=== PATIENT | female | born 1955 | race Caucasian/White ===

== ENCOUNTER 2017-10-19 19:18 | Observation (INO) | payer OTHER ==
[2017-10-19] MEDS ORDERED: ONDANSETRON 4 MG/2 ML VIAL ONE (19:51)
[2017-10-19] MEDS ORDERED: NA CHLORIDE 0.9% 500 ML ONE (19:51)
[2017-10-19] MEDS ORDERED: FENTANYL CITR 100 MCG/2 ML ONE (19:51)
[2017-10-19] MEDS ORDERED: NA CHLORIDE 0.9% 1,000 ML ONE (19:51)
[2017-10-19 19:58] LABS: Absolute Lymphocytes (CBC) 1.2 K/uL (0.7-4.9); Absolute Monocytes 0.6 K/uL (0.1-1.3); Absolute Neutrophil 6.7 K/uL (1.8-8.0); Basophils % 0.5 % (0-1.3); Eosinophils % 3.9 % (0-4.4); Hematocrit 38.3 % (36.0-45.0); MCH 30.2 pg (27.0-35.0); MPV 9.6 fL (7.6-11.3); Monocytes % 6.3 % (3.3-12.3); RBC Red Blood Cell Count 4.25 M/uL (3.86-4.86)
[2017-10-19 20:18] LABS: Albumin 3.4 g/dL (3.4-5.0); Bilirubin Direct 0.1 mg/dL (0-0.2); Bilirubin Total 0.5 mg/dL (0.2-1.0); Potassium 3.2 mmol/L (3.5-5.1)
--- NOTE | 2017-10-19 21:14 | RAD REPORT ---
EXAM DESCRIPTION: CT - Abdomen Pelvis Wo Contrast - 10/19/2017 9:06 pm CLINICAL HISTORY: Abdominal pain COMPARISON: None. TECHNIQUE: Axial [address] imaging of the abdomen and pelvis was performed without IV contrast. No IV contrast was given because of allergy, abnormal renal function, patient refusal or physician re quest. Oral contrast was given. All CT scans are performed using dose optimization technique as appropriate and may include automated exposure control or mA/KV adjustment according to patient size. FINDINGS: No suspicious findings in the lung bases. The liver, spleen and pancreas show no suspicious findings on non-contrast imaging. Gallbladder and b iliary tree are also without suspicious finding. No hydronephrosis or suspicious renal mass. No significant adrenal finding. Isodense renal masses an d pyelonephritis cannot be excluded in the absence of IV contrast. Partially filled urinary bladder s hows no suspicious finding. Patient gives history of pain related to urinary catheter. No catheter is visualized. Uterus and ovaries within normal limits. Lap band is in place. No dilated bowel loops or bowel wall thickening. No acute GI process seen. No f ree air, free fluid or inflammatory stranding. No hernia, mass or bulky lymphadenopathy. Pelvic floor laxity is present. No suspicious bony findings. IMPRESSION: Non-contrast enhanced CT abdomen and pelvis imaging show no significant or suspicious fi nding. Patient gives a history of urinary catheter related pain. No catheter is visible on this examination. Full assessment is limited is the absence of IV contrast.
[2017-10-19 22:32] LABS: Urine Amorphous Sediment 2+ /HPF (NONE SEEN); Urine Bacteria <20 /HPF (<20); Urine Culture Reflex Order REFLEXED; Urine RBC <5 /HPF (NONE SEEN)
[2017-10-19 22:34] LABS: Urine Blood 3+ (NEG); Urine Glucose NEGATIVE (NEG); Urine Protein 2+ (NEG); Urine Specific Gravity 1.015 (1.005-1.030); Urine pH 7.5 (5.0-7.0)
[2017-10-19] MEDS ORDERED: POTASSIUM 25 MEQ EFFERV TAB ONE (22:35)
--- NOTE | 2017-10-19 23:35 | EDPHYS ---
Physician Documentation [facility] Name: Jv Bryant Age: 62 yrs Sex: Female : 1955 Arrival Date: 10/19/2017 Time: 19:23 Bed 20 Private MD: ED Physician Elio Howard HPI: 10/19 19:35 This 62 yrs old Female presents to ER via EMS with complaints of Urinary cp Problem. 19:35 The patient presents with pelvic pain, that is located in/on the suprapubic area. cp 19:35 Onset: The symptoms/episode began/occurred today. Associated signs and symptoms: cp Pertinent positives: intermediate designer Pedroza in place, Pertinent negatives: constipation, diarrhea, fever, vomiting. Severity of symptoms: in the emergency department the symptoms are unchanged, despite home interventions. 19:35 Patient reports having recent UA by home health but unsure of results. cp Historical: - Allergies: 20:09 aloe vera; bs1 20:09 FLU VACCINE; bs1 20:09 peppers; bs1 20:09 Iodine; bs1 20:09 Betadine; bs1 20:09 Augmentin; bs1 20:09 Bactrim; bs1 20:09 Celery (Apium Graveolens) (Umbelliferae); bs1 20:09 Lincocin; bs1 20:09 mycin; bs1 20:09 Pneumovax 23; bs1 20:09 Sulfa (Sulfonamide Antibiotics); bs1 20:09 Rocephin; bs1 20:09 Stelazine; bs1 20:09 Vancomycin; bs1 - Home Meds: 20:09 vitamin B12 IM twice a month [Active]; Potassium Chloride Oral once daily [Active]; bs1 docusate sodium 100 mg Oral tab 2 tabs once daily for constipation [Active]; gabapentin 600 mg Oral tab 1 tab 2 times a day for Neuropathic Pain [Active]; lovastatin 20 mg Oral tab once daily [Active]; 20:09 aspirin 81 mg Oral chew 1 tab once daily [Active]; bs1 - PMHx: 20:09 Chronic pain; Fibromyalgia; lymphedema; PERIPHERAL NEUROPATHY; Arthritis; bs1 Hyperlipidemia; Hypertension; COPD; insomnia; heart disease- unspecified; frequent UTI's; unspecified kidney failure; - PSHx: 20:09 None; bs1 - Immunization history:: Adult Immunizations up to date. - Social history:: Smoking status: Patient/guardian denies using tobacco. - Ebola Screening: : Patient negative for fever greater than or equal to 101.5 degrees Fahrenheit, and additional compatible Ebola Virus Disease symptoms Patient denies exposure to infectious person. ROS: 19:40 Constitutional: Negative for fever, poor PO intake. cp 19:40 Eyes: Negative for injury, pain, redness, and discharge. cp 19:40 ENT: Negative for drainage from ear(s), ear pain, sore throat, difficulty swallowing, difficulty handling secretions. 19:40 Cardiovascular: Positive for edema, Negative for chest pain, palpitations. 19:40 Respiratory: Negative for cough, shortness of breath, wheezing. 19:40 Abdomen/GI: Negative for abdominal pain, vomiting, diarrhea, constipation, black/tarry stool, rectal bleeding. 19:40 : Positive for suprapubic pain. 19:40 Neuro: Negative for altered mental status, headache. 19:40 All other systems are negative. Exam: 19:47 Constitutional: The patient appears in no acute distress, alert, awake, cp non-diaphoretic, non-toxic, well developed, well nourished, uncomfortable, morbid obesity 19:47 Head/Face: Normocephalic, atraumatic. cp 19:47 Eyes: Periorbital structures: appear normal, Pupils: equal, round, and reactive to light and accomodation, Extraocular movements: intact throughout, Conjunctiva: normal, no exudate, no injection, Sclera: no appreciated abnormality, Lids and lashes: appear normal, bilaterally. 19:47 ENT: External ear(s): are unremarkable, Nose: is normal, Mouth: Lips: moist, Oral mucosa: moist, Posterior pharynx: is normal, airway is patent, no erythema, no exudate. 19:47 Chest/axilla: Inspection: normal, Palpation: is normal, no crepitus, no tenderness. 19:47 Cardiovascular: Rate: normal, Rhythm: regular, Edema: pedal edema, that is marked, ankle edema, that is marked. 19:47 Respiratory: the patient does not display signs of respiratory distress, Respirations: normal, no use of accessory muscles, no retractions, no splinting, no tachypnea, Breath sounds: are clear throughout, no decreased breath sounds, no stridor, no wheezing. 19:47 Abdomen/GI: Inspection: obese Bowel sounds: active, all quadrants, Palpation: soft, in all quadrants, severe abdominal tenderness, in the suprapubic area, rebound tenderness, is not appreciated, voluntary guarding, is elicited in the suprapubic area. 19:47 Skin: chronic wounds noted bilateral lower extremities with lymphedema, no streaking erythema noted, moderate drainage . 19:47 Neuro: Orientation: to person, place \T\ time. Mentation: lucid, able to follow commands. Vital Signs: 19:25 BP 153 / 81; Pulse 82; Resp 20; Temp 98(T); Pulse Ox 100% on R/A; Weight 145.15 kg; bs1 Height 5 ft. 4 in. (162.56 cm); Pain 10/10; 20:25 BP 137 / 99; Pulse 69; Resp 16; Pulse Ox 95% on R/A; bs1 21:25 BP 123 / 95; Pulse 75; Resp 15 S; Pulse Ox 100% ; bs1 22:25 BP 112 / 71; Pulse 87; Resp 16; Pulse Ox 98% on 2 lpm NC; bs1 23:25 BP 140 / 71; Pulse 79; Resp 16 S; Pulse Ox 98% on 2 lpm NC; bs1 08 00:00 BP 133 / 61; Pulse 82; Resp 16 S; Pulse Ox 99% on 2 lpm NC; bs1 00:23 BP 126 / 59; Pulse 74; Resp 16; Temp 98(T); Pulse Ox 98% on 2 lpm NC; Pain 4/10; bs1 10/19 19:25 Body Mass Index 54.93 (145.15 kg, 162.56 cm) bs1 MDM: 10/19 19:28 Patient medically screened. cp 20:00 Differential diagnosis: urinary tract infection, vaginosis, sepsis kidney stone. cp 23:10 Data reviewed: vital signs, nurses notes, lab test result(s), radiologic studies, CT cp scan. 23:10 Counseling: I had a detailed discussion with the patient and/or guardian regarding: the cp historical points, exam findings, and any diagnostic results supporting the discharge/admit diagnosis, lab results. Response to treatment: the patient's symptoms have markedly improved after treatment. 23:20 ED course: VSS. Family requesting patient be admitted for continued treatment. cp 08/ 19:29 Order name: Urine Microscopic Only; Complete Time: 22:50 cp 08/12 22:51 Interpretation: Normal except: UWBC 20-50; AMORPH 2+. cp 08/12 19:35 Order name: Amylase, Serum; Complete Time: 21:02 cp 08/12 19:35 Order name: Basic Metabolic Panel; Complete Time: 21:02 cp 08/12 21:03 Interpretation: Normal except: K 3.2; GLUC 110; GFR 63. cp 08/12 19:35 Order name: CBC with Diff; Complete Time: 21:02 cp 08/12 21:03 Interpretation: Normal except: RDW 15.9; SANTY% 75.3; LYM% 14.0. cp 08/12 19:35 Order name: Creatinine for Radiology; Complete Time: 21:02 cp 08/12 19:35 Order name: Hepatic Function; Complete Time: 21:02 cp 08/12 22:51 Interpretation: Normal except: GLOB 4.6; A/G 0.7. cp 08/12 19:35 Order name: Lipase; Complete Time: 21:02 cp 08/12 22:25 Order name: Urine Dipstick--Ancillary (enter results); Complete Time: 22:50 ms 08/ 22:51 Interpretation: Normal except: UBLD 3+; UPH 7.5; UPROT 2+; UESTR 3+. cp 08/12 22:33 Order name: Urine Culture EDMS 08 23:51 Order name: Basic Metabolic Panel EDMS 08 23:51 Order name: Basic Metabolic Panel EDKY 10/19 23:51 Order name: CBC with Automated Diff EDMS / 23:51 Order name: CBC with Automated Diff EDMS 08/12 19:29 Order name: Urine Dipstick-Ancillary (obtain specimen); Complete Time: 23:09 cp 08/12 19:35 Order name: IV Saline Lock; Complete Time: 19:52 cp 08/12 19:35 Order name: Labs collected and sent; Complete Time: 19:52 cp 08/12 19:35 Order name: Bladder Scanner: pre and post void; Complete Time: 19:51 cp 08/12 21:02 Order name: Abdomen ; Complete Time: 21:28 EDMS 08/12 23:51 Order name: [facility] 10/19 23:51 Order name: Consistent Carb (ADA) [address] EDKY Administered Medications: 20:28 Drug: fentaNYL (PF) 50 mcg Route: IVP; Site: right forearm; bs1 10/20 00:01 Follow up: Response: No adverse reaction bs1 10/19 20:28 Drug: Zofran 4 mg Route: IVP; Site: right forearm; bs1 10/20 00:01 Follow up: Response: No adverse reaction bs1 10/19 20:28 Drug: NS 0.9% 500 ml Route: IV; Rate: bolus; Site: right forearm; bs1 10/20 00:45 Follow up: IV Status: Completed infusion bs1 10/19 22:55 Drug: Potassium Effervescent Tablet 50 mEq Route: PO; bs1 10/20 00:01 Follow up: Response: No adverse reaction [facility] 10/19 22:56 Drug: NS 0.9% 1000 ml Route: IV; Rate: 100 ml/hr; Site: right forearm; bs1 10/20 00:45 Follow up: IV Status: Infusion continued upon admission bs1 10/19 23:48 Drug: Doxycycline 100 mg Route: PO; bs1 10/20 00:01 Follow up: Response: No adverse reaction 1 Disposition: 10/19/17 23:33 Hospitalization ordered by Teddy Mendenhall for Observation. Preliminary diagnosis are Urinary tract infection, site not specified, Chronic Wounds Lower Extremities. - Bed requested for Telemetry/MedSurg (observation). - Status is Observation. bs1 - Condition is Stable. - Problem is new. - Symptoms have improved. UTI on Admission? Yes Signatures: Dispatcher [employer] [facility] Taylor Dumont RN RN Pascual Gomez PA PA cp Salazar, Brittany RN RN bs1 Corrections: (The following items were deleted from the chart) 10/19 21:02 19:50 Abdomen Pelvis W Con+CT.RAD.BRZ ordered. [facility] 10/20 00:16 08 23:33 Hospitalization Ordered by Teddy Mendenhall MD for Observation. Preliminary diagnosis kl is Urinary tract infection, site not specified; Chronic Wounds Lower Extremities. Bed requested for Telemetry/MedSurg (observation). Status is Observation. Condition is Stable. Problem is new. Symptoms have improved. UTI on Admission? Yes. cp 10/20 00:46 00:16 10/19/2017 23:33 Hospitalization Ordered by A Za CHOU for Observation. bs1 Preliminary diagnosis is Urinary tract infection, site not specified; Chronic Wounds Lower Extremities. Bed requested for Telemetry/MedSurg (observation). Status is Observation. Condition is Stable. Problem is new. Symptoms have improved. UTI on Admission? Yes. kl
--- NOTE | 2017-10-19 23:35 | ER ---
Nurse's Notes [facility] Name: Jv Bryant Age: 62 yrs Sex: Female : 1955 Arrival Date: 10/19/2017 Time: 19:23 Bed 20 Private MD: Diagnosis: Urinary tract infection, site not specified;Chronic Wounds Lower Extremities Presentation: 10/19 19:23 Presenting complaint: EMS states: "Patient c/o pain where her urinary catheter is, bs1 states she went to see her Dr a week ago and they took cultures, patient c/o pain that became worse this afternoon.". Transition of care: patient was not received from another setting of care. Onset of symptoms was October 19, 2017. Risk Assessment: Do you want to hurt yourself or someone else? Patient reports no desire to harm self or others. Initial Sepsis Screen: Does the patient meet any 2 criteria? No. Patient's initial sepsis screen is negative. Does the patient have a suspected source of infection? Yes: Catheter related infection (Mariee/dialysis/PICC/central line). Care prior to arrival: None. 19:23 Method Of Arrival: EMS: [facility] bs1 19:23 Acuity: SKYLER 3 bs1 Historical: - Allergies: 20:09 aloe vera; bs1 20:09 FLU VACCINE; bs1 20:09 peppers; bs1 20:09 Iodine; bs1 20:09 Betadine; bs1 20:09 Augmentin; bs1 20:09 Bactrim; bs1 20:09 Celery (Apium Graveolens) (Umbelliferae); bs1 20:09 Lincocin; bs1 20:09 mycin; bs1 20:09 Pneumovax 23; bs1 20:09 Sulfa (Sulfonamide Antibiotics); bs1 20:09 Rocephin; bs1 20:09 Stelazine; bs1 20:09 Vancomycin; bs1 - Home Meds: 20:09 vitamin B12 IM twice a month [Active]; Potassium Chloride Oral once daily [Active]; bs1 docusate sodium 100 mg Oral tab 2 tabs once daily for constipation [Active]; gabapentin 600 mg Oral tab 1 tab 2 times a day for Neuropathic Pain [Active]; lovastatin 20 mg Oral tab once daily [Active]; 20:09 aspirin 81 mg Oral chew 1 tab once daily [Active]; bs1 - PMHx: 20:09 Chronic pain; Fibromyalgia; lymphedema; PERIPHERAL NEUROPATHY; Arthritis; bs1 Hyperlipidemia; Hypertension; COPD; insomnia; heart disease- unspecified; frequent UTI's; unspecified kidney failure; - PSHx: 20:09 None; bs1 - Immunization history:: Adult Immunizations up to date. - Social history:: Smoking status: Patient/guardian denies using tobacco. - Ebola Screening: : Patient negative for fever greater than or equal to 101.5 degrees Fahrenheit, and additional compatible Ebola Virus Disease symptoms Patient denies exposure to infectious person. Screenin:45 Abuse screen: Denies threats or abuse. Denies injuries from another. Nutritional bs1 screening: No deficits noted. Tuberculosis screening: No symptoms or risk factors identified. Fall Risk No fall in past 12 months (0 pts). No secondary diagnosis (0 pts). IV access (20 points). Ambulatory Aid- None/Bed Rest/Nurse Assist (0 pts). Gait- Weak (10 pts.). Mental Status- Oriented to own ability (0 pts). Total Garcia Fall Scale indicates Low Risk Score (25-44 pts). Assessment: 19:30 General: Appears in no apparent distress. uncomfortable, ill, obese, Behavior is bs1 cooperative, anxious, crying. Pain: Complains of pain in urethra area Pain does not radiate. Neuro: Level of Consciousness is awake, alert, obeys commands, Oriented to person, place, time, situation, Facial symmetry appears normal, Pupils are PERRLA. Cardiovascular: Denies chest pain, shortness of breath, Heart tones S1 S2 present Capillary refill < 3 seconds Patient's skin is warm and dry. Respiratory: Airway is patent Trachea midline Respiratory effort is even, unlabored, Respiratory pattern is regular, symmetrical, Breath sounds are clear bilaterally. GI: Reports nausea. : Mariee in place to gravity drainage Urine is cloudy, yellow, foamy, malodorous, w/ sediment Reports incontinence, pain in urethral area. EENT: No signs and/or symptoms were reported regarding the EENT system. Derm: Skin has skin tears on lower back Wound noted Other: right/left lower leg. Patients bilateral legs wrapped in kerlix, minimal draiange noted bilateral lower leg lymphedema. Musculoskeletal: Circulation, motion, and sensation intact. 20:00 Reassessment: verbal order from PA to remove mariee/replace. Removed previous mariee that bs1 was inserted by home health. Patient c/o severe pain in vaginal/urethral area. Removed 24cc NS from balloon to deflate. Patient tolerated. 20:35 Reassessment: Patients oxygen saturation dropped to 80% on room air after administering bs1 50mcg of fentanyl. Patient pale/lethargic. Administered 2L NC. NS fluids infusing. Patient arousable and communicating with nurse after administering oxygen. Oxygen sat went up to 96% on 2 L NC. 21:45 Reassessment: Patient appears in no apparent distress at this time. Patient and/or bs1 family updated on plan of care and expected duration. Pain level reassessed. Patient is alert, oriented x 3, equal unlabored respirations, skin warm/dry/pink. Informed patient and family of pending lab work/CT scan results. 22:15 Reassessment: Informed PA Page that family does not want him as the patients provider. bs1 Patient appears/states she is upset that she is not getting admitted due to the pain and "feeling this sick". Patient states "Oral antibiotics are not going to work to treat the UTI, I need IV antibiotics, I am hurting and I feel so sick, I cant go home like this." PA informed nurse that he will let Dr Howard take over the care and have him come and talk to the patient/family. 10/20 00:00 Reassessment: Redressed patients bilateral lower legs with abd pads/kerlix. tolerated bs1 well. Vital Signs: 10/19 19:25 BP 153 / 81; Pulse 82; Resp 20; Temp 98(T); Pulse Ox 100% on R/A; Weight 145.15 kg; bs1 Height 5 ft. 4 in. (162.56 cm); Pain 10/10; 20:25 BP 137 / 99; Pulse 69; Resp 16; Pulse Ox 95% on R/A; bs1 21:25 BP 123 / 95; Pulse 75; Resp 15 S; Pulse Ox 100% ; bs1 22:25 BP 112 / 71; Pulse 87; Resp 16; Pulse Ox 98% on 2 lpm NC; bs1 23:25 BP 140 / 71; Pulse 79; Resp 16 S; Pulse Ox 98% on 2 lpm NC; bs1 10/20 00:00 BP 133 / 61; Pulse 82; Resp 16 S; Pulse Ox 99% on 2 lpm NC; bs1 00:23 BP 126 / 59; Pulse 74; Resp 16; Temp 98(T); Pulse Ox 98% on 2 lpm NC; Pain 4/10; bs1 10/19 19:25 Body Mass Index 54.93 (145.15 kg, 162.56 cm) bs1 ED Course: 10/19 19:23 Patient arrived in ED. bs1 19:26 Pascual Merino PA is PHCP. cp 19:26 Elio Howard MD is Attending Physician. cp 19:26 Triage completed. bs1 19:30 Arm band placed on right wrist. bs1 19:45 Patient has correct armband on for positive identification. Placed in gown. Bed in low bs1 position. Call light in reach. Side rails up X 1. traffic monitor specialist on. Pulse ox on. NIBP on. 19:45 Warm blanket given. bs1 19:46 Inserted saline lock: 22 gauge in left antecubital area, using aseptic technique. Blood jb5 collected. 19:52 Amylase, Serum Sent. jb5 19:52 Basic Metabolic Panel Sent. jb5 19:52 CBC with Diff Sent. jb5 19:52 Creatinine for Radiology Sent. jb5 19:52 Hepatic Function Sent. jb5 19:52 Lipase Sent. jb5 19:58 Tanvi Frereira, RN is Primary Nurse. bs1 20:15 Inserted saline lock: 22 gauge in right forearm, using aseptic technique. bs1 20:15 IV discontinued, bleeding controlled, No redness/swelling at site. Pressure dressing bs1 applied. 21:05 CT completed. Patient moved to CT via stretcher. Patient moved back from CT. kw1 21:06 Abdomen In Process Unspecified. EDMS 22:10 Mariee cath inserted, using sterile technique, 20 Fr., by me, by ED staff, balloon fc inflated, to gravity drainage, other pt requested that we only place 22 ml of water in the 30 ml balloon. This was done. 23:31 Teddy Mendenhall MD is Hospitalizing Provider. cp 10/20 00:36 No provider procedures requiring assistance completed. Patient admitted, IV remains in bs1 place. intact. Administered Medications: 10/19 20:28 Drug: fentaNYL (PF) 50 mcg Route: IVP; Site: right forearm; bs1 10/20 00:01 Follow up: Response: No adverse reaction bs1 10/19 20:28 Drug: Zofran 4 mg Route: IVP; Site: right forearm; bs1 10/20 00:01 Follow up: Response: No adverse reaction bs1 10/19 20:28 Drug: NS 0.9% 500 ml Route: IV; Rate: bolus; Site: right forearm; bs1 10/20 00:45 Follow up: IV Status: Completed infusion bs1 10/19 22:55 Drug: Potassium Effervescent Tablet 50 mEq Route: PO; bs1 10/20 00:01 Follow up: Response: No adverse reaction bs1 10/19 22:56 Drug: NS 0.9% 1000 ml Route: IV; Rate: 100 ml/hr; Site: right forearm; bs1 10/20 00:45 Follow up: IV Status: Infusion continued upon admission bs1 10/19 23:48 Drug: Doxycycline 100 mg Route: PO; bs1 10/20 00:01 Follow up: Response: No adverse reaction bs1 Outcome: 10/19 23:33 Decision to Hospitalize by Provider. cp 10/20 00:37 Admitted to Tele accompanied by tech, via stretcher, room 401, with oxygen, with chart, bs1 Other on 2L NC Report called to Shweta Rhodes RN Condition: stable Instructed on the need for admit, Demonstrated understanding of instructions. 00:46 Patient left the ED. bs1 Signatures: Dispatcher [employer] EDMS Brianne Fabian RN RN Pascual Briones PA PA Martha Ricardo jb5 Taylor Booth kw1 Tanvi Ferreira RN RN bs1 Corrections: (The following items were deleted from the chart) 10/19 20:11 20:10 BP 153 / 81; Pulse 82bpm; Resp 20bpm; Pulse Ox 100% RA; 145.15 kg; Height 5 ft. 4 bs1 in.; BMI: 54.9; Pain 10/10; bs1 20:45 19:25 BP 153 / 81; Pulse 82bpm; Resp 20bpm; Pulse Ox 100% RA; 145.15 kg; Height 5 ft. 4 bs1 in.; BMI: 54.9; Pain 10/10; bs1 23:10 20:00 Reassessment: Removed previous mariee that was inserted by home health. Patient bs1 c/o severe pain in vaginal/urethral area. Removed 24cc NS from balloon to deflate. Patient tolerated bs1
[2017-10-19] MEDS ORDERED: DOXYCYCLINE 100 MG CAP PO ONE (23:38)
[2017-10-19] MEDS: NA CHLORIDE 0.9% 1,000 ML IV SCH (23:45)
[2017-10-19] MEDS ORDERED: ONDANSETRON 4 MG/2 ML VIAL IV PRN (23:47)
[2017-10-19] MEDS ORDERED: ACETAMINOPHEN 500 MG TAB PO PRN (23:47)
[2017-10-19] MEDS ORDERED: FENTANYL CITR 100 MCG/2 ML IV PRN (23:51)
[2017-10-20 01:24] VITALS: BMI 16.7
[2017-10-20 04:16] LABS: Absolute Lymphocytes (CBC) 1.1 K/uL (0.7-4.9); Absolute Monocytes 0.7 K/uL (0.1-1.3); Absolute Neutrophil 7.3 K/uL (1.8-8.0); Basophils % 0.4 % (0-1.3); Eosinophils % 3.2 % (0-4.4); Hematocrit 34.3 % (36.0-45.0); Lymphocytes % 11.8 % (15.3-44.8); MCH 29.9 pg (27.0-35.0); MCV 88.9 fL (80-100); MPV 9.9 fL (7.6-11.3); RBC Red Blood Cell Count 3.87 M/uL (3.86-4.86)
[2017-10-20 04:18] LABS: Potassium 3.9 mmol/L (3.5-5.1)
[2017-10-20 05:44] VITALS: O2SAT 94
[2017-10-20] MEDS: NA CHLORIDE 0.9% 1,000 ML IV SCH (07:33)
[2017-10-20] MEDS ORDERED: DOXYCYCLINE 100 MG CAP PO SCH (09:00)
[2017-10-20 14:10] VITALS: BP 119/66; TEMP 97.8
== END 2017-10-20 15:00 | disposition home or self-care (01) ==
LOC: ER 19:18 → ERHOLD 23:45 → 4TH 10-20 00:38 → OBSVTOIN 10-20 08:07 → INTOOBSV 10-20 08:07
PROVIDERS: ADMIT Internal Medicine; ATTEND Internal Medicine
DX: T83.518A Infection and inflammatory reaction due to other urinary catheter, initial encounter (principal); M79.7 Fibromyalgia; G89.29 Other chronic pain; I89.0 Lymphedema, not elsewhere classified; G62.9 Polyneuropathy, unspecified; I10 Essential (primary) hypertension; J44.9 Chronic obstructive pulmonary disease, unspecified; G47.00 Insomnia, unspecified; M19.90 Unspecified osteoarthritis, unspecified site; E66.01 Morbid (severe) obesity due to excess calories; Z68.43 Body mass index [BMI] 50.0-59.9, adult; E78.5 Hyperlipidemia, unspecified; Z88.1 Allergy status to other antibiotic agents; Z91.041 Radiographic dye allergy status; Z88.2 Allergy status to sulfonamides; Z88.7 Allergy status to serum and vaccine; Z88.8 Allergy status to other drugs, medicaments and biological substances; Z91.018 Allergy to other foods; Z79.82 Long term (current) use of aspirin; Z28.21 Immunization not carried out because of patient refusal
CPT/HCPCS: 36415; 51702; 74176; 80048 ×2; 80076; 82150; 83690; 85025 ×2; 87077; 87086; 87088; 87186; 96361; 96374; 96375; 99285; G0378 ×2; J2405; J3010; J7030 ×2; 81003; 81015

== ENCOUNTER 2017-11-04 16:50 | Inpatient (IN) | payer OTHER ==
[2017-11-04 19:42] LABS: Absolute Lymphocytes (CBC) 1.3 K/uL (0.7-4.9); Absolute Monocytes 0.5 K/uL (0.1-1.3); Basophils % 0.6 % (0-1.3); Eosinophils % 3.9 % (0-4.4); Hematocrit 38.1 % (36.0-45.0); Lymphocytes % 13.6 % (15.3-44.8); MCH 29.8 pg (27.0-35.0); MCV 90.2 fL (80-100); MPV 10.2 fL (7.6-11.3); RBC Red Blood Cell Count 4.22 M/uL (3.86-4.86)
[2017-11-04 20:13] LABS: Albumin 3.1 g/dL (3.4-5.0); Bilirubin Total 0.4 mg/dL (0.2-1.0); Potassium 3.4 mmol/L (3.5-5.1); Protein, Total 7.4 g/dL (6.4-8.2)
[2017-11-04] MEDS: ENOXAPARIN 30 MG/0.3 ML SQ SCH (21:00)
[2017-11-04] MEDS ORDERED: ENOXAPARIN 30 MG/0.3 ML SQ ONE (21:07)
--- NOTE | 2017-11-04 21:25 | ER ---
Nurse's Notes [facility] Name: Jv Bryant Age: 62 yrs Sex: Female : 1955 Arrival Date: 11/04/2017 Time: 16:52 Bed Direct Admit Private MD: Diagnosis: Urinary tract infection, site not specified Presentation: 11/04 16:52 Presenting complaint: Patient states: got a phone call from Dr. Mendenhall's office stating iw she needed to come to ER and be admitted to hospital for UTI, pt states she had urine culture done a few days ago. Transition of care: patient was not received from another setting of care. 16:52 Method Of Arrival: EMS: [facility] iw ED Course: 16:52 Patient arrived in ED. iw 21:23 Patrice Mendenhall MD is Hospitalizing Provider. bb Administered Medications: No medications were administered Outcome: 21:25 Decision to Hospitalize by Provider. bb 21:25 Patient left the ED. bb Signatures: Nusrat Emanuel RN RN bb Kylah Mcgregor RN RN iw
[2017-11-05] MEDS ORDERED: Meropenem 1000 MG/VIAL IV SCH (01:00)
[2017-11-05] MEDS ORDERED: POTASSIUM 25 MEQ EFFERV TAB PO ONE ×2 (01:12→09:00)
[2017-11-05] MEDS ORDERED: Meropenem 1 GM/100 ML BAG ONE (01:23)
[2017-11-05] MEDS: Meropenem 1,000 MG in NA CHLORIDE 0.9% 100 ML IV SCH ×3 (01:35→16:18)
--- NOTE | 2017-11-05 05:34 | HP ---
Date of Admission: 11/04/2017 Chief Complaint: Urinary tract infection. History Of Present Illness: This is a 62-year-old female patient with morbid obesity, lymphedema of both legs, chronic wound to her both lower extremities, has indwelling Mariee catheter for last year and a half to 2 years. The patient reports that she has no control over her bladder and because of this urinary incontinence, she is not able to control her bladder at all and due to swelling problem, she has to take Lasix and with that in mind, she was started on indwelling Mariee catheter about a year and a half to 2 years ago. I saw her for initial office visit on August 22, 2017, and she was in the hospital for urinary tract infection beginning of this month and then she just had another urinalysis, urine culture done this week and a urine culture result was available today and looking at the culture and sensitivity results and her multiple allergies to different antibiotics, today decision was made to admit her to the hospital for IV antibiotic therapy. I saw her in the emergency room this evening. Her son was present with her at bedside. She has bilateral chronic wound on both lower extremities due to lymphedema. I have instructed her on more than 1 occasion that she should [facility] care management as I am not able to guide and manage her wound care orders and in spite of my recommendation, she has so far not gone to [facility] and I did discuss this with her today again and she says because of financial reasons, she is not able to afford to do that. Medications: List reviewed. Review of Systems: Genitourinary: As mentioned above. Dermatology: As mentioned above. Cardiovascular: As mentioned above. All other systems reviewed and negative. Allergies: SHE IS ALLERGIC TO MULTIPLE DIFFERENT MEDICATIONS AND SOME OF WERE GAVE SIDE EFFECTS LIKE AUGMENTIN CAUSED DIARRHEA, ROCEPHIN CAUSED RENAL FAILURE , IODINE CAUSED RASH, LEVAQUIN CAUSED SKIN IRRITATION, LINCOMYCIN DETAILS UNKNOWN, PNEUMOCOCCAL VACCINE DETAILS UNKNOWN, LYRICA CAUSED WEIGHT GAIN, SULFA CAUSED SKIN IRRITATION, VANCOMYCIN CAUSED RENAL FAILURE. Social History: Negative for smoking or alcohol use. Family History: Significant for stroke, hypertension, and cardiovascular disease. Past Surgical History: Lap band surgery, , tonsillectomy. Past Medical History: Significant for fibromyalgia, anemia, hypokalemia, hypomagnesemia, urinary incontinence, lymphedema of legs, mixed hyperlipidemia, hypertension. Physical Examination: Vital Signs: Reviewed. General: Awake, alert, oriented, not in distress. HEENT: Head atraumatic, normocephalic. Conjunctivae nonerythematous. Sclerae white. Mouth, no thrush or edema noted. Ears/Nose, no mass, lesion, discharge noted. Neck: Supple. No JVD, lymph nodes, bruit, thyromegaly noted. Lungs: Bilateral good equal air entry. Clear to auscultation. No rhonchi. No rales. Heart: Normal heart sounds, no murmur or gallop. Abdomen: Soft, bowel sounds normal. No guarding, rigidity, tenderness, mass, hepatosplenomegaly, distention, or bruit noted. Extremities: The patient has chronic bilateral leg swelling, known pitting in nature and skin over lower extremity is nodular in appearance due to chronic lymphedema problem. The patient has dressing on both lower extremity due to chronic leg wounds. Skin: No rash, ulcer, cellulitis. Lymphatics: No lymph node enlargement in neck, supraclavicular, infraclavicular region. Neuro: No focal neurological deficit. Chest: Unremarkable. External Genitalia: Deferred. Rectal: Deferred. Laboratory Data: Urine culture and urinalysis: Urine culture grew Proteus mirabilis. Urinalysis was positive for nitrite and esterase, 20 to 50 bacteria and 20 to 50 WBC. Impression: 1. Urinary tract infection. 2. Urinary incontinence. 3. Indwelling Mariee catheter. 4. Lymphedema, legs. 5. Chronic leg wounds. 6. Hypertension. 7. Mixed hyperlipidemia. 8. Fibromyalgia. Plan: Admit the patient to hospital for further evaluation and management of this problem. The patient is appropriate for inpatient and is expected to spend 2 midnights in hospital. We will start her on IV meropenem. As per urine culture and sensitivity result, this particular bacteria is sensitive to multiple different antibiotics out of those only oral antibiotic that is sensitive to is Levaquin and the patient cannot take that. Rest of the antibiotics are IV and the patient is allergic to cephalosporin group, so we have 2 options amikacin and meropenem, so we will go ahead and start with meropenem. We will have to try to get a PICC line in place. I did talk to her about that and once we get the PICC line in, we will also have social work manager help us make arrangements for IV antibiotic therapy. The patient would prefer to go home and get IV antibiotic therapy at home. If we can arrange that then we should be able to send her home with IV antibiotic therapy and meropenem to be given for 7-10 days. If that is not possible, then for her to go to [facility] for short[facility]term stay. I did talk to her at great length about removing Mariee catheter, but the patient says that the whole reason to start with she ended up having catheter was because of her incontinence and she has to take Lasix to keep her swelling under control and she is just simply not able to do without Mariee catheter because of the incontinence issue and having to take Lasix. I did talk to her about seeing urologist to see if she would benefit from a suprapubic catheter or not. She is willing to consider that. I also talked to her that we will not be able to guide her wound care management treatment as I have informed her from very first time when I saw her and so far she has decided not to [facility], but she is willing to see somebody in the hospital and I did inform her that will have limited value unless she continues to see such physician on outpatient basis after discharge. I informed her that if she is not able to do that, then I will no longer be able to take care of her. She will have to talk to her insurance company and find out a physician who is willing to take care of her primary care provider as well as her wound care management. The patient informed me that she will talk to her insurance company regarding this. Her urinary tract infection is due to presence of her mariee catheter. KIMBERLI/MODL Voice ID: [id number] CRIS
[2017-11-05] MEDS: ASPIRIN EC 81 MG TAB PO SCH (09:00)
[2017-11-05] MEDS ORDERED: DOCUSATE NA 100 MG CAP PO SCH (09:00)
[2017-11-05] MEDS: ENOXAPARIN 30 MG/0.3 ML SQ SCH ×2 (09:02→20:32)
[2017-11-05] MEDS: FUROSEMIDE 40 MG TABLET PO SCH ×2 (09:02→16:18)
[2017-11-05] MEDS: HYDROCODONE/APAP 7.5/325 MG TAB PO SCH ×2 (13:46→20:33)
--- NOTE | 2017-11-05 13:53 | RAD REPORT ---
EXAM DESCRIPTION: RAD - Chest Single View - 11/05/2017 1:46 pm CLINICAL HISTORY: Picc line placement<Reason For Exam>Picc line placement COMPARISON: Chest Single View dated 12/16/2016 FINDINGS: Portable chest was obtained following placement of a left upper extremity PICC line. The c atheter tip is in the brachiocephalic SVC junction.
--- NOTE | 2017-11-05 14:43 | CON ---
Date of Consultation: 11/05/2017 Reason For Consultation: Lymphedema with weeping wounds. History Of Present Illness: The patient is a 62-year-old female with multiple medical problems and c hronic lymphedema both lower extremities with indwelling Pedroza catheter and developed a UTI, was admi tted for IV antibiotics and she is allergic to many antibiotics. She has been advised to follow up i [facility] as an outpatient. In the past, however, for financial reason, she has not gone t here. She is willing to have home health come and do a dressing changes and she is very particular a bout what kind of dressings she can tolerate and which she cannot tolerate. She has no purulent disc harges, weeping, seeping serous straw-colored fluid from some of the openings left side greater than the right. No fever or chills. Review of Systems: Otherwise unremarkable. Past Medical History: Significant for fibromyalgia, anemia, urinary incontinence, morbid obesity, hy pertension, hyperlipidemia, and lymphedema. Past Surgical History: Significant for lap band surgery, , tonsillectomy. Allergies: SHE IS ALLERGIC TO MULTIPLE ANTIBIOTICS INCLUDING AUGMENTIN, ROCEPHIN, LEVAQUIN, VANCOMYC IN, LYRICA, SULFA. Social History: She denies smoking or drinking. Family History: Significant for stroke, hypertension, and heart disease. Physical Examination: Vital Signs: Stable. She is afebrile. General: She is awake, alert, and oriented x3. Head and Neck: Cranial were 2 through 12 are grossly within normal limits. No neck masses. No JVD. Throat clear. Neck is supple. Chest: Clear. Heart: S1, S2. Abdomen: Soft. Extremity: The dorsalis pedis pulse is palpable, but slightly diminished because of the lymphedema. The lymphedema below the knee and towards the ankle and dorsum of the foot is very significant. The re is hyperkeratotic skin. There is seepage of serous and straw-colored fluid, the left side greater than the right side. However, there is no significant erythema or warmth. Laboratory Data: White count is 9.2, slight left shift. Chemistry reviewed. Assessment: A 62-year-old female with morbid obesity, bilateral lower extremity lymphedema with weep ing wounds and urinary tract infection. Recommendations: Antibiotics with the UTI. As far as wound care is concerned, I will have the wound care team come and evaluate the patient. We will have a discussion regarding what the best dressing orders the patient would be able to tolerate and discuss home health and wound care options, and als o, I have advised the patient that she does need to be seen in the [facility] upon discharge. Plan of care discussed in detail with Dr. Mendenhall and the patient. HELENE/MICHELLE Voice ID: [id number] Report ID: [id number]
[2017-11-05] MEDS: FLUOCINONIDE 0.05% CREAM 30GM TOP SCH (18:08)
[2017-11-05] MEDS: ATORVASTATIN 10 MG TAB PO SCH (20:32)
[2017-11-05] MEDS: DOCUSATE NA/SENNA CONC 1 TAB PO SCH (20:32)
[2017-11-05] MEDS: GABAPENTIN 300 MG CAP PO SCH (20:32)
[2017-11-05] MEDS: IBUPROFEN PO SCH (20:33)
[2017-11-05] MEDS: DIPHENHYDRAMINE CIT PO SCH (20:33)
--- NOTE | 2017-11-05 22:55 | PN ---
Date of Progress Note: 11/05/2017 Subjective: The patient was seen this morning for followup, lying in bed, not in any distress. No n ew complaints or problems reported by her. Objective: Vital Signs: Reviewed. HEENT: Unremarkable. Lungs: Clear to auscultation. Heart: Sounds normal. Abdomen: Soft. Bowel sounds normal. No guarding, rigidity, tenderness, or distention. Extremities: Leg edema remains unchanged. Impression: 1.Urinary tract infection. 2.Lymphedema, legs. 3.Chronic leg wounds. Plan: We will continue current antibiotics. Consultation was requested from Dr. Meredith, urologist, t o evaluate the patient to see if she would benefit from suprapubic catheter placement or not. Consul tation was also requested from Dr. Chen from General Surgery for wound care management and he did ev aluate and called me and informed me that he had seen the patient before for wound care management. The patient is not compliant, which I believe that she is not, and whatever the reason may be for her compliance issue, but definitely that is a problem and I have had discussion with her about importan ce of getting treatment [facility] on a regular basis, but so far, she has not done so. Dr. Chen also is going to recommend followup and treatment at the [facility] on an outpatien t basis. Social Service consultation was requested to help make arrangements for IV antibiotic and a PICC line was ordered. Possible discharge to go home tomorrow if all the arrangements get completed by tomorrow. KIMBERLI/MODL Voice ID: [id number] Report ID: [id number]
[2017-11-06] MEDS: Meropenem 1,000 MG in NA CHLORIDE 0.9% 100 ML IV SCH ×3 (02:01→16:26)
[2017-11-06 04:38] LABS: Potassium 3.5 mmol/L (3.5-5.1)
[2017-11-06] MEDS ORDERED: KCL 20 MEQ/100 mL IVPB 20 MEQ/100 ML BAG IV SCH (06:00)
[2017-11-06] MEDS ORDERED: POTASSIUM 25 MEQ EFFERV TAB PO ONE (07:53)
--- NOTE | 2017-11-06 08:23 | CON ---
History Of Present Illness: A 62-year-old female with morbid obesity, lymphedema of both legs, and with total urinary incontinence. she has an indwelling Pedroza catheter about 1-1/2 years, changing the catheter once a month. she is pretty much disabled from her lymphedema. The patient has chronic urinary problem with an overactive bladder and got a Pedroza placed by a physician in [place], [place]. The patient could not make to the bathroom in time. She said this was ordered by her primary at that time. She also had a history of CHF for which she takes diuretic with problems with polyuria. She has mutiple medication allergies and it is difficult to find an oral antibiotic to treat her UTIs when they occur. She also thinks the ureteral cath gets in the way of her pericare. She want to know if she is a good candidate for suprapubic tube. Past Medical History: Fibromyalgia, anemia, urinary incontinence with total incontinence, morbid obesity, hypertension, hyperlipidemia, severe elephantiasis bilateral lower extremity. Past Surgical History: Lap band surgery, , tonsillectomy. Allergies: TO MULTIPLE ANTIBIOTICS, AUGMENTIN, ROCEPHIN, LEVAQUIN, VANCOMYCIN, LYRICA, SULFA. Social History: Denies smoking or drinking. Family History: Significant for stroke, hypertension, and heart disease. Physical Examination: Vital Signs: She is afebrile, stable. General: Alert and oriented x3. and son are present in the room. HEENT: Atraumatic, normocephalic. Chest: Clear. Heart: S1, S2. Abdomen: Soft, obese. She has an abdominal fat that flaps down over the suprapubic area, very difficult to put a suprapubic below this, it would kink off, it is too low. EXTREMITIES: Very swollen, lymphedema bilaterally and tender. Laboratory: She had a urine culture that grew Proteus mirabilis sensitive to cefoxitin, cefotaxime, Levaquin, ceftriaxone, cefotetan, Timentin, cefepime, meropenem. Assessment: A lady with severe lymphedema, morbid obesity, total urinary incontinence, occasional urinary tract infection. She is a very poor candidate for suprapubic tube due to anatomy. There is not enough room above the pubic bone to place the cath. I believe the flap of abdominal fat would kink off the tube. Moreover, if the SP tube is placed I am concerned that the nurses may not be able replace it through the long track of fat it would have to traverse each time leading to false passages. Pulling the abdominal fat back upon replacement will deform the track thus leading to failure of replacement. This makes her very poor candidate for suprapubic tube. Best if she continue chronic Pedroza. I recommend 1% hydrocortisone cream for external irritation to help to soothe the area. She is plan to go home on IV meropenem for urinary tract infection. She will need probiotics after also. TOBIAS/MICHELLE Voice ID: [id number] Report ID: [id number] CRIS
[2017-11-06] MEDS: FUROSEMIDE 40 MG TABLET PO SCH ×2 (10:10→19:13)
[2017-11-06] MEDS: ASPIRIN EC 81 MG TAB PO SCH (10:10)
[2017-11-06] MEDS: HYDROCODONE/APAP 7.5/325 MG TAB PO SCH ×3 (10:11→21:55)
[2017-11-06] MEDS: ENOXAPARIN 30 MG/0.3 ML SQ SCH ×2 (10:14→21:54)
[2017-11-06] MEDS: HYDROCORTISONE 0.5% CREAM 30 GM TOP PRN (10:14)
[2017-11-06] MEDS: FLUOCINONIDE 0.05% CREAM 30GM TOP SCH (10:14)
[2017-11-06] MEDS: SODIUM CHL 0.9% IRR SOLN 2000 ML IRR PRN (16:26)
--- NOTE | 2017-11-06 19:09 | PN ---
Subjective: The patient had Pedroza clotted up last night possible with pus plug or stones. Nurse called to have it changed it at 5:00 a.m., 3-way catheter has just been placed now, 1 pm. Also, the suprapubic issue, she does not seem like a good candidate for suprapubic. I will get a second opinion from Dr. Curry next Friday. I spoke with Yu José in the office and the patient is to call and make an appointment to see Dr. Thomson next Friday to be evaluated for a complicated type of a suprapubic placement to see if it is able, like to give her another chance. TOBIAS/MICHELLE Voice ID: [id number] Report ID: [id number] MTDD
[2017-11-06] MEDS: DIPHENHYDRAMINE CIT PO SCH (21:00)
[2017-11-06] MEDS: IBUPROFEN PO SCH (21:00)
[2017-11-06] MEDS: GABAPENTIN 300 MG CAP PO SCH (21:54)
[2017-11-06] MEDS: DOCUSATE NA/SENNA CONC 1 TAB PO SCH (21:55)
[2017-11-06] MEDS: ATORVASTATIN 10 MG TAB PO SCH (21:58)
[2017-11-07] MEDS: Meropenem 1,000 MG in NA CHLORIDE 0.9% 100 ML IV SCH ×3 (01:01→18:10)
[2017-11-07] MEDS: SODIUM CHL 0.9% IRR SOLN 2000 ML IRR PRN ×3 (01:02→23:30)
--- NOTE | 2017-11-07 02:41 | PN ---
Date of Progress Note: 11/06/2017 Subjective: The patient was seen this morning for followup. She was lying in bed, not in any distre ss. She was complaining of bladder spasm. Her Pedroza catheter was removed as per order from Dr. Con canseco this morning. She has lot of urinary sediments and that is causing blockage in the catheter and [facility] had to flush her Pedroza catheter and after flushing she did obtain some thick debris and then 400 cc of urine was obtained immediately. This was last night. This morning after Pedroza catheter was re moved, Dr. Meredith has ordered 3-way catheter with bladder irrigation orders. Objective: Vital Signs: Reviewed. HEENT: Unremarkable. Lungs: Clear to auscultation. Heart: Sounds normal. Abdomen: Soft. Bowel sounds normal. No guarding, rigidity, tenderness, or distention. Extremities: Bilateral leg lymphedema unchanged. Impression: 1.Urinary tract infection. 2.Lymphedema. 3.Chronic leg wounds. 4.Indwelling Pedroza catheter. Plan: After I saw the patient, our original plan was to discharge her to go home as from the [facility] ever since the time of admission when we started discussing about place for IV antibiotic whether to receive it at home or care home. The patient was refusing to go to care home and wanted to go home, so Social Service was making arrangements for her to get IV antibiotics at home and we were hoping to get that arrangements completed today and we were planning to discharge her to go home, but this afternoon nurse notified me that the patient now has changed her mind and she wants to go to [facility], so Social Service will assist with care home placement. Once that arrangement gets co mpleted, the patient can be discharged to go to care home. Upon discharge to go to care home, she should receive IV meropenem at current dose for 1 week. The patient should continue wound care d ressing changes and orders per Dr. Chen and Pedroza catheter care and order per Dr. Meredith and follow u p with both of these physicians on an outpatient basis per their instructions. Followup with Dr. Tima díaz [facility]. Starting tomorrow, the patient's care will be taken over by hospitalist in my absence and I have discussed details with hospitalist, Dr. Wallace. KIMBERLI/MODL Voice ID: [id number] Report ID: [id number]
[2017-11-07 06:45] LABS: Potassium 3.5 mmol/L (3.5-5.1)
[2017-11-07] MEDS ORDERED: POTASSIUM 25 MEQ EFFERV TAB PO ONE (07:42)
[2017-11-07] MEDS: HYDROCORTISONE 0.5% CREAM 30 GM TOP PRN (09:32)
[2017-11-07] MEDS: HYDROCODONE/APAP 7.5/325 MG TAB PO SCH ×2 (09:32→14:34)
[2017-11-07] MEDS: ASPIRIN EC 81 MG TAB PO SCH (09:32)
[2017-11-07] MEDS: FUROSEMIDE 40 MG TABLET PO SCH ×2 (09:33→18:06)
[2017-11-07] MEDS: FLUOCINONIDE 0.05% CREAM 30GM TOP SCH (09:34)
[2017-11-07] MEDS: ENOXAPARIN 30 MG/0.3 ML SQ SCH ×2 (09:35→20:47)
--- NOTE | 2017-11-07 12:28 | RAD REPORT ---
EXAM DESCRIPTION: MRI - Pelvis W/Wo Cont - 11/07/2017 11:54 am CLINICAL HISTORY: Pelvic pain, infection COMPARISON: No comparisons FINDINGS: A Pedroza catheter is in place decompressing the urinary bladder. No abnormal fluid collecti on is seen along urethra to suggest urethral abscess. No pelvic mass or fluid collections. No bulky lymphadenopathy seen. Small uterine fibroids are suspec hammad. No pathologic areas of enhancement to suggest tumor or infection. IMPRESSION: No evidence of urethral abscess.
--- NOTE | 2017-11-07 17:06 | P.PN ---
Subjective Date of Service: 11/07/17 Primary Care Provider: Dr. Mendenhall Chief Complaint: UTI Patient seen and examined at bedside with RN. Chart reviewed. Currently has no complaints to offer overnight. Awaiting skilled nursing placement at this time. Urology recommends 2nd opinion with Dr. Curry. Will await further recommendations at this time. Review of Systems 10-point ROS is otherwise unremarkable Physical Examination - Vital Signs Temperature: 98.3 F Blood Pressure: 103/45 Pulse: 62 Respirations: 18 Pulse Ox (%): 93 - Physical Exam General: Alert, In no apparent distress HEENT: Atraumatic, PERRLA, EOMI Neck: Supple, JVD not distended Respiratory: Clear to auscultation bilaterally, Normal air movement Cardiovascular: Regular rate/rhythm, Normal S1 S2 Gastrointestinal: Normal bowel sounds, No tenderness Musculoskeletal: No tenderness Integumentary: No rashes Neurological: Normal speech, Normal tone, Normal affect Lymphatics: No axilla or inguinal lymphadenopathy - Studies Medications List Reviewed: Yes Assessment And Plan - Current Problems (Diagnosis) (1) UTI (urinary tract infection) Onset Date: 11/05/17 Current Visit: Yes Status: Acute Plan: UTI on UA. -culture positive for Proteus -patient with severe allergic reaction to several antibiotics. Currently on IV meropenem. -was set up to go home at yesterday with IV antibiotics and home health to do IV infusion however patient stated that she would like to go to the skilled nursing and thus currently awaiting skilled nursing placement and acceptance. -Patient with history of recurrent UTI as well, neurology on board recommend 2nd opinion with Dr. Curry. Patient will be seen by him on Friday morning. Qualifiers: Urinary tract infection type: acute cystitis Hematuria presence: without hematuria Qualified Code(s): N30.00 - Acute cystitis without hematuria (2) Fibromyalgia Onset Date: 05/26/14 Current Visit: No Status: Chronic (3) Lymphedema Onset Date: 05/25/14 Current Visit: No Status: Chronic (4) Peripheral neuropathy Onset Date: 08/21/15 Current Visit: No Status: Chronic Qualifiers: (5) COPD (chronic obstructive pulmonary disease) Current Visit: No Status: Chronic Qualifiers: (6) Morbid obesity Current Visit: No Status: Chronic (7) Obesity (BMI 30-39.9) Onset Date: 05/25/14 Current Visit: No Status: Chronic - Plan Currently awaiting clinical improvement. Pending placement. Pending evaluation by Dr. Curry from urology. Discharge Plan: Home Plan to discharge in: 48 Hours - Code Status/Comfort Care Code Status Assessed: Yes Critical Care: No
--- NOTE | 2017-11-07 17:18 | PN ---
Subjective: The patient says she is in pain and felt nausea. Objective: Vital Signs: Afebrile. Stable. Laboratory Data: Stable. Ordered MRI today of the pelvis to rule out a periurethral abscess. MRI is negative. No abscess see n. No inflammation seen. Her urine is running clear with the CBI. Continue doing that and consult Dr. Shah next Friday when he is in town to evaluate if she can have a suprapubic at all, get a se cond opinion in that for her. We will keep her n.p.o. after midnight on Friday. TOBIAS/MICHELLE Voice ID: [id number] Report ID: [id number]
[2017-11-07] MEDS: DOCUSATE NA/SENNA CONC 1 TAB PO SCH (20:47)
[2017-11-07] MEDS: IBUPROFEN PO SCH (20:47)
[2017-11-07] MEDS: DIPHENHYDRAMINE CIT PO SCH (20:47)
[2017-11-07] MEDS: ATORVASTATIN 10 MG TAB PO SCH (20:47)
[2017-11-07] MEDS: GABAPENTIN 300 MG CAP PO SCH (20:47)
[2017-11-08] MEDS: Meropenem 1,000 MG in NA CHLORIDE 0.9% 100 ML IV SCH ×3 (00:09→17:56)
[2017-11-08 06:25] LABS: Magnesium 2.1 mg/dL (1.8-2.4); Potassium 3.5 mmol/L (3.5-5.1)
[2017-11-08] MEDS ORDERED: POTASSIUM 25 MEQ EFFERV TAB PO ONE (06:27)
[2017-11-08] MEDS: HYDROCODONE/APAP 7.5/325 MG TAB PO PRN ×2 (07:31→21:53)
[2017-11-08] MEDS: FLUOCINONIDE 0.05% CREAM 30GM TOP SCH (09:00)
[2017-11-08] MEDS: FUROSEMIDE 40 MG TABLET PO SCH ×2 (09:00→17:56)
[2017-11-08] MEDS: ASPIRIN EC 81 MG TAB PO SCH (09:00)
[2017-11-08] MEDS: ENOXAPARIN 30 MG/0.3 ML SQ SCH ×2 (09:15→21:51)
--- NOTE | 2017-11-08 11:43 | P.PN ---
Subjective Date of Service: 11/08/17 Primary Care Provider: Dr. Mendenhall Chief Complaint: UTI Patient seen and examined at bedside with RN. Chart reviewed. Currently has no complaints to offer overnight. Awaiting [facility] placement at this time. Urology recommends 2nd opinion with Dr. Curry. Will await further recommendations at this time. Review of Systems 10-point ROS is otherwise unremarkable Physical Examination - Vital Signs Temperature: 98.0 F Blood Pressure: 115/66 Pulse: 66 Respirations: 16 Pulse Ox (%): 94 - Physical Exam General: Alert, In no apparent distress HEENT: Atraumatic, PERRLA, EOMI Neck: Supple, JVD not distended Respiratory: Clear to auscultation bilaterally, Normal air movement Cardiovascular: Regular rate/rhythm, Normal S1 S2 Gastrointestinal: Normal bowel sounds, No tenderness Musculoskeletal: No tenderness Integumentary: Skin breakdown, Skin lesion, Tenderness/swelling, Erythema, Warmth Neurological: Normal speech, Normal tone, Normal affect Lymphatics: Other - Studies Medications List Reviewed: Yes Assessment And Plan - Current Problems (Diagnosis) (1) UTI (urinary tract infection) Onset Date: 11/05/17 Current Visit: Yes Status: Acute Plan: UTI on UA. -culture positive for Proteus -patient with severe allergic reaction to several antibiotics. Currently on IV meropenem. -was set up to go home with IV antibiotics and home health to do IV infusion however patient stated that she would like to go to the [facility] and thus currently awaiting [facility] placement and acceptance. -Patient with history of recurrent UTI as well, neurology on board recommend 2nd opinion with Dr. Curry. Patient will be seen by him on Friday morning. Qualifiers: Urinary tract infection type: acute cystitis Hematuria presence: without hematuria Qualified Code(s): N30.00 - Acute cystitis without hematuria (2) Fibromyalgia Onset Date: 05/26/14 Current Visit: No Status: Chronic (3) Lymphedema Onset Date: 05/25/14 Current Visit: No Status: Chronic (4) Peripheral neuropathy Onset Date: 08/21/15 Current Visit: No Status: Chronic Qualifiers: (5) COPD (chronic obstructive pulmonary disease) Current Visit: No Status: Chronic Qualifiers: COPD type: chronic bronchitis Chronic bronchitis type: unspecified Qualified Code(s): J42 - Unspecified chronic bronchitis (6) Morbid obesity Current Visit: No Status: Chronic (7) Obesity (BMI 30-39.9) Onset Date: 05/25/14 Current Visit: No Status: Chronic - Plan Currently awaiting clinical improvement. Pending placement. Pending evaluation by Dr. Curry from urology. Discharge Plan: [facility] Plan to discharge in: 48 Hours - Code Status/Comfort Care Code Status Assessed: Yes Critical Care: No
[2017-11-08] MEDS: SODIUM CHL 0.9% IRR SOLN 2000 ML IRR PRN ×2 (12:30→17:59)
--- NOTE | 2017-11-08 14:42 | PN ---
Subjective: The patient is doing well today. She was able to get up and walk to the bathroom, passe d some more junky material in the urine through the 3 way catheter. Has been irrigating fine, looking pretty clear. Objective: Vital Signs: She is afebrile, stable. Intake 2000, output 3800. Assessment: Resistant urinary tract infection. The patient has multiple allergies. She is on IV me ropenem. She is requesting a suprapubic tube. She seems like a poor candidate to me due to the body habitus. Her MRI was negative for any urethral abscesses. We will like to get a second opinion wit wilfred Curry on Friday, see if it possible to have suprapubic tube in her. We may keep her n.p.o. o vernight midnight just in case she decides to do it. TOBIAS/MICHELLE Voice ID: [id number] Report ID: [id number]
[2017-11-08] MEDS: IBUPROFEN PO SCH (21:00)
[2017-11-08] MEDS: DIPHENHYDRAMINE CIT PO SCH (21:00)
[2017-11-08] MEDS: DOCUSATE NA/SENNA CONC 1 TAB PO SCH (21:51)
[2017-11-08] MEDS: GABAPENTIN 300 MG CAP PO SCH (21:51)
[2017-11-08] MEDS: ATORVASTATIN 10 MG TAB PO SCH (21:51)
[2017-11-09] MEDS: Meropenem 1,000 MG in NA CHLORIDE 0.9% 100 ML IV SCH ×3 (01:26→16:53)
[2017-11-09] MEDS: SODIUM CHL 0.9% IRR SOLN 2000 ML IRR PRN ×3 (02:56→22:06)
[2017-11-09 05:59] LABS: Potassium 3.5 mmol/L (3.5-5.1)
[2017-11-09] MEDS ORDERED: POTASSIUM CL SA 10 MEQ TAB PO ONE (06:07)
[2017-11-09] MEDS: FLUOCINONIDE 0.05% CREAM 30GM TOP SCH ×3 (09:00→21:17)
[2017-11-09] MEDS: ENOXAPARIN 30 MG/0.3 ML SQ SCH ×2 (09:42→21:16)
[2017-11-09] MEDS: ASPIRIN EC 81 MG TAB PO SCH (09:43)
[2017-11-09] MEDS: FUROSEMIDE 40 MG TABLET PO SCH ×2 (09:43→16:53)
--- NOTE | 2017-11-09 11:21 | P.PN ---
Subjective Date of Service: 11/09/17 Primary Care Provider: Dr. Mendenhall Chief Complaint: UTI Patient seen and examined at bedside with RN. Chart reviewed. Currently has no complaints to offer overnight. Awaiting retirement placement at this time. Urology recommends 2nd opinion with Dr. Curry. Will await further recommendations at this time. Review of Systems 10-point ROS is otherwise unremarkable Physical Examination - Vital Signs Temperature: 97.1 F Blood Pressure: 116/49 Pulse: 59 Respirations: 20 Pulse Ox (%): 93 - Physical Exam General: Alert, In no apparent distress HEENT: Atraumatic, PERRLA, EOMI Neck: Supple, JVD not distended Respiratory: Clear to auscultation bilaterally, Normal air movement Cardiovascular: Regular rate/rhythm, Normal S1 S2 Gastrointestinal: Normal bowel sounds, No tenderness Musculoskeletal: Swelling, Erythema, Tenderness, Warmth, Other (Bilateral lower leg lymphedema noted.) Integumentary: Skin breakdown Neurological: Normal speech, Normal tone, Normal affect Lymphatics: No axilla or inguinal lymphadenopathy - Studies Medications List Reviewed: Yes Assessment And Plan - Current Problems (Diagnosis) (1) UTI (urinary tract infection) Onset Date: 11/05/17 Current Visit: Yes Status: Acute Plan: UTI on UA. -culture positive for Proteus -patient with severe allergic reaction to several antibiotics. Currently on IV meropenem. -currently awaiting retirement placement and acceptance for IV antibiotics. -Patient with history of recurrent UTI as well, urology on board recommend 2nd opinion with Dr. Curry. Patient will be seen by him on Friday morning. Qualifiers: Urinary tract infection type: acute cystitis Hematuria presence: without hematuria Qualified Code(s): N30.00 - Acute cystitis without hematuria (2) Fibromyalgia Onset Date: 05/26/14 Current Visit: No Status: Chronic (3) Lymphedema Onset Date: 05/25/14 Current Visit: No Status: Chronic (4) Peripheral neuropathy Onset Date: 08/21/15 Current Visit: No Status: Chronic Qualifiers: (5) COPD (chronic obstructive pulmonary disease) Current Visit: No Status: Chronic Qualifiers: COPD type: chronic bronchitis Chronic bronchitis type: unspecified Qualified Code(s): J42 - Unspecified chronic bronchitis (6) Morbid obesity Current Visit: No Status: Chronic (7) Obesity (BMI 30-39.9) Onset Date: 05/25/14 Current Visit: No Status: Chronic - Plan Currently awaiting clinical improvement. Pending placement. Pending evaluation by Dr. Curry from urology. Discharge Plan: Alf Plan to discharge in: 48 Hours - Code Status/Comfort Care Code Status Assessed: Yes Critical Care: No
[2017-11-09] MEDS: HYDROCODONE/APAP 7.5/325 MG TAB PO PRN ×2 (14:36→23:56)
[2017-11-09] MEDS: IBUPROFEN PO SCH (21:00)
[2017-11-09] MEDS ORDERED: FUROSEMIDE 40 MG TABLET PO SCH (21:00)
[2017-11-09] MEDS ORDERED: GABAPENTIN 100 MG CAP PO SCH (21:00)
[2017-11-09] MEDS: DIPHENHYDRAMINE CIT PO SCH (21:00)
[2017-11-09] MEDS: ATORVASTATIN 10 MG TAB PO SCH (21:16)
[2017-11-09] MEDS: DOCUSATE NA/SENNA CONC 1 TAB PO SCH (21:16)
[2017-11-09] MEDS: GABAPENTIN 300 MG CAP PO SCH (21:16)
[2017-11-10] MEDS: Meropenem 1,000 MG in NA CHLORIDE 0.9% 100 ML IV SCH ×4 (00:01→23:59)
[2017-11-10 03:07] VITALS: BMI 57.4
[2017-11-10 05:35] LABS: Magnesium 2.1 mg/dL (1.8-2.4); Potassium 3.6 mmol/L (3.5-5.1)
[2017-11-10] MEDS ORDERED: POTASSIUM CL SA 10 MEQ TAB PO ONE (05:44)
[2017-11-10 07:11] LABS: Absolute Lymphocytes (CBC) 1.4 K/uL (0.7-4.9); Absolute Monocytes 0.7 K/uL (0.1-1.3); Absolute Neutrophil 4.9 K/uL (1.8-8.0); Basophils % 0.9 % (0-1.3); Eosinophils % 5.9 % (0-4.4); Hematocrit 34.6 % (36.0-45.0); MCH 30.4 pg (27.0-35.0); MPV 9.9 fL (7.6-11.3); Monocytes % 8.8 % (3.3-12.3); RBC Red Blood Cell Count 3.89 M/uL (3.86-4.86)
[2017-11-10] MEDS ORDERED: HOME MED 1 EA UNK (Lovastatin [Lovastatin] 20 MG) PO SCH (09:00)
[2017-11-10] MEDS: ENOXAPARIN 30 MG/0.3 ML SQ SCH ×2 (09:00→20:40)
[2017-11-10] MEDS ORDERED: ASPIRIN 81 MG CHEWABLE TABLET PO SCH (09:00)
[2017-11-10] MEDS: ASPIRIN EC 81 MG TAB PO SCH (09:00)
[2017-11-10] MEDS: HYDROCODONE/APAP 7.5/325 MG TAB PO PRN ×2 (09:46→23:57)
[2017-11-10] MEDS: FUROSEMIDE 40 MG TABLET PO SCH ×2 (09:47→17:16)
--- NOTE | 2017-11-10 11:32 | PN ---
Date of Progress Note: 11/10/2017 Subjective: The patient was seen this morning for followup. No new complaints or problems reported by her. She has a 3-way catheter present with continuous bladder irrigation per Dr. Meredith. Intake a nd output records reviewed. Objective: Vital Signs: Reviewed. HEENT: Unremarkable. Lungs: Clear to auscultation. Heart: Sounds normal. Abdomen: Soft. Bowel sounds normal. No guarding, rigidity, tenderness, or distention. Extremities: Bilateral leg showing lymphedema and dressing present over both lower legs from chronic leg wounds. Three-way catheter present with clear looking urine in the bag. Laboratory Data: White count 7.5, hemoglobin 11.8, platelets 199. Sodium 132, potassium 3.6, chlori de 104, bicarb 31, BUN 13, creatinine 0.70, glucose 88, magnesium 2.1. Impression: 1.Urinary tract infection. 2.Lymphedema. 3.Chronic leg wounds secondary to lymphedema. 4.Hypertension. 5.Morbid obesity. 6.Anemia. Plan: We will continue current IV antibiotics which is meropenem. Today is day #7 on her antibiotic . Our original plan was to give IV antibiotic for a total of 7-10 days. Initially, the patient was thinking about going home, but as of or Friday of last week, she changed her decision and in stead of going home she requested to make arrangements for her to go to [facility] for IV antibioti c therapy. Considering today is day #7 and we still do not have any approval from insurance company for her to go to [facility] for IV antibiotic therapy and her intention is only to go there for the duration of IV antibiotic therapy, I do not see any need for her to go to [facility] and what we w ill do is we are waiting on Urology consultation from Dr. Curry as per request from Dr. Meredith to [facility] for second opinion on suprapubic catheter placement and once we get that opinion, then our plan is to discharge her to go home and we will remove PICC line prior to discharge. Details were discus sed with the patient. I will see her tomorrow for followup. MRI of the pelvis was done last week an d it was normal. KIMBERLI/MODL Voice ID: [id number] Report ID: [id number]
[2017-11-10] MEDS: GABAPENTIN 300 MG CAP PO SCH (20:38)
[2017-11-10] MEDS: DOCUSATE NA/SENNA CONC 1 TAB PO SCH (20:38)
[2017-11-10] MEDS: ATORVASTATIN 10 MG TAB PO SCH (20:39)
[2017-11-10] MEDS: FLUOCINONIDE 0.05% CREAM 30GM TOP SCH (20:39)
[2017-11-10] MEDS: IBUPROFEN PO SCH (20:40)
[2017-11-10] MEDS: DIPHENHYDRAMINE CIT PO SCH (20:40)
[2017-11-11] MEDS: SODIUM CHL 0.9% IRR SOLN 2000 ML IRR PRN ×3 (05:41→18:36)
[2017-11-11 05:52] LABS: Potassium 3.6 mmol/L (3.5-5.1)
[2017-11-11] MEDS: ENOXAPARIN 30 MG/0.3 ML SQ SCH ×2 (08:30→22:06)
[2017-11-11] MEDS: ASPIRIN EC 81 MG TAB PO SCH (08:30)
[2017-11-11] MEDS: FUROSEMIDE 40 MG TABLET PO SCH ×2 (08:38→16:43)
[2017-11-11] MEDS: Meropenem 1,000 MG in NA CHLORIDE 0.9% 100 ML IV SCH ×2 (08:39→16:43)
[2017-11-11] MEDS: HYDROCODONE/APAP 7.5/325 MG TAB PO PRN ×2 (08:43→18:14)
--- NOTE | 2017-11-11 08:46 | PN ---
Subjective: The patient is doing well. Objective: Vital Signs: 97.6, pulse 69, respiration 18, BP 121/55, sats 93%. I's and O's: She took in 3000 in, 4200 out, -400. Assessment: Urinary incontinence requiring Pedroza catheter, chronic urinary tract infection. Currently on IV meropenem for Klebsiella pneumoniae. The patient has multiple allergies. The patient is seeking a suprapubic tube placement for chronic urinary tract infection and also pericare issues. Consulted Dr. Curry today for second opinion about a suprapubic tube placement. My concern is going to be the placement and changes through a large amount of abdominal fat with possible false passages could be developed in the fat track. So we will get a second opinion from Dr. Curry and see what he thinks. I will go ahead and make her n.p.o. Her aspirin was stopped several days ago and Lovenox will be stopped today and should be made n.p.o. overnight just in case Dr. Curry wants to do the case. TOBIAS/MICHELLE Voice ID: [id number] Report ID: [id number] MTDD
[2017-11-11] MEDS: SODIUM CHLORIDE 0.9% 10ML INJ IV SCH ×2 (09:00→22:08)
[2017-11-11] MEDS ORDERED: POTASSIUM CL SA 10 MEQ TAB PO ONE (09:00)
[2017-11-11] MEDS: FLUOCINONIDE 0.05% CREAM 30GM TOP SCH (12:21)
--- NOTE | 2017-11-11 15:42 | RAD REPORT ---
EXAM DESCRIPTION: CT - Pelvis Wo Cont - 11/11/2017 3:25 pm CLINICAL HISTORY: Urinary tract infection, evaluation of patient for suprapubic catheter placement COMPARISON: MRI pelvis November 07, CT abdomen October 19 TECHNIQUE: Patient had an indwelling Pedroza catheter with continuous bladder flush. Outflow tract was clamped. Approximately 250 mL of saline filled the urinary bladder. Axial 5 millimeter thick images were obtained. An additional 250 milliliters was placed with axial 5 millimeter thick images obtained . Approximately 200 additional cc were placed in the bladder. Axial 5 millimeter thick images were ob tained. Sagittal reconstruction images were generated as well. FINDINGS: Pedroza catheter is present in the urinary bladder. Small amount of air is present related t he catheter placement. No bladder wall thickening or mass. On the final bladder filling acquisition t he dome of the bladder extends approximately 7 mm superior to the pubic symphysis. No bowel wall or o ther anatomic structure is interposed between the well filled urinary bladder in the lower anterior a bdominal wall. No mass or hematoma in the abdominal wall. Small bowel loops and the tortuous and redundant sigmoid colon are displaced anterior and superior to the dome of the bladder. Uterus and ovaries show no suspicious findings. There are no acute bowel findings. No free fluid is s een. No mass or bulky lymphadenopathy. IMPRESSION: Well filled urinary bladder displaces small bowel and sigmoid colon anterior and superio r to the dome. In the filled state, no bowel or other anatomic structure interposed between the urinary bladder and the lower anterior abdominal wall at the pubic symphysis.
--- NOTE | 2017-11-11 17:58 | PN ---
Subjective: The patient is doing well. Awaiting consultation by Dr. Curry, second opinion today. Objective: Afebrile. Stable. Laboratory Data: Labs stable from yesterday. Assessment: She is about postop day 7 for her IV meropenem. Plan: Plan is to go ahead and discontinue the 3-way catheter prior to discharge and replace with a regular 18 Fr. The patient will finish her IV therapy and she can follow up with Dr. Curry. She wants to try SP catheter. TOBIAS/MICHELLE Voice ID: [id number] Report ID: [id number] MTDD
[2017-11-11] MEDS: IBUPROFEN PO SCH (21:00)
[2017-11-11] MEDS: DIPHENHYDRAMINE CIT PO SCH (21:00)
[2017-11-11] MEDS: DOCUSATE NA/SENNA CONC 1 TAB PO SCH (22:06)
[2017-11-11] MEDS: GABAPENTIN 300 MG CAP PO SCH (22:06)
[2017-11-11] MEDS: ATORVASTATIN 10 MG TAB PO SCH (22:07)
[2017-11-12] MEDS: Meropenem 1,000 MG in NA CHLORIDE 0.9% 100 ML IV SCH ×2 (01:12→09:17)
--- NOTE | 2017-11-12 01:25 | PN ---
Date of Progress Note: 11/11/2017 Subjective: The patient was seen this morning for followup. She was in the bed, not in any distress . Denies any new complaints. She was n.p.o., waiting for her evaluation by Dr. Curry this morning when I saw her. Objective: HEENT: Unremarkable. Lungs: Clear to auscultation. Cardiac: Heart sounds normal. Abdomen: Soft. Bowel sounds normal. No guarding, rigidity, tenderness, or distention. Extremities: Bilateral chronic lymphedema and dressing present over lower legs on both sides. Laboratory Data: Sodium 141, potassium 3.6, chloride 105, bicarb 32, BUN 12, creatinine 0.70, glucos e 92. Impression: 1.Urinary tract infection. 2.Morbid obesity. 3.Lymphedema, legs. Plan: We will continue current medications. Continue meropenem. Dr. Curry is going to evaluate he r today to see if she is a candidate for suprapubic catheter placement or not. The patient was kept n.p.o. by him for that reason. In case if he plans to do surgery, then he may end up doing it today. I did request outreach and education social worker to notify the patient's home health agency to restart her home health c are upon discharge with possibility of discharge tomorrow and also outreach and education social worker was asked to cancel [facility] facility placement as she will no longer need to go there because the duration of antibiotic therapy will be completed by the t black she goes home from the hospital. KIMBERLI/MODL Voice ID: [id number] Report ID: [id number]
[2017-11-12 06:12] LABS: Magnesium 2.3 mg/dL (1.8-2.4); Potassium 3.4 mmol/L (3.5-5.1)
[2017-11-12] MEDS ORDERED: POTASSIUM CL SA 10 MEQ TAB PO ONE (06:32)
[2017-11-12] MEDS: SODIUM CHL 0.9% IRR SOLN 2000 ML IRR PRN (06:46)
[2017-11-12] MEDS: HYDROCODONE/APAP 7.5/325 MG TAB PO PRN (08:01)
[2017-11-12] MEDS: FUROSEMIDE 40 MG TABLET PO SCH (09:17)
[2017-11-12] MEDS: ASPIRIN EC 81 MG TAB PO SCH (09:18)
[2017-11-12] MEDS: ENOXAPARIN 30 MG/0.3 ML SQ SCH (09:18)
[2017-11-12] MEDS: SODIUM CHLORIDE 0.9% 10ML INJ IV SCH (09:19)
[2017-11-12 12:02] VITALS: O2SAT 96
[2017-11-12] MEDS: HYDROCORTISONE 0.5% CREAM 30 GM TOP PRN (12:12)
[2017-11-12] MEDS ORDERED: LIDOCAINE 4% TOP SOLUTION TOP ONE (14:49)
[2017-11-12 17:50] VITALS: BP 120/68; TEMP 98.9
--- NOTE | 2017-11-13 02:03 | DS ---
Date of Discharge: 11/12/2017 Disposition: The patient will be discharged to go home. Physical Examination: HEENT: Unremarkable. Lungs: Clear to auscultation. Heart: Sounds normal. Abdomen: Soft. Bowel sounds normal. No guarding, rigidity, tenderness, or distention. Extremities: Bilateral lymphedema of legs. Skin: The patient has pink color rash in groin area. Labs: Her white count when she came in was 9.2, hemoglobin 12.6, platelets 193. Last chemistry toda y sodium 142, potassium 3.4, chloride 105, bicarb 32, BUN 14, creatinine 0.70, glucose 108. Hospital Course: A 62-year-old morbidly obese female patient has an indwelling Pedroza catheter, came into hospital with urinary tract infection problem. Please see dictated H and P for more information . After patient was evaluated, she was admitted to the hospital for IV antibiotics, using meropenem. This antibiotic was started. PICC line was ordered which was placed. When I first started talking to the patient about the choice of location where she wanted to get antibiotics home versus long term, she was refusing to go to long term and informed me that she would go home with home health and home IV antibiotics. So, after we placed a PICC line, Social Service started working on getting antibiotics for home, and once all those arrangements were completed, our plan was to discharge her t o go home with home IV antibiotics, and actually on the day of discharge, she changed her mind and pancho canseco decided to go to long term instead of going home. By that time, it was later part of the week week on or Friday and then because of the long weekend, we could not discharge her to go to long term and obviously we were waiting for insurance approval for her to go to skilled nursin g facility, which was initiated last week, so this patient decided to go to long term. She has co mpleted her duration of antibiotic therapy in the hospital, so there is absolutely no reason for her to go to long term because she was planning to go there just for IV antibiotic therapy and she has received 7 days of IV antibiotic therapy, today is day #8. I did consult urologist, Dr. Meredith to e if the patient would benefit from suprapubic catheter placement, considering her recurrent urinary tract infection problem and he requested Dr. Curry to evaluate to see whether he would consider such procedure or not, and Dr. Curry and Dr. Meredith have discussed details with each other and as Dr. Andrey cook has informed me as per my discussion with him today that Dr. Curry will consider to place such a suprapubic catheter, but he comes to [place] only once a month or so, so whenever he is planning to come next time, he can coordinate the surgery with Dr. Meredith and both of them can plan that proce dure. Dr. Meredith removed Pedroza catheter and placed a 3-way catheter and bladder irrigation was provid ed per Dr. Meredith's instruction and today he has instructed to remove 3-way catheter, put 18-Amharic Fo aida catheter back and then discharge patient with outpatient followup at his office. Dr. Chen was c onsulted from General Surgery to evaluate her chronic leg wounds due to lymphedema and he has ordered specific wound care management orders. I have informed the patient during this hospitalization and even on outpatient basis that I do not take care of wound care management and she will need to follow up with Dr. Chen at [facility] for her wound care management problem. The patient was to ld that if she cannot follow up with him for whatever reason or if she does not want to, then she anabela l need to find another physician in place of me who will be willing to take care of her including her wound care management, as I do not take care of wound care and I have instructed her during this hos pitalization as well as today. I have also written order for nursing staff and Social Service to con tact the patient's home health agency to resume her care upon discharge. Final Diagnoses: 1.Urinary tract infection. 2.Urinary incontinence. 3.Indwelling Pedroza catheter. 4.Lymphedema, legs. 5.Chronic leg wounds. 6.Hypertension. 7.Mixed hyperlipidemia. 8.Fibromyalgia. Discharge Medications And Instructions: 1.Continue all prior home medications. 2.Follow up with Dr. Meredith in 1 to 2 weeks. 3.Follow up at my office per scheduled appointment. 4.Home health nurse to provide wound care dressing changes as per instruction from Dr. Chen. 5.Follow up with Dr. Chen at [facility] per his instruction. KIMBERLI/MODL Voice ID: [id number] Report ID: [id number]
== END 2017-11-12 17:00 | disposition home health service (06) | DRG 690 ==
LOC: ER 16:50 → ERHOLD 16:56 → 4TH 19:53
PROVIDERS: ADMIT Internal Medicine; ATTEND Internal Medicine
PROC: 02HV33Z Insertion of Infusion Device into Superior Vena Cava, Percutaneous Approach (ICD-10-PCS; principal; 2017-11-05)
DX: N30.00 Acute cystitis without hematuria (principal); Z68.43 Body mass index [BMI] 50.0-59.9, adult; I10 Essential (primary) hypertension; E78.2 Mixed hyperlipidemia; M79.7 Fibromyalgia; E66.01 Morbid (severe) obesity due to excess calories; B96.4 Proteus (mirabilis) (morganii) as the cause of diseases classified elsewhere; B96.1 Klebsiella pneumoniae [K. pneumoniae] as the cause of diseases classified elsewhere; G62.9 Polyneuropathy, unspecified; N39.498 Other specified urinary incontinence; J44.9 Chronic obstructive pulmonary disease, unspecified; I89.0 Lymphedema, not elsewhere classified; Z88.1 Allergy status to other antibiotic agents; Z91.041 Radiographic dye allergy status; Z88.2 Allergy status to sulfonamides; Z88.7 Allergy status to serum and vaccine; Z88.8 Allergy status to other drugs, medicaments and biological substances; Z91.018 Allergy to other foods; Z98.84 Bariatric surgery status
CPT/HCPCS: 36415; 71045; 72192; 72197; 80048; 80053; 83735; 84132; 85025; A9577; J1650; J2185

== ENCOUNTER 2017-12-15 11:31 | Inpatient (IN) | payer OTHER ==
[2017-12-15 12:48] VITALS: BMI 61.1
[2017-12-15] MEDS ORDERED: Meropenem 1,000 MG in NA CHLORIDE 0.9% 100 ML IV SCH (13:00)
[2017-12-15 13:13] LABS: Absolute Lymphocytes (CBC) 1.3 K/uL (0.7-4.9); Absolute Monocytes 0.6 K/uL (0.1-1.3); Absolute Neutrophil 6.4 K/uL (1.8-8.0); Basophils % 0.6 % (0-1.3); Eosinophils % 4.5 % (0-4.4); Hematocrit 35.5 % (36.0-45.0); Lymphocytes % 14.7 % (15.3-44.8); MCH 30.3 pg (27.0-35.0); MCV 89.9 fL (80-100); MPV 9.1 fL (7.6-11.3); RBC Red Blood Cell Count 3.95 M/uL (3.86-4.86)
[2017-12-15 13:23] LABS: Protime INR 0.97
[2017-12-15] MEDS ORDERED: EMOLLIENT BASE TOP PRN (13:23)
[2017-12-15] MEDS ORDERED: FLUOCINONIDE TOP PRN (13:23)
[2017-12-15] MEDS ORDERED: NYSTATIN 100MU/GM CREAM 15GM TOP PRN (13:23)
[2017-12-15 13:34] LABS: Albumin 2.8 g/dL (3.4-5.0); Bilirubin Total 0.3 mg/dL (0.2-1.0); Potassium 3.4 mmol/L (3.5-5.1); Protein, Total 6.6 g/dL (6.4-8.2)
--- NOTE | 2017-12-15 14:14 | RAD REPORT ---
EXAM DESCRIPTION: RAD - Chest Single View - 12/15/2017 2:08 pm CLINICAL HISTORY: Preop chest, pending suprapubic catheter placement COMPARISON: November 05 TECHNIQUE: AP portable chest image was obtained 1354 hour . FINDINGS: Is lung volumes are decreased relative to the comparison study. No peripheral mass or cons olidation. Significant failure or volume overload are not suspected. Patient has chronic interstitial lung disease not clearly different over this relatively short interval. Heart and vasculature are no rmal. No measurable pleural effusion and no pneumothorax. No gross bony abnormality seen. No acute ao rtic findings suspected. IMPRESSION: No acute cardiopulmonary process. Above detailed chest findings are similar to comparison.
[2017-12-15] MEDS: FUROSEMIDE 40 MG TABLET PO SCH ×2 (14:42→21:12)
[2017-12-15] MEDS: POTASSIUM CL SA 10 MEQ TAB PO SCH (14:42)
[2017-12-15] MEDS: HYDROCODONE/APAP 7.5/325 MG TAB PO PRN ×2 (14:42→23:50)
[2017-12-15] MEDS ORDERED: Meropenem 1000 MG/VIAL IV SCH (17:00)
--- NOTE | 2017-12-15 17:42 | EKG ---
Test Date: 2017-12-15 Test Time: 12:56:47 Dealership Manager: ERICA MEASUREMENT RESULTS: Intervals: Rate: 71 [place]: 162 QRSD: 90 QT: 390 QTc: 423 [place]: P: 64 [place]: 162 QRS: 67 T: 37 INTERPRETIVE STATEMENTS: Normal sinus rhythm Low voltage QRS Borderline ECG Compared to ECG 12/11/2016 15:49:13 No significant changes Electronically Signed On 12-15-17 17:41:43 CDT by Jatinder Dodd
[2017-12-15] MEDS ORDERED: DIPHENHYDRAMINE HCL PO SCH (21:00)
[2017-12-15] MEDS ORDERED: HOME MED 1 EA UNK (Lovastatin [Lovastatin] 1 TAB) PO SCH (21:00)
[2017-12-15] MEDS: GABAPENTIN 300 MG CAP PO SCH (21:12)
[2017-12-15] MEDS: ATORVASTATIN 10 MG TAB PO SCH (21:12)
[2017-12-15] MEDS: DIPHENHYDRAMINE 25 MG TAB/CAP PO SCH (21:12)
[2017-12-15] MEDS: DOCUSATE NA/SENNA CONC 1 TAB PO PRN (21:14)
[2017-12-15] MEDS: D5 0.9 NS 1,000 ML IV SCH (22:06)
[2017-12-15] MEDS ORDERED: POTASSIUM 25 MEQ EFFERV TAB PO ONE ×2 (23:47)
[2017-12-16] MEDS: Meropenem 1,000 MG in NA CHLORIDE 0.9% 100 ML IV SCH ×3 (00:32→18:22)
[2017-12-16 01:17] LABS: Urine Appearance CLOUDY; Urine Bilirubin NEGATIVE (NEG); Urine Blood 1+ (NEG); Urine Color YELLOW; Urine Glucose NEGATIVE (NEG); Urine Protein NEGATIVE (NEG); Urine Specific Gravity <=1.005 (1.005-1.030); Urine Urobilinogen 0.2 mg/dL (0.2-1.0)
[2017-12-16 02:03] LABS: Urine Microscopic Reflex ORDER UMIC
[2017-12-16 02:18] LABS: Urine Bacteria 20-50 /HPF (<20); Urine Culture Reflex Order REFLEXED
[2017-12-16 02:19] LABS: Urine Amorphous Sediment 3+ /HPF (NONE SEEN)
--- NOTE | 2017-12-16 04:48 | HP ---
Date of Admission: 12/15/2017 Chief Complaint: Urinary tract infection. History Of Present Illness: This is a 62-year-old female patient who has indwelling Pedroza catheter a nd as a result of that she gets recurrent urinary tract infection. She was recently in the hospital last month, and during that time, she was evaluated by urologist, Dr. Meredith and Dr. Curry to see whe ther she would benefit of suprapubic catheter placement or not, and Dr. Curry has recommended suprap ubic catheter placement for her. I was contacted by Dr. Curry's nurse practitioner requesting admdora garcia to the hospital 24 hours prior to him doing surgery for IV antibiotic therapy as the patient's u rine culture done about a week ago on outpatient basis by Dr. Curry has grown Proteus, it is sensiti ve to multiple different antibiotics, but the patient is allergic to all those antibiotics, so we anabela l have to give IV meropenem and recommendation from Dr. Curry today. Arrangements were made for sher buenrostro to be admitted to the hospital directly and IV antibiotic was started, and Dr. Curry is planzane cortez to do surgery tomorrow. I saw the patient this evening. Medications: List reviewed. Review of Systems: Genitourinary: As mentioned above. Dermatology: She has chronic leg wounds with chronic lymphedema of both legs. All other systems reviewed and negative. Allergies: SHE IS ALLERGIC TO MULTIPLE DIFFERENT MEDICATIONS AND SOME OF THEM ARE SIDE EFFECTS, SOME OF THEM ARE ALLERGIC REACTION AND MEDICATION INCLUDES AUGMENTIN CAUSING DIARRHEA, ROCEPHIN CAUSING R ENAL FAILURE, IODINE CAUSING RASH, LEVAQUIN CAUSING SKIN IRRITATION, LINCOMYCIN DETAILS UNKNOWN. PNE UMOCOCCAL VACCINE, DETAILS UNKNOWN. LYRICA CAUSING WEIGHT GAIN. SULFA CAUSING SKIN IRRITATION. VAN COMYCIN CAUSING RENAL FAILURE. Social History: Negative for smoking and alcohol use. Family History: Significant for stroke, hypertension, cardiovascular disease. Past Surgical History: Significant for , tonsillectomy, lap band surgery. Past Medical History: Significant for fibromyalgia, anemia, hypokalemia, hypomagnesemia, urinary inc ontinence, lymphedema of legs, mixed hyperlipidemia, hypertension, chronic leg wounds due to lymphede ma, recurrent urinary tract infection due to Pedroza catheter. Physical Examination: Vital Signs: Temperature 98.4, pulse 72, respiratory rate 20, blood pressure 113/55, oxygen saturati on 93%. Height 5 feet 4 inches, weight 356 pounds. General: Awake, alert, oriented, not in distress. HEENT: Head atraumatic, normocephalic. Conjunctivae nonerythematous. Sclerae white. Mouth, no thr ush or edema noted. Ears/Nose, no mass, lesion, discharge noted. Neck: Supple. No JVD, lymph nodes, bruit, thyromegaly noted. Lungs: Bilateral good equal air entry. Clear to auscultation. No rhonchi. No rales. Heart: Normal heart sounds, no murmur or gallop. Abdomen: Morbidly obese, pendulous abdomen. No guarding, rigidity, tenderness, distention. Extremities: The patient has lymphedema of both lower extremities with dressing present over both le gs. Skin: No rash, ulcer, cellulitis. Lymphatics: No lymph node enlargement in neck, supraclavicular, infraclavicular region. Neuro: No focal neurological deficit. Chest: Unremarkable. External Genitalia: Deferred. Rectal: Deferred. Laboratory Data: White count 8.8, hemoglobin 12, platelets 229. Sodium 143, potassium 3.4, chloride 104, bicarb 32, BUN 8, creatinine 0.80, glucose 111. Liver function tests unremarkable. PT/PTT nor mal. Chest x-ray, no acute cardiopulmonary changes. EKG, normal sinus rhythm, no acute ST-T changes . Impression: 1.Urinary tract infection. 2.Urinary incontinence. 3.Indwelling Pedroza catheter. 4.Lymphedema, legs. 5.Chronic leg wounds. 6.Hypertension. 7.Mixed hyperlipidemia. 8.Fibromyalgia. Plan: Admit the patient to hospital for further evaluation and management of this problem. The kalani ent is appropriate for inpatient and is expected to spend 2 midnights in hospital. Home medications will be continued. We will consult Dr. Curry, who is planning to do surgery tomorrow. Keep the pat ient n.p.o. after midnight. Culture specific antibiotic meropenem will be started. The patient's ur inary culture from last month had grown Proteus and culture and sensitivity results reviewed. I will see her tomorrow for followup. KIMBERLI/MODL Voice ID: [id number]
[2017-12-16 07:03] LABS: Potassium 3.4 mmol/L (3.5-5.1)
[2017-12-16] MEDS: KCL 20 MEQ/100 mL IVPB 20 MEQ/100 ML BAG IV SCH ×2 (07:39→09:12)
[2017-12-16] MEDS ORDERED: Ringers Lactate 1,000 ML IV ONE ×2 (08:45→11:37)
[2017-12-16] MEDS: FUROSEMIDE 40 MG TABLET PO SCH ×2 (09:00→22:22)
[2017-12-16] MEDS ORDERED: FAMOTIDINE 20 MG/2 ML VIAL IV ONE (10:40)
[2017-12-16] MEDS: MEPERIDINE HCL 50 MG/ML AMP ONE ×3 (12:03→12:23)
[2017-12-16] MEDS: D5 0.9 NS 1,000 ML IV SCH (13:32)
[2017-12-16] MEDS: HYDROCODONE/APAP 7.5/325 MG TAB PO PRN ×2 (13:32→22:24)
[2017-12-16] MEDS: POTASSIUM CL SA 10 MEQ TAB PO SCH (13:33)
[2017-12-16] MEDS: GABAPENTIN 300 MG CAP PO SCH (22:23)
[2017-12-16] MEDS: DIPHENHYDRAMINE 25 MG TAB/CAP PO SCH (22:23)
[2017-12-16] MEDS: ATORVASTATIN 10 MG TAB PO SCH (22:23)
[2017-12-16] MEDS: DOCUSATE NA/SENNA CONC 1 TAB PO PRN (22:24)
--- NOTE | 2017-12-16 23:36 | PN ---
Date of Progress Note: 12/16/2017 Subjective: Patient was seen this morning for followup. She was lying in bed, not in distress. She was complaining of some pain with IV infusion of potassium replacement this morning. Otherwise, no new complaints or problems reported overnight. Objective: Vital Signs: Reviewed. HEENT: Unremarkable. Lungs: Clear to auscultation. Heart: Sounds normal. Abdomen: Soft. Bowel sounds normal. No guarding, rigidity, tenderness, distention. Extremities: Bilateral lymphedema unchanged. Laboratory Data: Potassium 3.4 this morning and magnesium 2. Assessment: 1.Urinary tract infection. 2.Urinary incontinence. 3.Hypokalemia. 4.Lymphedema, legs. Plan: Continue current IV antibiotic. Replace potassium per protocol. The patient was n.p.o. this morning for suprapubic catheter placement surgery to be done by Dr. Curry today. I will see her dontrell orrow for followup. Plan is to discharge her to go home whenever Dr. Curry determines her stable fo r discharge. KIMBERLI/MODL Voice ID: [id number] Report ID: [id number]
[2017-12-17] MEDS: Meropenem 1,000 MG in NA CHLORIDE 0.9% 100 ML IV SCH ×3 (00:14→17:05)
[2017-12-17] MEDS: D5 0.9 NS 1,000 ML IV SCH ×2 (00:15→12:27)
[2017-12-17] MEDS ORDERED: FLEET ENEMA ADULT PR ONE (07:00)
--- NOTE | 2017-12-17 09:17 | RAD REPORT ---
EXAM DESCRIPTION: RAD - Urography Retrograde - 12/16/2017 12:51 pm CLINICAL HISTORY: Abdominal pain. FINDINGS: Five fluoroscopic films are submitted. Fluoroscopy time 19 seconds. The examination was performed by Dr. Crury. Portioins of the ureters, pyelocaliceal structures and bladder are opacified with contrast. Please refer to Dr. Curry's report for additional findings.
[2017-12-17] MEDS: HYDROCODONE/APAP 7.5/325 MG TAB PO PRN ×2 (10:50→19:26)
[2017-12-17] MEDS: FUROSEMIDE 40 MG TABLET PO SCH ×2 (10:52→20:43)
[2017-12-17] MEDS: POTASSIUM CL SA 10 MEQ TAB PO SCH (10:56)
[2017-12-17] MEDS: ALBUTEROL 2.5 MG/3 ML NEB SOL NEB SCH ×2 (14:15→19:56)
[2017-12-17] MEDS: DIPHENHYDRAMINE 25 MG TAB/CAP PO SCH (20:44)
[2017-12-17] MEDS: GABAPENTIN 300 MG CAP PO SCH (20:44)
[2017-12-17] MEDS: ATORVASTATIN 10 MG TAB PO SCH (20:44)
[2017-12-17] MEDS: DOCUSATE NA/SENNA CONC 1 TAB PO PRN (20:44)
--- NOTE | 2017-12-17 23:34 | PN ---
Date of Progress Note: 12/17/2017 Subjective: The patient was seen this morning for followup, lying in bed, not in distress. No new c omplaints or problems reported. She had suprapubic catheter placement yesterday by Dr. Curry. Objective: Vital signs: Reviewed. HEENT: Unremarkable. Lungs: Clear to auscultation. No rhonchi or rales. Heart: Sounds normal. Abdomen: Soft. Bowel sounds normal. No guarding, rigidity, tenderness, distention. Extremities: Bilateral lymphedema of legs unchanged. Laboratory Data: Reviewed. Impression: 1.Urinary tract infection. 2.Urinary incontinence. 3.Status post suprapubic catheter placement. 4.Lymphedema, legs. 5.Chronic leg wounds. Plan: [facility] dressing changes as the pa tieanderson says her dressing needs to be changed and normally it gets changed by home health nurses. Dr. Curry, his nurse practitioner has released the patient to go home from her point of view per Dr. Darlyn mjeia was planning to discharge her today, but this afternoon the patient developed some wheezing. Her IV fluid was discontinued, nebulizer treatment was started. We will monitor her today and possible discharge to go home tomorrow. KIMBERLI/MODL Voice ID: [id number] Report ID: [id number]
[2017-12-18] MEDS: Meropenem 1,000 MG in NA CHLORIDE 0.9% 100 ML IV SCH ×2 (01:08→09:04)
[2017-12-18] MEDS: ALBUTEROL 2.5 MG/3 ML NEB SOL NEB SCH ×3 (01:45→13:44)
[2017-12-18] MEDS: HYDROCODONE/APAP 7.5/325 MG TAB PO PRN ×2 (03:29→11:28)
[2017-12-18] MEDS ORDERED: NA CHLORIDE 0.9% 250 ML ONE (08:12)
[2017-12-18] MEDS: POTASSIUM CL SA 10 MEQ TAB PO SCH (09:13)
[2017-12-18] MEDS: FUROSEMIDE 40 MG TABLET PO SCH (09:13)
[2017-12-18 13:08] VITALS: O2SAT 90
[2017-12-18 14:29] VITALS: BP 114/55; TEMP 97.6
--- NOTE | 2017-12-19 05:56 | DS ---
Date of Discharge: 12/18/2017 The patient was seen this morning for followup. No new complaints or problems reported by her. Lying in bed, not in distress. Physical Examination: Vital Signs: Reviewed. HEENT: Unremarkable. Lungs: Clear to auscultation. Heart: Sounds normal. Abdomen: Soft, bowel sounds normal. No guarding, rigidity, tenderness, distention. Extremities: Bilateral leg lymphedema present. Hospital Course: A 62-year-old female patient who was admitted to the hospital on Friday. Please see dictated H and P for more information. The patient was started on IV meropenem on the basis of her urine culture results that was done by urologist on outpatient basis, and urologist requested and recommended admission to the hospital for at least 24 hours for IV antibiotics prior to her suprapubic catheter placement. Procedure was done on Friday and the patient did well during and after procedure. IV antibiotic was also continued during this hospitalization, which was meropenem. Overall, her condition has remained otherwise stable and today she was discharged to go home in stable condition with above-mentioned medication and instructions. Yesterday, the patient had some wheezing, and albuterol nebulizer treatment was started. Her wheezing has resolved when I saw her today, and she informs me that she has Spiriva inhaler at home, but she is not using it, and I have advised her to use type of Spiriva inhaler on a daily basis at least for 1 week, and she was also advised to use albuterol inhaler on an as-needed basis, and prescription was given for that. Discharge Medications: Continue all prior home medications. Followup Instructions: 1. Follow with Dr. Curry in 3-4 weeks per his instruction. 2. Follow up at my office per scheduled appointment. Discharge Diagnoses: 1. Urinary tract infection. 2. Urinary incontinence. 3. Status post suprapubic catheter placement. 4. Lymphedema, legs. 5. Chronic leg wounds. 6. Morbid obesity. 7. Hypertension. 8. Mixed hyperlipidemia. 9. Fibromyalgia. KIMBERLI/MODL Voice ID: [id number] Report ID: [id number] CRIS
== END 2017-12-18 16:13 | disposition home health service (06) | DRG 699 ==
LOC: 2ND 11:47
PROVIDERS: ADMIT Internal Medicine; ATTEND Internal Medicine
PROC: 0T9B80Z Drainage of Bladder with Drainage Device, Via Natural or Artificial Opening Endoscopic (ICD-10-PCS; principal; 2017-12-16 09:30)
DX: T83.518A Infection and inflammatory reaction due to other urinary catheter, initial encounter (principal); L97.929 Non-pressure chronic ulcer of unspecified part of left lower leg with unspecified severity; L97.919 Non-pressure chronic ulcer of unspecified part of right lower leg with unspecified severity; Y84.6 Urinary catheterization as the cause of abnormal reaction of the patient, or of later complication, without mention of misadventure at the time of the procedure; Y92.89 Other specified places as the place of occurrence of the external cause; R32 Unspecified urinary incontinence; R06.2 Wheezing; I89.0 Lymphedema, not elsewhere classified; E66.01 Morbid (severe) obesity due to excess calories; I10 Essential (primary) hypertension; E78.2 Mixed hyperlipidemia; M79.7 Fibromyalgia; E87.6 Hypokalemia; D64.9 Anemia, unspecified; E83.42 Hypomagnesemia
CPT/HCPCS: 36415; 71045; 74420; 80053; 81003; 81015; 83735; 84132; 85025; 85610; 85730; 87077; 87086; 87088; 87186; 93005; J2175; Q9967

== ENCOUNTER 2018-07-03 11:25 | Inpatient (IN) | payer OTHER ==
[2018-07-03] MEDS ORDERED: NA CHLORIDE 0.9% 1,000 ML ONE ×2 (12:18→13:41)
[2018-07-03] MEDS ORDERED: MORPHINE 4 MG/ML SYR ONE ×2 (12:18→14:28)
[2018-07-03] MEDS ORDERED: ONDANSETRON 4 MG/2 ML VIAL ONE ×2 (12:18→14:28)
[2018-07-03] MEDS ORDERED: ACETAMINOPHEN 500 MG TAB ONE (12:18)
[2018-07-03] MEDS ORDERED: Levofloxacin500mg IV 500 MG/100 ML BAG IV ONE (12:18)
[2018-07-03 12:49] LABS: Absolute Lymphocytes (CBC) 0.5 K/uL (0.7-4.9); Absolute Monocytes 0.5 K/uL (0.1-1.3); Basophils % 0.2 % (0-1.3); Hematocrit 39.2 % (36.0-45.0); Lymphocytes % 2.2 % (15.3-44.8); MPV 9.8 fL (7.6-11.3); RBC Red Blood Cell Count 4.38 M/uL (3.86-4.86)
[2018-07-03 12:59] LABS: Albumin 3.1 g/dL (3.4-5.0); Bilirubin Direct 0.2 mg/dL (0-0.2); Potassium 3.5 mmol/L (3.5-5.1); Protein, Total 7.8 g/dL (6.4-8.2)
[2018-07-03 13:07] LABS: Troponin (Emerg Dept Use Only) < 0.02 ng/mL (0.0-0.045)
--- NOTE | 2018-07-03 13:07 | EDPHYS ---
Physician Documentation [facility] Name: Jv Bryant Age: 63 yrs Sex: Female : 1955 Arrival Date: 07/03/2018 Time: 11:27 Bed 6 Private MD: ED Physician Helena Sorensen HPI: 07/03 11:30 This 63 yrs old Female presents to ER via Unassigned with complaints of flank ma2 p[ain. 11:30 Onset: The symptoms/episode began/occurred gradually, 3 day(s) ago. Onset: The ma2 symptoms/episode began/occurred gradually, 2 day(s) ago. Associated signs and symptoms: Pertinent negatives: headache, nausea, vomiting. Associated signs and symptoms: Pertinent negatives: blood in stools, dysuria. The symptoms are described as crampy. Severity of pain: At its worst the pain was moderate in the emergency department the pain is unchanged. The patient has not experienced similar symptoms in the past. Historical: - Allergies: 11:42 aloe vera; bp 11:42 Vancomycin; bp 11:42 Fentanyl; bp 11:42 Sulfa (Sulfonamide Antibiotics); bp 11:42 mycin; bp 11:42 MACROLIDES; bp 11:42 Augmentin; bp 11:42 Rocephin; bp 11:42 Stelazine; bp 11:42 Lincocin; bp 11:42 Betadine; bp 11:42 Bactrim; bp 11:42 Celery (Apium Graveolens) (Umbelliferae); bp 11:42 FLU VACCINE; bp 11:42 Iodine; bp 11:42 peppers; bp 11:42 Pneumovax 23; bp - Home Meds: 11:42 aspirin 81 mg Oral chew 1 tab once daily [Active]; diphenhydramine HCl 25 mg Oral tab 1 bp tab nightly [Active]; Fluocinolone Acetonide Topical [Active]; furosemide 40 mg Oral tab 1 tab 2 times per day [Active]; gabapentin 100 mg oral cap 3 caps nightly [Active]; hydrocodone-acetaminophen 7.5-325 mg Oral tab 1 tab three times a day [Active]; potassium chloride 10 mEq oral TbER 2 tabs once daily [Active]; lovastatin 20 mg Oral tab once daily [Active]; docusate sodium 100 mg Oral tab 2 tabs once daily for constipation [Active]; vitamin B12 IM twice a month [Active]; - PMHx: 11:42 Arthritis; Chronic pain; COPD; Fibromyalgia; frequent UTI'S; heart disease- bp unspecified; Hyperlipidemia; Hypertension; insomnia; lymphedema; PERIPHERAL NEUROPATHY; unspecified kidney failure; - Immunization history:: Adult Immunizations unknown. - Social history:: Patient/guardian denies using alcohol, street drugs, The patient lives with family, Smoking status: Patient uses tobacco products, smokes one pack cigarettes per day. - Family history:: not pertinent. - Ebola Screening: : Patient negative for fever greater than or equal to 101.5 degrees Fahrenheit, and additional compatible Ebola Virus Disease symptoms Patient denies exposure to infectious person Patient denies travel to an Ebola-affected area in the 21 days before illness onset No symptoms or risks identified at this time. ROS: 11:30 Constitutional: Negative for fever, chills, and weight loss, Cardiovascular: Negative ma2 for chest pain, palpitations, and edema, Respiratory: Negative for shortness of breath, cough, wheezing, and pleuritic chest pain. 11:30 Abdomen/GI: Positive for abdominal pain, Negative for vomiting, constipation, black/tarry stool, rectal bleeding. 11:30 Back: Positive for flank pain, Negative for pain at rest, radiated pain. 11:30 All other systems are negative. Exam: 11:30 Constitutional: This is a well developed, well nourished patient who is awake, alert, ma2 and in no acute distress. Head/Face: Normocephalic, atraumatic. Chest/axilla: Normal chest wall appearance and motion. Nontender with no deformity. No lesions are appreciated. Cardiovascular: Regular rate and rhythm with a normal S1 and S2. No gallops, murmurs, or rubs. Normal PMI, no JVD. No pulse deficits. Respiratory: Lungs have equal breath sounds bilaterally, clear to auscultation and percussion. No rales, rhonchi or wheezes noted. No increased work of breathing, no retractions or nasal flaring. 11:30 Abdomen/GI: Inspection: abdomen appears normal, Bowel sounds: normal, Palpation: mild abdominal tenderness, in the suprapubic area, Indicators: Liver: no appreciated palpable abnormalities. 11:30 Back: CVA tenderness, that is mild, is noted on the left. Vital Signs: 11:42 BP 128 / 53; Pulse 103; Resp 17; Temp 101.5; Pulse Ox 97% ; Weight 181.44 kg; bp 12:30 BP 106 / 28; Pulse 105; Resp 23; Pulse Ox 92% ; bp 13:30 BP 93 / 57; Pulse 89; Resp 16; Temp 99.3; Pulse Ox 94% ; bp 14:00 BP 101 / 55; Pulse 85; Resp 19; Pulse Ox 97% ; bp 14:50 BP 96 / 56; Pulse 81; Resp 17; Pulse Ox 98% on 2 lpm NC; bp MDM: 11:[address] [facility] 11:30 Differential diagnosis: gastritis, gastroesophageal reflux disease, Pyelonephritis, ma2 Ureterolithiasis, urinary tract infection. 12:59 Data reviewed: vital signs, nurses notes. Counseling: I had a detailed discussion with id2 the patient and/or guardian regarding: the historical points, exam findings, and any diagnostic results supporting the discharge/admit diagnosis, the presence of at least one elevated blood pressure reading (>120/80) during this emergency department visit, the need for further work-up and treatment in the hospital. ED course: discussed with dr. lovell, patient has sepsis with pyelonephritis dr. lovell recomends meropenam in addition to levaquine, the later is already given, bp is 110/60, patient stable to go to floor although wbc 23k and elevated lactate . 07/03 11:30 Order name: Basic Metabolic Panel; Complete Time: 14:12 id07/03 11:30 Order name: CBC with Diff; Complete Time: 14:12 id07/03 11:30 Order name: Creatinine for Radiology; Complete Time: 14:12 id07/03 11:30 Order name: Hepatic Function; Complete Time: 14:12 [facility] 07/03 11:30 Order name: Lipase; Complete Time: 14:12 id07/03 11:30 Order name: Blood Culture Adult (2) 07/03 12:06 Order name: Lactate; Complete Time: 14:12 id07/03 12:06 Order name: C-Reactive Protein; Complete Time: 14:12 [facility] 07/03 12:06 Order name: Procalcitonin; Complete Time: 14:12 ma2 07/03 12:06 Order name: Troponin (emerg Dept Use Only); Complete Time: 14:12 [facility] 07/03 12:53 Order name: Manual Differential; Complete Time: 14:12 [facility] 07/03 14:11 Order name: Urine Microscopic Only [facility] 07/03 14:11 Order name: Urine Culture [facility] 07/03 14:18 Order name: Urine Dipstick--Ancillary (enter results) 07/03 11:30 Order name: IV Saline Lock; Complete Time: 12:15 [facility] 07/03 11:30 Order name: Labs collected and sent; Complete Time: 12:15 [facility] 07/03 11:30 Order name: Urine Dipstick-Ancillary (obtain specimen); Complete Time: 14:10 [facility] 07/03 13:01 Order name: Abdomen ; Complete Time: 14:12 [facility] 07/03 13:56 Order name: CONS Pharmacy Consult [facility] 07/03 13:56 Order name: NPO [facility] Administered Medications: 12:12 Drug: NS 0.9% 1000 ml Route: IV; Rate: 1 bolus; Site: right forearm; ss 14:28 Follow up: IV Status: Completed infusion; IV Intake: 1000ml bp 12:12 Drug: Zofran 4 mg Route: IVP; Site: right forearm; ss 12:50 Follow up: Response: Nausea is decreased bp 12:15 Drug: morphine 4 mg Route: IVP; Site: right forearm; ss 12:50 Follow up: Response: Pain is decreased bp 12:15 Drug: Acetaminophen 1000 mg Route: PO; ss 12:51 Follow up: Response: No adverse reaction bp 12:22 Drug: LevaQUIN 500 mg Volume: 100 ml; Route: IVPB; Infused Over: 60 mins; Site: right ss forearm; 13:40 Follow up: IV Status: Completed infusion; IV Intake: 1001ml bp 13:40 Drug: Meropenem 1 grams Route: IV; Rate: calculated rate; Site: right forearm; bp 14:00 Drug: NS 0.9% 1000 ml Route: IV; Rate: 1 bolus; Site: right forearm; bp 14:15 Drug: morphine 4 mg Route: IVP; Site: right forearm; bp 14:28 Follow up: Response: Pain is decreased bp 14:15 Drug: Zofran 4 mg Route: IVP; Site: right forearm; bp 14:28 Follow up: Response: Nausea is decreased bp Disposition: 07/03/18 13:07 Hospitalization ordered by Patrice Lovell for Inpatient Admission. Preliminary diagnosis are Sepsis due to Escherichia coli [E. coli], Cystitis, unspecified without hematuria, Infection and inflammatory reaction due to indwelling urinary catheter. - Bed requested for Telemetry/MedSurg (Inpatient). - Status is Inpatient Admission. bp - Condition is Stable. - Problem is new. - Symptoms are unchanged. UTI on Admission? Yes Signatures: Dispatcher [employer] EDMO Nelia Tomas RN RN dw Carly Jaimes RN RN ss Evan Mercado, RN RN Helena Dempsey MD MD ma2 Corrections: (The following items were deleted from the chart) 13:01 11:31 Abdomen Pelvis W Con+CT.RAD.BRZ ordered. EDMO EDMO 14:26 13:07 Hospitalization Ordered by Patrice Lovell MD for Inpatient Admission. Preliminary diagnosis is Sepsis due to Escherichia coli [E. coli]; Cystitis, unspecified without hematuria; Infection and inflammatory reaction due to indwelling urinary catheter. Bed requested for Telemetry/MedSurg (Inpatient). Status is Inpatient Admission. Condition is Stable. Problem is new. Symptoms are unchanged. UTI on Admission? Yes. ma2 15:20 14:26 07/03/2018 13:07 Hospitalization Ordered by Patrice Lovell MD for Inpatient bp Admission. Preliminary diagnosis is Sepsis due to Escherichia coli [E. coli]; Cystitis, unspecified without hematuria; Infection and inflammatory reaction due to indwelling urinary catheter. Bed requested for Telemetry/MedSurg (Inpatient). Status is Inpatient Admission. Condition is Stable. Problem is new. Symptoms are unchanged. UTI on Admission? Yes. dw
--- NOTE | 2018-07-03 13:07 | ER ---
Nurse's Notes [facility] Name: Jv Bryant Age: 63 yrs Sex: Female : 1955 Arrival Date: 07/03/2018 Time: 11:27 Bed 6 Private MD: Diagnosis: Sepsis due to Escherichia coli [E. coli];Cystitis, unspecified without hematuria;Infection and inflammatory reaction due to indwelling urinary catheter Presentation: 07/03 11:34 Presenting complaint: EMS states: LEFT FLANK PAIN x2 DAYS WITH SOB. Transition of care: bp patient was not received from another setting of care. Onset of symptoms is unknown. Risk Assessment: Do you want to hurt yourself or someone else? Patient reports no desire to harm self or others. Initial Sepsis Screen: Does the patient meet any 2 criteria? Temp <36.0*C (96.8*F)) or > 38.3*C (100.9*F). HR > 90 bpm. Does the patient have a suspected source of infection? Yes: Productive cough/pneumonia If YES to both, name of provider notified: Helena Sorensen MD Care prior to arrival: Medication(s) given: Albuterol Neb x 1, Atrovent Neb x 1, Glucose check: 185. 11:34 Method Of Arrival: EMS: [facility] bp 11:34 Acuity: SKYLER 2 bp Triage Assessment: 11:42 General: Appears distressed, uncomfortable, obese, unkempt, Behavior is cooperative, bp agitated, anxious. Pain: Complains of pain in left flank and suprapubic area. EENT: No deficits noted. Neuro: Level of Consciousness is awake, alert, obeys commands, Oriented to person, place, time, situation, Appropriate for age. Cardiovascular: Rhythm is sinus tachycardia. Respiratory: Airway is patent Respiratory effort is even, labored, Respiratory pattern is hyperventilation. Respiratory: Breath sounds with wheezes bilaterally. GI: No signs and/or symptoms were reported involving the gastrointestinal system. : Pedroza in place to gravity drainage. Derm: No signs and/or symptoms reported regarding the dermatologic system. Musculoskeletal: Circulation, motion, and sensation intact. Range of motion: intact in all extremities. Historical: - Allergies: 11:42 aloe vera; bp 11:42 Vancomycin; bp 11:42 Fentanyl; bp 11:42 Sulfa (Sulfonamide Antibiotics); bp 11:42 mycin; bp 11:42 MACROLIDES; bp 11:42 Augmentin; bp 11:42 Rocephin; bp 11:42 Stelazine; bp 11:42 Lincocin; bp 11:42 Betadine; bp 11:42 Bactrim; bp 11:42 Celery (Apium Graveolens) (Umbelliferae); bp 11:42 FLU VACCINE; bp 11:42 Iodine; bp 11:42 peppers; bp 11:42 Pneumovax 23; bp - Home Meds: 11:42 aspirin 81 mg Oral chew 1 tab once daily [Active]; diphenhydramine HCl 25 mg Oral tab 1 bp tab nightly [Active]; Fluocinolone Acetonide Topical [Active]; furosemide 40 mg Oral tab 1 tab 2 times per day [Active]; gabapentin 100 mg oral cap 3 caps nightly [Active]; hydrocodone-acetaminophen 7.5-325 mg Oral tab 1 tab three times a day [Active]; potassium chloride 10 mEq oral TbER 2 tabs once daily [Active]; lovastatin 20 mg Oral tab once daily [Active]; docusate sodium 100 mg Oral tab 2 tabs once daily for constipation [Active]; vitamin B12 IM twice a month [Active]; - PMHx: 11:42 Arthritis; Chronic pain; COPD; Fibromyalgia; frequent UTI'S; heart disease- bp unspecified; Hyperlipidemia; Hypertension; insomnia; lymphedema; PERIPHERAL NEUROPATHY; unspecified kidney failure; - Immunization history:: Adult Immunizations unknown. - Social history:: Patient/guardian denies using alcohol, street drugs, The patient lives with family, Smoking status: Patient uses tobacco products, smokes one pack cigarettes per day. - Family history:: not pertinent. - Ebola Screening: : Patient negative for fever greater than or equal to 101.5 degrees Fahrenheit, and additional compatible Ebola Virus Disease symptoms Patient denies exposure to infectious person Patient denies travel to an Ebola-affected area in the 21 days before illness onset No symptoms or risks identified at this time. Screenin:46 Abuse screen: Denies threats or abuse. Denies injuries from another. Nutritional bp screening: No deficits noted. Tuberculosis screening: No symptoms or risk factors identified. Fall Risk None identified. Assessment: 11:46 General: SEE TRIAGE NOTE. bp 12:45 Reassessment: LAB RESULTS PENDING. FAMILY AT B/S. bp 13:49 Reassessment: PT RETURNED FROM CT, MOVED TO ROOM 6. ALL CURRENT ORDERS COMPLETED, IVF bp AND ABX INFUSING. ADMIT IN PROCESS. Vital Signs: 11:42 BP 128 / 53; Pulse 103; Resp 17; Temp 101.5; Pulse Ox 97% ; Weight 181.44 kg; bp 12:30 BP 106 / 28; Pulse 105; Resp 23; Pulse Ox 92% ; bp 13:30 BP 93 / 57; Pulse 89; Resp 16; Temp 99.3; Pulse Ox 94% ; bp 14:00 BP 101 / 55; Pulse 85; Resp 19; Pulse Ox 97% ; bp 14:50 BP 96 / 56; Pulse 81; Resp 17; Pulse Ox 98% on 2 lpm NC; bp ED Course: 11:27 Patient arrived in ED. hj 11:28 Helena Sorensen MD is Attending Physician. ma2 11:32 Evan Mercado, ALO is Primary Nurse. bp 11:36 Triage completed. bp 11:42 Arm band placed on. bp 11:46 Patient has correct armband on for positive identification. Bed in low position. Call bp light in reach. Side rails up X2. 12:15 Inserted saline lock: 22 gauge in right forearm, using aseptic technique. Blood bp collected. 12:24 Radiology exam delayed due to lab results not completed at this time. (BUN/Creatinine). vr 13:00 Patrice Mendenhall MD is Hospitalizing Provider. ma2 13:12 Abdomen In Process Unspecified. EDMS 14:49 No provider procedures requiring assistance completed. Patient admitted, IV remains in bp place. Administered Medications: 12:12 Drug: NS 0.9% 1000 ml Route: IV; Rate: 1 bolus; Site: right forearm; ss 14:28 Follow up: IV Status: Completed infusion; IV Intake: 1000ml bp 12:12 Drug: Zofran 4 mg Route: IVP; Site: right forearm; ss 12:50 Follow up: Response: Nausea is decreased bp 12:15 Drug: morphine 4 mg Route: IVP; Site: right forearm; ss 12:50 Follow up: Response: Pain is decreased bp 12:15 Drug: Acetaminophen 1000 mg Route: PO; ss 12:51 Follow up: Response: No adverse reaction bp 12:22 Drug: LevaQUIN 500 mg Volume: 100 ml; Route: IVPB; Infused Over: 60 mins; Site: right ss forearm; 13:40 Follow up: IV Status: Completed infusion; IV Intake: 1001ml bp 13:40 Drug: Meropenem 1 grams Route: IV; Rate: calculated rate; Site: right forearm; bp 14:00 Drug: NS 0.9% 1000 ml Route: IV; Rate: 1 bolus; Site: right forearm; bp 14:15 Drug: morphine 4 mg Route: IVP; Site: right forearm; bp 14:28 Follow up: Response: Pain is decreased bp 14:15 Drug: Zofran 4 mg Route: IVP; Site: right forearm; bp 14:28 Follow up: Response: Nausea is decreased bp Intake: 13:40 IV: 1001ml; Total: 1001ml. bp 14:28 IV: 1000ml; Total: 2001ml. bp Outcome: 13:07 Decision to Hospitalize by Provider. ma2 14:50 Admitted to Med/surg accompanied by tech, family with patient, via stretcher, room 412, bp with chart, Report called to TRAY PRAJAPATI 14:50 Condition: stable 14:50 Instructed on the need for admit. 15:20 Patient left the ED. bp Signatures: Dispatcher [employer] EDMS Carly Jaimes RN RN ss Davis, Victoria vr Joaquin, Henry, RN RN hj Peltier, Brian, RN RN bp Alzahri, Mohammad, MD MD ma2 Corrections: (The following items were deleted from the chart) 14:03 13:30 BP 80 / 30; Pulse 89bpm; Resp 16bpm; Pulse Ox 94%; Temp 99.3F; bp bp
[2018-07-03 13:08] LABS: Blood Morphology Comment NOT SEEN (NOT SEEN); Platelet Estimate ADEQ
[2018-07-03] MEDS ORDERED: Meropenem 1,000 MG in NA CHLORIDE 0.9% 100 ML IV ONE (13:30)
--- NOTE | 2018-07-03 13:37 | RAD REPORT ---
EXAM DESCRIPTION: CT - Abdomen Pelvis Wo Contrast - 07/03/2018 1:11 pm CLINICAL HISTORY: Left flank pain, history of urinary tract infections COMPARISON: CT October 2017 TECHNIQUE: Axial [address] imaging of the abdomen and pelvis was performed without IV contrast. No IV contrast was given because of allergy, abnormal renal function, patient refusal or physician re quest. Oral contrast was given. All CT scans are performed using dose optimization technique as appropriate and may include automated exposure control or mA/KV adjustment according to patient size. FINDINGS: No suspicious findings in the lung bases. The liver, spleen and pancreas show no suspicious findings on non-contrast imaging. Gallbladder and b iliary tree are also without suspicious finding. No changes from prior imaging. No hydronephrosis or suspicious renal mass. No significant adrenal finding. Isodense renal masses an d pyelonephritis cannot be excluded in the absence of IV contrast. Urinary bladder is fully contracte d around a suprapubic Pedroza catheter. Uterus and ovaries show no suspicious findings. No dilated bowel loops or bowel wall thickening. No free air, free fluid or inflammatory stranding. L ap band is in place. No omental thickening. Patient has multiple left inguinal lymph nodes as well as small number of right inguinal lymph nodes. Lymph nodes are seen along the aortoiliac chain. These are nonspecific and stable in size and number . Patient does not have any more remote imaging imaging that can establish long-term stability. No suspicious bony findings. IMPRESSION: No hydronephrosis, obstructing calculus or acute finding. Urinary bladder is fully co ntracted around a suprapubic catheter. Patient has numerous inguinal lymph nodes on the left with additional lymph nodes in the right inguin al canal and along the aorto iliac chains. Lymph nodes are more prominent than typically seen but rem ain nonspecific and not clearly different back to October 2017. Full assessment is limited is the absence of IV contrast.
[2018-07-03] MEDS ORDERED: ONDANSETRON 4 MG/2 ML VIAL IV PRN ×2 (13:49→17:09)
[2018-07-03] MEDS ORDERED: D5 0.45 NS 1,000 ML IV SCH (14:00)
[2018-07-03] MEDS ORDERED: GLUCAGON 1 MG/VIAL IM PRN (14:15)
[2018-07-03] MEDS ORDERED: D50W 25 GM/50 ML SYRINGE IV PRN (14:15)
[2018-07-03] MEDS: Levofloxacin 750mg IV 750 MG/150 ML BAG IV SCH (15:00)
[2018-07-03 15:19] LABS: Urine Bacteria >50 /HPF (<20); Urine RBC 20-50 /HPF (NONE SEEN)
[2018-07-03 15:20] LABS: Urine Culture Reflex Order NOT NEEDED; Urine Triple Phosphate Crystal MANY (NONE SEEN)
[2018-07-03 16:07] LABS: Urine Blood 1+ (NEG); Urine Glucose NEGATIVE (NEG); Urine Protein 2+ (NEG); Urine pH >8.5 (5.0-7.0)
[2018-07-03] MEDS ORDERED: INSULIN -REGULAR HUMAN 50 UNIT/0.5 ML ML SQ SCH (16:30)
[2018-07-03] MEDS ORDERED: EMOLLIENT BASE TOP PRN (17:09)
[2018-07-03] MEDS ORDERED: FLUOCINONIDE TOP PRN (17:09)
[2018-07-03] MEDS ORDERED: HYDROCORTISONE 0.5% TOP PRN (17:30)
[2018-07-03] MEDS ORDERED: NYSTATIN TOP PRN (17:45)
[2018-07-03] MEDS ORDERED: [UNRECOGNIZED DRUG - OTHER] TOP PRN (17:45)
[2018-07-03] MEDS: NA CHLORIDE 0.9% 1,000 ML IV SCH (18:00)
[2018-07-03 18:53] VITALS: BMI 60.9
[2018-07-03] MEDS: MORPHINE 4 MG/ML SYR IV PRN (19:32)
[2018-07-03] MEDS: ATORVASTATIN 10 MG TAB PO SCH (20:45)
[2018-07-03] MEDS: DIPHENHYDRAMINE 25 MG TAB/CAP PO SCH (20:45)
[2018-07-03] MEDS: ACETAMINOPHEN 500 MG TAB PO PRN (20:45)
[2018-07-03] MEDS: GABAPENTIN 300 MG CAP PO SCH (20:45)
[2018-07-03] MEDS: Meropenem 1,000 MG in NA CHLORIDE 0.9% 100 ML IV SCH (20:46)
[2018-07-03] MEDS: ENOXAPARIN 30 MG/0.3 ML SQ SCH (20:46)
[2018-07-03] MEDS ORDERED: Meropenem 1000 MG/VIAL IV SCH (21:00)
[2018-07-03] MEDS ORDERED: DIPHENHYDRAMINE HCL PO SCH (21:00)
[2018-07-03] MEDS ORDERED: HOME MED 1 EA UNK (Lovastatin [Lovastatin] 1 TAB) PO SCH (21:00)
[2018-07-04] MEDS: ACETAMINOPHEN 500 MG TAB PO PRN (02:43)
[2018-07-04] MEDS: NA CHLORIDE 0.9% 1,000 ML IV SCH ×2 (02:43→12:00)
[2018-07-04] MEDS: MORPHINE 4 MG/ML SYR IV PRN (02:55)
--- NOTE | 2018-07-04 04:17 | HP ---
Date of Admission: 07/03/2018 Chief Complaint: Fever, chills, nausea, feeling bad. History Of Present Illness: A 63-year-old, morbidly obese female patient who had suprapubic catheter with prior history of recurrent urinary tract infection, started to get sick about 2-1/2 days ago, b ut did not seek any medical attention until today, she decided to come to the emergency room. The pa steve has been having fever and chills, nausea and increasingly feeling worse, very poor appetite, díaz s not had much to eat or drink in last 2-3 days, she said. She had diarrhea 3 days ago and had 3 bow el movements within short period of time; after that, no more diarrhea. After she was evaluated in [facility] emergency room, she was diagnosed as having urinary tract infection with possibility of concerns a bout sepsis and she was admitted to the hospital. She has received 2 L of IV fluids so far in emerge ncy room, and when I saw her, she was on the medical floor. Her son was present with her at bedside. Medications: List reviewed. Review of Systems: Constitutional: As mentioned above. GI: As mentioned above. All other systems reviewed and negative. Allergies: SHE IS ALLERGIC TO AUGMENTIN, ROCEPHIN, IODINE, LINCOMYCIN, PNEUMOCOCCAL VACCINE, LYRICA, SULFA, AND VANCOMYCIN. PRIOR RECORD HAD STATED SHE IS ALLERGIC TO LEVAQUIN, BUT TODAY I ASKED HER A ND SHE TELLS ME THAT SHE IS NOT ALLERGIC TO LEVAQUIN AND SHE IS ABLE TO TAKE THAT PARTICULAR MEDICATI ON AND THAT IS WHAT I WAS TOLD BY ER PHYSICIAN ALSO. Social History: Negative for smoking, alcohol use. Family History: Significant for stroke, hypertension, cardiovascular disease. Past Surgical History: , tonsillectomy, lap band surgery, and suprapubic catheter placement . Past Medical History: Lymphedema of both legs, fibromyalgia, anemia, hypokalemia, hypomagnesemia, ur inary incontinence, mixed hyperlipidemia, hypertension, chronic leg wounds due to lymphedema, recurre nt urinary tract infection, and now has a suprapubic catheter. Physical Examination: Vital Signs: Initial temperature 101.5, pulse 103, respiratory rate 17, blood pressure 128/53. Last blood pressure 96/56. Weight listed as 400 pounds. Height not available. General: The patient appears acutely ill, not in any respiratory distress. Appears weaker than norm al. HEENT: Head atraumatic, normocephalic. Conjunctivae nonerythematous. Sclerae white. Mouth, no thr ush or edema noted. Ears/Nose, no mass, lesion, discharge noted. Neck: Supple. No JVD, lymph nodes, bruit, thyromegaly noted. Lungs: Bilateral good equal air entry. Clear to auscultation. No rhonchi. No rales. Heart: Normal heart sounds, no murmur or gallop. Abdomen: Presence of suprapubic catheter. No guarding, rigidity, tenderness, distention. Bowel carie nds normoactive. Extremities: Bilateral chronic leg swelling, nonpitting in nature with a nodular skin appearance of both lower extremity due to chronic lymphedema. Skin: No rash, ulcer, cellulitis. Lymphatics: No lymph node enlargement in neck, supraclavicular, infraclavicular region. Neuro: No focal neurological deficit. Chest: Unremarkable. External Genitalia: Deferred. Rectal: Deferred. Laboratory Data: White count 23, hemoglobin 13.3, platelets 189, 11 bands. Initial lactic acid 2.5. Repeat lactic acid 2.2. Procalcitonin 6.29. Troponin less than 0.02. Sodium 138, potassium 3.5, chloride 101, bicarb 26, BUN 8, creatinine 1.01, glucose 157. Liver function tests unremarkable. He r urinalysis is 2+ esterase, 20-50 RBC, 20-50 WBC, more than 50 bacteria. CAT scan of abdomen and pe lvis shows no evidence of hydronephrosis or obstructing calculus. No acute genitourinary finding. T he patient has multiple bilateral inguinal lymph nodes. No significant change from prior CAT scan. Impression: 1.Urinary tract infection. 2.Rule out sepsis. 3.Lymphedema, legs. 4.Fibromyalgia. 5.Status post suprapubic catheter placement. 6.Anemia. 7.Hypokalemia. 8.Hypomagnesemia. 9.Urinary incontinence. 10.Hyperlipidemia, mixed. 11.Hypertension. Plan: Admit the patient to hospital for further evaluation and management of this problem. The kalani ent is appropriate for inpatient and is expected to spend 2 midnights in hospital. We will continue home medications per order. We will go ahead and give IV fluid as per order. IV Levaquin and IV lizzy openem will be given. Follow up on culture results. Depending on the culture results, we will decid e about culture-specific antibiotics. Details and plan of treatment discussed with the patient. Her son was present at bedside. KIMBERLI/MICHELLE Voice ID: [id number]
[2018-07-04 06:38] LABS: Absolute Lymphocytes (CBC) 0.4 K/uL (0.7-4.9); Absolute Monocytes 0.6 K/uL (0.1-1.3); Absolute Neutrophil 14.8 K/uL (1.8-8.0); Basophils % 0.4 % (0-1.3); Eosinophils % 0.1 % (0-4.4); Hematocrit 34.5 % (36.0-45.0); Lymphocytes % 2.8 % (15.3-44.8); Monocytes % 3.7 % (3.3-12.3)
[2018-07-04 06:54] LABS: Potassium 3.4 mmol/L (3.5-5.1)
[2018-07-04] MEDS: ASPIRIN 81 MG CHEWABLE TABLET PO SCH (09:02)
[2018-07-04] MEDS: ENOXAPARIN 30 MG/0.3 ML SQ SCH ×2 (09:02→20:48)
[2018-07-04] MEDS: Meropenem 1,000 MG in NA CHLORIDE 0.9% 100 ML IV SCH ×2 (09:02→20:48)
[2018-07-04] MEDS ORDERED: NA CHLORIDE 0.9% 1,000 ML IV SCH (10:00)
[2018-07-04] MEDS: POTASSIUM CL SA 10 MEQ TAB PO SCH (11:29)
--- NOTE | 2018-07-04 12:47 | RAD REPORT ---
EXAM DESCRIPTION: Chrissy Single View07/04/2018 12:20 pm CLINICAL HISTORY: Chest pain COMPARISON: December 2017 FINDINGS: The lungs appear clear of acute infiltrate. The heart is mildly enlarged IMPRESSION: No acute abnormalities displayed
[2018-07-04] MEDS: Levofloxacin 750mg IV 750 MG/150 ML BAG IV SCH (14:23)
[2018-07-04] MEDS: HYDROCODONE/APAP 7.5/325 MG TAB PO PRN (14:23)
[2018-07-04] MEDS: GUAIFENESIN/DM 5 ML UCUP PO PRN (14:34)
--- NOTE | 2018-07-04 17:02 | PN ---
Date of Progress Note: 07/04/2018 Subjective: The patient was seen this morning for followup. No new complaints or problems reported by her. She was noted to have frequent coughing while I was in room with her today, but I did not no narda it yesterday. The patient reported that she has been having this coughing for last 3 days, but it was more pronounced today. She is coughing up sometimes clear and sometimes white colored mucus. Denies any shortness of breath. Has some nausea but no vomiting. Objective: Vital Signs: Reviewed. Blood pressure is much better this morning. It is 112/56, tempe rature 97.7, pulse 82, respiratory rate 16. HEENT: Unremarkable. Lungs: Clear to auscultation. No rhonchi or rales. Heart: Sounds normal. Abdomen: Soft. Bowel sounds normal. No guarding, rigidity, tenderness, or distention. Extremities: Bilateral lymphedema of legs unchanged. Laboratory Data: White count 15.9, hemoglobin 11.6, platelets 165. Sodium 138, potassium 3.4, chlor lilly 105, bicarb 25, BUN 11, creatinine 0.81, glucose 140. Impression: 1.Urinary tract infection. 2.Sepsis. 3.Cough. 4.Rule out pneumonia. Plan: The patient's urine culture is growing gram-negative rods. Blood culture was reported as gram -positive cocci in pairs and chains, and I believe that may be a wrong report, and it probably will b e gram-negative rods, but we will wait until final report comes out. The patient is responding well to current antibiotic therapy. We will get a chest x-ray on her, and I will see her tomorrow for fol lowup. IV fluid was reduced this morning to 75 cc/hour, but after I saw her with this cough problem, I will even reduce IV fluid to 50 cc/hour. There was no evidence of fluid o verload on clinical exam. KIMBERLI/MODL Voice ID: [id number] Report ID: [id number]
[2018-07-04] MEDS: GABAPENTIN 300 MG CAP PO SCH (20:48)
[2018-07-04] MEDS: OXYBUTYNIN CHLORIDE 5 MG TAB PO SCH (20:48)
[2018-07-04] MEDS: ATORVASTATIN 10 MG TAB PO SCH (20:48)
[2018-07-04] MEDS: DIPHENHYDRAMINE 25 MG TAB/CAP PO SCH (20:49)
[2018-07-04] MEDS: FUROSEMIDE 40 MG TABLET PO SCH (20:49)
[2018-07-05 07:02] LABS: Absolute Lymphocytes (CBC) 0.6 K/uL (0.7-4.9); Absolute Monocytes 0.7 K/uL (0.1-1.3); Absolute Neutrophil 13.3 K/uL (1.8-8.0); Basophils % 0.1 % (0-1.3); Eosinophils % 1.3 % (0-4.4); Hematocrit 34.8 % (36.0-45.0); Lymphocytes % 3.8 % (15.3-44.8); MPV 9.5 fL (7.6-11.3); Monocytes % 4.8 % (3.3-12.3); RBC Red Blood Cell Count 3.87 M/uL (3.86-4.86)
[2018-07-05 08:36] LABS: Magnesium 1.7 mg/dL (1.8-2.4); Potassium 3.4 mmol/L (3.5-5.1)
[2018-07-05] MEDS: ENOXAPARIN 30 MG/0.3 ML SQ SCH ×2 (08:45→22:09)
[2018-07-05] MEDS: POTASSIUM CL SA 10 MEQ TAB PO SCH (08:45)
[2018-07-05] MEDS: ASPIRIN 81 MG CHEWABLE TABLET PO SCH (08:45)
[2018-07-05] MEDS: OXYBUTYNIN CHLORIDE 5 MG TAB PO SCH ×2 (08:45→22:09)
[2018-07-05] MEDS: FUROSEMIDE 40 MG TABLET PO SCH ×2 (08:45→22:08)
[2018-07-05] MEDS: Meropenem 1,000 MG in NA CHLORIDE 0.9% 100 ML IV SCH ×2 (09:03→22:07)
[2018-07-05] MEDS: NA CHLORIDE 0.9% 1,000 ML IV SCH (09:03)
[2018-07-05] MEDS ORDERED: POLYETHYL GLY 3350 17 GM/DOSE PO ONE (10:23)
[2018-07-05] MEDS ORDERED: BISACODYL 10 MG RECTAL SUPP PR ONE ×2 (10:23→16:30)
[2018-07-05] MEDS ORDERED: POTASSIUM CL SA 10 MEQ TAB PO ONE (10:24)
[2018-07-05] MEDS ORDERED: MAGNESIUM SULFATE 1 gm IVPB 1 GM/100 ML BAG IV ONE (10:24)
[2018-07-05] MEDS: HYDROCODONE/APAP 7.5/325 MG TAB PO PRN ×2 (12:27→23:18)
[2018-07-05] MEDS: ALBUTEROL 2.5 MG/3 ML NEB SOL NEB SCH ×2 (13:45→19:57)
[2018-07-05] MEDS ORDERED: FLEET ENEMA ADULT PR ONE (16:04)
[2018-07-05] MEDS: Levofloxacin 750mg IV 750 MG/150 ML BAG IV SCH (16:33)
--- NOTE | 2018-07-05 21:15 | PN ---
Date of Progress Note: 07/05/2018 Subjective: The patient was seen this morning for followup. Her cough problem remains unchanged. H as not had a bowel movement in last 4 to 5 days. Denies any abdominal pain. No nausea. No vomiting . Overall, feels little better than yesterday. Objective: Vital Signs: Reviewed. HEENT: Unremarkable. Lungs: Clear to auscultation. Heart: Sounds normal. Abdomen: Soft. Bowel sounds normal. No guarding, rigidity, tenderness, or distention. Extremities: Bilateral leg lymphedema unchanged. Laboratory Data: White count 14.8, hemoglobin 12, platelets 189. Sodium 137, potassium 3.4, chlorid e 104, bicarb 23, BUN 11, creatinine 0.91, glucose 134, magnesium 1.7. Urine culture growing Proteus and it is sensitive to Levaquin and meropenem that currently the patient is on. Blood culture is gr owing gram-positive cocci in pairs and chains. Final report still pending. Impression: 1.Sepsis. 2.Urinary tract infection. 3.Hypokalemia. 4.Hypomagnesemia. 5.Lymphedema, legs. Plan: We will go ahead and continue current Levaquin and meropenem. Replace potassium and magnesium per order. We will give nebulizer treatment using albuterol. The patient had episode of paroxysmal atrial tachycardia last night. No need for any further intervention for it at this point except replace electrolytes at this time. We will see her tomorrow for followup . KIMBERLI/MODL Voice ID: [id number] Report ID: [id number]
[2018-07-05] MEDS: ATORVASTATIN 10 MG TAB PO SCH (22:07)
[2018-07-05] MEDS: GABAPENTIN 300 MG CAP PO SCH (22:07)
[2018-07-05] MEDS: DIPHENHYDRAMINE 25 MG TAB/CAP PO SCH (22:09)
[2018-07-05] MEDS: DOCUSATE NA/SENNA CONC 1 TAB PO PRN (23:21)
[2018-07-06] MEDS: ALBUTEROL 2.5 MG/3 ML NEB SOL NEB SCH ×4 (02:00→20:00)
[2018-07-06 06:14] LABS: Absolute Lymphocytes (CBC) 0.8 K/uL (0.7-4.9); Absolute Monocytes 0.6 K/uL (0.1-1.3); Absolute Neutrophil 9.8 K/uL (1.8-8.0); Basophils % 0.4 % (0-1.3); Eosinophils % 1.8 % (0-4.4); Lymphocytes % 6.6 % (15.3-44.8); MPV 9.5 fL (7.6-11.3); Monocytes % 5.6 % (3.3-12.3); RBC Red Blood Cell Count 3.56 M/uL (3.86-4.86)
[2018-07-06 06:46] LABS: Magnesium 1.9 mg/dL (1.8-2.4)
[2018-07-06 06:49] LABS: Potassium 2.9 mmol/L (3.5-5.1)
[2018-07-06] MEDS ORDERED: KCL 20 MEQ/100 mL IVPB 20 MEQ/100 ML BAG IV SCH (09:00)
[2018-07-06] MEDS ORDERED: POTASSIUM CL IV ONE ×2 (09:00)
[2018-07-06] MEDS ORDERED: NA CHLORIDE 0.9% IV ONE ×2 (09:00)
--- NOTE | 2018-07-06 09:27 | RAD REPORT ---
EXAM DESCRIPTION: RAD - Chest Single View - 07/06/2018 8:47 am CLINICAL HISTORY: bronchitis, rule out pneumonia Chest pain. COMPARISON: Chest Single View dated 07/04/2018; Chest Single View dated 12/15/2017; Chest Single View dated 11/05/2017; Chest Single View dated 12/16/2016 FINDINGS: Portable technique limits examination quality. The lungs are grossly clear. The heart is upper limit of normal in size. No displaced fractures. IMPRESSION: No acute intrathoracic process suspected.
[2018-07-06] MEDS: FUROSEMIDE 40 MG TABLET PO SCH ×2 (09:46→21:53)
[2018-07-06] MEDS: ASPIRIN 81 MG CHEWABLE TABLET PO SCH (09:46)
[2018-07-06] MEDS: ENOXAPARIN 30 MG/0.3 ML SQ SCH ×2 (09:46→21:54)
[2018-07-06] MEDS: POTASSIUM CL SA 10 MEQ TAB PO SCH (09:48)
[2018-07-06] MEDS: OXYBUTYNIN CHLORIDE 5 MG TAB PO SCH ×2 (09:59→21:54)
--- NOTE | 2018-07-06 13:55 | CON ---
History Of Present Illness: Mrs. Huitron is 63. She is in the hospital because of sepsis. She has 2 bacteria growing from her blood. She is getting better. She is being treated with appropriat e antibiotics while here. She really has lots and lots of atrial arrhythmia. One spell of the arrhy thmia seemed to be atrial with aberrancy. When she stands up, her heart rate gets around 150 to 160, and this is something that she notes at home as well. She has a history of a suprapubic catheter an d it was placed because of intolerable bladder incontinence. She does not have a history of heart di sease, atrial fib, myocardial infarction. She may have had a TIA decades ago. She has numerous yasmin rgies. She does not have diabetes, hypertension. She does not use tobacco. Medications: Her outpatient medications have been nystatin, ibuprofen DM, potassium chloride, lovast atin, hydrocodone with acetaminophen, gabapentin, furosemide, fluocinonide cream, diphenhydramine, as pirin, docusate, hydrocortisone cream, and Bactroban. Physical Examination: General: She is 5 feet 4 inches, 355 pounds. HEENT: Normal. Lungs: No crackles or wheeze. Heart: Regular rate and rhythm. Heart rate 95, blood pressure 102/44, respirations 16. Extremities: Marked edema. Distal pulses not palpable. She has rash on her legs. Impression: Arrhythmia is all result of her sepsis, which is probably getting better. I would not r ecommend adding any medications. There is no indication for anticoagulation or antiarrhythmic drugs and I suspect that she might benefit from a low-dose beta elana long-term if she continues to have a lot of tachycardia when she stands, this could easily backfire and make her hypotensive as well, so it must be done cautiously but for now, I would recommend the addition of no medication. AMANUEL/KANAL Voice ID: [id number] Report ID: [id number]
[2018-07-06] MEDS: GUAIFENESIN/DM 5 ML UCUP PO PRN (14:58)
[2018-07-06] MEDS: Levofloxacin 750mg IV 750 MG/150 ML BAG IV SCH (16:10)
[2018-07-06] MEDS: ATORVASTATIN 10 MG TAB PO SCH (21:53)
[2018-07-06] MEDS: DIPHENHYDRAMINE 25 MG TAB/CAP PO SCH (21:54)
[2018-07-06] MEDS: HYDROCODONE/APAP 7.5/325 MG TAB PO PRN (21:56)
[2018-07-06] MEDS: DOCUSATE NA/SENNA CONC 1 TAB PO PRN (21:56)
[2018-07-06] MEDS: GABAPENTIN 300 MG CAP PO SCH (21:57)
[2018-07-06] MEDS: PROMOD 30 ML DOSE PO SCH (21:58)
--- NOTE | 2018-07-07 00:22 | PN ---
Date of Progress Note: 07/06/2018 Subjective: The patient was seen this morning for followup, lying in bed, not in distress. Last nig ht, she had episodes of paroxysmal atrial tachycardia as well as supraventricular tachycardia with he art rate going up to 190 beats per minute. She was asymptomatic, hemodynamically stable. Objective: Vital Signs: Reviewed. HEENT: Unremarkable. Lungs: Clear to auscultation. Heart: Sounds normal. Abdomen: Soft. Bowel sounds normal. No guarding, rigidity, tenderness, distention. Extremities: Bilateral chronic lymphedema of legs unchanged. Laboratory Data: White count 11.5, hemoglobin 10.9, platelets 190. Sodium 140, potassium 2.9, chlor lilly 104, bicarb 26, BUN 11, creatinine 0.70, glucose 124, magnesium 1.9. Procalcitonin 1.82, which i s much better now than admission time. TSH 2.05. Urine culture growing Proteus. Blood culture grow ing Streptococcus. Both are sensitive to Levaquin. Impression: 1.Sepsis, organism Streptococcus. 2.Acute bronchitis. 3.Urinary tract infection. 4.Status post suprapubic catheter. 5.Morbid obesity. 6.Lymphedema, legs. 7.Cardiac arrhythmia. 8.Hypokalemia. Plan: We will go ahead and replace potassium per protocol. Get echo with Doppler. Consult Cardiolo gy. Discontinue meropenem and we will continue Levaquin as per order. I will see her tomorrow for claritza wetzel. Depending on combination technician's recommendation and tomorrow's blood work, we will decide if she can be di scharged tomorrow to go home or not. KIMBERLI/MODL Voice ID: [id number] Report ID: [id number]
[2018-07-07] MEDS: MORPHINE 4 MG/ML SYR IV PRN ×2 (01:20→12:40)
[2018-07-07] MEDS ORDERED: POTASSIUM CL SA 10 MEQ TAB PO ONE (01:25)
[2018-07-07] MEDS: HYDROCODONE/APAP 7.5/325 MG TAB PO PRN ×2 (06:07→20:34)
[2018-07-07 06:22] LABS: Absolute Lymphocytes (CBC) 1.2 K/uL (0.7-4.9); Absolute Monocytes 0.9 K/uL (0.1-1.3); Absolute Neutrophil 7.3 K/uL (1.8-8.0); Basophils % 0.4 % (0-1.3); Eosinophils % 3.7 % (0-4.4); Hematocrit 33.5 % (36.0-45.0); Lymphocytes % 12.4 % (15.3-44.8); MPV 9.4 fL (7.6-11.3); Monocytes % 9.4 % (3.3-12.3); RBC Red Blood Cell Count 3.75 M/uL (3.86-4.86)
[2018-07-07 06:39] LABS: BUN Blood Urea Nitrogen 7 mg/dL (7-18); Bicarbonate 29 mmol/L (21-32); Glucose Level 100 mg/dL (74-106); Magnesium 1.9 mg/dL (1.8-2.4); Potassium 3.7 mmol/L (3.5-5.1); Sodium Level 143 mmol/L (136-145)
[2018-07-07] MEDS ORDERED: BISACODYL 10 MG RECTAL SUPP PR ONE (07:59)
[2018-07-07] MEDS: ASPIRIN 81 MG CHEWABLE TABLET PO SCH (08:28)
[2018-07-07] MEDS: ENOXAPARIN 30 MG/0.3 ML SQ SCH ×2 (08:28→20:33)
[2018-07-07] MEDS: POTASSIUM CL SA 10 MEQ TAB PO SCH (08:28)
[2018-07-07] MEDS: OXYBUTYNIN CHLORIDE 5 MG TAB PO SCH ×2 (08:28→20:35)
[2018-07-07] MEDS: PROMOD 30 ML DOSE PO SCH ×2 (08:29→20:33)
[2018-07-07] MEDS: FUROSEMIDE 40 MG TABLET PO SCH ×2 (08:29→20:36)
[2018-07-07] MEDS: ALBUTEROL 2.5 MG/3 ML NEB SOL NEB SCH ×4 (08:35→20:40)
[2018-07-07] MEDS ORDERED: FLEET ENEMA ADULT PR ONE (12:30)
[2018-07-07] MEDS: Levofloxacin 750mg IV 750 MG/150 ML BAG IV SCH (15:42)
[2018-07-07] MEDS: GUAIFENESIN/DM 5 ML UCUP PO PRN (20:33)
[2018-07-07] MEDS: DIPHENHYDRAMINE 25 MG TAB/CAP PO SCH (20:34)
[2018-07-07] MEDS: DOCUSATE NA/SENNA CONC 1 TAB PO PRN (20:34)
[2018-07-07] MEDS: ATORVASTATIN 10 MG TAB PO SCH (20:35)
[2018-07-07] MEDS: GABAPENTIN 300 MG CAP PO SCH (20:35)
--- NOTE | 2018-07-08 00:13 | PN ---
Date of Progress Note: 07/07/2018 Subjective: The patient was seen this morning for followup. She was complaining of pain in her uppe r medial thigh and constipation problem. Objective: Vital Signs: Reviewed. HEENT: Unremarkable. Lungs: Clear to auscultation. Heart: Sounds normal. Abdomen: Soft. Bowel sounds normal. No guarding, rigidity, tenderness, distention. Extremities: Bilateral leg edema, nonpitting, due to lymphedema and left upper medial thigh has pink , warm, tender skin consistent with cellulitis. Laboratory Data: White count 9.9, hemoglobin 11.2, platelets 216. Sodium 143, potassium 3.7, chlori de 106, bicarb 29, BUN 7, creatinine 0.63, glucose 100. Impression: 1.Cellulitis, left leg. 2.Sepsis, organism Streptococcus. 3.Urinary tract infection. 4.Morbid obesity. 5.Lymphedema, legs. 6.Hypokalemia. 7.Hypomagnesemia. Plan: The patient's potassium and magnesium are normal. Echocardiogram was not done and it will be done today. We will follow up on results. Continue Levaquin and possible discharge to go home tomorrow depending on her condition. Cardiology consultation is appreciated. KIMBERLI/MODL Voice ID: [id number] Report ID: [id number]
[2018-07-08 01:59] VITALS: TEMP 97.9
[2018-07-08] MEDS: ALBUTEROL 2.5 MG/3 ML NEB SOL NEB SCH ×2 (02:00→09:01)
[2018-07-08] MEDS: HYDROCODONE/APAP 7.5/325 MG TAB PO PRN (04:28)
[2018-07-08 05:20] LABS: BUN Blood Urea Nitrogen 9 mg/dL (7-18); Bicarbonate 32 mmol/L (21-32); Glucose Level 102 mg/dL (74-106); Potassium 3.1 mmol/L (3.5-5.1); Sodium Level 141 mmol/L (136-145)
[2018-07-08] MEDS ORDERED: POTASSIUM CL SA 10 MEQ TAB PO ONE (05:37)
[2018-07-08] MEDS: ENOXAPARIN 30 MG/0.3 ML SQ SCH (08:27)
[2018-07-08] MEDS: FUROSEMIDE 40 MG TABLET PO SCH (08:27)
[2018-07-08] MEDS: POTASSIUM CL SA 10 MEQ TAB PO SCH (08:28)
[2018-07-08] MEDS: ASPIRIN 81 MG CHEWABLE TABLET PO SCH (08:28)
[2018-07-08] MEDS: OXYBUTYNIN CHLORIDE 5 MG TAB PO SCH (08:28)
[2018-07-08] MEDS: PROMOD 30 ML DOSE PO SCH (08:29)
[2018-07-08 09:10] VITALS: BP 109/55
[2018-07-08 10:15] VITALS: O2SAT 92
--- NOTE | 2018-07-09 06:01 | DS ---
Date of Discharge: 07/08/2018 Discharge Medications And Instructions: 1.Continue all prior home medications. 2.Take Levaquin 750 mg p.o. daily for 2 weeks. 3.Follow up at my office in 2 weeks. Hospital Course: A 63-year-old female patient admitted to the hospital after she presented to emerge ncy room with fever, chills, nausea, and feeling bad. Please see dictated H and P for more informati on. The patient's urinalysis was abnormal. She has suprapubic catheter and she was admitted to the hospital with urinary tract infection problem. Her white count was elevated. She was given IV fluid , IV antibiotics. Initially, her blood pressure was on low side and adequate amount of IV fluid was given. She did not require any vasopressor medication. CAT scan of abdomen and pelvis showed no safia dence of hydronephrosis or any obstructing calculus. Procalcitonin level was 6.29 when she first cam e in. Her blood culture started to grow Streptococcus and urine culture grew Proteus. Initially, sh e received IV meropenem as well as IV Levaquin. The patient reported that she is not allergic to Lev aquin and she has taken it before and she did not have any side effects from meropenem or Levaquin. Once we got the report back on the culture, meropenem was discontinued and the patient continued to r eceive IV Levaquin 750 mg daily. She had some constipation problem that was treated with Dulcolax re ctal suppository and Fleet Enema. At home, she takes uayi-tta-lacscfo stool softener with laxative t hat works very well for her. Overall, her condition has improved and she had some cardiac arrhythmia in the form of SVT and atrial tachycardia, asymptomatic. Cardiology consultation was requested. No further intervention was suggested by magnetic resonance imaging director. Echocardiogram was ordered, but it was not done as I understand because of hospital's echocardiogram machine was not working. Final Diagnoses: 1.Sepsis, organism streptococcus. 2.Urinary tract infection, organism proteus. 3.Cellulitis, left leg. 4.Lymphedema, both legs. 5.Hypokalemia. 6.Hypomagnesemia. 7.Anemia. 8.Fibromyalgia. 9.Status post suprapubic catheter placement. 10.Urinary incontinence. 11.Hyperlipidemia, mixed. 12.Hypertension. 13.Constipation. KIMBERLI/MODL Voice ID: [id number] Report ID: [id number]
--- NOTE | 2018-07-09 06:04 | DS ---
Date of Discharge: 07/08/2018 Disposition: Discharged to go home. Physical Examination: HEENT: Unremarkable. Lungs: Clear to auscultation. Heart: Sounds normal. Abdomen: Soft. Bowel sounds normal. No guarding, rigidity, tenderness, or distention. Extremities: Bilateral leg lymphedema present, unchanged from before. Left medial thigh has pink an d warm skin, consistent with cellulitis. Laboratory Data: Last sodium this morning 141, potassium 3.1, chloride 103, bicarb 32, BUN 9, creati nine 0.65, glucose 102. Her lowest potassium was 2.9, that was day before yesterday. Her urine cult ure grew Proteus and blood culture grew Streptococcus. Chest x-ray was negative for any pneumonia. Procalcitonin 1.82 on 07/06/2018. Initial white count was 23, hemoglobin 13.3, platelets 189. Last white count yesterday 9.9, hemoglobin 11.2, platelets 216. KIMBERLI/MODL Voice ID: [id number] Report ID: [id number]
== END 2018-07-08 10:48 | disposition home health service (06) | DRG 872 ==
LOC: ER 11:25 → ERHOLD 13:49 → 4TH 14:45
PROVIDERS: ADMIT Internal Medicine; ATTEND Internal Medicine
DX: A40.9 Streptococcal sepsis, unspecified (principal); N39.0 Urinary tract infection, site not specified; Z68.44 Body mass index [BMI] 60.0-69.9, adult; L03.116 Cellulitis of left lower limb; I47.1 Supraventricular tachycardia; I89.0 Lymphedema, not elsewhere classified; J20.9 Acute bronchitis, unspecified; D64.9 Anemia, unspecified; Z93.50 Unspecified cystostomy status; B96.4 Proteus (mirabilis) (morganii) as the cause of diseases classified elsewhere; E87.6 Hypokalemia; E83.42 Hypomagnesemia; R32 Unspecified urinary incontinence; E66.01 Morbid (severe) obesity due to excess calories; M79.7 Fibromyalgia; E78.2 Mixed hyperlipidemia; I10 Essential (primary) hypertension; F17.210 Nicotine dependence, cigarettes, uncomplicated; K59.00 Constipation, unspecified; Z98.84 Bariatric surgery status; Z88.1 Allergy status to other antibiotic agents; Z88.2 Allergy status to sulfonamides; Z88.7 Allergy status to serum and vaccine
CPT/HCPCS: 36415; 71045; 74176; 80048; 80076; 81003; 81015; 82962; 83605; 83690; 83735; 84132; 84145; 84443; 84484; 85025; 86140; 87040; 87077; 87086; 87088; 87186; 87205; 94640; 94760; 96361; 96365; 96375; 99285; J1650; J2405; J3475; J7030

== ENCOUNTER → 2018-09-25 | Day surgery (SDC) | payer OTHER ==
[~2018-09-25] MED LIST: Meropenem 1,000 MG in NA CHLORIDE 0.9% 100 ML IV ONE
--- OUTSIDE RECORDS SUMMARY | 2018-09-25 13:02 | XMS REPORT ---
:1955 Author Organization [employer] Care Team Providers Name Role Phone Gutierrez, Na Provider Role Unavailable Allergies, Adverse Reactions, Alerts Substance Reaction Event Type sulfa Info Not Available Drug Allergy Vancomycin HCl Info Not Available Drug Allergy Rocephin Info Not Available Drug Allergy Macrobid Info Not Available Drug Allergy Lincocin Info Not Available Drug Allergy Fentanyl Info Not Available Drug Allergy Betadine Info Not Available Drug Allergy Augmentin Info Not Available Drug Allergy Aloe Vera Info Not Available Drug Allergy Problems Problem Type Condition Code Onset Dates Condition Status Assessment Chronic suprapubic catheter Z93.59 Active Assessment Unsteady gait R26.81 Active Assessment Wheelchair dependence Z99.3 Active Problem Simple chronic bronchitis J41.0 Active Assessment Other instability, 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 Active Problem Hx of laparoscopic gastric banding Z98.84 Active Assessment Simple chronic bronchitis J41.0 Active Problem Mixed hyperlipidemia E78.2 Active Problem Fibromyalgia M79.7 Active Problem Unsteady gait R26.81 Active Problem Decreased mobility R26.89 Active Problem Positive depression screening Z13.31 Active Assessment Primary osteoarthritis involving M15.0 Active multiple joints Assessment Lymphedema I89.0 Active Problem Wheelchair dependence Z99.3 Active Assessment 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 Active Problem Pressure injury of right upper L89.211 Active thigh, stage 1 Problem Lymphedema I89.0 Active Problem Chronic suprapubic catheter Z93.59 Active Problem Pressure injury of left thigh, L89.221 Active stage 1 Problem Continuous leakage of urine N39.45 Active Assessment Fibromyalgia M79.7 Active Assessment Decreased mobility R26.89 Active Problem Constipation, unspecified K59.00 Active constipation type Problem Primary osteoarthritis involving M15.0 Active multiple joints Problem Encounter for care or replacement Z43.5 Active of suprapubic tube Problem Urinary incontinence, unspecified R32 Active type Medications Medication Code Code Instructions Start End Status Dosage System Date Date Indomethacin [facility] 87898892352 50 MG Orally Active 1 capsule Twice a day as with food or needed for 3 milk days at at time for acute pain Gabapentin ND 23738024317 300 MG Orally Active 1 capsule three times a day Spiriva ND 18857976560 18 MCG Active 1 capsule HandiHaler Inhalation Once a day Benadryl Allergy ND 90678442163 25 MG Orally Active 1 tablet as every 8 hrs needed Lovastatin [facility] 55743964246 20 MG Orally Active 1 tablet with Once a day the evening meal Motrin NDC 0 400 mg by Active one mouth Every 6 hours prn fever Oxybutynin ND 01427635087 5 MG Orally May Active 1 tablet Chloride BID 2018 Hydrocortisone [facility] 51934988042 2.5 % Rectal Active 1 application Twice a day to affected area Furosemide ND 64893299138 40 MG Orally Active 1 tablet Once a day Klor-Con 10 [facility] 36923401885 10 MEQ Orally Active 1 tablet with Twice a day food Docusate Sodium ND 81825322439 100 MG Orally Active 1 capsule as Once a day needed Motrin PM ND 80549084849 200-38 MG Active 2 tablets at Orally Once a bedtime as day needed Aspir-81 [facility] 90437638706 81 MG Orally Active 1 tablet Once a day Nystatin [facility] 34758471761 755215 UNIT/GM Active 1 application Externally to affected Twice a day area Hydrocodone-Aceta [facility] 92675633082 7.5-325 MG Active 1 tablet as minophen Orally every 6 needed hrs Fluocinonide ND 80855758324 0.05 % Active 1 application Externally to affected Twice a day area Sennosides [facility] 99[address]-36566 25 MG/15ML Active 15 ml at Orally Once a bedtime as day needed Results No Known Results Summary Purpose [employer] Submission
--- OUTSIDE RECORDS SUMMARY | 2018-09-25 13:02 | XMS REPORT ---
:1955 Author Organization [employer] Care Team Providers Name Role Phone Gutierrez, Na Provider Role Unavailable Allergies No Known Allergies Problems Problem Type Condition Code Onset Dates Condition Status Problem Mixed hyperlipidemia E78.2 Active Problem Fibromyalgia M79.7 Active Problem Unsteady gait R26.81 Active Problem Decreased mobility R26.89 Active Problem Positive depression screening Z13.31 Active Problem Wheelchair dependence Z99.3 Active Problem Pressure injury of right upper L89.211 Active thigh, stage 1 Problem Lymphedema I89.0 Active Problem Chronic suprapubic catheter Z93.59 Active Problem Pressure injury of left thigh, L89.221 Active stage 1 Problem Continuous leakage of urine N39.45 Active Assessment Urinary tract infection, site not N39.0 Active specified Assessment Infection and inflammatory T83.511D Active reaction due to indwelling urethral catheter, subsequent encounter Problem Constipation, unspecified K59.00 Active constipation type Problem Primary osteoarthritis involving M15.0 Active multiple joints Problem Encounter for care or replacement Z43.5 Active of suprapubic tube Problem Simple chronic bronchitis J41.0 Active Problem Urinary incontinence, unspecified R32 Active type Problem Hx of laparoscopic gastric banding Z98.84 Active Medications No Known Medications Results No Known Results Summary Purpose [employer] Submission
--- OUTSIDE RECORDS SUMMARY | 2018-09-25 13:02 | XMS REPORT ---
[...] Condition Code Onset Dates Condition Status Assessment Hx of laparoscopic gastric banding Z98.84 Active Assessment Unsteady gait R26.81 Active Assessment Positive depression screening Z13.31 Active Assessment Constipation, unspecified K59.00 Active constipation type Assessment Chronic suprapubic catheter Z93.59 Active Problem Primary osteoarthritis involving M15.0 Active multiple joints Assessment Primary osteoarthritis involving M15.0 Active multiple joints Problem Simple chronic bronchitis J41.0 Active Assessment Urinary incontinence, unspecified R32 Active type Problem Hx of laparoscopic gastric banding Z98.84 Active Problem Unsteady gait R26.81 Active Problem Mixed hyperlipidemia E78.2 Active Problem Positive depression screening Z13.31 Active Problem Chronic suprapubic catheter Z93.59 Active Assessment Lymphedema I89.0 Active Assessment Pressure injury of left thigh, L89.221 Active stage 1 Problem Wheelchair dependence Z99.3 Active Assessment Pressure injury of right upper L89.211 Active thigh, stage 1 Problem Lymphedema I89.0 Active Problem Fibromyalgia M79.7 Active Problem Pressure injury of left thigh, L89.221 Active stage 1 Problem Pressure injury of right upper L89.211 Active thigh, stage 1 Assessment Fibromyalgia M79.7 Active Assessment Simple chronic bronchitis J41.0 Active Assessment Mixed hyperlipidemia E78.2 Active Problem Urinary incontinence, unspecified R32 Active type Problem Constipation, unspecified K59.00 Active constipation type Problem Continuous leakage of urine N39.45 Active Problem Encounter for care or replacement Z43.5 Active of suprapubic tube Medications Medication Code Code Instructions Start End Status Dosage System Date Date Furosemide ND 22798984523 40 MG Orally Active 1 tablet Once a day Klor-Con 10 [facility] 97446907824 10 MEQ Orally Active 1 tablet with Twice a day food Aspir-81 [facility] 43854515462 81 MG Orally Active 1 tablet Once a day Benadryl Allergy ND 51594319468 25 MG Orally Active 1 tablet as every 8 hrs needed Hydrocodone-Aceta ND 65960917979 7.5-325 MG Active 1 tablet as minophen Orally every 6 needed hrs Motrin NDC 0 400 mg by Active one mouth Every 6 hours prn fever Hydrocortisone [facility] 53979599744 2.5 % Rectal Active 1 application Twice a day to affected area Gabapentin ND 93857788277 300 MG Orally Active 1 capsule three times a day Spiriva [facility] 79971661677 18 MCG Active 1 capsule HandiHaler Inhalation Once a day Oxybutynin ND 14472493878 5 MG Orally May Active 1 tablet Chloride BID , , 2018 2018 Indomethacin [facility] 44933371485 50 MG Orally August Active 1 capsule Twice a day as 18, 18, with food or needed for 3 2018 2018 milk days at at time for acute pain Fluocinonide ND 52421180037 0.05 % Active 1 application Externally to affected Twice a day area Motrin PM [facility] 17031586427 200-38 MG Active 2 tablets at Orally Once a bedtime as day needed Sennosides [facility] 33434-70194 25 MG/15ML Active 15 ml at Orally Once a bedtime as day needed Nystatin [facility] 15740263568 440675 UNIT/GM Active 1 application Externally to affected Twice a day area Lovastatin [facility] 49782576520 20 MG Orally Active 1 tablet with Once a day the evening meal Docusate Sodium ND 48048721381 100 MG Orally Active 1 capsule as Once a day needed Results No Known Results Summary Purpose eClinicalWorks Submission
[2018-09-25 13:48] VITALS: BP 127/70; TEMP 98.8; O2SAT 97
[2018-09-25 13:49] VITALS: BMI 54.9
== END ==
LOC: DS 12:52
PROVIDERS: ATTEND Family Medicine
DX: N39.0 Urinary tract infection, site not specified (principal); T83.511D Infection and inflammatory reaction due to indwelling urethral catheter, subsequent encounter
CPT/HCPCS: 96365

== ENCOUNTER 2019-09-16 13:42 | Inpatient (IN) | payer OTHER ==
[2019-09-16 15:25] LABS: Basophils % 0.8 % (0-1.3); Hematocrit 38.1 % (36.0-45.0); Lymphocytes % 13.1 % (15.3-44.8); MPV 9.4 fL (7.6-11.3)
[2019-09-16 15:37] LABS: Potassium 2.8 mmol/L (3.5-5.1)
--- NOTE | 2019-09-16 15:43 | ER ---
Nurse's Notes [facility] Name: Jv Bryant Age: 64 yrs Sex: Female : 1955 Arrival Date: 09/16/2019 Time: 14:04 Bed 23 Private MD: Diagnosis: Cellulitis of right lower limb;Hypokalemia Presentation: 09/15 14:04 Chief complaint: Patient states: "MY HOMEHEALTH NURSE CAME AND TOOK PICTURES OF MY LEGS vc AND FEET AND SHOWED DR. EWING AND HE WANTED ME TO COME TO THE ER TO BE CHECKED OUT, I'M ALSO HAVING MORE PAIN THAN NORMAL.". Coronavirus screen: Proceed with normal triage. Patient denies a cough. Patient reports shortness of breath or difficulty breathing. Patient denies measured and/or subjective temperature greater than 100.4F prior to today's visit. Patient denies travel on a cruise ship or to a country the [facility] currently lists as an affected area. Patient denies contact with known and/or suspected case of COVID-19. Ebola Screen: No symptoms or risks identified at this time. Initial Sepsis Screen: Does the patient meet any 2 criteria? No. Patient's initial sepsis screen is negative. Does the patient have a suspected source of infection? No. Patient's initial sepsis screen is negative. Risk Assessment: Do you want to hurt yourself or someone else? Patient reports no desire to harm self or others. Onset of symptoms is unknown. 14:04 Method Of Arrival: EMS: [facility] vc 14:04 Acuity: SKYLER 3 vc Historical: - Allergies: 14:11 aloe vera; vc 14:11 Augmentin; vc 14:11 Bactrim; vc 14:11 Betadine; vc 14:11 Celery (Apium Graveolens) (Umbelliferae); vc 14:11 Demerol; vc 14:11 Fentanyl; vc 14:11 FLU VACCINE; vc 14:11 Iodine; vc 14:11 Lincocin; vc 14:11 MACROLIDES; vc 14:11 mycin; vc 14:11 peppers; vc 14:11 Pneumovax 23; vc 14:11 Rocephin; vc 14:11 Stelazine; vc 14:11 Sulfa (Sulfonamide Antibiotics); vc 14:11 Vancomycin; vc - Home Meds: 14:11 aspirin 81 mg Oral chew 1 tab once daily [Active]; diphenhydramine HCl 25 mg Oral tab 1 vc tab nightly [Active]; docusate sodium 100 mg Oral tab 2 tabs once daily for constipation [Active]; Fluocinolone Acetonide Topical [Active]; furosemide 40 mg Oral tab 1 tab 2 times per day [Active]; gabapentin 100 mg Oral cap 3 caps nightly for Neuropathic Pain [Active]; hydrocodone-acetaminophen 7.5-325 mg Oral tab 1 tab three times a day [Active]; lovastatin 20 mg Oral tab once daily [Active]; potassium chloride 10 mEq Oral TbER 2 tabs once daily [Active]; vitamin B12 IM twice a month [Active]; metoprolol tartrate 25 mg Oral tab 1 tab 2 times per day [Active]; - PMHx: 14:11 ADD/ADHD; Arthritis; Chronic pain; COPD; Fibromyalgia; frequent UTI'S; heart disease- vc unspecified; Hyperlipidemia; Hypertension; insomnia; lymphedema; PERIPHERAL NEUROPATHY; unspecified kidney failure; - Immunization history:: Adult Immunizations up to date. - Social history:: Smoking status: Patient denies any tobacco usage or history of. Screenin:15 Abuse screen: Denies threats or abuse. Nutritional screening: No deficits noted. vc Tuberculosis screening: No symptoms or risk factors identified. 14:15 Fall Risk None identified. vc Assessment: 14:15 General: Appears in no apparent distress. uncomfortable, obese, unkempt, Behavior is vc calm, cooperative, appropriate for age. Pain: Complains of pain in coccyx, left hip, right hip, right leg and left leg Pain does not radiate. Pain currently is 8 out of 10 on a pain scale. Quality of pain is described as sharp, stabbing. Neuro: Level of Consciousness is awake, alert, obeys commands, Oriented to person, place, time, situation. Cardiovascular: Denies chest pain, shortness of breath, Heart tones present Edema is 4+ to left ankle, left foot, left toes, right ankle, right foot and right toes Rhythm is regular. Respiratory: Respiratory effort is even, labored, Respiratory pattern is regular, symmetrical, Breath sounds with wheezes bilaterally. the patient has mild shortness of breath Denies cough, shortness of breath. GI: No signs and/or symptoms were reported involving the gastrointestinal system. : Pedroza in place to gravity drainage. EENT: No signs and/or symptoms were reported regarding the EENT system. Derm: Skin has blisters on bilateral legs and feet Skin is moist, Skin is red, Wound noted right foot, left lateral malleolus, left first toe, left second toe, left third toe, left fourth toe, left fifth toe, right leg and left leg Decubitus located on right left hip(s) Reports pain that is 8 out of 10 on a pain scale. Musculoskeletal: Range of motion: limited in left knee, left ankle, right knee and right ankle. 15:15 Reassessment: Patient appears in no apparent distress at this time. Patient and/or vc family updated on plan of care and expected duration. Pain level reassessed. Patient states symptoms have not improved. 16:15 Reassessment: Patient appears in no apparent distress at this time. Patient and/or vc family updated on plan of care and expected duration. Pain level reassessed. Patient states symptoms have not improved. 17:15 Reassessment: Patient appears in no apparent distress at this time. Patient and/or vc family updated on plan of care and expected duration. Pain level reassessed. Patient states symptoms have not improved. 18:15 Reassessment: Patient appears in no apparent distress at this time. Patient and/or vc family updated on plan of care and expected duration. Pain level reassessed. Patient states symptoms have not improved. 19:15 Reassessment: Patient appears in no apparent distress at this time. Patient and/or vc family updated on plan of care and expected duration. Pain level reassessed. Patient states symptoms have not improved. 20:15 Reassessment: Patient appears in no apparent distress at this time. Patient and/or vc family updated on plan of care and expected duration. Pain level reassessed. Patient states symptoms have not improved. 21:15 Reassessment: Patient appears in no apparent distress at this time. Patient and/or vc family updated on plan of care and expected duration. Pain level reassessed. Patient states symptoms have not improved. 22:15 Neuro: Level of Consciousness is awake, alert, obeys commands, Oriented to person, vc place, time, situation. Respiratory: Respiratory effort is even, labored, Respiratory pattern is regular, symmetrical. 22:18 Reassessment: Patient appears in no apparent distress at this time. Patient and/or vc family updated on plan of care and expected duration. Pain level reassessed. Patient states symptoms have not improved. Vital Signs: 14:04 BP 117 / 68; Pulse 63; Resp 17; Temp 98(O); Pulse Ox 96% on R/A; Height 5 ft. 3 in. vc (160.02 cm); Pain 5/10; 17:00 BP 118 / 61; Pulse 66; Resp 20; Pulse Ox 99% on R/A; vc 18:00 BP 132 / 64; Pulse 66; Resp 20; Pulse Ox 96% on R/A; vc 19:00 BP 125 / 84; Pulse 68; vc 20:00 BP 122 / 59; Pulse 67; Pulse Ox 95% on R/A; vc 21:00 BP 123 / 57; Pulse 67; Resp 18; Pulse Ox 93% on R/A; vc 22:18 BP 121 / 63; Pulse 66; Resp 19; Temp 98; Pulse Ox 94% on R/A; vc ED Course: 14:04 Patient arrived in ED. vc 14:08 Triage completed. vc 14:09 Angela Hester FNP-C [facility]. kb 14:09 Art Jackson MD is Attending Physician. kb 14:15 Arm band placed on right wrist. vc 14:15 Patient has correct armband on for positive identification. Bed in low position. Call vc light in reach. Side rails up X2. Pulse ox on. NIBP on. 14:26 Yessica Ann, RN is Primary Nurse. vc 15:42 Ramesh Cisneros FNP-C is Hospitalizing Provider. kb 23:10 No provider procedures requiring assistance completed. Patient admitted, IV remains in vc place. Administered Medications: 16:11 Drug: Meropenem 1 grams Route: IV; Rate: calculated rate; Site: right antecubital; vc 17:15 Follow up: IV Status: Completed infusion; IV Intake: 100ml vc 16:11 Drug: Potassium Chloride 40 mEq Route: PO; vc 17:15 Follow up: Response: No adverse reaction vc 17:06 Drug: NS 0.9% with KCl 40 mEq/L 1000 ml Route: IV; Rate: 100 ml/hr; Site: right vc antecubital; 22:30 Follow up: IV Status: Infusion continued upon admission vc Intake: 17:15 IV: 100ml; Total: 100ml. vc Outcome: 15:43 Decision to Hospitalize by Provider. kb 23:10 Patient left the ED. mw2 23:10 Admitted to Med/surg accompanied by nurse, via stretcher, room 221, with chart, Report vc called to ALO Pleitez 23:10 Condition: good 23:10 Condition: good vc 23:10 Instructed on the need for admit, Demonstrated understanding of instructions. Signatures: Angela Hester, SEAN-Francy [employer]-Bobby Mon mw2 Yessica Ann RN RN vc Corrections: (The following items were deleted from the chart) 09/16 02:50 09/15 22:18 BP 122 / 59; Pulse 62bpm; Resp 19bpm; Pulse Ox 93% RA; Temp 98F; vc vc
--- NOTE | 2019-09-16 15:43 | EDPHYS ---
Physician Documentation [facility] Name: Jv Bryant Age: 64 yrs Sex: Female : 1955 Arrival Date: 09/16/2019 Time: 14:04 Bed 23 Private MD: ED Physician Art Jackson HPI: 09/15 15:29 This 64 yrs old Female presents to ER via EMS with complaints of Leg kb Swelling, Leg Pain. 15:43 The patient presents with cellulitis of the right leg. Description: erythematous, hot, kb swollen. Onset: The symptoms/episode began/occurred 4 day(s) ago. Possible cause(s): lymphedema. Associated signs and symptoms: Pertinent positives: drainage, erythema, fever, swelling. Modifying factors: the symptoms are alleviated by nothing, the symptoms are aggravated by nothing. Severity of symptoms: At their worst the symptoms were moderate, in the emergency department the symptoms are unchanged. The patient has not experienced similar symptoms in the past. The patient has not recently seen a physician. Historical: - Allergies: 14:11 aloe vera; vc 14:11 Augmentin; vc 14:11 Bactrim; vc 14:11 Betadine; vc 14:11 Celery (Apium Graveolens) (Umbelliferae); vc 14:11 Demerol; vc 14:11 Fentanyl; vc 14:11 FLU VACCINE; vc 14:11 Iodine; vc 14:11 Lincocin; vc 14:11 MACROLIDES; vc 14:11 mycin; vc 14:11 peppers; vc 14:11 Pneumovax 23; vc 14:11 Rocephin; vc 14:11 Stelazine; vc 14:11 Sulfa (Sulfonamide Antibiotics); vc 14:11 Vancomycin; vc - Home Meds: 14:11 aspirin 81 mg Oral chew 1 tab once daily [Active]; diphenhydramine HCl 25 mg Oral tab 1 vc tab nightly [Active]; docusate sodium 100 mg Oral tab 2 tabs once daily for constipation [Active]; Fluocinolone Acetonide Topical [Active]; furosemide 40 mg Oral tab 1 tab 2 times per day [Active]; gabapentin 100 mg Oral cap 3 caps nightly for Neuropathic Pain [Active]; hydrocodone-acetaminophen 7.5-325 mg Oral tab 1 tab three times a day [Active]; lovastatin 20 mg Oral tab once daily [Active]; potassium chloride 10 mEq Oral TbER 2 tabs once daily [Active]; vitamin B12 IM twice a month [Active]; metoprolol tartrate 25 mg Oral tab 1 tab 2 times per day [Active]; - PMHx: 14:11 ADD/ADHD; Arthritis; Chronic pain; COPD; Fibromyalgia; frequent UTI'S; heart disease- vc unspecified; Hyperlipidemia; Hypertension; insomnia; lymphedema; PERIPHERAL NEUROPATHY; unspecified kidney failure; - Immunization history:: Adult Immunizations up to date. - Social history:: Smoking status: Patient denies any tobacco usage or history of. ROS: 15:26 Cardiovascular: Negative for chest pain, palpitations, and edema, Respiratory: Negative kb for shortness of breath, cough, wheezing, and pleuritic chest pain, Abdomen/GI: Negative for abdominal pain, nausea, vomiting, diarrhea, and constipation, MS/Extremity: Negative for injury and deformity, Neuro: Negative for headache, weakness, numbness, tingling, and seizure. 15:26 Skin: Positive for erythema, swelling, of the right leg. 15:27 Constitutional: Positive for chills, fever. kb Exam: 15:26 Constitutional: This is a well developed, well nourished patient who is awake, alert, kb and in no acute distress. Head/Face: Normocephalic, atraumatic. Chest/axilla: Normal chest wall appearance and motion. Nontender with no deformity. No lesions are appreciated. Cardiovascular: Regular rate and rhythm with a normal S1 and S2. No gallops, murmurs, or rubs. Normal PMI, no JVD. No pulse deficits. Respiratory: Lungs have equal breath sounds bilaterally, clear to auscultation and percussion. No rales, rhonchi or wheezes noted. No increased work of breathing, no retractions or nasal flaring. Abdomen/GI: Soft, non-tender, with normal bowel sounds. No distension or tympany. No guarding or rebound. No evidence of tenderness throughout. MS/ Extremity: Pulses equal, no cyanosis. Neurovascular intact. Full, normal range of motion. Neuro: Awake and alert, GCS 15, oriented to person, place, time, and situation. Cranial nerves II-XII grossly intact. Motor strength 5/5 in all extremities. Sensory grossly intact. Cerebellar exam normal. Normal gait. 15:26 Skin: cellulitis, that is moderate, on the right leg, lymphedema noted to bilateral lower extremities. Vital Signs: 14:04 BP 117 / 68; Pulse 63; Resp 17; Temp 98(O); Pulse Ox 96% on R/A; Height 5 ft. 3 in. vc (160.02 cm); Pain 5/10; 17:00 BP 118 / 61; Pulse 66; Resp 20; Pulse Ox 99% on R/A; vc 18:00 BP 132 / 64; Pulse 66; Resp 20; Pulse Ox 96% on R/A; vc 19:00 BP 125 / 84; Pulse 68; vc 20:00 BP 122 / 59; Pulse 67; Pulse Ox 95% on R/A; vc 21:00 BP 123 / 57; Pulse 67; Resp 18; Pulse Ox 93% on R/A; vc 22:18 BP 121 / 63; Pulse 66; Resp 19; Temp 98; Pulse Ox 94% on R/A; vc MDM: 14:09 Patient medically screened. kb 15:25 Data reviewed: vital signs, nurses notes. Data interpreted: Pulse oximetry: on room air kb is 96 %. Interpretation: normal. 15:28 Counseling: I had a detailed discussion with the patient and/or guardian regarding: the kb historical points, exam findings, and any diagnostic results supporting the discharge/admit diagnosis, lab results, the need for further work-up and treatment in the hospital. Physician consultation: Fco Tristan MD was contacted at 14:15, regarding consult, patient's condition, in the emergency department to see patient at 14:15. 15:29 Physician consultation: Ramesh VIRK was contacted at 14:45, regarding admission, kb to the medical/surgical unit. patient's condition, and will see patient in ED. 15:33 ED course: Dr rTistan requests dry gauze dressings with margarette wrap daily and a consult kb to DR Hansen. 09/15 14:20 Order name: CBC with Diff kb 09/15 14:20 Order name: Basic Metabolic Panel kb 09/15 14:20 Order name: Blood Culture Adult (2) kb 09/15 14:20 Order name: Lactate kb 09/15 14:20 Order name: Procalcitonin kb 09/15 15:33 Order name: CBC with Automated Diff; Complete Time: 15:36 [facility] 09/15 14:20 Order name: IV Start; Complete Time: 15:05 kb 09/15 15:34 Order name: Lactate; Complete Time: 15:36 [facility] 09/15 15:37 Order name: Basic Metabolic Panel; Complete Time: 15:40 [facility] 09/15 16:03 Order name: Procalcitonin; Complete Time: 16:06 [facility] 09/15 22:50 Order name: Blood Culture EDNJ Administered Medications: 16:11 Drug: Meropenem 1 grams Route: IV; Rate: calculated rate; Site: right antecubital; vc 17:15 Follow up: IV Status: Completed infusion; IV Intake: 100ml vc 16:11 Drug: Potassium Chloride 40 mEq Route: PO; vc 17:15 Follow up: Response: No adverse reaction vc 17:06 Drug: NS 0.9% with KCl 40 mEq/L 1000 ml Route: IV; Rate: 100 ml/hr; Site: right vc antecubital; 22:30 Follow up: IV Status: Infusion continued upon admission vc Disposition: 09/16 15:56 Co-signature as Attending Physician, Art Jackson MD I agree with the assessment and kdr plan of care. Disposition: 09/16/19 15:43 Hospitalization ordered by Ramesh Cisneros for Observation. Preliminary diagnosis are Cellulitis of right lower limb, Hypokalemia. - Bed requested for Telemetry/MedSurg (observation). - Status is Observation. mw2 - Condition is Stable. - Problem is new. - Symptoms are unchanged. Signatures: Dispatcher [employer] [facility] Angela Hester, SULLY ESTRADA-Elbertb Art Jcakson MD MD [facility] Ramesh Cisneros FNP-C FNP-Cla1 Joleen Glynn RN RN Bobby Harden mw2 Marija Rodríguez Vanessa RN RN vc Corrections: (The following items were deleted from the chart) 09/15 15:28 15:26 Constitutional: Negative for fever, chills, and weight loss, Cardiovascular: kb Negative for chest pain, palpitations, and edema, Respiratory: Negative for shortness of breath, cough, wheezing, and pleuritic chest pain, Abdomen/GI: Negative for abdominal pain, nausea, vomiting, diarrhea, and constipation, MS/Extremity: Negative for injury and deformity, Neuro: Negative for headache, weakness, numbness, tingling, and seizure, kb 15:45 15:26 Skin: cellulitis, that is moderate, on the right leg, kb kb 16:13 15:43 [facility]. Preliminary eb diagnosis is Cellulitis of right lower limb; Hypokalemia. Bed requested for Telemetry/MedSurg (observation). Status is Observation. Condition is Stable. Problem is new. Symptoms are unchanged. kb 21:36 16:13 09/16/2019 15:43 [facility]. cg Preliminary diagnosis is Cellulitis of right lower limb; Hypokalemia. Bed requested for [facility] ER HOLD. Status is Observation. Condition is Stable. Problem is new. Symptoms are unchanged. eb 23:10 21:36 09/16/2019 15:43 [facility] mw2 Preliminary diagnosis is Cellulitis of right lower limb; Hypokalemia. Bed requested for Telemetry/MedSurg (observation). Status is Observation. Condition is Stable. Problem is new. Symptoms are unchanged. cg
--- OUTSIDE RECORDS SUMMARY | 2019-09-16 15:44 | XMS REPORT | Continuity of Care Document ---
:1955 Author Organization [facility] t Address [address] [place] [address] Dr. [address] [place] [address] Care Team Providers Name Role Phone Unavailable Unavailable Unavailable Problems Condition Condition Condition Status Onset Resolution Last Treating Co mments Source Name Details Category Date Date Treatment Clinician Date Hx of Hx of Problem Active [facility] laparoscop laparoscop Sanna kes - ic gastric ic gastric Me [facility] Unsteady Unsteady Problem Active [facility] Positive Positive Problem Active [facility] depression depression Sanna kes - screening screening Evert nuno l [facility] Constipati Constipati Problem Active [facility] on, on, [facility] - unspecifie unspecifie Me moria d d l constipati constipati Ou tpati on type on type ent Clinics Chronic Chronic Problem Active [facility] suprapubic suprapubic Sanna kes - catheter catheter Memori a l [facility] ent [facility]ics Primary Primary Problem Active [facility] osteoarthr osteoarthr Sanna kes - itis itis Memoria involving involving l multiple multiple Outpat i joints joints ent Clinics Simple Simple Problem Active [facility] chronic chronic [facility] - bronchitis bronchitis Me moria l [facility] Urinary Urinary Problem Active [facility] incontinen incontinen Sanna kes - ce, ce, Memoria unspecifie unspecifie l d type d type [facility] Mixed Mixed Problem Active [facility] hyperlipid hyperlipid Sanna kes - emia emia Memoria l [facility]ics Lymphedema Lymphedema Problem Active [facility] Pressure Pressure Problem [facility] injury of injury of Luke [facility] - left left Memoria thigh, thigh, l stage 1 stage 1 [facility] Wheelchair Wheelchair Problem Active [facility] dependence dependence Sanna kes - Memoria l [facility] Pressure Pressure Problem Active [facility] injury of injury of [facility] - right right Memoria upper upper l thigh, thigh, Outpati stage 1 stage 1 ent Clinics Fibromyalg Fibromyalg Problem Active [facility] ia ia [facility] Continuous Continuous Problem Active [facility] leakage of leakage of Sanna kes - urine urine [facility] Encounter Encounter Problem Active [facility] for care for care [facility] - or or Memoria replacemen replacemen l t of t of [facility] suprapubic suprapubic en t tube tube Clinics Decreased Decreased Problem Active [facility] mobility mobility [facility] Essential Essential Problem Active [facility] hypertensi hypertensi Sanna kes - on on [facility] Pressure Pressure Problem Active [facility] injury of injury of Luke [facility] - right right Memoria buttock, buttock, l stage 2 stage 2 [facility] Allergies, Adverse Reactions, Alerts Allergy Allergy Status Severity Reaction(s) Onset Inactive Treating Comm ents Source Name Type Date Date Clinician sulfa Adverse Active Info Not [facility] Reaction Available [facility] Rocephin Adverse Active Info Not [facility] Reaction Available [facility] Macrobid Adverse Active Info Not [facility] Reaction Available [facility] Lincocin Adverse Active Info Not [facility] Reaction Available [facility] Fentanyl Adverse Active Info Not [facility] Reaction Available [facility] Betadine Adverse Active Info Not [facility] Reaction Available [facility] Augmenti Adverse Active Info Not [facility] n Reaction Available [facility] Aloe Adverse Active Info Not [facility] Vera Reaction Available [facility] Vancomyc Adverse Active Info Not [facility] in HCl Reaction Available [facility] Medications Ordered Filled Start Stop Current Ordering Indication Dosage Frequency Signature Comments Components Source Medication Medication Date Date Medication? Clinician (SIG) Name Name Doxycycline Doxycycline 2019- Yes Na Gutierrez [address] [facility] Monohydrate Monohydrate 07-05 [facility] - 00:00: 00:00 Memoria 00 :00 [facility] Tramadol Tramadol 2019- Yes Na Gutierrez [address] [facility] HCl HCl 4-28 05-05 as needed [facility] - 00:00: 00:00 Memoria 00 :00 l Outpati ent Clinics Metoprolol Metoprolol 2020-0 Yes Na Gutierrez [address] [facility] Tartrate Tartrate 4- with food Sanna kes - 00:00: Memoria 00 l Outpati ent Clinics Motrin PM Motrin PM Yes Na Gutierrez [address] [facility] at bedtime [facility] - as needed Memoria l Outpati ent Clinics Hydrocortis Hydrocortis Yes Na Gutierrez [address] [facility] one one applicatio [facility] - n to Memoria affected l area Outpati ent Clinics Furosemide Furosemide Yes Na Gutierrez TAKE [address] [facility] TABLET BY [facility] - MOUTH Memoria TWICE A l DAY Outpati ent Clinics Gabapentin Gabapentin Yes Na Gutierrez [address] [facility] Docusate Docusate Yes Na Gutierrez [address] [facility] Sodium Sodium as needed [facility] Motrin Motrin Yes Na Gutierrez one [facility] Indomethaci Indomethaci Yes Na Gutierrez [address] [facility] n n with food [facility] - or milk Memoria l Outpati ent Clinics Spiriva Spiriva Yes Na Gutierrez [address] HandiHaler HandiHaler Jin es - Memoria l Outpati ent Clinics Klor-Con 10 Klor-Con 10 Yes Na Gutierrez [address] [facility] with food [facility] Aspir-81 Aspir-81 Yes Na Gutierrez [address] [facility] Benadryl Benadryl Yes Na Gutierrez [address] [facility] Allergy Allergy as needed [facility] - Memoria l Outpati ent Clinics Nystatin Nystatin Yes Na Gutierrez [address] [facility] applicatio [facility] - n to Memoria affected l area Outpati ent Clinics Xopenex HFA Xopenex HFA Yes Na Gutierrez [address] [facility] needed [facility]ics Fluocinonid Fluocinonid Yes Na Gutierrez [address] [facility] e e applicatio [facility] - n to Memoria affected l area Outpati ent Clinics Hydrocodone Hydrocodone Yes Na Gutierrez [address] [facility] -Acetaminop -Acetaminop as needed [facility] - hen hen Memoria l Outpati ent Clinics Sennosides Sennosides Yes Na Gutierrez [address] [facility] bedtime as [facility] - needed Memoria l Outpati ent Clinics Furosemide Furosemide Yes Na Gutierrez [address] [facility] Lovastatin Lovastatin Yes Na Gutierrez [address] [facility] with the [facility] - evening Memoria meal l Outpati ent Clinics Oxybutynin Oxybutynin Yes Na Gutierrez [address] [facility] Chloride Chloride [facility] Procedures This patient has no known procedures. Encounters Start End Encounter Admission Attending Care Care Encounter Source Date/Time Date/Time Type Type Clinicians Facility Department ID 2019-09-14 2019-09-14 [facility] [id number] [facility] 13:55:00 13:55:00 [facility] Medicine l Medicine Outpati ent Clinics 2019-08-12 2019-08-12 [facility] [id number] [facility] 11[facility]39:00 11:39:00 [facility] Medicine l Medicine Outpati ent Clinics 2019-07-09 2019-07-09 [facility] [id number] [facility] 11:26:00 11:26:00 t [employer] [facility] Medicine l Medicine Outpati ent Clinics 2019-07-06 2019-07-06 [facility] [id number] [facility] 14:00:00 14:00:00 [facility] Medicine l Medicine Outpati ent Clinics 2019-06-11 2019-06-11 [facility] [id number] [facility] 10:29:00 10:29:00 [facility] Medicine l Medicine Outpati ent Clinics 2019-06-08 2019-06-08 [facility] [id number] [facility] 10:57:00 10:57:00 t [employer] [facility] Medicine l Medicine Outpati ent Clinics 2019-05-24 2019-05-24 [facility] [id number] [facility] 14:44:00 14:44:00 [facility] Medicine l Medicine Outpati ent Clinics 2019-04-12 2019-04-12 [facility] [id number] [facility] 10:58:00 10:58:[place] [employer] [place] [facility] Family Medicine l Medicine Outpati ent Clinics 2019-04-08 2019-04-08 [facility] [id number] [facility] 17:13:00 17:13:00 [place] [employer] - [address] [facility] Medicine l Medicine Outpati ent Clinics 2019-03-26 2019-03-26 [facility] [id number] 07:58:00 07:58:00 [place] [employer] [place] [facility] [address] [facility] Medicine l Medicine Outpati ent Clinics 2019-02-01 2019-02-01 [facility] [id number] [facility] 10:49:00 10:49:00 [place] [employer] [place] - [address] [facility] l Medicine Outpati ent Clinics 2019-01-21 2019-01-21 [facility] [id number] [facility] 12:09:00 12:09:00 [place] [employer] [place] [address] [facility] Medicine l Medicine Outpati ent Clinics 2018-12-31 2018-12-31 [facility] [id number] [facility] 13:40:00 13:40:00 [place] [employer] [place] [address] [facility] Medicine l Medicine Outpati ent Clinics 2018-12-24 2018-12-24 [facility] [id number] 16:51:00 16:51:00 [place] [employer] [address] [facility] Medicine l Medicine Outpati ent Clinics 2018-12-22 2018-12-22 [facility] [id number] 10:09:00 10:09:00 [place] [employer] [place] [address] [facility] Medicine l Medicine Outpati ent Clinics 2018-12-16 2018-12-16 [facility] [id number] 13:32:00 13:32:00 [place] [employer] [place] [address] [facility] Medicine l Medicine Outpati ent Clinics 2018-12-09 2018-12-09 [facility] [id number] [facility] 15:07:00 15:07:00 [place] [employer] [place] - [facility] l Medicine Outpati ent Clinics 2018-12-08 2018-12-08 [facility] [id number] [facility] 09:21:00 09:21:00 [place] [address] [place] - [address] [facility] l Medicine Outpati ent Clinics 2018-12-07 2018-12-07 [facility] [id number] [facility] 15:10:00 15:10:00 [place] [employer] [place] - [address] [facility] l Medicine Outpati ent Clinics 2018-10-29 2018-10-29 [facility] [id number] 11:00:00 11:00:00 [place] [employer] - [address] [facility] Medicine Outpati ent Clinics 2018-10-20 2018-10-20 [facility] [id number] 13:23:00 13:23:00 [place] [employer] - [address] [facility] Medicine Outpati ent Clinics 2018-10-05 2018-10-05 [facility] [id number] 16:27:00 16:27:00 [place] [employer] - [address] [facility] Medicine Outpati ent Clinics 2018-09-25 2018-09-25 [facility] [id number] 16:15:00 16:15:00 [place] [employer] - [address] [facility] Medicine Outpati ent Clinics 2018-09-23 2018-09-23 [facility] [id number] 15:54:00 15:54:00 [place] [employer] - [address] [facility] Medicine Outpati ent Clinics 2018-08-27 2018-08-27 [facility] [id number] 16:00:00 16:00:00 [place] [employer] - [address] [facility] Medicine Outpati ent Clinics 2018-08-25 2018-08-25 [facility] [id number] 15:20:00 15:20:00 [place] [employer] - [address] [facility] Medicine Outpati ent Clinics Results This patient has no known results.
--- OUTSIDE RECORDS SUMMARY | 2019-09-16 15:44 | XMS REPORT ---
:1955 Author Organization [employer] Care Team Providers Name Role Phone Gutierrez, Na Provider Role Unavailable Allergies No Known Allergies Problems Problem Type Condition Code Onset Dates Condition Statu s Problem Fibromyalgia M79.7 Active Problem Pressure injury of right upper L89.211 Active thigh, stage 1 Problem Lymphedema I89.0 Active Problem Pressure injury of right buttock, L89.312 Active stage 2 Problem Wheelchair dependence Z99.3 Active Problem Essential hypertension I10 Activ e Problem Chronic suprapubic catheter Z93.59 Active Problem Pressure injury of left thigh, L89.221 Active stage 1 Problem Decreased mobility R26.89 Active Problem Positive depression screening Z13.31 Active Problem Encounter for care or replacement Z43.5 Active of suprapubic tube Problem Urinary incontinence, unspecified R32 Active type Problem Continuous leakage of urine N39.45 Active Problem Simple chronic bronchitis J41.0 Ac tive Problem Hx of laparoscopic gastric banding Z98.84 Active Problem Constipation, unspecified K59.00 Ac tive constipation type Problem Mixed hyperlipidemia E78.2 Active Problem Primary osteoarthritis involving M15.0 Active multiple joints Problem Unsteady gait R26.81 Active Medications No Known Medications Results No Known Results Summary Purpose [employer] Submission
--- OUTSIDE RECORDS SUMMARY | 2019-09-16 15:44 | XMS REPORT ---
[...] Condition Code Onset Dates Condition Statu s Assessment Recurrent UTI N39.0 Active Assessment Cigarette nicotine dependence F17.210 Active without complication Assessment Essential hypertension I10 Activ e Assessment Chronic suprapubic catheter Z93.59 Active Assessment Primary osteoarthritis involving M15.0 Active multiple joints Assessment Urinary incontinence, unspecified R32 Active type Assessment Mixed hyperlipidemia E78.2 Active Assessment Chronic venous hypertension I87.333 Active (idiopathic) with ulcer and inflammation of bilateral lower extremity Assessment Lymphedema I89.0 Active Problem Mixed hyperlipidemia E78.2 Active Assessment Fibromyalgia M79.7 Active Problem Unsteady gait R26.81 Active Assessment 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 with unspecified severity Problem Fibromyalgia M79.7 Active Problem Pressure injury of right upper L89.211 Active thigh, stage 1 Problem Lymphedema I89.0 Active Problem Pressure injury of right buttock, L89.312 Active stage 2 Problem Wheelchair dependence Z99.3 Active Assessment Pressure injury of right buttock, L89.312 Active stage 2 Assessment Simple chronic bronchitis J41.0 Ac tive Problem Essential hypertension I10 Activ e Assessment Wheezing on auscultation R06.2 Act devin Problem Chronic suprapubic catheter Z93.59 Active Problem Pressure injury of left thigh, L89.221 Active stage 1 Problem Decreased mobility R26.89 Active Problem Positive depression screening Z13.31 Active Problem Encounter for care or replacement Z43.5 Active of suprapubic tube Assessment Unsteady gait R26.81 Active Problem Urinary incontinence, unspecified R32 Active type Problem Continuous leakage of urine N39.45 Active Problem Simple chronic bronchitis J41.0 Ac tive Problem Hx of laparoscopic gastric banding Z98.84 Active Problem Constipation, unspecified K59.00 Ac tive constipation type Problem Primary osteoarthritis involving M15.0 Active multiple joints Medications Medication Code Code Instructions Start End Status Dosage System Date Date Doxycycline ND 52830761383 100 MG Orally June Active 1 capsule Monohydrate Once a day 2019 Aspir-81 [facility] 26278398711 81 MG Orally Active 1 tabl et Once a day Docusate Sodium ND 39580941095 100 MG Orally Active 1 capsule as Once a day needed Furosemide ND 98810771282 40 MG Active TAKE 1 TA BLET BY MOUTH TWICE A DAY Furosemide ND 97893249607 40 MG Orally Active 1 ta blet Once a day Sennosides [facility] 51424-89220 25 MG/15ML Active 15 ml at Orally Once a bedtime as day needed Lovastatin ND 29927421663 20 MG Orally Active 1 ta blet with Once a day the evening meal Tramadol HCl ND 05442350357 50 MG Orally June Active 1 tablet as every eight 28, 05, needed hours prn pain 2019 2019 Benadryl Allergy ND 13453048776 25 MG Orally Active 1 tablet as every 8 hrs needed Hydrocodone-Aceta ND 30655638883 7.5-325 MG Active 1 tablet as minophen Orally every 6 needed hrs Klor-Con 10 [facility] 50305911328 10 MEQ Orally Active 1 tablet with Twice a day food Hydrocortisone [facility] 10500431586 2.5 % Rectal Active 1 application Twice a day to affected area Motrin NDC 0 400 mg by Active one mouth Every 6 hours prn fever Spiriva ND 46910271792 18 MCG Active 1 capsule [employer]er Inhalation Once a day Xopenex HFA [facility] 18895725523 45 MCG/ACT Active 1 puf f as Inhalation needed every 4 hrs Oxybutynin ND 69616516604 5 MG Orally Active 1 tab let Chloride BID Motrin PM ND 80393410120 200-38 MG Active 2 tablet s at Orally Once a bedtime as day needed Fluocinonide ND 46864035057 0.05 % Active 1 appli cation Externally to affected Twice a day area Nystatin [facility] 27057356441 323387 UNIT/GM Active 1 ap plication Externally to affected Twice a day area Indomethacin [facility] 71190118868 50 MG Orally Active 1 capsule Twice a day as with food or needed for 3 milk days at at time for acute pain Gabapentin [facility] 09126278408 300 MG Orally Active 1 c apsule two times a day Metoprolol [facility] 99579476470 25 MG Orally June Active 1 ta blet with Tartrate Twice a day 2019 Results No Known Results Summary Purpose [employer]ClinicalWorks Submission
[2019-09-16] MEDS ORDERED: POTASSIUM CL SA 10 MEQ TAB PO ONE (16:10)
--- NOTE | 2019-09-16 16:26 | P.HP ---
Certification for Inpatient Patient admitted to: Inpatient With expected LOS: >2 Midnights Patient will require the following post-hospital care: None Practitioner: I am a practitioner with admitting privileges, knowledge of patient current condition, hospital course, and medical plan of care. Services: Services provided to patient in accordance with Admission requirements found in Title 42 Section 412.3 of the Code of Federal Regulations Patient History Date of Service: 09/16/19 Primary Care Provider: Dr. wills Reason for admission: Lower extremity cellulitis History of Present Illness: 64-year-old female with medical history of CHF, hypertension, hyperlipidemia, fibromyalgia, lymphedema, tobacco abuse presents emergency department after seeing her PCP and general surgeon for increasing redness to the right lower extremity. Patient with severe lymphedema bilateral lower extremities. Patient states that she has home health and they have been helping her dress her wounds, home health nursing staff reports that there has been increasing redness to the right lower extremity over the course of the last few visits. Patient reports that she went to go see her general surgeon he referred her to the emergency department for admission for IV antibiotics. Patient was evaluated in the emergency department and had a rather unremarkable workup. Patient's white blood cell count was within normal limits and pro calcitonin was negative. Blood cultures were obtained in the emergency department patient also reports that she has a suprapubic catheter and her urine appears to be a weird color. Patient was found to have hypokalemia with potassium 2.8. ED provider wishes to admit patient for further evaluation and management. When I saw the patient in the emergency department she was calm, cooperative, oriented x4. Patient is not appear septic at this time. Vital signs within normal limits. Patient will be admitted for further evaluation and management. Allergies amoxicillin [From Augmentin] Allergy (Severe, Verified 10/20/17 02:33) diarrhea, nausea, vomiting ceftriaxone [From Rocephin] Allergy (Severe, Verified 10/20/17 02:33) Itching/Hives/Rash fentanyl Allergy (Severe, Verified 03/28/19 13:54) Itching/Hives/Rash iodine Allergy (Severe, Verified 10/20/17 02:33) Unknown lincomycin [From Lincocin] Allergy (Severe, Verified 03/28/19 13:54) rashes,headaches pneumococcal vaccine [From Pneumovax 23] Allergy (Severe, Verified 10/20/17 02:33) sick more than a week sulfamethoxazole [From Bactrim] Allergy (Severe, Verified 10/20/17 02:33) Anaphylaxis trifluoperazine [From Stelazine] Allergy (Severe, Verified 10/20/17 02:33) itching and rashes vancomycin Allergy (Severe, Verified 10/20/17 02:33) renal failure soap [From Betadine] Allergy (Mild, Verified 03/28/19 13:50) Hives/Rash Sulfa (Sulfonamide Antibiotics) Allergy (Mild, Verified 03/28/19 13:54) Anaphylaxis aloe vera Allergy (Verified 10/20/17 02:33) Itching celery Allergy (Verified 10/20/17 02:33) Nausea/Vomiting Macrolide Antibiotics Allergy (Verified 12/15/17 12:33) Itching/Hives/Rash FLU VACCINE Allergy (Severe, Uncoded 08/18/15 13:32) sick for more than a week aloe vera Allergy (Uncoded 08/18/15 13:32) Unknown hall peppers Allergy (Uncoded 08/18/15 13:32) Nausea/Vomiting celery Allergy (Uncoded 08/18/15 13:32) Unknown FLU VAC Allergy (Uncoded 08/18/15 13:32) Unknown peppers Allergy (Uncoded 08/18/15 13:32) Unknown Home Medications: Aspirin 1 tab PO DAILY 12/15/17 Furosemide [Lasix*] 1 tab PO BID 12/15/17 Gabapentin [Neurontin*] 3 cap PO BEDTIME 12/15/17 Ibuprofen/Diphenhydramine Cit [Motrin Pm Caplet] 200 mg PO BEDTIME PRN 12/15/17 Lovastatin 1 tab PO BEDTIME 12/15/17 Nystatin Cream [Mycostatin 100MU/Gm Cream*] 1 chucky TOP BID PRN 12/15/17 Potassium Chloride [Klor-Con 10] 2 tab PO DAILY 12/15/17 Sennosides/Docusate Sodium [Docusate Sodium-Sennosides Tab] 2 - 3 tab PO BEDTIME PRN 12/15/17 Oxybutynin Chloride [Ditropan*] 5 mg PO BID 07/04/18 Hydrocodone 7.5/APAP 325 [[place] 7.5/325 mg*] 1 tab PO TID PRN 03/26/19 Meropenem [Merrem] 1,000 mg IV BID 14 Days vial 03/30/19 - Past Medical/Surgical History Diabetic: No -: Lymphedema - bilateral leg -: Morbid obesity with Hx of Lap. Band -: Peripheral neuropathy -: Osteoarthritis -: mild COPD -: mild eczema -: Depression -: Sleep apnea -: CHF -: -: Lap band 2008 -: Tonsilectomy and adenoidectomy Psychosocial/ Personal History: , Disabled. One son. - Family History Father -: Heart disease Mother -: Hypertension, Stroke Notes: erin deirdre syndrome - Social History Smoking Status: Current every day smoker Counseled patient to stop smoking for: less than 10 minutes Alcohol use: No CD- Drugs: No Caffeine use: Yes Place of Residence: Home Review of Systems General: Unremarkable Eyes: Unremarkable ENT: Unremarkable Respiratory: Unremarkable Cardiovascular: Unremarkable Gastrointestinal: Unremarkable Genitourinary: Unremarkable Musculoskeletal: As per HPI Integumentary: As per HPI Neurological: Unremarkable Lymphatics: Unremarkable Physical Examination - Physical Exam General: Alert, In no apparent distress, Oriented x3 HEENT: Atraumatic, Normocephalic Neck: Supple Respiratory: Normal air movement, Diminished (Bilaterally) Cardiovascular: Normal pulses, Regular rate/rhythm, Normal S1 S2 Capillary refill: <2 Seconds Gastrointestinal: Normal bowel sounds, Soft and benign, No rebound, No guarding Musculoskeletal: No contractures Integumentary: Tenderness/swelling (To the right lower extremity with some minor skin breakdown present, skin is weeping.), Erythema, Warmth Neurological: Normal speech, Normal strength at 5/5 x4 extr, Normal tone, Sensation intact Lymphatics: Other (Patient with [id number] chronic lymphedema.) - Studies Laboratory Data (last 24 hrs) 09/16/19 14:40: Sodium 142, Potassium 2.8 L*, BUN 6 L, Creatinine 0.78, Glucose 103 09/16/19 14:40: WBC 7.5, Hgb 12.5, Hct 38.1, Plt Count 279 Assessment and Plan - Plan Assessment Cellulitis of the right lower extremity complicated by chronic lymphedema Chronic congestive heart failure COPD Hyperlipidemia Fibromyalgia Plan Cellulitis of the right lower extremity complicated by chronic lymphedema: Infectious disease and general surgery have been consulted. Previous cultures and notes from Infectious Disease were reviewed. Patient was started on meropenem at this time. Will continue with recommendations from general surgery for wound care. DVT prophylaxis with Lovenox 40 mg subcutaneous once daily. Appreciate further input from infectious disease and general surgery. Anticipate clinical improvement next 48-72 hr. Will follow up on urine culture obtained in emergency department. Chronic congestive heart failure: Will continue patient's Lasix 40 mg twice daily. Will continue to monitor patient's volume status closely. COPD: Will provide patient with albuterol inhaler for as needed use. Hyperlipidemia: Have continue patient's oral statin medication. Fibromyalgia: Will continue patient's nightly gabapentin. Discharge Plan: Home Plan to discharge in: Greater than 2 days - Advance Directives Does patient have a Living Will: No Does patient have a Durable POA for Healthcare: No - Code Status/Comfort Care Code Status Assessed: Yes (Patient is full code) Critical Care: No Time Spent Managing Pts Care (In Minutes): 55
[2019-09-16] MEDS: NA CHLORIDE 0.9% 1,000 ML with POTASSIUM CL 40 MEQ IV SCH ×2 (17:00)
--- NOTE | 2019-09-16 21:06 | CON ---
Date of Consultation: 09/16/2019 This patient was seen in the ER. History Of Present Illness: This is the case of a 64-year-old patient known by us in the past due to severe lymphedema and open wounds. So last few months, she has been refusing to come to see any [facility] because she is afraid of coronavirus and we understand that but yesterday, [facility] that shows cellulitis of the lower extremity with drainage and exacerbation of her symptoms and we advised her to come to the ER immediately since this cannot be done through telemedicine. She stated that she may talk to her primary doctor. We encouraged her to do so, but not in a week from now immediately. Her doctor is Dr. Gutierrez. We are trying to approac h that office to just let them know about that too. At the person's stay and that the home health ag ency is going there, they noticed redness getting worse with more drainage on the dorsum of the foot consistent with cellulitis. She had the option of going to her primary doctor, but apparently, she d ecided to come to the ER today. Review of Systems: No fever. No shortness of breath. No chest pain. 10 points otherwise unremarkable. Allergies: INCLUDE AMOXICILLIN, CEFTRIAXONE, FENTANYL, IODINE, LINCOMYCIN. Medical Problems: Include morbid obesity, lymphedema. Family History: Noncontributory. Social History: She does not smoke. She does not drink alcohol. Physical Examination: General: The patient is awake and alert. HEENT: Pupils are equal and reactive, anicteric. Neck: Supple. Chest: Clear. Abdomen: Soft and depressible. Nontender, nondistended. Bowel sounds positive. Extremities: Pitting edema, bilateral lower extremity. Erythematous changes more pronounced in the right foot dorsum with drainage coming from all the toes with open wounds all over the area with supe rimposed infection on her chronic lymphedema treatment. Multiple ulcerations of the toes. No cyanos is. Data: X-ray still pending. Blood work still pending. Assessment And Plan: This is a 64-year-old patient with history of severe lymphedema and morbid obes ity with cellulitis of the bilateral lower extremity with multiple venous stasis ulcers present. The patient will be admitted to the hospital. We are going to consult Infectious Disease. Treatment of this will be at least while she is here, we are going to cover the area with dressings. We are not going to wrap her because we have to do this daily. Leg elevation. We will follow the patient with you and give her more recommendations as the case develops. MARY/MICHELLE Voice ID: [id number] Report ID: [id number]
[2019-09-16] MEDS: FUROSEMIDE 40 MG TABLET PO SCH ×2 (22:49→23:31)
[2019-09-16] MEDS: ATORVASTATIN 10 MG TAB PO SCH ×2 (22:49→23:31)
[2019-09-16] MEDS ORDERED: DOCUSATE NA 100 MG CAP PO PRN (22:49)
[2019-09-16] MEDS ORDERED: ACETAMINOPHEN 500 MG TAB PO PRN (22:49)
[2019-09-16] MEDS ORDERED: ONDANSETRON 4 MG/2 ML VIAL IV PRN (22:49)
[2019-09-16] MEDS ORDERED: Meropenem 1000 MG/VIAL IV SCH (22:49)
[2019-09-16] MEDS ORDERED: ALBUTEROL INHALER 60 PUFF/8 GM IH PRN (22:49)
[2019-09-16] MEDS: GABAPENTIN 300 MG CAP PO SCH (23:27)
[2019-09-16] MEDS: HYDROCODONE/APAP 7.5/325 MG TAB PO PRN (23:29)
[2019-09-16] MEDS: METOPROLOL XL 50 MG TAB PO SCH ×2 (23:30→23:31)
[2019-09-17 00:57] LABS: Urine Appearance TURBID; Urine Bilirubin NEGATIVE (NEG); Urine Blood NEGATIVE (NEG); Urine Color YELLOW; Urine Glucose NEGATIVE (NEG); Urine Protein 1+ (NEG); Urine pH 7.5 (5.0-7.0)
[2019-09-17 01:01] LABS: Urine Microscopic Reflex ORDER UMIC
[2019-09-17 01:17] LABS: Urine Amorphous Sediment 2+ /HPF (NONE SEEN); Urine Bacteria >50 /HPF (<20); Urine Culture Reflex Order NOT NEEDED; Urine Mucus 2+ /HPF (NONE SEEN); Urine Triple Phosphate Crystal MODERATE (NONE SEEN)
[2019-09-17] MEDS: NA CHLORIDE 0.9% 1,000 ML with POTASSIUM CL 40 MEQ IV SCH ×2 (03:31)
[2019-09-17] MEDS: METOPROLOL XL 50 MG TAB PO SCH ×2 (05:52→17:46)
[2019-09-17 05:59] LABS: Absolute Lymphocytes (CBC) 0.7 K/uL (0.7-4.9); Basophils % 0.6 % (0-1.3); Hematocrit 35.1 % (36.0-45.0); Lymphocytes % 9.6 % (15.3-44.8); MPV 8.8 fL (7.6-11.3); RBC Red Blood Cell Count 3.96 M/uL (3.86-4.86)
[2019-09-17 06:17] LABS: Potassium 3.3 mmol/L (3.5-5.1)
[2019-09-17] MEDS ORDERED: MORPHINE 2 MG/ML SYR IV PRN (08:42)
[2019-09-17] MEDS ORDERED: FUROSEMIDE 20 MG/ 2ML VIAL IV ONE (08:42)
--- NOTE | 2019-09-17 08:51 | P.PN ---
Subjective Date of Service: 09/17/19 Primary Care Provider: Dr. wills Chief Complaint: Lower extremity cellulitis Subjective: No new changes, No C/O voiced <Ramesh Cisneros - Last Filed: 09/17/19 08:47> Date of Service: 09/17/19 <Tad Bess - Last Filed: 09/17/19 18:41> Review of Systems General: Unremarkable Eyes: Unremarkable ENT: Unremarkable Respiratory: Cough, Shortness of Breath Cardiovascular: Unremarkable Gastrointestinal: Unremarkable Genitourinary: Unremarkable Musculoskeletal: Unremarkable Integumentary: As per HPI Neurological: Unremarkable Lymphatics: As per HPI <Ramesh Cisneros - Last Filed: 09/17/19 08:47> Physical Examination - Vital Signs Temperature: 97.6 F Blood Pressure: 105/53 Pulse: 61 Respirations: 16 Pulse Ox (%): 91 - Physical Exam General: Alert, In no apparent distress, Oriented x3 HEENT: Atraumatic, Normocephalic Neck: Supple Respiratory: Clear to auscultation bilaterally, Normal air movement Cardiovascular: Normal pulses, Regular rate/rhythm, Normal S1 S2, Edema (Bilateral lower extremity edema, chronic lymphedema) Capillary refill: <2 Seconds Gastrointestinal: Normal bowel sounds, Soft and benign, Other (Obesity) Musculoskeletal: Swelling (To the right lower extremity), Erythema, Tenderness, Warmth Integumentary: Skin breakdown (To the right lower extremity), Tenderness/swelling, Erythema, Warmth Neurological: Normal speech, Normal strength at 5/5 x4 extr, Normal tone, Sensation intact - Studies Laboratory Data (last 24 hrs) 09/16/19 14:40: Sodium 142, Potassium 2.8 L*, BUN 6 L, Creatinine 0.78, Glucose 103 09/16/19 14:40: WBC 7.5, Hgb 12.5, Hct 38.1, Plt Count 279 09/16/19 14:20: Sodium Cancelled, Potassium Cancelled, BUN Cancelled, Creatinine Cancelled, Glucose Cancelled 09/16/19 14:20: WBC Cancelled, Hgb Cancelled, Hct Cancelled, Plt Count Cancelled <Ramesh Cisneros - Last Filed: 09/17/19 08:47> - Studies Laboratory Data (last 24 hrs) 09/16/19 14:20: Sodium Cancelled, Potassium Cancelled, BUN Cancelled, Creatinine Cancelled, Glucose Cancelled 09/16/19 14:20: WBC Cancelled, Hgb Cancelled, Hct Cancelled, Plt Count Cancelled <Tad Bess - Last Filed: 09/17/19 18:41> Assessment & Plan Discharge Plan: Home Plan to discharge in: 24 Hours - Code Status/Comfort Care Code Status Assessed: Yes (Patient is full code) Physician Review Additional Text: Assessment Cellulitis of the right lower extremity complicated by chronic lymphedema Chronic congestive heart failure COPD Hypertension Hyperlipidemia Fibromyalgia Plan Cellulitis of the right lower extremity complicated by chronic lymphedema: Infectious disease and general surgery have been consulted. Previous cultures and notes from Infectious Disease were reviewed. Patient was started on meropenem at this time. Will continue with recommendations from general surgery for wound care. DVT prophylaxis with Lovenox 40 mg subcutaneous once daily. Appreciate further input from infectious disease and general surgery. Anticipate clinical improvement next 48-72 hr. Will follow up on urine culture obtained in emergency department. Patient reports that typically when she has these infections and she has a PICC line placed is able to outpatient antibiotics at home. Will await further recommendations from infectious disease but anticipate patient could likely have PICC line placed and be discharged in the next 24-48 hr. Chronic congestive heart failure: Will continue patient's Lasix 40 mg twice daily. Patient appears slightly overloaded today, will give 1 time dose of 20 mg IV Lasix and re-evaluate. COPD: Patient states that she can use albuterol, have continue patient's home medication Spiriva. Will provide oxygen as needed. Hyperlipidemia: Have continue patient's oral statin medication. Hypertension: Half continue patient's oral hypertensive agents. Fibromyalgia: Will continue patient's nightly gabapentin. Critical Care: No Time Spent Managing Pts Care (In Minutes): 55 <Ramesh Cisneros - Last Filed: 09/17/19 08:47> Physician Review Additional Text: Agree with evaluation, assessment and plan of care. Await Infectious Disease recommendations. <Tad Bess - Last Filed: 09/17/19 18:41>
[2019-09-17] MEDS: TIOTROPIUM 5 SPRAYS/INHALER IH SCH (09:00)
[2019-09-17] MEDS: FUROSEMIDE 40 MG TABLET PO SCH ×2 (09:00→17:00)
[2019-09-17] MEDS ORDERED: POTASSIUM CL SA 10 MEQ TAB PO ONE ×2 (09:00→17:00)
[2019-09-17] MEDS: Meropenem 1,000 MG in NA CHLORIDE 0.9% 100 ML IV SCH ×2 (09:05→22:54)
[2019-09-17] MEDS: ENOXAPARIN 40 MG/0.4 ML SQ SCH (09:08)
--- NOTE | 2019-09-17 10:51 | RAD REPORT ---
EXAM DESCRIPTION: RAD - Chest Single View - 09/17/2019 10:40 am CLINICAL HISTORY: crackles Chest pain. COMPARISON: Chest Single View dated 03/30/2019; Chest Single View dated 03/28/2019; Chest Single View dated 03/26/2019; Chest Single View dated 12/11/2018 FINDINGS: Portable technique limits examination quality. The lungs are mildly emphysematous but clear of acute infiltrate. The heart is mildly enlarged in siz e. No displaced fractures. IMPRESSION: Mild COPD.
[2019-09-17] MEDS: HYDROCODONE/APAP 7.5/325 MG TAB PO PRN ×2 (11:10→23:05)
--- NOTE | 2019-09-17 15:22 | PN ---
Date of Progress Note: 09/17/2019 Reason For Service: Bilateral lower extremity cellulitis, lymphedema. History Of Present Illness: This is the case of a 64-year-old patient with multiple medical problems , chronic congestive heart failure, COPD. She has not been to the doctor for the last few months. S he is afraid of john coronavirus and her condition was getting worse to the point that she has to come to the ER due to cellulitis, congestive heart failure, and lymphedema. [facility] the [facility], we were consulted for the wound care. We have not been able to see her months because she has been reluctant to [facility] because of fears of the john coronavirus. Review of Systems: Once again, patient always has this lymphedema of lower extremity with some amount of exudate. Laboratory Data: Blood work was reviewed. Physical Examination: General: Patient is awake and alert. Abdomen: Soft and depressible. Extremities: Showed severe lymphedema with severe amount of exudate, redness of the bilateral lower extremities and foot. Plan: Infectious Disease for antibiotics. Leg elevation. No fluctuancy or abscess identified at th is moment, but if she develops, then we will proceed accordingly. MARY/MICHELLE Voice ID: [id number] Report ID: [id number]
[2019-09-17] MEDS: MEDIHONEY 44 ML TOPICAL TUBE TOP SCH (16:56)
--- NOTE | 2019-09-17 18:49 | CON ---
History Of Present Illness: This is a 64-year-old female, known to me from previous admission. Karla ent has significant history of lymphedema and multiple ulceration to the lower extremity, hand, foot and cellulitis of right lower extremity, coming in with fluid overload and cellulitis being treated w ith empiric antibiotic. Patient has significant past medical history of lymphedema and multiple medi cation allergies including Amoxil, Levaquin, Lincocin, Iodine, fentanyl, sulfa drugs, vancomycin, mac rolide antibiotic. See H and P for other allergies. Medications: Include meropenem. See MAR for other medications. Review of Systems: A 10-point review was performed. Physical Examination: General: This is a 64-year-old female with multiple medical problems, lying in bed, in moderate pulm onary distress. Vital signs: Temperature 97.7, pulse 68, respiration are 26, blood pressure 110/52. HEENT: Unremarkable. Neck: Supple. Lungs: Basal crackles. Heart: S1, S2. Regular. Abdomen: Soft, nontender. Bowel sounds present. Obese. Extremities: 4+ nonpitting edema with the stasis changes to the lower extremity with the hyperkerato tic lesions and stasis ulcers also noted on the foot with erythematous changes to the right leg and u lceration to the posterior aspect of the lower extremity on both sides. Laboratory Data: Shows WBC 7.2, hemoglobin 11.8, platelets are 231. Chemistry shows sodium 142, pot assium 3.3, chloride 108, bicarb 30, BUN 5, creatinine 0.7, glucose 77. Micro data shows blood cultu res from 09/15 no growth. Urine cultures are pending. Chest x-ray shows patient has the lungs are m ildly emphysematous, but clear of acute infiltrate. Assessment And Plan: A 64-year-old female with multiple allergies and multiple medical problems incl uding severe lymphedema and stasis dermatitis with hyperpigmentation, coming in with right lower extr emity cellulitis and stasis ulceration to the both legs with large ulcer noted on second right toe. Continue meropenem. We will recommend also adding Zyvox 600 mg IV q.12 hours and recommend the patie nt to be transferred to [facility] for at least short term stay. We will follow the patient closely. K eep legs elevated when possible. Recommend also to apply silver alginate to the toe and Xeroform to the lower extremity ulceration. We will follow the patient closely. Thank you for consult. JERAD Voice ID: [id number] Report ID: [id number]
[2019-09-17] MEDS: GABAPENTIN 300 MG CAP PO SCH (21:00)
[2019-09-17] MEDS: LINEZOLID 600 MG TAB PO SCH (21:00)
[2019-09-17] MEDS: ATORVASTATIN 10 MG TAB PO SCH (21:00)
[2019-09-17] MEDS: JUVEN PACKET PO SCH (22:53)
[2019-09-18] MEDS: METOPROLOL XL 50 MG TAB PO SCH ×2 (05:20→18:00)
[2019-09-18] MEDS: TIOTROPIUM 5 SPRAYS/INHALER IH SCH (05:24)
[2019-09-18 06:58] LABS: Absolute Lymphocytes (CBC) 0.8 K/uL (0.7-4.9); Basophils % 0.7 % (0-1.3); MPV 9.4 fL (7.6-11.3); RBC Red Blood Cell Count 3.95 M/uL (3.86-4.86)
[2019-09-18 07:02] LABS: Potassium 3.4 mmol/L (3.5-5.1)
[2019-09-18] MEDS: FUROSEMIDE 40 MG TABLET PO SCH ×2 (09:00→17:00)
[2019-09-18] MEDS ORDERED: POTASSIUM 25 MEQ EFFERV TAB PO ONE (09:00)
[2019-09-18] MEDS: JUVEN PACKET PO SCH ×2 (09:28→21:00)
[2019-09-18] MEDS: Meropenem 1,000 MG in NA CHLORIDE 0.9% 100 ML IV SCH ×2 (09:29→21:31)
[2019-09-18] MEDS: ENOXAPARIN 40 MG/0.4 ML SQ SCH (09:30)
[2019-09-18] MEDS: MEDIHONEY 44 ML TOPICAL TUBE TOP SCH (09:31)
[2019-09-18] MEDS: LINEZOLID 600 MG TAB PO SCH ×2 (09:31→21:00)
--- NOTE | 2019-09-18 10:43 | P.PN ---
Subjective Date of Service: 09/18/19 Primary Care Provider: Dr. wills Chief Complaint: Lower extremity cellulitis Subjective: No new changes, No C/O voiced Review of Systems General: Unremarkable Eyes: Unremarkable ENT: Unremarkable Respiratory: Unremarkable Cardiovascular: Unremarkable Gastrointestinal: Unremarkable Genitourinary: Unremarkable Musculoskeletal: Leg Pain, Foot Pain, As per HPI Integumentary: As per HPI Neurological: Unremarkable Lymphatics: Unremarkable Physical Examination - Vital Signs Temperature: 97.1 F Blood Pressure: 121/76 Pulse: 63 Respirations: 16 Pulse Ox (%): 97 - Physical Exam General: Alert, In no apparent distress, Oriented x3 HEENT: Atraumatic, Normocephalic Neck: Supple, 2+ carotid pulse no bruit Respiratory: Clear to auscultation bilaterally, Crackles/rales, Expiratory wheezes Cardiovascular: Regular rate/rhythm, Normal S1 S2 Capillary refill: <2 Seconds Gastrointestinal: Normal bowel sounds, Soft and benign Musculoskeletal: Swelling (To a right lower extremity with severe lymphedema present), Erythema, Tenderness, Warmth Integumentary: Skin breakdown, Skin lesion, Tenderness/swelling, Erythema, Warmth, Venous stasis ulcer (To a right lower extremity with severe lymphedema present) Neurological: Normal speech, Normal strength at 5/5 x4 extr, Normal tone, Sensation intact Assessment & Plan Discharge Plan: LTAC Plan to discharge in: 72 Hours - Code Status/Comfort Care Code Status Assessed: Yes (Patient is full code) Physician Review Additional Text: Assessment Cellulitis of the right lower extremity complicated by chronic lymphedema Patient with urinary tract infection complicated with suprapubic catheter use Chronic diastolic congestive heart failure COPD Hypertension Hyperlipidemia Fibromyalgia Plan Cellulitis of the right lower extremity complicated by chronic lymphedema: Patient with 4+ edema to the lower extremities and stasis ulcers to the foot with erythematous changes to the right leg and ulceration to the posterior aspect of the lower extremities bilaterally. Patient currently on IV meropenem 1000 mg q 12, was evaluated by infectious disease doctor yesterday who recommended that she go to long-term acute care facility for further antibiotics and aggressive wound care. Also recommended addition of his Avelox 600 mg IV q.12 hr. Will continue with these recommendations at this time. Will work on patient having PICC line placed. Patient prefers that she go home with IV antibiotics but this will have to be arranged at the earliest on Friday. Will discuss with her further. Patient urine tract infection complicated with suprapubic catheter use: Urine culture has been obtained, preliminary culture show 4+ gram-negative rods. Patient currently on meropenem, will continue this therapy at this time. Will follow final culture and sensitivity. Chronic diastolic congestive heart failure: Will continue patient's Lasix 40 mg twice daily. Patient is doing better today, less short of breath. Will continue to monitor closely. COPD: Patient states that she can use albuterol, have continue patient's home medication Spiriva. Will provide oxygen as needed. Hyperlipidemia: Have continue patient's oral statin medication. Hypertension: Half continue patient's oral hypertensive agents. Fibromyalgia: Will continue patient's nightly gabapentin Critical Care: No Time Spent Managing Pts Care (In Minutes): 55
[2019-09-18] MEDS ORDERED: POTASSIUM CL SA 10 MEQ TAB PO ONE (19:22)
[2019-09-18] MEDS: DIPHENHYDRAMINE 25 MG TAB/CAP PO SCH (21:00)
[2019-09-18] MEDS: GABAPENTIN 300 MG CAP PO SCH (21:00)
[2019-09-18] MEDS ORDERED: ATORVASTATIN 10 MG TAB PO SCH (21:00)
[2019-09-18] MEDS: OXYBUTYNIN CHLORIDE 5 MG TAB PO SCH (21:00)
[2019-09-19] MEDS: HYDROCODONE/APAP 7.5/325 MG TAB PO PRN (05:50)
[2019-09-19] MEDS: METOPROLOL XL 50 MG TAB PO SCH ×2 (05:54→16:37)
[2019-09-19 06:24] LABS: Absolute Lymphocytes (CBC) 0.7 K/uL (0.7-4.9); Basophils % 0.5 % (0-1.3); Lymphocytes % 9.6 % (15.3-44.8); MPV 9.6 fL (7.6-11.3); RBC Red Blood Cell Count 3.69 M/uL (3.86-4.86)
[2019-09-19 06:41] LABS: Potassium 3.6 mmol/L (3.5-5.1)
[2019-09-19] MEDS ORDERED: POTASSIUM CL SA 10 MEQ TAB PO ONE ×2 (07:29→09:00)
[2019-09-19] MEDS: FUROSEMIDE 40 MG TABLET PO SCH ×2 (09:00→16:37)
[2019-09-19] MEDS: OXYBUTYNIN CHLORIDE 5 MG TAB PO SCH ×2 (09:00→21:00)
[2019-09-19] MEDS: JUVEN PACKET PO SCH ×2 (09:00→21:00)
[2019-09-19] MEDS ORDERED: POTASSIUM 25 MEQ EFFERV TAB PO ONE (09:00)
[2019-09-19] MEDS: ENOXAPARIN 40 MG/0.4 ML SQ SCH (09:09)
[2019-09-19] MEDS: LINEZOLID 600 MG TAB PO SCH ×2 (09:09→21:00)
[2019-09-19] MEDS: Meropenem 1,000 MG in NA CHLORIDE 0.9% 100 ML IV SCH ×2 (09:09→22:21)
[2019-09-19] MEDS: MEDIHONEY 44 ML TOPICAL TUBE TOP SCH (09:10)
[2019-09-19] MEDS: TIOTROPIUM 5 SPRAYS/INHALER IH SCH (09:10)
--- NOTE | 2019-09-19 10:59 | P.PN ---
Subjective Date of Service: 09/19/19 Primary Care Provider: Dr. wills Chief Complaint: Lower extremity cellulitis Subjective: No C/O voiced, Tolerating diet, Improving Review of Systems 10-point ROS is otherwise unremarkable Physical Examination - Vital Signs Temperature: 97.7 F Blood Pressure: 107/55 Pulse: 53 Respirations: 18 Pulse Ox (%): 94 - Physical Exam General: Alert, In no apparent distress HEENT: Atraumatic, PERRLA, EOMI Neck: Supple, JVD not distended Respiratory: Clear to auscultation bilaterally, Normal air movement Cardiovascular: Regular rate/rhythm, Normal S1 S2 Gastrointestinal: Normal bowel sounds, No tenderness Musculoskeletal: No tenderness Integumentary: Tenderness/swelling, Erythema, Warmth, Venous stasis ulcer Neurological: Normal speech, Normal tone, Normal affect Lymphatics: No axilla or inguinal lymphadenopathy Urinary: Suprapubic catheter Assessment & Plan Discharge Plan: Home Plan to discharge in: 24 Hours - Code Status/Comfort Care Code Status Assessed: Yes (Patient is full code) Physician Review Additional Text: Assessment Cellulitis of the right lower extremity complicated by chronic lymphedema Patient with urinary tract infection complicated with suprapubic catheter use Chronic diastolic congestive heart failure COPD Hypertension Hyperlipidemia Fibromyalgia Plan Cellulitis of the right lower extremity complicated by chronic lymphedema: Pa tient with 4+ edema to the lower extremities and stasis ulcers to the foot with erythematous changes to the right leg and ulceration to the posterior aspect of the lower extremities bilaterally. Patient currently on IV meropenem 1000 mg q 12, was evaluated by infectious disease doctor yesterday who recommended that she go to long-term acute care facility for further antibiotics and aggressive wound care. Also recommended addition of his Avelox 600 mg IV q.12 hr. Will continue with these recommendations at this time. Will work on patient having PICC line placed. Order for PICC line placed, will have social work consultation tomorrow to arrange for outpatient IV antibiotic therapy. Patient urine tract infection complicated with suprapubic catheter use: Urine culture has been obtained, preliminary culture show 4+ gram-negative rods. Patient currently on meropenem, will continue this therapy at this time. Will follow final culture and sensitivity. Chronic diastolic congestive heart failure: Will continue patient's Lasix 40 mg twice daily. Patient is doing better today, less short of breath. Will continue to monitor closely. COPD: Patient states that she can use albuterol, have continue patient's home medication Spiriva. Will provide oxygen as needed. Hyperlipidemia: Have continue patient's oral statin medication. Hypertension: Half continue patient's oral hypertensive agents. Fibromyalgia: Will continue patient's nightly gabapentin Critical Care: No Time Spent Managing Pts Care (In Minutes): 55
[2019-09-19] MEDS: HOME MED 1 EA UNK PO SCH (21:00)
[2019-09-19] MEDS: DIPHENHYDRAMINE 25 MG TAB/CAP PO SCH (21:00)
[2019-09-19] MEDS: GABAPENTIN 300 MG CAP PO SCH (21:00)
[2019-09-20] MEDS: HYDROCODONE/APAP 7.5/325 MG TAB PO PRN ×2 (04:24→10:54)
[2019-09-20] MEDS: METOPROLOL XL 50 MG TAB PO SCH ×2 (06:00→16:39)
[2019-09-20 06:01] VITALS: BMI 61.8
[2019-09-20 06:24] LABS: Potassium 3.8 mmol/L (3.5-5.1)
[2019-09-20] MEDS: Meropenem 1,000 MG in NA CHLORIDE 0.9% 100 ML IV SCH ×2 (08:00→20:54)
[2019-09-20] MEDS: OXYBUTYNIN CHLORIDE 5 MG TAB PO SCH ×2 (08:57→21:00)
[2019-09-20] MEDS: FUROSEMIDE 40 MG TABLET PO SCH ×2 (08:58→16:38)
[2019-09-20] MEDS: JUVEN PACKET PO SCH ×2 (08:58→21:00)
[2019-09-20] MEDS: ENOXAPARIN 40 MG/0.4 ML SQ SCH (08:59)
[2019-09-20] MEDS: GABAPENTIN 300 MG CAP PO SCH ×2 (08:59→21:00)
[2019-09-20] MEDS ORDERED: POTASSIUM CL SA 10 MEQ TAB PO ONE (09:00)
[2019-09-20] MEDS: MEDIHONEY 44 ML TOPICAL TUBE TOP SCH (09:00)
[2019-09-20] MEDS: LINEZOLID 600 MG TAB PO SCH ×2 (09:01→21:00)
[2019-09-20] MEDS: TIOTROPIUM 5 SPRAYS/INHALER IH SCH (09:01)
--- NOTE | 2019-09-20 10:00 | RAD REPORT ---
EXAM DESCRIPTION: RAD - Chest Single View - 09/20/2019 3:53 am CLINICAL HISTORY: S/P PICC insertion COMPARISON: 03/30/2019 TECHNIQUE: AP Chest. FINDINGS: Heart is enlarged. There is pulmonary vascular congestion. There is no consolidation. No p leural fluid. No pneumothorax. Right subclavian PICC line is in the upper right atrial region. Unremarkable soft tissues. Bones appe ar intact. IMPRESSION: 1. Cardiomegaly with mild pulmonary vascular congestion. 2. Right subclavian PICC line placed without complication. Electronically signed by: Jovita Plasencia DO 09/20/2019 4:03 AM CDT Due to temporary technical issues with the PACS/Fluency reporting system, reports are being signed by the in house radiologist without review as a courtesy to ensure prompt reporting. The interpreting r adiologist is fully responsible for the content of the report.
--- NOTE | 2019-09-20 12:08 | P.PN ---
Subjective Date of Service: 09/20/19 Primary Care Provider: Dr. wills Chief Complaint: Lower extremity cellulitis Subjective: Improving Review of Systems Unremarkable Physical Examination - Vital Signs Temperature: 97.2 F Blood Pressure: 107/58 Pulse: 64 Respirations: 19 Pulse Ox (%): 94 - Physical Exam Cardiovascular: Regular rate/rhythm, Normal S1 S2, Edema Capillary refill: <2 Seconds Gastrointestinal: Normal bowel sounds, Soft and benign Integumentary: Tenderness/swelling, Erythema, Warmth, Venous stasis ulcer Neurological: Normal speech, Normal tone Urinary: Suprapubic catheter Assessment & Plan Discharge Plan: Home Plan to discharge in: 24 Hours - Code Status/Comfort Care Code Status Assessed: Yes (Patient is full code) Physician Review Additional Text: Assessment Cellulitis of the right lower extremity complicated by chronic lymphedema Patient with urinary tract infection complicated with suprapubic catheter use Chronic diastolic congestive heart failure COPD Hypertension Hyperlipidemia Fibromyalgia Plan Cellulitis of the right lower extremity complicated by chronic lymphedema: Patient with 4+ edema to the lower extremities and stasis ulcers to the foot with erythematous changes to the right leg and ulceration to the posterior aspect of the lower extremities bilaterally. Patient currently on IV meropenem 1000 mg q 12. Patient with PICC line in place, will await recommendations from infectious disease doctor in regards to type of antibiotics, dose, duration so that patient can be arranged to have these antibiotics at home. Once home antibiotics is have patient to be discharged. Patient urine tract infection complicated with suprapubic catheter use: Urine culture has been obtained, preliminary culture show 4+ gram-negative rods. Patient currently on meropenem, will continue this therapy at this time. Will follow final culture and sensitivity. Appreciate further input from infectious disease. Chronic diastolic congestive heart failure: Will continue patient's Lasix 40 mg twice daily. Patient is doing better today, less short of breath. Will continue to monitor closely. COPD: Patient states that she can use albuterol, have continue patient's home medication Spiriva. Will provide oxygen as needed. Hyperlipidemia: Have continue patient's oral statin medication. Hypertension: Half continue patient's oral hypertensive agents. Fibromyalgia: Will continue patient's nightly gabapentin. Critical Care: No Time Spent Managing Pts Care (In Minutes): 55
--- NOTE | 2019-09-20 14:06 | P.PN ---
Date of Service: 09/20/19 Subjective: Patient is a 64-year-old female who presents to the ED after seeing her PCP and general surgeon for increased redness to the right lower extremity. Patient with history of severe lymphedema of the bilateral lower extremities. Patient has [facility] home health to help with dressing changes. Patient found to have right lower extremity cellulitis which I have been consulted for. Patient examined at bedside. Objective: Temp Pulse Resp BP Pulse Ox 97.2 F 64 19 107/58 L 94 09/20/19 12:08 09/20/19 12:08 09/20/19 12:08 09/20/19 12:08 09/20/19 12:08 Labs: Sodium 141, potassium 3.8, BUN 9, creatinine 0.89, K V.A.C. 7.7, hemoglobin 11.1, hematocrit 33.0 ROS: General: Awake, alert oriented CV: S1,S2 RESP: Good breath sounds ABD: Bowel sounds present : Chronic Suprapubic catheter with dark cloudy urine Extremities: Lymphedema to BLLE, stasis changes to BLLE Skin: Erythema to BLLE with hyperkeratotic lesions, Right foot second toe with stasis ulcer Assessment and plan: Cellulitis to right lower extremity Lymphedema to BLLE, recommend to apply xeroform dressing Right second toe stasis ulcer, recommend silver alginate UTI secondary to Proteus Blood culture negative Educated the patient to keep legs elevated Currently on Zyvox and Merrem Upon discharge, recommend PO Zyvox and IV Merrem for totoal of 2 weeks Patient with [facility] home health Will continue to monitor Patient discussed with Dr. Hansen
[2019-09-20] MEDS: DIPHENHYDRAMINE 25 MG TAB/CAP PO SCH (20:59)
[2019-09-20] MEDS: HOME MED 1 EA UNK PO SCH (21:00)
[2019-09-21] MEDS: HYDROCODONE/APAP 7.5/325 MG TAB PO PRN ×2 (00:14→08:57)
[2019-09-21] MEDS: METOPROLOL XL 50 MG TAB PO SCH ×2 (05:25→18:00)
[2019-09-21 05:57] LABS: Potassium 3.8 mmol/L (3.5-5.1)
[2019-09-21] MEDS: Meropenem 1,000 MG in NA CHLORIDE 0.9% 100 ML IV SCH (08:56)
[2019-09-21] MEDS: ENOXAPARIN 40 MG/0.4 ML SQ SCH (08:56)
[2019-09-21] MEDS: JUVEN PACKET PO SCH (08:58)
[2019-09-21] MEDS: FUROSEMIDE 40 MG TABLET PO SCH ×2 (08:58→17:00)
[2019-09-21] MEDS: OXYBUTYNIN CHLORIDE 5 MG TAB PO SCH (08:58)
[2019-09-21] MEDS: MEDIHONEY 44 ML TOPICAL TUBE TOP SCH (08:59)
[2019-09-21] MEDS: GABAPENTIN 300 MG CAP PO SCH (08:59)
[2019-09-21] MEDS ORDERED: POTASSIUM CL SA 10 MEQ TAB PO ONE (09:00)
[2019-09-21] MEDS: TIOTROPIUM 5 SPRAYS/INHALER IH SCH (09:00)
[2019-09-21] MEDS: LINEZOLID 600 MG TAB PO SCH (09:01)
--- NOTE | 2019-09-21 10:05 | P.PN ---
Date of Service: 09/21/19 Subjective: Patient is a 64-year-old female who presents to the ED after seeing her PCP and general surgeon for increased redness to the right lower extremity. Patient with history of severe lymphedema of the bilateral lower extremities. Patient has [facility] home health to help with dressing changes. Patient found to have right lower extremity cellulitis which I have been consulted for. Patient examined at bedside. Objective: Temp Pulse Resp BP Pulse Ox 97.9 F 63 18 117/58 L 93 09/21/19 04:00 09/21/19 08:58 09/21/19 08:57 09/21/19 08:58 09/21/19 08:57 Labs: Sodium 141, potassium 3.8, BUN 10, creatinine 0.79, A1C. 7.7, hemoglobin 11.1, hematocrit 33.0 Chest xray 09/19: EXAM DESCRIPTION: RAD - Chest Single View - 09/20/2019 3:53 am CLINICAL HISTORY: S/P PICC insertion COMPARISON: 03/30/2019 TECHNIQUE: AP Chest. FINDINGS: Heart is enlarged. There is pulmonary vascular congestion. There is no consolidation. No pleural fluid. No pneumothorax. Right subclavian PICC line is in the upper right atrial region. Unremarkable soft tissues. Bones appear intact. IMPRESSION: 1. Cardiomegaly with mild pulmonary vascular congestion. 2. Right subclavian PICC line placed without complication. ROS: General: Awake, alert oriented CV: S1,S2 RESP: Good breath sounds ABD: Bowel sounds present : Chronic Suprapubic catheter with dark cloudy urine Extremities: Lymphedema to BLLE, stasis changes to BLLE Skin: Erythema to BLLE with hyperkeratotic lesions, Right foot second toe with stasis ulcer Assessment and plan: Cellulitis to right lower extremity Lymphedema to BLLE, recommend to apply xeroform dressing Right second toe stasis ulcer, recommend silver alginate UTI secondary to Proteus Blood culture negative Educated the patient to keep legs elevated Currently on Zyvox and Merrem Recommend to discontinue Merrem and start on Levaquin 500mg IV daily for Proteus in the urine Upon discharge, recommend PO Zyvox and IV Levaquin for total of 2 weeks Patient with [facility] home health Will continue to monitor Patient discussed with Dr. Hansen
[2019-09-21] MEDS ORDERED: Levofloxacin500mg IV 500 MG/100 ML BAG IV SCH (11:00)
[2019-09-21 13:18] VITALS: O2SAT 92
--- NOTE | 2019-09-21 15:28 | P.DS ---
Admission Date: 09/16/19 Discharge Date: 09/21/19 Primary Care Provider: Dr. Gutierrez Disposition: DC HOME/HOME HEALTH CARE Discharge Condition: GOOD Reason for Admission: Lower extremity cellulitis Consultations: Infectious disease-Dr. Hansen Procedures: PICC line placement Medical problem list: Cellulitis of the right lower extremity complicated by chronic lymphedema Urinary tract infection with suprapubic catheter use, urine culture positive for Proteus Chronic diastolic congestive heart failure COPD Hypertension Hyperlipidemia Fibromyalgia Brief History of Present Illness: 64-year-old female presented to emergency room with cellulitis to the right lower extremities. Patient admitted for further evaluation and treatment. Hospital Course: Patient presented with cellulitis to the right lobe lower extremity complicated with chronic lymphedema. Patient was admitted for further evaluation and treatment. Patient received IV antibiotic therapy. Patient was also found to have UTI with suprapubic catheter. Cultures showed Proteus. Patient seen and evaluated by infectious disease. Blood cultures negative. Infectious disease recommended IV antibiotic therapy-Levaquin 500 mg daily for 2 weeks along with Zyvox 600 mg 1 pill twice daily. PICC line was placed. Arrangements for home antibiotics have been arranged. Patient will be discharged home to continue antibiotic therapy. Patient will continue with wound care with [facility] as directed by infectious disease. Patient [facility] to further monitor and address. Once infection has resolved PICC line can be removed. This can be further addressed by wound care at the wound Care Center. Patient with history of chronic diastolic CHF, hyperlipidemia, hypertension and fibromyalgia. At discharge patient will continue with her current medications of tramadol 50 mg every 6 hr as needed for pain, metoprolol XL 25 mg twice daily, Lasix 40 mg 1 pill twice daily with potassium supplementation, and Neurontin 100 mg 1 pill twice daily. Recommend a follow up with her PCP to fur ther monitor and address. Patient will continue with a 1500 cc per day fluid restriction and low-salt diet. Recommend to monitor her weight daily. If her weight increases by more than 5 lb she is to contact her PCP for further recommendation. Vital Signs/Physical Exam: Temp Pulse Resp BP Pulse Ox 98.5 F 64 19 113/57 L 91 09/21/19 12:00 09/21/19 12:00 09/21/19 12:00 09/21/19 12:00 09/21/19 12:00 General: Alert, In no apparent distress, Oriented x3, Cooperative HEENT: Atraumatic Neck: Supple Respiratory: Clear to auscultation bilaterally, Normal air movement Cardiovascular: Normal pulses, Regular rate/rhythm Gastrointestinal: Normal bowel sounds, Soft and benign, Non-distended Integumentary: Other (Bandages to the lower extremity noted) Neurological: Normal speech, Normal strength at 5/5 x4 extr, Normal tone, Normal affect Laboratory Data at Discharge: WBC 7.7 K/uL (4.3-10.9) 09/19/19 05:16 Hgb 11.1 g/dL (12.0-15.0) L 09/19/19 05:16 Hct 33.0 % (36.0-45.0) L 09/19/19 05:16 Plt Count 225 K/uL (152-406) 09/19/19 05:16 Sodium 141 mmol/L (136-145) 09/21/19 05:24 Potassium 3.8 mmol/L (3.5-5.1) 09/21/19 05:24 BUN 10 mg/dL (7-18) 09/21/19 05:24 Creatinine 0.79 mg/dL (0.55-1.3) 09/21/19 05:24 Glucose 91 mg/dL (74-106) 09/21/19 05:24 Magnesium 2.0 mg/dL (1.8-2.4) 09/19/19 05:16 Home Medications: Furosemide [Lasix*] 1 tab PO BID 12/15/17 Gabapentin [Neurontin*] 100 mg PO BID 12/15/17 Lovastatin 1 tab PO BEDTIME 12/15/17 Potassium Chloride [Klor-Con 10] 2 tab PO DAILY 12/15/17 Oxybutynin Chloride [Ditropan*] 5 mg PO BID 07/04/18 Diphenhydramine [Benadryl*] 1 tab PO BEDTIME 09/16/19 Indomethacin 1 cap PO DAILY PRN 09/16/19 Metoprolol Tartrate [Lopressor*] 1 tab PO BID 09/16/19 Sennosides/Docusate Sodium [Stool Softener-Stim Lax Tablet] 1 tab PO BEDTIME 09/16/19 Gabapentin [Neurontin*] 100 mg PO DAILY PRN 09/19/19 Docusate [Colace Cap*] 100 mg PO DAILY PRN #30 cap 09/21/19 Linezolid [Zyvox*] 600 mg PO BID #28 tab 09/21/19 Medihoney [Medihoney Woundcare Gel*] 1 appl TOP DAILY #1 tube 09/21/19 traMADol HCL [Ultram*] 50 mg PO Q6H PRN #30 tab 09/21/19 New Medications: Docusate [Colace Cap*] 100 mg PO DAILY PRN #30 cap PRN Reason: Constipation Medihoney [Medihoney Woundcare Gel*] 1 appl TOP DAILY #1 tube traMADol HCL [Ultram*] 50 mg PO Q6H PRN #30 tab PRN Reason: Pain Linezolid [Zyvox*] 600 mg PO BID #28 tab Patient Discharge Instructions: 1. Patient will need to follow up with her PCP in 1 week to follow this hospitalization. 2. Patient presented with cellulitis to the right lobe lower extremity complicated with chronic lymphedema. Patient was admitted for further evaluation and treatment. Patient received IV antibiotic therapy. Patient was also found to have UTI with suprapubic cathet er. Cultures showed Proteus. Patient seen and evaluated by infectious disease. Blood cultures negative. Infectious disease recommended IV antibiotic therapy- Levaquin 500 mg daily for 2 weeks along with Zyvox 600 mg 1 pill twice daily. PICC line was placed. Arrangements for home antibiotics have been arranged. Patient will be discharged home to continue antibiotic therapy. Patient will continue with wound care with [facility] as directed by infectious disease. Patient will follow up at the [facility] to further monitor and address.Once infection has resolved PICC line can be removed. This can be further addressed by wound care at the wound Care Center. 3. Patient with history of chronic diastolic CHF, hyperlipidemia, hypertension and fibromyalgia. At discharge patient will continue with her current medications of tramadol 50 mg every 6 hr as needed for pain, metoprolol XL 25 mg twice daily, Lasix 40 mg 1 pill twice daily with potassium supplementation, and Neurontin 100 mg 1 pill twice daily. Recommend a follow up with her PCP to further monitor and address. Patient will continue with a 1500 cc per day fluid restriction and low-salt diet. Recommend to monitor her weight daily. If her weight increases by more than 5 lb she is to contact her PCP for further recommendation. Diet: AHA Activity: Ad yobani Time spent managing pt's care (in minutes): 55
[2019-09-21 17:27] VITALS: BP 118/58; TEMP 98.8
== END 2019-09-21 18:33 | disposition home health service (06) | DRG 603 ==
LOC: ER 13:42 → ERHOLD 16:06 → 2ND 22:39
PROVIDERS: ADMIT Family Medicine; ATTEND Family Medicine
PROC: 02HV33Z Insertion of Infusion Device into Superior Vena Cava, Percutaneous Approach (ICD-10-PCS; principal; 2019-09-20)
DX: L03.115 Cellulitis of right lower limb (principal); Z68.44 Body mass index [BMI] 60.0-69.9, adult; N39.0 Urinary tract infection, site not specified; I50.32 Chronic diastolic (congestive) heart failure; I11.0 Hypertensive heart disease with heart failure; E78.5 Hyperlipidemia, unspecified; M79.7 Fibromyalgia; I89.0 Lymphedema, not elsewhere classified; E87.6 Hypokalemia; E66.01 Morbid (severe) obesity due to excess calories; G62.9 Polyneuropathy, unspecified; M19.90 Unspecified osteoarthritis, unspecified site; J44.9 Chronic obstructive pulmonary disease, unspecified; L30.9 Dermatitis, unspecified; F32.9 Major depressive disorder, single episode, unspecified; G47.30 Sleep apnea, unspecified; F17.200 Nicotine dependence, unspecified, uncomplicated; I87.2 Venous insufficiency (chronic) (peripheral); L81.9 Disorder of pigmentation, unspecified; L97.519 Non-pressure chronic ulcer of other part of right foot with unspecified severity; B96.4 Proteus (mirabilis) (morganii) as the cause of diseases classified elsewhere; Z11.59 Encounter for screening for other viral diseases
CPT/HCPCS: 36415; 36569; 71045; 80048; 81003; 81015; 83605; 83735; 84132; 84145; 85025; 87040; 87077; 87086; 87088; 87186; 96361; 96365; 99285; J1650; J1940; J2185; J2270; J3480; J7030; U0002

== ENCOUNTER 2020-09-05 18:54 | Inpatient (IN) | payer OTHER ==
--- OUTSIDE RECORDS SUMMARY | 2020-09-05 18:57 | XMS REPORT | Continuity of Care Document ---
:1955 Author Organization [facility] t Address [address] [place] [address] Care Team Providers Name Role Phone Unavailable Unavailable Unavailable Problems This patient has no known problems. Allergies, Adverse Reactions, Alerts Allergy Allergy Status Severity Reaction(s) Onset Inactive Treating Comm ents Source Name Type Date Date Clinician sulfa Adverse Active Info Not [facility] Reaction Available [facility] Rocephin Adverse Active Info [facility] Reaction Available [facility] Macrobid Adverse Active Info [facility] Available [facility] Lincocin Adverse Active Info [facility] Reaction Available [facility] Fentanyl Adverse Active Info Not [facility] Reaction Available [facility] Betadine Adverse Active Info [facility] Reaction Available [facility] Augmenti Adverse Active Info Not [facility] Reaction Available [facility] Aloe Adverse Active Info Not [facility] Vera Reaction Available [facility] Vancomyc Adverse Active Info Not [facility] in HCl Reaction Available [facility] Medications Ordered Filled Start Stop Current Ordering Indication Dosage Frequency Signature Comments Components Source Medication Medication Date Date Medication? Clinician (SIG) Name Name Metoprolol Metoprolol Yes Na Gutierrez [address] [facility] Tartrate Tartrate - with food Sanna kes - 00:00: [facility] 00 [facility] Doxycycline Doxycycline 2017-03 Yes Na Gutierrez [address] [facility] Hyclate Hyclate 1-21 [facility] Metoprolol Metoprolol Yes Na Gutierrez 1/[address] [facility] Tartrate Tartrate with food Sanna kes - [facility] Procedures This patient has no known procedures. Encounters Start End Encounter Admission Attending Care Care Encounter Source Date/Time Date/Time Type Type Clinicians Facility Department ID 2020-08-15 2020-08-15 Outpatient [facility] [id number] [facility] 2020-07-21 2020-07-21 [facility] [id number] [facility] 2020-07-03 2020-07-03 [facility] [id number] [facility] 2020-06-30 2020-06-30 [facility] [id number] [facility] 2020-06-30 2020-06-30 [facility] [id number] [facility] 2020-06-27 2020-06-27 Out[facility] [id number] [facility] 2020-06-07 2020-06-07 [facility] [id number] [facility] 2020-05-29 2020-05-29 Outpatient [facility] [id number] [facility] 2020-05-23 2020-05-23 Outpatient [facility] [id number] [facility] 2020-05-11 2020-05-11 [facility] [id number] [facility] 2020-05-07 2020-05-07 Out[facility] [id number] [facility] 2020-05-04 2020-05-04 Out[facility] [id number] [facility] 2020-04-19 2020-04-19 Outpatient [facility] [id number] [facility] 2020-04-04 2020-04-04 Out[facility] [id number] [facility] 2020-02-04 2020-02-04 Out[facility] [id number] [facility] 2020-02-01 2020-02-01 Outpatient [facility] [id number] [facility] 2020-01-05 2020-01-05 Outpatient [facility] [id number] [facility] 2019-12-20 2019-12-20 Outpatient [facility] [id number] [facility] 2019-12-19 2019-12-19 Outpatient [facility] [id number] [facility] 2019-12-17 2019-12-17 Outpatient [facility] [id number] [facility] 2019-11-03 2019-11-03 [facility] [id number] [facility] 10:19:00 10:19:00 t Durbin [employer] [place] s - Drive [facility] Out[facility] Clinics 2019-10-06 2019-10-06 [facility] [id number] [facility] 16:47:00 16:47:00 t D[place] [employer] s - Drive [facility] l Medicine Outpati ent Clinics 2019-09-30 2019-09-30 [facility] [id number] [facility] 14:56:00 14:56:00 t [place] [employer] s - Drive [facility] Medicine l Medicine Outpati ent Clinics 2019-09-14 2019-09-14 [facility] [id number] [facility] 13:55:00 13:55:00 t [place] [employer] [place] - Drive [facility] Medicine l Medicine Outpati ent Clinics 2019-08-12 2019-08-12 [facility] [id number] [facility] 11:39:00 11:39:00 t D[employer]in [employer] - [employer] [facility] Medicine l Medicine Outpati ent Clinics 2019-07-09 2019-07-09 [facility] [id number] [facility] 11:26:00 11:26:00 t D[employer]in [employer] - [employer] [facility] Medicine l Medicine Outpati ent Clinics 2019-07-06 2019-07-06 [facility] [id number] [facility] 14:00:00 14:00:00 t Durbin [employer] [place] [facility] Medicine l Medicine Outpati ent Clinics 2019-06-11 2019-06-11 [facility] [id number] [facility] 10:29:00 10:29:00 t D[employer]in [employer] - [employer] [facility] Medicine l Medicine Outpati ent Clinics 2019-06-08 2019-06-08 [facility] [id number] [facility] 10:57:00 10:57:00 t D[employer]in [employer] - [employer] [facility] Medicine l Medicine Outpati ent Clinics 2019-05-24 2019-05-24 [facility] [id number] [facility] 14:44:00 14:44:00 t Durbin [employer] [place] [facility] Medicine l Medicine Outpati ent Clinics 2019-04-12 2019-04-12 [facility] [id number] [facility] 10:58:00 10:58:00 t Durbin An[employer] [place] [facility] Medicine Medicine Outpati ent Clinics 2019-04-08 2019-04-08 [facility] [id number] [facility] 17:13:00 17:13:00 t Durb[place] [employer] s - Drive [facility] l Medicine Outpati ent Clinics 2019-03-26 2019-03-26 [facility] [id number] [facility] 07:58:00 07:58:00 t Durbin [employer] s - Drive [facility] Medicine Outpati ent Clinics 2019-02-01 2019-02-01 [facility] [id number] [facility] 10:49:00 10:49:00 t Durbin [employer] s - Drive [facility] Medicine Outpati ent Clinics 2019-01-21 2019-01-21 [facility] [id number] [facility] 12:09:00 12:09:00 t [employer] [employer] s - Drive [facility] Medicine Outpati ent Clinics 2018-12-31 2018-12-31 [facility] [id number] [facility] 13:40:00 13:40:00 t Durbin An[employer] s - [employer] [facility] Medicine l Medicine Outpati ent Clinics 2018-12-24 2018-12-24 [facility] [id number] [facility] 16:51:00 16:51:00 t D[place] [employer] s - Drive [facility] l Medicine Outpati ent Clinics 2018-12-22 2018-12-22 [facility] [id number] [facility] 10:09:00 10:09:00 t D[place] [employer] s - Drive [facility] Medicine Medicine Outpati ent Clinics 2018-12-16 2018-12-16 [facility] [id number] [facility] 13:32:00 13:32:00 t [employer] [employer] s - Drive [facility] Medicine Outpati ent Clinics 2018-12-09 2018-12-09 [facility] [id number] [facility] 15:07:00 15:07:00 t D[employer] [employer] s - Drive [facility] Medicine Medicine Outpati ent Clinics 2018-12-08 2018-12-08 [facility] [id number] [facility] 09:21:00 09:21:00 t [employer] s - Drive [facility] Medicine Outpati ent Clinics 2018-12-07 2018-12-07 [facility] [id number] [facility] 15:10:00 15:10:00 t [employer] [employer] s - Drive [facility] Medicine Outpati ent Clinics 2018-10-29 2018-10-29 [facility] [id number] 11:00:00 11:00:00 t [employer] s - Drive [facility] Medicine Outpati ent Clinics 2018-10-20 2018-10-20 [facility] [id number] 13:23:00 13:23:00 t D[employer]in [employer] - [employer] [facility] Medicine Outpati ent Clinics 2018-10-05 2018-10-05 [facility] [id number] [facility] 16:27:00 16:27:00 t Durbin Anzu s - [employer] [facility] Medicine Outpati ent Clinics 2018-09-25 2018-09-25 [facility] [id number] [facility] 16:15:00 16:15:00 t [employer]in [employer] - [employer] [facility] Medicine Outpati ent Clinics 2018-09-23 2018-09-23 [facility] [id number] 15:54:00 15:54:00 t Durbin An[employer] s - [employer] [facility] Medicine Outpati ent Clinics 2018-08-27 2018-08-27 [facility] [id number] 16:00:00 16:00:00 t [employer] [employer] s - Drive [facility] Medicine Outpati ent Clinics 2018-08-25 2018-08-25 [facility] [id number] [facility] 15:20:00 15:20:00 t D[place] An[employer] s - Drive [facility] Medicine Outpati ent Clinics Results This patient has no known results.
[2020-09-05] MEDS ORDERED: ONDANSETRON 4 MG/2 ML VIAL ONE (19:48)
[2020-09-05] MEDS ORDERED: HYDROMORPHONE HCL 1 MG/ML INJ ONE (19:48)
[2020-09-05] MEDS ORDERED: LIDOCAINE VISCOUS 2% SOLN 15 ML UDC ONE (19:49)
[2020-09-05 20:35] LABS: Albumin 2.8 g/dL (3.4-5.0); Bilirubin Total 0.4 mg/dL (0.2-1.0); Potassium 3.1 mmol/L (3.5-5.1); Protein, Total 7.2 g/dL (6.4-8.2)
[2020-09-05 20:48] LABS: Absolute Lymphocytes (CBC) 1.6 K/uL (0.7-4.9); Basophils % 0.9 % (0-1.3); Hematocrit 37.6 % (36.0-45.0); Lymphocytes % 19.3 % (15.3-44.8); MPV 9.7 fL (7.6-11.3)
[2020-09-05] MEDS ORDERED: CLINDAMYCIN 600MG/D5W 600 MG/50 ML BAG IV ONE (20:53)
[2020-09-05] MEDS ORDERED: KCL 20 MEQ/100 mL IVPB 20 MEQ/100 ML BAG IV ONE (21:26)
--- NOTE | 2020-09-05 22:43 | EDPHYS ---
Physician Documentation [facility] Name: Jv Bryant Age: 65 yrs Sex: Female : 1955 Arrival Date: 09/05/2020 Time: 18:57 Bed 6 Private MD: ED Physician Helena Sorensen HPI: 09/05 22:38 This 65 yrs old Female presents to ER via EMS with complaints of Wound Check. ma2 22:38 Patient presents to ED for recheck of: cellulitis. Progress: The patient reports ma2 increased. The patient has experienced similar episodes in the past. chronic bilat lymphedema, here with intractable pain and warmth of both LE, over the last 2 days, cosntant and she states she is unable to walk . Historical: - Allergies: 19:00 aloe vera; jb4 19:00 Augmentin; jb4 19:00 Bactrim; jb4 19:00 Betadine; jb4 19:00 Celery (Apium Graveolens) (Umbelliferae); jb4 19:00 Demerol; jb4 19:00 Fentanyl; jb4 19:00 FLU VACCINE; jb4 19:00 Iodine; jb4 19:00 Lincocin; jb4 19:00 MACROLIDES; jb4 19:00 mycin; jb4 19:00 peppers; jb4 19:00 Pneumovax 23; jb4 19:00 Rocephin; jb4 19:00 Stelazine; jb4 19:00 Sulfa (Sulfonamide Antibiotics); jb4 19:00 Vancomycin; jb4 - Home Meds: 19:00 aspirin 81 mg Oral chew 1 tab once daily [Active]; diphenhydramine HCl 25 mg Oral tab 1 jb4 tab nightly [Active]; Fluocinolone Acetonide Topical [Active]; docusate sodium 100 mg Oral tab 2 tabs once daily for constipation [Active]; gabapentin 100 mg Oral cap 3 caps nightly for Neuropathic Pain [Active]; hydrocodone-acetaminophen 7.5-325 mg Oral tab 1 tab three times a day [Active]; lovastatin 20 mg Oral tab once daily [Active]; furosemide 40 mg Oral tab 1 tab 2 times per day [Active]; vitamin B12 IM twice a month [Active]; potassium chloride 10 mEq Oral TbER 2 tabs once daily [Active]; metoprolol tartrate 25 mg Oral tab 1 tab 2 times per day [Active]; - PMHx: 19:00 ADD/ADHD; COPD; frequent UTI'S; Hyperlipidemia; heart disease- unspecified; Chronic jb4 pain; Arthritis; Fibromyalgia; Hypertension; insomnia; lymphedema; PERIPHERAL NEUROPATHY; unspecified kidney failure; - Social history:: Patient/guardian denies using alcohol, street drugs, The patient lives with family. - Family history:: not pertinent. ROS: 22:38 Constitutional: Negative for fever, chills, and weight loss. ma2 22:38 All other systems are negative. Exam: 22:38 Constitutional: This is a well developed, well nourished patient who is awake, alert, ma2 and in no acute distress. Chest/axilla: Normal chest wall appearance and motion. Nontender with no deformity. No lesions are appreciated. Cardiovascular: Regular rate and rhythm with a normal S1 and S2. No gallops, murmurs, or rubs. Normal PMI, no JVD. No pulse deficits. Respiratory: Lungs have equal breath sounds bilaterally, clear to auscultation and percussion. No rales, rhonchi or wheezes noted. No increased work of breathing, no retractions or nasal flaring. Abdomen/GI: Soft, non-tender, with normal bowel sounds. No distension or tympany. No guarding or rebound. No evidence of tenderness throughout. Skin: Warm, dry with normal turgor. Normal color with no rashes, no lesions, and no evidence of cellulitis. MS/ Extremity: bilateral LE lymphedema and bilateral leg cellulitis measures 15x15 cm on both legs, + warmth and redness and tenderness, no abscess or crepitations, otherwise Pulses equal, no cyanosis. Neurovascular intact. Full, normal range of motion. Neuro: Awake and alert, GCS 15, oriented to person, place, time, and situation. Cranial nerves II-XII grossly intact. Motor strength 5/5 in all extremities. Sensory grossly intact. Cerebellar exam normal. Normal gait. Vital Signs: 19:30 BP 116 / 50; Pulse 72; Resp 18 S; Temp 98.5; Pulse Ox 94% on R/A; Weight 154.22 kg (R); bb Height 5 ft. 4 in. (162.56 cm) (R); 20:19 BP 133 / 70; Pulse 71; Resp 16; Pulse Ox 97% on R/A; bb 21:09 BP 101 / 73; Pulse 78; Resp 18; Pulse Ox 96% on 2 lpm NC; 4 22:30 BP 131 / 79; Pulse 67; Resp 18; Pulse Ox 94% on 2 lpm NC; 4 09/06 00:00 BP 104 / 59; Pulse 68; Resp 16; Pulse Ox 93% on 2 lpm NC; [facility] 09/05 19:30 Body Mass Index 58.36 (154.22 kg, 162.56 cm) bb MDM: 09/05 19:03 Patient medically screened. il2 22:38 Differential diagnosis: cellulitis. Data reviewed: vital signs, nurses notes. il2 Counseling: I had a detailed discussion with the patient and/or guardian regarding: the historical points, exam findings, and any diagnostic results supporting the discharge/admit diagnosis, the presence of at least one elevated blood pressure reading (>120/80) during this emergency department visit, the need for further work-up and treatment in the hospital. Response to treatment: the patient's symptoms have markedly improved after treatment. ED course: will admit for intractable pain and patient is unable to walk, she does not have sirs or sepsis, she has appointment tomorrow with dr. cardenas . 09/05 19:12 Order name: CBC with Diff [facility] 09/05 19:12 Order name: CMP; Complete Time: 20:46 [facility] 09/05 19:12 Order name: Blood Culture Adult (2) [facility] 09/05 19:12 Order name: Lactate; Complete Time: 20:46 [facility] 09/05 19:12 Order name: Procalcitonin; Complete Time: 22:35 [facility] 09/05 19:13 Order name: CBC with Automated Diff; Complete Time: 22:35 [facility] 09/05 21:49 Order name: SARS-COV-2 RT PCR; Complete Time: 22:35 [facility] 09/05 22:51 Order name: CONS Physician Consult [facility] 09/05 19:14 Order name: Dressing - Wound: remove all dressing please ; Complete Time: 19:50 il2 Administered Medications: 19:36 Drug: Dilaudid (HYDROmorphone) 1 mg Route: IVP; Site: right antecubital; jb4 20:20 Follow up: Response: No adverse reaction; Marked relief of symptoms; Pain is decreased; jb4 RASS: Alert and Calm (0) 19:40 Drug: Zofran (Ondansetron) 4 mg Route: IVP; Site: right antecubital; jb4 20:20 Follow up: Response: No adverse reaction jb4 20:30 Drug: Clindamycin 600 mg Route: IVPB; Infused Over: 30 mins; Site: right antecubital; jb4 21:00 Follow up: Response: No adverse reaction; IV Status: Completed infusion jb4 20:42 Not Given (Physician Discretion): Viscous Lidocaine Liquid (4 %) 10 ml Mucous Membrane jb4 once 21:09 Drug: Potassium Chloride 20 mEq Route: IV; Rate: calculated rate; Site: right jb4 antecubital; 23:09 Follow up: Response: No adverse reaction; IV Status: Completed infusion jb4 Disposition Summary: 09/05/20 22:42 Hospitalization Ordered Hospitalization Status: Observation ma2 [facility] ma2 Condition: Stable ma2 Problem: new ma2 Symptoms: are unchanged ma2 Bed/Room Type: Standard ma2 Provider: Helena Lamb(09/05/20 23:25) [email or web address] Room Assignment: [facility](09/06/20 00:18) tl1 Diagnosis - Cellulitis and acute lymphangitis of other parts of limb - bilateral LE ma2 Forms: - Medication Reconciliation Form ma2 - SBAR form ma2 Signatures: Dispatcher [employer] EDRadha Walls RN RN tl1 Quentin Lopez RN RN jb4 Helena Sorensen MD MD ma2 Corrections: (The following items were deleted from the chart) 20:56 20:43 CORONAVIRUS+MR.LAB.BRZ ordered. EDFL EDMS 23:25 22:42 Tad Bess ma2 ma2 09/06 00:18 09/05 22:42 ma2 tl1
--- NOTE | 2020-09-05 22:43 | ER ---
Nurse's Notes [facility] Name: Jv Bryant Age: 65 yrs Sex: Female : 1955 Arrival Date: 09/05/2020 Time: 18:57 Bed 6 Private MD: Diagnosis: Cellulitis and acute lymphangitis of other parts of limb-bilateral LE Presentation: 09/05 18:57 Chief complaint: EMS states: Lymphedema and possible infected wounds to griselda legs that aa5 got worse over the last week. Onset of symptoms is unknown. 18:57 Method Of Arrival: EMS: [facility] aa5 19:00 Coronavirus screen: Client denies travel out of the [place] in the last 14 days. At this jb4 time, the client does not indicate any symptoms associated with coronavirus-19. Ebola Screen: No symptoms or risks identified at this time. 19:00 Initial Sepsis Screen: Does the patient meet any 2 criteria? No. Patient's initial jb4 sepsis screen is negative. Does the patient have a suspected source of infection? Yes: Skin breakdown/wound. Risk Assessment: Do you want to hurt yourself or someone else? Patient reports no desire to harm self or others. Transition of care: patient was not received from another setting of care. 19:00 Acuity: SKYLER 3 jb4 Historical: - Allergies: 19:00 aloe vera; jb4 19:00 Augmentin; jb4 19:00 Bactrim; jb4 19:00 Betadine; jb4 19:00 Celery (Apium Graveolens) (Umbelliferae); jb4 19:00 Demerol; jb4 19:00 Fentanyl; jb4 19:00 FLU VACCINE; jb4 19:00 Iodine; jb4 19:00 Lincocin; jb4 19:00 MACROLIDES; jb4 19:00 mycin; jb4 19:00 peppers; jb4 19:00 Pneumovax 23; jb4 19:00 Rocephin; jb4 19:00 Stelazine; jb4 19:00 Sulfa (Sulfonamide Antibiotics); jb4 19:00 Vancomycin; jb4 - Home Meds: 19:00 aspirin 81 mg Oral chew 1 tab once daily [Active]; diphenhydramine HCl 25 mg Oral tab 1 jb4 tab nightly [Active]; Fluocinolone Acetonide Topical [Active]; docusate sodium 100 mg Oral tab 2 tabs once daily for constipation [Active]; gabapentin 100 mg Oral cap 3 caps nightly for Neuropathic Pain [Active]; hydrocodone-acetaminophen 7.5-325 mg Oral tab 1 tab three times a day [Active]; lovastatin 20 mg Oral tab once daily [Active]; furosemide 40 mg Oral tab 1 tab 2 times per day [Active]; vitamin B12 IM twice a month [Active]; potassium chloride 10 mEq Oral TbER 2 tabs once daily [Active]; metoprolol tartrate 25 mg Oral tab 1 tab 2 times per day [Active]; - PMHx: 19:00 ADD/ADHD; COPD; frequent UTI'S; Hyperlipidemia; heart disease- unspecified; Chronic jb4 pain; Arthritis; Fibromyalgia; Hypertension; insomnia; lymphedema; PERIPHERAL NEUROPATHY; unspecified kidney failure; - Social history:: Patient/guardian denies using alcohol, street drugs, The patient lives with family. - Family history:: not pertinent. Screenin:00 Abuse screen: Denies threats or abuse. Nutritional screening: No deficits noted. jb4 Tuberculosis screening: No symptoms or risk factors identified. Fall Risk Secondary diagnosis (15 points) impaired mobility, Ambulatory Aid- Crutches/Cane/Walker (15 pts). Total Garcia Fall Scale indicates Low Risk Score (25-44 pts). Fall prevention measures have been instituted. Side Rails Up X 2 Placed close to Nursing Station Frequent Obs/Assesments occuring Family Present and informed to notify staff if they need to leave bedside As available Patient and Family Educated on Fall Prevention Program and strategies. Assessment: 19:00 General: Appears in no apparent distress. uncomfortable, Behavior is calm, cooperative, jb4 appropriate for age, Pt has swelling to GRISELDA lower extremities. Extremities are reddened and warm to the touch, weeping is noted along with a foul odor. Pt reports having assistance once per week from a home care aide to help change her dressing. swelling, redness and drainage extends from the posterior aspect of the thigh to the feet GRISELDA.. Pain: Complains of pain in right foot, left foot, right leg and left leg Pain does not radiate. Pain currently is 10 out of 10 on a pain scale. Neuro: Level of Consciousness is awake, alert, obeys commands, Oriented to person, place, time, situation. Cardiovascular: Patient's skin is warm and dry. Respiratory: Airway is patent Respiratory effort is even, unlabored, Respiratory pattern is regular, symmetrical. GI: No signs and/or symptoms were reported involving the gastrointestinal system. : No signs and/or symptoms were reported regarding the genitourinary system. EENT: No signs and/or symptoms were reported regarding the EENT system. Derm: Skin is intact, Skin is pink, warm \T\ dry. Musculoskeletal: Circulation, motion, and sensation intact. Range of motion: limited in Right and left leg due to swelling Swelling present in right leg and left leg. 20:00 Reassessment: Patient appears in no apparent distress at this time. Patient and/or jb4 family updated on plan of care and expected duration. Pain level reassessed. Patient is alert, oriented x 3, equal unlabored respirations, skin warm/dry/pink. Patient states feeling better. 21:09 Reassessment: Patient appears in no apparent distress at this time. Patient and/or jb4 family updated on plan of care and expected duration. Pain level reassessed. Patient is alert, oriented x 3, equal unlabored respirations, skin warm/dry/pink. 21:15 Reassessment: PT report wanting to keep her legs unwrapped at this time. jb4 22:00 Reassessment: Patient appears in no apparent distress at this time. Patient and/or jb4 family updated on plan of care and expected duration. Pain level reassessed. Patient is alert, oriented x 3, equal unlabored respirations, skin warm/dry/pink. 23:00 Reassessment: Patient appears in no apparent distress at this time. Patient and/or jb4 family updated on plan of care and expected duration. Pain level reassessed. Patient is alert, oriented x 3, equal unlabored respirations, skin warm/dry/pink. 09/06 00:00 Reassessment: Patient appears in no apparent distress at this time. Patient and/or jb4 family updated on plan of care and expected duration. Pain level reassessed. Patient is alert, oriented x 3, equal unlabored respirations, skin warm/dry/pink. Vital Signs: 09/05 19:30 BP 116 / 50; Pulse 72; Resp 18 S; Temp 98.5; Pulse Ox 94% on R/A; Weight 154.22 kg (R); bb Height 5 ft. 4 in. (162.56 cm) (R); 20:19 BP 133 / 70; Pulse 71; Resp 16; Pulse Ox 97% on R/A; bb 21:09 BP 101 / 73; Pulse 78; Resp 18; Pulse Ox 96% on 2 lpm NC; jb4 22:30 BP 131 / 79; Pulse 67; Resp 18; Pulse Ox 94% on 2 lpm NC; jb4 09/06 00:00 BP 104 / 59; Pulse 68; Resp 16; Pulse Ox 93% on 2 lpm NC; jb4 09/05 19:30 Body Mass Index 58.36 (154.22 kg, 162.56 cm) bb ED Course: 09/05 18:57 Patient arrived in ED. aa5 18:57 Arm band placed on. aa5 19:00 Patient has correct armband on for positive identification. Bed in low position. Call jb4 light in reach. Side rails up X 1. Pulse ox on. NIBP on. 19:03 Helena Sorensen MD is Attending Physician. ma2 19:30 Inserted saline lock: 18 gauge in right antecubital area, using aseptic technique. jb4 Blood collected. 19:30 Initial lab(s) drawn, by wi, sent to lab. First set of blood cultures drawn by wi. jb4 19:45 Second set of blood cultures drawn by wi. jb4 19:51 Triage completed. jb4 20:28 Quentin Lopez, ALO is Primary Nurse. jb4 22:42 Tad Bess DO is Hospitalizing Provider. ma2 23:25 Hospitalizing Provider role handed off by Tad Bess DO ma2 23:25 Helena Lamb MD is Hospitalizing Provider. ma2 09/06 02:30 No provider procedures requiring assistance completed. Patient admitted, IV remains in jb4 place. Administered Medications: 09/05 19:36 Drug: Dilaudid (HYDROmorphone) 1 mg Route: IVP; Site: right antecubital; jb4 20:20 Follow up: Response: No adverse reaction; Marked relief of symptoms; Pain is decreased; jb4 RASS: Alert and Calm (0) 19:40 Drug: Zofran (Ondansetron) 4 mg Route: IVP; Site: right antecubital; jb4 20:20 Follow up: Response: No adverse reaction jb4 20:30 Drug: Clindamycin 600 mg Route: IVPB; Infused Over: 30 mins; Site: right antecubital; jb4 21:00 Follow up: Response: No adverse reaction; IV Status: Completed infusion jb4 20:42 Not Given (Physician Discretion): Viscous Lidocaine Liquid (4 %) 10 ml Mucous Membrane jb4 once 21:09 Drug: Potassium Chloride 20 mEq Route: IV; Rate: calculated rate; Site: right jb4 antecubital; 23:09 Follow up: Response: No adverse reaction; IV Status: Completed infusion jb4 Outcome: 22:42 Decision to Hospitalize by Provider. ma2 09/06 02:50 Admitted to Tele accompanied by nurse, via stretcher, room 402, Report called to jennifer Pimentel RN Condition: stable Discharge instructions given to patient, Instructed on the need for admit, Demonstrated understanding of instructions. 02:54 Patient left the ED. bb Signatures: Nusrat Emanuel RN RN Shilpi Ashford RN RN [id number] Quentin Lopez RN RN jb4 Helena Sorensen MD MD co2
--- NOTE | 2020-09-05 23:38 | P.HP ---
Certification for Inpatient Patient admitted to: Observation With expected LOS: <2 Midnights Patient will require the following post-hospital care: None Practitioner: I am a practitioner with admitting privileges, knowledge of patient current condition, hospital course, and medical plan of care. Services: Services provided to patient in accordance with Admission requirements found in Title 42 Section 412.3 of the Code of Federal Regulations <JoshuaUriel Rodarte - Last Filed: 09/05/20 23:31> Patient History Date of Service: 09/05/20 Reason for admission: cellulitis History of Present Illness: Ms. Angel Bryant is a 65 yo F with chronic lymphedema, CHf, HTn, HLD ,fibromyalgia, COPD here today for increasing leg pain and fever for the past 1.5 weeks. She says pain is worse in her left leg than right leg. Pain is worse with movement. She reports night sweats and chills. Denies nauesa nad vomiting. Last admission for cellulitis 09/2019, has been following with wound care since then. Has an appointment with wound care for tomorrow. K 3.1. - Past Medical/Surgical History Diabetic: No -: Lymphedema - bilateral leg -: Morbid obesity with Hx of Lap. Band -: Peripheral neuropathy -: Osteoarthritis -: mild COPD -: mild eczema -: Depression -: Sleep apnea -: CHF -: CRE -: hypertension -: frequent UTIs -: -: Lap band 2008 -: Tonsillectomy and adenoidectomy Psychosocial/ Personal History: , Disabled. One son. - Family History Father -: Heart disease Mother -: Hypertension, Stroke Notes: erin joshua syndrome - Social History Smoking Status: Former smoker Alcohol use: No CD- Drugs: No Caffeine use: Yes Place of Residence: Home <rUiel Lewis - Last Filed: 09/05/20 23:31> Date of Service: 09/07/20 <Helena Lamb - Last Filed: 09/07/20 10:42> Allergies amoxicillin [From Augmentin] Allergy (Severe, Verified 09/16/19 23:49) diarrhea, nausea, vomiting ceftriaxone [From Rocephin] Allergy (Severe, Verified 09/16/19 23:49) Itching/Hives/Rash fentanyl Allergy (Severe, Verified 09/16/19 23:49) Itching/Hives/Rash iodine Allergy (Severe, Verified 09/16/19 23:49) Unknown lincomycin [From Lincocin] Allergy (Severe, Verified 09/16/19 23:49) rashes,headaches pneumococcal vaccine [From Pneumovax 23] Allergy (Severe, Verified 09/16/19 23:49) sick more than a week sulfamethoxazole [From Bactrim] Allergy (Severe, Verified 09/16/19 23:49) Anaphylaxis trifluoperazine [From Stelazine] Allergy (Severe, Verified 09/16/19 23:49) itching and rashes vancomycin Allergy (Severe, Verified 09/16/19 23:49) renal failure soap [From Betadine] Allergy (Mild, Verified 09/16/19 23:49) Hives/Rash Sulfa (Sulfonamide Antibiotics) Allergy (Mild, Verified 09/16/19 23:49) Anaphylaxis aloe vera Allergy (Verified 09/16/19 23:49) Itching celery Allergy (Verified 09/16/19 23:49) Nausea/Vomiting Macrolide Antibiotics Allergy (Verified 09/16/19 23:49) Itching/Hives/Rash FLU VACCINE Allergy (Severe, Uncoded 09/16/19 23:49) sick for more than a week aloe vera Allergy (Uncoded 09/16/19 23:49) Unknown hall peppers Allergy (Uncoded 09/16/19 23:49) Nausea/Vomiting celery Allergy (Uncoded 09/16/19 23:49) Unknown FLU VAC Allergy (Uncoded 09/16/19 23:49) Unknown peppers Allergy (Uncoded 09/16/19 23:49) Unknown Home Medications: Furosemide [Lasix*] 1 tab PO BID 12/15/17 Gabapentin [Neurontin*] 300 mg PO TID 12/15/17 Lovastatin 1 tab PO BEDTIME 12/15/17 Oxybutynin Chloride [Ditropan*] 5 mg PO PRN 07/04/18 Diphenhydramine [Benadryl*] 1 tab PO BEDTIME 09/16/19 Metoprolol Tartrate [Lopressor*] 1 tab PO BID 09/16/19 Sennosides/Docusate Sodium [Stool Softener-Stim Lax Tablet] 1 tab PO PRN 09/16/19 Doxycycline Monohydrate 100 mg PO DAILY 09/06/20 Review of Systems 10-point ROS is otherwise unremarkable General: Fever, Chills, Sweats Musculoskeletal: Leg Pain <Uriel Lewis - Last Filed: 09/05/20 23:31> Physical Examination - Physical Exam General: Alert, In no apparent distress, Oriented x3, Cooperative, Obese HEENT: Atraumatic, PERRLA, Mucous membr. moist/pink, EOMI, Sclerae nonicteric Neck: Supple, 2+ carotid pulse no bruit, No LAD, Without JVD or thyroid abnormality Respiratory: Normal air movement Cardiovascular: Regular rate/rhythm, Normal S1 S2, No gallops, No rubs, No murmurs Capillary refill: <2 Seconds Gastrointestinal: Normal bowel sounds, No tenderness Musculoskeletal: No clubbing, No contractures, Swelling, Erythema, Tenderness, Warmth Integumentary: No rashes, No cyanosis, Skin breakdown, Skin lesion, Tenderness/swelling, Erythema, Warmth, Other (severe chronic lymphedema) Neurological: Normal speech, Normal strength at 5/5 x4 extr, Normal tone, Cranial nerves 3-12 intact, Normal affect, Abnormal gait Lymphatics: No axilla or inguinal lymphadenopathy Urinary: Suprapubic catheter - Studies Laboratory Data (last 24 hrs) 09/05/20 19:30: Sodium 142, Potassium 3.1 L, BUN 8, Creatinine 0.68, Glucose 101, Total Bilirubin 0.4, AST 11 L, ALT 13, Alkaline Phosphatase 60 09/05/20 19:30: WBC 8.40, Hgb 12.8, Hct 37.6, Plt Count 279 <Uriel Lewis - Last Filed: 09/05/20 23:31> Assessment and Plan - Problems (Diagnosis) (1) Hypokalemia Current Visit: No Status: Acute (2) COPD (chronic obstructive pulmonary disease) Current Visit: No Status: Chronic Qualifiers: COPD type: unspecified COPD Qualified Code(s): J44.9 - Chronic obstructive pulmonary disease, unspecified (3) Fibromyalgia Onset Date: 05/26/14 Current Visit: No Status: Chronic (4) Lymphedema of both lower extremities Onset Date: 12/12/16 Current Visit: No Status: Chronic (5) Morbid obesity Current Visit: No Status: Chronic (6) Cellulitis of both lower extremities Onset Date: 08/21/15 Current Visit: No Status: Acute (7) Obesity (BMI 30-39.9) Onset Date: 05/25/14 Current Visit: No Status: Chronic Qualifiers: Obesity type: unspecified obesity type Obesity classification: unspecified obesity classification Serious obesity comorbidity presence: with serious comorbidity Qualified Code(s): E66.9 - Obesity, unspecified - Plan general surgery and wound care consulted will continue IV clindamycin potassium replacement as needed pain management and O2 as needed blood cultures pending BP stable, continue to monitor reconcile and continue home medications Discharge Plan: Home Plan to discharge in: 48 Hours - Advance Directives Does patient have a Living Will: No Does patient have a Durable POA for Healthcare: No - Code Status/Comfort Care Code Status Assessed: Yes (full code ) Critical Care: No Time Spent Managing Pts Care (In Minutes): 70 <Uriel Lewis - Last Filed: 09/05/20 23:31> Date of Service: 09/05/20 Agree with plan of care as mentioned above. Continue with diuresing and we will continue with antibiotic therapy and wound care. Will try to get retirement facility placement. Physical therapy evaluation. Anticipate discharge over the next 24-48 hr if patient continues to improve. <Helena Lamb - Last Filed: 09/07/20 10:42>
[2020-09-06] MEDS ORDERED: ACETAMINOPHEN 500 MG TAB PO PRN (02:09)
[2020-09-06] MEDS ORDERED: ONDANSETRON 4 MG/2 ML VIAL IV PRN (02:09)
[2020-09-06] MEDS: MORPHINE 2 MG/ML SYR IV PRN ×2 (02:49→21:21)
[2020-09-06 03:42] LABS: Absolute Lymphocytes (CBC) 1.9 K/uL (0.7-4.9); Basophils % 0.2 % (0-1.3); Hematocrit 36.3 % (36.0-45.0); Lymphocytes % 21.7 % (15.3-44.8); MPV 9.2 fL (7.6-11.3)
[2020-09-06 04:00] LABS: Albumin 2.5 g/dL (3.4-5.0); Bilirubin Total 0.3 mg/dL (0.2-1.0); Magnesium 1.9 mg/dL (1.8-2.4); Phosphorus 3.8 mg/dL (2.5-4.9); Potassium 3.4 mmol/L (3.5-5.1); Protein, Total 6.8 g/dL (6.4-8.2)
[2020-09-06 04:37] LABS: Urine Appearance CLOUDY (Clear); Urine Bilirubin NEGATIVE (Negative); Urine Blood 3+ (Negative); Urine Color YELLOW (Yellow); Urine Glucose NEGATIVE (Negative); Urine Protein NEGATIVE (Negative)
[2020-09-06 04:43] LABS: Urine Microscopic Reflex ORDER UMIC
[2020-09-06 04:50] LABS: Blood Morphology Comment NOT SEEN (NOT SEEN); Platelet Estimate ADEQ
[2020-09-06] MEDS ORDERED: CLINDAMYCIN INJ 600 MG in NA CHLORIDE 0.9% 50 ML IV SCH (05:00)
[2020-09-06 05:23] LABS: Urine Bacteria >50 /HPF (<20); Urine RBC <5 /HPF (NONE SEEN); Urine Triple Phosphate Crystal FEW (NONE SEEN)
[2020-09-06] MEDS ORDERED: CLINDAMYCIN 600MG/D5W 600 MG/50 ML BAG IV ONE (05:30)
[2020-09-06] MEDS ORDERED: OXYBUTYNIN CHLORIDE 5 MG TAB PO PRN (08:00)
[2020-09-06] MEDS ORDERED: DOCUSATE NA/SENNA CONC 1 TAB PO SCH (08:00)
[2020-09-06] MEDS ORDERED: POTASSIUM CL SA 10 MEQ TAB PO ONE ×2 (09:00)
[2020-09-06] MEDS: ENOXAPARIN 40 MG/0.4 ML SQ SCH (10:45)
[2020-09-06] MEDS: FUROSEMIDE 40 MG TABLET PO SCH ×2 (10:47→15:05)
[2020-09-06] MEDS: METOPROLOL TAR 25 MG TAB PO SCH ×2 (10:50→20:55)
[2020-09-06] MEDS: GABAPENTIN 100 MG CAP PO SCH ×3 (10:52→21:00)
[2020-09-06] MEDS: CLINDAMYCIN INJ 600 MG in NA CHLORIDE 0.9% 50 ML IV SCH ×2 (10:59→17:20)
--- NOTE | 2020-09-06 12:22 | RAD REPORT ---
EXAM DESCRIPTION: Chrissy Single View09/06/2020 12:08 pm CLINICAL HISTORY: Shortness of breath COMPARISON: 2019 FINDINGS: Upper lobe vessels are prominent indicative of pulmonary venous hypertension. Heart is mildly enlarged. Lungs appear clear of acute infiltrate
--- NOTE | 2020-09-06 13:27 | RAD REPORT ---
EXAM DESCRIPTION: USExtrem Venous W Compress Bil09/06/2020 1:02 pm CLINICAL HISTORY: Leg swelling COMPARISON: none FINDINGS: Examination is limited secondary to body habitus. The common femoral, superficial femoral, popliteal and posterior tibial veins bilaterally are elizabeth sible and demonstrate augmentation. Doppler demonstrates good flow. IMPRESSION: No gross evidence evidence of deep venous thrombosis involving either lower extremity.
[2020-09-06] MEDS: MEDIHONEY 44 ML TOPICAL TUBE TOP SCH (20:55)
[2020-09-06] MEDS: DIPHENHYDRAMINE 25 MG TAB/CAP PO SCH (20:55)
[2020-09-06] MEDS: ATORVASTATIN 10 MG TAB PO SCH (20:55)
[2020-09-06] MEDS: GABAPENTIN 300 MG CAP PO SCH (22:00)
[2020-09-07] MEDS: CLINDAMYCIN INJ 600 MG in NA CHLORIDE 0.9% 50 ML IV SCH ×3 (00:13→17:54)
[2020-09-07] MEDS: MORPHINE 2 MG/ML SYR IV PRN ×2 (01:10→18:02)
[2020-09-07 04:09] LABS: Potassium 3.3 mmol/L (3.5-5.1)
[2020-09-07] MEDS ORDERED: POTASSIUM CL SA 10 MEQ TAB PO ONE ×2 (04:15→21:00)
[2020-09-07] MEDS: METOPROLOL TAR 25 MG TAB PO SCH ×2 (09:00→20:38)
[2020-09-07] MEDS: FUROSEMIDE 40 MG TABLET PO SCH ×2 (09:00→13:59)
[2020-09-07] MEDS: ENOXAPARIN 40 MG/0.4 ML SQ SCH (09:00)
[2020-09-07] MEDS: MEDIHONEY 44 ML TOPICAL TUBE TOP SCH (10:03)
[2020-09-07] MEDS: GABAPENTIN 300 MG CAP PO SCH ×3 (10:12→20:38)
--- NOTE | 2020-09-07 10:47 | P.PN ---
Subjective Date of Service: 09/06/20 Subjective: No new changes, No C/O voiced Patient is seen by a wound healing Center. Patient also will need possible home health with wound care more patient will need prison facility placement. Physical therapy evaluation pending. Review of Systems 10-point ROS is otherwise unremarkable Physical Examination - Vital Signs Temperature: 97.2 F Blood Pressure: 106/53 Pulse: 57 Respirations: 19 Pulse Ox (%): 94 - Physical Exam General: Alert, Oriented x3, Obese Neck: Supple Respiratory: Diminished, Crackles/rales Cardiovascular: Regular rate/rhythm, Normal S1 S2, Systolic murmur Gastrointestinal: Soft and benign, Non-distended, No tenderness Musculoskeletal: Swelling, Erythema, Tenderness Integumentary: Tenderness/swelling, Erythema, Warmth Neurological: Normal tone, Cranial nerves 3-12 intact, Abnormal gait, Abnormal strength Lymphatics: Other (Bilateral lower extremity lymphedema) Assessment & Plan - Problems (Diagnosis) (1) Debility Current Visit: Yes Status: Acute (2) Cellulitis of both lower extremities Onset Date: 08/21/15 Current Visit: No Status: Acute (3) Venous stasis ulcer of left thigh Current Visit: No Status: Acute (4) COPD (chronic obstructive pulmonary disease) Current Visit: No Status: Chronic Qualifiers: COPD type: unspecified COPD Qualified Code(s): J44.9 - Chronic obstructive pulmonary disease, unspecified (5) Fibromyalgia Onset Date: 05/26/14 Current Visit: No Status: Chronic (6) Lymphedema of both lower extremities Onset Date: 12/12/16 Current Visit: No Status: Chronic (7) Morbid obesity Current Visit: No Status: Chronic (8) Peripheral neuropathy Onset Date: 08/21/15 Current Visit: No Status: Chronic Qualifiers: - Plan 1. Continue with IV antibiotic 2. Continue with local wound care 3. Wound care consultation 4. Continue with Lasix; may had albumin-Lasix drip 5. Monitor CBC 6. Strict blood sugar monitoring 7. Pain control 8. [facility] facility placement 9. GI and DVT prophylaxis Discharge Plan: Home Plan to discharge in: Greater than 2 days - Advance Directives Does patient have a Living Will: No Does patient have a Durable POA for Healthcare: No - Code Status/Comfort Care Code Status Assessed: Yes Code Status: Full Code Critical Care: No Time Spent Managing PTS Care (In Minutes): 35
--- NOTE | 2020-09-07 10:50 | P.PN ---
Date of Service: 09/07/20 Subjective Continue with diuresing. Start Lasix albumin drip for 24 hr. Continue with antibiotics and wound care. Arrange for home health and senior living facility placement. Spoke with General surgery regarding patient's plan of care. Outpatient follow with wound healing Center. Review of Systems 10-point ROS is otherwise unremarkable Physical Examination - Vital Signs Reviewed - Physical Exam General: Alert, Oriented x3, Obese Respiratory: Diminished, Crackles/rales Cardiovascular: Regular rate/rhythm, Normal S1 S2, Systolic murmur Gastrointestinal: Soft and benign, Non-distended, No tenderness Musculoskeletal: Swelling, Erythema, Tenderness Integumentary: Tenderness/swelling, Erythema, Warmth Neurological: Normal tone, Cranial nerves 3-12 intact, Abnormal gait, Abnormal strength Lymphatics: Other (Bilateral lower extremity lymphedema) Assessment & Plan - Problems (Diagnosis) (1) Debility Current Visit: Yes Status: Acute (2) Cellulitis of both lower extremities Onset Date: 08/21/15 Current Visit: No Status: Acute (3) Venous stasis ulcer of left thigh Current Visit: No Status: Acute (4) COPD (chronic obstructive pulmonary disease) Current Visit: No Status: Chronic Qualifiers: COPD type: unspecified COPD Qualified Code(s): J44.9 - Chronic obstructive pulmonary disease, unspecified (5) Fibromyalgia Onset Date: 05/26/14 Current Visit: No Status: Chronic (6) Lymphedema of both lower extremities Onset Date: 12/12/16 Current Visit: No Status: Chronic (7) Morbid obesity Current Visit: No Status: Chronic (8) Peripheral neuropathy Onset Date: 08/21/15 Current Visit: No Status: Chronic Qualifiers: - Plan Continue with plan of care as mentioned below: 1. Continue with IV antibiotic 2. Continue with local wound care 3. Wound care consultation appreciated 4. Continue albumin-Lasix drip 5. Monitor CBC 6. Strict blood sugar monitoring 7. Pain control 8. halfway facility placement evaluation 9. GI and DVT prophylaxis
[2020-09-07] MEDS: ALBUMIN HUMAN 25% 12.5 GM, FUROSEMIDE 100 MG in NA CHLORIDE 0.9% 40 ML IV SCH ×3 (11:48→21:00)
[2020-09-07] MEDS: ATORVASTATIN 10 MG TAB PO SCH (20:38)
[2020-09-07] MEDS: DIPHENHYDRAMINE 25 MG TAB/CAP PO SCH (20:38)
[2020-09-08] MEDS: CLINDAMYCIN INJ 600 MG in NA CHLORIDE 0.9% 50 ML IV SCH ×3 (00:13→17:00)
[2020-09-08 06:47] LABS: Absolute Lymphocytes (CBC) 1.2 K/uL (0.7-4.9); Basophils % 0.4 % (0-1.3); Hematocrit 37.5 % (36.0-45.0); Lymphocytes % 13.4 % (15.3-44.8); MPV 9.3 fL (7.6-11.3); RBC Red Blood Cell Count 4.21 M/uL (3.86-4.86)
[2020-09-08 07:40] LABS: Folic Acid, (Folate) 9.5 ng/mL (3.1-17.5); Phosphorus 3.8 mg/dL (2.5-4.9); Potassium 3.5 mmol/L (3.5-5.1); Thyroid Stimulating Hormone 1.26 uIU/mL (0.360-3.740)
[2020-09-08] MEDS: ENOXAPARIN 40 MG/0.4 ML SQ SCH (09:00)
[2020-09-08] MEDS: FUROSEMIDE 40 MG TABLET PO SCH ×2 (10:20→15:36)
[2020-09-08] MEDS: GABAPENTIN 300 MG CAP PO SCH ×3 (10:20→20:48)
[2020-09-08] MEDS: METOPROLOL TAR 25 MG TAB PO SCH ×2 (10:21→21:00)
[2020-09-08] MEDS: MEDIHONEY 44 ML TOPICAL TUBE TOP SCH (10:22)
[2020-09-08] MEDS ORDERED: HYDROCODONE/APAP 10/325 TAB PO PRN (14:11)
[2020-09-08] MEDS ORDERED: FLEET ENEMA ADULT PR PRN (14:12)
[2020-09-08] MEDS: FLUCONAZOLE 200mg IVPB 200 MG/100 ML BAG IV SCH (15:37)
[2020-09-08] MEDS: ALBUMIN HUMAN 25% 12.5 GM, FUROSEMIDE 100 MG in NA CHLORIDE 0.9% 40 ML IV SCH ×2 (16:34→22:10)
--- NOTE | 2020-09-08 17:58 | P.PN ---
Date of Service: 09/08/20 Subjective Were able to diurese 15 L of fluid. Continue with Lasix and albumin drip today as well. Monitor volume status and renal function closely. Lower extremity edema has improved inpatient respiratory status is better too. Arrange for home oxygen. Arrange for home health. Review of Systems 10-point ROS is otherwise unremarkable Physical Examination - Vital Signs Reviewed - Physical Exam General: Alert, Oriented x3, Obese Respiratory: Diminished, Crackles/rales Cardiovascular: Regular rate/rhythm, Normal S1 S2, Systolic murmur Gastrointestinal: Soft and benign, Non-distended, No tenderness Musculoskeletal: Swelling, Erythema, Tenderness Integumentary: Tenderness/swelling, Erythema, Warmth Neurological: Normal tone, Cranial nerves 3-12 intact, Abnormal gait, Abnormal strength Lymphatics: Other (Bilateral lower extremity lymphedema) Assessment & Plan - Problems (Diagnosis) (1) Debility Current Visit: Yes Status: Acute (2) Cellulitis of both lower extremities Onset Date: 08/21/15 Current Visit: No Status: Acute (3) Venous stasis ulcer of left thigh Current Visit: No Status: Acute (4) COPD (chronic obstructive pulmonary disease) Current Visit: No Status: Chronic Qualifiers: COPD type: unspecified COPD Qualified Code(s): J44.9 - Chronic obstructive pulmonary disease, unspecified (5) Fibromyalgia Onset Date: 05/26/14 Current Visit: No Status: Chronic (6) Lymphedema of both lower extremities Onset Date: 12/12/16 Current Visit: No Status: Chronic (7) Morbid obesity Current Visit: No Status: Chronic (8) Peripheral neuropathy Onset Date: 08/21/15 Current Visit: No Status: Chronic Qualifiers: - Plan Continue with plan of care as mentioned below: 1. Continue with IV antibiotic 2. Continue with local wound care 3. Wound care consultation appreciated 4. Continue albumin-Lasix drip; 15 L of urine output 5. Monitor CBC 6. Strict blood sugar monitoring 7. Pain control 8. nursing home facility placement was recommended but patient refused 9. GI and DVT prophylaxis
[2020-09-08] MEDS ORDERED: CYANOCOBALAMIN 1000MCG/ML INJ IM ONE (19:00)
[2020-09-08] MEDS: DIPHENHYDRAMINE 25 MG TAB/CAP PO SCH (20:47)
[2020-09-08] MEDS: ATORVASTATIN 10 MG TAB PO SCH (20:47)
[2020-09-09] MEDS: CLINDAMYCIN INJ 600 MG in NA CHLORIDE 0.9% 50 ML IV SCH ×3 (00:22→16:20)
[2020-09-09] MEDS: ALBUMIN HUMAN 25% 12.5 GM, FUROSEMIDE 100 MG in NA CHLORIDE 0.9% 40 ML IV SCH (01:29)
[2020-09-09] MEDS: GABAPENTIN 300 MG CAP PO SCH ×3 (08:53→22:03)
[2020-09-09] MEDS: ENOXAPARIN 40 MG/0.4 ML SQ SCH (08:55)
[2020-09-09] MEDS: MEDIHONEY 44 ML TOPICAL TUBE TOP SCH (08:56)
[2020-09-09] MEDS: FUROSEMIDE 40 MG TABLET PO SCH ×2 (08:56→13:16)
[2020-09-09 09:16] LABS: Potassium 3.4 mmol/L (3.5-5.1)
[2020-09-09] MEDS ORDERED: POTASSIUM CL SA 10 MEQ TAB PO ONE ×2 (09:22→21:00)
[2020-09-09] MEDS: METOPROLOL TAR 25 MG TAB PO SCH ×2 (11:02→22:03)
[2020-09-09] MEDS ORDERED: Levofloxacin500mg IV 500 MG/100 ML BAG IV SCH (15:00)
[2020-09-09] MEDS: FLUCONAZOLE 200mg IVPB 200 MG/100 ML BAG IV SCH (15:04)
[2020-09-09] MEDS ORDERED: NA CHLORIDE 0.9% 250 ML ONE (15:15)
[2020-09-09] MEDS: ATORVASTATIN 10 MG TAB PO SCH (22:03)
[2020-09-09] MEDS: DIPHENHYDRAMINE 25 MG TAB/CAP PO SCH (22:03)
[2020-09-10] MEDS: CLINDAMYCIN INJ 600 MG in NA CHLORIDE 0.9% 50 ML IV SCH ×2 (00:08→08:44)
[2020-09-10 04:28] LABS: Magnesium 2.1 mg/dL (1.8-2.4); Phosphorus 3.8 mg/dL (2.5-4.9); Potassium 3.6 mmol/L (3.5-5.1)
[2020-09-10] MEDS ORDERED: POTASSIUM CL SA 10 MEQ TAB PO ONE (04:39)
[2020-09-10] MEDS: FUROSEMIDE 40 MG TABLET PO SCH ×2 (08:43→13:06)
[2020-09-10] MEDS: GABAPENTIN 300 MG CAP PO SCH ×3 (08:43→19:47)
[2020-09-10] MEDS: ENOXAPARIN 40 MG/0.4 ML SQ SCH (08:43)
[2020-09-10] MEDS: METOPROLOL TAR 25 MG TAB PO SCH ×2 (08:43→19:47)
[2020-09-10] MEDS: MEDIHONEY 44 ML TOPICAL TUBE TOP SCH (08:44)
[2020-09-10] MEDS ORDERED: DOCUSATE NA/SENNA CONC 1 TAB PO PRN (09:00)
[2020-09-10 10:05] LABS: Urine Appearance CLOUDY (Clear); Urine Bilirubin NEGATIVE (Negative); Urine Blood 3+ (Negative); Urine Color YELLOW (Yellow); Urine Glucose NEGATIVE (Negative); Urine Protein NEGATIVE (Negative); Urine pH 7.5 (5.0-7.0)
[2020-09-10 10:39] LABS: Urine Bacteria 20-50 /HPF (<20); Urine RBC 20-50 /HPF (NONE SEEN); Urine Urothelial Cells <5 /HPF (NONE SEEN)
[2020-09-10] MEDS: Meropenem 500 MG/100 ML BAG IV SCH ×2 (12:43→19:47)
[2020-09-10] MEDS: FLUCONAZOLE 100 MG TAB PO SCH (12:46)
[2020-09-10] MEDS: DIPHENHYDRAMINE 25 MG TAB/CAP PO SCH (19:46)
[2020-09-10] MEDS: ATORVASTATIN 10 MG TAB PO SCH (19:46)
[2020-09-10 20:47] VITALS: O2SAT 93
--- NOTE | 2020-09-11 00:17 | P.PN ---
Date of Service: 09/09/20 Subjective Patient weight is 299 lb. Patient has lost quite a bit a weight. Fluid output has been over 30 L. Patient's urine culture revealed Proteus mirabilis. But only 10- 100,000cfu. Patient does not want a PICC line at this time. Will treat her with marrow and Levaquin. Discharge her on Levaquin as it is intermediate. Patient is a suprapubic catheter and most likely has colonization. Patient does not want the PICC line with IV antibiotics and is willing to try the Levaquin as there is intermediate sensitivity to this. Will prescribe her the Levaquin for an additional 7-10 more days after discharge. Review of Systems 10-point ROS is otherwise unremarkable Physical Examination - Vital Signs Reviewed - Physical Exam General: Alert, Oriented x3, Obese Respiratory: Diminished, Crackles/rales Cardiovascular: Regular rate/rhythm, Normal S1 S2, Systolic murmur Gastrointestinal: Soft and benign, Non-distended, No tenderness Musculoskeletal: Swelling, Erythema, Tenderness Integumentary: Tenderness/swelling, Erythema, Warmth Neurological: Normal tone, Cranial nerves 3-12 intact, Abnormal gait, Abnormal strength Lymphatics: Other (Bilateral lower extremity lymphedema) Assessment & Plan - Problems (Diagnosis) (1) Debility Current Visit: Yes Status: Acute (2) Cellulitis of both lower extremities Onset Date: 08/21/15 Current Visit: No Status: Acute (3) Venous stasis ulcer of left thigh Current Visit: No Status: Acute (4) COPD (chronic obstructive pulmonary disease) Current Visit: No Status: Chronic Qualifiers: COPD type: unspecified COPD Qualified Code(s): J44.9 - Chronic obstructive pulmonary disease, unspecified (5) Fibromyalgia Onset Date: 05/26/14 Current Visit: No Status: Chronic (6) Lymphedema of both lower extremities Onset Date: 12/12/16 Current Visit: No Status: Chronic (7) Morbid obesity Current Visit: No Status: Chronic (8) Peripheral neuropathy Onset Date: 08/21/15 Current Visit: No Status: Chronic Qualifiers: - Plan Continue with plan of care as mentioned below: 1. Continue with IV antibiotic; continue with meropenem at this time. Discharge on Levaquin per patient's request. Antibiotic should be effective and the UA was not really that impressive. Patient has a suprapubic catheter with colonization most probable. Patient also only had tended 100,000 colony-forming units. Will go ahead and give antibiotics and Levaquin should be effective. Outpatient follow with repeat UA with micro and 2 weeks 2. Continue with local wound care 3. Wound care consultation appreciated; arrange for outpatient follow-up 4. Discontinue albumin-Lasix drip 5. Monitor labs 6. Strict blood sugar monitoring 7. Pain control 8. [facility] facility placement evaluation was denied by patient 9. GI and DVT prophylaxis
--- NOTE | 2020-09-11 00:19 | P.PN ---
Date of Service: 09/10/20 Subjective Patient is doing well with no new complaints. She is having pain diffusely which she states is related to her fibromyalgia. She wants to continue the antibiotics today and states she will be rated go home in the morning. She does not want to go to a [facility] facility. She wants to go home with oral Levaquin and follow with her PCP in 1-2 weeks. 09/09 -Patient weight is 299 lb. Patient has lost quite a bit a weight. Fluid output has been over 30 L. Patient's urine culture revealed Proteus mirabilis. But only 10- 100,000cfu. Patient does not want a PICC line at this time. Will treat her with marrow and Levaquin. Discharge her on Levaquin as it is intermediate. Patient is a suprapubic catheter and most likely has colonization. Patient does not want the PICC line with IV antibiotics and is willing to try the Levaquin as there is intermediate sensitivity to this. Will prescribe her the Levaquin for an additional 7-10 more days after discharge. Review of Systems 10-point ROS is otherwise unremarkable Physical Examination - Vital Signs Reviewed - Physical Exam General: Alert, Oriented x3, Obese Respiratory: Clear bilaterally Cardiovascular: Regular rate/rhythm, Normal S1 S2, Systolic murmur Gastrointestinal: Soft and benign, Non-distended, No tenderness Musculoskeletal: Minimal erythema and edema improved Integumentary: Minimal erythema and edema has improved Neurological: Normal tone, Cranial nerves 3-12 intact, Abnormal gait, Abnormal strength Lymphatics: Other (Bilateral lower extremity lymphedema with significant improvement) Assessment & Plan - Problems (Diagnosis) (1) Debility Current Visit: Yes Status: Acute (2) Cellulitis of both lower extremities Onset Date: 08/21/15 Current Visit: No Status: Acute (3) Venous stasis ulcer of left thigh Current Visit: No Status: Acute (4) COPD (chronic obstructive pulmonary disease) Current Visit: No Status: Chronic Qualifiers: COPD type: unspecified COPD Qualified Code(s): J44.9 - Chronic obstructive pulmonary disease, unspecified (5) Fibromyalgia Onset Date: 05/26/14 Current Visit: No Status: Chronic (6) Lymphedema of both lower extremities Onset Date: 12/12/16 Current Visit: No Status: Chronic (7) Morbid obesity Current Visit: No Status: Chronic (8) Peripheral neuropathy Onset Date: 08/21/15 Current Visit: No Status: Chronic Qualifiers: - Plan Continue with plan of care as mentioned below: 1. Continue with IV antibiotic; continue with meropenem at this time. Discharge on Levaquin per patient's request. Antibiotic should be effective and the UA was not really that impressive. Patient has a suprapubic catheter with colonization most probable. Patient also only had tended 100,000 colony-forming units. Will go ahead and give antibiotics and Levaquin should be effective. Outpatient follow with repeat UA with micro and 2 weeks 2. Continue with local wound care 3. Wound care consultation appreciated; arrange for outpatient follow-up 4. Discontinue albumin-Lasix drip 5. Monitor labs 6. Strict blood sugar monitoring 7. Pain control 8. group home facility placement evaluation was denied by patient 9. GI and DVT prophylaxis
[2020-09-11 00:39] VITALS: BMI 51.0
[2020-09-11] MEDS: Meropenem 500 MG/100 ML BAG IV SCH ×2 (03:28→12:00)
[2020-09-11 04:01] LABS: Absolute Lymphocytes (CBC) 0.5 K/uL (0.7-4.9); Basophils % 0.6 % (0-1.3); Hematocrit 42.7 % (36.0-45.0); MPV 8.9 fL (7.6-11.3); RBC Red Blood Cell Count 4.78 M/uL (3.86-4.86)
[2020-09-11 04:17] LABS: Potassium 3.8 mmol/L (3.5-5.1)
[2020-09-11] MEDS ORDERED: POTASSIUM CL SA 10 MEQ TAB PO ONE (04:39)
--- NOTE | 2020-09-11 06:21 | P.DS ---
Admission Date: 09/05/20 Discharge Date: 09/11/20 Primary Care Provider: Dr. Gutierrez Disposition: DC HOME/HOME HEALTH CARE Discharge Condition: GOOD Reason for Admission: cellulitis Consultations: none Procedures: COVID: Negative Venous Doppler: FINDINGS: Examination is limited secondary to body habitus. The common femoral, superficial femoral, popliteal and posterior tibial veins bilaterally are compressible and demonstrate augmentation. Doppler demonstrates good flow. IMPRESSION: No gross evidence evidence of deep venous thrombosis involving either lower extremity. CXR: COMPARISON: 2020 FINDINGS: Upper lobe vessels are prominent indicative of pulmonary venous hyper tension. Heart is mildly enlarged. Lungs appear clear of acute infiltrate Medical Problem List: Bilateral lower extremity cellulitis with history of chronic lymphedema UTI, urine culture positive for Proteus with history of suprapubic catheter Fibromyalgia with neuropathy Hypertension Hyperlipidemia Morbid obesity, BMI greater than 50 Brief History of Present Illness: 65-year-old female with history of chronic lymphedema, fibromyalgia, COPD presenting with increasing leg pain and fever over the last 1-1/2 weeks. Patient was evaluated emergency room. Cellulitis noted. Patient admitted for further evaluation and treatment. Patient has been followed at the wound care center. Hospital Course: Patient presented with bilateral lower extremity cellulitis with chronic lymphedema. Patient was treated with IV antibiotic therapy. Patient is seen by the wound care center. Wound care team evaluated patient and made recommendations. Patient was given IV diuresis with improvement. Patient overall stable. Patient does not want to go to a skilled facility. Patient would prefer to go home with home health and physical therapy arranged. At discharge patient will continue with wound care recommendations including cleaning bilateral lower extremities with chlorhexidine. Apply Medihoney after. ABD pad with 4 inch conforming rolling gauze to be placed. Recommend to keep legs elevated. Patient should follow-up with the wound care center this week to follow-up her care. Prior to discharge home health and physical therapy arranged to continue with current wound care. At discharge patient will also continue with Lasix 40 mg 1 pill twice daily. Recommend to maintain 1500 cc/day fluid restriction and low-salt diet. Recommend follow-up with PCP in 1 week to follow-up his hospitalization. Patient also found to have a UTI. Urine culture positive for Proteus. Patient with history of suprapubic catheter. This is likely colonization. Patient asymptomatic. Patient did not desire IV antibiotic therapy or PICC line. Therefore will treat with Levaquin 500 mg daily for 7 days. Recommend to recheck urine culture after treatment to monitor resolution. UTI prevention provided. Patient with history of urinary incontinence. Patient will continue with Ditropan as needed. Patient with fibromyalgia. At discharge she will continue with her medications including gabapentin 300 mg 3 times a day. Patient will continue with her chronic pain medication. Recommend follow-up with pain management to further address. Patient with hyperlipidemia. At discharge patient will continue with lovastatin 20 mg daily. Patient with hypertension. At discharge we will continue with metoprolol 25 mg 1 pill twice daily. Recommend to maintain blood pressure less than 130/80. Further adjustment can be done by her PCP. Patient will continue with her other medications including stool softener daily and Benadryl 25 mg at bedtime as needed. Fall precautions in place. Vital Signs/Physical Exam: Temp Pulse Resp BP Pulse Ox 98.9 F 73 16 123/76 96 09/11/20 04:00 09/11/20 04:00 09/11/20 04:00 09/11/20 04:00 09/11/20 04:00 General: Alert, In no apparent distress, Oriented x3, Cooperative HEENT: Atraumatic Neck: Supple Respiratory: Clear to auscultation bilaterally, Normal air movement Cardiovascular: Normal pulses, Regular rate/rhythm Gastrointestinal: Normal bowel sounds, No tenderness, No masses, No rebound, No guarding Integumentary: Other (Dressings in place to the lower extremities bilateral.) Neurological: Normal speech, Normal strength at 5/5 x4 extr, Normal tone, Abnormal affect (Increase anxiety.) Laboratory Data at Discharge: WBC 9.50 K/uL (4.3-10.9) 09/11/20 03:41 Hgb 14.1 g/dL (12.0-15.0) 09/11/20 03:41 Hct 42.7 % (36.0-45.0) 09/11/20 03:41 Plt Count 284 K/uL (152-406) 09/11/20 03:41 Sodium 139 mmol/L (136-145) 09/11/20 03:41 Potassium 3.8 mmol/L (3.5-5.1) 09/11/20 03:41 BUN 14 mg/dL (7-18) 09/11/20 03:41 Creatinine 0.95 mg/dL (0.55-1.3) 09/11/20 03:41 Glucose 129 mg/dL (74-106) H 09/11/20 03:41 Phosphorus 3.8 mg/dL (2.5-4.9) 09/10/20 03:44 Magnesium 2.1 mg/dL (1.8-2.4) 09/10/20 03:44 Total Bilirubin 0.3 mg/dL (0.2-1.0) 09/06/20 03:13 AST 10 U/L (15-37) L 09/06/20 03:13 ALT 12 U/L (12-78) 09/06/20 03:13 Alkaline Phosphatase 58 U/L (45-117) 09/06/20 03:13 Triglycerides 163 mg/dL (<150) H 09/06/20 03:13 Cholesterol 134 mg/dL (<200) 09/06/20 03:13 HDL Cholesterol 35 mg/dL (40-60) L 09/06/20 03:13 Cholesterol/HDL Ratio 3.83 09/06/20 03:13 Home Medications: Furosemide [Lasix*] 1 tab PO BID 12/15/17 Gabapentin [Neurontin*] 300 mg PO TID 12/15/17 Lovastatin 1 tab PO BEDTIME 12/15/17 Oxybutynin Chloride [Ditropan*] 5 mg PO PRN 07/04/18 Diphenhydramine [Benadryl*] 1 tab PO BEDTIME 09/16/19 Metoprolol Tartrate [Lopressor*] 1 tab PO BID 09/16/19 Sennosides/Docusate Sodium [Stool Softener-Stim Lax Tablet] 1 tab PO PRN 09/16/19 Medihoney [Medihoney Woundcare Gel*] 1 appl TOP DAILY #1 tube 09/11/20 levoFLOXacin [Levaquin] 500 mg PO DAILY #7 tab 09/11/20 New Medications: levoFLOXacin [Levaquin] 500 mg PO DAILY #7 tab Medihoney [Medihoney Woundcare Gel*] 1 appl TOP DAILY #1 tube Physician Discharge Instructions: Patient presented with bilateral lower extremity cellulitis with chronic lymphedema. Patient was treated with IV antibiotic therapy. Patient is seen by the wound care center. Wound care team evaluated patient and made recommendations. Patient was given IV diuresis with improvement. Patient overall stable. Patient does not want to go to a skilled facility. Patient would prefer to go home with home health and physical therapy arranged. At discharge patient will continue with wound care recommendations including cleaning bilateral lower extremities with chlorhexidine. Apply Medihoney after. ABD pad with 4 inch conforming rolling gauze to be placed. Recommend to keep legs elevated. Patient should follow-up with the wound care center this week to follow-up her care. Prior to discharge home health and physical therapy arranged to continue with current wound care. At discharge patient will also continue with Lasix 40 mg 1 pill twice daily. Recommend to maintain 1500 cc/day fluid restriction and low-salt diet. Recommend follow-up with PCP in 1 week to follow-up his hospitalization. Patient also found to have a UTI. Urine culture positive for Proteus. Patient with history of suprapubic catheter. This is likely colonization. Patient asymptomatic. Patient did not desire IV antibiotic therapy or PICC line. Therefore will treat with Levaquin 500 mg daily for 7 days. Recommend to recheck urine culture after treatment to monitor resolution. UTI prevention provided. Patient with history of urinary incontinence. Patient will continue with Ditropan as needed. Patient with fibromyalgia. At discharge she will continue with her medications including gabapentin 300 mg 3 times a day. Patient will continue with her chronic pain medication. Recommend follow-up with pain management to further address. Patient with hyperlipidemia. At discharge patient will continue with lovastatin 20 mg daily. Patient with hypertension. At discharge we will continue with metoprolol 25 mg 1 pill twice daily. Recommend to maintain blood pressure less than 130/80. Further adjustment can be done by her PCP. Patient will continue with her other medications including stool softener daily and Benadryl 25 mg at bedtime as needed. Fall precautions in place. Diet: AHA Activity: Fall precautions Followup: NONE,NONE [Primary Care Provider] - Time spent managing pt's care (in minutes): 55
[2020-09-11] MEDS: GABAPENTIN 300 MG CAP PO SCH ×2 (08:05→14:15)
[2020-09-11] MEDS: METOPROLOL TAR 25 MG TAB PO SCH (08:05)
[2020-09-11] MEDS: FUROSEMIDE 40 MG TABLET PO SCH ×2 (08:06→14:15)
[2020-09-11] MEDS: ENOXAPARIN 40 MG/0.4 ML SQ SCH (08:06)
[2020-09-11] MEDS: MEDIHONEY 44 ML TOPICAL TUBE TOP SCH (09:00)
[2020-09-11] MEDS ORDERED: FLUCONAZOLE 100 MG TAB PO SCH (09:00)
[2020-09-11] MEDS: FLUCONAZOLE 100 MG TAB PO SCH (09:42)
[2020-09-11 12:57] VITALS: TEMP 97.2
[2020-09-11 14:16] VITALS: BP 110/63
== END 2020-09-11 18:24 | disposition home health service (06) | DRG 603 ==
LOC: ER 18:54 → ERHOLD 22:50 → OBSVTOIN 22:50 → 4TH 09-06 01:55
PROVIDERS: ADMIT Hospitalist; ATTEND Hospitalist
DX: L03.116 Cellulitis of left lower limb (principal); N39.0 Urinary tract infection, site not specified; Z68.43 Body mass index [BMI] 50.0-59.9, adult; L97.129 Non-pressure chronic ulcer of left thigh with unspecified severity; L03.115 Cellulitis of right lower limb; B96.4 Proteus (mirabilis) (morganii) as the cause of diseases classified elsewhere; I89.0 Lymphedema, not elsewhere classified; M79.7 Fibromyalgia; G62.9 Polyneuropathy, unspecified; I10 Essential (primary) hypertension; E78.5 Hyperlipidemia, unspecified; E66.01 Morbid (severe) obesity due to excess calories; J44.9 Chronic obstructive pulmonary disease, unspecified; I83.021 Varicose veins of left lower extremity with ulcer of thigh; Z96.0 Presence of urogenital implants; Z20.822 Contact with and (suspected) exposure to COVID-19
CPT/HCPCS: 36415; 71045; 80048; 80053; 80061; 81001; 81003; 81015; 82533; 82607; 82746; 83540; 83605; 83735; 83880; 84100; 84132; 84145; 84439; 84443; 85025; 87040; 87077; 87086; 87088; 87186; 93970; 94760; 96365; 96367; 96375; 97110; 97112; 97116; 97161; 97530; 99285; J1170; J1450; J1650; J1940; J2185; J2270; J2405; J3420; J3480; J7050; P9047; U0003

== ENCOUNTER 2021-01-14 01:37 | Inpatient (IN) | payer OTHER ==
[2021-01-14 02:00] LABS: Absolute Lymphocytes (CBC) 1.2 K/uL (0.7-4.9); Basophils % 0.5 % (0-1.3); Hematocrit 40.8 % (36.0-45.0); Lymphocytes % 11.2 % (15.3-44.8); MPV 8.7 fL (7.6-11.3); RBC Red Blood Cell Count 4.58 M/uL (3.86-4.86)
[2021-01-14] MEDS ORDERED: FENTANYL CITR 100 MCG/2 ML ONE (02:00)
[2021-01-14 02:03] LABS: Protime INR 1.12
[2021-01-14] MEDS ORDERED: MORPHINE 4 MG/ML SYR ONE (02:07)
[2021-01-14 02:28] LABS: ALT/SGPT 13 U/L (12-78); AST/SGOT 6 U/L (15-37); Albumin 2.3 g/dL (3.4-5.0); Alkaline Phosphatase 68 U/L (45-117); BUN Blood Urea Nitrogen 20 mg/dL (7-18); Bicarbonate 32 mmol/L (21-32); Bilirubin Direct 0.1 mg/dL (0-0.2); Bilirubin Total 0.4 mg/dL (0.2-1.0); Glucose Level 124 mg/dL (74-106); Magnesium 1.8 mg/dL (1.8-2.4); NT PRO-BNP 403 pg/mL (<125); Protein, Total 7.2 g/dL (6.4-8.2); Sodium Level 139 mmol/L (136-145); Troponin (Emerg Dept Use Only) < 0.02 ng/mL (0.0-0.045)
[2021-01-14 02:31] LABS: Potassium 2.5 mmol/L (3.5-5.1)
[2021-01-14 02:52] LABS: SARS-COV-2 RT PCR NEGATIVE (NEGATIVE)
[2021-01-14] MEDS ORDERED: KCL 20 MEQ/100 mL IVPB 20 MEQ/100 ML BAG IV ONE ×2 (03:05→21:33)
[2021-01-14] MEDS ORDERED: POTASSIUM 25 MEQ EFFERV TAB ONE (03:05)
[2021-01-14] MEDS ORDERED: NA CHLORIDE 0.9% 500 ML ONE (03:20)
[2021-01-14 03:37] LABS: Urine Amorphous Sediment 2+ /HPF (NONE SEEN); Urine Bacteria LOADED /HPF (<20); Urine Mucus 2+ /HPF (NONE SEEN)
--- NOTE | 2021-01-14 03:57 | EDPHYS ---
Physician Documentation [facility] Name: Jv Bryant Age: 65 yrs Sex: Female : 1955 Arrival Date: 01/14/2021 Time: 01:38 Bed 8 Private MD: ED Physician Reid Chavira HPI: 01/14 01:50 This 65 yrs old Female presents to ER via EMS with complaints of Bloody cp Stools. 01:50 The patient presents with abdominal pain in the left lower quadrant. cp 01:50 Onset: The symptoms/episode began/occurred yesterday. The symptoms do not radiate. cp Associated signs and symptoms: Pertinent positives: blood in stools, diarrhea, bright red appearing, Pertinent negatives: fever. Historical: - Allergies: 02:15 aloe vera; tw5 02:15 Augmentin; tw5 02:15 Bactrim; tw5 02:15 Betadine; tw5 02:15 Celery (Apium Graveolens) (Umbelliferae); tw5 02:15 Demerol; tw5 02:15 Fentanyl; tw5 02:15 FLU VACCINE; tw5 02:15 Iodine; tw5 02:15 Lincocin; tw5 02:15 MACROLIDES; tw5 02:15 mycin; tw5 02:15 peppers; tw5 02:15 Pneumovax 23; tw5 02:15 Rocephin; tw5 02:15 Stelazine; tw5 02:15 Sulfa (Sulfonamide Antibiotics); tw5 02:15 Vancomycin; tw5 - Home Meds: 02:15 gabapentin 100 mg Oral cap 3 caps nightly for Neuropathic Pain [Active]; furosemide 40 tw5 mg Oral tab 1 tab 2 times per day [Active]; lovastatin 20 mg Oral tab once daily [Active]; metoprolol tartrate 25 mg Oral tab 1 tab 2 times per day [Active]; - PMHx: 02:15 ADD/ADHD; Arthritis; Chronic pain; COPD; Fibromyalgia; frequent UTI'S; heart disease- tw5 unspecified; Hyperlipidemia; Hypertension; insomnia; lymphedema; PERIPHERAL NEUROPATHY; unspecified kidney failure; - Immunization history:: Client reports having NOT received the Covid vaccine. Pneumococcal vaccine is not up to date, Flu vaccine is not up to date. - Social history:: Smoking status: Patient reports the use of cigarette tobacco products, denies chronic smoking, but will smoke occasionally. ROS: 01:50 Eyes: Negative for injury, pain, redness, and discharge. cp 01:50 Constitutional: Negative for body aches, chills, fever, poor PO intake. 01:50 Cardiovascular: Negative for chest pain, palpitations. 01:50 Respiratory: Negative for cough, shortness of breath, wheezing. 01:50 Abdomen/GI: Positive for abdominal pain, diarrhea, rectal bleeding, of the left lower quadrant, Negative for vomiting, constipation. 01:50 Neuro: Negative for weakness. 01:50 All other systems are negative. Exam: 01:55 Constitutional: The patient appears in no acute distress, alert, awake, cp non-diaphoretic, non-toxic, well developed, well nourished, obese. 01:55 Head/Face: Normocephalic, atraumatic. cp 01:55 Eyes: Periorbital structures: appear normal, Conjunctiva: normal, no exudate, no injection, Sclera: no appreciated abnormality, Lids and lashes: appear normal, bilaterally. 01:55 ENT: External ear(s): are unremarkable, Nose: is normal, Mouth: Lips: moist, Oral mucosa: moist, Posterior pharynx: Airway: no evidence of obstruction, patent. 01:55 Neck: ROM/movement: is normal, is supple, without pain, no range of motions limitations. 01:55 Chest/axilla: Inspection: normal. 01:55 Cardiovascular: Rate: normal, Rhythm: regular, JVD: is not appreciated. 01:55 Respiratory: the patient does not display signs of respiratory distress, Respirations: normal, no use of accessory muscles, no retractions, labored breathing, is not present, Breath sounds: are clear throughout, no stridor, no wheezing. 01:55 Abdomen/GI: Inspection: obese Bowel sounds: active, all quadrants, Palpation: soft, in all quadrants, mild abdominal tenderness, in the left lower quadrant, rebound tenderness, is not appreciated, involuntary guarding, is not appreciated, Rectal exam: hemorrhoid(s), external, with pain. 01:55 Skin: cellulitis, that is moderate, on the buttocks, multiple superficial wounds. 01:55 Neuro: Orientation: to person, place \T\ time. Mentation: is normal. 02:53 ECG was reviewed by the Attending Physician. Vital Signs: 01:40 BP 112 / 91; Pulse 91; Resp 16; Temp 99(O); Pulse Ox 97% on R/A; Weight 147.42 kg; tw5 Height 5 ft. 4 in. (162.56 cm); Pain 10/10; 01:46 BP 112 / 91; Pulse 88; Resp 18; Temp 99; Pulse Ox 96% on R/A; Pain 7/10; tw5 02:55 BP 100 / 39; Pulse 73; Resp 18; Pulse Ox 94% on R/A; Pain 6/10; kc4 02:55 Pain 6/10; kc4 03:16 BP 107 / 58; Pulse 80; Resp 19; Pulse Ox 92% on R/A; tw5 04:20 BP 126 / 74; Pulse 80; Resp 18; Pulse Ox 97% on R/A; tw5 05:56 BP 129 / 70; Pulse 80; Resp 18; Pulse Ox 95% on R/A; tw5 06:23 BP 110 / 65; Pulse 81; Resp 18; Pulse Ox 93% on R/A; df1 01:40 Body Mass Index 55.79 (147.42 kg, 162.56 cm) tw5 MDM: 02:00 Differential diagnosis: gastritis, Ureterolithiasis, urinary tract infection, sepsis, cp anemia, colitis. 02:07 Patient medically screened. cp 04:00 Data reviewed: vital signs, nurses notes, lab test result(s), EKG, radiologic studies, cp CT scan, plain films. 04:00 Test interpretation: by ED physician or midlevel provider: ECG, plain radiologic cp studies. 01/14 01:44 Order name: Basic Metabolic Panel cp 01/14 01:44 Order name: CBC with Diff cp 01/14 01:44 Order name: LFT's cp 01/14 01:44 Order name: Magnesium; Complete Time: 02:38 cp 01/14 01:44 Order name: NT PRO-BNP; Complete Time: 02:38 cp 01/14 01:44 Order name: PT-INR; Complete Time: 02:30 01/14 02:31 Interpretation: PT 12.9; Reviewed. 01/14 01:44 Order name: Troponin (emerg Dept Use Only); Complete Time: 02:38 01/14 01:44 Order name: Ptt, Activated; Complete Time: 02:30 01/14 01:44 Order name: Basic Metabolic Panel; Complete Time: 02:38 EDMS 01/14 02:43 Interpretation: Normal except: K 2.5; GLUC 124; BUN 20; GFR 50. 01/14 01:44 Order name: CBC with Automated Diff; Complete Time: 02:30 EDMS 01/14 02:31 Interpretation: Normal except: RDW 15.9; SANTY% 77.3; LYM% 11.2. 01/14 01:45 Order name: Liver (Hepatic) Function; Complete Time: 02:38 EDMS 01/14 02:44 Interpretation: Normal except: AST 6; ALB 2.3; GLOB 4.9; A/G 0.5. 01/14 01:49 Order name: Type And Screen 01/14 01:50 Order name: Type and Screen; Complete Time: 02:43 EDMS 01/14 01:44 Order name: XRAY Chest (1 view) 01/14 02:05 Order name: COVID-19/FLU A+B/RSV; Complete Time: 03:42 EDMS 01/14 03:07 Order name: CREATININE WHOLE BLOOD; Complete Time: 03:42 EDMS 01/14 03:20 Order name: Procalcitonin 01/14 03:20 Order name: Lactate 01/14 03:20 Order name: Blood Culture Adult (2) 01/14 03:20 Order name: Urine Microscopic Only; Complete Time: 03:42 01/14 03:20 Order name: Urine Culture 01/14 03:20 Order name: Procalcitonin; Complete Time: 04:57 EDMS 01/14 03:20 Order name: Lactate; Complete Time: 04:57 EDMS 01/14 03:20 Order name: Blood Culture EDMS 01/14 03:49 Order name: CBC with Diff pkl 01/14 03:50 Order name: CBC with Automated Diff; Complete Time: 04:57 EDMS 01/14 04:47 Order name: ABO/RH no charge; Complete Time: 06:59 EDMS 01/14 01:44 Order name: EKG; Complete Time: 01:45 01/14 01:44 Order name: Cardiac monitoring; Complete Time: 01:58 01/14 01:44 Order name: EKG - Nurse/Tech; Complete Time: 02:55 cp 01/14 01:44 Order name: IV Saline Lock; Complete Time: 01:57 cp 01/14 01:44 Order name: Labs collected and sent; Complete Time: 01:57 cp 01/14 01:44 Order name: O2 Per Protocol; Complete Time: 01:57 cp 01/14 01:44 Order name: O2 Sat Monitoring; Complete Time: 01:57 cp 01/14 02:56 Order name: Abdomen EDMS 01/14 07:32 Order name: CONS Physician Consult EDMS 01/14 07:32 Order name: Full Liquid EDMS 01/14 07:32 Order name: CONS [facility] Cons EDMS EC:53 Rate is 74 beats/min. Rhythm is regular. SD interval is normal. QRS interval is normal. cp QT interval is normal. T waves are Inverted in lead aVR. Interpreted by me. Reviewed by me. Administered Medications: 02:06 Not Given (patient allergic to medicationn): fentaNYL (PF) 25 mcg IVP once; RASS on tw5 ADMIN: Combtv4, Very Agttd3, Agttd2, Rstlss1, AlertClm0, Drwsy-1, Lt Sdtn-2, Mod Sdtn-3, Dp Sdtn-4, UnArsble-5 02:08 Drug: morphine 4 mg Route: IVP; Site: right antecubital; tw5 02:55 Follow up: Pain 6/10 Adult; Response: No adverse reaction; Pain is decreased; RASS: kc4 Alert and Calm (0) 03:14 Drug: Potassium Effervescent Tablet 50 mEq Route: PO; tw5 04:15 Follow up: Response: No adverse reaction tw5 03:17 Drug: Potassium Chloride 20 mEq Route: IV; Rate: calculated rate; Site: right tw5 antecubital; 05:57 Follow up: Response: No adverse reaction; IV Status: Completed infusion tw5 04:02 CANCELLED (Duplicate Order): NS 0.9% 500 ml IV at bolus once 04:02 CANCELLED (Duplicate Order): NS 0.9% 1000 ml IV at 125 ml/hr continuous tw5 04:14 Drug: NS 0.9% 1000 ml Route: IV; Rate: 125 ml/hr; Site: right antecubital; tw5 09:27 Follow up: Response: No adverse reaction; IV Status: Infusion continued upon admission jd3 04:15 Drug: NS 0.9% 500 ml Route: IV; Rate: bolus; Site: left antecubital; tw5 04:16 Drug: LevaQUIN (levofloxacin) 750 mg Volume: 150 ml; Route: IVPB; Infused Over: 90 tw5 mins; Site: left antecubital; 06:26 Follow up: IV Status: Completed infusion; IV Intake: 150ml df1 Disposition: 05:02 Talked to Uriel ( PA Hospitalist ) Patient need to be transferred to [facility]. Will pkl talk to patient. Disposition Summary: 01/14/21 07:04 Hospitalization Ordered Hospitalization Status: Inpatient Admission pkl Provider: Helena Lamb pkl Location: Telemetry/MedSur (Inpatient) pkl Condition: Stable(01/14/21 07:04) pkl Problem: new(01/14/21 07:04) pkl Symptoms: have improved(01/14/21 07:04) pkl Bed/Room Type: Standard pkl Room Assignment: 222(01/14/21 08:49) dw Diagnosis - Rectal bleeding. Bloody diarrhea. Urinary tract infection pkl Forms: - Medication Reconciliation Form pkl - SBAR form pkl Signatures: Dispatcher [employer] Nelia Rodríguez RN RN dw Lam, Pin, MD MD pkl Pascual Merino PA PA cp Botello, Elizabeth eb Wood, Tiffany tw5 Oscar Carrillo RN jd3 Abril Cunha kc4 Mia Benjamin df1 Corrections: (The following items were deleted from the chart) 02:05 01:48 SARS-COV-2 RT PCR+MOL.LAB.BRZ ordered. EDMN EDMS 02:18 02:15 Home Meds: aspirin 81 mg Oral chew 1 tab once daily; tw tw 02:56 01:50 Abdomen Pelvis W Con+CT.RAD.BRZ ordered. EDMN EDMS 04:02 03:55 NS 0.9% 500 ml IV at bolus once ordered. cp tw5 04:02 03:55 NS 0.9% 1000 ml IV at 125 ml/hr continuous ordered. cp tw5 04:14 03:56 Hematocrit+H.LAB.BRZ ordered. EDMS EDMS 04:14 03:56 Hemoglobin+H.LAB.BRZ ordered. EDMS EDMS 04:55 03:57 Doctor cp pkl 04:55 03:57 Cellulitis of buttock cp pkl 04:56 04:55 Doctor pkl pkl 04:56 04:55 Cellulitis of buttock - Hypotesion. Hypokalemia pkl pkl 04:57 04:56 Doctor pkl pkl 07:00 03:57 [facility] cp pkl 07:00 04:53 Co-signature as Attending Physician, Reid Chavira MD pkl pkl 07:01 03:57 Higher level of care cp pkl 07:01 03:57 Stable cp pkl 07:01 03:57 new cp pkl 07:01 03:57 have improved cp pkl 07:01 03:57 GI Bleed/ Gastrointestinal hemorrhage, unspecified cp pkl 07:01 04:56 Cellulitis of buttock - Hypotension. Hypokalemia. UTI pkl pkl 07:01 04:57 Doctor Gonzalez pkl pkl 08:26 07:04 pkl eb 08:49 08:26 214 eb dw
--- NOTE | 2021-01-14 03:57 | ER ---
Nurse's Notes [facility] Name: Jv Ortiz Short Age: 65 yrs Sex: Female : 1955 Arrival Date: 01/14/2021 Time: 01:38 Bed 8 Private MD: Diagnosis: Rectal bleeding. Bloody diarrhea. Urinary tract infection Presentation: 01/14 01:40 Chief complaint: EMS states: " She stated that she was having bloody stools, and tw5 diarrhea. It was bright red blood.". Onset of symptoms was January 13, 2021. 01:40 Method Of Arrival: EMS: [facility] tw 01:40 Acuity: SKYLER 3 tw5 01:46 Coronavirus screen: Vaccine status: Patient reports being unvaccinated. " I dont want tw5 it.". Ebola Screen: Patient negative for fever greater than or equal to 101.5 degrees Fahrenheit, and additional compatible Ebola Virus Disease symptoms Patient denies exposure to infectious person. Patient denies travel to an Ebola-affected area in the 21 days before illness onset. Initial Sepsis Screen: Does the patient meet any 2 criteria? No. Patient's initial sepsis screen is negative. Does the patient have a suspected source of infection? Yes: Skin breakdown/wound. Risk Assessment: Do you want to hurt yourself or someone else? Patient reports no desire to harm self or others. Triage Assessment: 01:46 General: Appears uncomfortable, obese, unkempt, Behavior is anxious. General: Reports " tw5 I hurt from kidney area down to the ends of my legs". Pain: Pain currently is 7 out of 10 on a pain scale. at worst was 10 out of 10 on a pain scale. GI: Reports diarrhea. : Pedroza in place Urine is cloudy. Historical: - Allergies: 02:15 aloe vera; tw 02:15 Augmentin; 02:15 Bactrim; 02:15 Betadine; 02:15 Celery (Apium Graveolens) (Umbelliferae); 02:15 Demerol; 5 02:15 Fentanyl; tw5 02:15 FLU VACCINE; tw 02:15 Iodine; tw 02:15 Lincocin; tw5 02:15 MACROLIDES; tw5 02:15 mycin; tw 02:15 peppers; tw 02:15 Pneumovax 23; tw 02:15 Rocephin; 02:15 Stelazine; 02:15 Sulfa (Sulfonamide Antibiotics); 02:15 Vancomycin; tw5 - Home Meds: 02:15 gabapentin 100 mg Oral cap 3 caps nightly for Neuropathic Pain [Active]; furosemide 40 tw5 mg Oral tab 1 tab 2 times per day [Active]; lovastatin 20 mg Oral tab once daily [Active]; metoprolol tartrate 25 mg Oral tab 1 tab 2 times per day [Active]; - PMHx: 02:15 ADD/ADHD; Arthritis; Chronic pain; COPD; Fibromyalgia; frequent UTI'S; heart disease- tw unspecified; Hyperlipidemia; Hypertension; insomnia; lymphedema; PERIPHERAL NEUROPATHY; unspecified kidney failure; - Immunization history:: Client reports having NOT received the Covid vaccine. Pneumococcal vaccine is not up to date, Flu vaccine is not up to date. - Social history:: Smoking status: Patient reports the use of cigarette tobacco products, denies chronic smoking, but will smoke occasionally. Screenin:44 Abuse screen: Denies threats or abuse. Denies injuries from another. Nutritional tw5 screening: No deficits noted. Tuberculosis screening: No symptoms or risk factors identified. Fall Risk No fall in past 12 months (0 pts). Secondary diagnosis (15 points) Ambulatory Aid- Crutches/Cane/Walker (15 pts). Gait- Impaired (20 pts.). Mental Status- Oriented to own ability (0 pts). Assessment: 01:53 General: Reports " I stay in pain." Patient states that she had been wearing briefs and tw5 her home health nurse helped her with the brief that was full of bloody stool. She stated that here was bloody stool all over the bathroom and her son had to help clean up the bathroom twice today. Neuro: Level of Consciousness is awake, alert, obeys commands. Cardiovascular: Edema is 4+ to left lower thigh, left knee, left midcalf, left ankle, left foot, left toes, right lower thigh, right knee, right midcalf, right ankle, right foot and right toes. : Pedroza in place to gravity drainage Urine is cloudy. EENT:. Derm: Skin with poor turgor has lesions on on her back sides. Stage 1 and 2. Jv states " I had been sitting in bloody stool for a day and a half because I was too modest to ask my son for help.". 01:58 Pain: Pain currently is 7 out of 10 on a pain scale. at worst was 10 out of 10 on a tw5 pain scale. 02:55 Pain: Pain currently is 6 out of 10 on a pain scale. kc4 05:57 General: Appears uncomfortable, obese, Behavior is agitated, anxious, crying. tw5 Vital Signs: 01:40 BP 112 / 91; Pulse 91; Resp 16; Temp 99(O); Pulse Ox 97% on R/A; Weight 147.42 kg; tw5 Height 5 ft. 4 in. (162.56 cm); Pain 10/10; 01:46 BP 112 / 91; Pulse 88; Resp 18; Temp 99; Pulse Ox 96% on R/A; Pain 7/10; tw5 02:55 BP 100 / 39; Pulse 73; Resp 18; Pulse Ox 94% on R/A; Pain 6/10; kc4 02:55 Pain 6/10; kc4 03:16 BP 107 / 58; Pulse 80; Resp 19; Pulse Ox 92% on R/A; tw5 04:20 BP 126 / 74; Pulse 80; Resp 18; Pulse Ox 97% on R/A; tw5 05:56 BP 129 / 70; Pulse 80; Resp 18; Pulse Ox 95% on R/A; tw5 06:23 BP 110 / 65; Pulse 81; Resp 18; Pulse Ox 93% on R/A; df1 01:40 Body Mass Index 55.79 (147.42 kg, 162.56 cm) tw5 ED Course: 01:38 Patient arrived in ED. tt3 01:40 Gi Cloud is Primary Nurse. tw5 01:40 Arm band placed on right wrist. Patient placed in an exam room, on a stretcher, on tw5 pulse oximetry. 01:41 Triage completed. tw5 01:43 Pascual Merino PA is PHCP. cp 01:43 Reid Chavira MD is Attending Physician. cp 01:44 Patient has correct armband on for positive identification. Placed in gown. Bed in low tw5 position. Call light in reach. Side rails up X2. placed in hospital bed. Pulse ox on. NIBP on. Door closed. Noise minimized. Lights dimmed. Moved to private room. Warm blanket given. Pillow given. Verbal reassurance given. 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 tw5 01:49 Initial lab(s) drawn, by ED staff, sent to lab. Urine collected: Pedroza catheter tw5 specimen, cloudy. Inserted saline lock: 20 gauge in right antecubital area, using aseptic technique. Blood collected. 01:53 COVID swab sent to lab. tw 01:57 Patient requests pain medication. tw 01:57 Troponin (emerg Dept Use Only) Sent. tw 01:57 PT-INR Sent. :57 NT PRO-BNP Sent. tw07 08:57 Magnesium Sent. tw 01:58 Ptt, Activated Sent. tw 01:58 Basic Metabolic Panel Sent. tw 01:58 CBC with Automated Diff Sent. tw 01:58 Liver (Hepatic) Function Sent. 01:58 Type And Screen Sent. tw 01:58 Type and Screen Sent. tw5 02:07 COVID-19/FLU A+B/RSV Sent. tw5 02:07 Type and Screen Sent. tw5 02:07 Basic Metabolic Panel Sent. tw5 02:07 CBC with Diff Sent. tw5 02:07 LFT's Sent. tw5 02:[address] via stretcher. tw5 02:13 XRAY Chest (1 view) In Process Unspecified. EDMS 02:[address] Patient moved back from CT. kc4 02:58 Abdomen In Process Unspecified. EDMS 03:[address] [facility] with Jazlyn Thurston. Stated she would work on the tt3 request and call back. 03:37 Procalcitonin Sent. df1 03:37 Urine Culture Sent. df1 04:02 Jazlyn Thurston called back with their physician to speak with Dr. Chavira regarding the tt3 transfer request. 04:14 CBC with Automated Diff Sent. tw5 04:14 CBC with Diff Sent. tw5 04:16 Inserted saline lock: 20 gauge in left antecubital area, using aseptic technique. df1 04:25 Jazlyn Thurston gave admin approval. The accepting physician is Dr. Roth. The pt is tt3 going to [address] [place] [address] Room 947. Nurse to call report to . Face sheet, MOT and covid results to be faxed to per Jazlyn's request. 07:02 Helena Lamb MD is Hospitalizing Provider. pkl 07:23 Primary Nurse role handed off by Gi Cloud 09:26 Patient admitted, IV remains in place. jd3 Administered Medications: 02:06 Not Given (patient allergic to medicationn): fentaNYL (PF) 25 mcg IVP once; RASS on tw5 ADMIN: Combtv4, Very Agttd3, Agttd2, Rstlss1, AlertClm0, Drwsy-1, Lt Sdtn-2, Mod Sdtn-3, Dp Sdtn-4, UnArsble-5 02:08 Drug: morphine 4 mg Route: IVP; Site: right antecubital; tw5 02:55 Follow up: Pain 6/10 Adult; Response: No adverse reaction; Pain is decreased; RASS: kc4 Alert and Calm (0) 03:14 Drug: Potassium Effervescent Tablet 50 mEq Route: PO; tw5 04:15 Follow up: Response: No adverse reaction tw5 03:17 Drug: Potassium Chloride 20 mEq Route: IV; Rate: calculated rate; Site: right tw5 antecubital; 05:57 Follow up: Response: No adverse reaction; IV Status: Completed infusion tw5 04:02 CANCELLED (Duplicate Order): NS 0.9% 500 ml IV at bolus once tw5 04:02 CANCELLED (Duplicate Order): NS 0.9% 1000 ml IV at 125 ml/hr continuous tw5 04:14 Drug: NS 0.9% 1000 ml Route: IV; Rate: 125 ml/hr; Site: right antecubital; tw5 09:27 Follow up: Response: No adverse reaction; IV Status: Infusion continued upon admission jd3 04:15 Drug: NS 0.9% 500 ml Route: IV; Rate: bolus; Site: left antecubital; tw5 04:16 Drug: LevaQUIN (levofloxacin) 750 mg Volume: 150 ml; Route: IVPB; Infused Over: 90 tw5 mins; Site: left antecubital; 06:26 Follow up: IV Status: Completed infusion; IV Intake: 150ml df1 Intake: 06:26 IV: 150ml; Total: 150ml. df1 Outcome: 03:57 ER care complete, transfer ordered by . vicky 07:04 Decision to Hospitalize by Provider. pkl 09:25 Admitted to Med/surg accompanied by tech, via stretcher, room 222, with oxygen, with jd3 chart, Report called to Nurse for room 222 09:25 Condition: stable 09:25 Instructed on the need for admit. 09:27 Patient left the ED. jd3 Signatures: Dispatcher [employer] EDMS Reid Chavira MD MD pkl Pascual Merino PA PA cp Davies, Jonathon, RN RN jd3 Marija Rodríguez Tyler tt3 Abril Cunha kc4 Mia Benjamin df1 Gi Cloud tw Corrections: (The following items were deleted from the chart) 02:05 01:57 SARS-COV-2 RT PCR+MOL.LAB.BRZ drawn and sent. EDMS 02:18 02:15 Home Meds: aspirin 81 mg Oral chew 1 tab once daily; 04:14 04:02 Hemoglobin+H.LAB.BRZ drawn and sent. ED 04:14 04:14 Hematocrit+H.LAB.BRZ drawn and sent. EDMS
[2021-01-14] MEDS ORDERED: Levofloxacin 750mg IV 750 MG/150 ML BAG IV ONE (04:03)
[2021-01-14] MEDS ORDERED: NA CHLORIDE 0.9% 1,000 ML ONE (04:03)
[2021-01-14 04:24] LABS: Basophils % 0.4 % (0-1.3)
[2021-01-14 04:26] LABS: Absolute Lymphocytes (CBC) 1.1 K/uL (0.7-4.9); Hematocrit 39.6 % (36.0-45.0); Lymphocytes % 9.6 % (15.3-44.8); MPV 8.8 fL (7.6-11.3); RBC Red Blood Cell Count 4.44 M/uL (3.86-4.86)
[2021-01-14] MEDS ORDERED: ACETAMINOPHEN 500 MG TAB PO PRN (07:27)
[2021-01-14] MEDS: NA CHLORIDE 0.9% 1,000 ML IV SCH ×2 (08:00→11:43)
[2021-01-14] MEDS ORDERED: Meropenem 500 MG/100 ML BAG IV SCH (08:45)
--- NOTE | 2021-01-14 08:59 | RAD REPORT ---
EXAM DESCRIPTION: Chrissy Single View01/14/2021 2:13 am CLINICAL HISTORY: Hematochezia/abdominal pain COMPARISON: August 2020 FINDINGS: Upper lobe vessel prominent thickening of pulmonary venous hypertension. The lungs appear clear of acute infiltrate. The heart is mildly enlarged
[2021-01-14] MEDS: Meropenem 1 GM/100 ML BAG IV SCH ×2 (11:43→20:20)
[2021-01-14] MEDS: ONDANSETRON 4 MG/2 ML VIAL IV PRN (11:55)
[2021-01-14 14:23] VITALS: BMI 55.6
--- NOTE | 2021-01-14 15:15 | CON ---
Date of Consultation: 01/14/2021 Brief History Of Present Illness: The patient is a 65-year-old female, who presents to ER via EMS with complaints of blood per rectum and pain in the left lower quadrant. She states she has never had similar episodes before in the past. She has pain in her pelvic area as well and general f eelings of malaise and fatigue. Past Medical History: ADHD, ADD, arthritis, chronic pain, COPD, fibromyalgia, multiple urinary tract infections, coronary artery disease, hyperlipidemia, hypertension, insomnia, lymphedema, peripheral neuropathy, kidney dysfunction, and CKD. Allergies: INCLUDE ALOE VERA, AUGMENTIN, BACTRIM, BETADINE, CELERY, DEMEROL, FENTANYL, FLU VACCINE, IODINE, , MACROLIDES, MYCINS, PEPPERS, PNEUMOVAX 23, ROCEPHIN, STELAZINE, SULFA, AND VANCOM YCIN. Medications: Home medications include gabapentin, Lasix, lovastatin, and metoprolol. Review of Systems: Ten-point review of systems other than HPI, denies. Physical Examination: Vital Signs: At the time of my examination, her BMI is 55.6. Her blood pressure was 113/57, heart r ate 76, respiratory rate 16, and temperature 98.3. General: She is awake and lethargic, but arousable. She states she has not gotten sleep in the past 24 hours and is very tired and sleepy. However, she is conversive during my examination, but lethar gic. Psychiatric: She is conversive otherwise and oriented to person, place, time, and event. HEENT: Normocephalic. Sclerae icteric. Mucosa is moist. Oropharynx clear. Neck: Supple without JVD. Chest: Normal expansion and excursion. Cardiovascular: Regular rate and rhythm. Pulmonary: Clear to auscultation bilaterally. Abdomen: Soft, nontender, and nondistended. No rebound. No guarding. No focal peritonitis. She i s obese generally. Extremities: No clubbing, cyanosis, or edema. Skin: Warm and dry. Laboratory Data: Reveals a white blood count 11.7, hemoglobin 13.3, hematocrit 39.6, platelet count is 235, and neutrophils 78%. Her PT 12.9, INR 1.12, and PTT is 34. Her sodium 139, potassium 2.5, c hloride 99, carbon dioxide 32, BUN 20, and creatinine 1.09. Her glucose is 124, lactic acid is 1.2, total bilirubin 0.4, direct component 0.1, AST 6, ALT 13, and alkaline phosphatase 68. Troponin less than 0.012. ProBNP 403. Procalcitonin 0.5. Urine was loaded with bacteria. She had a CT scan per formed of the abdomen and pelvis, read by the [facility] radiologist officially as bilateral nephrolit hiasis without hydronephrosis. No definite acute inflammatory process. Assessment And Plan: This is a 65-year-old female, who comes in with possible gastrointestinal bleed ing. 1.IV fluid hydration. 2.Serial exams. 3.The patient has a normal hemoglobin count at this time and as such, there is no need for urgent or emergent intervention at this particular juncture. I recommend continue medical management for her urinary tract infection and I will likely recommend colonoscopy as an outpatient unless the patient's condition changes and she has evidence of acute active bleeding requiring intervention. I have expl ained the risks, benefits, and alternatives of the above stated plan. The patient agrees as indicate d. ANN-MARIE/MICHELLE Voice ID: [id number] Report ID: [id number]
[2021-01-14] MEDS ORDERED: POTASSIUM 25 MEQ EFFERV TAB PO ONE (15:28)
[2021-01-14] MEDS: KCL 20 MEQ/100 mL IVPB 20 MEQ/100 ML BAG IV SCH ×2 (15:48→21:36)
[2021-01-14] MEDS ORDERED: NA CHLORIDE 0.9% 250 ML ONE (16:33)
[2021-01-14] MEDS: MORPHINE 2 MG/ML SYR IV PRN (16:59)
[2021-01-14 19:03] LABS: Absolute Lymphocytes (CBC) 0.6 K/uL (0.7-4.9); Basophils % 0.3 % (0-1.3); Hematocrit 33.1 % (36.0-45.0); Lymphocytes % 5.9 % (15.3-44.8); MPV 8.7 fL (7.6-11.3)
[2021-01-14 19:11] LABS: Potassium 3.3 mmol/L (3.5-5.1)
[2021-01-14 20:07] LABS: Blood Morphology Comment NOT SEEN (NOT SEEN); Platelet Estimate ADEQ
--- NOTE | 2021-01-15 | P.HP ---
Certification for Inpatient Patient admitted to: Inpatient With expected LOS: >2 Midnights Patient will require the following post-hospital care: None Practitioner: I am a practitioner with admitting privileges, knowledge of patient current condition, hospital course, and medical plan of care. Services: Services provided to patient in accordance with Admission requirements found in Title 42 Section 412.3 of the Code of Federal Regulations Patient History Date of Service: 01/14/21 Reason for admission: Multi-drug resistant UTI/lower GI bleed History of Present Illness: Patient is a 65-year-old who has a history of multi-drug resistant UTI. Patient has been doing okay until earlier which she started noticing that had not been feeling well. Patient had a small amount of blood in her stools. She came to the hospital for further evaluation. Initially, they wanted transfer the patient to tertiary care facility. She was refusing. She stated that she only has a small amount of bleeding and her hemoglobin is stable so she did not want to be transferred. Patient does not follow with a GI doctor. Has not had a colonoscopy in a while. Seen by General surgery and no aggressive intervention at this time. Patient also follows of with wound healing for lymphedema and erythema of the leg. Patient is morbidly obese and has needed numerous admissions in the past for similar issues. Her anatomy is not appropriate for a suprapubic catheter. Continue with antibiotic therapy. We will continue with IV fluids. Monitor hemoglobin closely. Allergies amoxicillin [From Augmentin] Allergy (Severe, Verified 09/16/19 23:49) diarrhea, nausea, vomiting ceftriaxone [From Rocephin] Allergy (Severe, Verified 09/16/19 23:49) Itching/Hives/Rash fentanyl Allergy (Severe, Verified 09/16/19 23:49) Itching/Hives/Rash iodine Allergy (Severe, Verified 09/16/19 23:49) Unknown lincomycin [From Lincocin] Allergy (Severe, Verified 09/16/19 23:49) rashes,headaches pneumococcal vaccine [From Pneumovax 23] Allergy (Severe, Verified 09/16/19 23:49) sick more than a week sulfamethoxazole [From Bactrim] Allergy (Severe, Verified 09/16/19 23:49) Anaphylaxis trifluoperazine [From Stelazine] Allergy (Severe, Verified 09/16/19 23:49) itching and rashes vancomycin Allergy (Severe, Verified 09/16/19 23:49) renal failure soap [From Betadine] Allergy (Mild, Verified 09/16/19 23:49) Hives/Rash Sulfa (Sulfonamide Antibiotics) Allergy (Mild, Verified 09/16/19 23:49) Anaphylaxis aloe vera Allergy (Verified 09/16/19 23:49) Itching celery Allergy (Verified 09/16/19 23:49) Nausea/Vomiting Macrolide Antibiotics Allergy (Verified 09/16/19 23:49) Itching/Hives/Rash FLU VACCINE Allergy (Severe, Uncoded 09/16/19 23:49) sick for more than a week aloe vera Allergy (Uncoded 09/16/19 23:49) Unknown hall peppers Allergy (Uncoded 09/16/19 23:49) Nausea/Vomiting celery Allergy (Uncoded 09/16/19 23:49) Unknown FLU VAC Allergy (Uncoded 09/16/19 23:49) Unknown peppers Allergy (Uncoded 09/16/19 23:49) Unknown Home Medications: Lovastatin 1 tab PO BEDTIME 12/15/17 Metoprolol Tartrate [Lopressor*] 1 tab PO DAILY 09/16/19 Lactobacillus Acidophilus [Acidophilus Lactobacilli] 1 each PO TID #30 capsule 09/11/20 Medihoney [Medihoney Woundcare Gel*] 1 appl TOP DAILY #1 tube 09/11/20 Cranberry Fruit Extract/Vit C [Azo Cranberry Softgel] 1 each PO DAILY 01/14/21 Diphenhydramine [Benadryl Tab/Cap] 25 mg PO BEDTIME 01/14/21 Furosemide [Lasix] 40 mg PO BIDL 01/14/21 Gabapentin 300 mg PO BEDTIME 01/14/21 - Past Medical/Surgical History Has patient received pneumonia vaccine in the past: No Diabetic: No -: Lymphedema - bilateral leg -: Morbid obesity with Hx of Lap. Band -: Peripheral neuropathy -: Osteoarthritis -: mild COPD -: mild eczema -: Depression -: Sleep apnea -: CHF -: CRE -: hypertension -: frequent UTIs -: -: Lap band 2008 -: Tonsillectomy and adenoidectomy Psychosocial/ Personal History: , Disabled. One son. - Family History Father Medical History: Heart disease Mother Medical History: Hypertension, Stroke Notes: erin deirdre syndrome - Social History Smoking Status: Current some day smoker Alcohol use: No CD- Drugs: No Caffeine use: Yes Review of Systems 10-point ROS is otherwise unremarkable Physical Examination - Vital Signs Temperature: 96.9 F Blood Pressure: 99/52 Pulse: 75 Respirations: 18 Pulse Ox (%): 94 - Physical Exam General: Alert, In no apparent distress, Oriented x3, Obese HEENT: Atraumatic, PERRLA, Mucous membr. moist/pink, EOMI, Sclerae nonicteric Neck: Supple, 2+ carotid pulse no bruit, No LAD, Without JVD or thyroid abnormality Respiratory: Clear to auscultation bilaterally, Normal air movement Cardiovascular: Regular rate/rhythm, Normal S1 S2, No murmurs Gastrointestinal: Normal bowel sounds, Soft and benign, Non-distended, No rebound, No guarding, Tenderness Musculoskeletal: No clubbing, No swelling, No tenderness Integumentary: No rashes Neurological: Normal speech, Normal tone, Sensation intact, Cranial nerves 3-12 intact, Normal affect, Abnormal gait, Abnormal strength Lymphatics: No axilla or inguinal lymphadenopathy - Studies Laboratory Data (last 24 hrs) 01/14/21 04:09: WBC 11.70 H, Hgb 13.3, Hct 39.6, Plt Count 235 01/14/21 03:55: Hgb Cancelled, Hct Cancelled 01/14/21 01:47 NURSES AIDE: PT 12.9 H, INR 1.12, APTT 34.9 01/14/21 01:47 NURSES AIDE: WBC 10.40, Hgb 13.5, Hct 40.8, Plt Count 235 01/14/21 01:47 NURSES AIDE: Sodium 139, Potassium 2.5 L*, BUN 20 H, Creatinine 1.09, Glucose 124 H, Magnesium 1.8, Total Bilirubin 0.4, AST 6 L, ALT 13, Alkaline Phosphatase 68 Assessment & Plan - Problems (Diagnosis) (1) MDRO (multiple drug resistant organisms) resistance Current Visit: Yes Status: Acute (2) Lower GI bleed Current Visit: Yes Status: Acute (3) Lymphedema of both lower extremities Onset Date: 12/12/16 Current Visit: No Status: Chronic (4) Decubitus ulcer of left buttock, stage 2 Current Visit: No Status: Resolved - Plan Plan: 1. Continue with antibiotics 2. Monitor H&H 3. Surgery consultation appreciated 4. Wound healing consultation 5. Physical therapy evaluation 6. Strict blood pressure and blood sugar control 7. Outpatient GI follow-up 8. Outpatient Urology follow-up 9. GI and DVT prophylaxis Discharge Plan: Home Plan to discharge in: Greater than 2 days - Advance Directives Does patient have a Living Will: No Does patient have a Durable POA for Healthcare: No - Code Status/Comfort Care Code Status Assessed: Yes Code Status: Full Code Critical Care: No Time Spent Managing PTS Care (In Minutes): 45
[2021-01-15] MEDS: MORPHINE 2 MG/ML SYR IV PRN ×3 (03:01→13:57)
[2021-01-15] MEDS: NA CHLORIDE 0.9% 1,000 ML IV SCH ×2 (04:00→08:26)
[2021-01-15 05:26] LABS: Absolute Lymphocytes (CBC) 0.5 K/uL (0.7-4.9); Basophils % 0.7 % (0-1.3); Hematocrit 33.5 % (36.0-45.0); Lymphocytes % 5.4 % (15.3-44.8); MPV 8.5 fL (7.6-11.3); RBC Red Blood Cell Count 3.74 M/uL (3.86-4.86)
[2021-01-15 05:36] LABS: Protime INR 1.28
[2021-01-15 05:46] LABS: Albumin 1.7 g/dL (3.4-5.0); Bilirubin Total 0.5 mg/dL (0.2-1.0); Potassium 3.3 mmol/L (3.5-5.1); Protein, Total 5.8 g/dL (6.4-8.2)
[2021-01-15] MEDS ORDERED: LOPERAMIDE HCL 2 MG CAPSULE PO PRN (06:57)
[2021-01-15] MEDS: METOPROLOL TAR 25 MG TAB PO SCH (08:24)
[2021-01-15] MEDS: FUROSEMIDE 40 MG TABLET PO SCH ×2 (08:24→17:00)
[2021-01-15] MEDS: CRANBERRY FRUIT EXTRACT 400 MG CAP PO SCH (08:24)
[2021-01-15] MEDS: LACTOBACILLUS/ACIDOPHILUS TAB PO SCH ×3 (08:25→20:42)
[2021-01-15] MEDS: MEDIHONEY 44 ML TOPICAL TUBE TOP SCH (08:25)
[2021-01-15] MEDS: Meropenem 1 GM/100 ML BAG IV SCH ×2 (08:28→20:41)
--- NOTE | 2021-01-15 08:36 | RAD REPORT ---
EXAM DESCRIPTION: CT - Abdomen Pelvis Wo Contrast - 01/14/2021 6:46 am CLINICAL HISTORY: Blood in stool;Abd pain COMPARISON: 07/03/2018. TECHNIQUE: CT ABDOMEN PELVIS WITHOUT IV CONTRAST on 01/14/2021 1:49 AM WELLNESS TRAINER This exam was performed according to our departmental dose-optimization program, which includes autom ated exposure control, adjustment of the mA and/or kV according to patient size and/or use of iterati ve reconstruction technique. FINDINGS: Lower lungs are clear. Abdomen: The liver is normal in appearance. There is no biliary dilatation. Gallbladder is normally d istended. Gastric banding was performed. The pancreas and spleen are normal in appearance. Left adren al myelolipoma measures 3.5 cm. Right adrenal gland is normal. Left kidney contains a punctate lower pole calculus and 2 mm mid pole calculus. Right kidney contains at least three calculi measuring up t o 9 mm. There is no hydronephrosis bilaterally. Abdominal aorta is normal in course and caliber without aneurysm. There is no free air. There is no r etroperitoneal adenopathy. Pelvis: There is no bowel obstruction. Urinary bladder contains a bulky calculus measuring 3.6 cm. Th ere is a suprapubic Pedroza catheter in place. There is no free fluid. Uterus is normal in size. Append ix is not clearly seen. Skeleton: There are no acute osseous findings. No suspicious bony lesions. IMPRESSION: Bilateral nephrolithiasis without hydronephrosis. No definite acute inflammatory process. Electronically signed by: Rogers Obregon MD 01/14/2021 3:50 AM WELLNESS TRAINER Due to temporary technical issues with the PACS/Fluency reporting system, reports are being signed by the in house radiologists without review as a courtesy to insure prompt reporting. The interpreting radiologist is fully responsible for the content of the report.
[2021-01-15] MEDS ORDERED: LACTOBACILLUS/ACIDOPHILUS TAB PO SCH (09:00)
--- NOTE | 2021-01-15 10:59 | P.PN ---
Subjective Date of Service: 01/15/21 Primary Care Provider: Dr. Zhong Chief Complaint: Multi-drug resistant UTI/lower GI bleed Subjective: Improving, Doing well Physical Examination - Vital Signs Temperature: 98.1 F Blood Pressure: 106/60 Pulse: 75 Respirations: 18 Pulse Ox (%): 96 Assessment & Plan Discharge Plan: Home Plan to discharge in: Greater than 2 days Physician Review Additional Text: COVID: negative CT Scan: COMPARISON: 07/03/2018. 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 FINDINGS: Lower lungs are clear. Abdomen: The liver is normal in appearance. There is no biliary dilatation. Gallbladder is normally distended. Gastric banding was performed. The pancreas and spleen are normal in appearance. Left adrenal myelolipoma measures 3.5 cm. Right adrenal gland is normal. Left kidney contains a punctate lower pole calculus and 2 mm mid pole calculus. Right kidney contains at least three calculi measuring up to 9 mm. There is no hydronephrosis bilaterally. Abdominal aorta is normal in course and caliber without aneurysm. There is no free air. There is no retroperitoneal adenopathy. Pelvis: There is no bowel obstruction. Urinary bladder contains a bulky calculus measuring 3.6 cm. There is a suprapubic Pedroza catheter in place. There is no free fluid. Uterus is normal in size. Appendix is not clearly seen. Skeleton: There are no acute osseous findings. No suspicious bony lesions. IMPRESSION: Bilateral nephrolithiasis without hydronephrosis. No definite acute inflammatory process. CXR: COMPARISON: August 2020 FINDINGS: Upper lobe vessel prominent thickening of pulmonary venous hypertension. The lungs appear clear of acute infiltrate. The heart is mildly enlarged Physical exam: General: Alert, In no apparent distress, Oriented x3, Obese HEENT: Atraumatic, PERRLA, Mucous membr. moist/pink, EOMI, Sclerae nonicteric Neck: Supple, 2+ carotid pulse no bruit, No LAD, Without JVD or thyroid abnormality Respiratory: Clear to auscultation bilaterally, Normal air movement Cardiovascular: Regular rate/rhythm, Normal S1 S2, No murmurs Gastrointestinal: Normal bowel sounds, Soft and benign, Non-distended, No rebound, No guarding, Tenderness Musculoskeletal: No clubbing, No swelling, No tenderness Integumentary: No rashes Neurological: Normal speech, Normal tone, Sensation intact, Cranial nerves 3-12 intact, Normal affect, Abnormal gait, Abnormal strength Lymphatics: No axilla or inguinal lymphadenopathy Impression: Recurrent UTI with history of multidrug-resistant organism and bilateral nephrolithiasis Chronic lymphedema to the lower extremities Chronic decubitus ulcer to the left buttock stage II Hypertension Chronic pain with neuropathy Hyperlipidemia Chronic diastolic CHF Morbid obesity, BMI 55 Plan: Recurrent UTI with history of multidrug-resistant organism and bilateral nephrolithiasis: Overall stable. Continue with IV meropenem. Infectious disease consulted for further recommendation. Await urine culture results. Patient may require PICC line with possible IV antibiotic therapy at home or consider skilled facility. Await results Chronic lymphedema to the lower extremities: Discussed in detail with wound care. Continue with wound care recommendations. Chronic decubitus ulcer to the left buttock stage II: Continue with wound care recommendations Hypertension: Continue with metoprolol. Will monitor and adjust appropriately. Hyperlipidemia: Continue with Lipitor. Chronic pain with neuropathy: Continue with gabapentin. Will provide medication for pain. Chronic diastolic CHF: Continue with Lasix. Will consider discontinuing IV fluids. Morbid obesity, BMI 55: Lifestyle modification education provided. DVT prophylaxis: Lovenox CODE STATUS: Full code Advance care planning: This will depend on findings of urine culture. Continue with above plan of care. Time Spent Managing Pts Care (In Minutes): 55
--- NOTE | 2021-01-15 13:26 | P.PN ---
Subjective Date of Service: 01/15/21 Primary Care Provider: Dr. Zhong Chief Complaint: Multi-drug resistant UTI/lower GI bleed Subjective: Other (Patient has no acute events, diarrhea, non-bloody.) Physical Examination - Vital Signs Temperature: 98.1 F Blood Pressure: 108/63 Pulse: 62 Respirations: 18 Pulse Ox (%): 96 - Physical Exam General: Alert, In no apparent distress, Cooperative Respiratory: Normal air movement Gastrointestinal: Soft and benign, No ascites, No tenderness, No masses, No rebound, No guarding Integumentary: Other (pressure ulcers to bilateral buttock area, + severe lymphedema to bilateral lower extremities) Assessment And Plan - Plan - No evidence of GI bleed @ this time - recommend outpatient colonoscopy - wound care to bilateral buttocks with pressure reduction, irodoform, ABD, rotate Q2 hrs, air mattress Physician Review Additional Text: COVID: negative CT Scan: COMPARISON: 07/03/2018. TECHNIQUE: CT ABDOMEN PELVIS WITHOUT IV CONTRAST on 01/14/2021 1:49 AM STITCHER FEEDER This exam was performed according to our departmental dose-optimization program, which includes automated exposure control, adjustment of the mA and/or kV according to patient size and/or use of iterative reconstruction technique. FINDINGS: Lower lungs are clear. Abdomen: The liver is normal in appearance. There is no biliary dilatation. Gallbladder is normally distended. Gastric banding was performed. The pancreas and spleen are normal in appearance. Left adrenal myelolipoma measures 3.5 cm. Right adrenal gland is normal. Left kidney contains a punctate lower pole calculus and 2 mm mid pole calculus. Right kidney contains at least three calculi measuring up to 9 mm. There is no hydronephrosis bilaterally. Abdominal aorta is normal in course and caliber without aneurysm. There is no free air. There is no retroperitoneal adenopathy. Pelvis: There is no bowel obstruction. Urinary bladder contains a bulky calculus measuring 3.6 cm. There is a suprapubic Pedroza catheter in place. There is no free fluid. Uterus is normal in size. Appendix is not clearly seen. Skeleton: There are no acute osseous findings. No suspicious bony lesions. IMPRESSION: Bilateral nephrolithiasis without hydronephrosis. No definite acute inflammatory process. CXR: COMPARISON: August 2020 FINDINGS: Upper lobe vessel prominent thickening of pulmonary venous hypertension. The lungs appear clear of acute infiltrate. The heart is mildly enlarged Physical exam: General: Alert, In no apparent distress, Oriented x3, Obese HEENT: Atraumatic, PERRLA, Mucous membr. moist/pink, EOMI, Sclerae nonicteric Neck: Supple, 2+ carotid pulse no bruit, No LAD, Without JVD or thyroid abnormality Respiratory: Clear to auscultation bilaterally, Normal air movement Cardiovascular: Regular rate/rhythm, Normal S1 S2, No murmurs Gastrointestinal: Normal bowel sounds, Soft and benign, Non-distended, No rebound, No guarding, Tenderness Musculoskeletal: No clubbing, No swelling, No tenderness Integumentary: No rashes Neurological: Normal speech, Normal tone, Sensation intact, Cranial nerves 3-12 intact, Normal affect, Abnormal gait, Abnormal strength Lymphatics: No axilla or inguinal lymphadenopathy Impression: Recurrent UTI with history of multidrug-resistant organism and bilateral nephrolithiasis Chronic lymphedema to the lower extremities Chronic decubitus ulcer to the left buttock stage II Hypertension Chronic pain with neuropathy Hyperlipidemia Chronic diastolic CHF Morbid obesity, BMI 55 Plan: Recurrent UTI with history of multidrug-resistant organism and bilateral nephrolithiasis: Overall stable. Continue with IV meropenem. Infectious disease consulted for further recommendation. Await urine culture results. Patient may require PICC line with possible IV antibiotic therapy at home or consider skilled facility. Await results Chronic lymphedema to the lower extremities: Discussed in detail with wound care. Continue with wound care recommendations. Chronic decubitus ulcer to the left buttock stage II: Continue with wound care recommendations Hypertension: Continue with metoprolol. Will monitor and adjust appropriately. Hyperlipidemia: Continue with Lipitor. Chronic pain with neuropathy: Continue with gabapentin. Will provide medication for pain. Chronic diastolic CHF: Continue with Lasix. Will consider discontinuing IV fluids. Morbid obesity, BMI 55: Lifestyle modification education provided. DVT prophylaxis: Lovenox CODE STATUS: Full code Advance care planning: This will depend on findings of urine culture. Continue with above plan of care.
[2021-01-15] MEDS: KCL 20 MEQ/100 mL IVPB 20 MEQ/100 ML BAG IV SCH ×2 (13:56→16:00)
--- NOTE | 2021-01-15 18:28 | EKG ---
Test Date: 2021-01-14 Test Time: 03:52:05 [place] Cashier: NAVYA MEASUREMENT RESULTS: Intervals: Rate: 74 VA: 168 QRSD: 94 QT: 390 QTc: 432 [place]: P: 34 VA: 168 QRS: -24 T: 33 INTERPRETIVE STATEMENTS: Normal sinus rhythm Normal ECG Compared to ECG 03/26/2019 09:18:13 Ventricular premature complex(es) no longer present Electronically Signed On 01-15-21 18:23:56 NETWORK INFRASTRUCTURE ARCHITECT by Mamadou Peña
[2021-01-15] MEDS: DIPHENHYDRAMINE 25 MG TAB/CAP PO SCH (20:43)
[2021-01-15] MEDS: GABAPENTIN 300 MG CAP PO SCH (20:43)
[2021-01-15] MEDS: ATORVASTATIN 10 MG TAB PO SCH (20:44)
[2021-01-16] MEDS: NA CHLORIDE 0.9% 1,000 ML IV SCH (05:47)
--- NOTE | 2021-01-16 06:03 | P.PN ---
Subjective Date of Service: 01/16/21 Primary Care Provider: Dr. Gutierrez Chief Complaint: Multi-drug resistant UTI/lower GI bleed Subjective: Doing well Physical Examination - Vital Signs Temperature: 97.5 F Blood Pressure: 127/66 Pulse: 63 Respirations: 20 Pulse Ox (%): 95 Assessment & Plan Discharge Plan: Other (long-term facility) Plan to discharge in: 48 Hours Physician Review Additional Text: COVID: negative CT Scan: COMPARISON: 07/03/2018. 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 FINDINGS: Lower lungs are clear. Abdomen: The liver is normal in appearance. There is no biliary dilatation. Gallbladder is normally distended. Gastric banding was performed. The pancreas and spleen are normal in appearance. Left adrenal myelolipoma measures 3.5 cm. Right adrenal gland is normal. Left kidney contains a punctate lower pole calculus and 2 mm mid pole calculus. Right kidney contains at least three calculi measuring up to 9 mm. There is no hydronephrosis bilaterally. Abdominal aorta is normal in course and caliber without aneurysm. There is no free air. There is no retroperitoneal adenopathy. Pelvis: There is no bowel obstruction. Urinary bladder contains a bulky calculus measuring 3.6 cm. There is a suprapubic Pedroza catheter in place. There is no free fluid. Uterus is normal in size. Appendix is not clearly seen. Skeleton: There are no acute osseous findings. No suspicious bony lesions. IMPRESSION: Bilateral nephrolithiasis without hydronephrosis. No definite acute inflammatory process. CXR: COMPARISON: August 2020 FINDINGS: Upper lobe vessel prominent thickening of pulmonary venous hypertension. The lungs appear clear of acute infiltrate. The heart is mildly enlarged Physical exam: General: Alert, In no apparent distress, Oriented x3, Obese HEENT: Neck supple Respiratory: Clear to auscultation bilaterally, Normal air movement Cardiovascular: Regular rate/rhythm, Normal S1 S2, No murmurs Gastrointestinal: Normal bowel sounds, Soft and benign, Non-distended, No rebound, No guarding, Tenderness Musculoskeletal: No clubbing, No swelling, No tenderness Integumentary: No rashes. Bandages to the lower extremities noted Neurological: Normal speech, Normal tone, Sensation intact, Cranial nerves 3-12 intact, Normal affect, Abnormal gait, Abnormal strength Lymphatics: No axilla or inguinal lymphadenopathy Impression: Recurrent UTI with history of multidrug-resistant organism and bilateral nephro lithiasis, urine culture positive for Proteus Chronic lymphedema to the lower extremities Chronic decubitus ulcer to the left buttock stage II Hypertension Chronic pain with neuropathy Hyperlipidemia Chronic diastolic CHF Morbid obesity, BMI 55 Plan: Recurrent UTI with history of multidrug-resistant organism and bilateral nephrolithiasis, urine culture positive for Proteus: Patient remains on IV meropenem. Urine culture positive for Proteus. Merrem is sensitive. Patient will require PICC line. Patient will need IV meropenem for a total of 7 days. Will arrange for skilled placement to continue IV antibiotic therapy there. Social work consulted to help with this process. Chronic lymphedema to the lower extremities: Continue with wound care recommen dations commendations. Chronic decubitus ulcer to the left buttock stage II: Continue with wound care recommendations Hypertension: Continue with metoprolol. Will monitor and adjust appropriately. Hyperlipidemia: Continue with Lipitor. Chronic pain with neuropathy: Continue with gabapentin. Will provide medication for pain. Chronic diastolic CHF: Continue with Lasix. Morbid obesity, BMI 55: Lifestyle modification education provided. DVT prophylaxis: Lovenox CODE STATUS: Full code Advance care planning: We will pursue skilled placement to continue IV antibiotic therapy. Time Spent Managing Pts Care (In Minutes): 55
[2021-01-16 06:09] LABS: Absolute Lymphocytes (CBC) 0.7 K/uL (0.7-4.9); Basophils % 0.6 % (0-1.3); Hematocrit 35.3 % (36.0-45.0); Lymphocytes % 8.2 % (15.3-44.8); MPV 8.3 fL (7.6-11.3); RBC Red Blood Cell Count 3.91 M/uL (3.86-4.86)
[2021-01-16 06:23] LABS: Magnesium 1.8 mg/dL (1.8-2.4); Potassium 3.3 mmol/L (3.5-5.1)
[2021-01-16] MEDS: LACTOBACILLUS/ACIDOPHILUS TAB PO SCH ×3 (08:31→21:02)
[2021-01-16] MEDS: FUROSEMIDE 40 MG TABLET PO SCH ×2 (08:33→16:35)
[2021-01-16] MEDS: METOPROLOL TAR 25 MG TAB PO SCH (08:34)
[2021-01-16] MEDS: Meropenem 1 GM/100 ML BAG IV SCH ×2 (08:35→21:03)
[2021-01-16] MEDS: CRANBERRY FRUIT EXTRACT 400 MG CAP PO SCH (08:35)
[2021-01-16] MEDS: MEDIHONEY 44 ML TOPICAL TUBE TOP SCH (08:42)
[2021-01-16] MEDS ORDERED: MAGNESIUM SULFATE 1 gm IVPB 1 GM/100 ML BAG IV ONE (09:00)
[2021-01-16] MEDS ORDERED: TRAMADOL HCL 50 MG TAB PO PRN (11:33)
[2021-01-16] MEDS ORDERED: HYDROCODONE/APAP 7.5/325 MG TAB ONE (13:52)
[2021-01-16] MEDS: HYDROCODONE/APAP 7.5/325 MG TAB PO PRN (13:55)
[2021-01-16] MEDS: ONDANSETRON 4 MG/2 ML VIAL IV PRN (14:27)
[2021-01-16] MEDS: MORPHINE 2 MG/ML SYR IV PRN (16:31)
[2021-01-16] MEDS: ENOXAPARIN 40 MG/0.4 ML SQ SCH (16:35)
[2021-01-16] MEDS: ATORVASTATIN 10 MG TAB PO SCH (21:02)
[2021-01-16] MEDS: DIPHENHYDRAMINE 25 MG TAB/CAP PO SCH (21:02)
[2021-01-16] MEDS: GABAPENTIN 300 MG CAP PO SCH (21:02)
--- NOTE | 2021-01-17 05:55 | P.PN ---
Subjective Date of Service: 01/17/21 Primary Care Provider: Dr. Gutierrez Chief Complaint: Multi-drug resistant UTI/lower GI bleed Subjective: Improving, Doing well, Other (Patient reporting some irritation to the back of her throat.) Physical Examination - Vital Signs Temperature: 98.2 F Blood Pressure: 157/82 Pulse: 71 Respirations: 17 Pulse Ox (%): 90 - Studies Microbiology Data (last 24 hrs): 01/14/21 01:58 SURGERY ASSISTANT Catheterized Urine [place] Count - Final >100,000 CFU/ML. 01/14/21 01:58 SURGERY ASSISTANT Catheterized Urine - Final Proteus Mirabilis Assessment & Plan Discharge Plan: Other (Nursing facility) Plan to discharge in: 24 Hours Physician Review Additional Text: COVID: negative CT Scan: COMPARISON: 07/03/2018. TECHNIQUE: CT ABDOMEN PELVIS WITHOUT IV CONTRAST on 01/14/2021 1:49 AM SURGERY ASSISTANT This exam was performed according to our departmental dose-optimization program, which includes automated exposure control, adjustment of the mA and/or kV according to patient size and/or use of iterative reconstruction technique. FINDINGS: Lower lungs are clear. Abdomen: The liver is normal in appearance. There is no biliary dilatation. Gallbladder is normally distended. Gastric banding was performed. The pancreas and spleen are normal in appearance. Left adrenal myelolipoma measures 3.5 cm. Right adrenal gland is normal. Left kidney contains a punctate lower pole calculus and 2 mm mid pole calculus. Right kidney contains at least three calculi measuring up to 9 mm. There is no hydronephrosis bilaterally. Abdominal aorta is normal in course and caliber without aneurysm. There is no free air. There is no retroperitoneal adenopathy. Pelvis: There is no bowel obstruction. Urinary bladder contains a bulky calculus measuring 3.6 cm. There is a suprapubic Pedroza catheter in place. There is no free fluid. Uterus is normal in size. Appendix is not clearly seen. Skeleton: There are no acute osseous findings. No suspicious bony lesions. IMPRESSION: Bilateral nephrolithiasis without hydronephrosis. No definite acute inflammatory process. CXR: COMPARISON: August 2020 FINDINGS: Upper lobe vessel prominent thickening of pulmonary venous hypertension. The lungs appear clear of acute infiltrate. The heart is mildly enlarged Physical exam: General: Alert, In no apparent distress, Oriented x3, Obese HEENT: Neck supple Respiratory: Clear to auscultation bilaterally, Normal air movement Cardiovascular: Regular rate/rhythm, Normal S1 S2, No murmurs Gastrointestinal: Normal bowel sounds, Soft and benign, Non-distended, No rebound, No guarding, Tenderness Musculoskeletal: No clubbing, No swelling, No tenderness Integumentary: No rashes. Bandages to the lower extremities noted Neurological: Good range of motion to upper lower extremities. Patient with chronic lymphedema to the lower extremities. Patient with history of neuropathy and chronic pain. Lymphatics: No axilla or inguinal lymphadenopathy Impression: Recurrent UTI with history of multidrug-resistant organism and bilateral nephrolithiasis, urine culture positive for Proteus Chronic lymphedema to the lower extremities Chronic decubitus ulcer to the left buttock stage II Hypertension Chronic pain with neuropathy Hyperlipidemia Chronic diastolic CHF Morbid obesity, BMI 55 Plan: Recurrent UTI with history of multidrug-resistant organism and bilateral nephrolithiasis, urine culture positive for Proteus: Patient doing well at this time. Continue IV meropenem 1 g twice daily. Patient will need 7 days of therapy. PICC line ordered. Currently on day 3 of treatment. Will add nystatin swish and swallow 3 times a day. Continue with lactobacillus 3 times a day. Social work arranging for skilled placement to continue IV antibiotic therapy at facility. Anticipate approval within the next 24 hours. Chronic lymphedema to the lower extremities: Continue with wound care recommendations. Continue with Lasix 40 mg 1 pill twice daily. Chronic decubitus ulcer to the left buttock stage II: Continue with wound care recommendations Hypertension: Continue with metoprolol 25 mg daily. Will monitor and adjust appropriately. Hyperlipidemia: Continue with Lipitor 10 mg daily. Chronic pain with neuropathy: Continue with gabapentin 300 mg daily. Will also continue with other pain medication as needed. Continue with physical therapy. Morbid obesity, BMI 55: Lifestyle modification education provided. DVT prophylaxis: Lovenox CODE STATUS: Full code Advance care planning: Will pursue skilled placement to continue IV antibiotic therapy. Time Spent Managing Pts Care (In Minutes): 55
[2021-01-17 06:01] LABS: Absolute Lymphocytes (CBC) 0.9 K/uL (0.7-4.9); Basophils % 0.3 % (0-1.3); Hematocrit 35.8 % (36.0-45.0); Lymphocytes % 8.5 % (15.3-44.8); MPV 7.9 fL (7.6-11.3); RBC Red Blood Cell Count 3.98 M/uL (3.86-4.86)
[2021-01-17 06:20] LABS: Potassium 3.2 mmol/L (3.5-5.1)
[2021-01-17] MEDS: KCL 20 MEQ/100 mL IVPB 20 MEQ/100 ML BAG IV SCH ×2 (07:00→09:00)
[2021-01-17] MEDS: FUROSEMIDE 40 MG TABLET PO SCH ×2 (08:35→16:53)
[2021-01-17] MEDS: MEDIHONEY 44 ML TOPICAL TUBE TOP SCH (08:35)
[2021-01-17] MEDS: LACTOBACILLUS/ACIDOPHILUS TAB PO SCH ×3 (08:35→20:45)
[2021-01-17] MEDS: NYSTATIN 500,000 UNIT/5 ML UDC PO SCH ×3 (08:36→20:45)
[2021-01-17] MEDS: CRANBERRY FRUIT EXTRACT 400 MG CAP PO SCH (08:36)
[2021-01-17] MEDS: METOPROLOL TAR 25 MG TAB PO SCH (08:37)
--- NOTE | 2021-01-17 10:37 | P.CNS ---
Date of Consult: 01/17/21 Primary Care Provider: Dr. Gutierrez Chief Complaint: Multi-drug resistant UTI/lower GI bleed History of Present Illness: The patient is a 65-year-old female who has a history of multi-drug resistant urinary tract infections. She presented to the hospital secondary to not feeling well and noticing a small amounts of blood in her stools. When patient was admitted to the hospital to plan was to initially transfer her to a tertiary care facility however the patient was refusing. Urine cultures obtained on 01/14 growing multi-drug resistant Proteus mirabilis sensitive only to meropenem. Meropenem started on 01/14, PICC line being placed. Patient currently reports diarrhea. Patient denies nausea/vomiting/shortness breath/chest pain. Allergies amoxicillin [From Augmentin] Allergy (Severe, Verified 09/16/19 23:49) diarrhea, nausea, vomiting ceftriaxone [From Rocephin] Allergy (Severe, Verified 09/16/19 23:49) Itching/Hives/Rash fentanyl Allergy (Severe, Verified 09/16/19 23:49) Itching/Hives/Rash iodine Allergy (Severe, Verified 09/16/19 23:49) Unknown lincomycin [From Lincocin] Allergy (Severe, Verified 09/16/19 23:49) rashes,headaches pneumococcal vaccine [From Pneumovax 23] Allergy (Severe, Verified 09/16/19 23: 49) sick more than a week sulfamethoxazole [From Bactrim] Allergy (Severe, Verified 09/16/19 23:49) Anaphylaxis trifluoperazine [From Stelazine] Allergy (Severe, Verified 09/16/19 23:49) itching and rashes vancomycin Allergy (Severe, Verified 09/16/19 23:49) renal failure soap [From Betadine] Allergy (Mild, Verified 09/16/19 23:49) Hives/Rash Sulfa (Sulfonamide Antibiotics) Allergy (Mild, Verified 09/16/19 23:49) Anaphylaxis aloe vera Allergy (Verified 09/16/19 23:49) Itching celery Allergy (Verified 09/16/19 23:49) Nausea/Vomiting Macrolide Antibiotics Allergy (Verified 09/16/19 23:49) Itching/Hives/Rash FLU VACCINE Allergy (Severe, Uncoded 09/16/19 23:49) sick for more than a week aloe vera Allergy (Uncoded 09/16/19 23:49) Unknown hall peppers Allergy (Uncoded 09/16/19 23:49) Nausea/Vomiting celery Allergy (Uncoded 09/16/19 23:49) Unknown FLU VAC Allergy (Uncoded 09/16/19 23:49) Unknown peppers Allergy (Uncoded 09/16/19 23:49) Unknown Home Medications: Lovastatin 1 tab PO BEDTIME 12/15/17 Metoprolol Tartrate [Lopressor*] 1 tab PO DAILY 09/16/19 Lactobacillus Acidophilus [Acidophilus Lactobacilli] 1 each PO TID #30 capsule 09/11/20 Medihoney [Medihoney Woundcare Gel*] 1 appl TOP DAILY #1 tube 09/11/20 Cranberry Fruit Extract/Vit C [Azo Cranberry Softgel] 1 each PO DAILY 01/14/21 Diphenhydramine [Benadryl Tab/Cap] 25 mg PO BEDTIME 01/14/21 Furosemide [Lasix] 40 mg PO BIDL 01/14/21 Gabapentin 300 mg PO BEDTIME 01/14/21 - Past Medical/Surgical History Diabetic: No -: Lymphedema - bilateral leg -: Morbid obesity with Hx of Lap. Band -: Peripheral neuropathy -: Osteoarthritis -: mild COPD -: mild eczema -: Depression -: Sleep apnea -: CHF -: CRE -: hypertension -: frequent UTIs -: -: Lap band 2008 -: Tonsillectomy and adenoidectomy Psychosocial/ Personal History: , Disabled. One son. - Family History Father Medical History: Heart disease Mother Medical History: Hypertension, Stroke Notes: erin deirdre syndrome - Social History Smoking Status: Current every day smoker Alcohol use: No CD- Drugs: No Caffeine use: Yes Review of Systems 10-point ROS is otherwise unremarkable Physical Examination Temp Pulse Resp BP Pulse Ox 98.9 F 71 20 157/82 H 90 L 01/17/21 08:00 01/17/21 08:37 01/17/21 08:00 01/17/21 08:37 01/17/21 08:00 General: Alert, Obese HEENT: Atraumatic Neck: Supple, 2+ carotid pulse no bruit Respiratory: Clear to auscultation bilaterally, Normal air movement Cardiovascular: Regular rate/rhythm Gastrointestinal: Normal bowel sounds, Soft and benign Integumentary: Other (Bilateral lower extremity lymphedema and venous ulcerations ) Urinary: Other (Suprapubic catheter) Conclusions/Impression: Antibiotics Meropenem start: 01/14 Assessment/plan Multi-drug resistant urinary tract infection Urine culture obtained on 01/14 growing multi-drug resistant Proteus mirabilis sensitive only to meropenem. Meropenem started on 01/14 patient will need antibiotics for 7-10 days. Right arm PICC line placed on 01/16. Medical management per primary team Plan of care discussed with Dr. Hansen Thank you for consultation
--- NOTE | 2021-01-17 10:59 | RAD REPORT ---
EXAM DESCRIPTION: RAD - Chest Single View - 01/17/2021 10:51 am CLINICAL HISTORY: PICC line placement COMPARISON: Chest Single View dated 01/14/2021; Chest Single View dated 09/06/2020; Chest Single View dated 09/20/2019; Chest Single View dated 09/17/2019 FINDINGS: Lines: Right subclavian approach PICC with tip overlying the SVC. Lungs: No evidence of edema or pneumonia. Pleural: No significant pleural effusions or pneumothorax. Cardiac: The heart size is within normal limits. Bones: No acute fractures. Other: IMPRESSION: No acute cardiopulmonary disease. Right subclavian approach PICC with tip overlying the SVC in satisfactory position.
[2021-01-17] MEDS: Meropenem 1 GM/100 ML BAG IV SCH ×2 (12:17→20:45)
[2021-01-17] MEDS ORDERED: POTASSIUM 25 MEQ EFFERV TAB PO ONE (13:00)
[2021-01-17] MEDS: ENOXAPARIN 40 MG/0.4 ML SQ SCH (16:53)
[2021-01-17] MEDS: GABAPENTIN 300 MG CAP PO SCH (20:45)
[2021-01-17] MEDS: ATORVASTATIN 10 MG TAB PO SCH (20:45)
[2021-01-17] MEDS: DIPHENHYDRAMINE 25 MG TAB/CAP PO SCH (20:45)
--- NOTE | 2021-01-18 05:56 | P.PN ---
Subjective Date of Service: 01/18/21 Primary Care Provider: Dr. Gutierrez Chief Complaint: Multi-drug resistant UTI/lower GI bleed Subjective: Improving, Doing well Physical Examination - Vital Signs Temperature: 97.8 F Blood Pressure: 137/67 Pulse: 60 Respirations: 16 Pulse Ox (%): 89 Assessment & Plan Discharge Plan: Other (senior care facility) Plan to discharge in: 24 Hours Physician Review Additional Text: COVID: negative CT Scan: COMPARISON: 07/03/2018. TECHNIQUE: CT ABDOMEN PELVIS WITHOUT IV CONTRAST on 01/14/2021 1:49 AM OUTPATIENT ADMITTING CLERK This exam was performed according to our departmental dose-optimization program, which includes automated exposure control, adjustment of the mA and/or kV according to patient size and/or use of iterative reconstruction technique. FINDINGS: Lower lungs are clear. Abdomen: The liver is normal in appearance. There is no biliary dilatation. Gallbladder is normally distended. Gastric banding was performed. The pancreas and spleen are normal in appearance. Left adrenal myelolipoma measures 3.5 cm. Right adrenal gland is normal. Left kidney contains a punctate lower pole calculus and 2 mm mid pole calculus. Right kidney contains at least three calculi measuring up to 9 mm. There is no hydronephrosis bilaterally. Abdominal aorta is normal in course and caliber without aneurysm. There is no free air. There is no retroperitoneal adenopathy. Pelvis: There is no bowel obstruction. Urinary bladder contains a bulky calculus measuring 3.6 cm. There is a suprapubic Pedroza catheter in place. There is no free fluid. Uterus is normal in size. Appendix is not clearly seen. Skeleton: There are no acute osseous findings. No suspicious bony lesions. IMPRESSION: Bilateral nephrolithiasis without hydronephrosis. No definite acute inflammatory process. CXR: COMPARISON: August 2020 FINDINGS: Upper lobe vessel prominent thickening of pulmonary venous hypertension. The lungs appear clear of acute infiltrate. The heart is mildly enlarged Physical exam: General: Alert, In no apparent distress, Oriented x3, Obese HEENT: Neck supple Respiratory: Clear to auscultation bilaterally, Normal air movement Cardiovascular: Regular rate/rhythm, Normal S1 S2, No murmurs Gastrointestinal: Normal bowel sounds, Soft and benign, Non-distended, No rebound, No guarding, Tenderness Musculoskeletal: No clubbing, No swelling, No tenderness Integumentary: No rashes. Bandages to the lower extremities noted Neurological: Good range of motion to upper lower extremities. Patient with chronic lymphedema to the lower extremities. Patient with history of neuropathy and chronic pain. Lymphatics: No axilla or inguinal lymphadenopathy Impression: Recurrent UTI with history of multidrug-resistant organism and bilateral nephrolithiasis, urine culture positive for Proteus Chronic lymphedema to the lower extremities Chronic decubitus ulcer to the left buttock stage II Hypertension Chronic pain with neuropathy Hyperlipidemia Chronic diastolic CHF Morbid obesity, BMI 55 Plan: Recurrent UTI with history of multidrug-resistant organism and bilateral nephrolithiasis, urine culture positive for Proteus: Patient doing well at this time. Continue IV meropenem 1 g twice daily. PICC line in place. Patient will need 7-day treatment of IV meropenem. Currently on day 4. Continue nystatin swish and swallow 3 times a day. Continue with lactobacillus 3 times a day. Physical therapy to assess ambulation today. Will recommend bedside commode. Continue with wound care instruction. Spoke with social media marketing analyst about skilled placement. Need to make sure patient works with physical therapy today to make sure process/assessment for skilled placement is done. Anticipate approval for skilled placement within the next 24 hours. Chronic lymphedema to the lower extremities: Continue with wound care recommendations. Continue with Lasix 40 mg 1 pill twice daily. Chronic decubitus ulcer to the left buttock stage II: Continue with wound care recommendations Hypertension: Continue with metoprolol 25 mg daily. Will monitor and adjust appropriately. Hyperlipidemia: Continue with Lipitor 10 mg daily. Chronic pain with neuropathy: Continue with gabapentin 300 mg daily. Will also continue with other pain medication as needed. Physical therapy to continue to ambulate. Continue with above recommendation. Morbid obesity, BMI 55: Lifestyle modification education provided. DVT prophylaxis: Lovenox CODE STATUS: Full code Advance care planning: Await approval for skilled placement for continued IV antibiotic therapy and physical therapy. Time Spent Managing Pts Care (In Minutes): 55
[2021-01-18 06:11] LABS: Basophils % 0.6 % (0-1.3); Hematocrit 36.5 % (36.0-45.0); Lymphocytes % 10.8 % (15.3-44.8); MPV 8.1 fL (7.6-11.3); RBC Red Blood Cell Count 4.05 M/uL (3.86-4.86)
[2021-01-18 07:21] LABS: Magnesium 1.9 mg/dL (1.8-2.4); Potassium 3.4 mmol/L (3.5-5.1)
[2021-01-18] MEDS: MEDIHONEY 44 ML TOPICAL TUBE TOP SCH (09:00)
[2021-01-18] MEDS: CRANBERRY FRUIT EXTRACT 400 MG CAP PO SCH (09:37)
[2021-01-18] MEDS: METOPROLOL TAR 25 MG TAB PO SCH (09:37)
[2021-01-18] MEDS: LACTOBACILLUS/ACIDOPHILUS TAB PO SCH ×3 (09:37→20:36)
[2021-01-18] MEDS: NYSTATIN 500,000 UNIT/5 ML UDC PO SCH ×3 (09:37→20:27)
[2021-01-18] MEDS: Meropenem 1 GM/100 ML BAG IV SCH ×2 (09:38→20:27)
[2021-01-18] MEDS: FUROSEMIDE 40 MG TABLET PO SCH ×2 (09:38→18:06)
--- NOTE | 2021-01-18 11:37 | P.PN ---
Subjective Date of Service: 01/18/21 Primary Care Provider: Dr. Gutierrez Chief Complaint: Multi-drug resistant UTI/lower GI bleed Patient seen examined at bedside, PICC line incision site clean dry and intact. No clinical signs of infection. Review of Systems 10-point ROS is otherwise unremarkable Physical Examination - Vital Signs Temperature: 97.8 F Blood Pressure: 137/67 Pulse: 60 Respirations: 16 Pulse Ox (%): 89 - Studies Laboratory Last Values WBC 11.70 K/uL (4.3-10.9) H 01/14/21 04:09 RBC 4.44 M/uL (3.86-4.86) 01/14/21 04:09 Hgb 13.3 g/dL (12.0-15.0) 01/14/21 04:09 Hct 39.6 % (36.0-45.0) 01/14/21 04:09 MCV 89.0 fL (80-100) 01/14/21 04:09 MCH 29.9 pg (27.0-35.0) 01/14/21 04:09 MCHC 33.6 g/dL (32.0-36.0) 01/14/21 04:09 RDW 16.0 % (12.1-15.2) H 01/14/21 04:09 Plt Count 235 K/uL (152-406) 01/14/21 04:09 MPV 8.8 fL (7.6-11.3) 01/14/21 04:09 Neutrophils % 78.4 % (41.7-73.7) H 01/14/21 04:09 Lymphocytes % 9.6 % (15.3-44.8) L 01/14/21 04:09 Monocytes % 9.6 % (3.3-12.3) 01/14/21 04:09 Eosinophils % 2.0 % (0-4.4) 01/14/21 04:09 Basophils % 0.4 % (0-1.3) 01/14/21 04:09 Absolute Neutrophils 9.2 K/uL (1.8-8.0) H 01/14/21 04:09 Absolute Lymphocytes 1.1 K/uL (0.7-4.9) 01/14/21 04:09 Absolute Monocytes 1.1 K/uL (0.1-1.3) 01/14/21 04:09 Absolute Eosinophils 0.2 K/uL (0-0.5) 01/14/21 04:09 Absolute Basophils 0.0 K/uL (0-0.5) 01/14/21 04:09 PT 12.9 SECONDS (9.5-12.5) H 01/14/21 01:47 SENIOR ACCOUNTANT ANALYST INR 1.12 01/14/21 01:47 SENIOR ACCOUNTANT ANALYST APTT 34.9 SECONDS (24.3-36.9) 01/14/21 01:47 SENIOR ACCOUNTANT ANALYST Sodium 139 mmol/L (136-145) 01/14/21 01:47 SENIOR ACCOUNTANT ANALYST Potassium 2.5 mmol/L (3.5-5.1) L* 01/14/21 01:47 SENIOR ACCOUNTANT ANALYST Chloride 99 mmol/L (98-107) 01/14/21 01:47 SENIOR ACCOUNTANT ANALYST Carbon Dioxide 32 mmol/L (21-32) 01/14/21 01:47 SENIOR ACCOUNTANT ANALYST BUN 20 mg/dL (7-18) H 01/14/21 01:47 SENIOR ACCOUNTANT ANALYST Creatinine 1.09 mg/dL (0.55-1.3) 01/14/21 01:47 SENIOR ACCOUNTANT ANALYST Whole Bld Creatinine 1.1 mg/dL (0.6-1.3) 01/14/21 02:59 Estimated GFR 50 mL/min (=/>90) L 01/14/21 01:47 SENIOR ACCOUNTANT ANALYST Glucose 124 mg/dL (74-106) H 01/14/21 01:47 SENIOR ACCOUNTANT ANALYST Lactic Acid 1.2 mmol/L (0.4-2.0) 01/14/21 03:34 Calcium 8.9 mg/dL (8.5-10.1) 01/14/21 01:47 SENIOR ACCOUNTANT ANALYST Magnesium 1.8 mg/dL (1.8-2.4) 01/14/21 01:47 SENIOR ACCOUNTANT ANALYST Total Bilirubin 0.4 mg/dL (0.2-1.0) 01/14/21 01:47 SENIOR ACCOUNTANT ANALYST Direct Bilirubin 0.1 mg/dL (0-0.2) 01/14/21 01:47 SENIOR ACCOUNTANT ANALYST AST 6 U/L (15-37) L 01/14/21 01:47 SENIOR ACCOUNTANT ANALYST ALT 13 U/L (12-78) 01/14/21 01:47 SENIOR ACCOUNTANT ANALYST Alkaline Phosphatase 68 U/L (45-117) 01/14/21 01:47 SENIOR ACCOUNTANT ANALYST Rapid Troponin I < 0.02 ng/mL (0.0-0.045) 01/14/21 01:47 SENIOR ACCOUNTANT ANALYST NT-Pro-B Natriuret Pep 403 pg/mL (<125) H 01/14/21 01:47 SENIOR ACCOUNTANT ANALYST Serum Total Protein 7.2 g/dL (6.4-8.2) 01/14/21 01:47 SENIOR ACCOUNTANT ANALYST Albumin 2.3 g/dL (3.4-5.0) L 01/14/21 01:47 SENIOR ACCOUNTANT ANALYST Globulin 4.9 g/dL (2.3-3.5) H 01/14/21 01:47 SENIOR ACCOUNTANT ANALYST Albumin/Globulin Ratio 0.5 (1.1-1.8) L 01/14/21 01:47 SENIOR ACCOUNTANT ANALYST Procalcitonin 0.50 ng/mL (<0.050) H 01/14/21 01:47 SENIOR ACCOUNTANT ANALYST Urine RBC 10-20 /HPF (NONE SEEN) H 01/14/21 01:58 SENIOR ACCOUNTANT ANALYST Urine WBC 10-20 /HPF (<5) H 01/14/21 01:58 SENIOR ACCOUNTANT ANALYST Ur Squamous Epith Cells <5 /HPF (NONE SEEN) 01/14/21 01:58 SENIOR ACCOUNTANT ANALYST Amorphous Sediment 2+ /HPF (NONE SEEN) H 01/14/21 01:58 SENIOR ACCOUNTANT ANALYST Urine Bacteria Loaded /HPF (<20) H 01/14/21 01:58 SENIOR ACCOUNTANT ANALYST Urine Mucus 2+ /HPF (NONE SEEN) 01/14/21 01:58 SENIOR ACCOUNTANT ANALYST Urine Culture Reflexed Not needed 01/14/21 01:58 SENIOR ACCOUNTANT ANALYST Influenza Type A RNA Negative (NEGATIVE) 01/14/21 03:00 RSV RNA (INAAT) Negative (NEGATIVE) 01/14/21 03:00 Influenza Type B RNA Negative (NEGATIVE) 01/14/21 03:00 SARS-CoV-2 RNA (RT-PCR) Negative (NEGATIVE) 01/14/21 03:00 SARS-CoV-2 Rap RNA(RT-PCR) Cancelled 01/14/21 03:00 ABO/Rh A NEGATIVE 01/14/21 04:09 Solid Phase Ab Screen Negative 01/14/21 01:50 SENIOR ACCOUNTANT ANALYST Assessment And Plan - Plan Physical exam: General: Alert, Obese HEENT: Atraumatic Neck: Supple, 2+ carotid pulse no bruit Respiratory: Clear to auscultation bilaterally, Normal air movement Cardiovascular: Regular rate/rhythm Gastrointestinal: Normal bowel sounds, Soft and benign Integumentary: Other (Bilateral lower extremity lymphedema and venous ulcerations ) Urinary: Other (Suprapubic catheter) Conclusions/Impression: Antibiotics Meropenem start: 01/14 Assessment/plan Multi-drug resistant urinary tract infection Urine culture obtained on 01/14 growing multi-drug resistant Proteus mirabilis sensitive only to meropenem. Meropenem started on 01/14 patient will need antibiotics for 7-10 days. Right arm PICC line placed on 01/17. Medical management per primary team Plan of care discussed with Dr. Hansen Thank you for consultation Physician Review Additional Text: COVID: negative CT Scan: COMPARISON: 07/03/2018. TECHNIQUE: CT ABDOMEN PELVIS WITHOUT IV CONTRAST on 01/14/2021 1:49 AM SENIOR ACCOUNTANT ANALYST This exam was performed according to our departmental dose-optimization program, which includes automated exposure control, adjustment of the mA and/or kV according to patient size and/or use of iterative reconstruction technique. FINDINGS: Lower lungs are clear. Abdomen: The liver is normal in appearance. There is no biliary dilatation. Gallbladder is normally distended. Gastric banding was performed. The pancreas and spleen are normal in appearance. Left adrenal myelolipoma measures 3.5 cm. Right adrenal gland is normal. Left kidney contains a punctate lower pole calculus and 2 mm mid pole calculus. Right kidney contains at least three calculi measuring up to 9 mm. There is no hydronephrosis bilaterally. Abdominal aorta is normal in course and caliber without aneurysm. There is no free air. There is no retroperitoneal adenopathy. Pelvis: There is no bowel obstruction. Urinary bladder contains a bulky calculus measuring 3.6 cm. There is a suprapubic Pedroza catheter in place. There is no free fluid. Uterus is normal in size. Appendix is not clearly seen. Skeleton: There are no acute osseous findings. No suspicious bony lesions. IMPRESSION: Bilateral nephrolithiasis without hydronephrosis. No definite acute inflammatory process. CXR: COMPARISON: August 2020 FINDINGS: Upper lobe vessel prominent thickening of pulmonary venous hypertension. The lungs appear clear of acute infiltrate. The heart is mildly enlarged Physical exam: General: Alert, In no apparent distress, Oriented x3, Obese HEENT: Neck supple Respiratory: Clear to auscultation bilaterally, Normal air movement Cardiovascular: Regular rate/rhythm, Normal S1 S2, No murmurs Gastrointestinal: Normal bowel sounds, Soft and benign, Non-distended, No rebound, No guarding, Tenderness Musculoskeletal: No clubbing, No swelling, No tenderness Integumentary: No rashes. Bandages to the lower extremities noted Neurological: Good range of motion to upper lower extremities. Patient with chronic lymphedema to the lower extremities. Patient with history of neuropathy and chronic pain. Lymphatics: No axilla or inguinal lymphadenopathy Impression: Recurrent UTI with history of multidrug-resistant organism and bilateral nephrolithiasis, urine culture positive for Proteus Chronic lymphedema to the lower extremities Chronic decubitus ulcer to the left buttock stage II Hypertension Chronic pain with neuropathy Hyperlipidemia Chronic diastolic CHF Morbid obesity, BMI 55 Plan: Recurrent UTI with history of multidrug-resistant organism and bilateral nephrolithiasis, urine culture positive for Proteus: Patient doing well at this time. Continue IV meropenem 1 g twice daily. PICC line in place. Patient will need 7-day treatment of IV meropenem. Currently on day 4. Continue nystatin swish and swallow 3 times a day. Continue with lactobacillus 3 times a day. Physical therapy to assess ambulation today. Will recommend bedside commode. Continue with wound care instruction. Spoke with director of social services about skilled placement. Need to make sure patient works with physical therapy today to make sure process/assessment for skilled placement is done. Anticipate approval for skilled placement within the next 24 hours. Chronic lymphedema to the lower extremities: Continue with wound care recommendations. Continue with Lasix 40 mg 1 pill twice daily. Chronic decubitus ulcer to the left buttock stage II: Continue with wound care recommendations Hypertension: Continue with metoprolol 25 mg daily. Will monitor and adjust appropriately. Hyperlipidemia: Continue with Lipitor 10 mg daily. Chronic pain with neuropathy: Continue with gabapentin 300 mg daily. Will also continue with other pain medication as needed. Physical therapy to continue to ambulate. Continue with above recommendation. Morbid obesity, BMI 55: Lifestyle modification education provided. DVT prophylaxis: Lovenox CODE STATUS: Full code Advance care planning: Await approval for skilled placement for continued IV antibiotic therapy and physical therapy.
[2021-01-18] MEDS: MORPHINE 2 MG/ML SYR IV PRN (11:44)
[2021-01-18] MEDS: ENOXAPARIN 40 MG/0.4 ML SQ SCH (18:06)
[2021-01-18] MEDS: GABAPENTIN 300 MG CAP PO SCH (20:27)
[2021-01-18] MEDS: DIPHENHYDRAMINE 25 MG TAB/CAP PO SCH (20:27)
[2021-01-18] MEDS: ATORVASTATIN 10 MG TAB PO SCH (20:27)
--- NOTE | 2021-01-19 05:53 | P.PN ---
Subjective Date of Service: 01/19/21 Primary Care Provider: Dr. Gutierrez Chief Complaint: Multi-drug resistant UTI/lower GI bleed Subjective: Improving, Doing well Physical Examination - Vital Signs Temperature: 97.4 F Blood Pressure: 131/61 Pulse: 86 Respirations: 18 Pulse Ox (%): 97 - Studies Microbiology Data (last 24 hrs): 01/14/21 04:09 Blood - Blood Aerobic Blood Culture - Final No growth in 5 days. 01/14/21 04:09 Blood - Blood Anaerobic Blood Culture - Final No growth in 5 days. 01/14/21 03:34 Blood - Blood Aerobic Blood Culture - Final No growth in 5 days. 01/14/21 03:34 Blood - Blood Anaerobic Blood Culture - Final No growth in 5 days. Assessment & Plan Discharge Plan: Other (retirement facility) Plan to discharge in: 24 Hours Physician Review Additional Text: COVID: negative CT Scan: COMPARISON: 07/03/2018. 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 FINDINGS: Lower lungs are clear. Abdomen: The liver is normal in appearance. There is no biliary dilatation. Gallbladder is normally distended. Gastric banding was performed. The pancreas and spleen are normal in appearance. Left adrenal myelolipoma measures 3.5 cm. Right adrenal gland is normal. Left kidney contains a punctate lower pole calculus and 2 mm mid pole calculus. Right kidney contains at least three calculi measuring up to 9 mm. There is no hydronephrosis bilaterally. Abdominal aorta is normal in course and caliber without aneurysm. There is no free air. There is no retroperitoneal adenopathy. Pelvis: There is no bowel obstruction. Urinary bladder contains a bulky calculus measuring 3.6 cm. There is a suprapubic Pedroza catheter in place. There is no free fluid. Uterus is normal in size. Appendix is not clearly seen. Skeleton: There are no acute osseous findings. No suspicious bony lesions. IMPRESSION: Bilateral nephrolithiasis without hydronephrosis. No definite acute inflammatory process. CXR: COMPARISON: August 2020 FINDINGS: Upper lobe vessel prominent thickening of pulmonary venous hypertension. The lungs appear clear of acute infiltrate. The heart is mildly enlarged Physical exam: General: Alert, In no apparent distress, Oriented x3, Obese HEENT: Neck supple Respiratory: Clear to auscultation bilaterally, Normal air movement Cardiovascular: Regular rate/rhythm, Normal S1 S2, No murmurs Gastrointestinal: Normal bowel sounds, Soft and benign, Non-distended, No rebound, No guarding, Tenderness Musculoskeletal: No clubbing, No swelling, No tenderness Integumentary: No rashes. Bandages to the lower extremities noted Neurological: Good range of motion to upper lower extremities. Patient with chronic lymphedema to the lower extremities. Patient with history of neuropathy and chronic pain. Lymphatics: No axilla or inguinal lymphadenopathy Impression: Recurrent UTI with history of multidrug-resistant organism and bilateral nephrolithiasis, urine culture positive for Proteus Chronic lymphedema to the lower extremities Chronic decubitus ulcer to the left buttock stage II Hypertension Chronic pain with neuropathy Hyperlipidemia Chronic diastolic CHF Morbid obesity, BMI 55 Plan: Recurrent UTI with history of multidrug-resistant organism and bilateral nephrolithiasis, urine culture positive for Proteus: Patient doing well at this time. Patient did work with physical therapy yesterday. Continue IV meropenem 1 g twice daily. PICC line in place. Patient will need 7-day treatment of IV meropenem. Currently on day 5. Continue nystatin swish and swallow 3 times a day. Continue with lactobacillus 3 times a day. Physical therapy to continue gain today. Will recommend bedside commode. Continue with wound care instruction. Anticipate approval for skilled placement within the next 24 hours. Chronic lymphedema to the lower extremities: Continue with wound care recommendations. Continue with Lasix 40 mg 1 pill twice daily. Chronic decubitus ulcer to the left buttock stage II: Continue with wound care recommendations Hypertension: Continue with metoprolol 25 mg daily. Will monitor and adjust appropriately. Hyperlipidemia: Continue with Lipitor 10 mg daily. Chronic pain with neuropathy: Continue with gabapentin 300 mg daily. Will also continue with other pain medication as needed. Physical therapy to continue to ambulate. Continue with above recommendation. Morbid obesity, BMI 55: Lifestyle modification education provided. DVT prophylaxis: Lovenox CODE STATUS: Full code Advance care planning: Await approval for skilled placement for continued IV antibiotic therapy and physical therapy. Time Spent Managing Pts Care (In Minutes): 55
[2021-01-19] MEDS: MEDIHONEY 44 ML TOPICAL TUBE TOP SCH ×2 (09:00→10:20)
--- NOTE | 2021-01-19 09:51 | P.PN ---
Subjective Date of Service: 01/19/21 Primary Care Provider: Dr. Gutierrez Chief Complaint: Multi-drug resistant UTI/lower GI bleed Patient seen examined at bedside, no acute complaints. Review of Systems 10-point ROS is otherwise unremarkable Physical Examination - Vital Signs Temperature: 97.4 F Blood Pressure: 131/61 Pulse: 86 Respirations: 18 Pulse Ox (%): 97 - Studies Laboratory Last Values WBC 11.70 K/uL (4.3-10.9) H 01/14/21 04:09 RBC 4.44 M/uL (3.86-4.86) 01/14/21 04:09 Hgb 13.3 g/dL (12.0-15.0) 01/14/21 04:09 Hct 39.6 % (36.0-45.0) 01/14/21 04:09 MCV 89.0 fL (80-100) 01/14/21 04:09 MCH 29.9 pg (27.0-35.0) 01/14/21 04:09 MCHC 33.6 g/dL (32.0-36.0) 01/14/21 04:09 RDW 16.0 % (12.1-15.2) H 01/14/21 04:09 Plt Count 235 K/uL (152-406) 01/14/21 04:09 MPV 8.8 fL (7.6-11.3) 01/14/21 04:09 Neutrophils % 78.4 % (41.7-73.7) H 01/14/21 04:09 Lymphocytes % 9.6 % (15.3-44.8) L 01/14/21 04:09 Monocytes % 9.6 % (3.3-12.3) 01/14/21 04:09 Eosinophils % 2.0 % (0-4.4) 01/14/21 04:09 Basophils % 0.4 % (0-1.3) 01/14/21 04:09 Absolute Neutrophils 9.2 K/uL (1.8-8.0) H 01/14/21 04:09 Absolute Lymphocytes 1.1 K/uL (0.7-4.9) 01/14/21 04:09 Absolute Monocytes 1.1 K/uL (0.1-1.3) 01/14/21 04:09 Absolute Eosinophils 0.2 K/uL (0-0.5) 01/14/21 04:09 Absolute Basophils 0.0 K/uL (0-0.5) 01/14/21 04:09 PT 12.9 SECONDS (9.5-12.5) H 01/14/21 01:47 [facility] INR 1.12 01/14/21 01:47 [facility] APTT 34.9 SECONDS (24.3-36.9) 01/14/21 01:47 [facility] Sodium 139 mmol/L (136-145) 01/14/21 01:47 [facility] Potassium 2.5 mmol/L (3.5-5.1) L* 01/14/21 01:47 [facility] Chloride 99 mmol/L (98-107) 01/14/21 01:47 [facility] Carbon Dioxide 32 mmol/L (21-32) 01/14/21 01:47 [facility] BUN 20 mg/dL (7-18) H 01/14/21 01:47 [facility] Creatinine 1.09 mg/dL (0.55-1.3) 01/14/21 01:47 [facility] Whole Bld Creatinine 1.1 mg/dL (0.6-1.3) 01/14/21 02:59 Estimated GFR 50 mL/min (=/>90) L 01/14/21 01:47 [facility] Glucose 124 mg/dL (74-106) H 01/14/21 01:47 [facility] Lactic Acid 1.2 mmol/L (0.4-2.0) 01/14/21 03:34 Calcium 8.9 mg/dL (8.5-10.1) 01/14/21 01:47 [facility] Magnesium 1.8 mg/dL (1.8-2.4) 01/14/21 01:47 [facility] Total Bilirubin 0.4 mg/dL (0.2-1.0) 01/14/21 01:47 [facility] Direct Bilirubin 0.1 mg/dL (0-0.2) 01/14/21 01:47 [facility] AST 6 U/L (15-37) L 01/14/21 01:47 [facility] ALT 13 U/L (12-78) 01/14/21 01:47 [facility] Alkaline Phosphatase 68 U/L (45-117) 01/14/21 01:47 [facility] Rapid Troponin I < 0.02 ng/mL (0.0-0.045) 01/14/21 01:47 [facility] NT-Pro-B Natriuret Pep 403 pg/mL (<125) H 01/14/21 01:47 [facility] Serum Total Protein 7.2 g/dL (6.4-8.2) 01/14/21 01:47 [facility] Albumin 2.3 g/dL (3.4-5.0) L 01/14/21 01:47 [facility] Globulin 4.9 g/dL (2.3-3.5) H 01/14/21 01:47 [facility] Albumin/Globulin Ratio 0.5 (1.1-1.8) L 01/14/21 01:47 [facility] Procalcitonin 0.50 ng/mL (<0.050) H 01/14/21 01:47 [facility] Urine RBC 10-20 /HPF (NONE SEEN) H 01/14/21 01:58 [facility] Urine WBC 10-20 /HPF (<5) H 01/14/21 01:58 [facility] Ur Squamous Epith Cells <5 /HPF (NONE SEEN) 01/14/21 01:58 [facility] Amorphous Sediment 2+ /HPF (NONE SEEN) H 01/14/21 01:58 [facility] Urine Bacteria Loaded /HPF (<20) H 01/14/21 01:58 [facility] Urine Mucus 2+ /HPF (NONE SEEN) 01/14/21 01:58 [facility] Urine Culture Reflexed Not needed 01/14/21 01:58 [facility] Influenza Type A RNA Negative (NEGATIVE) 01/14/21 03:00 RSV RNA (INAAT) Negative (NEGATIVE) 01/14/21 03:00 Influenza Type B RNA Negative (NEGATIVE) 01/14/21 03:00 SARS-CoV-2 RNA (RT-PCR) Negative (NEGATIVE) 01/14/21 03:00 SARS-CoV-2 Rap RNA(RT-PCR) Cancelled 01/14/21 03:00 ABO/Rh A NEGATIVE 01/14/21 04:09 Solid Phase Ab Screen Negative 01/14/21 01:50 [facility] Microbiology Data (last 24 hrs): 01/14/21 04:09 Blood - Blood Aerobic Blood Culture - Final No growth in 5 days. 01/14/21 04:09 Blood - Blood Anaerobic Blood Culture - Final No growth in 5 days. 01/14/21 03:34 Blood - Blood Aerobic Blood Culture - Final No growth in 5 days. 01/14/21 03:34 Blood - Blood Anaerobic Blood Culture - Final No growth in 5 days. Assessment And Plan - Plan Physical exam: General: Alert, Obese HEENT: Atraumatic Neck: Supple, 2+ carotid pulse no bruit Respiratory: Clear to auscultation bilaterally, Normal air movement Cardiovascular: Regular rate/rhythm Gastrointestinal: Normal bowel sounds, Soft and benign Integumentary: Other (Bilateral lower extremity lymphedema and venous ulcerations ) Urinary: Other (Suprapubic catheter) Conclusions/Impression: Antibiotics Meropenem start: 01/14 Assessment/plan Multi-drug resistant urinary tract infection Urine culture obtained on 01/14 growing multi-drug resistant Proteus mirabilis sensitive only to meropenem. Meropenem started on 01/14 patient will need antibiotics for 7-10 days. Right arm PICC line placed on 01/17. Medical management per primary team Plan of care discussed with Dr. Hansen Thank you for consultation
[2021-01-19] MEDS: METOPROLOL TAR 25 MG TAB PO SCH (10:19)
[2021-01-19] MEDS: Meropenem 1 GM/100 ML BAG IV SCH ×2 (10:19→20:17)
[2021-01-19] MEDS: CRANBERRY FRUIT EXTRACT 400 MG CAP PO SCH (10:19)
[2021-01-19] MEDS: LACTOBACILLUS/ACIDOPHILUS TAB PO SCH ×3 (10:19→20:17)
[2021-01-19] MEDS: NYSTATIN 500,000 UNIT/5 ML UDC PO SCH ×3 (10:20→20:17)
[2021-01-19] MEDS: FUROSEMIDE 40 MG TABLET PO SCH ×2 (10:20→17:17)
[2021-01-19] MEDS: ENOXAPARIN 40 MG/0.4 ML SQ SCH (17:14)
[2021-01-19] MEDS: DIPHENHYDRAMINE 25 MG TAB/CAP PO SCH (20:17)
[2021-01-19] MEDS: ATORVASTATIN 10 MG TAB PO SCH (20:17)
[2021-01-19] MEDS: GABAPENTIN 300 MG CAP PO SCH (20:17)
--- NOTE | 2021-01-20 05:49 | P.PN ---
Subjective Date of Service: 01/20/21 Primary Care Provider: Dr. Gutierrez Chief Complaint: Multi-drug resistant UTI/lower GI bleed Subjective: Improving, Doing well Physical Examination - Vital Signs Temperature: 98.1 F Blood Pressure: 106/63 Pulse: 73 Respirations: 20 Pulse Ox (%): 93 - Studies Microbiology Data (last 24 hrs): 01/14/21 04:09 Blood - Blood Aerobic Blood Culture - Final No growth in 5 days. 01/14/21 04:09 Blood - Blood Anaerobic Blood Culture - Final No growth in 5 days. 01/14/21 03:34 Blood - Blood Aerobic Blood Culture - Final No growth in 5 days. 01/14/21 03:34 Blood - Blood Anaerobic Blood Culture - Final No growth in 5 days. Assessment & Plan Discharge Plan: Other (assisted facility) Plan to discharge in: 48 Hours Physician Review Additional Text: COVID: negative CT Scan: COMPARISON: 07/03/2018. 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 FINDINGS: Lower lungs are clear. Abdomen: The liver is normal in appearance. There is no biliary dilatation. Gallbladder is normally distended. Gastric banding was performed. The pancreas and spleen are normal in appearance. Left adrenal myelolipoma measures 3.5 cm. Right adrenal gland is normal. Left kidney contains a punctate lower pole calculus and 2 mm mid pole calculus. Right kidney contains at least three calculi measuring up to 9 mm. There is no hydronephrosis bilaterally. Abdominal aorta is normal in course and caliber without aneurysm. There is no free air. There is no retroperitoneal adenopathy. Pelvis: There is no bowel obstruction. Urinary bladder contains a bulky calculus measuring 3.6 cm. There is a suprapubic Pedroza catheter in place. There is no free fluid. Uterus is normal in size. Appendix is not clearly seen. Skeleton: There are no acute osseous findings. No suspicious bony lesions. IMPRESSION: Bilateral nephrolithiasis without hydronephrosis. No definite acute inflammatory process. CXR: COMPARISON: August 2020 FINDINGS: Upper lobe vessel prominent thickening of pulmonary venous hypertension. The lungs appear clear of acute infiltrate. The heart is mildly enlarged Physical exam: General: Alert, In no apparent distress, Oriented x3, Obese HEENT: Neck supple Respiratory: Clear to auscultation bilaterally, Normal air movement Cardiovascular: Regular rate/rhythm, Normal S1 S2, No murmurs Gastrointestinal: Normal bowel sounds, Soft and benign, Non-distended, No rebound, No guarding, Tenderness Musculoskeletal: No clubbing, No swelling, No tenderness Integumentary: No rashes. Bandages to the lower extremities noted Neurological: Good range of motion to upper lower extremities. Patient with chronic lymphedema to the lower extremities. Patient with history of neuropathy and chronic pain. Lymphatics: No axilla or inguinal lymphadenopathy Impression: Recurrent UTI with history of multidrug-resistant organism and bilateral nephrolithiasis, urine culture positive for Proteus Chronic lymphedema to the lower extremities Chronic decubitus ulcer to the left buttock stage II Hypertension Chronic pain with neuropathy Hyperlipidemia Chronic diastolic CHF Morbid obesity, BMI 55 Plan: Recurrent UTI with history of multidrug-resistant organism and bilateral nephrolithiasis, urine culture positive for Proteus: Patient doing well at this time. Patient did work with physical therapy yesterday. Continue IV meropenem 1 g twice daily. PICC line in place. Patient will need 7-day treatment of IV meropenem. Currently on day 6. Continue nystatin swish and swallow 3 times a day. Continue with lactobacillus 3 times a day. Physical therapy to continue gain today. Will recommend bedside commode. Continue with wound care instruction. Anticipate approval for skilled placement within the next 24 hours. If by Friday patient remains in the hospital and has completed urine culture with repeat urine culture negative then will consider discharge on Friday Chronic lymphedema to the lower extremities: Continue with wound care recommendations. Continue with Lasix 40 mg 1 pill twice daily. Chronic decubitus ulcer to the left buttock stage II: Continue with wound care recommendations Hypertension: Continue with metoprolol 25 mg daily. Will monitor and adjust appropriately. Hyperlipidemia: Continue with Lipitor 10 mg daily. Chronic pain with neuropathy: Continue with gabapentin 300 mg daily. Will also continue with other pain medication as needed. Physical therapy to continue to ambulate. Continue with above recommendation. Morbid obesity, BMI 55: Lifestyle modification education provided. DVT prophylaxis: Lovenox CODE STATUS: Full code Advance care planning: Await approval for skilled placement for continued IV antibiotic therapy and physical therapy. If patient remains here through Friday with repeat urine culture negative then will consider discharge Friday instead of going to skilled placement Time Spent Managing Pts Care (In Minutes): 55
[2021-01-20] MEDS: METOPROLOL TAR 25 MG TAB PO SCH (09:00)
[2021-01-20] MEDS: MEDIHONEY 44 ML TOPICAL TUBE TOP SCH (09:00)
[2021-01-20] MEDS ORDERED: POTASSIUM CL SA 10 MEQ TAB PO ONE (09:00)
[2021-01-20] MEDS: Meropenem 1 GM/100 ML BAG IV SCH ×2 (09:34→20:36)
[2021-01-20] MEDS: NYSTATIN 500,000 UNIT/5 ML UDC PO SCH ×3 (09:35→20:37)
[2021-01-20] MEDS: CRANBERRY FRUIT EXTRACT 400 MG CAP PO SCH (09:37)
[2021-01-20] MEDS: LACTOBACILLUS/ACIDOPHILUS TAB PO SCH ×3 (09:37→20:36)
[2021-01-20] MEDS: FUROSEMIDE 40 MG TABLET PO SCH ×2 (09:37→17:20)
[2021-01-20] MEDS ORDERED: POTASSIUM 25 MEQ EFFERV TAB PO ONE ×2 (10:00→21:00)
--- OUTSIDE RECORDS SUMMARY | 2021-01-20 14:58 | XMS REPORT | Continuity of Care Document ---
:1955 Author Organization [facility] t Address [address] [place] [address] Care Team Providers Name Role Phone Unavailable Unavailable Unavailable Problems This patient has no known problems. Allergies, Adverse Reactions, Alerts Allergy Allergy Status Severity Reaction(s) Onset Inactive Treating Comm ents Source Name Type Date Date Clinician sulfa Adverse Active Info Not [facility] Reaction Available [facility] Rocephin Adverse [facility] Macrobid Adverse Active Info [facility] Lincocin Adverse [facility] Fentanyl Adverse [facility] Betadine Adverse [facility] Reaction Available [facility] Augmenti Adverse [facility] Reaction Available [facility] Aloe Adverse Active Info Not [facility] Vera Reaction Available [facility] Vancomyc Adverse Active [facility] Not [facility] HCl Reaction Available [facility] Medications Ordered Filled Start Stop Current Ordering Indication Dosage Frequency Signature Comments Components Source Medication Medication Date Date Medication? Clinician (SIG) Name Name Metoprolol Metoprolol Yes Na Gutierrez [address] [facility] Tartrate Tartrate 11-02 with food [facility] Doxycycline Doxycycline 2017-03 Yes Na Gutierrez [address] [facility] Hyclate [facility]clate 03-30 [facility] Metoprolol Metoprolol Yes Na Gutierrez 1/[address] [facility] Tartrate Tartrate with food [facility]anna [facility] Procedures This patient has no known procedures. Encounters Start End Encounter Admission Attending Care Care Encounter Source Date/Time Date/Time Type Type Clinicians Facility Department ID 2021-01-01 2021-01-01 [id number] 2020-12-19 2020-12-19 [facility] [id number] [facility] 2020-10-26 2020-10-26 [facility] [id number] [facility] 2020-10-26 2020-10-26 [facility] [id number] [facility] 2020-10-19 2020-10-19 [facility] [id number] [facility] 2020-10-11 2020-10-11 Out[facility] [id number] [facility] 2020-09-27 2020-09-27 Out[facility] [id number] [facility] 2020-09-27 2020-09-27 Outpatient [facility] [id number] [facility] 2020-09-22 2020-09-22 Out[facility] [id number] [facility] 2020-08-15 2020-08-15 Outpatient [facility] [id number] [facility] 2020-07-21 2020-07-21 Outpatient [facility] [id number] [facility] 2020-07-03 2020-07-03 Outpatient [facility] [id number] [facility] 2020-06-30 2020-06-30 Outpatient [facility] [id number] [facility] 2020-06-30 2020-06-30 Outpatient [facility] [id number] [facility] 2020-06-27 2020-06-27 Outpatient [facility] [id number] [facility] 2020-06-07 2020-06-07 Outpatient [facility] [id number] [facility] 2020-05-29 2020-05-29 Outpatient [facility] [id number] [facility] 2020-05-23 2020-05-23 Outpatient [facility] [id number] [facility] 2020-05-11 2020-05-11 Outpatient [facility] [id number] [facility] 2020-05-07 2020-05-07 Outpatient [facility] [id number] [facility] 2020-05-04 2020-05-04 Outpatient [facility] [id number] [facility] 2020-04-19 2020-04-19 Outpatient [facility] [id number] [facility] 2020-04-04 2020-04-04 Out[facility] [id number] [facility] 2020-02-04 2020-02-04 Outpatient [facility] [id number] [facility] 2020-02-01 2020-02-01 Outpatient [facility] [id number] [facility] 2020-01-05 2020-01-05 Outpatient [facility] [id number] [facility] 2019-12-20 2019-12-20 Outpatient [facility] [id number] [facility] 2019-12-19 2019-12-19 Outpatient [facility] [id number] [facility] 2019-12-17 2019-12-17 Outpatient [facility] [id number] [facility] 2019-11-03 2019-11-03 [facility] [id number] [facility] 10[facility]19:00 10:19:00 [facility] [employer] [facility] 2019-10-06 2019-10-06 [facility] [id number] [facility] 16[facility]47:00 16:47:00 [facility] [place] [employer] [facility] 2019-09-30 2019-09-30 [facility] [id number] [facility] 14[facility]56:00 14:56:00 [facility] [employer] [facility] Medicine Medicine Outpati ent Clinics 2019-09-14 2019-09-14 [facility] [id number] [facility] 13:55:00 13:55:00 [facility] [employer] [facility] l Medicine Outpati ent Clinics 2019-08-12 2019-08-12 [facility] [id number] [facility] 11:39:00 11:39:00 [facility] [employer] [employer] [facility] Medicine Outpat[facility] ent Clinics 2019-07-09 2019-07-09 [facility] [id number] [facility] 11:26:00 11:26:00 [facility] [employer] [employer] [facility] Outpat[facility] ent Clinics 2019-07-06 2019-07-06 [facility] [id number] [facility] 14:00:00 14:00:00 [facility] Medicine Outpat[facility] ent Clinics 2019-06-11 2019-06-11 [facility] [id number] [facility] 10:29:00 10:29:00 [facility] [employer] [employer] [facility] Medicine l Medicine Outpati ent Clinics 2019-06-08 2019-06-08 [facility] [id number] [facility] 10:57:00 10:57:00 [facility] l Medicine Outpati ent Clinics 2019-05-24 2019-05-24 [facility] [id number] [facility] 14:44:00 14:44:00 [facility] Medicine Outpati ent Clinics 2019-04-12 2019-04-12 [facility] [id number] [facility] 10:58:00 10:58:00 [facility] [employer] [employer] [facility] Medicine Outpati ent Clinics 2019-04-08 2019-04-08 [facility] [id number] [facility] 17:13:00 17:13:00 [facility] [employer] [employer] [facility] Medicine Outpati ent Clinics 2019-03-26 2019-03-26 [facility] [id number] [facility] 07:58:00 07:58:[address] [facility] - [facility] Medicine l Medicine Outpati ent Clinics 2019-02-01 2019-02-01 [facility] [id number] [facility] 10:49:00 10:49:[address] [facility] - [address] [facility] l Medicine Outpati ent Clinics 2019-01-21 2019-01-21 [facility] [id number] [facility] 12:09:00 12:09:[address] [facility] - [facility] Medicine l Medicine Outpati ent Clinics 2018-12-31 2018-12-31 [facility] [id number] [facility] 13:40:00 13:40:[address] [facility] - [address] [facility] Medicine Outpati ent Clinics 2018-12-24 2018-12-24 [facility] [id number] [facility] 16:51:00 16:51:00 [facility] [email or web address] [facility] - [facility] Medicine Outpati ent Clinics 2018-12-22 2018-12-22 [facility] [id number] [facility] 10:09:00 10:09:[address] [facility] - [address] [facility] Medicine Outpati ent Clinics 2018-12-16 2018-12-16 [facility] [id number] [facility] 13:32:00 13:32:00 [facility] [email or web address] [facility] - [facility] Medicine Outpati ent Clinics 2018-12-09 2018-12-09 [facility] [id number] [facility] 15:07:00 15:07:[address] [facility] - [address] [facility] Medicine Medicine Outpati ent Clinics 2018-12-08 2018-12-08 [facility] [id number] [facility] 09:21:00 09:21:[address] [facility] - [facility] Medicine Outpati ent Clinics 2018-12-07 2018-12-07 [facility] [id number] [facility] 15:10:00 15:10:[address] [facility] - [facility] Medicine Outpati ent Clinics 2018-10-29 2018-10-29 [facility] [id number] [facility] 11:00:00 11:00:00 [facility] [email or web address] [facility] - [facility] Medicine Outpati ent Clinics 2018-10-20 2018-10-20 [facility] [id number] [facility] 13:23:00 13:23:00 [facility] [employer] [employer] - [facility] Medicine Outpati ent Clinics 2018-10-05 2018-10-05 [facility] [id number] 16:27:00 16:27:00 [facility] [place] [employer] - [address] [facility] Medicine Outpati ent Clinics 2018-09-25 2018-09-25 [facility] [id number] 16:15:00 16:15:00 [facility] [place] [employer] - [facility] Medicine Outpati ent Clinics 2018-09-23 2018-09-23 [facility] [id number] 15:54:00 15:54:00 [facility] [place] [employer] - [facility] Medicine Outpati ent Clinics 2018-08-27 2018-08-27 [facility] [id number] [facility] 16:00:00 16:00:00 [facility] [place] [employer] - [facility] Medicine Outpati ent Clinics 2018-08-25 2018-08-25 [facility] [id number] [facility] 15:20:00 15:20:00 [facility] Medicine Outpati ent Clinics Results This patient has no known results.
[2021-01-20] MEDS: ENOXAPARIN 40 MG/0.4 ML SQ SCH (17:20)
[2021-01-20] MEDS: DIPHENHYDRAMINE 25 MG TAB/CAP PO SCH (20:35)
[2021-01-20] MEDS: ATORVASTATIN 10 MG TAB PO SCH (20:36)
[2021-01-20] MEDS: GABAPENTIN 300 MG CAP PO SCH (20:37)
--- NOTE | 2021-01-21 05:52 | P.PN ---
Subjective Date of Service: 01/21/21 Primary Care Provider: Dr. Gutierrez Chief Complaint: Multi-drug resistant UTI/lower GI bleed Subjective: Improving, Doing well Physical Examination - Vital Signs Temperature: 98.1 F Blood Pressure: 104/53 Pulse: 60 Respirations: 18 Pulse Ox (%): 95 Assessment & Plan Discharge Plan: Home Plan to discharge in: 24 Hours Physician Review Additional Text: COVID: negative CT Scan: COMPARISON: 07/03/2018. 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 FINDINGS: Lower lungs are clear. Abdomen: The liver is normal in appearance. There is no biliary dilatation. Gallbladder is normally distended. Gastric banding was performed. The pancreas and spleen are normal in appearance. Left adrenal myelolipoma measures 3.5 cm. Right adrenal gland is normal. Left kidney contains a punctate lower pole calculus and 2 mm mid pole calculus. Right kidney contains at least three calcul i measuring up to 9 mm. There is no hydronephrosis bilaterally. Abdominal aorta is normal in course and caliber without aneurysm. There is no free air. There is no retroperitoneal adenopathy. Pelvis: There is no bowel obstruction. Urinary bladder contains a bulky calculus measuring 3.6 cm. There is a suprapubic Pedroza catheter in place. There is no free fluid. Uterus is normal in size. Appendix is not clearly seen. Skeleton: There are no acute osseous findings. No suspicious bony lesions. IMPRESSION: Bilateral nephrolithiasis without hydronephrosis. No definite acute inflammatory process. CXR: COMPARISON: August 2020 FINDINGS: Upper lobe vessel prominent thickening of pulmonary venous hypertension. The lungs appear clear of acute infiltrate. The heart is mildly enlarged Physical exam: General: Alert, In no apparent distress, Oriented x3, Obese HEENT: Neck supple Respiratory: Clear to auscultation bilaterally, Normal air movement Cardiovascular: Regular rate/rhythm, Normal S1 S2, No murmurs Gastrointestinal: Normal bowel sounds, Soft and benign, Non-distended, No rebound, No guarding, Tenderness Musculoskeletal: No clubbing, No swelling, No tenderness Integumentary: No rashes. Bandages to the lower extremities noted Neurological: Good range of motion to upper lower extremities. Patient with chronic lymphedema to the lower extremities. Patient with history of neuropathy and chronic pain. Lymphatics: No axilla or inguinal lymphadenopathy Impression: Recurrent UTI with history of multidrug-resistant organism and bilateral nephrolithiasis, urine culture positive for Proteus Chronic lymphedema to the lower extremities Chronic decubitus ulcer to the left buttock stage II Hypertension Chronic pain with neuropathy Hyperlipidemia Chronic diastolic CHF Morbid obesity, BMI 55 Plan: Recurrent UTI with history of multidrug-resistant organism and bilateral nephrolithiasis, urine culture positive for Proteus: Patient doing well at this time. Patient on day 7 of antibiotic therapyIV meropenem. Repeat urine culture shows mixed delmy. No evidence of Proteus noted. Patient does not want to go to a skilled facility. Therefore we will plan on discharging the patient this afternoon. Recommend to continue UTI prevention. Patient with suprapubic catheter. Recommend follow-up with urology as an outpatient to further monitor her condition. Chronic lymphedema to the lower extremities: Continue with wound care recommendations. Continue with Lasix 40 mg 1 pill twice daily. Chronic decubitus ulcer to the left buttock stage II: Continue with wound care recommendations Hypertension: Continue with metoprolol 25 mg daily. Will monitor and adjust appropriately. Hyperlipidemia: Continue with Lipitor 10 mg daily. Chronic pain with neuropathy: Continue with gabapentin 300 mg daily. Will also continue with other pain medication as needed. Physical therapy to continue to ambulate. Continue with above recommendation. Morbid obesity, BMI 55: Lifestyle modification education provided. DVT prophylaxis: Lovenox CODE STATUS: Full code Advance care planning: Patient has completed IV antibiotic therapy. Patient does not want to go to a skilled facility. We will plan on discharge home today. Time Spent Managing Pts Care (In Minutes): 55
[2021-01-21 06:14] LABS: Potassium 3.5 mmol/L (3.5-5.1)
--- NOTE | 2021-01-21 08:17 | P.DS ---
Admission Date: 01/14/21 Discharge Date: 01/21/21 Primary Care Provider: Dr. Gutierrez Disposition: DC HOME/HOME HEALTH CARE Discharge Condition: GOOD Reason for Admission: Multi-drug resistant UTI/lower GI bleed Consultations: Surgery-Dr. Valle Infectious disease-Dr. Hansen Procedures: COVID: negative CT Scan: COMPARISON: 07/03/2018. 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 FINDINGS: Lower lungs are clear. Abdomen: The liver is normal in appearance. There is no biliary dilatation. Gallbladder is normally distended. Gastric banding was performed. The pancreas and spleen are normal in appearance. Left adrenal myelolipoma measures 3.5 cm. Right adrenal gland is normal. Left kidney contains a punctate lower pole calculus and 2 mm mid pole calculus. Right kidney contains at least three calculi measuring up to 9 mm. There is no hydronephrosis bilaterally. Abdominal aorta is normal in course and caliber without aneurysm. There is no free air. There is no retroperitoneal adenopathy. Pelvis: There is no bowel obstruction. Urinary bladder contains a bulky calculus measuring 3.6 cm. There is a suprapubic Pedroza catheter in place. There is no free fluid. Uterus is normal in size. Appendix is not clearly seen. Skeleton: There are no acute osseous findings. No suspicious bony lesions. IMPRESSION: Bilateral nephrolithiasis without hydronephrosis. No definite acute inflammatory process. CXR: COMPARISON: August 2020 FINDINGS: Upper lobe vessel prominent thickening of pulmonary venous hypertension. The lungs appear clear of acute infiltrate. The heart is mildly enlarged Medical Problem List: Recurrent UTI with history of multidrug-resistant organism and bilateral nephrolithiasis, urine culture positive for Proteus Chronic lymphedema to the lower extremities Chronic decubitus ulcer to the left buttock stage II Hypertension Chronic pain with neuropathy Hyperlipidemia Chronic diastolic CHF Morbid obesity, BMI 55 Brief History of Present Illness: 65-year-old female with history of recurrent resistant UTI and suprapubic catheter. Patient presented with fatigue. Patient also had reported some possible blood in her stool but this was related to her chronic lymphedema wounds. Patient was admitted for further evaluation and treatment. Hospital Course: Patient was evaluated for recurrent UTI. Patient with history of multidrug- resistant organism and bilateral nephrolithiasis. Patient found to have urine culture positive for Proteus. Patient was started on IV meropenem. Patient required 7-day treatment. Patient has completed 7 days of meropenem. Patient was evaluated for possible skilled placement but since the patient has completed her treatment patient prefers to go home. At discharge continue with UTI prevention. Patient has suprapubic catheter in place. Recommend to replace catheter every month. Patient will continue with cranberry 1 pill daily and folic acid 1 mg daily. Recommend follow-up with urology as an outpatient to further address her conditionrecurrent UTI and bilateral nephrolithiasis. Patient may require intervention for her bilateral nephrolithiasis. This can be further addressed with urology. Education on UTI prevention provided. Patient with chronic lymphedema to the lower extremity. Patient with chronic decubitus ulcer to the left buttock stage II. Patient was seen by wound care. Wound care instructions were provided. At discharge she will continue with wound care. Patient also wants to continue with SkinTegrity ointment. Patient was evaluated by surgery as there was some suspicion of GI bleed. There was no GI bleed. Bleeding came from her chronic wounds. Hemoglobin stable. No need for intervention. At discharge patient will continue with Lasix 40 mg 1 pill twice daily. Recommend to recheck labBMP in 1 week to monitor her progress. Recommend follow-up at the wound care center in 1 week to follow-up her care and continue her chronic wound care. Patient may also follow-up at the lymphedema clinic in [facility] to further address her condition. Patient with hypertension. Overall stable. At discharge patient will continue with metoprolol 25 mg daily. Recommend to maintain blood pressure less than 130/80. Further adjustment can be done by her PCP. Patient with hyperlipidemia. At discharge patient will continue with lovastatin 20 mg mg daily. Patient with chronic pain with neuropathy. At discharge patient will continue with gabapentin 300 mg daily. Recommend to continue home health and physical therapy at discharge. Fall precaution in place. Patient may require pain management referral as an outpatient to further address her pain. Patient may continue with Benadryl 25 mg at bedtime as needed for insomnia. Patient with morbid obesity. BMI 55. Lifestyle modification education provided. Vital Signs/Physical Exam: Temp Pulse Resp BP Pulse Ox 98.1 F 60 18 104/53 L 95 01/21/21 08:15 01/21/21 08:15 01/21/21 08:15 01/21/21 08:15 01/21/21 08:15 General: Alert, In no apparent distress, Oriented x3, Cooperative HEENT: Atraumatic Neck: Supple Respiratory: Clear to auscultation bilaterally, Normal air movement Cardiovascular: Normal pulses, Regular rate/rhythm Gastrointestinal: Normal bowel sounds, No tenderness, No masses, No rebound, No guarding Musculoskeletal: Other (Lower extremities bandaged) Neurological: Normal speech, Normal strength at 5/5 x4 extr, Normal tone, Normal affect Laboratory Data at Discharge: WBC 9.10 K/uL (4.3-10.9) 01/18/21 05:30 Hgb 12.0 g/dL (12.0-15.0) 01/18/21 05:30 Hct 36.5 % (36.0-45.0) 01/18/21 05:30 Plt Count 335 K/uL (152-406) 01/18/21 05:30 PT 14.8 SECONDS (9.5-12.5) H 01/15/21 05:01 INR 1.28 01/15/21 05:01 APTT 33.7 SECONDS (24.3-36.9) 01/15/21 05:01 Sodium 141 mmol/L (136-145) 01/18/21 05:30 Potassium 3.5 mmol/L (3.5-5.1) 01/21/21 05:09 BUN 9 mg/dL (7-18) 01/18/21 05:30 Creatinine 0.75 mg/dL (0.55-1.3) 01/18/21 05:30 Glucose 125 mg/dL (74-106) H 01/18/21 05:30 Magnesium 2.0 mg/dL (1.8-2.4) 01/21/21 05:09 Total Bilirubin 0.5 mg/dL (0.2-1.0) 01/15/21 05:01 AST 8 U/L (15-37) L 01/15/21 05:01 ALT 8 U/L (12-78) L 01/15/21 05:01 Alkaline Phosphatase 56 U/L (45-117) 01/15/21 05:01 Home Medications: Lovastatin 1 tab PO BEDTIME 12/15/17 Metoprolol Tartrate [Lopressor*] 1 tab PO DAILY 09/16/19 Medihoney [Medihoney Woundcare Gel*] 1 appl TOP DAILY #1 tube 09/11/20 Cranberry Fruit Extract/Vit C [Azo Cranberry Softgel] 1 each PO DAILY 01/14/21 Diphenhydramine [Benadryl*] 25 mg PO BEDTIME 01/14/21 Furosemide [Lasix*] 40 mg PO BIDL 01/14/21 Gabapentin 300 mg PO BEDTIME 01/14/21 Folic Acid 1 mg PO DAILY #90 tablet 01/21/21 Lactobacillus Acidophilus [Acidophilus Lactobacilli] 1 each PO TID #30 capsule 01/21/21 New Medications: Lactobacillus Acidophilus [Acidophilus Lactobacilli] 1 each PO TID #30 capsule Folic Acid 1 mg PO DAILY #90 tablet Physician Discharge Instructions: Patient was evaluated for recurrent UTI. Patient with history of multidrug- resistant organism and bilateral nephrolithiasis. Patient found to have urine culture positive for Proteus. Patient was started on IV meropenem. Patient required 7-day treatment. Patient has completed 7 days of meropenem. Patient was evaluated for possible skilled placement but since the patient has completed her treatment patient prefers to go home. At discharge continue with UTI prevention. Patient has suprapubic catheter in place. Recommend to replace catheter every month. Patient will continue with cranberry 1 pill daily and folic acid 1 mg daily. Recommend follow-up with urology as an outpatient to further address her conditionrecurrent UTI and bilateral nephrolithiasis. Patient may require intervention for her bilateral nephrolithiasis. This can be further addressed with urology. Education on UTI prevention provided. Patient with chronic lymphedema to the lower extremity. Patient with chronic decubitus ulcer to the left buttock stage II. Patient was seen by wound care. Wound care instructions were provided. At discharge she will continue with wound care. Patient also wants to continue with SkinTegrity ointment. Patient was evaluated by surgery as there was some suspicion of GI bleed. There was no GI bleed. Bleeding came from her chronic wounds. Hemoglobin stable. No need for intervention. At discharge patient will continue with Lasix 40 mg 1 pill twice daily. Recommend to recheck labBMP in 1 week to monitor her progress. Recommend follow-up at the wound care center in 1 week to follow-up her care and continue her chronic wound care. Patient may also follow-up at the lymphedema clinic in [facility] to further address her condition. Patient with hypertension. Overall stable. At discharge patient will continue with metoprolol 25 mg daily. Recommend to maintain blood pressure less than 130/80. Further adjustment can be done by her PCP. Patient with hyperlipidemia. At discharge patient will continue with lovastatin 20 mg mg daily. Patient with chronic pain with neuropathy. At discharge patient will continue with gabapentin 300 mg daily. Recommend to continue home health and physical therapy at discharge. Fall precaution in place. Patient may require pain management referral as an outpatient to further address her pain. Patient may continue with Benadryl 25 mg at bedtime as needed for insomnia. Patient with morbid obesity. BMI 55. Lifestyle modification education provided. Diet: AHA Activity: Fall precautions Followup: Tho Valle MD [ACTIVE - CAN ADMIT] - NONE,NONE [Primary Care Provider] - Time spent managing pt's care (in minutes): 55
[2021-01-21] MEDS: MEDIHONEY 44 ML TOPICAL TUBE TOP SCH (09:00)
[2021-01-21] MEDS ORDERED: POTASSIUM CL SA 10 MEQ TAB PO ONE (09:00)
[2021-01-21] MEDS: NYSTATIN 500,000 UNIT/5 ML UDC PO SCH ×2 (09:00→15:44)
[2021-01-21] MEDS: METOPROLOL TAR 25 MG TAB PO SCH (09:01)
[2021-01-21] MEDS: LACTOBACILLUS/ACIDOPHILUS TAB PO SCH ×2 (09:01→15:44)
[2021-01-21] MEDS: FUROSEMIDE 40 MG TABLET PO SCH (09:06)
[2021-01-21] MEDS: CRANBERRY FRUIT EXTRACT 400 MG CAP PO SCH (09:10)
[2021-01-21] MEDS: Meropenem 1 GM/100 ML BAG IV SCH (09:10)
[2021-01-21] MEDS: HYDROCODONE/APAP 7.5/325 MG TAB PO PRN (15:43)
[2021-01-21 16:34] VITALS: O2SAT 95
[2021-01-21 16:41] VITALS: BP 111/56; TEMP 97.9
== END 2021-01-21 19:36 | disposition home health service (06) | DRG 690 ==
LOC: ER 01:37 → ERHOLD 07:28 → 2ND 09:12
PROVIDERS: ADMIT Hospitalist; ATTEND Family Medicine
PROC: 02HV33Z Insertion of Infusion Device into Superior Vena Cava, Percutaneous Approach (ICD-10-PCS; principal; 2021-01-16)
DX: N39.0 Urinary tract infection, site not specified (principal); N17.9 Acute kidney failure, unspecified; Z68.43 Body mass index [BMI] 50.0-59.9, adult; Z16.24 Resistance to multiple antibiotics; I50.32 Chronic diastolic (congestive) heart failure; I11.0 Hypertensive heart disease with heart failure; E66.01 Morbid (severe) obesity due to excess calories; L89.322 Pressure ulcer of left buttock, stage 2; J44.9 Chronic obstructive pulmonary disease, unspecified; E78.5 Hyperlipidemia, unspecified; G89.29 Other chronic pain; F17.210 Nicotine dependence, cigarettes, uncomplicated; I25.10 Atherosclerotic heart disease of native coronary artery without angina pectoris; M79.7 Fibromyalgia; I89.0 Lymphedema, not elsewhere classified; N20.0 Calculus of kidney; G62.9 Polyneuropathy, unspecified; B96.4 Proteus (mirabilis) (morganii) as the cause of diseases classified elsewhere; Z88.1 Allergy status to other antibiotic agents; Z88.7 Allergy status to serum and vaccine; Z91.018 Allergy to other foods; Z91.048 Other nonmedicinal substance allergy status; Z88.5 Allergy status to narcotic agent; Z79.899 Other long term (current) drug therapy; Z88.8 Allergy status to other drugs, medicaments and biological substances; Z20.822 Contact with and (suspected) exposure to COVID-19
CPT/HCPCS: 0241U; 36415; 36569; 71045; 74176; 80048; 80053; 80076; 81015; 82565; 83605; 83735; 83880; 84132; 84145; 84484; 85025; 85610; 85730; 86850; 86900; 86901; 87040; 87077; 87086; 87088; 87186; 93005; 97161; 97530; 99285; J1650; J2185; J2270; J2405; J3010; J3475; J3480; J7030; J7040; J7050

== ENCOUNTER 2021-01-31 15:23 | Inpatient (IN) | payer OTHER ==
--- OUTSIDE RECORDS SUMMARY | 2021-01-31 15:27 | XMS REPORT | Continuity of Care Document ---
:1955 Author Organization [facility] t Address [address] [place] [address] Care Team Providers Name Role Phone Unavailable Unavailable Unavailable Problems This patient has no known problems. Allergies, Adverse Reactions, Alerts Allergy Allergy Status Severity Reaction(s) Onset Inactive Treating Comm ents Source Name Type Date Date Clinician sulfa Adverse Active Info Not [facility] Reaction Available [facility] Rocephin Adverse Active Info Not [facility] Reaction Available [facility] Macrobid Adverse Active Info Not [facility] Reaction Available [facility] Lincocin Adverse Active Info Not [facility] Reaction Available [facility] Fentanyl Adverse Active Info Not [facility] Reaction Available [facility] Betadine Adverse Active Info Not [facility] Reaction Available [facility] Augmenti Adverse Active Info Not [facility] n Reaction Available [facility] Aloe Adverse Active Info Not [facility] Vera Reaction Available [facility] Vancomyc Adverse Active Info Not [facility] in HCl Reaction Available [facility] Medications Ordered Filled Start Stop Current Ordering Indication Dosage Frequency Signature Comments Components Source Medication Medication Date Date Medication? Clinician (SIG) Name Name Metoprolol Metoprolol Yes Na Gutierrez [address] [facility] Tartrate Tartrate 8-26 with food Sanna kes - 00:00: [facility] 00 [facility] Doxycycline Doxycycline 2017-03 Yes Na Gutierrez [address] [facility] Hyclate Hyclate [facility] Metoprolol Metoprolol Yes Na Gutierrez 1/[address] [facility] Tartrate Tartrate with food Sanna kes - [facility] Procedures This patient has no known procedures. Encounters Start End Encounter Admission Attending Care Care Encounter Source Date/Time Date/Time Type Type Clinicians Facility Department ID 2021-01-01 2021-01-01 Outpatient [facility] [id number] [facility] 2020-12-19 2020-12-19 [facility] [id number] [facility] 2020-10-26 2020-10-26 Out[facility] [id number] [facility] 2020-10-26 2020-10-26 [facility] [id number] [facility] 2020-10-19 2020-10-19 Out[facility] [id number] [facility] 2020-10-11 2020-10-11 Out[facility] [id number] [facility] 2020-09-27 2020-09-27 Out[facility] [id number] [facility] 2020-09-27 2020-09-27 Out[facility] [id number] [facility] 2020-09-22 2020-09-22 Outpatient [facility] [id number] [facility] 2020-08-15 2020-08-15 Out[facility] [id number] [facility] 2020-07-21 2020-07-21 Out[facility] [id number] [facility] 2020-07-03 2020-07-03 Out[facility] [id number] [facility] 2020-06-30 2020-06-30 Out[facility] [id number] [facility] 2020-06-30 2020-06-30 Out[facility] [id number] [facility] 2020-06-27 2020-06-27 Outpatient [facility] [id number] [facility] 2020-06-07 2020-06-07 Out[facility] [id number] [facility] 2020-05-29 2020-05-29 Outpatient [facility] [id number] [facility] 2020-05-23 2020-05-23 Out[facility] [id number] [facility] 2020-05-11 2020-05-11 Outpatient [facility] [id number] [facility] 2020-05-07 2020-05-07 Out[facility] [id number] [facility] 2020-05-04 2020-05-04 Out[facility] [id number] [facility] 2020-04-19 2020-04-19 Out[facility] [id number] [facility] 2020-04-04 2020-04-04 Out[facility] [id number] [facility] 2020-02-04 2020-02-04 Out[facility] [id number] [facility] 2020-02-01 2020-02-01 Outpatient [facility] [id number] [facility] 2020-01-05 2020-01-05 Outpatient [facility] [id number] [facility] 2019-12-20 2019-12-20 Outpatient [facility] [id number] [facility] 2019-12-19 2019-12-19 Outpatient [facility] [id number] [facility] 2019-12-17 2019-12-17 Outpatient [facility] [id number] [facility] 2019-11-03 2019-11-03 [facility] [id number] [facility] 10:19:00 10:19:00 [place] [employer] s - Drive [facility] Family Medicine l Medicine Outpati ent Clinics 2019-10-06 2019-10-06 [facility] [id number] [facility] 16:47:00 16:47:00 [facility] [place] [employer] s - Drive [facility] Family Medicine l Medicine Outpati ent Clinics 2019-09-30 2019-09-30 [facility] [id number] [facility] 14:56:00 14:56:[address] [employer] [address] - Drive [facility] Clin[facility] 2019-09-14 2019-09-14 [facility] [id number] [facility] 13:55:00 13:55:00 [place] [email or web address] [facility] - Drive [facility] Medicine l Medicine Outpati ent Clinics 2019-08-12 2019-08-12 [facility] [id number] [facility] 11:39:00 11:39:00 [place] [employer] s - Drive [facility] Medicine l Medicine Outpati ent Clinics 2019-07-09 2019-07-09 [facility] [id number] [facility] 11:26:00 11:26:00 [place] [employer] s - Drive [facility] Medicine l Medicine Outpati ent Clinics 2019-07-06 2019-07-06 [facility] [id number] [facility] 14:00:00 14:00:00 [place] [employer] s - Drive [facility] Medicine l Medicine Outpati ent Clinics 2019-06-11 2019-06-11 [facility] [id number] [facility] 10:29:00 10:29:00 [place] [employer] s - Drive [facility] Medicine l Medicine Outpati ent Clinics 2019-06-08 2019-06-08 [facility] [id number] [facility] 10[facility]57:00 10:57:00 [place] [employer] s - Drive [facility] Medicine l Medicine Outpati ent Clinics 2019-05-24 2019-05-24 [facility] [id number] [facility] 14:44:00 14:44:00 [place] [employer] s - Drive [facility] Medicine l Medicine Outpati ent Clinics 2019-04-12 2019-04-12 [facility] [id number] [facility] 10:58:00 10:58:00 [place] [employer] s - Drive [facility] Medicine l Medicine Outpati ent Clinics 2019-04-08 2019-04-08 [facility] [id number] [facility] 17:13:00 17:13:00 [place] [employer] s - Drive [facility] Medicine l Medicine Outpati ent Clinics 2019-03-26 2019-03-26 [facility] [id number] [facility] 07:58:00 07:58:[address] [place] [address] - [address] [facility] Medicine Medicine Outpati ent Clinics 2019-02-01 2019-02-01 [facility] [id number] [facility] 10:49:00 10:49:00 [place] [employer] [place] s - Drive [facility] l Medicine Outpati ent Clinics 2019-01-21 2019-01-21 [facility] [id number] [facility] 12:09:00 12:09:00 [place] [employer] [place] s - Drive [facility] Medicine Outpati ent Clinics 2018-12-31 2018-12-31 [facility] [id number] [facility] 13:40:00 13:40:00 [place] [employer] s - Drive [facility] Medicine Outpati ent Clinics 2018-12-24 2018-12-24 [facility] [id number] [facility] 16:51:00 16:51:00 [place] [employer] s - Drive [facility] Medicine Outpati ent Clinics 2018-12-22 2018-12-22 [facility] [id number] [facility] 10:09:00 10:09:00 [place] [employer] s - Drive [facility] Medicine Outpati ent Clinics 2018-12-16 2018-12-16 [facility] [id number] [facility] 13:32:00 13:32:00 [place] [employer] s - Drive [facility] Medicine Outpati ent Clinics 2018-12-09 2018-12-09 [facility] [id number] [facility] 15:07:00 15:07:00 [place] [employer] s - Drive [facility] Medicine Medicine Outpati ent Clinics 2018-12-08 2018-12-08 [facility] [id number] [facility] 09:21:00 09:21:00 [place] [employer] s - Drive [facility] Medicine Outpati ent Clinics 2018-12-07 2018-12-07 [facility] [id number] [facility] 15:10:00 15:10:00 [place] [employer] s - Drive [facility] Medicine Outpati ent Clinics 2018-10-29 2018-10-29 [facility] [id number] [facility] 11:00:00 11:00:00 [place] [employer] s - Drive [facility] Medicine Outpati ent Clinics 2018-10-20 2018-10-20 [facility] [id number] [facility] 13:23:00 13:23:00 [place] [employer] s - Drive [facility] Medicine Outpati ent Clinics 2018-10-05 2018-10-05 [facility] [id number] [facility] 16:27:00 16:27:00 [place] [employer] s - Drive [facility] Medicine Outpati ent Clinics 2018-09-25 2018-09-25 [facility] [id number] [facility] 16:15:00 16:15:00 [place] [employer] s - Drive [facility] Medicine Outpati ent Clinics 2018-09-23 2018-09-23 [facility] [id number] 15:54:00 15:54:00 [place] [employer] s - Drive [facility] Medicine Outpati ent Clinics 2018-08-27 2018-08-27 [facility] [id number] [facility] 16:00:00 16:00:00 [place] [employer] s - Drive [facility] Medicine Outpati ent Clinics 2018-08-25 2018-08-25 [facility] [id number] [facility] 15:20:00 15:20:00 [place] [employer] s - Drive [facility] Medicine Outpati ent Clinics Results This patient has no known results.
[2021-01-31] MEDS ORDERED: METHYLPREDNISOLONE 125 MG INJ ONE (16:29)
[2021-01-31] MEDS ORDERED: IPRATROPIUM BROM 0.5MG/2.5ML ONE (16:30)
[2021-01-31] MEDS ORDERED: LEVALBUTEROL 1.25 MG/3 ML NEB ONE ×2 (16:30→16:34)
--- NOTE | 2021-01-31 16:34 | RAD REPORT ---
EXAM DESCRIPTION: RAD - Chest Single View - 01/31/2021 4:17 pm CLINICAL HISTORY: DYSPNEA Chest pain. COMPARISON: Chest Single View dated 01/17/2021; Chest Single View dated 01/14/2021; Chest Single View dated 09/06/2020; Chest Single View dated 09/20/2019 FINDINGS: Portable technique limits examination quality. Mild bilateral interstitial lung opacities are present bilaterally which may represent interstitial p ulmonary edema or a viral infection. The heart is upper limit normal in size. No displaced fractures.
[2021-01-31 16:38] LABS: Arterial Blood Carboxyhemoglob 3.3 % (0-1.5); Blood Gas Oxyhemoglobin 93.2 % (94-97); Blood O2 Saturation 97.2 % (92-98.5)
[2021-01-31 17:15] LABS: Absolute Lymphocytes (CBC) 1.3 K/uL (0.7-4.9); Basophils % 0.7 % (0-1.3); Hematocrit 38.2 % (36.0-45.0); Lymphocytes % 17.8 % (15.3-44.8); MPV 8.4 fL (7.6-11.3); RBC Red Blood Cell Count 4.25 M/uL (3.86-4.86)
[2021-01-31 17:16] LABS: Protime INR 1.04
[2021-01-31 17:35] LABS: ALT/SGPT 11 U/L (12-78); AST/SGOT 10 U/L (15-37); Albumin 2.7 g/dL (3.4-5.0); Alkaline Phosphatase 81 U/L (45-117); BUN Blood Urea Nitrogen 11 mg/dL (7-18); Bicarbonate 33 mmol/L (21-32); Bilirubin Direct 0.1 mg/dL (0-0.2); Bilirubin Total 0.4 mg/dL (0.2-1.0); Glucose Level 114 mg/dL (74-106); NT PRO-BNP 342 pg/mL (<125); Potassium 3.5 mmol/L (3.5-5.1); Protein, Total 7.7 g/dL (6.4-8.2); Sodium Level 141 mmol/L (136-145); Troponin (Emerg Dept Use Only) < 0.02 ng/mL (0.0-0.045)
--- NOTE | 2021-01-31 18:40 | EDPHYS ---
Physician Documentation [facility] [place], [place] Name: Jv Bryant Age: 66 yrs Sex: Female : 1955 Arrival Date: 01/31/2021 Time: 15:25 Bed 16 Private MD: ED Physician Chip Bettencourt HPI: 01/31 16:30 This 66 yrs old Female presents to ER via EMS with complaints of Shortness Of Breath. jr8 16:31 The patient's shortness of breath is aggravated by exertion. Severity of symptoms: At jr8 their worst the symptoms were moderate in the emergency department the symptoms are unchanged. The patient has not experienced similar symptoms in the past. The patient has not recently seen a physician. This is a 66-year-old female with a history of COPD that presented to the emergency room with increased fatigue, cough, shortness of breath, dizziness that started yesterday. Patient denies recent fevers, sick contacts or any other illness related to her current symptoms.. Historical: - Allergies: 15:32 Dilaudid; sm5 - Home Meds: 15:32 furosemide 40 mg Oral tab 1 tab 2 times per day [Active]; gabapentin 100 mg Oral cap 3 sm5 caps nightly for Neuropathic Pain [Active]; lovastatin 20 mg Oral tab once daily [Active]; metoprolol tartrate 25 mg Oral tab 1 tab 2 times per day [Active]; - PMHx: 15:32 ADD/ADHD; Arthritis; Chronic pain; COPD; frequent UTI'S; Hypertension; PERIPHERAL sm5 NEUROPATHY; lymphedema; unspecified kidney failure; insomnia; heart disease- unspecified; Fibromyalgia; Hyperlipidemia; - Immunization history:: Client reports having NOT received the Covid vaccine. - Social history:: Smoking status: unknown. ROS: 16:31 Eyes: Negative for injury, pain, redness, and discharge, ENT: Negative for injury, jr8 pain, and discharge, Neck: Negative for injury, pain, and swelling, Cardiovascular: Negative for chest pain, palpitations, and edema, Abdomen/GI: Negative for abdominal pain, nausea, vomiting, diarrhea, and constipation, Back: Negative for injury and pain, MS/Extremity: Negative for injury and deformity, Skin: Negative for injury, rash, and discoloration, Neuro: Negative for headache, weakness, numbness, tingling, and seizure. 16:31 Constitutional: Positive for fatigue. 16:31 Respiratory: Positive for cough, dyspnea on exertion, shortness of breath, wheezing. Exam: 16:31 Eyes: Pupils equal round and reactive to light, extra-ocular motions intact. Lids and jr8 lashes normal. Conjunctiva and sclera are non-icteric and not injected. Cornea within normal limits. Periorbital areas with no swelling, redness, or edema. ENT: Nares patent. No nasal discharge, no septal abnormalities noted. Tympanic membranes are normal and external auditory canals are clear. Oropharynx with no redness, swelling, or masses, exudates, or evidence of obstruction, uvula midline. Mucous membranes moist. Neck: Trachea midline, no thyromegaly or masses palpated, and no cervical lymphadenopathy. Supple, full range of motion without nuchal rigidity, or vertebral point tenderness. No Meningismus. Cardiovascular: Regular rate and rhythm with a normal S1 and S2. No gallops, murmurs, or rubs. Normal PMI, no JVD. No pulse deficits. Abdomen/GI: Soft, non-tender, with normal bowel sounds. No distension or tympany. No guarding or rebound. No evidence of tenderness throughout. Skin: Warm, dry with normal turgor. Normal color with no rashes, no lesions, and no evidence of cellulitis. MS/ Extremity: Pulses equal, no cyanosis. Neurovascular intact. Full, normal range of motion. Neuro: Awake and alert, GCS 15, oriented to person, place, time, and situation. Cranial nerves II-XII grossly intact. Motor strength 5/5 in all extremities. Sensory grossly intact. 16:31 Respiratory: the patient does not display signs of respiratory distress, Respirations: tachypnea, that is mild, Breath sounds: wheezing: expiratory that is moderate, is heard diffusely. Vital Signs: 15:30 BP 134 / 63; Pulse 64; Resp 23; Temp 98.1; Pulse Ox 99% on 4 lpm NC; Weight 151.5 kg; sm5 Height 5 ft. 2 in. (157.48 cm); 17:23 BP 123 / 57; Pulse 90; Resp 19; Pulse Ox 93% on R/A; sm5 18:30 BP 117 / 55; Pulse 86; Resp 20; Pulse Ox 95% ; sm5 15:30 Body Mass Index 61.09 (151.50 kg, 157.48 cm) [facility] MDM: 15:29 Patient medically screened. [facility] 18:38 Data reviewed: vital signs, nurses notes, lab test result(s), EKG, radiologic studies, jr8 plain films. Data interpreted: Pulse oximetry: on 3L(s) per nasal canula, is 93 %. Interpretation: borderline. Counseling: I had a detailed discussion with the patient and/or guardian regarding: the historical points, exam findings, and any diagnostic results supporting the discharge/admit diagnosis, lab results, radiology results, the need for further work-up and treatment in the hospital. 01/31 15:47 Order name: Basic Metabolic Panel [facility] 01/31 15:47 Order name: CBC with Diff [facility] 01/31 15:47 Order name: LFT's; Complete Time: 17:40 [facility] 01/31 15:47 Order name: Magnesium; Complete Time: 17:40 [facility] 01/31 15:47 Order name: NT PRO-BNP; Complete Time: 17:40 [facility] 01/31 15:47 Order name: PT-INR; Complete Time: 17:20 [facility] 01/31 15:47 Order name: Troponin (emerg Dept Use Only); Complete Time: 17:40 [facility] 01/31 15:47 Order name: XRAY Chest (1 view); Complete Time: 16:35 [facility] 01/31 15:47 Order name: Basic Metabolic Panel; Complete Time: 17:40 [facility] 01/31 15:47 Order name: CBC with Automated Diff; Complete Time: 17:49 [facility] 01/31 16:00 Order name: COVID-19 SARS RT PCR (Document "Date of Onset" if Symptomatic); Complete [facility] Time: 19:44 01/31 16:37 Order name: ABG Arterial Blood Gas; Complete Time: 16:44 [facility] 01/31 15:47 Order name: EKG; Complete Time: 15:47 [facility] 01/31 15:47 Order name: Cardiac monitoring; Complete Time: 15:50 [facility] 01/31 15:47 Order name: EKG - Nurse/Tech; Complete Time: 16:28 [facility] 01/31 15:47 Order name: IV Saline Lock; Complete Time: 15:50 [facility] 01/31 15:47 Order name: Labs collected and sent; Complete Time: 17:04 8 01/31 15:47 Order name: O2 Per Protocol; Complete Time: 15:51 8 01/31 15:47 Order name: O2 Sat Monitoring; Complete Time: 15:51 [facility] 01/31 18:57 Order name: CONS Physician Consult EDMS Administered Medications: 16:42 Drug: Xopenex (levalbuterol) (3) 1.25 mg Route: Inhalation; 5 16:43 Drug: SOLU-Medrol (methylPrednisoLONE) 125 mg Route: IVP; Site: right forearm; 5 16:43 Drug: Albuterol - atroVENT (ipratropium) (3:1) (2.5 mg - 0.5 mg) 3 ml Route: Nebulizer; 5 19:02 Drug: LevaQUIN (levofloxacin) 500 mg Route: PO; 5 Disposition Summary: 01/31/21 18:39 Hospitalization Ordered Hospitalization Status: Observation 8 Provider: Kyle Bettencourt jr Location: Telemetry/MedSurg (observation) [facility] Condition: Stable jr Problem: new jr8 Symptoms: are unchanged jr8 Bed/Room Type: Standard [facility] Room Assignment: 206(01/31/21 19:47) eb1 Diagnosis - COPD/ Chronic obstructive pulmonary disease with (acute) exacerbation [facility] Forms: - Medication Reconciliation Form jr8 - SBAR form 8 Addendum: 02/05/2021 19:04 Co-signature as Attending Physician, Chip Bettencourt MD I agree with the assessment and r n plan of care. Attestation: The patient's history, exam findings, diagnostics, and a summary of any interventions or procedures was reviewed in detail with Anmol LUNA. Signatures: Dispatcher [employer] EDMS Chip Bettencourt MD MD rn Roszak, Josh, PA PA jr8 Ayana Garcia RN RN eb1 Robina Uriarte RN RN sm5 Corrections: (The following items were deleted from the chart) 01/31 19:47 18:39 [facility] eb1
--- NOTE | 2021-01-31 18:40 | ER ---
Nurse's Notes [facility] [place] Name: Jv Bryant Age: 66 yrs Sex: Female : 1955 Arrival Date: 01/31/2021 Time: 15:25 Bed 16 Private MD: Diagnosis: COPD/ Chronic obstructive pulmonary disease with (acute) exacerbation Presentation: 01/31 15:30 Chief complaint: Patient states: pt dx with CHF last week, per pt coughing and sob sm5 started yesterday. took 1/2 of her prescribed dose of lasix today. Coronavirus screen: Vaccine status: Patient reports being unvaccinated. Ebola Screen: No symptoms or risks identified at this time. Initial Sepsis Screen: Does the patient meet any 2 criteria? No. Patient's initial sepsis screen is negative. Does the patient have a suspected source of infection? No. Patient's initial sepsis screen is negative. Risk Assessment: Do you want to hurt yourself or someone else? Patient reports no desire to harm self or others. Onset of symptoms was January 30, 2021. 15:30 Method Of Arrival: EMS: [facility] 15:30 Acuity: SKYLER 3 sm5 Triage Assessment: 15:36 Respiratory: Reports cough that is. 5 15:36 General: Appears uncomfortable, obese. Respiratory: Respiratory: Onset: The sm5 symptoms/episode began/occurred yesterday. Historical: - Allergies: 15:32 Dilaudid; sm5 - Home Meds: 15:32 furosemide 40 mg Oral tab 1 tab 2 times per day [Active]; gabapentin 100 mg Oral cap 3 sm5 caps nightly for Neuropathic Pain [Active]; lovastatin 20 mg Oral tab once daily [Active]; metoprolol tartrate 25 mg Oral tab 1 tab 2 times per day [Active]; - PMHx: 15:32 ADD/ADHD; Arthritis; Chronic pain; COPD; frequent UTI'S; Hypertension; PERIPHERAL sm5 NEUROPATHY; lymphedema; unspecified kidney failure; insomnia; heart disease- unspecified; Fibromyalgia; Hyperlipidemia; - Immunization history:: Client reports having NOT received the Covid vaccine. - Social history:: Smoking status: unknown. Screenin:36 Abuse screen: Denies threats or abuse. Denies injuries from another. Nutritional sm5 screening: No deficits noted. Tuberculosis screening: No symptoms or risk factors identified. Fall Risk No fall in past 12 months (0 pts). No secondary diagnosis (0 pts). IV access (20 points). Ambulatory Aid- None/Bed Rest/Nurse Assist (0 pts). Gait- Normal/Bed Rest/Wheelchair (0 pts) Mental Status- Oriented to own ability (0 pts). Total Garcia Fall Scale indicates No Risk (0-24 pts). Assessment: 15:34 General: Appears uncomfortable, obese, Behavior is cooperative. Pain: Denies pain. 5 Neuro: Level of Consciousness is awake, alert, Oriented to person, place, time, situation. Cardiovascular: No deficits noted. Rhythm is regular. Respiratory: Airway is patent Trachea midline Respiratory effort is even, unlabored, Breath sounds with crackles. : Pedroza in place. Vital Signs: 15:30 BP 134 / 63; Pulse 64; Resp 23; Temp 98.1; Pulse Ox 99% on 4 lpm NC; Weight 151.5 kg; 5 Height 5 ft. 2 in. (157.48 cm); 17:23 BP 123 / 57; Pulse 90; Resp 19; Pulse Ox 93% on R/A; sm5 18:30 BP 117 / 55; Pulse 86; Resp 20; Pulse Ox 95% ; sm5 15:30 Body Mass Index 61.09 (151.50 kg, 157.48 cm) 5 ED Course: 15:25 Patient arrived in ED. ds1 15:29 Anmol Ronquillo PA is PHCP. jr8 15:29 Chip Bettencourt MD is Attending Physician. jr8 15:29 Robina Uriarte, ALO is Primary Nurse. 5 15:31 Triage completed. 5 15:34 Arm band placed on right wrist. 5 15:34 No provider procedures requiring assistance completed. Maintain EMS IV. Dressing intact.sm5 15:36 Patient has correct armband on for positive identification. Bed in low position. Call [facility] light in reach. Side rails up X2. 16:17 XRAY Chest (1 view) In Process Unspecified. EDMS 16:28 EKG done, by ED staff, reviewed by Anmol LUNA. [facility] 17:04 CBC with Automated Diff Sent. [facility] 17:04 Basic Metabolic Panel Sent. 5 17:04 Basic Metabolic Panel Sent. sm5 17:04 CBC with Diff Sent. 5 17:21 COVID-19 SARS RT PCR (Document "Date of Onset" if Symptomatic) Sent. [facility] 18:39 Kyle Bettencourt MD is Hospitalizing Provider. jr8 20:58 Patient admitted, IV remains in place. ld1 Administered Medications: 16:42 Drug: Xopenex (levalbuterol) (3) 1.25 mg Route: Inhalation; [facility] 16:43 Drug: SOLU-Medrol (methylPrednisoLONE) 125 mg Route: IVP; Site: right forearm; [facility] 16:43 Drug: Albuterol - atroVENT (ipratropium) (3:1) (2.5 mg - 0.5 mg) 3 ml Route: Nebulizer; [facility] 19:02 Drug: LevaQUIN (levofloxacin) 500 mg Route: PO; [facility] Outcome: 18:39 Decision to Hospitalize by Provider. jr8 20:57 Admitted to Med/surg accompanied by tech, via stretcher, room 206, Report called to ld1 ALO Pedro 20:57 Condition: stable 20:57 Instructed on the need for admit, Demonstrated understanding of 20:58 Patient left the ED. ld1 Signatures: Dispatcher [employer] EDMS Mary Mcdaniel Josh, PA PA jr8 Shweta Tristan Jaja Levy RN RN ld1 Robina Uriarte RN RN 5
[2021-01-31] MEDS ORDERED: levoFLOXacin 500 MG TAB ONE (18:57)
--- NOTE | 2021-01-31 21:26 | P.HP ---
Certification for Inpatient Patient admitted to: Inpatient With expected LOS: <2 Midnights Patient will require the following post-hospital care: None Practitioner: I am a practitioner with admitting privileges, knowledge of patient current condition, hospital course, and medical plan of care. Services: Services provided to patient in accordance with Admission requirements found in Title 42 Section 412.3 of the Code of Federal Regulations Patient History Date of Service: 01/31/21 Reason for admission: copd exacerbation History of Present Illness: Ms. Angel Plasencia is a 66 yo morbidly obese F with COPD, CHF, HTN, chronic lymphedema recurrent UTIs with indwelling suprapubic catheter who presents with SOB beginning yesterday. She also reports fatigue, nonproductive cough, and wheezing. She said she had an episode of dizziness with ambulation to the bathroom today. She says she has felt like this before but never this severe. She received breathing treatments and IV steroids in the ED, and is admitted for further management. CXR FINDINGS: Mild bilateral interstitial lung opacities are present bilaterally which may represent interstitial pulmonary edema or a viral infection. The heart is upper limit normal in size. No displaced fractures. Allergies amoxicillin [From Augmentin] Allergy (Severe, Verified 09/16/19 23:49) diarrhea, nausea, vomiting ceftriaxone [From Rocephin] Allergy (Severe, Verified 09/16/19 23:49) Itching/Hives/Rash fentanyl Allergy (Severe, Verified 09/16/19 23:49) Itching/Hives/Rash iodine Allergy (Severe, Verified 09/16/19 23:49) Unknown lincomycin [From Lincocin] Allergy (Severe, Verified 09/16/19 23:49) rashes,headaches pneumococcal vaccine [From Pneumovax 23] Allergy (Severe, Verified 09/16/19 23:49) sick more than a week sulfamethoxazole [From Bactrim] Allergy (Severe, Verified 09/16/19 23:49) Anaphylaxis trifluoperazine [From Stelazine] Allergy (Severe, Verified 09/16/19 23:49) itching and rashes vancomycin Allergy (Severe, Verified 09/16/19 23:49) renal failure soap [From Betadine] Allergy (Mild, Verified 09/16/19 23:49) Hives/Rash Sulfa (Sulfonamide Antibiotics) Allergy (Mild, Verified 09/16/19 23:49) Anaphylaxis aloe vera Allergy (Verified 09/16/19 23:49) Itching celery Allergy (Verified 09/16/19 23:49) Nausea/Vomiting Macrolide Antibiotics Allergy (Verified 09/16/19 23:49) Itching/Hives/Rash FLU VACCINE Allergy (Severe, Uncoded 09/16/19 23:49) sick for more than a week aloe vera Allergy (Uncoded 09/16/19 23:49) Unknown hall peppers Allergy (Uncoded 09/16/19 23:49) Nausea/Vomiting celery Allergy (Uncoded 09/16/19 23:49) Unknown FLU VAC Allergy (Uncoded 09/16/19 23:49) Unknown peppers Allergy (Uncoded 09/16/19 23:49) Unknown Home Medications: Lovastatin 1 tab PO BEDTIME 12/15/17 Metoprolol Tartrate [Lopressor*] 1 tab PO DAILY 09/16/19 Medihoney [Medihoney Woundcare Gel*] 1 appl TOP DAILY #1 tube 09/11/20 Cranberry Fruit Extract/Vit C [Azo Cranberry Softgel] 1 each PO DAILY 01/14/21 Diphenhydramine [Benadryl*] 25 mg PO BEDTIME 01/14/21 Furosemide [Lasix*] 40 mg PO BIDL 01/14/21 Gabapentin 300 mg PO BEDTIME 01/14/21 Folic Acid 1 mg PO DAILY #90 tablet 01/21/21 Hydrocodone 7.5/APAP 325 [[place] 7.5/325 mg] 1 tab PO BID PRN #10 tab 01/21/21 Lactobacillus Acidophilus [Acidophilus Lactobacilli] 1 each PO TID #30 capsule 01/21/21 - Past Medical/Surgical History Diabetic: No -: Lymphedema - bilateral leg -: Morbid obesity with Hx of Lap. Band -: Peripheral neuropathy -: Osteoarthritis -: mild COPD -: mild eczema -: Depression -: Sleep apnea -: CHF -: CRE -: hypertension -: frequent UTIs -: -: Lap band 2008 -: Tonsillectomy and adenoidectomy Psychosocial/ Personal History: , Disabled. One son. - Family History Father -: Heart disease Mother -: Hypertension, Stroke Notes: erin deirdre syndrome - Social History Smoking Status: Former smoker Alcohol use: No CD- Drugs: No Caffeine use: Yes Place of Residence: Home Review of Systems 10-point ROS is otherwise unremarkable General: Malaise, As per HPI Eyes: Unremarkable ENT: Unremarkable Respiratory: Cough, Shortness of Breath, SOB with Excertion, Wheezing, As per HPI Cardiovascular: Unremarkable Gastrointestinal: Unremarkable Genitourinary: Unremarkable Musculoskeletal: Unremarkable Integumentary: Rash Neurological: Unremarkable Lymphatics: Unremarkable Physical Examination - Vital Signs Temperature: 98.1 F Blood Pressure: 117/55 Pulse: 86 Respirations: 20 - Physical Exam General: Alert, In no apparent distress, Oriented x3, Cooperative, Obese HEENT: Atraumatic, PERRLA, Mucous membr. moist/pink, EOMI, Sclerae nonicteric Neck: Supple, 2+ carotid pulse no bruit, No LAD, Without JVD or thyroid abnormality Respiratory: Diminished, Expiratory wheezes Cardiovascular: Regular rate/rhythm, Normal S1 S2, Edema Gastrointestinal: Normal bowel sounds, No tenderness Musculoskeletal: No tenderness Integumentary: Rash(es), Skin breakdown, Tenderness/swelling Neurological: Normal speech, Normal strength at 5/5 x4 extr, Normal tone, Normal affect Lymphatics: No axilla or inguinal lymphadenopathy Urinary: Suprapubic catheter - Studies Laboratory Data (last 24 hrs) 01/31/21 17:00: PT 12.0, INR 1.04 01/31/21 17:00: WBC 7.20 D, Hgb 12.7, Hct 38.2, Plt Count 287 01/31/21 17:00: Sodium 141, Potassium 3.5, BUN 11, Creatinine 0.99, Glucose 114 H, Magnesium 2.0, Total Bilirubin 0.4, AST 10 L, ALT 11 L, Alkaline Phosphatase 81 Assessment and Plan - Problems (Diagnosis) (1) COPD (chronic obstructive pulmonary disease) Current Visit: No Status: Acute Qualifiers: COPD type: COPD with acute exacerbation Qualified Code(s): J44.1 - Chronic obstructive pulmonary disease with (acute) exacerbation (2) Fibromyalgia Onset Date: 05/26/14 Current Visit: No Status: Chronic (3) Lymphedema Onset Date: 05/25/14 Current Visit: No Status: Chronic (4) Morbid obesity Current Visit: No Status: Chronic - Plan pulmonology consulted, RT consulted continue breathing tx, IV steroids and O2 as needed continue PO levaquin antitussives PRN continue wound care as needed reconcile and continue home medications UA pending Discharge Plan: Home Plan to discharge in: 48 Hours - Advance Directives Does patient have a Living Will: No Does patient have a Durable POA for Healthcare: No - Code Status/Comfort Care Code Status Assessed: Yes (full code ) Critical Care: No Time Spent Managing Pts Care (In Minutes): 70
[2021-01-31] MEDS ORDERED: GABAPENTIN 300 MG CAP PO PRN (21:40)
[2021-01-31] MEDS ORDERED: ONDANSETRON 4 MG/2 ML VIAL IV PRN (21:40)
[2021-01-31] MEDS ORDERED: DIPHENHYDRAMINE 25 MG TAB/CAP PO SCH (21:40)
[2021-02-01] MEDS: LACTOBACILLUS/ACIDOPHILUS TAB PO SCH ×4 (00:45→21:32)
[2021-02-01] MEDS: ATORVASTATIN 10 MG TAB PO SCH ×2 (00:45→21:33)
[2021-02-01] MEDS: BENZONATATE 100 MG CAP PO PRN ×3 (00:46→21:40)
[2021-02-01] MEDS ORDERED: METHYLPREDNISOLONE 40 MG INJ IV SCH (01:00)
[2021-02-01] MEDS: FUROSEMIDE 40 MG TABLET PO SCH ×3 (01:07→16:44)
[2021-02-01] MEDS: IPRATROPIUM BROM 0.5MG/2.5ML NEB PRN ×3 (01:30→14:23)
[2021-02-01] MEDS: LEVALBUTEROL 1.25 MG/3 ML NEB NEB PRN ×3 (01:30→14:23)
--- NOTE | 2021-02-01 06:22 | P.PN ---
Date of Service: 02/01/21 Subjective: No acute events overnight. Patient reports breathing is slightly improved, not feeling short of breath, cough has improved as well. Denies any recent worsening of her edema, denies any UTI symptoms Recently had her suprapubic catheter changed 2 days ago Denies any rash/itching ROS: 10 point ROS as noted above, otherwise negative Physical exam GEN: Alert, oriented, NAD, morbidly obese HEENT: Normal conjunctiva, sclera anicteric CV: Regular rate and rhythm, chronic lymphedema Pulm: Nonlabored respiration on 2 L nasal cannula, bilateral expiratory wheeze, with some mild crackles at bases bilaterally ABD: Soft, nontender, nondistended Integumentary: Mild erythema the inferior aspect of suprapubic catheter down to mons pubis with few satellite erythematous areas, no drainage, no induration, nontender Neuro: Normal speech, normal affect Problem List acute hypoxemic respiratory failure secondary to acute COPD exacerbation chronic diastolic CHF HTN chronic lymphedema fibromyalgia morbid obesity Chronic suprapubic catheter Likely from a combined COPD exacerbation and CHF Cough not feeling well, may have an infection Continue nebs, steroids, oxygen as needed Continue p.o. Levaquin Antitussives as needed Pulmonology consulted Patient denies prior diagnosis of COPD. Smokes 1 pack every 4-5 days for the majority of her life continue breathing tx, IV steroids and O2 as needed continue PO levaquin antitussives PRN Continue local wound care bilateral chronic lymphedematous legs Antifungal powder for suprapubic area Confirm home medications, restart as appropriate UA pending this morning, but patient denies any symptoms Time Spent Managing Pts Care (In Minutes): 35
[2021-02-01 06:37] LABS: Absolute Lymphocytes (CBC) 0.5 K/uL (0.7-4.9); Basophils % 0.4 % (0-1.3); Hematocrit 37.1 % (36.0-45.0); Lymphocytes % 8.8 % (15.3-44.8); MPV 8.5 fL (7.6-11.3); RBC Red Blood Cell Count 4.15 M/uL (3.86-4.86)
[2021-02-01 07:05] LABS: Albumin 2.5 g/dL (3.4-5.0); Bilirubin Total 0.4 mg/dL (0.2-1.0); Magnesium 2.4 mg/dL (1.8-2.4); Phosphorus 2.5 mg/dL (2.5-4.9); Protein, Total 7.2 g/dL (6.4-8.2); Thyroid Stimulating Hormone 0.457 uIU/mL (0.360-3.740)
[2021-02-01 07:08] LABS: Urine Color YELLOW (Yellow)
[2021-02-01 07:09] LABS: Urine Appearance CLEAR (Clear); Urine Bacteria <20 /HPF (<20); Urine Bilirubin NEGATIVE (Negative); Urine Blood TRACE (Negative); Urine Glucose NEGATIVE (Negative); Urine Microscopic Reflex ORDER UMIC; Urine Protein NEGATIVE (Negative); Urine RBC <5 /HPF (NONE SEEN); Urine Specific Gravity 1.015 (1.005-1.030); Urine Urobilinogen 0.2 mg/dL (0.2-1.0)
[2021-02-01] MEDS ORDERED: POTASSIUM CL SA 10 MEQ TAB PO ONE (09:00)
[2021-02-01] MEDS: CRANBERRY FRUIT EXTRACT PO SCH (09:00)
[2021-02-01] MEDS: VIT C PO SCH (09:00)
[2021-02-01] MEDS ORDERED: FUROSEMIDE 40 MG TABLET PO SCH (09:00)
[2021-02-01] MEDS: MEDIHONEY 44 ML TOPICAL TUBE TOP SCH (09:00)
[2021-02-01 10:29] LABS: Blood Morphology Comment NOT SEEN (NOT SEEN); Platelet Estimate ADEQ; White Blood Cell Scan OK (OK)
[2021-02-01] MEDS: METOPROLOL TAR 25 MG TAB PO SCH (10:29)
[2021-02-01] MEDS: FOLIC ACID 1 MG TABLET PO SCH (10:29)
[2021-02-01] MEDS: predniSONE 20 MG TAB PO SCH ×2 (10:30→16:45)
[2021-02-01] MEDS: POTASS/SODIUM PHOSPHATE 1 PKT POWD.PACK PO SCH ×3 (10:31→14:23)
[2021-02-01] MEDS: ENOXAPARIN 40 MG/0.4 ML SQ SCH (10:31)
[2021-02-01] MEDS: NYSTATIN PWDR 100000 UNIT/GM TOP SCH (14:23)
[2021-02-01] MEDS ORDERED: POTASS/SODIUM PHOSPHATE 1 PKT POWD.PACK PO SCH (15:00)
[2021-02-01] MEDS ORDERED: levoFLOXacin 750 MG TAB PO SCH (16:00)
[2021-02-01] MEDS: DIPHENHYDRAMINE 25 MG TAB/CAP PO SCH (21:32)
--- NOTE | 2021-02-02 06:19 | P.PN ---
Date of Service: 02/02/21 Subjective: Breathing feels like it comes and goes, at times feels a little bit better at other times having some more difficulty Patient noted to be in new onset A. fib this morning, rate controlled, denies any history ROS: 10 point ROS as noted above, otherwise negative Physical exam GEN: Alert, oriented, NAD, morbidly obese HEENT: Normal conjunctiva, sclera anicteric CV: Irregularly irregular rhythm, chronic lymphedema Pulm: Nonlabored respiration on 2 L nasal cannula, bilateral expiratory wheeze, with some mild crackles at bases bilaterally ABD: Soft, nontender, nondistended Integumentary: Mild erythema the inferior aspect of suprapubic catheter down to mons pubis with few satellite erythematous areas, no drainage, no induration, nontender Neuro: Normal speech, normal affect Problem List acute hypoxemic respiratory failure secondary to acute COPD exacerbation New onset atrial fibrillation chronic diastolic CHF HTN chronic lymphedema fibromyalgia morbid obesity Chronic suprapubic catheter Likely from a combined COPD exacerbation and CHF Not much improvement, and patient has been slightly tachycardic as well, concern for PE Patient is not very mobile at home due to chronic lymphedema and leg pain We will obtain D-dimer, and further pursue imaging if elevated Continue nebs, steroids, oxygen as needed Continue p.o. Levaquin, UA suggestive of UTI possibly, patient states she noted some clumping this morning Antitussives as needed Pulmonology consulted Patient denies prior diagnosis of COPD. Smokes 1 pack every 4-5 days for the majority of her life Continue local wound care bilateral chronic lymphedematous legs Antifungal powder for suprapubic area Confirm home medications, restart as appropriate EKG with new A. fib, rate controlled with metoprolol. Cardiology consulted Start therapeutic anticoagulation dosing of Lovenox given possibility of PE, and new onset A. fib Dispo: Anticipate discharge home in 2-3 days Time Spent Managing Pts Care (In Minutes): 35
[2021-02-02 06:24] LABS: Absolute Lymphocytes (CBC) 1.4 K/uL (0.7-4.9); Basophils % 0.1 % (0-1.3); Hematocrit 36.7 % (36.0-45.0); Lymphocytes % 13.3 % (15.3-44.8); MPV 8.6 fL (7.6-11.3); RBC Red Blood Cell Count 4.11 M/uL (3.86-4.86)
[2021-02-02 06:41] LABS: Albumin 2.4 g/dL (3.4-5.0); Bilirubin Total 0.3 mg/dL (0.2-1.0); Phosphorus 2.7 mg/dL (2.5-4.9); Potassium 3.2 mmol/L (3.5-5.1); Protein, Total 6.7 g/dL (6.4-8.2)
[2021-02-02] MEDS ORDERED: POTASSIUM CL SA 10 MEQ TAB PO ONE (09:00)
[2021-02-02] MEDS: CRANBERRY FRUIT EXTRACT PO SCH (09:00)
[2021-02-02] MEDS: VIT C PO SCH (09:00)
[2021-02-02] MEDS: MEDIHONEY 44 ML TOPICAL TUBE TOP SCH (09:00)
[2021-02-02] MEDS: LACTOBACILLUS/ACIDOPHILUS TAB PO SCH ×3 (09:26→21:40)
[2021-02-02] MEDS: ACETAMINOPHEN 500 MG TAB PO PRN (09:26)
[2021-02-02] MEDS: METOPROLOL TAR 25 MG TAB PO SCH (09:27)
[2021-02-02] MEDS: predniSONE 20 MG TAB PO SCH ×2 (09:28→17:06)
[2021-02-02] MEDS: FUROSEMIDE 40 MG TABLET PO SCH ×2 (09:28→17:06)
[2021-02-02] MEDS: FOLIC ACID 1 MG TABLET PO SCH (09:28)
[2021-02-02] MEDS: ENOXAPARIN 40 MG/0.4 ML SQ SCH (09:30)
[2021-02-02] MEDS: NYSTATIN PWDR 100000 UNIT/GM TOP SCH (09:36)
--- NOTE | 2021-02-02 09:50 | RAD REPORT ---
EXAM DESCRIPTION: Chrissy Single View02/02/2021 6:45 am CLINICAL HISTORY: Cough COMPARISON: January 31, 2021 FINDINGS: Pulmonary opacities appear partially resolved. Heart is borderline enlarged. IMPRESSION: Partial resolution in the mild pulmonary opacities which may represent pneumonitis or v iral pneumonia
--- NOTE | 2021-02-02 10:51 | P.CNS ---
Date of Consult: 02/02/21 Reason for Consult: Shortness of breath Chief Complaint: copd exacerbation History of Present Illness: Patient is 66 years of age smokes socially admitted with acute shortness of breath severe cough patient denies any history of cardiopulmonary problems no si gnificant change she continues to wheeze Allergies amoxicillin [From Augmentin] Allergy (Severe, Verified 09/16/19 23:49) diarrhea, nausea, vomiting ceftriaxone [From Rocephin] Allergy (Severe, Verified 09/16/19 23:49) Itching/Hives/Rash fentanyl Allergy (Severe, Verified 09/16/19 23:49) Itching/Hives/Rash iodine Allergy (Severe, Verified 09/16/19 23:49) Unknown lincomycin [From Lincocin] Allergy (Severe, Verified 09/16/19 23:49) rashes,headaches pneumococcal vaccine [From Pneumovax 23] Allergy (Severe, Verified 09/16/19 23:49) sick more than a week sulfamethoxazole [From Bactrim] Allergy (Severe, Verified 09/16/19 23:49) Anaphylaxis trifluoperazine [From Stelazine] Allergy (Severe, Verified 09/16/19 23:49) itching and rashes vancomycin Allergy (Severe, Verified 09/16/19 23:49) renal failure soap [From Betadine] Allergy (Mild, Verified 09/16/19 23:49) Hives/Rash Sulfa (Sulfonamide Antibiotics) Allergy (Mild, Verified 09/16/19 23:49) Anaphylaxis aloe vera Allergy (Verified 09/16/19 23:49) Itching celery Allergy (Verified 09/16/19 23:49) Nausea/Vomiting Macrolide Antibiotics Allergy (Verified 09/16/19 23:49) Itching/Hives/Rash FLU VACCINE Allergy (Severe, Uncoded 09/16/19 23:49) sick for more than a week aloe vera Allergy (Uncoded 09/16/19 23:49) Unknown hall peppers Allergy (Uncoded 09/16/19 23:49) Nausea/Vomiting celery Allergy (Uncoded 09/16/19 23:49) Unknown FLU VAC Allergy (Uncoded 09/16/19 23:49) Unknown peppers Allergy (Uncoded 09/16/19 23:49) Unknown Home Medications: Lovastatin 1 tab PO BEDTIME 12/15/17 Metoprolol Tartrate [Lopressor*] 1 tab PO BID 09/16/19 Cranberry Fruit Extract/Vit C [Azo Cranberry Softgel] 1 each PO DAILY 01/14/21 Diphenhydramine [Benadryl*] 25 mg PO BEDTIME 01/14/21 Furosemide [Lasix*] 40 mg PO BIDL 01/14/21 Gabapentin 300 mg PO BEDTIME 01/14/21 Folic Acid 1 mg PO DAILY #90 tablet 01/21/21 Hydrocodone 7.5/APAP 325 [[place] 7.5/325 mg] 1 tab PO BID PRN #10 tab 01/21/21 Lactobacillus Acidophilus [Acidophilus Lactobacilli] 1 each PO TID #30 capsule 01/21/21 - Past Medical/Surgical History Diabetic: No -: Lymphedema - bilateral leg -: Morbid obesity with Hx of Lap. Band -: Peripheral neuropathy -: Osteoarthritis -: mild COPD -: mild eczema -: Depression -: Sleep apnea -: CHF -: CRE -: hypertension -: frequent UTIs -: -: Lap band 2008 -: Tonsillectomy and adenoidectomy Psychosocial/ Personal History: , Disabled. One son. - Family History Father Medical History: Heart disease Mother Medical History: Hypertension, Stroke Notes: erin deirdre syndrome - Social History Smoking Status: Unknown if ever smoked Alcohol use: No CD- Drugs: No Caffeine use: Yes Place of Residence: Home Review of Systems 10-point ROS is otherwise unremarkable General: Weakness Respiratory: Cough, Shortness of Breath Physical Examination Temp Pulse Resp BP Pulse Ox 96.9 F 80 16 121/61 95 02/02/21 08:00 02/02/21 09:28 02/02/21 08:00 02/02/21 09:28 02/02/21 08:00 General: Alert, In no apparent distress, Oriented x3 Respiratory: Expiratory wheezes Cardiovascular: No edema, Regular rate/rhythm, Normal S1 S2 Gastrointestinal: Normal bowel sounds, Soft and benign Musculoskeletal: Other (Patient has gross lymphedema with a suprapubic catheter) - Problems (1) Shortness of breath Current Visit: Yes Status: Acute Plan: Patient is 66 years of age admitted with acute onset of shortness of breath and cough claims to smoke about a pack a week blood gases show a mild hypercapnia with hypoxemia patient is wheezing probably has underlying obstructive airways disease however unable to assess as she is not ambulatory due to weakness of her legs and gross lymphedema there is no evidence of sepsis DC antibiotics started her on Dulera 2 puffs twice a day in addition to schedule nebulizer therapy vital signs are stable blood gases show mild hypercapnia probably has underlying mild obstructive airways disease he needs to continue on bronchodilators at home possible discharge tomorrow
[2021-02-02] MEDS: LEVALBUTEROL 1.25 MG/3 ML NEB NEB SCH ×2 (13:45→19:55)
[2021-02-02] MEDS: DULERA 200/5 (MOMETASONE/FORMOTEROL) INHALER IH SCH ×2 (14:32→21:39)
[2021-02-02] MEDS: BENZONATATE 100 MG CAP PO PRN (14:33)
--- NOTE | 2021-02-02 15:27 | CON ---
Date of Consultation: 02/02/2021 Reason For Consultation: CHF. History Of Present Illness: A 66-year-old female comes in with significant shortness of breath, coug h, and wheezing. She has significant lymphedema, history of heart failure, COPD, indwelling suprapub ic catheter with multiple UTIs, came in, started on IV steroids and IV antibiotics. Past Medical History: As outlined above in the HPI. Medications: Refer to reconciliation sheet for detailed list. Allergies: AMOXICILLIN, CEFTRIAXONE, FENTANYL, IODINE, VANCOMYCIN, AND DEM. Social History: She is a smoker. Does not drink or use any drugs. Review of Systems: All systems reviewed and they were negative except as mentioned in the HPI. Physical Examination: Vital Signs: Reviewed. Head and Neck: Pupils are equal and reactive to light. Intact eye movements. No JVD. No axillary or cervical lymphadenopathy. Neck: Supple. Thyroid is not enlarged. Lungs: Decreased breathing sounds with rhonchi and wheezing. Heart: Regular rate and rhythm. No extra sounds. Abdomen: Soft, nontender. Bowel sounds positive. No organomegaly. No masses or hernia. No rigidi ty or rebound. Extremities: Huge lymphedema. Significant swelling with chronic changes of the skin bilaterally. Neurologic: Alert, awake, and oriented x3. No acute focal deficits appreciated. Lymph Nodes: No axillary or cervical lymphadenopathy. Investigations: Labs were reviewed. Assessment And Recommendations: 1.Significant fluid retention. Definitely, the patient is known to have history of congestive heart failure. I recommend to start on Lasix 40 mg IV q.8 hours. Again, change the Lasix to IV form 40 m g IV q.8 hours and monitor BUN, creatinine, and electrolytes very carefully. 2.Respiratory failure due to chronic obstructive pulmonary disease in part and congestive heart fail ure in part. So, IV diuretics from my standpoint and please obtain an echocardiogram and further man agement for the infectious etiology as per Pulmonary and hospitalist service. 3. Thank you for the consult. /MICHELLE Voice ID: [id number] Report ID: [id number]
--- NOTE | 2021-02-02 16:35 | RAD REPORT ---
EXAM DESCRIPTION: NM - Vent Perfusion VQ Scan - 02/02/2021 4:04 pm CLINICAL HISTORY: Shortness of breath COMPARISON: February 02, 2021 chest x-ray TECHNIQUE: 18.9 Mci [id number] was administered by inhalation. First breath, equilibrium, and washout images of the lungs obtained 7.2 millicuries Technetium-99 MAA was administered intravenously. Anterior, posterior, lateral and ob lique views of the lungs were taken. FINDINGS: Moderate segmental mismatched perfusion defect is visualized within the each lung. IMPRESSION: Bilateral moderate segmental mismatched perfusion defect place this patient as having a n intermediate to high probability for a pulmonary embolus
[2021-02-02] MEDS: HYDROCODONE/APAP 7.5/325 MG TAB PO PRN (17:05)
[2021-02-02] MEDS: DIPHENHYDRAMINE 25 MG TAB/CAP PO SCH (21:00)
[2021-02-02] MEDS: ATORVASTATIN 10 MG TAB PO SCH (21:40)
[2021-02-03] MEDS: LEVALBUTEROL 1.25 MG/3 ML NEB NEB SCH ×4 (01:50→20:10)
[2021-02-03] MEDS: BENZONATATE 100 MG CAP PO PRN ×2 (02:01→17:11)
[2021-02-03] MEDS: HYDROCODONE/APAP 7.5/325 MG TAB PO PRN (03:20)
[2021-02-03] MEDS ORDERED: FUROSEMIDE 40 MG/4 ML VIAL IV SCH ×2 (05:00→17:00)
--- NOTE | 2021-02-03 06:11 | P.PN ---
Date of Service: 02/03/21 Subjective: Breathing more comfortably, but still having some shortness of breath Lower extremity swelling has improved, but states now her fibromyalgia is acting up due to losing the "cushion" of the fluid Still having some hip pain from yesterday No nausea/vomiting, no new pains VQ scan yesterday moderatehigh probability of PE Unable to tolerate venous lower extremity Dopplers New onset atrial fibrillation yesterday, rate controlled with home metoprolol dose, converted in the evening ROS: 10 point ROS as noted above, otherwise negative Physical exam GEN: Alert, oriented, NAD, morbidly obese HEENT: Normal conjunctiva, sclera anicteric CV: Regular rate and rhythm, chronic lymphedema Pulm: Nonlabored respiration on room air, mild bilateral wheeze ABD: Soft, nontender, nondistended Integumentary: Mild erythema the inferior aspect of suprapubic catheter down to mons pubis with few satellite erythematous areas, no drainage, no induration, nontender Neuro: Normal speech, normal affect Problem List acute hypoxemic respiratory failure secondary to bilateral PE, and COPD exacerbation Acute on chronic CHF exacerbation, likely secondary to PE New onset atrial fibrillation, paroxysmal HTN chronic lymphedema fibromyalgia morbid obesity Chronic suprapubic catheter Component of COPD and CHF exacerbations Given patient was hypoxic and tachycardic, D-dimer was performed and elevated, allergic to IV contrast VQ scan with moderatehigh probability of bilateral PE Patient started Lovenox last night, will transition to p.o. anticoagulation Pulmonology consulted, continue steroids/nebs Respiratory status is improving, but patient still feels short of breath at times He is likely due to prolonged immobility secondary to chronic lymphedema and leg pain at home Urine culture with mixed delmy, off antibiotics Patient denies prior diagnosis of COPD. Smokes 1 pack every 4-5 days for the majority of her life Continue local wound care bilateral chronic lymphedematous legs Antifungal powder for suprapubic area, improving EKG with new A. fib, rate controlled with home metoprolol yesterday, converted back to sinus rhythm and 9 PM 02/02. Cardiology consulted Cardiology recommends echocardiogram, and 40 IV Lasix q 8h. This was decreased due to hypotension and hypokalemia Dispo: Anticipate discharge home in ~2 days Time Spent Managing Pts Care (In Minutes): 35
[2021-02-03 06:31] LABS: Absolute Lymphocytes (CBC) 1.6 K/uL (0.7-4.9); Basophils % 0.3 % (0-1.3); Hematocrit 37.1 % (36.0-45.0); Lymphocytes % 16.5 % (15.3-44.8); MPV 8.6 fL (7.6-11.3); RBC Red Blood Cell Count 4.14 M/uL (3.86-4.86)
[2021-02-03 07:00] LABS: Albumin 2.6 g/dL (3.4-5.0); Bilirubin Total 0.3 mg/dL (0.2-1.0); Protein, Total 6.7 g/dL (6.4-8.2)
[2021-02-03 07:02] LABS: Potassium 2.9 mmol/L (3.5-5.1)
[2021-02-03] MEDS: CRANBERRY FRUIT EXTRACT PO SCH (09:00)
[2021-02-03] MEDS: VIT C PO SCH (09:00)
[2021-02-03] MEDS: MEDIHONEY 44 ML TOPICAL TUBE TOP SCH (09:00)
[2021-02-03] MEDS: ACETAMINOPHEN 500 MG TAB PO PRN (09:01)
[2021-02-03] MEDS: DULERA 200/5 (MOMETASONE/FORMOTEROL) INHALER IH SCH ×2 (09:02→22:09)
[2021-02-03] MEDS: NYSTATIN PWDR 100000 UNIT/GM TOP SCH (09:03)
[2021-02-03] MEDS: LACTOBACILLUS/ACIDOPHILUS TAB PO SCH ×3 (09:03→22:06)
[2021-02-03] MEDS: FOLIC ACID 1 MG TABLET PO SCH (09:03)
[2021-02-03] MEDS: METOPROLOL TAR 25 MG TAB PO SCH (09:06)
[2021-02-03] MEDS: predniSONE 20 MG TAB PO SCH (09:06)
--- NOTE | 2021-02-03 10:44 | P.PN ---
Subjective Date of Service: 02/03/21 Chief Complaint: copd exacerbation/high probability VQ scan Subjective: Improving (Patient is improving doing well not wheezing is much VQ scan shows intermediate to high probability) Review of Systems General: Weakness Respiratory: Shortness of Breath Physical Examination - Vital Signs Temperature: 97.5 F Blood Pressure: 109/45 Pulse: 73 Respirations: 22 Pulse Ox (%): 92 - Physical Exam General: Alert, In no apparent distress, Oriented x3 Respiratory: Clear to auscultation bilaterally Cardiovascular: No edema, Regular rate/rhythm Assessment & Plan - Problems (Diagnosis) (1) Shortness of breath Current Visit: Yes Status: Acute Plan: Patient is improving continue with bronchodilators VQ scan recently was abnormal with agree with full anticoagulation high risk for thromboembolism due to sedentary lifestyle severe lymphedema resume regular doses of Lasix hypokalemic patient has been hypokalemic since admission avoid high doses of Lasix changed to spironolactone lifelong anticoagulation
[2021-02-03] MEDS: RIVAROXABAN 15 MG TABLET PO SCH (17:10)
[2021-02-03] MEDS: predniSONE 10 MG TAB PO SCH (17:11)
[2021-02-03] MEDS: ENSURE HIGH PROTEIN 237 ML CAN PO SCH (21:00)
[2021-02-03] MEDS: DIPHENHYDRAMINE 25 MG TAB/CAP PO SCH (22:05)
[2021-02-03] MEDS: SPIRONOLACTONE 25 MG TABLET PO SCH (22:05)
[2021-02-03] MEDS: ATORVASTATIN 10 MG TAB PO SCH (22:06)
[2021-02-04] MEDS: LEVALBUTEROL 1.25 MG/3 ML NEB NEB SCH ×4 (02:00→20:20)
[2021-02-04 04:49] LABS: Hematocrit 36.7 % (36.0-45.0); MPV 8.6 fL (7.6-11.3); RBC Red Blood Cell Count 4.09 M/uL (3.86-4.86)
[2021-02-04 04:58] LABS: Magnesium 2.1 mg/dL (1.8-2.4)
[2021-02-04 05:01] LABS: Potassium 2.8 mmol/L (3.5-5.1)
--- NOTE | 2021-02-04 06:27 | P.PN ---
Date of Service: 02/04/21 Subjective: Feels she is breathing more comfortably this morning, has not been out of bed much, only a few steps to the bedside chair Continues with her chronic fibromyalgia pain, pain in her hips Otherwise doing okay No longer in atrial fibrillation ROS: 10 point ROS as noted above, otherwise negative Physical exam GEN: Alert, oriented, NAD, morbidly obese HEENT: Normal conjunctiva, sclera anicteric CV: Regular rate and rhythm, chronic lymphedema Pulm: mild labored respiration on room air, mild bilateral wheeze ABD: Soft, nontender, nondistended Integumentary: Mild erythema the inferior aspect of suprapubic catheter down to mons pubis, no drainage, no induration, nontender Neuro: Normal speech, normal affect Problem List Acute hypoxemic respiratory failure secondary to bilateral PE, and COPD exacerbation Acute on chronic CHF exacerbation, likely secondary to PE New onset atrial fibrillation, paroxysmal Hypokalemia, chronic HTN chronic lymphedema fibromyalgia morbid obesity Chronic suprapubic catheter Component of COPD and CHF exacerbations Given patient was hypoxic and tachycardic, D-dimer was performed and elevated, allergic to IV contrast. VQ scan with moderatehigh probability of bilateral PE Started on Lovenox, transition to Xarelto, continue with Pulmonology consulted, continue steroids/nebs Respiratory status is improving, but patient still feels short of breath at times PE is likely due to prolonged immobility secondary to chronic lymphedema and leg pain at home Urine culture with mixed delmy, off antibiotics, remains afebrile Patient denies formal diagnosis of COPD. Smokes 1 pack every 4-5 days for the majority of her life Continue local wound care bilateral chronic lymphedematous legs Antifungal powder for suprapubic area, improving EKG 02/02 - new A. fib, rate controlled with home metoprolol yesterday, converted back to sinus rhythm and 9 PM 02/02. Cardiology consulted Cardiology recommends echocardiogram, and 40 IV Lasix q 8h. This was decreased due to hypotension and hypokalemia. Pulm further changed lasix to spironolactone VTE: Xarelto Dispo: Anticipate discharge home in ~1-2 days Time Spent Managing Pts Care (In Minutes): 35
[2021-02-04] MEDS ORDERED: NA CHLORIDE 0.9% 0 ML ONE (07:36)
[2021-02-04] MEDS ORDERED: NA CHLORIDE 0.9% 1,000 ML ONE (07:41)
[2021-02-04] MEDS: KCL 20 MEQ/100 mL IVPB 20 MEQ/100 ML BAG IV SCH ×2 (07:43→09:00)
[2021-02-04] MEDS: VIT C PO SCH (09:00)
[2021-02-04] MEDS: MEDIHONEY 44 ML TOPICAL TUBE TOP SCH (09:00)
[2021-02-04] MEDS: NYSTATIN PWDR 100000 UNIT/GM TOP SCH (09:00)
[2021-02-04] MEDS: CRANBERRY FRUIT EXTRACT PO SCH (09:00)
[2021-02-04] MEDS: DULERA 200/5 (MOMETASONE/FORMOTEROL) INHALER IH SCH ×2 (09:00→21:05)
[2021-02-04] MEDS: SPIRONOLACTONE 25 MG TABLET PO SCH ×2 (10:41→21:04)
[2021-02-04] MEDS: predniSONE 10 MG TAB PO SCH ×2 (10:41→16:14)
[2021-02-04] MEDS: LACTOBACILLUS/ACIDOPHILUS TAB PO SCH ×3 (10:41→21:06)
[2021-02-04] MEDS: FOLIC ACID 1 MG TABLET PO SCH (10:48)
[2021-02-04] MEDS: METOPROLOL TAR 25 MG TAB PO SCH (10:48)
[2021-02-04] MEDS: RIVAROXABAN 15 MG TABLET PO SCH ×2 (10:48→16:14)
[2021-02-04] MEDS: ENSURE HIGH PROTEIN 237 ML CAN PO SCH ×2 (10:52→21:00)
[2021-02-04] MEDS ORDERED: POTASSIUM 25 MEQ EFFERV TAB PO ONE (11:00)
--- NOTE | 2021-02-04 13:49 | RAD REPORT ---
EXAM DESCRIPTION: RAD - Chest Single View - 02/04/2021 12:48 pm CLINICAL HISTORY: hypoxia, labored respirations Chest pain. COMPARISON: Chest Single View dated 02/02/2021; Chest Single View dated 01/31/2021; Chest Single Vie w dated 01/17/2021; Chest Single View dated 01/14/2021 FINDINGS: Portable technique limits examination quality. Mild interstitial prominence throughout both lungs is unchanged. The heart is normal in size. No disp laced fractures. IMPRESSION: Stable chest since 02/02/2021.
[2021-02-04] MEDS: POTASSIUM 25 MEQ EFFERV TAB PO SCH (21:05)
[2021-02-04] MEDS: ATORVASTATIN 10 MG TAB PO SCH (21:06)
[2021-02-04 22:15] VITALS: BMI 53.0
[2021-02-05] MEDS: DIPHENHYDRAMINE 25 MG TAB/CAP PO SCH ×2 (01:43→23:17)
[2021-02-05] MEDS: LEVALBUTEROL 1.25 MG/3 ML NEB NEB SCH ×4 (02:31→21:40)
[2021-02-05 03:16] LABS: Magnesium 2.1 mg/dL (1.8-2.4); Phosphorus 2.3 mg/dL (2.5-4.9); Potassium 3.8 mmol/L (3.5-5.1)
[2021-02-05] MEDS ORDERED: POTASSIUM 25 MEQ EFFERV TAB PO ONE (03:27)
--- NOTE | 2021-02-05 06:06 | P.PN ---
Date of Service: 02/05/21 Subjective: Feeling better today, 90% on room air, still with some soreness in her hips planning to try to get out of bed again today Continues with some coughing fits, reports some slightly thick mucus ROS: 10 point ROS as noted above, otherwise negative Physical exam GEN: Alert, oriented, NAD, morbidly obese HEENT: Normal conjunctiva, sclera anicteric CV: Regular rate and rhythm, chronic lymphedema Pulm: mild labored respiration on room air, mild bilateral wheeze ABD: Soft, nontender, nondistended Integumentary: Mild erythema the inferior aspect of suprapubic catheter down to mons pubis, no drainage, no induration, nontender Problem List Acute hypoxemic respiratory failure secondary to bilateral PE, and COPD exacerbation Acute on chronic CHF exacerbation, likely secondary to PE New onset atrial fibrillation, paroxysmal Hypokalemia, chronic HTN chronic lymphedema fibromyalgia morbid obesity Chronic suprapubic catheter Component of COPD and CHF exacerbations D-dimer was performed and elevated, allergic to IV contrast. VQ scan with moderatehigh probability of bilateral PE Started on Lovenox, transitioned to Xarelto Pulmonology consulted, continue steroids/nebs Respiratory status is improving, but patient still feels short of breath at times, having coughing fits PE is likely due to prolonged immobility secondary to chronic lymphedema and leg pain at home Urine culture with mixed delmy, off antibiotics, remains afebrile Patient denies formal diagnosis of COPD. Smokes 1 pack every 4-5 days for the majority of her life Continue local wound care bilateral chronic lymphedematous legs Antifungal powder for suprapubic area, improving EKG 02/02 - new A. fib, rate controlled with home metoprolol, converted back to sinus rhythm and 9 PM 02/02. Cardiology consulted Cardiology recommends echocardiogram, and 40 IV Lasix q 8h. This was decreased due to hypotension and hypokalemia. Pulm further changed lasix to spironolactone Echocardiogram to be done today, will follow up on results, with continued improvement, likely discharge home tomorrow VTE: Xarelto Dispo: Anticipate discharge home tomorrow Time Spent Managing Pts Care (In Minutes): 35
[2021-02-05] MEDS: CRANBERRY FRUIT EXTRACT PO SCH (08:23)
[2021-02-05] MEDS: VIT C PO SCH (08:23)
[2021-02-05] MEDS: predniSONE 10 MG TAB PO SCH ×2 (08:32→16:42)
[2021-02-05] MEDS: RIVAROXABAN 15 MG TABLET PO SCH ×2 (08:32→16:42)
[2021-02-05] MEDS: LACTOBACILLUS/ACIDOPHILUS TAB PO SCH ×3 (08:32→21:13)
[2021-02-05] MEDS: SPIRONOLACTONE 25 MG TABLET PO SCH ×2 (08:33→21:13)
[2021-02-05] MEDS: METOPROLOL TAR 25 MG TAB PO SCH (08:33)
[2021-02-05] MEDS: FOLIC ACID 1 MG TABLET PO SCH (08:33)
[2021-02-05] MEDS: POTASS/SODIUM PHOSPHATE 1 PKT POWD.PACK PO SCH ×3 (08:34→11:32)
[2021-02-05] MEDS: ENSURE HIGH PROTEIN 237 ML CAN PO SCH ×2 (08:35→21:19)
[2021-02-05] MEDS: MEDIHONEY 44 ML TOPICAL TUBE TOP SCH (08:36)
[2021-02-05] MEDS: NYSTATIN PWDR 100000 UNIT/GM TOP SCH (08:37)
[2021-02-05] MEDS: POTASSIUM 25 MEQ EFFERV TAB PO SCH ×2 (09:00→21:13)
[2021-02-05] MEDS: DULERA 200/5 (MOMETASONE/FORMOTEROL) INHALER IH SCH ×2 (09:00→21:14)
--- NOTE | 2021-02-05 15:05 | ECHO ---
HEIGHT: 5 ft 2 in WEIGHT: 290 lb 0 oz DATE OF STUDY: 02/05/[address]: Kyle Bettencourt MD 2-DIMENSIONAL: YES M.MODE: YES DOPPLER: YES COLOR FLOW: YES TDS: NO PORTABLE: NO DEFINITY: NO BUBBLE STUDY: NO DIAGNOSIS: CONGESTIVE HEART FAILURE, PE CARDIAC HISTORY: CATHERIZATION: NO SURGERY: NO PROSTHETIC VALVE: NO PACEMAKER: NO MEASUREMENTS (cm) DIASTOLIC (NORMALS) SYSTOLIC (NORMALS) IVSd 1.1 (0.6-1.2) LA Diam 2.8 (1.9-4.0) LVEF 55-60% LVIDd 4.0 (3.5-5.7) LVIDs 2.9 (2.0-3.5) %FS 26% LVPWd 1.1 (0.6-1.2) Ao Diam 2.4 (2.0-3.7) 2 DIMENSIONAL ASSESSMENT: RIGHT ATRIUM: NORMAL LEFT ATRIUM: NORMAL RIGHT VENTRICLE: NORMAL LEFT VENTRICLE: NORMAL TRICUSPID VALVE: NORMAL MITRAL VALVE: NORMAL PULMONIC VALVE: NORMAL AORTIC VALVE: NORMAL PERICARDIAL EFFUSION: NONE AORTIC ROOT: NORMAL LEFT VENTRICULAR WALL MOTION: NORMAL DOPPLER/COLOR FLOW: NORMAL COMMENTS: NORMAL LEFT VENTRICULAR EJECTION FRACTION 55-60%. MODERATE DIASTOLIC DYSFUNCTION. NORMAL WALL MOTION. TECHNOLOGIST: Elena GOYAL
[2021-02-05] MEDS: ATORVASTATIN 10 MG TAB PO SCH (21:14)
[2021-02-06] MEDS: LEVALBUTEROL 1.25 MG/3 ML NEB NEB SCH ×4 (02:00→19:35)
[2021-02-06 06:20] LABS: Magnesium 2.4 mg/dL (1.8-2.4); Potassium 4.4 mmol/L (3.5-5.1)
[2021-02-06 06:21] LABS: Phosphorus 3.3 mg/dL (2.5-4.9)
[2021-02-06] MEDS: VIT C PO SCH (09:00)
[2021-02-06] MEDS: CRANBERRY FRUIT EXTRACT PO SCH (09:00)
[2021-02-06] MEDS: MEDIHONEY 44 ML TOPICAL TUBE TOP SCH (09:00)
[2021-02-06] MEDS: DULERA 200/5 (MOMETASONE/FORMOTEROL) INHALER IH SCH ×2 (09:30→20:23)
[2021-02-06] MEDS: LACTOBACILLUS/ACIDOPHILUS TAB PO SCH ×3 (09:30→20:25)
[2021-02-06] MEDS: POTASSIUM 25 MEQ EFFERV TAB PO SCH ×2 (09:30→20:25)
[2021-02-06] MEDS: METOPROLOL TAR 25 MG TAB PO SCH (09:30)
[2021-02-06] MEDS: predniSONE 10 MG TAB PO SCH ×2 (09:30→17:40)
[2021-02-06] MEDS: RIVAROXABAN 15 MG TABLET PO SCH ×2 (09:30→17:39)
[2021-02-06] MEDS: FOLIC ACID 1 MG TABLET PO SCH (09:30)
[2021-02-06] MEDS: NYSTATIN PWDR 100000 UNIT/GM TOP SCH (09:30)
[2021-02-06] MEDS: SPIRONOLACTONE 25 MG TABLET PO SCH ×2 (12:31→20:25)
[2021-02-06] MEDS: ENSURE HIGH PROTEIN 237 ML CAN PO SCH ×2 (12:33→20:27)
--- NOTE | 2021-02-06 18:48 | P.PN ---
Subjective Date of Service: 02/06/21 Chief Complaint: copd exacerbation/high probability VQ scan Patient reports episodes of shortness of breath last night and almost fell trying to use the bedside. She is also complaining of sediment in her urine. She has no fever. Physical Examination - Vital Signs Temperature: 98.6 F Blood Pressure: 118/51 Pulse: 66 Respirations: 18 Pulse Ox (%): 93 Assessment And Plan - Plan Physical exam GEN: Alert, oriented, NAD, morbidly obese HEENT: Normal conjunctiva, sclera anicteric CV: Regular rate and rhythm, chronic lymphedema Pulm: Nonlabored breathing, no rales or rhonchi or wheezes ABD: Soft, nontender, nondistended Genitourinary: Suprapubic catheter Integumentary: No rashes. Problem List Acute hypoxemic respiratory failure secondary to bilateral PE, and COPD exacerbation Acute on chronic CHF exacerbation, likely secondary to PE New onset atrial fibrillation, paroxysmal Hypokalemia, chronic HTN chronic lymphedema fibromyalgia morbid obesity Chronic suprapubic catheter Component of COPD and CHF exacerbations D-dimer was performed and elevated, allergic to IV contrast. VQ scan with moderatehigh probability of bilateral PE Started on Lovenox and transitioned to Xarelto Pulmonology is following, continue steroids/nebs Respiratory status has improved. She reported intermittent shortness of breath. PE is likely due to prolonged immobility secondary to chronic lymphedema and leg pain at home Urine culture with mixed delmy, off antibiotics, remains afebrile but now complaining of sediment in the urine. We will repeat urine analysis and urine culture. Continue local wound care bilateral chronic lymphedematous legs Antifungal powder for suprapubic area. EKG 02/02 - new A. fib, rate controlled with home metoprolol, converted back to sinus rhythm and 9 PM 02/02. Cardiology consulted Cardiology recommends echocardiogram, and 40 IV Lasix q 8h. This was decreased due to hypotension and hypokalemia. Pulm further changed lasix to spironolactone. Currently rate controlled. Echocardiogram: Normal EF and moderate diastolic dysfunction. VTE: Xarelto Dispo: Rehab versus home with home health.
[2021-02-06 19:56] LABS: Urine Appearance CLOUDY (Clear); Urine Bilirubin NEGATIVE (Negative); Urine Blood 3+ (Negative); Urine Color YELLOW (Yellow); Urine Glucose NEGATIVE (Negative); Urine Protein NEGATIVE (Negative); Urine Urobilinogen 0.2 mg/dL (0.2-1.0)
[2021-02-06 20:15] LABS: Urine Bacteria 20-50 /HPF (<20); Urine Mucus 2+ /HPF (NONE SEEN)
[2021-02-06] MEDS: ATORVASTATIN 10 MG TAB PO SCH (20:25)
[2021-02-06] MEDS: DIPHENHYDRAMINE 25 MG TAB/CAP PO SCH (21:00)
[2021-02-07] MEDS: LEVALBUTEROL 1.25 MG/3 ML NEB NEB SCH ×4 (01:35→20:20)
[2021-02-07 05:58] LABS: Absolute Lymphocytes (CBC) 2.3 K/uL (0.7-4.9); Basophils % 0.7 % (0-1.3); Hematocrit 41.1 % (36.0-45.0); Lymphocytes % 15.9 % (15.3-44.8); MPV 8.6 fL (7.6-11.3); RBC Red Blood Cell Count 4.52 M/uL (3.86-4.86)
[2021-02-07 06:14] LABS: Potassium 4.6 mmol/L (3.5-5.1)
[2021-02-07] MEDS: DULERA 200/5 (MOMETASONE/FORMOTEROL) INHALER IH SCH ×2 (09:00→21:14)
[2021-02-07] MEDS: VIT C PO SCH (09:00)
[2021-02-07] MEDS: MEDIHONEY 44 ML TOPICAL TUBE TOP SCH (09:00)
[2021-02-07] MEDS: NYSTATIN PWDR 100000 UNIT/GM TOP SCH (09:00)
[2021-02-07] MEDS: ENSURE HIGH PROTEIN 237 ML CAN PO SCH ×2 (09:00→21:09)
[2021-02-07] MEDS: CRANBERRY FRUIT EXTRACT PO SCH (09:00)
[2021-02-07] MEDS: LACTOBACILLUS/ACIDOPHILUS TAB PO SCH ×3 (09:51→21:08)
[2021-02-07] MEDS: METOPROLOL TAR 25 MG TAB PO SCH (09:52)
[2021-02-07] MEDS: FOLIC ACID 1 MG TABLET PO SCH (09:52)
[2021-02-07] MEDS: predniSONE 10 MG TAB PO SCH ×2 (09:52→17:09)
[2021-02-07] MEDS: RIVAROXABAN 15 MG TABLET PO SCH ×2 (09:52→17:09)
[2021-02-07] MEDS: SPIRONOLACTONE 25 MG TABLET PO SCH ×2 (09:52→21:07)
[2021-02-07] MEDS: POTASSIUM 25 MEQ EFFERV TAB PO SCH ×2 (09:53→21:08)
--- NOTE | 2021-02-07 12:27 | P.DS ---
Admission Date: 01/31/21 Discharge Date: 02/07/21 Disposition: [place] HOME/HOME HEALTH CARE Discharge Condition: FAIR Reason for Admission: copd exacerbation/high probability VQ scan Consultations: Pulmonary-Dr. Jacobsen Cardiology-Dr. Ann. Brief History of Present Illness: Ms. Angel Plasencia is a 66 yo morbidly obese F with COPD, CHF, HTN, chronic lymphedema recurrent UTIs with indwelling suprapubic catheter who presents with SOB beginning yesterday. She also reports fatigue, nonproductive cough, and wheezing. She said she had an episode of dizziness with ambulation to the bathroom today. She says she has felt like this before but never this severe. She received breathing treatments and IV steroids in the ED, and is admitted for further management. Hospital Course: Diagnosis Acute hypoxemic respiratory failure secondary to bilateral PE. COPD exacerbation Acute on chronic CHF exacerbation. New onset atrial fibrillation, paroxysmal Hypokalemia, chronic HTN chronic lymphedema fibromyalgia morbid obesity Chronic suprapubic catheter And admitted to the medical floor and treated for COPD exacerbation with IV steroid and scheduled bronchodilators. D-dimer was performed and elevated, patient is allergic to IV contrast. VQ scan reported moderatehigh probability of bilateral PE She was started on on Lovenox and transitioned to Xarelto Seen by pulmonary for COPD. Her respiratory status has improved. She reported intermittent shortness of breath. PE is likely due to prolonged immobility. Urine culture showed mixed delmy, off antibiotics, patient was afebrile but now complaining of sediment in the urine. urinalysis shows elevated WBC. Patient was treated briefly with Levaquin. Repeat urine culture is pending. Continude local wound care for bilateral chronic lymphedematous legs Antifungal powder for suprapubic area. EKG 02/02 - new A. fib, rate controlled with home metoprolol, converted back to sinus rhythm and remained in sinus rhythm. Patient seen by cardiology-Dr. Ann. Echocardiogram reported normal EF and moderate diastolic dysfunction. Patient was treated briefly with IV Lasix. She developed hypotension and hypokalemia and IV Lasix later discontinued. Pulm ordered spironolactone. I am told patient was denied swing bed. She is able to transfer with minimal assistance at this time. Patient is discharged to home with home health for PT and nursing. She is prescribed bronchodilators for COPD and a short course of oral prednisone. Vital Signs/Physical Exam: Temp Pulse Resp BP Pulse Ox 97.6 F 66 18 111/57 L 97 02/07/21 12:00 02/07/21 12:00 02/07/21 12:00 02/07/21 12:00 02/07/21 12:00 General: Alert, In no apparent distress, Obese Neck: JVD not distended Respiratory: Clear to auscultation bilaterally, Diminished Cardiovascular: Regular rate/rhythm, Normal S1 S2, Edema (Bilateral lower extremities.) Gastrointestinal: Soft and benign, Non-distended, No tenderness Musculoskeletal: Swelling (Bilateral lower extremities) Neurological: Normal speech, Normal strength at 5/5 x4 extr Lymphatics: Other (Bilateral lower extremity lymphedema) Laboratory Data at Discharge: WBC 14.70 K/uL (4.3-10.9) H D 02/07/21 05:40 Hgb 13.2 g/dL (12.0-15.0) 02/07/21 05:40 Hct 41.1 % (36.0-45.0) 02/07/21 05:40 Plt Count 272 K/uL (152-406) 02/07/21 05:40 PT 12.0 SECONDS (9.5-12.5) 01/31/21 17:00 INR 1.04 01/31/21 17:00 Sodium 140 mmol/L (136-145) 02/07/21 05:40 Potassium 4.6 mmol/L (3.5-5.1) 02/07/21 05:40 BUN 16 mg/dL (7-18) 02/07/21 05:40 Creatinine 0.81 mg/dL (0.55-1.3) 02/07/21 05:40 Glucose 109 mg/dL (74-106) H 02/07/21 05:40 Phosphorus 3.3 mg/dL (2.5-4.9) 02/06/21 05:55 Magnesium 2.4 mg/dL (1.8-2.4) 02/06/21 05:55 Total Bilirubin 0.3 mg/dL (0.2-1.0) 02/03/21 05:59 AST 13 U/L (15-37) L 02/03/21 05:59 ALT 11 U/L (12-78) L 02/03/21 05:59 Alkaline Phosphatase 66 U/L (45-117) 02/03/21 05:59 Triglycerides 71 mg/dL (<150) 02/01/21 06:25 Cholesterol 167 mg/dL (<200) 02/01/21 06:25 HDL Cholesterol 52 mg/dL (40-60) 02/01/21 06:25 Cholesterol/HDL Ratio 3.21 02/01/21 06:25 Home Medications: Lovastatin 1 tab PO BEDTIME 12/15/17 Metoprolol Tartrate [Lopressor*] 1 tab PO BID 09/16/19 Cranberry Fruit Extract/Vit C [Azo Cranberry Softgel] 1 each PO DAILY 01/14/21 Diphenhydramine [Benadryl*] 25 mg PO BEDTIME 01/14/21 Furosemide [Lasix*] 40 mg PO BIDL 01/14/21 Gabapentin 300 mg PO BEDTIME 01/14/21 Folic Acid 1 mg PO DAILY #90 tablet 01/21/21 Hydrocodone 7.5/APAP 325 [[place] 7.5/325 mg*] 1 tab PO BID PRN #10 tab 01/21/21 Benzonatate [Tessalon Perle*] 100 mg PO TIDP PRN #30 cap 02/07/21 Lactobacillus Acidophilus [Acidophilus Lactobacilli] 1 each PO TID 90 Days #30 capsule 02/07/21 Medihoney [Medihoney Woundcare Gel*] 1 appl TOP DAILY #1 tube 02/07/21 Mometasone/Formoterol [Dulera 200 Mcg/5 Mcg Inhaler] 2 puff IH BID #1 inhaler 02/07/21 Nystatin Powder [Mycostatin (Powder)*] 1 appl TOP DAILY #1 btl 02/07/21 Rivaroxaban [Xarelto] 1 each PO BID #51 tab.ds.pk 02/07/21 Spironolactone [Aldactone*] 25 mg PO BID #60 tab 02/07/21 levoFLOXacin [Levaquin] 750 mg PO DAILY #7 tab 02/07/21 predniSONE [Deltasone*] 10 mg PO BIDWM #6 tab 02/07/21 New Medications: Lactobacillus Acidophilus [Acidophilus Lactobacilli] 1 each PO TID 90 Days #30 capsule Spironolactone [Aldactone*] 25 mg PO BID #60 tab predniSONE [Deltasone*] 10 mg PO BIDWM #6 tab Mometasone/Formoterol [Dulera 200 Mcg/5 Mcg Inhaler] 2 puff IH BID #1 inhaler levoFLOXacin [Levaquin] 750 mg PO DAILY #7 tab Medihoney [Medihoney Woundcare Gel*] 1 appl TOP DAILY #1 tube Nystatin Powder [Mycostatin (Powder)*] 1 appl TOP DAILY #1 btl Benzonatate [Tessalon Perle*] 100 mg PO TIDP PRN #30 cap PRN Reason: Cough Rivaroxaban [Xarelto] 1 each PO BID #51 tab.ds.pk Physician Discharge Instructions: Your PCP Dr. Gutierrez need to refill your xarelto 20 mg daily when you run out, to c ontinue treatment for the blood clots in your lungs. Diet: AHA Activity: Fall precautions Followup: Unknown,U [Primary Care Provider] - Time spent managing pt's care (in minutes): 42
--- NOTE | 2021-02-07 12:54 | P.PN ---
Subjective Date of Service: 02/07/21 Chief Complaint: copd exacerbation/high probability VQ scan Patient seen sitting up in a chair. She has no new complaint. She has no fever. Physical Examination - Vital Signs Temperature: 97.6 F Blood Pressure: 111/57 Pulse: 66 Respirations: 18 Pulse Ox (%): 97 Assessment And Plan - Plan Physical exam GEN: Alert, oriented, NAD, morbidly obese HEENT: Normal conjunctiva, sclera anicteric CV: Regular rate and rhythm, chronic lymphedema Pulm: Nonlabored breathing, no rales or rhonchi or wheezes ABD: Soft, nontender, nondistended Genitourinary: Suprapubic catheter Integumentary: No rashes. Problem List Acute hypoxemic respiratory failure secondary to bilateral PE, and COPD exacerbation Acute on chronic CHF exacerbation, likely secondary to PE New onset atrial fibrillation, paroxysmal Hypokalemia, chronic HTN chronic lymphedema fibromyalgia morbid obesity Chronic suprapubic catheter Continue Xarelto for PE. Pulmonology is following, continue steroids/nebs Respiratory status has improved. She report intermittent shortness of breath especially with exertion. PE is likely due to prolonged immobility Urine culture with mixed delmy, treated briefly with Levaquin. She remains afebrile but now complaining of sediment in the urine. Repeat UA is positive for UTI. Urine culture is pending. Continue local wound care bilateral chronic lymphedematous legs Antifungal powder for suprapubic area. EKG 02/02 - new A. fib, rate controlled with home metoprolol, converted back to sinus rhythm. Seen by cardiology. Patient treated briefly with IV Lasix for CHF exacerbation. This was decreased and later discontinued due to hypotension and hypokalemia. Pulm started patient on spironolactone. Echocardiogram: Normal EF and moderate diastolic dysfunction. I am told patient was denied rehab on a swing bed. VTE: Xarelto Dispo: Home with home health.
[2021-02-07] MEDS ORDERED: levoFLOXacin 750 MG TAB PO SCH (12:55)
[2021-02-07 13:34] LABS: Magnesium 2.5 mg/dL (1.8-2.4); Phosphorus 2.9 mg/dL (2.5-4.9)
[2021-02-07] MEDS ORDERED: VALPROATE SODIUM INJ 500 MG in NA CHLORIDE 0.9% 100 ML IV ONE (14:00)
[2021-02-07] MEDS ORDERED: levETIRAcetam 1,000 MG in NA CHLORIDE 0.9% 100 ML IV ONE (14:00)
[2021-02-07] MEDS: DIPHENHYDRAMINE 25 MG TAB/CAP PO SCH (21:00)
[2021-02-07] MEDS: ATORVASTATIN 10 MG TAB PO SCH (21:07)
[2021-02-08] MEDS: LEVALBUTEROL 1.25 MG/3 ML NEB NEB SCH ×4 (02:30→19:35)
[2021-02-08 06:05] LABS: Absolute Lymphocytes (CBC) 2.1 K/uL (0.7-4.9); Basophils % 0.8 % (0-1.3); Lymphocytes % 13.1 % (15.3-44.8); RBC Red Blood Cell Count 4.83 M/uL (3.86-4.86)
[2021-02-08 06:27] LABS: Potassium 4.4 mmol/L (3.5-5.1)
[2021-02-08] MEDS: NYSTATIN PWDR 100000 UNIT/GM TOP SCH (09:00)
[2021-02-08] MEDS: predniSONE 10 MG TAB PO SCH ×2 (09:00→17:45)
[2021-02-08] MEDS ORDERED: CEFEPIME 1 GM in NA CHLORIDE 0.9% 100 ML IV SCH (09:00)
[2021-02-08] MEDS: CRANBERRY FRUIT EXTRACT PO SCH (09:00)
[2021-02-08] MEDS: FOLIC ACID 1 MG TABLET PO SCH (09:00)
[2021-02-08] MEDS ORDERED: CEFEPIME 1 GM/VIAL IV SCH (09:00)
[2021-02-08] MEDS: VIT C PO SCH (09:00)
[2021-02-08] MEDS: ENSURE HIGH PROTEIN 237 ML CAN PO SCH ×2 (09:00→21:16)
[2021-02-08] MEDS: SPIRONOLACTONE 25 MG TABLET PO SCH ×2 (09:00→21:12)
[2021-02-08] MEDS: LACTOBACILLUS/ACIDOPHILUS TAB PO SCH ×3 (09:00→21:12)
[2021-02-08] MEDS: POTASSIUM 25 MEQ EFFERV TAB PO SCH ×2 (09:00→21:11)
[2021-02-08] MEDS: DULERA 200/5 (MOMETASONE/FORMOTEROL) INHALER IH SCH ×2 (09:00→21:15)
[2021-02-08] MEDS: RIVAROXABAN 15 MG TABLET PO SCH ×2 (09:00→17:45)
[2021-02-08] MEDS: METOPROLOL TAR 25 MG TAB PO SCH (09:00)
[2021-02-08] MEDS: MEDIHONEY 44 ML TOPICAL TUBE TOP SCH (09:00)
[2021-02-08 09:14] LABS: Blood Morphology Comment NOT SEEN (NOT SEEN); Platelet Estimate ADEQ
--- NOTE | 2021-02-08 10:50 | P.CNS ---
Date of Consult: 02/08/21 Chief Complaint: copd exacerbation/high probability VQ scan History of Present Illness: The patient is a 58-year-old female with a past medical history of morbid obesity, COPD, CHF, hypertension, chronic bilateral lower extremity lymphedema, and recurrent UTIs with indwelling suprapubic catheter who presented to the emergency department secondary to shortness of breath. CT showed pulmonary embolism. Urinalysis positive for UTI. Urine culture growing E coli, sensitive to nitrofurantoin. Infectious disease has been consulted to manage patient's antibiotic regimen. Patient currently denies nausea/vomiting/shortness breast/chest pain. Allergies amoxicillin [From Augmentin] Allergy (Severe, Verified 09/16/19 23:49) diarrhea, nausea, vomiting ceftriaxone [From Rocephin] Allergy (Severe, Verified 09/16/19 23:49) Itching/Hives/Rash fentanyl Allergy (Severe, Verified 09/16/19 23:49) Itching/Hives/Rash iodine Allergy (Severe, Verified 09/16/19 23:49) Unknown lincomycin [From Lincocin] Allergy (Severe, Verified 09/16/19 23:49) rashes,headaches pneumococcal vaccine [From Pneumovax 23] Allergy (Severe, Verified 09/16/19 23:49) sick more than a week sulfamethoxazole [From Bactrim] Allergy (Severe, Verified 09/16/19 23:49) Anaphylaxis trifluoperazine [From Stelazine] Allergy (Severe, Verified 09/16/19 23:49) itching and rashes vancomycin Allergy (Severe, Verified 09/16/19 23:49) renal failure soap [From Betadine] Allergy (Mild, Verified 09/16/19 23:49) Hives/Rash Sulfa (Sulfonamide Antibiotics) Allergy (Mild, Verified 09/16/19 23:49) Anaphylaxis aloe vera Allergy (Verified 09/16/19 23:49) Itching celery Allergy (Verified 09/16/19 23:49) Nausea/Vomiting Macrolide Antibiotics Allergy (Verified 09/16/19 23:49) Itching/Hives/Rash FLU VACCINE Allergy (Severe, Uncoded 09/16/19 23:49) sick for more than a week aloe vera Allergy (Uncoded 09/16/19 23:49) Unknown hall peppers Allergy (Uncoded 09/16/19 23:49) Nausea/Vomiting celery Allergy (Uncoded 09/16/19 23:49) Unknown FLU VAC Allergy (Uncoded 09/16/19 23:49) Unknown peppers Allergy (Uncoded 09/16/19 23:49) Unknown Home Medications: Lovastatin 1 tab PO BEDTIME 12/15/17 Metoprolol Tartrate [Lopressor*] 1 tab PO BID 09/16/19 Cranberry Fruit Extract/Vit C [Azo Cranberry Softgel] 1 each PO DAILY 01/14/21 Diphenhydramine [Benadryl*] 25 mg PO BEDTIME 01/14/21 Furosemide [Lasix*] 40 mg PO BIDL 01/14/21 Gabapentin 300 mg PO BEDTIME 01/14/21 Folic Acid 1 mg PO DAILY #90 tablet 01/21/21 Hydrocodone 7.5/APAP 325 [[place] 7.5/325 mg*] 1 tab PO BID PRN #10 tab 01/21/21 Benzonatate [Tessalon Perle*] 100 mg PO TIDP PRN #30 cap 02/07/21 Lactobacillus Acidophilus [Acidophilus Lactobacilli] 1 each PO TID 90 Days #30 capsule 02/07/21 Medihoney [Medihoney Woundcare Gel*] 1 appl TOP DAILY #1 tube 02/07/21 Mometasone/Formoterol [Dulera 200 Mcg/5 Mcg Inhaler] 2 puff IH BID #1 inhaler 02/07/21 Nystatin Powder [Mycostatin (Powder)*] 1 appl TOP DAILY #1 btl 02/07/21 Rivaroxaban [Xarelto] 1 each PO BID #51 tab.ds.pk 02/07/21 Spironolactone [Aldactone*] 25 mg PO BID #60 tab 02/07/21 levoFLOXacin [Levaquin] 750 mg PO DAILY #7 tab 02/07/21 predniSONE [Deltasone*] 10 mg PO BIDWM #6 tab 02/07/21 - Past Medical/Surgical History Diabetic: No -: Lymphedema - bilateral leg -: Morbid obesity with Hx of Lap. Band -: Peripheral neuropathy -: Osteoarthritis -: mild COPD -: mild eczema -: Depression -: Sleep apnea -: CHF -: CRE -: hypertension -: frequent UTIs -: -: Lap band 2008 -: Tonsillectomy and adenoidectomy Psychosocial/ Personal History: , Disabled. One son. - Family History Father Medical History: Heart disease Mother Medical History: Hypertension, Stroke Notes: erin deirdre syndrome - Social History Smoking Status: Unknown if ever smoked Alcohol use: No CD- Drugs: No Caffeine use: Yes Place of Residence: Home Review of Systems 10-point ROS is otherwise unremarkable Physical Examination Temp Pulse Resp BP Pulse Ox 98.3 F 76 20 122/58 L 91 02/08/21 08:00 02/08/21 08:00 02/08/21 08:00 02/08/21 08:00 02/08/21 08:00 General: Obese HEENT: Atraumatic, Normocephalic Neck: Supple, 2+ carotid pulse no bruit Respiratory: Clear to auscultation bilaterally, Normal air movement Cardiovascular: No edema, Regular rate/rhythm Capillary refill: <2 Seconds Gastrointestinal: Normal bowel sounds, Soft and benign Integumentary: Other (Bilateral lower extremity lymphedema, bilateral posterior thigh DTI) Conclusions/Impression: Assessment/plan UTI Urine culture growing E coli, sensitive to nitrofurantoin. Recommend continuing this antibiotic for 5-7 days. PE Bilateral lower extremity lymphedema Bilateral posterior thigh DTI -medical management per primary team -plan of care discussed with Dr. Hansen -thank you for consultation.
--- NOTE | 2021-02-08 14:22 | P.PN ---
Subjective Date of Service: 02/08/21 Chief Complaint: copd exacerbation/high probability VQ scan Patient seen sitting up. She has no new complaint. She ambulated during physical therapy with standby assist. Physical Examination - Vital Signs Temperature: 97.6 F Blood Pressure: 104/65 Pulse: 88 Respirations: 18 Pulse Ox (%): 94 Assessment And Plan - Plan Physical exam GEN: Alert, oriented, NAD, morbidly obese HEENT: Normal conjunctiva, sclera anicteric CV: Regular rate and rhythm, chronic lymphedema Pulm: Nonlabored breathing, no rales or rhonchi or wheezes ABD: Soft, nontender, nondistended Genitourinary: Suprapubic catheter Integumentary: No rashes. Problem List Acute hypoxemic respiratory failure secondary to bilateral PE, and COPD exacerbation Acute on chronic CHF exacerbation, likely secondary to PE New onset atrial fibrillation, paroxysmal Hypokalemia, chronic HTN chronic lymphedema fibromyalgia morbid obesity Chronic suprapubic catheter Continue Xarelto for PE. Continue steroids/nebs Respiratory status has improved. She report intermittent shortness of breath especially with exertion. PE is likely due to prolonged immobility Urine culture with mixed delmy, treated briefly with Levaquin. She remains afebrile but now complaining of sediment in the urine. Repeat UA is positive for UTI. Repeat urine culture: E. coli sensitive to multiple antibiotics and resistant to flouroquinolones. Patient with multiple antibiotics allergy. Oral Levaquin changed to Macrobid. Infectious disease consulted to assist with management. Continue local wound care bilateral chronic lymphedematous legs Antifungal powder for suprapubic area. EKG 02/02 - new A. fib, rate controlled with home metoprolol, converted back to sinus rhythm. Seen by cardiology. Patient treated briefly with IV Lasix for CHF exacerbation. This was decreased and later discontinued due to hypotension and hypokalemia. Pulm started patient on spironolactone. Echocardiogram: Normal EF and moderate diastolic dysfunction. Patient request to go to swing bed at [facility] and refused to go home after she was discharged yesterday. Social service assisting with arrangement for swing bed placement pending insurance authorization. VTE: Xarelto Dispo: Home with home health.
[2021-02-08] MEDS: DIPHENHYDRAMINE 25 MG TAB/CAP PO SCH (21:00)
[2021-02-08] MEDS: NITROFURAN MACRO 100 MG CAP PO SCH (21:12)
[2021-02-08] MEDS: ATORVASTATIN 10 MG TAB PO SCH (21:13)
[2021-02-09] MEDS: LEVALBUTEROL 1.25 MG/3 ML NEB NEB SCH ×4 (02:15→20:00)
[2021-02-09] MEDS: FOLIC ACID 1 MG TABLET PO SCH (08:45)
[2021-02-09] MEDS: RIVAROXABAN 15 MG TABLET PO SCH ×2 (08:45→16:10)
[2021-02-09] MEDS: LACTOBACILLUS/ACIDOPHILUS TAB PO SCH ×3 (08:45→20:43)
[2021-02-09] MEDS: predniSONE 10 MG TAB PO SCH ×2 (08:45→16:10)
[2021-02-09] MEDS: NITROFURAN MACRO 100 MG CAP PO SCH ×2 (08:45→20:42)
[2021-02-09] MEDS: MEDIHONEY 44 ML TOPICAL TUBE TOP SCH (09:00)
[2021-02-09] MEDS: CRANBERRY FRUIT EXTRACT PO SCH (09:00)
[2021-02-09] MEDS: DULERA 200/5 (MOMETASONE/FORMOTEROL) INHALER IH SCH ×2 (09:00→20:45)
[2021-02-09] MEDS: NYSTATIN PWDR 100000 UNIT/GM TOP SCH (09:00)
[2021-02-09] MEDS: VIT C PO SCH (09:00)
[2021-02-09] MEDS: ENSURE HIGH PROTEIN 237 ML CAN PO SCH ×2 (09:00→20:42)
[2021-02-09] MEDS: METOPROLOL TAR 25 MG TAB PO SCH (09:00)
[2021-02-09] MEDS: POTASSIUM 25 MEQ EFFERV TAB PO SCH ×2 (09:49→20:42)
[2021-02-09] MEDS: SPIRONOLACTONE 25 MG TABLET PO SCH ×2 (09:51→20:43)
--- NOTE | 2021-02-09 14:17 | P.PN ---
Subjective Date of Service: 02/09/21 Chief Complaint: copd exacerbation/high probability VQ scan Patient seen sitting up in bed. She has no new complaint. Patient is participating in physical therapy. Physical Examination - Vital Signs Temperature: 97.6 F Blood Pressure: 112/53 Pulse: 67 Respirations: 18 Pulse Ox (%): 93 Assessment And Plan - Plan Physical exam GEN: Alert, oriented, NAD, morbidly obese HEENT: Normal conjunctiva, sclera anicteric CV: Regular rate and rhythm, chronic lymphedema Pulm: Nonlabored breathing, no rales or rhonchi or wheezes ABD: Soft, nontender, nondistended Genitourinary: Suprapubic catheter Integumentary: No rashes. Problem List Acute hypoxemic respiratory failure secondary to bilateral PE, and COPD exacerbation Acute on chronic CHF exacerbation, likely secondary to PE New onset atrial fibrillation, paroxysmal Hypokalemia, chronic HTN chronic lymphedema fibromyalgia morbid obesity Chronic suprapubic catheter Continue Xarelto for PE. Continue steroids/nebs Respiratory status has improved. She report intermittent shortness of breath especially with exertion. PE is likely due to prolonged immobility Urine culture initially reported mixed delmy, treated briefly with Levaquin. Repeat urine culture done due to sediment in the urine growing: E. coli sensitive to multiple antibiotics and resistant to flouroquinolones. Patient with multiple antibiotics allergy. Oral Levaquin changed to Macrobid. Infectious disease assisting with management Continue local wound care bilateral chronic lymphedematous legs Antifungal powder for suprapubic area. EKG 02/02 - new A. fib, rate controlled with home metoprolol, converted back to sinus rhythm. Seen by cardiology. Patient treated briefly with IV Lasix for CHF exacerbation. This was decreased and later discontinued due to hypotension and hypokalemia. Pulm started patient on spironolactone. Echocardiogram: Normal EF and moderate diastolic dysfunction. Patient request to go to swing bed at [facility] and refused to go home after she was discharged. Social service assisting with arrangement for swing bed placement pending insurance authorization. VTE: Xarelto Dispo: Home with home health.
[2021-02-09] MEDS ORDERED: HYDROCORTISONE 0.5% CREAM 30 GM TOP PRN (19:18)
[2021-02-09] MEDS: ATORVASTATIN 10 MG TAB PO SCH (20:43)
[2021-02-09] MEDS: DIPHENHYDRAMINE 25 MG TAB/CAP PO SCH (20:44)
[2021-02-10] MEDS: LEVALBUTEROL 1.25 MG/3 ML NEB NEB SCH ×4 (02:20→19:55)
[2021-02-10 06:01] LABS: Absolute Lymphocytes (CBC) 2.6 K/uL (0.7-4.9); Basophils % 1.3 % (0-1.3); Lymphocytes % 14.4 % (15.3-44.8); MPV 8.8 fL (7.6-11.3); RBC Red Blood Cell Count 5.24 M/uL (3.86-4.86)
[2021-02-10 06:18] LABS: Potassium 4.9 mmol/L (3.5-5.1)
[2021-02-10 07:09] LABS: Anisocytosis 1+; Blood Morphology Comment NOTED (NOT SEEN); Platelet Estimate ADEQ; Polychromasia SLIGHT
[2021-02-10] MEDS: ENSURE HIGH PROTEIN 237 ML CAN PO SCH ×2 (09:00→20:56)
[2021-02-10] MEDS: NYSTATIN PWDR 100000 UNIT/GM TOP SCH (09:00)
[2021-02-10] MEDS: MEDIHONEY 44 ML TOPICAL TUBE TOP SCH (09:00)
[2021-02-10] MEDS: predniSONE 10 MG TAB PO SCH ×2 (09:50→16:30)
[2021-02-10] MEDS: DULERA 200/5 (MOMETASONE/FORMOTEROL) INHALER IH SCH ×2 (09:50→21:05)
[2021-02-10] MEDS: LACTOBACILLUS/ACIDOPHILUS TAB PO SCH ×3 (09:50→20:57)
[2021-02-10] MEDS: METOPROLOL TAR 25 MG TAB PO SCH (09:50)
[2021-02-10] MEDS: NITROFURAN MACRO 100 MG CAP PO SCH ×2 (09:50→20:57)
[2021-02-10] MEDS: RIVAROXABAN 15 MG TABLET PO SCH ×2 (09:50→16:30)
[2021-02-10] MEDS: FOLIC ACID 1 MG TABLET PO SCH (09:50)
[2021-02-10] MEDS: SPIRONOLACTONE 25 MG TABLET PO SCH ×2 (09:50→20:57)
[2021-02-10] MEDS: CRANBERRY FRUIT EXTRACT PO SCH (09:50)
[2021-02-10] MEDS: VIT C PO SCH (09:50)
--- NOTE | 2021-02-10 14:07 | P.PN ---
Subjective Date of Service: 02/10/21 Chief Complaint: copd exacerbation/high probability VQ scan Patient has no new complaints. No issues overnight. She denies shortness of breath at the moment. Physical Examination - Vital Signs Temperature: 97.9 F Blood Pressure: 133/60 Pulse: 58 Respirations: 18 Pulse Ox (%): 94 Assessment And Plan - Plan Physical exam GEN: Alert, oriented, NAD, morbidly obese HEENT: Normal conjunctiva, sclera anicteric CV: Regular rate and rhythm, chronic lymphedema Pulm: Nonlabored breathing, no rales or rhonchi or wheezes ABD: Soft, nontender, nondistended Genitourinary: Suprapubic catheter Integumentary: No rashes. Problem List Acute hypoxemic respiratory failure secondary to bilateral PE, and COPD exacerbation Acute on chronic CHF exacerbation, likely secondary to PE New onset atrial fibrillation, paroxysmal Hypokalemia, chronic HTN chronic lymphedema fibromyalgia morbid obesity Chronic suprapubic catheter Continue Xarelto for PE. Continue steroids/nebs Respiratory status has improved. PE is likely due to prolonged immobility Urine culture initially reported mixed delmy, treated briefly with Levaquin. Repeat urine culture done due to sediment in the urine growing: E. coli sensitive to multiple antibiotics and resistant to flouroquinolones. Patient with multiple antibiotics allergy. Oral Levaquin changed to Macrobid. Infectious disease assisting with management Continue local wound care bilateral chronic lymphedematous legs Antifungal powder for suprapubic area. EKG 02/02 - new A. fib, rate controlled with home metoprolol, converted back to sinus rhythm. Seen by cardiology. Patient treated briefly with IV Lasix for CHF exacerbation. This was decreased and later discontinued due to hypotension and hypokalemia. Pulm started patient on spironolactone. Echocardiogram: Normal EF and moderate diastolic dysfunction. Patient request to go to swing bed at [facility] and refused to go home after she was discharged. Social service assisting with arrangement for swing bed placement pending insurance authorization. VTE: Xarelto Dispo: Home with home health.
[2021-02-10] MEDS: ATORVASTATIN 10 MG TAB PO SCH (20:57)
[2021-02-10] MEDS: DIPHENHYDRAMINE 25 MG TAB/CAP PO SCH (20:59)
[2021-02-10] MEDS: POTASSIUM 25 MEQ EFFERV TAB PO SCH (21:00)
[2021-02-11] MEDS: LEVALBUTEROL 1.25 MG/3 ML NEB NEB SCH ×4 (01:35→20:10)
[2021-02-11 05:32] LABS: Basophils % 0.8 % (0-1.3); Hematocrit 46.3 % (36.0-45.0); RBC Red Blood Cell Count 5.11 M/uL (3.86-4.86)
[2021-02-11 05:54] LABS: Potassium 4.2 mmol/L (3.5-5.1)
[2021-02-11 08:33] LABS: Blood Morphology Comment NOT SEEN (NOT SEEN); Platelet Estimate ADEQ
[2021-02-11] MEDS: CRANBERRY FRUIT EXTRACT PO SCH (09:00)
[2021-02-11] MEDS: DULERA 200/5 (MOMETASONE/FORMOTEROL) INHALER IH SCH ×2 (09:00→20:44)
[2021-02-11] MEDS: ENSURE HIGH PROTEIN 237 ML CAN PO SCH ×2 (09:00→20:44)
[2021-02-11] MEDS: POTASSIUM 25 MEQ EFFERV TAB PO SCH ×2 (09:00→20:42)
[2021-02-11] MEDS: MEDIHONEY 44 ML TOPICAL TUBE TOP SCH (09:00)
[2021-02-11] MEDS: NYSTATIN PWDR 100000 UNIT/GM TOP SCH (09:00)
[2021-02-11] MEDS: VIT C PO SCH (09:00)
[2021-02-11] MEDS: NITROFURAN MACRO 100 MG CAP PO SCH ×2 (09:00→20:45)
[2021-02-11] MEDS: METOPROLOL TAR 25 MG TAB PO SCH (10:00)
[2021-02-11] MEDS: predniSONE 10 MG TAB PO SCH ×2 (10:00→17:38)
[2021-02-11] MEDS: SPIRONOLACTONE 25 MG TABLET PO SCH ×2 (10:00→20:42)
[2021-02-11] MEDS: LACTOBACILLUS/ACIDOPHILUS TAB PO SCH ×3 (10:00→20:44)
[2021-02-11] MEDS: RIVAROXABAN 15 MG TABLET PO SCH ×2 (10:00→17:38)
[2021-02-11] MEDS: FOLIC ACID 1 MG TABLET PO SCH (10:00)
--- NOTE | 2021-02-11 12:37 | P.PN ---
Subjective Date of Service: 02/11/21 Chief Complaint: copd exacerbation/high probability VQ scan Patient has no new complaints. No issues overnight. Physical Examination - Vital Signs Temperature: 98 F Blood Pressure: 133/63 Pulse: 98 Respirations: 20 Pulse Ox (%): 93 Assessment And Plan - Plan Physical exam GEN: Alert, oriented, NAD, morbidly obese HEENT: Normal conjunctiva, sclera anicteric CV: Regular rate and rhythm, chronic lymphedema Pulm: Nonlabored breathing, no rales or rhonchi or wheezes ABD: Soft, nontender, nondistended Genitourinary: Suprapubic catheter Integumentary: No rashes. Problem List Acute hypoxemic respiratory failure secondary to bilateral PE, and COPD exacerbation Acute on chronic CHF exacerbation, likely secondary to PE New onset atrial fibrillation, paroxysmal Hypokalemia, chronic HTN chronic lymphedema fibromyalgia morbid obesity Chronic suprapubic catheter Continue Xarelto for PE. Leukocytosis trending up. This could be steroid-induced. Patient is asymptomatic. She has no fever. Continue steroids/nebs Respiratory status has improved. PE is likely due to prolonged immobility Urine culture initially reported mixed delmy, treated briefly with Levaquin. Repeat urine culture done due to sediment in the urine growing: E. coli sensitive to multiple antibiotics and resistant to flouroquinolones. Patient with multiple antibiotics allergy. Oral Levaquin changed to Macrobid. Infectious disease assisting with management Continue local wound care bilateral chronic lymphedematous legs Antifungal powder for suprapubic area. EKG 02/02 - new A. fib, rate controlled with home metoprolol, converted back to sinus rhythm. Seen by cardiology. Patient treated briefly with IV Lasix for CHF exacerbation. This was decreased and later discontinued due to hypotension and hypokalemia. On Aldactone per pulmonary Echocardiogram: Normal EF and moderate diastolic dysfunction. Social service assisting with arrangement for swing bed placement pending insurance authorization. VTE: Xarelto Dispo: Home with home health.
[2021-02-11] MEDS: BENZONATATE 100 MG CAP PO PRN (17:45)
[2021-02-11] MEDS: DIPHENHYDRAMINE 25 MG TAB/CAP PO SCH (20:43)
[2021-02-11] MEDS: ATORVASTATIN 10 MG TAB PO SCH (20:44)
[2021-02-12] MEDS: LEVALBUTEROL 1.25 MG/3 ML NEB NEB SCH ×4 (02:00→20:35)
[2021-02-12 05:31] LABS: Absolute Lymphocytes (CBC) 2.1 K/uL (0.7-4.9); Basophils % 0.7 % (0-1.3); Lymphocytes % 11.5 % (15.3-44.8); RBC Red Blood Cell Count 5.16 M/uL (3.86-4.86)
[2021-02-12 05:34] LABS: Potassium 4.2 mmol/L (3.5-5.1)
[2021-02-12] MEDS: DULERA 200/5 (MOMETASONE/FORMOTEROL) INHALER IH SCH ×2 (09:00→21:40)
[2021-02-12] MEDS: METOPROLOL TAR 25 MG TAB PO SCH (09:00)
[2021-02-12] MEDS: NYSTATIN PWDR 100000 UNIT/GM TOP SCH (09:00)
[2021-02-12] MEDS: ENSURE HIGH PROTEIN 237 ML CAN PO SCH ×2 (09:00→21:00)
[2021-02-12] MEDS: MEDIHONEY 44 ML TOPICAL TUBE TOP SCH (09:00)
[2021-02-12] MEDS: FOLIC ACID 1 MG TABLET PO SCH (10:00)
[2021-02-12] MEDS: RIVAROXABAN 15 MG TABLET PO SCH ×2 (10:00→18:00)
[2021-02-12] MEDS: CRANBERRY FRUIT EXTRACT PO SCH (10:00)
[2021-02-12] MEDS: predniSONE 10 MG TAB PO SCH ×2 (10:00→18:00)
[2021-02-12] MEDS: NITROFURAN MACRO 100 MG CAP PO SCH (10:00)
[2021-02-12] MEDS: SPIRONOLACTONE 25 MG TABLET PO SCH ×2 (10:00→21:33)
[2021-02-12] MEDS: VIT C PO SCH (10:00)
[2021-02-12] MEDS: LACTOBACILLUS/ACIDOPHILUS TAB PO SCH ×3 (10:15→21:39)
[2021-02-12] MEDS ORDERED: FLEET ENEMA ADULT PR ONE (10:47)
--- NOTE | 2021-02-12 13:17 | P.PN ---
Subjective Date of Service: 02/12/21 Chief Complaint: copd exacerbation/high probability VQ scan Patient complaining of constipation. No issues overnight. Physical Examination - Vital Signs Temperature: 98.1 F Blood Pressure: 124/65 Pulse: 109 Respirations: 18 Pulse Ox (%): 98 Assessment And Plan - Plan Physical exam GEN: Alert, oriented, NAD, morbidly obese HEENT: Normal conjunctiva, sclera anicteric CV: Regular rate and rhythm, chronic lymphedema Pulm: Nonlabored breathing, no rales or rhonchi or wheezes ABD: Soft, nontender, nondistended Genitourinary: Suprapubic catheter Integumentary: No rashes. Problem List Acute hypoxemic respiratory failure secondary to bilateral PE, and COPD exacerbation Acute on chronic CHF exacerbation, likely secondary to PE New onset atrial fibrillation, paroxysmal Hypokalemia, chronic HTN chronic lymphedema fibromyalgia morbid obesity Chronic suprapubic catheter Continue Xarelto for PE. Leukocytosis trending up. This could be steroid-induced. Patient is asymptomatic. She has no fever. Continue steroids/nebs Respiratory status has improved. PE is likely due to prolonged immobility Urine culture initially reported mixed delmy, treated briefly with Levaquin. Repeat urine culture done due to sediment in the urine growing: E. coli sensitive to multiple antibiotics and resistant to flouroquinolones. Patient with multiple antibiotics allergy. Oral Levaquin changed to Macrobid. Infectious disease assisting with management Continue local wound care bilateral chronic lymphedematous legs Antifungal powder for suprapubic area. EKG 02/02 - new A. fib, rate controlled with home metoprolol, converted back to sinus rhythm. Seen by cardiology. Patient treated briefly with IV Lasix for CHF exacerbation. This was decreased and later discontinued due to hypotension and hypokalemia. On Aldactone per pulmonary Echocardiogram: Normal EF and moderate diastolic dysfunction. Patient requested for enema for constipation. Social service assisting with arrangement for swing bed placement pending insurance authorization. VTE: Xarelto Dispo: Home with home health.
[2021-02-12] MEDS: DIPHENHYDRAMINE 25 MG TAB/CAP PO SCH (21:39)
[2021-02-12] MEDS: POTASSIUM 25 MEQ EFFERV TAB PO SCH (21:39)
[2021-02-12] MEDS: ATORVASTATIN 10 MG TAB PO SCH (21:39)
[2021-02-13 02:12] VITALS: O2SAT 98
[2021-02-13] MEDS: LEVALBUTEROL 1.25 MG/3 ML NEB NEB SCH ×3 (02:38→14:00)
[2021-02-13 05:37] LABS: MPV 8.8 fL (7.6-11.3); RBC Red Blood Cell Count 5.02 M/uL (3.86-4.86)
[2021-02-13 05:50] LABS: Magnesium 2.4 mg/dL (1.8-2.4); Potassium 4.2 mmol/L (3.5-5.1)
[2021-02-13] MEDS: CRANBERRY FRUIT EXTRACT PO SCH (09:00)
[2021-02-13] MEDS: MEDIHONEY 44 ML TOPICAL TUBE TOP SCH (09:00)
[2021-02-13] MEDS: ENSURE HIGH PROTEIN 237 ML CAN PO SCH (09:00)
[2021-02-13] MEDS: VIT C PO SCH (09:00)
[2021-02-13] MEDS: NYSTATIN PWDR 100000 UNIT/GM TOP SCH (09:00)
[2021-02-13] MEDS: DULERA 200/5 (MOMETASONE/FORMOTEROL) INHALER IH SCH (09:00)
[2021-02-13] MEDS: SPIRONOLACTONE 25 MG TABLET PO SCH (10:00)
[2021-02-13] MEDS: METOPROLOL TAR 25 MG TAB PO SCH (10:00)
[2021-02-13] MEDS: POTASSIUM 25 MEQ EFFERV TAB PO SCH (10:00)
[2021-02-13] MEDS: RIVAROXABAN 15 MG TABLET PO SCH (10:00)
[2021-02-13] MEDS: FOLIC ACID 1 MG TABLET PO SCH (10:00)
[2021-02-13] MEDS: LACTOBACILLUS/ACIDOPHILUS TAB PO SCH (10:00)
[2021-02-13] MEDS: predniSONE 10 MG TAB PO SCH (10:00)
[2021-02-13] MEDS: NITROFURAN MACRO 100 MG CAP PO SCH (10:00)
[2021-02-13] MEDS: BENZONATATE 100 MG CAP PO PRN (11:35)
[2021-02-13 12:56] VITALS: BP 140/64; TEMP 97.4
--- NOTE | 2021-02-13 20:24 | P.DS ---
Admission Date: 01/31/21 Discharge Date: 02/13/21 Disposition: DC HOME/HOME HEALTH CARE Discharge Condition: FAIR Reason for Admission: Hypoxia Consultations: Pulmonology - Dr. Jacobsen Infectious Disease - Dr. Hansen Procedures: CXR (01/31): Mild bilateral interstitial lung opacities are present bilaterally which may represent interstitial pulmonary edema or a viral infection. The heart is upper limit normal in size. No displaced fractures. CXR (02/02): IMPRESSION: Partial resolution in the mild pulmonary opacities which may represent pneumonitis or viral pneumonia VQ Scan (02/02): FINDINGS: Moderate segmental mismatched perfusion defect is visualized within the each lung. IMPRESSION: Bilateral moderate segmental mismatched perfusion defect place this patient as having an intermediate to high probability for a pulmonary embolus CXR (02/04): Mild interstitial prominence throughout both lungs is unchanged. The heart is normal in size. No displaced fractures. IMPRESSION: Stable chest since 02/02/2021. Echo (02/05): normal LVEF: 55-60%, moderate diastolic dysfunction. normal wall motion Problem List Acute hypoxemic respiratory failure secondary to bilateral PE, acute on chronic diastolic CHF exacerbation, and acute COPD exacerbation Acute on chronic CHF exacerbation (diastolic) New onset atrial fibrillation, paroxysmal UTI with chronic suprapubic catheter Hypokalemia, chronic HTN chronic lymphedema fibromyalgia morbid obesity Chronic suprapubic catheter Brief History of Present Illness: 66 yo morbidly obese F with COPD, CHF, HTN, chronic lymphedema recurrent UTIs with indwelling suprapubic catheter who presents with SOB beginning yesterday. She also reports fatigue, nonproductive cough, and wheezing. She said she had an episode of dizziness with ambulation to the bathroom today. She says she has felt like this before but never this severe. She received breathing treatments and IV steroids in the ED, and is admitted for further management. Hospital Course: Patient initially treated for COPD and CHF exacerbations. She had improvement in her wheezing and volume status but remained hypoxic, felt more short of breath than usual, and tachycardic. A d-dimer was obtained and elevated. She was not a good candidate for CTA given her renal function, so a VQ scan was performed and high probability for b/l PEs. Patient had continued improvement with treatment for COPD/CHF/PEs. She diuresed ~40lb of water weight. Her initial UA was weakly suggestive for UTI / developing UTI, however patient denied any symptoms. She was monitored off antibiotics, and developed UTI symptoms ~2-3 days later. Repeat UA at that time was strongly suggestive of UTI. She was empirically treated and cultures eventually grew e.coli and enterococcus. ID was consulted due to patient's' allergy profile and antibiotic resistance. Recommended treatment with Macrobid. Early in her hospitalization, she was noted to have brief runs of atrial fibrillation. This was controlled well with her home metoprolol dose. Patient's lasix was changed to spironolactone by pulmonology. Her potassium was low on admission and remained low despite recurrent supplementation, so she was changed to spironolactone. Patient continued with good UOP. Patient was noted to be debilitated and was only able to walk short distances with 2 canes. She had gradual improvement as she worked with PT. She was awaiting SNF approval by insurance but unfortunately insurance denied SNF despite her debility, high risk for bounce back, new pulmonary emboli due to immobility /volume overload. Patient was discharged home. Vital Signs/Physical Exam: Temp Pulse Resp BP Pulse Ox 97.4 F 64 20 140/64 98 02/13/21 12:00 02/13/21 12:00 02/13/21 12:00 02/13/21 12:00 02/13/21 12:00 General: Alert, In no apparent distress, Oriented x3 HEENT: Sclerae nonicteric Neck: No LAD Respiratory: Clear to auscultation bilaterally, Diminished (at bases bilaterally) Cardiovascular: Regular rate/rhythm, Edema (chronic lymphedema bilateral lower extremities) Gastrointestinal: Soft and benign, Non-distended, No tenderness Musculoskeletal: No erythema, No tenderness Integumentary: No rashes, No significant lesion Neurological: Normal speech, Normal affect Urinary: Suprapubic catheter Laboratory Data at Discharge: WBC 17.10 K/uL (4.3-10.9) H 02/13/21 05:13 Hgb 14.8 g/dL (12.0-15.0) 02/13/21 05:13 Hct 45.0 % (36.0-45.0) 02/13/21 05:13 Plt Count 285 K/uL (152-406) 02/13/21 05:13 PT 12.0 SECONDS (9.5-12.5) 01/31/21 17:00 INR 1.04 01/31/21 17:00 Sodium 138 mmol/L (136-145) 02/13/21 05:13 Potassium 4.2 mmol/L (3.5-5.1) 02/13/21 05:13 BUN 27 mg/dL (7-18) H 02/13/21 05:13 Creatinine 1.13 mg/dL (0.55-1.3) 02/13/21 05:13 Glucose 162 mg/dL (74-106) H 02/13/21 05:13 Phosphorus 2.9 mg/dL (2.5-4.9) 02/07/21 13:13 Magnesium 2.4 mg/dL (1.8-2.4) 02/13/21 05:13 Total Bilirubin 0.3 mg/dL (0.2-1.0) 02/03/21 05:59 AST 13 U/L (15-37) L 02/03/21 05:59 ALT 11 U/L (12-78) L 02/03/21 05:59 Alkaline Phosphatase 66 U/L (45-117) 02/03/21 05:59 Triglycerides 71 mg/dL (<150) 02/01/21 06:25 Cholesterol 167 mg/dL (<200) 02/01/21 06:25 HDL Cholesterol 52 mg/dL (40-60) 02/01/21 06:25 Cholesterol/HDL Ratio 3.21 02/01/21 06:25 Home Medications: Lovastatin 1 tab PO BEDTIME 12/15/17 Metoprolol Tartrate [Lopressor*] 1 tab PO BID 09/16/19 Cranberry Fruit Extract/Vit C [Azo Cranberry Softgel] 1 each PO DAILY 01/14/21 Diphenhydramine [Benadryl*] 25 mg PO BEDTIME 01/14/21 Gabapentin 300 mg PO BEDTIME 01/14/21 Folic Acid 1 mg PO DAILY #90 tablet 01/21/21 Hydrocodone 7.5/APAP 325 [[place] 7.5/325 mg*] 1 tab PO BID PRN #10 tab 01/21/21 Benzonatate [Tessalon Perle*] 100 mg PO TIDP PRN #30 cap 02/07/21 Lactobacillus Acidophilus [Acidophilus Lactobacilli] 1 each PO TID 90 Days #30 capsule 02/07/21 Medihoney [Medihoney Woundcare Gel*] 1 appl TOP DAILY #1 tube 02/07/21 Mometasone/Formoterol [Dulera 200 Mcg/5 Mcg Inhaler] 2 puff IH BID #1 inhaler 02/07/21 Nystatin Powder [Mycostatin (Powder)*] 1 appl TOP DAILY #1 btl 02/07/21 Rivaroxaban [Xarelto] 1 each PO BID #51 tab.ds.pk 02/07/21 Spironolactone [Aldactone*] 25 mg PO BID #60 tab 02/07/21 predniSONE [Deltasone*] 10 mg PO BIDWM #6 tab 02/07/21 Nitrofuran Macro [Macrobid*] 100 mg PO BID 3 Days #6 cap 02/13/21 New Medications: Lactobacillus Acidophilus [Acidophilus Lactobacilli] 1 each PO TID 90 Days #30 capsule Spironolactone [Aldactone*] 25 mg PO BID #60 tab predniSONE [Deltasone*] 10 mg PO BIDWM #6 tab Mometasone/Formoterol [Dulera 200 Mcg/5 Mcg Inhaler] 2 puff IH BID #1 inhaler Nitrofuran Macro [Macrobid*] 100 mg PO BID 3 Days #6 cap Medihoney [Medihoney Woundcare Gel*] 1 appl TOP DAILY #1 tube Nystatin Powder [Mycostatin (Powder)*] 1 appl TOP DAILY #1 btl Benzonatate [Tessalon Perle*] 100 mg PO TIDP PRN #30 cap PRN Reason: Cough Rivaroxaban [Xarelto] 1 each PO BID #51 tab.ds.pk Diet: AHA Activity: Fall precautions Followup: Delfino Jacobsen MD [ACTIVE - CAN ADMIT] - Mamadou Peña MD [ACTIVE - CAN ADMIT] - Unknown,U [Primary Care Provider] - Time spent managing pt's care (in minutes): 45
== END 2021-02-13 15:16 | disposition home health service (06) | DRG 190 ==
LOC: ER 15:23 → ERHOLD 19:32 → 2ND 20:12
PROVIDERS: ADMIT Hospitalist; ATTEND Hospitalist
PROC: 5A09557 Assistance with Respiratory Ventilation, Greater than 96 Consecutive Hours, Continuous Positive Airway Pressure (ICD-10-PCS; principal; 2021-01-31)
DX: J44.1 Chronic obstructive pulmonary disease with (acute) exacerbation (principal); I26.99 Other pulmonary embolism without acute cor pulmonale; J96.01 Acute respiratory failure with hypoxia; I50.33 Acute on chronic diastolic (congestive) heart failure; T83.518A Infection and inflammatory reaction due to other urinary catheter, initial encounter; N39.0 Urinary tract infection, site not specified; Z68.44 Body mass index [BMI] 60.0-69.9, adult; Z16.23 Resistance to quinolones and fluoroquinolones; I11.0 Hypertensive heart disease with heart failure; E66.01 Morbid (severe) obesity due to excess calories; E78.5 Hyperlipidemia, unspecified; I48.0 Paroxysmal atrial fibrillation; E87.6 Hypokalemia; M25.559 Pain in unspecified hip; M79.7 Fibromyalgia; I89.0 Lymphedema, not elsewhere classified; I95.9 Hypotension, unspecified; G89.29 Other chronic pain; R60.9 Edema, unspecified; Z88.5 Allergy status to narcotic agent; Z79.899 Other long term (current) drug therapy; Z20.822 Contact with and (suspected) exposure to COVID-19; Z88.1 Allergy status to other antibiotic agents; Z91.018 Allergy to other foods; Z87.891 Personal history of nicotine dependence; Z79.52 Long term (current) use of systemic steroids; B96.20 Unspecified Escherichia coli [E. coli] as the cause of diseases classified elsewhere; B95.2 Enterococcus as the cause of diseases classified elsewhere
CPT/HCPCS: 36415; 71045; 78582; 80048; 80053; 80061; 80076; 81001; 81003; 81015; 82805; 83735; 83880; 84100; 84132; 84145; 84439; 84443; 84484; 85025; 85027; 85379; 85610; 87040; 87077; 87086; 87088; 87186; 93005; 93306; 94640; 94660; 94760; 96374; 97110; 97112; 97116; 97161; 97530; 99285; A9540; A9558; J0692; J1650; J1940; J1953; J2920; J2930; J3480; J7030; J7040; J7512; J7606; U0003

== ENCOUNTER 2021-02-21 04:54 | Inpatient (IN) | payer OTHER ==
--- OUTSIDE RECORDS SUMMARY | 2021-02-21 04:57 | XMS REPORT | Continuity of Care Document ---
:1955 Author Organization [facility] t Address [address] [place] [address] Care Team Providers Name Role Phone Unavailable Unavailable Unavailable Problems This patient has no known problems. Allergies, Adverse Reactions, Alerts Allergy Allergy Status Severity Reaction(s) Onset Inactive Treating Comm ents Source Name Type Date Date Clinician sulfa Adverse Active Info Not [facility] Reaction Available [facility] Rocephin Adverse Active Info [facility] Reaction Available [facility] Macrobid Adverse Active Info Not [facility] Reaction Available [facility] Lincocin Adverse Active Info [facility] Reaction Available [facility] Fentanyl Adverse Active Info [facility] Reaction Available [facility] Betadine Adverse Active Info [facility] Reaction Available [facility] Augmenti Adverse Active Info Not [facility] n Reaction Available [facility] Aloe Adverse Active Info Not [facility] Vera Reaction Available [facility] Vancomyc Adverse Active Info Not [facility] in HCl Reaction Available [facility] Medications Ordered Filled Start Stop Current Ordering Indication Dosage Frequency Signature Comments Components Source Medication Medication Date Date Medication? Clinician (SIG) Name Name Metoprolol Metoprolol Yes Na Gutierrez [address] [facility] Tartrate Tartrate 8-26 with food Sanna kes - 00:00: [facility] 00 [facility] Doxycycline Doxycycline 2017-03 Yes Na Gutierrez 1 [...] Department ID 2021-01-01 2021-01-01 Outpatient [facility] [id number] [facility] 2020-12-19 2020-12-19 [facility] [id number] [facility] 2020-10-26 2020-10-26 Out[facility] [id number] [facility] 2020-10-26 2020-10-26 [facility] [id number] [facility] 2020-10-19 2020-10-19 Out[facility] [id number] [facility] 2020-10-11 2020-10-11 Out[facility] [id number] [facility] 2020-09-27 2020-09-27 Out[facility] [id number] [facility] 2020-09-27 2020-09-27 Out[facility] [id number] [facility] 2020-09-22 2020-09-22 Outpatient [facility] [id number] [facility] 2020-08-15 2020-08-15 Out[facility] [id number] [facility] 2020-07-21 2020-07-21 Outpatient [facility] [id number] [facility] 2020-07-03 2020-07-03 Out[facility] [id number] [facility] 2020-06-30 2020-06-30 Out[facility] [id number] [facility] 2020-06-30 2020-06-30 Out[facility] [id number] [facility] 2020-06-27 2020-06-27 Outpatient [facility] [id number] [facility] 2020-06-07 2020-06-07 Out[facility] [id number] [facility] 2020-05-29 2020-05-29 Outpatient [facility] [id number] [facility] 2020-05-23 2020-05-23 Out[facility] [id number] [facility] 2020-05-11 2020-05-11 Out[facility] [id number] [facility] 2020-05-07 2020-05-07 Outpatient [facility] [id number] [facility] 2020-05-04 2020-05-04 Outpatient [facility] [id number] [facility] 2020-04-19 2020-04-19 Out[facility] [id number] [facility] 2020-04-04 2020-04-04 Out[facility] [id number] [facility] 2020-02-04 2020-02-04 Outpatient [facility] [id number] [facility] 2020-02-01 2020-02-01 Outpatient [facility] [id number] [facility] 2020-01-05 2020-01-05 Outpatient [facility] [id number] [facility] 2019-12-20 2019-12-20 Outpatient [facility] [id number] [facility] 2019-12-19 2019-12-19 Outpatient [facility] [id number] [facility] 2019-12-17 2019-12-17 Outpatient [facility] [id number] [facility] 2019-11-03 2019-11-03 [facility] [id number] [facility] 10:19:00 10:19:00 [place] [facility] - [facility] l Medicine Outpati ent Clinics 2019-10-06 2019-10-06 [facility] [id number] [facility] 16:47:00 16:47:00 [place] - Drive [facility] Family [facility] l Medicine Outpati ent Clinics 2019-09-30 2019-09-30 [facility] [id number] [facility] 14:56:00 14:56:[address] [place] [address] [place] [address] [employer] s - Drive [facility] 2019-09-14 2019-09-14 [facility] [id number] [facility] 13:55:00 13:55:00 [place] [employer] - Drive [facility] Medicine l Medicine Outpati ent Clinics 2019-08-12 2019-08-12 [facility] [id number] [facility] 11:39:00 11:39:00 [place] - Drive [facility] Medicine l Medicine Outpati ent Clinics 2019-07-09 2019-07-09 [facility] [id number] [facility] 11:26:00 11:26:00 [place] - Drive [facility] Medicine l Medicine Outpati ent Clinics 2019-07-06 2019-07-06 [facility] [id number] [facility] 14:00:00 14:00:00 [place] [employer] - Drive [facility] Medicine l Medicine Outpati ent Clinics 2019-06-11 2019-06-11 [facility] [id number] [facility] 10:29:00 10:29:00 [place] - Drive [facility] Medicine l Medicine Outpati ent Clinics 2019-06-08 2019-06-08 [facility] [id number] [facility] 10:57:00 10:57:00 [place] [employer] - Drive [facility] Medicine l Medicine Outpati ent Clinics 2019-05-24 2019-05-24 [facility] [id number] [facility] 14:44:00 14:44:00 [place] - Drive [facility] Medicine l Medicine Outpati ent Clinics 2019-04-12 2019-04-12 [facility] [id number] [facility] 10:58:00 10:58:00 [place] - Drive [facility] Medicine l Medicine Outpati ent Clinics 2019-04-08 2019-04-08 [facility] [id number] [facility] 17:13:00 17:13:00 [place] [employer] - Drive [facility] Medicine l Medicine Outpati ent Clinics 2019-03-26 2019-03-26 [facility] [id number] [facility] 07:58:00 07:58:00 [place] [address] [place] [address] [place] [facility] - Drive [facility] Medicine Medicine Outpati ent Clinics 2019-02-01 2019-02-01 [facility] [id number] [facility] 10:49:00 10:49:00 [place] [employer] [place] s - Drive [facility] l Medicine Outpati ent Clinics 2019-01-21 2019-01-21 [facility] [id number] [facility] 12:09:00 12:09:00 [place] s - Drive [facility] Medicine Outpati ent Clinics 2018-12-31 2018-12-31 [facility] [id number] [facility] 13:40:00 13:40:00 [place] s - Drive [facility] Medicine Outpati ent Clinics 2018-12-24 2018-12-24 [facility] [id number] [facility] 16:51:00 16:51:00 [place] - Drive [facility] Medicine Outpati ent Clinics 2018-12-22 2018-12-22 [facility] [id number] [facility] 10:09:00 10:09:00 [place] [employer] s - Drive [facility] Medicine Outpati ent Clinics 2018-12-16 2018-12-16 [facility] [id number] [facility] 13:32:00 13:32:00 [place] [employer] - Drive [facility] Medicine Outpati ent Clinics 2018-12-09 2018-12-09 [facility] [id number] [facility] 15:07:00 15:07:00 [place] [employer] s - Drive [facility] Medicine Medicine Outpati ent Clinics 2018-12-08 2018-12-08 [facility] [id number] [facility] 09:21:00 09:21:00 [place] [facility] - Drive [facility] Medicine Outpati ent Clinics 2018-12-07 2018-12-07 [facility] [id number] [facility] 15:10:00 15:10:00 [place] [facility] - Drive [facility] Medicine Outpati ent Clinics 2018-10-29 2018-10-29 [facility] [id number] [facility] 11:00:00 11:00:00 [place] [employer] [facility] - Drive [facility] Medicine Outpati ent Clinics 2018-10-20 2018-10-20 [facility] [id number] [facility] 13:23:00 13:23:00 [place] [employer] [facility] - Drive [facility] Medicine Outpati ent Clinics 2018-10-05 2018-10-05 [facility] [id number] [facility] 16:27:00 16:27:00 [place] - Drive [facility] Medicine Outpati ent Clinics 2018-09-25 2018-09-25 [facility] [id number] [facility] 16:15:00 16:15:00 [place] - Drive [facility] Medicine Outpati ent Clinics 2018-09-23 2018-09-23 [facility] [id number] [facility] 15:54:00 15:54:00 [place] - Drive [facility] Medicine Outpati ent Clinics 2018-08-27 2018-08-27 [facility] [id number] [facility] 16:00:00 16:00:00 [place] - Drive [facility] Medicine Outpati ent Clinics 2018-08-25 2018-08-25 [facility] [id number] [facility] 15:20:00 15:20:00 [place] [employer] - Drive [facility] Medicine Outpati ent Clinics Results This patient has no known results.
[2021-02-21] MEDS ORDERED: MORPHINE 2 MG/ML SYR ONE ×2 (05:20→06:18)
[2021-02-21] MEDS ORDERED: NA CHLORIDE 0.9% 1,000 ML ONE ×2 (05:21→07:28)
[2021-02-21] MEDS ORDERED: NA CHLORIDE 0.9% 50 ML ONE (05:21)
[2021-02-21] MEDS ORDERED: ONDANSETRON 4 MG/2 ML VIAL ONE (05:21)
[2021-02-21] MEDS ORDERED: CEFTRIAXONE 1000 MG/VIAL ONE (05:21)
[2021-02-21 05:32] LABS: Urine Blood 3+ (Negative); Urine Glucose Negative (Negative); Urine Protein 3+ (Negative); Urine Specific Gravity 1.015 (1.005-1.030); Urine pH 8.5 (5.0-7.0)
[2021-02-21 05:57] LABS: Absolute Lymphocytes (CBC) 1.5 K/uL (0.7-4.9); Basophils % 0.2 % (0-1.3); Hematocrit 43.1 % (36.0-45.0); Lymphocytes % 9.8 % (15.3-44.8); MPV 8.6 fL (7.6-11.3); RBC Red Blood Cell Count 4.85 M/uL (3.86-4.86)
[2021-02-21 06:15] LABS: Bilirubin Direct 0.2 mg/dL (0-0.2); Bilirubin Total 0.6 mg/dL (0.2-1.0); Potassium 4.2 mmol/L (3.5-5.1); Protein, Total 7.8 g/dL (6.4-8.2)
--- NOTE | 2021-02-21 06:37 | ER ---
Nurse's Notes [facility] Name: Jv Bryant Age: 66 yrs Sex: Female : 1955 Arrival Date: 02/21/2021 Time: 04:59 Bed 6 Private MD: Diagnosis: Dysuria;UTI/ Urinary tract infection, site not specified-Suprapubic Pedroza;Elevated white blood cell count;Acute kidney failure, unspecified-on chronic;Obesity, unspecified Presentation: 02/21 05:25 Chief complaint: Patient states: she is having blood in urine and bladder spasms, pt as6 arrives with suprapubic catheter. Coronavirus screen: Vaccine status: Patient reports being unvaccinated. At this time, the client does not indicate any symptoms associated with coronavirus-19. Ebola Screen: No symptoms or risks identified at this time. Initial Sepsis Screen: Does the patient meet any 2 criteria? No. Patient's initial sepsis screen is negative. Does the patient have a suspected source of infection? No. Patient's initial sepsis screen is negative. Risk Assessment: Do you want to hurt yourself or someone else? Patient reports no desire to harm self or others. Onset of symptoms was February 20, 2021. 05:25 Method Of Arrival: EMS: [facility] as 05:25 Acuity: SKYLER 3 as6 Historical: - Allergies: 05:30 Macrolide Antibiotics; 05:30 Sulfa (Sulfonamide Antibiotics); 05:30 Iodine; 05:30 aloe vera; 05:31 Fentanyl; as6 - Home Meds: 05:30 furosemide 40 mg Oral tab 1 tab 2 times per day [Active]; gabapentin 100 mg Oral cap 3 as6 caps nightly for Neuropathic Pain [Active]; lovastatin 20 mg Oral tab once daily [Active]; metoprolol tartrate 25 mg Oral tab 1 tab 2 times per day [Active]; - PMHx: 05:30 ADD/ADHD; Arthritis; Chronic pain; COPD; Fibromyalgia; frequent UTI'S; heart disease- as6 unspecified; Hyperlipidemia; Hypertension; insomnia; lymphedema; PERIPHERAL NEUROPATHY; unspecified kidney failure; - Immunization history:: Adult Immunizations not up to date, Last tetanus immunization: < 5 years ago. - Social history:: Smoking status: Patient/guardian denies using tobacco, the patient reports quitting approximately 5 years ago. - Family history:: not pertinent. Screenin:57 Abuse screen: Denies threats or abuse. Nutritional screening: No deficits noted. as6 Tuberculosis screening: No symptoms or risk factors identified. Fall Risk Fall in past 12 months (25 points). Secondary diagnosis (15 points) impaired mobility, IV access (20 points). Ambulatory Aid- None/Bed Rest/Nurse Assist (0 pts). Gait- Normal/Bed Rest/Wheelchair (0 pts) Mental Status- Oriented to own ability (0 pts). Total Garcia Fall Scale indicates High Risk Score (45 or more points). Side Rails Up X 2 Frequent Obs/Assessments Occuring Family Present and informed to notify staff if the need to leave the bedside As available patient and family educated on Fall Prevention Program and Strategies. Assessment: 05:51 General: Appears uncomfortable, Behavior is cooperative, restless. Pain: Complains of as6 pain in suprapubic area Quality of pain is described as shooting. Neuro: Level of Consciousness is awake, alert, obeys commands, Oriented to person, place, time, situation. Cardiovascular: Capillary refill < 3 seconds Patient's skin is warm and dry. Edema is 4+ to BLE. Respiratory: Airway is patent Trachea midline Respiratory effort is even, unlabored, Respiratory pattern is regular, symmetrical. GI: Reports lower abdominal pain. : suprapubic catheter in place Urine is blood tinged, Reports cramping. Derm: drsg to BLE. 06:12 Reassessment: Patient and/or family updated on plan of care and expected duration. Pain as6 level reassessed. Patient is alert, oriented x 3, equal unlabored respirations, skin warm/dry/pink. son at bedside. General: Appears in no apparent distress. 07:51 General: Appears uncomfortable, obese. Pain: Complains of pain in back, right leg and díaz left leg. Neuro: No deficits noted. Cardiovascular: No deficits noted. Respiratory: No deficits noted. GI: No deficits noted. : Reports cramping, bladder pain. Musculoskeletal: Reports weakness in right leg and left leg pain in back, right leg and left leg Pain is 9 out of 10 on a pain scale. Vital Signs: 05:25 BP 114 / 92; Pulse 79; Resp 20 S; Temp 97.9(O); Pulse Ox 99% on R/A; Weight 120.2 kg as6 (R); Height 5 ft. 1 in. (154.94 cm) (R); Pain 9/10; 06:13 BP 121 / 74; Pulse 84; Resp 18 S; Pulse Ox 100% on R/A; as6 07:49 BP 105 / 76; Pulse 92; Resp 18; Pulse Ox 99% ; díaz 09:05 BP 117 / 61; Pulse 75; Resp 18; Pulse Ox 96% ; díaz 14:28 BP 107 / 90; Pulse 74; Resp 18; Pulse Ox 96% ; díaz 05:25 Body Mass Index 50.07 (120.20 kg, 154.94 cm) as6 ED Course: 04:59 Patient arrived in ED. mw2 05:00 Pascual Wray MD is Attending Physician. vinicius 05:15 Jim Gonzalez, ALO is Primary Nurse. as6 05:30 Triage completed. as6 05:33 Arm band placed on. as6 05:46 Inserted saline lock: 22 gauge in right forearm, using aseptic technique. Inserted as6 saline lock: 24 gauge in left forearm, using aseptic technique. Blood collected. 05:48 Urine Microscopic Only Sent. ds4 05:48 Urine Culture Sent. ds4 05:58 Bed in low position. Call light in reach. Side rails up X2. Adult w/ patient. Pulse ox as6 on. NIBP on. 06:33 Helena Lamb MD is Hospitalizing Provider. vinicius 07:50 COVID-19 SARS RT PCR (Document "Date of Onset" if Symptomatic) Sent. díaz 07:53 No provider procedures requiring assistance completed. díaz 08:11 CT Abd/Pelvis - Without Contrast In Process Unspecified. EDMS 14:29 Patient admitted, IV remains in place. díaz Administered Medications: 05:36 Drug: NS 0.9% 1000 ml Route: IV; Rate: 1 bolus; Site: right forearm; as6 07:12 Follow up: Response: No adverse reaction; IV Status: Completed infusion; IV Intake: as6 1000ml 05:40 Drug: Zofran (Ondansetron) 4 mg Route: IVP; Site: right forearm; as6 06:24 Follow up: Response: No adverse reaction as6 05:41 Drug: morphine 2 mg Route: IVP; Site: right forearm; as6 05:42 Drug: Rocephin (cefTRIAXone) 1 grams Route: IV; Rate: per protocol; Site: right forearm;as6 06:24 Follow up: Response: No adverse reaction; IV Status: Completed infusion; IV Intake: 13mffn5 06:24 Drug: morphine 2 mg Route: IVP; Site: right forearm; as6 06:24 Follow up: Response: No adverse reaction; RASS: Alert and Calm (0) as6 07:50 Drug: NS 0.9% 1000 ml Route: IV; Rate: 125 ml/hr; Site: left forearm; díaz 14:29 Follow up: IV Status: Infusion continued upon admission díaz Intake: 06:24 IV: 50ml; Total: 50ml. 07:12 IV: 1000ml; Total: 1050ml. Outcome: 06:36 Decision to Hospitalize by Provider. vinicius 14:27 Admitted to Med/surg accompanied by nurse, via stretcher, with chart, Report called to arjun Estrada 14:27 Condition: good 14:27 Instructed on the need for admit. 14:30 Patient left the ED. arjun Signatures: Dispatcher [employer] EDMS Pascual Wray MD MD cha Swanson, Donovan ds4 Bobby Harden2 Jim Gonzalez RN RN as6 Zenaida-StagerCarole
--- NOTE | 2021-02-21 06:37 | EDPHYS ---
Physician Documentation [facility] Name: Jv Bryant Age: 66 yrs Sex: Female : 1955 Arrival Date: 02/21/2021 Time: 04:59 Bed 6 Private MD: ED Physician Pascual Wray HPI: 02/21 06:27 This 66 yrs old Female presents to ER via EMS with complaints of abdomen pain vinicius and bladder spasms. 06:27 The patient presents with abdominal distention in the upper abdomen, in the lower vinicius abdomen. Onset: The symptoms/episode began/occurred 2 day(s) ago. The patient presents with urinary symptoms, dysuria, hematuria. Onset: The symptoms/episode began/occurred 2 day(s) ago. Modifying factors: The symptoms are alleviated by nothing, the symptoms are aggravated by nothing. Associated signs and symptoms: The patient has no apparent associated signs or symptoms. Severity of symptoms: At their worst the symptoms were mild, in the emergency department the symptoms are unchanged. The patient is not sexually active. Historical: - Allergies: 05:30 Macrolide Antibiotics; as6 05:30 Sulfa (Sulfonamide Antibiotics); as6 05:30 Iodine; as6 05:30 aloe vera; as6 05:31 Fentanyl; as6 - Home Meds: 05:30 furosemide 40 mg Oral tab 1 tab 2 times per day [Active]; gabapentin 100 mg Oral cap 3 as6 caps nightly for Neuropathic Pain [Active]; lovastatin 20 mg Oral tab once daily [Active]; metoprolol tartrate 25 mg Oral tab 1 tab 2 times per day [Active]; - PMHx: 05:30 ADD/ADHD; Arthritis; Chronic pain; COPD; Fibromyalgia; frequent UTI'S; heart disease- as6 unspecified; Hyperlipidemia; Hypertension; insomnia; lymphedema; PERIPHERAL NEUROPATHY; unspecified kidney failure; - Immunization history:: Adult Immunizations not up to date, Last tetanus immunization: < 5 years ago. - Social history:: Smoking status: Patient/guardian denies using tobacco, the patient reports quitting approximately 5 years ago. - Family history:: not pertinent. ROS: 06:27 Constitutional: Negative for fever, chills, and weight loss, Eyes: Negative for injury, vinicius pain, redness, and discharge, ENT: Negative for injury, pain, and discharge, Neck: Negative for injury, pain, and swelling, Cardiovascular: Negative for chest pain, palpitations, and edema, Respiratory: Negative for shortness of breath, cough, wheezing, and pleuritic chest pain, Back: Negative for injury and pain, MS/Extremity: Negative for injury and deformity, Skin: Negative for injury, rash, and discoloration, Neuro: Negative for headache, weakness, numbness, tingling, and seizure, Psych: Negative for depression, anxiety, suicide ideation, homicidal ideation, and hallucinations, Allergy/Immunology: Negative for hives, rash, and allergies, Endocrine: Negative for neck swelling, polydipsia, polyuria, polyphagia, and marked weight changes, Hematologic/Lymphatic: Negative for swollen nodes, abnormal bleeding, and unusual bruising. 06:27 Respiratory: Negative for cough. 06:27 Abdomen/GI: Positive for abdominal pain, abdominal cramps, abdominal distension, of the right lower quadrant and left lower quadrant. Exam: 06:27 Constitutional: This is a well developed, well nourished patient who is awake, alert, vinicius and in no acute distress. Head/Face: Normocephalic, atraumatic. Eyes: Pupils equal round and reactive to light, extra-ocular motions intact. Lids and lashes normal. Conjunctiva and sclera are non-icteric and not injected. Cornea within normal limits. Periorbital areas with no swelling, redness, or edema. ENT: Nares patent. No nasal discharge, no septal abnormalities noted. Tympanic membranes are normal and external auditory canals are clear. Oropharynx with no redness, swelling, or masses, exudates, or evidence of obstruction, uvula midline. Mucous membranes moist. Neck: Trachea midline, no thyromegaly or masses palpated, and no cervical lymphadenopathy. Supple, full range of motion without nuchal rigidity, or vertebral point tenderness. No Meningismus. Chest/axilla: Normal chest wall appearance and motion. Nontender with no deformity. No lesions are appreciated. Cardiovascular: Regular rate and rhythm with a normal S1 and S2. No gallops, murmurs, or rubs. Normal PMI, no JVD. No pulse deficits. Respiratory: Lungs have equal breath sounds bilaterally, clear to auscultation and percussion. No rales, rhonchi or wheezes noted. No increased work of breathing, no retractions or nasal flaring. Back: No spinal tenderness. No costovertebral tenderness. Full range of motion. Skin: Warm, dry with normal turgor. Normal color with no rashes, no lesions, and no evidence of cellulitis. MS/ Extremity: Pulses equal, no cyanosis. Neurovascular intact. Full, normal range of motion. Neuro: Awake and alert, GCS 15, oriented to person, place, time, and situation. Cranial nerves II-XII grossly intact. Motor strength 5/5 in all extremities. Sensory grossly intact. Cerebellar exam normal. Normal gait. Psych: Awake, alert, with orientation to person, place and time. Behavior, mood, and affect are within normal limits. 06:27 Abdomen/GI: Inspection: abdomen appears normal, Bowel sounds: normal, Palpation: moderate abdominal tenderness, in the suprapubic area, right lower quadrant and left lower quadrant, Liver: no appreciated palpable abnormalities, Hernia: not appreciated. Vital Signs: 05:25 BP 114 / 92; Pulse 79; Resp 20 S; Temp 97.9(O); Pulse Ox 99% on R/A; Weight 120.2 kg as6 (R); Height 5 ft. 1 in. (154.94 cm) (R); Pain 9/10; 06:13 BP 121 / 74; Pulse 84; Resp 18 S; Pulse Ox 100% on R/A; as6 07:49 BP 105 / 76; Pulse 92; Resp 18; Pulse Ox 99% ; díaz 09:05 BP 117 / 61; Pulse 75; Resp 18; Pulse Ox 96% ; díaz 14:28 BP 107 / 90; Pulse 74; Resp 18; Pulse Ox 96% ; díaz 05:25 Body Mass Index 50.07 (120.20 kg, 154.94 cm) as6 MDM: 05:00 Patient medically screened. vinicius 06:27 Differential diagnosis: nonspecific abdominal pain, urinary tract infection, bowel vinicius obstruction, diverticulitis. Data reviewed: vital signs, nurses notes, lab test result(s), radiologic studies. Data interpreted: quality tech: not applicable for this patient encounter. rate is 84 beats/min, Pulse oximetry: on room air. Counseling: I had a detailed discussion with the patient and/or guardian regarding: the historical points, exam findings, and any diagnostic results supporting the discharge/admit diagnosis, lab results, radiology results, the need for further work-up and treatment in the hospital. 02/21 05:02 Order name: Basic Metabolic Panel [facility] 02/21 05:02 Order name: CBC with Diff [facility] 02/21 05:02 Order name: Hepatic Function [facility] 02/21 05:02 Order name: Lipase [facility] 02/21 05:02 Order name: Urine Culture [facility] 02/21 05:32 Order name: Urine Dipstick-Ancillary; Complete Time: 06:15 [facility] 02/21 05:34 Order name: Urine Microscopic Only ds4 02/21 05:57 Order name: CBC with Automated Diff; Complete Time: 06:15 [facility] 02/21 06:15 Order name: Basic Metabolic Panel; Complete Time: 06:15 [facility] 02/21 06:15 Order name: Liver (Hepatic) Function; Complete Time: 06:15 [facility] 02/21 06:15 Order name: Lipase; Complete Time: 06:15 [facility] 02/21 06:45 Order name: COVID-19 SARS RT PCR (Document "Date of Onset" if Symptomatic) as6 02/21 08:35 Order name: CBC with Automated Diff [facility] 02/21 08:35 Order name: CBC with Automated Diff [facility] 02/21 05:02 Order name: IV Saline Lock; Complete Time: 05:34 [facility] 02/21 05:02 Order name: Labs collected and sent; Complete Time: 05:45 [facility] 02/21 05:02 Order name: CT Abd/Pelvis - Without Contrast [facility] 02/21 08:35 Order name: CONS Physician Consult [facility] 02/21 08:35 Order name: Heart Healthy [facility] 02/21 08:35 Order name: Comprehensive Metabolic Panel [facility] 02/21 08:35 Order name: Comprehensive Metabolic Panel [facility] 02/21 08:35 Order name: Protime (+INR) [facility] 02/21 08:35 Order name: Protime (+INR) [facility] 02/21 08:35 Order name: PTT, Activated Partial Thromb [facility] 02/21 08:35 Order name: PTT, Activated Partial Thromb [facility] 02/21 05:02 Order name: Urine Dipstick-Ancillary (obtain specimen); Complete Time: 05:34 [facility] Administered Medications: 05:36 Drug: NS 0.9% 1000 ml Route: IV; Rate: 1 bolus; Site: right forearm; as6 07:12 Follow up: Response: No adverse reaction; IV Status: Completed infusion; IV Intake: as6 1000ml 05:40 Drug: Zofran (Ondansetron) 4 mg Route: IVP; Site: right forearm; as6 06:24 Follow up: Response: No adverse reaction as6 05:41 Drug: morphine 2 mg Route: IVP; Site: right forearm; as6 05:42 Drug: Rocephin (cefTRIAXone) 1 grams Route: IV; Rate: per protocol; Site: right forearm;as6 06:24 Follow up: Response: No adverse reaction; IV Status: Completed infusion; IV Intake: [id number] 06:24 Drug: morphine 2 mg Route: IVP; Site: right forearm; as6 06:24 Follow up: Response: No adverse reaction; RASS: Alert and Calm (0) as6 07:50 Drug: NS 0.9% 1000 ml Route: IV; Rate: 125 ml/hr; Site: left forearm; díaz 14:29 Follow up: IV Status: Infusion continued upon admission díaz Disposition Summary: 02/21/21 06:36 Hospitalization Ordered Hospitalization Status: Inpatient Admission vinicius Provider: Helena Lamb cha Location: Telemetry/MedSurg (Inpatient) vinicius Condition: Stable vinicius Problem: new vinicius Symptoms: have improved vinicius Bed/Room Type: Standard [facility] Room Assignment: 401(02/21/21 13:37) Diagnosis - Dysuria vinicius - UTI/ Urinary tract infection, site not specified - Suprapubic Pedroza vinicius - Elevated white blood cell count vinicius - Acute kidney failure, unspecified - on chronic vinicius - Obesity, unspecified vinicius Forms: - Medication Reconciliation Form vinicius - SBAR form vinicius Signatures: Dispatcher [employer] Nelia Rodríguez RN RN dw Anderson, Corey, MD MD cha Smirch, Shelby RN RN Jim Garvey RN RN as6 Zenaida-StagerCarole Corrections: (The following items were deleted from the chart) 12:34 06:36 vinicius dw 12:38 12:34 428 dw dw 13:37 12:38 411 dw ss
[2021-02-21] MEDS ORDERED: ONDANSETRON 4 MG/2 ML VIAL IV PRN (08:31)
[2021-02-21] MEDS ORDERED: ACETAMINOPHEN 500 MG TAB PO PRN (08:31)
--- NOTE | 2021-02-21 08:35 | P.HP ---
Certification for Inpatient Patient admitted to: Observation With expected LOS: <2 Midnights Patient will require the following post-hospital care: None Practitioner: I am a practitioner with admitting privileges, knowledge of patient current condition, hospital course, and medical plan of care. Services: Services provided to patient in accordance with Admission requirements found in Title 42 Section 412.3 of the Code of Federal Regulations Patient History Date of Service: 02/21/21 Reason for admission: UTI/hematuria History of Present Illness: Patient is a 66-year-old female who came to the hospital with hematuria. Patient was recently discharged about a week ago. She is in and out of the hospital frequently. She has wounds of the lower extremities. These are being taking care of by wound healing. She has a suprapubic catheter in place. She had hematuria and she was admitted for further evaluation. Hemoglobin is stable. Blood pressure is stable. Continue to monitor closely. Allergies amoxicillin [From Augmentin] Allergy (Severe, Verified 09/16/19 23:49) diarrhea, nausea, vomiting ceftriaxone [From Rocephin] Allergy (Severe, Verified 09/16/19 23:49) Itching/Hives/Rash fentanyl Allergy (Severe, Verified 09/16/19 23:49) Itching/Hives/Rash iodine Allergy (Severe, Verified 09/16/19 23:49) Unknown lincomycin [From Lincocin] Allergy (Severe, Verified 09/16/19 23:49) rashes,headaches pneumococcal vaccine [From Pneumovax 23] Allergy (Severe, Verified 09/16/19 23:49) sick more than a week sulfamethoxazole [From Bactrim] Allergy (Severe, Verified 09/16/19 23:49) Anaphylaxis trifluoperazine [From Stelazine] Allergy (Severe, Verified 09/16/19 23:49) itching and rashes vancomycin Allergy (Severe, Verified 09/16/19 23:49) renal failure soap [From Betadine] Allergy (Mild, Verified 09/16/19 23:49) Hives/Rash Sulfa (Sulfonamide Antibiotics) Allergy (Mild, Verified 09/16/19 23:49) Anaphylaxis aloe vera Allergy (Verified 09/16/19 23:49) Itching celery Allergy (Verified 09/16/19 23:49) Nausea/Vomiting Macrolide Antibiotics Allergy (Verified 09/16/19 23:49) Itching/Hives/Rash FLU VACCINE Allergy (Severe, Uncoded 09/16/19 23:49) sick for more than a week aloe vera Allergy (Uncoded 09/16/19 23:49) Unknown hall peppers Allergy (Uncoded 09/16/19 23:49) Nausea/Vomiting celery Allergy (Uncoded 09/16/19 23:49) Unknown FLU VAC Allergy (Uncoded 09/16/19 23:49) Unknown peppers Allergy (Uncoded 09/16/19 23:49) Unknown Home Medications: Lovastatin 1 tab PO BEDTIME 12/15/17 Metoprolol Tartrate [Lopressor*] 1 tab PO BID 09/16/19 Cranberry Fruit Extract/Vit C [Azo Cranberry Softgel] 1 each PO BID 01/14/21 Diphenhydramine [Benadryl*] 25 mg PO BEDTIME 01/14/21 Gabapentin 300 mg PO BEDTIME 01/14/21 Folic Acid 1 mg PO DAILY #90 tablet 01/21/21 Hydrocodone 7.5/APAP 325 [[place] 7.5/325 mg*] 1 tab PO BID PRN #10 tab 01/21/21 Benzonatate [Tessalon Perle*] 100 mg PO TIDP PRN #30 cap 02/07/21 Mometasone/Formoterol [Dulera 200 Mcg/5 Mcg Inhaler] 2 puff IH BID #1 inhaler 02/07/21 Nystatin Powder [Mycostatin (Powder)*] 1 appl TOP DAILY #1 btl 02/07/21 Rivaroxaban [Xarelto] 1 each PO BID #51 tab.ds.pk 02/07/21 Spironolactone [Aldactone*] 25 mg PO BID #60 tab 02/07/21 Lactobacillus Acidophilus [Acidophilus Lactobacilli] 1 cap PO BID 02/21/21 Oxybutynin Chloride 1 tab PO BID 02/21/21 - Past Medical/Surgical History Diabetic: No -: Lymphedema - bilateral leg -: Morbid obesity with Hx of Lap. Band -: Peripheral neuropathy -: Osteoarthritis -: mild COPD -: mild eczema -: Depression -: Sleep apnea -: CHF -: CRE -: hypertension -: frequent UTIs -: -: Lap band 2008 -: Tonsillectomy and adenoidectomy Psychosocial/ Personal History: , Disabled. One son. - Family History Father Medical History: Heart disease Mother Medical History: Hypertension, Stroke Notes: erin deirdre syndrome - Social History Alcohol use: No CD- Drugs: No Caffeine use: Yes Review of Systems 10-point ROS is otherwise unremarkable Physical Examination - Vital Signs Temperature: 98 F Blood Pressure: 140/80 Pulse: 80 Respirations: 18 Pulse Ox (%): 96 - Physical Exam General: Alert, In no apparent distress, Oriented x3, Obese HEENT: Atraumatic, PERRLA, Mucous membr. moist/pink, EOMI, Sclerae nonicteric Neck: Supple, 2+ carotid pulse no bruit, No LAD, Without JVD or thyroid abnormality Respiratory: Clear to auscultation bilaterally, Normal air movement Cardiovascular: Regular rate/rhythm, Normal S1 S2 Gastrointestinal: Normal bowel sounds, Soft and benign, Non-distended, No tenderness Musculoskeletal: No tenderness Integumentary: No rashes Neurological: Normal speech, Sensation intact, Cranial nerves 3-12 intact, Normal affect, Abnormal gait, Abnormal strength Lymphatics: No axilla or inguinal lymphadenopathy - Studies Laboratory Data (last 24 hrs) 02/21/21 05:46: WBC 15.60 H, Hgb 14.3, Hct 43.1, Plt Count 255 02/21/21 05:46: Sodium 132 L, Potassium 4.2, BUN 32 H, Creatinine 1.34 H, Glucose 127 H, Total Bilirubin 0.6, AST 10 L, ALT 16, Alkaline Phosphatase 86, Lipase 113 Assessment & Plan - Problems (Diagnosis) (1) Hematuria Current Visit: Yes Status: Acute (2) Anemia Current Visit: No Status: Acute Qualifiers: Anemia type: iron deficiency Iron deficiency anemia type: chronic blood loss Qualified Code(s): D50.0 - Iron deficiency anemia secondary to blood loss (chronic) (3) COPD (chronic obstructive pulmonary disease) Current Visit: No Status: Acute Qualifiers: COPD type: COPD with acute exacerbation Qualified Code(s): J44.1 - Chronic obstructive pulmonary disease with (acute) exacerbation (4) Debility Current Visit: No Status: Acute (5) Lymphedema of both lower extremities Onset Date: 12/12/16 Current Visit: No Status: Chronic (6) Obesity (BMI 30-39.9) Onset Date: 05/25/14 Current Visit: No Status: Chronic Qualifiers: Obesity type: unspecified obesity type Obesity classification: unspecified obesity classification Serious obesity comorbidity presence: with serious comorbidity Qualified Code(s): E66.9 - Obesity, unspecified (7) Decubitus ulcer of left buttock, stage 2 Current Visit: No Status: Resolved - Plan 1.Patient has a suprapubic catheter. Will continue monitoring the hematuria. It has already started clearing up. Anticipate discharge over the next 24-48 hr. 2. Strict blood pressure control 3. Strict blood sugar control 4. Wound healing 5. Out of bed and ambulate 6. GI and DVT prophylaxis Discharge Plan: Home Plan to discharge in: Greater than 2 days - Advance Directives Does patient have a Living Will: No Does patient have a Durable POA for Healthcare: No - Code Status/Comfort Care Code Status Assessed: Yes Code Status: Full Code Critical Care: No Time Spent Managing PTS Care (In Minutes): 45
[2021-02-21] MEDS: NA CHLORIDE 0.9% 1,000 ML IV SCH ×3 (09:00→22:20)
--- NOTE | 2021-02-21 12:30 | RAD REPORT ---
EXAM DESCRIPTION: CT - Abdomen Pelvis Wo Contrast - 02/21/2021 6:25 am CLINICAL HISTORY: The patient is 66 years old and is Female; ABD PAIN TECHNIQUE: Axial computed tomography images of the abdomen and pelvis without intravenous contrast. Sagittal and coronal reformatted images were created and reviewed. This CT exam was performed usi ng one or more of the following dose reduction techniques: automated exposure control, adjustment o f the mA and/or kV according to patient size, and/or use of iterative reconstruction technique. COMPARISON: CT abdomen and pelvis January 14, 2021. FINDINGS: Lung bases: Unremarkable. No mass. No consolidation. ABDOMEN: Liver: Borderline hepatic enlargement. Gallbladder and bile ducts: Tiny calcified stone in the gallbladder. No findings to suggest chol ecystitis. No ductal dilation. Pancreas: Unremarkable. No ductal dilation. Spleen: No splenomegaly. Adrenals: Right adrenal gland is unremarkable. Kidneys and ureters: Bilateral nephrolithiasis, including calculi in the right renal pelvis. No hydronephrosis. 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 No follow -up imaging recommended. Stomach and bowel: No bowel dilatation or obstruction. No bowel wall thickening. PELVIS: Appendix: The visualized appendix is normal. No pericecal inflammation to suggest acute appendic itis. Bladder: Bladder calculi, the largest measuring 3.8 cm. Suprapubic bladder catheter. Reproductive: Unremarkable as visualized. ABDOMEN and PELVIS: Intraperitoneal space: Unremarkable. No free air. No significant fluid collection. Bones/joints: Multilevel degenerative changes in the spine with scoliosis. Degenerative changes in the SI joints. No acute fracture. No dislocation. Soft tissues: Unremarkable. Vasculature: Unremarkable. No abdominal aortic aneurysm. Lymph nodes: No pathologically enlarged lymph nodes. Tubes, lines and devices: Gastric lap band device visualized with ventral abdominal wall access port. IMPRESSION: 1. Bilateral nephrolithiasis, including calculi in the right renal pelvis. No hydronep hrosis. 2. Bladder calculi, the largest measuring 3.8 cm. 3. Suprapubic bladder catheter. 4. Additional non-emergent findings as above. Electronically signed by: Billie Kirk MD 02/21/2021 5:45 AM GARAGE MANAGER Due to temporary technical issues with the PACS/Fluency reporting system, reports are being signed by the in house radiologist without review as a courtesy to ensure prompt reporting. The interpreting r adiologist is fully responsible for the content of the report.
[2021-02-21 14:30] VITALS: BMI 46.9
[2021-02-21] MEDS: MORPHINE 2 MG/ML SYR IV PRN (20:56)
[2021-02-21] MEDS ORDERED: HYDROCODONE/APAP 7.5/325 MG TAB PO PRN (21:09)
[2021-02-21] MEDS: DIPHENHYDRAMINE 25 MG TAB/CAP PO SCH (21:10)
[2021-02-21] MEDS: OXYBUTYNIN CHLORIDE 5 MG TAB PO SCH (21:36)
[2021-02-21] MEDS: GABAPENTIN 300 MG CAP PO SCH (21:36)
[2021-02-22] MEDS: MORPHINE 2 MG/ML SYR IV PRN (00:46)
[2021-02-22 04:17] LABS: Absolute Lymphocytes (CBC) 1.1 K/uL (0.7-4.9); Basophils % 0.6 % (0-1.3); Hematocrit 34.1 % (36.0-45.0); Lymphocytes % 12.2 % (15.3-44.8); MPV 8.7 fL (7.6-11.3); Protime INR 1.17; RBC Red Blood Cell Count 3.75 M/uL (3.86-4.86)
[2021-02-22 04:37] LABS: Albumin 2.2 g/dL (3.4-5.0); Bilirubin Total 0.6 mg/dL (0.2-1.0); Potassium 4.1 mmol/L (3.5-5.1); Protein, Total 5.8 g/dL (6.4-8.2)
[2021-02-22] MEDS: OXYBUTYNIN CHLORIDE 5 MG TAB PO SCH ×2 (09:00→20:20)
[2021-02-22] MEDS: METOPROLOL TAR 25 MG TAB PO SCH ×2 (09:00→20:21)
[2021-02-22] MEDS: NA CHLORIDE 0.9% 1,000 ML IV SCH (09:44)
--- NOTE | 2021-02-22 12:15 | P.PN ---
Subjective Date of Service: 02/22/21 Chief Complaint: UTI/hematuria Subjective: No new changes (Urine clear now via Pedroza) Physical Examination - Vital Signs Temperature: 97.5 F Blood Pressure: 98/59 Pulse: 56 Respirations: 16 Pulse Ox (%): 98 - Physical Exam General: Alert, In no apparent distress, Oriented x3, Obese HEENT: Atraumatic, Normocephalic Neck: 2+ carotid pulse no bruit, JVD not distended, No Thyromegaly Respiratory: Clear to auscultation bilaterally, Diminished Gastrointestinal: Normal bowel sounds, Soft and benign, Non-distended Musculoskeletal: No clubbing (Bilateral EARL hose in situ), Swelling Neurological: Normal gait, Normal speech, Normal strength at 5/5 x4 extr Urinary: Suprapubic catheter Assessment And Plan - Current Problems (Diagnosis) (1) Hematuria Current Visit: Yes Status: Acute (2) UTI (urinary tract infection) Onset Date: 11/05/17 Current Visit: No Status: Acute Qualifiers: Urinary tract infection type: acute cystitis Hematuria presence: without hematuria Qualified Code(s): N30.00 - Acute cystitis without hematuria (3) Chronic venous hypertension w/ulcer and inflammation involv right side Current Visit: No Status: Chronic (4) Cellulitis of lower extremity Onset Date: 08/02/15 Current Visit: No Status: Resolved - Plan Hematuriadue to bilateral renal and calculi as well as bladder calculus Urine clear none Continue suprapubic Pedroza Follow for possible intervention although less likely UTIindwelling catheter may be causing UTI but given leukocytosis Started on antibiotics Improving WBC to 9K now Start Levaquin daily Follow culture Chronic lower extremity lymphedemacontinue compression stockings and daily dressing Borderline hypotensionblood pressure remained stable DVT prophylaxissubcutaneous Lovenox Disposition possible DC in a.m.
[2021-02-22] MEDS ORDERED: levoFLOXacin 500 MG TAB PO SCH (13:00)
[2021-02-22] MEDS: HYDROCODONE/APAP 7.5/325 MG TAB PO PRN (16:27)
[2021-02-22] MEDS: GABAPENTIN 300 MG CAP PO SCH (20:20)
[2021-02-22] MEDS: DIPHENHYDRAMINE 25 MG TAB/CAP PO SCH (20:21)
[2021-02-22] MEDS ORDERED: ATORVASTATIN 10 MG TAB PO SCH (21:00)
[2021-02-23] MEDS: NA CHLORIDE 0.9% 1,000 ML IV SCH ×3 (01:00→14:20)
[2021-02-23] MEDS: HYDROCODONE/APAP 7.5/325 MG TAB PO PRN ×3 (03:20→14:24)
[2021-02-23 05:17] LABS: Absolute Lymphocytes (CBC) 1.1 K/uL (0.7-4.9); Basophils % 0.5 % (0-1.3); Hematocrit 33.7 % (36.0-45.0); Lymphocytes % 12.9 % (15.3-44.8); MPV 8.5 fL (7.6-11.3); RBC Red Blood Cell Count 3.79 M/uL (3.86-4.86)
[2021-02-23 05:41] LABS: Albumin 1.9 g/dL (3.4-5.0); Bilirubin Total 0.5 mg/dL (0.2-1.0); Potassium 3.7 mmol/L (3.5-5.1); Protein, Total 5.5 g/dL (6.4-8.2)
[2021-02-23 08:37] VITALS: O2SAT 95
[2021-02-23] MEDS: METOPROLOL TAR 25 MG TAB PO SCH (08:38)
[2021-02-23] MEDS: OXYBUTYNIN CHLORIDE 5 MG TAB PO SCH (08:48)
[2021-02-23 13:04] VITALS: BP 134/81; TEMP 97.7
--- NOTE | 2021-02-23 14:15 | P.DS ---
Admission Date: 02/21/21 Discharge Date: 02/23/21 Disposition: ROUTINE DISCHARGE Discharge Condition: FAIR Reason for Admission: UTI/hematuria - Problems (1) Hematuria Current Visit: Yes Status: Acute (2) UTI (urinary tract infection) Onset Date: 11/05/17 Current Visit: No Status: Acute Qualifiers: Urinary tract infection type: acute cystitis Hematuria presence: without hematuria Qualified Code(s): N30.00 - Acute cystitis without hematuria (3) Chronic venous hypertension w/ulcer and inflammation involv right side Current Visit: No Status: Chronic (4) Cellulitis of lower extremity Onset Date: 08/02/15 Current Visit: No Status: Resolved Hospital Course: Patient with indwelling suprapubic catheter, history of nephrolithiasis with bladder calculus admitted for transient hematuria draining Pedroza. Patient also have chronic lymphedema for which she uses compression stockings. On admission her urine was clear and remained clear during hospitalization. Patient admits to some intermittent abdominal cramps. CT of the abdomen shows positive bladder calculus as well as bilateral nephrolithiasis. Urology consult was initially advised but patient was not seen. Patient requesting discharge home and will follow up with her previous outpatient urologist Dr. Carlos Larson. She denies any fever or chills. White cell count was within normal limits. Her urine obtained at the time of presentation was positive for UTI although patient has indwelling Pedroza. Urine culture grew carbapenem resistant Enterobacter with Proteus mirabilis. Which was also velez resistance. Initial decision was to do fosfomycin as outpatient but given patient lack of symptoms patient will not be started on any antibiotics. She was actually started on potassium citrate to aid stone dissolution. She will follow with her urologist as outpatient. Patient was apparently also not taking her spironolactone as she states it gives uterine bleed. She was previously on furosemide for chronic lower extremity edema. Furosemide was restarted again now at a lower dose of 40 mg daily. Use of Urocit-K will minimize potassium loss from Lasix use Vital Signs/Physical Exam: Temp Pulse Resp BP Pulse Ox 97.7 F 74 19 134/81 96 02/23/21 12:00 02/23/21 12:00 02/23/21 12:00 02/23/21 12:00 02/23/21 12:00 General: Alert, In no apparent distress, Oriented x3 HEENT: Atraumatic, Normocephalic, PERRLA Neck: Supple, 2+ carotid pulse no bruit, JVD not distended Respiratory: Clear to auscultation bilaterally, Normal air movement Cardiovascular: No edema, Normal pulses, Regular rate/rhythm, Normal S1 S2 Gastrointestinal: Normal bowel sounds, Soft and benign, Non-distended, Other Musculoskeletal: No swelling Neurological: Normal gait, Normal speech, Normal strength at 5/5 x4 extr External genitalia: No edema, No lesions Laboratory Data at Discharge: WBC 8.20 K/uL (4.3-10.9) 02/23/21 04:49 Hgb 11.3 g/dL (12.0-15.0) L 02/23/21 04:49 Hct 33.7 % (36.0-45.0) L 02/23/21 04:49 Plt Count 199 K/uL (152-406) 02/23/21 04:49 PT 13.5 SECONDS (9.5-12.5) H 02/22/21 03:33 INR 1.17 02/22/21 03:33 APTT 31.2 SECONDS (24.3-36.9) 02/22/21 03:33 Sodium 139 mmol/L (136-145) 02/23/21 04:49 Potassium 3.7 mmol/L (3.5-5.1) 02/23/21 04:49 BUN 11 mg/dL (7-18) 02/23/21 04:49 Creatinine 0.74 mg/dL (0.55-1.3) 02/23/21 04:49 Glucose 112 mg/dL (74-106) H 02/23/21 04:49 Total Bilirubin 0.5 mg/dL (0.2-1.0) 02/23/21 04:49 AST 14 U/L (15-37) L 02/23/21 04:49 ALT 14 U/L (12-78) 02/23/21 04:49 Alkaline Phosphatase 59 U/L (45-117) 02/23/21 04:49 Lipase 113 U/L (73-393) 02/21/21 05:46 Home Medications: Lovastatin 1 tab PO BEDTIME 12/15/17 Metoprolol Tartrate [Lopressor*] 1 tab PO BID 09/16/19 Cranberry Fruit Extract/Vit C [Azo Cranberry Softgel] 1 each PO BID 01/14/21 Diphenhydramine [Benadryl*] 25 mg PO BEDTIME 01/14/21 Gabapentin 300 mg PO BEDTIME 01/14/21 Folic Acid 1 mg PO DAILY #90 tablet 01/21/21 Hydrocodone 7.5/APAP 325 [[place] 7.5/325 mg*] 1 tab PO BID PRN #10 tab 01/21/21 Benzonatate [Tessalon Perle*] 100 mg PO TIDP PRN #30 cap 02/07/21 Mometasone/Formoterol [Dulera 200 Mcg/5 Mcg Inhaler] 2 puff IH BID #1 inhaler 02/07/21 Nystatin Powder [Mycostatin (Powder)*] 1 appl TOP DAILY #1 btl 02/07/21 Rivaroxaban [Xarelto] 1 each PO BID #51 tab.ds.pk 02/07/21 Spironolactone [Aldactone*] 25 mg PO BID #60 tab 02/07/21 Lactobacillus Acidophilus [Acidophilus Lactobacilli] 1 cap PO BID 02/21/21 Oxybutynin Chloride 1 tab PO BID 02/21/21 Furosemide [Lasix] 40 mg PO DAILY #30 tablet 02/23/21 Potassium Citrate [Urocit-K] 15 meq PO BID #60 tablet.er 02/23/21 New Medications: Furosemide [Lasix] 40 mg PO DAILY #30 tablet Potassium Citrate [Urocit-K] 15 meq PO BID #60 tablet.er Diet: Regular Activity: Ad yobani Followup: NONE,NONE [Primary Care Provider] - Time spent managing pt's care (in minutes): 40
== END 2021-02-23 15:34 | disposition home health service (06) | DRG 699 ==
LOC: ER 04:54 → ERHOLD 08:31 → 4TH 13:44 → OBSVTOIN 19:58
PROVIDERS: ADMIT Hospitalist; ATTEND Internal Medicine
DX: T83.511A Infection and inflammatory reaction due to indwelling urethral catheter, initial encounter (principal); N30.01 Acute cystitis with hematuria; N17.9 Acute kidney failure, unspecified; Z68.43 Body mass index [BMI] 50.0-59.9, adult; J44.1 Chronic obstructive pulmonary disease with (acute) exacerbation; Z16.29 Resistance to other single specified antibiotic; I87.331 Chronic venous hypertension (idiopathic) with ulcer and inflammation of right lower extremity; L03.119 Cellulitis of unspecified part of limb; D72.829 Elevated white blood cell count, unspecified; D50.0 Iron deficiency anemia secondary to blood loss (chronic); I10 Essential (primary) hypertension; E66.9 Obesity, unspecified; L89.322 Pressure ulcer of left buttock, stage 2; I89.0 Lymphedema, not elsewhere classified; I95.9 Hypotension, unspecified; E78.5 Hyperlipidemia, unspecified; B96.4 Proteus (mirabilis) (morganii) as the cause of diseases classified elsewhere; Z88.1 Allergy status to other antibiotic agents; Z88.5 Allergy status to narcotic agent; Z91.048 Other nonmedicinal substance allergy status; Z91.09 Other allergy status, other than to drugs and biological substances; Z88.7 Allergy status to serum and vaccine; Z88.8 Allergy status to other drugs, medicaments and biological substances; Z91.018 Allergy to other foods; Z79.899 Other long term (current) drug therapy; Z20.822 Contact with and (suspected) exposure to COVID-19
CPT/HCPCS: 36415; 74176; 80048; 80053; 80076; 81003; 83690; 85025; 85610; 85730; 87077; 87086; 87088; 87186; 96361; 96365; 96375; 99285; G0378; J2270; J2405; J7030; U0003

== ENCOUNTER 2021-05-16 16:23 | Inpatient (IN) | payer OTHER ==
--- OUTSIDE RECORDS SUMMARY | 2021-05-16 16:30 | XMS REPORT | Continuity of Care Document ---
:1955 Author Organization [facility] t Address [address] [place] [address] Care Team Providers Name Role Phone Neri Gutierrez Attending Clinician Unavailable Problems This patient has no known problems. Allergies, Adverse Reactions, Alerts Allergy Allergy Status Severity Reaction(s) Onset Inactive Treating [facility] ents Source Name Type Date Date Clinician sulfa Adverse Active Info Not [facility] Reaction Available [facility] Rocephin Adverse Active Info [facility] Reaction Available [facility] Macrobid Adverse Active Info [facility] Available [facility] Lincocin Adverse Active Info [facility] Reaction Available [facility] Fentanyl Adverse Active Info [facility] Reaction Available [facility] Betadine Adverse Active Info [facility] Reaction Available [facility] Augmenti Adverse Active Info [facility] n Reaction Available [facility] Aloe Adverse Active Info Not [facility] Vera Reaction Available [facility] Vancomyc Adverse Active Info [facility] in HCl Reaction Available [facility] Medications Ordered Filled Start Stop Current Ordering Indication Dosage Frequency Signature Comments Components Source Medication Medication Date Date Medication? Clinician (SIG) Name Name Metoprolol Metoprolol Yes Na Gutierrez [address] [facility] Tartrate Tartrate 8-26 with food Sanna kes - 00:00: [facility] 00 [facility] Doxycycline Doxycycline 2018-1 Yes Na Gutierrez [address] [facility] Hyclate [facility]clate 1-21 [facility] Metoprolol Metoprolol Yes Na Brenda 1/[address] [facility] Tartrate Tartrate with food [facility]anna k[facility] Procedures This patient has no known procedures. Encounters Start End Encounter Admission Attending Care Care Encounter Source Date/Time Date/Time Type Type Clinicians Facility Department ID 2021-05-14 Outpatient Judith Gutierrez [facility] [id number] [facility] 09:20[facility]01 [facility] 2021-04-26 Outpatient Judith Gutierrez [facility] [id number] [facility] 15:13:00 [id number] [facility] 2021-04-04 Outpatient Judith Gutierrez [facility] [id number] [facility] 13:37:41 [id number] [facility] 2021-04-04 Outpatient Judith Gutierrez [facility] [id number] [facility] 13:27:35 [id number] [facility] 2021-04-04 Outpatient Judith Gutierrez [facility] [id number] [facility] 13:10:57 [id number] [facility] 2021-04-04 Outpatient Judith Gutierrez [facility] [id number] [facility] 12:33:38 [id number] [facility] 2021-04-04 Outpatient Judith Gutierrez [facility] [id number] [facility] 12:33:09 [id number] [facility] 2021-04-04 Outpatient Brenda, Na [facility] [id number] [facility] 11:19:52 [id number] [facility] 2021-04-04 Outpatient Judith Gutierrez [facility] [id number] [facility] 11:19:18 [id number] [facility] 2021-05-14 2021-05-14 ambulatory [facility] [id number] [facility] 2021-04-26 2021-04-26 ambulatory [facility] [id number] [facility] 2021-04-12 2021-04-12 ambulatory [facility] [id number] [facility] 2021-03-30 2021-03-30 ambulatory [facility] [id number] [facility] 2021-02-27 2021-02-27 ambulatory [facility] [id number] [facility] 2021-01-01 2021-01-01 Outpatient [facility] [id number] [facility] 2020-12-19 2020-12-19 Outpatient [facility] [id number] [facility] 2020-10-26 2020-10-26 Outpatient [facility] [id number] [facility] 2020-10-26 2020-10-26 Outpatient [facility] [id number] [facility] 2020-10-19 2020-10-19 Outpatient [facility] [id number] [facility] 2020-10-11 2020-10-11 Outpatient [facility] [id number] [facility] 2020-09-27 2020-09-27 Outpatient [facility] [id number] [facility] 2020-09-27 2020-09-27 Outpatient [facility] [id number] [facility] 2020-09-22 2020-09-22 Outpatient [facility] [id number] [facility] 2020-08-15 2020-08-15 Outpatient [facility] [id number] [facility] 2020-07-21 2020-07-21 Outpatient [facility] [id number] [facility] 2020-07-03 2020-07-03 Outpatient [facility] [id number] [facility] 2020-06-30 2020-06-30 Outpatient [facility] [id number] [facility] 2020-06-30 2020-06-30 Outpatient [facility] [id number] [facility] 2020-06-27 2020-06-27 Outpatient [facility] [id number] [facility] 2020-06-07 2020-06-07 Outpatient [facility] [id number] [facility] 2020-05-29 2020-05-29 Outpatient [facility] [id number] [facility] 2020-05-23 2020-05-23 Outpatient [facility] [id number] [facility] 2020-05-11 2020-05-11 Outpatient [facility] [id number] [facility] 2020-05-07 2020-05-07 Outpatient [facility] [id number] [facility] 2020-05-04 2020-05-04 Outpatient [facility] [id number] [facility] 2020-04-19 2020-04-19 Outpatient [facility] [id number] [facility] 2020-04-04 2020-04-04 Outpatient [facility] [id number] [facility] 2020-02-04 2020-02-04 Outpatient [facility] [id number] [facility] 2020-02-01 2020-02-01 Outpatient [facility] [id number] [facility] 2020-01-05 2020-01-05 Outpatient [facility] [id number] [facility] 2019-12-20 2019-12-20 Outpatient [facility] [id number] [facility] 2019-12-19 2019-12-19 Outpatient [facility] [id number] [facility] 2019-12-17 2019-12-17 Outpatient [facility] [id number] [facility] 2019-11-03 2019-11-03 [facility] [id number] [facility] 10:19:00 10:19:00 120 [employer] - [place] [facility] Clinics 2019-10-06 2019-10-06 [facility] [id number] [facility] 16:47:00 16:47:00 t Amber Amber Velteo s - [place] [facility] Medicine l Medicine Outpati ent Clinics 2019-09-30 2019-09-30 [facility] [id number] [facility] 14:56:00 14:56:00 t Amber Kontest s - Drive [facility] Medicine l Medicine Outpati ent Clinics 2019-09-14 2019-09-14 [facility] [id number] [facility] 13:55:00 13:55:00 t Amber Amber Velteo s - [place] [facility] Medicine l Medicine Outpati ent Clinics 2019-08-12 2019-08-12 [facility] [id number] [facility] 11:39:00 11:39:00 t Amber Kontest s - [place] [facility] Medicine l Medicine Outpati ent Clinics 2019-07-09 2019-07-09 [facility] [id number] [facility] 11:26:00 11:26:00 t Amber Kontest s [employer] [facility] Medicine Medicine Outpati ent Clinics 2019-07-06 2019-07-06 [facility] [id number] [facility] 14:00:00 14:00:00 t Amber Kontest s [employer] [facility] Medicine Medicine Outpati ent Clinics 2019-06-11 2019-06-11 [facility] [id number] [facility] 10:29:00 10:29:00 t Amber Amber Velteo s [employer] [facility] Medicine l Medicine Outpati ent Clinics 2019-06-08 2019-06-08 [facility] [id number] [facility] 10:57:00 10:57:00 t Amber Kontest s [employer] [facility] Medicine Medicine Outpati ent Clinics 2019-05-24 2019-05-24 [facility] [id number] [facility] 14:44:00 14:44:00 t Amber Kontest s [employer] [address] [facility] Medicine l Medicine Outpati ent Clinics 2019-04-12 2019-04-12 [facility] [id number] [facility] 10:58:00 10:58:00 t Amber Kontest s - Drive [facility] Medicine Medicine Outpati ent Clinics 2019-04-08 2019-04-08 [facility] [id number] [facility] 17:13:00 17:13:00 t Amber Amber [place] Luke s - Drive [facility] l Medicine Outpati ent Clinics 2019-03-26 2019-03-26 [facility] [id number] [facility] 07:58:00 07:58:00 t Amber Amber [place] [employer] - Drive [facility] Medicine Outpati ent Clinics 2019-02-01 2019-02-01 [facility] [id number] [facility] 10:49:00 10:49:00 t Amber Amber Velteo s - Drive [facility] Medicine Outpati ent Clinics 2019-01-21 2019-01-21 [facility] [id number] [facility] 12:09:00 12:09:00 t Amber Amber Velteo s - Drive [facility] Medicine Outpati ent Clinics 2018-12-31 2018-12-31 [facility] [id number] [facility] 13:40:00 13:40:00 t Amber Amber Velteo s - Drive [facility] Medicine l Medicine Outpati ent Clinics 2018-12-24 2018-12-24 [facility] [id number] [facility] 16:51:00 16:51:00 t Amber Kontest s - Drive [facility] Medicine Outpati ent Clinics 2018-12-22 2018-12-22 [facility] [id number] [facility] 10:09:00 10:09:00 t Amber Kontest s - Drive [facility] Medicine Outpati ent Clinics 2018-12-16 2018-12-16 [facility] [id number] [facility] 13:32:00 13:32:00 t Amber Amber Velteo s - Drive [facility] Medicine Outpati ent Clinics 2018-12-09 2018-12-09 [facility] [id number] [facility] 15:07:00 15:07:00 t Amber Amber [place] [employer] - Drive [facility] Medicine Outpati ent Clinics 2018-12-08 2018-12-08 [facility] [id number] [facility] 09:21:00 09:21:00 t Amber Amber [place] [employer] - Drive [facility] Medicine Outpati ent Clinics 2018-12-07 2018-12-07 [facility] [id number] [facility] 15:10:00 15:10:00 t Amber Amber [place] [employer] - Drive [facility] Medicine Outpati ent Clinics 2018-10-29 2018-10-29 [facility] [id number] [facility] 11:00:00 11:00:00 t Amber Amber Velteo s - Drive [facility] Medicine Outpati ent Clinics 2018-10-20 2018-10-20 [facility] [id number] [facility] 13:23:00 13:23:00 t Amber Amber Velteo s - Drive [facility] Medicine Outpati ent Clinics 2018-10-05 2018-10-05 [facility] [id number] [facility] 16:27:00 16:27:00 t Amber Amber Velteo s - Drive [facility] Medicine Outpati ent Clinics 2018-09-25 2018-09-25 [facility] [id number] [facility] 16:15:00 16:15:00 t Amber Amber Velteo s - Drive [facility] Medicine Outpati ent Clinics 2018-09-23 2018-09-23 [facility] [id number] [facility] 15:54:00 15:54:00 t Amber Amber Velteo s - Drive [facility] Medicine Outpati ent Clinics 2018-08-27 2018-08-27 [facility] [id number] [facility] 16:00:00 16:00:00 t Amber Amber Velteo s - Drive [facility] Medicine Outpati ent Clinics 2018-08-25 2018-08-25 [facility] [id number] [facility] 15:20:00 15:20:00 t Amber Kontest s - Drive [facility] Medicine Outpati ent Clinics Results This patient has no known results.
[2021-05-16 17:58] LABS: Absolute Lymphocytes (CBC) 1.1 K/uL (0.7-4.9); Hematocrit 33.7 % (36.0-45.0); Lymphocytes % 15.1 % (15.3-44.8); MPV 8.8 fL (7.6-11.3); RBC Red Blood Cell Count 3.83 M/uL (3.86-4.86)
[2021-05-16 18:01] LABS: Protime INR 1.05
[2021-05-16] MEDS ORDERED: NA CHLORIDE 0.9% 50 ML ONE (18:01)
[2021-05-16] MEDS ORDERED: Meropenem 1000 MG/VIAL IV ONE (18:01)
[2021-05-16] MEDS ORDERED: NA CHLORIDE 0.9% 1,000 ML ONE (18:01)
--- NOTE | 2021-05-16 18:02 | EDPHYS ---
Physician Documentation [facility] Name: Jv Bryant Age: 66 yrs Sex: Female : 1955 Arrival Date: 05/16/2021 Time: 16:27 Bed 15 Private MD: ED Physician Pascual Wray HPI: 05/16 17:51 This 66 yrs old Female presents to ER via EMS with complaints of resistant vinicius uti, symptomatic, lymphedema. 17:51 The patient presents with decreased range of motion, pain. The complaints affect the vinicius right leg and left leg. Context: The problem was sustained at an unknown site. Onset: The symptoms/episode began/occurred 1 week(s) ago. Modifying factors: The symptoms are alleviated by nothing. Associated signs and symptoms: Pertinent positives: weakness. The patient presents with urinary symptoms, dysuria, frequency, hesitancy, hx suprapubic. Onset: The symptoms/episode began/occurred 1 week(s) ago. Associated signs and symptoms: The patient has no apparent associated signs or symptoms. Severity of symptoms: At their worst the symptoms were moderate, in the emergency department the symptoms are unchanged. Historical: - Allergies: 18:34 aloe vera; ab2 18:34 Fentanyl; ab2 18:34 Iodine; ab2 18:34 Macrolide Antibiotics; ab2 18:34 Sulfa (Sulfonamide Antibiotics); ab2 - Immunization history:: Adult Immunizations up to date. - Social history:: Smoking status: . - Family history:: not pertinent. ROS: 17:51 Constitutional: Negative for fever, chills, and weight loss, Eyes: Negative for injury, vinicius pain, redness, and discharge, ENT: Negative for injury, pain, and discharge, Neck: Negative for injury, pain, and swelling, Cardiovascular: Negative for chest pain, palpitations, and edema, Respiratory: Negative for shortness of breath, cough, wheezing, and pleuritic chest pain, Abdomen/GI: Negative for abdominal pain, nausea, vomiting, diarrhea, and constipation, Back: Negative for injury and pain, Skin: Negative for injury, rash, and discoloration, Neuro: Negative for headache, weakness, numbness, tingling, and seizure, Psych: Negative for depression, anxiety, suicide ideation, homicidal ideation, and hallucinations, Allergy/Immunology: Negative for hives, rash, and allergies, Endocrine: Negative for neck swelling, polydipsia, polyuria, polyphagia, and marked weight changes. 17:51 : Positive for urinary symptoms, flank pain, urinary frequency, suprapubic catheter. Exam: 17:51 Constitutional: This is a well developed, well nourished patient who is awake, alert, vinicius and in no acute distress. Head/Face: Normocephalic, atraumatic. Eyes: Pupils equal round and reactive to light, extra-ocular motions intact. Lids and lashes normal. Conjunctiva and sclera are non-icteric and not injected. Cornea within normal limits. Periorbital areas with no swelling, redness, or edema. ENT: Nares patent. No nasal discharge, no septal abnormalities noted. Tympanic membranes are normal and external auditory canals are clear. Oropharynx with no redness, swelling, or masses, exudates, or evidence of obstruction, uvula midline. Mucous membranes moist. Neck: Trachea midline, no thyromegaly or masses palpated, and no cervical lymphadenopathy. Supple, full range of motion without nuchal rigidity, or vertebral point tenderness. No Meningismus. Chest/axilla: Normal chest wall appearance and motion. Nontender with no deformity. No lesions are appreciated. Cardiovascular: Regular rate and rhythm with a normal S1 and S2. No gallops, murmurs, or rubs. Normal PMI, no JVD. No pulse deficits. Respiratory: Lungs have equal breath sounds bilaterally, clear to auscultation and percussion. No rales, rhonchi or wheezes noted. No increased work of breathing, no retractions or nasal flaring. Back: No spinal tenderness. No costovertebral tenderness. Full range of motion. Female : Normal external genitalia. Skin: Warm, dry with normal turgor. Normal color with no rashes, no lesions, and no evidence of cellulitis. Neuro: Awake and alert, GCS 15, oriented to person, place, time, and situation. Cranial nerves II-XII grossly intact. Motor strength 5/5 in all extremities. Sensory grossly intact. Cerebellar exam normal. Normal gait. Psych: Awake, alert, with orientation to person, place and time. Behavior, mood, and affect are within normal limits. 17:51 ECG was reviewed by the Attending Physician. 17:51 Abdomen/GI: Inspection: distension, that is mild, Bowel sounds: normal, Palpation: mild abdominal tenderness, in the suprapubic area, Liver: no appreciated palpable abnormalities, Hernia: not appreciated. Vital Signs: 16:27 BP 113 / 53; Pulse 75; Resp 20; Temp 98.6; Pulse Ox 99% ; Weight 165.56 kg; Height 5 cb5 ft. 4 in. (162.56 cm); Pain 2/10; 16:47 BP 113 / 53; Pulse 75; Resp 20; Temp 98.6; Pulse Ox 99% ; Pain 2/10; cb5 17:30 BP 101 / 45; Pulse 67; Resp 18; Pulse Ox 99% ; Pain 2/10; cb5 18:00 BP 110 / 52; Pulse 80; Resp 16; Pulse Ox 99% ; cb5 18:30 BP 123 / 69; Pulse 76; Resp 18; Pulse Ox 99% ; cb5 19:30 BP 111 / 88; Pulse 91; Resp 20 S; Pulse Ox 91% on R/A; Pain 7/10; al4 16:27 Body Mass Index 62.65 (165.56 kg, 162.56 cm) cb5 MDM: 16:55 Patient medically screened. vinicius 17:56 Differential diagnosis: urinary tract infection. Differential Diagnosis sepsis. Data vinicius reviewed: vital signs, nurses notes, lab test result(s), EKG, radiologic studies, plain films. Data interpreted: rough rice grader: rate is 75 beats/min, rhythm is regular, Pulse oximetry: on room air is 99 %. Test interpretation: by ED physician or midlevel provider: ECG, plain radiologic studies. Counseling: I had a detailed discussion with the patient and/or guardian regarding: the historical points, exam findings, and any diagnostic results supporting the discharge/admit diagnosis, lab results, radiology results, the need for further work-up and treatment in the hospital. 05/16 17:17 Order name: Basic Metabolic Panel [facility] 05/16 17:17 Order name: CBC with Diff [facility] 05/16 17:17 Order name: LFT's; Complete Time: 18:24 [facility] 05/16 17:17 Order name: Magnesium; Complete Time: 18:24 [facility] 05/16 17:17 Order name: NT PRO-BNP; Complete Time: 18:24 [facility] 05/16 17:17 Order name: PT-INR; Complete Time: 18:11 [facility] 05/16 17:17 Order name: Troponin HS; Complete Time: 18:24 [facility] 05/16 17:17 Order name: Lipase; Complete Time: 18:24 [facility] 05/16 17:17 Order name: Blood Culture Adult (2) [facility] 05/16 17:17 Order name: Lactate; Complete Time: 18:21 [facility] 05/16 17:17 Order name: Procalcitonin [facility] 05/16 17:17 Order name: SARS-COV-2 RT PCR (Document "Date of Onset" if Symptomatic) [facility] 05/16 17:18 Order name: Basic Metabolic Panel; Complete Time: 18:24 [facility] 05/16 17:18 Order name: CBC with Automated Diff; Complete Time: 18:11 [facility] 05/16 17:17 Order name: XRAY Chest (1 view) [facility] 05/16 17:17 Order name: EKG; Complete Time: 17:18 [facility] 05/16 17:17 Order name: Cardiac monitoring; Complete Time: 17:54 [facility] 05/16 17:17 Order name: EKG - Nurse/Tech; Complete Time: 17:54 [facility] 05/16 17:17 Order name: IV Saline Lock; Complete Time: 17:53 [facility] 05/16 17:17 Order name: Labs collected and sent; Complete Time: 17:53 [facility] 05/16 17:17 Order name: O2 Per Protocol; Complete Time: 17:53 [facility] 05/16 20:07 Order name: RAD [facility] 05/16 17:17 Order name: O2 Sat Monitoring; Complete Time: 17:53 [facility] EC:51 Rate is 68 beats/min. Rhythm is regular. QRS [place] is Normal. CO interval is normal. QRS vinicius interval is normal. QT interval is normal. No Q waves. T waves are Normal. No ST changes noted. Clinical impression: NSR w/ Non-specific ST/T Changes and No evidence of ischemia. Interpreted by me. Reviewed by me. Administered Medications: 17:59 Drug: Meropenem 1 grams Route: IV; Rate: per protocol; Site: right antecubital; cb5 17:59 Drug: NS 0.9% 1000 ml Route: IV; Rate: 125 ml/hr; Site: right antecubital; cb5 18:30 Drug: Benadryl (diphenhydrAMINE) 25 mg Route: IVP; Site: right antecubital; cb5 18:31 Drug: Pepcid (famotidine) 40 mg Route: IVP; Site: right antecubital; cb5 18:31 Drug: SOLU-Medrol (methylPrednisoLONE) 125 mg Route: IVP; Site: right antecubital; cb5 18:42 Drug: Xopenex (levalbuterol) 2.5 mg Route: Inhalation; cb5 19:20 Follow up: Response: No adverse reaction al4 18:42 Drug: AtroVENT (ipratropium) Aerosol 0.5 mg Route: Inhalation; cb5 19:20 Follow up: Response: No adverse reaction al4 20:05 Drug: Benadryl (diphenhydrAMINE) 25 mg Route: IVP; Site: left hand; al4 20:30 Follow up: Response: No adverse reaction al4 Disposition Summary: 05/16/21 18:01 Hospitalization Ordered Hospitalization Status: Inpatient Admission vinicius [facility] vinicius Condition: Fair vinicius Problem: new vinicius Symptoms: are unchanged vinicius Bed/Room Type: Standard vinicius Provider: Zach Frost(05/16/21 18:04) vinicius Room Assignment: [facility](05/16/21 19:37) eb1 Diagnosis - Disorder of urinary system, unspecified - suprapubic catheter vinicius - Morbid (severe) obesity due to excess calories vinicius - Lymphedema, not elsewhere classified vinicius - Weakness vinicius Forms: - Medication Reconciliation Form vinicius - SBAR form vinicius Signatures: Dispatcher [employer] EDPascual Jackson MD MD cha Basinger, Emily RN RN eb1 Nehemiah Blair4 Allyssa Gunter RN RN cb5 Nehemiah Deleon2 Yolanda Boogie PA PA sb3 Corrections: (The following items were deleted from the chart) 18:04 18:01 Helena Lamb cha vinicius 19:37 18:01 vinicius eb1
--- NOTE | 2021-05-16 18:02 | ER ---
Nurse's Notes [facility] Name: Jv Bryant Age: 66 yrs Sex: Female : 1955 Arrival Date: 05/16/2021 Time: 16:27 Bed 15 Private MD: Diagnosis: Disorder of urinary system, unspecified-suprapubic catheter;Morbid (severe) obesity due to excess calories;Lymphedema, not elsewhere classified;Weakness Presentation: 05/16 16:27 Chief complaint: Patient states: needs PICC line placement. Coronavirus screen: Client cb5 denies travel out of the [place] in the last 14 days. Client indicates they have traveled out of the [place] in the last 14 days. Ebola Screen: Patient denies exposure to infectious person. Patient denies travel to an Ebola-affected area in the 21 days before illness onset. Initial Sepsis Screen: Does the patient meet any 2 criteria? No. Patient's initial sepsis screen is negative. Does the patient have a suspected source of infection? Yes: Other: pt arrived to ED with indwelling f/c. Risk Assessment: Do you want to hurt yourself or someone else? Patient reports no desire to harm self or others. 16:27 Method Of Arrival: EMS: [facility] cb5 16:27 Acuity: SKYLER 3 cb5 Triage Assessment: 16:27 General: Appears uncomfortable, obese, unkempt, Behavior is calm, cooperative, cb5 appropriate for age. Pain: Complains of pain in chronic be lower extremity, per pt. Historical: - Allergies: 18:34 aloe vera; ab2 18:34 Fentanyl; ab2 18:34 Iodine; ab2 18:34 Macrolide Antibiotics; ab2 18:34 Sulfa (Sulfonamide Antibiotics); ab2 - Immunization history:: Adult Immunizations up to date. - Social history:: Smoking status: . - Family history:: not pertinent. Screenin:47 Abuse screen: Denies threats or abuse. Denies injuries from another. Nutritional cb5 screening: No deficits noted. Tuberculosis screening: No symptoms or risk factors identified. Fall Risk None identified. Assessment: 16:30 General: Appears uncomfortable, obese, Behavior is calm, cooperative, appropriate for cb5 age. Pain: Complains of pain in be lower extremity per pt Pain currently is 2 out of 10 on a pain scale. Neuro: No deficits noted. Level of Consciousness is awake, alert, obeys commands, Oriented to person, place, time. Cardiovascular: No deficits noted. Respiratory: No deficits noted. GI: No deficits noted. : Pedroza in place Urine is clear. EENT: No deficits noted. Derm: Wound noted be lower extremity wounds, pt has daily wound care at home. Large amount of edema. pedal pulses present. Musculoskeletal: Swelling present in be lower extremity, pt uses a cane at home, and also a w/c. 18:00 General: after hanging antibiotic, approx 1-2 min later pt yelled out, states she felt cb5 funny, could feel something going through her body, restless anxious. Nurse immediately stopped antibiotic, VSS pt restless, reassured patient, informed nurse pt stopped antibiotic. . 18:05 General: Place oxygen on patient at 2LPM Lauri MANUEL is aware. cb5 18:48 Reassessment: Patient states feeling better. Patient states symptoms have improved. cb5 19:30 Reassessment: patient placed on 2L nasal cannula. al4 20:05 General: Appears uncomfortable, obese, Behavior is cooperative, agitated, patient al4 reports being uncomfortable. patient states she is having "twitches" and that she is itching all over after the meropenem administration. . Pain: Complains of pain in left leg and right leg Pain currently is 7 out of 10 on a pain scale. Neuro: Level of Consciousness is awake, alert, obeys commands, Oriented to person, place, time, situation. Cardiovascular: Patient's skin is warm and dry. Respiratory: Airway is patent Respiratory effort is unlabored, Respiratory pattern is regular. Derm: Wound noted left leg and right leg Other: patient has BLL lower extremity wounds that are bandaged, patient has weekly wound care at home. patient has BLL edema. Musculoskeletal: Range of motion: limited in all extremities, Swelling present in left leg and right leg patient uses a cane to ambulate. 20:05 : Pedroza in place. al4 20:20 Reassessment: attempted to call report. placed on hold - unable to give report at this al4 time. 21:00 Reassessment: Report given to ALO Glass. al4 Vital Signs: 16:27 BP 113 / 53; Pulse 75; Resp 20; Temp 98.6; Pulse Ox 99% ; Weight 165.56 kg; Height 5 cb5 ft. 4 in. (162.56 cm); Pain 2/10; 16:47 BP 113 / 53; Pulse 75; Resp 20; Temp 98.6; Pulse Ox 99% ; Pain 2/10; cb5 17:30 BP 101 / 45; Pulse 67; Resp 18; Pulse Ox 99% ; Pain 2/10; cb5 18:00 BP 110 / 52; Pulse 80; Resp 16; Pulse Ox 99% ; cb5 18:30 BP 123 / 69; Pulse 76; Resp 18; Pulse Ox 99% ; cb5 19:30 BP 111 / 88; Pulse 91; Resp 20 S; Pulse Ox 91% on R/A; Pain 7/10; al4 16:27 Body Mass Index 62.65 (165.56 kg, 162.56 cm) cb5 ED Course: 16:27 Patient arrived in ED. ab2 16:33 Allyssa Gunter, RN is Primary Nurse. cb5 16:42 Triage completed. cb5 16:43 Arm band placed on right wrist. cb5 16:47 No provider procedures requiring assistance completed. cb5 16:48 Patient has correct armband on for positive identification. Bed in low position. Call cb5 light in reach. Side rails up X2. 16:55 Pascual Wray MD is Attending Physician. vinicius 17:53 Procalcitonin Sent. cb5 17:53 Lactate Sent. cb5 17:53 Troponin HS Sent. cb5 17:53 PT-INR Sent. cb5 17:53 NT PRO-BNP Sent. cb5 17:53 Magnesium Sent. cb5 17:54 Basic Metabolic Panel Sent. cb5 17:54 CBC with Automated Diff Sent. cb5 17:54 SARS-COV-2 RT PCR (Document "Date of Onset" if Symptomatic) Sent. cb5 17:54 Basic Metabolic Panel Sent. cb5 17:54 CBC with Diff Sent. cb5 17:55 Lipase Sent. cb5 17:55 Blood Culture Adult (2) Sent. cb5 17:58 Helena Lamb MD is Hospitalizing Provider. vinicius 18:04 Zach Frost is Hospitalizing Provider. vinicius 18:04 bariatric bed ordered confirmation number...[id number]. bd 18:59 Report given to Alex. Perry cb5 19:58 Inserted saline lock: 20 gauge in left hand, using aseptic technique. sm5 19:58 IV discontinued, right AC. al4 20:25 Patient admitted, IV remains in place. al4 Administered Medications: 17:59 Drug: Meropenem 1 grams Route: IV; Rate: per protocol; Site: right antecubital; cb5 17:59 Drug: NS 0.9% 1000 ml Route: IV; Rate: 125 ml/hr; Site: right antecubital; cb5 18:30 Drug: Benadryl (diphenhydrAMINE) 25 mg Route: IVP; Site: right antecubital; cb5 18:31 Drug: Pepcid (famotidine) 40 mg Route: IVP; Site: right antecubital; cb5 18:31 Drug: SOLU-Medrol (methylPrednisoLONE) 125 mg Route: IVP; Site: right antecubital; cb5 18:42 Drug: Xopenex (levalbuterol) 2.5 mg Route: Inhalation; cb5 19:20 Follow up: Response: No adverse reaction al4 18:42 Drug: AtroVENT (ipratropium) Aerosol 0.5 mg Route: Inhalation; cb5 19:20 Follow up: Response: No adverse reaction al4 20:05 Drug: Benadryl (diphenhydrAMINE) 25 mg Route: IVP; Site: left hand; al4 20:30 Follow up: Response: No adverse reaction al4 Outcome: 18:01 Decision to Hospitalize by Provider. vinicius 20:24 Admitted to Med/surg room 205, Report called to ALO Glass. Unable to take report at al4 this time. Will try again 20:24 Condition: stable 20:24 Instructed on the need for admit, Demonstrated understanding of instructions. 21:09 Patient left the ED. al4 Signatures: Clementina De Anda Corey, MD MD cha Ledbetter, Alexis al4 Robina Uriarte RN RN Allyssa Sweeney, ALO RN Nehemiah Fernández ab2 Corrections: (The following items were deleted from the chart) 20:25 19:58 IV discontinued, al4 al4 20:57 20:05 Derm: Wound noted left leg and right leg Other: patient has BLL lower extremity al4 wounds that are bandaged, patient has daily wound care at home. patient has BLL edema al4 22:51 19:30 BP 111 / 88; Pulse 91bpm; Resp 20bpm; Spontaneous; Pulse Ox 91% RA; Pain 09/16; al4al4 22:52 19:30 BP 111 / 88; Pulse 91bpm; Resp 20bpm; Spontaneous; Pulse Ox 91% 2 lpm Nasal al4 Cannula; Pain 09/16; al4 05/17 01:57 05/16 20:05 Musculoskeletal: Swelling present in left leg and right leg patient uses a al4 cane to ambulate al4
[2021-05-16] MEDS ORDERED: METHYLPREDNISOLONE 125 MG INJ ONE (18:22)
[2021-05-16] MEDS ORDERED: DIPHENHYDRAMINE 50 MG/ML VIAL ONE ×2 (18:22→20:05)
[2021-05-16] MEDS ORDERED: FAMOTIDINE 20 MG/2 ML VIAL IV ONE (18:22)
[2021-05-16 18:23] LABS: Bilirubin Direct 0.1 mg/dL (0-0.2); Bilirubin Total 0.4 mg/dL (0.2-1.0); Magnesium 2.1 mg/dL (1.8-2.4); Potassium 3.8 mmol/L (3.5-5.1); Protein, Total 6.8 g/dL (6.4-8.2); Troponin High Sensitivity 5.2 pg/mL (<58.9)
[2021-05-16] MEDS ORDERED: IPRATROPIUM BROM 0.5MG/2.5ML ONE (18:45)
[2021-05-16] MEDS ORDERED: LEVALBUTEROL 1.25 MG/3 ML NEB ONE (18:45)
--- NOTE | 2021-05-16 19:11 | P.HP ---
Certification for Inpatient Patient admitted to: Inpatient With expected LOS: <2 Midnights Patient will require the following post-hospital care: None Practitioner: I am a practitioner with admitting privileges, knowledge of patient current condition, hospital course, and medical plan of care. Services: Services provided to patient in accordance with Admission requirements found in Title 42 Section 412.3 of the Code of Federal Regulations Patient History Date of Service: 05/16/21 Primary Care Provider: Brenda Reason for admission: UTI requiring PICC History of Present Illness: Patient is a 66-year-old female with morbid obesity, lymphedema requiring wound care, and an indwelling suprapubic catheter who presented to the ED today requesting a PICC line. Patient reports that on 05/04 she felt like she had a UTI so Dr. Gutierrez collected a sample and cultured it. About 3 days ago the culture and sensitivity resulted in Dr. Gutierrez instructed her to come to the ED for PICC line for IV antibiotics. Patient does have home health. In the ED, patient's WBC was 7.3 electrolytes within normal limits, pro-Richie negative, lactate negative. Blood cultures were drawn. Patient's urine culture from 05/04 resulted in susceptibility to cefepime, meropenem, and Zosyn. Patient has a penicillin allergy so ED gave her 1 dose of meropenem. Patient stated that she has had meropenem in the past and did not have a reaction. However patient did experience a small reaction to the meropenem in the ED. Patient states that her suprapubic catheter was changed by home health today. Will reculture urine and consult infectious disease for antibiotic recommendation. Patient will be admitted for treatment and PICC line placement. Allergies amoxicillin [From Augmentin] Allergy (Severe, Verified 09/16/19 23:49) diarrhea, nausea, vomiting ceftriaxone [From Rocephin] Allergy (Severe, Verified 09/16/19 23:49) Itching/Hives/Rash fentanyl Allergy (Severe, Verified 09/16/19 23:49) Itching/Hives/Rash iodine Allergy (Severe, Verified 09/16/19 23:49) Unknown lincomycin [From Lincocin] Allergy (Severe, Verified 09/16/19 23:49) rashes,headaches pneumococcal vaccine [From Pneumovax 23] Allergy (Severe, Verified 09/16/19 23:49) sick more than a week sulfamethoxazole [From Bactrim] Allergy (Severe, Verified 09/16/19 23:49) Anaphylaxis trifluoperazine [From Stelazine] Allergy (Severe, Verified 09/16/19 23:49) itching and rashes vancomycin Allergy (Severe, Verified 09/16/19 23:49) renal failure soap [From Betadine] Allergy (Mild, Verified 09/16/19 23:49) Hives/Rash Sulfa (Sulfonamide Antibiotics) Allergy (Mild, Verified 09/16/19 23:49) Anaphylaxis aloe vera Allergy (Verified 09/16/19 23:49) Itching celery Allergy (Verified 09/16/19 23:49) Nausea/Vomiting Macrolide Antibiotics Allergy (Verified 09/16/19 23:49) Itching/Hives/Rash FLU VACCINE Allergy (Severe, Uncoded 09/16/19 23:49) sick for more than a week aloe vera Allergy (Uncoded 09/16/19 23:49) Unknown hall peppers Allergy (Uncoded 09/16/19 23:49) Nausea/Vomiting celery Allergy (Uncoded 09/16/19 23:49) Unknown FLU VAC Allergy (Uncoded 09/16/19 23:49) Unknown peppers Allergy (Uncoded 09/16/19 23:49) Unknown Home medications list reviewed: Yes Home Medications: Lovastatin 1 tab PO BEDTIME 12/15/17 Metoprolol Tartrate [Lopressor*] 1 tab PO BID 09/16/19 Cranberry Fruit Extract/Vit C [Azo Cranberry Softgel] 1 each PO BID 01/14/21 Diphenhydramine [Benadryl*] 25 mg PO BEDTIME 01/14/21 Gabapentin 300 mg PO BEDTIME 01/14/21 Folic Acid 1 mg PO DAILY #90 tablet 01/21/21 Hydrocodone 7.5/APAP 325 [[place] 7.5/325 mg*] 1 tab PO BID PRN #10 tab 01/21/21 Benzonatate [Tessalon Perle*] 100 mg PO TIDP PRN #30 cap 02/07/21 Mometasone/Formoterol [Dulera 200 Mcg/5 Mcg Inhaler] 2 puff IH BID #1 inhaler 02/07/21 Nystatin Powder [Mycostatin (Powder)*] 1 appl TOP DAILY #1 btl 12/01/21 Rivaroxaban [Xarelto] 1 each PO BID #51 tab.ds.pk 02/07/21 Spironolactone [Aldactone*] 25 mg PO BID #60 tab 02/07/21 Lactobacillus Acidophilus [Acidophilus Lactobacilli] 1 cap PO BID 02/21/21 Oxybutynin Chloride 1 tab PO BID 02/21/21 Furosemide [Lasix] 40 mg PO DAILY #30 tablet 02/23/21 Potassium Citrate [Urocit-K] 15 meq PO BID #60 tablet.er 02/23/21 - Past Medical/Surgical History Diabetic: No -: Lymphedema - bilateral leg -: Morbid obesity with Hx of Lap. Band -: Peripheral neuropathy -: Osteoarthritis -: mild COPD -: mild eczema -: Depression -: Sleep apnea -: CHF -: CRE -: hypertension -: frequent UTIs -: -: Lap band 2008 -: Tonsillectomy and adenoidectomy Psychosocial/ Personal History: Patient is and lives by herself. She has home health. - Family History Father -: Heart disease Mother -: Hypertension, Stroke Notes: erin deirdre syndrome - Social History Smoking Status: Former smoker Alcohol use: No CD- Drugs: No Caffeine use: Yes Place of Residence: Home Review of Systems General: Fever, Weakness Respiratory: Shortness of Breath Genitourinary: As per HPI Integumentary: As per HPI Neurological: Weakness Physical Examination - Physical Exam General: Alert, In no apparent distress, Oriented x3, Obese HEENT: Atraumatic, PERRLA, Mucous membr. moist/pink, EOMI, Sclerae nonicteric Neck: Supple, 2+ carotid pulse no bruit, No LAD, Without JVD or thyroid abnormality Respiratory: Clear to auscultation bilaterally Cardiovascular: Regular rate/rhythm, Normal S1 S2 Gastrointestinal: Normal bowel sounds, No tenderness Musculoskeletal: No tenderness Integumentary: Other (Significant lymphedema bilaterally) Neurological: Normal speech, Normal strength at 5/5 x4 extr, Normal tone, Normal affect - Studies Laboratory Data (last 24 hrs) 05/16/21 17:42: PT 11.6, INR 1.05 05/16/21 17:42: WBC 7.30, Hgb 11.4 L, Hct 33.7 L, Plt Count 239 05/16/21 17:42: Sodium 141, Potassium 3.8, BUN 9, Creatinine 0.83, Glucose 100, Magnesium 2.1, Total Bilirubin 0.4, AST 9 L, ALT 11 L, Alkaline Phosphatase 61, Lipase 66 L Assessment and Plan - Problems (Diagnosis) (1) Catheter-associated urinary tract infection Current Visit: Yes Status: Acute Qualifiers: Indwelling urinary catheter type: cystostomy catheter Encounter type: initial encounter Qualified Code(s): T83.510A - Infection and inflammatory reaction due to cystostomy catheter, initial encounter; N39.0 - Urinary tract infection, site not specified (2) MDRO (multiple drug resistant organisms) resistance Current Visit: Yes Status: Chronic (3) Fibromyalgia Onset Date: 05/26/14 Current Visit: Yes Status: Chronic (4) Lymphedema of both lower extremities Onset Date: 12/12/16 Current Visit: Yes Status: Chronic (5) Morbid obesity Current Visit: Yes Status: Chronic (6) Peripheral neuropathy Onset Date: 08/21/15 Current Visit: Yes Status: Chronic Qualifiers: Peripheral neuropathy type: polyneuropathy, unspecified - Plan -Patient received 1 dose of meropenem in the ED and had a mild allergic reaction involving skin redness, tingling, and shortness of breath (anxiety may be contributing). ID consulted for antibiotic recommendation because she is resistant to multiple antibiotics and has several allergies. -Patient will require PICC line placement for IV antibiotic treatment for suprapubic catheter UTI. She does have home health. -Blood cultures drawn in the ED. We will reculture urine. Patient states her suprapubic catheter was changed today by home health. -We will continue IV fluids at 100 cc/h -Patient is not showing any signs of sepsis at this time. White blood cell count, pro-Richie, and lactate are all within normal limits and vitals are stable. -Patient requires wound care for her bilateral lower extremity lymphedema. Will resume here DVT PPx: Lovenox Code: Full Discharge Plan: Home Plan to discharge in: 48 Hours - Advance Directives Does patient have a Living Will: No Does patient have a Durable POA for Healthcare: No - Code Status/Comfort Care Code Status Assessed: Yes (Full) Critical Care: No Time Spent Managing Pts Care (In Minutes): 70
--- NOTE | 2021-05-16 20:06 | RAD REPORT ---
EXAM DESCRIPTION: RAD - Chest Single View - 05/16/2021 7:44 pm CLINICAL HISTORY: COUGH COMPARISON: Portable 02/04/2021 TECHNIQUE: AP portable chest image was obtained 05/16/2021 7:44 pm . FINDINGS: No focal mass or consolidation. Interstitial pattern is increased over the comparison. Thi s could be acute interstitial infectious infiltrate or interstitial edema. Upper lobe vasculature wit hin range of normal. Heart size is normal similar to comparison. No measurable pleural effusion and n o pneumothorax. No acute bony abnormality seen. No acute aortic findings suspected. IMPRESSION: Suspected interstitial infiltrate or edema superimposed on chronic interstitial lung dis ease.
[2021-05-16] MEDS ORDERED: LORazepam 2 MG/ML VIAL IV PRN (21:44)
[2021-05-16] MEDS: NA CHLORIDE 0.9% 1,000 ML IV SCH (21:44)
[2021-05-16] MEDS ORDERED: ACETAMINOPHEN 500 MG TAB PO PRN (21:44)
[2021-05-16] MEDS ORDERED: ALBUTEROL 2.5 MG/3 ML NEB SOL NEB PRN (21:44)
[2021-05-16] MEDS ORDERED: ONDANSETRON 4 MG/2 ML VIAL IV PRN (21:44)
[2021-05-16] MEDS: DIPHENHYDRAMINE 50 MG/ML VIAL IV PRN (22:55)
[2021-05-16] MEDS: MORPHINE 2 MG/ML SYR IV PRN (22:56)
[2021-05-17] MEDS ORDERED: NA CHLORIDE 0.9% 50 ML ONE (01:37)
[2021-05-17 05:34] LABS: Absolute Lymphocytes (CBC) 0.6 K/uL (0.7-4.9); Hematocrit 34.5 % (36.0-45.0); Lymphocytes % 7.9 % (15.3-44.8); MPV 8.8 fL (7.6-11.3); RBC Red Blood Cell Count 3.87 M/uL (3.86-4.86)
[2021-05-17] MEDS: DIPHENHYDRAMINE 50 MG/ML VIAL IV PRN (05:37)
[2021-05-17] MEDS: MORPHINE 2 MG/ML SYR IV PRN (05:37)
[2021-05-17 05:55] LABS: Albumin 2.8 g/dL (3.4-5.0); Bilirubin Total 0.3 mg/dL (0.2-1.0); Protein, Total 6.6 g/dL (6.4-8.2)
[2021-05-17 06:46] LABS: Blood Morphology Comment NOT SEEN (NOT SEEN); Platelet Estimate ADEQ
[2021-05-17] MEDS: NA CHLORIDE 0.9% 1,000 ML IV SCH ×2 (07:44→17:44)
[2021-05-17] MEDS: ENOXAPARIN 40 MG/0.4 ML SQ SCH (09:56)
--- NOTE | 2021-05-17 11:33 | P.CNS ---
Date of Consult: 05/17/21 Primary Care Provider: Brenda Chief Complaint: UTI requiring PICC History of Present Illness: The patient is a 66-year-old female with a past medical history significant of morbid obesity, chronic bilateral lower extremity lymphedema, CHF, and CAD who presented to the emergency department by the request of her primary care physician Dr. Gutierrez secondary to a multidrug-resistant urinary tract infection. Per patient Dr. Gutierrez stated that her urine culture report did not show susceptibility to me oral antibiotics and instructed her to come to the emergency department for PICC line placement. Patient does not know what bacteria was growing or which antibiotics were susceptible, I have called Dr. Gutierrez's office and left a message to obtain this information. Blood and urine culture reports taken at our facility on 05/16 are pending. Patient was given a single dose of meropenem in the emergency department however had adverse reactions and stated that she "felt like she was dying". Antibiotic selection made difficult secondary to patient's multiple drug allergies. On patient's last hospital admission she was discharged home on oral Levaquin and tolerated the antibiotic well. Have replaced patient on Levaquin at this time, pending urine culture susceptibility. Of note patient has chronic indwelling suprapubic catheter, she states it was last exchanged on 05/16. Patient currently reports tenderness to bilateral lower extremities. She denies shortness of breath, nausea/vomiting/diarrhea, or chest pain. Allergies amoxicillin [From Augmentin] Allergy (Severe, Verified 09/16/19 23:49) diarrhea, nausea, vomiting ceftriaxone [From Rocephin] Allergy (Severe, Verified 09/16/19 23:49) Itching/Hives/Rash fentanyl Allergy (Severe, Verified 09/16/19 23:49) Itching/Hives/Rash iodine Allergy (Severe, Verified 09/16/19 23:49) Unknown lincomycin [From Lincocin] Allergy (Severe, Verified 09/16/19 23:49) rashes,headaches pneumococcal vaccine [From Pneumovax 23] Allergy (Severe, Verified 09/16/19 23:49) sick more than a week sulfamethoxazole [From Bactrim] Allergy (Severe, Verified 09/16/19 23:49) Anaphylaxis trifluoperazine [From Stelazine] Allergy (Severe, Verified 09/16/19 23:49) itching and rashes vancomycin Allergy (Severe, Verified 09/16/19 23:49) renal failure soap [From Betadine] Allergy (Mild, Verified 09/16/19 23:49) Hives/Rash Sulfa (Sulfonamide Antibiotics) Allergy (Mild, Verified 09/16/19 23:49) Anaphylaxis aloe vera Allergy (Verified 09/16/19 23:49) Itching celery Allergy (Verified 09/16/19 23:49) Nausea/Vomiting Macrolide Antibiotics Allergy (Verified 09/16/19 23:49) Itching/Hives/Rash FLU VACCINE Allergy (Severe, Uncoded 09/16/19 23:49) sick for more than a week aloe vera Allergy (Uncoded 09/16/19 23:49) Unknown hall peppers Allergy (Uncoded 09/16/19 23:49) Nausea/Vomiting celery Allergy (Uncoded 09/16/19 23:49) Unknown FLU VAC Allergy (Uncoded 09/16/19 23:49) Unknown peppers Allergy (Uncoded 09/16/19 23:49) Unknown Home Medications: Lovastatin 1 tab PO BEDTIME 12/15/17 Metoprolol Tartrate [Lopressor*] 1 tab PO BID 09/16/19 Cranberry Fruit Extract/Vit C [Azo Cranberry Softgel] 1 each PO BID 01/14/21 Diphenhydramine [Benadryl*] 25 mg PO BEDTIME 01/14/21 Gabapentin 300 mg PO BEDTIME 01/14/21 Folic Acid 1 mg PO DAILY #90 tablet 01/21/21 Hydrocodone 7.5/APAP 325 [[place] 7.5/325 mg*] 1 tab PO BID PRN #10 tab 01/21/21 Benzonatate [Tessalon Perle*] 100 mg PO TIDP PRN #30 cap 02/07/21 Mometasone/Formoterol [Dulera 200 Mcg/5 Mcg Inhaler] 2 puff IH BID #1 inhaler 02/07/21 Nystatin Powder [Mycostatin (Powder)*] 1 appl TOP DAILY #1 btl 02/07/21 Lactobacillus Acidophilus [Acidophilus Lactobacilli] 1 cap PO BID 02/21/21 Oxybutynin Chloride 1 tab PO BID 02/21/21 Furosemide [Lasix] 40 mg PO DAILY #30 tablet 02/23/21 Potassium Citrate [Urocit-K] 15 meq PO BID #60 tablet.er 02/23/21 - Past Medical/Surgical History Diabetic: No -: Lymphedema - bilateral leg -: Morbid obesity with Hx of Lap. Band -: Peripheral neuropathy -: Osteoarthritis -: mild COPD -: mild eczema -: Depression -: Sleep apnea -: CHF -: CRE -: hypertension -: frequent UTIs -: -: Lap band 2008 -: Tonsillectomy and adenoidectomy Psychosocial/ Personal History: Patient is and lives by herself. She has home health. - Family History Father Medical History: Heart disease Mother Medical History: Hypertension, Stroke Notes: erin deirdre syndrome - Social History Smoking Status: Unknown if ever smoked Alcohol use: No CD- Drugs: No Caffeine use: Yes Place of Residence: Home Review of Systems 10-point ROS is otherwise unremarkable Physical Examination Temp Pulse Resp BP Pulse Ox 97.2 F 59 20 139/72 94 05/17/21 08:00 05/17/21 08:00 05/17/21 08:00 05/17/21 08:00 05/17/21 08:00 General: Alert, Oriented x3, Obese HEENT: Atraumatic, Normocephalic Neck: Supple, 2+ carotid pulse no bruit Respiratory: Clear to auscultation bilaterally, Normal air movement Cardiovascular: Normal pulses, Regular rate/rhythm Gastrointestinal: Normal bowel sounds, Soft and benign Integumentary: Other (Bilateral lower extremity lymphedema with hyperkeratosis, bilateral posterior thigh deep tissue injuries) Laboratory Data (last 24 hrs) 05/16/21 17:42: PT 11.6, INR 1.05 05/16/21 17:42: WBC 7.30, Hgb 11.4 L, Hct 33.7 L, Plt Count 239 05/16/21 17:42: Sodium 141, Potassium 3.8, BUN 9, Creatinine 0.83, Glucose 100, Magnesium 2.1, Total Bilirubin 0.4, AST 9 L, ALT 11 L, Alkaline Phosphatase 61, Lipase 66 L Conclusions/Impression: Antibiotics Patient received a single dose of meropenem in the emergency department however had adverse reaction Levaquin: 05/17current Assessment/plan Recurrent complicated urinary tract infections Urine culture pending, continue Levaquin until susceptibility reports are back Bilateral lower extremity lymphedema Continue lymphedema wrapping/wound care per wound care team -Medical management per primary team Plan of care discussed with Dr. Hansen Thank you for consultation
--- NOTE | 2021-05-17 12:21 | P.PN ---
Subjective Date of Service: 05/17/21 Primary Care Provider: Brenda Chief Complaint: UTI requiring PICC Patient stated she developed some form of allergic reaction to IV meropenem given in the emergency department. She denies any complaint at this time. She stated her PCP told her to come to the emergency department because she has a urinary tract infection that is resistant to several antibiotics. Physical Examination - Vital Signs Temperature: 97.2 F Blood Pressure: 139/72 Pulse: 59 Respirations: 20 Pulse Ox (%): 94 - Physical Exam General: Alert, In no apparent distress, Obese HEENT: Mucous membr. moist/pink Neck: Supple, JVD not distended Respiratory: Clear to auscultation bilaterally, Normal air movement Cardiovascular: Regular rate/rhythm, Normal S1 S2, Edema (Bilateral legs) Gastrointestinal: Soft and benign, Non-distended, No tenderness Musculoskeletal: Other Integumentary: Other (Bilateral venous stasis dermatitis) Lymphatics: Other (Bilateral lower extremity lymphedema. Bilateral lymphedema wrap.) - Studies Laboratory Data (last 24 hrs) 05/16/21 17:42: PT 11.6, INR 1.05 05/16/21 17:42: WBC 7.30, Hgb 11.4 L, Hct 33.7 L, Plt Count 239 05/16/21 17:42: Sodium 141, Potassium 3.8, BUN 9, Creatinine 0.83, Glucose 100, Magnesium 2.1, Total Bilirubin 0.4, AST 9 L, ALT 11 L, Alkaline Phosphatase 61, Lipase 66 L Assessment And Plan - Current Problems (Diagnosis) (1) Catheter-associated urinary tract infection Current Visit: Yes Status: Acute Qualifiers: Indwelling urinary catheter type: cystostomy catheter Encounter type: initial encounter Qualified Code(s): T83.510A - Infection and inflammatory reaction due to cystostomy catheter, initial encounter; N39.0 - Urinary tract infection, site not specified (2) Lymphedema of both lower extremities Onset Date: 12/12/16 Current Visit: Yes Status: Chronic (3) MDRO (multiple drug resistant organisms) resistance Current Visit: Yes Status: Chronic (4) UTI (urinary tract infection) Onset Date: 11/05/17 Current Visit: No Status: Acute Qualifiers: Urinary tract infection type: acute cystitis Hematuria presence: without hematuria Qualified Code(s): N30.00 - Acute cystitis without hematuria (5) Chronic venous hypertension w/ulcer and inflammation involv right side Current Visit: No Status: Chronic - Plan Infectious disease input appreciated. Antibiotics changed to IV Levaquin for now. Attempt has been made to retrieve her urine culture result from Dr. Gutierrez's office. Follow urine culture and blood cultures obtained in the ED yesterday. Continue oral Lasix for lymphedema. Reconcile and continue other home medications.
[2021-05-17] MEDS ORDERED: HYDROCODONE/APAP 7.5/325 MG TAB PO PRN (12:22)
[2021-05-17] MEDS: BENZONATATE 100 MG CAP PO PRN (13:06)
[2021-05-17] MEDS ORDERED: ALBUTEROL 2.5 MG/3 ML NEB SOL NEB PRN (17:00)
[2021-05-17] MEDS: ATORVASTATIN 10 MG TAB PO SCH (20:27)
[2021-05-17] MEDS: GABAPENTIN 300 MG CAP PO SCH (20:28)
[2021-05-17] MEDS: OXYBUTYNIN CHLORIDE 5 MG TAB PO SCH (20:28)
[2021-05-17] MEDS: LACTOBACILLUS/ACIDOPHILUS TAB PO SCH (20:28)
[2021-05-17] MEDS: DULERA 200/5 (MOMETASONE/FORMOTEROL) INHALER IH SCH (20:29)
[2021-05-17] MEDS: CRANBERRY FRUIT EXTRACT PO SCH (20:30)
[2021-05-17] MEDS: VIT C PO SCH (20:30)
[2021-05-17] MEDS: POTASSIUM CITRATE 15 MEQ PO SCH (20:30)
[2021-05-17] MEDS ORDERED: HOME MED 1 EA UNK (Lovastatin [Lovastatin] 20 MG Tablet) PO SCH (21:00)
[2021-05-17] MEDS: METOPROLOL TAR 25 MG TAB PO SCH (21:00)
[2021-05-17 22:31] LABS: Urine Appearance TURBID (Clear); Urine Bilirubin NEGATIVE (Negative); Urine Blood 2+ (Negative); Urine Color YELLOW (Yellow); Urine Glucose NEGATIVE (Negative); Urine Protein NEGATIVE (Negative); Urine Specific Gravity <=1.005 (1.005-1.030); Urine Urobilinogen 0.2 mg/dL (0.2-1.0); Urine pH 6.5 (5.0-7.0)
[2021-05-17 22:50] LABS: Urine Microscopic Reflex ORDER UMIC
[2021-05-17 22:59] LABS: Urine Bacteria LOADED /HPF (<20); Urine RBC >50 /HPF (NONE SEEN)
[2021-05-17 23:00] LABS: Urine Mucus 2+ /HPF (NONE SEEN)
[2021-05-18 05:50] LABS: Absolute Lymphocytes (CBC) 1.4 K/uL (0.7-4.9); Hematocrit 31.7 % (36.0-45.0); Lymphocytes % 19.2 % (15.3-44.8); MPV 9.1 fL (7.6-11.3); RBC Red Blood Cell Count 3.57 M/uL (3.86-4.86)
[2021-05-18 06:18] LABS: AST/SGOT 7 U/L (15-37); Albumin 2.6 g/dL (3.4-5.0); Alkaline Phosphatase 50 U/L (45-117); BUN Blood Urea Nitrogen 12 mg/dL (7-18); Bicarbonate 27 mmol/L (21-32); Bilirubin Total 0.3 mg/dL (0.2-1.0); Glucose Level 105 mg/dL (74-106); Potassium 3.7 mmol/L (3.5-5.1); Protein, Total 5.9 g/dL (6.4-8.2); Sodium Level 143 mmol/L (136-145)
[2021-05-18 06:20] LABS: ALT/SGPT < 10 U/L (12-78)
[2021-05-18] MEDS: DULERA 200/5 (MOMETASONE/FORMOTEROL) INHALER IH SCH ×2 (08:17→21:12)
[2021-05-18] MEDS: NYSTATIN PWDR 100000 UNIT/GM TOP SCH (08:17)
[2021-05-18] MEDS: FOLIC ACID 1 MG TABLET PO SCH (08:18)
[2021-05-18] MEDS: LACTOBACILLUS/ACIDOPHILUS TAB PO SCH ×2 (08:18→21:12)
[2021-05-18] MEDS: OXYBUTYNIN CHLORIDE 5 MG TAB PO SCH ×2 (08:20→21:13)
[2021-05-18] MEDS: FUROSEMIDE 40 MG TABLET PO SCH (08:20)
[2021-05-18] MEDS: METOPROLOL TAR 25 MG TAB PO SCH ×2 (08:21→21:00)
[2021-05-18] MEDS: VIT C PO SCH ×2 (08:29→21:19)
[2021-05-18] MEDS: CRANBERRY FRUIT EXTRACT PO SCH ×2 (08:29→21:19)
[2021-05-18] MEDS: POTASSIUM CITRATE 15 MEQ PO SCH ×2 (08:31→21:00)
[2021-05-18] MEDS: BENZONATATE 100 MG CAP PO PRN ×2 (08:32→21:16)
[2021-05-18] MEDS: ENOXAPARIN 40 MG/0.4 ML SQ SCH (08:47)
[2021-05-18] MEDS ORDERED: levoFLOXacin 750 MG TAB PO SCH (09:00)
--- NOTE | 2021-05-18 11:48 | P.PN ---
Subjective Date of Service: 05/18/21 Primary Care Provider: Brenda Chief Complaint: UTI requiring PICC Patient seen and examined at bedside, no acute events over past 24 hours Review of Systems 10-point ROS is otherwise unremarkable Physical Examination - Vital Signs Temperature: 97.5 F Blood Pressure: 102/53 Pulse: 65 Respirations: 16 Pulse Ox (%): 93 - Studies Laboratory Last Values WBC 7.30 K/uL (4.3-10.9) 05/16/21 17:42 RBC 3.83 M/uL (3.86-4.86) L 05/16/21 17:42 Hgb 11.4 g/dL (12.0-15.0) L 05/16/21 17:42 Hct 33.7 % (36.0-45.0) L 05/16/21 17:42 MCV 87.9 fL (80-100) 05/16/21 17:42 MCH 29.8 pg (27.0-35.0) 05/16/21 17:42 MCHC 33.9 g/dL (32.0-36.0) 05/16/21 17:42 RDW 15.8 % (12.1-15.2) H 05/16/21 17:42 Plt Count 239 K/uL (152-406) 05/16/21 17:42 MPV 8.8 fL (7.6-11.3) 05/16/21 17:42 Neutrophils % 73.4 % (41.7-73.7) 05/16/21 17:42 Lymphocytes % 15.1 % (15.3-44.8) L 05/16/21 17:42 Monocytes % 6.9 % (3.3-12.3) 05/16/21 17:42 Eosinophils % 4.0 % (0-4.4) 05/16/21 17:42 Basophils % 0.6 % (0-1.3) 05/16/21 17:42 Absolute Neutrophils 5.3 K/uL (1.8-8.0) 05/16/21 17:42 Absolute Lymphocytes 1.1 K/uL (0.7-4.9) 05/16/21 17:42 Absolute Monocytes 0.5 K/uL (0.1-1.3) 05/16/21 17:42 Absolute Eosinophils 0.3 K/uL (0-0.5) 05/16/21 17:42 Absolute Basophils 0.0 K/uL (0-0.5) 05/16/21 17:42 PT 11.6 SECONDS (9.5-12.5) 05/16/21 17:42 INR 1.05 05/16/21 17:42 Sodium 141 mmol/L (136-145) 05/16/21 17:42 Potassium 3.8 mmol/L (3.5-5.1) 05/16/21 17:42 Chloride 109 mmol/L (98-107) H 05/16/21 17:42 Carbon Dioxide 28 mmol/L (21-32) 05/16/21 17:42 BUN 9 mg/dL (7-18) 05/16/21 17:42 Creatinine 0.83 mg/dL (0.55-1.3) 05/16/21 17:42 Estimated GFR 68 mL/min (=/>90) L 05/16/21 17:42 Glucose 100 mg/dL (74-106) 05/16/21 17:42 Lactic Acid 0.8 mmol/L (0.4-2.0) 05/16/21 17:44 Calcium 8.5 mg/dL (8.5-10.1) 05/16/21 17:42 Magnesium 2.1 mg/dL (1.8-2.4) 05/16/21 17:42 Total Bilirubin 0.4 mg/dL (0.2-1.0) 05/16/21 17:42 Direct Bilirubin 0.1 mg/dL (0-0.2) 05/16/21 17:42 AST 9 U/L (15-37) L 05/16/21 17:42 ALT 11 U/L (12-78) L 05/16/21 17:42 Alkaline Phosphatase 61 U/L (45-117) 05/16/21 17:42 Troponin I High Sens 5.20 pg/mL (<58.9) 05/16/21 17:42 NT-Pro-B Natriuret Pep 435 pg/mL (<125) H 05/16/21 17:42 Serum Total Protein 6.8 g/dL (6.4-8.2) 05/16/21 17:42 Albumin 3.0 g/dL (3.4-5.0) L 05/16/21 17:42 Globulin 3.8 g/dL (2.3-3.5) H 05/16/21 17:42 Albumin/Globulin Ratio 0.8 (1.1-1.8) L 05/16/21 17:42 Lipase 66 U/L (73-393) L 05/16/21 17:42 Procalcitonin < 0.05 ng/mL (<0.050) 05/16/21 17:42 SARS-CoV-2 Rap RNA(RT-PCR) Negative (NEGATIVE) 05/16/21 17:50 Assessment And Plan - Plan Physical Exam: General: Alert, Oriented x3, Obese HEENT: Atraumatic, Normocephalic Neck: Supple, 2+ carotid pulse no bruit Respiratory: Clear to auscultation bilaterally, Normal air movement Cardiovascular: Normal pulses, Regular rate/rhythm Gastrointestinal: Normal bowel sounds, Soft and benign Integumentary: Other (Bilateral lower extremity lymphedema with hyperkeratosis, bilateral posterior thigh deep tissue injuries) Conclusions/Impression: Antibiotics Invanz: 05/18-current Levaquin: Assessment/plan Recurrent complicated urinary tract infections -Urine culture from primary care physician's office obtained on 05/06 grew multidrug-resistant Proteus mirabilis. Of note patient has recurrent UTI secondary to Proteus mirabilis. Patient is likely colonized. We will treat this UTI secondary to subjective fevers. Due to multidrug-resistant nature and patient's many allergies to antibiotics, antibiotic selection is made difficult. Based off susceptibility obtained from PCP, we will try Invanz. Of note patient received a single dose of meropenem in the emergency department and stated she had an adverse reaction. However she states that she has had meropenem in the past without any adverse reactions and would like to give Invanz a try. We will start this medication at a slow infusion rate, have Benadryl on the MAR as needed, and will have a nurse observe the patient for the first 15 minutes of antibiotic infusion. Bilateral lower extremity lymphedema Continue lymphedema wrapping/wound care per wound care team -Medical management per primary team Plan of care discussed with Dr. Hansen Thank you for consultation
[2021-05-18] MEDS ORDERED: DIPHENHYDRAMINE 50 MG/ML VIAL IV SCH (13:00)
--- NOTE | 2021-05-18 13:11 | EKG ---
Test Date: 2021-05-17 Test Time: 18:55:58 [employer]: GABY MEASUREMENT RESULTS: Intervals: Rate: 62 WI: QRSD: 76 QT: 424 QTc: 430 [place]: P: WI: QRS: 0 T: 41 INTERPRETIVE STATEMENTS: Atrial fibrillation Low voltage QRS Cannot rule out Anterior infarct, age undetermined Abnormal ECG Compared to ECG 05/16/2021 17:46:16 Myocardial infarct finding now present Sinus rhythm no longer present Electronically Signed On 05-18-21 13:08:07 [employer] by Mamadou Peña
[2021-05-18] MEDS ORDERED: ERTAPENEM NA 1 GM in NA CHLORIDE 0.9% 100 ML IVPB SCH (13:15)
--- NOTE | 2021-05-18 13:25 | P.PN ---
Subjective Date of Service: 05/18/21 Primary Care Provider: Brenda Chief Complaint: UTI requiring PICC No new complaint. No issues overnight. Patient is eating well. Physical Examination - Vital Signs Temperature: 97.7 F Blood Pressure: 106/52 Pulse: 77 Respirations: 18 Pulse Ox (%): 92 - Physical Exam General: Alert, In no apparent distress HEENT: Mucous membr. moist/pink Neck: JVD not distended Respiratory: Clear to auscultation bilaterally, Normal air movement Cardiovascular: Regular rate/rhythm, Normal S1 S2, Edema (Bilateral legs) Gastrointestinal: Soft and benign, Non-distended, No tenderness Musculoskeletal: Other (Bilateral legs in lymphedema wrap) Neurological: Other (No focal motor deficit) Assessment And Plan - Current Problems (Diagnosis) (1) Catheter-associated urinary tract infection Current Visit: Yes Status: Acute Qualifiers: Indwelling urinary catheter type: cystostomy catheter Encounter type: initial encounter Qualified Code(s): T83.510A - Infection and inflammatory reaction due to cystostomy catheter, initial encounter; N39.0 - Urinary tract infection, site not specified (2) Lymphedema of both lower extremities Onset Date: 12/12/16 Current Visit: Yes Status: Chronic (3) MDRO (multiple drug resistant organisms) resistance Current Visit: Yes Status: Chronic (4) UTI (urinary tract infection) Onset Date: 11/05/17 Current Visit: No Status: Acute Qualifiers: Urinary tract infection type: acute cystitis Hematuria presence: without hematuria Qualified Code(s): N30.00 - Acute cystitis without hematuria (5) Chronic venous hypertension w/ulcer and inflammation involv right side Current Visit: No Status: Chronic - Plan Discussed case with patient's PCP Dr. Gutierrez. Urine culture result retrieved from her PCPs office, noted produce sensitive to cefepime, Zosyn and meropenem, intermediate sensitivity to Levaquin. Per report patient had a fever in her PCPs office. Blood culture done here shows no growth. Urine culture is still pending Patient report my clinic check reactions to meropenem given in the ED 2 days ago. Patient was started on oral Levaquin yesterday. Meropenem is the only antibiotic which the organism is sensitive to that she has not been allergic to. Not sure if the jerking movement is true side effect of the meropenem. Case discussed with infectious disease and pharmacy. Patient will be put on a trial of IV Invanz with Benadryl premedication. PICC line ordered for outpatient IV antibiotics. Continue oral Lasix for lymphedema. Continue other home medications.
--- NOTE | 2021-05-18 19:09 | RAD REPORT ---
EXAM DESCRIPTION: RAD - Chest Single View - 05/18/2021 7:02 pm CLINICAL HISTORY: Device placement PICC line placement IMPRESSION: PICC line with its tip in the superior vena cava / atrial junction
[2021-05-18] MEDS: GABAPENTIN 300 MG CAP PO SCH (21:12)
[2021-05-18] MEDS: ATORVASTATIN 10 MG TAB PO SCH (21:12)
[2021-05-18] MEDS: NA CHLORIDE 0.9% 1,000 ML IV SCH ×2 (21:33→23:44)
[2021-05-18] MEDS: DIPHENHYDRAMINE 50 MG/ML VIAL IV SCH (21:42)
[2021-05-18] MEDS: ERTAPENEM NA 1 GM in NA CHLORIDE 0.9% 100 ML IVPB SCH (22:00)
[2021-05-19 05:55] LABS: Absolute Lymphocytes (CBC) 1.2 K/uL (0.7-4.9); Hematocrit 31.2 % (36.0-45.0); RBC Red Blood Cell Count 3.51 M/uL (3.86-4.86)
[2021-05-19 06:26] LABS: AST/SGOT 8 U/L (15-37); Albumin 2.5 g/dL (3.4-5.0); Alkaline Phosphatase 50 U/L (45-117); BUN Blood Urea Nitrogen 11 mg/dL (7-18); Bicarbonate 29 mmol/L (21-32); Bilirubin Total 0.3 mg/dL (0.2-1.0); Glucose Level 98 mg/dL (74-106); Potassium 3.1 mmol/L (3.5-5.1); Protein, Total 5.9 g/dL (6.4-8.2); Sodium Level 143 mmol/L (136-145)
[2021-05-19 06:32] LABS: ALT/SGPT < 10 U/L (12-78)
[2021-05-19] MEDS: NA CHLORIDE 0.9% 1,000 ML IV SCH ×2 (07:48→19:14)
[2021-05-19] MEDS: CRANBERRY FRUIT EXTRACT PO SCH ×2 (09:00→21:00)
[2021-05-19] MEDS: POTASSIUM CITRATE 15 MEQ PO SCH (09:00)
[2021-05-19] MEDS: METOPROLOL TAR 25 MG TAB PO SCH ×2 (09:00→21:00)
[2021-05-19] MEDS: NYSTATIN PWDR 100000 UNIT/GM TOP SCH ×2 (09:00→23:03)
[2021-05-19] MEDS: VIT C PO SCH ×2 (09:00→21:00)
[2021-05-19] MEDS: FUROSEMIDE 40 MG TABLET PO SCH ×2 (09:17→22:57)
[2021-05-19] MEDS: OXYBUTYNIN CHLORIDE 5 MG TAB PO SCH ×2 (09:17→22:56)
[2021-05-19] MEDS: FOLIC ACID 1 MG TABLET PO SCH (09:18)
[2021-05-19] MEDS: LACTOBACILLUS/ACIDOPHILUS TAB PO SCH ×2 (09:18→22:56)
[2021-05-19] MEDS: DULERA 200/5 (MOMETASONE/FORMOTEROL) INHALER IH SCH ×2 (09:20→23:02)
[2021-05-19] MEDS: ENOXAPARIN 40 MG/0.4 ML SQ SCH (09:24)
[2021-05-19] MEDS: BENZONATATE 100 MG CAP PO PRN ×2 (09:33→23:01)
[2021-05-19] MEDS ORDERED: GABAPENTIN 300 MG CAP PO PRN (12:06)
--- NOTE | 2021-05-19 12:13 | P.PN ---
Subjective Date of Service: 05/19/21 Primary Care Provider: Brenda Chief Complaint: UTI requiring PICC No new complaints No issues overnight. She tolerated the Invanz administration with no adverse event yesterday. Physical Examination - Vital Signs Temperature: 98.2 F Blood Pressure: 99/56 Pulse: 73 Respirations: 20 Pulse Ox (%): 96 Assessment And Plan - Current Problems (Diagnosis) (1) Catheter-associated urinary tract infection Current Visit: Yes Status: Acute Qualifiers: Indwelling urinary catheter type: cystostomy catheter Encounter type: initial encounter Qualified Code(s): T83.510A - Infection and inflammatory reaction due to cystostomy catheter, initial encounter; N39.0 - Urinary tract infection, site not specified (2) Lymphedema of both lower extremities Onset Date: 12/12/16 Current Visit: Yes Status: Chronic (3) MDRO (multiple drug resistant organisms) resistance Current Visit: Yes Status: Chronic (4) UTI (urinary tract infection) Onset Date: 11/05/17 Current Visit: No Status: Acute Qualifiers: Urinary tract infection type: acute cystitis Hematuria presence: without hematuria Qualified Code(s): N30.00 - Acute cystitis without hematuria (5) Chronic venous hypertension w/ulcer and inflammation involv right side Current Visit: No Status: Chronic - Plan Physical Exam General: Alert, In no apparent distress, Obese HEENT: Mucous membr. moist/pink Neck: Supple, JVD not distended Respiratory: Clear to auscultation bilaterally, Normal air movement Cardiovascular: Regular rate/rhythm, Normal S1 S2, Edema (Bilateral legs) Gastrointestinal: Soft and benign, Non-distended, No tenderness Lymphatics: Bilateral lower extremity lymphedema. Bilateral lymphedema wrap Plan: Blood culture done here shows no growth. Urine culture is showing gram-negative will growth. She tolerated Invanz administration yesterday. Continue Invanz. PICC line for outpatient IV antibiotics. PICC line ordered for outpatient IV antibiotics. Continue oral Lasix for lymphedema. Gabapentin for neuropathic pain. Continue other home medications.
[2021-05-19] MEDS: DIPHENHYDRAMINE 50 MG/ML VIAL IV SCH ×2 (12:45→13:07)
[2021-05-19] MEDS: ERTAPENEM NA 1 GM in NA CHLORIDE 0.9% 100 ML IVPB SCH (13:34)
[2021-05-19] MEDS ORDERED: FLEET ENEMA ADULT PR ONE (14:53)
[2021-05-19] MEDS: POTASSIUM 25 MEQ EFFERV TAB PO SCH (15:03)
[2021-05-19] MEDS: ATORVASTATIN 10 MG TAB PO SCH (22:56)
[2021-05-19] MEDS: GABAPENTIN 300 MG CAP PO SCH (22:56)
[2021-05-20] MEDS: NA CHLORIDE 0.9% 1,000 ML IV SCH ×3 (05:38→20:05)
[2021-05-20 05:50] LABS: Potassium 3.1 mmol/L (3.5-5.1)
[2021-05-20] MEDS: LACTOBACILLUS/ACIDOPHILUS TAB PO SCH ×2 (08:39→21:53)
[2021-05-20] MEDS: OXYBUTYNIN CHLORIDE 5 MG TAB PO SCH ×2 (08:39→21:54)
[2021-05-20] MEDS: ENOXAPARIN 40 MG/0.4 ML SQ SCH (08:39)
[2021-05-20] MEDS: FOLIC ACID 1 MG TABLET PO SCH (08:40)
[2021-05-20] MEDS: DULERA 200/5 (MOMETASONE/FORMOTEROL) INHALER IH SCH ×2 (08:40→21:56)
[2021-05-20] MEDS: POTASSIUM 25 MEQ EFFERV TAB PO SCH ×2 (08:40→21:53)
[2021-05-20] MEDS: VIT C PO SCH ×2 (08:43→21:00)
[2021-05-20] MEDS: CRANBERRY FRUIT EXTRACT PO SCH ×2 (08:43→21:00)
[2021-05-20] MEDS: FUROSEMIDE 40 MG TABLET PO SCH ×2 (08:44→21:54)
[2021-05-20] MEDS: METOPROLOL TAR 25 MG TAB PO SCH ×2 (08:45→21:54)
[2021-05-20] MEDS: DIPHENHYDRAMINE 50 MG/ML VIAL IV SCH (12:50)
[2021-05-20] MEDS: ERTAPENEM NA 1 GM in NA CHLORIDE 0.9% 100 ML IVPB SCH (13:34)
--- NOTE | 2021-05-20 16:42 | P.PN ---
Subjective Date of Service: 05/20/21 Primary Care Provider: Brenda Chief Complaint: UTI requiring PICC Patient complaining of constipation No issues overnight. She has been tolerating the Invanz. Physical Examination - Vital Signs Temperature: 97.9 F Blood Pressure: 113/45 Pulse: 65 Respirations: 17 Pulse Ox (%): 90 Assessment And Plan - Current Problems (Diagnosis) (1) Catheter-associated urinary tract infection Current Visit: Yes Status: Acute Qualifiers: Indwelling urinary catheter type: cystostomy catheter Encounter type: initial encounter Qualified Code(s): T83.510A - Infection and inflammatory reaction due to cystostomy catheter, initial encounter; N39.0 - Urinary tract infection, site not specified (2) Lymphedema of both lower extremities Onset Date: 12/12/16 Current Visit: Yes Status: Chronic (3) MDRO (multiple drug resistant organisms) resistance Current Visit: Yes Status: Chronic (4) UTI (urinary tract infection) Onset Date: 11/05/17 Current Visit: No Status: Acute Qualifiers: Urinary tract infection type: acute cystitis Hematuria presence: without hematuria Qualified Code(s): N30.00 - Acute cystitis without hematuria (5) Chronic venous hypertension w/ulcer and inflammation involv right side Current Visit: No Status: Chronic - Plan Physical Exam General: Alert,NAD. Neck: Supple, JVD not distended Respiratory: Clear to auscultation bilaterally, Normal air movement Cardiovascular: Regular rate/rhythm, Normal S1 S2, Edema (Bilateral legs) Gastrointestinal: Soft and benign, Non-distended, No tenderness Lymphatics: Bilateral lower extremity lymphedema. Bilateral lymphedema wrap Plan: Blood culture done here shows no growth. Urine culture is showing gram: Proteus She has been tolerating Invanz. Continue Invanz. PICC line for outpatient IV antibiotics. PICC line ordered for outpatient IV antibiotics. Continue oral Lasix for lymphedema. Gabapentin for neuropathic pain. Continue other home medications. Magnesium citrate, MiraLAX and senna for constipation.
[2021-05-20] MEDS ORDERED: POLYETHYL GLY 3350 17 GM/DOSE PO PRN (17:01)
[2021-05-20] MEDS: SENOSIDES 8.6 MG TAB PO SCH (21:53)
[2021-05-20] MEDS: ATORVASTATIN 10 MG TAB PO SCH (21:54)
[2021-05-20] MEDS: GABAPENTIN 300 MG CAP PO SCH (21:55)
[2021-05-21] MEDS: NA CHLORIDE 0.9% 1,000 ML IV SCH ×5 (01:44→21:50)
[2021-05-21 04:11] LABS: Absolute Lymphocytes (CBC) 1.1 K/uL (0.7-4.9); Hematocrit 31.9 % (36.0-45.0); Lymphocytes % 15.3 % (15.3-44.8); MPV 8.9 fL (7.6-11.3); RBC Red Blood Cell Count 3.66 M/uL (3.86-4.86)
[2021-05-21 04:19] LABS: BUN Blood Urea Nitrogen 10 mg/dL (7-18); Bicarbonate 29 mmol/L (21-32); Glucose Level 91 mg/dL (74-106); Potassium 3.1 mmol/L (3.5-5.1); Sodium Level 144 mmol/L (136-145)
[2021-05-21] MEDS: CRANBERRY FRUIT EXTRACT PO SCH ×2 (09:00→21:00)
[2021-05-21] MEDS: VIT C PO SCH ×2 (09:00→21:00)
[2021-05-21] MEDS: POTASSIUM 25 MEQ EFFERV TAB PO SCH ×2 (09:58→21:48)
[2021-05-21] MEDS: ENOXAPARIN 40 MG/0.4 ML SQ SCH (09:58)
[2021-05-21] MEDS: DULERA 200/5 (MOMETASONE/FORMOTEROL) INHALER IH SCH ×2 (09:58→21:55)
[2021-05-21] MEDS: SENOSIDES 8.6 MG TAB PO SCH ×3 (09:59→21:48)
[2021-05-21] MEDS: FOLIC ACID 1 MG TABLET PO SCH (09:59)
[2021-05-21] MEDS: OXYBUTYNIN CHLORIDE 5 MG TAB PO SCH ×2 (09:59→21:49)
[2021-05-21] MEDS: LACTOBACILLUS/ACIDOPHILUS TAB PO SCH ×2 (09:59→21:48)
[2021-05-21] MEDS: FUROSEMIDE 40 MG TABLET PO SCH ×2 (10:00→21:49)
[2021-05-21] MEDS: METOPROLOL TAR 25 MG TAB PO SCH ×2 (10:01→21:49)
[2021-05-21] MEDS: NYSTATIN PWDR 100000 UNIT/GM TOP SCH (10:02)
--- NOTE | 2021-05-21 11:37 | P.PN ---
Subjective Date of Service: 05/21/21 Primary Care Provider: Brenda Chief Complaint: UTI requiring PICC Patient seen and examined at bedside, tolerating IV antibiotics well. Review of Systems 10-point ROS is otherwise unremarkable Physical Examination - Vital Signs Temperature: 97.3 F Blood Pressure: 117/56 Pulse: 53 Respirations: 18 Pulse Ox (%): 94 - Studies Laboratory Last Values WBC 7.30 K/uL (4.3-10.9) 05/16/21 17:42 RBC 3.83 M/uL (3.86-4.86) L 05/16/21 17:42 Hgb 11.4 g/dL (12.0-15.0) L 05/16/21 17:42 Hct 33.7 % (36.0-45.0) L 05/16/21 17:42 MCV 87.9 fL (80-100) 05/16/21 17:42 MCH 29.8 pg (27.0-35.0) 05/16/21 17:42 MCHC 33.9 g/dL (32.0-36.0) 05/16/21 17:42 RDW 15.8 % (12.1-15.2) H 05/16/21 17:42 Plt Count 239 K/uL (152-406) 05/16/21 17:42 MPV 8.8 fL (7.6-11.3) 05/16/21 17:42 Neutrophils % 73.4 % (41.7-73.7) 05/16/21 17:42 Lymphocytes % 15.1 % (15.3-44.8) L 05/16/21 17:42 Monocytes % 6.9 % (3.3-12.3) 05/16/21 17:42 Eosinophils % 4.0 % (0-4.4) 05/16/21 17:42 Basophils % 0.6 % (0-1.3) 05/16/21 17:42 Absolute Neutrophils 5.3 K/uL (1.8-8.0) 05/16/21 17:42 Absolute Lymphocytes 1.1 K/uL (0.7-4.9) 05/16/21 17:42 Absolute Monocytes 0.5 K/uL (0.1-1.3) 05/16/21 17:42 Absolute Eosinophils 0.3 K/uL (0-0.5) 05/16/21 17:42 Absolute Basophils 0.0 K/uL (0-0.5) 05/16/21 17:42 PT 11.6 SECONDS (9.5-12.5) 05/16/21 17:42 INR 1.05 05/16/21 17:42 Sodium 141 mmol/L (136-145) 05/16/21 17:42 Potassium 3.8 mmol/L (3.5-5.1) 05/16/21 17:42 Chloride 109 mmol/L (98-107) H 05/16/21 17:42 Carbon Dioxide 28 mmol/L (21-32) 05/16/21 17:42 BUN 9 mg/dL (7-18) 05/16/21 17:42 Creatinine 0.83 mg/dL (0.55-1.3) 05/16/21 17:42 Estimated GFR 68 mL/min (=/>90) L 05/16/21 17:42 Glucose 100 mg/dL (74-106) 05/16/21 17:42 Lactic Acid 0.8 mmol/L (0.4-2.0) 05/16/21 17:44 Calcium 8.5 mg/dL (8.5-10.1) 05/16/21 17:42 Magnesium 2.1 mg/dL (1.8-2.4) 05/16/21 17:42 Total Bilirubin 0.4 mg/dL (0.2-1.0) 05/16/21 17:42 Direct Bilirubin 0.1 mg/dL (0-0.2) 05/16/21 17:42 AST 9 U/L (15-37) L 05/16/21 17:42 ALT 11 U/L (12-78) L 05/16/21 17:42 Alkaline Phosphatase 61 U/L (45-117) 05/16/21 17:42 Troponin I High Sens 5.20 pg/mL (<58.9) 05/16/21 17:42 NT-Pro-B Natriuret Pep 435 pg/mL (<125) H 05/16/21 17:42 Serum Total Protein 6.8 g/dL (6.4-8.2) 05/16/21 17:42 Albumin 3.0 g/dL (3.4-5.0) L 05/16/21 17:42 Globulin 3.8 g/dL (2.3-3.5) H 05/16/21 17:42 Albumin/Globulin Ratio 0.8 (1.1-1.8) L 05/16/21 17:42 Lipase 66 U/L (73-393) L 05/16/21 17:42 Procalcitonin < 0.05 ng/mL (<0.050) 05/16/21 17:42 SARS-CoV-2 Rap RNA(RT-PCR) Negative (NEGATIVE) 05/16/21 17:50 Assessment And Plan - Plan Physical Exam: General: Alert, Oriented x3, Obese HEENT: Atraumatic, Normocephalic Neck: Supple, 2+ carotid pulse no bruit Respiratory: Clear to auscultation bilaterally, Normal air movement Cardiovascular: Normal pulses, Regular rate/rhythm Gastrointestinal: Normal bowel sounds, Soft and benign Integumentary: Other (Bilateral lower extremity lymphedema with hyperkeratosis, bilateral posterior thigh deep tissue injuries) Conclusions/Impression: Antibiotics Invanz: 05/18-current Levaquin: Assessment/plan Recurrent complicated urinary tract infections -Urine culture from primary care physician's office obtained on 05/06 grew multidrug-resistant Proteus mirabilis. Urine culture obtained at our facility also growing multidrug-resistant Proteus. Of note patient has recurrent UTI secondary to Proteus mirabilis. Patient is likely colonized. We will treat this UTI secondary to subjective fevers. Patient placed on Invanz, tolerating antibiotic well. Continue for 7 days. Bilateral lower extremity lymphedema Continue lymphedema wrapping/wound care per wound care team -Medical management per primary team Plan of care discussed with Dr. Hansen Thank you for consultation
[2021-05-21] MEDS: DIPHENHYDRAMINE 50 MG/ML VIAL IV SCH (13:45)
[2021-05-21] MEDS: ERTAPENEM NA 1 GM in NA CHLORIDE 0.9% 100 ML IVPB SCH (14:09)
--- NOTE | 2021-05-21 14:29 | P.PN ---
Subjective Date of Service: 05/21/21 Primary Care Provider: Brenda Chief Complaint: UTI requiring PICC No new complaint except that she is still constipated and has not had a bowel movement for about 5 days. She has been tolerating the Invanz. Physical Examination - Vital Signs Temperature: 97.5 F Blood Pressure: 127/71 Pulse: 93 Respirations: 16 Pulse Ox (%): 92 Assessment And Plan - Current Problems (Diagnosis) (1) Catheter-associated urinary tract infection Current Visit: Yes Status: Acute Qualifiers: Indwelling urinary catheter type: cystostomy catheter Encounter type: initial encounter Qualified Code(s): T83.510A - Infection and inflammatory reaction due to cystostomy catheter, initial encounter; N39.0 - Urinary tract infection, site not specified (2) Lymphedema of both lower extremities Onset Date: 12/12/16 Current Visit: Yes Status: Chronic (3) MDRO (multiple drug resistant organisms) resistance Current Visit: Yes Status: Chronic (4) UTI (urinary tract infection) Onset Date: 11/05/17 Current Visit: No Status: Acute Qualifiers: Urinary tract infection type: acute cystitis Hematuria presence: without hematuria Qualified Code(s): N30.00 - Acute cystitis without hematuria (5) Chronic venous hypertension w/ulcer and inflammation involv right side Current Visit: No Status: Chronic - Plan Physical Exam General: Alert,NAD. Neck: Supple, JVD not distended Respiratory: Clear to auscultation bilaterally, Normal air movement Cardiovascular: Regular rate/rhythm, Normal S1 S2, Edema (Bilateral legs) Gastrointestinal: Soft and benign, Non-distended, No tenderness Lymphatics: Bilateral lower extremity lymphedema. Bilateral lymphedema wrap Plan: Blood culture done here shows no growth. Urine culture: Proteus She has been tolerating Invanz. Continue Invanz. Patient to complete 7 days of treatment. PICC line ordered for outpatient IV antibiotics. Continue oral Lasix for lymphedema. Gabapentin for neuropathic pain. Continue other home medications. Magnesium citrate x1 dose. MiraLAX and senna for constipation.
[2021-05-21] MEDS ORDERED: MAGNESIUM CITRATE 300 ML BOT PO SCH (15:00)
[2021-05-21] MEDS ORDERED: POTASSIUM 25 MEQ EFFERV TAB PO ONE ×2 (16:00→22:59)
[2021-05-21] MEDS: GABAPENTIN 300 MG CAP PO SCH (21:49)
[2021-05-21] MEDS: ATORVASTATIN 10 MG TAB PO SCH (21:49)
[2021-05-22 04:51] LABS: Potassium 3.4 mmol/L (3.5-5.1)
[2021-05-22] MEDS: NA CHLORIDE 0.9% 1,000 ML IV SCH ×2 (07:44→19:43)
[2021-05-22] MEDS: METOPROLOL TAR 25 MG TAB PO SCH ×2 (09:00→21:00)
[2021-05-22] MEDS ORDERED: POTASSIUM 25 MEQ EFFERV TAB PO ONE ×2 (09:00→21:48)
[2021-05-22] MEDS: CRANBERRY FRUIT EXTRACT PO SCH ×2 (09:00→21:00)
[2021-05-22] MEDS: VIT C PO SCH ×2 (09:00→21:00)
[2021-05-22] MEDS ORDERED: DIPHENHYDRAMINE 50 MG/ML VIAL IV SCH ×2 (09:45→19:45)
[2021-05-22] MEDS: OXYBUTYNIN CHLORIDE 5 MG TAB PO SCH ×2 (10:00→22:09)
[2021-05-22] MEDS: LACTOBACILLUS/ACIDOPHILUS TAB PO SCH ×2 (10:00→21:58)
[2021-05-22] MEDS: POTASSIUM 25 MEQ EFFERV TAB PO SCH ×2 (10:00→21:59)
[2021-05-22] MEDS: SENOSIDES 8.6 MG TAB PO SCH ×2 (10:00→21:58)
[2021-05-22] MEDS: FOLIC ACID 1 MG TABLET PO SCH (10:00)
[2021-05-22] MEDS: NYSTATIN PWDR 100000 UNIT/GM TOP SCH (10:00)
[2021-05-22] MEDS ORDERED: ERTAPENEM NA 1 GM in NA CHLORIDE 0.9% 100 ML IVPB SCH ×2 (10:00→20:00)
[2021-05-22] MEDS: FUROSEMIDE 40 MG TABLET PO SCH ×2 (10:17→21:00)
[2021-05-22] MEDS: DULERA 200/5 (MOMETASONE/FORMOTEROL) INHALER IH SCH ×2 (10:20→22:00)
[2021-05-22] MEDS: ENOXAPARIN 40 MG/0.4 ML SQ SCH (10:20)
--- NOTE | 2021-05-22 11:35 | P.PN ---
Subjective Date of Service: 05/22/21 Primary Care Provider: Brenda Chief Complaint: UTI requiring PICC Subjective: Improving Physical Examination - Vital Signs Temperature: 97.4 F Blood Pressure: 112/56 Pulse: 55 Respirations: 16 Pulse Ox (%): 91 - Physical Exam General: Alert, Obese HEENT: Atraumatic, Normocephalic Respiratory: Clear to auscultation bilaterally, Normal air movement Cardiovascular: Regular rate/rhythm, Normal S1 S2 Musculoskeletal: Other (Both lower extr wrapped) Neurological: Normal speech, Normal affect - Studies Microbiology Data (last 24 hrs): 05/16/21 17:50 Blood - Blood Aerobic Blood Culture - Final No growth in 5 days. 05/16/21 17:50 Blood - Blood Anaerobic Blood Culture - Final No growth in 5 days. 05/16/21 17:30 Blood - Blood Aerobic Blood Culture - Final No growth in 5 days. 05/16/21 17:30 Blood - Blood Anaerobic Blood Culture - Final No growth in 5 days. Assessment And Plan - Current Problems (Diagnosis) (1) Catheter-associated urinary tract infection Current Visit: Yes Status: Acute Qualifiers: Indwelling urinary catheter type: cystostomy catheter Encounter type: initial encounter Qualified Code(s): T83.510A - Infection and inflammatory reaction due to cystostomy catheter, initial encounter; N39.0 - Urinary tract infection, site not specified (2) Fibromyalgia Onset Date: 05/26/14 Current Visit: Yes Status: Chronic (3) Lymphedema of both lower extremities Onset Date: 12/12/16 Current Visit: Yes Status: Chronic (4) MDRO (multiple drug resistant organisms) resistance Current Visit: Yes Status: Chronic (5) Morbid obesity Current Visit: Yes Status: Chronic (6) Peripheral neuropathy Onset Date: 08/21/15 Current Visit: Yes Status: Chronic Qualifiers: Peripheral neuropathy type: polyneuropathy, unspecified Qualified Code(s): G62.9 - Polyneuropathy, unspecified (7) Acute kidney failure Onset Date: 06/08/14 Current Visit: No Status: Acute (8) Anemia Current Visit: No Status: Acute Qualifiers: Anemia type: iron deficiency Iron deficiency anemia type: chronic blood loss Qualified Code(s): D50.0 - Iron deficiency anemia secondary to blood loss (chronic) (9) COPD (chronic obstructive pulmonary disease) Current Visit: No Status: Acute Qualifiers: COPD type: COPD with acute exacerbation Qualified Code(s): J44.1 - Chronic obstructive pulmonary disease with (acute) exacerbation (10) Cellulitis of both lower extremities Onset Date: 08/21/15 Current Visit: No Status: Acute (11) Debility Current Visit: No Status: Acute (12) Lymphedema Onset Date: 05/25/14 Current Visit: No Status: Chronic Physician Review Additional Text: Assessment Patient is 66-year-old female morbid obesity, lymphedema requiring wound care and an indwelling suprapubic catheter. She is being treated with ESBL Proteus UTI. Doing well on ertapenem, day 5 of 7. ESBL Proteus UTI Morbid obesity PLAN: Continue Ertapenem for 2 more days Wound care Pain control Lovenox for DVT ppx Patient can be discharged once accepted
--- NOTE | 2021-05-22 13:20 | P.PN ---
Subjective Date of Service: 05/22/21 Primary Care Provider: Brenda Chief Complaint: UTI requiring PICC Patient seen and examined at bedside, no acute events. Review of Systems 10-point ROS is otherwise unremarkable Physical Examination - Vital Signs Temperature: 97.5 F Blood Pressure: 102/53 Pulse: 79 Respirations: 18 Pulse Ox (%): 93 - Studies Active Medications Acetaminophen (Acetaminophen 500 Mg Tab) 500 mg PO Q4HP PRN PRN Reason: TEMP > 100' F Hydrocodone Bitart/Acetaminophen (Hydrocodone/Apap 7.5/325 Mg Tab) 1 tab PO BID PRN PRN Reason: PAIN Last Admin: 05/17/21 13:06 Dose: 1 tab Documented by: Albuterol Sulfate (Albuterol 2.5 Mg/3 Ml Neb [place]) 2.5 mg NEB [id number] PRN PRN Reason: SHORTNESS OF BREATH Atorvastatin Calcium (Atorvastatin 10 Mg Tab) 10 mg PO BEDTIME RAI Last Admin: 05/21/21 21:49 Dose: 10 mg Documented by: Benzonatate (Benzonatate 100 Mg Cap) 100 mg PO TIDP PRN PRN Reason: COUGH Last Admin: 05/19/21 23:01 Dose: 100 mg Documented by: Diphenhydramine HCl (Diphenhydramine 50 Mg/Ml Vial) 25 mg IV Q24H RAI Stop: 05/24/21 09:46 Last Admin: 05/22/21 11:14 Dose: 25 mg Documented by: Enoxaparin Sodium (Enoxaparin 40 Mg/0.4 Ml) 40 mg SQ DAILY RAI Last Admin: 05/22/21 10:20 Dose: 40 mg Documented by: Folic Acid (Folic Acid 1 Mg Tablet) 1 mg PO DAILY RAI Last Admin: 05/22/21 10:00 Dose: 1 mg Documented by: Furosemide (Furosemide 40 Mg Tablet) 40 mg PO BID RAI Last Admin: 05/22/21 10:17 Dose: 40 mg Documented by: Gabapentin (Gabapentin 300 Mg Cap) 300 mg PO BEDTIME RAI Last Admin: 05/21/21 21:49 Dose: 300 mg Documented by: Gabapentin (Gabapentin 300 Mg Cap) 300 mg PO DAILY PRN PRN Reason: Increase pain and tingling Last Admin: 05/19/21 13:07 Dose: 300 mg Documented by: Home Med (Cranberry Fruit Extract/Vit C [Azo Cranberry Softgel]) 1 each PO BID [facility] Last Admin: 05/22/21 09:00 Dose: Not Given Documented by: Sodium Chloride (Ns 1000 Ml Ivbag) 1,000 mls @ 100 mls/hr IV .Q10H [facility] Last Admin: 05/21/21 21:50 Dose: 1,000 mls Documented by: Ertapenem 1 gm/ Sodium (Chloride) 100 mls @ 50 mls/hr IVPB Q24H [facility] Last Admin: 05/22/21 11:15 Dose: 100 mls Documented by: Lactobacillus Acidoph/Bulgaricus (Lactobacillus/Acidophilus Tab) 1 tab PO BID [facility] Last Admin: 05/22/21 10:00 Dose: 1 tab Documented by: Lorazepam (Lorazepam 2 Mg/Ml Vial) 1 mg IV Q4H PRN PRN Reason: ANXIETY Metoprolol Tartrate (Metoprolol Tar 25 Mg Tab) 25 mg PO BID [facility] Last Admin: 05/22/21 09:00 Dose: Not Given Documented by: Morphine Sulfate (Morphine 2 Mg/Ml Syr) 2 mg IV Q6H PRN PRN Reason: Pain scale 5-7 (Moderate) Last Admin: 05/17/21 05:37 Dose: 2 mg Documented by: Nystatin (Nystatin Pwdr [id number] Unit/Gm) 1 appl TOP DAILY [facility] Last Admin: 05/22/21 10:00 Dose: 1 appl Documented by: Ondansetron HCl (Ondansetron 4 Mg/2 Ml Vial) 4 mg IV Q6HP PRN PRN Reason: NAUSEA / VOMITING Oxybutynin Chloride (Oxybutynin Chloride 5 Mg Tab) 5 mg PO BID [facility] Last Admin: 05/22/21 10:00 Dose: 5 mg Documented by: Polyethylene Glycol (Polyethyl Gly 3350 17 Gm/Dose) 17 gm PO DAILY PRN PRN Reason: CONSTIPATION Stop: 05/23/21 17:02 Potassium Bicarbonate (Potassium 25 Meq Efferv Tab) 25 meq PO BID [facility] Last Admin: 05/22/21 10:00 Dose: 25 meq Documented by: Senna (Senosides 8.6 Mg Tab) 17.2 mg PO BID [facility] Last Admin: 05/22/21 10:00 Dose: 17.2 mg Documented by: Sodium Chloride (Flush Normal Saline 10 Ml) 10 ml IV BID [facility] Last Admin: 05/22/21 09:00 Dose: 10 ml Documented by: Microbiology Data (last 24 hrs): 05/16/21 17:50 Blood - Blood Aerobic Blood Culture - Final No growth in 5 days. 05/16/21 17:50 Blood - Blood Anaerobic Blood Culture - Final No growth in 5 days. 05/16/21 17:30 Blood - Blood Aerobic Blood Culture - Final No growth in 5 days. 05/16/21 17:30 Blood - Blood Anaerobic Blood Culture - Final No growth in 5 days. Assessment And Plan - Plan Physical Exam: General: Alert, Oriented x3, Obese HEENT: Atraumatic, Normocephalic Neck: Supple, 2+ carotid pulse no bruit Respiratory: Clear to auscultation bilaterally, Normal air movement Cardiovascular: Normal pulses, Regular rate/rhythm Gastrointestinal: Normal bowel sounds, Soft and benign Integumentary: Other (Bilateral lower extremity lymphedema with hyperkeratosis, bilateral posterior thigh deep tissue injuries) Conclusions/Impression: Antibiotics Invanz: 05/18-current Levaquin: Assessment/plan Recurrent complicated urinary tract infections -Urine culture from primary care physician's office obtained on 05/06 grew multidrug-resistant Proteus mirabilis. Urine culture obtained at our facility also growing multidrug-resistant Proteus. Of note patient has recurrent UTI secondary to Proteus mirabilis. Patient is likely colonized. We will treat this UTI secondary to subjective fevers. Patient placed on Invanz, tolerating antibiotic well. Continue for 7 days. Bilateral lower extremity lymphedema Continue lymphedema wrapping/wound care per wound care team -Medical management per primary team Plan of care discussed with Dr. Hansen Thank you for consultation
[2021-05-22] MEDS: MORPHINE 2 MG/ML SYR IV PRN (15:12)
[2021-05-22] MEDS ORDERED: DIPHENHYDRAMINE 50 MG/ML VIAL IV ONE (20:12)
[2021-05-22] MEDS: ATORVASTATIN 10 MG TAB PO SCH (21:58)
[2021-05-22] MEDS: GABAPENTIN 300 MG CAP PO SCH (21:58)
[2021-05-23] MEDS: NA CHLORIDE 0.9% 1,000 ML IV SCH ×3 (04:31→23:44)
[2021-05-23] MEDS: VIT C PO SCH ×2 (09:00→21:00)
[2021-05-23] MEDS: CRANBERRY FRUIT EXTRACT PO SCH ×2 (09:00→21:00)
[2021-05-23] MEDS: METOPROLOL TAR 25 MG TAB PO SCH (09:00)
[2021-05-23] MEDS: FUROSEMIDE 40 MG TABLET PO SCH ×3 (09:00→17:00)
[2021-05-23] MEDS: POTASSIUM 25 MEQ EFFERV TAB PO SCH ×2 (09:00→21:41)
--- NOTE | 2021-05-23 09:05 | P.PN ---
Subjective Date of Service: 05/23/21 Primary Care Provider: Brenda Chief Complaint: UTI requiring PICC Subjective: Improving (Mildly hypotensive overnight) Physical Examination - Vital Signs Temperature: 97.7 F Blood Pressure: 100/50 Pulse: 59 Respirations: 18 Pulse Ox (%): 98 - Physical Exam General: In no apparent distress, Cooperative, Obese HEENT: Atraumatic, Normocephalic Respiratory: Normal air movement Musculoskeletal: Other (Both feet are wrapped) Neurological: Normal speech, Normal affect Assessment And Plan - Current Problems (Diagnosis) (1) Catheter-associated urinary tract infection Current Visit: Yes Status: Acute Qualifiers: Indwelling urinary catheter type: cystostomy catheter Encounter type: initial encounter Qualified Code(s): T83.510A - Infection and inflammatory reaction due to cystostomy catheter, initial encounter; N39.0 - Urinary tract infection, site not specified (2) Fibromyalgia Onset Date: 05/26/14 Current Visit: Yes Status: Chronic (3) Lymphedema of both lower extremities Onset Date: 12/12/16 Current Visit: Yes Status: Chronic (4) MDRO (multiple drug resistant organisms) resistance Current Visit: Yes Status: Chronic (5) Morbid obesity Current Visit: Yes Status: Chronic (6) Peripheral neuropathy Onset Date: 08/21/15 Current Visit: Yes Status: Chronic Qualifiers: Peripheral neuropathy type: polyneuropathy, unspecified Qualified Code(s): G62.9 - Polyneuropathy, unspecified (7) Acute kidney failure Onset Date: 06/08/14 Current Visit: No Status: Acute (8) Anemia Current Visit: No Status: Acute Qualifiers: Anemia type: iron deficiency Iron deficiency anemia type: chronic blood loss Qualified Code(s): D50.0 - Iron deficiency anemia secondary to blood loss (chronic) (9) COPD (chronic obstructive pulmonary disease) Current Visit: No Status: Acute Qualifiers: COPD type: COPD with acute exacerbation Qualified Code(s): J44.1 - Chronic obstructive pulmonary disease with (acute) exacerbation (10) Cellulitis of both lower extremities Onset Date: 08/21/15 Current Visit: No Status: Acute (11) Debility Current Visit: No Status: Acute (12) Lymphedema Onset Date: 05/25/14 Current Visit: No Status: Chronic Physician Review Additional Text: Assessment Patient is 66-year-old female morbid obesity, lymphedema requiring wound care and an indwelling suprapubic catheter. She is being treated with ESBL Proteus UTI. Doing well on ertapenem, day 5 of 7. ESBL Proteus UTI Morbid obesity Hypotension Suprapubic catheter Bilateral lymphedema PLAN: Last day of Ertapenem tomorrow Hold lasix and metoprolol Wound care Pain control Lovenox for DVT ppx
[2021-05-23] MEDS: DULERA 200/5 (MOMETASONE/FORMOTEROL) INHALER IH SCH ×2 (09:57→21:38)
[2021-05-23] MEDS: NYSTATIN PWDR 100000 UNIT/GM TOP SCH (09:57)
[2021-05-23] MEDS: LACTOBACILLUS/ACIDOPHILUS TAB PO SCH ×2 (09:58→21:40)
[2021-05-23] MEDS: SENOSIDES 8.6 MG TAB PO SCH ×2 (09:58→21:00)
[2021-05-23] MEDS: OXYBUTYNIN CHLORIDE 5 MG TAB PO SCH ×2 (09:58→21:39)
[2021-05-23] MEDS: FOLIC ACID 1 MG TABLET PO SCH (09:58)
[2021-05-23] MEDS: POTASSIUM 25 MEQ EFFERV TAB PO ONE (09:59)
[2021-05-23] MEDS: ENOXAPARIN 40 MG/0.4 ML SQ SCH (10:00)
[2021-05-23] MEDS: BENZONATATE 100 MG CAP PO PRN (10:04)
--- NOTE | 2021-05-23 11:45 | P.PN ---
Subjective Date of Service: 05/23/21 Primary Care Provider: Brenda Chief Complaint: UTI requiring PICC Patient seen and examined at bedside, tolerating antibiotics well with no nausea/vomiting/diarrhea. Review of Systems 10-point ROS is otherwise unremarkable Physical Examination - Vital Signs Temperature: 97.7 F Blood Pressure: 115/54 Pulse: 59 Respirations: 18 Pulse Ox (%): 98 - Studies Laboratory Last Values WBC 7.30 K/uL (4.3-10.9) 05/16/21 17:42 RBC 3.83 M/uL (3.86-4.86) L 05/16/21 17:42 Hgb 11.4 g/dL (12.0-15.0) L 05/16/21 17:42 Hct 33.7 % (36.0-45.0) L 05/16/21 17:42 MCV 87.9 fL (80-100) 05/16/21 17:42 MCH 29.8 pg (27.0-35.0) 05/16/21 17:42 MCHC 33.9 g/dL (32.0-36.0) 05/16/21 17:42 RDW 15.8 % (12.1-15.2) H 05/16/21 17:42 Plt Count 239 K/uL (152-406) 05/16/21 17:42 MPV 8.8 fL (7.6-11.3) 05/16/21 17:42 Neutrophils % 73.4 % (41.7-73.7) 05/16/21 17:42 Lymphocytes % 15.1 % (15.3-44.8) L 05/16/21 17:42 Monocytes % 6.9 % (3.3-12.3) 05/16/21 17:42 Eosinophils % 4.0 % (0-4.4) 05/16/21 17:42 Basophils % 0.6 % (0-1.3) 05/16/21 17:42 Absolute Neutrophils 5.3 K/uL (1.8-8.0) 05/16/21 17:42 Absolute Lymphocytes 1.1 K/uL (0.7-4.9) 05/16/21 17:42 Absolute Monocytes 0.5 K/uL (0.1-1.3) 05/16/21 17:42 Absolute Eosinophils 0.3 K/uL (0-0.5) 05/16/21 17:42 Absolute Basophils 0.0 K/uL (0-0.5) 05/16/21 17:42 PT 11.6 SECONDS (9.5-12.5) 05/16/21 17:42 INR 1.05 05/16/21 17:42 Sodium 141 mmol/L (136-145) 05/16/21 17:42 Potassium 3.8 mmol/L (3.5-5.1) 05/16/21 17:42 Chloride 109 mmol/L (98-107) H 05/16/21 17:42 Carbon Dioxide 28 mmol/L (21-32) 05/16/21 17:42 BUN 9 mg/dL (7-18) 05/16/21 17:42 Creatinine 0.83 mg/dL (0.55-1.3) 05/16/21 17:42 Estimated GFR 68 mL/min (=/>90) L 05/16/21 17:42 Glucose 100 mg/dL (74-106) 05/16/21 17:42 Lactic Acid 0.8 mmol/L (0.4-2.0) 05/16/21 17:44 Calcium 8.5 mg/dL (8.5-10.1) 05/16/21 17:42 Magnesium 2.1 mg/dL (1.8-2.4) 05/16/21 17:42 Total Bilirubin 0.4 mg/dL (0.2-1.0) 05/16/21 17:42 Direct Bilirubin 0.1 mg/dL (0-0.2) 05/16/21 17:42 AST 9 U/L (15-37) L 05/16/21 17:42 ALT 11 U/L (12-78) L 05/16/21 17:42 Alkaline Phosphatase 61 U/L (45-117) 05/16/21 17:42 Troponin I High Sens 5.20 pg/mL (<58.9) 05/16/21 17:42 NT-Pro-B Natriuret Pep 435 pg/mL (<125) H 05/16/21 17:42 Serum Total Protein 6.8 g/dL (6.4-8.2) 05/16/21 17:42 Albumin 3.0 g/dL (3.4-5.0) L 05/16/21 17:42 Globulin 3.8 g/dL (2.3-3.5) H 05/16/21 17:42 Albumin/Globulin Ratio 0.8 (1.1-1.8) L 05/16/21 17:42 Lipase 66 U/L (73-393) L 05/16/21 17:42 Procalcitonin < 0.05 ng/mL (<0.050) 05/16/21 17:42 SARS-CoV-2 Rap RNA(RT-PCR) Negative (NEGATIVE) 05/16/21 17:50 Assessment And Plan - Plan Physical Exam: General: Alert, Oriented x3, Obese HEENT: Atraumatic, Normocephalic Neck: Supple, 2+ carotid pulse no bruit Respiratory: Clear to auscultation bilaterally, Normal air movement Cardiovascular: Normal pulses, Regular rate/rhythm Gastrointestinal: Normal bowel sounds, Soft and benign Integumentary: Other (Bilateral lower extremity lymphedema with hyperkeratosis, bilateral posterior thigh deep tissue injuries) Conclusions/Impression: Antibiotics Invanz: 05/18-current Levaquin: Assessment/plan Recurrent complicated urinary tract infections -Urine culture from primary care physician's office obtained on 05/06 grew multidrug-resistant Proteus mirabilis. Urine culture obtained at our facility also growing multidrug-resistant Proteus. Of note patient has recurrent UTI secondary to Proteus mirabilis. Patient is likely colonized. We will treat this UTI secondary to subjective fevers. Patient placed on Invanz, tolerating antibiotic well. Continue for 7 days. Bilateral lower extremity lymphedema Continue lymphedema wrapping/wound care per wound care team -Medical management per primary team Plan of care discussed with Dr. Hansen Thank you for consultation
[2021-05-23] MEDS: ERTAPENEM NA 1 GM in NA CHLORIDE 0.9% 100 ML IVPB SCH (13:28)
[2021-05-23] MEDS ORDERED: FUROSEMIDE 40 MG TABLET PO SCH (17:00)
[2021-05-23 18:09] VITALS: O2SAT 96
[2021-05-23] MEDS ORDERED: DIPHENHYDRAMINE 50 MG/ML VIAL IV SCH (19:45)
[2021-05-23] MEDS: ATORVASTATIN 10 MG TAB PO SCH (21:40)
[2021-05-23] MEDS: GABAPENTIN 300 MG CAP PO SCH (21:40)
[2021-05-24 05:31] VITALS: BMI 49.5
[2021-05-24 06:20] LABS: Potassium 3.8 mmol/L (3.5-5.1)
[2021-05-24] MEDS ORDERED: DIPHENHYDRAMINE 50 MG/ML VIAL IV SCH (08:45)
[2021-05-24] MEDS: CRANBERRY FRUIT EXTRACT PO SCH (09:00)
[2021-05-24] MEDS: VIT C PO SCH (09:00)
[2021-05-24] MEDS: SENOSIDES 8.6 MG TAB PO SCH ×2 (09:00→10:10)
[2021-05-24] MEDS: ERTAPENEM NA 1 GM in NA CHLORIDE 0.9% 100 ML IVPB SCH (09:00)
[2021-05-24] MEDS: NA CHLORIDE 0.9% 1,000 ML IV SCH (09:44)
[2021-05-24] MEDS: ENOXAPARIN 40 MG/0.4 ML SQ SCH (10:09)
[2021-05-24] MEDS: FUROSEMIDE 40 MG TABLET PO SCH (10:10)
[2021-05-24] MEDS: POTASSIUM 25 MEQ EFFERV TAB PO SCH (10:10)
[2021-05-24] MEDS: LACTOBACILLUS/ACIDOPHILUS TAB PO SCH (10:11)
--- NOTE | 2021-05-24 10:11 | P.DS ---
Admission Date: 05/16/21 Discharge Date: 05/24/21 Primary Care Provider: Brenda Disposition: DC HOME/HOME HEALTH CARE Discharge Condition: GOOD Reason for Admission: UTI requiring PICC - Problems (1) Catheter-associated urinary tract infection Current Visit: Yes Status: Acute Qualifiers: Indwelling urinary catheter type: cystostomy catheter Encounter type: initial encounter Qualified Code(s): T83.510A - Infection and inflammatory reaction due to cystostomy catheter, initial encounter; N39.0 - Urinary tract infection, site not specified (2) Fibromyalgia Onset Date: 05/26/14 Current Visit: Yes Status: Chronic (3) Lymphedema of both lower extremities Onset Date: 12/12/16 Current Visit: Yes Status: Chronic (4) MDRO (multiple drug resistant organisms) resistance Current Visit: Yes Status: Chronic (5) Morbid obesity Current Visit: Yes Status: Chronic (6) Peripheral neuropathy Onset Date: 08/21/15 Current Visit: Yes Status: Chronic Qualifiers: Peripheral neuropathy type: polyneuropathy, unspecified Qualified Code(s): G62.9 - Polyneuropathy, unspecified (7) Acute kidney failure Onset Date: 06/08/14 Current Visit: No Status: Acute (8) Anemia Current Visit: No Status: Acute Qualifiers: Anemia type: iron deficiency Iron deficiency anemia type: chronic blood loss Qualified Code(s): D50.0 - Iron deficiency anemia secondary to blood loss (chronic) (9) COPD (chronic obstructive pulmonary disease) Current Visit: No Status: Acute Qualifiers: COPD type: COPD with acute exacerbation Qualified Code(s): J44.1 - Chronic obstructive pulmonary disease with (acute) exacerbation (10) Cellulitis of both lower extremities Onset Date: 08/21/15 Current Visit: No Status: Acute (11) Debility Current Visit: No Status: Acute (12) Lymphedema Onset Date: 05/25/14 Current Visit: No Status: Chronic Hospital Course: Patient is 66-year-old female morbid obesity, lymphedema requiring wound care and an indwelling suprapubic catheter. She is being treated with ESBL Proteus UTI. She has completed a full course of Ertapenem. She will get dressing change before her discharge today. Vital Signs/Physical Exam: Temp Pulse Resp BP Pulse Ox 96.3 F L 50 16 118/48 L 94 05/24/21 08:00 05/24/21 08:00 05/24/21 08:00 05/24/21 08:00 05/24/21 08:00 General: Alert, In no apparent distress, Cooperative, Other HEENT: Atraumatic, Normocephalic Neck: Supple Respiratory: Normal air movement Gastrointestinal: Other (suprapubic catheter) Musculoskeletal: No clubbing, No contractures Neurological: Normal speech, Normal affect Laboratory Data at Discharge: WBC 7.20 K/uL (4.3-10.9) 05/21/21 03:47 Hgb 10.8 g/dL (12.0-15.0) L 05/21/21 03:47 Hct 31.9 % (36.0-45.0) L 05/21/21 03:47 Plt Count 182 K/uL (152-406) 05/21/21 03:47 PT 11.6 SECONDS (9.5-12.5) 05/16/21 17:42 INR 1.05 05/16/21 17:42 Sodium 141 mmol/L (136-145) 05/24/21 05:00 Potassium 3.8 mmol/L (3.5-5.1) 05/24/21 05:00 BUN 16 mg/dL (7-18) 05/24/21 05:00 Creatinine 0.76 mg/dL (0.55-1.3) 05/24/21 05:00 Glucose 93 mg/dL (74-106) 05/24/21 05:00 Magnesium 2.1 mg/dL (1.8-2.4) 05/16/21 17:42 Total Bilirubin 0.3 mg/dL (0.2-1.0) 05/19/21 05:32 AST 8 U/L (15-37) L 05/19/21 05:32 ALT < 10 U/L (12-78) L 05/19/21 05:32 Alkaline Phosphatase 50 U/L (45-117) 05/19/21 05:32 Lipase 66 U/L (73-393) L 05/16/21 17:42 Home Medications: Lovastatin 1 tab PO BEDTIME 12/15/17 Metoprolol Tartrate [Lopressor*] 1 tab PO BID 09/16/19 Cranberry Fruit Extract/Vit C [Azo Cranberry Softgel] 1 each PO BID 01/14/21 Diphenhydramine [Benadryl*] 25 mg PO BEDTIME 01/14/21 Gabapentin 300 mg PO BEDTIME 01/14/21 Folic Acid 1 mg PO DAILY #90 tablet 01/21/21 Hydrocodone 7.5/APAP 325 [Slaughters 7.5/325 mg*] 1 tab PO BID PRN #10 tab 01/21/21 Benzonatate [Tessalon Perle*] 100 mg PO TIDP PRN #30 cap 02/07/21 Mometasone/Formoterol [Dulera 200 Mcg/5 Mcg Inhaler] 2 puff IH BID #1 inhaler 02/07/21 Nystatin Powder [Mycostatin (Powder)*] 1 appl TOP DAILY #1 btl 02/07/21 Lactobacillus Acidophilus [Acidophilus Lactobacilli] 1 cap PO BID 02/21/21 Oxybutynin Chloride 1 tab PO BID 02/21/21 Potassium Citrate [Urocit-K] 15 meq PO BID #60 tablet.er 02/23/21 Furosemide [Lasix] 40 mg PO BID 05/18/21 Albuterol Neb [Proventil 0.083% Neb Soln] 2.5 mg NEB [id number] PRN amp 05/24/21 Followup: NONE,NONE [Primary Care Provider] -
[2021-05-24] MEDS: OXYBUTYNIN CHLORIDE 5 MG TAB PO SCH (10:12)
[2021-05-24] MEDS: FOLIC ACID 1 MG TABLET PO SCH (10:12)
[2021-05-24] MEDS: DULERA 200/5 (MOMETASONE/FORMOTEROL) INHALER IH SCH (10:13)
[2021-05-24] MEDS ORDERED: POTASSIUM 25 MEQ EFFERV TAB PO ONE (10:16)
[2021-05-24] MEDS: NYSTATIN PWDR 100000 UNIT/GM TOP SCH (10:21)
--- NOTE | 2021-05-24 11:46 | P.PN ---
Subjective Date of Service: 05/24/21 Primary Care Provider: Brenda Chief Complaint: UTI requiring PICC Patient seen and examined at bedside, has completed course of antibiotics. Plan for DC today. Review of Systems 10-point ROS is otherwise unremarkable Physical Examination - Vital Signs Temperature: 96.3 F Blood Pressure: 118/48 Pulse: 58 Respirations: 16 Pulse Ox (%): 94 - Studies Laboratory Last Values WBC 7.30 K/uL (4.3-10.9) 05/16/21 17:42 RBC 3.83 M/uL (3.86-4.86) L 05/16/21 17:42 Hgb 11.4 g/dL (12.0-15.0) L 05/16/21 17:42 Hct 33.7 % (36.0-45.0) L 05/16/21 17:42 MCV 87.9 fL (80-100) 05/16/21 17:42 MCH 29.8 pg (27.0-35.0) 05/16/21 17:42 MCHC 33.9 g/dL (32.0-36.0) 05/16/21 17:42 RDW 15.8 % (12.1-15.2) H 05/16/21 17:42 Plt Count 239 K/uL (152-406) 05/16/21 17:42 MPV 8.8 fL (7.6-11.3) 05/16/21 17:42 Neutrophils % 73.4 % (41.7-73.7) 05/16/21 17:42 Lymphocytes % 15.1 % (15.3-44.8) L 05/16/21 17:42 Monocytes % 6.9 % (3.3-12.3) 05/16/21 17:42 Eosinophils % 4.0 % (0-4.4) 05/16/21 17:42 Basophils % 0.6 % (0-1.3) 05/16/21 17:42 Absolute Neutrophils 5.3 K/uL (1.8-8.0) 05/16/21 17:42 Absolute Lymphocytes 1.1 K/uL (0.7-4.9) 05/16/21 17:42 Absolute Monocytes 0.5 K/uL (0.1-1.3) 05/16/21 17:42 Absolute Eosinophils 0.3 K/uL (0-0.5) 05/16/21 17:42 Absolute Basophils 0.0 K/uL (0-0.5) 05/16/21 17:42 PT 11.6 SECONDS (9.5-12.5) 05/16/21 17:42 INR 1.05 05/16/21 17:42 Sodium 141 mmol/L (136-145) 05/16/21 17:42 Potassium 3.8 mmol/L (3.5-5.1) 05/16/21 17:42 Chloride 109 mmol/L (98-107) H 05/16/21 17:42 Carbon Dioxide 28 mmol/L (21-32) 05/16/21 17:42 BUN 9 mg/dL (7-18) 05/16/21 17:42 Creatinine 0.83 mg/dL (0.55-1.3) 05/16/21 17:42 Estimated GFR 68 mL/min (=/>90) L 05/16/21 17:42 Glucose 100 mg/dL (74-106) 05/16/21 17:42 Lactic Acid 0.8 mmol/L (0.4-2.0) 05/16/21 17:44 Calcium 8.5 mg/dL (8.5-10.1) 05/16/21 17:42 Magnesium 2.1 mg/dL (1.8-2.4) 05/16/21 17:42 Total Bilirubin 0.4 mg/dL (0.2-1.0) 05/16/21 17:42 Direct Bilirubin 0.1 mg/dL (0-0.2) 05/16/21 17:42 AST 9 U/L (15-37) L 05/16/21 17:42 ALT 11 U/L (12-78) L 05/16/21 17:42 Alkaline Phosphatase 61 U/L (45-117) 05/16/21 17:42 Troponin I High Sens 5.20 pg/mL (<58.9) 05/16/21 17:42 NT-Pro-B Natriuret Pep 435 pg/mL (<125) H 05/16/21 17:42 Serum Total Protein 6.8 g/dL (6.4-8.2) 05/16/21 17:42 Albumin 3.0 g/dL (3.4-5.0) L 05/16/21 17:42 Globulin 3.8 g/dL (2.3-3.5) H 05/16/21 17:42 Albumin/Globulin Ratio 0.8 (1.1-1.8) L 05/16/21 17:42 Lipase 66 U/L (73-393) L 05/16/21 17:42 Procalcitonin < 0.05 ng/mL (<0.050) 05/16/21 17:42 SARS-CoV-2 Rap RNA(RT-PCR) Negative (NEGATIVE) 05/16/21 17:50 Assessment And Plan - Plan Physical Exam: General: Alert, Oriented x3, Obese HEENT: Atraumatic, Normocephalic Neck: Supple, 2+ carotid pulse no bruit Respiratory: Clear to auscultation bilaterally, Normal air movement Cardiovascular: Normal pulses, Regular rate/rhythm Gastrointestinal: Normal bowel sounds, Soft and benign Integumentary: Other (Bilateral lower extremity lymphedema with hyperkeratosis, bilateral posterior thigh deep tissue injuries) Conclusions/Impression: Antibiotics Invanz: 05/18-current Levaquin: Assessment/plan Recurrent complicated urinary tract infections -Urine culture from primary care physician's office obtained on 05/06 grew multidrug-resistant Proteus mirabilis. Urine culture obtained at our facility also growing multidrug-resistant Proteus. Of note patient has recurrent UTI secondary to Proteus mirabilis. Patient is likely colonized. We will treat this UTI secondary to subjective fevers. Patient placed on Invanz, tolerating antibiotic well. Continue for 7 days. Bilateral lower extremity lymphedema Continue lymphedema wrapping/wound care per wound care team -Medical management per primary team Plan of care discussed with Dr. Hansen Thank you for consultation
[2021-05-24 12:32] VITALS: BP 108/50; TEMP 97.1
== END 2021-05-24 15:00 | disposition home health service (06) | DRG 699 ==
LOC: ER 16:23 → ERHOLD 18:51 → 2ND 21:01
PROVIDERS: ADMIT Internal Medicine; ATTEND Internal Medicine
DX: T83.510A Infection and inflammatory reaction due to cystostomy catheter, initial encounter (principal); Z16.24 Resistance to multiple antibiotics; Z68.42 Body mass index [BMI] 45.0-49.9, adult; Z16.12 Extended spectrum beta lactamase (ESBL) resistance; N39.0 Urinary tract infection, site not specified; B96.4 Proteus (mirabilis) (morganii) as the cause of diseases classified elsewhere; I89.0 Lymphedema, not elsewhere classified; E66.01 Morbid (severe) obesity due to excess calories; I95.9 Hypotension, unspecified; M79.7 Fibromyalgia; G62.9 Polyneuropathy, unspecified; L27.1 Localized skin eruption due to drugs and medicaments taken internally; T36.1X5A Adverse effect of cephalosporins and other beta-lactam antibiotics, initial encounter; Y92.238 Other place in hospital as the place of occurrence of the external cause; I87.2 Venous insufficiency (chronic) (peripheral); S70.12XA Contusion of left thigh, initial encounter; S70.11XA Contusion of right thigh, initial encounter; L57.0 Actinic keratosis; J44.9 Chronic obstructive pulmonary disease, unspecified
CPT/HCPCS: 36415; 36569; 71045; 80048; 80053; 80076; 81003; 81015; 83605; 83690; 83735; 83880; 84132; 84145; 84484; 85025; 85610; 87040; 87077; 87086; 87088; 87186; 93005; 94640; 97110; 97116; 97161; 97530; 99251; 99285; J1200; J1335; J1650; J2185; J2270; J2405; J2930; J7030; J7606; U0003

== ENCOUNTER 2021-06-29 15:15 | Inpatient (IN) | payer OTHER ==
--- OUTSIDE RECORDS SUMMARY | 2021-06-29 15:18 | XMS REPORT | Continuity of Care Document ---
:[address] [facility] t Address [address] [place] [address] Care Team Providers Name Role Phone Neri Gutierrez Attending Clinician Unavailable Problems This patient has no known problems. Allergies, Adverse Reactions, Alerts Allergy Allergy Status Severity Reaction(s) Onset Inactive Treating [facility] ents Source Name Type Date Date Clinician sulfa Adverse Active Info Not [facility] Reaction Available [facility] Rocephin Adverse [facility] Reaction Available [facility] Macrobid Adverse Active [facility] Available [facility] Lincocin Adverse Active Info [facility] Reaction Available [facility] Fentanyl Adverse Active Info [facility] Reaction Available [facility] Betadine Adverse Active Info [facility] Reaction Available [facility] Augmenti Adverse Active Info [facility] Reaction Available [facility] Aloe Adverse Active Info Not [facility] Vera Reaction Available [facility] Vancomyc Adverse Active Info Not [facility] in HCl Reaction Available [facility] Medications Ordered Filled Start Stop Current Ordering Indication Dosage Frequency Signature Comments Components Source Medication Medication Date Date Medication? Clinician (SIG) Name Name Metoprolol Metoprolol Yes Na Gutierrez [address] [facility] Tartrate Tartrate 8-26 with food Sanna kes - 00:00: [facility] 00 [facility] Doxycycline Doxycycline 2018-1 Yes Na Gutierrez 1 [...] Date/Time Type Type Clinicians Facility Department ID 2021-06-11 Outpatient Judith Gutierrez [facility] [id number] [facility] 08:32[facility]00 [id number] [facility] 2021-06-05 Outpatient Judith Gutierrez [facility] [id number] [facility] 11:00:01 [id number] [facility] 2021-05-31 Outpatient Judith Gutierrez [facility] [id number] [facility] 09:00:01 [id number] [facility] 2021-05-14 Outpatient Judith Gutierrez [facility] [id number] [facility] 09:20:01 [facility] 2021-04-26 Outpatient Judith Gutierrez [facility] [id number] [facility] 15:13:00 [id number] [facility] 2021-04-04 Outpatient Judith Gutierrez [facility] [id number] [facility] 13:37:41 [id number] [facility] 2021-04-04 Outpatient Brenda, Judith [facility] [id number] [facility] 13:27:35 [id number] [facility] 2021-04-04 Outpatient Brenda, Na [facility] [id number] [facility] 13:10:57 [id number] [facility] 2021-04-04 Outpatient Judith Gutierrez [facility] [id number] [facility] 12:33:38 [id number] [facility] 2021-04-04 Outpatient Brenda, Judith [facility] [id number] [facility] 12:33:09 [id number] [facility] 2021-04-04 Outpatient Gutierrez, Na [facility] [id number] [facility] 11:19:52 [id number] [facility] 2021-04-04 Outpatient Gutierrez, Na [facility] [id number] [facility] 11:19:18 [id number] [facility] 2021-06-13 2021-06-13 ambulatory [facility] [id number] [facility]00 [facility] 2021-06-12 2021-06-12 ambulatory [facility] [id number] [facility] 2021-06-04 2021-06-04 ambulatory [facility] [id number] [facility] 2021-05-28 2021-05-28 ambulatory [facility] [id number] [facility] 2021-05-14 2021-05-14 ambulatory [facility] [id number] [facility] 2021-04-26 2021-04-26 ambulatory [facility] [id number] [facility] 2021-04-12 2021-04-12 ambulatory [facility] [id number] [facility] 2021-03-30 2021-03-30 ambulatory [facility] [id number] [facility] 2021-02-27 2021-02-27 ambulatory [facility] [id number] [facility] 2021-01-01 2021-01-01 Outpatient [facility] [id number] [facility] 2020-12-19 2020-12-19 Outpatient [facility] [id number] [facility] 2020-10-26 2020-10-26 Outpatient [facility] [id number] [facility] 2020-10-26 2020-10-26 Outpatient [facility] [id number] [facility] 2020-10-19 2020-10-19 Outpatient [facility] [id number] [facility] 2020-10-11 2020-10-11 Outpatient [facility] [id number] [facility] 2020-09-27 2020-09-27 Outpatient [facility] [id number] [facility] 2020-09-27 2020-09-27 Outpatient [facility] [id number] [facility] 2020-09-22 2020-09-22 Outpatient [facility] [id number] [facility] 2020-08-15 2020-08-15 Outpatient [facility] [id number] [facility] 2020-07-21 2020-07-21 Outpatient [facility] [id number] [facility] 2020-07-03 2020-07-03 Outpatient [facility] [id number] [facility] 2020-06-30 2020-06-30 Outpatient [facility] [id number] [facility] 2020-06-30 2020-06-30 Outpatient [facility] [id number] [facility] 2020-06-27 2020-06-27 Outpatient [facility] [id number] [facility] 2020-06-07 2020-06-07 Outpatient [facility] [id number] [facility] 2020-05-29 2020-05-29 Outpatient [facility] [id number] [facility] 2020-05-23 2020-05-23 Outpatient [facility] [id number] [facility] 2020-05-11 2020-05-11 Outpatient [facility] [id number] [facility] 2020-05-07 2020-05-07 Outpatient [facility] [id number] [facility] 2020-05-04 2020-05-04 Outpatient [facility] [id number] [facility] 2020-04-19 2020-04-19 Outpatient [facility] [id number] [facility] 2020-04-04 2020-04-04 Outpatient [facility] [id number] [facility] 2020-02-04 2020-02-04 Outpatient [facility] [id number] [facility] 2020-02-01 2020-02-01 Outpatient [facility] [id number] [facility] 2020-01-05 2020[facility]01-05 Outpatient [facility] [id number] [facility] 2019-12-20 2019-12-20 Outpatient [facility] [id number] [facility] 2019-12-19 2019-12-19 Outpatient [facility] [id number] [facility] 2019-12-17 2019-12-17 Outpatient [facility] [id number] [facility] 2019-11-03 2019-11-03 [facility] [id number] [facility] 10:19:00 10:19:[address] [employer] s - Drive [facility] Medicine l Medicine Outpati ent Clinics 2019-10-06 2019-10-06 [facility] [id number] [facility] 16:47:00 16:47:[address] Luke s - Drive [facility] Medicine l Medicine Outpati ent Clinics 2019-09-30 2019-09-30 [facility] [id number] [facility] 14:56:00 14:56:[address] Luke s - Drive [facility] Medicine l Medicine Outpati ent Clinics 2019-09-14 2019-09-14 [facility] [id number] [facility] 13:55:00 13:55:[address] Luke s - Drive [facility] Medicine l Medicine Outpati ent Clinics 2019-08-12 2019-08-12 [facility] [id number] [facility] 11:39:00 11:39:00 [place] [employer] s - Drive [facility] Medicine l Medicine Outpati ent Clinics 2019-07-09 2019-07-09 [facility] [id number] [facility] 11:26:00 11:26:00 [place] [employer] s - Drive [facility] Medicine l Medicine Outpati ent Clinics 2019-07-06 2019-07-06 [facility] [id number] [facility] 14:00:00 14:00:00 [place] [employer] [facility] l Medicine Outpati ent Clinics 2019-06-11 2019-06-11 [facility] [id number] [facility] 10:29:00 10:29:00 [place] [employer] [facility] l Medicine Outpati ent Clinics 2019-06-08 2019-06-08 [facility] [id number] [facility] 10:57:00 10:57:00 [employer] [facility] l Medicine Outpati ent Clinics 2019-05-24 2019-05-24 [facility] [id number] [facility] 14:44:00 14:44:00 [employer] [facility] Medicine Medicine Outpati ent Clinics 2019-04-12 2019-04-12 [facility] [id number] [facility] 10:58:00 10:58:00 [employer] [facility] l Medicine Outpati ent Clinics 2019-04-08 2019-04-08 [facility] [id number] [facility] 17:13:00 17:13:00 [place] [employer] [facility] Medicine Medicine Outpati ent Clinics 2019-03-26 2019-03-26 [facility] [id number] [facility] 07:58:00 07:58:00 [place] [employer] [facility] Medicine Outpati ent Clinics 2019-02-01 2019-02-01 [facility] [id number] [facility] 10:49:00 10:49:00 [place] [employer] s - Drive [facility] l Medicine Outpati ent Clinics 2019-01-21 2019-01-21 [facility] [id number] [facility] 12:09:00 12:09:00 [place] [employer] Luke s - Drive [facility] Medicine Medicine Outpati ent Clinics 2018-12-31 2018-12-31 [facility] [id number] [facility] 13:40:00 13:40:00 [place] [employer] Luke s - Drive [facility] l Medicine Outpati ent Clinics 2018-12-24 2018-12-24 [facility] [id number] [facility] 16:51:00 16:51:00 [place] [employer] Luke s - Drive [facility] Medicine Medicine Outpati ent Clinics 2018-12-22 2018-12-22 [facility] [id number] [facility] 10:09:00 10:09:00 [place] [employer] s - Drive [facility] Medicine Outpati ent Clinics 2018-12-16 2018-12-16 [facility] [id number] [facility] 13:32:00 13:32:00 [place] [employer] s - Drive [facility] Medicine Outpati ent Clinics 2018-12-09 2018-12-09 [facility] [id number] [facility] 15:07:00 15:07:00 [place] [employer] - Drive [facility] Medicine Outpati ent Clinics 2018-12-08 2018-12-08 [facility] [id number] [facility] 09:21:00 09:21:00 [place] [employer] s - Drive [facility] Medicine Outpati ent Clinics 2018-12-07 2018-12-07 [facility] [id number] [facility] 15:10:00 15:10:00 [place] [employer] s - Drive [facility] Medicine Outpati ent Clinics 2018-10-29 2018-10-29 [facility] [id number] [facility] 11:00:00 11:00:00 [place] [employer] s - Drive [facility] Medicine Outpati ent Clinics 2018-10-20 2018-10-20 [facility] [id number] [facility] 13:23:00 13:23:00 [place] [employer] - Drive [facility] Medicine Outpati ent Clinics 2018-10-05 2018-10-05 [facility] [id number] 16:27:00 16:27:00 t [employer] [facility] Outpati ent Clinics 2018-09-25 2018-09-25 [facility] [id number] [facility] 16:15:00 16:15:00 t [employer] [facility] Outpati ent Clinics 2018-09-23 2018-09-23 [facility] [id number] [facility] 15:54:00 15:54:00 t [employer] [facility] Medicine Outpati ent Clinics 2018-08-27 2018-08-27 [facility] [id number] [facility] 16:00:00 16:00:00 t [employer] [facility] Medicine Outpati ent Clinics 2018-08-25 2018-08-25 [facility] [id number] [facility] 15:20:00 15:20:00 t [employer] [facility] Outpat[facility] ent Clinics Results This patient has no known results.
[2021-06-29 15:57] LABS: Absolute Lymphocytes (CBC) 1.5 K/uL (0.7-4.9); Lymphocytes % 15.3 % (15.3-44.8); MPV 8.9 fL (7.6-11.3); RBC Red Blood Cell Count 4.51 M/uL (3.86-4.86)
[2021-06-29 16:01] LABS: Protime INR 1.1
[2021-06-29 16:02] LABS: Urine Blood 1+ (Negative); Urine Glucose Negative (Negative); Urine Protein Trace (Negative); Urine pH 8.5 (5.0-7.0)
[2021-06-29] MEDS ORDERED: ASPIRIN 81 MG CHEWABLE TABLET ONE (16:11)
[2021-06-29] MEDS ORDERED: FAMOTIDINE 20 MG/2 ML VIAL IV ONE (16:12)
[2021-06-29] MEDS ORDERED: NA CHLORIDE 0.9% 1,000 ML ONE (16:12)
[2021-06-29] MEDS ORDERED: ENOXAPARIN 30 MG/0.3 ML SQ ONE (16:12)
[2021-06-29] MEDS ORDERED: ENOXAPARIN 100 MG/ML SYR SQ ONE (16:12)
--- NOTE | 2021-06-29 16:13 | ER ---
Nurse's Notes [facility] Cristal Name: Jv Bryant Age: 66 yrs Sex: Female : 1955 Arrival Date: 06/29/2021 Time: 15:18 Bed 14 Private MD: Diagnosis: Chest pain on breathing;Obesity, unspecified;Fibromyalgia;UTI/ Urinary tract infection, site not specified-Suprapubic, PROTEUS;Non ST elevation NV Presentation: 06/29 15:35 Chief complaint: Patient states: 'I started having chest pain yesterday and it went ab2 away for a little bit, but then it came back and im also SOB.". Coronavirus screen: Vaccine status: Patient reports being unvaccinated. Client denies travel out of the [place] in the last 14 days. At this time, the client does not indicate any symptoms associated with coronavirus-19. Ebola Screen: Patient negative for fever greater than or equal to 101.5 degrees Fahrenheit, and additional compatible Ebola Virus Disease symptoms Patient denies exposure to infectious person. Patient denies travel to an Ebola-affected area in the 21 days before illness onset. No symptoms or risks identified at this time. Initial Sepsis Screen: Does the patient meet any 2 criteria? No. Patient's initial sepsis screen is negative. Does the patient have a suspected source of infection? No. Patient's initial sepsis screen is negative. Risk Assessment: Do you want to hurt yourself or someone else? Patient reports no desire to harm self or others. Onset of symptoms is unknown. 15:35 Method Of Arrival: EMS: [facility] ab2 15:35 Acuity: SKYLER 3 ab2 Triage Assessment: 15:38 General: Appears in no apparent distress. Respiratory: Reports shortness of breath ab2 Onset: The symptoms/episode began/occurred yesterday, the patient reports symptoms have resolved. Historical: - Allergies: 15:24 aloe vera; ab2 15:24 Fentanyl; ab2 15:24 Iodine; ab2 15:24 Macrolide Antibiotics; ab2 15:24 Sulfa (Sulfonamide Antibiotics); ab2 16:15 meropenem; ab2 - PMHx: 15:24 ADD/ADHD; Arthritis; Chronic pain; COPD; Fibromyalgia; frequent UTI'S; heart disease- ab2 unspecified; Hyperlipidemia; Hypertension; insomnia; lymphedema; PERIPHERAL NEUROPATHY; unspecified kidney failure; - Immunization history:: Adult Immunizations up to date. - Social history:: Smoking status: Patient denies any tobacco usage or history of. Screenin:37 Abuse screen: Denies threats or abuse. Denies injuries from another. Nutritional ab2 screening: No deficits noted. Tuberculosis screening: No symptoms or risk factors identified. Fall Risk None identified. Assessment: 15:36 General: Appears in no apparent distress. uncomfortable, Behavior is calm, cooperative, ab2 appropriate for age. Pain: Complains of pain in chest. Neuro: Level of Consciousness is awake, alert, obeys commands, Oriented to person, place, time, situation, Appropriate for age Social Security Assessor are equal bilaterally Moves all extremities. Cardiovascular: No deficits noted. Heart tones S1 S2 present Patient's skin is warm and dry. Rhythm is sinus rhythm. Respiratory: Airway is patent Respiratory effort is even, unlabored, Respiratory pattern is regular, symmetrical, Breath sounds are diminished bilaterally. GI: No deficits noted. No signs and/or symptoms were reported involving the gastrointestinal system. Abdomen is obese, Bowel sounds present X 4 quads. : Pedroza in place. EENT: No deficits noted. No signs and/or symptoms were reported regarding the EENT system. Derm: Skin is fragile. Vital Signs: 15:23 BP 119 / 51; Pulse 80; Resp 18; Pulse Ox 96% on R/A; ab2 15:52 Temp 98.2; Weight 119.75 kg; Height 5 ft. 4 in. (162.56 cm); ab2 16:41 BP 108 / 58; Pulse 79; Resp 19; Pulse Ox 98% on R/A; ab2 17:47 BP 128 / 61; Pulse 79; Resp 18; Pulse Ox 100% ; Pain 10/10; ab2 18:27 BP 100 / 47; Pulse 81; Resp 18; Pulse Ox 94% on R/A; ab2 15:52 Body Mass Index 45.32 (119.75 kg, 162.56 cm) ab2 ED Course: 15:18 Patient arrived in ED. ss 15:22 Pascual Wray MD is Attending Physician. vinicius 15:35 Nehemiah Deleon is Primary Nurse. ab2 15:36 Triage completed. ab2 15:37 Arm band placed on right wrist. ab2 15:38 Patient has correct armband on for positive identification. Bed in low position. Call ab2 light in reach. Side rails up X2. 15:38 No provider procedures requiring assistance completed. ab2 15:38 Inserted saline lock: 20 gauge in right antecubital area, using aseptic technique. ab2 Blood collected. 16:06 Urine Culture Sent. ab2 16:06 Lipase Sent. ab2 16:10 Zach Frost is Hospitalizing Provider. [facility] 16:22 XRAY Chest (1 view) In Process Unspecified. EDMS 20:15 Report given to Rocío RN. ab2 Administered Medications: 16:10 Drug: Lovenox (enoxaparin) 1 mg/kg Route: Sub-Q; Site: abdomen; ab2 16:13 Drug: Aspirin 81 mg Route: PO; ab2 16:13 Drug: Pepcid (famotidine) 20 mg Route: IVP; Site: right antecubital; ab2 16:14 Drug: NS 0.9% 1000 ml Route: IV; Rate: 125 ml/hr; Site: right antecubital; ab2 16:16 Not Given (Patient Refused): Meropenem 1 grams IV at per protocol once; (mix in NS 100 ab2 mL) 16:51 Drug: PlaVIX (clopidogrel) 150 mg Route: PO; ab2 Outcome: 16:12 Decision to Hospitalize by Provider. [facility] 20:56 Patient left the ED. tw5 20:56 Admitted to Med/surg accompanied by nurse, via stretcher, with chart, Report called to ab2 Michelle 20:56 Condition: good Signatures: Dispatcher [employer] EDMS Pascual Wray MD MD cha Smirch, Shelby, RN RN Gi Mckeon tw5 Nehemiah Deleon ab2
--- NOTE | 2021-06-29 16:13 | EDPHYS ---
Physician Documentation [facility] Name: Jv Bryant Age: 66 yrs Sex: Female : 1955 Arrival Date: 06/29/2021 Time: 15:18 Bed 14 Private MD: ED Physician Pascual Wray HPI: 06/29 15:43 This 66 yrs old Female presents to ER via EMS with complaints of Shortness Of vinicius Breath. 15:43 The patient has shortness of breath at rest, with light activity. Onset: The vinicius symptoms/episode began/occurred just prior to arrival. Duration: The symptoms are continuous, and are steadily getting worse. The patient's shortness of breath has no apparent modifying factors. Severity of symptoms: At their worst the symptoms were moderate in the emergency department the symptoms are unchanged. The patient has experienced similar episodes in the past, several times. Historical: - Allergies: 15:24 aloe vera; ab2 15:24 Fentanyl; ab2 15:24 Iodine; ab2 15:24 Macrolide Antibiotics; ab2 15:24 Sulfa (Sulfonamide Antibiotics); ab2 16:15 meropenem; ab2 - PMHx: 15:24 ADD/ADHD; Arthritis; Chronic pain; COPD; Fibromyalgia; frequent UTI'S; heart disease- ab2 unspecified; Hyperlipidemia; Hypertension; insomnia; lymphedema; PERIPHERAL NEUROPATHY; unspecified kidney failure; - Immunization history:: Adult Immunizations up to date. - Social history:: Smoking status: Patient denies any tobacco usage or history of. ROS: 15:43 Constitutional: Negative for fever, chills, and weight loss, Eyes: Negative for injury, vinicius pain, redness, and discharge, ENT: Negative for injury, pain, and discharge, Neck: Negative for injury, pain, and swelling, Cardiovascular: Negative for chest pain, palpitations, and edema, Abdomen/GI: Negative for abdominal pain, nausea, vomiting, diarrhea, and constipation, Back: Negative for injury and pain, : Negative for injury, bleeding, discharge, and swelling, MS/Extremity: Negative for injury and deformity, Skin: Negative for injury, rash, and discoloration, Neuro: Negative for headache, weakness, numbness, tingling, and seizure, Psych: Negative for depression, anxiety, suicide ideation, homicidal ideation, and hallucinations, Allergy/Immunology: Negative for hives, rash, and allergies, Endocrine: Negative for neck swelling, polydipsia, polyuria, polyphagia, and marked weight changes, Hematologic/Lymphatic: Negative for swollen nodes, abnormal bleeding, and unusual bruising. 15:43 Respiratory: Positive for cough, pleurisy, of the chest, shortness of breath. Exam: 15:43 Constitutional: This is a well developed, well nourished patient who is awake, alert, vinicius and in no acute distress. Head/Face: Normocephalic, atraumatic. Eyes: Pupils equal round and reactive to light, extra-ocular motions intact. Lids and lashes normal. Conjunctiva and sclera are non-icteric and not injected. Cornea within normal limits. Periorbital areas with no swelling, redness, or edema. ENT: Nares patent. No nasal discharge, no septal abnormalities noted. Tympanic membranes are normal and external auditory canals are clear. Oropharynx with no redness, swelling, or masses, exudates, or evidence of obstruction, uvula midline. Mucous membranes moist. Neck: Trachea midline, no thyromegaly or masses palpated, and no cervical lymphadenopathy. Supple, full range of motion without nuchal rigidity, or vertebral point tenderness. No Meningismus. Chest/axilla: Normal chest wall appearance and motion. Nontender with no deformity. No lesions are appreciated. Cardiovascular: Regular rate and rhythm with a normal S1 and S2. No gallops, murmurs, or rubs. Normal PMI, no JVD. No pulse deficits. Respiratory: Lungs have equal breath sounds bilaterally, clear to auscultation and percussion. No rales, rhonchi or wheezes noted. No increased work of breathing, no retractions or nasal flaring. Abdomen/GI: Soft, non-tender, with normal bowel sounds. No distension or tympany. No guarding or rebound. No evidence of tenderness throughout. Back: No spinal tenderness. No costovertebral tenderness. Full range of motion. Female : Normal external genitalia. Skin: Warm, dry with normal turgor. Normal color with no rashes, no lesions, and no evidence of cellulitis. MS/ Extremity: Pulses equal, no cyanosis. Neurovascular intact. Full, normal range of motion. Neuro: Awake and alert, GCS 15, oriented to person, place, time, and situation. Cranial nerves II-XII grossly intact. Motor strength 5/5 in all extremities. Sensory grossly intact. Cerebellar exam normal. Normal gait. Psych: Awake, alert, with orientation to person, place and time. Behavior, mood, and affect are within normal limits. 15:43 Musculoskeletal/extremity: Circulation is intact in all extremities. DVT Exam: no pain, no tenderness, negative Homans' sign noted on exam, no appreciated bluish discoloration, no erythema, no increased warmth, swelling. Vital Signs: 15:23 BP 119 / 51; Pulse 80; Resp 18; Pulse Ox 96% on R/A; ab2 15:52 Temp 98.2; Weight 119.75 kg; Height 5 ft. 4 in. (162.56 cm); ab2 16:41 BP 108 / 58; Pulse 79; Resp 19; Pulse Ox 98% on R/A; ab2 17:47 BP 128 / 61; Pulse 79; Resp 18; Pulse Ox 100% ; Pain 10/10; ab2 18:27 BP 100 / 47; Pulse 81; Resp 18; Pulse Ox 94% on R/A; ab2 15:52 Body Mass Index 45.32 (119.75 kg, 162.56 cm) ab2 MDM: 15:22 Patient medically screened. vinicius 15:45 Differential diagnosis: Anemia Anxiety Reaction Bronchitis CHF exacerbation, Chronic vinicius Obstructive Pulmonary Disease Myocardial Infarction pneumonia, pulmonary edema, Pulmonary Embolism reactive airway disease. Antibiotic administration: Not indicated. The patient's Wells Deep Vein Thrombosis Score was calculated as follows: Previous DVT/PE (1.5 Pts) Total Score: 0-2 Pts- Low Risk. The patient's pulmonary embolism risk score was calculated as follows: the patient has a history of a previous deep vein thrombosis or pulmonary embolism (1.5 Pts) Total Score: 0-2 points. This patient was found to be at low risk for a pulmonary embolism by using the Well's assessment criteria. Immunization status: Pneumococcal vaccine: Influenza vaccine: Data reviewed: vital signs, nurses notes, lab test result(s), cardiac enzymes, CBC, electrolytes, hepatic panel, EKG, radiologic studies, plain films. Data interpreted: monitor car operator: rate is 80 beats/min, rhythm is regular, Pulse oximetry: on room air is 96 %. Test interpretation: by ED physician or midlevel provider: ECG, plain radiologic studies. Counseling: I had a detailed discussion with the patient and/or guardian regarding: the historical points, exam findings, and any diagnostic results supporting the discharge/admit diagnosis, lab results, radiology results. 06/29 15:43 Order name: Basic Metabolic Panel; Complete Time: 16:36 [facility] 06/29 15:43 Order name: CBC with Diff; Complete Time: 16:09 [facility] 06/29 15:43 Order name: LFT's; Complete Time: 16:36 [facility] 06/29 15:43 Order name: Magnesium; Complete Time: 16:36 [facility] 06/29 15:43 Order name: NT PRO-BNP; Complete Time: 16:36 [facility] 06/29 15:43 Order name: PT-INR; Complete Time: 16:09 [facility] 06/29 15:43 Order name: Troponin HS; Complete Time: 16:36 [facility] 06/29 15:43 Order name: XRAY Chest (1 view) [facility] 06/29 15:43 Order name: Lipase; Complete Time: 16:36 [facility] 06/29 15:43 Order name: SARS-COV-2 RT PCR (Document "Date of Onset" if Symptomatic) [facility] 06/29 15:43 Order name: Urine Culture 06/29 16:03 Order name: Urine Dipstick-Ancillary; Complete Time: 16:09 [facility] 06/29 15:43 Order name: EKG; Complete Time: 15:44 [facility] 06/29 15:43 Order name: Cardiac monitoring; Complete Time: 15:47 [facility] 06/29 15:43 Order name: EKG - Nurse/Tech; Complete Time: 15:47 [facility] 06/29 15:43 Order name: IV Saline Lock; Complete Time: 15:47 [facility] 06/29 15:43 Order name: Labs collected and sent; Complete Time: 15:47 [facility] 06/29 15:43 Order name: O2 Per Protocol; Complete Time: 15:47 [facility] 06/29 15:43 Order name: O2 Sat Monitoring; Complete Time: 15:47 [facility] 06/29 15:43 Order name: Urine Dipstick-Ancillary (obtain specimen); Complete Time: 16:06 [facility] Administered Medications: 16:10 Drug: Lovenox (enoxaparin) 1 mg/kg Route: Sub-Q; Site: abdomen; ab2 16:13 Drug: Aspirin 81 mg Route: PO; ab2 16:13 Drug: Pepcid (famotidine) 20 mg Route: IVP; Site: right antecubital; ab2 16:14 Drug: NS 0.9% 1000 ml Route: IV; Rate: 125 ml/hr; Site: right antecubital; ab2 16:16 Not Given (Patient Refused): Meropenem 1 grams IV at per protocol once; (mix in NS 100 ab2 mL) 16:51 Drug: PlaVIX (clopidogrel) 150 mg Route: PO; ab2 Disposition Summary: 06/29/21 16:12 Hospitalization Ordered Provider: Zach Frost cha Condition: Stable vinicius Problem: new vinicius Symptoms: have improved vinicius Bed/Room Type: Standard vinicius Hospitalization Status: Inpatient Admission(06/29/21 16:37) vinicius Location: Telemetry/MedSurg (Inpatient)(06/29/21 16:37) vinicius Room Assignment: 219(06/29/21 19:28) Diagnosis - Chest pain on breathing vinicius - Obesity, unspecified vinicius - Fibromyalgia vinicius - UTI/ Urinary tract infection, site not specified - Suprapubic, PROTEUS(06/29/21 vinicius 16:13) - Non ST elevation DE vinicius Forms: - Medication Reconciliation Form vinicius - SBAR form vinicius Signatures: Dispatcher [employer] EDMS Chandrika Argueta RN RN Pascual Calhoun MD MD cha Bleininger, Alexis ab2 Corrections: (The following items were deleted from the chart) 16:05 15:47 Chest For PE Angio+CT.RAD.BRZ ordered. EDMS EDMS 16:13 16:12 UTI/ Urinary tract infection, site not specified - Suprapubic vinicius vinicius 16:37 16:12 Observation vinicius vinicius 16:37 16:12 Telemetry/MedSurg (observation) vinicius vinicius 16:37 16:12 vinicius vinicius 19:28 16:37 vinicius
[2021-06-29 16:21] LABS: Albumin 3.2 g/dL (3.4-5.0); Bilirubin Direct 0.1 mg/dL (0-0.2); Bilirubin Total 0.7 mg/dL (0.2-1.0); Magnesium 2.2 mg/dL (1.8-2.4); Potassium 3.5 mmol/L (3.5-5.1); Protein, Total 7.4 g/dL (6.4-8.2); Troponin High Sensitivity 128.2 pg/mL (<58.9)
--- NOTE | 2021-06-29 16:48 | RAD REPORT ---
EXAM DESCRIPTION: Chrissy Single View06/29/2021 4:21 pm CLINICAL HISTORY: Cough COMPARISON: May 2001 FINDINGS: Mild bilateral pulmonary opacities. Heart is mildly enlarged IMPRESSION: These findings probably indicate mild CHF
[2021-06-29] MEDS ORDERED: CLOPIDOGREL 75 MG TABLET ONE (16:52)
--- NOTE | 2021-06-29 17:42 | P.HP ---
Certification for Inpatient Patient admitted to: Inpatient With expected LOS: >2 Midnights Practitioner: I am a practitioner with admitting privileges, knowledge of patient current condition, hospital course, and medical plan of care. Services: Services provided to patient in accordance with Admission requirements found in Title 42 Section 412.3 of the Code of Federal Regulations Patient History Date of Service: 06/29/21 Reason for admission: Chest pain History of Present Illness: 66-year-old woman well-known to the hospitalist service with a history of lymphedema, COPD, obstructive sleep apnea presented to the emergency department with a complaint of chest pain of onset yesterday. Patient described severe chest pain, in the anterior chest, worse with deep breathing, partially relieved with morphine, associated with shortness of breath. She reports occasional nonproductive cough, denied fever. Work-up in the emergency department demonstrated elevated troponin. Chest x-ray demonstrated mild CHF. Patient hospitalized for further management. Allergies amoxicillin [From Augmentin] Allergy (Severe, Verified 09/16/19 23:49) diarrhea, nausea, vomiting ceftriaxone [From Rocephin] Allergy (Severe, Verified 09/16/19 23:49) Itching/Hives/Rash fentanyl Allergy (Severe, Verified 09/16/19 23:49) Itching/Hives/Rash iodine Allergy (Severe, Verified 09/16/19 23:49) Unknown lincomycin [From Lincocin] Allergy (Severe, Verified 09/16/19 23:49) rashes,headaches pneumococcal vaccine [From Pneumovax 23] Allergy (Severe, Verified 09/16/19 23: 49) sick more than a week sulfamethoxazole [From Bactrim] Allergy (Severe, Verified 09/16/19 23:49) Anaphylaxis trifluoperazine [From Stelazine] Allergy (Severe, Verified 09/16/19 23:49) itching and rashes vancomycin Allergy (Severe, Verified 09/16/19 23:49) renal failure soap [From Betadine] Allergy (Mild, Verified 09/16/19 23:49) Hives/Rash Sulfa (Sulfonamide Antibiotics) Allergy (Mild, Verified 09/16/19 23:49) Anaphylaxis aloe vera Allergy (Verified 09/16/19 23:49) Itching celery Allergy (Verified 09/16/19 23:49) Nausea/Vomiting Macrolide Antibiotics Allergy (Verified 09/16/19 23:49) Itching/Hives/Rash FLU VACCINE Allergy (Severe, Uncoded 09/16/19 23:49) sick for more than a week aloe vera Allergy (Uncoded 09/16/19 23:49) Unknown hall peppers Allergy (Uncoded 09/16/19 23:49) Nausea/Vomiting celery Allergy (Uncoded 09/16/19 23:49) Unknown FLU VAC Allergy (Uncoded 09/16/19 23:49) Unknown peppers Allergy (Uncoded 09/16/19 23:49) Unknown Home Medications: Lovastatin 1 tab PO BEDTIME 12/15/17 Metoprolol Tartrate [Lopressor*] 1 tab PO BID 09/16/19 Cranberry Fruit Extract/Vit C [Azo Cranberry Softgel] 1 each PO BID 01/14/21 Diphenhydramine [Benadryl*] 25 mg PO BEDTIME 01/14/21 Gabapentin 300 mg PO BEDTIME 01/14/21 Folic Acid 1 mg PO DAILY #90 tablet 01/21/21 Hydrocodone 7.5/APAP 325 [Hudson 7.5/325 mg*] 1 tab PO BID PRN #10 tab 01/21/21 Benzonatate [Tessalon Perle*] 100 mg PO TIDP PRN #30 cap 02/07/21 Mometasone/Formoterol [Dulera 200 Mcg/5 Mcg Inhaler] 2 puff IH BID #1 inhaler 02/07/21 Nystatin Powder [Mycostatin (Powder)*] 1 appl TOP DAILY #1 btl 02/07/21 Lactobacillus Acidophilus [Acidophilus Lactobacilli] 1 cap PO BID 02/21/21 Oxybutynin Chloride 1 tab PO BID 02/21/21 Potassium Citrate [Urocit-K] 15 meq PO BID #60 tablet.er 02/23/21 Furosemide [Lasix] 40 mg PO BID 05/18/21 Albuterol Neb [Proventil 0.083% Neb Soln] 2.5 mg NEB [id number] PRN amp 05/24/21 - Past Medical/Surgical History Diabetic: No -: Lymphedema - bilateral leg -: Morbid obesity with Hx of Lap. Band -: Peripheral neuropathy -: Osteoarthritis -: mild COPD -: mild eczema -: Depression -: Sleep apnea -: CHF -: CRE -: hypertension -: frequent UTIs -: -: Lap band 2008 -: Tonsillectomy and adenoidectomy Psychosocial/ Personal History: Patient is and lives by herself. She has home health. - Family History Father -: Heart disease Mother -: Hypertension, Stroke Notes: erin deirdre syndrome - Social History Alcohol use: No CD- Drugs: No Caffeine use: Yes Review of Systems Other: Except as documented, all other systems reviewed and negative. Physical Examination - Physical Exam General: Alert, In no apparent distress, Oriented x3, Obese HEENT: PERRLA, Mucous membr. moist/pink, Sclerae nonicteric Neck: Supple, JVD not distended Respiratory: Diminished (Bilateral), Other (Mild bibasilar Rales) Cardiovascular: Regular rate/rhythm, Normal S1 S2, No murmurs Capillary refill: <2 Seconds Gastrointestinal: Normal bowel sounds, Soft and benign, Non-distended, No tenderness Musculoskeletal: Other (Bilateral lower extremity lymphedema) Integumentary: No rashes, No cyanosis, Other Neurological: Normal speech, Normal strength at 5/5 x4 extr, Cranial nerves 3-12 intact Lymphatics: No axilla or inguinal lymphadenopathy - Studies Laboratory Data (last 24 hrs) 06/29/21 15:45: PT 12.1, INR 1.10 06/29/21 15:45: WBC 9.6, Hgb 12.8, Hct 39.0, Plt Count 205 06/29/21 15:45: Sodium 139, Potassium 3.5, BUN 13, Creatinine 0.96, Glucose 104, Magnesium 2.2, Total Bilirubin 0.7, AST 8 L, ALT 11 L, Alkaline Phosphatase 71, Lipase 42 L Assessment and Plan - Problems (Diagnosis) (1) NSTEMI (non-ST elevated myocardial infarction) Current Visit: Yes Status: Acute (2) Chest pain Current Visit: Yes Status: Acute (3) Lymphedema of lower extremity Current Visit: Yes Status: Acute (4) Obstructive sleep apnea Current Visit: Yes Status: Acute (5) Morbid obesity Current Visit: No Status: Chronic - Plan Patient chest pain appear pleuritic but her troponin is elevated. Admit patient to the medical floor Start full dose Lovenox for NSTEMI Metoprolol as it BP will tolerate Aspirin 81 mg daily Check lipid profile Obtain echocardiogram Cardiology consult Pain management as needed. IV Lasix for CHF. Intake and output monitoring, daily weights. - Advance Directives Does patient have a Living Will: No Does patient have a Durable POA for Healthcare: No
[2021-06-29] MEDS ORDERED: ACETAMINOPHEN 500 MG TAB PO PRN (18:08)
[2021-06-29] MEDS ORDERED: NITROGLYCERIN 0.4 MG/TAB SL PRN (18:08)
[2021-06-29] MEDS ORDERED: MORPHINE 2 MG/ML SYR ONE (18:14)
[2021-06-29] MEDS: MORPHINE 2 MG/ML SYR IV PRN ×2 (18:24→23:45)
[2021-06-29] MEDS ORDERED: ENOXAPARIN 100 MG/ML SYR SQ SCH (21:00)
[2021-06-29 22:16] LABS: Magnesium 1.9 mg/dL (1.8-2.4); Phosphorus 3.2 mg/dL (2.5-4.9)
[2021-06-30 02:05] LABS: Absolute Lymphocytes (CBC) 1.1 K/uL (0.7-4.9); Hematocrit 36.8 % (36.0-45.0); Lymphocytes % 12.4 % (15.3-44.8); MPV 9.3 fL (7.6-11.3); RBC Red Blood Cell Count 4.23 M/uL (3.86-4.86)
[2021-06-30 02:27] LABS: Potassium 3.4 mmol/L (3.5-5.1)
[2021-06-30] MEDS: Enoxaparin 120 MG/0.8 ML SYR SQ SCH ×2 (05:04→17:13)
[2021-06-30] MEDS: POTASSIUM CL SA 10 MEQ TAB PO ONE ×2 (09:00→09:26)
[2021-06-30] MEDS: ASPIRIN EC 81 MG TAB PO SCH (09:26)
[2021-06-30] MEDS ORDERED: POTASSIUM 25 MEQ EFFERV TAB PO ONE (09:38)
[2021-06-30] MEDS: MORPHINE 2 MG/ML SYR IV PRN (09:43)
[2021-06-30] MEDS ORDERED: POTASSIUM 25 MEQ EFFERV TAB ONE (09:45)
[2021-06-30] MEDS ORDERED: HOME MED 1 EA UNK (Diphenhydramine Hcl [Benadryl Allergy] 25 MG Tablet) PO PRN (13:48)
[2021-06-30] MEDS ORDERED: GABAPENTIN 300 MG CAP PO PRN (13:48)
--- NOTE | 2021-06-30 13:48 | P.PN ---
Subjective Date of Service: 06/30/21 Chief Complaint: Chest pain Patient reports intermittent chest pain. She stated this morning chest pain episode occurred after ambulating to the bathroom. She also reported intermittent shortness of breath. Physical Examination - Vital Signs Temperature: 98.2 F Blood Pressure: 132/59 Pulse: 70 Respirations: 20 Pulse Ox (%): 97 - Studies Laboratory Data (last 24 hrs) 06/29/21 15:45: PT 12.1, INR 1.10 06/29/21 15:45: WBC 9.6, Hgb 12.8, Hct 39.0, Plt Count 205 06/29/21 15:45: Sodium 139, Potassium 3.5, BUN 13, Creatinine 0.96, Glucose 104, Magnesium 2.2, Total Bilirubin 0.7, AST 8 L, ALT 11 L, Alkaline Phosphatase 71, Lipase 42 L Assessment And Plan - Current Problems (Diagnosis) (1) NSTEMI (non-ST elevated myocardial infarction) Current Visit: Yes Status: Acute (2) Chest pain Current Visit: Yes Status: Acute (3) Lymphedema of lower extremity Current Visit: Yes Status: Acute (4) Obstructive sleep apnea Current Visit: Yes Status: Acute (5) Morbid obesity Current Visit: No Status: Chronic - Plan Physical Exam General: Alert, In no apparent distress, Oriented x3, Obese HEENT: PERRLA, Mucous membr. moist/pink, Sclerae nonicteric Neck: Supple, JVD not distended Respiratory: Diminished, Mild bibasilar Rales. Cardiovascular: Regular rate/rhythm, Normal S1 S2, No murmurs Gastrointestinal: Normal bowel sounds, Soft and benign, Non-distended, No tenderness Musculoskeletal: Bilateral lower extremity lymphedema. Integumentary: No rashes, No cyanosis, Other Neurological: Normal speech, Normal strength at 5/5 x4 extr, Cranial nerves 3-12 intact Lymphatics: No axilla or inguinal lymphadenopathy Patient with persistent chest pain. Troponin trended down. Unstable angina/NSTEMI. There may be a component of pleuritic chest pain. Continue full dose Lovenox Metoprolol if her BP will tolerate it. Aspirin 81 mg daily Echocardiogram is pending Cardiology consulted Pain management as needed. IV Lasix for CHF. Intake and output monitoring, daily weights. Reconcile and continue other home medications.
[2021-06-30] MEDS ORDERED: HOME MED 1 EA UNK [DULERA 200/5 (MOMETASONE/FORMOTEROL) INHALER] IH PRN (14:24)
[2021-06-30] MEDS: FUROSEMIDE 40 MG/4 ML VIAL IV SCH (17:13)
--- NOTE | 2021-06-30 19:33 | CON ---
Date of Consultation: 06/30/2021 Reason For Consultation: Shortness of breath and chest pain. 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 Past Medical History: As outlined above in the HPI plus history of pulmonary embolus. So again, she has lymphedema, COPD, pulmonary embolism, sleep apnea, CHF, hypertension. Medications: Refer to reconciliation sheet for detailed list. Allergies: LONG LIST OF ALLERGIES WAS REVIEWED. Family History: No premature coronary artery disease or cancer. Social History: She does not smoke or drink. Does not use any drugs. Review of Systems: All systems reviewed and they were negative except as mentioned in HPI. Physical Examination: Vital Signs: Reviewed. Head and Neck: Pupils are equal, reactive to light. Intact eye movements. No JVD. No cervical lym phadenopathy. Neck: Supple. Thyroid is not enlarged. Lungs: Clear to auscultation bilaterally. No rhonchi, rales, or crackles. No accessory muscle use. Heart: Regular rate and rhythm. No extra sounds. Abdomen: Soft, nontender. Bowel sounds positive. No organomegaly. No masses or hernia. No rigidi ty or rebound. Extremities: No clubbing or cyanosis. Intact pulses. Has lymphedema. Neurologic: Alert, awake, oriented x3. No focal deficits appreciated. Lymph Nodes: No cervical adenopathy. Investigations: Hemoglobin 11.9. Creatinine is 0.82. Troponin 128, then trended down to 81. The c hest x-ray; mild CHF. Assessment And Recommendations: 1.Shortness of breath and chest pain with borderline elevated troponin. The patient has history of pulmonary embolisms in the past and she had a gastrointestinal bleed with the Xarelto. At this point , I agree with therapeutic dose of Lovenox as this patient is highly allergic to iodine. Recommend t he V/Q scan to be done on Friday, and then, obtain an echocardiogram. Further cardiac workup with a stress test also is warranted. Recommend a Lexiscan nuclear stress test and ruling out PE is imperfer beltran as well. 2.Congestive heart failure with exacerbation. Obtain echo on Friday. Continue IV Lasix. Monitor B UN, creatinine, electrolytes. Thank you for the consult. /MICHELLE Voice ID: [id number] Report ID: [id number]
[2021-06-30] MEDS: CRANBERRY FRUIT EXTRACT PO SCH (21:00)
[2021-06-30] MEDS ORDERED: HOME MED 1 EA UNK (Lactobacillus Acidophilus [Acidophilus Lactobacilli] Capsule) PO SCH (21:00)
[2021-06-30] MEDS ORDERED: HOME MED 1 EA UNK (Lovastatin [Lovastatin] 20 MG Tablet) PO SCH (21:00)
[2021-06-30] MEDS: VIT C PO SCH (21:00)
[2021-06-30] MEDS: ATORVASTATIN 10 MG TAB PO SCH (21:26)
[2021-06-30] MEDS: LACTOBACILLUS/ACIDOPHILUS TAB PO SCH (21:26)
[2021-06-30] MEDS: OXYBUTYNIN CHLORIDE 5 MG TAB PO SCH (21:27)
[2021-06-30] MEDS: METOPROLOL TAR 25 MG TAB PO SCH (21:27)
[2021-07-01 01:21] VITALS: BMI 54.2
[2021-07-01] MEDS: Enoxaparin 120 MG/0.8 ML SYR SQ SCH ×2 (04:55→16:25)
[2021-07-01 05:29] LABS: Absolute Lymphocytes (CBC) 1.1 K/uL (0.7-4.9); Lymphocytes % 12.1 % (15.3-44.8); MPV 9.3 fL (7.6-11.3); RBC Red Blood Cell Count 4.02 M/uL (3.86-4.86)
[2021-07-01 05:50] LABS: Potassium 3.5 mmol/L (3.5-5.1)
[2021-07-01] MEDS: VIT C PO SCH ×2 (09:00→21:00)
[2021-07-01] MEDS: CRANBERRY FRUIT EXTRACT PO SCH ×2 (09:00→21:00)
[2021-07-01] MEDS: LACTOBACILLUS/ACIDOPHILUS TAB PO SCH ×2 (09:53→21:31)
[2021-07-01] MEDS: ASPIRIN EC 81 MG TAB PO SCH (09:53)
[2021-07-01] MEDS: FOLIC ACID 1 MG TABLET PO SCH (09:53)
[2021-07-01] MEDS: OXYBUTYNIN CHLORIDE 5 MG TAB PO SCH ×2 (09:53→21:31)
[2021-07-01] MEDS: METOPROLOL TAR 25 MG TAB PO SCH ×2 (09:53→21:32)
[2021-07-01] MEDS: FUROSEMIDE 40 MG/4 ML VIAL IV SCH ×2 (09:54→16:24)
[2021-07-01] MEDS: MORPHINE 2 MG/ML SYR IV PRN (11:55)
--- NOTE | 2021-07-01 12:46 | P.PN ---
Subjective Date of Service: 07/01/21 Chief Complaint: Chest pain Patient complaining of intermittent chest pain. She also reports shortness of breath with exertion. Physical Examination - Vital Signs Temperature: 98.2 F Blood Pressure: 116/56 Pulse: 69 Respirations: 22 Pulse Ox (%): 93 Assessment And Plan - Current Problems (Diagnosis) (1) NSTEMI (non-ST elevated myocardial infarction) Current Visit: Yes Status: Acute (2) Chest pain Current Visit: Yes Status: Acute (3) Lymphedema of lower extremity Current Visit: Yes Status: Acute (4) Obstructive sleep apnea Current Visit: Yes Status: Acute (5) Morbid obesity Current Visit: No Status: Chronic - Plan Physical Exam General: Alert, In no apparent distress, Oriented x3, Obese HEENT: PERRLA, Mucous membr. moist/pink, Sclerae nonicteric Neck: Supple, JVD not distended Respiratory: Diminished, Mild bibasilar Rales. Cardiovascular: Regular rate/rhythm, Normal S1 S2, No murmurs Gastrointestinal: Normal bowel sounds, Soft and benign, Non-distended, No tenderness Musculoskeletal: Bilateral lower extremity lymphedema. Integumentary: No rashes, No cyanosis. Neurological: Normal speech, no focal motor deficit. Plan Troponin trended down. Unstable angina/NSTEMI. There may be a component of pleuritic chest pain. Continue full dose Lovenox Metoprolol if her BP will tolerate it. Aspirin 81 mg daily Echocardiogram is pending Cardiology is following. Need to rule out PE with VQ scan on Friday. Cardiology is planning cardiac catheterization pending VQ scan results. Pain management as needed. Continue IV Lasix for CHF. Intake and output monitoring, daily weights. Monitor and correct electrolytes as needed.
[2021-07-01] MEDS: ATORVASTATIN 10 MG TAB PO SCH (21:32)
[2021-07-02] MEDS: Enoxaparin 120 MG/0.8 ML SYR SQ SCH ×2 (03:28→17:25)
[2021-07-02 06:05] LABS: Absolute Lymphocytes (CBC) 1.2 K/uL (0.7-4.9); Lymphocytes % 14.4 % (15.3-44.8); MPV 9.4 fL (7.6-11.3); RBC Red Blood Cell Count 4.27 M/uL (3.86-4.86)
[2021-07-02 06:25] LABS: Potassium 3.4 mmol/L (3.5-5.1)
[2021-07-02] MEDS: VIT C PO SCH ×2 (09:00→21:00)
[2021-07-02] MEDS: CRANBERRY FRUIT EXTRACT PO SCH ×2 (09:00→21:00)
--- NOTE | 2021-07-02 10:06 | RAD REPORT ---
EXAM DESCRIPTION: NM - Vent Perfusion VQ Scan - 07/02/2021 8:56 am CLINICAL HISTORY: Shortness of breath and chest pain COMPARISON: Portable chest 06/29/2021, V/Q scan 02/02/2021 TECHNIQUE: The patient was administered 6.5 mCi Xenon 133 gas with posterior projection inspiration, equilibrium, and washout views obtained. The patient was then administered 20.1 mCi Tc-99m MAA label ed RBCs followed by standard 8 view protocol. FINDINGS: Focal defect is present in the medial inferior left lung field on the ventilation sequenci ng. This is similar or only slightly larger than seen on the 2020 comparison. No other significant ve ntilation defects seen on this examination. There is moderate severity bilateral air trapping present . This matches the 2020 study. Chest film of June 29 shows no significant lung parenchymal process. Large perfusion defects are present involving the mid and lower left lung field not present on the pr ior V/Q scan. This involves primarily the anterior aspect of the mid and lower left lung field. Large profusion defect is present in the posterior mid right lung field. Findings telephoned to the second floor charge nurse 10:02 a.m.. IMPRESSION: High probability V/Q scan for bilateral pulmonary emboli. Moderate severity bilateral lung field air trapping.
[2021-07-02] MEDS: ASPIRIN EC 81 MG TAB PO SCH (10:17)
[2021-07-02] MEDS: FUROSEMIDE 40 MG/4 ML VIAL IV SCH ×2 (10:17→17:25)
[2021-07-02] MEDS: FOLIC ACID 1 MG TABLET PO SCH (10:18)
[2021-07-02] MEDS: LACTOBACILLUS/ACIDOPHILUS TAB PO SCH ×2 (10:18→21:35)
[2021-07-02] MEDS: OXYBUTYNIN CHLORIDE 5 MG TAB PO SCH ×2 (10:18→21:36)
[2021-07-02] MEDS: METOPROLOL TAR 25 MG TAB PO SCH ×2 (10:18→21:00)
--- NOTE | 2021-07-02 13:17 | ECHO ---
HEIGHT: 5 ft 4 in WEIGHT: 316 lb 0 oz DATE OF STUDY: 07/02/[address]: apryl nash 2-DIMENSIONAL: YES M.MODE: YES DOPPLER: YES COLOR FLOW: YES TDS: YES PORTABLE: YES DEFINITY: NO BUBBLE STUDY: NO DIAGNOSIS: NSTEMI CARDIAC HISTORY: CATHERIZATION: NO SURGERY: NO PROSTHETIC VALVE: NO PACEMAKER: NO MEASUREMENTS (cm) DIASTOLIC (NORMALS) SYSTOLIC (NORMALS) IVSd 1.2 (0.6-1.2) LA Diam 2.3 (1.9-4.0) LVEF 55-60% LVIDd 3.8 (3.5-5.7) LVIDs 2.8 (2.0-3.5) %FS 25% LVPWd 1.2 (0.6-1.2) Ao Diam 2.4 (2.0-3.7) 2 DIMENSIONAL ASSESSMENT: RIGHT ATRIUM: NOT WELL SEEN LEFT ATRIUM: NORMAL RIGHT VENTRICLE: NOT WELL SEEN LEFT VENTRICLE: NORMAL TRICUSPID VALVE: MITRAL VALVE: NORMAL PULMONIC VALVE: NORMAL AORTIC VALVE: NORMAL PERICARDIAL EFFUSION: NONE AORTIC ROOT: NORMAL LEFT VENTRICULAR WALL MOTION: NORMAL DOPPLER/COLOR FLOW: SEE BELOW COMMENTS: NORMAL LEFT VENTRICULAR EJECTION FRACTION 55-60%. MILD TRICUSPID REGURGITATION. NORMAL WALL MOTION. UNABLE TO EVALUATE RIGHT VENTRICULAR FUNCTION ON SIZE DUE TO POOR WINDOWS. TECHNOLOGIST: Elena SCHILLING
[2021-07-02] MEDS: MORPHINE 2 MG/ML SYR IV PRN (17:26)
--- NOTE | 2021-07-02 19:38 | P.PN ---
Subjective Date of Service: 07/02/21 Chief Complaint: Chest pain VQ scan done reporting high probability for pulm embolism. Patient reports occasional streaks of blood around his suprapubic stoma. Physical Examination - Vital Signs Temperature: 98.8 F Blood Pressure: 110/59 Pulse: 73 Respirations: 18 Pulse Ox (%): 93 Assessment And Plan - Current Problems (Diagnosis) (1) NSTEMI (non-ST elevated myocardial infarction) Current Visit: Yes Status: Acute (2) Chest pain Current Visit: Yes Status: Acute (3) Lymphedema of lower extremity Current Visit: Yes Status: Acute (4) Obstructive sleep apnea Current Visit: Yes Status: Acute (5) Morbid obesity Current Visit: No Status: Chronic - Plan Physical Exam General: Alert, In no apparent distress, Oriented x3. HEENT: PERRLA, Mucous membr. moist/pink, Sclerae nonicteric Neck: Supple, JVD not distended Respiratory: Diminished, Mild bibasilar Rales. Cardiovascular: Regular rate/rhythm, Normal S1 S2, No murmurs Gastrointestinal: Normal bowel sounds, Soft and benign, Non-distended, No tenderness Musculoskeletal: Bilateral lower extremity lymphedema. Integumentary: No rashes, No cyanosis. Neurological: Normal speech, no focal motor deficit. Plan Troponin trended down. Unstable angina/NSTEMI. VQ scan demonstrating high probability for pulm embolism Continue full dose Lovenox Metoprolol if her BP will tolerate it. Aspirin 81 mg daily Echocardiogram is unremarkable with normal EF. Poor acoustic window so right ventricle was not assessed. Dr. Ann to follow regarding cardiac catheterization. Patient informed she would be on chronic anticoagulation therapy. She was previously on Xarelto but she reduce the dose to 1 tablet every other day and then subsequently discontinued taking it. Pain management as needed. Continue IV Lasix for CHF and fluid retention Intake and output monitoring, daily weights. Monitor and correct electrolytes as needed.
[2021-07-02] MEDS: ATORVASTATIN 10 MG TAB PO SCH (21:36)
--- NOTE | 2021-07-02 23:15 | PN ---
Date of Progress Note: 07/02/2021 The patient was seen today, 07/02/2021, in followup. She had come in with pleuritic chest pain. She has a history of lymphedema, sleep apnea, COPD, and history of PE. The patient has improved drastic ally on IV Lasix. Her shortness of breath has improved. Her lymphedema is chronic. There is a plan for Lexiscan eventually, but today she had a V/Q scan, so we will have to wait at least 48 hours for that. Echocardiogram remains pending. We will continue to follow her. BRET/MICHELLE Voice ID: [id number] Report ID: [id number]
[2021-07-03] MEDS: DIPHENHYDRAMINE 25 MG TAB/CAP PO PRN ×2 (03:27→20:56)
[2021-07-03] MEDS: Enoxaparin 120 MG/0.8 ML SYR SQ SCH ×2 (03:27→17:30)
[2021-07-03 05:28] LABS: Absolute Lymphocytes (CBC) 1.1 K/uL (0.7-4.9); Lymphocytes % 14.9 % (15.3-44.8); MPV 9.5 fL (7.6-11.3); RBC Red Blood Cell Count 4.17 M/uL (3.86-4.86)
--- NOTE | 2021-07-03 06:24 | P.PN ---
Date of Service: 07/03/21 Subjective: no acute events overnight. reports LANCE when getting up to bathroom hypoxia noted to 70s/80s with exertion on room air leg swelling improved no other new / worsening symptoms ROS: 10 point review of systems as noted above, otherwise negative Physical Exam: Gen: Alert, oriented x3, NAD HEENT: PERRL, normal conjunctiva Pulm: clear bilaterally, nonlabored respirations on 4L NC CV: regular rate and rhythm, chronic b/l lymphedema Abd: soft, NTND Integumentary: b/l lower extremities with lymphedema dressings in place Neuro: normal speech/affect Problem List: Chest Pain NSTEMI acute hypoxemic respiratory failure secondary to PE acute on chronic diastolic CHF exacerbation, secondary to PE chronic COPD Pulmonary Embolus chronic lymphedema of b/l lower extremities LENO Morbid Obesity fibromyalgia chronic suprapubic catheter Troponin trended down. suspect secondary to PE VQ scan: high probability for PE continue full dose lovenox for now plan for transition to PO eliquis if insurance approves. Patient was previously on xarelto, but stopped secondary to hematuria cardiology recommends no further cardiac workup this hospitalization. may benefit from outpatient stress testing echo: unremarkable, but poor acoustic windows to fully assess RV pain as needed continue lasix wean O2 as tolerated, will likely need home O2 VTE: lovenox Code: full Dispo: home, ~2 days
[2021-07-03 06:56] LABS: Potassium 3.3 mmol/L (3.5-5.1)
[2021-07-03] MEDS: METOPROLOL TAR 25 MG TAB PO SCH ×2 (09:00→20:57)
[2021-07-03] MEDS: CRANBERRY FRUIT EXTRACT PO SCH ×2 (09:00→20:58)
[2021-07-03] MEDS: VIT C PO SCH ×2 (09:00→20:58)
[2021-07-03] MEDS ORDERED: POTASSIUM 25 MEQ EFFERV TAB PO ONE ×2 (10:00→21:00)
[2021-07-03] MEDS: FUROSEMIDE 40 MG TABLET PO SCH ×2 (10:10→17:30)
[2021-07-03] MEDS: FOLIC ACID 1 MG TABLET PO SCH (10:10)
[2021-07-03] MEDS: OXYBUTYNIN CHLORIDE 5 MG TAB PO SCH ×2 (10:12→21:00)
[2021-07-03] MEDS: LACTOBACILLUS/ACIDOPHILUS TAB PO SCH ×2 (10:12→20:56)
[2021-07-03] MEDS: ASPIRIN EC 81 MG TAB PO SCH (10:12)
--- NOTE | 2021-07-03 11:12 | P.CNS ---
Date of Consult: 07/03/21 Chief Complaint: Chest pain History of Present Illness: The patient is a 58-year-old female with past medical history significant of morbid obesity, cranial chronic bilateral lower extremity lymphedema with venous stasis ulcerations, congestive heart failure, CAD, and recurrent urinary tract infections with indwelling Pedroza catheter who presented to the emergency department secondary to chest pain. She states the pain is worse with inspiration. Lung V/Q showed high probability for bilateral pulmonary emboli. Elevated troponins. Patient afebrile, no white count. Urine culture obtained on 06/29 grew Proteus Mirabella's multidrug-resistant. Of note patient was recently hospitalized from 05/16-05/2016 secondary to multidrug-resistant Proteus Mirabella's urinary tract infection and was treated with a full 7-day course of Invanz. Infectious disease has been consulted to manage patient's antibiotic regimen. We will withhold treating at this time as patient is asymptomatic with no systemic signs and is likely colonized. Allergies amoxicillin [From Augmentin] Allergy (Severe, Verified 09/16/19 23:49) diarrhea, nausea, vomiting ceftriaxone [From Rocephin] Allergy (Severe, Verified 09/16/19 23:49) Itching/Hives/Rash fentanyl Allergy (Severe, Verified 09/16/19 23:49) Itching/Hives/Rash iodine Allergy (Severe, Verified 09/16/19 23:49) Unknown lincomycin [From Lincocin] Allergy (Severe, Verified 09/16/19 23:49) rashes,headaches pneumococcal vaccine [From Pneumovax 23] Allergy (Severe, Verified 09/16/19 23:49) sick more than a week sulfamethoxazole [From Bactrim] Allergy (Severe, Verified 09/16/19 23:49) Anaphylaxis trifluoperazine [From Stelazine] Allergy (Severe, Verified 09/16/19 23:49) itching and rashes vancomycin Allergy (Severe, Verified 09/16/19 23:49) renal failure soap [From Betadine] Allergy (Mild, Verified 09/16/19 23:49) Hives/Rash Sulfa (Sulfonamide Antibiotics) Allergy (Mild, Verified 09/16/19 23:49) Anaphylaxis aloe vera Allergy (Verified 09/16/19 23:49) Itching celery Allergy (Verified 09/16/19 23:49) Nausea/Vomiting Macrolide Antibiotics Allergy (Verified 09/16/19 23:49) Itching/Hives/Rash FLU VACCINE Allergy (Severe, Uncoded 09/16/19 23:49) sick for more than a week aloe vera Allergy (Uncoded 09/16/19 23:49) Unknown hall peppers Allergy (Uncoded 09/16/19 23:49) Nausea/Vomiting celery Allergy (Uncoded 09/16/19 23:49) Unknown FLU VAC Allergy (Uncoded 09/16/19 23:49) Unknown peppers Allergy (Uncoded 09/16/19 23:49) Unknown Home Medications: Aspirin [Adult Low Dose Aspirin EC] 81 mg PO DAILY 06/30/21 Benzonatate [Tessalon Perle] 100 mg PO TID PRN 06/30/21 Cranberry Fruit Extract/Vit C [Azo Cranberry Softgel] 1 cap PO BID 06/30/21 Diphenhydramine HCl [Benadryl Allergy] 1 tab PO BEDTIME PRN PRN 06/30/21 Folic Acid 1 mg PO DAILY 06/30/21 Furosemide [Lasix] 40 mg PO BID 06/30/21 Gabapentin 300 mg PO TID PRN 06/30/21 Hydrocodone Bit/Acetaminophen [Hydrocodon-Acetaminoph 7.5-325] 1 tab PO BID PRN 06/30/21 Lactobacillus Acidophilus [Acidophilus Lactobacilli] 1 each PO BID 06/30/21 Lovastatin 20 mg PO BEDTIME 06/30/21 Metoprolol Tartrate 25 mg PO BID 06/30/21 Mometasone/Formoterol [Dulera 200 Mcg/5 Mcg Inhaler] 2 puff PO BID PRN 06/30/21 Nystatin Powder [Mycostatin (Powder)] 1 gm TP DAILY PRN 06/30/21 Oxybutynin Chloride 5 mg PO BID 06/30/21 - Past Medical/Surgical History Diabetic: No -: Lymphedema - bilateral leg -: Morbid obesity with Hx of Lap. Band -: Peripheral neuropathy -: Osteoarthritis -: mild COPD -: mild eczema -: Depression -: Sleep apnea -: CHF -: CRE -: hypertension -: frequent UTIs -: -: Lap band 2008 -: Tonsillectomy and adenoidectomy Psychosocial/ Personal History: Patient is and lives by herself. She has home health. - Family History Father Medical History: Heart disease Mother Medical History: Hypertension, Stroke Notes: erin deirdre syndrome - Social History Smoking Status: Unknown if ever smoked Alcohol use: No CD- Drugs: No Caffeine use: Yes Place of Residence: Home Review of Systems General: Unremarkable Eyes: Unremarkable ENT: Unremarkable Respiratory: SOB with Excertion Cardiovascular: Chest Pain Gastrointestinal: Unremarkable Genitourinary: Unremarkable Musculoskeletal: Unremarkable Physical Examination Temp Pulse Resp BP Pulse Ox 98.2 F 72 16 109/56 L 91 07/03/21 08:00 07/03/21 10:10 07/03/21 08:00 07/03/21 10:10 07/03/21 08:00 General: Alert, Oriented x3 HEENT: Atraumatic Neck: 2+ carotid pulse no bruit Respiratory: Clear to auscultation bilaterally, Normal air movement Cardiovascular: Regular rate/rhythm Capillary refill: <2 Seconds Gastrointestinal: Normal bowel sounds, Soft and benign Musculoskeletal: No clubbing, No swelling Integumentary: Other (Bilateral lower extremity edema with stasis dermatitis. Bilateral upper thigh deep tissue injuries with minimal tissue breakdown.) Conclusions/Impression: Assessment/plan UTI Urine culture obtained on 06/29 grew Proteus miribilis. Patient has long history of Proteus miribilis UTIS. We will withhold treating at this time as patient is asymptomatic with no systemic signs and is likely colonized. I have discussed these findings/treatment plan with the patient and she is in agreement. Chest pain Pleuritic in nature Lung VQ scan showed high probability for bilateral pulmonary emboli Medical management per primary/pulmonary team Anemia Continue to monitor H&H Infectious disease will sign off at this time. Please reconsult if needed. Plan of care discussed with Dr. Rodriguez Thank you for consultation
[2021-07-03] MEDS: MORPHINE 2 MG/ML SYR IV PRN ×2 (14:43→20:58)
--- NOTE | 2021-07-03 15:12 | PN ---
Date of Progress Note: 07/03/2021 Ms. Ortiz has been followed for shortness of breath. V/Q scan showed high probability of pulmonary embolus. Has been taking Xarelto before and has had problem with bleeding in the past. Her echocard iogram is unremarkable. The patient is definitely not a candidate for Lexiscan at this point. We wi ll do that later as an outpatient. Discussed the case with Dr. Bettencourt. The patient should be placed on Eliquis. She had been on Lovenox. She can go home whenever it is okay with them. We will see he r in the office as an outpatient. BRET/MICHELLE Voice ID: [id number] Report ID: [id number]
[2021-07-03] MEDS: HYDROCODONE/APAP 7.5/325 MG TAB PO PRN (17:30)
[2021-07-03] MEDS: ATORVASTATIN 10 MG TAB PO SCH (20:58)
[2021-07-04] MEDS: Enoxaparin 120 MG/0.8 ML SYR SQ SCH ×2 (03:38→17:00)
[2021-07-04] MEDS: MORPHINE 2 MG/ML SYR IV PRN (03:58)
[2021-07-04 05:23] LABS: Hematocrit 35.8 % (36.0-45.0); MPV 9.3 fL (7.6-11.3); RBC Red Blood Cell Count 4.11 M/uL (3.86-4.86)
[2021-07-04 05:50] LABS: Magnesium 2.1 mg/dL (1.8-2.4); Potassium 3.8 mmol/L (3.5-5.1)
--- NOTE | 2021-07-04 06:48 | P.PN ---
Date of Service: 07/04/21 Subjective: no acute events overnight feels more tired / not as well as yesterday no specific worsening of symptoms, just states overall not feeling as well intermittent chest discomfort with deep inspiration ROS: 10 point review of systems as noted above, otherwise negative Physical Exam: Gen: Alert, oriented x3, NAD HEENT: PERRL, normal conjunctiva Pulm: clear bilaterally, nonlabored respirations on 2L NC CV: regular rate and rhythm, chronic b/l lymphedema Abd: soft, NTND Integumentary: b/l lower extremities with lymphedema dressings in place, tender Neuro: normal speech/affect Problem List: acute hypoxemic respiratory failure secondary to PE acute on chronic diastolic CHF exacerbation, secondary to PE Chest pain secondary to PE NSTEMI likely secondary to PE Pulmonary Embolus chronic COPD chronic lymphedema of b/l lower extremities LENO Morbid Obesity fibromyalgia chronic suprapubic catheter Troponin trended down. suspect secondary to PE VQ scan: high probability for PE continue full dose lovenox for now plan for transition to PO eliquis if insurance approves. will send prescription today Patient was previously on xarelto, but stopped secondary to hematuria cardiology recommends no further cardiac workup this hospitalization. may benefit from outpatient stress testing echo: unremarkable, but poor acoustic windows to fully assess RV pain medication as needed continue lasix - changed to PO from IV wean O2 as tolerated, will likely need home O2 daily room air sats ordered VTE: lovenox Code: full Dispo: home, ~1-2 days, likely needs home O2
[2021-07-04] MEDS: VIT C PO SCH ×2 (09:00→21:00)
[2021-07-04] MEDS: OXYBUTYNIN CHLORIDE 5 MG TAB PO SCH ×2 (09:00→21:00)
[2021-07-04] MEDS: CRANBERRY FRUIT EXTRACT PO SCH ×2 (09:00→21:00)
[2021-07-04] MEDS: METOPROLOL TAR 25 MG TAB PO SCH ×2 (09:00→21:00)
[2021-07-04] MEDS: ASPIRIN EC 81 MG TAB PO SCH (10:33)
[2021-07-04] MEDS: HYDROCODONE/APAP 7.5/325 MG TAB PO PRN ×2 (10:33→23:22)
[2021-07-04] MEDS: LACTOBACILLUS/ACIDOPHILUS TAB PO SCH ×2 (10:34→21:03)
[2021-07-04] MEDS: FUROSEMIDE 40 MG TABLET PO SCH ×2 (10:34→17:00)
[2021-07-04] MEDS: FOLIC ACID 1 MG TABLET PO SCH (10:34)
[2021-07-04] MEDS ORDERED: POTASSIUM 25 MEQ EFFERV TAB PO ONE (14:00)
[2021-07-04] MEDS: ATORVASTATIN 10 MG TAB PO SCH ×2 (21:02→21:03)
[2021-07-04] MEDS: DIPHENHYDRAMINE 25 MG TAB/CAP PO PRN (21:03)
[2021-07-05] MEDS: Enoxaparin 120 MG/0.8 ML SYR SQ SCH ×2 (04:47→17:24)
[2021-07-05 06:22] LABS: Magnesium 2.1 mg/dL (1.8-2.4); Potassium 3.6 mmol/L (3.5-5.1)
[2021-07-05] MEDS ORDERED: BENZONATATE 100 MG CAP PO PRN (06:41)
--- NOTE | 2021-07-05 06:42 | P.PN ---
Date of Service: 07/05/21 Subjective: feels chest pain radiating from right to left this morning swelling improving, breathing improving dyspneic and hypoxic with exertion ROS: 10 point review of systems as noted above, otherwise negative Physical Exam: Gen: Alert, oriented x3, NAD HEENT: PERRL, normal conjunctiva Pulm: clear bilaterally, nonlabored respirations on 2L NC at rest CV: regular rate and rhythm, chronic b/l lymphedema Abd: soft, NTND Integumentary: b/l lower extremities with lymphedema dressings in place, tender Neuro: normal speech/affect Problem List: acute hypoxemic respiratory failure secondary to PE acute on chronic diastolic CHF exacerbation, secondary to PE Chest pain secondary to PE NSTEMI likely secondary to PE Pulmonary Embolus chronic COPD chronic lymphedema of b/l lower extremities LENO Morbid Obesity fibromyalgia chronic suprapubic catheter Troponin trended down. suspect secondary to PE VQ scan: high probability for PE continue full dose lovenox for now eliquis is too expensive per patient. Patient was previously on xarelto, but stopped secondary to hematuria on further discussion sounds like patient's hematuria may have been more traumatic - states bag/catheter was slightly pulled when showering at home cardiology recommends no further cardiac workup this hospitalization. may benefit from outpatient stress testing echo: unremarkable, but poor acoustic windows to fully assess RV pain medication as needed continue lasix - changed to PO from IV wean O2 as tolerated, home O2 ordered urine growing two bacteria, ID consulted and recommend no antibiotics, this seems to be colonization. patient afebrile, no leukocytosis, asymptomatic patient states she missed appointment with urologist this week due to being hospitalized VTE: lovenox Code: full Dispo: home, anticipate tomorrow
--- NOTE | 2021-07-05 07:48 | RAD REPORT ---
EXAM DESCRIPTION: Chrissy Single View07/05/2021 4:54 am CLINICAL HISTORY: Chest pain COMPARISON: June 29, 2021 FINDINGS: Bilateral pulmonary opacities appear mostly resolved. Upper lobe vessels prominent indicative of pulmonary venous hypertension. The heart remains enlarged
[2021-07-05] MEDS: ASPIRIN EC 81 MG TAB PO SCH (08:53)
[2021-07-05] MEDS: FUROSEMIDE 40 MG TABLET PO SCH ×2 (08:53→17:24)
[2021-07-05] MEDS: FOLIC ACID 1 MG TABLET PO SCH (08:53)
[2021-07-05] MEDS: LACTOBACILLUS/ACIDOPHILUS TAB PO SCH ×2 (08:53→21:49)
[2021-07-05] MEDS: OXYBUTYNIN CHLORIDE 5 MG TAB PO SCH ×2 (08:54→21:50)
[2021-07-05] MEDS: METOPROLOL TAR 25 MG TAB PO SCH ×2 (09:00→21:49)
[2021-07-05] MEDS: VIT C PO SCH ×2 (09:00→21:00)
[2021-07-05] MEDS ORDERED: POTASSIUM CL SA 10 MEQ TAB PO ONE (09:00)
[2021-07-05] MEDS: CRANBERRY FRUIT EXTRACT PO SCH ×2 (09:00→21:00)
[2021-07-05] MEDS ORDERED: POTASSIUM 25 MEQ EFFERV TAB PO ONE (10:22)
[2021-07-05] MEDS ORDERED: FLEET ENEMA ADULT PR ONE (15:11)
[2021-07-05] MEDS: HYDROCODONE/APAP 7.5/325 MG TAB PO PRN (17:24)
[2021-07-05] MEDS: DIPHENHYDRAMINE 25 MG TAB/CAP PO PRN (21:55)
[2021-07-06] MEDS: Enoxaparin 120 MG/0.8 ML SYR SQ SCH (05:03)
[2021-07-06 06:11] LABS: Hematocrit 35.7 % (36.0-45.0); RBC Red Blood Cell Count 4.12 M/uL (3.86-4.86)
[2021-07-06 06:23] LABS: Magnesium 2.1 mg/dL (1.8-2.4); Potassium 3.6 mmol/L (3.5-5.1)
--- NOTE | 2021-07-06 06:50 | P.PN ---
Date of Service: 07/06/21 Subjective: ROS: 10 point review of systems as noted above, otherwise negative Physical Exam: Gen: Alert, oriented x3, NAD HEENT: PERRL, normal conjunctiva Pulm: clear bilaterally, nonlabored respirations on 2L NC at rest CV: regular rate and rhythm, chronic b/l lymphedema Abd: soft, NTND Integumentary: b/l lower extremities with lymphedema dressings in place, tender Neuro: normal speech/affect Problem List: acute hypoxemic respiratory failure secondary to PE acute on chronic diastolic CHF exacerbation, secondary to PE Chest pain secondary to PE NSTEMI likely secondary to PE Pulmonary Embolus chronic COPD chronic lymphedema of b/l lower extremities LENO Morbid Obesity fibromyalgia chronic suprapubic catheter Troponin trended down. suspect secondary to PE VQ scan: high probability for PE continue full dose lovenox for now eliquis is too expensive per patient. Patient was previously on xarelto, but stopped secondary to hematuria on further discussion sounds like patient's hematuria may have been more traumatic - states bag/catheter was slightly pulled when showering at home cardiology recommends no further cardiac workup this hospitalization. may benefit from outpatient stress testing echo: unremarkable, but poor acoustic windows to fully assess RV pain medication as needed continue lasix - changed to PO from IV wean O2 as tolerated, home O2 ordered urine growing two bacteria, ID consulted and recommend no antibiotics, this seems to be colonization. patient afebrile, no leukocytosis, asymptomatic patient states she missed appointment with urologist this week due to being hospitalized VTE: lovenox Code: full Dispo: home, anticipate tomorrow
--- NOTE | 2021-07-06 07:46 | EKG ---
Test Date: 2021-07-05 Test Time: 12:57:48 Maintenance Electrician: NASIM MEASUREMENT RESULTS: Intervals: Rate: 71 MS: 164 QRSD: 80 QT: 398 QTc: 432 [place]: P: 78 MS: 164 QRS: -65 T: 15 INTERPRETIVE STATEMENTS: Normal sinus rhythm Left anterior fascicular block T wave abnormality, consider anterior ischemia Abnormal ECG Compared to ECG 07/05/2021 12:55:47 Left anterior fascicular block now present T-wave abnormality now present Possible ischemia now present Atrial premature complex(es) no longer present Aberrant conduction of supraventricular beat(s) no longer present Left-axis deviation no longer present Myocardial infarct finding no longer present Electronically Signed On 07-06-21 07:42:29 CDT by Mamadou Peña
[2021-07-06] MEDS: CRANBERRY FRUIT EXTRACT PO SCH (09:00)
[2021-07-06] MEDS: VIT C PO SCH (09:00)
[2021-07-06] MEDS ORDERED: POTASSIUM CL SA 10 MEQ TAB PO ONE (09:00)
[2021-07-06] MEDS: METOPROLOL TAR 25 MG TAB PO SCH (09:00)
[2021-07-06 09:11] VITALS: TEMP 98
[2021-07-06] MEDS: ASPIRIN EC 81 MG TAB PO SCH (09:40)
[2021-07-06] MEDS: LACTOBACILLUS/ACIDOPHILUS TAB PO SCH (09:40)
[2021-07-06] MEDS: FUROSEMIDE 40 MG TABLET PO SCH (09:40)
[2021-07-06] MEDS: OXYBUTYNIN CHLORIDE 5 MG TAB PO SCH (09:40)
[2021-07-06] MEDS: FOLIC ACID 1 MG TABLET PO SCH (09:40)
[2021-07-06 11:41] VITALS: BP 117/56
--- NOTE | 2021-07-06 12:10 | P.PN ---
Subjective Date of Service: 07/06/21 Chief Complaint: Chest pain Patient seen and examined at bedside, doing well with no acute complaints. Review of Systems 10-point ROS is otherwise unremarkable Physical Examination - Vital Signs Temperature: 98.0 F Blood Pressure: 117/56 Pulse: 69 Respirations: 16 Pulse Ox (%): 90 - Studies Laboratory Last Values WBC 8.8 K/uL (4.3-10.9) 06/30/21 01:51 RBC 4.23 M/uL (3.86-4.86) 06/30/21 01:51 Hgb 11.9 g/dL (12.0-15.0) L 06/30/21 01:51 Hct 36.8 % (36.0-45.0) 06/30/21 01:51 MCV 87.0 fL (80-100) 06/30/21 01:51 MCH 28.1 pg (27.0-35.0) 06/30/21 01:51 MCHC 32.3 g/dL (32.0-36.0) 06/30/21 01:51 RDW 15.8 % (12.1-15.2) H 06/30/21 01:51 Plt Count 165 K/uL (152-406) 06/30/21 01:51 MPV 9.3 fL (7.6-11.3) 06/30/21 01:51 Neutrophils % 76.3 % (41.7-73.7) H 06/30/21 01:51 Lymphocytes % 12.4 % (15.3-44.8) L 06/30/21 01:51 Monocytes % 7.8 % (3.3-12.3) 06/30/21 01:51 Eosinophils % 2.6 % (0-4.4) 06/30/21 01:51 Basophils % 0.9 % (0-1.3) 06/30/21 01:51 Absolute Neutrophils 6.7 K/uL (1.8-8.0) 06/30/21 01:51 Absolute Lymphocytes 1.1 K/uL (0.7-4.9) 06/30/21 01:51 Absolute Monocytes 0.7 K/uL (0.1-1.3) 06/30/21 01:51 Absolute Eosinophils 0.2 K/uL (0-0.5) 06/30/21 01:51 Absolute Basophils 0.1 K/uL (0-0.5) 06/30/21 01:51 PT 12.1 SECONDS (9.5-12.5) 06/29/21 15:45 INR 1.10 06/29/21 15:45 Sodium 140 mmol/L (136-145) 06/30/21 01:51 Potassium 3.4 mmol/L (3.5-5.1) L 06/30/21 01:51 Chloride 109 mmol/L (98-107) H 06/30/21 01:51 Carbon Dioxide 26 mmol/L (21-32) 06/30/21 01:51 Anion Gap 8.4 mEq/L (5.0-15.0) 06/30/21 01:51 BUN 12 mg/dL (7-18) 06/30/21 01:51 Creatinine 0.81 mg/dL (0.55-1.3) 06/30/21 01:51 Estimated GFR 70 mL/min (=/>90) L 06/30/21 01:51 Glucose 111 mg/dL (74-106) H 06/30/21 01:51 Calcium 8.5 mg/dL (8.5-10.1) 06/30/21 01:51 Phosphorus 3.2 mg/dL (2.5-4.9) 06/29/21 21:40 Magnesium 1.9 mg/dL (1.8-2.4) 06/29/21 21:40 Total Bilirubin 0.7 mg/dL (0.2-1.0) 06/29/21 15:45 Direct Bilirubin 0.1 mg/dL (0-0.2) 06/29/21 15:45 AST 8 U/L (15-37) L 06/29/21 15:45 ALT 11 U/L (12-78) L 06/29/21 15:45 Alkaline Phosphatase 71 U/L (45-117) 06/29/21 15:45 Troponin I High Sens 81.9 pg/mL (<58.9) H* 06/30/21 01:51 NT-Pro-B Natriuret Pep 3693 pg/mL (<125) H 06/29/21 15:45 Serum Total Protein 7.4 g/dL (6.4-8.2) 06/29/21 15:45 Albumin 3.2 g/dL (3.4-5.0) L 06/29/21 15:45 Globulin 4.2 g/dL (2.3-3.5) H 06/29/21 15:45 Albumin/Globulin Ratio 0.8 (1.1-1.8) L 06/29/21 15:45 Triglycerides 100 mg/dL (<150) 06/29/21 21:40 Cholesterol 147 mg/dL (<200) 06/29/21 21:40 LDL Cholesterol, Calc 82 mg/dL (<130) 06/29/21 21:40 HDL Cholesterol 45 mg/dL (40-60) 06/29/21 21:40 Cholesterol/HDL Ratio 3.27 06/29/21 21:40 Lipase 42 U/L (73-393) L 06/29/21 15:45 Urine pH 8.5 (5.0-7.0) H 06/29/21 16:00 Ur Specific [place] 1.010 (1.005-1.030) 06/29/21 16:00 Glucose (UA)(Auto) Negative (Negative) 06/29/21 16:00 Urine Ketones Negative (Negative) 06/29/21 16:00 Urine Blood 1+ (Negative) H 06/29/21 16:00 Urine Nitrite Positive (Negative) H 06/29/21 16:00 Ur Leukocyte Esterase 3+ (Negative) H 06/29/21 16:00 Urine Total Protein Trace (Negative) H 06/29/21 16:00 SARS-CoV-2 Rap RNA(RT-PCR) Negative (NEGATIVE) 06/29/21 15:55 Microbiology Data (last 24 hrs): 06/29/21 16:00 Clean Catch Urine [place] Count - Final >100,000 CFU/ML. 06/29/21 16:00 Clean Catch Urine - Final Proteus Mirabilis Pseudomonas Aeruginosa Assessment And Plan - Plan Physical Exam: General: Alert, Oriented x3 HEENT: Atraumatic Neck: 2+ carotid pulse no bruit Respiratory: Clear to auscultation bilaterally, Normal air movement Cardiovascular: Regular rate/rhythm Capillary refill: <2 Seconds Gastrointestinal: Normal bowel sounds, Soft and benign Musculoskeletal: No clubbing, No swelling Integumentary: Other (Bilateral lower extremity edema with stasis dermatitis. Bilateral upper thigh deep tissue injuries with minimal tissue breakdown.) Conclusions/Impression: Assessment/plan UTI Urine culture obtained on 06/29 grew Proteus miribilis and Pseudomonas. Patient has long history of Proteus miribilis/polymicrobial UTIS. We will withhold treating at this time as patient is asymptomatic with no systemic signs and is likely colonized. I have discussed these findings/treatment plan with the patient and she is in agreement. Chest pain Pleuritic in nature Lung VQ scan showed high probability for bilateral pulmonary emboli Medical management per primary/pulmonary team Anemia Continue to monitor H&H Infectious disease will sign off at this time. Please reconsult if needed. Plan of care discussed with Dr. Rodriguez Thank you for consultation
[2021-07-06] MEDS ORDERED: POTASSIUM 25 MEQ EFFERV TAB PO ONE (13:30)
[2021-07-06 16:40] VITALS: O2SAT 98
[2021-07-06] MEDS ORDERED: RIVAROXABAN 20 MG TABLET PO SCH (17:00)
--- NOTE | 2021-07-06 21:07 | P.DS ---
Admission Date: 06/30/21 Discharge Date: 07/06/21 Disposition: DC HOME/HOME HEALTH CARE Discharge Condition: CRITICAL Reason for Admission: Chest pain Consultations: Infectious Disease - Dr. Hansen Procedures: Problem List: acute hypoxemic respiratory failure secondary to PE acute on chronic diastolic CHF exacerbation, secondary to PE Chest pain secondary to PE NSTEMI, demand ischemia, secondary to PE Pulmonary Embolus chronic COPD chronic lymphedema of b/l lower extremities LENO Morbid Obesity fibromyalgia chronic suprapubic catheter Brief History of Present Illness: 66yo F, PMH: chronic lymphedema, CoPD, LENO, h/o PE, chronic suprapubic catheter with recurrent UTIs. Presented to ED due to anterior chest pain, worse with deep breathing. Associated with shortness of breath. Work-up in the emergency department demonstrated elevated troponin. Chest x-ray demonstrated mild CHF. Patient hospitalized for further management. Hospital Course: Patient had mildly elevated but stable troponin levels. Cardiology was consulted. Patient was found to be volume overloaded and underwent VQ scan indicating high probabily of pulmonary emboli. Cardiology felt acute chf exacerbation and elevated troponin were secondary to pulmonary emboli. Recommend outpatient stress testing in near future. Patient had improvement of her symptoms with IV diuresis (transitioned to PO), and received therapeutic lovenox. She was still requiring oxygen intermittently on day of discharge, but able to ambulate with rest afterwards. There was no evidence of bleeding and hemoglobin remained stable. Patient has prior history of bleeding, and was previously on Xarelto for PE. Patient was prescribed eliquis, however not covered by insurance and cost prohibitive. Discussed coumadin and xarelto. It was decided to proceed with Xarelto. Patient to monitor for hematuria or any other signs of bleeding. Patient's urine was noted to grow 2 bacteria, however no evidence or symptoms of infection. Infectious disease was consulted and recommended no antibiotics and this is likely colonization. Patient remained afebrile during hosptilazation. Follow up: PCP within 1 week. Cardiology ~2 weeks to further discuss possible stress test Reports has to reschedule follow-up appointment with urology - missed appointment due to this hospitalization. Vital Signs/Physical Exam: Temp Pulse Resp BP Pulse Ox 98.0 F 69 16 117/56 L 90 L 07/06/21 12:10 07/06/21 12:10 07/06/21 12:10 07/06/21 12:10 07/06/21 12:10 Physical Exam: Gen: Alert, oriented x3, NAD HEENT: PERRL, normal conjunctiva Pulm: clear bilaterally, nonlabored respirations on 2L NC at rest CV: regular rate and rhythm, chronic b/l lymphedema Abd: soft, NTND Integumentary: b/l lower extremities with lymphedema dressings in place, tender Neuro: normal speech/affect Laboratory Data at Discharge: WBC 7.6 K/uL (4.3-10.9) 07/06/21 05:56 Hgb 11.8 g/dL (12.0-15.0) L 07/06/21 05:56 Hct 35.7 % (36.0-45.0) L 07/06/21 05:56 Plt Count 235 K/uL (152-406) 07/06/21 05:56 PT 12.1 SECONDS (9.5-12.5) 06/29/21 15:45 INR 1.10 06/29/21 15:45 Sodium 139 mmol/L (136-145) 07/06/21 05:56 Potassium 3.6 mmol/L (3.5-5.1) 07/06/21 05:56 BUN 10 mg/dL (7-18) 07/06/21 05:56 Creatinine 0.90 mg/dL (0.55-1.3) 07/06/21 05:56 Glucose 134 mg/dL (74-106) H 07/06/21 05:56 Phosphorus 3.2 mg/dL (2.5-4.9) 06/29/21 21:40 Magnesium 2.1 mg/dL (1.8-2.4) 07/06/21 05:56 Total Bilirubin 0.7 mg/dL (0.2-1.0) 06/29/21 15:45 AST 8 U/L (15-37) L 06/29/21 15:45 ALT 11 U/L (12-78) L 06/29/21 15:45 Alkaline Phosphatase 71 U/L (45-117) 06/29/21 15:45 Triglycerides 100 mg/dL (<150) 06/29/21 21:40 Cholesterol 147 mg/dL (<200) 06/29/21 21:40 HDL Cholesterol 45 mg/dL (40-60) 06/29/21 21:40 Cholesterol/HDL Ratio 3.27 06/29/21 21:40 Lipase 42 U/L (73-393) L 06/29/21 15:45 Home Medications: Aspirin [Adult Low Dose Aspirin EC] 81 mg PO DAILY 06/30/21 Benzonatate [Tessalon Perle*] 100 mg PO TID PRN 06/30/21 Cranberry Fruit Extract/Vit C [Azo Cranberry Softgel] 1 cap PO BID 06/30/21 Diphenhydramine HCl [Benadryl Allergy] 1 tab PO BEDTIME PRN PRN 06/30/21 Folic Acid 1 mg PO DAILY 06/30/21 Furosemide [Lasix] 40 mg PO BID 06/30/21 Gabapentin 300 mg PO TID PRN 06/30/21 Lactobacillus Acidophilus [Acidophilus Lactobacilli] 1 each PO BID 06/30/21 Lovastatin 20 mg PO BEDTIME 06/30/21 Metoprolol Tartrate 25 mg PO BID 06/30/21 Mometasone/Formoterol [Dulera 200 Mcg/5 Mcg Inhaler] 2 puff PO BID PRN 06/30/21 Nystatin Powder [Mycostatin (Powder)*] 1 gm TP DAILY PRN 06/30/21 Oxybutynin Chloride 5 mg PO BID 06/30/21 Hydrocodone 7.5/APAP 325 [Oceana 7.5/325 mg] 1 tab PO Q8H PRN #10 tab 07/06/21 Rivaroxaban [Xarelto] 20 mg PO DAILY AT SUPPER 30 Days #30 tablet 07/06/21 New Medications: Hydrocodone 7.5/APAP 325 [Oceana 7.5/325 mg] 1 tab PO Q8H PRN #10 tab PRN Reason: Pain Scale 5-7 (Moderate) Rivaroxaban [Xarelto] 20 mg PO DAILY AT SUPPER 30 Days #30 tablet Time spent managing pt's care (in minutes): 45
--- NOTE | 2021-07-12 13:28 | PN ---
Subjective: The patient is lying in bed. Denies any headache, nausea, vomiting, chest pain, abdomin al pain, constipation, or diarrhea. Objective: Vital Signs: Temperature 98, pulse 60, respirations 16, blood pressure 100/66. Lungs: Basal crackles. Heart: S1, S2. Regular. Abdomen: Soft. Bowel sounds present. Extremities: 2+ edema. Suprapubic catheter noted. Laboratory Data: Lab data shows WBC 7.5, hemoglobin 11.7, platelets 210. Chemistry shows sodium 139 , potassium 3.6, chloride 103, bicarb 31, BUN , creatinine is 0.9, glucose 123. Assessment And Plan: 1.Urinary tract infection. The patient with indwelling suprapubic catheter growing Proteus mirabili s and Pseudomonas aeruginosa, more than 100. Cannot be treated because of being asymptomatic. 2.Anemia of chronic disease. Continue with current treatment and supportive care. We will follow t he patient closely. NF/MODL Voice ID: [id number] Report ID: [id number]
== END 2021-07-06 15:30 | disposition home health service (06) | DRG 175 ==
LOC: ER 15:15 → OBSVTOIN 17:23 → INTOOBSV 17:23 → ERHOLD 17:23 → 2ND 20:29 → OBSVTOIN 06-30 13:39
PROVIDERS: ADMIT Internal Medicine; ATTEND Internal Medicine
DX: I26.99 Other pulmonary embolism without acute cor pulmonale (principal); J96.01 Acute respiratory failure with hypoxia; I50.33 Acute on chronic diastolic (congestive) heart failure; I21.A1 Myocardial infarction type 2; Z68.43 Body mass index [BMI] 50.0-59.9, adult; I11.0 Hypertensive heart disease with heart failure; J44.9 Chronic obstructive pulmonary disease, unspecified; I89.0 Lymphedema, not elsewhere classified; G47.33 Obstructive sleep apnea (adult) (pediatric); E66.01 Morbid (severe) obesity due to excess calories; M79.7 Fibromyalgia; D64.9 Anemia, unspecified; Z96.0 Presence of urogenital implants; Z20.822 Contact with and (suspected) exposure to COVID-19; Z88.0 Allergy status to penicillin; Z88.2 Allergy status to sulfonamides; Z87.440 Personal history of urinary (tract) infections
CPT/HCPCS: 36415; 71045; 78582; 80048; 80061; 80076; 81003; 83690; 83735; 83880; 84100; 84132; 84484; 85025; 85027; 85610; 87077; 87086; 87088; 87186; 93005; 93306; 94760; 96372; 96374; 97110; 97112; 97116; 97161; 97530; 99285; A9540; A9558; G0378; J1650; J1940; J2270; J3490; J7030; U0003

== ENCOUNTER 2021-08-01 17:08 | Emergency (ER) | payer OTHER ==
--- OUTSIDE RECORDS SUMMARY | 2021-08-01 17:10 | XMS REPORT | Continuity of Care Document ---
:1955 Author Organization [facility] t Address [address] [place] [address] Care Team Providers Name Role Phone Neri Gutierrez Attending Clinician Unavailable Problems This patient has no known problems. Allergies, Adverse Reactions, Alerts Allergy Allergy Status Severity Reaction(s) Onset Inactive Treating Comm ents Source Name Type Date Date Clinician sulfa Adverse Active Info Not Common Reaction Available [facility] Rocephin Adverse Active Info Not Commo n Reaction Available [facility] Macrobid Adverse Active Info Not Commo n Reaction Available [facility] Lincocin Adverse Active Info Not Commo n Reaction Available [facility] Fentanyl Adverse Active Info Not Commo n Reaction Available [facility] Betadine Adverse Active Info Not Commo n Reaction Available [facility] Augmenti Adverse Active Info Not Commo n n Reaction Available [facility] Aloe Adverse Active Info Not Common Vera Reaction Available [facility] Vancomyc Adverse Active Info Not Commo n in HCl Reaction Available [facility] Medications Ordered Filled Start Stop Current Ordering Indication Dosage Frequency Signature Comments Components Source Medication Medication Date Date Medication? Clinician (SIG) Name Name Metoprolol Metoprolol Yes Na Gutierrez 1 tablet Common Tartrate Tartrate 8-26 with food Sp dre 00:00: - [facility] Doxycycline Doxycycline 2017-03 Yes Na Gutierrez 1 capsule Common Hyclate Hyclate 1-21 Spirit 00:00: - [facility] Metoprolol Metoprolol Yes Na Gutierrez 1/2 tablet Common Tartrate Tartrate with food Sp [facility] Procedures This patient has no known procedures. Encounters Start End Encounter Admission Attending Care Care Encounter Source Date/Time Date/Time Type Type Clinicians Facility Department ID 2021-07-13 Outpatient Gutierrez, Na [facility] [id number] Common 12:02:00 [facility] 2021-07-12 Outpatient Gutierrez, Na [facility] ST[facility] [id number] Common 13:49:00 [facility] 2021-06-11 Outpatient Gutierrez, Na [facility] ST[facility] [id number] Common 08:32:00 [facility] 2021-06-05 Outpatient Gutierrez, Na [facility] ST[facility] [id number] Common 11:00:01 [facility] 2021-05-31 Outpatient Gutierrez, Na [facility]C ST[facility] [id number] Common 09:00:01 [facility] 2021-05-14 Outpatient Gutierrez, Na [facility] ST[facility] [id number] Common 09:20:01 [facility] 2021-04-26 Outpatient Gutierrez, Na [facility] ST[facility] [id number] Common 15:13:00 [facility] 2021-04-04 Outpatient Gutierrez, Na [facility]C ST[facility] [id number] Common 13:37:41 [id number] [facility] 2021-04-04 Outpatient Gutierrez, Na [facility] ST[facility] [id number] Common 13:27:35 [id number] [facility] 2021-04-04 Outpatient Gutierrez, Na [facility] ST[facility] [id number] Common 13:10:57 [id number] [facility] 2021-04-04 Outpatient Gutierrez, Na [facility]C ST[facility] [id number] Common 12:33:38 [id number] [facility] 2021-04-04 Outpatient Gutierrez, Na [facility] ST[facility] [id number] Common 12:33:09 [id number] [facility] 2021-04-04 Outpatient Gutierrez, Na [facility] ST[facility] [id number] Common 11:19:52 [id number] [facility] 2021-04-04 Outpatient Gutierrez, Na [facility] ST[facility] [id number] Common 11:19:18 [id number] [facility] 2021-07-19 2021-07-19 ambulatory [facility]C ST[facility] [id number] Common 00:00:00 00:00:00 [facility] 2021-07-13 2021-07-13 ambulatory [facility] ST[facility] [id number] Common 00:00:00 00:00:00 [facility] 2021-07-12 2021-07-12 ambulatory [facility]C ST[facility] [id number] Common 00:00:00 00:00:00 [facility] 2021-06-28 2021-06-28 ambulatory [facility]C ST[facility] [id number] Common 00:00:00 00:00:00 [facility] 2021-06-13 2021-06-13 ambulatory [facility] ST[facility] [id number] Common 00:00:00 00:00:00 [facility] 2021-06-12 2021-06-12 ambulatory [facility] ST[facility] [id number] Common 00:00:00 00:00:00 [facility] 2021-06-04 2021-06-04 ambulatory [facility]MLC ST[facility] [id number] Common 00:00:00 00:00:00 [facility] 2021-05-28 2021-05-28 ambulatory [facility] ST[facility] [id number] Common 00:00:00 00:00:00 [facility] 2021-05-14 2021-05-14 ambulatory [facility]C ST[facility] [id number] Common 00:00:00 00:00:00 [facility] 2021-04-26 2021-04-26 ambulatory [facility] ST[facility] [id number] Common 00:00:00 00:00:00 [facility] 2021-04-12 2021-04-12 ambulatory [facility] ST[facility] [id number] Common 00:00:00 00:00:00 [facility] 2021-03-30 2021-03-30 ambulatory [facility]C ST[facility] [id number] Common 00:00:00 00:00:00 [facility] 2021-02-27 2021-02-27 ambulatory [facility]C ST[facility] [id number] Common 00:00:00 00:00:00 [facility] 2021-01-01 2021-01-01 Outpatient [facility] [id number] Common 00:00:00 00:00:00 [facility] 2020-12-19 2020-12-19 Outpatient [facility] [id number] Common 00:00:00 00:00:00 [facility] 2020-10-26 2020-10-26 Outpatient [facility] ST[facility] [id number] Common 00:00:00 00:00:00 [facility] 2020-10-26 2020-10-26 Outpatient [facility] ST[facility] [id number] Common 00:00:00 00:00:00 [facility] 2020-10-19 2020-10-19 Outpatient [facility] ST[facility] [id number] Common 00:00:00 00:00:00 [facility] 2020-10-11 2020-10-11 Outpatient [facility] ST[facility] [id number] Common 00:00:00 00:00:00 [facility] 2020-09-27 2020-09-27 Outpatient [facility] [id number] Common 00:00:00 00:00:00 [facility] 2020-09-27 2020-09-27 Outpatient [facility] ST[facility] [id number] Common 00:00:00 00:00:00 [facility] 2020-09-22 2020-09-22 Outpatient [facility] ST[facility] [id number] Common 00:00:00 00:00:00 [facility] 2020-08-15 2020-08-15 Outpatient [facility] ST[facility] [id number] Common 00:00:00 00:00:00 [facility] 2020-07-21 2020-07-21 Outpatient [facility] ST[facility] [id number] Common 00:00:00 00:00:00 [facility] 2020-07-03 2020-07-03 Outpatient [facility] ST[facility] [id number] Common 00:00:00 00:00:00 [facility] 2020-06-30 2020-06-30 Outpatient [facility] [id number] Common 00:00:00 00:00:00 [facility] 2020-06-30 2020-06-30 Outpatient [facility] [id number] Common 00:00:00 00:00:00 [facility] 2020-06-27 2020-06-27 Outpatient [facility] ST[facility] [id number] Common 00:00:00 00:00:00 [facility] 2020-06-07 2020-06-07 Outpatient [facility] ST[facility] [id number] Common 00:00:00 00:00:00 [facility] 2020-05-29 2020-05-29 Outpatient [facility] ST[facility] [id number] Common 00:00:00 00:00:00 [facility] 2020-05-23 2020-05-23 Outpatient [facility] ST[facility] [id number] Common 00:00:00 00:00:00 [facility] 2020-05-11 2020-05-11 Outpatient [facility] [id number] Common 00:00:00 00:00:00 [facility] 2020-05-07 2020-05-07 Outpatient [facility] ST[facility] [id number] Common 00:00:00 00:00:00 [facility] 2020-05-04 2020-05-04 Outpatient [facility] ST[facility] [id number] Common 00:00:00 00:00:00 [facility] 2020-04-19 2020-04-19 Outpatient [facility] [id number] Common 00:00:00 00:00:00 [facility] 2020-04-04 2020-04-04 Outpatient [facility] ST[facility] [id number] Common 00:00:00 00:00:00 [facility] 2020-02-04 2020-02-04 Outpatient [facility] ST[facility] [id number] Common 00:00:00 00:00:00 [facility] 2020-02-01 2020-02-01 Outpatient [facility] ST[facility] [id number] Common 00:00:00 00:00:00 [facility] 2020-01-05 2020-01-05 Outpatient [facility] ST[facility] [id number] Common 00:00:00 00:00:00 [facility] 2019-12-20 2019-12-20 Outpatient [facility] ST[facility] [id number] Common 00:00:00 00:00:00 [facility] 2019-12-19 2019-12-19 Outpatient [facility] [id number] Common 00:00:00 00:00:00 [facility] 2019-12-17 2019-12-17 Outpatient [facility] ST[facility] [id number] Common 00:00:00 00:00:00 [facility] 2019-11-03 2019-11-03 [id number] Common 10:19:00 10:19:[address] [facility] 2019-10-06 2019-10-06 [facility] [id number] Common 16:47:00 16:47:[address] [facility] 2019-09-30 2019-09-30 [facility] [id number] Common 14:56:00 14:56:[address] [facility] 2019-09-14 2019-09-14 [facility] [id number] Common 13:55:00 13:55:[address] [facility] 2019-08-12 2019-08-12 [facility] [id number] Common 11:39:00 11:39:[address] [facility] 2019-07-09 2019-07-09 [facility] [id number] Common 11:26:00 11:26:[address] [facility] 2019-07-06 2019-07-06 [facility] [id number] Common 14:00:00 14:00:[address] [facility] 2019-06-11 2019-06-11 [facility] [id number] Common 10:29:00 10:29:[address] [facility] 2019-06-08 2019-06-08 [facility] [id number] Common 10:57:00 10:57:[address] [facility] 2019-05-24 2019-05-24 [facility] [id number] Common 14:44:00 14:44:[address] [facility] 2019-04-12 2019-04-12 [facility] [id number] Common 10:58:00 10:58:[address] [facility] 2019-04-08 2019-04-08 [facility] [id number] Common 17:13:00 17:13:[address] [facility] 2019-03-26 2019-03-26 [facility] [id number] Common 07:58:00 07:58:[address] [facility] 2019-02-01 2019-02-01 [facility] [id number] Common 10:49:00 10:49:[address] [facility] 2019-01-21 2019-01-21 [facility] [id number] Common 12:09:00 12:09:[address] [facility] 2018-12-31 2018-12-31 [facility] [id number] Common 13:40:00 13:40:[address] [facility] 2018-12-24 2018-12-24 [facility] [id number] Common 16:51:00 16:51:[address] [facility] 2018-12-22 2018-12-22 [facility] [id number] Common 10:09:00 10:09:[address] [facility] 2018-12-16 2018-12-16 [facility] [id number] Common 13:32:00 13:32:[address] [facility] 2018-12-09 2018-12-09 [facility] [id number] Common 15:07:00 15:07:[address] [facility] 2018-12-08 2018-12-08 [facility] [id number] Common 09:21:00 09:21:[address] [facility] 2018-12-07 2018-12-07 [facility] [id number] Common 15:10:00 15:10:[address] [facility] 2018-10-29 2018-10-29 [facility] [id number] Common 11:00:00 11:00:[address] [facility] 2018-10-20 2018-10-20 [facility] [id number] Common 13:23:00 13:23:[address] [facility] 2018-10-05 2018-10-05 [facility] [id number] Common 16:27:00 16:27:[address] [facility] 2018-09-25 2018-09-25 [facility] [id number] Common 16:15:00 16:15:[address] [facility] 2018-09-23 2018-09-23 [facility] [id number] Common 15:54:00 15:54:[address] [facility] 2018-08-27 2018-08-27 [facility] [id number] Common 16:00:00 16:00:[address] [facility] 2018-08-25 2018-08-25 [facility] [id number] Common 15:20:00 15:20:[address] [facility] Results This patient has no known results.
[2021-08-01 18:43] LABS: Absolute Lymphocytes (CBC) 1.5 K/uL (0.7-4.9); Hematocrit 38.6 % (36.0-45.0); Lymphocytes % 16.1 % (15.3-44.8); MPV 8.7 fL (7.6-11.3); RBC Red Blood Cell Count 4.51 M/uL (3.86-4.86)
[2021-08-01 18:45] LABS: Protime INR 1.05
[2021-08-01 18:58] LABS: Magnesium 2.1 mg/dL (1.8-2.4); Potassium 3.1 mmol/L (3.5-5.1); Troponin High Sensitivity 6.2 pg/mL (<58.9)
[2021-08-01] MEDS ORDERED: POTASSIUM CL SA 10 MEQ TAB PO ONE (19:21)
[2021-08-01] MEDS ORDERED: MORPHINE 2 MG/ML SYR ONE (19:21)
[2021-08-01] MEDS ORDERED: POTASSIUM 25 MEQ EFFERV TAB ONE (19:26)
--- NOTE | 2021-08-01 19:46 | RAD REPORT ---
EXAM DESCRIPTION: RAD - Chest Single View - 08/01/2021 7:17 pm CLINICAL HISTORY: DYSPNEA Chest pain. COMPARISON: Chest Single View dated 07/05/2021; Chest Single View dated 06/29/2021; Chest Single View dated 05/18/2021; Chest Single View dated 05/16/2021 FINDINGS: Portable technique limits examination quality. Mild interstitial pulmonary edema. The heart is mildly enlarged in size. No displaced fractures. IMPRESSION: Mild CHF.
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
--- NOTE | 2021-08-01 20:31 | EDPHYS ---
Physician Documentation [facility] Name: Jv Bryant Age: 66 yrs Sex: Female : 1955 Arrival Date: 08/01/2021 Time: 17:09 Bed 16 Private MD: ED Physician Chip Bettencourt HPI: 08/01 18:40 This 66 yrs old Female presents to ER via EMS with complaints of Wound Check. jr8 18:40 The patient has not experienced similar symptoms in the past. The patient has not jr8 recently seen a physician. This is a 66-year-old female patient that presented to the emergency room with complaints of open wound to the back of her leg. Patient stated that she felt her skin tear in that region and is currently on Eliquis. Has been bleeding a lot for the past couple of days and now feels weak and fatigued. Also had chest tightness that began yesterday. Bleeding now controlled but stated that she had lost a lot of blood. Had to have her son mop the bathroom floor as she had blood that much.. Historical: - Allergies: 17:15 aloe vera; ld1 17:15 Fentanyl; ld1 17:15 Iodine; ld1 17:15 Macrolide Antibiotics; ld1 17:15 meropenem; ld1 17:15 Sulfa (Sulfonamide Antibiotics); ld1 - PMHx: 17:15 ADD/ADHD; Arthritis; Chronic pain; COPD; Fibromyalgia; frequent UTI'S; heart disease- ld1 unspecified; Hyperlipidemia; Hypertension; insomnia; lymphedema; PERIPHERAL NEUROPATHY; unspecified kidney failure; - Immunization history:: Adult Immunizations up to date, Client reports receiving the 2nd dose of the Covid vaccine. - Social history:: Smoking status: Patient denies any tobacco usage or history of. Patient/guardian denies using alcohol. ROS: 18:40 Eyes: Negative for injury, pain, redness, and discharge, ENT: Negative for injury, jr8 pain, and discharge, Neck: Negative for injury, pain, and swelling, Respiratory: Negative for shortness of breath, cough, wheezing, and pleuritic chest pain, Abdomen/GI: Negative for abdominal pain, nausea, vomiting, diarrhea, and constipation, Back: Negative for injury and pain, MS/Extremity: Negative for injury and deformity, Skin: Negative for injury, rash, and discoloration, Neuro: Negative for headache, weakness, numbness, tingling, and seizure. 18:40 Constitutional: Positive for fatigue. 18:40 Cardiovascular: Positive for chest pain. Exam: 18:40 Constitutional: This is a well developed, well nourished patient who is awake, alert, jr8 and in no acute distress. Eyes: Pupils equal round and reactive to light, extra-ocular motions intact. Lids and lashes normal. Conjunctiva and sclera are non-icteric and not injected. Cornea within normal limits. Periorbital areas with no swelling, redness, or edema. Neck: Trachea midline, no thyromegaly or masses palpated, and no cervical lymphadenopathy. Supple, full range of motion without nuchal rigidity, or vertebral point tenderness. No Meningismus. Cardiovascular: Regular rate and rhythm with a normal S1 and S2. No gallops, murmurs, or rubs. Normal PMI, no JVD. No pulse deficits. Respiratory: Lungs have equal breath sounds bilaterally, clear to auscultation and percussion. No rales, rhonchi or wheezes noted. No increased work of breathing, no retractions or nasal flaring. Abdomen/GI: Soft, non-tender, with normal bowel sounds. No distension or tympany. No guarding or rebound. No evidence of tenderness throughout. Skin: Warm, dry with normal turgor. Normal color with no rashes, no lesions, and no evidence of cellulitis. MS/ Extremity: Pulses equal, no cyanosis. Neurovascular intact. Full, normal range of motion. Bilateral lymphedema noted. Patient has lower extremity from the tibia down to her feet wrapped with compression dressings. Patient has 2 approximately 1 cm superficial wounds to the back of the left leg noted without bleeding at this time. Neuro: Awake and alert, GCS 15, oriented to person, place, time, and situation. Cranial nerves II-XII grossly intact. Motor strength 5/5 in all extremities. Sensory grossly intact. Vital Signs: 17:14 BP 121 / 48; Pulse 69; Resp 18; Temp 98.6; Pulse Ox 100% on R/A; Pain 9/10; ld1 18:30 BP 133 / 70; Pulse 83; Resp 17; Pulse Ox 100% on R/A; tw2 19:41 BP 122 / 49; Pulse 72; Resp 18; Temp 98.6; Pulse Ox 99% on R/A; ted 20:12 BP 107 / 73; Pulse 72; Resp 16; Temp 98.6; Pulse Ox 98% on R/A; ted 22:22 BP 110 / 62; Pulse 68; Resp 16; Temp 98.5; Pulse Ox 100% on R/A; Pain 0/10; ted MDM: 17:16 Patient medically screened. jr8 20:07 Data reviewed: vital signs, nurses notes, lab test result(s), EKG, radiologic studies, jr8 plain films. Data interpreted: Pulse oximetry: on room air is 99 %. Interpretation: normal. Counseling: I had a detailed discussion with the patient and/or guardian regarding: the historical points, exam findings, and any diagnostic results supporting the discharge/admit diagnosis, lab results, radiology results, the need for outpatient follow up, a family practitioner, to return to the emergency department if symptoms worsen or persist or if there are any questions or concerns that arise at home. 20:29 ED course: Discussed with patient that her hemoglobin is normal. Had slight hypokalemia jr8 which was corrected. We will give her Lasix to help her leg swelling but otherwise hemodynamically stable without any acute respiratory distress and pulse ox is remained 98% or higher. Recommend that she continues her Lasix and follow-up with her primary care. Also discussed the Eliquis but at this time would remain on that until they make that decision. Patient good with this and will follow-up knows to come back if she had worsening point time.. 08/01 17:53 Order name: Basic Metabolic Panel; Complete Time: 19:02 08/01 17:53 Order name: CBC with Diff; Complete Time: 18:46 08/01 17:53 Order name: Magnesium; Complete Time: 19:02 08/01 17:53 Order name: NT PRO-BNP; Complete Time: 19:02 08/01 17:53 Order name: PT-INR; Complete Time: 18:46 08/01 17:53 Order name: Troponin HS; Complete Time: 19:02 08/01 17:53 Order name: XRAY Chest (1 view); Complete Time: 19:54 08/01 17:53 Order name: TS; Complete Time: 20:07 [facility] 08/01 17:56 Order name: SARS-COV-2 RT PCR (Document "Date of Onset" if Symptomatic) [facility] 08/01 19:07 Order name: SARS-COV-2 RT PCR; Complete Time: 20:07 [facility] 08/01 17:53 Order name: EKG; Complete Time: 17:54 [facility] 08/01 17:53 Order name: Cardiac monitoring; Complete Time: 18:34 [facility] 08/01 17:53 Order name: EKG - Nurse/Tech; Complete Time: 18:34 [facility] 08/01 17:53 Order name: IV Saline Lock; Complete Time: 18:34 [facility] 08/01 17:53 Order name: Labs collected and sent; Complete Time: 18:34 [facility] 08/01 17:53 Order name: O2 Per Protocol; Complete Time: 17:53 [facility] 08/01 17:53 Order name: O2 Sat Monitoring; Complete Time: 17:53 [facility] Administered Medications: 19:30 Drug: Potassium Chloride 40 mEq Route: PO; ted 19:30 Drug: morphine 2 mg Route: IV; Rate: calculated rate; Site: left antecubital; ted 22:17 Not Given (Patient Refused): Lasix (furosemide) 40 mg IVP once; give over 2 minutes ted Disposition Summary: 08/01/21 20:30 Discharge Ordered Location: Home [facility] Problem: new jr8 Symptoms: have improved jr8 Condition: Stable jr8 Diagnosis - Hypokalemia jr8 - Generalized edema jr8 - Muscle weakness (generalized) jr8 Followup: jr8 - With: Private Physician - When: 2 - 3 days - Reason: Recheck today's complaints, Continuance of care, Re-evaluation by your physician Discharge Instructions: - Discharge Summary Sheet jr8 - Edema jr8 - Weakness jr8 - Hypokalemia jr8 Forms: - Medication Reconciliation Form jr8 - Thank You Letter jr8 - Antibiotic Education jr8 - Prescription Opioid Use jr8 - SBAR form ted Addendum: 08/03/2021 07:00 Co-signature as Attending Physician, Chip Bettencourt MD. r n Signatures: Dispatcher [employer] [facility] Chip Bettencourt MD MD rn Roszak, Josh, PA PA jr8 Jaja Everett RN RN ld1 O'Parra, Nusrat, RN RN ted Corrections: (The following items were deleted from the chart) 08/01 17:57 17:56 SARS-COV-2 RT PCR+[id number] ordered. EDMS EDMS
[2021-08-02 00:57] VITALS: BP 110/62; TEMP 98.5; O2SAT 100
--- NOTE | 2021-08-02 07:53 | EKG ---
Test Date: 2021-08-01 Test Time: 18:40:35 Photographic Process Attendant: MARLO MEASUREMENT RESULTS: Intervals: Rate: 71 DE: 174 QRSD: 80 QT: 416 QTc: 452 [place]: P: 79 DE: 174 QRS: -27 T: 43 INTERPRETIVE STATEMENTS: Sinus rhythm with premature atrial complexes with aberrant conduction Low voltage QRS Septal infarct, age undetermined Abnormal ECG Compared to ECG 07/05/2021 12:57:48 Atrial premature complex(es) now present Aberrant conduction of supraventricular beat(s) now present Low QRS voltage now present Myocardial infarct finding now present Left anterior fascicular block no longer present T-wave abnormality no longer present Possible ischemia no longer present Electronically Signed On 08-02-21 07:51:57 CDT by Mamadou Peña
== END 2021-08-02 00:48 | disposition home or self-care (01) ==
LOC: ER 17:08
DX: E87.6 Hypokalemia (principal); R60.1 Generalized edema; I12.9 Hypertensive chronic kidney disease with stage 1 through stage 4 chronic kidney disease, or unspecified chronic kidney disease; N18.9 Chronic kidney disease, unspecified; E78.5 Hyperlipidemia, unspecified; J44.9 Chronic obstructive pulmonary disease, unspecified; Z79.01 Long term (current) use of anticoagulants; Z20.822 Contact with and (suspected) exposure to COVID-19; Z88.1 Allergy status to other antibiotic agents; Z88.2 Allergy status to sulfonamides; Z88.5 Allergy status to narcotic agent; Z88.8 Allergy status to other drugs, medicaments and biological substances; Z91.048 Other nonmedicinal substance allergy status
CPT/HCPCS: 93005; 85025; 80048; 36415; 86900; 83735; 86850; 85610; 86901; 84484; 83880; 71045; 96374; 99285; U0003; J2270

== ENCOUNTER 2021-08-27 14:50 | Emergency (ER) | payer OTHER ==
--- OUTSIDE RECORDS SUMMARY | 2021-08-27 14:52 | XMS REPORT | Continuity of Care Document ---
:1955 Author Organization [facility] t Address [address] [place] [address] Care Team Providers Name Role Phone Neri Gutierrez Attending Clinician Unavailable Problems This patient has no known problems. Allergies, Adverse Reactions, Alerts Allergy Allergy Status Severity Reaction(s) Onset Inactive Treating Comm ents Source Name Type Date Date Clinician sulfa Adverse Active Info Not Common Reaction Available [facility] Rocephin Adverse Active Info Not Commo n Reaction Available [facility] Macrobid Adverse Active Info Not Commo n Reaction Available [facility] Lincocin Adverse Active Info Not Commo n Reaction Available [facility] Fentanyl Adverse Active Info Not Commo n Reaction Available [facility] Betadine Adverse Active Info Not Commo n Reaction Available [facility] Augmenti Adverse Active Info Not Commo n n Reaction Available [facility] Aloe Adverse Active Info Not Common Vera Reaction Available [facility] Vancomyc Adverse Active Info Not Commo n in HCl Reaction Available [facility] Medications Ordered Filled Start Stop Current Ordering Indication Dosage Frequency Signature Comments Components Source Medication Medication Date Date Medication? Clinician (SIG) Name Name Metoprolol Metoprolol Yes Na Gutierrez 1 tablet Common Tartrate Tartrate - with food Sp dre 00:00: - [facility] Doxycycline Doxycycline 2017-03 Yes Na Gutierrez 1 capsule Common Hyclate Hyclate 1-21 Spirit 00:00: - [facility] Metoprolol Metoprolol Yes Na Gutierrez 1/2 tablet Common Tartrate Tartrate with food Sp [facility] Procedures This patient has no known procedures. Encounters Start End Encounter Admission Attending Care Care Encounter Source Date/Time Date/Time Type Type Clinicians Facility Department ID 2021-07-13 Outpatient Gutierrez, Na STLMLC ST[facility] [id number] Common 12:02:00 [facility] 2021-07-12 Outpatient Gutierrez, Na STLMLC ST[facility]C [id number] 2 Common 13:49:00 [facility] 2021-06-11 Outpatient Gutierrez, Na STLMLC ST[facility] [id number] 2 Common 08:32:00 [facility] 2021-06-05 Outpatient Gutierrez, Na STLMLC STL[facility]C [id number] 2 Common 11:00:01 [facility] 2021-05-31 Outpatient Gutierrez, Na STLMLC STL[facility]C [id number] 2 Common 09:00:01 [facility] 2021-05-14 Outpatient Gutierrez, Na STLMLC STL[facility]C [id number] 2 Common 09:20:01 [facility] 2021-04-26 Outpatient Gutierrez, Na [facility]LMLC ST[facility]C [id number] Common 15:13:00 [facility] 2021-04-04 Outpatient Gutierrez, Na STLMLC STL[facility]C [id number] 2 Common 13:37:41 [id number] [facility] 2021-04-04 Outpatient Gutierrez, Na STLMLC ST[facility]C [id number] 2 Common 13:27:35 [id number] [facility] 2021-04-04 Outpatient Gutierrez, Na STLMLC STL[facility]C [id number] 2 Common 13:10:57 [id number] [facility] 2021-04-04 Outpatient Gutierrez, Na STLMLC STL[facility]C [id number] 2 Common 12:33:38 [id number] [facility] 2021-04-04 Outpatient Gutierrez, Na STLMLC STL[facility]C [id number] 2 Common 12:33:09 [id number] [facility] 2021-04-04 Outpatient Gutierrez, Na STLMLC STL[facility]C [id number] 2 Common 11:19:52 [id number] [facility] 2021-04-04 Outpatient Gutierrez, Na STLMLC STL[facility]C [id number] 2 Common 11:19:18 [id number] [facility] 2021-08-10 2021-08-10 ambulatory [facility]LMLC ST[facility]C [id number] Common 00:00:00 00:00:00 [facility] 2021-08-09 2021-08-09 ambulatory [facility]LMLC STL[facility]C [id number] Common 00:00:00 00:00:00 [facility] 2021-08-09 2021-08-09 ambulatory [facility]LMLC STL[facility]C [id number] Common 00:00:00 00:00:00 [facility] 2021-07-19 2021-07-19 ambulatory [facility]LMLC STL[facility]C [id number] Common 00:00:00 00:00:00 [facility] 2021-07-13 2021-07-13 ambulatory [facility]LMLC STL[facility]C [id number] Common 00:00:00 00:00:00 [facility] 2021-07-12 2021-07-12 ambulatory [facility]LMLC STL[facility]C [id number] Common 00:00:00 00:00:00 [facility] 2021-06-28 2021-06-28 ambulatory STLMLC STL[facility]C [id number] Common 00:00:00 00:00:00 [facility] 2021-06-13 2021-06-13 ambulatory STLMLC STL[facility]C [id number] Common 00:00:00 00:00:00 [facility] 2021-06-12 2021-06-12 ambulatory [facility]LMLC STL[facility]C [id number] Common 00:00:00 00:00:00 [facility] 2021-06-04 2021-06-04 ambulatory [facility]LMLC STL[facility]C [id number] Common 00:00:00 00:00:00 [facility] 2021-05-28 2021-05-28 ambulatory STLMLC STL[facility]C [id number] Common 00:00:00 00:00:00 [facility] 2021-05-14 2021-05-14 ambulatory STLMLC STL[facility]C [id number] Common 00:00:00 00:00:00 [facility] 2021-04-26 2021-04-26 ambulatory [facility]LMLC STL[facility]C [id number] Common 00:00:00 00:00:00 [facility] 2021-04-12 2021-04-12 ambulatory [facility]LMLC STL[facility]C [id number] Common 00:00:00 00:00:00 [facility] 2021-03-30 2021-03-30 ambulatory [facility]LMLC STL[facility]C [id number] Common 00:00:00 00:00:00 [facility] 2021-02-27 2021-02-27 ambulatory [facility]LMLC STL[facility]C [id number] Common 00:00:00 00:00:00 [facility] 2021-01-01 2021-01-01 Outpatient [facility]C ST[facility] [id number] Common 00:00:00 00:00:00 [facility] 2020-12-19 2020-12-19 Outpatient [facility]C ST[facility] [id number] Common 00:00:00 00:00:00 [facility] 2020-10-26 2020-10-26 Outpatient [facility]C ST[facility]C [id number] Common 00:00:00 00:00:00 [facility] 2020-10-26 2020-10-26 Outpatient [facility]C STL[facility]C [id number] Common 00:00:00 00:00:00 [facility] 2020-10-19 2020-10-19 Outpatient [facility]C STL[facility]C [id number] Common 00:00:00 00:00:00 [facility] 2020-10-11 2020-10-11 Outpatient [facility]C ST[facility]C [id number] Common 00:00:00 00:00:00 [facility] 2020-09-27 2020-09-27 Outpatient [facility]LMLC STL[facility]C [id number] Common 00:00:00 00:00:00 [facility] 2020-09-27 2020-09-27 Outpatient [facility]C STL[facility]C [id number] Common 00:00:00 00:00:00 [facility] 2020-09-22 2020-09-22 Outpatient [facility]C STL[facility]C [id number] Common 00:00:00 00:00:00 [facility] 2020-08-15 2020-08-15 Outpatient [facility]C STL[facility]C [id number] Common 00:00:00 00:00:00 [facility] 2020-07-21 2020-07-21 Outpatient [facility]C ST[facility]C [id number] Common 00:00:00 00:00:00 [facility] 2020-07-03 2020-07-03 Outpatient [facility] ST[facility] [id number] Common 00:00:00 00:00:00 [facility] 2020-06-30 2020-06-30 Outpatient [facility]C STL[facility]C [id number] Common 00:00:00 00:00:00 [facility] 2020-06-30 2020-06-30 Outpatient [facility]C ST[facility]C [id number] Common 00:00:00 00:00:00 [facility] 2020-06-27 2020-06-27 Outpatient [facility]C ST[facility]C [id number] Common 00:00:00 00:00:00 [facility] 2020-06-07 2020-06-07 Outpatient [facility] ST[facility]C [id number] Common 00:00:00 00:00:00 [facility] 2020-05-29 2020-05-29 Outpatient [facility]C ST[facility]C [id number] Common 00:00:00 00:00:00 [facility] 2020-05-23 2020-05-23 Outpatient [facility]C ST[facility]C [id number] Common 00:00:00 00:00:00 [facility] 2020-05-11 2020-05-11 Outpatient [facility]C ST[facility]C [id number] Common 00:00:00 00:00:00 [facility] 2020-05-07 2020-05-07 Outpatient [facility]C ST[facility]C [id number] Common 00:00:00 00:00:00 [facility] 2020-05-04 2020-05-04 Outpatient [facility]C ST[facility]C [id number] Common 00:00:00 00:00:00 [facility] 2020-04-19 2020-04-19 Outpatient [facility]C ST[facility]C [id number] Common 00:00:00 00:00:00 [facility] 2020-04-04 2020-04-04 Outpatient [facility] ST[facility] [id number] Common 00:00:00 00:00:00 [facility] 2020-02-04 2020-02-04 Outpatient [facility] ST[facility]C [id number] Common 00:00:00 00:00:00 [facility] 2020-02-01 2020-02-01 Outpatient [facility] ST[facility] [id number] Common 00:00:00 00:00:00 [facility] 2020-01-05 2020-01-05 Outpatient [facility] ST[facility]C [id number] Common 00:00:00 00:00:00 [facility] 2019-12-20 2019-12-20 Outpatient [facility] ST[facility] [id number] Common 00:00:00 00:00:00 [facility] 2019-12-19 2019-12-19 Outpatient [facility] ST[facility] [id number] Common 00:00:00 00:00:00 [facility] 2019-12-17 2019-12-17 Outpatient [facility] ST[facility]C [id number] Common 00:00:00 00:00:00 [facility] 2019-11-03 2019-11-03 [id number] Common 10:19:00 10:19:[address] [place] [address] [address] [facility] 2019-10-06 2019-10-06 [facility] [id number] Common 16:47:00 16:47:00 [place] [address] [facility] 2019-09-30 2019-09-30 [facility] [id number] Common 14:56:00 14:56:00 [place] [address] [facility] 2019-09-14 2019-09-14 [facility] [id number] Common 13:55:00 13:55:00 [place] [address] [facility] 2019-08-12 2019-08-12 [facility] [id number] Common 11:39:00 11:39:00 [place] [address] [facility] 2019-07-09 2019-07-09 [facility] [id number] Common 11:26:00 11:26:00 [place] [address] [facility] 2019-07-06 2019-07-06 [facility] [id number] Common 14:00:00 14:00:00 [place] [address] [facility] 2019-06-11 2019-06-11 [facility] [id number] Common 10:29:00 10:29:00 [place] [address] [facility] 2019-06-08 2019-06-08 [facility] [id number] Common 10:57:00 10:57:00 [place] [address] [facility] 2019-05-24 2019-05-24 [facility] [id number] Common 14:44:00 14:44:00 [address] [place] [address] [facility] 2019-04-12 2019-04-12 [facility] [id number] Common 10:58:00 10:58:00 [place] [address] [facility] 2019-04-08 2019-04-08 [facility] [id number] Common 17:13:00 17:13:00 [place] [address] [facility] 2019-03-26 2019-03-26 [facility] [id number] Common 07:58:00 07:58:00 [place] [address] [facility] 2019-02-01 2019-02-01 [facility] [id number] Common 10:49:00 10:49:00 [place] [address] [facility] 2019-01-21 2019-01-21 [facility] [id number] Common 12:09:00 12:09:00 [place] [address] [facility] 2018-12-31 2018-12-31 [facility] [id number] Common 13:40:00 13:40:00 [place] [address] [facility] 2018-12-24 2018-12-24 [facility] [id number] Common 16:51:00 16:51:00 [place] [address] [facility] 2018-12-22 2018-12-22 [facility] [id number] Common 10:09:00 10:09:00 [place] [address] [facility] 2018-12-16 2018-12-16 [facility] [id number] Common 13:32:00 13:32:00 [place] [address] [facility] 2018-12-09 2018-12-09 [facility] [id number] Common 15:07:00 15:07:00 [place] [address] [facility] 2018-12-08 2018-12-08 [facility] [id number] Common 09:21:00 09:21:00 [place] [address] [facility] 2018-12-07 2018-12-07 [facility] [id number] Common 15:10:00 15:10:00 [place] [address] [facility] 2018-10-29 2018-10-29 [facility] [id number] Common 11:00:00 11:00:00 [place] [address] [facility] 2018-10-20 2018-10-20 [facility] [id number] Common 13:23:00 13:23:00 [place] [address] [facility] 2018-10-05 2018-10-05 [facility] [id number] Common 16:27:00 16:27:00 [place] [address] [facility] 2018-09-25 2018-09-25 [facility] [id number] Common 16:15:00 16:15:00 [place] [address] [facility] 2018-09-23 2018-09-23 [facility] [id number] Common 15:54:00 15:54:00 [place] [address] [facility] 2018-08-27 2018-08-27 [facility] [id number] Common 16:00:00 16:00:00 [place] [address] [facility] 2018-08-25 2018-08-25 [facility] [id number] Common 15:20:00 15:20:00 [place] [address] [facility] Results This patient has no known results.
[2021-08-27 15:46] LABS: Absolute Lymphocytes (CBC) 0.5 K/uL (0.7-4.9); Hematocrit 38.2 % (36.0-45.0); Lymphocytes % 2.8 % (15.3-44.8); MPV 8.8 fL (7.6-11.3); RBC Red Blood Cell Count 4.41 M/uL (3.86-4.86)
[2021-08-27] MEDS ORDERED: ACETAMINOPHEN 500 MG TAB ONE (15:48)
[2021-08-27 15:51] LABS: Protime INR 1.4
[2021-08-27 16:03] LABS: Albumin 2.8 g/dL (3.4-5.0); Bilirubin Total 1.1 mg/dL (0.2-1.0); Potassium 3.2 mmol/L (3.5-5.1)
[2021-08-27 16:03] LABS: Urine Blood 1+ (Negative); Urine Glucose Negative (Negative); Urine Protein 3+ (Negative); Urine pH >=9.0 (5.0-7.0)
--- NOTE | 2021-08-27 16:12 | RAD REPORT ---
EXAM DESCRIPTION: RAD - Chest Single View - 08/27/2021 4:05 pm CLINICAL HISTORY: FEVER COMPARISON: Chest Single View dated 08/01/2021; Chest Single View dated 07/05/2021; Chest Single View dated 06/29/2021; Chest Single View dated 05/18/2021 FINDINGS: Lines: None. Lungs: Hazy opacities are present bilaterally. No consolidative process identified. Pleural: No significant pleural effusions or pneumothorax. Cardiac: Cardiomegaly. Bones: No acute fractures. Other: IMPRESSION: Mild hazy opacities bilaterally could reflect underpenetration or mild edema.
--- NOTE | 2021-08-27 16:32 | RAD REPORT ---
EXAM DESCRIPTION: CT - Head Brain Wo Cont - 08/27/2021 4:25 pm CLINICAL HISTORY: Mental status change, unknown cause COMPARISON: Abdomen Pelvis Wo Contrast dated 08/27/2021 TECHNIQUE: All CT scans are performed using dose optimization technique as appropriate and may inclu de automated exposure control or mA/KV adjustment according to patient size. FINDINGS: No intracranial hemorrhage, hydrocephalus or extra-axial fluid collection.No areas of brai n edema or evidence of midline shift. Ethmoid air cell thickening. Mucous retention cyst left maxillary sinus. The calvarium is intact. IMPRESSION: No acute intracranial abnormality.
--- NOTE | 2021-08-27 16:38 | RAD REPORT ---
EXAM DESCRIPTION: CTAbdomen Pelvis Wo Contrast - 08/27/2021 4:24 pm CLINICAL HISTORY: Right flank pain, fever, UTI COMPARISON: Abdomen Pelvis Wo Contrast dated 02/21/2021; Abdomen Pelvis Wo Contrast dated 021; Abdomen Pelvis Wo Contrast dated 07/03/2018; Abdomen Pelvis Wo Contrast dated 10/19/2017 TECHNIQUE: CT of the abdomen and pelvis was performed. All CT scans are performed using dose optimization technique as appropriate and may include automated exposure control or mA/KV adjustment according to patient size. FINDINGS: Lower chest: Circumferential thickened distal esophagus which may reflect esophagitis. Liver: No acute abnormality or suspicious lesions. Biliary: No biliary ductal dilatation. Stomach: Gastric banding Duodenum: No significant focal abnormality. Pancreas: No significant abnormality. Spleen: No significant abnormality. Adrenal: No suspicious lesions. Kidney/ureter: Right sided hydronephrosis secondary to a 15 mm stone at the right UVJ. Multiple addit ional right renal calculi noted. A nonobstructing 11 mm stone is present at the left UPJ. . Retroperitoneum: Prominent retroperitoneal lymph nodes. Vascular: No aneurysm. Atherosclerosis. Bowel: No significant focal abnormality. Peritoneum: No ascites or free air. Bladder: Suprapubic catheter large bladder calculus. Reproductive: No adnexal masses. Bones: No acute fracture. Other: n/a IMPRESSION: 1. Right-sided hydronephrosis secondary to an obstructing 15 mm stone at the right UPJ. A nonobstructing left UPJ stone is present. 2. Large bladder calculus.
[2021-08-27] MEDS ORDERED: Levofloxacin500mg IV 500 MG/100 ML BAG IV ONE (16:52)
[2021-08-27] MEDS ORDERED: NA CHLORIDE 0.9% 1,000 ML ONE ×2 (17:00→20:53)
--- NOTE | 2021-08-27 17:38 | ER ---
Nurse's Notes [facility] Name: Jv Bryant Age: 66 yrs Sex: Female : 1955 Arrival Date: 08/27/2021 Time: 15:00 Bed 5 Private MD: Diagnosis: Hydronephrosis with ureteral stricture, not elsewhere classified;UTI/ Urinary tract infection, site not specified Presentation: 08/27 15:00 Chief complaint: EMS states: "the pt's family reported that the pt is been having jd3 thicker urine with right sided pain and bladder spasms. pt has a suprapubic cath. pt has a 102.9 temp for us. family reported that she may have a urine infection.". Coronavirus screen: At this time, the client does not indicate any symptoms associated with coronavirus-19. Ebola Screen: No symptoms or risks identified at this time. Initial Sepsis Screen: Does the patient meet any 2 criteria? HR > 90 bpm. No. Patient's initial sepsis screen is negative. Does the patient have a suspected source of infection? Yes: Catheter related infection ([facility]/dialysis/PICC/central line). Risk Assessment: Do you want to hurt yourself or someone else? Patient reports no desire to harm self or others. Onset of symptoms was August 24, 2021. 15:00 Method Of Arrival: EMS: [facility] jd3 15:00 Acuity: SKYLER 3 jd3 Historical: - Allergies: 15:02 aloe vera; jd3 15:02 Fentanyl; jd3 15:02 Iodine; jd3 15:02 Macrolide Antibiotics; jd3 15:02 meropenem; jd3 15:02 Sulfa (Sulfonamide Antibiotics); jd3 15:02 Vancomycin; jd3 15:02 Augmentin; jd3 15:02 Rocephin; jd3 15:02 Dilaudid; jd3 17:53 flu vaccine; jd3 17:53 pneumonia vaccine; jd3 17:53 Stelazine; jd3 - PMHx: 15:02 ADD/ADHD; Arthritis; Chronic pain; COPD; Fibromyalgia; frequent UTI'S; heart disease- jd3 unspecified; Hyperlipidemia; Hypertension; insomnia; lymphedema; PERIPHERAL NEUROPATHY; unspecified kidney failure; - Immunization history:: Adult Immunizations up to date, Client reports having NOT received the Covid vaccine. - Social history:: Smoking status: Patient/guardian denies using tobacco, the patient reports quitting approximately 1 years ago. Screenin:09 Abuse screen: Denies threats or abuse. Nutritional screening: No deficits noted. jd3 Tuberculosis screening: No symptoms or risk factors identified. Fall Risk Ambulatory Aid- Furniture (30 pts.). Gait- Impaired (20 pts.). Mental Status- Oriented to own ability (0 pts). Total Garcia Fall Scale indicates High Risk Score (45 or more points). Fall prevention measures have been instituted. Side Rails Up X 2 Placed Close to Nursing Station Frequent Obs/Assessments Occuring. Assessment: 15:06 General: Appears in no apparent distress. uncomfortable, Behavior is cooperative, jd3 appropriate for age. 15:07 Pain: Complains of pain in low back area and right low back Quality of pain is jd3 described as sharp. Neuro: Larson Agitation-Sedation Scale (RASS): 0 - Alert and Calm Level of Consciousness is awake, alert, obeys commands, lethargic, Oriented to person, place, time, situation. Cardiovascular: Denies chest pain, Capillary refill < 3 seconds Patient's skin is warm and dry. Respiratory: Airway is patent Respiratory effort is even, unlabored, Respiratory pattern is regular, symmetrical, Denies cough, shortness of breath. GI: No signs and/or symptoms were reported involving the gastrointestinal system. Abdomen is obese. : suprapubic catheter in place Reports cramping. EENT: No signs and/or symptoms were reported regarding the EENT system. Derm: Skin is intact, Skin is dry, Skin is pale, Skin temperature is warm. Musculoskeletal: Swelling present in right leg and left leg. 17:30 Reassessment: Patient appears in no apparent distress at this time. Patient and/or jd3 family updated on plan of care and expected duration. Pain level reassessed. Patient is alert, oriented x 3, equal unlabored respirations, skin warm/dry/pink. pt appears more awake and less lethargic. provider at bedside discussing plan of care. 18:14 Reassessment: Patient appears in no apparent distress at this time. Patient and/or jd3 family updated on plan of care and expected duration. Pain level reassessed. Patient is alert, oriented x 3, equal unlabored respirations, skin warm/dry/pink. 19:00 Reassessment: Patient and/or family updated on plan of care and expected duration. Pain ll3 level reassessed. Patient is alert, oriented x 3, equal unlabored respirations, skin warm/dry/pink. 20:00 Reassessment: Patient and/or family updated on plan of care and expected duration. Pain ll3 level reassessed. Patient is alert, oriented x 3, equal unlabored respirations, skin warm/dry/pink. 21:04 Reassessment: Patient and/or family updated on plan of care and expected duration. Pain ll3 level reassessed. Patient is alert, oriented x 3, equal unlabored respirations, skin warm/dry/pink. Vital Signs: 15:02 BP 119 / 59; Pulse 100; Resp 20 S; Temp 99.9(O); Pulse Ox 95% on R/A; Height 5 ft. 4 jd3 in. (162.56 cm) (M); Pain 8/10; 15:07 Weight 119.7 kg (R); jd3 17:31 BP 107 / 65; Pulse 101; Resp 19 S; Pulse Ox 94% on R/A; jd3 18:14 BP 97 / 70; Pulse 98; Resp 19 S; Temp 98.9(O); Pulse Ox 94% on R/A; jd3 19:45 BP 90 / 65; Pulse 94; Resp 20; Pulse Ox 94% on R/A; ll3 20:21 BP 107 / 82; Pulse 95; Resp 19; Pulse Ox 98% ; ll3 21:04 BP 112 / 48; Pulse 89; Pulse Ox 92% on R/A; ll3 15:07 Body Mass Index 45.30 (119.70 kg, 162.56 cm) jd3 ED Course: 15:00 Patient arrived in ED. jd3 15:02 Triage completed. jd3 15:02 Alvaro Mancuso NP is PHCP. pm1 15:02 Pascual Wray MD is Attending Physician. pm1 15:06 Arm band placed on. jd3 15:10 Patient has correct armband on for positive identification. Bed in low position. Call [facility] light in reach. Side rails up X2. Client placed on continuous cardiac and pulse oximetry monitoring. NIBP monitoring applied. satellite project site monitor on. Pulse ox on. NIBP on. 15:16 Oscar Carrillo, RN is Primary Nurse. jd3 15:30 Inserted saline lock: 22 gauge in right antecubital area, using aseptic technique. jd3 Blood collected. 16:07 Chest Single View XRAY In Process Unspecified. EDMS 16:26 CT Abd/Pelvis - Without Contrast In Process Unspecified. EDMS 16:28 CT Head Brain wo Cont In Process Unspecified. EDMS 18:[address] [facility] as requested by pt. bd 18:42 Assisted to bedside commode. jd3 19:10 connected Alvaro Mancuso NP with the Preflight Inspector from [facility]. mw2 19:24 administrative approval given by Kevon Flaherty/ patient has been accepted to [address] 8 [phone] [phone]/ Dr. Loyd accepted the patient in transfer/report to be called to [phone]. 21:09 No provider procedures requiring assistance completed. Patient transferred, IV remains ll3 in place. Administered Medications: 15:45 Drug: Tylenol 1000 mg Route: PO; jd3 16:45 Follow up: Response: No adverse reaction jd3 16:51 Drug: LevaQUIN (levofloxacin) 500 mg Volume: 100 ml; Route: IVPB; Infused Over: 60 jd3 mins; Site: right antecubital; 17:50 Follow up: Response: No adverse reaction; IV Status: Completed infusion jd3 16:57 Drug: NS 0.9% 1000 ml Route: IV; Rate: 1 bolus; Site: right antecubital; jd3 17:50 Follow up: Response: No adverse reaction; IV Status: Completed infusion jd3 20:45 Drug: NS 0.9% 1000 ml Route: IV; Rate: 1000 ml; Site: right antecubital; ll3 21:10 Follow up: Response: No adverse reaction; IV Status: Infusion continued upon transfer; ll3 IV Intake: 200ml 21:10 Not Given (Pt transferedd): NS 0.9% 1000 ml IV at 125 ml/hr continuous ll3 Medication: 15:09 VIS not applicable for this client. jd3 Intake: 21:10 IV: 200ml; Total: 200ml. ll3 Outcome: 17:37 ER care complete, transfer ordered by . pm1 21:09 Transferred by ground EMS to [facility], Transfer form ll3 completed. X-rays sent w/ patient. 21:09 Condition: stable 21:09 Discharge instructions given to EMS, Instructed on the need for transfer, Demonstrated understanding of instructions. 21:11 Patient left the ED. ll3 Signatures: Dispatcher [employer] EDMS Clementina De Anda Patrick, NP PRECISION INSPECTOR pm1 Oscar Carrillo RN RN jd3 Bobby Harden mw2 Mera Harrison RN RN ll3 Corrections: (The following items were deleted from the chart) 15:10 15:07 GI: No signs and/or symptoms were reported involving the gastrointestinal system. jd3 jd3 15:10 15:07 Musculoskeletal: No signs and/or symptoms reported regarding the musculoskeletal jd3 system. jd3
--- NOTE | 2021-08-27 17:38 | EDPHYS ---
Physician Documentation [facility] Name: Jv Bryant Age: 66 yrs Sex: Female : 1955 Arrival Date: 08/27/2021 Time: 15:00 Bed 5 Private MD: ED Physician Pascual Wray HPI: 08/27 15:15 This 66 yrs old Female presents to ER via EMS with complaints of Fever, AMS, Flank pain.pm1 15:15 The patient presents with flank pain, on the right, urinary symptoms, darkened urine pm1 and sediment in her catheter. Onset: The symptoms/episode began/occurred 3 day(s) ago. Modifying factors: The symptoms are alleviated by nothing, the symptoms are aggravated by nothing. Associated signs and symptoms: Pertinent positives: fever, altered mental status onset today per family, son. Severity of symptoms: in the emergency department the symptoms are actually worse. Patient reports history of multiple UTIs in the past. The patient has not recently seen a physician. Historical: - Allergies: 15:02 aloe vera; jd3 15:02 Fentanyl; jd3 15:02 Iodine; jd3 15:02 Macrolide Antibiotics; jd3 15:02 meropenem; jd3 15:02 Sulfa (Sulfonamide Antibiotics); jd3 15:02 Vancomycin; jd3 15:02 Augmentin; jd3 15:02 Rocephin; jd3 15:02 Dilaudid; jd3 17:53 flu vaccine; jd3 17:53 pneumonia vaccine; jd3 17:53 Stelazine; jd3 - PMHx: 15:02 ADD/ADHD; Arthritis; Chronic pain; COPD; Fibromyalgia; frequent UTI'S; heart disease- jd3 unspecified; Hyperlipidemia; Hypertension; insomnia; lymphedema; PERIPHERAL NEUROPATHY; unspecified kidney failure; - Immunization history:: Adult Immunizations up to date, Client reports having NOT received the Covid vaccine. - Social history:: Smoking status: Patient/guardian denies using tobacco, the patient reports quitting approximately 1 years ago. ROS: 15:15 Positive for urinary symptoms, flank pain, dark cloudy urine with sediment. pm1 15:15 Cardiovascular: Negative for chest pain, palpitations, and edema, Respiratory: Negative for shortness of breath, cough, wheezing, and pleuritic chest pain, Abdomen/GI: Negative for abdominal pain, nausea, vomiting, diarrhea, and constipation. 15:15 MS/Extremity: Negative for injury and deformity, Skin: Negative for injury, rash, and discoloration. 15:15 Constitutional: Positive for body aches, fatigue, fever, poor PO intake. 15:15 Back: Positive for flank pain, on the right. 15:15 Neuro: Positive for altered mental status. 15:15 All other systems are negative. pm1 Exam: 15:15 Head/Face: Normocephalic, atraumatic. pm1 15:15 Constitutional: The patient appears alert, awake, well developed, well groomed, well nourished. 15:15 Cardiovascular: Exam negative for acute changes, Rate: normal, Rhythm: regular, Heart sounds: normal, normal S1and S2. 15:15 Respiratory: Exam negative for acute changes, respiratory distress, shortness of breath. 15:15 Abdomen/GI: Inspection: obese Palpation: abdomen is soft and non-tender, in all quadrants. 15:15 : a suprapubic catheter is noted, urine is cloudy. 15:15 Skin: Exam negative for acute findings. 15:15 Neuro: Orientation: to person, place, time, situation, Mentation: sleepy. Vital Signs: 15:02 BP 119 / 59; Pulse 100; Resp 20 S; Temp 99.9(O); Pulse Ox 95% on R/A; Height 5 ft. 4 jd3 in. (162.56 cm) (M); Pain 8/10; 15:07 Weight 119.7 kg (R); jd3 17:31 BP 107 / 65; Pulse 101; Resp 19 S; Pulse Ox 94% on R/A; jd3 18:14 BP 97 / 70; Pulse 98; Resp 19 S; Temp 98.9(O); Pulse Ox 94% on R/A; jd3 19:45 BP 90 / 65; Pulse 94; Resp 20; Pulse Ox 94% on R/A; ll3 20:21 BP 107 / 82; Pulse 95; Resp 19; Pulse Ox 98% ; ll3 21:04 BP 112 / 48; Pulse 89; Pulse Ox 92% on R/A; ll3 15:07 Body Mass Index 45.30 (119.70 kg, 162.56 cm) jd3 MDM: 15:02 Patient medically screened. pm1 15:16 ED course: Patient not given septic bolus due to history of CHF and lymphedema and pm1 possible volume overload present. 17:25 Data reviewed: vital signs. Data interpreted: Pulse oximetry: on room air is 95 %. pm1 Interpretation: normal. Counseling: I had a detailed discussion with the patient and/or guardian regarding: the historical points, exam findings, and any diagnostic results supporting the discharge/admit diagnosis, lab results, radiology results, the need to transfer to another facility, [facility] does not immediately have the required specialist. 19:20 Physician consultation: Urology [facility] will not be accepting to urology since patient pm1 needs IR for percutaneous drain and admission to ICU/IMU. 19:24 Physician consultation: Lapping Machine Operator Evert regarding regarding transfer, patient's pm1 condition, and will see patient Transfer due to no IR and Urology available here. Patient requested transfer to [facility] system instead of [facility]. 08/27 15:15 Order name: Blood Culture Adult (2) pm1 08/27 15:15 Order name: CBC with Diff; Complete Time: 18:16 pm1 08/27 15:15 Order name: CMP; Complete Time: 16:15 pm1 08/27 15:15 Order name: Lactate; Complete Time: 16:15 pm1 08/27 15:15 Order name: Protime (+inr); Complete Time: 15:59 pm1 08/27 15:15 Order name: Ptt, Activated; Complete Time: 15:59 pm08/27 15:15 Order name: CT Abd/Pelvis - Without Contrast; Complete Time: 17:05 pm1 08/27 15:15 Order name: Urine Culture pm1 08/27 15:15 Order name: Urine Microscopic Only; Complete Time: 18:06 pm1 08/27 15:15 Order name: Chest Single View XRAY; Complete Time: 16:15 pm1 08/27 15:15 Order name: Flu; Complete Time: 17:05 pm1 08/27 15:15 Order name: COVID-19 SARS RT PCR (Document "Date of Onset" if Symptomatic); Complete pm1 Time: 17:33 08/27 16:04 Order name: Urine Dipstick-Ancillary; Complete Time: 16:15 EDMS 08/27 18:12 Order name: Manual Differential; Complete Time: 18:16 EDMS 08/27 15:15 Order name: Accucheck; Complete Time: 15:40 pm1 08/27 15:15 Order name: Cardiac monitoring; Complete Time: 15:40 pm1 08/27 15:15 Order name: EKG - Nurse/Tech; Complete Time: 16:04 pm1 08/27 15:15 Order name: IV Saline Lock - Large Bore; Complete Time: 15:40 pm1 08/27 15:15 Order name: Labs collected and sent; Complete Time: 15:40 pm1 08/27 15:15 Order name: O2 Per Protocol; Complete Time: 15:40 pm1 08/27 15:15 Order name: O2 Sat Monitoring; Complete Time: 15:40 pm1 08/27 15:15 Order name: Urine Dipstick-Ancillary (obtain specimen); Complete Time: 16:04 pm1 08/27 15:22 Order name: CT Head Brain wo Cont; Complete Time: 17:05 pm1 Administered Medications: 15:45 Drug: Tylenol 1000 mg Route: PO; jd3 16:45 Follow up: Response: No adverse reaction jd3 16:51 Drug: LevaQUIN (levofloxacin) 500 mg Volume: 100 ml; Route: IVPB; Infused Over: 60 jd3 mins; Site: right antecubital; 17:50 Follow up: Response: No adverse reaction; IV Status: Completed infusion jd3 16:57 Drug: NS 0.9% 1000 ml Route: IV; Rate: 1 bolus; Site: right antecubital; jd3 17:50 Follow up: Response: No adverse reaction; IV Status: Completed infusion jd3 20:45 Drug: NS 0.9% 1000 ml Route: IV; Rate: 1000 ml; Site: right antecubital; ll3 21:10 Follow up: Response: No adverse reaction; IV Status: Infusion continued upon transfer; ll3 IV Intake: 200ml 21:10 Not Given (Pt transferedd): NS 0.9% 1000 ml IV at 125 ml/hr continuous ll3 Disposition Summary: 08/27/21 17:37 Transfer Ordered Transfer Location: Other Acute Care Facility pm1 Reason: Specialty pm1 Condition: Fair pm1 Problem: new pm1 Symptoms: are unchanged pm1 Accepting Physician: (08/27/21 21:11) ll3 Diagnosis - Hydronephrosis with ureteral stricture, not elsewhere classified pm1 - UTI/ Urinary tract infection, site not specified pm1 Forms: - Medication Reconciliation Form pm1 - SBAR form pm1 Signatures: Dispatcher [employer] Alvaro Bettencourt, ONLINE COMMUNICATIONS MANAGER ONLINE COMMUNICATIONS MANAGER pm1 Oscar Carrillo RN RN jd3 Mera Harrison RN RN ll3 Corrections: (The following items were deleted from the chart) 21:11 17:37 pm1 ll3
[2021-08-27 18:03] LABS: Urine Bacteria >50 /HPF (<20); Urine RBC <5 /HPF (NONE SEEN)
[2021-08-27 18:12] LABS: Blood Morphology Comment NOT SEEN (NOT SEEN); Platelet Estimate ADEQ
[2021-08-27 21:22] VITALS: TEMP 98.9
[2021-08-27 21:27] VITALS: BP 112/48; O2SAT 92
--- NOTE | 2021-08-29 07:25 | EKG ---
Test Date: 2021-08-27 Test Time: 15:50:40 Motorcycle Assembler: OSWALD MEASUREMENT RESULTS: Intervals: Rate: 113 [place]: 198 QRSD: 72 QT: 294 QTc: 403 [place]: P: 66 [place]: 198 QRS: -18 T: 232 INTERPRETIVE STATEMENTS: sinus rhythm Low voltage QRS Cannot rule out Anterior infarct, age undetermined ST & T wave abnormality, consider inferolateral ischemia Abnormal ECG Compared to ECG 08/01/2021 18:40:35 ST (T wave) deviation now present Possible ischemia now present Sinus rhythm no longer present Atrial premature complex(es) no longer present Aberrant conduction of supraventricular beat(s) no longer present Myocardial infarct finding still present Electronically Signed On 08-29-21 07:19:33 CDT by Mamadou Peña
== END 2021-08-27 21:11 ==
LOC: ER 14:50
DX: N13.1 Hydronephrosis with ureteral stricture, not elsewhere classified (principal); N39.0 Urinary tract infection, site not specified; I10 Essential (primary) hypertension; Z20.822 Contact with and (suspected) exposure to COVID-19; Z88.1 Allergy status to other antibiotic agents; Z88.2 Allergy status to sulfonamides; Z88.3 Allergy status to other anti-infective agents; Z88.5 Allergy status to narcotic agent; Z88.7 Allergy status to serum and vaccine; Z88.8 Allergy status to other drugs, medicaments and biological substances; Z91.048 Other nonmedicinal substance allergy status
CPT/HCPCS: 93005; 87040 ×2; 87088; 85025; 87086; 36415; 85610; 83605; 85730; 80053; 87804 ×2; 70450; 74176; 71045; U0003; J7030 ×2; 81003; 81015; 96365; 99285

== ENCOUNTER 2021-10-15 13:47 | Emergency (ER) | payer OTHER ==
--- OUTSIDE RECORDS SUMMARY | 2021-10-15 13:51 | XMS REPORT | Continuity of Care Document ---
:1955 Author Organization [facility] t Address [address] [place] [address] Care Team Providers Name Role Phone Zach Reese Primary Care Physician Judith Gutierrez Attending Clinician Unavailable Gena CHOU, Zach Hooper Attending Clinician Crystal Hinson Attending Clinician Unavailable Doctor Unassigned, [place] Attending Clinician Unavailable Manish CHOU, Robina Krishnamurthy Attending Clinician [phone] Payers Payer Name Policy Type Policy Number Effective Date Expiration Date S ource Problems Condition Condition Condition Status Onset Resolution Last Treating Co mments Source Name Details Category Date Date Treatment Clinician Date COPD COPD Disease Active Univers (chronic (chronic 6-21 ity of [place] Medical pulmonary pulmonary Bran ch disease) disease) Hyperlipid Hyperlipid Disease Active U nivers emia emia 6-21 ity of 00:00: [place] [facility] Recurrent Recurrent Disease Active Uni vers UTI UTI 08-28 ity of 00:00: Medical Branch Chronic Chronic Disease Active Univers suprapubic suprapubic 6- it y of catheter catheter 00:00: Medical Branch Heart Heart Disease Active Univers failure failure 6 ity of 00:00: Medical Branch Hydronephr Hydronephr Disease Active U nivers osis with osis with 6-20 ity of urinary urinary 00:00: [place] obstructio obstructio 00 Me dical n due to n due to Branch renal renal calculus calculus 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 ICD10 Diagnosis Term Powder Nipper Utility Allergies, Adverse Reactions, Alerts Allergy Allergy Status Severity Reaction(s) Onset Inactive Treating Comm ents Source Name Type Date Date Clinician Trifluop Propensi Active Itching Unive rs erazine ty to 6-20 ity of adverse 00:00: [place] reaction 00 Medical s Branch Sulfa Propensi Active Itching Univers (Sulfona ty to 6-20 ity of mide adverse 00:00: [place] Antibiot reaction 00 Medica l ics) s Branch Vancomyc Propensi Active Itching Unive rs in ty to 6-20 ity of adverse 00:00: [place] reaction 00 Medical s Branch Amoxicil Propensi Active Itching 2021-0 Unive rs alba-Pot ty to 6-20 ity of Clavulan adverse 00:00: [place] ate reaction 00 Medical s Branch Fentanyl Propensi Active Anaphylaxis 2-0 U nivers ty to 6-20 ity of adverse 00:00: [place] reaction 00 Medical s Branch Hydromor Propensi Active Anaphylaxis 2021-0 U nivers phone ty to 6-20 ity of adverse 00:00: [place] reaction 00 Medical s Branch Iodine Propensi Active Anaphylaxis 2021-0 Report Uni vers And ty to 6-20 per ity of Iodide adverse 00:00: Radiology [place] Containi reaction 00 of Medica l ng s patient Branch Products with shortness of breath and turning blue Macrolid Propensi Active Shortness of 2021-0 Univers e ty to Breath 6-20 ity of Antibiot adverse 00:00: [place] ics reaction 00 Medical s Branch Meropene Propensi Active Shortness of 2021-0 Univers m ty to Breath 6-20 ity of adverse 00:00: [place] reaction 00 Medical s Branch Nalbuphi Propensi Active Unknown - 2004-03 Uni vers ne Hcl ty to See comments 2-21 ity of adverse 00:00: [place] reaction 00 Medical s Branch Trifluop Propensi Active Unknown - 2004-03 Uni vers erazine ty to See comments 2-21 ity of Hcl adverse 00:00: [place] reaction 00 Medical s Branch Toluene Propensi Active Unknown - 2004-03 Univ ers ty to See comments 2-21 ity of adverse 00:00: [place] reaction 00 Medical s Branch sulfa Adverse Active Info Not Common Reaction Available [facility] Rocephin Adverse Active Info Not Commo n Reaction Available [facility] Macrobid Adverse Active Info Not Commo n Reaction Available [facility] Lincocin Adverse Active Info Not Commo n Reaction Available [facility] Fentanyl Adverse Active Info Not Commo n Reaction Available [facility] Betadine Adverse Active Info Not Commo n Reaction Available [facility] Augmenti Adverse Active Info Not Commo n n Reaction Available [facility] Aloe Adverse Active Info Not Common Vera Reaction Available [facility] Vancomyc Adverse Active Info Not Commo n in HCl Reaction Available [facility] Social History Social Habit Start Date Stop Date Quantity Comments Source Tobacco use and 2021-10-11 2021-10-11 Smokeless tobacco Un iversity of exposure 00:00:00 00:00:00 non-user [facility] [place] [facility] Exposure to 2021-08-18 2021-08-28 Not sure [facility] SARS-CoV-2 00:00:00 01:36:00 [facility] (event) Branch Sex Ass[birth year] At [birth year] Universit y of 00:00:00 00:00:00 [facility] [place] [facility] Smoking Status Start Date Stop Date Source Never smoked tobacco [facility] Medications Ordered Filled Start Stop Current Ordering Indication Dosage Frequency Signature Comments Components Source Medication Medication Date Date Medication? Clinician (SIG) Name Name lovastatin Yes 20mg Take 20 mg U nivers 20 mg 7-19 by mouth ity of tablet 13:28: at [place] [address] bedtime. Medical Branch metoprolol Yes 25mg Take 25 mg U nivers tartrate 25 7-19 by mouth 2 it y of mg tablet 13:28: (two) [place] [address] times Medical daily. Branch oxybutynin Yes 5mg Take 5 mg Un [place] chloride 5 7-19 by mouth 2 ity of mg tablet 13:28: (two) [place] [address] times Medical daily. Branch aspirin 81 0 Yes 81mg Take 81 mg U nivers mg chewable 7-19 by mouth ity of tablet 13:28: daily. [place] [address] Medical Branch Mometasone- 0 Yes 2{puff} Inhale 2 Univers Formoterol 7-19 Puffs 2 ity of (DULERA) 13:28: (two) [place] 200-5 55 times Medical mcg/actuati daily as Bran ch on inhaler needed. foLIC acid 0 Yes 1mg Take 1 mg Un [place] 1 mg tablet 7-19 by mouth ity of 13:28: daily. [address] furosemide 0 Yes 40mg Take 40 mg U nivers 40 mg 7-19 by mouth 2 ity of tablet 13:28: (two) [place] 55 times Medical daily. Branch gabapentin 2021-0 Yes 300mg Take 300 Un [place] 300 mg 7-19 mg by ity of capsule 13:28: mouth 3 [place] [address] (three) Medical times [place] daily as needed. lovastatin 2021-0 Yes 20mg Take 20 mg U nivers 20 mg 7-19 by mouth ity of tablet 13:28: at [place] [address] bedtime. Medical Branch metoprolol 2021-0 Yes 25mg Take 25 mg U nivers tartrate 25 7-19 by mouth 2 it y of mg tablet 13:28: (two) [place] [address] times Medical daily. Branch oxybutynin 2021-0 Yes 5mg Take 5 mg Un [place] chloride 5 7-19 by mouth 2 ity of mg tablet 13:28: (two) [place] [address] times Medical daily. Branch aspirin 81 2021-0 Yes 81mg Take 81 mg U nivers mg chewable 7-19 by mouth ity of tablet 13:28: daily. [place] [address] Medical Branch Mometasone- 2021-0 Yes 2{puff} Inhale 2 Univers Formoterol 7-19 Puffs 2 ity of (DULERA) 13:28: (two) [place] 200-5 55 times Medical mcg/actuati daily as Bran ch on inhaler needed. foLIC acid 2021-0 Yes 1mg Take 1 mg Un [place] 1 mg tablet 7-19 by mouth ity of 13:28: daily. [place] [address] Medical Branch furosemide 2021-0 Yes 40mg Take 40 mg U nivers 40 mg 7-19 by mouth 2 ity of tablet 13:28: (two) [place] [address] times Medical daily. Branch gabapentin 2021-0 Yes 300mg Take 300 Un [place] 300 mg 7-19 mg by ity of capsule 13:28: mouth 3 [place] [address] (three) Medical times [place] daily as needed. lovastatin 2021-0 Yes 20mg Take 20 mg U nivers 20 mg 7-19 by mouth ity of tablet 13:28: at [place] [address] bedtime. Medical Branch metoprolol 2-0 Yes 25mg Take 25 mg U nivers tartrate 25 7-19 by mouth 2 it y of mg tablet 13:28: (two) [place] [address] times Medical daily. Branch oxybutynin 2-0 Yes 5mg Take 5 mg Un [place] chloride 5 7-19 by mouth 2 ity of mg tablet 13:28: (two) [place] 55 times Medical daily. Branch aspirin 81 2021-0 Yes 81mg Take 81 mg U nivers mg chewable 7-19 by mouth ity of tablet 13:28: daily. [place] [address] Medical Branch Mometasone- 2021-0 Yes 2{puff} Inhale 2 Univers Formoterol 7-19 Puffs 2 ity of (DULERA) 13:28: (two) [place] 200-5 55 times Medical mcg/actuati daily as Bran ch on inhaler needed. foLIC acid 2021-0 Yes 1mg Take 1 mg Un [place] 1 mg tablet 7-19 by mouth ity of 13:28: daily. [place] [address] Medical Branch furosemide 2021-0 Yes 40mg Take 40 mg U nivers 40 mg 7-19 by mouth 2 ity of tablet 13:28: (two) [place] 55 times Medical daily. Branch gabapentin 2021-0 Yes 300mg Take 300 Un [place] 300 mg 7-19 mg by ity of capsule 13:28: mouth 3 [place] [address] (three) Medical times [place] daily as needed. aspirin 81 2021-0 Yes 81mg Take 81 mg U nivers mg chewable 6-30 by mouth ity of tablet 21:54: daily. [place] 10 [facility] Branch Mometasone- 2021-0 Yes 2{puff} Inhale 2 Univers Formoterol 6-30 Puffs 2 ity of (DULERA) 21:54: (two) [place] 200-5 10 times Medical mcg/actuati daily as Bran ch on inhaler needed. foLIC acid 2021-0 Yes 1mg Take 1 mg Un [place] 1 mg tablet 6-30 by mouth ity of 21:54: daily. [place] [address] Medical Branch furosemide 2-0 Yes 40mg Take 40 mg U nivers 40 mg 6-30 by mouth 2 ity of tablet 21:54: (two) [place] 10 times Medical daily. Branch gabapentin 2-0 Yes 300mg Take 300 Un [place] 300 mg 6-30 mg by ity of capsule 21:54: mouth 3 [place] [address] (three) Medical times [place] daily as needed. lovastatin 2-0 Yes 20mg Take 20 mg U nivers 20 mg 6-30 by mouth ity of tablet 21:54: at [place] [address] bedtime. Medical Branch metoprolol 2021-0 Yes 25mg Take 25 mg U nivers tartrate 25 6-30 by mouth 2 it y of mg tablet 21:54: (two) [place] 10 times Medical daily. Branch oxybutynin 2021-0 Yes 5mg Take 5 mg Un [place] chloride 5 6-30 by mouth 2 ity of mg tablet 21:54: (two) [place] 10 times Medical daily. Branch aspirin 81 2021-0 Yes 81mg Take 81 mg U nivers mg chewable 6-30 by mouth ity of tablet 21:54: daily. [place] [address] Medical Branch Mometasone- 2021-0 Yes 2{puff} Inhale 2 Univers Formoterol 6-30 Puffs 2 ity of (DULERA) 21:54: (two) [place] 200-5 10 times Medical mcg/actuati daily as Bran ch on inhaler needed. foLIC acid 2021-0 Yes 1mg Take 1 mg Un [place] 1 mg tablet 6-30 by mouth ity of 21:54: daily. [place] [address] Medical Branch furosemide 2021-0 Yes 40mg Take 40 mg U nivers 40 mg 6-30 by mouth 2 ity of tablet 21:54: (two) [place] 10 times Medical daily. Branch gabapentin 2021-0 Yes 300mg Take 300 Un [place] 300 mg 6-30 mg by ity of capsule 21:54: mouth 3 [place] 10 (three) Medical times [place] daily as needed. lovastatin 2021-0 Yes 20mg Take 20 mg U nivers 20 mg 6-30 by mouth ity of tablet 21:54: at [place] 10 bedtime. Medical Branch metoprolol 2021-0 Yes 25mg Take 25 mg U nivers tartrate 25 6-30 by mouth 2 it y of mg tablet 21:54: (two) [place] 10 times Medical daily. Branch oxybutynin 2021-0 Yes 5mg Take 5 mg Un [place] chloride 5 6-30 by mouth 2 ity of mg tablet 21:54: (two) [place] 10 times Medical daily. Branch aspirin 81 2021-0 Yes 81mg Take 81 mg U nivers mg chewable 6-30 by mouth ity of tablet 21:54: daily. [place] 10 Medical Branch Mometasone- 2021-0 Yes 2{puff} Inhale 2 Univers Formoterol 6-30 Puffs 2 ity of (DULERA) 21:54: (two) [place] 200-5 10 times Medical mcg/actuati daily as Bran ch on inhaler needed. foLIC acid 2021-0 Yes 1mg Take 1 mg Un [place] 1 mg tablet 6-30 by mouth ity of 21:54: daily. [place] 10 Medical Branch furosemide 2-0 Yes 40mg Take 40 mg U nivers 40 mg 6-30 by mouth 2 ity of tablet 21:54: (two) [place] 10 times Medical daily. Branch gabapentin 2021-0 Yes 300mg Take 300 Un [place] 300 mg 6-30 mg by ity of capsule 21:54: mouth 3 [place] 10 (three) Medical times Branch daily as needed. lovastatin 2021-0 Yes 20mg Take 20 mg U nivers 20 mg 6-30 by mouth ity of tablet 21:54: at [place] 10 bedtime. Medical Branch metoprolol 2021-0 Yes 25mg Take 25 mg U nivers tartrate 25 6-30 by mouth 2 it y of mg tablet 21:54: (two) [place] 10 times Medical daily. Branch oxybutynin 2021-0 Yes 5mg Take 5 mg Un [place] chloride 5 6-30 by mouth 2 ity of mg tablet 21:54: (two) [place] 10 times Medical daily. Branch ipratropium 2021-0 Yes .5mg Inhale 2.5 Univers 0.02 % 6-30 mL 3 ity of nebulizer 00:00: (three) [place] solution 00 times Medical daily. Branch levalbutero 2021-0 Yes .31mg Inhale Uni vers l 0.31 mg/3 6-30 0.31 mg 3 ity of mL 00:00: (three) [place] nebulizer 00 times Medical solution daily. Branch ondansetron 2021-0 Yes 4mg Take 2 mL U nivers 4 mg/2 mL 6-30 by mouth ity of injection 00:00: every 6 [place] 00 (six) Medical hours as Branch needed for Nausea and Vomiting (N/V). pantoprazol 2-0 Yes 40mg Take 1 Univ ers e 40 mg EC 6-30 tablet by ity of tablet 00:00: mouth 2 [place] 00 (two) Medical times Branch daily. ipratropium 2-0 Yes .5mg Inhale 2.5 Univers 0.02 % 6-30 mL 3 ity of nebulizer 00:00: (three) [place] solution 00 times Medical daily. Branch levalbutero 2022-0 Yes .31mg Inhale Uni vers l 0.31 mg/3 6-30 0.31 mg 3 ity of mL 00:00: (three) [place] nebulizer 00 times Medical solution daily. Branch ondansetron 2022-0 Yes 4mg Take 2 mL U nivers 4 mg/2 mL 6-30 by mouth ity of injection 00:00: every 6 [place] (six) Medical hours as Branch needed for Nausea and Vomiting (N/V). pantoprazol 2022-0 Yes 40mg Take 1 Univ ers e 40 mg EC 6-30 tablet by ity of tablet 00:00: mouth 2 (two) Medical times Branch daily. ipratropium 2022-0 Yes .5mg Inhale 2.5 Univers 0.02 % 6-30 mL 3 ity of nebulizer 00:00: (three) [place] solution 00 times Medical daily. Branch levalbutero 2022-0 Yes .31mg Inhale Uni vers l 0.31 mg/3 6-30 0.31 mg 3 ity of mL 00:00: (three) [place] nebulizer 00 times Medical solution daily. Branch ondansetron 2022-0 Yes 4mg Take 2 mL U nivers 4 mg/2 mL 6-30 by mouth ity of injection 00:00: every 6 [place] (six) Medical hours as Branch needed for Nausea and Vomiting (N/V). pantoprazol 2022-0 Yes 40mg Take 1 Univ ers e 40 mg EC 6-30 tablet by ity of tablet 00:00: mouth 2 [place] 00 (two) Medical times Branch daily. ipratropium 2022-0 Yes .5mg Inhale 2.5 Univers 0.02 % 6-30 mL 3 ity of nebulizer 00:00: (three) [place] solution 00 times Medical daily. Branch levalbutero 2022-0 Yes .31mg Inhale Uni vers l 0.31 mg/3 6-30 0.31 mg 3 ity of mL 00:00: (three) [place] nebulizer 00 times Medical solution daily. Branch ondansetron 2022-0 Yes 4mg Take 2 mL U nivers 4 mg/2 mL 6-30 by mouth ity of injection 00:00: every 6 (six) Medical hours as Branch needed for Nausea and Vomiting (N/V). pantoprazol 2021-0 Yes 40mg Take 1 Univ ers e 40 mg EC 6-30 tablet by ity of tablet 00:00: mouth 2 (two) Medical times Branch daily. ipratropium 2021-0 Yes .5mg Inhale 2.5 Univers 0.02 % 6-30 mL 3 ity of nebulizer 00:00: (three) [place] solution 00 times Medical daily. Branch levalbutero 2021-0 Yes .31mg Inhale Uni vers l 0.31 mg/3 6-30 0.31 mg 3 ity of mL 00:00: (three) [place] nebulizer 00 times Medical solution daily. Branch ondansetron 2021-0 Yes 4mg Take 2 mL U nivers 4 mg/2 mL 6-30 by mouth ity of injection 00:00: every 6 [place] (six) Medical hours as Branch needed for Nausea and Vomiting (N/V). pantoprazol 2021-0 Yes 40mg Take 1 Univ ers e 40 mg EC 6-30 tablet by ity of tablet 00:00: mouth 2 (two) Medical times Branch daily. Metoprolol Metoprolol 0 Yes Na Gutierrez 1 tablet Common Tartrate Tartrate 8 with food Sp dre 00:00: - [facility] Doxycycline Doxycycline 2017-03 Yes Na Gutierrez 1 capsule Common Hyclate Hyclate 1-21 Spirit 00:00: - [facility] NAPROXEN 2004- Yes 1tab po q Univ ers 250 MG ORAL 2-22 6 hrs prn ity of TAB 00:00: pain [place] [address] Medical Branch FAMOTIDINE 2004- Yes 1 tab po Uni vers 20 MG ORAL 2-22 qd ity of TAB 00:00: [place] [facility] FUROSEMIDE 2004- Yes 1 tab po Uni vers 20 MG ORAL 2-22 bid ity of TAB 00:00: [place] [facility] NAPROXEN 2004- Yes 1tab po q Univ ers 250 MG ORAL 2-22 6 hrs prn ity of TAB 00:00: pain Medical Branch FAMOTIDINE 2004- Yes 1 tab po Uni vers 20 MG ORAL 2-22 qd ity of TAB 00:00: [place] [address] Medical Branch FUROSEMIDE 2004-03 Yes 1 tab po Uni vers 20 MG ORAL 2-22 bid ity of TAB 00:00: [place] [facility] NAPROXEN 2004-03 Yes 1tab po q Univ ers 250 MG ORAL 2-22 6 hrs prn ity of TAB 00:00: pain Medical Branch FAMOTIDINE 2004-03 Yes 1 tab po Uni vers 20 MG ORAL 2-22 qd ity of TAB 00:00: [place] [address] Medical Branch FUROSEMIDE 2004-03 Yes 1 tab po Uni vers 20 MG ORAL 2-22 bid ity of TAB 00:00: [place] [facility] Metoprolol Metoprolol Yes Na Gutierrez 1/2 tablet Common Tartrate Tartrate with food Sp [facility] Vital Signs Vital Name Observation Time Observation Value Comments Source Systolic blood 2021-10-11 18:44:00 106 mm[Hg] Univer sity [facility] Diastolic blood 2021-10-11 18:44:00 66 [facility]Hg[facility] 2021-10-11 18:44:00 62 /min [facility] Body temperature 2021-10-11 18:44:00 36.78 Jacquelin [facility] Respiratory rate 2021-10-11 18:44:00 16 /min [facility] Body height 2021-10-11 18:44:00 162.6 cm [facility] Body weight 2021-10-11 18:44:00 130.636 kg [facility] BMI 2021-10-11 18:44:00 49.44 kg/m2 [facility] Procedures Procedure Date / Time Performed Performing Clinician Sour e EXTERNAL PROVIDER 2021-09-19 05:01:00 Doctor Unassigned, No Univ [facility] RECORDS Name [facility] Encounters Start End Encounter Admission Attending Care Care Encounter Source Date/Time Date/Time Type Type Clinicians Facility Department ID 2021-09-12 [id number] Common 10:05:00 [facility] 2021-07-13 [facility] [id number] 2 Common 12:02:00 [facility] 2021-07-12 Outpatient Gutierrez, Na STLMLC STLMLC [id number] Common 13:49:00 [facility] 2021-06-11 Outpatient Gutierrez, Na STLMLC STLMLC [id number] 2 Common 08:32:00 [facility] 2021-06-05 Outpatient Gutierrez, Na STLMLC STLMLC [id number] 2 Common 11:00:01 [facility] 2021-05-31 Outpatient Gutierrez, Na STLMLC STLMLC [id number] 2 Common 09:00:01 [facility] 2021-05-14 Outpatient Gutierrez, Na STLMLC STLMLC [id number] 2 Common 09:20:01 [facility] 2021-04-26 Outpatient Gutierrez, Na STLMLC STLMLC [id number] 2 Common 15:13:00 [facility] 2021-04-04 Outpatient Gutierrez, Na STLMLC STLMLC [id number] 2 Common 13:37:41 [id number] [facility] 2021-04-04 Outpatient Gutierrez, Na STLMLC STLMLC [id number] 2 Common 13:27:35 [id number] [facility] 2021-04-04 Outpatient Gutierrez, Na STLMLC STLMLC [id number] 2 Common 13:10:57 [id number] [facility] 2021-04-04 Outpatient Gutierrez, Na STLMLC STLMLC [id number] 2 Common 12:33:38 [id number] [facility] 2021-04-04 Outpatient Gutierrez, Na STLMLC STLMLC [id number] 2 Common 12:33:09 [id number] [facility] 2021-04-04 Outpatient Gutierrez, Na STLMLC STLMLC [id number] 2 Common 11:19:52 [facility] 2021-04-04 Outpatient Gutierrez, Na STLMLC STLMLC [id number] 2 Common 11:19:18 [facility] 2021-10-12 2021-10-12 Telephone GARRICK Avery [id number] Univers 00:00:00 00:00:00 [facility] [id number] i ty of [facility] [id number] [place] as [id number] [facility] 204 Branch 2021-10-11 2021-10-11 Office AMINATA Avery [id number] Univers 13:15:00 13:30:00 Visit [facility] [id number] i ty of [facility] [id number] Bunny as [id number] [facility] 204 Branch 2021-09-19 2021-09-19 [facility] [id number] Univers 00:00:00 00:00:00 Crystal BUTLER [id number] i ty [id number] [facility] [id number] Ca dical [facility] [address] [facility] 2021-09-19 2021-09-19 Orders Doctor MARIJA [id number] Univers 00:00:00 00:00:00 Only Unassigned, ELENI [id number] ity of [place] [facility] [id number] [place] as [id number] [facility] 009 Branch 2021-09-13 2021-09-13 [facility] [id number] Common 00:00:00 00:00:00 [facility] 2021-09-03 2021-09-03 [facility] [id number] Univers 00:00:00 00:00:00 Robina BECK [id number] ity of [id number] [id number] [facility] [place] [address] Branch [facility] 2021-08-10 2021-08-10 ambulatory STLC ST[facility] [id number] Common 00:00:00 00:00:00 [facility] 2021-08-09 2021-08-09 ambulatory STLMLC STLMLC [id number] Common 00:00:00 00:00:00 [facility] 2021-08-09 2021-08-09 ambulatory STLMLC STLMLC [id number] Common 00:00:00 00:00:00 [facility] 2021-07-19 2021-07-19 ambulatory STLMLC STLMLC [id number] Common 00:00:00 00:00:00 [facility] 2021-07-13 2021-07-13 ambulatory STLMLC STLMLC [id number] Common 00:00:00 00:00:00 [facility] 2021-07-12 2021-07-12 ambulatory STLMLC STLMLC [id number] Common 00:00:00 00:00:00 [facility] 2021-06-28 2021-06-28 ambulatory STLMLC STLMLC [id number] Common 00:00:00 00:00:00 [facility] 2021-06-13 2021-06-13 ambulatory STLMLC STLMLC [id number] Common 00:00:00 00:00:00 [facility] 2021-06-12 2021-06-12 ambulatory STLMLC STLMLC [id number] Common 00:00:00 00:00:00 [facility] 2021-06-04 2021-06-04 ambulatory STLMLC STLMLC [id number] Common 00:00:00 00:00:00 [facility] 2021-05-28 2021-05-28 ambulatory STLMLC STLMLC [id number] Common 00:00:00 00:00:00 [facility] 2021-05-14 2021-05-14 ambulatory STLMLC STLMLC [id number] Common 00:00:00 00:00:00 [facility] 2021-04-26 2021-04-26 ambulatory STLMLC STLMLC [id number] Common 00:00:00 00:00:00 [facility] 2021-04-12 2021-04-12 ambulatory STLMLC STLMLC [id number] Common 00:00:00 00:00:00 [facility] 2021-03-30 2021-03-30 ambulatory STLMLC STLMLC [id number] Common 00:00:00 00:00:00 [facility] 2021-02-27 2021-02-27 ambulatory STLMLC STLMLC [id number] Common 00:00:00 00:00:00 [facility] 2021-01-01 2021-01-01 Outpatient STLMLC STLMLC [id number] Common 00:00:00 00:00:00 [facility] 2020-12-19 2020-12-19 Outpatient STLMLC STLMLC [id number] Common 00:00:00 00:00:00 [facility] 2020-10-26 2020-10-26 Outpatient STLMLC STLMLC [id number] Common 00:00:00 00:00:00 [facility] 2020-10-26 2020-10-26 Outpatient STLMLC STLMLC [id number] Common 00:00:00 00:00:00 [facility] 2020-10-19 2020-10-19 Outpatient STLMLC STLMLC [id number] Common 00:00:00 00:00:00 [facility] 2020-10-11 2020-10-11 Outpatient STLMLC STLMLC [id number] Common 00:00:00 00:00:00 [facility] 2020-09-27 2020-09-27 Outpatient STLMLC STLMLC [id number] Common 00:00:00 00:00:00 [facility] 2020-09-27 2020-09-27 Outpatient STLMLC STLMLC [id number] Common 00:00:00 00:00:00 [facility] 2020-09-22 2020-09-22 Outpatient STLMLC STLMLC [id number] Common 00:00:00 00:00:00 [facility] 2020-08-15 2020-08-15 Outpatient STLMLC STLMLC [id number] Common 00:00:00 00:00:00 [facility] 2020-07-21 2020-07-21 Outpatient STLMLC STLMLC [id number] Common 00:00:00 00:00:00 [facility] 2020-07-03 2020-07-03 Outpatient STLMLC STLMLC [id number] Common 00:00:00 00:00:00 [facility] 2020-06-30 2020-06-30 Outpatient STLMLC STLMLC [id number] Common 00:00:00 00:00:00 [facility] 2020-06-30 2020-06-30 Outpatient STLMLC STLMLC [id number] Common 00:00:00 00:00:00 [facility] 2020-06-27 2020-06-27 Outpatient STLMLC STLMLC [id number] Common 00:00:00 00:00:00 [facility] 2020-06-07 2020-06-07 Outpatient STLMLC STLMLC [id number] Common 00:00:00 00:00:00 [facility] 2020-05-29 2020-05-29 Outpatient STLMLC STLMLC [id number] Common 00:00:00 00:00:00 [facility] 2020-05-23 2020-05-23 Outpatient STLMLC STLMLC [id number] Common 00:00:00 00:00:00 [facility] 2020-05-11 2020-05-11 Outpatient STLMLC STLMLC [id number] Common 00:00:00 00:00:00 [facility] 2020-05-07 2020-05-07 Outpatient STLMLC STLMLC [id number] Common 00:00:00 00:00:00 [facility] 2020-05-04 2020-05-04 Outpatient STLMLC STLMLC [id number] Common 00:00:00 00:00:00 [facility] 2020-04-19 2020-04-19 Outpatient STLMLC STLMLC [id number] Common 00:00:00 00:00:00 [facility] 2020-04-04 2020-04-04 Outpatient STLMLC STLMLC [id number] Common 00:00:00 00:00:00 [facility] 2020-02-04 2020-02-04 Outpatient STLMLC STLMLC [id number] Common 00:00:00 00:00:00 [facility] 2020-02-01 2020-02-01 Outpatient STLMLC STLMLC [id number] Common 00:00:00 00:00:00 [facility] 2020-01-05 2020-01-05 Outpatient STLMLC STLMLC [id number] Common 00:00:00 00:00:00 [facility] 2019-12-20 2019-12-20 Outpatient STLMLC STLMLC [id number] Common 00:00:00 00:00:00 [facility] 2019-12-19 2019-12-19 Outpatient STLMLC STLMLC [id number] Common 00:00:00 00:00:00 [facility] 2019-12-17 2019-12-17 Outpatient STLMLC STLMLC [id number] Common 00:00:00 00:00:00 [facility] 2019-11-03 2019-11-03 [id number] Common 10:19:00 10:19:[address] [facility] 2019-10-06 2019-10-06 [facility] [id number] Common 16:47:00 16:47:[address] [facility] 2019-09-30 2019-09-30 [facility] [id number] Common 14:56:00 14:56:[address] [facility] 2019-09-14 2019-09-14 [facility] [id number] Common 13:55:00 13:55:[address] [facility] 2019-08-12 2019-08-12 [facility] [id number] Common 11:39:00 11:39:[address] [facility] 2019-07-09 2019-07-09 [facility] [id number] Common 11:26:00 11:26:[address] [facility] 2019-07-06 2019-07-06 [facility] [id number] Common 14:00:00 14:00:[address] [facility] 2019-06-11 2019-06-11 [facility] [id number] Common 10:29:00 10:29:[address] [facility] 2019-06-08 2019-06-08 [facility] [id number] Common 10:57:00 10:57:[address] [facility] 2019-05-24 2019-05-24 [facility] [id number] Common 14:44:00 14:44:[address] [facility] 2019-04-12 2019-04-12 [facility] [id number] Common 10:58:00 10:58:[address] [facility] 2019-04-08 2019-04-08 [facility] [id number] Common 17:13:00 17:13:[address] [facility] 2019-03-26 2019-03-26 [facility] [id number] Common 07:58:00 07:58:[address] [facility] 2019-02-01 2019-02-01 [facility] [id number] Common 10:49:00 10:49:[address] [facility] 2019-01-21 2019-01-21 [facility] [id number] Common 12:09:00 12:09:[address] [facility] 2018-12-31 2018-12-31 [facility] [id number] Common 13:40:00 13:40:[address] [facility] 2018-12-24 2018-12-24 [facility] [id number] Common 16:51:00 16:51:[address] [facility] 2018-12-22 2018-12-22 [facility] [id number] Common 10:09:00 10:09:[address] [facility] 2018-12-16 2018-12-16 [facility] [id number] Common 13:32:00 13:32:[address] [facility] 2018-12-09 2018-12-09 [facility] [id number] Common 15:07:00 15:07:[address] [facility] 2018-12-08 2018-12-08 [facility] [id number] Common 09:21:00 09:21:[address] [facility] 2018-12-07 2018-12-07 [facility] [id number] Common 15:10:00 15:10:[address] [facility] 2018-10-29 2018-10-29 [facility] [id number] Common 11:00:00 11:00:[address] [facility] 2018-10-20 2018-10-20 [facility] [id number] Common 13:23:00 13:23:[address] [facility] 2018-10-05 2018-10-05 [facility] [id number] Common 16:27:00 16:27:[address] [facility] 2018-09-25 2018-09-25 [facility] [id number] Common 16:15:00 16:15:[address] [facility] 2018-09-23 2018-09-23 [facility] [id number] Common 15:54:00 15:54:[address] [facility] 2018-08-27 2018-08-27 [facility] [id number] Common 16:00:00 16:00:[address] [facility] 2018-08-25 2018-08-25 [facility] [id number] Common 15:20:00 15:20:[address] [facility] Results This patient has no known results.
[2021-10-15 14:42] LABS: Absolute Lymphocytes (CBC) 2.2 K/uL (0.7-4.9); Hematocrit 34.7 % (36.0-45.0); Lymphocytes % 18.1 % (15.3-44.8); MCV 84.3 fL (80-100); MPV 8.2 fL (7.6-11.3); RBC Red Blood Cell Count 4.11 M/uL (3.86-4.86)
[2021-10-15] MEDS ORDERED: MORPHINE 2 MG/ML SYR ONE (14:45)
[2021-10-15] MEDS ORDERED: ONDANSETRON 4 MG/2 ML VIAL ONE (14:45)
--- NOTE | 2021-10-15 15:00 | RAD REPORT ---
EXAM DESCRIPTION: CTStone Protocol - 10/15/2021 2:30 pm CLINICAL HISTORY: suprapubic pain, flank pain COMPARISON: Abdomen Pelvis Wo Contrast dated 08/27/2021; Abdomen Pelvis Wo Contrast dated 021; Abdomen Pelvis Wo Contrast dated 01/14/2021; Abdomen Pelvis Wo Contrast dated 07/03/2018 TECHNIQUE: CT of the abdomen and pelvis was performed. All CT scans are performed using dose optimization technique as appropriate and may include automated exposure control or mA/KV adjustment according to patient size. FINDINGS: Lower chest: No acute abnormality. Liver: No acute abnormality or suspicious lesions. Biliary: No biliary ductal dilatation. Stomach: No significant focal abnormality. Duodenum: No significant focal abnormality. Pancreas: No significant abnormality. Spleen: No significant abnormality. Adrenal: Left adrenal myelolipomas. Kidney/ureter: Right-sided nephrostomy tube in place. No hydronephrosis. Staghorn calculus in the low er pole the right kidney measuring approximately 12 millimeters unchanged. No ureteral calculi. Sever al left renal calculi including a stone in the left renal pelvis measuring 11 millimeters. Retroperitoneum: No retroperitoneal adenopathy. Enlarged inguinal lymph nodes are unchanged. These ar e likely reactive. Vascular: No aneurysm. Bowel: Normal appendix. No bowel obstruction.. Peritoneum: No ascites or free air. Gastric banding. Bladder: Suprapubic catheter. Large bladder calculus. Reproductive: No adnexal masses. Bones: No acute fracture. Other: n/a IMPRESSION: 1. Interval placement of a right-sided nephrostomy tube. Hydronephrosis has resolved. Th e stone burden in the right kidney has decreased and the previously noted right UPJ stone is no longe r identified. 2. Suprapubic catheter with larger bladder calculus.
[2021-10-15] MEDS ORDERED: HYDROCODONE/APAP 10/325 TAB ONE (15:53)
[2021-10-15] MEDS ORDERED: KETOROLAC 30 MG/ML INJ ONE (15:53)
[2021-10-15 16:00] LABS: AST/SGOT 9 U/L (15-37); Albumin 2.7 g/dL (3.4-5.0); Alkaline Phosphatase 81 U/L (45-117); BUN Blood Urea Nitrogen 26 mg/dL (7-18); Bicarbonate 27 mmol/L (21-32); Bilirubin Total 0.4 mg/dL (0.2-1.0); Glomerular Filtration Rate 61 ml/min (=/>90); Glucose Level 110 mg/dL (74-106); Lipase 34 U/L (73-393); Protein, Total 6.9 g/dL (6.4-8.2); Sodium Level 137 mmol/L (136-145)
[2021-10-15 16:02] LABS: Urine Blood 3+ (Negative); Urine Glucose Negative (Negative); Urine Protein 2+ (Negative); Urine Specific Gravity 1.015 (1.005-1.030); Urine pH >=9.0 (5.0-7.0)
[2021-10-15 16:06] LABS: Urine Blood 2+ (Negative); Urine Glucose Negative (Negative); Urine Protein 3+ (Negative); Urine pH >=9.0 (5.0-7.0)
[2021-10-15 16:10] LABS: ALT/SGPT < 10 U/L (12-78)
[2021-10-15] MEDS ORDERED: CIPROFLOXACIN HCL 500 MG TAB ONE (17:08)
[2021-10-15] MEDS ORDERED: POTASSIUM 25 MEQ EFFERV TAB ONE (17:08)
--- NOTE | 2021-10-15 17:40 | ER ---
Nurse's Notes [facility] Name: Jv Bryant Age: 66 yrs Sex: Female : 1955 Arrival Date: 10/15/2021 Time: 13:52 Bed 16 Private MD: Diagnosis: UTI/ Urinary tract infection, site not specified;Calculus of lower urinary tract, unspecified-bladder;Hypokalemia Presentation: 10/15 13:54 Chief complaint: Patient states: pt presented To ed reporting back and abdominal pain. díaz pt dx with kidney stones and bladder stones. pt has nephrostomy tube and mariee. coming ion for pain management. Coronavirus screen: Vaccine status: Patient reports being unvaccinated. Ebola Screen: Patient denies travel to an Ebola-affected area in the 21 days before illness onset. Initial Sepsis Screen: Does the patient meet any 2 criteria? RR > 20 per min. No. Patient's initial sepsis screen is negative. Does the patient have a suspected source of infection? No. Patient's initial sepsis screen is negative. Risk Assessment: Do you want to hurt yourself or someone else? Patient reports no desire to harm self or others. Onset of symptoms was 2021. 13:54 Method Of Arrival: EMS: [facility] díaz 13:54 Acuity: SKYLER 3 díaz Triage Assessment: 13:57 General: Appears uncomfortable, Behavior is agitated, anxious. Pain: Complains of pain díaz in back and abdomen. Historical: - Allergies: 13:57 aloe vera; díaz 13:57 Augmentin; díaz 13:57 Dilaudid; díaz 13:57 Fentanyl; díaz 13:57 FLU VACCINE; díaz 13:57 Iodine; díaz 13:57 Macrolide Antibiotics; díaz 13:57 meropenem; díaz 13:57 pneumonia vaccine; díaz 13:57 Rocephin; díaz 13:57 Stelazine; díaz 13:57 Sulfa (Sulfonamide Antibiotics); díaz 13:57 Vancomycin; díaz - PMHx: 13:57 ADD/ADHD; Arthritis; Chronic pain; COPD; Fibromyalgia; frequent UTI'S; heart disease- díaz unspecified; Hyperlipidemia; Hypertension; insomnia; lymphedema; PERIPHERAL NEUROPATHY; unspecified kidney failure; - Immunization history:: Adult Immunizations up to date. - Social history:: Smoking status: Patient denies any tobacco usage or history of. Screenin:28 Abuse screen: Denies threats or abuse. Denies injuries from another. Nutritional jh6 screening: No deficits noted. Tuberculosis screening: No symptoms or risk factors identified. Fall Risk Secondary diagnosis (15 points) impaired mobility, IV access (20 points). Assessment: 14:00 General: Appears uncomfortable, Behavior is cooperative, crying. jh6 14:00 Pain: Complains of pain in suprapubic area Pain currently is 9 out of 10 on a pain jh6 scale. Quality of pain is described as crampy, sharp, Pain began suddenly, Is intermittent, Alleviated by medications. 15:00 Reassessment: No changes from previously documented assessment. Patient and/or family jh6 updated on plan of care and expected duration. Pain level reassessed. 16:30 General: Appears comfortable. jh6 16:30 Pain: Complains of pain in pelvis Pain currently is 3 out of 10 on a pain scale. jh6 Quality of pain is described as crampy, sharp. 17:30 Reassessment: No changes from previously documented assessment. Patient and/or family jh6 updated on plan of care and expected duration. Pain level reassessed. pt wanting to be admitted to hospital. states that she was kicked out or d/c from rehab today and that she needs to stay in hospital for 2-3 days to be readmitted to rehab. Vital Signs: 13:54 BP 122 / 51; Pulse 68; Resp 19; Temp 98.3; Pulse Ox 98% ; Weight 156.49 kg; Height 5 díaz ft. 2 in. (157.48 cm); 14:00 BP 102 / 54; Pulse 57; Resp 18; Pulse Ox 97% ; jh6 16:00 BP 100 / 64; Pulse 62; Resp 18; Pulse Ox 98% ; Pain 4/10; jh6 17:00 BP 117 / 70; Pulse 76; Resp 19; Pulse Ox 100% ; Pain 6/10; jh6 18:30 BP 117 / 78; Pulse 76; Resp 17; Temp 97.7(TE); Pulse Ox 98% ; Pain 4/10; jh6 13:54 Body Mass Index 63.10 (156.49 kg, 157.48 cm) díaz ED Course: 13:52 Patient arrived in ED. bd 13:54 Pascual Merino PA is PHCP. cp 13:54 Chip Bettencourt MD is Attending Physician. cp 13:57 Triage completed. díaz 13:57 Arm band placed on. díaz 14:19 Martha Yao, ALO is Primary Nurse. jh6 14:[address] via stretcher. jh6 14:28 No provider procedures requiring assistance completed. Maintain EMS IV. Dressing jh6 intact. Good blood return noted. Site clean \T\ dry. Gauge \T\ site: 20g l ac. 14:29 Placed in gown. Bed in low position. Call light in reach. Side rails up X 1. jh6 14:32 CT Stone Protocol In Process Unspecified. EDMS 18:30 IV discontinued, intact, bleeding controlled, No redness/swelling at site. Pressure jh6 dressing applied. Administered Medications: 14:50 Drug: Zofran (Ondansetron) 4 mg Route: IVP; Site: left antecubital; jh6 14:51 Drug: morphine 2 mg Route: IVP; Infused Over: 4 mins; Site: left antecubital; jh6 16:00 Drug: HYDROcodone-acetaminophen 10 mg-325 mg 1 tabs Route: PO; jh6 19:01 Follow up: Response: Pain is decreased jh6 16:17 Drug: Ketorolac 15 mg Route: IVP; Site: left antecubital; jh6 19:00 Follow up: Response: No adverse reaction; Pain is decreased jh6 17:06 Drug: Cipro (ciprofloxacin) 500 mg Route: PO; jh6 19:01 Follow up: Response: No adverse reaction jh6 17:06 Drug: Potassium Effervescent Tablet 50 mEq Route: PO; jh6 19:01 Follow up: Response: No adverse reaction 6 Medication: 19:10 VIS not applicable for this client. jh6 Outcome: 17:40 Discharge ordered by . cp 19:09 Discharged to home via ambulance. jh6 19:09 Condition: stable 19:09 Discharge instructions given to patient, family, Instructed on discharge instructions, follow up and referral plans. Demonstrated understanding of instructions, follow-up care, medications, Prescriptions given X 3. 19:10 Patient left the ED. jh6 Signatures: Dispatcher [employer] EDMS Clementina De Anda Corey, PA PA cp Hastedt, Jennifer, RN RN jh6 Au-Stager, Carole, RN RN díaz
--- NOTE | 2021-10-15 17:41 | EDPHYS ---
Physician Documentation [facility] Name: Jv Ortiz Short Age: 66 yrs Sex: Female : 1955 Arrival Date: 10/15/2021 Time: 13:52 Bed 16 Private MD: ED Physician Chip Bettencourt HPI: 10/15 14:00 This 66 yrs old Female presents to ER via EMS with complaints of Abdominal Pain. cp 14:00 The patient presents with abdominal pain in the lower abdomen. cp 14:00 Associated signs and symptoms: Pertinent positives: nausea, mid back pain, Pertinent cp negatives: chest pain, constipation, diarrhea, fever, shortness of breath, vomiting. Severity of pain: in the emergency department the pain is unchanged despite home interventions. Patient reports history of right side kidney stone and bladder stone. Patient reports being discharged from short term rehab facility today. Presents to ED for pain control. Denies fever. Historical: - Allergies: 13:57 aloe vera; díaz 13:57 Augmentin; díaz 13:57 Dilaudid; díaz 13:57 Fentanyl; díaz 13:57 FLU VACCINE; díaz 13:57 Iodine; díaz 13:57 Macrolide Antibiotics; díaz 13:57 meropenem; díaz 13:57 pneumonia vaccine; díaz 13:57 Rocephin; díaz 13:57 Stelazine; díaz 13:57 Sulfa (Sulfonamide Antibiotics); díaz 13:57 Vancomycin; díaz - PMHx: 13:57 ADD/ADHD; Arthritis; Chronic pain; COPD; Fibromyalgia; frequent UTI'S; heart disease- díaz unspecified; Hyperlipidemia; Hypertension; insomnia; lymphedema; PERIPHERAL NEUROPATHY; unspecified kidney failure; - Immunization history:: Adult Immunizations up to date. - Social history:: Smoking status: Patient denies any tobacco usage or history of. ROS: 14:05 Constitutional: Negative for body aches, chills, fever, poor PO intake. cp 14:05 Eyes: Negative for injury, pain, redness, and discharge. cp 14:05 ENT: Negative for drainage from ear(s), ear pain, sore throat, difficulty swallowing, difficulty handling secretions. 14:05 Cardiovascular: Negative for chest pain, palpitations. 14:05 Respiratory: Negative for cough, shortness of breath, wheezing. 14:05 Abdomen/GI: Positive for abdominal pain, nausea, of the suprapubic area, Negative for vomiting, diarrhea, constipation. 14:05 Back: Positive for pain at rest, of the right mid back. 14:05 Skin: Negative for rash. 14:05 Neuro: Negative for altered mental status, dizziness, headache, weakness. 14:05 All other systems are negative. Exam: 14:10 Constitutional: The patient appears in no acute distress, alert, awake, cp non-diaphoretic, non-toxic, well developed, well nourished, obese. 14:10 Head/Face: Normocephalic, atraumatic. cp 14:10 Eyes: Periorbital structures: appear normal, Conjunctiva: normal, no exudate, no injection, Sclera: no appreciated abnormality, Lids and lashes: appear normal, bilaterally. 14:10 ENT: External ear(s): are unremarkable, Nose: is normal, Mouth: Lips: moist, Oral mucosa: pink and intact, moist, Posterior pharynx: Airway: no evidence of obstruction, patent. 14:10 Neck: ROM/movement: is normal, is supple, without pain, no range of motions limitations. 14:10 Chest/axilla: Inspection: normal. 14:10 Cardiovascular: Rate: normal, Rhythm: regular. 14:10 Respiratory: the patient does not display signs of respiratory distress, Respirations: normal, no use of accessory muscles, no retractions, labored breathing, is not present, Breath sounds: are clear throughout, no decreased breath sounds, no stridor, no wheezing. 14:10 Abdomen/GI: Inspection: suprapubic catheter noted to be draining straw colored urine, Bowel sounds: active, all quadrants, Palpation: soft, in all quadrants, moderate abdominal tenderness, in the suprapubic area, rebound tenderness, is not appreciated, involuntary guarding, is not appreciated. 14:10 Back: pain, that is moderate, of the right mid back, ROM is painful, with all movement, right nephrostomy tube in place and draining straw colored urine. 14:10 Neuro: Orientation: to person, place \T\ time. Mentation: is normal. Vital Signs: 13:54 BP 122 / 51; Pulse 68; Resp 19; Temp 98.3; Pulse Ox 98% ; Weight 156.49 kg; Height 5 díaz ft. 2 in. (157.48 cm); 14:00 BP 102 / 54; Pulse 57; Resp 18; Pulse Ox 97% ; jh6 16:00 BP 100 / 64; Pulse 62; Resp 18; Pulse Ox 98% ; Pain 4/10; jh6 17:00 BP 117 / 70; Pulse 76; Resp 19; Pulse Ox 100% ; Pain 6/10; jh6 18:30 BP 117 / 78; Pulse 76; Resp 17; Temp 97.7(TE); Pulse Ox 98% ; Pain 4/10; jh6 13:54 Body Mass Index 63.10 (156.49 kg, 157.48 cm) díaz MDM: 14:05 Patient medically screened. cp 15:00 Differential diagnosis: Pyelonephritis, Ureterolithiasis, urinary tract infection, cp sepsis. 17:40 Data reviewed: vital signs, nurses notes, lab test result(s), radiologic studies, CT cp scan. 17:40 Counseling: I had a detailed discussion with the patient and/or guardian regarding: the cp historical points, exam findings, and any diagnostic results supporting the discharge/admit diagnosis, lab results, radiology results, to return to the emergency department if symptoms worsen or persist or if there are any questions or concerns that arise at home. Response to treatment: the patient's symptoms have mildly improved after treatment, and as a result, I will discharge patient. ED course: VSS. Patient non-toxic. Will discharge to home with RX for oral antibiotic. Patient instructed to f/u with PCP. 10/15 14:05 Order name: CBC with Diff; Complete Time: 15:11 cp 10/15 15:11 Interpretation: Normal except: WBC 11.9; HGB 11.8; HCT 34.7; RDW 16.3; NEUT A 8.6. cp 10/15 14:05 Order name: CMP; Complete Time: 16:32 cp 10/15 16:32 Interpretation: Normal except: K 3.0; GLUC 110; BUN 26; GFR 61; AST 9; ALT < 10; ALB cp 2.7; GLOB 4.2; A/G 0.6. 10/15 14:05 Order name: Lipase; Complete Time: 16:32 cp 10/15 16:03 Order name: Urine Dipstick-Ancillary; Complete Time: 16:32 EDMS 10/15 16:58 Interpretation: Normal except: UBLD 3+; UPROT 2+; UNIT Positive; UESTR 3+. cp 10/15 16:06 Order name: Urine Dipstick-Ancillary; Complete Time: 16:32 EDMS 10/15 16:59 Interpretation: Normal except: UBLD 2+; UPROT 3+; UESTR 3+. cp 10/15 14:05 Order name: IV Saline Lock; Complete Time: 14:28 cp 10/15 14:07 Order name: CT Stone Protocol; Complete Time: 15:11 cp 10/15 14:05 Order name: Labs collected and sent; Complete Time: 14:28 cp 10/15 15:08 Order name: Labs - recollect needed: recollect green top; Complete Time: 15:41 bd 10/15 15:18 Order name: Urine Dipstick-Ancillary (obtain specimen): please obtain sample from right cp nephrostomy tube and also suprapubic catheter; Complete Time: 16:18 Administered Medications: 14:50 Drug: Zofran (Ondansetron) 4 mg Route: IVP; Site: left antecubital; [facility] 14:51 Drug: morphine 2 mg Route: IVP; Infused Over: 4 mins; Site: left antecubital; [facility] er 16:00 Drug: HYDROcodone-acetaminophen 10 mg-325 mg 1 tabs Route: PO; 6 19:01 Follow up: Response: Pain is decreased [facility] er 16:17 Drug: Ketorolac 15 mg Route: IVP; Site: left antecubital; 6 19:00 Follow up: Response: No adverse reaction; Pain is decreased [facility] er 17:06 Drug: Cipro (ciprofloxacin) 500 mg Route: PO; [facility] 19:01 Follow up: Response: No adverse reaction [facility] 17:06 Drug: Potassium Effervescent Tablet 50 mEq Route: PO; 6 19:01 Follow up: Response: No adverse reaction [facility] Disposition Summary: 10/15/21 17:40 Discharge Ordered Location: Home cp Problem: new cp Symptoms: have improved cp Condition: Stable cp Diagnosis - UTI/ Urinary tract infection, site not specified cp - Calculus of lower urinary tract, unspecified - bladder cp - Hypokalemia cp Followup: cp - With: Private Physician - When: 1 - 2 days - Reason: Recheck today's complaints Discharge Instructions: - Discharge Summary Sheet cp - Potassium Content of Foods cp - Urinary Tract Infection, Adult cp - Hypokalemia cp Forms: - Medication Reconciliation Form cp - Thank You Letter cp - Antibiotic Education cp - Prescription Opioid Use cp - SBAR form [id number] Prescriptions: - Cipro 500 mg Oral Tablet - take 1 tablet by ORAL route every 12 hours for 7 days; 14 tablet; Refills: 0, cp Product Selection Permitted - Pyridium 200 mg Oral Tablet - take 1 tablet by ORAL route every 8 hours for 3 days; 9 tablet; Refills: 0, cp Product Selection Permitted - Tylenol-Codeine #3 300 mg-30 mg Oral - take 2 tablet by ORAL route every 6-8 hours; 14 tablet; Refills: 0, Product cp Selection Permitted - Diclofenac Sodium 75 mg Oral Tablet Sustained Release - take 1 tablet by ORAL route 2 times per day; 30 tablet; Refills: 0, Product cp Selection Permitted Addendum: 10/16/2021 21:45 Co-signature as Attending Physician, Chip Bettencourt MD. r n Signatures: Dispatcher [employer] Clementina Dobbs Roman, MD MD rn Pascual Merino PA PA cp Martha Yao RN RN jh6 Carole Marquez RN RN díaz Corrections: (The following items were deleted from the chart) 19:00 08 14:00 Patient reports history of right side kidney stone and bladder stone. cp Patient reports . cp
[2021-10-15 21:53] VITALS: BP 117/78; TEMP 97.7; O2SAT 98
== END 2021-10-15 19:10 | disposition home or self-care (01) ==
LOC: ER 13:47
DX: N39.0 Urinary tract infection, site not specified (principal); N21.0 Calculus in bladder; E87.6 Hypokalemia; I13.10 Hypertensive heart and chronic kidney disease without heart failure, with stage 1 through stage 4 chronic kidney disease, or unspecified chronic kidney disease; N18.9 Chronic kidney disease, unspecified; Z87.442 Personal history of urinary calculi; Z88.1 Allergy status to other antibiotic agents; Z88.2 Allergy status to sulfonamides; Z88.5 Allergy status to narcotic agent; Z88.7 Allergy status to serum and vaccine; Z88.8 Allergy status to other drugs, medicaments and biological substances; Z91.048 Other nonmedicinal substance allergy status
CPT/HCPCS: 85025; 36415; 81003 ×2; 83690; 80053; 76377; 74176; J2270; J2405; 96374; 96375; 99284

== ENCOUNTER 2022-09-18 14:35 | Inpatient (IN) | payer OTHER ==
--- OUTSIDE RECORDS SUMMARY | 2022-09-18 14:43 | XMS REPORT | Continuity of Care Document ---
:1955 Author Organization [facility] t Address [address] [place] [address] Care Team Providers Name Role Phone Zach Reese Primary Care Physician Judith Gutierrez Attending Clinician Unavailable Zach Avery MD Attending Clinician LUIS CARLOS PARKER Attending Clinician Unavailable MAICOL GOLDSMITH Attending Clinician Unavailable MAICOL GOLDSMITH Attending Clinician Unavailable Doctor Unassigned, Mondamin Attending Clinician Unavailable ZACH AVERY Attending Clinician Unavailable Crystal Hinson Attending Clinician Unavailable EVI FOSTER Attending Clinician Unavailable Zachary Loyd MD Attending Clinician Janae Hammond MD Attending Clinician [phone] Evi Foster MD Attending Clinician JANAE HAMMOND Admitting Clinician Unavailable Janae Hammond MD Admitting Clinician [phone] Payers Payer Name Policy Type Policy Number Effective Date Expiration Date Aster [employer] MEDICARE 53 [id number] Common Sp dre - [facility] Problems Condition Condition Condition Status Onset Resolution Last Treating Co mments Source Name Details Category Date Date Treatment Clinician Date Hyperlipid Hyperlipid Disease Active U nivers emia emia 6- ity of 00:00: [place] 00 Medical Branch Heart Heart Disease Active Univers failure failure 6- ity of 00:00: [place] [facility] Hydronephr Hydronephr Disease Active U nivers osis with osis with 6-20 ity of urinary urinary 00:00: [place] obstructio obstructio 00 Me dical n due to n due to Branch renal renal calculus calculus 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 [id number] Mixed Problem Common hyperlipid Spirit emia [facility] Urinary Urinary Problem Common incontinen incontinen Sp dre ce ce, - [facility] unspecifie [facility] [id number] Fibromyalg Problem Co mmon ia Spirit [facility] [id number] Unsteady Problem Comm on gait [facility] Primary Primary Problem Common osteoarthr osteoarthr Sp dre itis itis - [facility] involving [facility] [id number] Constipati Problem Com mon on, Spirit [facility]specif[facility] [id number] Hx of Problem Common laparoscop Spirit ic gastric - [facility] banding [facility] [id number] Simple Problem Common chronic Spirit bronchitis [facility] [id number] Chronic Problem Commo n suprapubic Spirit catheter - [facility] [id number] Positive Problem Com mon [id number] depression Spirit screening [facility] Lymphedema Lymphedema Problem C ommon [facility] [id number] Urinary Problem Commo n tract Spirit infection, - [facility] site not [facility] [id number] Pressure Problem Comm on injury of Spirit right - [facility] upper St thigh, [facility] stage 1 Medical [place] [id number] Encounter Problem Com mon for care Spirit or - [facility] replacemen [facility] t [facility] suprapubic Medica l tube Center [id number] Recurrent Problem Com mon UTI [facility] [id number] Continuous Problem Co mmon leakage of Spirit urine [facility] [id number] Decreased Problem Commo n mobility [facility] [id number] Wheelchair Problem Co mmon dependence [facility] [id number] Pressure Problem Comm on injury of Spirit right - 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 itis of knee [facility] Chronic Chronic Problem Common venous venous Spirit hypertensi hypertensi - [facility]I on on St (idiopathi (idiopathi Sanna kes c) with c) with Medical ulcer and ulcer and Cent er inflammati inflammati on of on of bilateral bilateral lower lower extremity extremity Incontinen Incontinen Problem C ommon ce ce Spirit - [facility] Dependence Dependent Problem Co mmon on on Spirit wheelchair wheelchair - [facility] [id number] Acute on Problem Comm on chronic [facility] congestive [facility] heart [facility] with left Medical ventricula Center r diastolic dysfunctio n [id number] History of Problem Co mmon pulmonary Spirit embolism [facility] [id number] Nephrostom Problem Co mmon y status [facility] [id number] Bladder Problem Commo n spasms Spirit [facility] [id number] Right Problem Common nephrolith Spirit iasis [facility] Hypertensi Hypertensi Problem C ommon ve heart ve heart Spirit failure disease - [facility] with heart [facility] Allergies, Adverse Reactions, Alerts Allergy Allergy Status Severity Reaction(s) Onset Inactive Treating Comm ents Source Name Type Date Date Clinician AMOXICIL DRUG Active High ITCHING Univers ALBA-POT 6-20 ity of CLAVULAN 00:00: [place] ATE 00 Medical Branch FENTANYL DRUG Active High Anaphylaxis Uni vers INGREDI 6-20 ity of 00:00: [place] 00 Medical Branch HYDROMOR DRUG Active High Anaphylaxis 0 Uni vers PHONE INGREDI 6-20 ity of 00:00: [place] 00 Medical Branch IODINE Drug Active High Anaphylaxis 0 Unive rs AND Class 6-20 ity of IODIDE 00:00: [place] CONTAINI 00 Medical Branch PRODUCTS MACROLID Drug Active High SOB 2021-0 Univers E Class 6-20 ity of ANTIBIOT 00:00: [place] ICS 00 Medical Branch MEROPENE DRUG Active High SOB 2021-0 Univers M INGREDI 6-20 ity of 00:00: [place] 00 Medical Branch TRIFLUOP DRUG Active High ITCHING 2021-0 Univers ERAZINE INGREDI 6-20 ity of 00:00: [place] 00 Medical Branch SULFA Drug Active High ITCHING 2021-0 Univers (SULFONA Class 6-20 ity of MIDE 00:00: [place] ANTIBIOT 00 [facility]) Branch VANCOMYC DRUG Active High ITCHING 2021-0 Univers IN INGREDI 6-20 ity of 00:00: [place] 00 Medical Branch Iodine Propensi Active Anaphylaxis Report Uni vers And ty to 6-20 per ity of Iodide adverse 00:00: Radiology [place] Containi reaction 00 of Medica l ng s patient Branch Products with shortness of breath and turning blue Macrolid Propensi Active Shortness of 2022-0 Univers e ty to Breath 6-20 ity of Antibiot adverse 00:00: [place] ics reaction 00 Medical s Branch Amoxicil Propensi Active Itching 2-0 Unive rs alba-Pot ty to 6-20 ity of Clavulan adverse 00:00: [place] ate reaction 00 Medical s Branch Fentanyl Propensi Active Anaphylaxis 2022-0 U nivers ty to 6-20 ity of adverse 00:00: [place] reaction 00 Medical s Branch Hydromor Propensi Active Anaphylaxis 2022-0 U nivers phone ty to 6-20 ity of adverse 00:00: [place] reaction 00 Medical s Branch Iodine Propensi Active Anaphylaxis 2021-0 Report Uni vers And ty to 6-20 per ity of Iodide adverse 00:00: Radiology [place] Containi reaction 00 of Medica l ng s patient Branch Products with shortness of breath and turning blue Macrolid Propensi Active Shortness of 2-0 Univers e ty to Breath 6-20 ity of Antibiot adverse 00:00: [place] ics reaction 00 Medical s Branch Meropene Propensi Active Shortness of 2-0 Univers m ty to Breath 6-20 ity of adverse 00:00: [place] reaction 00 Medical s Branch Trifluop Propensi Active Itching 2021-0 Unive rs erazine ty to 6-20 ity of adverse 00:00: [place] reaction 00 Medical s Branch Sulfa Propensi Active Itching 2022-0 Univers (Sulfona ty to 6-20 ity of mide adverse 00:00: [place] Antibiot reaction 00 Medica l ics) s Branch Vancomyc Propensi Active Itching 2-0 Unive rs in ty to 6-20 ity of adverse 00:00: [place] reaction 00 Medical s Branch NALBUPHI DRUG Active Unknown-Cmnt 2004-03 Un [place] HCL INGREDI 2-21 ity of 00:00: [place] 00 Medical Branch TRIFLUOP DRUG Active Unknown-Cmnt 2004-03 Un [place] ERAZINE INGREDI 2-21 ity of HCL 00:00: [place] 00 Medical Branch TOLUENE DRUG Active Unknown-Cmnt 2004-03 Uni vers INGREDI 2-21 ity of 00:00: [place] 00 Medical Branch Nalbuphi Propensi Active Unknown - 2004-03 [...] 00:00: [place] reaction 00 Medical s Branch lincomyc lincomyc Active Unknown Commo n in in [facility] fentanyl fentanyl Active Unknown Commo n [facility] nitrofur nitrofur Active Unknown Commo n antoin, antoin, [facility] macrocry [facility] stals / stals / St nitrofur nitrofur [facility] antoin, antoin, Medical monohydr monohydr Center ate ate 2487 Drug Active Unknown Common allergy [facility] 8228 Drug Active Unknown Common allergy [facility] povidone povidone Active Unknown Commo n -iodine -iodine [facility] 5513 Drug Active Unknown Common allergy [facility] vancomyc vancomyc Active Unknown Commo n in in [facility] Social History Social Habit Start Date Stop Date Quantity Comments Source History of Current Smoker Common Spi rit - Tobacco Use [facility] Tobacco use and 2021-10-11 2021-10-11 Smokeless tobacco Un iversity of exposure 00:00:00 00:00:00 non-user [facility] Exposure to 2021-08-18 2021-08-28 Not sure [facility] SARS-CoV-2 00:00:00 01:36:00 [facility] [place] (event) Sarita Sex Ass[birth year] At [birth year] [facility] 00:00:00 00:00:00 [facility] Center Smoking Status Start Date Stop Date Source Current Smoker 2021-10-22 00:00:00 Common Spiri t [facility] Never smoked tobacco [facility] Medications Ordered Filled Start Stop Current Ordering Indication Dosage Frequency Signature Comments Components Source Medication Medication Date Date Medication? Clinician (SIG) Name Name HYDROcodone HYDROcodone 2021- No QID HYDROcodon -Acetaminop -Acetaminop 8-10-24 e-Acetamin hen 5-325 hen 5-325 00:00: 00:00 ophen MG MG 00 :00 5-325 MG HYDROcodone HYDROcodone 2021-0 2021- No QID HYDROcodon -Acetaminop -Acetaminop 8-10-24 e-Acetamin hen 5-325 hen 5-325 00:00: 00:00 ophen MG MG 00 :00 5-325 MG aspirin 81 0 Yes 81mg Take 81 mg U nivers mg chewable 7-19 by mouth ity of tablet 13:28: daily. [place] [address] Medical Branch Mometasone- 0 Yes 2{puff} Inhale 2 Univers Formoterol 7-19 Puffs 2 ity of (DULERA) 13:28: (two) [place] 200-5 55 times Medical mcg/actuati daily as Bran ch on inhaler needed. foLIC acid 0 Yes 1mg Take 1 mg Un [place] 1 mg tablet 7-19 by mouth ity of 13:28: daily. [place] [address] Medical Branch furosemide 0 Yes 40mg Take 40 mg U nivers 40 mg 7-19 by mouth 2 ity of tablet 13:28: (two) [place] [address] times Medical daily. Branch gabapentin 0 Yes 300mg Take 300 Un [place] 300 mg 7-19 mg by ity of capsule 13:28: mouth 3 [place] [address] (three) Medical times Sarita daily as needed. lovastatin 0 Yes 20mg Take 20 mg U nivers 20 mg 7-19 by mouth ity of tablet 13:28: at [place] [address] bedtime. Medical Branch metoprolol 0 Yes 25mg Take 25 mg U nivers tartrate 25 7-19 by mouth 2 it y of mg tablet 13:28: (two) [place] [address] times Medical daily. Branch oxybutynin 2021-0 Yes 5mg Take 5 mg Un [place] chloride 5 7-19 by mouth 2 ity of mg tablet 13:28: (two) [place] [address] times Medical daily. Branch aspirin 81 2021-0 Yes 81mg Take 81 mg U nivers mg chewable 7-19 by mouth ity of tablet 13:28: daily. [place] [address] Medical Branch Mometasone- 2021-0 Yes 2{puff} Inhale 2 Univers Formoterol 7-19 Puffs 2 ity of (DULERA) 13:28: (two) [place] 200-5 55 times Medical mcg/actuati daily as Bran ch on inhaler needed. foLIC acid 2021-0 Yes 1mg Take 1 mg Un [place] 1 mg tablet 7-19 by mouth ity of 13:28: daily. [place] [address] Medical Branch furosemide 2021-0 Yes 40mg Take 40 mg U nivers 40 mg 7-19 by mouth 2 ity of tablet 13:28: (two) [place] [address] times Medical daily. Branch gabapentin 2021-0 Yes 300mg Take 300 Un [place] 300 mg 7-19 mg by ity of capsule 13:28: mouth 3 [place] [address] (three) Medical times Branch daily as needed. lovastatin 2021-0 Yes 20mg Take 20 mg U nivers 20 mg 7-19 by mouth ity of tablet 13:28: at [place] [address] bedtime. Medical Branch metoprolol 2021-0 Yes 25mg Take 25 mg U nivers tartrate 25 7-19 by mouth 2 it y of mg tablet 13:28: (two) [place] [address] times Medical daily. Branch oxybutynin 2021-0 Yes 5mg Take 5 mg Un [place] chloride 5 7-19 by mouth 2 ity of mg tablet 13:28: (two) [place] [address] times Medical daily. Branch aspirin 81 2021-0 Yes 81mg Take 81 mg U nivers mg chewable 7-19 by mouth ity of tablet 13:28: daily. [place] [address] Medical Branch Mometasone- 2021-0 Yes 2{puff} Inhale 2 Univers Formoterol 7-19 Puffs 2 ity of (DULERA) 13:28: (two) [place] 200-5 55 times Medical mcg/actuati daily as Bran ch on inhaler needed. foLIC acid 2021-0 Yes 1mg Take 1 mg Un [place] 1 mg tablet 7-19 by mouth ity of 13:28: daily. [place] [address] Medical Branch furosemide 2021-0 Yes 40mg Take 40 mg U nivers 40 mg 7-19 by mouth 2 ity of tablet 13:28: (two) [place] [address] times Medical daily. Branch gabapentin 2021-0 Yes 300mg Take 300 Un [place] 300 mg 7-19 mg by ity of capsule 13:28: mouth 3 [place] 55 (three) Medical times Sarita daily as needed. lovastatin 2021-0 Yes 20mg Take 20 mg U nivers 20 mg 7-19 by mouth ity of tablet 13:28: at [place] [address] bedtime. Medical Branch metoprolol 2021-0 Yes 25mg Take 25 mg U nivers tartrate 25 7-19 by mouth 2 it y of mg tablet 13:28: (two) [place] 55 times Medical daily. Branch oxybutynin 2021-0 Yes 5mg Take 5 mg Un [place] chloride 5 7-19 by mouth 2 ity of mg tablet 13:28: (two) [place] [address] times Medical daily. Branch aspirin 81 2021-0 Yes 81mg Take 81 mg U nivers mg chewable 7-19 by mouth ity of tablet 13:28: daily. [place] [address] Medical Branch Mometasone- 2021-0 Yes 2{puff} Inhale 2 Univers Formoterol 7-19 Puffs 2 ity of (DULERA) 13:28: (two) [place] 200-5 55 times Medical mcg/actuati daily as Bran ch on inhaler needed. foLIC acid 0 Yes 1mg Take 1 mg Un [place] 1 mg tablet 7-19 by mouth ity of 13:28: daily. [place] [address] Medical Branch furosemide 2021-0 Yes 40mg Take 40 mg U nivers 40 mg 7-19 by mouth 2 ity of tablet 13:28: (two) [place] [address] times Medical daily. Branch gabapentin 2021-0 Yes 300mg Take 300 Un [place] 300 mg 7-19 mg by ity of capsule 13:28: mouth 3 [place] [address] (three) Medical times Sarita daily as needed. lovastatin 2021-0 Yes 20mg Take 20 mg U nivers 20 mg 7-19 by mouth ity of tablet 13:28: at [place] [address] bedtime. Medical Branch metoprolol 2021-0 Yes 25mg Take 25 mg U nivers tartrate 25 7-19 by mouth 2 it y of mg tablet 13:28: (two) [place] [address] times Medical daily. Branch oxybutynin 2021-0 Yes 5mg Take 5 mg Un [place] chloride 5 7-19 by mouth 2 ity of mg tablet 13:28: (two) [place] [address] times Medical daily. Branch aspirin 81 2021-0 Yes 81mg Take 81 mg U nivers mg chewable 7-19 by mouth ity of tablet 13:28: daily. [place] [address] Medical Branch Mometasone- 2021-0 Yes 2{puff} Inhale 2 Univers Formoterol 7-19 Puffs 2 ity of (DULERA) 13:28: (two) [place] 200-5 55 times Medical mcg/actuati daily as Bran ch on inhaler needed. foLIC acid 2021-0 Yes 1mg Take 1 mg Un [place] 1 mg tablet 7-19 by mouth ity of 13:28: daily. [place] [address] Medical Branch furosemide 2021-0 Yes 40mg Take 40 mg U nivers 40 mg 7-19 by mouth 2 ity of tablet 13:28: (two) [place] [address] times Medical daily. Branch gabapentin 2021-0 Yes 300mg Take 300 Un [place] 300 mg 7-19 mg by ity of capsule 13:28: mouth 3 [place] [address] (three) Medical times Sarita daily as needed. lovastatin 2021-0 Yes 20mg Take 20 mg U nivers 20 mg 7-19 by mouth ity of tablet 13:28: at [place] [address] bedtime. Medical Branch metoprolol 2021-0 Yes 25mg Take 25 mg U nivers tartrate 25 7-19 by mouth 2 it y of mg tablet 13:28: (two) [place] [address] times Medical daily. Branch oxybutynin 2021-0 Yes 5mg Take 5 mg Un [place] chloride 5 7-19 by mouth 2 ity of mg tablet 13:28: (two) [place] [address] times Medical daily. Branch aspirin 81 2021-0 Yes 81mg Take 81 mg U nivers mg chewable 6-30 by mouth ity of tablet 21:54: daily. [place] 10 Medical Branch Mometasone- 2021-0 Yes 2{puff} Inhale 2 Univers Formoterol 6-30 Puffs 2 ity of (DULERA) 21:54: (two) [place] 200-5 10 times Medical mcg/actuati daily as Bran ch on inhaler needed. foLIC acid 2021-0 Yes 1mg Take 1 mg Un [place] 1 mg tablet 6-30 by mouth ity of 21:54: daily. [place] [address] Medical Branch furosemide 2021-0 Yes 40mg Take 40 mg U nivers 40 mg 6-30 by mouth 2 ity of tablet 21:54: (two) [place] 10 times Medical daily. Branch gabapentin 2021-0 Yes 300mg Take 300 Un [place] 300 mg 6-30 mg by ity of capsule 21:54: mouth 3 [place] 10 (three) Medical times Sarita daily as needed. lovastatin 2-0 Yes 20mg Take 20 mg U nivers 20 mg 6-30 by mouth ity of tablet 21:54: at [place] 10 bedtime. Medical Branch metoprolol 2021-0 Yes 25mg Take 25 mg U nivers tartrate 25 6-30 by mouth 2 it y of mg tablet 21:54: (two) [place] 10 times Medical daily. Branch oxybutynin 2021-0 Yes 5mg Take 5 mg Un [place] chloride 5 6-30 by mouth 2 ity of mg tablet 21:54: (two) [place] 10 times Medical daily. Branch aspirin 81 2021-0 Yes 81mg Take 81 mg U nivers mg chewable 6-30 by mouth ity of tablet 21:54: daily. [place] [address] Medical Branch Mometasone- 2021-0 Yes 2{puff} Inhale 2 Univers Formoterol 6-30 Puffs 2 ity of (DULERA) 21:54: (two) [place] 200-5 10 times Medical mcg/actuati daily as Bran ch on inhaler needed. foLIC acid 2021-0 Yes 1mg Take 1 mg Un [place] 1 mg tablet 6-30 by mouth ity of 21:54: daily. [place] [address] Medical Branch furosemide 2021-0 Yes 40mg Take 40 mg U nivers 40 mg 6-30 by mouth 2 ity of tablet 21:54: (two) [place] 10 times Medical daily. Branch gabapentin 2021-0 Yes 300mg Take 300 Un [place] 300 mg 6-30 mg by ity of capsule 21:54: mouth 3 [place] 10 (three) Medical times Sarita daily as needed. lovastatin 2-0 Yes 20mg Take 20 mg U nivers 20 mg 6-30 by mouth ity of tablet 21:54: at [place] 10 bedtime. Medical Branch metoprolol 2021-0 Yes 25mg Take 25 mg U nivers tartrate 25 6-30 by mouth 2 it y of mg tablet 21:54: (two) [place] 10 times Medical daily. Branch oxybutynin 2-0 Yes 5mg Take 5 mg Un [place] chloride 5 6-30 by mouth 2 ity of mg tablet 21:54: (two) [place] 10 times Medical daily. Branch aspirin 81 2021-0 Yes 81mg Take 81 mg U nivers mg chewable 6-30 by mouth ity of tablet 21:54: daily. [place] [address] Medical Branch Mometasone- 2021-0 Yes 2{puff} Inhale 2 Univers Formoterol 6-30 Puffs 2 ity of (DULERA) 21:54: (two) [place] 200-5 10 times Medical mcg/actuati daily as Bran ch on inhaler needed. foLIC acid 0 Yes 1mg Take 1 mg Un [place] 1 mg tablet 6-30 by mouth ity of 21:54: daily. [place] [address] Medical Branch furosemide 2021-0 Yes 40mg Take 40 mg U nivers 40 mg 6-30 by mouth 2 ity of tablet 21:54: (two) [place] 10 times Medical daily. Branch gabapentin 2021-0 Yes 300mg Take 300 Un [place] 300 mg 6-30 mg by ity of capsule 21:54: mouth 3 [place] 10 (three) Medical times Branch daily as needed. lovastatin 2021-0 Yes 20mg Take 20 mg U nivers 20 mg 6-30 by mouth ity of tablet 21:54: at [place] 10 bedtime. Medical Branch metoprolol 2021-0 Yes 25mg Take 25 mg U nivers tartrate 25 6-30 by mouth 2 it y of mg tablet 21:54: (two) [place] 10 times Medical daily. Branch oxybutynin 2021-0 Yes 5mg Take 5 mg Un [place] chloride 5 6-30 by mouth 2 ity of mg tablet 21:54: (two) [place] 10 times Medical daily. Branch ipratropium 2021-0 Yes .5mg Inhale 2.5 Univers 0.02 % 6-30 mL 3 ity of nebulizer 00:00: (three) [place] solution 00 times Medical daily. Branch levalbutero 2021-0 Yes .31mg Inhale Uni vers l 0.31 mg/3 6-30 0.31 mg 3 ity of mL 00:00: (three) [place] nebulizer 00 times Medical solution daily. Branch ondansetron 2021-0 Yes 4mg Take 2 mL U nivers 4 mg/2 mL 6-30 by mouth ity of injection 00:00: every 6 [place] (six) Medical hours as Branch needed for Nausea and Vomiting (N/V). pantoprazol 2022-0 Yes 40mg Take 1 Univ ers e 40 mg EC 6-30 tablet by ity of tablet 00:00: mouth 2 [place] (two) Medical times Branch daily. ipratropium 2022-0 [...] mouth ity of injection 00:00: every 6 [place] (six) Medical hours as Branch needed for [...] mouth ity of injection 00:00: every 6 [place] [address] (six) Medical hours as Branch needed for Nausea and Vomiting (N/V). pantoprazol 2022-0 Yes 40mg Take 1 Univ ers e 40 mg EC 6-30 tablet by ity of tablet 00:00: mouth 2 00 (two) Medical times Branch daily. ipratropium [...] mouth ity of injection 00:00: every 6 [place] (six) Medical hours as Branch needed for [...] mouth ity of injection 00:00: every 6 [place] (six) Medical hours as Branch needed for [...] mouth ity of injection 00:00: every 6 [place] [address] (six) Medical hours as Branch needed for Nausea and Vomiting (N/V). pantoprazol 2-0 Yes 40mg Take 1 Univ ers e 40 mg EC 6-30 tablet by ity of tablet 00:00: mouth 2 [place] 00 (two) Medical times Branch daily. ipratropium 2021-0 Yes .5mg Inhale 2.5 Univers 0.02 % 6-30 mL 3 ity of nebulizer 00:00: (three) [place] solution 00 times Medical daily. Branch levalbutero 2-0 Yes .31mg Inhale Uni vers l 0.31 mg/3 6-30 0.31 mg 3 ity of mL 00:00: (three) [place] nebulizer 00 times Medical solution daily. Branch ondansetron 2021-0 Yes 4mg Take 2 mL U nivers 4 mg/2 mL 6-30 by mouth ity of injection 00:00: every 6 [place] [address] (six) Medical hours as Branch needed for Nausea and Vomiting (N/V). pantoprazol 2-0 Yes 40mg Take 1 Univ ers e 40 mg EC 6-30 tablet by ity of tablet 00:00: mouth 2 [place] [address] (two) Medical times Branch daily. Enoxaparin Enoxaparin 0 No QD Enoxaparin Sodium 150 Sodium 150 6-08 Sodium 150 MG/ML MG/ML 00:00: MG/ML 00 Enoxaparin Enoxaparin 2021-0 No QD Enoxaparin Sodium 150 Sodium 150 6-08 Sodium 150 MG/ML MG/ML 00:00: MG/ML 00 Enoxaparin Enoxaparin 2021-0 No QD Enoxaparin Sodium 150 Sodium 150 6-08 Sodium 150 MG/ML MG/ML 00:00: MG/ML 00 Enoxaparin Enoxaparin 2021-0 No QD Enoxaparin Sodium 150 Sodium 150 6-08 Sodium 150 MG/ML MG/ML 00:00: MG/ML 00 Enoxaparin Enoxaparin 2021-0 No QD Enoxaparin Sodium 150 Sodium 150 6-08 Sodium 150 MG/ML MG/ML 00:00: MG/ML 00 Enoxaparin Enoxaparin 2021-0 No QD Enoxaparin Sodium 150 Sodium 150 6-08 Sodium 150 MG/ML MG/ML 00:00: MG/ML 00 Potassium Potassium 2021-0 2021- No 1{table Potassium Chloride ER Chloride ER 08-11 t} Chloride 20 MEQ 20 MEQ 00:00: 00:00 ER 20 MEQ 00 :00 Potassium Potassium 2021-0 2021- No 1{table Potassium Chloride ER Chloride ER 08-11 t} Chloride 20 MEQ 20 MEQ 00:00: 00:00 ER 20 MEQ 00 :00 Potassium Potassium 2021-0 2021- No 1{table Potassium Chloride ER Chloride ER 08-11 t} Chloride 20 MEQ 20 MEQ 00:00: 00:00 ER 20 MEQ 00 :00 Potassium Potassium 2021-0 2021- No 1{table Potassium Chloride ER Chloride ER 08-11 t} Chloride 20 MEQ 20 MEQ 00:00: 00:00 ER 20 MEQ 00 :00 Potassium Potassium 2021-0 2021- No 1{table Potassium Chloride ER Chloride ER 08-11 t} Chloride 20 MEQ 20 MEQ 00:00: 00:00 ER 20 MEQ 00 :00 Enoxaparin Enoxaparin 2021-0 No .4{ml} BID Enoxaparin Sodium 40 Sodium 40 6-02 Sodium 40 MG/0.4ML MG/0.4ML 00:00: MG/0.4ML Enoxaparin Enoxaparin 2021-0 No .4{ml} BID Enoxaparin Sodium 40 Sodium 40 6-02 Sodium 40 MG/0.4ML MG/0.4ML 00:00: MG/0.4ML Enoxaparin Enoxaparin 2021-0 No .4{ml} BID Enoxaparin Sodium 40 Sodium 40 6-02 Sodium 40 MG/0.4ML MG/0.4ML 00:00: MG/0.4ML 00 Enoxaparin Enoxaparin 2021-0 No .4{ml} BID Enoxaparin Sodium 40 Sodium 40 6-02 Sodium 40 MG/0.4ML MG/0.4ML 00:00: MG/0.4ML 00 Enoxaparin Enoxaparin 2021-0 No .4{ml} BID Enoxaparin Sodium 40 Sodium 40 6-02 Sodium 40 MG/0.4ML MG/0.4ML 00:00: MG/0.4ML 00 Enoxaparin Enoxaparin 2021-0 No .4{ml} BID Enoxaparin Sodium 40 Sodium 40 6-02 Sodium 40 MG/0.4ML MG/0.4ML 00:00: MG/0.4ML 00 Enoxaparin Enoxaparin 2021-0 No .4{ml} BID Enoxaparin Sodium 40 Sodium 40 6-02 Sodium 40 MG/0.4ML MG/0.4ML 00:00: MG/0.4ML 00 Nystatin Nystatin 2021-0 2021- No QID Nystatin [id number] 07-19- [id number] UNIT/ML UNIT/ML 00:00: 00:00 UNIT/ML 00 :00 Nystatin Nystatin 2021-0 2021- No QID Nystatin [id number] 07-19- 193915 UNIT/ML UNIT/ML 00:00: 00:00 UNIT/ML 00 :00 Meropenem 1 Meropenem 1 2020-03- No QD Meropenem GM GM 0 11-05 1 GM 00:00: 00:00 00 :00 Cefpodoxime Cefpodoxime 2020-2021- No 1{table BID Cefpodoxim Proxetil Proxetil - t_with_ e Proxetil 100 MG 100 MG 00:00: 00:00 food} 100 MG 00 :00 Cefpodoxime Cefpodoxime 2020-2020- No 1{table BID Cefpodoxim Proxetil Proxetil 12-26 t_with_ e Proxetil 100 MG 100 MG 00:00: 00:00 food} 100 MG 00 :00 Azithromyci Azithromyci 2020-0 2020- No QD Azithromyc n 250 MG n 250 MG 8-20 08-25 in 250 MG 00:00: 00:00 00 :00 Azithromyci Azithromyci 2020-0 2020- No QD Azithromyc n 250 MG n 250 MG 8-20 08-25 in 250 MG 00:00: 00:00 00 :00 Metoprolol Metoprolol 2019-0 Yes Na Gutierrez 1 tablet Common Tartrate Tartrate 11-02 with food Sp dre 00:00: [facility] Doxycycline Doxycycline 2018- Yes Na Gutierrez 1 capsule Common Hyclate Hyclate 1-21 Spirit 00:00: [facility] NAPROXEN 2004- Yes 1tab po q Univ ers 250 MG ORAL 2-22 6 hrs prn ity of TAB 00:00: [facility] FAMOTIDINE 2004- Yes 1 tab po Uni vers 20 MG ORAL 2-22 qd ity of TAB 00:00: [facility] FUROSEMIDE 2004- Yes 1 tab po Uni vers 20 MG ORAL 2-22 bid ity of TAB 00:00: [facility] NAPROXEN 2004- Yes 1tab po q Univ ers 250 MG ORAL 2-22 6 hrs prn ity of TAB 00:00: [facility] FAMOTIDINE 2004- Yes 1 tab po Uni vers 20 MG ORAL 2-22 qd ity of TAB 00:00: [facility] FUROSEMIDE 2004- Yes 1 tab po Uni vers 20 MG ORAL 2-22 bid ity of TAB 00:00: [facility] NAPROXEN 2004- Yes 1tab po q Univ ers 250 MG ORAL 2-22 6 hrs prn ity of TAB 00:00: [facility] FAMOTIDINE 2004- Yes 1 tab po Uni vers 20 MG ORAL 2-22 qd ity of TAB 00:00: [facility] FUROSEMIDE 2004- Yes 1 tab po Uni vers 20 MG ORAL 2-22 bid ity of TAB 00:00: [facility] NAPROXEN 2004- Yes 1tab po q Univ ers 250 MG ORAL 2-22 6 hrs prn ity of TAB 00:00: [facility] FAMOTIDINE 2004- Yes 1 tab po Uni vers 20 MG ORAL 2-22 qd ity of TAB 00:00: [facility] FUROSEMIDE 2004- Yes 1 tab po Uni vers 20 MG ORAL 2-22 bid ity of TAB 00:00: [facility] NAPROXEN 2004- Yes 1tab po q Univ ers 250 MG ORAL 2-22 6 hrs prn ity of TAB 00:00: [facility] FAMOTIDINE 2004- Yes 1 tab po Uni vers 20 MG ORAL 2-22 qd ity of TAB 00:00: [place] [facility] FUROSEMIDE 2004- Yes 1 tab po Uni vers 20 MG ORAL 2-22 bid ity of TAB 00:00: [address] Oxybutynin Oxybutynin No Oxybutynin Chloride 5 Chloride 5 Chloride 5 MG MG MG Furosemide Furosemide No 1{table BID Furosemide 40 MG 40 MG t} 40 MG Benadryl Benadryl No 1{table TID Benadryl Allergy 25 Allergy 25 t_as_ne Allergy 25 MG MG eded} MG Metoprolol Metoprolol No 1{table BID Metoprolol Tartrate 25 Tartrate 25 t_with_ Tartrate MG MG food} 25 MG Motrin 400 Motrin 400 No Motrin 400 mg mg mg Fosfomycin Fosfomycin No Fosfomycin Tromethamin Tromethamin Tromethami e 3 GM e 3 GM ne 3 GM Nystatin Nystatin No 1{appli BID Nystatin [id number] cation_ 001788 UNIT/GM UNIT/GM to_affe UNIT/GM cted_ar ea} Sennosides Sennosides No 15{ml_a QD Sennosides 25 MG/15ML 25 MG/15ML t_bedti 25 MG/15ML me_as_n eeded} Indomethaci Indomethaci No 1{capsu Indomethac n 50 MG n 50 MG le_with in 50 MG _food_o r_milk} Fluocinonid Fluocinonid No 1{appli BID Fluocinoni e 0.05 % e 0.05 % cation_ de 0.05 % to_affe cted_ar ea} Hydrocortis Hydrocortis No 1{appli BID Hydrocorti one 2.5 % one 2.5 % cation_ sone 2.5 % to_affe cted_ar ea} HYDROcodone HYDROcodone No 1{table QID HYDROcodon -Acetaminop -Acetaminop t_as_ne e-Acetamin hen 7.5-325 hen 7.5-325 eded} ophen MG MG 7.5-325 MG Lovastatin Lovastatin No QD Lovastatin 20 MG 20 MG 20 MG Fosfomycin Fosfomycin No Fosfomycin Tromethamin Tromethamin Tromethami e 3 GM e 3 GM ne 3 GM Sennosides Sennosides No 15{ml_a QD Sennosides 25 MG/15ML 25 MG/15ML t_bedti 25 MG/15ML me_as_n eeded} Oxybutynin Oxybutynin No 1{table BID Oxybutynin Chloride 5 Chloride 5 t} Chloride 5 MG MG MG Gabapentin Gabapentin No 1{capsu Gabapentin 300 MG 300 MG le} 300 MG HYDROcodone HYDROcodone No 1{table QID HYDROcodon -Acetaminop -Acetaminop t_as_ne e-Acetamin hen 7.5-325 hen 7.5-325 eded} ophen MG MG 7.5-325 MG Indomethaci Indomethaci No 1{capsu Indomethac n 50 MG n 50 MG le_with in 50 MG _food_o r_milk} Nystatin Nystatin No 1{appli BID Nystatin 313834 476679 cation_ 203812 UNIT/GM UNIT/GM to_affe UNIT/GM cted_ar ea} Fluocinonid Fluocinonid No 1{appli BID Fluocinoni e 0.05 % e 0.05 % cation_ de 0.05 % to_affe cted_ar ea} Xopenex HFA Xopenex HFA No 1{puff_ 6xD Xopenex 45 MCG/ACT 45 MCG/ACT as_need HFA 45 ed} MCG/ACT Furosemide Furosemide No 1{table BID Furosemide 40 MG 40 MG t} 40 MG Benadryl Benadryl No 1{table TID Benadryl Allergy 25 Allergy 25 t_as_ne Allergy 25 MG MG eded} MG Cefdinir Cefdinir No 1{capsu BID Cefdinir 300 MG 300 MG le} 300 MG Benzonatate Benzonatate No Benzonatat 100 MG 100 MG e 100 MG Hydrocortis Hydrocortis No 1{appli BID Hydrocorti one 2.5 % one 2.5 % cation_ sone 2.5 % to_affe cted_ar ea} Motrin PM Motrin PM No 2{table QD Motrin PM 200-38 MG 200-38 MG ts_at_b 200-38 MG edtime_ as_need ed} Aspir-81 81 Aspir-81 81 No 1{table QD Aspir-81 MG MG t} 81 MG Motrin 400 Motrin 400 No Motrin 400 mg mg mg Oxybutynin Oxybutynin No Oxybutynin Chloride 5 Chloride 5 Chloride 5 MG MG MG Docusate Docusate No 1{capsu QD Docusate Sodium 100 Sodium 100 le_as_n Sodium 100 MG MG eeded} MG Doxycycline Doxycycline No 1{capsu QD Doxycyclin Monohydrate Monohydrate le} e 100 MG 100 MG Monohydrat e 100 MG Lovastatin Lovastatin No Lovastatin 20 MG 20 MG 20 MG Metoprolol Metoprolol No 1{table BID Metoprolol Tartrate 25 Tartrate 25 t_with_ Tartrate MG MG food} 25 MG Furosemide Furosemide No Furosemide 40 MG 40 MG 40 MG Spiriva Spiriva No 1{capsu QD Spiriva HandiHaler HandiHaler le} HandiHaler 18 MCG 18 MCG 18 MCG Oxybutynin Oxybutynin No Oxybutynin Chloride 5 Chloride 5 Chloride 5 MG MG MG Benzonatate Benzonatate No Benzonatat 100 MG 100 MG e 100 MG Hydrocortis Hydrocortis No 1{appli BID Hydrocorti one 2.5 % one 2.5 % cation_ sone 2.5 % to_affe cted_ar ea} Lovastatin Lovastatin No QD Lovastatin 20 MG 20 MG 20 MG Fosfomycin Fosfomycin No Fosfomycin Tromethamin Tromethamin Tromethami e 3 GM e 3 GM ne 3 GM Fluocinonid Fluocinonid No 1{appli BID Fluocinoni e 0.05 % e 0.05 % cation_ de 0.05 % to_affe cted_ar ea} Gabapentin Gabapentin No 1{capsu Gabapentin 300 MG 300 MG le} 300 MG HYDROcodone HYDROcodone No 1{table QID HYDROcodon -Acetaminop -Acetaminop t_as_ne e-Acetamin hen 7.5-325 hen 7.5-325 eded} ophen MG MG 7.5-325 MG Indomethaci Indomethaci No 1{capsu Indomethac n 50 MG n 50 MG le_with in 50 MG _food_o r_milk} Motrin PM Motrin PM No 2{table QD Motrin PM 200-38 MG 200-38 MG ts_at_b 200-38 MG edtime_ as_need ed} Potassium Potassium No QD Potassium Chloride 20 Chloride 20 Chloride MEQ MEQ 20 MEQ Cefdinir Cefdinir No 1{capsu BID Cefdinir 300 MG 300 MG le} 300 MG Benadryl Benadryl No 1{table TID Benadryl Allergy 25 Allergy 25 t_as_ne Allergy 25 MG MG eded} MG Nystatin Nystatin No 1{appli BID Nystatin [id number] cation_ 182734 UNIT/GM UNIT/GM to_affe UNIT/GM cted_ar ea} Furosemide Furosemide No 1{table BID Furosemide 40 MG 40 MG t} 40 MG Docusate Docusate No 1{capsu QD Docusate Sodium 100 Sodium 100 le_as_n Sodium 100 MG MG eeded} MG Sennosides Sennosides No 15{ml_a QD Sennosides 25 MG/15ML 25 MG/15ML t_bedti 25 MG/15ML me_as_n eeded} Motrin 400 Motrin 400 No Motrin 400 mg mg mg Xopenex HFA Xopenex HFA No 1{puff_ 6xD Xopenex 45 MCG/ACT 45 MCG/ACT as_need HFA 45 ed} MCG/ACT Oxybutynin Oxybutynin No 1{table BID Oxybutynin Chloride 5 Chloride 5 t} Chloride 5 MG MG MG Aspir-81 81 Aspir-81 81 No 1{table QD Aspir-81 MG MG t} 81 MG Doxycycline Doxycycline No 1{capsu QD Doxycyclin Monohydrate Monohydrate le} e 100 MG 100 MG Monohydrat e 100 MG Lovastatin Lovastatin No Lovastatin 20 MG 20 MG 20 MG Metoprolol Metoprolol No 1{table BID Metoprolol Tartrate 25 Tartrate 25 t_with_ Tartrate MG MG food} 25 MG Furosemide Furosemide No Furosemide 40 MG 40 MG 40 MG Spiriva Spiriva No 1{capsu QD Spiriva HandiHaler HandiHaler le} HandiHaler 18 MCG 18 MCG 18 MCG Fosfomycin Fosfomycin No Fosfomycin Tromethamin Tromethamin Tromethami e 3 GM e 3 GM ne 3 GM Lovastatin Lovastatin No Lovastatin 20 MG 20 MG 20 MG Benzonatate Benzonatate No Benzonatat 100 MG 100 MG e 100 MG Sennosides Sennosides No 15{ml_a QD Sennosides 25 MG/15ML 25 MG/15ML t_bedti 25 MG/15ML me_as_n eeded} Fluocinonid Fluocinonid No 1{appli BID Fluocinoni e 0.05 % e 0.05 % cation_ de 0.05 % to_affe cted_ar ea} Gabapentin Gabapentin No 1{capsu Gabapentin 300 MG 300 MG le} 300 MG HYDROcodone HYDROcodone No 1{table QID HYDROcodon -Acetaminop -Acetaminop t_as_ne e-Acetamin hen 7.5-325 hen 7.5-325 eded} ophen MG MG 7.5-325 MG Xopenex HFA Xopenex HFA No 1{puff_ 6xD Xopenex 45 MCG/ACT 45 MCG/ACT as_need HFA 45 ed} MCG/ACT Nystatin Nystatin No 1{appli BID Nystatin [id number] cation_ 851423 UNIT/GM UNIT/GM to_affe UNIT/GM cted_ar ea} Indomethaci Indomethaci No 1{capsu Indomethac n 50 MG n 50 MG le_with in 50 MG _food_o r_milk} Docusate Docusate No 1{capsu QD Docusate Sodium 100 Sodium 100 le_as_n Sodium 100 MG MG eeded} MG Motrin PM Motrin PM No 2{table QD Motrin PM 200-38 MG 200-38 MG ts_at_b 200-38 MG edtime_ as_need ed} Cefdinir Cefdinir No 1{capsu BID Cefdinir 300 MG 300 MG le} 300 MG Aspir-81 81 Aspir-81 81 No 1{table QD Aspir-81 MG MG t} 81 MG Hydrocortis Hydrocortis No 1{appli BID Hydrocorti one 2.5 % one 2.5 % cation_ sone 2.5 % to_affe cted_ar ea} Furosemide Furosemide No 1{table BID Furosemide 40 MG 40 MG t} 40 MG Benadryl Benadryl No 1{table TID Benadryl Allergy 25 Allergy 25 t_as_ne Allergy 25 MG MG eded} MG Motrin 400 Motrin 400 No Motrin 400 mg mg mg Oxybutynin Oxybutynin No 1{table BID Oxybutynin Chloride 5 Chloride 5 t} Chloride 5 MG MG MG Oxybutynin Oxybutynin No Oxybutynin Chloride 5 Chloride 5 Chloride 5 MG MG MG Potassium Potassium No QD Potassium Chloride 20 Chloride 20 Chloride MEQ MEQ 20 MEQ Doxycycline Doxycycline No 1{capsu QD Doxycyclin Monohydrate Monohydrate le} e 100 MG 100 MG Monohydrat e 100 MG Potassium Potassium No Potassium Chloride ER Chloride ER Chloride 20 MEQ 20 MEQ ER 20 MEQ Metoprolol Metoprolol No 1{table BID Metoprolol Tartrate 25 Tartrate 25 t_with_ Tartrate MG MG food} 25 MG Furosemide Furosemide No Furosemide 40 MG 40 MG 40 MG Spiriva Spiriva No 1{capsu QD Spiriva HandiHaler HandiHaler le} HandiHaler 18 MCG 18 MCG 18 MCG Metoprolol Metoprolol Yes Na Gutierrez 1/2 tablet Common Tartrate Tartrate with food Sp [facility] Benadryl Benadryl No 1{table TID Benadryl Allergy 25 Allergy 25 t_as_ne Allergy 25 MG MG eded} MG Furosemide Furosemide No 1{table BID Furosemide 40 MG 40 MG t} 40 MG Metoprolol Metoprolol No 1{table BID Metoprolol Tartrate 25 Tartrate 25 t_with_ Tartrate MG MG food} 25 MG Furosemide Furosemide No 1{table QD Furosemide 40 MG 40 MG t} 40 MG Xopenex HFA Xopenex HFA No 1{puff_ 6xD Xopenex 45 MCG/ACT 45 MCG/ACT as_need HFA 45 ed} MCG/ACT Sennosides Sennosides No 15{ml_a QD Sennosides 25 MG/15ML 25 MG/15ML t_bedti 25 MG/15ML me_as_n eeded} HYDROcodone HYDROcodone No 1{table QID HYDROcodon -Acetaminop -Acetaminop t_as_ne e-Acetamin hen 7.5-325 hen 7.5-325 eded} ophen MG MG 7.5-325 MG Aspir-81 81 Aspir-81 81 No 1{table QD Aspir-81 MG MG t} 81 MG Gabapentin Gabapentin No 1{capsu QID Gabapentin 300 MG 300 MG le} 300 MG Klor-Con 10 Klor-Con 10 No 1{table BID Klor-Con 10 MEQ 10 MEQ t_with_ 10 10 MEQ food} Lovastatin Lovastatin No QD Lovastatin 20 MG 20 MG 20 MG Spiriva Spiriva No 1{capsu QD Spiriva HandiHaler HandiHaler le} HandiHaler 18 MCG 18 MCG 18 MCG Fluocinonid Fluocinonid No 1{appli BID Fluocinoni e 0.05 % e 0.05 % cation_ de 0.05 % to_affe cted_ar ea} Cefdinir Cefdinir No 1{capsu BID Cefdinir 300 MG 300 MG le} 300 MG Oxybutynin Oxybutynin No 1{table BID Oxybutynin Chloride 5 Chloride 5 t} Chloride 5 MG MG MG Doxycycline Doxycycline No 1{capsu QD Doxycyclin Monohydrate Monohydrate le} e 100 MG 100 MG Monohydrat e 100 MG Lovastatin Lovastatin No QD Lovastatin 20 MG 20 MG 20 MG Docusate Docusate No 1{capsu QD Docusate Sodium 100 Sodium 100 le_as_n Sodium 100 MG MG eeded} MG Motrin 400 Motrin 400 No Motrin 400 mg mg mg Nystatin Nystatin No 1{appli BID Nystatin 459036 739032 cation_ 151496 UNIT/GM UNIT/GM to_affe UNIT/GM cted_ar ea} Indomethaci Indomethaci No 1{capsu Indomethac n 50 MG n 50 MG le_with in 50 MG _food_o r_milk} Hydrocortis Hydrocortis No 1{appli BID Hydrocorti one 2.5 % one 2.5 % cation_ sone 2.5 % to_affe cted_ar ea} Motrin PM Motrin PM No 2{table QD Motrin PM 200-38 MG 200-38 MG ts_at_b 200-38 MG edtime_ as_need ed} Motrin PM Motrin PM No 2{table QD Motrin PM 200-38 MG 200-38 MG ts_at_b 200-38 MG edtime_ as_need ed} Metoprolol Metoprolol No 1{table BID Metoprolol Tartrate 25 Tartrate 25 t_with_ Tartrate MG MG food} 25 MG Oxybutynin Oxybutynin No 1{table BID Oxybutynin Chloride 5 Chloride 5 t} Chloride 5 MG MG MG Nystatin Nystatin No 1{appli BID Nystatin 101891 [id number] cation_ 906950 UNIT/GM UNIT/GM to_affe UNIT/GM cted_ar ea} Benadryl Benadryl No 1{table TID Benadryl Allergy 25 Allergy 25 t_as_ne Allergy 25 MG MG eded} MG Hydrocortis Hydrocortis No 1{appli BID Hydrocorti one 2.5 % one 2.5 % cation_ sone 2.5 % to_affe cted_ar ea} Furosemide Furosemide No 1{table BID Furosemide 40 MG 40 MG t} 40 MG Gabapentin Gabapentin No 1{capsu QID Gabapentin 300 MG 300 MG le} 300 MG Sennosides Sennosides No 15{ml_a QD Sennosides 25 MG/15ML 25 MG/15ML t_bedti 25 MG/15ML me_as_n eeded} Indomethaci Indomethaci No 1{capsu Indomethac n 50 MG n 50 MG le_with in 50 MG _food_o r_milk} Lovastatin Lovastatin No QD Lovastatin 20 MG 20 MG 20 MG Furosemide Furosemide No 1{table QD Furosemide 40 MG 40 MG t} 40 MG Xopenex HFA Xopenex HFA No 1{puff_ 6xD Xopenex 45 MCG/ACT 45 MCG/ACT as_need HFA 45 ed} MCG/ACT Lovastatin Lovastatin No QD Lovastatin 20 MG 20 MG 20 MG Klor-Con 10 Klor-Con 10 No 1{table BID Klor-Con 10 MEQ 10 MEQ t_with_ 10 10 MEQ food} Spiriva Spiriva No 1{capsu QD Spiriva HandiHaler HandiHaler le} HandiHaler 18 MCG 18 MCG 18 MCG Motrin 400 Motrin 400 No Motrin 400 mg mg mg Cefdinir Cefdinir No 1{capsu BID Cefdinir 300 MG 300 MG le} 300 MG Fluocinonid Fluocinonid No 1{appli BID Fluocinoni e 0.05 % e 0.05 % cation_ de 0.05 % to_affe cted_ar ea} Aspir-81 81 Aspir-81 81 No 1{table QD Aspir-81 MG MG t} 81 MG Doxycycline Doxycycline No 1{capsu QD Doxycyclin Monohydrate Monohydrate le} e 100 MG 100 MG Monohydrat e 100 MG HYDROcodone HYDROcodone No 1{table QID HYDROcodon -Acetaminop -Acetaminop t_as_ne e-Acetamin hen 7.5-325 hen 7.5-325 eded} ophen MG MG 7.5-325 MG Docusate Docusate No 1{capsu QD Docusate Sodium 100 Sodium 100 le_as_n Sodium 100 MG MG eeded} MG Motrin PM Motrin PM No 2{table QD Motrin PM 200-38 MG 200-38 MG ts_at_b 200-38 MG edtime_ as_need ed} Metoprolol Metoprolol No 1{table BID Metoprolol Tartrate 25 Tartrate 25 t_with_ Tartrate MG MG food} 25 MG Oxybutynin Oxybutynin No 1{table BID Oxybutynin Chloride 5 Chloride 5 t} Chloride 5 MG MG MG Nystatin Nystatin No 1{appli BID Nystatin 834401 883012 cation_ 956471 UNIT/GM UNIT/GM to_affe UNIT/GM cted_ar ea} Benadryl Benadryl No 1{table TID Benadryl Allergy 25 Allergy 25 t_as_ne Allergy 25 MG MG eded} MG Hydrocortis Hydrocortis No 1{appli BID Hydrocorti one 2.5 % one 2.5 % cation_ sone 2.5 % to_affe cted_ar ea} Furosemide Furosemide No 1{table BID Furosemide 40 MG 40 MG t} 40 MG Gabapentin Gabapentin No 1{capsu QID Gabapentin 300 MG 300 MG le} 300 MG Sennosides Sennosides No 15{ml_a QD Sennosides 25 MG/15ML 25 MG/15ML t_bedti 25 MG/15ML me_as_n eeded} Indomethaci Indomethaci No 1{capsu Indomethac n 50 MG n 50 MG le_with in 50 MG _food_o r_milk} Lovastatin Lovastatin No QD Lovastatin 20 MG 20 MG 20 MG Furosemide Furosemide No 1{table QD Furosemide 40 MG 40 MG t} 40 MG Xopenex HFA Xopenex HFA No 1{puff_ 6xD Xopenex 45 MCG/ACT 45 MCG/ACT as_need HFA 45 ed} MCG/ACT Lovastatin Lovastatin No QD Lovastatin 20 MG 20 MG 20 MG Klor-Con 10 Klor-Con 10 No 1{table BID Klor-Con 10 MEQ 10 MEQ t_with_ 10 10 MEQ food} Spiriva Spiriva No 1{capsu QD Spiriva HandiHaler HandiHaler le} HandiHaler 18 MCG 18 MCG 18 MCG Motrin 400 Motrin 400 No Motrin 400 mg mg mg Cefdinir Cefdinir No 1{capsu BID Cefdinir 300 MG 300 MG le} 300 MG Fluocinonid Fluocinonid No 1{appli BID Fluocinoni e 0.05 % e 0.05 % cation_ de 0.05 % to_affe cted_ar ea} Aspir-81 81 Aspir-81 81 No 1{table QD Aspir-81 MG MG t} 81 MG Doxycycline Doxycycline No 1{capsu QD Doxycyclin Monohydrate Monohydrate le} e 100 MG 100 MG Monohydrat e 100 MG HYDROcodone HYDROcodone No 1{table QID HYDROcodon -Acetaminop -Acetaminop t_as_ne e-Acetamin hen 7.5-325 hen 7.5-325 eded} ophen MG MG 7.5-325 MG Docusate Docusate No 1{capsu QD Docusate Sodium 100 Sodium 100 le_as_n Sodium 100 MG MG eeded} MG Motrin PM Motrin PM No 2{table QD Motrin PM 200-38 MG 200-38 MG ts_at_b 200-38 MG edtime_ as_need ed} Metoprolol Metoprolol No 1{table BID Metoprolol Tartrate 25 Tartrate 25 t_with_ Tartrate MG MG food} 25 MG Oxybutynin Oxybutynin No 1{table BID Oxybutynin Chloride 5 Chloride 5 t} Chloride 5 MG MG MG Nystatin Nystatin No 1{appli BID Nystatin [id number] cation_ 425424 UNIT/GM UNIT/GM to_affe UNIT/GM cted_ar ea} Benadryl Benadryl No 1{table TID Benadryl Allergy 25 Allergy 25 t_as_ne Allergy 25 MG MG eded} MG Hydrocortis Hydrocortis No 1{appli BID Hydrocorti one 2.5 % one 2.5 % cation_ sone 2.5 % to_affe cted_ar ea} Furosemide Furosemide No 1{table BID Furosemide 40 MG 40 MG t} 40 MG Gabapentin Gabapentin No 1{capsu QID Gabapentin 300 MG 300 MG le} 300 MG Sennosides Sennosides No 15{ml_a QD Sennosides 25 MG/15ML 25 MG/15ML t_bedti 25 MG/15ML me_as_n eeded} Indomethaci Indomethaci No 1{capsu Indomethac n 50 MG n 50 MG le_with in 50 MG _food_o r_milk} Lovastatin Lovastatin No QD Lovastatin 20 MG 20 MG 20 MG Xopenex HFA Xopenex HFA No 1{puff_ 6xD Xopenex 45 MCG/ACT 45 MCG/ACT as_need HFA 45 ed} MCG/ACT Lovastatin Lovastatin No QD Lovastatin 20 MG 20 MG 20 MG Klor-Con 10 Klor-Con 10 No 1{table BID Klor-Con 10 MEQ 10 MEQ t_with_ 10 10 MEQ food} Spiriva Spiriva No 1{capsu QD Spiriva HandiHaler HandiHaler le} HandiHaler 18 MCG 18 MCG 18 MCG Motrin 400 Motrin 400 No Motrin 400 mg mg mg Cefdinir Cefdinir No 1{capsu BID Cefdinir 300 MG 300 MG le} 300 MG Fluocinonid Fluocinonid No 1{appli BID Fluocinoni e 0.05 % e 0.05 % cation_ de 0.05 % to_affe cted_ar ea} Aspir-81 81 Aspir-81 81 No 1{table QD Aspir-81 MG MG t} 81 MG Doxycycline Doxycycline No 1{capsu QD Doxycyclin Monohydrate Monohydrate le} e 100 MG 100 MG Monohydrat e 100 MG Furosemide Furosemide No 1{table QD Furosemide 40 MG 40 MG t} 40 MG HYDROcodone HYDROcodone No 1{table QID HYDROcodon -Acetaminop -Acetaminop t_as_ne e-Acetamin hen 7.5-325 hen 7.5-325 eded} ophen MG MG 7.5-325 MG Docusate Docusate No 1{capsu QD Docusate Sodium 100 Sodium 100 le_as_n Sodium 100 MG MG eeded} MG Motrin PM Motrin PM No 2{table QD Motrin PM 200-38 MG 200-38 MG ts_at_b 200-38 MG edtime_ as_need ed} Metoprolol Metoprolol No 1{table BID Metoprolol Tartrate 25 Tartrate 25 t_with_ Tartrate MG MG food} 25 MG Oxybutynin Oxybutynin No 1{table BID Oxybutynin Chloride 5 Chloride 5 t} Chloride 5 MG MG MG Nystatin Nystatin No 1{appli BID Nystatin 772167 [id number] cation_ 166194 UNIT/GM UNIT/GM to_affe UNIT/GM cted_ar ea} Benadryl Benadryl No 1{table TID Benadryl Allergy 25 Allergy 25 t_as_ne Allergy 25 MG MG eded} MG Hydrocortis Hydrocortis No 1{appli BID Hydrocorti one 2.5 % one 2.5 % cation_ sone 2.5 % to_affe cted_ar ea} Furosemide Furosemide No 1{table BID Furosemide 40 MG 40 MG t} 40 MG Klor-Con 10 Klor-Con 10 No 1{table BID Klor-Con 10 MEQ 10 MEQ t_with_ 10 10 MEQ food} Sennosides Sennosides No 15{ml_a QD Sennosides 25 MG/15ML 25 MG/15ML t_bedti 25 MG/15ML me_as_n eeded} Lovastatin Lovastatin No QD Lovastatin 20 MG 20 MG 20 MG Gabapentin Gabapentin No 1{capsu QID Gabapentin 300 MG 300 MG le} 300 MG Indomethaci Indomethaci No 1{capsu Indomethac n 50 MG n 50 MG le_with in 50 MG _food_o r_milk} Xopenex HFA Xopenex HFA No 1{puff_ 6xD Xopenex 45 MCG/ACT 45 MCG/ACT as_need HFA 45 ed} MCG/ACT Lovastatin Lovastatin No QD Lovastatin 20 MG 20 MG 20 MG Spiriva Spiriva No 1{capsu QD Spiriva HandiHaler HandiHaler le} HandiHaler 18 MCG 18 MCG 18 MCG Motrin 400 Motrin 400 No Motrin 400 mg mg mg Cefdinir Cefdinir No 1{capsu BID Cefdinir 300 MG 300 MG le} 300 MG Fluocinonid Fluocinonid No 1{appli BID Fluocinoni e 0.05 % e 0.05 % cation_ de 0.05 % to_affe cted_ar ea} Aspir-81 81 Aspir-81 81 No 1{table QD Aspir-81 MG MG t} 81 MG Doxycycline Doxycycline No 1{capsu QD Doxycyclin Monohydrate Monohydrate le} e 100 MG 100 MG Monohydrat e 100 MG Furosemide Furosemide No 1{table QD Furosemide 40 MG 40 MG t} 40 MG HYDROcodone HYDROcodone No 1{table QID HYDROcodon -Acetaminop -Acetaminop t_as_ne e-Acetamin hen 7.5-325 hen 7.5-325 eded} ophen MG MG 7.5-325 MG Docusate Docusate No 1{capsu QD Docusate Sodium 100 Sodium 100 le_as_n Sodium 100 MG MG eeded} MG Sennosides Sennosides No 15{ml_a QD Sennosides 25 MG/15ML 25 MG/15ML t_bedti 25 MG/15ML me_as_n eeded} Benadryl Benadryl No 1{table TID Benadryl Allergy 25 Allergy 25 t_as_ne Allergy 25 MG MG eded} MG Motrin 400 Motrin 400 No Motrin 400 mg mg mg Xopenex HFA Xopenex HFA No 1{puff_ 6xD Xopenex 45 MCG/ACT 45 MCG/ACT as_need HFA 45 ed} MCG/ACT Aspir-81 81 Aspir-81 81 No 1{table QD Aspir-81 MG MG t} 81 MG Klor-Con 10 Klor-Con 10 No 1{table BID Klor-Con 10 MEQ 10 MEQ t_with_ 10 10 MEQ food} Doxycycline Doxycycline No 1{capsu QD Doxycyclin Monohydrate Monohydrate le} e 100 MG 100 MG Monohydrat e 100 MG Furosemide Furosemide No Furosemide 40 MG 40 MG 40 MG Gabapentin Gabapentin No 1{capsu QID Gabapentin 300 MG 300 MG le} 300 MG Indomethaci Indomethaci No 1{capsu Indomethac n 50 MG n 50 MG le_with in 50 MG _food_o r_milk} Spiriva Spiriva No 1{capsu QD Spiriva HandiHaler HandiHaler le} HandiHaler 18 MCG 18 MCG 18 MCG Fluocinonid Fluocinonid No 1{appli BID Fluocinoni e 0.05 % e 0.05 % cation_ de 0.05 % to_affe cted_ar ea} HYDROcodone HYDROcodone No 1{table QID HYDROcodon -Acetaminop -Acetaminop t_as_ne e-Acetamin hen 7.5-325 hen 7.5-325 eded} ophen MG MG 7.5-325 MG Oxybutynin Oxybutynin No 1{table BID Oxybutynin Chloride 5 Chloride 5 t} Chloride 5 MG MG MG Metoprolol Metoprolol No 1{table BID Metoprolol Tartrate 25 Tartrate 25 t_with_ Tartrate MG MG food} 25 MG Hydrocortis Hydrocortis No 1{appli BID Hydrocorti one 2.5 % one 2.5 % cation_ sone 2.5 % to_affe cted_ar ea} Docusate Docusate No 1{capsu QD Docusate Sodium 100 Sodium 100 le_as_n Sodium 100 MG MG eeded} MG Nystatin Nystatin No 1{appli BID Nystatin [id number] cation_ 300779 UNIT/GM UNIT/GM to_affe UNIT/GM cted_ar ea} Lovastatin Lovastatin No Lovastatin 20 MG 20 MG 20 MG Cefdinir Cefdinir No 1{capsu BID Cefdinir 300 MG 300 MG le} 300 MG Motrin PM Motrin PM No 2{table QD Motrin PM 200-38 MG 200-38 MG ts_at_b 200-38 MG edtime_ as_need ed} Sennosides Sennosides No 15{ml_a QD Sennosides 25 MG/15ML 25 MG/15ML t_bedti 25 MG/15ML me_as_n eeded} Benadryl Benadryl No 1{table TID Benadryl Allergy 25 Allergy 25 t_as_ne Allergy 25 MG MG eded} MG Motrin 400 Motrin 400 No Motrin 400 mg mg mg Xopenex HFA Xopenex HFA No 1{puff_ 6xD Xopenex 45 MCG/ACT 45 MCG/ACT as_need HFA 45 ed} MCG/ACT Aspir-81 81 Aspir-81 81 No 1{table QD Aspir-81 MG MG t} 81 MG Klor-Con 10 Klor-Con 10 No 1{table BID Klor-Con 10 MEQ 10 MEQ t_with_ 10 10 MEQ food} Doxycycline Doxycycline No 1{capsu QD Doxycyclin Monohydrate Monohydrate le} e 100 MG 100 MG Monohydrat e 100 MG Furosemide Furosemide No Furosemide 40 MG 40 MG 40 MG Gabapentin Gabapentin No 1{capsu QID Gabapentin 300 MG 300 MG le} 300 MG Indomethaci Indomethaci No 1{capsu Indomethac n 50 MG n 50 MG le_with in 50 MG _food_o r_milk} Spiriva Spiriva No 1{capsu QD Spiriva HandiHaler HandiHaler le} HandiHaler 18 MCG 18 MCG 18 MCG Fluocinonid Fluocinonid No 1{appli BID Fluocinoni e 0.05 % e 0.05 % cation_ de 0.05 % to_affe cted_ar ea} HYDROcodone HYDROcodone No 1{table QID HYDROcodon -Acetaminop -Acetaminop t_as_ne e-Acetamin hen 7.5-325 hen 7.5-325 eded} ophen MG MG 7.5-325 MG Oxybutynin Oxybutynin No 1{table BID Oxybutynin Chloride 5 Chloride 5 t} Chloride 5 MG MG MG Metoprolol Metoprolol No 1{table BID Metoprolol Tartrate 25 Tartrate 25 t_with_ Tartrate MG MG food} 25 MG Hydrocortis Hydrocortis No 1{appli BID Hydrocorti one 2.5 % one 2.5 % cation_ sone 2.5 % to_affe cted_ar ea} Docusate Docusate No 1{capsu QD Docusate Sodium 100 Sodium 100 le_as_n Sodium 100 MG MG eeded} MG Nystatin Nystatin No 1{appli BID Nystatin [id number] cation_ 215778 UNIT/GM UNIT/GM to_affe UNIT/GM cted_ar ea} Lovastatin Lovastatin No Lovastatin 20 MG 20 MG 20 MG Cefdinir Cefdinir No 1{capsu BID Cefdinir 300 MG 300 MG le} 300 MG Motrin PM Motrin PM No 2{table QD Motrin PM 200-38 MG 200-38 MG ts_at_b 200-38 MG edtime_ as_need ed} Benadryl Benadryl No 1{table TID Benadryl Allergy 25 Allergy 25 t_as_ne Allergy 25 MG MG eded} MG Aspir-81 81 Aspir-81 81 No 1{table QD Aspir-81 MG MG t} 81 MG Xopenex HFA Xopenex HFA No 1{puff_ 6xD Xopenex 45 MCG/ACT 45 MCG/ACT as_need HFA 45 ed} MCG/ACT Sennosides Sennosides No 15{ml_a QD Sennosides 25 MG/15ML 25 MG/15ML t_bedti 25 MG/15ML me_as_n eeded} Klor-Con 10 Klor-Con 10 No 1{table BID Klor-Con 10 MEQ 10 MEQ t_with_ 10 10 MEQ food} Motrin 400 Motrin 400 No Motrin 400 mg mg mg Furosemide Furosemide No Furosemide 40 MG 40 MG 40 MG Gabapentin Gabapentin No 1{capsu QID Gabapentin 300 MG 300 MG le} 300 MG Indomethaci Indomethaci No 1{capsu Indomethac n 50 MG n 50 MG le_with in 50 MG _food_o r_milk} Spiriva Spiriva No 1{capsu QD Spiriva HandiHaler HandiHaler le} HandiHaler 18 MCG 18 MCG 18 MCG Fluocinonid Fluocinonid No 1{appli BID Fluocinoni e 0.05 % e 0.05 % cation_ de 0.05 % to_affe cted_ar ea} HYDROcodone HYDROcodone No 1{table QID HYDROcodon -Acetaminop -Acetaminop t_as_ne e-Acetamin hen 7.5-325 hen 7.5-325 eded} ophen MG MG 7.5-325 MG Oxybutynin Oxybutynin No 1{table BID Oxybutynin Chloride 5 Chloride 5 t} Chloride 5 MG MG MG Nystatin Nystatin No 1{appli BID Nystatin [id number] cation_ 883945 UNIT/GM UNIT/GM to_affe UNIT/GM cted_ar ea} Hydrocortis Hydrocortis No 1{appli BID Hydrocorti one 2.5 % one 2.5 % cation_ sone 2.5 % to_affe cted_ar ea} Docusate Docusate No 1{capsu QD Docusate Sodium 100 Sodium 100 le_as_n Sodium 100 MG MG eeded} MG Doxycycline Doxycycline No 1{capsu QD Doxycyclin Monohydrate Monohydrate le} e 100 MG 100 MG Monohydrat e 100 MG Metoprolol Metoprolol No 1{table BID Metoprolol Tartrate 25 Tartrate 25 t_with_ Tartrate MG MG food} 25 MG Lovastatin Lovastatin No Lovastatin 20 MG 20 MG 20 MG Cefdinir Cefdinir No 1{capsu BID Cefdinir 300 MG 300 MG le} 300 MG Motrin PM Motrin PM No 2{table QD Motrin PM 200-38 MG 200-38 MG ts_at_b 200-38 MG edtime_ as_need ed} Lovastatin Lovastatin No Lovastatin 20 MG 20 MG 20 MG Spiriva Spiriva No 1{capsu QD Spiriva HandiHaler HandiHaler le} HandiHaler 18 MCG 18 MCG 18 MCG HYDROcodone HYDROcodone No 1{table QID HYDROcodon -Acetaminop -Acetaminop t_as_ne e-Acetamin hen 7.5-325 hen 7.5-325 eded} ophen MG MG 7.5-325 MG Motrin PM Motrin PM No 2{table QD Motrin PM 200-38 MG 200-38 MG ts_at_b 200-38 MG edtime_ as_need ed} Sennosides Sennosides No 15{ml_a QD Sennosides 25 MG/15ML 25 MG/15ML t_bedti 25 MG/15ML me_as_n eeded} Docusate Docusate No 1{capsu QD Docusate Sodium 100 Sodium 100 le_as_n Sodium 100 MG MG eeded} MG Furosemide Furosemide No 1{table BID Furosemide 40 MG 40 MG t} 40 MG Metoprolol Metoprolol No 1{table BID Metoprolol Tartrate 25 Tartrate 25 t_with_ Tartrate MG MG food} 25 MG Lovastatin Lovastatin No QD Lovastatin 20 MG 20 MG 20 MG Cefdinir Cefdinir No 1{capsu BID Cefdinir 300 MG 300 MG le} 300 MG Gabapentin Gabapentin No 1{capsu Gabapentin 300 MG 300 MG le} 300 MG Klor-Con 10 Klor-Con 10 No 1{table BID Klor-Con 10 MEQ 10 MEQ t_with_ 10 10 MEQ food} Xopenex HFA Xopenex HFA No 1{puff_ 6xD Xopenex 45 MCG/ACT 45 MCG/ACT as_need HFA 45 ed} MCG/ACT Aspir-81 81 Aspir-81 81 No 1{table QD Aspir-81 MG MG t} 81 MG Oxybutynin Oxybutynin No 1{table BID Oxybutynin Chloride 5 Chloride 5 t} Chloride 5 MG MG MG Motrin 400 Motrin 400 No Motrin 400 mg mg mg Nystatin Nystatin No 1{appli BID Nystatin [id number] cation_ 505426 UNIT/GM UNIT/GM to_affe UNIT/GM cted_ar ea} Furosemide Furosemide No Furosemide 40 MG 40 MG 40 MG Hydrocortis Hydrocortis No 1{appli BID Hydrocorti one 2.5 % one 2.5 % cation_ sone 2.5 % to_affe cted_ar ea} Fluocinonid Fluocinonid No 1{appli BID Fluocinoni e 0.05 % e 0.05 % cation_ de 0.05 % to_affe cted_ar ea} Indomethaci Indomethaci No 1{capsu Indomethac n 50 MG n 50 MG le_with in 50 MG _food_o r_milk} Doxycycline Doxycycline No 1{capsu QD Doxycyclin Monohydrate Monohydrate le} e 100 MG 100 MG Monohydrat e 100 MG Benadryl Benadryl No 1{table TID Benadryl Allergy 25 Allergy 25 t_as_ne Allergy 25 MG MG eded} MG Lovastatin Lovastatin No Lovastatin 20 MG 20 MG 20 MG Spiriva Spiriva No 1{capsu QD Spiriva HandiHaler HandiHaler le} HandiHaler 18 MCG 18 MCG 18 MCG HYDROcodone HYDROcodone No 1{table QID HYDROcodon -Acetaminop -Acetaminop t_as_ne e-Acetamin hen 7.5-325 hen 7.5-325 eded} ophen MG MG 7.5-325 MG Motrin PM Motrin PM No 2{table QD Motrin PM 200-38 MG 200-38 MG ts_at_b 200-38 MG edtime_ as_need ed} Sennosides Sennosides No 15{ml_a QD Sennosides 25 MG/15ML 25 MG/15ML t_bedti 25 MG/15ML me_as_n eeded} Docusate Docusate No 1{capsu QD Docusate Sodium 100 Sodium 100 le_as_n Sodium 100 MG MG eeded} MG Furosemide Furosemide No 1{table BID Furosemide 40 MG 40 MG t} 40 MG Metoprolol Metoprolol No 1{table BID Metoprolol Tartrate 25 Tartrate 25 t_with_ Tartrate MG MG food} 25 MG Lovastatin Lovastatin No QD Lovastatin 20 MG 20 MG 20 MG Cefdinir Cefdinir No 1{capsu BID Cefdinir 300 MG 300 MG le} 300 MG Gabapentin Gabapentin No 1{capsu Gabapentin 300 MG 300 MG le} 300 MG Klor-Con 10 Klor-Con 10 No 1{table BID Klor-Con 10 MEQ 10 MEQ t_with_ 10 10 MEQ food} Xopenex HFA Xopenex HFA No 1{puff_ 6xD Xopenex 45 MCG/ACT 45 MCG/ACT as_need HFA 45 ed} MCG/ACT Aspir-81 81 Aspir-81 81 No 1{table QD Aspir-81 MG MG t} 81 MG Oxybutynin Oxybutynin No 1{table BID Oxybutynin Chloride 5 Chloride 5 t} Chloride 5 MG MG MG Motrin 400 Motrin 400 No Motrin 400 mg mg mg Nystatin Nystatin No 1{appli BID Nystatin [id number] cation_ 304852 UNIT/GM UNIT/GM to_affe UNIT/GM cted_ar ea} Furosemide Furosemide No Furosemide 40 MG 40 MG 40 MG Hydrocortis Hydrocortis No 1{appli BID Hydrocorti one 2.5 % one 2.5 % cation_ sone 2.5 % to_affe cted_ar ea} Fluocinonid Fluocinonid No 1{appli BID Fluocinoni e 0.05 % e 0.05 % cation_ de 0.05 % to_affe cted_ar ea} Indomethaci Indomethaci No 1{capsu Indomethac n 50 MG n 50 MG le_with in 50 MG _food_o r_milk} Doxycycline Doxycycline No 1{capsu QD Doxycyclin Monohydrate Monohydrate le} e 100 MG 100 MG Monohydrat e 100 MG Benadryl Benadryl No 1{table TID Benadryl Allergy 25 Allergy 25 t_as_ne Allergy 25 MG MG eded} MG Indomethaci Indomethaci No 1{capsu Indomethac n 50 MG n 50 MG le_with in 50 MG _food_o r_milk} Doxycycline Doxycycline No 1{capsu QD Doxycyclin Monohydrate Monohydrate le} e 100 MG 100 MG Monohydrat e 100 MG Furosemide Furosemide No Furosemide 40 MG 40 MG 40 MG Lovastatin Lovastatin No QD Lovastatin 20 MG 20 MG 20 MG Spiriva Spiriva No 1{capsu QD Spiriva HandiHaler HandiHaler le} HandiHaler 18 MCG 18 MCG 18 MCG Cefdinir Cefdinir No 1{capsu BID Cefdinir 300 MG 300 MG le} 300 MG Motrin 400 Motrin 400 No Motrin 400 mg mg mg Lovastatin Lovastatin No Lovastatin 20 MG 20 MG 20 MG Nystatin Nystatin No 1{appli BID Nystatin [id number] cation_ 618335 UNIT/GM UNIT/GM to_affe UNIT/GM cted_ar ea} Furosemide Furosemide No 1{table BID Furosemide 40 MG 40 MG t} 40 MG Oxybutynin Oxybutynin No 1{table BID Oxybutynin Chloride 5 Chloride 5 t} Chloride 5 MG MG MG Motrin PM Motrin PM No 2{table QD Motrin PM 200-38 MG 200-38 MG ts_at_b 200-38 MG edtime_ as_need ed} Sennosides Sennosides No 15{ml_a QD Sennosides 25 MG/15ML 25 MG/15ML t_bedti 25 MG/15ML me_as_n eeded} Benadryl Benadryl No 1{table TID Benadryl Allergy 25 Allergy 25 t_as_ne Allergy 25 MG MG eded} MG Docusate Docusate No 1{capsu QD Docusate Sodium 100 Sodium 100 le_as_n Sodium 100 MG MG eeded} MG Metoprolol Metoprolol No 1{table BID Metoprolol Tartrate 25 Tartrate 25 t_with_ Tartrate MG MG food} 25 MG Aspir-81 81 Aspir-81 81 No 1{table QD Aspir-81 MG MG t} 81 MG Gabapentin Gabapentin No 1{capsu Gabapentin 300 MG 300 MG le} 300 MG HYDROcodone HYDROcodone No 1{table QID HYDROcodon -Acetaminop -Acetaminop t_as_ne e-Acetamin hen 7.5-325 hen 7.5-325 eded} ophen MG MG 7.5-325 MG Fluocinonid Fluocinonid No 1{appli BID Fluocinoni e 0.05 % e 0.05 % cation_ de 0.05 % to_affe cted_ar ea} Hydrocortis Hydrocortis No 1{appli BID Hydrocorti one 2.5 % one 2.5 % cation_ sone 2.5 % to_affe cted_ar ea} Xopenex HFA Xopenex HFA No 1{puff_ 6xD Xopenex 45 MCG/ACT 45 MCG/ACT as_need HFA 45 ed} MCG/ACT Klor-Con 10 Klor-Con 10 No 1{table BID Klor-Con 10 MEQ 10 MEQ t_with_ 10 10 MEQ food} Indomethaci Indomethaci No 1{capsu Indomethac n 50 MG n 50 MG le_with in 50 MG _food_o r_milk} Doxycycline Doxycycline No 1{capsu QD Doxycyclin Monohydrate Monohydrate le} e 100 MG 100 MG Monohydrat e 100 MG Furosemide Furosemide No Furosemide 40 MG 40 MG 40 MG Lovastatin Lovastatin No QD Lovastatin 20 MG 20 MG 20 MG Spiriva Spiriva No 1{capsu QD Spiriva HandiHaler HandiHaler le} HandiHaler 18 MCG 18 MCG 18 MCG Cefdinir Cefdinir No 1{capsu BID Cefdinir 300 MG 300 MG le} 300 MG Motrin 400 Motrin 400 No Motrin 400 mg mg mg Lovastatin Lovastatin No Lovastatin 20 MG 20 MG 20 MG Nystatin Nystatin No 1{appli BID Nystatin [id number] cation_ 047331 UNIT/GM UNIT/GM to_affe UNIT/GM cted_ar ea} Furosemide Furosemide No 1{table BID Furosemide 40 MG 40 MG t} 40 MG Oxybutynin Oxybutynin No 1{table BID Oxybutynin Chloride 5 Chloride 5 t} Chloride 5 MG MG MG Motrin PM Motrin PM No 2{table QD Motrin PM 200-38 MG 200-38 MG ts_at_b 200-38 MG edtime_ as_need ed} Sennosides Sennosides No 15{ml_a QD Sennosides 25 MG/15ML 25 MG/15ML t_bedti 25 MG/15ML me_as_n eeded} Benadryl Benadryl No 1{table TID Benadryl Allergy 25 Allergy 25 t_as_ne Allergy 25 MG MG eded} MG Docusate Docusate No 1{capsu QD Docusate Sodium 100 Sodium 100 le_as_n Sodium 100 MG MG eeded} MG Metoprolol Metoprolol No 1{table BID Metoprolol Tartrate 25 Tartrate 25 t_with_ Tartrate MG MG food} 25 MG Aspir-81 81 Aspir-81 81 No 1{table QD Aspir-81 MG MG t} 81 MG Gabapentin Gabapentin No 1{capsu Gabapentin 300 MG 300 MG le} 300 MG HYDROcodone HYDROcodone No 1{table QID HYDROcodon -Acetaminop -Acetaminop t_as_ne e-Acetamin hen 7.5-325 hen 7.5-325 eded} ophen MG MG 7.5-325 MG Fluocinonid Fluocinonid No 1{appli BID Fluocinoni e 0.05 % e 0.05 % cation_ de 0.05 % to_affe cted_ar ea} Hydrocortis Hydrocortis No 1{appli BID Hydrocorti one 2.5 % one 2.5 % cation_ sone 2.5 % to_affe cted_ar ea} Xopenex HFA Xopenex HFA No 1{puff_ 6xD Xopenex 45 MCG/ACT 45 MCG/ACT as_need HFA 45 ed} MCG/ACT Klor-Con 10 Klor-Con 10 No 1{table BID Klor-Con 10 MEQ 10 MEQ t_with_ 10 10 MEQ food} Furosemide Furosemide No 1{table BID Furosemide 40 MG 40 MG t} 40 MG Xopenex HFA Xopenex HFA No 1{puff_ 6xD Xopenex 45 MCG/ACT 45 MCG/ACT as_need HFA 45 ed} MCG/ACT Doxycycline Doxycycline No 1{capsu QD Doxycyclin Monohydrate Monohydrate le} e 100 MG 100 MG Monohydrat e 100 MG Benadryl Benadryl No 1{table TID Benadryl Allergy 25 Allergy 25 t_as_ne Allergy 25 MG MG eded} MG Spiriva Spiriva No 1{capsu QD Spiriva HandiHaler HandiHaler le} HandiHaler 18 MCG 18 MCG 18 MCG Indomethaci Indomethaci No 1{capsu Indomethac n 50 MG n 50 MG le_with in 50 MG _food_o r_milk} Aspir-81 81 Aspir-81 81 No 1{table QD Aspir-81 MG MG t} 81 MG Fluocinonid Fluocinonid No 1{appli BID Fluocinoni e 0.05 % e 0.05 % cation_ de 0.05 % to_affe cted_ar ea} Sennosides Sennosides No 15{ml_a QD Sennosides 25 MG/15ML 25 MG/15ML t_bedti 25 MG/15ML me_as_n eeded} Fosfomycin Fosfomycin No Fosfomycin Tromethamin Tromethamin Tromethami e 3 GM e 3 GM ne 3 GM Metoprolol Metoprolol No 1{table BID Metoprolol Tartrate 25 Tartrate 25 t_with_ Tartrate MG MG food} 25 MG HYDROcodone HYDROcodone No 1{table QID HYDROcodon -Acetaminop -Acetaminop t_as_ne e-Acetamin hen 7.5-325 hen 7.5-325 eded} ophen MG MG 7.5-325 MG Lovastatin Lovastatin No QD Lovastatin 20 MG 20 MG 20 MG Potassium Potassium No QD Potassium Chloride 20 Chloride 20 Chloride MEQ MEQ 20 MEQ Motrin 400 Motrin 400 No Motrin 400 mg mg mg Motrin PM Motrin PM No 2{table QD Motrin PM 200-38 MG 200-38 MG ts_at_b 200-38 MG edtime_ as_need ed} Nystatin Nystatin No 1{appli BID Nystatin [id number] cation_ 446793 UNIT/GM UNIT/GM to_affe UNIT/GM cted_ar ea} Hydrocortis Hydrocortis No 1{appli BID Hydrocorti one 2.5 % one 2.5 % cation_ sone 2.5 % to_affe cted_ar ea} Cefdinir Cefdinir No 1{capsu BID Cefdinir 300 MG 300 MG le} 300 MG Oxybutynin Oxybutynin No 1{table BID Oxybutynin Chloride 5 Chloride 5 t} Chloride 5 MG MG MG Docusate Docusate No 1{capsu QD Docusate Sodium 100 Sodium 100 le_as_n Sodium 100 MG MG eeded} MG Lovastatin Lovastatin No Lovastatin 20 MG 20 MG 20 MG Furosemide Furosemide No Furosemide 40 MG 40 MG 40 MG Gabapentin Gabapentin No 1{capsu Gabapentin 300 MG 300 MG le} 300 MG Furosemide Furosemide No 1{table BID Furosemide 40 MG 40 MG t} 40 MG Xopenex HFA Xopenex HFA No 1{puff_ 6xD Xopenex 45 MCG/ACT 45 MCG/ACT as_need HFA 45 ed} MCG/ACT Doxycycline Doxycycline No 1{capsu QD Doxycyclin Monohydrate Monohydrate le} e 100 MG 100 MG Monohydrat e 100 MG Benadryl Benadryl No 1{table TID Benadryl Allergy 25 Allergy 25 t_as_ne Allergy 25 MG MG eded} MG Spiriva Spiriva No 1{capsu QD Spiriva HandiHaler HandiHaler le} HandiHaler 18 MCG 18 MCG 18 MCG Indomethaci Indomethaci No 1{capsu Indomethac n 50 MG n 50 MG le_with in 50 MG _food_o r_milk} Aspir-81 81 Aspir-81 81 No 1{table QD Aspir-81 MG MG t} 81 MG Fluocinonid Fluocinonid No 1{appli BID Fluocinoni e 0.05 % e 0.05 % cation_ de 0.05 % to_affe cted_ar ea} Sennosides Sennosides No 15{ml_a QD Sennosides 25 MG/15ML 25 MG/15ML t_bedti 25 MG/15ML me_as_n eeded} Fosfomycin Fosfomycin No Fosfomycin Tromethamin Tromethamin Tromethami e 3 GM e 3 GM ne 3 GM Metoprolol Metoprolol No 1{table BID Metoprolol Tartrate 25 Tartrate 25 t_with_ Tartrate MG MG food} 25 MG HYDROcodone HYDROcodone No 1{table QID HYDROcodon -Acetaminop -Acetaminop t_as_ne e-Acetamin hen 7.5-325 hen 7.5-325 eded} ophen MG MG 7.5-325 MG Lovastatin Lovastatin No QD Lovastatin 20 MG 20 MG 20 MG Potassium Potassium No QD Potassium Chloride 20 Chloride 20 Chloride MEQ MEQ 20 MEQ Motrin 400 Motrin 400 No Motrin 400 mg mg mg Motrin PM Motrin PM No 2{table QD Motrin PM 200-38 MG 200-38 MG ts_at_b 200-38 MG edtime_ as_need ed} Nystatin Nystatin No 1{appli BID Nystatin [id number] cation_ 892941 UNIT/GM UNIT/GM to_affe UNIT/GM cted_ar ea} Hydrocortis Hydrocortis No 1{appli BID Hydrocorti one 2.5 % one 2.5 % cation_ sone 2.5 % to_affe cted_ar ea} Cefdinir Cefdinir No 1{capsu BID Cefdinir 300 MG 300 MG le} 300 MG Oxybutynin Oxybutynin No 1{table BID Oxybutynin Chloride 5 Chloride 5 t} Chloride 5 MG MG MG Docusate Docusate No 1{capsu QD Docusate Sodium 100 Sodium 100 le_as_n Sodium 100 MG MG eeded} MG Lovastatin Lovastatin No Lovastatin 20 MG 20 MG 20 MG Furosemide Furosemide No Furosemide 40 MG 40 MG 40 MG Gabapentin Gabapentin No 1{capsu Gabapentin 300 MG 300 MG le} 300 MG Furosemide Furosemide No 1{table BID Furosemide 40 MG 40 MG t} 40 MG Xopenex HFA Xopenex HFA No 1{puff_ 6xD Xopenex 45 MCG/ACT 45 MCG/ACT as_need HFA 45 ed} MCG/ACT Doxycycline Doxycycline No 1{capsu QD Doxycyclin Monohydrate Monohydrate le} e 100 MG 100 MG Monohydrat e 100 MG Benadryl Benadryl No 1{table TID Benadryl Allergy 25 Allergy 25 t_as_ne Allergy 25 MG MG eded} MG Spiriva Spiriva No 1{capsu QD Spiriva HandiHaler HandiHaler le} HandiHaler 18 MCG 18 MCG 18 MCG Indomethaci Indomethaci No 1{capsu Indomethac n 50 MG n 50 MG le_with in 50 MG _food_o r_milk} Aspir-81 81 Aspir-81 81 No 1{table QD Aspir-81 MG MG t} 81 MG Fluocinonid Fluocinonid No 1{appli BID Fluocinoni e 0.05 % e 0.05 % cation_ de 0.05 % to_affe cted_ar ea} Sennosides Sennosides No 15{ml_a QD Sennosides 25 MG/15ML 25 MG/15ML t_bedti 25 MG/15ML me_as_n eeded} Fosfomycin Fosfomycin No Fosfomycin Tromethamin Tromethamin Tromethami e 3 GM e 3 GM ne 3 GM Metoprolol Metoprolol No 1{table BID Metoprolol Tartrate 25 Tartrate 25 t_with_ Tartrate MG MG food} 25 MG HYDROcodone HYDROcodone No 1{table QID HYDROcodon -Acetaminop -Acetaminop t_as_ne e-Acetamin hen 7.5-325 hen 7.5-325 eded} ophen MG MG 7.5-325 MG Lovastatin Lovastatin No QD Lovastatin 20 MG 20 MG 20 MG Potassium Potassium No QD Potassium Chloride 20 Chloride 20 Chloride MEQ MEQ 20 MEQ Motrin 400 Motrin 400 No Motrin 400 mg mg mg Motrin PM Motrin PM No 2{table QD Motrin PM 200-38 MG 200-38 MG ts_at_b 200-38 MG edtime_ as_need ed} Nystatin Nystatin No 1{appli BID Nystatin [id number] cation_ 562211 UNIT/GM UNIT/GM to_affe UNIT/GM cted_ar ea} Hydrocortis Hydrocortis No 1{appli BID Hydrocorti one 2.5 % one 2.5 % cation_ sone 2.5 % to_affe cted_ar ea} Cefdinir Cefdinir No 1{capsu BID Cefdinir 300 MG 300 MG le} 300 MG Oxybutynin Oxybutynin No 1{table BID Oxybutynin Chloride 5 Chloride 5 t} Chloride 5 MG MG MG Docusate Docusate No 1{capsu QD Docusate Sodium 100 Sodium 100 le_as_n Sodium 100 MG MG eeded} MG Lovastatin Lovastatin No Lovastatin 20 MG 20 MG 20 MG Furosemide Furosemide No Furosemide 40 MG 40 MG 40 MG Gabapentin Gabapentin No 1{capsu Gabapentin 300 MG 300 MG le} 300 MG Cefdinir Cefdinir No 1{capsu BID Cefdinir 300 MG 300 MG le} 300 MG Hydrocortis Hydrocortis No 1{appli BID Hydrocorti one 2.5 % one 2.5 % cation_ sone 2.5 % to_affe cted_ar ea} Oxybutynin Oxybutynin No 1{table BID Oxybutynin Chloride 5 Chloride 5 t} Chloride 5 MG MG MG Motrin PM Motrin PM No 2{table QD Motrin PM 200-38 MG 200-38 MG ts_at_b 200-38 MG edtime_ as_need ed} Doxycycline Doxycycline No 1{capsu QD Doxycyclin Monohydrate Monohydrate le} e 100 MG 100 MG Monohydrat e 100 MG Docusate Docusate No 1{capsu QD Docusate Sodium 100 Sodium 100 le_as_n Sodium 100 MG MG eeded} MG Motrin 400 Motrin 400 No Motrin 400 mg mg mg Sennosides Sennosides No 15{ml_a QD Sennosides 25 MG/15ML 25 MG/15ML t_bedti 25 MG/15ML me_as_n eeded} Nystatin Nystatin No 1{appli BID Nystatin [id number] cation_ 603626 UNIT/GM UNIT/GM to_affe UNIT/GM cted_ar ea} Spiriva Spiriva No 1{capsu QD Spiriva HandiHaler HandiHaler le} HandiHaler 18 MCG 18 MCG 18 MCG Metoprolol Metoprolol No 1{table BID Metoprolol Tartrate 25 Tartrate 25 t_with_ Tartrate MG MG food} 25 MG Furosemide Furosemide No 1{table BID Furosemide 40 MG 40 MG t} 40 MG Aspir-81 81 Aspir-81 81 No 1{table QD Aspir-81 MG MG t} 81 MG Xopenex HFA Xopenex HFA No 1{puff_ 6xD Xopenex 45 MCG/ACT 45 MCG/ACT as_need HFA 45 ed} MCG/ACT Lovastatin Lovastatin No Lovastatin 20 MG 20 MG 20 MG Gabapentin Gabapentin No 1{capsu Gabapentin 300 MG 300 MG le} 300 MG HYDROcodone HYDROcodone No 1{table QID HYDROcodon -Acetaminop -Acetaminop t_as_ne e-Acetamin hen 7.5-325 hen 7.5-325 eded} ophen MG MG 7.5-325 MG Fluocinonid Fluocinonid No 1{appli BID Fluocinoni e 0.05 % e 0.05 % cation_ de 0.05 % to_affe cted_ar ea} Indomethaci Indomethaci No 1{capsu Indomethac n 50 MG n 50 MG le_with in 50 MG _food_o r_milk} Fosfomycin Fosfomycin No Fosfomycin Tromethamin Tromethamin Tromethami e 3 GM e 3 GM ne 3 GM Potassium Potassium No QD Potassium Chloride 20 Chloride 20 Chloride MEQ MEQ 20 MEQ Furosemide Furosemide No Furosemide 40 MG 40 MG 40 MG Benadryl Benadryl No 1{table TID Benadryl Allergy 25 Allergy 25 t_as_ne Allergy 25 MG MG eded} MG Lovastatin Lovastatin No QD Lovastatin 20 MG 20 MG 20 MG Doxycycline Doxycycline No 1{capsu QD Doxycyclin Monohydrate Monohydrate le} e 100 MG 100 MG Monohydrat e 100 MG Furosemide Furosemide No 1{table BID Furosemide 40 MG 40 MG t} 40 MG Potassium Potassium No QD Potassium Chloride 20 Chloride 20 Chloride MEQ MEQ 20 MEQ Lovastatin Lovastatin No QD Lovastatin 20 MG 20 MG 20 MG Gabapentin Gabapentin No 1{capsu Gabapentin 300 MG 300 MG le} 300 MG Cefdinir Cefdinir No 1{capsu BID Cefdinir 300 MG 300 MG le} 300 MG Sennosides Sennosides No 15{ml_a QD Sennosides 25 MG/15ML 25 MG/15ML t_bedti 25 MG/15ML me_as_n eeded} Oxybutynin Oxybutynin No 1{table BID Oxybutynin Chloride 5 Chloride 5 t} Chloride 5 MG MG MG Lovastatin Lovastatin No Lovastatin 20 MG 20 MG 20 MG Furosemide Furosemide No Furosemide 40 MG 40 MG 40 MG Hydrocortis Hydrocortis No 1{appli BID Hydrocorti one 2.5 % one 2.5 % cation_ sone 2.5 % to_affe cted_ar ea} Motrin PM Motrin PM No 2{table QD Motrin PM 200-38 MG 200-38 MG ts_at_b 200-38 MG edtime_ as_need ed} Fosfomycin Fosfomycin No Fosfomycin Tromethamin Tromethamin Tromethami e 3 GM e 3 GM ne 3 GM Indomethaci Indomethaci No 1{capsu Indomethac n 50 MG n 50 MG le_with in 50 MG _food_o r_milk} Metoprolol Metoprolol No 1{table BID Metoprolol Tartrate 25 Tartrate 25 t_with_ Tartrate MG MG food} 25 MG Benadryl Benadryl No 1{table TID Benadryl Allergy 25 Allergy 25 t_as_ne Allergy 25 MG MG eded} MG Aspir-81 81 Aspir-81 81 No 1{table QD Aspir-81 MG MG t} 81 MG Spiriva Spiriva No 1{capsu QD Spiriva HandiHaler HandiHaler le} HandiHaler 18 MCG 18 MCG 18 MCG Docusate Docusate No 1{capsu QD Docusate Sodium 100 Sodium 100 le_as_n Sodium 100 MG MG eeded} MG Xopenex HFA Xopenex HFA No 1{puff_ 6xD Xopenex 45 MCG/ACT 45 MCG/ACT as_need HFA 45 ed} MCG/ACT Motrin 400 Motrin 400 No Motrin 400 mg mg mg HYDROcodone HYDROcodone No 1{table QID HYDROcodon -Acetaminop -Acetaminop t_as_ne e-Acetamin hen 7.5-325 hen 7.5-325 eded} ophen MG MG 7.5-325 MG Fluocinonid Fluocinonid No 1{appli BID Fluocinoni e 0.05 % e 0.05 % cation_ de 0.05 % to_affe cted_ar ea} Nystatin Nystatin No 1{appli BID Nystatin [id number] cation_ [id number] UNIT/GM UNIT/GM to_affe UNIT/GM cted_ar ea} Potassium Potassium No QD Potassium Chloride 20 Chloride 20 Chloride MEQ MEQ 20 MEQ Furosemide Furosemide No 1{table BID Furosemide 40 MG 40 MG t} 40 MG Docusate Docusate No 1{capsu QD Docusate Sodium 100 Sodium 100 le_as_n Sodium 100 MG MG eeded} MG Lovastatin Lovastatin No QD Lovastatin 20 MG 20 MG 20 MG Cefdinir Cefdinir No 1{capsu BID Cefdinir 300 MG 300 MG le} 300 MG Oxybutynin Oxybutynin No Oxybutynin Chloride 5 Chloride 5 Chloride 5 MG MG MG Doxycycline Doxycycline No 1{capsu QD Doxycyclin Monohydrate Monohydrate le} e 100 MG 100 MG Monohydrat e 100 MG Sennosides Sennosides No 15{ml_a QD Sennosides 25 MG/15ML 25 MG/15ML t_bedti 25 MG/15ML me_as_n eeded} Gabapentin Gabapentin No 1{capsu Gabapentin 300 MG 300 MG le} 300 MG Benzonatate Benzonatate No Benzonatat 100 MG 100 MG e 100 MG Furosemide Furosemide No Furosemide 40 MG 40 MG 40 MG Hydrocortis Hydrocortis No 1{appli BID Hydrocorti one 2.5 % one 2.5 % cation_ sone 2.5 % to_affe cted_ar ea} Metoprolol Metoprolol No 1{table BID Metoprolol Tartrate 25 Tartrate 25 t_with_ Tartrate MG MG food} 25 MG Fosfomycin Fosfomycin No Fosfomycin Tromethamin Tromethamin Tromethami e 3 GM e 3 GM ne 3 GM Indomethaci Indomethaci No 1{capsu Indomethac n 50 MG n 50 MG le_with in 50 MG _food_o r_milk} Lovastatin Lovastatin No Lovastatin 20 MG 20 MG 20 MG Benadryl Benadryl No 1{table TID Benadryl Allergy 25 Allergy 25 t_as_ne Allergy 25 MG MG eded} MG Aspir-81 81 Aspir-81 81 No 1{table QD Aspir-81 MG MG t} 81 MG Spiriva Spiriva No 1{capsu QD Spiriva HandiHaler HandiHaler le} HandiHaler 18 MCG 18 MCG 18 MCG Motrin PM Motrin PM No 2{table QD Motrin PM 200-38 MG 200-38 MG ts_at_b 200-38 MG edtime_ as_need ed} Xopenex HFA Xopenex HFA No 1{puff_ 6xD Xopenex 45 MCG/ACT 45 MCG/ACT as_need HFA 45 ed} MCG/ACT Motrin 400 Motrin 400 No Motrin 400 mg mg mg HYDROcodone HYDROcodone No 1{table QID HYDROcodon -Acetaminop -Acetaminop t_as_ne e-Acetamin hen 7.5-325 hen 7.5-325 eded} ophen MG MG 7.5-325 MG Fluocinonid Fluocinonid No 1{appli BID Fluocinoni e 0.05 % e 0.05 % cation_ de 0.05 % to_affe cted_ar ea} Nystatin Nystatin No 1{appli BID Nystatin 353354 [id number] cation_ 810586 UNIT/GM UNIT/GM to_affe UNIT/GM cted_ar ea} Benzonatate Benzonatate No Benzonatat 100 MG 100 MG e 100 MG Doxycycline Doxycycline No 1{capsu QD Doxycyclin Monohydrate Monohydrate le} e 100 MG 100 MG Monohydrat e 100 MG Docusate Docusate No 1{capsu QD Docusate Sodium 100 Sodium 100 le_as_n Sodium 100 MG MG eeded} MG Cefdinir Cefdinir No 1{capsu BID Cefdinir 300 MG 300 MG le} 300 MG Aspir-81 81 Aspir-81 81 No 1{table QD Aspir-81 MG MG t} 81 MG Spiriva Spiriva No 1{capsu QD Spiriva HandiHaler HandiHaler le} HandiHaler 18 MCG 18 MCG 18 MCG Motrin PM Motrin PM No 2{table QD Motrin PM 200-38 MG 200-38 MG ts_at_b 200-38 MG edtime_ as_need ed} Furosemide Furosemide No Furosemide 40 MG 40 MG 40 MG Benadryl Benadryl No 1{table TID Benadryl Allergy 25 Allergy 25 t_as_ne Allergy 25 MG MG eded} MG Xopenex HFA Xopenex HFA No 1{puff_ 6xD Xopenex 45 MCG/ACT 45 MCG/ACT as_need HFA 45 ed} MCG/ACT Nystatin Nystatin No 1{appli BID Nystatin 313434 [id number] cation_ 963424 UNIT/GM UNIT/GM to_affe UNIT/GM cted_ar ea} Furosemide Furosemide No 1{table BID Furosemide 40 MG 40 MG t} 40 MG Sennosides Sennosides No 15{ml_a QD Sennosides 25 MG/15ML 25 MG/15ML t_bedti 25 MG/15ML me_as_n eeded} Metoprolol Metoprolol No 1{table BID Metoprolol Tartrate 25 Tartrate 25 t_with_ Tartrate MG MG food} 25 MG Oxybutynin Oxybutynin No 1{table BID Oxybutynin Chloride 5 Chloride 5 t} Chloride 5 MG MG MG Gabapentin Gabapentin No 1{capsu Gabapentin 300 MG 300 MG le} 300 MG Oxybutynin Oxybutynin No Oxybutynin Chloride 5 Chloride 5 Chloride 5 MG MG MG Lovastatin Lovastatin No Lovastatin 20 MG 20 MG 20 MG Lovastatin Lovastatin No QD Lovastatin 20 MG 20 MG 20 MG Fosfomycin Fosfomycin No Fosfomycin Tromethamin Tromethamin Tromethami e 3 GM e 3 GM ne 3 GM Motrin 400 Motrin 400 No Motrin 400 mg mg mg Potassium Potassium No QD Potassium Chloride 20 Chloride 20 Chloride MEQ MEQ 20 MEQ Indomethaci Indomethaci No 1{capsu Indomethac n 50 MG n 50 MG le_with in 50 MG _food_o r_milk} Fluocinonid Fluocinonid No 1{appli BID Fluocinoni e 0.05 % e 0.05 % cation_ de 0.05 % to_affe cted_ar ea} Hydrocortis Hydrocortis No 1{appli BID Hydrocorti one 2.5 % one 2.5 % cation_ sone 2.5 % to_affe cted_ar ea} HYDROcodone HYDROcodone No 1{table QID HYDROcodon -Acetaminop -Acetaminop t_as_ne e-Acetamin hen 7.5-325 hen 7.5-325 eded} ophen MG MG 7.5-325 MG Benzonatate Benzonatate No Benzonatat 100 MG 100 MG e 100 MG Cefdinir Cefdinir No 1{capsu BID Cefdinir 300 MG 300 MG le} 300 MG Docusate Docusate No 1{capsu QD Docusate Sodium 100 Sodium 100 le_as_n Sodium 100 MG MG eeded} MG Lovastatin Lovastatin No Lovastatin 20 MG 20 MG 20 MG Furosemide Furosemide No Furosemide 40 MG 40 MG 40 MG Motrin PM Motrin PM No 2{table QD Motrin PM 200-38 MG 200-38 MG ts_at_b 200-38 MG edtime_ as_need ed} Doxycycline Doxycycline No 1{capsu QD Doxycyclin Monohydrate Monohydrate le} e 100 MG 100 MG Monohydrat e 100 MG Xopenex HFA Xopenex HFA No 1{puff_ 6xD Xopenex 45 MCG/ACT 45 MCG/ACT as_need HFA 45 ed} MCG/ACT Aspir-81 81 Aspir-81 81 No 1{table QD Aspir-81 MG MG t} 81 MG Spiriva Spiriva No 1{capsu QD Spiriva HandiHaler HandiHaler le} HandiHaler 18 MCG 18 MCG 18 MCG Gabapentin Gabapentin No 1{capsu Gabapentin 300 MG 300 MG le} 300 MG Oxybutynin Oxybutynin No 1{table BID Oxybutynin Chloride 5 Chloride 5 t} Chloride 5 MG MG MG Lovastatin Lovastatin No QD Lovastatin 20 MG 20 MG 20 MG Oxybutynin Oxybutynin No Oxybutynin Chloride 5 Chloride 5 Chloride 5 MG MG MG Furosemide Furosemide No 1{table BID Furosemide 40 MG 40 MG t} 40 MG Benadryl Benadryl No 1{table TID Benadryl Allergy 25 Allergy 25 t_as_ne Allergy 25 MG MG eded} MG Metoprolol Metoprolol No 1{table BID Metoprolol Tartrate 25 Tartrate 25 t_with_ Tartrate MG MG food} 25 MG Motrin 400 Motrin 400 No Motrin 400 mg mg mg Fosfomycin Fosfomycin No Fosfomycin Tromethamin Tromethamin Tromethami e 3 GM e 3 GM ne 3 GM Nystatin Nystatin No 1{appli BID Nystatin 897568 [id number] cation_ 490291 UNIT/GM UNIT/GM to_affe UNIT/GM cted_ar ea} Sennosides Sennosides No 15{ml_a QD Sennosides 25 MG/15ML 25 MG/15ML t_bedti 25 MG/15ML me_as_n eeded} Indomethaci Indomethaci No 1{capsu Indomethac n 50 MG n 50 MG le_with in 50 MG _food_o r_milk} Fluocinonid Fluocinonid No 1{appli BID Fluocinoni e 0.05 % e 0.05 % cation_ de 0.05 % to_affe cted_ar ea} Hydrocortis Hydrocortis No 1{appli BID Hydrocorti one 2.5 % one 2.5 % cation_ sone 2.5 % to_affe cted_ar ea} HYDROcodone HYDROcodone No 1{table QID HYDROcodon -Acetaminop -Acetaminop t_as_ne e-Acetamin hen 7.5-325 hen 7.5-325 eded} ophen MG MG 7.5-325 MG Benzonatate Benzonatate No Benzonatat 100 MG 100 MG e 100 MG Cefdinir Cefdinir No 1{capsu BID Cefdinir 300 MG 300 MG le} 300 MG Docusate Docusate No 1{capsu QD Docusate Sodium 100 Sodium 100 le_as_n Sodium 100 MG MG eeded} MG Lovastatin Lovastatin No Lovastatin 20 MG 20 MG 20 MG Furosemide Furosemide No Furosemide 40 MG 40 MG 40 MG Motrin PM Motrin PM No 2{table QD Motrin PM 200-38 MG 200-38 MG ts_at_b 200-38 MG edtime_ as_need ed} Doxycycline Doxycycline No 1{capsu QD Doxycyclin Monohydrate Monohydrate le} e 100 MG 100 MG Monohydrat e 100 MG Xopenex HFA Xopenex HFA No 1{puff_ 6xD Xopenex 45 MCG/ACT 45 MCG/ACT as_need HFA 45 ed} MCG/ACT Aspir-81 81 Aspir-81 81 No 1{table QD Aspir-81 MG MG t} 81 MG Spiriva Spiriva No 1{capsu QD Spiriva HandiHaler HandiHaler le} HandiHaler 18 MCG 18 MCG 18 MCG Gabapentin Gabapentin No 1{capsu Gabapentin 300 MG 300 MG le} 300 MG Oxybutynin Oxybutynin No 1{table BID Oxybutynin Chloride 5 Chloride 5 t} Chloride 5 MG MG MG Lovastatin Lovastatin No QD Lovastatin 20 MG 20 MG 20 MG Oxybutynin Oxybutynin No Oxybutynin Chloride 5 Chloride 5 Chloride 5 MG MG MG Furosemide Furosemide No 1{table BID Furosemide 40 MG 40 MG t} 40 MG Benadryl Benadryl No 1{table TID Benadryl Allergy 25 Allergy 25 t_as_ne Allergy 25 MG MG eded} MG Metoprolol Metoprolol No 1{table BID Metoprolol Tartrate 25 Tartrate 25 t_with_ Tartrate MG MG food} 25 MG Motrin 400 Motrin 400 No Motrin 400 mg mg mg Fosfomycin Fosfomycin No Fosfomycin Tromethamin Tromethamin Tromethami e 3 GM e 3 GM ne 3 GM Nystatin Nystatin No 1{appli BID Nystatin 371039 799585 cation_ 242825 UNIT/GM UNIT/GM to_affe UNIT/GM cted_ar ea} Sennosides Sennosides No 15{ml_a QD Sennosides 25 MG/15ML 25 MG/15ML t_bedti 25 MG/15ML me_as_n eeded} Indomethaci Indomethaci No 1{capsu Indomethac n 50 MG n 50 MG le_with in 50 MG _food_o r_milk} Fluocinonid Fluocinonid No 1{appli BID Fluocinoni e 0.05 % e 0.05 % cation_ de 0.05 % to_affe cted_ar ea} Hydrocortis Hydrocortis No 1{appli BID Hydrocorti one 2.5 % one 2.5 % cation_ sone 2.5 % to_affe cted_ar ea} HYDROcodone HYDROcodone No 1{table QID HYDROcodon -Acetaminop -Acetaminop t_as_ne e-Acetamin hen 7.5-325 hen 7.5-325 eded} ophen MG MG 7.5-325 MG Benzonatate Benzonatate No Benzonatat 100 MG 100 MG e 100 MG Cefdinir Cefdinir No 1{capsu BID Cefdinir 300 MG 300 MG le} 300 MG Docusate Docusate No 1{capsu QD Docusate Sodium 100 Sodium 100 le_as_n Sodium 100 MG MG eeded} MG Lovastatin Lovastatin No Lovastatin 20 MG 20 MG 20 MG Furosemide Furosemide No Furosemide 40 MG 40 MG 40 MG Motrin PM Motrin PM No 2{table QD Motrin PM 200-38 MG 200-38 MG ts_at_b 200-38 MG edtime_ as_need ed} Doxycycline Doxycycline No 1{capsu QD Doxycyclin Monohydrate Monohydrate le} e 100 MG 100 MG Monohydrat e 100 MG Xopenex HFA Xopenex HFA No 1{puff_ 6xD Xopenex 45 MCG/ACT 45 MCG/ACT as_need HFA 45 ed} MCG/ACT Aspir-81 81 Aspir-81 81 No 1{table QD Aspir-81 MG MG t} 81 MG Spiriva Spiriva No 1{capsu QD Spiriva HandiHaler HandiHaler le} HandiHaler 18 MCG 18 MCG 18 MCG Gabapentin Gabapentin No 1{capsu Gabapentin 300 MG 300 MG le} 300 MG Oxybutynin Oxybutynin No 1{table BID Oxybutynin Chloride 5 Chloride 5 t} Chloride 5 MG MG MG Lovastatin Lovastatin No QD Lovastatin 20 MG 20 MG 20 MG Vital Signs Vital Name Observation Time Observation Value Comments Source Systolic blood 2021-10-11 18:44:00 106 mm[Hg] Univer sity [facility] Diastolic blood 2021-10-11 18:44:00 66 mm[Hg] Unive rsity [facility] Heart rate 2021-10-11 18:44:00 62 /min [facility] Body temperature 2021-10-11 18:44:[address] [facility] rate 2021-10-11 18:44:00 16 /min [facility] Body height 2021-10-11 18:44:00 162.6 cm [facility] Body weight 2021-10-11 18:44:00 130.636 kg [facility] BMI 2021-10-11 18:44:00 49.44 kg/m2 [facility] Procedures Procedure Date / Time Performing Clinician Source Performed AUTHORIZATION FOR 2021-11-26 05:01:00 Doctor Unassigned, No [facility] EXTERNAL PROVIDER 2021-09-19 05:01:00 [facility] Name [facility] Encounters Start End Encounter Admission Attending Care Care Encounter Source Date/Time Date/Time Type Type Clinicians Facility Department ID 2022-02-04 Outpatient Gutierrez, Na [facility] [id number] 2 Common 13:09:00 [facility] 2021-09-12 Outpatient Gutierrez, Na STLMLC [facility] [id number] 2 Common 10:05:00 [facility] 2021-07-13 Outpatient Gutierrez, Na STLMLC [facility] [id number] Common 12:02:00 [facility] 2021-07-12 Outpatient Gutierrez, Na STLMLC STLC [id number] 2 Common 13:49:00 [facility] 2021-06-11 Outpatient Gutierrez, Na STLMLC [facility] [id number] Common 08:32:00 [facility] 2021-06-05 Outpatient Gutierrez, Na STLMLC [facility] [id number] 2 Common 11:00:01 [facility] 2021-05-31 Outpatient Gutierrez, Na STLMLC ST[facility]C [id number] 2 Common 09:00:01 [facility] 2021-05-14 Outpatient Gutierrez, Na STLMLC [facility] [id number] 2 Common 09:20:01 [facility] 2021-04-26 Outpatient Gutierrez, Na STLMLC ST[facility]C [id number] 2 Common 15:13:00 [facility] 2021-04-04 Outpatient Gutierrez, Na STLMLC [facility] [id number] 2 Common 13:37:41 [id number] [facility] 2021-04-04 Outpatient Gutierrez, Na STLMLC ST[facility] [id number] 2 Common 13:27:35 [id number] [facility] 2021-04-04 Outpatient Gutierrez, Na STLMLC ST[facility]C [id number] 2 Common 13:10:57 [id number] [facility] 2021-04-04 Outpatient Gutierrez, Na STLMLC ST[facility]C [id number] 2 Common 12:33:38 [id number] [facility] 2021-04-04 Outpatient Gutierrez, Na STLMLC ST[facility] [id number] 2 Common 12:33:09 [id number] [facility] 2021-04-04 Outpatient Gutierrez, Na STLMLC ST[facility]C [id number] 2 Common 11:19:52 [id number] [facility] 2021-04-04 Outpatient Gutierrez, Na STLMLC STLMLC [id number] 2 Common 11:19:18 [facility] 2022-02-12 2022-02-12 Telephone GARRICK Avery [id number] Univers 00:00:00 00:00:00 [facility] HEALTH [id number] i ty of [place] [facility] [id number] [place] as [phone] [facility] [address] 2021-12-25 2021-12-[address] [facility] [id number] [facility] 11:30:00 11:30:00 LUIS CARLOS larson o f [facility] 2021-12-18 2021-12-18 Telephone Gena, [facility] [id number] Univers 00:00:00 00:00:00 [facility] HEALTH [id number] i ty [place] [facility] [id number] [place] [phone] [address] 2021-11-26 2021-11-26 Orders Doctor MARIJA 1.2.840.114 [id number] Univers 00:00:00 00:00:00 Only Unassigned, ELENI [id number] ity of [place] [facility] 4.2.7.2.686 [place] [phone] [place] [address] [address] 2021-10-17 2021-10-17 [facility] [id number] Co mmon 00:00:00 00:00:00 VISIT [facility] PT - CHI LEVEL 4 [facility] 2021-10-16 2021-10-16 (TEL) [facility] [id number] Co mmon 00:00:00 00:00:00 [facility] 2021-10-15 2021-10-15 Telephone Gena, [facility] [id number] Univers 00:00:00 00:00:00 [facility] HEALTH [id number] i ty of [place] [facility] [id number] [place] [phone] [facility] [address] 2021-10-12 2021-10-12 Telephone Merle, [facility] [id number] Univers 00:00:00 00:00:00 [facility] HEALTH [id number] i ty of [place] [facility] [id number] [place] [phone] [facility] [address] 2021-10-11 2021-10-11 Office GARRICK Avery 1.2.840.114 [id number] Univers 13:15:00 13:30:00 Visit Zach [facility] [id number] i ty of [facility] 4.2.7.2.686 [place] [phone] [facility] [address] 2021-10-11 2021-10-11 Outpatient R [facility] [id number] Univers 13:15:00 13:15:00 [facility] 2021-10-11 2021-10-11 [facility]patient [facility] [id number] Univers 13:15:00 13:15:00 [facility] 2021-09-19 2021-09-19 Orders Doctor MARIJA 1.2.840.114 [id number] Univers 00:00:00 00:00:00 Only Unassigned, ELENI 350.1.13.10 ity of [place] [facility] [id number] [place] [phone] [facility] [address] 2021-09-19 2021-09-[address] [facility] [id number] Univers 00:00:00 00:00:00 Crystal BUTLER [id number] i [place] [phone] Mt dical [facility] 296 [facility] 2021-09-13 2021-09-13 (TEL) [facility] [id number] Co mmon 00:00:00 00:00:00 [facility] 2021-08-27 2021-09-06 Inpatient U [facility] [id number] Univers 22:49:00 20:02:00 EVI ity [facility] 2021-08-27 2021-09-06 [facility] Zahcary Loyd [id number] Univers 22:49:00 20:02:00 Encounter Janae Hammond 350.1 .13.10 ity of [facility] 4.2.7.2.6 [address] [place] [phone] [facility] [address] 2021-09-03 2021-09-03 Telephone Manish NEJEANA 1.2.840.114 [id number] [facility] 00:00:00 00:00:00 Janae MULTISPEC 350.1.13.10 ity of [facility] [id number] [facility] [phone] [facility] AND MEHTA [address] [facility] 2021-08-10 2021-08-10 (TEL) STLMLC STLMLC [id number] Co mmon 00:00:00 00:00:00 [facility] 2021-08-09 2021-08-09 OFFICE STLMLC STLMLC [id number] Co mmon 00:00:00 00:00:00 VISIT [facility] PT - CHI LEVEL [address] [place] [address] 2021-08-09 2021-08-09 (TEL) STLMLC STLMLC [id number] Co mmon 00:00:00 00:00:00 [facility] 2021-07-19 2021-07-19 (TEL) STLMLC STLMLC [id number] Co mmon 00:00:00 00:00:00 [facility] 2021-07-13 2021-07-13 OFFICE STLMLC STLMLC [id number] Co mmon 00:00:00 00:00:00 VISIT [facility] PT - CHI LEVEL [address] [place] [address] 2021-07-12 2021-07-12 (TEL) STLMLC STL[facility]C [id number] Co mmon 00:00:00 00:00:00 [facility] 2021-06-28 2021-06-28 (TEL) STLMLC STLMLC [id number] Co mmon 00:00:00 00:00:00 [facility] 2021-06-13 2021-06-13 OFFICE STLMLC STLMLC [id number] Co mmon 00:00:00 00:00:00 VISIT [facility] PT - CHI LEVEL 4 [facility] 2021-06-12 2021-06-12 (TEL) STLMLC STLMLC [id number] Co mmon 00:00:00 00:00:00 [facility] 2021-06-04 2021-06-04 (TEL) STLMLC STLMLC [id number] Co mmon 00:00:00 00:00:00 [facility] 2021-05-28 2021-05-28 (TEL) STLMLC STLMLC [id number] Co mmon 00:00:00 00:00:00 [facility] 2021-05-14 2021-05-14 (TEL) STLMLC STLMLC [id number] Co mmon 00:00:00 00:00:00 [facility] 2021-04-26 2021-04-26 OFFICE STLMLC STLMLC [id number] Co mmon 00:00:00 00:00:00 VISIT [facility] 4 [facility] 2021-04-25 2021-04-25 (TEL) STLMLC STLMLC [id number] Co mmon 00:00:00 00:00:00 [facility] 2021-04-12 2021-04-12 (TEL) STLMLC STLMLC [id number] Co mmon 00:00:00 00:00:00 [facility] 2021-03-30 2021-03-30 (TEL) STLMLC STLMLC [id number] Co mmon 00:00:00 00:00:00 [facility] 2021-02-27 2021-02-27 (TEL) STLMLC STLMLC [id number] Co mmon 00:00:00 00:00:00 [facility] 2021-01-01 2021-01-01 (TEL) STLMLC STLMLC [id number] Co mmon 00:00:00 00:00:00 [facility] 2020-12-19 2020-12-19 (TEL) STLMLC STLMLC [id number] Co mmon 00:00:00 00:00:00 [facility] 2020-10-26 2020-10-26 (TEL) STLMLC STLMLC [id number] Co mmon 00:00:00 00:00:00 [facility] 2020-10-26 2020-10-26 (TEL) STLMLC STLMLC [id number] Co mmon 00:00:00 00:00:00 [facility] 2020-10-19 2020-10-19 (TEL) STLMLC STLMLC [id number] Co mmon 00:00:00 00:00:00 [facility] 2020-10-11 2020-10-11 Outpatient STLMLC STLMLC [id number] Common 00:00:00 00:00:00 [facility] 2020-09-27 2020-09-27 Outpatient STLMLC STL[facility]C [id number] Common 00:00:00 00:00:00 [facility] 2020-09-27 2020-09-27 Outpatient STLMLC STL[facility]C [id number] Common 00:00:00 00:00:00 [facility] 2020-09-22 2020-09-22 Outpatient STLMLC STL[facility]C [id number] Common 00:00:00 00:00:00 [facility] 2020-08-15 2020-08-15 Outpatient STLMLC STLMLC [id number] Common 00:00:00 00:00:00 [facility] 2020-07-21 2020-07-21 Outpatient STLMLC STLMLC [id number] Common 00:00:00 00:00:00 [facility] 2020-07-03 2020-07-03 Outpatient STLMLC STLMLC [id number] Common 00:00:00 00:00:00 [facility] 2020-06-30 2020-06-30 Outpatient STLMLC STL[facility]C [id number] Common 00:00:00 00:00:00 [facility] 2020-06-30 2020-06-30 Outpatient STLMLC ST[facility]C [id number] Common 00:00:00 00:00:00 [facility] 2020-06-27 2020-06-27 Outpatient STLMLC STLMLC [id number] Common 00:00:00 00:00:00 [facility] 2020-06-07 2020-06-07 Outpatient STLMLC STL[facility]C [id number] Common 00:00:00 00:00:00 [facility] 2020-05-29 2020-05-29 Outpatient STLMLC STL[facility]C [id number] Common 00:00:00 00:00:00 [facility] 2020-05-23 2020-05-23 Outpatient STLMLC STL[facility] [id number] Common 00:00:00 00:00:00 [facility] 2020-05-11 2020-05-11 Outpatient STLMLC STL[facility]C [id number] Common 00:00:00 00:00:00 [facility] 2020-05-07 2020-05-07 Outpatient STLMLC STLMLC [id number] Common 00:00:00 00:00:00 [facility] 2020-05-04 2020-05-04 Outpatient STLMLC STLMLC [id number] Common 00:00:00 00:00:00 [facility] 2020-04-19 2020-04-19 Outpatient STLMLC STLMLC [id number] Common 00:00:00 00:00:00 [facility] 2020-04-04 2020-04-04 Outpatient STLMLC STLMLC [id number] Common 00:00:00 00:00:00 [facility] 2020-02-04 2020-02-04 Outpatient STLMLC STLMLC [id number] Common 00:00:00 00:00:00 [facility] 2020-02-01 2020-02-01 Outpatient STLMLC STL[facility]C [id number] Common 00:00:00 00:00:00 [facility] 2020-01-05 2020-01-05 Outpatient STLMLC STL[facility]C [id number] Common 00:00:00 00:00:00 [facility] 2019-12-20 2019-12-20 Outpatient STLMLC STL[facility]C [id number] Common 00:00:00 00:00:00 [facility] 2019-12-19 2019-12-19 Outpatient STLMLC STL[facility]C [id number] Common 00:00:00 00:00:00 [facility] 2019-12-17 2019-12-17 Outpatient STLMLC STL[facility]C [id number] Common 00:00:00 00:00:00 [facility] 2019-11-03 2019-11-03 [facility] [id number] Common 10:19:00 10:19:[address] [facility] 2019-10-06 2019-10-06 [facility] [id number] Common 16:47:00 16:47:[address] [facility] 2019-09-30 2019-09-30 [facility] [id number] Common 14:56:00 14:56:[address] [facility] 2019-09-14 2019-09-14 [facility] [id number] Common 13:55:00 13:55:[address] [facility] 2019-08-12 2019-08-12 [facility] [id number] Common 11:39:00 11:39:[address] [facility] 2019-07-09 2019-07-09 [facility] [id number] Common 11:26:00 11:26:[address] [facility] 2019-07-06 2019-07-06 [facility] [id number] Common 14:00:00 14:00:[address] [facility] 2019-06-11 2019-06-11 [facility] [id number] Common 10:29:00 10:29:[address] [facility] 2019-06-08 2019-06-08 [facility] [id number] Common 10:57:00 10:57:[address] [facility] 2019-05-24 2019-05-24 [facility] [id number] Common 14:44:00 14:44:[address] [facility] 2019-04-12 2019-04-12 [facility] [id number] Common 10:58:00 10:58:[address] [facility] 2019-04-08 2019-04-08 [facility] [id number] Common 17:13:00 17:13:[address] [facility] 2019-03-26 2019-03-26 [facility] [id number] Common 07:58:00 07:58:[address] [facility] 2019-02-01 2019-02-01 [facility] [id number] Common 10:49:00 10:49:[address] [facility] 2019-01-21 2019-01-21 [facility] [id number] Common 12:09:00 12:09:[address] [facility] 2018-12-31 2018-12-31 [facility] [id number] Common 13:40:00 13:40:[address] [facility] 2018-12-24 2018-12-24 [facility] [id number] Common 16:51:00 16:51:[address] [facility] 2018-12-22 2018-12-22 [facility] [id number] Common 10:09:00 10:09:[address] [facility] 2018-12-16 2018-12-16 [facility] [id number] Common 13:32:00 13:32:[address] [facility] 2018-12-09 2018-12-09 [facility] [id number] Common 15:07:00 15:07:[address] [facility] 2018-12-08 2018-12-08 [facility] [id number] Common 09:21:00 09:21:[address] [facility] 2018-12-07 2018-12-07 [facility] [id number] Common 15:10:00 15:10:[address] [facility] 2018-10-29 2018-10-29 [facility] [id number] Common 11:00:00 11:00:[address] [facility] 2018-10-20 2018-10-20 [facility] [id number] Common 13:23:00 13:23:[address] [facility] 2018-10-05 2018-10-05 [facility] [id number] Common 16:27:00 16:27:[address] [facility] 2018-09-25 2018-09-25 [facility] [id number] Common 16:15:00 16:15:[address] [facility] 2018-09-23 2018-09-23 [facility] [id number] Common 15:54:00 15:54:[address] [facility] 2018-08-27 2018-08-27 [facility] [id number] Common 16:00:00 16:00:[address] [facility] 2018-08-25 2018-08-25 [facility] [id number] Common 15:20:00 15:20:[address] [facility] Results This patient has no known results.
[2022-09-18] MEDS ORDERED: FUROSEMIDE 40 MG/4 ML VIAL ONE (15:34)
[2022-09-18] MEDS ORDERED: MORPHINE 2 MG/ML SYR ONE ×2 (15:34→17:48)
--- NOTE | 2022-09-18 15:34 | RAD REPORT ---
EXAM DESCRIPTION: RAD - Chest Single View - 09/18/2022 3:21 pm CLINICAL HISTORY: DYSPNEA COMPARISON: Chest Single View dated 08/27/2021; Chest Single View dated 08/01/2021; Chest Single View dated 07/05/2021; Chest Single View dated 06/29/2021 FINDINGS: Lines: None. Lungs: No evidence of edema or pneumonia. Pleural: No significant pleural effusions or pneumothorax. Cardiac: The heart size is within normal limits. Mediastinum: Within normal limits. Bones: No acute fractures. Other: None IMPRESSION: No acute cardiopulmonary disease.
[2022-09-18 15:39] LABS: Absolute Lymphocytes (CBC) 0.9 K/uL (0.7-4.9); Hematocrit 35.7 % (36.0-45.0); MCV 84.5 fL (80-100); MPV 8.6 fL (7.6-11.3); RBC Red Blood Cell Count 4.22 M/uL (3.86-4.86)
[2022-09-18 15:42] LABS: Potassium 2.7 mEq/L (3.5-5.1); Troponin High Sensitivity 5.5 pg/mL (<58.9)
[2022-09-18] MEDS ORDERED: POTASSIUM CL SA 10 MEQ TAB PO ONE (16:22)
--- NOTE | 2022-09-18 16:23 | ER ---
Nurse's Notes [facility] Name: Jv Bryant Age: 67 yrs Sex: Female : 1955 Arrival Date: 09/18/2022 Time: 14:35 Bed 20 Private MD: Diagnosis: Lymphedema, anasarca, cellulitis Presentation: 09/18 14:35 Chief complaint: EMS states: Bilateral leg pain/swelling. Hx of lymphedema, legs oozing.[facility] 14:35 Method Of Arrival: EMS: [facility] 15:00 Coronavirus screen: Vaccine status: Patient reports being unvaccinated. nj 15:00 Ebola Screen: Patient denies travel to an Ebola-affected area in the 21 days before [facility] illness onset. Initial Sepsis Screen: Does the patient meet any 2 criteria? No. Patient's initial sepsis screen is negative. Does the patient have a suspected source of infection? No. Patient's initial sepsis screen is negative. Risk Assessment: Do you want to hurt yourself or someone else? Patient reports no desire to harm self or others. Onset of symptoms was September 11, 2022. 15:00 Acuity: SKYLER 3 nj Historical: - Allergies: 15:00 aloe vera; ar1 15:00 Augmentin; ar1 15:00 Dilaudid; [facility] 15:00 Fentanyl; ar1 15:00 FLU VACCINE; [facility] 15:00 Iodine; [facility] 15:00 Macrolide Antibiotics; ar1 15:00 meropenem; [facility] 15:00 pneumonia vaccine; ar1 15:00 Rocephin; [facility] 15:00 Stelazine; [facility] 15:00 Sulfa (Sulfonamide Antibiotics); [facility] 15:00 Vancomycin; [facility] 19:08 Betadine; [facility] - Home Meds: 19:08 lovastatin 20 mg Oral tablet 1 tab every day at bedtime [Active]; furosemide 40 mg oral nj1 tablet 1 tab 2 times per day [Active]; metoprolol tartrate 25 mg Oral tablet 1 tab 2 times per day [Active]; 19:13 oxybutynin chloride 5 mg Oral tablet 1 tab 2 times per day [Active]; benzonatate 100 mg ar1 oral capsule 1 cap 3 times per day [Active]; tramadol 100 mg Oral tablet 1 tab every 6 hours [Active]; Cipro 250 mg Oral tablet 1 tab nightly [Active]; indomethacin 50 mg Oral capsule 1 cap 3 times per day [Active]; - PMHx: 15:00 ADD/ADHD; Arthritis; Chronic pain; COPD; Fibromyalgia; frequent UTI'S; heart disease- nj1 unspecified; Hyperlipidemia; Hypertension; insomnia; lymphedema; PERIPHERAL NEUROPATHY; unspecified kidney failure; - Immunization history:: Client reports having NOT received the Covid vaccine. - Social history:: Smoking status: Patient reports the use of cigarette tobacco products, denies chronic smoking, but will smoke occasionally. Screenin:18 [facility] ED Fall Risk Assessment (Adult) History of falling in the last 3 months, nj1 including since admission No falls in past 3 months (0 pts) Confusion or Disorientation No (0 pts) Intoxicated or Sedated No (0 pts) Impaired Gait Yes (1 pt) Mobility Assist Device Used No (0 pt) Altered Elimination Yes (1 pt) Score/Fall Risk Level 0 - 2 = Low Risk Oriented to surroundings, Maintained a safe environment, Hourly rounding (assess needs \T\ fall precautionary measures) done. Abuse screen: Denies threats or abuse. Denies injuries from another. Nutritional screening: No deficits noted. Tuberculosis screening: No symptoms or risk factors identified. Assessment: 15:00 General: Appears in no apparent distress. uncomfortable, Behavior is calm, cooperative, nj1 crying. Pain: Complains of pain in right leg and left leg Pain currently is 10 out of 10 on a pain scale. 15:00 Neuro: Level of Consciousness is awake, alert, obeys commands, Oriented to person, nj1 place, time, situation. Cardiovascular: Patient's skin is warm and dry. Respiratory: Airway is patent Respiratory effort is even, unlabored. 15:00 : suprapubic catheter in place Pt states it was changed yesterday. nj1 16:17 Reassessment: Patient appears in no apparent distress at this time. Patient and/or nj1 family updated on plan of care and expected duration. Pain level reassessed. Patient is alert, oriented x 3, equal unlabored respirations, skin warm/dry/pink. 17:00 Reassessment: Patient appears in no apparent distress at this time. Patient and/or nj1 family updated on plan of care and expected duration. Pain level reassessed. Patient is alert/active/playful, equal unlabored respirations, skin warm/dry/pink. 19:45 Reassessment: Unsuccessful attempt to call report at this time. No answer. nj1 Vital Signs: 15:00 BP 126 / 52; Pulse 81; Resp 19; Pulse Ox 98% on R/A; Weight 158.76 kg (R); Height 5 ft. nj1 2 in. ; Pain 10/10; 16:17 BP 124 / 51; Pulse 70; Resp 19; Pulse Ox 94% on R/A; Pain 8/10; nj1 17:00 BP 120 / 60; Pulse 73; Resp 18; Pulse Ox 94% on R/A; Pain 7/10; nj1 17:45 Pain 10/10; nj1 18:28 Pain 7/10; iw 19:00 BP 102 / 54; Pulse 71; Resp 19; Pulse Ox 93% ; Pain 7/10; nj1 15:00 Body Mass Index 64.02 (158.76 kg, 157.48 cm) nj1 15:00 Pain Scale: Adult nj1 16:17 Pain Scale: Adult nj1 17:00 Pain Scale: Adult nj1 17:45 Pain Scale: Adult nj1 18:28 Pain Scale: Adult iw 19:00 Pain Scale: Adult nj1 ED Course: 14:48 Patient arrived in ED. ds4 14:52 Roxana Wallace MD is Attending Physician. sp3 14:57 Loni Morgan, ALO is Primary Nurse. nj1 15:00 Inserted saline lock: 22 gauge in left antecubital area, using aseptic technique. Blood nj1 collected. 15:00 Patient has correct armband on for positive identification. Bed in low position. Call [facility] light in reach. 15:00 Provided Education on: Fall precautions. nj1 15:17 Triage completed. nj1 15:17 Arm band placed on. nj1 15:23 XRAY Chest (1 view) In Process Unspecified. EDMS 16:23 Helena Lamb MD is Hospitalizing Provider. sp3 20:20 No provider procedures requiring assistance completed. Patient admitted, IV remains in nj1 place. Administered Medications: 15:50 Drug: morphine IVP or IV 2 mg Route: IVP; Infused Over: 4 mins; Site: left antecubital; nj1 16:17 Follow up: Response: No adverse reaction; Pain is decreased nj1 15:54 Drug: Furosemide IVP 40 mg Route: IVP; Site: left antecubital; nj1 16:16 Follow up: Response: No adverse reaction nj1 16:16 Drug: Potassium Chloride PO 40 mEq Route: PO; nj1 17:00 Drug: Clindamycin IVPB 600 mg Route: IVPB; Infused Over: 30 mins; Site: left nj1 antecubital; 17:30 Follow up: Response: No adverse reaction; IV Status: Completed infusion; IV Intake: [id number] 17:45 Drug: morphine IVP or IV 2 mg Route: IVP; Infused Over: 4 mins; Site: left antecubital; nj1 18:28 Follow up: Pain 7/10 Adult; Response: No adverse reaction; Pain is decreased Medication: 20:31 VIS not applicable for this client. nj1 Intake: 17:30 IV: 50ml; Total: 50ml. nj1 17:50 Suprapubic catheter nj1 Output: 17:50 Urine: 1750ml; Total: 1750ml. nj1 17:50 Suprapubic catheter nj1 Outcome: 16:23 Decision to Hospitalize by Provider. sp3 20:20 Admitted to Tele accompanied by tech, via stretcher, room 403, Report called to Nurse cali Cole 20:20 Condition: stable nj1 20:20 Instructed on the need for admit. 20:38 Patient left the ED. nj1 Signatures: Dispatcher [employer] Kylah Keller RN RN iw Ruy Gibbons ds4 Roxana Wallace MD MD sp3 Loni Morgan RN RN nj1
--- NOTE | 2022-09-18 16:24 | EDPHYS ---
Physician Documentation [facility] Name: Jv Bryant Age: 67 yrs Sex: Female : 1955 Arrival Date: 09/18/2022 Time: 14:35 Bed 20 Private MD: ED Physician Roxana Wallace HPI: 09/18 15:42 This 67 yrs old Female presents to ER via EMS with complaints of Lower extremity sp3 swelling. 15:44 67-year-old female with a history of chronic pain, COPD, fibromyalgia, bilateral sp3 lymphedema now presents to the ED with chief complaint 50+ pound weight gain, significantly increased bilateral lower extremity swelling leading to anasarca and difficulty breathing as well as left hip cellulitis as reported by her home care nurse. She denies any headache, fever, chest pain, upper back pain, new trauma, known sick contacts, travel or any other concerning findings on ROS at this time.. Historical: - Allergies: 15:00 aloe vera; nj1 15:00 Augmentin; nj1 15:00 Dilaudid; nj1 15:00 Fentanyl; nj1 15:00 FLU VACCINE; nj1 15:00 Iodine; nj1 15:00 Macrolide Antibiotics; nj1 15:00 meropenem; nj1 15:00 pneumonia vaccine; nj1 15:00 Rocephin; nj1 15:00 Stelazine; nj1 15:00 Sulfa (Sulfonamide Antibiotics); nj1 15:00 Vancomycin; nj1 19:08 Betadine; nj - Home Meds: 19:08 lovastatin 20 mg Oral tablet 1 tab every day at bedtime [Active]; furosemide 40 mg oral nj1 tablet 1 tab 2 times per day [Active]; metoprolol tartrate 25 mg Oral tablet 1 tab 2 times per day [Active]; 19:13 oxybutynin chloride 5 mg Oral tablet 1 tab 2 times per day [Active]; benzonatate 100 mg nj1 oral capsule 1 cap 3 times per day [Active]; tramadol 100 mg Oral tablet 1 tab every 6 hours [Active]; Cipro 250 mg Oral tablet 1 tab nightly [Active]; indomethacin 50 mg Oral capsule 1 cap 3 times per day [Active]; - PMHx: 15:00 ADD/ADHD; Arthritis; Chronic pain; COPD; Fibromyalgia; frequent UTI'S; heart disease- nj1 unspecified; Hyperlipidemia; Hypertension; insomnia; lymphedema; PERIPHERAL NEUROPATHY; unspecified kidney failure; - Immunization history:: Client reports having NOT received the Covid vaccine. - Social history:: Smoking status: Patient reports the use of cigarette tobacco products, denies chronic smoking, but will smoke occasionally. ROS: 15:45 Constitutional: Negative for fever, chills, and weight loss, Eyes: Negative for injury, sp3 pain, redness, and discharge, Neck: Negative for injury, pain, and swelling, Cardiovascular: Negative for chest pain, palpitations, and edema, Respiratory: Negative for shortness of breath, cough, wheezing, and pleuritic chest pain, Abdomen/GI: Negative for abdominal pain, nausea, vomiting, diarrhea, and constipation, Back: Negative for injury and pain, Psych: Negative for depression, anxiety, suicide ideation, homicidal ideation, and hallucinations, Allergy/Immunology: Negative for hives, rash, and allergies, Endocrine: Negative for neck swelling, polydipsia, polyuria, polyphagia, and marked weight changes. 15:45 All other systems are negative. Exam: 15:45 Constitutional: This is a well developed, well nourished patient who is awake, alert, sp3 and in no acute distress. Head/Face: Normocephalic, atraumatic. Eyes: Pupils equal round and reactive to light, extra-ocular motions intact. Lids and lashes normal. Conjunctiva and sclera are non-icteric and not injected. Cornea within normal limits. Periorbital areas with no swelling, redness, or edema. Chest/axilla: Normal chest wall appearance and motion. Nontender with no deformity. No lesions are appreciated. Cardiovascular: Regular rate and rhythm with a normal S1 and S2. No gallops, murmurs, or rubs. Normal PMI, no JVD. No pulse deficits. Respiratory: Lungs have equal breath sounds bilaterally, clear to auscultation and percussion. No rales, rhonchi or wheezes noted. No increased work of breathing, no retractions or nasal flaring. 15:45 Musculoskeletal/extremity: Bilateral lower extremity edema consistent with lymphedema noted. Edema is increased superiorly up to her thigh/pelvis level. Lower extremity distal from the knee down is wrapped. Patient has mild erythema on the left hip consistent with possible cellulitis.. 16:25 ECG was reviewed by the Attending Physician. EKG demonstrates normal sinus rhythm at 66 sp3 bpm with normal intervals, normal QRS, normal axis, nonspecific diffuse ST/T changes without evidence of acute ischemia in the setting of poor quality EKG secondary to movement. Vital Signs: 15:00 BP 126 / 52; Pulse 81; Resp 19; Pulse Ox 98% on R/A; Weight 158.76 kg (R); Height 5 ft. nj1 2 in. ; Pain 10/10; 16:17 BP 124 / 51; Pulse 70; Resp 19; Pulse Ox 94% on R/A; Pain 8/10; nj1 17:00 BP 120 / 60; Pulse 73; Resp 18; Pulse Ox 94% on R/A; Pain 7/10; nj1 17:45 Pain 10/10; nj1 18:28 Pain 7/10; iw 19:00 BP 102 / 54; Pulse 71; Resp 19; Pulse Ox 93% ; Pain 7/10; nj1 15:00 Body Mass Index 64.02 (158.76 kg, 157.48 cm) nj1 15:00 Pain Scale: Adult nj1 16:17 Pain Scale: Adult nj1 17:00 Pain Scale: Adult nj1 17:45 Pain Scale: Adult nj1 18:28 Pain Scale: Adult iw 19:00 Pain Scale: Adult nj1 MDM: 14:52 Patient medically screened. sp3 15:46 Data reviewed: vital signs, nurses notes, old medical records, lab test result(s), sp3 radiologic studies. ED course: 67-year-old female with bilateral anasarca, bilateral lymphedema and possible cellulitis. Given her significant weight gain, we will admit her to the hospital continue Lasix. She has a suprapubic catheter in place which is draining and replaced yesterday. We will add antibiotics to cover potential cellulitis as well. Mild pain medication as needed.. 09/18 14:54 Order name: Basic Metabolic Panel; Complete Time: 15:47 sp3 09/18 14:54 Order name: CBC with Diff; Complete Time: 15:47 sp3 09/18 14:54 Order name: NT PRO-BNP; Complete Time: 15:47 sp3 09/18 14:54 Order name: Troponin HS; Complete Time: 15:47 sp3 09/18 18:21 Order name: Magnesium EDMS 09/18 18:21 Order name: Phosphorus EDMS 09/18 18:21 Order name: T4 Free EDMS 09/18 18:21 Order name: Thyroid Stimulating Hormone EDMS 09/18 18:21 Order name: Urinalysis w/ reflexes EDMS 09/18 18:21 Order name: Basic Metabolic Panel EDMS 09/18 18:21 Order name: Basic Metabolic Panel EDMS 09/18 18:21 Order name: CBC with Automated Diff EDMS 09/18 18:21 Order name: CBC with Automated Diff EDMS 09/18 18:21 Order name: NT PRO-BNP EDMS 09/18 18:21 Order name: NT PRO-BNP EDMS 09/18 14:54 Order name: XRAY Chest (1 view); Complete Time: 15:47 sp3 09/18 18:18 Order name: Echo with Doppler EDMS 09/18 14:54 Order name: EKG; Complete Time: 14:54 sp3 09/18 18:21 Order name: Heart Healthy EDMS 09/18 14:54 Order name: Cardiac monitoring; Complete Time: 15:18 sp3 09/18 14:54 Order name: EKG - Nurse/Tech; Complete Time: 16:47 sp3 09/18 14:54 Order name: IV Saline Lock; Complete Time: 15:18 sp3 09/18 14:54 Order name: Labs collected and sent; Complete Time: 15:18 sp3 09/18 14:54 Order name: O2 Sat Monitoring; Complete Time: 15:18 sp3 Administered Medications: 15:50 Drug: morphine IVP or IV 2 mg Route: IVP; Infused Over: 4 mins; Site: left antecubital; nj1 16:17 Follow up: Response: No adverse reaction; Pain is decreased nj1 15:54 Drug: Furosemide IVP 40 mg Route: IVP; Site: left antecubital; nj1 16:16 Follow up: Response: No adverse reaction nj1 16:16 Drug: Potassium Chloride PO 40 mEq Route: PO; nj1 17:00 Drug: Clindamycin IVPB 600 mg Route: IVPB; Infused Over: 30 mins; Site: left nj1 antecubital; 17:30 Follow up: Response: No adverse reaction; IV Status: Completed infusion; IV Intake: [id number] 17:45 Drug: morphine IVP or IV 2 mg Route: IVP; Infused Over: 4 mins; Site: left antecubital; nj1 18:28 Follow up: Pain 7/10 Adult; Response: No adverse reaction; Pain is decreased iw Disposition Summary: 09/18/22 16:23 Hospitalization Ordered Hospitalization Status: Observation sp3 Provider: Helena Lamb3 Location: Telemetry/MedSur (observation) sp3 Condition: Stable sp3 Problem: an acute exacerbation sp3 Symptoms: have worsened sp3 Bed/Room Type: Standard sp3 Room Assignment: 403(09/18/22 18:50) Diagnosis - Lymphedema, anasarca, cellulitis sp3 Forms: - Medication Reconciliation Form sp3 - SBAR form sp3 Signatures: Dispatcher [employer] Nelia Rodríguez RN RN Roxana Wallace MD MD sp3 Loni Morgan RN RN nj1 Kylah Mcgregor RN iw Corrections: (The following items were deleted from the chart) 15:55 14:54 Pedroza ordered. sp3 nj 18:50 16:23 sp3 dw
[2022-09-18] MEDS ORDERED: CLINDAMYCIN 600MG/D5W 50 ML IV ONE (17:04)
[2022-09-18] MEDS ORDERED: ACETAMINOPHEN 325 MG TABLET PO PRN (18:14)
[2022-09-18] MEDS ORDERED: ONDANSETRON 4 MG/2 ML VIAL IV PRN (18:19)
--- NOTE | 2022-09-18 18:21 | P.HP ---
Certification for Inpatient Patient admitted to: Inpatient With expected LOS: >2 Midnights Patient will require the following post-hospital care: None Practitioner: I am a practitioner with admitting privileges, knowledge of patient current condition, hospital course, and medical plan of care. Services: Services provided to patient in accordance with Admission requirements found in Title 42 Section 412.3 of the Code of Federal Regulations Patient History Date of Service: 09/18/22 Reason for admission: BLE swelling and left hip pain\swelling and redness. History of Present Illness: Patient is a 67-year-old female with a past medical history significant for chronic pain syndrome, COPD, morbid obesity, fibromyalgia, bilateral lower extremity edema, CHF, hyperlipidemia presents with complaint of bilateral lower extremity swelling and left hip pain\swelling and redness. Patient reported that she has been having left hip pain and swelling for about 2 weeks. Patient rated pain as 10/10 in severity and described pain as sharp in quality. Patient reported that her home health noticed that she had redness in her left hip yesterday. Patient also reported that she has been having increased swelling in her bilateral lower extremities. Patient reported associated signs and symptoms of weight gain, diaphoresis, cough and shortness of breath. Patient denies any other signs and symptoms. Symptoms are aggravated or relieved by nothing. Patient decided to present to the hospital to the hospital due to worsening symptoms. Allergies amoxicillin [From Augmentin] Allergy (Severe, Verified 09/16/19 23:49) diarrhea, nausea, vomiting ceftriaxone [From Rocephin] Allergy (Severe, Verified 09/16/19 23:49) Itching/Hives/Rash fentanyl Allergy (Severe, Verified 09/16/19 23:49) Itching/Hives/Rash iodine Allergy (Severe, Verified 09/16/19 23:49) Unknown lincomycin [From Lincocin] Allergy (Severe, Verified 09/16/19 23:49) rashes,headaches pneumococcal vaccine [From Pneumovax 23] Allergy (Severe, Verified 09/16/19 23:49) sick more than a week sulfamethoxazole [From Bactrim] Allergy (Severe, Verified 09/16/19 23:49) Anaphylaxis trifluoperazine [From Stelazine] Allergy (Severe, Verified 09/16/19 23:49) itching and rashes vancomycin Allergy (Severe, Verified 09/16/19 23:49) renal failure soap [From Betadine] Allergy (Mild, Verified 09/16/19 23:49) Hives/Rash Sulfa (Sulfonamide Antibiotics) Allergy (Mild, Verified 09/16/19 23:49) Anaphylaxis aloe vera Allergy (Verified 09/16/19 23:49) Itching celery Allergy (Verified 09/16/19 23:49) Nausea/Vomiting Macrolide Antibiotics Allergy (Verified 09/16/19 23:49) Itching/Hives/Rash FLU VACCINE Allergy (Severe, Uncoded 09/16/19 23:49) sick for more than a week aloe vera Allergy (Uncoded 09/16/19 23:49) Unknown hall peppers Allergy (Uncoded 09/16/19 23:49) Nausea/Vomiting celery Allergy (Uncoded 09/16/19 23:49) Unknown FLU VAC Allergy (Uncoded 09/16/19 23:49) Unknown peppers Allergy (Uncoded 09/16/19 23:49) Unknown Home Medications: Aspirin [Adult Low Dose Aspirin EC] 81 mg PO DAILY 06/30/21 Benzonatate [Tessalon Perle*] 100 mg PO TID PRN 06/30/21 Cranberry Fruit Extract/Vit C [Azo Cranberry Softgel] 1 cap PO BID 06/30/21 Diphenhydramine HCl [Benadryl Allergy] 1 tab PO BEDTIME PRN PRN 06/30/21 Folic Acid 1 mg PO DAILY 06/30/21 Furosemide [Lasix] 40 mg PO BID 06/30/21 Gabapentin 300 mg PO TID PRN 06/30/21 Lactobacillus Acidophilus [Acidophilus Lactobacilli] 1 each PO BID 06/30/21 Lovastatin 20 mg PO BEDTIME 06/30/21 Metoprolol Tartrate 25 mg PO BID 06/30/21 Mometasone/Formoterol [Dulera 200 Mcg/5 Mcg Inhaler] 2 puff PO BID PRN 06/30/21 Nystatin Powder [Mycostatin (Powder)*] 1 gm TP DAILY PRN 06/30/21 oxyBUTYnin chloride [Oxybutynin Chloride] 5 mg PO BID 06/30/21 Hydrocodone 7.5/APAP 325 [[place] 7.5/325 mg] 1 tab PO Q8H PRN #10 tab 07/06/21 Rivaroxaban [Xarelto] 20 mg PO DAILY AT SUPPER 30 Days #30 tablet 07/06/21 - Past Medical/Surgical History Diabetic: No -: Lymphedema - bilateral leg -: Morbid obesity with Hx of Lap. Band -: Peripheral neuropathy -: Osteoarthritis -: mild COPD -: mild eczema -: Depression -: Sleep apnea -: CHF -: CRE -: hypertension -: frequent UTIs -: -: Lap band 2008 -: Tonsillectomy and adenoidectomy Psychosocial/ Personal History: Patient is and lives by herself. She has home health. - Family History Father -: Heart disease Mother -: Hypertension, Stroke Notes: erin deirdre syndrome - Social History Smoking Status: Current every day smoker Counseled patient to stop smoking for: less than 10 minutes Smoking therapy provided: Yes Patient receptive to therapy: No Alcohol use: No CD- Drugs: No Caffeine use: Yes Place of Residence: Home Review of Systems General: Sweats, Other (Weight gain) Eyes: Unremarkable ENT: Unremarkable Respiratory: Cough, Shortness of Breath Cardiovascular: Unremarkable Gastrointestinal: Unremarkable Genitourinary: Other (Suprapubic catheter at) Musculoskeletal: Other (BLE swelling\left hip pain\swelling ) Integumentary: Other (Left hip redness) Neurological: Unremarkable Lymphatics: Unremarkable Physical Examination - Physical Exam General: Alert, Oriented x3, Cooperative, Mild distress HEENT: Atraumatic, PERRLA, Mucous membr. moist/pink, EOMI, Sclerae nonicteric Neck: Supple, 2+ carotid pulse no bruit, No LAD, Without JVD or thyroid abnormality Respiratory: Diminished Cardiovascular: Regular rate/rhythm, Normal S1 S2, Edema Capillary refill: <2 Seconds Gastrointestinal: Normal bowel sounds, Soft and benign, No tenderness Musculoskeletal: Swelling, Erythema Integumentary: No rashes, Tenderness/swelling, Erythema Neurological: Normal speech, Normal tone, Normal affect Lymphatics: No axilla or inguinal lymphadenopathy - Studies Laboratory Data (last 24 hrs) 09/18/22 15:00: WBC 10.40, Hgb 11.5 L, Hct 35.7 L, Plt Count 281 09/18/22 15:00: Sodium 138, Potassium 2.7 L, BUN 11, Creatinine 1.01, Glucose 122 H Assessment and Plan - Plan --Left hip cellulitis. Blood cultures pending. Patient placed on antibiotics. Infectious disease MD consulted. Will await further recommendations. --Acute on chronic diastolic CHF exacerbation. BNP--376 .Echocardiogram done on 02/05/2021 indicates moderate diastolic dysfunction. Repeat echocardiogram pending to assess LV\valvular function and wall motion.. Continue diuresis with Lasix. Daily weight and strict I/O. --Anasarca. Likely secondary to CHF exacerbation and worsening lymphedema. Continue current treatment regimen. Patient has bilateral Frankie wraps. Continue supportive care. --Left hip pain\chronic back pain\fibromyalgia\osteoarthritis. We will manage pain with current pain medication regimen. --Super obesity. BMI greater than 50. Patient counseled on weight reduction, diet and excise therapy. -- Hypokalemia. Replete as needed. --Anemia of chronic disease. H&H stable. We will continue to monitor hemoglobin and transfuse if less than 7.0. --CKD 2. Stable. We will continue to monitor renal function. --Hyperlipidemia. Continue statin. --OAB. Continue oxybutynin. --COPD. Stable. Continue home medications. --Hyperlipidemia. Continue home medication. --Peripheral neuropathy. Continue gabapentin. -- Nicotine dependence. Patient counseled on tobacco cessation. Refuses nicotine patch. --DVT prophylaxis with SCDs. Patient refused chemical prophylaxis. Discharge Plan: Home Plan to discharge in: Greater than 2 days - Advance Directives Does patient have a Living Will: No Does patient have a Durable POA for Healthcare: No - Code Status/Comfort Care Code Status Assessed: Yes Physician Review: Patient Assessed, Agree with Above Assessment and Plan Critical Care: No
[2022-09-18 19:38] LABS: Magnesium 2.1 mg/dL (1.6-2.4); Phosphorus 2.8 mg/dL (2.5-4.9); Thyroid Stimulating Hormone 1.76 uIU/mL (0.358-3.740)
[2022-09-18] MEDS: MORPHINE 4 MG/ML SYR IV PRN (21:19)
[2022-09-18] MEDS ORDERED: FUROSEMIDE 40 MG/4 ML VIAL IV ONE (21:52)
[2022-09-18] MEDS ORDERED: ALBUMIN HUMAN 25% 100 ML IV ONE (21:52)
[2022-09-18] MEDS ORDERED: dexAMETHasone 4 MG/ML VIAL IV ONE (22:00)
[2022-09-19] MEDS: CLINDAMYCIN 900MG/D5W 900 MG/50 ML IVPB IV SCH ×4 (00:55→17:10)
[2022-09-19] MEDS ORDERED: CLINDAMYCIN 900MG/D5W 900 MG/50 ML IVPB IV ONE ×2 (01:00→05:55)
[2022-09-19 02:20] LABS: Specific Gravity 1.008 (1.005-1.030); Urine Bacteria <20 /HPF (<20); Urine Bilirubin NEGATIVE (Negative); Urine Blood 3+ (Negative); Urine Clarity Extremely Turbid (Clear); Urine Color Light-Orange (Yellow); Urine Glucose NEGATIVE (Negative); Urine Mucus Slight /HPF (None Seen); Urine Protein TRACE (Negative); Urine RBC >50 /HPF (None Seen); Urine Urobilinogen Normal (Normal); Urine WBC Clump Many /HPF (None Seen)
[2022-09-19 06:16] LABS: Absolute Lymphocytes (CBC) 0.4 K/uL (0.7-4.9); Hematocrit 33.1 % (36.0-45.0); Lymphocytes % 4.6 % (15.3-44.8); MCV 83.7 fL (80-100); MPV 8.8 fL (7.6-11.3); RBC Red Blood Cell Count 3.95 M/uL (3.86-4.86)
[2022-09-19 06:40] LABS: Blood Morphology Comment NOT SEEN (NOT SEEN); Platelet Estimate ADEQ; White Blood Cell Scan OK (OK)
[2022-09-19 06:43] LABS: Potassium 3.2 mEq/L (3.5-5.1)
[2022-09-19] MEDS ORDERED: POTASSIUM CL SA 10 MEQ TAB PO ONE (07:32)
[2022-09-19] MEDS: ASPIRIN 81 MG CHEWABLE TABLET PO SCH (08:28)
[2022-09-19] MEDS: FUROSEMIDE 40 MG/4 ML VIAL IV SCH ×2 (08:28→17:10)
--- NOTE | 2022-09-19 09:51 | P.CNS ---
Date of Consult: 09/19/22 Reason for Consult: left hip cellulitis Chief Complaint: BLE swelling and left hip pain\\swelling and redness. History of Present Illness: Patient is a 67-year-old female with a medical history significant for chronic pain syndrome, COPD, morbid obesity, fibromyalgia, hyperlipidemia and CHF who presented to the ED with complaints of bilateral lower extremity swelling and left hip pain, swelling and redness. Patient reported that she has been having left hip pain and swelling for about 2 weeks prior to arrival. Patient also reported associated signs and symptoms of weight gain, diaphoresis, cough and shortness of breath. Patient reports multiple drug/antibiotic allergies. ID consulted for cellulitis of left hip. Allergies amoxicillin [From Augmentin] Allergy (Severe, Verified 09/16/19 23:49) diarrhea, nausea, vomiting ceftriaxone [From Rocephin] Allergy (Severe, Verified 09/16/19 23:49) Itching/Hives/Rash fentanyl Allergy (Severe, Verified 09/16/19 23:49) Itching/Hives/Rash iodine Allergy (Severe, Verified 09/16/19 23:49) Unknown lincomycin [From Lincocin] Allergy (Severe, Verified 09/16/19 23:49) rashes,headaches pneumococcal vaccine [From Pneumovax 23] Allergy (Severe, Verified 09/16/19 23:49) sick more than a week sulfamethoxazole [From Bactrim] Allergy (Severe, Verified 09/16/19 23:49) Anaphylaxis trifluoperazine [From Stelazine] Allergy (Severe, Verified 09/16/19 23:49) itching and rashes vancomycin Allergy (Severe, Verified 09/16/19 23:49) renal failure soap [From Betadine] Allergy (Mild, Verified 09/16/19 23:49) Hives/Rash Sulfa (Sulfonamide Antibiotics) Allergy (Mild, Verified 09/16/19 23:49) Anaphylaxis aloe vera Allergy (Verified 09/16/19 23:49) Itching celery Allergy (Verified 09/16/19 23:49) Nausea/Vomiting Macrolide Antibiotics Allergy (Verified 09/16/19 23:49) Itching/Hives/Rash FLU VACCINE Allergy (Severe, Uncoded 09/16/19 23:49) sick for more than a week aloe vera Allergy (Uncoded 09/16/19 23:49) Unknown hall peppers Allergy (Uncoded 09/16/19 23:49) Nausea/Vomiting celery Allergy (Uncoded 09/16/19 23:49) Unknown FLU VAC Allergy (Uncoded 09/16/19 23:49) Unknown peppers Allergy (Uncoded 09/16/19 23:49) Unknown Home medications list reviewed: Yes Home Medications: Benzonatate [Tessalon Perle*] 100 mg PO TID PRN 06/30/21 Furosemide [Lasix] 40 mg PO BID 06/30/21 Lovastatin 20 mg PO BEDTIME 06/30/21 Metoprolol Tartrate 25 mg PO BID 06/30/21 oxyBUTYnin chloride [Oxybutynin Chloride] 5 mg PO BID 06/30/21 Ciprofloxacin HCl [Cipro] 250 mg PO BEDTIME 09/18/22 Indomethacin 50 mg PO TID 09/18/22 Tramadol HCl 100 mg PO Q6H 09/18/22 - Past Medical/Surgical History Diabetic: No -: Lymphedema - bilateral leg -: Morbid obesity with Hx of Lap. Band -: Peripheral neuropathy -: Osteoarthritis -: mild COPD -: mild eczema -: Depression -: Sleep apnea -: CHF -: CRE -: hypertension -: frequent UTIs -: -: Lap band 2008 -: Tonsillectomy and adenoidectomy Psychosocial/ Personal History: Patient is and lives by herself. She has home health. - Family History Father Medical History: Heart disease Mother Medical History: Hypertension, Stroke Notes: erin deirdre syndrome - Social History Smoking Status: Current some day smoker Alcohol use: No CD- Drugs: No Caffeine use: Yes Place of Residence: Home Review of Systems 10-point ROS is otherwise unremarkable General: Weakness Respiratory: SOB with Excertion Musculoskeletal: Back Pain, Leg Pain Integumentary: Rash (buttocks) Lymphatics: Other (lymphedema BLE) Physical Examination Temp Pulse Resp BP Pulse Ox 98.1 F 59 18 102/60 91 09/19/22 04:00 09/19/22 08:28 09/19/22 04:00 09/19/22 08:28 09/19/22 04:00 General: Alert, In no apparent distress, Oriented x3, Obese HEENT: Atraumatic, Normocephalic Neck: Supple Respiratory: Normal air movement, Diminished Cardiovascular: Edema (Lymphedema BLE) Gastrointestinal: Normal bowel sounds, Soft and benign, No tenderness, Other (Obese) Integumentary: Skin breakdown (buttocks, moisture associated dermatitis), Other (lymphedema BLE) Neurological: Normal speech, Normal tone, Normal affect Urinary: Suprapubic catheter (clear yellow urine) Laboratory Data - Reviewed Microbiology Data - Pending Imagings Data: - XR Chest 09/18: "No acute cardiopulmonary disease." Medications List - Reviewed Conclusions/Impression: Problem List Acute on Chronic CHF exacerbation Anasarca Osteoarthritis Fibromyalgia Obesity Anemia of chronic disease CKD II Hyperlipidemia Possible Cellulitis of left hip? Lymphedema Cellulitis of Left Hip vs Moisture Associated Skin Breakdown - Blood cultures 09/19: Pending - Urine culture 09/18: Pending - Currently on Clindamycin (started 09/19) - No leukocytosis. Afebrile. Patient presented to hospital with concerns of increasing edema of bilateral lower extremities (she has severe lymphedema as well), shortness of breath and cough suggestive of CHF exacerbation. Management per hospitalist. - XR Chest: "No acute cardiopulmonary disease." Recommendations - Excoriation of buttocks L>R. Likely moisture associated skin breakdown vs cell ulitis. Photo documented in records. Recommend applying calazime cream to buttocks at this time. - Continue Clindamycin for now. - WBC and fever trends - Follow up with urine and blood cultures Case discussed with Christopher Killian. ID will continue to follow patient as needed.
[2022-09-19] MEDS: MORPHINE 4 MG/ML SYR IV PRN (11:33)
--- NOTE | 2022-09-19 15:45 | EKG ---
Test Date: 2022-09-18 Test Time: 16:11:19 Professor Of Physics: MB MEASUREMENT RESULTS: Intervals: Rate: 66 MA: 160 QRSD: 90 QT: 422 QTc: 442 [place]: P: 68 MA: 160 QRS: -4 T: 40 INTERPRETIVE STATEMENTS: Sinus rhythm with premature supraventricular complexes with occasional premature ventricular complexes Low voltage QRS Nonspecific ST and T wave abnormality Abnormal ECG Compared to ECG 08/27/2021 15:50:40 Atrial premature complex(es) now present Ventricular premature complex(es) now present Myocardial infarct finding no longer present Possible ischemia no longer present ST (T wave) deviation still present Electronically Signed On 09-19-22 15:44:18 CDT by Terry Ann
[2022-09-19] MEDS: oxyBUTYnin chloride 5 MG TAB PO SCH (21:20)
[2022-09-19] MEDS: BENZONATATE 100 MG CAP PO PRN (21:20)
[2022-09-19] MEDS: ATORVASTATIN 10 MG TAB PO SCH (21:20)
[2022-09-20] MEDS: MORPHINE 2 MG/ML SYR IV PRN ×2 (01:09→11:10)
[2022-09-20] MEDS: CLINDAMYCIN 900MG/D5W 900 MG/50 ML IVPB IV SCH ×4 (01:10→17:06)
[2022-09-20] MEDS: METOPROLOL TAR 25 MG TAB PO SCH ×2 (05:31→17:07)
[2022-09-20] MEDS ORDERED: DIPHENHYDRAMINE 25 MG TAB/CAP PO ONE (07:41)
[2022-09-20] MEDS: ASPIRIN 81 MG CHEWABLE TABLET PO SCH ×2 (09:00→09:09)
[2022-09-20] MEDS: oxyBUTYnin chloride 5 MG TAB PO SCH ×2 (09:09→21:35)
[2022-09-20] MEDS: FUROSEMIDE 40 MG/4 ML VIAL IV SCH (09:10)
[2022-09-20 09:14] LABS: Magnesium 2.1 mg/dL (1.6-2.4); Phosphorus 3.2 mg/dL (2.5-4.9)
--- NOTE | 2022-09-20 09:24 | ECHO ---
HEIGHT: 5 ft 2 in WEIGHT: 301 lb 0 oz DATE OF STUDY: 09/19/[address]: Terrell Bermudez 2-DIMENSIONAL: YES M.MODE: YES DOPPLER: YES COLOR FLOW: YES TDS: YES PORTABLE: YES DEFINITY: NO BUBBLE STUDY: NO DIAGNOSIS: DIASTOLIC CONGESTIVE HEART FAILURE CARDIAC HISTORY: CATHERIZATION: NO SURGERY: NO PROSTHETIC VALVE: NO PACEMAKER: NO MEASUREMENTS (cm) DIASTOLIC (NORMALS) SYSTOLIC (NORMALS) IVSd 1.2 (0.6-1.2) LA Diam 4.3 (1.9-4.0) LVEF 64% LVIDd 4.9 (3.5-5.7) LVIDs 3.2 (2.0-3.5) %FS 35% LVPWd 1.2 (0.6-1.2) Ao Diam 2.3 (2.0-3.7) 2 DIMENSIONAL ASSESSMENT: RIGHT ATRIUM: NOT SEEN WELL LEFT ATRIUM: ENLARGED RIGHT VENTRICLE: NOT SEEN WELL LEFT VENTRICLE: LVH TRICUSPID VALVE: NOT SEEN WELL MITRAL VALVE: MILD MR PULMONIC VALVE: NOT SEEN WELL AORTIC VALVE: NORMAL PERICARDIAL EFFUSION: NONE AORTIC ROOT: NORMAL LEFT VENTRICULAR WALL MOTION: NORMAL DOPPLER/COLOR FLOW: SEE BELOW COMMENTS: 1. POOR WINDOWS. 2. NORMAL LEFT VENTRICULAR EJECTION FRACTION 60-65%. 3. NORMAL WALL MOTION. 4. MILD MITRAL REGURGITATION. 5. LEFT ATRIAL ENLARGEMENT. 6. MILD CONCENTRIC LEFT VENTRICULAR HYPERTROPHY. TECHNOLOGIST: Elena SCHILLING
[2022-09-20] MEDS ORDERED: POTASSIUM CL SA 10 MEQ TAB PO ONE (09:25)
--- NOTE | 2022-09-20 09:48 | P.PN ---
Date of Service: 09/20/22 Chief Complaint: Bilater leg edema, shortness of breath Subjective: Patient seen and examined at bedside. +bilateral leg pain and swelling. + back pain. No abdominal pain, nausea, vomiting or diarrhea. No acute events reported overnight. Physical Examination Temp Pulse Resp BP Pulse Ox 97.1 F 61 18 109/48 L 94 09/20/22 04:00 09/20/22 09:10 09/20/22 04:00 09/20/22 09:10 09/20/22 04:00 General: Alert, In no apparent distress, Oriented x3, Obese HEENT: Atraumatic, Normocephalic Neck: Supple Respiratory: Normal air movement, Diminished Cardiovascular: Edema/Lymphedema bilateral lower extremities. RRR. Gastrointestinal: Normal bowel sounds, Soft and benign, No tenderness, Obese. Integumentary: Moisture associated dermatitis buttocks. Lymphedema BLE. Neurological: Normal speech, Normal tone, Normal affect Urinary: Suprapubic catheter (clear yellow urine) Laboratory Data - Reviewed Microbiology Data - Pending Imagings Data: - XR Chest 09/18: "No acute cardiopulmonary disease." Medications List - Reviewed Assessment and Plan Problem List Acute on Chronic CHF exacerbation Anasarca Osteoarthritis Fibromyalgia Obesity Anemia of chronic disease CKD II Hyperlipidemia Lymphedema Moisture Associated Dermatitis * Multiple drug and food allergies * Moisture Associated Dermatitis - Excoriation/ moisture associated skin breakdown buttocks. - Blood cultures 09/19: No growth 24 hours - Urine culture 09/18: Pending - Currently on Clindamycin (started 09/19) - No leukocytosis. Afebrile. Recommendations - Moisture associated dermatitis: Apply zinc-based cream (ie Calazime) to buttocks - Continue Clindamycin for now. Day 2. - Follow up with urine cultures Case discussed with Dr. Hansen, N. ID will continue to follow patient as needed.
[2022-09-20] MEDS: ALBUMIN HUMAN 25% 12.5 GM, FUROSEMIDE 100 MG in NA CHLORIDE 0.9% 40 ML IV SCH ×2 (12:26→17:06)
[2022-09-20] MEDS: ATORVASTATIN 10 MG TAB PO SCH (21:35)
[2022-09-20] MEDS: BENZONATATE 100 MG CAP PO PRN (21:37)
[2022-09-21] MEDS: CLINDAMYCIN 900MG/D5W 900 MG/50 ML IVPB IV SCH ×5 (00:57→23:52)
[2022-09-21] MEDS: MORPHINE 2 MG/ML SYR IV PRN ×2 (02:53→10:10)
[2022-09-21] MEDS: METOPROLOL TAR 25 MG TAB PO SCH ×2 (04:49→16:29)
[2022-09-21 06:47] LABS: Absolute Lymphocytes (CBC) 0.9 K/uL (0.7-4.9); Hematocrit 35.1 % (36.0-45.0); Lymphocytes % 9.9 % (15.3-44.8); MCV 83.8 fL (80-100); MPV 8.4 fL (7.6-11.3); RBC Red Blood Cell Count 4.18 M/uL (3.86-4.86)
[2022-09-21 07:03] LABS: AST/SGOT 9 U/L (15-37); Alkaline Phosphatase 60 U/L (45-117); BUN Blood Urea Nitrogen 14 mg/dL (7-18); Bicarbonate 30 mEq/L (21-32); Bilirubin Total 0.5 mg/dL (0.2-1.0); Glomerular Filtration Rate 71 ml/min (=/>90); Glucose Level 104 mg/dL (74-106); Magnesium 2.1 mg/dL (1.6-2.4); Potassium 3.1 mEq/L (3.5-5.1); Protein, Total 7.2 g/dL (6.4-8.2); Sodium Level 140 mEq/L (136-145)
[2022-09-21 07:20] LABS: ALT/SGPT < 10 U/L (13-56)
[2022-09-21] MEDS ORDERED: POTASSIUM CL SA 10 MEQ TAB PO ONE ×4 (08:16→23:39)
[2022-09-21] MEDS: FUROSEMIDE 40 MG/4 ML VIAL IV SCH ×2 (08:42→16:26)
[2022-09-21] MEDS: oxyBUTYnin chloride 5 MG TAB PO SCH ×2 (08:43→21:26)
[2022-09-21] MEDS: ASPIRIN 81 MG CHEWABLE TABLET PO SCH ×2 (08:43→09:00)
[2022-09-21] MEDS: ATORVASTATIN 10 MG TAB PO SCH (21:26)
[2022-09-21] MEDS: BENZONATATE 100 MG CAP PO PRN (21:34)
[2022-09-22] MEDS: MORPHINE 2 MG/ML SYR IV PRN (04:10)
[2022-09-22 05:19] LABS: Phosphorus 3.6 mg/dL (2.5-4.9)
[2022-09-22 05:20] LABS: Magnesium 2.2 mg/dL (1.6-2.4); Potassium 3.7 mEq/L (3.5-5.1)
[2022-09-22] MEDS: CLINDAMYCIN 900MG/D5W 900 MG/50 ML IVPB IV SCH ×2 (06:00→12:00)
[2022-09-22] MEDS: METOPROLOL TAR 25 MG TAB PO SCH (06:00)
[2022-09-22 06:38] VITALS: BMI 52.1
[2022-09-22] MEDS: oxyBUTYnin chloride 5 MG TAB PO SCH (08:34)
[2022-09-22] MEDS: ASPIRIN 81 MG CHEWABLE TABLET PO SCH (08:34)
[2022-09-22] MEDS: FUROSEMIDE 40 MG/4 ML VIAL IV SCH (08:35)
[2022-09-22 08:48] VITALS: TEMP 97.6
[2022-09-22] MEDS ORDERED: POTASSIUM CL SA 10 MEQ TAB PO ONE (09:00)
[2022-09-22 09:32] VITALS: O2SAT 94
[2022-09-22 12:05] VITALS: BP 101/51
--- NOTE | 2022-09-22 12:22 | P.PN ---
Date of Service: 09/19/22
== END 2022-09-22 14:38 | disposition home health service (06) | DRG 291 ==
LOC: ER 14:35 → ERHOLD 18:13 → 4TH 19:03
PROVIDERS: ADMIT Hospitalist; ATTEND Hospitalist
DX: I13.0 Hypertensive heart and chronic kidney disease with heart failure and stage 1 through stage 4 chronic kidney disease, or unspecified chronic kidney disease (principal); I50.33 Acute on chronic diastolic (congestive) heart failure; Z68.44 Body mass index [BMI] 60.0-69.9, adult; L30.8 Other specified dermatitis; I89.0 Lymphedema, not elsewhere classified; N18.2 Chronic kidney disease, stage 2 (mild); D63.1 Anemia in chronic kidney disease; D63.8 Anemia in other chronic diseases classified elsewhere; E66.01 Morbid (severe) obesity due to excess calories; E78.5 Hyperlipidemia, unspecified; G47.00 Insomnia, unspecified; G89.4 Chronic pain syndrome; N32.81 Overactive bladder; E87.6 Hypokalemia; M16.12 Unilateral primary osteoarthritis, left hip; G62.9 Polyneuropathy, unspecified; M79.7 Fibromyalgia; S30.810A Abrasion of lower back and pelvis, initial encounter; J44.9 Chronic obstructive pulmonary disease, unspecified; F17.210 Nicotine dependence, cigarettes, uncomplicated; Z60.2 Problems related to living alone; Z88.1 Allergy status to other antibiotic agents; Z88.8 Allergy status to other drugs, medicaments and biological substances; Z88.7 Allergy status to serum and vaccine; Z79.82 Long term (current) use of aspirin; Z79.01 Long term (current) use of anticoagulants; Z79.899 Other long term (current) drug therapy; Z28.310 Unvaccinated for COVID-19
CPT/HCPCS: 36415; 71045; 80048; 80053; 81001; 83735; 83880; 84100; 84132; 84439; 84443; 84484; 85025; 87040; 87086; 87088; 93005; 93306; 96365; 96375; 99285; J1100; J1940; J2270; P9047

== ENCOUNTER 2022-10-11 11:33 | Inpatient (IN) | payer OTHER ==
--- OUTSIDE RECORDS SUMMARY | 2022-10-11 11:41 | XMS REPORT | Continuity of Care Document ---
:1955 Author Organization [facility] t Address [address] [facility]. [address] [place] [address] Care Team Providers Name Role Phone Castillo Wallace Primary Care Physician Judith Gutierrez Attending Clinician Unavailable Zach Avery MD Attending Clinician [phone] LUIS CARLOS PARKER Attending Clinician Unavailable MAICOL GOLDSMITH Attending Clinician Unavailable MAICOL GOLDSMITH Attending Clinician Unavailable Doctor Unassigned, [place] Attending Clinician Unavailable ZACH AVERY Attending Clinician Unavailable Rivera RT, Crystal C Attending Clinician Unavailable EVI FOSTER Attending Clinician Unavailable Zachary Loyd MD Attending Clinician Manish CHOU, Janae Krishnamurthy Attending Clinician [phone] Evi Foster MD Attending Clinician JANAE HAMMOND Admitting Clinician Unavailable Janae Hammond MD Admitting Clinician [phone] Payers Payer Name Policy Type Policy Number Effective Date Expiration Date Aster benedict [employer] MEDICARE 53 [id number] Common Sp dre - [facility] Problems Condition Condition Condition Status Onset Resolution Last Treating Co mments Source Name Details Category Date Date Treatment Clinician Date Hyperlipid Hyperlipid Disease Active U nivers emia emia 6- ity of 00:00: [place] 00 Medical Branch Heart Heart Disease Active Univers failure failure 6- ity of 00:00: [place] Medical [facility] Hydronephr Hydronephr Disease Active U [...] different from the original. 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 [id number] Mixed Problem Common hyperlipid Spirit emia - [facility] Urinary Urinary Problem Common incontinen incontinen Sp dre ce ce, - [facility]I unspecifie [facility] d [facility] [id number] Fibromyalg Problem Co mmon ia Spirit - [facility] [id number] Unsteady Problem Comm on gait [facility] Primary Primary Problem Common osteoarthr osteoarthr Sp dre itis itis - [facility] involving [facility] [id number] Constipati Problem Com mon on, Spirit unspecifie - [facility] [id number] Hx of Problem Common laparoscop Spirit ic gastric - [facility] banding [facility] [id number] Simple Problem Common chronic Spirit bronchitis - [facility] [id number] Chronic Problem Commo n suprapubic Spirit catheter - [facility] [id number] Positive Problem Com mon 03813 depression Spirit screening [facility] Lymphedema Lymphedema Problem C ommon [facility] [id number] Urinary Problem Commo n tract Spirit infection, - [facility] site not specified [facility] [id number] Pressure Problem Comm on injury of Spirit right - [facility] upper St thigh, [facility] stage 1 Medical [place] [id number] Encounter Problem Com mon for care Spirit or - [facility]I replacemen [facility] t [facility] suprapubic Medica l tube Center [id number] Recurrent Problem Com mon UTI [facility] [id number] Continuous Problem Co mmon leakage of Spirit urine [facility] [id number] Decreased Problem Commo n mobility [facility] [id number] Wheelchair Problem Co mmon dependence [facility] [id number] Pressure Problem Comm on injury of Spirit right - [facility] buttock, St stage 2 [facility] [id number] Essential Problem Comm on hypertensi Spirit on [facility] Chronic Chronic Problem Common obstructiv obstructiv Sp dre e e - CHI pulmonary pulmonary St disease disease [facility] Urostomy Encounter Problem Comm on management for Spirit and care attention - CHI to other [facility] openings Medical of urinary Center tract Osteoarthr Bilateral Problem Co mmon itis of primary Spirit knee osteoarthr - CHI itis of knee [facility] Chronic Chronic Problem Common venous venous Spirit hypertensi hypertensi - CHI on on St (idiopathi (idiopathi Sanna kes c) with c) with Medical ulcer and ulcer and Cent er inflammati inflammati on of on of bilateral bilateral lower lower extremity extremity Incontinen Incontinen Problem C ommon ce ce [facility] Dependence Dependent Problem Co mmon on on Spirit wheelchair wheelchair [facility] [id number] Acute on Problem Comm on 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 Allergies, Adverse Reactions, Alerts Allergy Allergy Status Severity Reaction(s) Onset Inactive Treating Comm ents Source Name Type Date Date Clinician Iodine Propensi Active Anaphylaxis Report Uni vers [...] Medical s Branch Sulfa Propensi Active Itching 2021-0 Univers (Sulfona ty to 6-20 ity of mide adverse 00:00: [place] Antibiot reaction 00 Medica l ics) s Branch Vancomyc Propensi Active Itching 2021-0 Unive rs in ty to 6-20 ity of adverse 00:00: [place] reaction 00 Medical s Branch AMOXICIL DRUG Active High ITCHING 2021-0 Univers ALBA-POT 6-20 ity of CLAVULAN 00:00: [place] ATE 00 Medical Branch FENTANYL DRUG Active High Anaphylaxis 2021-0 Uni vers INGREDI 6-20 ity of 00:00: [place] 00 Medical Branch HYDROMOR DRUG Active High Anaphylaxis 2021-0 Uni vers PHONE INGREDI 6-20 ity of 00:00: [place] 00 Medical Branch IODINE Drug Active High Anaphylaxis 2021-0 Unive rs AND Class 6-20 ity of IODIDE 00:00: [place] CONTAINI 00 Medical NG Branch PRODUCTS MACROLID Drug Active High SOB [...] ity of MIDE 00:00: [place] ANTIBIOT 00 Medical ICS) Branch VANCOMYC DRUG Active High ITCHING 2021-0 Univers IN INGREDI 6-20 ity of 00:00: [place] 00 Medical Branch NALBUPHI DRUG Active Unknown-Cmnt 2004-03 Un [...] of adverse 00:00: [place] reaction 00 Medical Branch lincomyc lincomyc Active Unknown Commo n in in [facility] fentanyl fentanyl Active Unknown Commo n [facility] nitrofur nitrofur Active Unknown Commo n antoin, antoin, Spirit macrocry macrocry [facility] stals / stals / St nitrofur nitrofur [facility] antoin, antoin, Medical monohydr monohydr Center ate ate 2487 Drug Active Unknown Common allergy [facility] 8228 Drug Active Unknown Common allergy [facility] povidone povidone Active Unknown Commo n -iodine -iodine [facility] 5513 Drug Active Unknown Common allergy [facility] vancomyc vancomyc Active Unknown Commo n in in [facility] Social History Social Habit Start Date Stop Date Quantity Comments Source History of Current Smoker Common Spi rit - Tobacco Use [facility] Tobacco use and 2021-10-11 2021-10-11 Smokeless tobacco Un iversity of exposure 00:00:00 00:00:00 non-user [facility] Exposure to 2021-08-18 2021-08-28 Not sure [facility] SARS-CoV-2 00:00:00 01:36:00 [facility] (event) [place] Sex Assigned At [birth year] [facility] 00:00:00 00:00:00 Medical Center Smoking Status Start Date Stop Date Source Current Smoker 2021-10-22 00:00:00 Common Spiri t [facility] Never smoked tobacco [facility] [place] Medications Ordered Filled Start Stop Current Ordering Indication Dosage Frequency Signature Comments Components Source Medication Medication Date Date Medication? Clinician (SIG) Name Name HYDROcodone HYDROcodone 2021- No QID HYDROcodon -Acetaminop -Acetaminop 8-10-24 e-Acetamin hen 5-325 hen 5-325 00:00: 00:00 ophen MG MG 00 :00 5-325 MG HYDROcodone HYDROcodone 2021-2021- No QID HYDROcodon -Acetaminop -Acetaminop 8-10-24 e-Acetamin hen 5-325 hen 5-325 00:00: 00:00 ophen MG MG 00 :00 5-325 MG aspirin 81 0 Yes 81mg Take 81 mg U nivers mg chewable 7-19 by mouth ity of tablet 13:28: daily. [place] [address] Medical Branch Mometasone- 0 Yes 2{puff} Inhale 2 Univers Formoterol 7-19 Puffs 2 ity of (DULERA) 13:28: (two) [place] 200-5 times Medical mcg/actuati daily as Bran ch on inhaler needed. foLIC acid 0 Yes 1mg Take 1 mg Un [place] 1 mg tablet 7-19 by mouth ity of 13:28: daily. [place] [address] Medical Branch furosemide 0 Yes 40mg Take 40 mg U nivers 40 mg 7-19 by mouth 2 ity of tablet 13:28: (two) [place] [address] times Medical daily. Branch gabapentin 0 Yes 300mg Take 300 Un [place] 300 mg 7-19 mg by ity of capsule 13:28: mouth 3 [place] [address] (three) Medical times Branch daily as needed. lovastatin 0 Yes 20mg Take 20 mg U nivers 20 mg 7-19 by mouth ity of tablet 13:28: at [place] [address] bedtime. Medical Branch metoprolol 0 Yes 25mg Take 25 mg U nivers tartrate 25 7-19 by mouth 2 it y of mg tablet 13:28: (two) [place] [address] times Medical daily. Branch oxybutynin 0 Yes 5mg Take 5 mg Un [place] chloride 5 7-19 by mouth 2 ity of mg tablet 13:28: (two) [place] [address] times Medical daily. Branch aspirin 81 0 Yes 81mg Take 81 mg U nivers mg chewable 7-19 by mouth ity of tablet 13:28: daily. [place] [address] Medical Branch Mometasone- 2021-0 Yes 2{puff} Inhale 2 Univers Formoterol 7-19 Puffs 2 ity of (DULERA) 13:28: (two) [place] 200-5 55 times Medical mcg/actuati daily as Bran ch on inhaler needed. foLIC acid 2021-0 Yes 1mg Take 1 mg Un [place] 1 mg tablet 7-19 by mouth ity of 13:28: daily. [place] [address] Medical Branch furosemide 2021-0 Yes 40mg Take 40 mg U nivers 40 mg 7-19 by mouth 2 ity of tablet 13:28: (two) [place] [address] times Medical daily. Branch gabapentin 2021-0 Yes 300mg Take 300 Un [place] 300 mg 7-19 mg by ity of capsule 13:28: mouth 3 [place] [address] (three) Medical times Branch daily as needed. lovastatin 2021-0 Yes 20mg Take 20 mg U nivers 20 mg 7-19 by mouth ity of tablet 13:28: at [place] [address] bedtime. Medical Branch metoprolol 2021-0 Yes 25mg Take 25 mg U nivers tartrate 25 7-19 by mouth 2 it y of mg tablet 13:28: (two) [place] [address] times Medical daily. Branch oxybutynin 2021-0 Yes 5mg Take 5 mg Un [place] chloride 5 7-19 by mouth 2 ity of mg tablet 13:28: (two) [place] [address] times Medical daily. Branch aspirin 81 2021-0 Yes 81mg Take 81 mg U nivers mg chewable 7-19 by mouth ity of tablet 13:28: daily. [place] [address] Medical Branch Mometasone- 2021-0 Yes 2{puff} Inhale 2 Univers Formoterol 7-19 Puffs 2 ity of (DULERA) 13:28: (two) [place] 200-5 55 times Medical mcg/actuati daily as Bran ch on inhaler needed. foLIC acid 2021-0 Yes 1mg Take 1 mg Un [place] 1 mg tablet 7-19 by mouth ity of 13:28: daily. [place] [address] Medical Branch furosemide 2021-0 Yes 40mg Take 40 mg U nivers 40 mg 7-19 by mouth 2 ity of tablet 13:28: (two) [place] [address] times Medical daily. Branch gabapentin 2021-0 Yes 300mg Take 300 Un [place] 300 mg 7-19 mg by ity of capsule 13:28: mouth 3 [place] [address] (three) Medical times [place] daily as needed. lovastatin 2-0 Yes 20mg Take 20 mg U nivers 20 mg 7-19 by mouth ity of tablet 13:28: at [place] [address] bedtime. Medical Branch metoprolol 2-0 Yes 25mg Take 25 mg U nivers tartrate 25 7-19 by mouth 2 it y of mg tablet 13:28: (two) [place] 55 times Medical daily. Branch oxybutynin 2021-0 Yes 5mg Take 5 mg Un [place] chloride 5 7-19 by mouth 2 ity of mg tablet 13:28: (two) [place] [address] times Medical daily. Branch aspirin 81 2021-0 Yes 81mg Take 81 mg U nivers mg chewable 7-19 by mouth ity of tablet 13:28: daily. [place] [address] Medical Branch Mometasone- 2021-0 Yes 2{puff} Inhale 2 Univers Formoterol 7-19 Puffs 2 ity of (DULERA) 13:28: (two) [place] 200-5 55 times Medical mcg/actuati daily as Bran ch on inhaler needed. foLIC acid 2021-0 Yes 1mg Take 1 mg Un [place] 1 mg tablet 7-19 by mouth ity of 13:28: daily. [place] [address] Medical Branch furosemide 2021-0 Yes 40mg Take 40 mg U nivers 40 mg 7-19 by mouth 2 ity of tablet 13:28: (two) [place] [address] times Medical daily. Branch gabapentin 2021-0 Yes 300mg Take 300 Un [place] 300 mg 7-19 mg by ity of capsule 13:28: mouth 3 [place] [address] (three) Medical times [place] daily as needed. lovastatin 2021-0 Yes 20mg Take 20 mg U nivers 20 mg 7-19 by mouth ity of tablet 13:28: at [place] [address] bedtime. Medical Branch metoprolol 2-0 Yes 25mg Take 25 mg U nivers tartrate 25 7-19 by mouth 2 it y of mg tablet 13:28: (two) [place] 55 times Medical daily. Branch oxybutynin 2-0 Yes 5mg Take 5 mg Un [place] chloride 5 7-19 by mouth 2 ity of mg tablet 13:28: (two) [place] [address] times Medical daily. Branch aspirin 81 2021-0 Yes 81mg Take 81 mg U nivers mg chewable 7-19 by mouth ity of tablet 13:28: daily. [place] 55 Medical Branch Mometasone- 2021-0 Yes 2{puff} Inhale 2 Univers Formoterol 7-19 Puffs 2 ity of (DULERA) 13:28: (two) [place] 200-5 55 times Medical mcg/actuati daily as Bran ch on inhaler needed. foLIC acid 2021-0 Yes 1mg Take 1 mg Un [place] 1 mg tablet 7-19 by mouth ity of 13:28: daily. [place] [address] Medical Branch furosemide 2021-0 Yes 40mg Take 40 mg U nivers 40 mg 7-19 by mouth 2 ity of tablet 13:28: (two) [place] [address] times Medical daily. Branch gabapentin 2021-0 Yes 300mg Take 300 Un [place] 300 mg 7-19 mg by ity of capsule 13:28: mouth 3 [place] [address] (three) Medical times [place] daily as needed. lovastatin 2021-0 Yes 20mg Take 20 mg U nivers 20 mg 7-19 by mouth ity of tablet 13:28: at [place] [address] bedtime. Medical Branch metoprolol 2021-0 Yes 25mg Take 25 mg U nivers tartrate 25 7-19 by mouth 2 it y of mg tablet 13:28: (two) [place] [address] times Medical daily. Branch oxybutynin 2021-0 Yes 5mg Take 5 mg Un [place] chloride 5 7-19 by mouth 2 ity of mg tablet 13:28: (two) [place] [address] times Medical daily. Branch aspirin 81 2021-0 Yes 81mg Take 81 mg U nivers mg chewable 6-30 by mouth ity of tablet 21:54: daily. [place] 10 Medical Branch Mometasone- 2-0 Yes 2{puff} Inhale 2 Univers Formoterol 6-30 Puffs 2 ity of (DULERA) 21:54: (two) [place] 200-5 10 times Medical mcg/actuati daily as Bran ch on inhaler needed. foLIC acid 2-0 Yes 1mg Take 1 mg Un [place] 1 mg tablet 6-30 by mouth ity of 21:54: daily. [place] [address] Medical Branch furosemide 2021-0 Yes 40mg Take [...] by mouth ity of tablet 21:54: at [place] 10 bedtime. Medical Branch metoprolol 2021-0 Yes [...] by mouth ity of tablet 21:54: daily. [place] [address] Medical Branch Mometasone- 2021-0 Yes 2{puff} Inhale 2 Univers Formoterol 6-30 Puffs 2 ity of (DULERA) 21:54: (two) [place] 200-5 10 times Medical mcg/actuati daily as Bran ch on inhaler needed. foLIC acid 2021-0 Yes 1mg Take 1 mg Un [place] 1 mg tablet 6-30 by mouth ity of 21:54: daily. [place] [address] Medical Branch furosemide 2021-0 Yes 40mg Take 40 mg U nivers 40 mg 6-30 by mouth 2 ity of tablet 21:54: (two) [place] 10 times Medical daily. Branch gabapentin 2021-0 Yes 300mg Take 300 Un [place] 300 mg 6-30 mg by ity of capsule 21:54: mouth 3 [place] 10 (three) Medical times [place] daily as needed. lovastatin 2021-0 Yes 20mg Take 20 mg U nivers 20 mg 6-30 by mouth ity of tablet 21:54: at [place] 10 bedtime. Medical Branch metoprolol 2021-0 Yes 25mg Take 25 mg U nivers tartrate 25 6-30 by mouth 2 it y of mg tablet 21:54: (two) [place] 10 times Medical daily. Branch oxybutynin 2021-0 Yes 5mg Take 5 mg Un [place] chloride 5 6-30 by mouth 2 ity of mg tablet 21:54: (two) [place] 10 times Medical daily. Branch aspirin 81 2021-0 Yes 81mg Take 81 mg U nivers mg chewable 6-30 by mouth ity of tablet 21:54: daily. [place] [address] Medical Branch Mometasone- 2021-0 Yes 2{puff} Inhale 2 Univers Formoterol 6-30 Puffs 2 ity of (DULERA) 21:54: (two) [place] 200-5 10 times Medical mcg/actuati daily as Bran ch on inhaler needed. foLIC acid 2021-0 Yes 1mg Take 1 mg Un [place] 1 mg tablet 6-30 by mouth ity of 21:54: daily. [place] [address] Medical Branch furosemide 2021-0 Yes 40mg Take 40 mg U nivers 40 mg 6-30 by mouth 2 ity of tablet 21:54: (two) [place] 10 times Medical daily. Branch gabapentin 2021-0 Yes 300mg Take 300 Un [place] 300 mg 6-30 mg by ity of capsule 21:54: mouth 3 [place] 10 (three) Medical times Branch daily as needed. lovastatin 2021-0 Yes 20mg Take 20 mg U nivers 20 mg 6-30 by mouth ity of tablet 21:54: at [place] 10 bedtime. Medical Branch metoprolol 2021-0 Yes 25mg Take 25 mg U nivers tartrate 25 6-30 by mouth 2 it y of mg tablet 21:54: (two) [place] 10 times Medical daily. Branch oxybutynin 2021-0 Yes 5mg Take 5 mg Un [place] chloride 5 6-30 by mouth 2 ity of mg tablet 21:54: (two) [place] 10 times Medical daily. Branch ipratropium 2021-0 Yes .5mg Inhale 2.5 Univers 0.02 % 6-30 mL 3 ity of nebulizer 00:00: (three) [place] solution 00 times Medical daily. Branch levalbutero 2021-0 Yes .31mg Inhale Uni vers l 0.31 mg/3 6-30 0.31 mg 3 ity of mL 00:00: (three) [place] nebulizer 00 times Medical solution daily. Branch ondansetron 2021-0 Yes 4mg Take 2 mL U nivers 4 mg/2 mL 6-30 by mouth ity of injection 00:00: every 6 [place] (six) Medical hours as Branch needed for [...] mouth ity of injection 00:00: every 6 [place] (six) Medical hours as Branch needed for [...] mouth ity of injection 00:00: every 6 [place] (six) Medical hours as Branch needed for [...] mouth ity of injection 00:00: every 6 [place] (six) Medical hours as Branch needed for [...] mouth ity of injection 00:00: every 6 [place] (six) Medical hours as Branch needed for [...] mouth ity of injection 00:00: every 6 [place] (six) Medical hours as Branch needed for Nausea and Vomiting (N/V). pantoprazol 2-0 Yes 40mg Take 1 Univ ers e 40 mg EC 6-30 tablet by ity of tablet 00:00: mouth 2 [place] (two) Medical times Branch daily. ipratropium 2-0 Yes .5mg Inhale 2.5 Univers 0.02 % 6-30 mL 3 ity of nebulizer 00:00: (three) [place] solution 00 times Medical daily. Branch levalbutero 2-0 Yes .31mg Inhale Uni vers l 0.31 mg/3 6-30 0.31 mg 3 ity of mL 00:00: (three) [place] nebulizer 00 times Medical solution daily. Branch ondansetron 2021-0 Yes 4mg Take 2 mL U nivers 4 mg/2 mL 6-30 by mouth ity of injection 00:00: every 6 [place] [address] (six) Medical hours as Branch needed for Nausea and Vomiting (N/V). pantoprazol 2-0 Yes 40mg Take 1 Univ ers e 40 mg EC 6-30 tablet by ity of tablet 00:00: mouth 2 [place] (two) Medical times Branch daily. Enoxaparin Enoxaparin 0 No QD Enoxaparin Sodium 150 Sodium 150 6-08 Sodium 150 MG/ML MG/ML 00:00: MG/ML 00 Enoxaparin Enoxaparin 0 No QD Enoxaparin Sodium [...] MG/0.4ML MG/0.4ML 00:00: MG/0.4ML 00 Enoxaparin Enoxaparin No .4{ml} BID Enoxaparin Sodium 40 Sodium 40 6-02 Sodium 40 MG/0.4ML MG/0.4ML 00:00: MG/0.4ML 00 Enoxaparin Enoxaparin No .4{ml} BID Enoxaparin Sodium 40 Sodium 40 6-02 Sodium 40 MG/0.4ML MG/0.4ML 00:00: MG/0.4ML 00 Nystatin Nystatin 2021- No QID Nystatin 478805 [id number] 07-19- [id number] UNIT/ML UNIT/ML 00:00: 00:00 UNIT/ML 00 :00 Nystatin Nystatin 2021- No QID Nystatin 146113 675569 07-19- 595431 UNIT/ML UNIT/ML 00:00: 00:00 UNIT/ML 00 :00 Meropenem 1 Meropenem 1 2020-03- No QD Meropenem GM GM 0 11-05 1 GM 00:00: 00:00 00 :00 Cefpodoxime Cefpodoxime 2020-03- No 1{table BID Cefpodoxim Proxetil Proxetil 04-20 t_with_ e Proxetil 100 MG 100 MG 00:00: 00:00 food} 100 MG 00 :00 Cefpodoxime Cefpodoxime 2020-03- No 1{table BID Cefpodoxim Proxetil Proxetil 12-26 t_with_ e Proxetil 100 MG 100 MG 00:00: 00:00 food} 100 MG 00 :00 Azithromyci Azithromyci 2020- No QD Azithromyc n 250 MG n 250 MG 10-27 08-25 in 250 MG 00:00: 00:00 00 :00 Azithromyci Azithromyci 2020- No QD Azithromyc n 250 MG n 250 MG 8 08-25 in 250 MG 00:00: 00:00 00 :00 Metoprolol Metoprolol Yes Na Gutierrez 1 tablet Common Tartrate Tartrate 11-02 with food Sp dre 00:00: - [facility] Doxycycline Doxycycline 2017-03 Yes Na Gutierrez 1 capsule Common Hyclate Hyclate 03-30 Spirit 00:00: - [facility] NAPROXEN 2004-03 Yes 1tab po q Univ ers 250 MG ORAL 2-22 6 hrs prn ity of TAB 00:00: pain Medical Branch FAMOTIDINE 2004-03 Yes 1 tab po Uni vers 20 MG ORAL 2-22 qd ity of TAB 00:00: [place] Medical [facility] FUROSEMIDE 2004- Yes 1 tab po Uni vers 20 MG ORAL 2-22 bid ity of TAB 00:00: Medical Branch NAPROXEN 2004- Yes 1tab po q Univ ers 250 MG ORAL 2-22 6 hrs prn ity of TAB 00:00: pain Medical Branch FAMOTIDINE 2004-03 Yes 1 tab po Uni vers 20 MG ORAL 2-22 qd ity of TAB 00:00: Medical Branch FUROSEMIDE 2004- Yes 1 tab po Uni vers 20 MG ORAL 2-22 bid ity of TAB 00:00: [place] Medical [facility] NAPROXEN 2004- Yes 1tab po q Univ ers 250 MG ORAL 2-22 6 hrs prn ity of TAB 00:00: pain Medical Branch FAMOTIDINE 2004- Yes 1 tab po Uni vers 20 MG ORAL 2-22 qd ity of TAB 00:00: Medical Branch FUROSEMIDE 2004- Yes 1 tab po Uni vers 20 MG ORAL 2-22 bid ity of TAB 00:00: Medical Branch NAPROXEN 2004- Yes 1tab po q Univ ers 250 MG ORAL 2-22 6 hrs prn ity of TAB 00:00: pain Medical Branch FAMOTIDINE 2004- Yes 1 tab po Uni vers 20 MG ORAL 2-22 qd ity of TAB 00:00: Medical Branch FUROSEMIDE 2004- Yes 1 tab po Uni vers 20 MG ORAL 2-22 bid ity of TAB 00:00: Medical Branch NAPROXEN 2004- Yes 1tab po q Univ ers 250 MG ORAL 2-22 6 hrs prn ity of TAB 00:00: pain Medical Branch FAMOTIDINE 2004- Yes 1 tab po Uni vers 20 MG ORAL 2-22 qd ity of TAB 00:00: [address] Branch FUROSEMIDE 2004- Yes 1 tab po Uni vers 20 MG ORAL 2-22 bid ity of TAB 00:00: [address] Indomethaci Indomethaci No 1{capsu Indomethac n 50 [...] GM Nystatin Nystatin No 1{appli BID Nystatin 045970 499618 cation_ 053517 UNIT/GM UNIT/GM to_affe UNIT/GM cted_ar ea} Sennosides [...] r_milk} Nystatin Nystatin No 1{appli BID Nystatin 688615 738883 cation_ 848414 UNIT/GM UNIT/GM to_affe UNIT/GM cted_ar ea} Fluocinonid [...] MG Nystatin Nystatin No 1{appli BID Nystatin 245440 765267 cation_ 267458 UNIT/GM UNIT/GM to_affe UNIT/GM cted_ar ea} Furosemide [...] MCG/ACT Nystatin Nystatin No 1{appli BID Nystatin 528963 021795 cation_ 957739 UNIT/GM UNIT/GM to_affe UNIT/GM cted_ar ea} Indomethaci [...] tablet Common Tartrate Tartrate with food Sp [facility] Benadryl Benadryl No 1{table TID Benadryl Allergy [...] mg Nystatin Nystatin No 1{appli BID Nystatin 318045 909456 cation_ 589362 UNIT/GM UNIT/GM to_affe UNIT/GM cted_ar ea} Indomethaci [...] MG Nystatin Nystatin No 1{appli BID Nystatin 279476 317088 cation_ 855433 UNIT/GM UNIT/GM to_affe UNIT/GM cted_ar ea} Benadryl [...] MG Nystatin Nystatin No 1{appli BID Nystatin 687032 381662 cation_ 852194 UNIT/GM UNIT/GM to_affe UNIT/GM cted_ar ea} Benadryl [...] MG Nystatin Nystatin No 1{appli BID Nystatin 485925 648375 cation_ 305725 UNIT/GM UNIT/GM to_affe UNIT/GM cted_ar ea} Benadryl [...] MG Nystatin Nystatin No 1{appli BID Nystatin 985827 425746 cation_ 133511 UNIT/GM UNIT/GM to_affe UNIT/GM cted_ar ea} Benadryl [...] MG Nystatin Nystatin No 1{appli BID Nystatin 798074 534252 cation_ 530738 UNIT/GM UNIT/GM to_affe UNIT/GM cted_ar ea} Lovastatin [...] MG Nystatin Nystatin No 1{appli BID Nystatin 432460 485347 cation_ 369381 UNIT/GM UNIT/GM to_affe UNIT/GM cted_ar ea} Lovastatin [...] MG Nystatin Nystatin No 1{appli BID Nystatin 603771 500296 cation_ 836373 UNIT/GM UNIT/GM to_affe UNIT/GM cted_ar ea} Hydrocortis [...] mg Nystatin Nystatin No 1{appli BID Nystatin 337444 760134 cation_ 414617 UNIT/GM UNIT/GM to_affe UNIT/GM cted_ar ea} Furosemide [...] mg Nystatin Nystatin No 1{appli BID Nystatin 321832 916670 cation_ 995072 UNIT/GM UNIT/GM to_affe UNIT/GM cted_ar ea} Furosemide [...] MG Nystatin Nystatin No 1{appli BID Nystatin 657034 460751 cation_ 713774 UNIT/GM UNIT/GM to_affe UNIT/GM cted_ar ea} Furosemide [...] MG Nystatin Nystatin No 1{appli BID Nystatin 600800 680548 cation_ 627492 UNIT/GM UNIT/GM to_affe UNIT/GM cted_ar ea} Furosemide [...] ed} Nystatin Nystatin No 1{appli BID Nystatin 955322 354752 cation_ 184776 UNIT/GM UNIT/GM to_affe UNIT/GM cted_ar ea} Hydrocortis [...] ed} Nystatin Nystatin No 1{appli BID Nystatin 382307 920171 cation_ 425845 UNIT/GM UNIT/GM to_affe UNIT/GM cted_ar ea} Hydrocortis [...] ed} Nystatin Nystatin No 1{appli BID Nystatin 475475 498291 cation_ 674136 UNIT/GM UNIT/GM to_affe UNIT/GM cted_ar ea} Hydrocortis [...] eeded} Nystatin Nystatin No 1{appli BID Nystatin 718983 100239 cation_ 512927 UNIT/GM UNIT/GM to_affe UNIT/GM cted_ar ea} Spiriva [...] ea} Nystatin Nystatin No 1{appli BID Nystatin 909177 309277 cation_ 953157 UNIT/GM UNIT/GM to_affe UNIT/GM cted_ar ea} Potassium [...] ea} Nystatin Nystatin No 1{appli BID Nystatin 699591 758621 cation_ 710875 UNIT/GM UNIT/GM to_affe UNIT/GM cted_ar ea} Benzonatate [...] MCG/ACT Nystatin Nystatin No 1{appli BID Nystatin 341641 442562 cation_ 368714 UNIT/GM UNIT/GM to_affe UNIT/GM cted_ar ea} Furosemide [...] GM Nystatin Nystatin No 1{appli BID Nystatin 787038 543568 cation_ 897791 UNIT/GM UNIT/GM to_affe UNIT/GM cted_ar ea} Sennosides [...] GM Nystatin Nystatin No 1{appli BID Nystatin 647598 500797 cation_ 032497 UNIT/GM UNIT/GM to_affe UNIT/GM cted_ar ea} Sennosides Sennosides No 15{ml_a QD Sennosides 25 MG/15ML 25 MG/15ML t_bedti 25 MG/15ML me_as_n eeded} Vital Signs Vital Name Observation Time Observation Value Comments Source Systolic blood 2021-10-11 18:44:00 106 mm[Hg] [facility] Diastolic blood 2021-10-11 18:44:00 66 mm[Hg] Unive rs[facility] Heart rate 2021-10-11 18:44:00 62 /min [facility] Body temperature 2021-10-11 18:44:00 36.78 Jacquelin [facility] 2021-10-11 18:44:00 16 /min General acute hospital Body height 2021-10-11 18:44:00 162.6 cm [facility] Body weight 2021-10-11 18:44:00 130.636 kg [facility] BMI 2021-10-11 18:44:00 49.44 kg/m2 [facility] Procedures Procedure Date / Time Performing Clinician Source Performed AUTHORIZATION FOR 2021-11-26 05:01:00 Doctor Unassigned, No [facility]I Name [facility] EXTERNAL PROVIDER 2021-09-19 05:01:00 Doctor Unassigned, No [facility] RECORDS Name [facility] Encounters Start End Encounter Admission Attending Care Care Encounter Source Date/Time Date/Time Type Type Clinicians Facility Department ID 2022-02-04 Out[facility]ier[facility] [id number] Common 13:09:00 [facility] 2021-09-12 Outpatient Gutierrez, Na [facility] [id number] 2 Common 10:05:00 [facility] 2021-07-13 Outpatient Gutierrez, Na [facility] [id number] 2 Common 12:02:00 [facility] 2021-07-12 Outpatient Gutierrez, Na [facility] [id number] Common 13:49:00 [facility] 2021-06-11 Outpatient Gutierrez, Na STLMLC [facility] [id number] 2 Common 08:32:00 [facility] 2021-06-05 Outpatient Gutierrez, Na STLMLC [facility] [id number] 2 Common 11:00:01 [facility] 2021-05-31 Outpatient Gutierrez, Na STLMLC [facility] [id number] 2 Common 09:00:01 [facility] 2021-05-14 Outpatient Gutierrez, Na STLMLC [facility] [id number] 2 Common 09:20:01 [facility] 2021-04-26 Outpatient Gutierrez, Na STLMLC [facility] [id number] 2 Common 15:13:00 [facility] 2021-04-04 Outpatient Gutierrez, Na STLMLC [facility] [id number] 2 Common 13:37:41 [id number] [facility] 2021-04-04 Outpatient Gutierrez, Na STLMLC [facility] [id number] 2 Common 13:27:35 [id number] [facility] 2021-04-04 Outpatient Gutierrez, Na STLMLC [facility] [id number] 2 Common 13:10:57 [id number] [facility] 2021-04-04 Outpatient Gutierrez, Na STLMLC [facility] [id number] 2 Common 12:33:38 [id number] [facility] 2021-04-04 Outpatient Gutierrez, Na STLMLC [facility] [id number] 2 Common 12:33:09 [id number] [facility] 2021-04-04 Outpatient Gutierrez, Na STLMLC [facility] [id number] 2 Common 11:19:52 [facility] 2021-04-04 Outpatient Gutierrez, Na STLMLC [facility] [id number] 2 Common 11:19:18 [facility] 2022-02-12 2022-02-12 Telephone GARRICK Avery [id number] Univers 00:00:00 00:00:00 [facility] [id number] i ty of [facility] [id number] [place] as [phone] [facility] [address] 2021-12-25 2021-12-25 Outpatient Steve PARKER, [facility] [id number] Univers 11:30:00 11:30:00 LUIS CARLOS itdylan o f [facility] 2021-12-18 2021-12-18 [facility], [facility] 1.2.840.114 [id number] Univers 00:00:00 00:00:00 [facility] [id number] i ty of [facility] [id number] [place] [phone] [address] 2021-11-26 2021-11-26 Orders Doctor MARIJA 1.2.840.114 [id number] Univers 00:00:00 00:00:00 Only Unassigned, ELENI 350.1.13.10 ity of [place] [facility] [id number] [place] [phone] [place] [address] [address] 2021-10-17 2021-10-17 OFFICE [facility] [id number] Co mmon 00:00:00 00:00:00 VISIT Spirit [facility] PT - CHI LEVEL 4 [facility] 2021-10-16 2021-10-16 (TEL) [facility] [id number] Co mmon 00:00:00 00:00:00 Spirit - CHI [facility] 2021-10-15 2021-10-15 [facility], [facility] [id number] Univers 00:00:00 00:00:00 [facility] [id number] i ty of [facility] [id number] [place] [phone] [facility] [address] 2021-10-12 2021-10-12 Telephone Sresh, [facility] 1.2.840.114 [id number] Univers 00:00:00 00:00:00 [facility] HEALTH [id number] i ty of [place] [facility] 4.2.7.2.686 [place] [phone] [facility] [address] 2021-10-11 2021-10-11 Office GARRICK Avery 1.2.840.114 [id number] Univers 13:15:00 13:30:00 Visit Zach Castañeda [facility] [id number] i ty of [facility] [id number] [place] [phone] [facility] [address] 2021-10-11 2021-10-11 [facility] [id number] Univers 13:15:00 13:15:00 [facility] 2021-10-11 2021-10-11 [facility] [id number] Univers 13:15:00 13:15:00 [facility] 2021-09-19 2021-09-19 Orders Doctor MARIJA 1.2.840.114 [id number] Univers 00:00:00 00:00:00 Only Unassigned, ELENI 350.1.13.10 ity of [place] [facility] [id number] [place] [phone] [facility] [address] 2021-09-19 2021-09-19 Telephone Rivera, [facility] [id number] Univers 00:00:00 00:00:00 Crystal BUTLER [id number] i ty of [place] [phone] Pr dical [facility] 2021-09-13 2021-09-13 (TEL) [facility] [id number] Co mmon 00:00:00 00:00:00 Spirit - [facility] 2021-08-27 2021-09-06 Inpatient [facility] [id number] Univers 22:49:00 20:02:00 EVI ity [facility] 2021-08-27 2021-09-06 [facility] Zachary Loyd [id number] Univers 22:49:00 20:02:00 Encounter Janae Hammond 350.1 .13.10 ity of [facility] 4.2.7.2.6 [address] [place] [phone] [facility] [address] 2021-09-03 2021-09-03 Telephone Manish WYJEANA 1.2.840.114 [id number] [facility] 00:00:00 00:00:00 Janae MULTISPEC 350.1.13.10 ity of [facility] [id number] [facility] [phone] [facility] AND MEHTA [address] [facility] 2021-08-10 2021-08-10 (TEL) STLMLC [facility] [id number] Co mmon 00:00:00 00:00:00 [facility] 2021-08-09 2021-08-09 OFFICE STLMLC STL[facility]C [id number] Co mmon 00:00:00 00:00:00 VISIT [facility] PT - CHI LEVEL [address] [place] [address] 2021-08-09 2021-08-09 (TEL) STLMLC [facility] [id number] Co mmon 00:00:00 00:00:00 [facility] 2021-07-19 2021-07-19 (TEL) STLMLC [facility] [id number] Co mmon 00:00:00 00:00:00 [facility] 2021-07-13 2021-07-13 OFFICE STLMLC STL[facility]C [id number] Co mmon 00:00:00 00:00:00 VISIT Spirit ESTAB PT - CHI LEVEL 4 [facility] 2021-07-12 2021-07-12 (TEL) STLMLC [facility] [id number] Co mmon 00:00:00 00:00:00 [facility] 2021-06-28 2021-06-28 (TEL) STLMLC [facility] [id number] Co mmon 00:00:00 00:00:00 [facility] 2021-06-13 2021-06-13 OFFICE STLMLC STL[facility]C [id number] Co mmon 00:00:00 00:00:00 VISIT Spirit ESTAB PT - CHI LEVEL 4 [facility] 2021-06-12 2021-06-12 (TEL) STLMLC ST[facility] [id number] Co mmon 00:00:00 00:00:00 [facility] 2021-06-04 2021-06-04 (TEL) STLMLC [facility] [id number] Co mmon 00:00:00 00:00:00 [facility] 2021-05-28 2021-05-28 (TEL) STLMLC [facility] [id number] Co mmon 00:00:00 00:00:00 [facility] 2021-05-14 2021-05-14 (TEL) STLMLC [facility] [id number] Co mmon 00:00:00 00:00:00 [facility] 2021-04-26 2021-04-26 OFFICE STLMLC STL[facility]C [id number] Co mmon 00:00:00 00:00:00 VISIT [facility] LEVEL 4 [facility] 2021-04-25 2021-04-25 (TEL) STLMLC STL[facility]C [id number] Co mmon 00:00:00 00:00:00 [facility] 2021-04-12 2021-04-12 (TEL) STLMLC STL[facility] [id number] Co mmon 00:00:00 00:00:00 [facility] 2021-03-30 2021-03-30 (TEL) STLMLC STL[facility]C [id number] Co mmon 00:00:00 00:00:00 [facility] 2021-02-27 2021-02-27 (TEL) STLMLC ST[facility] [id number] Co mmon 00:00:00 00:00:00 [facility] 2021-01-01 2021-01-01 (TEL) STLMLC ST[facility] [id number] Co mmon 00:00:00 00:00:00 [facility] 2020-12-19 2020-12-19 (TEL) STLMLC STL[facility] [id number] Co mmon 00:00:00 00:00:00 [facility] 2020-10-26 2020-10-26 (TEL) STLMLC STL[facility]C [id number] Co mmon 00:00:00 00:00:00 [facility] 2020-10-26 2020-10-26 (TEL) STLMLC STL[facility]C [id number] Co mmon 00:00:00 00:00:00 [facility] 2020-10-19 2020-10-19 (TEL) STLMLC ST[facility] [id number] Co mmon 00:00:00 00:00:00 [facility] 2020-10-11 2020-10-11 Outpatient STLMLC [facility] [id number] Common 00:00:00 00:00:00 [facility] 2020-09-27 2020-09-27 Outpatient STLMLC ST[facility] [id number] Common 00:00:00 00:00:00 [facility] 2020-09-27 2020-09-27 Outpatient STLMLC [facility] [id number] Common 00:00:00 00:00:00 [facility] 2020-09-22 2020-09-22 Outpatient STLMLC ST[facility] [id number] Common 00:00:00 00:00:00 [facility] 2020-08-15 2020-08-15 Outpatient STLMLC ST[facility] [id number] Common 00:00:00 00:00:00 [facility] 2020-07-21 2020-07-21 Outpatient STLMLC ST[facility] [id number] Common 00:00:00 00:00:00 [facility] 2020-07-03 2020-07-03 Outpatient STLMLC ST[facility] [id number] Common 00:00:00 00:00:00 [facility] 2020-06-30 2020-06-30 Outpatient STLMLC STL[facility] [id number] Common 00:00:00 00:00:00 [facility] 2020-06-30 2020-06-30 Outpatient STLMLC ST[facility] [id number] Common 00:00:00 00:00:00 [facility] 2020-06-27 2020-06-27 Outpatient STLMLC ST[facility] [id number] Common 00:00:00 00:00:00 [facility] 2020-06-07 2020-06-07 Outpatient STLMLC ST[facility] [id number] Common 00:00:00 00:00:00 [facility] 2020-05-29 2020-05-29 Outpatient STLMLC ST[facility] [id number] Common 00:00:00 00:00:00 [facility] 2020-05-23 2020-05-23 Outpatient STLMLC ST[facility] [id number] Common 00:00:00 00:00:00 [facility] 2020-05-11 2020-05-11 Outpatient STLMLC ST[facility] [id number] Common 00:00:00 00:00:00 [facility] 2020-05-07 2020-05-07 Outpatient STLMLC STL[facility] [id number] Common 00:00:00 00:00:00 [facility] 2020-05-04 2020-05-04 Outpatient STLMLC ST[facility] [id number] Common 00:00:00 00:00:00 [facility] 2020-04-19 2020-04-19 Outpatient STLMLC ST[facility] [id number] Common 00:00:00 00:00:00 [facility] 2020-04-04 2020-04-04 Outpatient STLMLC STL[facility]C [id number] Common 00:00:00 00:00:00 [facility] 2020-02-04 2020-02-04 Outpatient STLMLC STL[facility]C [id number] Common 00:00:00 00:00:00 [facility] 2020-02-01 2020-02-01 Outpatient STLMLC ST[facility] [id number] Common 00:00:00 00:00:00 [facility] 2020-01-05 2020-01-05 Outpatient STLMLC ST[facility] [id number] Common 00:00:00 00:00:00 [facility] 2019-12-20 2019-12-20 Outpatient STLMLC STL[facility] [id number] Common 00:00:00 00:00:00 [facility] 2019-12-19 2019-12-19 Outpatient STLMLC ST[facility]C [id number] Common 00:00:00 00:00:00 [facility] 2019-12-17 2019-12-17 Outpatient STLMLC STL[facility]C [id number] Common 00:00:00 00:00:00 [facility] 2019-11-03 2019-11-03 [facility] [id number] Common 10:19:00 10:19:[address] [facility] 2019-10-06 2019-10-06 [facility] [id number] Common 16:47:00 16:47:[address] [facility] 2019-09-30 2019-09-30 [facility] [id number] Common 14:56:00 14:56:[address] [facility] 2019-09-14 2019-09-14 [facility] [id number] Common 13:55:00 13:55:[address] [facility] 2019-08-12 2019-08-12 [facility] [id number] Common 11:39:00 11:39:[address] [facility] 2019-07-09 2019-07-09 [facility] [id number] Common 11:26:00 11:26:[address] [facility] 2019-07-06 2019-07-06 [facility] [id number] Common 14:00:00 14:00:[address] [facility] 2019-06-11 2019-06-11 [facility] [id number] Common 10:29:00 10:29:[address] [facility] 2019-06-08 2019-06-08 [facility] [id number] Common 10:57:00 10:57:[address] [facility] 2019-05-24 2019-05-24 [facility] [id number] Common 14:44:00 14:44:[address] [facility] 2019-04-12 2019-04-12 Out[facility] [id number] Common 10:58:00 10:58:[address] [facility] 2019-04-08 2019-04-08 Out[facility] [id number] Common 17:13:00 17:13:[address] [facility] 2019-03-26 2019-03-26 [facility] [id number] Common 07:58:00 07:58:[address] [facility] 2019-02-01 2019-02-01 Out[facility] [id number] Common 10:49:00 10:49:[address] [facility] 2019-01-21 2019-01-21 [facility] [id number] Common 12:09:00 12:09:[address] [facility] 2018-12-31 2018-12-31 Out[facility] [id number] Common 13:40:00 13:40:[address] [facility] 2018-12-24 2018-12-24 [facility] [id number] Common 16:51:00 16:51:[address] [facility] 2018-12-22 2018-12-22 Out[facility] [id number] Common 10:09:00 10:09:[address] [facility] 2018-12-16 2018-12-16 Out[facility] [id number] Common 13:32:00 13:32:[address] [facility] 2018-12-09 2018-12-09 [facility] [id number] Common 15:07:00 15:07:[address] [facility] 2018-12-08 2018-12-08 [facility] [id number] Common 09:21:00 09:21:[address] [facility] 2018-12-07 2018-12-07 [facility] [id number] Common 15:10:00 15:10:[address] [facility] 2018-10-29 2018-10-29 [facility] [id number] Common 11:00:00 11:00:[address] [facility] 2018-10-20 2018-10-20 [facility] [id number] Common 13:23:00 13:23:[address] [facility] 2018-10-05 2018-10-05 [facility] [id number] Common 16:27:00 16:27:[address] [facility] 2018-09-25 2018-09-25 [facility] [id number] Common 16:15:00 16:15:[address] [facility] 2018-09-23 2018-09-23 [facility] [id number] Common 15:54:00 15:54:[address] [facility] 2018-08-27 2018-08-27 [facility] [id number] Common 16:00:00 16:00:[address] [facility] 2018-08-25 2018-08-25 [facility] [id number] Common 15:20:00 15:20:[address] Spir it [facility] Results This patient has no known results.
[2022-10-11 12:32] LABS: Absolute Lymphocytes (CBC) 0.4 K/uL (0.7-4.9); Hematocrit 37.2 % (36.0-45.0); Lymphocytes % 1.5 % (15.3-44.8); MCV 83.9 fL (80-100); MPV 8.3 fL (7.6-11.3); Platelets 280 thou/uL (152-406); RBC Red Blood Cell Count 4.43 M/uL (3.86-4.86)
[2022-10-11 12:38] LABS: Protime INR 1.29
--- NOTE | 2022-10-11 12:48 | RAD REPORT ---
EXAM DESCRIPTION: Chrissy Single View10/11/2022 12:30 pm CLINICAL HISTORY: Fever COMPARISON: 2021 FINDINGS: The lungs appear clear of acute infiltrate. The heart is normal size IMPRESSION: No acute abnormalities displayed
[2022-10-11 12:49] LABS: Albumin 2.6 g/dL (3.4-5.0); Bilirubin Total 0.9 mg/dL (0.2-1.0); Protein, Total 7.7 g/dL (6.4-8.2); Urine Bacteria 20-50 /HPF (<20); Urine Bilirubin NEGATIVE (Negative); Urine Blood 3+ (OVER) (Negative); Urine Clarity Extremely Turbid (Clear); Urine Color Dark-Brown (Yellow); Urine Crystals Unidentified Moderate /HPF (None Seen); Urine Glucose NEGATIVE (Negative); Urine Mucus Slight /HPF (None Seen); Urine Protein 3+ (Negative); Urine RBC >50 /HPF (None Seen); Urine Urobilinogen Normal (Normal); Urine WBC Clump Many /HPF (None Seen)
[2022-10-11] MEDS ORDERED: Levofloxacin 750mg IV 750 MG/150 ML BAG IV ONE (13:02)
[2022-10-11] MEDS ORDERED: NA CHLORIDE 0.9% 500 ML ONE (13:02)
[2022-10-11] MEDS ORDERED: ACETAMINOPHEN 500 MG TAB ONE (13:02)
--- NOTE | 2022-10-11 13:48 | ER ---
Nurse's Notes [facility] Name: Jv Bryant Age: 67 yrs Sex: Female : 1955 Arrival Date: 10/11/2022 Time: 11:33 Bed 19 Private MD: Diagnosis: Fever, unspecified;Urosepsis;Cellulitis of left lower limb;Cellulitis of right lower limb;Lymphedema, not elsewhere classified Presentation: 10/11 11:39 Chief complaint: EMS states: toned out to home by home health nurse, nurse reported pt eh3 had fever for past 2 days, HR in 120s and BP in 150s. EMS reports BP of 119/63, HR 103, SpO2 97% on RA upon arrival at home. Suprapubic catheter was changed today by home health nurse and pt states "That's the first time she's hurt me when she changed my catheter". Coronavirus screen: Vaccine status: Patient reports being unvaccinated. Ebola Screen: No symptoms or risks identified at this time. Initial Sepsis Screen: Does the patient meet any 2 criteria? Temp <36.0*C (96.8*F)) or > 38.3*C (100.9*F). HR > 90 bpm. Yes Does the patient have a suspected source of infection? Yes: Dysuria/Frequency/Urgency/UTI. 11:39 Method Of Arrival: EMS: [facility] 11:39 Risk Assessment: Do you want to hurt yourself or someone else? Patient reports no [facility] desire to harm self or others. Onset of symptoms was October 11, 2022. 11:39 Acuity: SKYLER 3 eh3 Triage Assessment: 11:39 General: Appears distressed, uncomfortable, Behavior is cooperative, appropriate for 3 age. Pain: Complains of pain in generalized. Neuro: Level of Consciousness is awake, alert, obeys commands, Oriented to person, place, time, situation. Cardiovascular: Capillary refill < 3 seconds Patient's skin is warm and dry. Cardiovascular: Edema is 4+ to left knee, left midcalf, left ankle, left foot, right knee, right midcalf, right ankle and right foot. Respiratory: Airway is patent Respiratory effort is even, labored, Respiratory pattern is regular, symmetrical. GI: Abdomen is round non-distended. : suprapubic catheter in place to gravity drainage. Derm: Skin is pink, warm \\T\\ dry. 11:39 Derm: Skin has lesions on right and left legs Wound noted. eh3 Historical: - Allergies: 11:39 aloe vera; eh3 11:39 Augmentin; eh3 11:39 Betadine; eh3 11:39 Dilaudid; eh3 11:39 Fentanyl; eh3 11:39 FLU VACCINE; eh3 11:39 Iodine; eh3 11:39 Macrolide Antibiotics; eh3 11:39 meropenem; eh3 11:39 pneumonia vaccine; eh3 11:39 Rocephin; eh3 11:39 Stelazine; eh3 11:39 Sulfa (Sulfonamide Antibiotics); eh3 11:39 Vancomycin; eh3 - Home Meds: 11:39 benzonatate 100 mg Oral capsule 1 cap 3 times per day [Active]; Cipro 250 mg Oral eh3 tablet 1 tab nightly [Active]; furosemide 40 mg Oral tablet 1 tab 2 times per day [Active]; indomethacin 50 mg Oral capsule 1 cap 3 times per day [Active]; lovastatin 20 mg Oral tablet 1 tab every day at bedtime [Active]; metoprolol tartrate 25 mg Oral tablet 1 tab 2 times per day [Active]; oxybutynin chloride 5 mg Oral tablet 1 tab 2 times per day [Active]; tramadol 100 mg Oral tablet 1 tab every 6 hours [Active]; - PMHx: 11:39 ADD/ADHD; Arthritis; Chronic pain; COPD; Fibromyalgia; frequent UTI'S; heart disease- eh3 unspecified; Hyperlipidemia; Hypertension; insomnia; lymphedema; PERIPHERAL NEUROPATHY; unspecified kidney failure; - Immunization history:: Adult Immunizations up to date. - Social history:: Smoking status: unknown. Screenin:39 [facility] ED Fall Risk Assessment (Adult) Score/Fall Risk Level 0 - 2 = Low Risk. Abuse eh3 screen: Denies threats or abuse. Denies injuries from another. Nutritional screening: No deficits noted. Tuberculosis screening: No symptoms or risk factors identified. Assessment: 11:39 Reassessment: No changes from previously documented assessment. See triage assessment. eh3 11:39 Derm: Decubitus located on bilateral buttocks and posterior upper thigh approximately eh3 7.6 cm to 20 cm has macerated edges is draining small amount serosanguinous. 12:30 Reassessment: Patient and/or family updated on plan of care and expected duration. Pain eh3 level reassessed. Patient is alert, oriented x 3, equal unlabored respirations, skin warm/dry/pink. Pt is lethargic and oriented x 4, labored respirations, skin hot/dry/pink. 13:30 Reassessment: Patient and/or family updated on plan of care and expected duration. Pain eh3 level reassessed. Pt is lethargic and oriented x 4, labored respirations, skin hot/dry/pink. 14:30 Reassessment: Patient appears in no apparent distress at this time. Patient and/or eh3 family updated on plan of care and expected duration. Pain level reassessed. Pt is lethargic and oriented x 4, labored respirations, skin warm/dry/pink. 15:30 Reassessment: Patient appears in no apparent distress at this time. Patient and/or eh3 family updated on plan of care and expected duration. Pain level reassessed. Pt is lethargic and oriented x 4, labored respirations, skin warm/dry/pink. 16:30 Reassessment: Patient appears in no apparent distress at this time. Patient and/or eh3 family updated on plan of care and expected duration. Pain level reassessed. Pt is lethargic and oriented x 4, labored respirations, skin warm/dry/pink. 17:30 Reassessment: Patient appears in no apparent distress at this time. Patient and/or eh3 family updated on plan of care and expected duration. Pain level reassessed. Pt is lethargic and oriented x 4, labored respirations, skin warm/dry/pink. 18:30 Reassessment: Patient appears in no apparent distress at this time. Patient and/or eh3 family updated on plan of care and expected duration. Pain level reassessed. Pt is lethargic and oriented x 4, labored respirations, skin warm/dry/pink. 18:38 Reassessment: Failed attempt to call report to ICU, nurse states they have only 2 eh3 nurses and 4 patients at this time and requests ED to call back after shift change. 19:30 Reassessment: Patient appears in no apparent distress at this time. Patient and/or eh3 family updated on plan of care and expected duration. Pain level reassessed. Pt is lethargic and oriented x 4, labored respirations, skin warm/dry/pink. 19:55 Reassessment: Nurse to nurse report received by Antonio in ICU. eh3 20:15 Reassessment: Patient appears in no apparent distress at this time. Patient and/or eh3 family updated on plan of care and expected duration. Pain level reassessed. Pt is lethargic and oriented x 4, skin warm/dry/pink. Vital Signs: 11:39 BP 130 / 53; Pulse 102; Resp 18; Temp 102.4(O); Pulse Ox 97% on R/A; Weight 134.72 kg; eh3 Height 5 ft. 4 in. ; 12:30 BP 129 / 59; Pulse 107; Resp 26; Pulse Ox 97% on R/A; eh3 13:30 BP 126 / 57; Pulse 109; Resp 18; Temp 100.2(O); Pulse Ox 95% on R/A; eh3 14:30 BP 136 / 51; Pulse 121; Resp 20; Temp 99(O); Pulse Ox 95% on R/A; eh3 15:12 Pulse Ox 87% on R/A; eh3 15:30 BP 98 / 50; Pulse 87; Resp 24; Pulse Ox 95% on 4 lpm NC; eh3 16:30 BP 97 / 52; Pulse 95; Resp 22; Pulse Ox 100% on 4 lpm NC; eh3 17:15 BP 108 / 55; Pulse 96; eh3 17:30 BP 107 / 59; Pulse 99; Resp 22; Pulse Ox 100% on 3 lpm NC; eh3 18:30 BP 93 / 53; Pulse 101; Resp 21; Pulse Ox 100% on 3 lpm NC; eh3 19:30 BP 112 / 52; Pulse 96; Resp 25; Pulse Ox 95% on 3 lpm NC; eh3 20:15 BP 120 / 81; Pulse 100; Resp 25; Pulse Ox 96% on 3 lpm NC; eh3 11:39 Body Mass Index 50.98 (134.72 kg, 162.56 cm) 3 ED Course: 11:37 Patient arrived in ED. eb 11:39 Gabriela Ramirez, RN is Primary Nurse. eh3 11:39 Arm band placed on. eh3 11:39 Patient has correct armband on for positive identification. Bed in low position. Call eh3 light in reach. Side rails up X2. Provided Education on: Use of call hall. Client placed on continuous cardiac and pulse oximetry monitoring. NIBP monitoring applied. 11:43 Art Jackson MD is Attending Physician. kdr 11:55 Inserted saline lock: 20 gauge in right antecubital area, using aseptic technique. eh3 Blood collected. 12:32 Chest Single View XRAY In Process Unspecified. EDMS 13:46 Kyle Bettencourt MD is Hospitalizing Provider. kdr 14:00 Repositioned patient. Cleaned of incontinence. Linen changed. eh3 14:09 Radiology exam delayed due to pt getting cleaned up at this time. ls3 14:43 CT Stone Protocol In Process Unspecified. EDMS 15:12 Oxygen administration via nasal cannula \\T\\ 4L/min. eh3 18:31 Triage completed. eh3 20:15 No provider procedures requiring assistance completed. Patient admitted, IV remains in eh3 place. Administered Medications: 12:40 Drug: Acetaminophen PO 1000 mg Route: PO; eh3 13:30 Follow up: Response: Temperature is decreased eh3 12:40 Drug: LevaQUIN IVPB 750 mg Route: IVPB; Site: left antecubital; eh3 14:40 Follow up: Response: No adverse reaction; IV Status: Completed infusion; IV Intake: eh3 250ml 12:40 Drug: NS 0.9% IV 500 ml Route: IV; Rate: bolus; Site: right antecubital; eh3 14:00 Follow up: IV Status: Completed infusion; IV Intake: 500ml eh3 14:33 Drug: morphine IVP or IV 2 mg Route: IVP; Infused Over: 4 mins; Site: right antecubital;eh3 15:30 Follow up: Response: No adverse reaction eh3 16:15 Drug: NS 0.9% IV 1000 ml Route: IV; Rate: 1 bolus; Site: right antecubital; eh3 19:30 Follow up: IV Status: Completed infusion; IV Intake: 1000ml eh3 17:00 Not Given (Patient Refused): Ondansetron IVP 4 mg IVP once; over 2 minutes eh3 Medication: 20:15 VIS not applicable for this client. eh3 Intake: 14:00 IV: 500ml; Total: 500ml. eh3 14:40 IV: 250ml; Total: 750ml. eh3 19:30 IV: 1000ml; Total: 1750ml. eh3 Outcome: 13:47 Decision to Hospitalize by Provider. kdr 20:15 Admitted to ICU accompanied by nurse, family with patient, via stretcher, room 1, with eh3 oxygen, Report called to Antonio 20:15 Condition: stable 20:15 Instructed on the need for admit. 20:19 Patient left the ED. eh3 Signatures: Dispatcher [employer] EDMS Art Jackson MD MD kdr Botello, Elizabeth eb Siler, Lynzie 3 Gabriela Ramirez RN RN eh3 Corrections: (The following items were deleted from the chart) 15:11 13:30 BP 132 / 60; Pulse 101bpm; Resp 26bpm; Pulse Ox 97% RA; Temp 100.2F Oral; eh3 eh3 15:12 11:40 Inserted saline lock: 20 gauge in right antecubital area, using aseptic eh3 technique. Blood collected. eh3 17:14 15:12 Oxygen administration via nasal cannula \\T\\ 3L/min eh3 eh3 20:50 14:30 Reassessment: Patient appears in no apparent distress at this time. Patient eh3 and/or family updated on plan of care and expected duration. Pain level reassessed. Pt is lethargic and oriented x 4, labored respirations, skin hot/dry/pink eh3 20:50 15:30 Reassessment: Patient appears in no apparent distress at this time. Patient eh3 and/or family updated on plan of care and expected duration. Pain level reassessed. Pt is lethargic and oriented x 4, labored respirations, skin hot/dry/pink eh3 20:50 16:30 Reassessment: Patient appears in no apparent distress at this time. Patient eh3 and/or family updated on plan of care and expected duration. Pain level reassessed. Pt is lethargic and oriented x 4, labored respirations, skin hot/dry/pink eh3 20:50 17:30 Reassessment: Patient appears in no apparent distress at this time. Patient eh3 and/or family updated on plan of care and expected duration. Pain level reassessed. Pt is lethargic and oriented x 4, labored respirations, skin hot/dry/pink [facility] 20:50 18:30 Reassessment: Patient appears in no apparent distress at this time. Patient eh3 and/or family updated on plan of care and expected duration. Pain level reassessed. Pt is lethargic and oriented x 4, labored respirations, skin hot/dry/pink [facility] 20: 17:30 BP 107 / 59; Pulse 99bpm; Resp 22bpm; Pulse Ox 100% 4 lpm Nasal Cannula; [place] [id number] 20:52 18:30 BP 93 / 53; Pulse 101bpm; Resp 21bpm; Pulse Ox 100% 4 lpm Nasal Cannula; [place] [id number] 20:52 19:30 BP 112 / 52; Pulse 96bpm; Resp 25bpm; Pulse Ox 95% RA; [place] [id number] :53 20:30 Reassessment: Patient appears in no apparent distress at this time. Patient eh3 and/or family updated on plan of care and expected duration. Pain level reassessed. Pt is lethargic and oriented x 4, skin warm/dry/pink [facility] :[birth year] 20:30 BP 120 / 81; Pulse 100bpm; Resp 25bpm; Pulse Ox 96% 3 lpm Nasal Cannula; [place] [id number]
--- NOTE | 2022-10-11 13:48 | EDPHYS ---
Physician Documentation [facility] Name: Jv Bryant Age: 67 yrs Sex: Female : 1955 Arrival Date: 10/11/2022 Time: 11:33 Bed 19 Private MD: ED Physician Art Jackson HPI: 10/11 15:16 This 67 yrs old Female presents to ER via EMS with complaints of Fever, Urinary Problem.kdr 20:39 EMS was called to the home of the patient by the home health nurse. Nurse reported that kdr the patient has had a fever for the past 2 days. Her heart rate has been in the 120s. Blood pressure was in the 150s. EMS reported blood pressure of 119/63. Heart rate 103. Oxygen saturation 97% on room air. Patient had recently had her suprapubic catheter changed out (today) by the home health nurse. The patient reported that she usually does not have any pain with changing out of the catheter but she did have some pain today. Patient is chronically bedbound and without ability to ambulate. She has considerable macerated of skin in her lower back and upper legs.. Onset: The symptoms/episode began/occurred gradually, 2 day(s) ago. Severity of symptoms: At their worst the symptoms were mild in the emergency department the symptoms are unchanged. The patient has not experienced similar symptoms in the past. The patient has not recently seen a physician, The patient has been recently been admitted at [facility], was discharged last month. Historical: - Allergies: 11:39 aloe vera; eh3 11:39 Augmentin; eh3 11:39 Betadine; eh3 11:39 Dilaudid; eh3 11:39 Fentanyl; eh3 11:39 FLU VACCINE; eh3 11:39 Iodine; eh3 11:39 Macrolide Antibiotics; eh3 11:39 meropenem; eh3 11:39 pneumonia vaccine; eh3 11:39 Rocephin; eh3 11:39 Stelazine; eh3 11:39 Sulfa (Sulfonamide Antibiotics); eh3 11:39 Vancomycin; eh3 - Home Meds: 11:39 benzonatate 100 mg Oral capsule 1 cap 3 times per day [Active]; Cipro 250 mg Oral eh3 tablet 1 tab nightly [Active]; furosemide 40 mg Oral tablet 1 tab 2 times per day [Active]; indomethacin 50 mg Oral capsule 1 cap 3 times per day [Active]; lovastatin 20 mg Oral tablet 1 tab every day at bedtime [Active]; metoprolol tartrate 25 mg Oral tablet 1 tab 2 times per day [Active]; oxybutynin chloride 5 mg Oral tablet 1 tab 2 times per day [Active]; tramadol 100 mg Oral tablet 1 tab every 6 hours [Active]; - PMHx: 11:39 ADD/ADHD; Arthritis; Chronic pain; COPD; Fibromyalgia; frequent UTI'S; heart disease- eh3 unspecified; Hyperlipidemia; Hypertension; insomnia; lymphedema; PERIPHERAL NEUROPATHY; unspecified kidney failure; - Immunization history:: Adult Immunizations up to date. - Social history:: Smoking status: unknown. ROS: 20:39 Eyes: Negative for injury, pain, redness, and discharge, Neck: Negative for injury, kdr pain, and swelling, Cardiovascular: Negative for chest pain, palpitations, and edema, Respiratory: Negative for shortness of breath, cough, wheezing, and pleuritic chest pain, Abdomen/GI: Negative for abdominal pain, nausea, vomiting, diarrhea, and constipation, Back: Negative for injury and pain, MS/Extremity: Negative for injury and deformity, Skin: Negative for injury, rash, and discoloration, Neuro: Negative for headache, weakness, numbness, tingling, and seizure activity. Psych: Negative for depression, anxiety, suicide ideation, homicidal ideation, and hallucinations, Allergy/Immunology: Negative for hives, rash, and allergies, Endocrine: Negative for neck swelling, polydipsia, polyuria, polyphagia, and marked weight changes, Hematologic/Lymphatic: Negative for swollen nodes, abnormal bleeding, and unusual bruising. 20:39 Constitutional: Positive for body aches, chills, fever, malaise, poor PO intake. 20:39 Skin: Positive for erythema, rash, diffusely, Diffusely in the lower back and upper aspect of lower extremities. Exam: 20:39 Constitutional: This is a well developed, well nourished patient who is awake, in mild kdr distress. The patient generally appears ill and mildly toxic Head/Face: Normocephalic, atraumatic. Eyes: Pupils equal round and reactive to light, extra-ocular motions intact. Lids and lashes normal. Conjunctiva and sclera are non-icteric and not injected. Cornea within normal limits. Periorbital areas with no swelling, redness, or edema. Chest/axilla: Normal chest wall appearance and motion. Nontender with no deformity. No lesions are appreciated. Cardiovascular: Regular rate and rhythm with a normal S1 and S2. No gallops, murmurs, or rubs. Normal PMI, no JVD. No pulse deficits. 20:39 Respiratory: the patient does not display signs of respiratory distress, Respirations: normal, Breath sounds: rales, bronchial sounds, rhonchi, that are mild, are scattered. Vital Signs: 11:39 BP 130 / 53; Pulse 102; Resp 18; Temp 102.4(O); Pulse Ox 97% on R/A; Weight 134.72 kg; eh3 Height 5 ft. 4 in. ; 12:30 BP 129 / 59; Pulse 107; Resp 26; Pulse Ox 97% on R/A; eh3 13:30 BP 126 / 57; Pulse 109; Resp 18; Temp 100.2(O); Pulse Ox 95% on R/A; eh3 14:30 BP 136 / 51; Pulse 121; Resp 20; Temp 99(O); Pulse Ox 95% on R/A; eh3 15:12 Pulse Ox 87% on R/A; eh3 15:30 BP 98 / 50; Pulse 87; Resp 24; Pulse Ox 95% on 4 lpm NC; eh3 16:30 BP 97 / 52; Pulse 95; Resp 22; Pulse Ox 100% on 4 lpm NC; eh3 17:15 BP 108 / 55; Pulse 96; eh3 17:30 BP 107 / 59; Pulse 99; Resp 22; Pulse Ox 100% on 3 lpm NC; eh3 18:30 BP 93 / 53; Pulse 101; Resp 21; Pulse Ox 100% on 3 lpm NC; eh3 19:30 BP 112 / 52; Pulse 96; Resp 25; Pulse Ox 95% on 3 lpm NC; eh3 20:15 BP 120 / 81; Pulse 100; Resp 25; Pulse Ox 96% on 3 lpm NC; eh3 11:39 Body Mass Index 50.98 (134.72 kg, 162.56 cm) 3 MDM: 13:47 Patient medically screened. kdr 20:39 Data reviewed: vital signs, nurses notes, lab test result(s), radiologic studies. kdr 10/11 11:55 Order name: Blood Culture Adult (2) kdr 10/11 11:55 Order name: CBC with Diff; Complete Time: 13:32 kdr 10/11 11:55 Order name: CMP; Complete Time: 13:32 kdr 10/11 11:55 Order name: Lactate w/ 2H reflex if indic.; Complete Time: 13:32 kdr 10/11 11:55 Order name: Protime (+inr); Complete Time: 13:32 kdr 10/11 11:55 Order name: Ptt, Activated; Complete Time: 13:32 kdr 10/11 11:55 Order name: Urinalysis w/ reflexes; Complete Time: 13:32 kdr 10/11 12:56 Order name: Urine Culture EDMS 10/11 17:10 Order name: CBC with Automated Diff EDMS 10/11 17:10 Order name: CBC with Automated Diff EDMS / 17:10 Order name: CBC with Automated Diff EDMS / 17:11 Order name: CBC with Automated Diff EDMS 10/11 17:11 Order name: CBC with Automated Diff EDMS / 17:11 Order name: Comprehensive Metabolic Panel EDMS 10/11 17:11 Order name: Comprehensive Metabolic Panel EDMS 10/11 17:11 Order name: Comprehensive Metabolic Panel EDMS / 17:11 Order name: Comprehensive Metabolic Panel EDMS 10/11 17:11 Order name: Comprehensive Metabolic Panel EDMS 10/11 17:11 Order name: Magnesium EDMS 10/11 17:11 Order name: Magnesium EDMS / 17:11 Order name: Magnesium EDMS / 17:11 Order name: Magnesium EDMS 10/11 17:11 Order name: Magnesium EDMS / 17:23 Order name: Lactate Sepsis 2 HR Follow-up EDMS 10/11 18:57 Order name: Magnesium EDMS / 11:55 Order name: Chest Single View XRAY; Complete Time: 13:32 kdr 10/11 13:54 Order name: CT Stone Protocol kdr 10/11 11:55 Order name: EKG; Complete Time: 11:55 kdr 08 17:07 Order name: CONS Physician Consult EDMS 10/11 17:10 Order name: CONS Physician Consult EDMS 10/11 11:55 Order name: Accucheck; Complete Time: 12:30 kdr 10/11 11:55 Order name: Cardiac monitoring; Complete Time: 12:30 kdr 10/11 11:55 Order name: EKG - Nurse/Tech; Complete Time: 13:10 kdr 10/11 11:55 Order name: IV Saline Lock - Large Bore; Complete Time: 12:30 kdr 10/11 11:55 Order name: Labs collected and sent; Complete Time: 12:30 kdr 10/11 11:55 Order name: O2 Per Protocol; Complete Time: 12:30 kdr 10/11 11:55 Order name: O2 Sat Monitoring; Complete Time: 12:30 kdr 10/11 11:55 Order name: Vital Signs; Complete Time: 12:30 kdr Administered Medications: 12:40 Drug: Acetaminophen PO 1000 mg Route: PO; eh3 13:30 Follow up: Response: Temperature is decreased eh3 12:40 Drug: LevaQUIN IVPB 750 mg Route: IVPB; Site: left antecubital; eh3 14:40 Follow up: Response: No adverse reaction; IV Status: Completed infusion; IV Intake: eh3 250ml 12:40 Drug: NS 0.9% IV 500 ml Route: IV; Rate: bolus; Site: right antecubital; eh3 14:00 Follow up: IV Status: Completed infusion; IV Intake: 500ml eh3 14:33 Drug: morphine IVP or IV 2 mg Route: IVP; Infused Over: 4 mins; Site: right antecubital;eh3 15:30 Follow up: Response: No adverse reaction eh3 16:15 Drug: NS 0.9% IV 1000 ml Route: IV; Rate: 1 bolus; Site: right antecubital; eh3 19:30 Follow up: IV Status: Completed infusion; IV Intake: 1000ml eh3 17:00 Not Given (Patient Refused): Ondansetron IVP 4 mg IVP once; over 2 minutes eh3 Disposition Summary: 10/11/22 13:47 Hospitalization Ordered Hospitalization Status: Inpatient Admission kdr Provider: Kyle Bettencourt Condition: Fair kdr Problem: new kdr Symptoms: have improved kdr Bed/Room Type: Standard kdr Location: Intensive Care Unit(10/11/22 18:34) eb Room Assignment: 1-(10/11/22 18:34) eb Diagnosis - Fever, unspecified kdr - Urosepsis kdr - Cellulitis of left lower limb kdr - Cellulitis of right lower limb kdr - Lymphedema, not elsewhere classified kdr Forms: - Medication Reconciliation Form kdr - SBAR form kdr Signatures: Dispatcher [employer] Art Glaser MD MD kdr Botello, Elizabeth eb Hall, Erin RN RN eh3 Corrections: (The following items were deleted from the chart) 18:34 13:47 Telemetry/MedSurg (Inpatient) kdr eb 18:34 13:47 kdr eb
[2022-10-11] MEDS ORDERED: MORPHINE 2 MG/ML SYR ONE (14:38)
--- NOTE | 2022-10-11 15:04 | RAD REPORT ---
EXAM DESCRIPTION: CT - Stone Protocol - 10/11/2022 2:41 pm CLINICAL HISTORY: Abdominal pain. Fever COMPARISON: 2021 TECHNIQUE: Computed axial tomography of the abdomen pelvis was obtained without oral or IV contrast. Lack of IV and oral contrast limits evaluation of solid organs, appendix, bowel, and vessels. Elizondo l reformatted images were obtained and reviewed. All CT scans are performed using dose optimization technique as appropriate and may include automated exposure control or mA/KV adjustment according to patient size. FINDINGS: Bilateral staghorn calculi kidneys. Mild left hydronephrosis. Left ureteral calculus is no t seen. Mild right hydronephrosis. Ureteral calculus is not seen. A 4 centimeter calculus bladder. Dee prapubic catheter in place. Cholelithiasis. Gallbladder wall does not appear thickened The liver, spleen, pancreas and right adrenal appear grossly normal Left adrenal myelolipoma unchanged There is no evidence of diverticulitis. Moderate amount of stool. No adnexal mass IMPRESSION: Bilateral staghorn calculi kidneys Mild bilateral hydronephrosis
[2022-10-11] MEDS ORDERED: NA CHLORIDE 0.9% 1,000 ML ONE ×2 (16:17→18:47)
[2022-10-11] MEDS ORDERED: TRAMADOL HCL 100 MG PO SCH (17:30)
[2022-10-11] MEDS: NA CHLORIDE 0.9% 1,000 ML IV SCH (18:00)
[2022-10-11] MEDS: ENOXAPARIN 30 MG/0.3 ML SQ SCH (18:00)
--- NOTE | 2022-10-11 18:30 | P.HP ---
Certification for Inpatient Patient admitted to: Inpatient With expected LOS: >2 Midnights Practitioner: I am a practitioner with admitting privileges, knowledge of patient current condition, hospital course, and medical plan of care. Services: Services provided to patient in accordance with Admission requirements found in Title 42 Section 412.3 of the Code of Federal Regulations Patient History Date of Service: 10/11/22 Reason for admission: severe sepsis History of Present Illness: 67yo F, presents to ED with fever x 2days, tachycardia, not feeling well, abdominal pain, and leg redness. PMH: COPD, diastolic CHF, chronic lymphedema, LENO, fibromyalgia, chronic suprapubic catheter, h/o urinary stones Recently admitted here ~3 weeks ago and treated for cellulitis. Discharged on oral clindamycin but stopped due to diarrhea. Also reports some slight stool incontinence in the last few days. Patient somewhat confused during interview, unable to give any specific informat ion / denies any particular symptom that developed and/or worsened in the last several days. Son states patient didn't want to drink anything yesterday and home health nurse today replaced suprapubic catheter and didn't have much urine return. Patient states she had pain when catheter was being replaced, which she attributes to deep insertion of catheter in attempt to get urine return. In the ED, found to have severe sepsis with fever 102, tachycardic, CLIFF, WBC: 28k, Urine concerning for UTI, possible cellulitis, and borderline blood pressure readings with MAPs: ~60-65. Allergies amoxicillin [From Augmentin] Allergy (Severe, Verified 09/16/19 23:49) diarrhea, nausea, vomiting ceftriaxone [From Rocephin] Allergy (Severe, Verified 09/16/19 23:49) Itching/Hives/Rash fentanyl Allergy (Severe, Verified 09/16/19 23:49) Itching/Hives/Rash iodine Allergy (Severe, Verified 09/16/19 23:49) Unknown lincomycin [From Lincocin] Allergy (Severe, Verified 09/16/19 23:49) rashes,headaches pneumococcal vaccine [From Pneumovax 23] Allergy (Severe, Verified 09/16/19 23:49) sick more than a week sulfamethoxazole [From Bactrim] Allergy (Severe, Verified 09/16/19 23:49) Anaphylaxis trifluoperazine [From Stelazine] Allergy (Severe, Verified 09/16/19 23:49) itching and rashes vancomycin Allergy (Severe, Verified 09/16/19 23:49) renal failure meropenem [From Merrem] Allergy (Mild, Verified 10/11/22 18:54) Shortness of breath soap [From Betadine] Allergy (Mild, Verified 09/16/19 23:49) Hives/Rash Sulfa (Sulfonamide Antibiotics) Allergy (Mild, Verified 09/16/19 23:49) Anaphylaxis aloe vera Allergy (Verified 09/16/19 23:49) Itching celery Allergy (Verified 09/16/19 23:49) Nausea/Vomiting Macrolide Antibiotics Allergy (Verified 09/16/19 23:49) Itching/Hives/Rash FLU VACCINE Allergy (Severe, Uncoded 09/16/19 23:49) sick for more than a week aloe vera Allergy (Uncoded 09/16/19 23:49) Unknown hall peppers Allergy (Uncoded 09/16/19 23:49) Nausea/Vomiting celery Allergy (Uncoded 09/16/19 23:49) Unknown FLU VAC Allergy (Uncoded 09/16/19 23:49) Unknown peppers Allergy (Uncoded 09/16/19 23:49) Unknown Home Medications: Benzonatate [Tessalon Perle*] 100 mg PO TID PRN 06/30/21 Furosemide [Lasix] 40 mg PO BID 06/30/21 Lovastatin 20 mg PO BEDTIME 06/30/21 Metoprolol Tartrate 25 mg PO BID 06/30/21 oxyBUTYnin chloride [Oxybutynin Chloride] 5 mg PO BID 06/30/21 Tramadol HCl 100 mg PO Q6H 09/18/22 clindamycin HCL [Cleocin HCl *] 150 mg PO Q8H #20 cap 09/22/22 - Past Medical/Surgical History Diabetic: No -: Lymphedema - bilateral leg -: Morbid obesity with Hx of Lap. Band -: Peripheral neuropathy -: Osteoarthritis -: mild COPD -: mild eczema -: Depression -: Sleep apnea -: CHF -: CRE -: hypertension -: frequent UTIs -: -: Lap band 2008 -: Tonsillectomy and adenoidectomy Psychosocial/ Personal History: Patient is and lives by herself. She has home health. - Family History Father -: Heart disease Mother -: Hypertension, Stroke Notes: erin deirdre syndrome - Social History Smoking Status: Never smoker Alcohol use: No CD- Drugs: No Caffeine use: Yes Place of Residence: Home Review of Systems 10-point ROS is otherwise unremarkable Physical Examination - Physical Exam General: Oriented x2, Mild distress, Confused HEENT: EOMI, Sclerae nonicteric Neck: Supple, No LAD Respiratory: Clear to auscultation bilaterally, Diminished Cardiovascular: Regular rate/rhythm, Edema (chronic lymphedema, lower legs wra pped) Capillary refill: <2 Seconds Gastrointestinal: Soft and benign, Non-distended, Tenderness (mild suprapubic tenderness) Musculoskeletal: No clubbing, No contractures Integumentary: Skin breakdown (macerated skin, superficial ulcerations of b/l buttocks extending to gluteal folds), Erythema (lateral aspect of left leg extending up from ankle / wrapped dressing) Neurological: Normal speech, Cranial nerves 3-12 intact Urinary: Suprapubic catheter (dark urine in bag) - Studies Laboratory Data (last 24 hrs) 10/11/22 10/11/22 10/11/22 12:10 12:10 12:10 WBC 28.20 H Hgb 11.6 L Hct 37.2 Plt Count 280 PT 14.2 H INR 1.29 APTT 38.3 H Sodium 134 L Potassium 3.0 L BUN 16 Creatinine 1.55 H Glucose 174 H Total Bilirubin 0.9 AST 12 L ALT 11 L Alkaline Phosphatase 70 Assessment and Plan - Advance Directives Does patient have a Living Will: No Does patient have a Durable POA for Healthcare: No Physician Review Additional Text: Problem List Severe sepsis secondary to UTI and cellulitis chronic suprapubic catheter chronic bladder calculi, and b/l staghorn calculi chronic lymphedema chronic COPD chronic diastolic CHF LENO morbid obesity fibromyalgia admit to ICU receiving IVF - 1L bolus during my exam. Patient had one BP <90/60, but was asleep and after pain medication if does not respond to fluids, will need central line and pressors continue IVF suspected source urine vs skin chronic suprapubic catheter, urine is chronically "dirty", has purple bag syndrome recent admission for cellulitis, pt stopped antibiotics due to side effects, superficial ulcers / erythema of buttocks, and erythema up lateral aspect of left leg patient did not allow lymphedema wraps to be taken down, adamant that there are no wounds on feet - son agreed unable to fully inspect/evaluate buttock wounds due to discomfort and inability to maintain patient on side ID consulted given severity of presentation and long list of allergies patient reports allergy to merrem and "almost " - EMR notes mild redness/shortness of breath she tolerated ertapenem just fine that hospitalization vancomycin listed as allergy "renal failure", patient states shes ok to take vancomycin, just not with "that one antibiotic" she couldn't think of - suspect zosyn if she developed renal failure home tramadol ordered tylenol for fever strict i/o's Code: DNR - confirmed with patient; son at bedside Dispo: ICU, hospitalization for several days Time Spent Managing Pts Care (In Minutes): 75
[2022-10-11] MEDS ORDERED: ENOXAPARIN 30 MG/0.3 ML SQ ONE (18:47)
[2022-10-11] MEDS ORDERED: TRAMADOL HCL 50 MG TAB PO ONE (18:56)
[2022-10-11] MEDS ORDERED: VANCOMYCIN 3 GM in NA CHLORIDE 0.9% 500 ML IVPB ONE (19:00)
[2022-10-11] MEDS ORDERED: TRAMADOL HCL 50 MG TAB ONE (19:06)
[2022-10-11] MEDS ORDERED: ERTAPENEM SODIUM 1 GM VIAL IVPB SCH (20:00)
[2022-10-11] MEDS ORDERED: Meropenem 1,000 MG in NA CHLORIDE 0.9% 100 ML IV SCH (21:00)
[2022-10-11] MEDS ORDERED: DOXYCYCLINE 100 MG in NA CHLORIDE 0.9% 100 ML IVPB SCH (21:00)
[2022-10-11] MEDS: ERTAPENEM NA 1 GM in NA CHLORIDE 0.9% 100 ML IVPB SCH (22:13)
[2022-10-11] MEDS: oxyBUTYnin chloride 5 MG TAB PO SCH (22:13)
[2022-10-11] MEDS: TRAMADOL HCL 50 MG TAB PO SCH (23:51)
--- NOTE | 2022-10-12 00:18 | P.CNS ---
Date of Consult: 10/11/22 PC: I was asked to see this patient who has elevated white cell count, and no obvious source of infection. HPC: Patient has not felt well she says for the last few days. Is morbidly obese. Has chronic lymphedema of her legs. PSHx: Previous lap band, it has not been adjusted in over 12 years. Has a suprapubic catheter. PMHx: Diabetes, morbid obesity, Social Hx: Numerous allergies Sys R: No cough, wheeze, shortness of breath. No chest pain or palpitations. Says it does not feel like she has a urinary tract infection like she usually does, but she cannot really tell. [Apparently was supposed to have some stones removed from her kidney, but due to her size, was not eligible for lithotripsy and the risk of an open procedure was ruled to high. O/E: Awake alert vital signs are stable, not in any acute distress, we had a long conversation HEENT: Not jaundiced Chest: Air entry equal bilaterally Abd: Soft nontender [place]: Has chronic lymphedema, but no area of any abscess, or skin necrosis Data: Elevated white cell count, CT scan nonspecific Impression: Abdomen is benign, legs are not the source of her white cell count Plan: We will follow with you, most likely from urinary source, awaiting cultures.
[2022-10-12] MEDS ORDERED: MAGNESIUM SULFATE 1 gm IVPB 1 GM/100 ML BAG IV ONE (02:00)
[2022-10-12 05:14] LABS: Absolute Lymphocytes (CBC) 0.5 K/uL (0.7-4.9); Hematocrit 30.7 % (36.0-45.0); Lymphocytes % 2.4 % (15.3-44.8); MPV 8.3 fL (7.6-11.3); Platelets 205 thou/uL (152-406); RBC Red Blood Cell Count 3.65 M/uL (3.86-4.86)
[2022-10-12 05:35] LABS: ALT/SGPT < 10 U/L (13-56); AST/SGOT 16 U/L (15-37); Albumin 1.9 g/dL (3.4-5.0); Alkaline Phosphatase 65 U/L (45-117); BUN Blood Urea Nitrogen 20 mg/dL (7-18); Bicarbonate 27 mEq/L (21-32); Bilirubin Total 0.4 mg/dL (0.2-1.0); Glomerular Filtration Rate 41 ml/min (=/>90); Glucose Level 118 mg/dL (74-106); Magnesium 2.1 mg/dL (1.6-2.4); Potassium 2.9 mEq/L (3.5-5.1); Protein, Total 6.1 g/dL (6.4-8.2); Sodium Level 136 mEq/L (136-145)
[2022-10-12] MEDS: NA CHLORIDE 0.9% 1,000 ML IV SCH (06:39)
[2022-10-12] MEDS: TRAMADOL HCL 50 MG TAB PO SCH ×3 (06:39→18:00)
--- NOTE | 2022-10-12 06:48 | P.PN ---
Date of Service: 10/12/22 Subjective: reports generally not feeling well, but more alert Tmax of 102.4 yesterday, currently afebrile no acute events overnight; BP improved ROS: 10 point ROS as noted above, otherwise negative Physical Exam: GEN: Oriented x2, fatigued appearing HEENT: Normal conjunctiva, sclera anicteric CV: Regular rate and rhythm, chronic lymphedema, lower legs wrapped Pulm: Nonlabored respirations on 3L NC, diminished at bases bilaterally ABD: Soft, mild suprapubic tenderness, nondistended Integumentary: macerated skin, superficial ulcerations of b/l buttocks extending to gluteal folds; Erythema of lateral aspect of left leg extending up from ankle / dressing in place Neuro: Normal speech, normal affect vitals reviewed Problem List Severe sepsis secondary to UTI and possible cellulitis chronic suprapubic catheter chronic bladder calculi, and b/l staghorn calculi chronic lymphedema CLIFF chronic COPD chronic diastolic CHF LENO morbid obesity fibromyalgia Severe sepsis secondary to UTI and cellulitis chronic suprapubic catheter chronic bladder calculi, and b/l staghorn calculi CT abdomen (10/11): Bilateral staghorn calculi kidneys, Mild bilateral hydronephrosis Ulceration involves the tissues of the buttocks with inflammatory changes in the fat extending to the gluteal crease. No fluid-filled abscess. No air. chronic suprapubic catheter, urine is chronically "dirty", has purple bag syndrome UA: +LE, +RBC >50, +WBC >50, +WBC clumps, 20-50 bacteria urine culture: pending Blood culture: pending ID consulted given severity of presentation and long list of allergies patient reports allergy to merrem and "almost " - EMR notes mild redness/SOB she tolerated ertapenem just fine that hospitalization vancomycin listed as allergy "renal failure", patient states shes ok to take vancomycin, just not with "that one antibiotic" she couldn't think of - suspect zosyn if she developed renal failure Continue Vancomycin and Ertapenem for now (10/11-) Tmax: 102.4 (10/11) - currently afebrile, +leukocytosis improving (28.2 -> 19.7) cont PRN home tramadol strict i/o's chronic lymphedema recent admission for cellulitis, pt stopped antibiotics due to side effects, superficial ulcers / erythema of buttocks, and erythema up lateral aspect of left leg patient did not allow lymphedema wraps to be taken down, adamant that there are no wounds on feet - son agreed unable to fully inspect/evaluate buttock wounds due to discomfort and inability to maintain patient on side General surgery consulted - Dr. Perdomo no surgical intervention at this time - will follow CLIFF CT abdomen (10/11): Bilateral staghorn calculi kidneys and Mild bilateral hydronephrosis Nephrology consutled continue IVF Monitor renal function improving chronic COPD chronic diastolic CHF LENO morbid obesity fibromyalgia Confirm home medications, Restart as appropriate VTE: Lovenox Code: DNR Dispo: Home potential downgrade from ICU today
[2022-10-12] MEDS ORDERED: POTASSIUM CL SA 10 MEQ TAB PO ONE ×4 (07:00→21:30)
[2022-10-12] MEDS: ENOXAPARIN 30 MG/0.3 ML SQ SCH (08:32)
[2022-10-12] MEDS: oxyBUTYnin chloride 5 MG TAB PO SCH ×2 (08:32→21:34)
[2022-10-12] MEDS ORDERED: POTASSIUM CL 40 MEQ in NA CHLORIDE 0.9% 500 ML IV ONE (12:15)
[2022-10-12] MEDS: POTASSIUM CL IV SCH ×4 (13:41→16:56)
[2022-10-12] MEDS: RINGERS LACTATE IV SCH ×4 (13:41→16:56)
[2022-10-12] MEDS ORDERED: Ringers Lactate 1,000 ML IV ONE (13:51)
[2022-10-12] MEDS: BENZONATATE 100 MG CAP PO PRN ×2 (14:13→21:39)
--- NOTE | 2022-10-12 15:30 | CON ---
Date of Consultation: 10/12/2022 Reason For Consultation: Elevated BUN and creatinine, kidney stone, sepsis. History Of Present Illness: This is a pleasant 67-year-old female with significant past medical history of lymphoedema; COPD; obstructive sleep apnea; congestive heart failure; diastolic dysfunction; fibromyalgia; bilateral kidney stone, status post right nephrostomy, percutaneous, placed back in August 2021, remove accidentally in February 2022 by the patient. The patient was in her regular state of health. Apparently, the patient started having weakness and erythema on both lower extremities for the last few weeks that got worse and started having chills. For that reason, reported to the hospital. Upon arrival to the hospital, found to have elevation in BUN and creatinine, hypotension and UTI. For that reason, the patient was admitted. The patient was on sepsis protocol. Upon arrival to the hospital, the patient's creatinine was elevated. For that reason, we have been consulted. Creatinine was 1.5. Workup show staghorn stone, bilateral hydronephrosis and hypokalemia. The patient was started on hydration. Kidney function has been improved, but the patient continued to have hypokalemia. Past Medical History: Include 1. COPD. 2. Congestive heart failure, diastolic. 3. Obstructive sleep apnea. 4. Lymphedema. 5. Fibromyalgia. 6. Kidney stone bilateral with hydronephrosis, status post suprapubic catheter and right nephrostomy. Allergies: AMOXICILLIN, CEFTRIAXONE, FENTANYL, SULFA, TRIFLUOPERAZINE, VANCOMYCIN, MEROPENEM, MACROBID. Home Medications: Include Lasix, levothyroxine, oxybutynin, tramadol, clindamycin. Family History: Positive for heart disease and hypertension. Social History: Lives alone. Denied smoking. Denied drinking. Denied drugs abuse. Review of Systems: Head and Neck: Have weakness, has headache. GI: No nausea, no vomiting. : Has suprapubic catheter. 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 Respiratory: No shortness of breath. Cardiovascular: Has leg swelling. Has lymphedema. Endocrine: No polydipsia. Skin: No rash. Neuro: Has weakness. Musculoskeletal: Low back pain. Physical Examination: General: When I saw the patient, the patient lying in bed, not on any distress. Vital Signs: Blood pressure 109/43, pulse of 89, afebrile. Chest: Clear to auscultation. Heart: S1, S2. Regular. Abdomen: Soft. The patient morbidly obese, could not appreciate any organomegaly. Extremities: Patient has lymphedema with stocking dressing. Neuro: Alert. No focality. Laboratory Data: Upon admission: Sodium 134, potassium of 3, creatinine 1.5, BUN 16, GFR of 36. Today lab data: Sodium 136, potassium 2.9, bicarb 27, BUN of 20, creatinine 1.4, GFR of 41, calcium 7.8, magnesium 2.1, albumin 1.9. WBC 19.7, hemoglobin 9.8. Urinalysis positive for infection and rbc's more than 50, wbc's more than 50. Urine culture still pending. CT abdomen showing hydronephrosis with staghorn, bilateral. Current Medications: The patient on include ertapenem, vancomycin. Normal saline. Assessment And Plan: Acute kidney injury secondary to toxic acute tubular necrosis on chronic kidney disease secondary to obstructive uropathy superimposed with poor perfusion, acute tubular necrosis secondary to sepsis. I doubt that the hydronephrosis contribute to any of the recurrent acute kidney injury. 1. I am going to continue the patient on her fluid resuscitation. Given the presence of staghorn and hypokalemia, I am going to go ahead and change IV fluid to LR and we will follow up the patient. 2. Hypokalemia. We will supplement the patient. 3. Hypomagnesemia. We will supplement. 4. Anemia with the presence of acute kidney injury. I am going to send for serum protein electrophoresis. 5. Urinary tract infection complicated with staghorn and obstruction. Continue current antibiotic. The patient may need to be switch to Kenalog for better penetration unless the culture show differently. 6. Hyponatremia, depletional. We will start IV fluid. We will follow up. 7. Staghorn kidney stone. We will try to alkalize the urine. I going to start the patient on LR. We will add potassium acetate to it and I going to start the patient on sodium bicarb and we will follow up the patient. Time spent examining the patient [id number], reviewing data, lab and radiology, placing order, discussing the case with the collection team lead including nursing staff in ICU hospitalist is more than 75 minutes. BUCK Voice ID: [id number] Report ID: [id number] MTDD
[2022-10-12] MEDS: HYDROCODONE/APAP 5/325 MG TAB PO PRN ×2 (17:20→23:03)
[2022-10-12 17:28] LABS: Urine Bacteria 20-50 /HPF (<20); Urine RBC >50 /HPF (None Seen); Urine WBC Clump Many /HPF (None Seen)
[2022-10-12 17:36] LABS: UR PROTEIN 247.5 mg/dL (<11.9); Urine Protein/Creatinine Ratio 3.13 ratio (<0.15)
[2022-10-12] MEDS: ERTAPENEM NA 1 GM in NA CHLORIDE 0.9% 100 ML IVPB SCH (19:55)
[2022-10-12] MEDS: SODIUM BICARB 325 MG TAB PO SCH (21:34)
[2022-10-13] MEDS: POTASSIUM CL IV SCH ×8 (00:03→19:57)
[2022-10-13] MEDS: RINGERS LACTATE IV SCH ×8 (00:03→19:57)
[2022-10-13 05:01] LABS: Absolute Lymphocytes (CBC) 0.4 K/uL (0.7-4.9); Hematocrit 29.7 % (36.0-45.0); Lymphocytes % 3.8 % (15.3-44.8); MCV 83.4 fL (80-100); MPV 8.3 fL (7.6-11.3); Platelets 219 thou/uL (152-406); RBC Red Blood Cell Count 3.56 M/uL (3.86-4.86)
[2022-10-13 05:44] LABS: AST/SGOT 11 U/L (15-37); Albumin 1.9 g/dL (3.4-5.0); Alkaline Phosphatase 70 U/L (45-117); BUN Blood Urea Nitrogen 25 mg/dL (7-18); Bicarbonate 26 mEq/L (21-32); Bilirubin Total 0.3 mg/dL (0.2-1.0); Ferritin 158.1 ng/mL (8-388); Glomerular Filtration Rate 35 ml/min (=/>90); Glucose Level 153 mg/dL (74-106); Phosphorus 3.2 mg/dL (2.5-4.9); Potassium 3.5 mEq/L (3.5-5.1); Sodium Level 136 mEq/L (136-145); Transferrin 133 mg/dL (200-360); Uric Acid 6.6 mg/dL (2.6-6.0)
[2022-10-13 05:47] LABS: ALT/SGPT < 10 U/L (13-56)
[2022-10-13] MEDS: TRAMADOL HCL 50 MG TAB PO SCH ×5 (06:00→23:56)
--- NOTE | 2022-10-13 06:37 | P.PN ---
Date of Service: 10/13/22 Subjective: converted to new onset a-fib yesterday, HR 80-90s BP low to low-normal today no allergic reaction to antibiotics seen, +afebrile ongoing several weeks of intermittent pain/tingling/numbness of left fingers/thumb, unchanged ROS: 10 point ROS as noted above, otherwise negative Physical Exam: GEN: Oriented x3, fatigued appearing HEENT: Normal conjunctiva, sclera anicteric CV: Irregularly Irregular rhythm with HR: 80s, chronic lymphedema, lower legs wrapped Pulm: Nonlabored respirations on 3L NC, diminished at bases bilaterally, +wheeze ABD: Soft, mild suprapubic tenderness, nondistended, suprapubic cath in place Integumentary: macerated skin, superficial ulcerations of b/l buttocks extending to gluteal folds; Erythema of lateral aspect of left leg extending up from ankle / dressing in place Neuro: Normal speech, normal affect, diminished sensation at tips of left fingers, extends to wrist/base of thumb vitals reviewed Problem List Severe sepsis secondary to UTI and possible cellulitis chronic suprapubic catheter chronic bladder calculi, and b/l staghorn calculi chronic lymphedema L hand paresthesia A-fib, new onset CLIFF chronic COPD chronic diastolic CHF LENO morbid obesity fibromyalgia h/o PE (June 2021) Severe sepsis secondary to UTI and cellulitis chronic suprapubic catheter chronic bladder calculi, and b/l staghorn calculi CT abdomen (10/11): Bilateral staghorn calculi kidneys, Mild bilateral hydronephrosis Ulceration involves the tissues of the buttocks with inflammatory changes in the fat extending to the gluteal crease. No fluid-filled abscess. No air. 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 Perdomo no surgical intervention at this time - will follow less likely source of infection PT consult A-fib, new onset went into a-fib 10/12 afternoon, , rate controlled Doesn't want anticoagulation d/t previous bleeding complications Cardiology consulted Echo ordered CLIFF CT abdomen (10/11): Bilateral staghorn calculi kidneys and Mild bilateral hydronephrosis Nephrology consutled continue IVF Monitor renal function - slightly worse 8/6 L hand paresthesia >1 month of symptoms intermittent does not extend past wrist mostly affecting thumb and first 2-3 digits suspect carpal tunnel outpatient f/u, NCS/EMG chronic COPD chronic diastolic CHF LENO morbid obesity fibromyalgia Confirm home medications, Restart as appropriate VTE: Lovenox Code: DNR Dispo: Home, ~8 potential downgrade from ICU today, pending blood pressure / afib
[2022-10-13] MEDS: SODIUM BICARB 325 MG TAB PO SCH ×2 (08:51→20:01)
[2022-10-13] MEDS: ENOXAPARIN 40 MG/0.4 ML SQ SCH (08:51)
[2022-10-13] MEDS: oxyBUTYnin chloride 5 MG TAB PO SCH ×3 (08:51→20:00)
[2022-10-13] MEDS ORDERED: POTASSIUM CL SA 10 MEQ TAB PO ONE ×2 (09:00→12:00)
[2022-10-13] MEDS: HYDROCODONE/APAP 5/325 MG TAB PO PRN ×2 (09:00→16:39)
[2022-10-13] MEDS ORDERED: KCL 20 MEQ/100 mL IVPB 20 MEQ/100 ML BAG IV SCH (10:00)
--- NOTE | 2022-10-13 11:43 | PN ---
Date of Progress Note: 10/13/2022 Subjective: The patient was admitted with acute kidney injury secondary to sepsis with obstructive uropathy, the patient had hydro, had nephrostomy before, has suprapubic catheter. The patient was started on IV fluid with fluid resuscitation. Kidney function has been plateaued. Physical Examination: Vital Signs: When I saw the patient; blood pressure 96/63, pulse of 86, afebrile. The patient had good urine output of 1100. Chest: Decreased entry bilateral base. Heart: S1, S2. Regular. Abdomen: Morbidly obese. Could not appreciate any organomegaly. Has suprapubic catheter. Extremity: Compression dressing, both lower extremities. Laboratory Data: Sodium 136, potassium 3.5, bicarb 26, BUN 25, creatinine 1.5, GFR of 35, uric acid 6.6, calcium 8.1, phosphorus 3.2. Iron saturation 7.5, ferritin 158. Serum protein electrophoresis pending. PTH 168, TSH 2.1, PC ratio 3.1. Hemoglobin 9.6, stable. Current Medications: The patient on include; 1. Ertapenem. 2. Vancomycin. 3. Lovenox. 4. Sodium bicarb 650 b.i.d. 5. Zofran. 6. KCl. 7. Oxybutynin. Assessment And Plan: 1. Acute kidney injury on chronic kidney disease secondary to poor perfusion ATN, toxic ATN. I am going to continue hydration and we will continue to monitor the patient. 2. Chronic kidney disease secondary to chronic obstructive uropathy/recurrent urinary tract infection with acute kidney injury as above. 3. Nephrotic range of proteinuria, possible secondary to FSGS secondary to chronic obstructive uropathy with the presence of the anemia. I am going to go ahead and send for serum protein electrophoresis and the serology, and we will follow up. 4. Iron deficiency anemia with the presence of active infection. I do not see the need to start on any IV iron to avoid any worsening of the infection with hepsedin induced Inflamatory response . 5. Bilateral hydro secondary to staghorn stone. We will continue alkalinizing the urine. I do not see the need for Urology evaluation. She going to need follow up as outpatient. 6. Hypokalemia. We will supplement. 7. Hyponatremia secondary to depletional. We will continue hydration. 8. Staghorn stone and urinary tract infection. Consider switching to quinolone for better penetration. We will discuss with primary. Time spent examining the patient [id number], reviewing data, lab and radiology, placing order, discussing the case with the rock climbing team member including hospitalist and nursing staff more than 35 minutes. BUCK Voice ID: [id number] Report ID: [id number] CRIS
[2022-10-13] MEDS: VANCOMYCIN 2 GM in NA CHLORIDE 0.9% 500 ML IVPB SCH (19:57)
[2022-10-13] MEDS: ERTAPENEM NA 1 GM in NA CHLORIDE 0.9% 100 ML IVPB SCH (19:58)
[2022-10-13] MEDS: BENZONATATE 100 MG CAP PO PRN (20:00)
[2022-10-13] MEDS ORDERED: Ringers Lactate 500 ML IV ONE (23:28)
[2022-10-14] MEDS ORDERED: Ringers Lactate 1,000 ML IV ONE (00:08)
[2022-10-14] MEDS: HYDROCODONE/APAP 5/325 MG TAB PO PRN ×2 (03:19→13:51)
[2022-10-14 04:58] LABS: Absolute Lymphocytes (CBC) 0.5 K/uL (0.7-4.9); Hematocrit 28.9 % (36.0-45.0); Lymphocytes % 5.5 % (15.3-44.8); MCV 83.2 fL (80-100); MPV 8.3 fL (7.6-11.3); Platelets 216 thou/uL (152-406); RBC Red Blood Cell Count 3.47 M/uL (3.86-4.86)
[2022-10-14 05:15] LABS: Albumin 1.7 g/dL (3.4-5.0); Magnesium 2.1 mg/dL (1.6-2.4); Phosphorus 2.5 mg/dL (2.5-4.9); Potassium 4.5 mEq/L (3.5-5.1)
[2022-10-14] MEDS: TRAMADOL HCL 50 MG TAB PO SCH ×3 (05:21→17:38)
[2022-10-14 05:25] VITALS: BMI 53.4
--- NOTE | 2022-10-14 06:41 | P.PN ---
Date of Service: 10/14/22 Subjective: feels groggy, fatigued today denies chest pain, no palpitations BP remains borderline low to low-normal agreeable to having legs looked at today, +dressing change, +pictures taken ROS: 10 point ROS as noted above, otherwise negative Physical Exam: GEN: Oriented x3, fatigued appearing HEENT: Normal conjunctiva, sclera anicteric CV: Regular rate and rhythm with HR: 80s, chronic lymphedema, lower legs wrapped Pulm: Nonlabored respirations on 2L NC, diminished at bases bilaterally, +wheeze ABD: Soft, mild suprapubic tenderness, nondistended, suprapubic cath in place Integumentary: macerated skin, superficial ulcerations of b/l buttocks extending to gluteal folds; Erythema of lateral aspect of left leg extending up from ankle / dressing in place Neuro: Normal speech, normal affect, diminished sensation at tips of left fingers, extends to wrist/base of thumb vitals reviewed Problem List Severe sepsis secondary to UTI and possible cellulitis chronic suprapubic catheter chronic bladder calculi, and b/l staghorn calculi chronic lymphedema L hand paresthesia A-fib, new onset CLIFF on CKD Iron deficiency anemia chronic COPD chronic diastolic CHF LENO morbid obesity fibromyalgia h/o PE (June 2021) Severe sepsis secondary to UTI and cellulitis chronic suprapubic catheter chronic bladder calculi, and b/l staghorn calculi CT abdomen (10/11): Bilateral staghorn calculi kidneys, Mild bilateral hydronephrosis Ulceration involves the tissues of the buttocks with inflammatory changes in the fat extending to the gluteal crease. No fluid-filled abscess. No air. 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 Perdomo no surgical intervention at this time - will follow less likely source of infection wound care consulted PT consult A-fib, new onset went into a-fib 10/12 afternoon, rate controlled Doesn't want anticoagulation d/t previous bleeding complications Cardiology consulted Echo (10/14): EF: 50%, left atrial enlargement, atrial fibrillation, mild MR CLIFF on CKD CT abdomen (10/11): Bilateral staghorn calculi kidneys and Mild bilateral hydronephrosis will need f/u with urology outpatient Nephrology consutled continue IVF L hand paresthesia >1 month of symptoms intermittent does not extend past wrist mostly affecting thumb and first 2-3 digits suspect carpal tunnel outpatient f/u, NCS/EMG Iron deficiency anemia would likely benefit from iron supplementation once infection improves / resolves monitor H&H. transfuse if hgb < 7 chronic COPD chronic diastolic CHF LENO morbid obesity fibromyalgia Confirm home medications, Restart as appropriate VTE: Lovenox Code: DNR Dispo: Home, ~10/16-10/17 potential downgrade from ICU today, pending blood pressure / afib
[2022-10-14 07:23] LABS: Rheumatoid Factor NEG (NEG)
[2022-10-14] MEDS: ENOXAPARIN 40 MG/0.4 ML SQ SCH (08:14)
[2022-10-14] MEDS: SODIUM BICARB 325 MG TAB PO SCH ×2 (08:14→21:03)
--- NOTE | 2022-10-14 09:13 | P.CNS ---
Date of Consult: 10/14/22 Reason for Consult: sepsis, uti, MDRO Chief Complaint: severe sepsis History of Present Illness: Patient is a 67 yo female with a past medical history of CHF, COPD, lymphedema, fibromyalgia, suprapubic catheter who presented to the ED with complaints of fever, malaise and erythema of legs. Of note, patient has been recently hospitalized and has a history of multi-drug resistant urine infections. She was admitted for severe sepsis secondary to cellulitis / uti. Allergies amoxicillin [From Augmentin] Allergy (Severe, Verified 09/16/19 23:49) diarrhea, nausea, vomiting ceftriaxone [From Rocephin] Allergy (Severe, Verified 09/16/19 23:49) Itching/Hives/Rash fentanyl Allergy (Severe, Verified 09/16/19 23:49) Itching/Hives/Rash iodine Allergy (Severe, Verified 09/16/19 23:49) Unknown lincomycin [From Lincocin] Allergy (Severe, Verified 09/16/19 23:49) rashes,headaches pneumococcal vaccine [From Pneumovax 23] Allergy (Severe, Verified 09/16/19 23:49) sick more than a week sulfamethoxazole [From Bactrim] Allergy (Severe, Verified 09/16/19 23:49) Anaphylaxis trifluoperazine [From Stelazine] Allergy (Severe, Verified 09/16/19 23:49) itching and rashes vancomycin Allergy (Severe, Verified 09/16/19 23:49) renal failure meropenem [From Merrem] Allergy (Mild, Verified 10/11/22 18:54) Shortness of breath soap [From Betadine] Allergy (Mild, Verified 09/16/19 23:49) Hives/Rash Sulfa (Sulfonamide Antibiotics) Allergy (Mild, Verified 09/16/19 23:49) Anaphylaxis aloe vera Allergy (Verified 09/16/19 23:49) Itching celery Allergy (Verified 09/16/19 23:49) Nausea/Vomiting Macrolide Antibiotics Allergy (Verified 09/16/19 23:49) Itching/Hives/Rash FLU VACCINE Allergy (Severe, Uncoded 09/16/19 23:49) sick for more than a week aloe vera Allergy (Uncoded 09/16/19 23:49) Unknown hall peppers Allergy (Uncoded 09/16/19 23:49) Nausea/Vomiting celery Allergy (Uncoded 09/16/19 23:49) Unknown FLU VAC Allergy (Uncoded 09/16/19 23:49) Unknown peppers Allergy (Uncoded 09/16/19 23:49) Unknown Home medications list reviewed: Yes Home Medications: Benzonatate [Tessalon Perle*] 100 mg PO TID PRN 06/30/21 Furosemide [Lasix] 40 mg PO BID 06/30/21 Lovastatin 20 mg PO BEDTIME 06/30/21 Metoprolol Tartrate 25 mg PO BID 06/30/21 oxyBUTYnin chloride [Oxybutynin Chloride] 5 mg PO BID 06/30/21 Tramadol HCl 100 mg PO Q6H 09/18/22 clindamycin HCL [Cleocin HCl *] 150 mg PO Q8H #20 cap 09/22/22 - Past Medical/Surgical History Diabetic: No -: Lymphedema - bilateral leg -: Morbid obesity with Hx of Lap. Band -: Peripheral neuropathy -: Osteoarthritis -: mild COPD -: mild eczema -: Depression -: Sleep apnea -: CHF -: CRE -: hypertension -: frequent UTIs -: -: Lap band 2008 -: Tonsillectomy and adenoidectomy Psychosocial/ Personal History: Patient is and lives by herself. She has home health. - Family History Father Medical History: Heart disease Mother Medical History: Hypertension, Stroke Notes: erin deirdre syndrome - Social History Smoking Status: Unknown if ever smoked Alcohol use: No CD- Drugs: No Caffeine use: Yes Place of Residence: Home Review of Systems General: Weakness, Malaise Gastrointestinal: Other (decreased appetite) Genitourinary: As per HPI Musculoskeletal: Hand Pain (left hand) Physical Examination Temp Pulse Resp BP Pulse Ox 97.5 F 82 14 107/59 L 97 10/14/22 03:00 10/14/22 06:00 10/14/22 06:00 10/14/22 06:00 10/14/22 06:00 General: Alert, In no apparent distress, Oriented x3 HEENT: Atraumatic, Normocephalic Neck: JVD not distended Respiratory: Normal air movement, Diminished Cardiovascular: Edema (BLE), Irregular heart rate/rhythm Gastrointestinal: Normal bowel sounds Integumentary: Other (stasis dermatitis BLE. Lymphedema BLE. ) Urinary: Suprapubic catheter Laboratory Data - Reviewed Microbiology Data - Reviewed Imagings Data: - Reviewed Conclusions/Impression: Problem List Severe Sepsis Urinary Tract Infection Lymphedema vs Cellulitis Suprapubic catheter, chronic Atrial fibrillation Morbid Obesity Acute on chronic kidney disease Anemia, Iron deficiency COPD CHF Severe Sepsis Secondary to Urinary Tract Infection and Bilateral Lower Extremity Cellulitis - chronic suprapubic catheter - Urine culture 10/11: 3+ organisms detected ; >100,000 CFU/mL - Blood cultures 10/11: No growth to date - On Ertapenem and Vancomycin (10/11-) - Leukocytosis resolved. Afebrile. - CT abdomen 10/11: "Bilateral staghorn calculi kidneys. Mild bilateral hydronephrosis" Recommendations Due to extensive allergy history and history of MDR infections, patient was sta rted on Ertapenem and Vancomycin. She has been improving on these two antibiotics. We will continue with Ertapenem and Vancomycin for now. Monitor WBC and fever trends. BLE cellulitis: Apply silvadene topical to bilateral feet and lower legs Keep legs elevated Case discussed with Sarah Killian
[2022-10-14] MEDS ORDERED: SILVER SULFADIAZINE 1% 25 GM TOP ONE (12:00)
--- NOTE | 2022-10-14 13:05 | EKG ---
Test Date: 2022-10-12 Test Time: 17:46:00 Felting Machine Operator: ANDREINA MEASUREMENT RESULTS: Intervals: Rate: 96 MD: QRSD: 84 QT: 354 QTc: 447 [place]: P: MD: QRS: -5 T: 35 INTERPRETIVE STATEMENTS: Atrial fibrillation with premature ventricular or aberrantly conducted complexes Low voltage QRS Abnormal ECG Compared to ECG 10/11/2022 13:14:10 Ventricular premature complex(es) now present Sinus tachycardia no longer present Electronically Signed On 10-14-22 13:03:37 CDT by Terry Ann
--- NOTE | 2022-10-14 13:11 | EKG ---
Test Date: 2022-10-11 Test Time: 13:14:10 Complex Human Resources Manager: SHIMON MEASUREMENT RESULTS: Intervals: Rate: 108 OR: 158 QRSD: 90 QT: 310 QTc: 415 [place]: P: 51 OR: 158 QRS: -24 T: 37 INTERPRETIVE STATEMENTS: Sinus tachycardia Low voltage QRS Borderline ECG Compared to ECG 10/11/2022 12:47:28 Myocardial infarct finding no longer present Electronically Signed On 10-14-22 13:07:17 CDT by Terry Ann
--- NOTE | 2022-10-14 13:11 | EKG ---
Test Date: 2022-10-11 Test Time: 12:47:28 Biomedical Scientist: SHIMON MEASUREMENT RESULTS: Intervals: Rate: 127 SC: 180 QRSD: 72 QT: 308 QTc: 447 [place]: P: 12 SC: 180 QRS: -14 T: 29 INTERPRETIVE STATEMENTS: Sinus rhythm Low voltage QRS Septal infarct, age undetermined Abnormal ECG Compared to ECG 09/18/2022 16:11:19 Myocardial infarct finding now present Atrial premature complex(es) no longer present Ventricular premature complex(es) no longer present ST (T wave) deviation no longer present Electronically Signed On 10-14-22 13:07:58 CDT by Terry Ann
[2022-10-14] MEDS: POTASSIUM CL IV SCH ×4 (13:43→21:22)
[2022-10-14] MEDS: RINGERS LACTATE IV SCH ×4 (13:43→21:22)
--- NOTE | 2022-10-14 14:04 | ECHO ---
HEIGHT: 5 ft 4 in WEIGHT: 311 lb 0 oz DATE OF STUDY: 10/14/[address]: Ramesh Cisneros NP 2-DIMENSIONAL: YES M.MODE: YES DOPPLER: YES COLOR FLOW: YES TDS: YES PORTABLE: YES DEFINITY: BUBBLE STUDY: DIAGNOSIS: NEW ONSET ATRIAL FIBRILLATION CARDIAC HISTORY: CATHERIZATION: SURGERY: PROSTHETIC VALVE: PACEMAKER: MEASUREMENTS (cm) DIASTOLIC (NORMALS) SYSTOLIC (NORMALS) IVSd 1.0 (0.6-1.2) LA Diam 4.2 (1.9-4.0) LVEF 50% LVIDd 3.9 (3.5-5.7) LVIDs 2.9 (2.0-3.5) %FS 25% LVPWd 1.2 (0.6-1.2) Ao Diam 2.6 (2.0-3.7) 2 DIMENSIONAL ASSESSMENT: RIGHT ATRIUM: NORMAL LEFT ATRIUM: ENLARGED RIGHT VENTRICLE: NORMAL LEFT VENTRICLE: NORMAL TRICUSPID VALVE: NORMAL MITRAL VALVE: MILD MITRAL REGURGITATION PULMONIC VALVE: NORMAL AORTIC VALVE: NORMAL PERICARDIAL EFFUSION: NONE AORTIC ROOT: NORMAL LEFT VENTRICULAR WALL MOTION: NORMAL DOPPLER/COLOR FLOW: MILD MITRAL REGURGITATION COMMENTS: 1. NORMAL LEFT VENTRICULAR EJECTION FRACTION 55-60% WITH NORMAL WALL MOTION 2. LEFT ATRIAL ENLARGEMENT 3. ATRIAL FIBRILLATION 4. MILD MITRAL REGURGITATION TECHNOLOGIST: BRANDAN JUAREZ
[2022-10-14] MEDS: ENSURE MAX PROTEIN 330 ML LIQUID PO SCH (21:00)
[2022-10-14] MEDS: BENZONATATE 100 MG CAP PO PRN (21:03)
[2022-10-14] MEDS: oxyBUTYnin chloride 5 MG TAB PO SCH (21:03)
[2022-10-14] MEDS: ERTAPENEM NA 1 GM in NA CHLORIDE 0.9% 100 ML IVPB SCH (21:21)
--- NOTE | 2022-10-15 00:12 | PN ---
Date of Progress Note: 10/14/2022 Chief Complaint: Acute kidney injury. History Of Present Illness: Patient was admitted to the hospital for acute kidney injury secondary t o sepsis with obstructive uropathy. Patient had hydro and nephrostomy placed because she has a supra pubic catheter. Patient is started on IV fluids for volume resuscitation. Kidney function is fluctu ating. Review of Systems: Denies chest pain, palpitation. Physical Examination: Lungs: Clear to auscultation bilaterally. Heart: S1, S2. Abdomen: Obese. No rebound. No guarding. Suprapubic catheter. Extremities: Compression dressing on both legs. Laboratory Data: Sodium 137, potassium 4.5, chloride 108, CO2 total 28, BUN 23, creatinine 1.61, glu cose 101, calcium 8.1, phosphorus 2.5, magnesium 2.1. Impression: 1.Acute kidney injury secondary to renal hypoperfusion resulted in ATN. Continue mild hydration. M onitor fluid balance, chronic kidney disease with chronic obstructive uropathy, recurrent urinary tra ct infection, and recurrent acute kidney injury. Continue IV fluids for acute kidney injury on chron ic kidney disease. 2.Nephrotic range of proteinuria. 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 3.Anemia and chronic kidney disease. The patient may need further workup. Plan is to check serum p rotein electrophoresis. 4.Iron deficiency. Monitor iron level and check ferritin level. At this point, patient has infecti on and IV iron will not be used. EB/MODL Voice ID: [id number] Report ID: [id number]
[2022-10-15 03:42] LABS: Absolute Lymphocytes (CBC) 0.7 K/uL (0.7-4.9); Hematocrit 29.8 % (36.0-45.0); Lymphocytes % 7.2 % (15.3-44.8); MCV 83.4 fL (80-100); MPV 8.6 fL (7.6-11.3); Platelets 249 thou/uL (152-406); RBC Red Blood Cell Count 3.57 M/uL (3.86-4.86)
[2022-10-15 03:50] LABS: Albumin 1.8 g/dL (3.4-5.0); Magnesium 2.1 mg/dL (1.6-2.4); Phosphorus 2.6 mg/dL (2.5-4.9); Potassium 4.1 mEq/L (3.5-5.1)
[2022-10-15] MEDS: TRAMADOL HCL 50 MG TAB PO SCH ×4 (06:00→18:00)
[2022-10-15] MEDS: HYDROCODONE/APAP 5/325 MG TAB PO PRN (09:05)
[2022-10-15] MEDS: oxyBUTYnin chloride 5 MG TAB PO SCH ×2 (09:06→20:59)
[2022-10-15] MEDS: ENOXAPARIN 40 MG/0.4 ML SQ SCH (09:06)
[2022-10-15] MEDS: SODIUM BICARB 325 MG TAB PO SCH ×2 (09:06→20:59)
[2022-10-15] MEDS: ENSURE MAX PROTEIN 330 ML LIQUID PO SCH ×2 (09:07→20:59)
[2022-10-15] MEDS: BENZONATATE 100 MG CAP PO PRN ×2 (09:15→21:01)
--- NOTE | 2022-10-15 09:38 | P.PN ---
Date of Service: 10/15/22 Chief Complaint: severe sepsis Subjective: Transferred out of the ICU. Patient reports overall improvement in symptoms. No acute events reported overnight. Physical Examination Temp Pulse Resp BP Pulse Ox 98.1 F 89 20 118/71 96 10/15/22 08:00 10/15/22 08:00 10/15/22 08:00 10/15/22 08:00 10/15/22 08:00 General: Alert, In no apparent distress, Oriented x3 HEENT: Atraumatic, Normocephalic Neck: JVD not distended Respiratory: Normal air movement, Diminished Cardiovascular: Edema BLE., Irregular heart rate/rhythm Gastrointestinal: Normal bowel sounds. Obese. Integumentary: Erythema of bilateral feet. BLE edema and lymphedema. Stasis dermatitis. Urinary: Suprapubic catheter noted. Laboratory Data - Reviewed Microbiology Data - Reviewed Imagings Data: - Reviewed Medication List: reviewed Assessment and Plan Problem List Severe Sepsis Urinary Tract Infection Lymphedema vs Cellulitis Suprapubic catheter, chronic Atrial fibrillation Morbid Obesity Acute on chronic kidney disease Anemia, Iron deficiency COPD CHF Severe Sepsis Secondary to Urinary Tract Infection and Bilateral Lower Extremity Cellulitis - chronic suprapubic catheter - CT abdomen 10/11: "Bilateral staghorn calculi kidneys. Mild bilateral hydronephrosis" - Urine culture 10/11: 3+ organisms detected ; >100,000 CFU/mL - Blood cultures 10/11: No growth to date - Due to extensive allergy history and history of MDR infections, patient was started on Ertapenem and Vancomycin (10/11-) - Leukocytosis resolved. Afebrile. Recommendations - Continue Ertapenem and Vancomycin for 10 days (started 10/11). Currently on day 4. - BLE cellulitis: continue wound care as received outpatient. Allergy to sulfa and iodine, unable to use Silvadene or betadine. - Pressure offloading measures - Monitor WBC and fever trends. Case discussed with Sarah Killian
[2022-10-15] MEDS ORDERED: RINGERS LACTATE IV SCH ×2 (10:00)
[2022-10-15] MEDS ORDERED: POTASSIUM CL IV SCH ×2 (10:00)
[2022-10-15 11:31] LABS: Specific Gravity 1.006 (1.005-1.030); Urine Bacteria >50 /HPF (<20); Urine Bilirubin NEGATIVE (Negative); Urine Blood 3+ (OVER) (Negative); Urine Clarity Extremely Turbid (Clear); Urine Glucose NEGATIVE (Negative); Urine Mucus Slight /HPF (None Seen); Urine Protein 1+ (Negative); Urine RBC 21-50 /HPF (None Seen); Urine Urobilinogen Normal (Normal); Urine WBC Clump Occasional /HPF (None Seen); Urine pH 6.5 (5.0-7.0)
[2022-10-15 11:33] LABS: Urine Color Light-Yellow (Yellow)
--- NOTE | 2022-10-15 12:12 | PN ---
Date of Progress Note: 10/15/2022 Subjective: The patient was admitted with the acute kidney injury secondary to toxic ATN, sepsis, on chronic kidney disease. Patient had staghorn kidney, bilateral. Objective: Vital Signs: Blood pressure 118/71, pulse of 89, afebrile. Chest: Decreased entry, bilateral base. Heart: S1, S2. Regular. Abdomen: Morbidly obese. Suprapubic catheter. Extremity: Compression dressing bilateral with edema. Laboratory Data: Hemoglobin 9.9, sodium 139, potassium 4.1, bicarb 26, BUN 23, creatinine 1.6, GFR 3 4, calcium 8.2, phosphorus 2.6, magnesium 2.1, albumin 1.8. Corrected calcium is 9.8. Current Medications: The patient on, it includes: 1.Lovenox. 2.Sodium bicarb 650 b.i.d. 3.Ensure. 4.Zofran. 5.Tramadol. 6.Benzonatate. 7.Oxybutynin. Assessment And Plan: 1.Acute kidney injury secondary to toxic acute tubular necrosis, poor perfusion, acute tubular necro sis, and urinary tract infection, recovered, back to baseline, looked to me patient close to the norm al volume to overvolume. I am going to go ahead and discontinue IV fluid. We will get the chest x-r ay for better evaluation of her fluid status and to decide about resuming her Lasix. 2.Hypertension, controlled, optimal. Continue current treatment. 3.Nephrotic-range proteinuria, serology is still pending. Rheumatoid factor was negative mostly sec ondary to FSGS secondary to chronic obstructive uropathy. I am going to continue to monitor the kalani ent. Patient will benefit as outpatient to be challenged with low dose of TORSTEN inhibitor/ARB. 4.Staghorn kidney stone, bilateral. Patient was started on sodium bicarb. Patient eventually dajuan r to being on potassium citrate. We will arrange for it as outpatient. I am going to go ahead and r epeat the UA to see if we are reaching the goal of alkalining the urine and we will follow up. 5.Urinary tract infection. Continue current antibiotic. We will follow up with the primary. 6.Lymphedema, stable. 7.Congestive heart failure, diastolic dysfunction. We will follow up chest x-ray and we will decide on the diuresis. Discontinue IV fluid for the time being. Time spent examining the patient [id number], reviewing data, lab and radiology, placing order, disc ussing the case with the patient, discussing the case with the steam table worker including nursing staff an d the hospitalist more than 35 minutes. BUCK Voice ID: [id number] Report ID: [id number]
--- NOTE | 2022-10-15 12:25 | RAD REPORT ---
EXAM DESCRIPTION: RAD - Chest Single View - 10/15/2022 12:16 pm CLINICAL HISTORY: SOB Chest pain. COMPARISON: Chest Single View dated 10/11/2022; Chest Single View dated 09/18/2022; Chest Single View d ated 08/27/2021; Chest Single View dated 08/01/2021 FINDINGS: Portable technique limits examination quality. Mild pulmonary edema is suspected. The heart is moderately enlarged. Trace left pleural effusion. No displaced fractures. IMPRESSION: Mild CHF.
--- NOTE | 2022-10-15 16:18 | CON ---
Date of Consultation: 10/14/2022 Reason For Consultation: Atrial fibrillation. History Of Present Illness: A 67-year-old female has a past medical history of significant lymphedem a, congestive heart failure, COPD, depression, peripheral neuropathy, morbid obesity, hypertension, p resented to the emergency room with fever for 2 days, tachycardia, not feeling well and abdominal dis comfort and was found to have significant UTI and cellulitis and sepsis. She was in atrial fibrillat ion, but heart rate is controlled and by asking the patient, she claimed that she does have history o f paroxysmal atrial fibrillation. Past Medical History: As outlined above in HPI. Medications: Refer to reconciliation sheet for detailed list. Allergies: AMOXICILLIN, CEFTRIAXONE, FENTANYL, IODINE, AND VANCOMYCIN. Family History: No premature coronary artery disease or cancer. Social History: She does not smoke or drink. Does not use any drugs. Review of Systems: All systems reviewed and they were negative except what mentioned in HPI. Physical Examination: Vital Signs: Reviewed. Head and Neck: Pupils are equal, reactive to light. Intact eye movements. No JVD. No cervical lym phadenopathy. Neck is supple. Thyroid is not enlarged. Lungs: Clear to auscultation bilaterally. No rhonchi, wheezing, or crackles. No accessory muscle u se. Heart: Irregularly irregular. No extra sounds. Abdomen: Soft, nontender. Bowel sounds positive. No organomegaly. No masses or hernia. No rigidi ty or rebound. Extremities: No clubbing or cyanosis. She has massive lymphedema with erythema. Neurologic: Alert, awake, oriented x3. No acute focal deficits appreciated. Investigations: Her BUN is 23, creatinine 1.6, and hemoglobin is 9.3. Assessment And Recommendations: 1.Atrial fibrillation. Rate is controlled. I recommend to introduce low-dose beta-elana, metopro lol 12.5 mg twice a day as well as Eliquis 5 mg twice a day for chronic atrial fibrillation managemen t. If heart rate goes high and blood pressure is still soft, then I would recommend to load with IV amiodarone over 24 hours. 2.Significant lower extremity edema due to massive lymphedema with obvious cellulitis, on antibiotic s. 3.Hypertension. Blood pressure is on the low side. Continue to monitor. SR/MODL Voice ID: [id number] Report ID: [id number]
[2022-10-15] MEDS: ERTAPENEM NA 1 GM in NA CHLORIDE 0.9% 100 ML IVPB SCH (17:32)
--- NOTE | 2022-10-15 17:33 | P.PN ---
Subjective Date of Service: 10/15/22 Chief Complaint: severe sepsis Patient has no new complaint. No major changes from yesterday. She has been tolerating room air. Physical Examination - Vital Signs Temperature: 98.6 F Blood Pressure: 110/64 Pulse: 82 Respirations: 18 Pulse Ox (%): 96 Assessment And Plan - Plan Physical Exam: GEN: Oriented x3, lethargic. HEENT: Normal conjunctiva, sclera anicteric CV: Regular rate and rhythm with HR: 80s, chronic lymphedema, lower legs wrapped Pulm: diminished at bases bilaterally, scattered wheezes ABD: Soft, nondistended, suprapubic cath in place, no tenderness Integumentary: macerated skin, superficial ulcerations of b/l buttocks extending to gluteal folds; Erythema of lateral aspect of left leg extending up from ankle / dressing in place Neuro: Normal speech, lethargic. She moves bilateral upper extremities vitals reviewed Problem List Severe sepsis secondary to UTI and possible cellulitis chronic suprapubic catheter chronic bladder calculi, and b/l staghorn calculi chronic lymphedema L hand paresthesia A-fib, new onset CLIFF on CKD Iron deficiency anemia chronic COPD chronic diastolic CHF LENO morbid obesity fibromyalgia h/o PE (June 2021) Severe sepsis secondary to UTI and cellulitis chronic suprapubic catheter chronic bladder calculi, and b/l staghorn calculi CT abdomen (10/11): Bilateral staghorn calculi kidneys, Mild bilateral hydronephrosis Ulceration involves the tissues of the buttocks with inflammatory changes in the fat extending to the gluteal crease. No fluid-filled abscess. No air. chronic suprapubic catheter, urine is chronically "dirty" Urine culture: Multiple organisms, too many to run in lab improving clinically, and 48hrs after abx, and chronic SP mariee. Blood culture: NGTD ID consulted given severity of presentation and long list of allergies Continue Vancomycin and Ertapenem for now (10/11-) Initial fever. Patient has been afebrile for several days several days leukocytosis resolved cont PRN home tramadol strict i/o's IV fluid per nephrology. Diet as tolerated. chronic lymphedema recent admission for cellulitis, pt stopped antibiotics due to side effects, superficial ulcers / erythema of buttocks, and erythema up lateral aspect of left leg patient did not allow lymphedema wraps to be taken down, adamant that there are no wounds on feet - son agreed 10/14 - agreeable to have lymphedema wraps changed, +pictures taken General surgery consulted patient seen by Dr. Perdomo no surgical intervention at this time per Dr. Perdomo Continue local wound care PT consulted A-fib, new onset went into a-fib 10/12 afternoon, rate controlled Doesn't want anticoagulation d/t previous bleeding complications Seen by cardiology Dr. Ann. Echo (10/14): EF: 50%, left atrial enlargement, atrial fibrillation, mild MR CLIFF on CKD CT abdomen (10/11): Bilateral staghorn calculi kidneys and Mild bilateral hydronephrosis will need f/u with urology outpatient Nephrology is following. IVF and Lasix per nephrology. L hand paresthesia >1 month of symptoms intermittent suspect carpal tunnel outpatient f/u, NCS/EMG Iron deficiency anemia would likely benefit from iron supplementation once infection improves. monitor H&H. transfuse if hgb < 7 chronic COPD chronic diastolic CHF LENO morbid obesity fibromyalgia Continue home medications VTE: Lovenox Code: DNR
[2022-10-15] MEDS: VANCOMYCIN 2 GM in NA CHLORIDE 0.9% 500 ML IVPB SCH (19:27)
[2022-10-16] MEDS: HYDROCODONE/APAP 5/325 MG TAB PO PRN ×2 (00:51→17:20)
[2022-10-16 03:33] LABS: Albumin 1.7 g/dL (3.4-5.0); Magnesium 2.1 mg/dL (1.6-2.4); Phosphorus 3.1 mg/dL (2.5-4.9); Potassium 3.8 mEq/L (3.5-5.1)
[2022-10-16] MEDS: TRAMADOL HCL 50 MG TAB PO SCH ×5 (06:00→23:50)
[2022-10-16] MEDS: ENSURE MAX PROTEIN 330 ML LIQUID PO SCH ×2 (09:00→20:15)
[2022-10-16] MEDS ORDERED: POTASSIUM CL SA 10 MEQ TAB PO ONE (09:00)
--- NOTE | 2022-10-16 09:07 | P.PN ---
Date of Service: 10/16/22 Chief Complaint: severe sepsis Subjective: Patient seen and examined at bedside. No acute events reported overnight. +buttock pain Physical Examination Temp Pulse Resp BP Pulse Ox 98.2 F 82 20 119/63 96 10/16/22 08:00 10/16/22 08:00 10/16/22 08:00 10/16/22 08:00 10/16/22 08:00 General: Alert, In no apparent distress, Oriented x3 HEENT: Atraumatic, Normocephalic Neck: JVD not distended Respiratory: Normal air movement, Diminished Cardiovascular: Edema BLE. Gastrointestinal: Normal bowel sounds. Obese. Integumentary: Erythema and edema of BLE. Lymphedema. Stasis dermatitis. Urinary: Suprapubic catheter. Laboratory Data - Reviewed Microbiology Data - Reviewed Imagings Data: - Reviewed Medication List: reviewed Assessment and Plan Problem List Severe Sepsis Urinary Tract Infection Lymphedema vs Cellulitis Suprapubic catheter, chronic Atrial fibrillation Morbid Obesity Acute on chronic kidney disease Anemia, Iron deficiency COPD CHF Severe Sepsis Secondary to Urinary Tract Infection and Bilateral Lower Extremity Cellulitis - chronic suprapubic catheter - CT abdomen 10/11: "Bilateral staghorn calculi kidneys. Mild bilateral hydronephrosis" - Urine culture 10/11: 3+ organisms detected ; >100,000 CFU/mL - Blood cultures 10/11: No growth to date - Due to extensive allergy history and history of MDR infections, patient was started on Ertapenem and Vancomycin (10/11-) - Leukocytosis resolved. Afebrile. Recommendations - Continue Ertapenem and Vancomycin IV for 10 days (started 10/11). Currently on day 5. - BLE cellulitis: continue wound care as received outpatient. Allergy to sulfa and iodine, unable to use Silvadene or betadine. - Pressure offloading measures - Apply barrier cream to buttocks Case discussed with Sarah Killian
[2022-10-16] MEDS: oxyBUTYnin chloride 5 MG TAB PO SCH ×2 (09:27→20:15)
[2022-10-16] MEDS: ENOXAPARIN 40 MG/0.4 ML SQ SCH (09:27)
[2022-10-16] MEDS: SODIUM BICARB 325 MG TAB PO SCH ×2 (09:27→20:14)
[2022-10-16] MEDS: FUROSEMIDE 40 MG TABLET PO SCH (09:53)
[2022-10-16 11:51] LABS: Albumin, (SPE) 2.1 g/dL (3.8-4.8); Alpha-1-Globulins 0.5 g/dL (0.2-0.3); Alpha-2-Globulins 0.8 g/dL (0.5-0.9); INTERPRETATION REPORT
--- NOTE | 2022-10-16 14:56 | PN ---
Date of Progress Note: 10/16/2022 Subjective: Patient was admitted to the hospital with acute kidney injury secondary to toxic ATN secondary to sepsis. Patient had acute kidney injury secondary to prerenal and toxic ATN. Patient was treated, recovered. Patient started having some shortness of breath and increase of swelling. Patient has been off Lasix since admission. Physical Examination: Vital Signs: Blood pressure 119/63, pulse of 82, afebrile. Patient had good urine output of 2200. Chest: Decreased entry bilateral base. Heart: S1, S2. Systolic murmur. Abdomen: Soft, nontender. Extremities: Lymphedema bilateral with erythema. Neuro: Alert. No focality. Laboratory Data: Chest x-ray: Congestion, bilateral. WBC 9.4, hemoglobin 9.9. Sodium 140, potassium 3.8 bicarb 27, BUN 24, creatinine 1.7, calcium 7.9. Phosphorus 3.1, magnesium 2.1. Albumin 1.7. Corrected calcium is 9.5. Current Medications: The patient on include: 1. Ertapenem. 2. Vancomycin. 3. Lovenox. 4. Sodium bicarbonate. 5. Tramadol. 6. Hydrocodone. 7. KCl. Assessment And Plan: 1. Acute kidney injury secondary to toxic acute tubular necrosis, poor perfusion, acute tubular necrosis on the recovery. Looked to me currently on the overvolume side. I am going to start the patient back on Lasix 40 daily. 2. Hypertension, controlled optimal. Continue current medication. 3. 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 Serology is still pending. Rheumatoid factor is negative. We will continue to monitor. 4. Urinary tract infection. Continue ertapenem. 5. Lymphedema. Resume Lasix. 6. Congestive heart failure with diastolic dysfunction. Resume Lasix. Time spent examining the patient [id number], reviewing data, lab and radiology, placing order, discussing the case with the nursing and hospitalist more than 35 minutes. BUCK Voice ID: [id number] Report ID: [id number] MTDD
[2022-10-16] MEDS: ERTAPENEM NA 1 GM in NA CHLORIDE 0.9% 100 ML IVPB SCH (17:16)
--- NOTE | 2022-10-16 18:18 | EKG ---
Test Date: 2022-10-12 Test Time: 17:39:08 Neuropsychology Director: ANDREINA MEASUREMENT RESULTS: Intervals: Rate: 88 MI: QRSD: 90 QT: 350 QTc: 423 [place]: P: MI: QRS: -9 T: 24 INTERPRETIVE STATEMENTS: Atrial fibrillation with premature ventricular or aberrantly conducted complexes Low voltage QRS Abnormal ECG Compared to ECG 10/11/2022 13:14:10 Ventricular premature complex(es) now present Sinus tachycardia no longer present Electronically Signed On 10-16-22 18:13:43 CDT by Terry Ann
--- NOTE | 2022-10-16 19:45 | P.PN ---
Subjective Date of Service: 10/16/22 Chief Complaint: severe sepsis No major changes from yesterday. Physical Examination - Vital Signs Temperature: 97.7 F Blood Pressure: 105/75 Pulse: 74 Respirations: 18 Pulse Ox (%): 95 - Studies Microbiology Data (last 24 hrs): 10/11/22 12:10 Blood - Blood Aerobic Blood Culture - Final No growth in 5 days. 10/11/22 12:10 Blood - Blood Anaerobic Blood Culture - Final No growth in 5 days. 10/11/22 12:10 Blood - Blood Aerobic Blood Culture - Final No growth in 5 days. 10/11/22 12:10 Blood - Blood Anaerobic Blood Culture - Final No growth in 5 days. Assessment And Plan - Plan Physical Exam: GEN: Oriented x3, lethargic. HEENT: Normal conjunctiva, sclera anicteric CV: Regular rate and rhythm with HR: 80s, chronic lymphedema, lower legs wrapped Pulm: diminished at bases bilaterally, scattered wheezes ABD: Soft, nondistended, suprapubic cath in place, no tenderness Integumentary: macerated skin, superficial ulcerations of b/l buttocks extending to gluteal folds; Erythema of lateral aspect of left leg extending up from ankle / dressing in place Neuro: Normal speech, lethargic. She moves bilateral upper extremities vitals reviewed Problem List Severe sepsis secondary to UTI and possible cellulitis chronic suprapubic catheter chronic bladder calculi, and b/l staghorn calculi chronic lymphedema L hand paresthesia A-fib, new onset CLIFF on CKD Iron deficiency anemia chronic COPD chronic diastolic CHF LENO morbid obesity fibromyalgia h/o PE (June 2021) Severe sepsis secondary to UTI and cellulitis chronic suprapubic catheter chronic bladder calculi, and b/l staghorn calculi CT abdomen (10/11): Bilateral staghorn calculi kidneys, Mild bilateral hydronephrosis Ulceration involves the tissues of the buttocks with inflammatory changes in the fat extending to the gluteal crease. No fluid-filled abscess. No air. chronic suprapubic catheter, urine is chronically "dirty" Urine culture: Multiple organisms, too many to run in lab improving clinically, and 48hrs after abx, and chronic SP mariee. Blood culture: NGTD ID consulted given severity of presentation and long list of allergies Continue Vancomycin and Ertapenem for now (10/11-) Initial fever. Patient has been afebrile for several days several days leukocytosis resolved cont PRN home tramadol strict i/o's IV fluid per nephrology. Diet as tolerated. chronic lymphedema recent admission for cellulitis, pt stopped antibiotics due to side effects, superficial ulcers / erythema of buttocks, and erythema up lateral aspect of left leg patient did not allow lymphedema wraps to be taken down, adamant that there are no wounds on feet - son agreed 10/14 - agreeable to have lymphedema wraps changed, +pictures taken General surgery consulted patient seen by Dr. Perdomo no surgical intervention at this time per Dr. Perdomo Continue local wound care PT consulted A-fib, new onset went into a-fib 10/12 afternoon, rate controlled Doesn't want anticoagulation d/t previous bleeding complications Seen by cardiology Dr. Ann. Echo (10/14): EF: 50%, left atrial enlargement, atrial fibrillation, mild MR CLIFF on CKD CT abdomen (10/11): Bilateral staghorn calculi kidneys and Mild bilateral hydronephrosis will need f/u with urology outpatient Nephrology is following. IVF and Lasix per nephrology. L hand paresthesia >1 month of symptoms intermittent suspect carpal tunnel outpatient f/u, NCS/EMG Iron deficiency anemia would likely benefit from iron supplementation once infection improves. monitor H&H. transfuse if hgb < 7 chronic COPD chronic diastolic CHF LENO morbid obesity fibromyalgia Continue home medications VTE: Lovenox Code: DNR
[2022-10-16] MEDS: BENZONATATE 100 MG CAP PO PRN (20:15)
[2022-10-17] MEDS: TRAMADOL HCL 50 MG TAB PO SCH ×3 (05:10→17:23)
[2022-10-17] MEDS: HYDROCODONE/APAP 5/325 MG TAB PO PRN ×2 (05:20→21:18)
[2022-10-17 05:31] LABS: Albumin 1.7 g/dL (3.4-5.0); Potassium 3.7 mEq/L (3.5-5.1)
--- NOTE | 2022-10-17 08:57 | P.PN ---
Date of Service: 10/17/22 Chief Complaint: severe sepsis Subjective: No acute events reported overnight. Patient seen and examined at bedside. Denies any new or worsening complaints. Physical Examination Temp Pulse Resp BP Pulse Ox 97.6 F 80 14 118/61 95 10/17/22 04:00 10/17/22 04:00 10/17/22 05:20 10/17/22 04:00 10/17/22 05:20 General: Alert, In no apparent distress, Oriented x3 HEENT: Atraumatic, Normocephalic. JVD not distended Respiratory: Normal air movement, Diminished at bases. Cardiovascular: RRR. Edema BLE. Gastrointestinal: Normal bowel sounds. Obese. Integumentary: Erythema and edema of Bilateral lower extremities. Lymphedema and Stasis dermatitis BLE. Urinary: Suprapubic catheter. Laboratory Data - Reviewed Microbiology Data - Reviewed Imagings Data: - Reviewed Medication List: reviewed Assessment and Plan Problem List Severe Sepsis Urinary Tract Infection Lymphedema vs Cellulitis Suprapubic catheter, chronic Atrial fibrillation Morbid Obesity Acute on chronic kidney disease Anemia, Iron deficiency COPD CHF * multiple drug and food allergies * Severe Sepsis Secondary to Urinary Tract Infection and Bilateral Lower Extremity Cellulitis - chronic suprapubic catheter - CT abdomen 10/11: "Bilateral staghorn calculi kidneys. Mild bilateral hydronephrosis" - Urine culture 10/11: 3+ organisms detected ; >100,000 CFU/mL - Blood cultures 10/11: No growth to date - Due to extensive allergy history and history of MDR infections, patient was started on Ertapenem and Vancomycin (10/11-) - Leukocytosis resolved. Afebrile. Recommendations - Continue Ertapenem and Vancomycin IV for 10 days (started 10/11). - Currently on day 6 of 10. - BLE cellulitis: continue wound care as received outpatient. - Pressure offloading measures - Apply barrier cream to buttocks Case discussed with Sarah Killian
[2022-10-17] MEDS ORDERED: POTASSIUM CL SA 10 MEQ TAB PO ONE (09:00)
[2022-10-17] MEDS: ENSURE MAX PROTEIN 330 ML LIQUID PO SCH ×2 (09:00→21:15)
[2022-10-17] MEDS: SODIUM BICARB 325 MG TAB PO SCH ×3 (09:02→21:19)
[2022-10-17] MEDS: oxyBUTYnin chloride 5 MG TAB PO SCH ×2 (09:02→21:19)
[2022-10-17] MEDS: FUROSEMIDE 40 MG TABLET PO SCH (09:02)
[2022-10-17] MEDS: ENOXAPARIN 40 MG/0.4 ML SQ SCH (09:03)
[2022-10-17] MEDS: BENZONATATE 100 MG CAP PO PRN ×2 (09:06→21:19)
[2022-10-17] MEDS: ACETAMINOPHEN 500 MG TAB PO PRN (09:41)
--- NOTE | 2022-10-17 13:47 | P.PN ---
Subjective Date of Service: 10/17/22 Chief Complaint: severe sepsis Patient has no new complaint except generalized weakness. She is currently total assist for transfers. Physical Examination - Vital Signs Temperature: 98.3 F Blood Pressure: 121/67 Pulse: 85 Respirations: 16 Pulse Ox (%): 95 - Studies Microbiology Data (last 24 hrs): 10/11/22 12:10 Blood - Blood Aerobic Blood Culture - Final No growth in 5 days. 10/11/22 12:10 Blood - Blood Anaerobic Blood Culture - Final No growth in 5 days. 10/11/22 12:10 Blood - Blood Aerobic Blood Culture - Final No growth in 5 days. 10/11/22 12:10 Blood - Blood Anaerobic Blood Culture - Final No growth in 5 days. Assessment And Plan - Plan Physical Exam: GEN: Oriented x3, NAD HEENT: Normal conjunctiva, sclera anicteric CV: Regular rate and rhythm with HR: 80s, chronic lymphedema of lower extremities. Pulm: diminished at bases bilaterally, scattered wheezes ABD: Soft, nondistended, suprapubic cath in place, no tenderness Integumentary: macerated skin, superficial ulcerations of b/l buttocks extending to gluteal folds; Erythema of lateral aspect of left leg extending up from ankle / dressing in place Neuro: Normal speech, lethargic. She moves bilateral upper extremities vitals reviewed Problem List Severe sepsis secondary to UTI and possible cellulitis chronic suprapubic catheter chronic bladder calculi, and b/l staghorn calculi chronic lymphedema L hand paresthesia A-fib, new onset CLIFF on CKD Iron deficiency anemia chronic COPD chronic diastolic CHF LENO morbid obesity fibromyalgia h/o PE (June 2021) Severe sepsis secondary to UTI and cellulitis chronic suprapubic catheter chronic bladder calculi, and b/l staghorn calculi CT abdomen (10/11): Bilateral staghorn calculi kidneys, Mild bilateral hydronephrosis Ulceration involves the tissues of the buttocks with inflammatory changes in the fat extending to the gluteal crease. No fluid-filled abscess. No air. chronic suprapubic catheter, urine is chronically "dirty" Urine culture: Multiple organisms, too many to run in lab Improving clinically, and 48hrs after abx, and chronic SP mariee. Blood culture: NGTD ID consulted given severity of presentation and long list of allergies Continue Vancomycin and Ertapenem for now (10/11-) Initial fever. Patient has been afebrile for several days several days leukocytosis resolved cont PRN home tramadol strict i/o's IV fluid per nephrology. Diet as tolerated. chronic lymphedema recent admission for cellulitis, pt stopped antibiotics due to side effects, superficial ulcers / erythema of buttocks, and erythema up lateral aspect of left leg patient did not allow lymphedema wraps to be taken down, adamant that there are no wounds on feet - son agreed 10/14 - agreeable to have lymphedema wraps changed, +pictures taken General surgery consulted patient seen by Dr. Perdomo. No surgical intervention at this time per Dr. Perdomo. Continue aggressive local wound care. PT consulted. A-fib, new onset went into a-fib 10/12 afternoon, rate controlled. Doesn't want anticoagulation d/t previous bleeding complications Seen by cardiology Dr. Ann. Echo (10/14): EF: 50%, left atrial enlargement, atrial fibrillation, mild MR. CLIFF on CKD CT abdomen (10/11): Bilateral staghorn calculi kidneys and Mild bilateral hydronephrosis Patient will need f/u with urology outpatient. Nephrology is following. IVF and Lasix per nephrology. L hand paresthesia >1 month of symptoms intermittent suspect carpal tunnel outpatient f/u, NCS/EMG Iron deficiency anemia would likely benefit from iron supplementation once infection improves. monitor H&H. transfuse if hgb < 7 chronic COPD chronic diastolic CHF LENO morbid obesity fibromyalgia Continue home medications VTE: Lovenox Code: DNR
[2022-10-17] MEDS: ERTAPENEM NA 1 GM in NA CHLORIDE 0.9% 100 ML IVPB SCH (17:24)
--- NOTE | 2022-10-17 18:36 | PN ---
Date of Progress Note: 10/17/2022 Subjective: The patient was admitted with acute kidney injury secondary to prerenal, dehydration. Has a staghorn kidney stone, treated, recovered, still without significant obstruction. The patient had percutaneous nephrostomy, was removed by the patient incidentally. Physical Examination: Vital Signs: When I saw the patient; blood pressure 121/67, pulse of 85, afebrile. Chest: Clear to auscultation. Heart: S1, S2. Regular. Abdomen: Soft. The patient morbidly obese. Could not appreciate any organomegaly. Has a suprapubic catheter. Extremity: Lymphedema bilateral with erythema with deformity on the toes. Neurologic: Alert. No focality. Laboratory Data: Hemoglobin 9.9. Sodium 140, potassium 3.7, bicarb 28, BUN 24, creatinine 1.6, GFR of 34, calcium of 8, phosphorus 4, magnesium 2, albumin 1.7. Corrected calcium is 9.5. Current Medications: The patient on include ertapenem, vancomycin, Ensure, Lasix 40 daily started yesterday, sodium bicarb 650 b.i.d., Zofran, tramadol, hydrocodone, KCl. Assessment And Plan: 1. Chronic kidney disease, status post acute kidney injury secondary to toxic ATN, poor perfusion, ATN, on the recovery, back close to baseline, still on the over volume. Continue Lasix. We will consider increasing the Lasix tomorrow if kidney function stays stable. 2. Hypertension, controlled, optimal. Continue current treatment. 3. 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 We will continue to monitor the patient. Serology was negative so far pending the [place]. The patient is going to be a good candidate for adding TORSTEN inhibitor or ARB as outpatient. 4. Urinary tract infection. Continue ertapenem. 5. Lymphedema. We will resume Lasix. We will follow up. We will consider increasing the Lasix by tomorrow. 6. Staghorn kidney stone with hypokalemia. Consider potassium citrate, unfortunately is not available. I am going to go ahead and increase the sodium bicarb to t.i.d. and we will follow up the patient. Time spent examining the patient [id number], reviewing data, lab and radiology, placing order, discussing the case with the nursing and hospitalist more than 35 minutes. BUCK Voice ID: [id number] Report ID: [id number] CRIS
[2022-10-17] MEDS: VANCOMYCIN 2 GM in NA CHLORIDE 0.9% 500 ML IVPB SCH (19:44)
[2022-10-18] MEDS: TRAMADOL HCL 50 MG TAB PO SCH
[2022-10-18 03:46] LABS: Albumin 1.7 g/dL (3.4-5.0); Phosphorus 5.1 mg/dL (2.5-4.9)
[2022-10-18 04:00] LABS: Magnesium 2.2 mg/dL (1.6-2.4)
[2022-10-18] MEDS: ENSURE MAX PROTEIN 330 ML LIQUID PO SCH ×2 (09:00→21:00)
--- NOTE | 2022-10-18 09:14 | P.PN ---
Date of Service: 10/18/22 Chief Complaint: severe sepsis Subjective: Continues to improve No acute events reported overnight. Denies any new or worsening complaints. Continue current plan of care. Physical Examination Temp Pulse Resp BP Pulse Ox 98.4 F 97 H 16 105/63 94 10/18/22 08:00 10/18/22 08:00 10/18/22 08:00 10/18/22 08:00 10/18/22 08:00 General: Alert, In no apparent distress, Oriented x3 HEENT: Atraumatic, Normocephalic. JVD not distended Respiratory: Normal air movement, Diminished at bases. Cardiovascular: Edema/lymphedema BLE. Regular rate and rhythm. Gastrointestinal: Normal bowel sounds. Obese. Integumentary: Erythema and edema of Bilateral lower extremities. Lymphedema and Stasis dermatitis BLE. Dressing clean dry and intact. Urinary: Suprapubic catheter. Laboratory Data - Reviewed Microbiology Data - Reviewed Imagings Data: - Reviewed Medication List: reviewed Assessment and Plan Problem List Severe Sepsis Urinary Tract Infection Lymphedema vs Cellulitis Suprapubic catheter, chronic Atrial fibrillation Morbid Obesity Acute on chronic kidney disease Anemia, Iron deficiency COPD CHF * multiple drug and food allergies * Severe Sepsis Secondary to Urinary Tract Infection and Bilateral Lower Extremity Cellulitis - chronic suprapubic catheter - CT abdomen 10/11: "Bilateral staghorn calculi kidneys. Mild bilateral hydronephrosis" - Urine culture 10/11: 3+ organisms detected ; >100,000 CFU/mL - Blood cultures 10/11: No growth to date - Due to extensive allergy history and history of MDR infections, patient was started on Ertapenem and Vancomycin (10/11-) - Leukocytosis resolved. Afebrile. Recommendations - Continue Ertapenem and Vancomycin IV for 10 days (started 10/11). Currently on day 7 - BLE cellulitis: continue wound care as received outpatient. - Pressure offloading measures - Apply barrier cream to buttocks Case discussed with Sarah Killian
[2022-10-18] MEDS: FUROSEMIDE 40 MG TABLET PO SCH ×3 (09:40→21:35)
[2022-10-18] MEDS: SODIUM BICARB 325 MG TAB PO SCH ×3 (09:40→21:35)
[2022-10-18] MEDS: oxyBUTYnin chloride 5 MG TAB PO SCH ×2 (09:40→21:35)
[2022-10-18] MEDS: ENOXAPARIN 40 MG/0.4 ML SQ SCH (09:41)
[2022-10-18] MEDS: HYDROCODONE/APAP 5/325 MG TAB PO PRN (11:27)
--- NOTE | 2022-10-18 14:51 | P.PN ---
Subjective Date of Service: 10/18/22 Chief Complaint: severe sepsis Subjective: No new changes Physical Examination - Vital Signs Temperature: 98.5 F Blood Pressure: 117/87 Pulse: 109 Respirations: 16 Pulse Ox (%): 93 - Physical Exam General: Other (appears her stated age) HEENT: Atraumatic, Normocephalic Neck: Supple Respiratory: Other (symmetric chest expansion) Cardiovascular: No rubs, No murmurs Gastrointestinal: Soft and benign Musculoskeletal: No clubbing Integumentary: No warmth Neurological: Normal tone Urinary: Other (no bladder distention) External genitalia: Deferred Rectal: Deferred Assessment And Plan - Plan 1. CLIFF 2/2 ATN on CKD. SCr improved to 1.5. Continue Lasix. Route by mouth fluid intake. 2. Hypertension, controlled, optimal. Continue current treatment. 3. 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 We will continue to monitor the patient. Serology was negative so far pending the [place]. The patient is going to be a good candidate for adding TORSTEN inhibitor or ARB as outpatient. 4. Urinary tract infection. On abx. 5. Chronic BLE lymphedema. increase Lasix to 80 mg po bid. 6. Staghorn kidney stone with hypokalemia. Consider potassium citrate, unfortunately is not available. I am going to go ahead and increase the sodium bicarb to t.i.d. and we will follow up the patient. 7. Hyperphosphatemia. Monitor 8. Anemia. Monitor CBC.
[2022-10-18] MEDS: ERTAPENEM NA 1 GM in NA CHLORIDE 0.9% 100 ML IVPB SCH (17:07)
--- NOTE | 2022-10-18 18:48 | P.PN ---
Subjective Date of Service: 10/18/22 Chief Complaint: severe sepsis No major changes from yesterday. She has not been able to get up from bed She is currently total assist for transfers. Physical Examination - Vital Signs Temperature: 98.2 F Blood Pressure: 101/77 Pulse: 98 Respirations: 18 Pulse Ox (%): 96 Assessment And Plan - Plan Physical Exam: GEN: Oriented x3, NAD HEENT: Normal conjunctiva, sclera anicteric CV: Regular rate and rhythm, chronic lymphedema of lower extremities. Pulm: diminished at bases bilaterally, clear to auscultation bilaterally. ABD: Soft, nondistended, suprapubic cath in place, no tenderness Integumentary: macerated skin, superficial ulcerations of b/l buttocks extending to gluteal folds; venous stasis dermatitis of bilateral lower extremities. Neuro: Normal speech. She moves bilateral upper extremities vitals reviewed Problem List Severe sepsis secondary to UTI and possible cellulitis chronic suprapubic catheter chronic bladder calculi, and b/l staghorn calculi chronic lymphedema L hand paresthesia A-fib, new onset CLIFF on CKD Iron deficiency anemia chronic COPD chronic diastolic CHF LENO morbid obesity fibromyalgia h/o PE (June 2021) Severe sepsis secondary to UTI and cellulitis chronic suprapubic catheter chronic bladder calculi, and b/l staghorn calculi CT abdomen (10/11): Bilateral staghorn calculi kidneys, Mild bilateral hydronephrosis Ulceration involves the tissues of the buttocks with inflammatory changes in the fat extending to the gluteal crease. No fluid-filled abscess. No air. chronic suprapubic catheter, urine is chronically "dirty" Urine culture: Multiple organisms, too many to run in lab. Clinically improving slowly. Blood culture: NGTD ID is following. Continue Vancomycin and Ertapenem for now (10/11-) Initial fever. Patient has been afebrile for several days. leukocytosis resolved cont PRN home tramadol strict i/o's IV fluid per nephrology. Diet as tolerated. chronic lymphedema recent admission for cellulitis, pt stopped antibiotics due to side effects, superficial ulcers / erythema of buttocks, and erythema up lateral aspect of left leg patient did not allow lymphedema wraps to be taken down, adamant that there are no wounds on feet - son agreed 10/14 - agreeable to have lymphedema wraps changed, +pictures taken General surgery consulted patient seen by Dr. Perdomo. No surgical intervention at this time per Dr. Perdomo. Continue aggressive local wound care. PT consulted. A-fib, new onset Rate controlled. Doesn't want anticoagulation d/t previous bleeding complications Seen by cardiology Dr. Ann. Echo (10/14): EF: 50%, left atrial enlargement, atrial fibrillation, mild MR. CLIFF on CKD CT abdomen (10/11): Bilateral staghorn calculi kidneys and Mild bilateral hydronephrosis Patient will need f/u with urology outpatient. Nephrology is following. Renal function continues to improve. IVF and Lasix per nephrology. L hand paresthesia >1 month of symptoms intermittent suspect carpal tunnel outpatient f/u, NCS/EMG Iron deficiency anemia would likely benefit from iron supplementation once infection improves. monitor H&H. transfuse if hgb < 7 chronic COPD chronic diastolic CHF LENO morbid obesity fibromyalgia Continue home medications VTE: Lovenox Code: DNR
[2022-10-19 06:05] LABS: Absolute Lymphocytes (CBC) 0.5 K/uL (0.7-4.9); Hematocrit 27.9 % (36.0-45.0); Lymphocytes % 5.8 % (15.3-44.8); MCV 82.5 fL (80-100); MPV 7.8 fL (7.6-11.3); Platelets 338 thou/uL (152-406); RBC Red Blood Cell Count 3.38 M/uL (3.86-4.86)
[2022-10-19 06:19] LABS: Potassium 3.4 mEq/L (3.5-5.1)
[2022-10-19 08:18] LABS: Blood Morphology Comment NOT SEEN (NOT SEEN); Platelet Estimate ADEQ; Toxic Granulation 1+
[2022-10-19] MEDS: ENSURE MAX PROTEIN 330 ML LIQUID PO SCH ×2 (09:00→21:00)
[2022-10-19] MEDS ORDERED: POTASSIUM CL SA 10 MEQ TAB PO ONE ×2 (09:00→21:00)
[2022-10-19] MEDS: BENZONATATE 100 MG CAP PO PRN ×2 (09:33→21:53)
[2022-10-19] MEDS: SODIUM BICARB 325 MG TAB PO SCH ×2 (09:33→14:22)
[2022-10-19] MEDS: FUROSEMIDE 40 MG TABLET PO SCH ×2 (09:33→21:52)
[2022-10-19] MEDS: ENOXAPARIN 40 MG/0.4 ML SQ SCH (09:33)
[2022-10-19] MEDS: oxyBUTYnin chloride 5 MG TAB PO SCH ×2 (09:33→21:52)
--- NOTE | 2022-10-19 14:13 | P.PN ---
Subjective Date of Service: 10/19/22 Chief Complaint: severe sepsis No major changes from yesterday. No issues overnight. Good urine output. No recorded fever. Physical Examination - Vital Signs Temperature: 98.7 F Blood Pressure: 102/52 Pulse: 71 Respirations: 16 Pulse Ox (%): 95 Assessment And Plan - Plan Physical Exam: GEN: Oriented x3, NAD CV: Regular rate and rhythm, chronic lymphedema of lower extremities. Pulm: diminished at bases bilaterally, clear to auscultation bilaterally. ABD: Soft, nondistended, suprapubic cath in place, no tenderness Integumentary: macerated skin, superficial ulcerations of b/l buttocks extending to gluteal folds; venous stasis dermatitis of bilateral lower extremities. Neuro: Normal speech. She moves bilateral upper extremities vitals reviewed Problem List Severe sepsis secondary to UTI and possible cellulitis chronic suprapubic catheter chronic bladder calculi, and b/l staghorn calculi chronic lymphedema L hand paresthesia A-fib, new onset CLIFF on CKD Iron deficiency anemia chronic COPD chronic diastolic CHF LENO morbid obesity fibromyalgia h/o PE (June 2021) Severe sepsis secondary to UTI and cellulitis chronic suprapubic catheter chronic bladder calculi, and b/l staghorn calculi CT abdomen (10/11): Bilateral staghorn calculi kidneys, Mild bilateral hydronephrosis Ulceration involves the tissues of the buttocks with inflammatory changes in the fat extending to the gluteal crease. No fluid-filled abscess. No air. chronic suprapubic catheter, urine is chronically "dirty" Urine culture: Multiple organisms, too many to run in lab. Clinically improving slowly. Blood culture: NGTD ID is following. Continue Vancomycin and Ertapenem for now (10/11-) Initial fever. Patient has been afebrile for several days. leukocytosis resolved cont PRN home tramadol strict i/o's IV fluid per nephrology. Diet as tolerated. Increase activity as tolerated. chronic lymphedema recent admission for cellulitis, pt stopped antibiotics due to side effects, superficial ulcers / erythema of buttocks, and erythema up lateral aspect of left leg patient did not allow lymphedema wraps to be taken down, adamant that there are no wounds on feet - son agreed 10/14 - agreeable to have lymphedema wraps changes. General surgery consulted, patient seen by Dr. Perdomo. No surgical intervention at this time per Dr. Perdomo. Continue aggressive local wound care. Continue PT A-fib, new onset Rate controlled. Doesn't want anticoagulation d/t previous bleeding complications Seen by cardiology Dr. Ann. Echo (10/14): EF: 50%, left atrial enlargement, atrial fibrillation, mild MR. CLIFF on CKD CT abdomen (10/11): Bilateral staghorn calculi kidneys and Mild bilateral hydronephrosis Patient will need f/u with urology outpatient. Nephrology is following. Renal function continues to improve. IVF and Lasix per nephrology. L hand paresthesia >1 month of symptoms intermittent suspect carpal tunnel outpatient f/u, NCS/EMG Iron deficiency anemia monitor H&H. transfuse if hgb < 7 chronic COPD chronic diastolic CHF LENO morbid obesity fibromyalgia Continue home medications VTE: Lovenox Code: DNR
--- NOTE | 2022-10-19 15:00 | P.PN ---
Subjective Date of Service: 10/19/22 Chief Complaint: severe sepsis Pt admitted with sepsis , have CKD and protenuria today no overnight events Cr stable will dc Sodium bicarbonate Physical exam General: Awake, NAD , obese HEENT: Atraumatic, Normocephalic Neck: Supple, no elevated JVD Respiratory: CTAB Cardiovascular: No rubs, No murmurs Gastrointestinal: Soft and benign, Non-distended EXT, edema, leg wrapped 1. CLIFF 2/2 ATN on CKD. SCr improved to 1.5. Continue Lasix. Route by mouth fluid intake. 2. Hypertension, controlled, optimal. Continue current treatment. 3. 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 , serology W/U negative going to be a good candidate for adding TORSTEN inhibitor or ARB as outpatient. 4. Urinary tract infection. On abx. 5. Chronic BLE lymphedema. Lasix to 80 mg po bid. 6. Staghorn kidney stone with hypokalemia. Consider potassium citrate as an OP , high Bicarbonate , will dc odium bicarbonate 7. Hyperphosphatemia. Monitor 8. Anemia. Monitor CBC. Physical Examination - Vital Signs Temperature: 98.7 F Blood Pressure: 102/52 Pulse: 71 Respirations: 16 Pulse Ox (%): 95
[2022-10-19] MEDS ORDERED: POTASSIUM 25 MEQ EFFERV TAB PO ONE (16:00)
[2022-10-19] MEDS: ERTAPENEM NA 1 GM in NA CHLORIDE 0.9% 100 ML IVPB SCH (17:13)
[2022-10-19] MEDS: VANCOMYCIN 2 GM in NA CHLORIDE 0.9% 500 ML IVPB SCH (18:43)
[2022-10-19] MEDS: ONDANSETRON 4 MG/2 ML VIAL IV PRN (22:07)
[2022-10-19] MEDS: ACETAMINOPHEN 500 MG TAB PO PRN (22:07)
[2022-10-20] MEDS ORDERED: NA CHLORIDE 0.9% 500 ML IV ONE (00:14)
[2022-10-20 06:19] LABS: Potassium 3.6 mEq/L (3.5-5.1)
[2022-10-20] MEDS ORDERED: POTASSIUM CL SA 10 MEQ TAB PO ONE (09:00)
[2022-10-20] MEDS: ENSURE MAX PROTEIN 330 ML LIQUID PO SCH ×2 (09:00→20:37)
[2022-10-20] MEDS: FUROSEMIDE 40 MG TABLET PO SCH ×2 (09:04→20:37)
[2022-10-20] MEDS: ENOXAPARIN 40 MG/0.4 ML SQ SCH (09:04)
[2022-10-20] MEDS: oxyBUTYnin chloride 5 MG TAB PO SCH ×2 (09:04→20:37)
--- NOTE | 2022-10-20 13:16 | P.PN ---
Subjective Date of Service: 10/20/22 Chief Complaint: severe sepsis Patient is complaining of chills. She experienced an episode of low-grade fever last night. She had low-grade fever yesterday. Good urine output. Physical Examination - Vital Signs Temperature: 98.6 F Blood Pressure: 98/50 Pulse: 65 Respirations: 20 Pulse Ox (%): 95 Assessment And Plan - Plan Physical Exam: GEN: Oriented x3, NAD CV: Regular rate and rhythm, chronic lymphedema of lower extremities. Pulm: diminished at bases bilaterally, clear to auscultation bilaterally. ABD: Soft, nondistended, suprapubic cath in place, no tenderness Integumentary: macerated skin, superficial ulcerations of b/l buttocks extending to gluteal folds; venous stasis dermatitis of bilateral lower extremities. Neuro: Normal speech. She moves bilateral upper extremities vitals reviewed Problem List Severe sepsis secondary to UTI and possible cellulitis chronic suprapubic catheter chronic bladder calculi, and b/l staghorn calculi chronic lymphedema L hand paresthesia A-fib, new onset CLIFF on CKD Iron deficiency anemia chronic COPD chronic diastolic CHF LENO morbid obesity fibromyalgia h/o PE (June 2021) Severe sepsis secondary to UTI and cellulitis chronic suprapubic catheter chronic bladder calculi, and b/l staghorn calculi CT abdomen (10/11): Bilateral staghorn calculi kidneys, Mild bilateral hydronephrosis Ulceration involves the tissues of the buttocks with inflammatory changes in the fat extending to the gluteal crease. No fluid-filled abscess. No air. chronic suprapubic catheter, urine is chronically "dirty" Urine culture: Multiple organisms, too many to run in lab. Clinically improving slowly. Blood culture: NGTD ID is following. Continue Vancomycin and Ertapenem(10/11-) leukocytosis resolved But patient experienced intermittent fever. We will add Diflucan Infectious disease to follow. cont PRN home tramadol strict i/o's IV fluid per nephrology. Diet as tolerated. Increase activity as tolerated. chronic lymphedema recent admission for cellulitis, pt stopped antibiotics due to side effects, superficial ulcers / erythema of buttocks, and erythema up lateral aspect of left leg 10/14 - agreeable to have lymphedema wrap changed.. General surgery consulted, patient seen by Dr. Perdomo. No surgical intervention at this time per Dr. Perdomo. Continue aggressive local wound care. Continue PT A-fib, new onset Rate controlled. Doesn't want anticoagulation d/t previous bleeding complications Seen by cardiology Dr. Ann. Echo (10/14): EF: 50%, left atrial enlargement, atrial fibrillation, mild MR. CLIFF on CKD CT abdomen (10/11): Bilateral staghorn calculi kidneys and Mild bilateral hydronephrosis Patient will need f/u with urology outpatient. Nephrology is following. Renal function is relatively stable. IVF and Lasix per nephrology. L hand paresthesia >1 month of symptoms intermittent suspect carpal tunnel outpatient f/u, NCS/EMG Iron deficiency anemia monitor H&H. transfuse if hgb < 7 chronic COPD chronic diastolic CHF LENO morbid obesity fibromyalgia Continue home medications VTE: Lovenox Code: DNR
[2022-10-20] MEDS: FLUCONAZOLE 200mg IVPB 200 MG/100 ML BAG IV SCH (13:40)
--- NOTE | 2022-10-20 14:21 | P.PN ---
Subjective Date of Service: 10/20/22 Chief Complaint: severe sepsis Pt admitted with sepsis , have CKD and protenuria today no overnight events Cr elevated to 1.7 , edema improving WT down to 140Kg, lasix changed to PO will repeat CXR Physical exam General: Awake, NAD , obese HEENT: Atraumatic, Normocephalic Neck: Supple, no elevated JVD Respiratory: mild basal rales Cardiovascular: No rubs, No murmurs Gastrointestinal: Soft and benign, Non-distended, mariee catheter EXT, Lymphedemaedema, leg wrapped 1. CLIFF 2/2 ATN on CKD. SCr improved to 1.5. Continue Lasix. Route by mouth fluid intake. 2. Hypertension, controlled, optimal. Continue current treatment. 3. 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 , serology W/U negative going to be a good candidate for adding TORSTEN inhibitor or ARB as outpatient. 4. Urinary tract infection. On abx. 5. Chronic BLE lymphedema. Lasix to 80 mg po bid. 6. Staghorn kidney stone with hypokalemia. Consider potassium citrate as an OP , high Bicarbonate , will dc odium bicarbonate 7. Hyperphosphatemia. Monitor 8. Anemia. Monitor CBC. 9. Chronic urinary incontinence , Cont Mariee Physical Examination - Vital Signs Temperature: 98.6 F Blood Pressure: 98/50 Pulse: 65 Respirations: 20 Pulse Ox (%): 95
--- NOTE | 2022-10-20 15:11 | RAD REPORT ---
EXAM DESCRIPTION: Chrissy Single View10/20/2022 2:52 pm CLINICAL HISTORY: sob COMPARISON: October 15, 2022 FINDINGS: The lungs appear clear of acute infiltrate. The heart is normal size IMPRESSION: No acute abnormalities displayed
[2022-10-20] MEDS: ERTAPENEM NA 1 GM in NA CHLORIDE 0.9% 100 ML IVPB SCH (17:09)
[2022-10-20] MEDS: BENZONATATE 100 MG CAP PO PRN (20:37)
[2022-10-20] MEDS ORDERED: FUROSEMIDE 40 MG TABLET PO SCH (21:00)
[2022-10-21] MEDS: ONDANSETRON 4 MG/2 ML VIAL IV PRN (02:23)
[2022-10-21 03:57] LABS: Absolute Lymphocytes (CBC) 0.6 K/uL (0.7-4.9); Hematocrit 27.6 % (36.0-45.0); Lymphocytes % 7.6 % (15.3-44.8); MCV 82.1 fL (80-100); MPV 8.2 fL (7.6-11.3); Platelets 317 thou/uL (152-406); RBC Red Blood Cell Count 3.36 M/uL (3.86-4.86)
[2022-10-21 04:17] LABS: Potassium 3.3 mEq/L (3.5-5.1)
[2022-10-21] MEDS ORDERED: POTASSIUM CL SA 10 MEQ TAB PO ONE (09:00)
[2022-10-21] MEDS: ENSURE MAX PROTEIN 330 ML LIQUID PO SCH ×2 (09:00→21:42)
[2022-10-21] MEDS: FUROSEMIDE 40 MG TABLET PO SCH ×2 (09:00→21:00)
--- NOTE | 2022-10-21 09:51 | P.PN ---
Date of Service: 10/21/22 Chief Complaint: severe sepsis Subjective: Over the weekend, patient had low grade fever 100.9 F. Patient seen and examined at bedside. Otherwise no new or worsening complaints. Physical Examination Temp Pulse Resp BP Pulse Ox 98.4 F 66 16 80/46 L 95 10/21/22 08:00 10/21/22 08:00 10/21/22 08:00 10/21/22 08:00 10/21/22 08:00 General: Alert, In no apparent distress, Oriented x3 HEENT: Atraumatic, Normocephalic. JVD not distended Respiratory: Normal air movement, Diminished at bases. Cardiovascular: Edema/lymphedema BLE. Regular rate and rhythm. Gastrointestinal: Normal bowel sounds. Obese. Integumentary: Bilateral lower extremities with Lymphedema and Stasis dermatitis. Dressing clean dry and intact. Urinary: Suprapubic catheter. Laboratory Data - Reviewed Microbiology Data - Reviewed Imagings Data: - Reviewed Medication List: reviewed Assessment and Plan Problem List Severe Sepsis Urinary Tract Infection Lymphedema vs Cellulitis Suprapubic catheter, chronic Atrial fibrillation Morbid Obesity Acute on chronic kidney disease Anemia, Iron deficiency COPD CHF * multiple drug and food allergies * Severe Sepsis Secondary to Urinary Tract Infection and Bilateral Lower Extremity Cellulitis - chronic suprapubic catheter - CT abdomen 10/11: "Bilateral staghorn calculi kidneys. Mild bilateral hydronephrosis" - Urine culture 10/11: 3+ organisms detected ; >100,000 CFU/mL - Blood cultures 10/11: No growth to date - Due to extensive allergy history and history of MDR infections, patient was started on Ertapenem and Vancomycin (10/11-) - Currently on Ertapenem and Vancomycin (10/11-) and Fluconazole (10/20) - Leukocytosis resolved. Recommendations Due to patient developing low grade fever over the weekend, we will continue Ertapenem and Vancomycin to complete a total of 14 days of antibiotic therapy (10/11-10/24). She was also started on Fluconazole IV on 10/20. Switch to PO as tolerated. - BLE cellulitis: continue wound care - Pressure offloading measures - Apply barrier cream to buttocks Case discussed with Sarah Killian
[2022-10-21] MEDS: ENOXAPARIN 40 MG/0.4 ML SQ SCH (09:55)
[2022-10-21] MEDS: oxyBUTYnin chloride 5 MG TAB PO SCH ×2 (09:56→21:42)
[2022-10-21] MEDS: HYDROCODONE/APAP 5/325 MG TAB PO PRN (10:56)
--- NOTE | 2022-10-21 12:43 | P.PN ---
Subjective Date of Service: 10/21/22 Chief Complaint: severe sepsis Patient weakness in the left lower extremity and numbness in the first 3 fingers of left hand. No recorded fever over the past 24 hours Physical Examination - Vital Signs Temperature: 98.4 F Blood Pressure: 84/50 Pulse: 61 Respirations: 16 Pulse Ox (%): 96 Assessment And Plan - Plan Physical Exam: GEN: Oriented x3, NAD CV: Regular rate and rhythm, chronic lymphedema of lower extremities. Pulm: diminished at bases bilaterally, clear to auscultation bilaterally. ABD: Soft, nondistended, suprapubic cath in place, no tenderness Integumentary: Superficial ulcerations of b/l buttocks extending to gluteal folds; venous stasis dermatitis of bilateral lower extremities. Neuro: Normal speech. No focal motor deficit. vitals reviewed Problem List Severe sepsis secondary to UTI and possible cellulitis chronic suprapubic catheter chronic bladder calculi, and b/l staghorn calculi chronic lymphedema L hand paresthesia A-fib, new onset CLIFF on CKD Iron deficiency anemia chronic COPD chronic diastolic CHF LENO morbid obesity fibromyalgia h/o PE (June 2021) Severe sepsis secondary to UTI and cellulitis chronic suprapubic catheter chronic bladder calculi, and b/l staghorn calculi CT abdomen (10/11): Bilateral staghorn calculi kidneys, Mild bilateral hydronephrosis Ulceration involves the tissues of the buttocks with inflammatory changes in the fat extending to the gluteal crease. No fluid-filled abscess. No air. chronic suprapubic catheter, urine is chronically "dirty" Urine culture: Multiple organisms, too many to run in lab. Blood culture: NGTD ID is following. Continue Vancomycin and Ertapenem(10/11-) leukocytosis resolved Patient experienced intermittent fever for couple of days. No fever for 24 hours after starting Diflucan. Infectious disease to follow. cont PRN home tramadol strict i/o's IV fluid per nephrology. Diet as tolerated. Increase activity as tolerated. Continue PT chronic lymphedema recent admission for cellulitis, pt stopped antibiotics due to side effects, superficial ulcers / erythema of buttocks, and erythema up lateral aspect of left leg 10/14 - agreeable to have lymphedema wrap changed.. General surgery consulted, patient seen by Dr. Perdomo. No surgical intervention at this time per Dr. Perdomo. Continue aggressive local wound care. Continue PT A-fib, new onset Rate controlled. Doesn't want anticoagulation d/t previous bleeding complications Seen by cardiology Dr. Ann. Echo (10/14): EF: 50%, left atrial enlargement, atrial fibrillation, mild MR. CLIFF on CKD CT abdomen (10/11): Bilateral staghorn calculi kidneys and Mild bilateral hydronephrosis Patient will need f/u with urology outpatient. Nephrology is following. Renal function is relatively stable. IVF and Lasix per nephrology. L hand paresthesia/left leg weakness >1 month of symptoms intermittent suspect carpal tunnel. She is also complaining of left leg weakness. Obtain head CT. outpatient f/u, NCS/EMG if head CT is negative. Iron deficiency anemia monitor H&H. transfuse if hgb < 7 chronic COPD chronic diastolic CHF LENO morbid obesity fibromyalgia Continue home medications VTE: Lovenox Code: DNR
--- NOTE | 2022-10-21 13:40 | RAD REPORT ---
EXAM DESCRIPTION: CT - Head Brain Wo Cont - 10/21/2022 1:28 pm CLINICAL HISTORY: left leg weakness and left hand numbness Headache, drowsiness, CVA symptomology COMPARISON: <Comparisons> TECHNIQUE: All CT scans are performed using dose optimization technique as appropriate and may inclu de automated exposure control or mA/KV adjustment according to patient size. FINDINGS: No intracranial hemorrhage, hydrocephalus or extra-axial fluid collection.Mild generalized brain atrophy is present with mild periventricular and deep white matter chronic microvascular ische [place] changes.No areas of brain edema or evidence of midline shift. The paranasal sinuses and mastoids are clear. The calvarium is intact. IMPRESSION: No acute intracranial abnormality.
[2022-10-21] MEDS: FLUCONAZOLE 200mg IVPB 200 MG/100 ML BAG IV SCH (15:15)
[2022-10-21] MEDS: ERTAPENEM NA 1 GM in NA CHLORIDE 0.9% 100 ML IVPB SCH (17:21)
[2022-10-21] MEDS ORDERED: VANCOMYCIN 1.75 GM in NA CHLORIDE 0.9% 500 ML IVPB SCH (19:00)
[2022-10-22] MEDS: FUROSEMIDE 40 MG TABLET PO SCH ×3 (00:40→21:00)
--- NOTE | 2022-10-22 02:27 | PN ---
Date of Progress Note: 10/21/2022 Chief Complaint: Severe sepsis, chronic kidney disease, proteinuria. Subjective: The patient was found to have elevated creatinine up to 1.7. She has fluid overload. E nicola has improved. The patient is on Lasix and dose was changed to p.o. Lasix. Review of Systems: Denies chest pain, palpitation. Physical Examination: Lungs: Clear to auscultation bilaterally. Heart: S1, S2. Abdomen: Soft. Benign. Extremities: Slight edema. Dressing in place. Impression And Plan: 1.Acute kidney injury on chronic kidney disease. Serum creatinine level is gradually improving to 1 .5. Continue Lasix for volume control. Patient has fluid overload and edema. 2.Hypertension, controlled. Blood pressure is in acceptable range. 3.Nephrotic range proteinuria, probably secondary to focal segmental glomerulosclerosis due to chron ic obstruction. Serology workup was ordered and is negative. The patient is not a candidate for any TORSTEN inhibitor or angiotensin receptor elana. Patient is a good candidate for adding TORSTEN inhibitor or angiotensin receptor elana as outpatient to control proteinuria and to provide management for c hronic kidney disease and hypertension. 4.Urinary tract infection, on antibiotics. 5.Chronic bilateral lymphedema. Continue Lasix 80 mg twice a day. 6.Staghorn kidney stone with hypokalemia. The patient will need 24 hours urine collection for stone protocol. Consider potassium citrate outpatient. 7.Hyperphosphatemia. Monitor and re-evaluate intact PTH and 25-hydroxy vitamin D level. EB/MODL Voice ID: [id number] Report ID: [id number]
[2022-10-22 05:05] LABS: Potassium 3.8 mEq/L (3.5-5.1)
--- NOTE | 2022-10-22 06:59 | P.PN ---
Date of Service: 10/22/22 Subjective: doing okay, tired no acute events overnight BP low-normal; lasix held yesterday feels thighs have been swollen ROS: 10 point ROS as noted above, otherwise negative Physical Exam: GEN: Oriented x3, fatigued appearing HEENT: Normal conjunctiva, sclera anicteric CV: Regular rate and rhythm, chronic lymphedema, lower legs wrapped Pulm: Nonlabored respirations on RA at rest, diminished at bases bilaterally ABD: Soft, nontender, nondistended, suprapubic cath in place Integumentary: macerated skin, superficial ulcerations of b/l buttocks extending to gluteal folds Neuro: Normal speech, normal affect, diminished sensation at tips of left finger s, extends to wrist/base of thumb vitals reviewed Problem List Severe sepsis secondary to UTI and possible cellulitis chronic suprapubic catheter chronic bladder calculi, and b/l staghorn calculi chronic lymphedema L hand paresthesia A-fib, new onset CLIFF on CKD Iron deficiency anemia chronic COPD chronic diastolic CHF LENO morbid obesity fibromyalgia h/o PE (June 2021) Severe sepsis secondary to UTI and cellulitis chronic suprapubic catheter chronic bladder calculi, and b/l staghorn calculi CT abdomen (10/11): Bilateral staghorn calculi kidneys, Mild bilateral hydronephrosis Ulceration involves the tissues of the buttocks with inflammatory changes in the fat extending to the gluteal crease. No fluid-filled abscess. No air. chronic suprapubic catheter, urine is chronically "dirty", has purple bag syndrome Urine cx: Multiple organisms, too many to run in lab repeat urine cx without growth Blood cx: No growth ID consulted Continue Vancomycin and Ertapenem for now (10/11-10/24) x2 weeks Fluconazole added (10/20) d/t developing low grade fever Last fever 10/19, +leukocytosis resolved cont PRN home tramadol strict i/o's chronic lymphedema recent admission for cellulitis, pt stopped antibiotics due to side effects, superficial ulcers / erythema of buttocks, and erythema up lateral aspect of left leg patient did not allow lymphedema wraps to be taken down, adamant that there are no wounds on feet - son agreed 10/14 - agreeable to have lymphedema wraps changed, +pictures taken General surgery consulted - Dr. Perdomo no surgical intervention at this time - will follow Continue local wound care Continue PT A-fib, new onset went into a-fib 10/12 afternoon, rate controlled Doesn't want anticoagulation d/t previous bleeding complications Cardiology consulted Echo (10/14): EF: 50%, left atrial enlargement, atrial fibrillation, mild MR CLIFF on CKD due to toxic ATN, poor perfusion CT abdomen (10/11): Bilateral staghorn calculi kidneys and Mild bilateral hydronephrosis will need f/u with urology outpatient Nephrology consulted improving continue PO Lasix L hand paresthesia >1 month of symptoms intermittently does not extend past wrist mostly affecting thumb and first 2-3 digits suspect carpal tunnel CT head (10/21): no acute intracranial abnormality. outpatient f/u, NCS/EMG Iron deficiency anemia would likely benefit from iron supplementation once infection improves / resolves monitor H&H. transfuse if hgb < 7 chronic COPD chronic diastolic CHF LENO morbid obesity fibromyalgia Confirm home medications, Restarted as appropriate VTE: Lovenox Code: DNR Dispo: SNF, pending approval
[2022-10-22] MEDS ORDERED: POTASSIUM CL SA 10 MEQ TAB PO ONE (09:00)
[2022-10-22] MEDS: ENSURE MAX PROTEIN 330 ML LIQUID PO SCH ×2 (09:00→21:26)
--- NOTE | 2022-10-22 09:52 | P.PN ---
Date of Service: 10/22/22 Chief Complaint: severe sepsis Subjective: Denies any cough or chest pain. No abdominal pain or urinary symptoms. No acute events reported overnight. + excoriated buttocks. Physical Examination Temp Pulse Resp BP Pulse Ox 98.2 F 61 17 95/45 L 97 10/22/22 08:00 10/22/22 08:00 10/22/22 08:00 10/22/22 08:00 10/22/22 08:00 General: Alert, In no apparent distress, Oriented x3 HEENT: Atraumatic, Normocephalic. JVD not distended Respiratory: Normal air movement, Diminished at bases. no respiratory distress. Cardiovascular: Edema/lymphedema BLE. Regular rate and rhythm. Gastrointestinal: Normal bowel sounds. Obese. Integumentary: Bilateral lower extremities with Lymphedema and Stasis dermatitis. Dressing clean dry and intact. Urinary: Suprapubic catheter. Laboratory Data - Reviewed Microbiology Data - Reviewed Imagings Data: - Reviewed Medication List: Reviewed Assessment and Plan Problem List Severe Sepsis Urinary Tract Infection Lymphedema vs Cellulitis Suprapubic catheter, chronic Atrial fibrillation Morbid Obesity Acute on chronic kidney disease Anemia, Iron deficiency COPD CHF Severe Sepsis Secondary to Urinary Tract Infection and Bilateral Lower Extremity Cellulitis - chronic suprapubic catheter - CT abdomen 10/11: "Bilateral staghorn calculi kidneys. Mild bilateral hydronephrosis" - Urine culture 10/11: 3+ organisms detected ; >100,000 CFU/mL - Blood cultures 10/11: No growth to date - Due to extensive allergy history and history of MDR infections, patient was started on Ertapenem and Vancomycin (10/11-) - Currently on Ertapenem and Vancomycin (10/11-) - Fluconazole added on 10/20 - Leukocytosis resolved. Afebrile. Recommendations Extend duration of Ertapenem and Vancomycin to 14 days total of antibiotic therapy (10/11-10/24). - Pressure offloading measures - Apply barrier cream to buttocks - Nutritional supplementation as needed Case discussed with Sarah Killian
[2022-10-22] MEDS: oxyBUTYnin chloride 5 MG TAB PO SCH ×2 (09:56→21:27)
[2022-10-22] MEDS: ENOXAPARIN 40 MG/0.4 ML SQ SCH (09:56)
[2022-10-22] MEDS: BENZONATATE 100 MG CAP PO PRN ×2 (09:58→21:31)
--- NOTE | 2022-10-22 13:50 | PN ---
Date of Progress Note: 10/22/2022 Subjective: The patient was admitted to the hospital with septic shock, cellulitis, and pneumonia. The patient had acute kidney injury secondary to prerenal, started on IV hydration, recovered. Then, the patient started complaining from leg swelling. The patient had chronic lymphedema. Resumed sto cking socks, resumed Lasix. The patient's kidney function continued to improve. Physical Examination: Vital Signs: Blood pressure 117/58, pulse of 73, afebrile. The patient had good urine output of 230 0. The patient negative of 1800. Chest: Decreased entry bilateral base. Heart: S1, S2. Systolic murmur. Abdomen: Morbidly obese. Has suprapubic catheter. Extremity: Lymphedema bilateral with compression dressing. Neurologic: Alert. No focality. Laboratory Data: WBC 8.4, H and H 9.3/27.6. Sodium 138, potassium 3.8, bicarb 29, BUN 30, creatinin e 1.6, GFR 33, calcium 7.6. Current Medications: The patient on include;' 1.Ertapenem. 2.Fluconazole. 3.Vancomycin. 4.Lovenox. 5.Lasix 80 b.i.d. 6.Zofran. 7.KCl. 8.Oxybutynin. Assessment And Plan: 1.Chronic kidney disease, status post acute kidney injury secondary to toxic ATN, poor perfusion ATN , back to baseline. The patient is still on the over volume side. Blood pressure marginally low. I am going to continue current dose of the Lasix and we will monitor the patient. 2.Hypertension, currently blood pressure on the lower side. Keep utilizing the blood pressure for d iuresis. Hold all other blood pressure medication. 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 Serol ogy was negative for the patient. Kidney function improved. I am going to continue current treatmen t. 4.Urinary tract infection. Continue ertapenem. 5.Lymphedema. We will continue diuresis. 6.Staghorn kidney stone with hypokalemia. I am going to resume the sodium bicarb and we will follow up the patient. EMMA/MICHELLE Voice ID: [id number] Report ID: [id number]
[2022-10-22] MEDS: FLUCONAZOLE 200mg IVPB 200 MG/100 ML BAG IV SCH (14:29)
[2022-10-22] MEDS: ERTAPENEM NA 1 GM in NA CHLORIDE 0.9% 100 ML IVPB SCH (17:28)
[2022-10-22] MEDS ORDERED: VANCOMYCIN 1.75 GM in NA CHLORIDE 0.9% 500 ML IVPB SCH (18:00)
[2022-10-22] MEDS: SODIUM BICARB 325 MG TAB PO SCH ×2 (21:26→21:27)
[2022-10-23 04:45] LABS: Magnesium 2.2 mg/dL (1.6-2.4); Potassium 3.6 mEq/L (3.5-5.1)
--- NOTE | 2022-10-23 06:53 | P.PN ---
Date of Service: 10/23/22 Subjective: Feeling better today no acute events overnight afebrile doesn't feel ambulating as well as at home due to weakness (generalized) ROS: 10 point ROS as noted above, otherwise negative Physical Exam: GEN: Oriented x3, NAD HEENT: Normal conjunctiva, sclera anicteric CV: Regular rate and rhythm, chronic lymphedema, lower legs wrapped Pulm: Nonlabored respirations at rest, diminished at bases bilaterally ABD: Soft, nontender, nondistended, suprapubic cath in place Integumentary: macerated skin, superficial ulcerations of b/l buttocks extending to gluteal folds Neuro: Normal speech, normal affect, diminished sensation at tips of left fingers vitals reviewed Problem List Severe sepsis secondary to UTI and possible cellulitis chronic suprapubic catheter chronic bladder calculi, and b/l staghorn calculi chronic lymphedema L hand paresthesia A-fib, new onset CLIFF on CKD Iron deficiency anemia chronic COPD chronic diastolic CHF LENO morbid obesity fibromyalgia h/o PE (June 2021) Severe sepsis secondary to UTI and cellulitis chronic suprapubic catheter chronic bladder calculi, and b/l staghorn calculi CT abdomen (10/11): Bilateral staghorn calculi kidneys, Mild bilateral hydronephrosis Ulceration involves the tissues of the buttocks with inflammatory changes in the fat extending to the gluteal crease. No fluid-filled abscess. No air. chronic suprapubic catheter, urine is chronically "dirty", has history of purple bag syndrome Urine cx: Multiple organisms, too many to run in lab repeat urine cx without growth Blood cx: No growth ID consulted Continue Ertapenem x2 weeks (10/11-10/24) Continue Fluconazole (10/20-10/24) Vanc DCd 10/23 Last fever 10/19, +leukocytosis resolved cont PRN home tramadol strict i/o's chronic lymphedema recent admission for cellulitis, pt stopped antibiotics due to side effects, superficial ulcers / erythema of buttocks, and erythema up lateral aspect of left leg patient did not allow lymphedema wraps to be taken down, adamant that there are no wounds on feet - son agreed 10/14 - agreeable to have lymphedema wraps changed, +pictures taken General surgery consulted - Dr. Perdomo no surgical intervention at this time - will follow Continue local wound care Continue PT A-fib, new onset went into a-fib 10/12 afternoon, rate controlled Doesn't want anticoagulation d/t previous bleeding complications Cardiology consulted Echo (10/14): EF: 50%, left atrial enlargement, atrial fibrillation, mild MR CLIFF on CKD due to toxic ATN, poor perfusion CT abdomen (10/11): Bilateral staghorn calculi kidneys and Mild bilateral hydronephrosis will need f/u with urology outpatient Nephrology consulted improving continue PO Lasix L hand paresthesia >1 month of symptoms intermittently does not extend past wrist mostly affecting thumb and first 2-3 digits suspect carpal tunnel CT head (10/21): no acute intracranial abnormality. outpatient f/u, NCS/EMG Iron deficiency anemia would likely benefit from iron supplementation once infection improves / resolves monitor H&H. transfuse if hgb < 7 chronic COPD chronic diastolic CHF LENO morbid obesity fibromyalgia Confirm home medications, Restarted as appropriate VTE: Lovenox Code: DNR Dispo: SNF - [facility] - pending approval
[2022-10-23] MEDS ORDERED: POTASSIUM CL SA 10 MEQ TAB PO ONE (09:00)
[2022-10-23] MEDS: ENSURE MAX PROTEIN 330 ML LIQUID PO SCH ×2 (09:00→21:00)
[2022-10-23] MEDS: SODIUM BICARB 325 MG TAB PO SCH ×2 (09:17→21:00)
[2022-10-23] MEDS: FUROSEMIDE 40 MG TABLET PO SCH ×2 (09:18→21:00)
[2022-10-23] MEDS: ENOXAPARIN 40 MG/0.4 ML SQ SCH (09:18)
[2022-10-23] MEDS: oxyBUTYnin chloride 5 MG TAB PO SCH ×2 (09:19→21:00)
--- NOTE | 2022-10-23 09:25 | P.PN ---
Date of Service: 10/23/22 Chief Complaint: severe sepsis Subjective: No acute events reported overnight. Physical Examination Temp Pulse Resp BP Pulse Ox 97.4 F 71 17 113/52 L 95 10/23/22 04:00 10/23/22 09:18 10/23/22 04:00 10/23/22 09:18 10/23/22 04:00 General: Alert, In no apparent distress, Oriented x3. Obese. HEENT: Atraumatic, Normocephalic. JVD not distended Respiratory: Normal air movement, Diminished at bases. no respiratory distress. Cardiovascular: Edema/lymphedema BLE. Regular rate and rhythm. Gastrointestinal: Normal bowel sounds. Non-tender. Integumentary: Bilateral lower extremities with Lymphedema and Stasis dermatitis. Urinary: Suprapubic catheter. Laboratory Data - Reviewed Microbiology Data - Reviewed Imagings Data: - Reviewed Medication List: Reviewed Assessment and Plan Problem List Severe Sepsis Urinary Tract Infection Lymphedema vs Cellulitis Suprapubic catheter, chronic Atrial fibrillation Morbid Obesity Acute on chronic kidney disease Anemia, Iron deficiency COPD CHF Severe Sepsis Secondary to Urinary Tract Infection and Bilateral Lower Extremity Cellulitis - chronic suprapubic catheter - CT abdomen 10/11: "Bilateral staghorn calculi kidneys. Mild bilateral hydronephrosis" - Urine culture 10/11: 3+ organisms detected ; >100,000 CFU/mL - Blood cultures 10/11: No growth to date - Due to extensive allergy history and history of MDR infections, patient was started on Ertapenem and Vancomycin (10/11-) - Currently on Ertapenem - Previously on Vancomycin (10/11-10/22) - Fluconazole added on 10/20 - Leukocytosis resolved. Afebrile. Duration of antibiotic therapy extended to 14 days total due to fever development over the weekend. End date 10.24. Recommendations Continue antibiotic therapy for 14 days (10/11-10/24) - On Ertapenem day 13 of 14. - On Fluconazole day 3 - Apply barrier cream to buttocks. Pressure offloading measures Case discussed with Sarah Killian
[2022-10-23] MEDS ORDERED: FUROSEMIDE 40 MG/4 ML VIAL IV ONE (12:10)
[2022-10-23] MEDS: FLUCONAZOLE 200mg IVPB 200 MG/100 ML BAG IV SCH (13:27)
--- NOTE | 2022-10-23 14:53 | PN ---
Date of Progress Note: 10/23/2022 Subjective: The patient was admitted to the hospital with acute kidney injury, anasarca. Her acute kidney injury was secondary to cardiorenal. The patient was maintained on diuresis currently for her severe lymphedema. The patient continued to improve. The patient still has significant lymphedema. Physical Examination: When I saw the patient; blood pressure 113/53, pulse of 71, afebrile. The patient had good urine output of 4 L, negative of 2500. The patient's weight, no changes. Current Medications: The patient on include; 1. Lovenox. 2. Fluconazole. 3. Ertapenem. 4. Lasix 80 b.i.d. 5. Sodium bicarb 650 b.i.d. 6. Tylenol. 7. Zofran. 8. Hydrocodone. 9. Benzonatate. 10. KCl. Assessment And Plan: 1. Acute kidney injury secondary to prerenal, cardiorenal. Still the patient on the over volume side. I am going to continue the patient on the diuresis. The patient looked to me on the over volume side. I am going to go ahead and give her extra dose of Lasix today and we will continue to monitor the patient. 2. Hypertension, controlled, optimal. We will keep utilizing the blood pressure for more diuresis. 3. Urinary tract infection. Continue current antibiotic. 4. Nephrotic range proteinuria. The patient will be a good candidate for TORSTEN inhibitor or ARB as outpatient. We will try to challenge the patient. Mostly, it is secondary to FSGS secondary to obstructive uropathy. 5. Lymphedema. Continue diuresis. We will give extra dose of Lasix today. 6. Staghorn kidney stone. Potassium citrate not available. The patient was started back on sodium bicarb. We will follow up response. The patient cleared from the Renal standpoint for discharge planning. We will follow up as outpatient. Time spent examining the patient [id number], reviewing data, lab and radiology, placing order, discussing the case with the patient, discussing the case with the member including nursing staffand the hospitalist more than 35 minutes. BUCK Voice ID: [id number] Report ID: [id number] CRIS
[2022-10-23] MEDS: DOCUSATE NA 100 MG CAP PO SCH (18:02)
[2022-10-23] MEDS: ERTAPENEM NA 1 GM in NA CHLORIDE 0.9% 100 ML IVPB SCH (18:02)
[2022-10-23] MEDS: BENZONATATE 100 MG CAP PO PRN (21:00)
[2022-10-24 03:34] LABS: Hematocrit 27.4 % (36.0-45.0); MCV 82.4 fL (80-100); MPV 8.1 fL (7.6-11.3); Platelets 298 thou/uL (152-406); RBC Red Blood Cell Count 3.32 M/uL (3.86-4.86)
[2022-10-24 03:49] LABS: Potassium 3.6 mEq/L (3.5-5.1)
[2022-10-24] MEDS ORDERED: POTASSIUM CL SA 10 MEQ TAB PO ONE (05:00)
--- NOTE | 2022-10-24 06:44 | P.PN ---
Date of Service: 10/24/22 Subjective: Doing okay feeling slightly better; but denies any change in weakness states she tried getting up to BSC with nursing assistance, and felt like she was going to fall due to weakness Will work with PT today ROS: 10 point ROS as noted above, otherwise negative Physical Exam: GEN: Oriented x3, NAD HEENT: Normal conjunctiva, sclera anicteric CV: Regular rate and rhythm, chronic lymphedema, lower legs wrapped Pulm: Nonlabored respirations at rest, diminished at bases bilaterally ABD: Soft, nontender, nondistended, suprapubic cath in place Integumentary: macerated skin, superficial ulcerations of b/l buttocks extending to gluteal folds Neuro: Normal speech, normal affect, diminished sensation at tips of left fingers vitals reviewed Problem List Severe sepsis secondary to UTI and possible cellulitis chronic suprapubic catheter chronic bladder calculi, and b/l staghorn calculi chronic lymphedema L hand paresthesia A-fib, new onset; paroxysmal CLIFF on CKD Iron deficiency anemia chronic COPD chronic diastolic CHF LENO morbid obesity fibromyalgia h/o PE (June 2021) Severe sepsis secondary to UTI and cellulitis chronic suprapubic catheter chronic bladder calculi, and b/l staghorn calculi CT abdomen (10/11): Bilateral staghorn calculi kidneys, Mild bilateral hydronephrosis Ulceration involves the tissues of the buttocks with inflammatory changes in the fat extending to the gluteal crease. No fluid-filled abscess. No air. surgery and ID consulted continue wound care / barrier cream and offload/turn patient chronic suprapubic catheter, urine is chronically "dirty", has history of purple bag syndrome Urine cx: Multiple organisms, too many to run in lab repeat urine cx without growth Blood cx: No growth ID consulted Continue Ertapenem x2 weeks (10/11-10/24) Continue Fluconazole (10/20-10/24) Vanc DCd 10/23 due to high trough levels Last fever 10/19, +leukocytosis resolved cont PRN home tramadol strict i/o's chronic lymphedema recent admission for cellulitis, pt stopped antibiotics due to side effects, superficial ulcers / erythema of buttocks, and erythema up lateral aspect of left leg patient did not allow lymphedema wraps to be taken down, adamant that there are no wounds on feet - son agreed 10/14 - agreeable to have lymphedema wraps changed, +pictures taken General surgery consulted - Dr. Perdomo no surgical intervention at this time - will follow Continue local wound care Continue PT A-fib, new onset went into a-fib 10/12 afternoon, rate controlled Doesn't want anticoagulation d/t previous bleeding complications Cardiology consulted Echo (10/14): EF: 50%, left atrial enlargement, atrial fibrillation, mild MR sinus rhythm now CLIFF on CKD due to toxic ATN, poor perfusion CT abdomen (10/11): Bilateral staghorn calculi kidneys and Mild bilateral hydronephrosis will need f/u with urology outpatient Nephrology consulted improving continue PO Lasix L hand paresthesia >1 month of symptoms intermittently does not extend past wrist mostly affecting thumb and first 2-3 digits suspect carpal tunnel CT head (10/21): no acute intracranial abnormality. outpatient f/u, NCS/EMG Iron deficiency anemia would likely benefit from iron supplementation once infection improves / resolves monitor H&H. transfuse if hgb < 7 chronic COPD chronic diastolic CHF LENO morbid obesity fibromyalgia Confirm home medications, Restarted as appropriate VTE: Lovenox Code: DNR Dispo: SNF - [facility] - pending approval / peer to peer
[2022-10-24] MEDS: DOCUSATE NA 100 MG CAP PO SCH (08:45)
[2022-10-24] MEDS: ENOXAPARIN 40 MG/0.4 ML SQ SCH (08:45)
[2022-10-24] MEDS: FUROSEMIDE 40 MG TABLET PO SCH ×3 (08:45→21:16)
[2022-10-24] MEDS: oxyBUTYnin chloride 5 MG TAB PO SCH ×2 (08:45→21:15)
[2022-10-24] MEDS: ENSURE MAX PROTEIN 330 ML LIQUID PO SCH ×2 (08:45→21:00)
[2022-10-24] MEDS: SODIUM BICARB 325 MG TAB PO SCH ×2 (08:45→21:15)
--- NOTE | 2022-10-24 09:04 | P.PN ---
Date of Service: 10/24/22 Chief Complaint: severe sepsis Subjective: No acute events reported overnight. In no apparent distress. On last day of IV antibiotics. Physical Examination Temp Pulse Resp BP Pulse Ox 98.5 F 66 16 116/56 L 91 10/24/22 08:00 10/24/22 08:00 10/24/22 08:00 10/24/22 08:00 10/24/22 08:00 General: Alert, In no apparent distress, Oriented x3. Obese. HEENT: Atraumatic, Normocephalic. Neck: supple. JVD not distended Respiratory: Diminished at bases. unlabored respirations. Cardiovascular: Edema/lymphedema BLE. Regular rate. Gastrointestinal: Normal bowel sounds. Non-tender. No guarding. Integumentary: BLE chronic Lymphedema and Stasis dermatitis. Dressing to BLE clean dry and intact. Urinary: Suprapubic catheter draining yellow colored urine Laboratory Data - Reviewed Microbiology Data - Reviewed Imagings Data: - Reviewed Medication List: Reviewed Assessment and Plan Problem List Severe Sepsis Urinary Tract Infection Lymphedema vs Cellulitis Suprapubic catheter, chronic Atrial fibrillation Morbid Obesity Acute on chronic kidney disease Anemia, Iron deficiency COPD CHF Severe Sepsis Secondary to Urinary Tract Infection and Bilateral Lower Extremity Cellulitis - chronic suprapubic catheter - CT abdomen 10/11: "Bilateral staghorn calculi kidneys. Mild bilateral hydronephrosis" - Urine culture 10/11: 3+ organisms detected ; >100,000 CFU/mL - Blood cultures 10/11: No growth to date - Due to extensive allergy history and history of MDR infections, patient was started on Ertapenem and Vancomycin (10/11-) - Currently on Ertapenem - Previously on Vancomycin (10/11-10/22) - Fluconazole added on 10/20 - Leukocytosis resolved. Afebrile. Duration of antibiotic therapy extended to 14 days total due to fever development over the weekend. End date 10.24. Recommendations Day 14 of 14 on antibiotic therapy (10/11-10/24) Discontinue Ertapenem and Fluconazole after today's dose. - Apply barrier cream to buttocks. Pressure offloading measures Case discussed with Christopher Killian.
[2022-10-24] MEDS: HYDROCODONE/APAP 5/325 MG TAB PO PRN (12:14)
--- NOTE | 2022-10-24 12:33 | PN ---
Date of Progress Note: 10/24/2022 Subjective: The patient was admitted with acute kidney injury, anasarca. The patient has been on di uresis. The patient responding very well. Yesterday, we gave extra dose of Lasix. Physical Examination: Vital Signs: Blood pressure 108/53, pulse of 70, afebrile. The patient had good urine output of 4 L . The patient negative of 2500. The patient lost 8 pounds from yesterday. Chest: Decreased entry bilateral. Heart: S1, S2. Systolic murmur. Abdomen: Morbidly obese. Suprapubic catheter. Extremity: Lymphedema bilateral. Laboratory Data: Hemoglobin 9.1. Sodium 140, potassium 3.6, bicarb 33, BUN 25, creatinine 1.6, calc ium 7.6, magnesium 2.3. Current Medications: The patient on include; 1.Ertapenem. 2.Fluconazole. 3.Lasix 80 b.i.d. 4.Sodium bicarb. 5.KCl. 6.Oxybutynin. Assessment And Plan: 1.Acute kidney injury secondary to cardiorenal. The patient back to baseline. Looked to me still o n the over volume side. I am going to increase Lasix to 80 t.i.d. and we will continue to monitor. 2.Obstructive uropathy secondary to staghorn. The patient was started on oral bicarb. I am going t o go ahead and repeat UA to see the degree of urine alkalization and we will follow up with primary. 3.Hypertension, controlled, optimal. Continue to utilize blood pressure for more diuresis. 4.Urinary tract infection, complicated. Continue current antibiotic dose appropriate. 5.Lymphedema. We will continue diuresis to optimize fluid status. EMMA/MODL Voice ID: [id number] Report ID: [id number]
[2022-10-24] MEDS ORDERED: DOCUSATE NA 100 MG CAP PO PRN (13:08)
[2022-10-24] MEDS: FLUCONAZOLE 200mg IVPB 200 MG/100 ML BAG IV SCH (13:48)
[2022-10-24] MEDS ORDERED: ERTAPENEM NA 1 GM in NA CHLORIDE 0.9% 100 ML IVPB SCH (14:00)
[2022-10-24 17:06] LABS: Specific Gravity 1.007 (1.005-1.030); Urine Bacteria <20 /HPF (<20); Urine Bilirubin NEGATIVE (Negative); Urine Blood 3+ (OVER) (Negative); Urine Clarity Extremely Turbid (Clear); Urine Color Colorless (Yellow); Urine Crystals Unidentified Few /HPF (None Seen); Urine Glucose NEGATIVE (Negative); Urine Mucus Slight /HPF (None Seen); Urine Protein NEGATIVE (Negative); Urine RBC >50 /HPF (None Seen); Urine Urobilinogen Normal (Normal); Urine WBC Clump Rare /HPF (None Seen); Urine pH 7.5 (5.0-7.0)
[2022-10-24] MEDS: BENZONATATE 100 MG CAP PO PRN (22:19)
--- NOTE | 2022-10-25 06:50 | P.PN ---
Date of Service: 10/25/22 Subjective: most limited by pain / decreased strength with ambulation/transfers/bed mobility Became unconscious yesterday after trying to get to the edge of the bed with PT yesterday no acute events overnight afebrile ROS: 10 point ROS as noted above, otherwise negative Physical Exam: GEN: Oriented x3, NAD HEENT: Normal conjunctiva, sclera anicteric CV: Regular rate and rhythm, chronic lymphedema, lower legs wrapped Pulm: Nonlabored respirations at rest, diminished at bases bilaterally ABD: Soft, nontender, nondistended, suprapubic cath in place Integumentary: macerated skin, superficial ulcerations of b/l buttocks extending to gluteal folds Neuro: Normal speech, normal affect, diminished sensation at tips of left fingers vitals reviewed Problem List Severe sepsis secondary to UTI and possible cellulitis chronic suprapubic catheter chronic bladder calculi, and b/l staghorn calculi chronic lymphedema L hand paresthesia A-fib, new onset; paroxysmal CLIFF on CKD Iron deficiency anemia chronic COPD chronic diastolic CHF LENO morbid obesity fibromyalgia h/o PE (June 2021) Severe sepsis secondary to UTI and cellulitis chronic suprapubic catheter chronic bladder calculi, and b/l staghorn calculi CT abdomen (10/11): Bilateral staghorn calculi kidneys, Mild bilateral hydronephrosis Ulceration involves the tissues of the buttocks with inflammatory changes in the fat extending to the gluteal crease. No fluid-filled abscess. No air. surgery and ID consulted continue wound care / barrier cream and offload/turn patient chronic suprapubic catheter, urine is chronically "dirty", has history of purple bag syndrome -- not currently purple Urine cx: Multiple organisms, too many to run in lab repeat urine cx without growth Blood cx: No growth ID consulted completed 2 week course of vanc / ertapenem (10/11-10/24) Fluconazole dc'd (10/20-10/24) Last fever 10/19, +leukocytosis resolved cont PRN home tramadol strict i/o's chronic lymphedema recent admission for cellulitis, pt stopped antibiotics due to side effects, superficial ulcers / erythema of buttocks, and erythema up lateral aspect of left leg 10/14 - agreeable to have lymphedema wraps changed, +pictures taken General surgery consulted - Dr. Perdomo no surgical intervention at this time - will follow Continue local wound care Continue PT A-fib, new onset went into a-fib 10/12 afternoon, rate controlled Doesn't want anticoagulation d/t previous bleeding complications Cardiology consulted Echo (10/14): EF: 50%, left atrial enlargement, atrial fibrillation, mild MR sinus rhythm now CLIFF on CKD due to toxic ATN, poor perfusion CT abdomen (10/11): Bilateral staghorn calculi kidneys and Mild bilateral hydronephrosis will need f/u with urology outpatient Nephrology consulted improving continue PO Lasix L hand paresthesia >1 month of symptoms intermittently does not extend past wrist mostly affecting thumb and first 2-3 digits suspect carpal tunnel CT head (10/21): no acute intracranial abnormality. outpatient f/u, NCS/EMG Iron deficiency anemia would likely benefit from iron supplementation once infection improves / resolves monitor H&H. transfuse if hgb < 7 chronic COPD chronic diastolic CHF LENO morbid obesity fibromyalgia Confirm home medications, Restarted as appropriate VTE: Lovenox Code: DNR Dispo: SNF - [facility] - pending appeal approval patient was ambulatory at home with 2 canes, and lift chair to help get up. In the last week in hospital, has gotten weaker, requiring mod-max assist to stand, and assistance to take a few steps, patient no longer able to ambulate with canes/walker would benefit from SNF / PT to preserve her last remaining physical activity / function Even with a lift chair, she would not be able to step /walk once it gets her up.
[2022-10-25 07:18] LABS: Magnesium 2.2 mg/dL (1.6-2.4); Potassium 3.4 mEq/L (3.5-5.1)
--- NOTE | 2022-10-25 08:31 | P.PN ---
Date of Service: 10/25/22 Chief Complaint: severe sepsis Subjective: 14 days of antibiotics completed. No acute events reported overnight. Discharge planning per hospitalist/case management Physical Examination Temp Pulse Resp BP Pulse Ox 97.8 F 63 16 114/55 L 95 10/25/22 04:00 10/25/22 04:00 10/25/22 04:00 10/25/22 04:00 10/25/22 04:00 General: Alert, In no apparent distress, Oriented x3. Obese. HEENT: Atraumatic, Normocephalic. Neck: supple. JVD not distended Respiratory: Diminished at bases. unlabored respirations. Cardiovascular: Edema/lymphedema BLE. Regular rate. Gastrointestinal: Normal bowel sounds. Non-tender. No guarding. Integumentary: BLE chronic Lymphedema and Stasis dermatitis. Dressing to BLE clean dry and intact. Urinary: Suprapubic catheter draining yellow colored urine Laboratory Data - Reviewed Microbiology Data - Reviewed Imagings Data: - Reviewed Medication List: Acetaminophen (Acetaminophen 500 Mg Tab) 500 mg PO Q4HP PRN PRN Reason: TEMP > 100.4' F Last Admin: 10/19/22 22:07 Dose: 500 mg Hydrocodone Bitart/Acetaminophen (Hydrocodone/Apap 5/325 Mg Tab) 1 tab PO Q6H PRN PRN Reason: Pain scale 5-7 (Moderate) Last Admin: 10/24/22 12:14 Dose: 1 tab Benzonatate (Benzonatate 100 Mg Cap) 100 mg PO TID PRN PRN Reason: COUGH Last Admin: 10/24/22 22:19 Dose: 100 mg Docusate Sodium (Docusate Na 100 Mg Cap) 100 mg PO DAILY PRN PRN Reason: CONSTIPATION Enoxaparin Sodium (Enoxaparin 40 Mg/0.4 Ml) 40 mg SQ DAILY [facility] Last Admin: 10/24/22 08:45 Dose: 40 mg Furosemide (Furosemide 40 Mg Tablet) 80 mg PO TID [facility] Last Admin: 10/24/22 21:16 Dose: 80 mg Ondansetron HCl (Ondansetron 4 Mg/2 Ml Vial) 4 mg IV Q6HP PRN PRN Reason: NAUSEA / VOMITING Last Admin: 10/21/22 02:23 Dose: 4 mg Oxybutynin Chloride (Oxybutynin Chloride 5 Mg Tab) 5 mg PO BID [facility] Last Admin: 10/24/22 21:15 Dose: 5 mg Protein (Ensure Max Protein 330 Ml Liquid) 330 ml PO BID [facility] Last Admin: 10/24/22 21:00 Dose: 330 ml Assessment and Plan Problem List Severe Sepsis Urinary Tract Infection Lymphedema vs Cellulitis Suprapubic catheter, chronic Atrial fibrillation Morbid Obesity Acute on chronic kidney disease Anemia, Iron deficiency COPD CHF Severe Sepsis Secondary to Urinary Tract Infection and Bilateral Lower Extremity Cellulitis - Due to extensive allergy history and history of MDR infections, patient was started on Ertapenem and Vancomycin (10/11-) - chronic suprapubic catheter - CT abdomen 10/11: "Bilateral staghorn calculi kidneys. Mild bilateral hydronephrosis" - Urine culture 10/11: 3+ organisms detected ; >100,000 CFU/mL - Blood cultures 10/11: No growth to date - Previously on Vancomycin (10/11-10/22) - Fluconazole (10/20-) - Leukocytosis resolved. Afebrile. Duration of antibiotic therapy extended to 14 days total due to fever development over the weekend. End date 10.24. Recommendations Completed 14 days of antibiotic therapy (10/11-10/24) for CAUTI (POA) and BLE Cellulitis - Apply barrier cream to buttocks. Pressure offloading measures - Nutritional supplementation Case discussed with Sarah Killian
[2022-10-25] MEDS: ENSURE MAX PROTEIN 330 ML LIQUID PO SCH ×2 (09:00→20:51)
[2022-10-25] MEDS: FUROSEMIDE 40 MG TABLET PO SCH ×3 (09:48→20:51)
[2022-10-25] MEDS: ENOXAPARIN 40 MG/0.4 ML SQ SCH (09:48)
[2022-10-25] MEDS: SODIUM BICARB 325 MG TAB PO SCH ×2 (09:49→20:51)
[2022-10-25] MEDS: oxyBUTYnin chloride 5 MG TAB PO SCH ×2 (09:49→20:51)
--- NOTE | 2022-10-25 14:40 | P.PN ---
Subjective Date of Service: 10/25/22 Chief Complaint: severe sepsis Subjective: No new changes Physical Examination - Vital Signs Temperature: 97.7 F Blood Pressure: 108/54 Pulse: 66 Respirations: 16 Pulse Ox (%): 96 - Physical Exam General: Other (chronically ill appearing) HEENT: Atraumatic, Normocephalic Neck: Supple Respiratory: Other (symmetric chest expansion) Cardiovascular: No rubs, No murmurs Gastrointestinal: Soft and benign Musculoskeletal: No clubbing Integumentary: No warmth Neurological: Normal tone Urinary: Other (no bladder distention) External genitalia: Deferred Rectal: Deferred Assessment And Plan - Plan 1. CLIFF 2/2 ATN on CKD. CLIFF improved. Continue Lasix 80 mg po tid. [place] by mouth fluid intake. 2. Hypertension, controlled, optimal. Continue current treatment. 3. 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 Low Na diet. 4. Urinary tract infection. On abx. 5. Chronic BLE lymphedema. Lasix as above 6. Staghorn kidney stone with hypokalemia. Cont oral bicarb. 7. Hyperphosphatemia. Monitor 8. Anemia. Monitor CBC.
[2022-10-25] MEDS: BENZONATATE 100 MG CAP PO PRN (20:51)
[2022-10-26] MEDS ORDERED: LOPERAMIDE HCL 2 MG CAPSULE PO STA (04:56)
[2022-10-26 05:46] LABS: Hematocrit 27.8 % (36.0-45.0); MPV 8.2 fL (7.6-11.3); Platelets 318 thou/uL (152-406); RBC Red Blood Cell Count 3.39 M/uL (3.86-4.86)
[2022-10-26 06:05] LABS: Magnesium 2.1 mg/dL (1.6-2.4); Potassium 2.9 mEq/L (3.5-5.1)
[2022-10-26] MEDS ORDERED: KCL 20 MEQ/100 mL IVPB 20 MEQ/100 ML BAG IV SCH (06:15)
[2022-10-26] MEDS ORDERED: NA CHLORIDE 0.9% 0 ML ONE (06:39)
--- NOTE | 2022-10-26 06:53 | P.PN ---
Date of Service: 10/26/22 Subjective: doing okay ~3 BM over last 24 hours; states she can't tell when she is going / needs to go, since admission no acute events overnight afebrile ROS: 10 point ROS as noted above, otherwise negative Physical Exam: GEN: Oriented x3, NAD HEENT: Normal conjunctiva, sclera anicteric CV: Regular rate and rhythm, chronic lymphedema, lower legs wrapped Pulm: Nonlabored respirations at rest, diminished at bases bilaterally ABD: Soft, nontender, nondistended, suprapubic cath in place Integumentary: macerated skin, superficial ulcerations of b/l buttocks extending to gluteal folds Neuro: Normal speech, normal affect, diminished sensation at tips of left fingers vitals reviewed Problem List Severe sepsis secondary to UTI and possible cellulitis chronic suprapubic catheter chronic bladder calculi, and b/l staghorn calculi chronic lymphedema A-fib, new onset; paroxysmal CLIFF on CKD due to toxic ATN, poor perfusion L hand paresthesia Iron deficiency anemia chronic COPD chronic diastolic CHF LENO morbid obesity fibromyalgia h/o PE (June 2021) Severe sepsis secondary to UTI and cellulitis chronic suprapubic catheter chronic bladder calculi, and b/l staghorn calculi CT abdomen (10/11): Bilateral staghorn calculi kidneys, Mild bilateral hydronephrosis Ulceration involves the tissues of the buttocks with inflammatory changes in the fat extending to the gluteal crease. No fluid-filled abscess. No air. surgery and ID consulted continue wound care / barrier cream and offload/turn patient chronic suprapubic catheter, urine is chronically "dirty", has history of purple bag syndrome -- not currently purple Urine cx: Multiple organisms, too many to run in lab repeat urine cx without growth Blood cx: No growth ID consulted completed 2 week course of vanc / ertapenem (10/11-10/24) Fluconazole dc'd (10/20-10/24) Last fever 10/19, +leukocytosis resolved cont PRN home tramadol strict i/o's chronic lymphedema recent admission for cellulitis, pt stopped antibiotics due to side effects, superficial ulcers / erythema of buttocks, and erythema up lateral aspect of left leg 10/14 - agreeable to have lymphedema wraps changed, +pictures taken General surgery consulted - Dr. Perdomo no surgical intervention at this time - will follow Continue local wound care Continue PT A-fib, new onset; paroxysmal went into a-fib 10/12 afternoon, rate controlled Doesn't want anticoagulation d/t previous bleeding complications Cardiology consulted Echo (10/14): EF: 50%, left atrial enlargement, atrial fibrillation, mild MR sinus rhythm now CLIFF on CKD due to toxic ATN, poor perfusion CT abdomen (10/11): Bilateral staghorn calculi kidneys and Mild bilateral hydronephrosis will need f/u with urology outpatient Nephrology consulted improving continue PO Lasix L hand paresthesia >1 month of symptoms intermittently does not extend past wrist mostly affecting thumb and first 2-3 digits suspect carpal tunnel CT head (10/21): no acute intracranial abnormality. outpatient f/u, NCS/EMG Iron deficiency anemia would likely benefit from iron supplementation once infection improves / resolves monitor H&H. transfuse if hgb < 7 chronic COPD chronic diastolic CHF LENO morbid obesity fibromyalgia Confirm home medications, Restarted as appropriate VTE: Lovenox Code: DNR Dispo: SNF - [facility] - pending appeal approval patient was ambulatory at home with 2 canes, and lift chair to help get up. In the last week in hospital, has gotten weaker, requiring mod-max assist to stand, and assistance to take a few steps, patient no longer able to ambulate with canes/walker would benefit from SNF / PT to preserve her last remaining physical activity / function Even with a lift chair, she would not be able to step /walk once it gets her up.
[2022-10-26] MEDS: ENOXAPARIN 40 MG/0.4 ML SQ SCH (08:40)
[2022-10-26] MEDS: SODIUM BICARB 325 MG TAB PO SCH ×2 (08:41→21:01)
[2022-10-26] MEDS: oxyBUTYnin chloride 5 MG TAB PO SCH ×2 (08:42→21:03)
[2022-10-26] MEDS: FUROSEMIDE 40 MG TABLET PO SCH ×3 (08:43→21:01)
[2022-10-26] MEDS: ENSURE MAX PROTEIN 330 ML LIQUID PO SCH ×2 (08:43→21:00)
[2022-10-26] MEDS: LACTOBACILLUS/ACIDOPHILUS TAB PO SCH ×2 (08:45→21:00)
[2022-10-26] MEDS ORDERED: POTASSIUM CL SA 10 MEQ TAB PO ONE (09:00)
--- NOTE | 2022-10-26 19:24 | PN ---
Date of Progress Note: 10/26/2022 Subjective: Acute kidney injury secondary to ATN on chronic kidney disease. Acute kidney injury, im proved. The patient is on Lasix. Patient was found to have hypokalemia today and received replaceme nt. Review of Systems: Denies chest pain, palpitation. Physical Examination: Lungs: Clear to auscultation bilaterally. Heart: S1, S2. Abdomen: Soft, benign. Extremities: Edema of mild degree both legs. Impression And Plan: 1.Acute kidney injury secondary to acute tubular necrosis with superimposed chronic kidney disease, acute kidney injury, improving. Patient will continue Lasix as needed for volume control. 2.Hypertension, controlled. Blood pressure in acceptable ranges. Continue current treatment. 3.Nephrotic range proteinuria, possible focal segmental glomerulosclerosis secondary to chronic obst ruction. Continue low-sodium diet. 4.Urinary tract infection, on antibiotics. 5.Chronic bilateral lymphedema. Lasix as needed. 6.Staghorn kidney stone with hypokalemia. Continue oral bicarbonate. 7.Hyperphosphatemia. Monitor intact PTH. EB/MODL Voice ID: [id number] Report ID: [id number]
[2022-10-26] MEDS: BENZONATATE 100 MG CAP PO PRN (21:02)
[2022-10-27 03:35] LABS: Magnesium 2.1 mg/dL (1.6-2.4); Potassium 3.6 mEq/L (3.5-5.1)
[2022-10-27] MEDS ORDERED: POTASSIUM CL SA 10 MEQ TAB PO ONE (07:00)
--- NOTE | 2022-10-27 07:02 | P.PN ---
Date of Service: 10/27/22 Subjective: doing okay, slept well overnight no new / worsening problems mobility limited by pain / weakness no stool incontinence afebrile ROS: 10 point ROS as noted above, otherwise negative Physical Exam: GEN: Oriented x3, NAD HEENT: Normal conjunctiva, sclera anicteric CV: Regular rate and rhythm, chronic lymphedema, lower legs wrapped Pulm: Nonlabored respirations at rest, diminished at bases bilaterally ABD: Soft, nontender, nondistended, suprapubic cath in place Neuro: Normal speech, normal affect, diminished sensation at tips of left fingers vitals reviewed Problem List Severe sepsis secondary to UTI and possible cellulitis chronic suprapubic catheter chronic bladder calculi, and b/l staghorn calculi chronic lymphedema A-fib, new onset; paroxysmal CLIFF on CKD due to toxic ATN, poor perfusion L hand paresthesia Iron deficiency anemia chronic COPD chronic diastolic CHF LENO morbid obesity fibromyalgia h/o PE (June 2021) Severe sepsis secondary to UTI and cellulitis chronic suprapubic catheter chronic bladder calculi, and b/l staghorn calculi CT abdomen (10/11): Bilateral staghorn calculi kidneys, Mild bilateral hydronephrosis Ulceration involves the tissues of the buttocks with inflammatory changes in the fat extending to the gluteal crease. No fluid-filled abscess. No air. surgery and ID consulted continue wound care / barrier cream and offload/turn patient chronic suprapubic catheter, urine is chronically "dirty", has history of purple bag syndrome -- not currently purple Urine cx: Multiple organisms, too many to run in lab repeat urine cx without growth Blood cx: No growth ID consulted completed 2 week course of vanc / ertapenem (10/11-10/24) Fluconazole dc'd (10/20-10/24) Last fever 10/19, +leukocytosis resolved cont PRN home tramadol strict i/o's chronic lymphedema recent admission for cellulitis, pt stopped antibiotics due to side effects, superficial ulcers / erythema of buttocks, and erythema up lateral aspect of left leg 10/14 - agreeable to have lymphedema wraps changed, +pictures taken General surgery consulted - Dr. Perdomo no surgical intervention at this time - will follow Continue local wound care Continue PT A-fib, new onset; paroxysmal went into a-fib 10/12 afternoon, rate controlled Doesn't want anticoagulation d/t previous bleeding complications Cardiology consulted Echo (10/14): EF: 50%, left atrial enlargement, atrial fibrillation, mild MR sinus rhythm now CLIFF on CKD due to toxic ATN, poor perfusion CT abdomen (10/11): Bilateral staghorn calculi kidneys and Mild bilateral hydronephrosis will need f/u with urology outpatient Nephrology consulted; improving continue PO Lasix L hand paresthesia >1 month of symptoms intermittently does not extend past wrist mostly affecting thumb and first 2-3 digits suspect carpal tunnel CT head (10/21): no acute intracranial abnormality. outpatient f/u, NCS/EMG Iron deficiency anemia would likely benefit from iron supplementation once infection improves / resolves monitor H&H. transfuse if hgb < 7 chronic COPD chronic diastolic CHF LENO morbid obesity fibromyalgia Confirm home medications, Restarted as appropriate VTE: Lovenox Code: DNR Dispo: SNF - [facility] - pending appeal approval patient was ambulatory at home with 2 canes, and lift chair to help get up. In the last week in hospital, has gotten weaker, requiring mod-max assist to stand, and assistance to take a few steps, patient no longer able to ambulate with canes/walker would benefit from SNF / PT to preserve her last remaining physical activity / function Even with a lift chair, she would not be able to step /walk once it gets her up.
[2022-10-27] MEDS: ENOXAPARIN 40 MG/0.4 ML SQ SCH (08:08)
[2022-10-27] MEDS: SODIUM BICARB 325 MG TAB PO SCH ×2 (08:08→22:14)
[2022-10-27] MEDS: oxyBUTYnin chloride 5 MG TAB PO SCH ×2 (08:08→22:14)
[2022-10-27] MEDS: FUROSEMIDE 40 MG TABLET PO SCH ×3 (08:09→22:13)
[2022-10-27] MEDS: ENSURE MAX PROTEIN 330 ML LIQUID PO SCH ×2 (08:12→21:00)
[2022-10-27] MEDS: BENZONATATE 100 MG CAP PO PRN ×2 (08:12→22:13)
[2022-10-27] MEDS: LACTOBACILLUS/ACIDOPHILUS TAB PO SCH ×2 (08:13→22:14)
--- NOTE | 2022-10-27 19:27 | PN ---
Date of Progress Note: 10/27/2022 Chief Complaint: Acute kidney injury secondary to ATN with superimposed chronic kidney disease; acut e kidney injury, improved; renal function is stabilizing. Patient remains on Lasix for volume contro l. She has history of lymphedema. She has anasarca. Patient was found to have hypokalemia and rece ived potassium replacements. Review of Systems: Denies fever or chills. Physical Examination: Lungs: Clear to auscultation bilaterally. Heart: S1, S2. Abdomen: Soft. Extremities: Edema in both legs. Impression And Plan: 1.Acute kidney injury secondary to acute tubular necrosis with superimposed chronic kidney disease s tage 3. Acute kidney injury is improving. The patient will continue Lasix as needed for fluid overl oad. 2.Hypertension is controlled. Blood pressure is in acceptable ranges. 3.Nephrotic range proteinuria, possibly due to focal segmental glomerulosclerosis secondary to chron ic obstruction. Continue low-sodium diet. 4.Urinary tract infection, on antibiotics. 5.Bilateral lymphedema. Lasix as needed. 6.Staghorn kidney stone with hypokalemia. Continue bicarbonate. 7.Hyperphosphatemia. Monitor intact PTH, calcium level. EB/MODL Voice ID: [id number] Report ID: [id number]
[2022-10-28 04:26] LABS: Albumin 2.6 g/dL (3.4-5.0); Phosphorus 4.2 mg/dL (2.5-4.9); Potassium 3.1 mEq/L (3.5-5.1)
[2022-10-28 04:30] LABS: Absolute Lymphocytes (CBC) 0.8 K/uL (0.7-4.9); Hematocrit 31.4 % (36.0-45.0); Lymphocytes % 10.2 % (15.3-44.8); MCV 81.3 fL (80-100); MPV 8.3 fL (7.6-11.3); Platelets 407 thou/uL (152-406); RBC Red Blood Cell Count 3.86 M/uL (3.86-4.86)
[2022-10-28] MEDS ORDERED: POTASSIUM CL SA 10 MEQ TAB PO ONE (04:55)
[2022-10-28] MEDS: SODIUM BICARB 325 MG TAB PO SCH ×2 (08:52→21:00)
[2022-10-28] MEDS: LACTOBACILLUS/ACIDOPHILUS TAB PO SCH ×2 (08:53→20:59)
[2022-10-28] MEDS: oxyBUTYnin chloride 5 MG TAB PO SCH ×2 (08:53→21:02)
[2022-10-28] MEDS: ENOXAPARIN 40 MG/0.4 ML SQ SCH (08:53)
[2022-10-28] MEDS: ENSURE MAX PROTEIN 330 ML LIQUID PO SCH ×2 (08:53→21:00)
[2022-10-28] MEDS: FUROSEMIDE 40 MG TABLET PO SCH ×2 (08:53→16:38)
--- NOTE | 2022-10-28 12:57 | P.PN ---
Date of Service: 10/28/22 Subjective: Feeling a little better today no new / worsening problems BM today afebrile ROS: 10 point ROS as noted above, otherwise negative Physical Exam: GEN: Oriented x3, NAD HEENT: Normal conjunctiva, sclera anicteric CV: Regular rate and rhythm, chronic lymphedema, lower legs wrapped Pulm: Nonlabored respirations at rest, diminished at bases bilaterally ABD: Soft, nontender, nondistended, suprapubic cath in place Neuro: Normal speech, normal affect, diminished sensation at tips of left fingers vitals reviewed Problem List Severe sepsis secondary to UTI and possible cellulitis chronic suprapubic catheter chronic bladder calculi, and b/l staghorn calculi chronic lymphedema A-fib, new onset; paroxysmal CLIFF on CKD due to toxic ATN, poor perfusion L hand paresthesia Iron deficiency anemia chronic COPD chronic diastolic CHF LENO morbid obesity fibromyalgia h/o PE (June 2021) Severe sepsis secondary to UTI and cellulitis chronic suprapubic catheter chronic bladder calculi, and b/l staghorn calculi CT abdomen (10/11): Bilateral staghorn calculi kidneys, Mild bilateral hydronephrosis Ulceration involves the tissues of the buttocks with inflammatory changes in the fat extending to the gluteal crease. No fluid-filled abscess. No air. surgery and ID consulted continue wound care / barrier cream and offload/turn patient chronic suprapubic catheter, urine is chronically "dirty", has history of purple bag syndrome -- not currently purple Urine cx: Multiple organisms, too many to run in lab repeat urine cx without growth Blood cx: No growth ID consulted completed 2 week course of vanc / ertapenem (10/11-10/24) Fluconazole dc'd (10/20-10/24) Last fever 10/19, +leukocytosis resolved cont PRN home tramadol strict i/o's chronic lymphedema recent admission for cellulitis, pt stopped antibiotics due to side effects, superficial ulcers / erythema of buttocks, and erythema up lateral aspect of left leg 10/14 - agreeable to have lymphedema wraps changed, +pictures taken General surgery consulted - Dr. Perdomo no surgical intervention at this time - will follow Continue local wound care Continue PT A-fib, new onset; paroxysmal went into a-fib 10/12 afternoon, rate controlled Doesn't want anticoagulation d/t previous bleeding complications Cardiology consulted Echo (10/14): EF: 50%, left atrial enlargement, atrial fibrillation, mild MR sinus rhythm now CLIFF on CKD due to toxic ATN, poor perfusion CT abdomen (10/11): Bilateral staghorn calculi kidneys and Mild bilateral hydronephrosis will need f/u with urology outpatient Nephrology consulted Creatinine slightly worse suspect dehydration - urine is dark PO lasix TID switched to IV lasix BID (10/28) L hand paresthesia >1 month of symptoms intermittently does not extend past wrist mostly affecting thumb and first 2-3 digits suspect carpal tunnel CT head (10/21): no acute intracranial abnormality. outpatient f/u, NCS/EMG Iron deficiency anemia would likely benefit from iron supplementation once infection improves / resolves monitor H&H. transfuse if hgb < 7 chronic COPD chronic diastolic CHF LENO morbid obesity fibromyalgia Confirm home medications, Restarted as appropriate VTE: Lovenox Code: DNR Dispo: SNF - [facility] - pending appeal approval patient was ambulatory at home with 2 canes, and lift chair to help get up. In the last week in hospital, has gotten weaker, requiring mod-max assist to stand, and assistance to take a few steps, patient no longer able to ambulate with canes/walker would benefit from SNF / PT to preserve her last remaining physical activity / function Even with a lift chair, she would not be able to step /walk once it gets her up.
--- NOTE | 2022-10-28 14:23 | P.PN ---
Chief Complaint: severe sepsis Subjective: Patient seen and examined at bedside. Reports improvement in bilateral lower extremity cellulitis and swelling. No new or worsening complaints. Off of antibiotics since 10/24. Physical Examination Temp Pulse Resp BP Pulse Ox 97.9 F 66 16 120/56 L 92 10/28/22 08:00 10/28/22 08:00 10/28/22 08:00 10/28/22 08:00 10/28/22 08:00 General: Alert, In no apparent distress, Oriented x3. Obese. HEENT: Atraumatic, Normocephalic. Neck: supple. JVD not distended Respiratory: Diminished at bases. unlabored respirations. Cardiovascular: Edema/lymphedema BLE. Regular rate. Gastrointestinal: Normal bowel sounds. Non-tender. No guarding. Integumentary: Dressing to BLE clean dry and intact. Chronic lymphedema. Urinary: Suprapubic catheter draining jennifer colored urine Laboratory Data - Reviewed Microbiology Data - Reviewed Imagings Data: - Reviewed Medication List: - Reviewed Assessment and Plan Problem List Severe Sepsis Urinary Tract Infection Lymphedema vs Cellulitis Suprapubic catheter, chronic Atrial fibrillation Morbid Obesity Acute on chronic kidney disease Anemia, Iron deficiency COPD CHF Severe Sepsis Secondary to Urinary Tract Infection and Bilateral Lower Extremity Cellulitis - Due to extensive allergy history and history of MDR infections, patient was started on Ertapenem and Vancomycin (10/11-) - chronic suprapubic catheter - CT abdomen 10/11: "Bilateral staghorn calculi kidneys. Mild bilateral hydronephrosis" - Urine culture 10/11: 3+ organisms detected ; >100,000 CFU/mL - Blood cultures 10/11: No growth to date - Previously on Ertapenem and Vancomycin (10/11-10/24) - Fluconazole (10/20-10/24) - Leukocytosis resolved. Afebrile. Recommendations Completed 14 days of antibiotic therapy (10/11-10/24) for CAUTI (POA) and BLE Cellulitis - Apply barrier cream to buttocks. Pressure offloading measures - Nutritional supplementation as needed. Case discussed with Sarah Killian
[2022-10-28] MEDS ORDERED: POTASSIUM 25 MEQ EFFERV TAB PO ONE (17:00)
[2022-10-28] MEDS ORDERED: FUROSEMIDE 40 MG/4 ML VIAL IV SCH (17:00)
[2022-10-29] MEDS: BENZONATATE 100 MG CAP PO PRN ×3 (00:26→18:02)
--- NOTE | 2022-10-29 02:20 | PN ---
Date of Progress Note: 10/28/2022 Chief Complaint: Acute kidney injury secondary to ATN with superimposed chronic kidney stage 3, acut e kidney injury, improved. Renal function is stabilizing. Patient remains on Lasix for volume contr ol. She has history of severe leg edema, lymphedema. She was started on Lasix IV 80 mg 3 times per day to control anasarca. The patient was medicated for hypokalemia. Potassium level stable. Review of Systems: Denies fever or chills. Physical Examination: Lungs: Clear to auscultation bilaterally. Heart: S1-S2. Abdomen: Soft. Extremities: Edema in both legs. Impression And Plan: 1.Acute kidney injury secondary to acute tubular necrosis with superimposed chronic kidney disease s tage 3. Renal function is improving. Fluid overload responded to high dose of Lasix. Plan is to ti trate Lasix down and the patient will continue Lasix IV 80 mg twice a day. 2.Hypertension, controlled. Blood pressure in acceptable ranges. 3.Nephrotic range proteinuria, possibly due to focal segmental glomerulosclerosis secondary to chron ic obstruction. 4.Urinary infection, on antibiotic bilaterally. 5.Lymphedema, on Lasix as needed. 6.Staghorn kidney stone with hypokalemia. Continue bicarbonate. 7.Hyperphosphatemia. Monitor intact PTH, calcium, and phosphorus level. Recommend low phosphorus d iet. BILLY/MODL Voice ID: [id number] Report ID: [id number]
[2022-10-29 06:25] LABS: Potassium 3.8 mEq/L (3.5-5.1)
[2022-10-29] MEDS: ENSURE MAX PROTEIN 330 ML LIQUID PO SCH ×2 (08:47→21:00)
[2022-10-29] MEDS: FUROSEMIDE 40 MG TABLET PO SCH ×2 (08:47→17:00)
[2022-10-29] MEDS: SODIUM BICARB 325 MG TAB PO SCH ×2 (08:47→22:16)
[2022-10-29] MEDS: oxyBUTYnin chloride 5 MG TAB PO SCH ×2 (08:47→22:16)
[2022-10-29] MEDS: LACTOBACILLUS/ACIDOPHILUS TAB PO SCH ×2 (08:47→21:00)
[2022-10-29] MEDS: ENOXAPARIN 40 MG/0.4 ML SQ SCH (08:48)
[2022-10-29] MEDS ORDERED: POTASSIUM CL SA 10 MEQ TAB PO ONE (09:00)
--- NOTE | 2022-10-29 12:35 | P.PN ---
Subjective Date of Service: 10/29/22 Chief Complaint: severe sepsis Patient has no new complaint. Mental status has improved to baseline. No issues overnight. Physical Examination - Vital Signs Temperature: 98.0 F Blood Pressure: 103/55 Pulse: 68 Respirations: 16 Pulse Ox (%): 94 Assessment And Plan - Plan Physical Exam: GEN: Oriented x3, NAD CV: Regular rate and rhythm, chronic lymphedema, lower legs wrapped Pulm: Nonlabored respirations at rest, diminished breath sounds bilaterally, no Rales. ABD: Soft, nontender, nondistended, suprapubic cath in place Neuro: Normal speech, normal affect, no focal motor deficit. vitals reviewed Problem List Severe sepsis secondary to UTI and possible cellulitis chronic suprapubic catheter chronic bladder calculi, and b/l staghorn calculi chronic lymphedema A-fib, new onset; paroxysmal CLIFF on CKD due to toxic ATN, poor perfusion L hand paresthesia Iron deficiency anemia chronic COPD chronic diastolic CHF LENO morbid obesity fibromyalgia h/o PE (June 2021) Severe sepsis secondary to UTI and cellulitis chronic suprapubic catheter chronic bladder calculi, and b/l staghorn calculi CT abdomen (10/11): Bilateral staghorn calculi kidneys, Mild bilateral hydronephrosis Ulceration involves the tissues of the buttocks with inflammatory changes in the fat extending to the gluteal crease. No fluid-filled abscess. No air. surgery and ID consulted continue wound care / barrier cream and offload/turn patient chronic suprapubic catheter, urine is chronically "dirty", has history of purple bag syndrome -- not currently purple Urine cx: Multiple organisms, too many to run in lab repeat urine cx without growth Blood cx: No growth ID consulted completed 2 week course of vanc / ertapenem (10/11-10/24) Fluconazole dc'd (10/20-10/24) Last fever 10/19, +leukocytosis resolved cont PRN home tramadol chronic lymphedema recent admission for cellulitis, pt stopped antibiotics due to side effects, superficial ulcers / erythema of buttocks, and erythema up lateral aspect of left leg 10/14 - agreeable to have lymphedema wraps changed, +pictures taken General surgery consulted - Dr. Perdomo no surgical intervention at this time - will follow Continue local wound care and lymphedema wrap change Continue PT A-fib, new onset; paroxysmal went into a-fib 10/12 afternoon, rate controlled Doesn't want anticoagulation d/t previous bleeding complications Seen by cardiology. Echo (10/14): EF: 50%, left atrial enlargement, atrial fibrillation, mild MR Currently in sinus rhythm. CLIFF on CKD due to toxic ATN, poor perfusion CT abdomen (10/11): Bilateral staghorn calculi kidneys and Mild bilateral hydronephrosis will need f/u with urology outpatient Creatinine slightly worse suspect dehydration - urine is dark Lasix scale down to p.o. 80 mg twice daily. Nephrology is following L hand paresthesia >1 month of symptoms intermittently does not extend past wrist mostly affecting thumb and first 2-3 digits suspect carpal tunnel CT head (10/21): no acute intracranial abnormality. outpatient f/u, NCS/EMG Iron deficiency anemia Start IV iron therapy for severe iron deficiency monitor H&H. transfuse if hgb < 7 chronic COPD chronic diastolic CHF LENO morbid obesity fibromyalgia Continue home medications. VTE: Lovenox Code: DNR Dispo: SNF -insurance denied [facility]. Patient has appealed the denial. Discharge pending appeal approval Patient performance status is gradually improving. She is now able to get up, transfer and walk with a bariatric walker but could only walk 5 feet at a time. She is responding to therapy and would benefit from SNF / PT.
--- NOTE | 2022-10-29 17:07 | P.PN ---
Subjective Date of Service: 10/29/22 Chief Complaint: severe sepsis Pt admitted with sepsis , have CKD and protenuria today no overnight events Cr elevated to 2.2, edema improving lasix reduce to bid , will hold for 1-2 days will repeat CXR Physical exam General: Awake, NAD , obese HEENT: Atraumatic, Normocephalic Neck: Supple, no elevated JVD Respiratory: mild basal rales Cardiovascular: No rubs, No murmurs Gastrointestinal: Soft and benign, Non-distended, mariee catheter EXT, Lymphedemaedema, leg wrapped 1. CLIFF 2/2 ATN on CKD. SCr improved to 1.5. then trending up to 2.2 , Lasix rducd to bid , will hold for 1-2 days . Route by mouth fluid intake. 2. Hypertension, controlled, optimal. Continue current treatment. 3. 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 , serology W/U negative going to be a good candidate for adding TORSTEN inhibitor or ARB as outpatient. 4. Urinary tract infection. On abx. 5. Chronic BLE lymphedema. Lasix to 80 mg po bid. 6. Staghorn kidney stone with hypokalemia. Consider potassium citrate as an OP , high Bicarbonate , will dc odium bicarbonate 7. Hyperphosphatemia. Monitor 8. Anemia. Monitor CBC. 9. Chronic urinary incontinence , Cont Mariee Physical Examination - Vital Signs Temperature: 98.0 F Blood Pressure: 103/55 Pulse: 68 Respirations: 16 Pulse Ox (%): 94
[2022-10-29] MEDS: SOD FERRIC GLUC COMPLX/SUCROSE 125 MG in NA CHLORIDE 0.9% 100 ML IV SCH (17:15)
[2022-10-30 03:55] LABS: Potassium 3.3 mEq/L (3.5-5.1)
[2022-10-30] MEDS: ENSURE MAX PROTEIN 330 ML LIQUID PO SCH ×2 (09:00→20:57)
[2022-10-30] MEDS ORDERED: POTASSIUM CL SA 10 MEQ TAB PO ONE ×2 (09:00→16:00)
[2022-10-30] MEDS: BENZONATATE 100 MG CAP PO PRN (09:37)
[2022-10-30] MEDS: oxyBUTYnin chloride 5 MG TAB PO SCH ×2 (09:37→20:54)
[2022-10-30] MEDS: LACTOBACILLUS/ACIDOPHILUS TAB PO SCH ×2 (09:37→20:54)
[2022-10-30] MEDS: ENOXAPARIN 40 MG/0.4 ML SQ SCH (09:38)
[2022-10-30] MEDS: SODIUM BICARB 325 MG TAB PO SCH ×2 (09:38→20:54)
[2022-10-30] MEDS: SOD FERRIC GLUC COMPLX/SUCROSE 125 MG in NA CHLORIDE 0.9% 100 ML IV SCH (09:38)
[2022-10-30] MEDS ORDERED: HYDROCODONE/APAP 5/325 MG TAB PO ONE (14:13)
--- NOTE | 2022-10-30 15:00 | PN ---
Date of Progress Note: 10/30/2022 Subjective: Patient was admitted with acute kidney injury, anasarca. Patient's kidney function boun teresa back again after improvement. Patient is feeling okay. Physical Examination: Vital Signs: Blood pressure 107/58, pulse of 69, afebrile. Chest: Decreased entry bilateral base. Heart: S1, S2. Regular. Abdomen: Morbidly obese. Suprapubic catheter. Could not appreciate any organomegaly. Extremities: Lymphedema with compression dressing. Laboratory Data: Hemoglobin 10.5. Sodium 138, potassium 3.3, bicarb 31, BUN 43, creatinine 2, calci um 7.9. Current Medications: The patient is on include: 1.Iron sulfate. 2.Lovenox. 3.Tylenol. 4.Ensure. 5.Sodium bicarb. 6.Zofran. 7.KCl. 8.Oxybutynin. Assessment And Plan: 1.Acute kidney injury secondary to overdiuresis. We will continue to hold the Lasix for the time be ing. 2.Hypokalemia. We will supplement. 3.Hyponatremia, dilutional. 4.Staghorn stone. Continue sodium bicarb. 5.Cellulitis. Continue current treatment status post antibiotic. 6.Iron deficiency anemia. Continue IV iron. EMMA/MICHELLE Voice ID: [id number] Report ID: [id number]
[2022-10-30 15:12] LABS: Potassium 3.5 mEq/L (3.5-5.1)
--- NOTE | 2022-10-30 15:14 | P.PN ---
Subjective Date of Service: 10/30/22 Chief Complaint: severe sepsis Patient is complaining of hip pain. She is eating well. No issues overnight. Physical Examination - Vital Signs Temperature: 97.7 F Blood Pressure: 97/54 Pulse: 67 Respirations: 16 Pulse Ox (%): 94 Assessment And Plan - Plan Physical Exam: GEN: Oriented x3, NAD CV: Regular rate and rhythm, chronic lymphedema, lower legs wrapped Pulm: Nonlabored respirations at rest, diminished breath sounds bilaterally, no Rales. ABD: Soft, nontender, nondistended, suprapubic cath in place Neuro: Normal speech, normal affect, no focal motor deficit. vitals reviewed Problem List Severe sepsis secondary to UTI and possible cellulitis chronic suprapubic catheter chronic bladder calculi, and b/l staghorn calculi chronic lymphedema A-fib, new onset; paroxysmal CLIFF on CKD due to toxic ATN, poor perfusion L hand paresthesia Iron deficiency anemia chronic COPD chronic diastolic CHF LENO morbid obesity fibromyalgia h/o PE (June 2021) Severe sepsis secondary to UTI and cellulitis chronic suprapubic catheter chronic bladder calculi, and b/l staghorn calculi CT abdomen (10/11): Bilateral staghorn calculi kidneys, Mild bilateral hydronephrosis Ulceration involves the tissues of the buttocks with inflammatory changes in the fat extending to the gluteal crease. No fluid-filled abscess. No air. surgery and ID consulted continue wound care / barrier cream and offload/turn patient chronic suprapubic catheter, urine is chronically "dirty", has history of purple bag syndrome -- not currently purple Urine cx: Multiple organisms, too many to run in lab repeat urine cx without growth Blood cx: No growth ID consulted completed 2 week course of vanc / ertapenem (10/11-10/24) Fluconazole dc'd (10/20-10/24) Last fever 10/19, +leukocytosis resolved cont PRN home tramadol chronic lymphedema recent admission for cellulitis, pt stopped antibiotics due to side effects, superficial ulcers / erythema of buttocks, and erythema up lateral aspect of left leg 10/14 - agreeable to have lymphedema wraps changed, +pictures taken General surgery consulted - Dr. Perdomo no surgical intervention at this time - will follow Continue local wound care and lymphedema wrap change Continue PT A-fib, new onset; paroxysmal went into a-fib 10/12 afternoon, rate controlled Doesn't want anticoagulation d/t previous bleeding complications Seen by cardiology. Echo (10/14): EF: 50%, left atrial enlargement, atrial fibrillation, mild MR Currently in sinus rhythm. CLIFF on CKD due to toxic ATN, poor perfusion CT abdomen (10/11): Bilateral staghorn calculi kidneys and Mild bilateral hydronephrosis will need f/u with urology outpatient Creatinine slightly worse suspect dehydration - urine is dark Lasix scale down to p.o. 80 mg twice daily. Nephrology is following L hand paresthesia mostly affecting thumb and first 2-3 digits suspect carpal tunnel CT head (10/21): no acute intracranial abnormality. outpatient f/u, NCS/EMG Iron deficiency anemia IV iron therapy for severe iron deficiency monitor H&H. transfuse if hgb < 7 Will transition to oral iron supplementation on discharge. chronic COPD chronic diastolic CHF LENO morbid obesity fibromyalgia Continue home medications. VTE: Lovenox Code: DNR Dispo: SNF -insurance denied [facility]. Patient has appealed the denial. Discharge pending appeal approval. Have performance status is improving with therapy.
[2022-10-31] MEDS: ENOXAPARIN 40 MG/0.4 ML SQ SCH (08:20)
[2022-10-31] MEDS: ENSURE MAX PROTEIN 330 ML LIQUID PO SCH ×2 (08:20→20:54)
[2022-10-31] MEDS: LACTOBACILLUS/ACIDOPHILUS TAB PO SCH ×2 (08:20→20:55)
[2022-10-31] MEDS: SOD FERRIC GLUC COMPLX/SUCROSE 125 MG in NA CHLORIDE 0.9% 100 ML IV SCH (08:20)
[2022-10-31] MEDS: BENZONATATE 100 MG CAP PO PRN (08:20)
[2022-10-31] MEDS: SODIUM BICARB 325 MG TAB PO SCH ×2 (08:20→20:55)
[2022-10-31] MEDS: oxyBUTYnin chloride 5 MG TAB PO SCH ×2 (08:20→20:55)
[2022-10-31] MEDS ORDERED: POTASSIUM CL SA 10 MEQ TAB PO ONE ×2 (09:00→15:00)
[2022-10-31 14:42] LABS: Potassium 3.8 mEq/L (3.5-5.1)
--- NOTE | 2022-10-31 18:30 | PN ---
Date of Progress Note: 10/31/2022 Subjective: Patient was admitted with acute kidney injury and anasarca. Patient been diuresed. Res ponded very well in the last few days. Patient's kidney function started to bounce back. Lasix has been held for the last 72 hours. Kidney function today started turning around. Physical Examination: Vital Signs: Blood pressure 112/62, pulse of 72, afebrile. Chest: Decreased entry bilateral base. Heart: S1, S2. Systolic murmur. Abdomen: Morbidly obese. Suprapubic catheter. Extremities: Lymphedema bilateral. Laboratory Data: Hemoglobin 10.5. Sodium 138, potassium 3.8, bicarb 28, BUN 42, creatinine 2, calci um 8.2. Current Medications: The patient on include: 1.Tylenol. 2.Sodium bicarbonate 650 b.i.d. 3.Zofran. 4.KCl. 5.Oxybutynin. Assessment And Plan: 1.Acute kidney injury secondary to poor perfusion, acute tubular necrosis, and prerenal. Start amara vering. I am going to resume low dose of Lasix and we will follow up. 2.Hypertension, controlled optimal. Continue to utilize blood pressure for more diuresis to establi sh better volume control. 3.Staghorn kidney stone. Continue sodium bicarbonate. 4.Hypokalemia. Continue supplement as outpatient. Patient is going to be good candidate for potass ium citrate. 5.Lymphedema. Continue current treatment. 6.Obstructive uropathy. Continue suprapubic catheter. EMMA/MICHELLE Voice ID: [id number] Report ID: [id number]
[2022-11-01 07:35] LABS: Potassium 4.1 mEq/L (3.5-5.1)
--- NOTE | 2022-11-01 08:33 | P.PN ---
Date of Service: 11/01/22 Chief Complaint: severe sepsis Subjective: Off of antibiotics since 10/24. Pending [facility] approval at this time. No new or worsening complaints. Patient resting comfortably in bed. Physical Examination Temp Pulse Resp BP Pulse Ox 96.9 F 64 18 114/71 93 11/01/22 04:00 11/01/22 04:00 11/01/22 04:00 11/01/22 04:00 11/01/22 04:00 General: Alert, In no apparent distress, Oriented x3. Obese. HEENT: Atraumatic, Normocephalic. Neck: supple. JVD not distended Respiratory: Diminished at bases. Nonlabored respirations. Cardiovascular: Edema/lymphedema BLE. Regular rate. Gastrointestinal: Normal bowel sounds. Non-tender. No guarding. Integumentary: Dressing to BLE clean dry and intact. Chronic lymphedema. Urinary: Suprapubic catheter Laboratory Data - Reviewed Microbiology Data - Reviewed Imagings Data: - Reviewed Medication List: - Reviewed Assessment and Plan Problem List Severe Sepsis Urinary Tract Infection Lymphedema vs Cellulitis Suprapubic catheter, chronic Atrial fibrillation Morbid Obesity Acute on chronic kidney disease Anemia, Iron deficiency COPD CHF Severe Sepsis Secondary to Urinary Tract Infection and Bilateral Lower Extremity Cellulitis - Due to extensive allergy history and history of MDR infections, patient was started on Ertapenem and Vancomycin (10/11-) - chronic suprapubic catheter - CT abdomen 10/11: "Bilateral staghorn calculi kidneys. Mild bilateral hydronephrosis" - Urine culture 10/11: 3+ organisms detected ; >100,000 CFU/mL - Blood cultures 10/11: No growth to date - Previously on Ertapenem and Vancomycin (10/11-10/24) ; Fluconazole (10/20-10/24) - Leukocytosis resolved. Afebrile. Recommendations Completed 14 days of antibiotic therapy (10/11-10/24) for BLE Cellulitis and CAUTI (POA) - Apply barrier cream to buttocks. Pressure offloading measures - Nutritional supplementation as needed. [facility] approval pending. Patient has been off antibiotics since 10/24. No evidence of active infection at this time. ID will sign off. Please re-consult if new concerns for infection arise. Case discussed with Sarah Killian
[2022-11-01] MEDS: LACTOBACILLUS/ACIDOPHILUS TAB PO SCH ×2 (09:00→21:37)
[2022-11-01] MEDS: ENSURE MAX PROTEIN 330 ML LIQUID PO SCH ×2 (09:00→21:39)
[2022-11-01] MEDS: FUROSEMIDE 20 MG TABLET PO SCH (09:25)
[2022-11-01] MEDS: oxyBUTYnin chloride 5 MG TAB PO SCH ×2 (09:25→21:38)
[2022-11-01] MEDS: SODIUM BICARB 325 MG TAB PO SCH ×2 (09:25→21:37)
[2022-11-01] MEDS: ENOXAPARIN 40 MG/0.4 ML SQ SCH (09:26)
[2022-11-01] MEDS: SOD FERRIC GLUC COMPLX/SUCROSE 125 MG in NA CHLORIDE 0.9% 100 ML IV SCH (09:26)
--- NOTE | 2022-11-01 13:52 | P.PN ---
Subjective Date of Service: 11/01/22 Chief Complaint: severe sepsis Subjective: No new changes Physical Examination - Vital Signs Temperature: 97.9 F Blood Pressure: 120/58 Pulse: 60 Respirations: 16 Pulse Ox (%): 94 - Physical Exam General: Other (chronically ill-appearing) HEENT: Atraumatic, Normocephalic Neck: Supple Respiratory: Clear to auscultation bilaterally Cardiovascular: Edema Gastrointestinal: Soft and benign, No guarding Musculoskeletal: No clubbing, Swelling Integumentary: Skin breakdown Neurological: Normal speech, Normal tone Urinary: Other (no bladder distention) External genitalia: Deferred Rectal: Deferred Assessment And Plan - Plan 1. CLIFF 2/2 ATN on CKD. CLIFF improved. Continue Lasix 20 mg po daily. Valentine by mouth fluid intake. 2. Hypertension, controlled, optimal. Continue current treatment. 3. 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 Low Na diet. Statin. 4. Urinary tract infection. Received abx. 5. Chronic BLE lymphedema. Lasix as above. Cont multilayer compression. 6. Staghorn kidney stone with hypokalemia. Cont oral bicarb. 7. Hyperphosphatemia. Monitor 8. Anemia. Monitor CBC.
--- NOTE | 2022-11-01 17:53 | P.PN ---
Subjective Date of Service: 11/01/22 Chief Complaint: severe sepsis Patient reports she is feeling better and becoming more mobile. No issues overnight. Physical Examination - Vital Signs Temperature: 97.8 F Blood Pressure: 120/62 Pulse: 70 Respirations: 16 Pulse Ox (%): 96 Assessment And Plan - Plan Physical Exam: GEN: Oriented x3, NAD CV: Regular rate and rhythm, chronic lymphedema, lower legs wrapped Pulm: Nonlabored respirations at rest, diminished breath sounds bilaterally, no Rales. ABD: Soft, nontender, nondistended, suprapubic cath in place Neuro: Normal speech, normal affect, no focal motor deficit. vitals reviewed Problem List Severe sepsis secondary to UTI and possible cellulitis chronic suprapubic catheter chronic bladder calculi, and b/l staghorn calculi chronic lymphedema A-fib, new onset; paroxysmal CLIFF on CKD due to toxic ATN, poor perfusion L hand paresthesia Iron deficiency anemia chronic COPD chronic diastolic CHF LENO morbid obesity fibromyalgia h/o PE (June 2021) Severe sepsis secondary to UTI and cellulitis chronic suprapubic catheter chronic bladder calculi, and b/l staghorn calculi CT abdomen (10/11): Bilateral staghorn calculi kidneys, Mild bilateral hydronephrosis Ulceration involves the tissues of the buttocks with inflammatory changes in the fat extending to the gluteal crease. No fluid-filled abscess. No air. surgery and ID consulted continue wound care / barrier cream and offload/turn patient chronic suprapubic catheter, urine is chronically "dirty", has history of purple bag syndrome -- not currently purple Urine cx: Multiple organisms, too many to run in lab repeat urine cx without growth Blood cx: No growth ID consulted completed 2 week course of vanc / ertapenem (10/11-10/24) Fluconazole dc'd (10/20-10/24) Last fever 10/19, +leukocytosis resolved cont PRN home tramadol chronic lymphedema recent admission for cellulitis, pt stopped antibiotics due to side effects, superficial ulcers / erythema of buttocks, and erythema up lateral aspect of left leg 10/14 - agreeable to have lymphedema wraps changed, +pictures taken General surgery consulted - Dr. Perdomo no surgical intervention at this time - will follow Continue local wound care and lymphedema wrap change Continue PT A-fib, new onset; paroxysmal went into a-fib 10/12 afternoon, rate controlled Doesn't want anticoagulation d/t previous bleeding complications Seen by cardiology. Echo (10/14): EF: 50%, left atrial enlargement, atrial fibrillation, mild MR Currently in sinus rhythm. CLIFF on CKD due to toxic ATN, poor perfusion CT abdomen (10/11): Bilateral staghorn calculi kidneys and Mild bilateral hydronephrosis will need f/u with urology outpatient Lasix scale down to p.o. 80 mg twice daily. Creatinine trended up but later improved after holding Lasix for couple of days Nephrology is following and Lasix resumed at a lower dose-20 mg daily. L hand paresthesia mostly affecting thumb and first 2-3 digits suspect car[address] tunnel CT head (10/21): no acute intracranial abnormality. outpatient f/u, NCS/EMG Iron deficiency anemia IV iron therapy for severe iron deficiency monitor H&H. transfuse if hgb < 7 Will transition to oral iron supplementation on discharge. chronic COPD chronic diastolic CHF LENO morbid obesity fibromyalgia Continue home medications. VTE: Lovenox Code: DNR Dispo: Home with home health.
[2022-11-02 06:31] LABS: Absolute Lymphocytes (CBC) 1.6 K/uL (0.7-4.9); Lymphocytes % 22.6 % (15.3-44.8); MCV 81.1 fL (80-100); MPV 8.5 fL (7.6-11.3); Platelets 350 thou/uL (152-406); RBC Red Blood Cell Count 3.33 M/uL (3.86-4.86)
[2022-11-02 06:45] LABS: Potassium 3.8 mEq/L (3.5-5.1)
[2022-11-02 08:31] VITALS: BP 108/58; TEMP 98.1
[2022-11-02] MEDS: LACTOBACILLUS/ACIDOPHILUS TAB PO SCH (08:46)
[2022-11-02] MEDS: oxyBUTYnin chloride 5 MG TAB PO SCH (08:46)
[2022-11-02] MEDS: FUROSEMIDE 20 MG TABLET PO SCH (08:47)
[2022-11-02] MEDS: SODIUM BICARB 325 MG TAB PO SCH (08:47)
[2022-11-02] MEDS: ENOXAPARIN 40 MG/0.4 ML SQ SCH (08:48)
[2022-11-02] MEDS: SOD FERRIC GLUC COMPLX/SUCROSE 125 MG in NA CHLORIDE 0.9% 100 ML IV SCH (08:48)
[2022-11-02] MEDS: ENSURE MAX PROTEIN 330 ML LIQUID PO SCH (08:49)
[2022-11-02] MEDS ORDERED: POTASSIUM CL SA 10 MEQ TAB PO ONE (09:00)
[2022-11-02 09:02] LABS: Blood Morphology Comment NOT SEEN (NOT SEEN); Platelet Estimate ADEQ
[2022-11-02 09:49] VITALS: O2SAT 97
--- NOTE | 2022-11-02 11:16 | P.DS ---
Admission Date: 10/11/22 Discharge Date: 11/02/22 Disposition: DC HOME/HOME HEALTH CARE Discharge Condition: FAIR Reason for Admission: severe sepsis Brief History of Present Illness: 67yo F, presented to the ED with fever x 2days, tachycardia, not feeling well, abdominal pain, and leg redness. PMH: COPD, diastolic CHF, chronic lymphedema, LENO, fibromyalgia, chronic suprapubic catheter, h/o urinary stones Recently admitted here ~3 weeks prior and treated for cellulitis. Discharged on oral clindamycin but stopped due to diarrhea. She also reported some stool incontinence. Patient somewhat confused during interview, unable to give any specific information / denies any particular symptom that developed and/or worsened in the last several days. Son stated patient didn't want to drink anything and home health nurse replaced suprapubic catheter and didn't have much urine return. In the ED, found to have severe sepsis with fever 102, tachycardic, CLIFF, WBC: 28k, Urine concerning for UTI, possible cellulitis, and borderline blood pressure readings with MAPs: ~60-65. Patient was hospitalized for further management. Hospital Course: Diagnosis Severe sepsis secondary to UTI and possible cellulitis chronic suprapubic catheter chronic bladder calculi, and b/l staghorn calculi chronic lymphedema A-fib, new onset; paroxysmal CLIFF on CKD due to toxic ATN, poor perfusion L hand paresthesia Iron deficiency anemia chronic COPD chronic diastolic CHF LENO morbid obesity fibromyalgia h/o PE (June 2021) Severe sepsis secondary to UTI and cellulitis chronic suprapubic catheter chronic bladder calculi, and b/l staghorn calculi CT abdomen (10/11): Bilateral staghorn calculi kidneys, Mild bilateral hydronephrosis Ulceration involves the tissues of the buttocks with inflammatory changes in the fat extending to the gluteal crease. No fluid-filled abscess. No air. surgery and ID consulted continue wound care / barrier cream and offload/turn patient chronic suprapubic catheter, urine is chronically "dirty", has history of purple bag syndrome -- not currently purple Urine cx: Multiple organisms, too many to run in lab repeat urine cx without growth Blood cx: No growth ID consulted Patient completed 2 week course of vanc / ertapenem (10/11-10/24) She was briefly on fluconazole which was dc'd (10/20-10/24) Last fever 8/12, +leukocytosis resolved chronic lymphedema recent admission for cellulitis, pt stopped antibiotics due to side effects, superficial ulcers / erythema of buttocks, and erythema up lateral aspect of left leg. She initially refused lymphedema wrap but later agreed to it. General surgery Dr. Perdomo consulted recommended: no surgical intervention. Continue local wound care and lymphedema wrap change Continue PT A-fib, new onset; paroxysmal went into a-fib 10/12 afternoon, rate controlled Doesn't want anticoagulation d/t previous bleeding complications Seen by cardiology. Echo (10/14): EF: 50%, left atrial enlargement, atrial fibrillation, mild MR Patient has been in sinus rhythm in sinus rhythm. CLIFF on CKD due to toxic ATN, poor perfusion CT abdomen (10/11): Bilateral staghorn calculi kidneys and Mild bilateral hydronephrosis will need f/u with urology outpatient She was treated with IV Lasix and later transitioned to Lasix p.o. 80 mg twice daily. Creatinine trended up but later improved after holding Lasix for couple of days Nephrology is following and Lasix resumed at a lower dose-20 mg daily. Patient is demanding her home dose Lasix 40 mg twice daily stating she has done this for a long time and knows how to adjust her Lasix dose. Patient is discharged with Lasix 20 mg twice daily. I suspect she will probably stick to 40 mg twice a day at home. Repeat BMP to follow her creatinine is recommended. L hand paresthesia mostly affecting thumb and first 2-3 digits suspect carpal tunnel CT head (10/21): no acute intracranial abnormality. outpatient f/u, NCS/EMG as needed. Iron deficiency anemia Treated with IV iron therapy for severe iron deficiency Hemoglobin was stable. Oral iron polysaccharide prescribed on discharge. chronic COPD chronic diastolic CHF LENO morbid obesity fibromyalgia Continued home medications. Vital Signs/Physical Exam: Temp Pulse Resp BP Pulse Ox 98.1 F 60 16 108/58 L 96 11/02/22 08:00 11/02/22 08:00 11/02/22 08:00 11/02/22 08:00 11/02/22 08:00 General: Alert, In no apparent distress, Oriented x3, Obese HEENT: Mucous membr. moist/pink Neck: JVD not distended Respiratory: Clear to auscultation bilaterally, Normal air movement Cardiovascular: Regular rate/rhythm, Normal S1 S2 Gastrointestinal: Normal bowel sounds, Soft and benign, Non-distended Integumentary: Other (Bilateral venous stasis dermatitis.) Neurological: Normal strength at 5/5 x4 extr Urinary: Suprapubic catheter Laboratory Data at Discharge: WBC 7.00 thou/uL (4.3-10.9) 11/02/22 05:55 Hgb 9.1 g/dL (12.0-15.0) L 11/02/22 05:55 Hct 27.0 % (36.0-45.0) L 11/02/22 05:55 Plt Count 350 thou/uL (152-406) 11/02/22 05:55 PT 14.2 SECONDS (9.5-12.5) H 10/11/22 12:10 INR 1.29 10/11/22 12:10 APTT 38.3 SECONDS (24.3-36.9) H 10/11/22 12:10 Sodium 138 mEq/L (136-145) 11/02/22 05:55 Potassium 3.8 mEq/L (3.5-5.1) 11/02/22 05:55 BUN 35 mg/dL (7-18) H 11/02/22 05:55 Creatinine 2.08 mg/dL (0.55-1.02) H 11/02/22 05:55 Glucose 123 mg/dL (74-106) H 11/02/22 05:55 Uric Acid 6.6 mg/dL (2.6-6.0) H 10/13/22 04:46 Phosphorus 4.2 mg/dL (2.5-4.9) 10/28/22 03:37 Magnesium 2.1 mg/dL (1.6-2.4) 10/27/22 02:16 Total Bilirubin 0.3 mg/dL (0.2-1.0) 10/13/22 04:46 AST 11 U/L (15-37) L 10/13/22 04:46 ALT < 10 U/L (13-56) L 10/13/22 04:46 Alkaline Phosphatase 70 U/L (45-117) 10/13/22 04:46 Home Medications: Benzonatate [Tessalon Perle*] 100 mg PO TID PRN 06/30/21 Lovastatin 20 mg PO BEDTIME 06/30/21 Metoprolol Tartrate 25 mg PO BID 06/30/21 oxyBUTYnin chloride [Oxybutynin Chloride] 5 mg PO BID 06/30/21 Benzonatate [Tessalon Perle*] 100 mg PO TID PRN #30 cap 11/02/22 Docusate [Colace Cap*] 100 mg PO DAILY PRN #30 cap 11/02/22 Ensure Max Protein 330 ml PO BID #60 can 11/02/22 Furosemide [Lasix*] 20 mg PO BID #60 tab 11/02/22 Hydrocodone 7.5/APAP 325 [[place] 7.5/325 mg] 1 tab PO Q4H PRN #20 tab 11/02/22 Iron Polysaccharide Complex [Polysaccharide Iron] 150 mg PO DAILY #30 cap 11/02/22 Potassium Chloride 20 meq PO DAILY #30 tab 11/02/22 New Medications: Docusate [Colace Cap*] 100 mg PO DAILY PRN #30 cap PRN Reason: Constipation Ensure Max Protein 330 ml PO BID #60 can Furosemide [Lasix*] 20 mg PO BID #60 tab Hydrocodone 7.5/APAP 325 [[place] 7.5/325 mg] 1 tab PO Q4H PRN #20 tab PRN Reason: Pain Iron Polysaccharide Complex [Polysaccharide Iron] 150 mg PO DAILY #30 cap Potassium Chloride 20 meq PO DAILY #30 tab Benzonatate [Tessalon Perle*] 100 mg PO TID PRN #30 cap PRN Reason: Cough Physician Discharge Instructions: Patient presented with fever, tachycardia, abdominal pain, and leg redness. She was found to be in severe sepsis secondary to UTI and cellulits. Infectious Disease was consulted. Initial urine cx (10/11) grew multiple organisms - too many to run in lab. Repeat urine cx (10/14 and 10/24) without growth. Blood cx were without growth. Patient was treated with vanc and ertapenem for 2 weeks given her extensive allergy history and history of MDR infections and had improvement of her symptoms. Fluconazole was added after patient developed a fever on abx. Patient was feeling better, remained afebrile for > 48 hours, leukocytosis resolved, and w as deemed stable for discharge to SNF. General surgery was consulted for her chronic lymphedema and felt there was no evidence that warranted surgical intervention during this hospitalization. Recommended local wound care, medical management and to follow up with wound care clinic. During her hospitalization patient went into new onset a-fib (rate controlled) on 10/12. Cardiology was consulted. Echo reported EF: 50%, left atrial enlargement, atrial fibrillation, mild MR. Recommended metoprolol 12.5 mg BID as well as Eliquis 5 mg BID. Patient refused anticoagulation d/t previous bleeding complications. Nephrology was consulted for CLIFF. Patient has improvement with IV fluids, lasix. CT abdomen reported Bilateral staghorn calculi kidneys and Mild bilateral hydronephrosis. Recommend to follow up with urology as outpatient. Iron studies were consistent with significant iron deficiency. Recommend to start iron supplementation. Recommend repeat studies in a few months with PCP. In regards to her L hand paresthesia: CT head was negative for any acute findings. Suspect carpel tunnel. Recommend follow up as oupatient for NCS/EMG. Medications: New: Changes: Follow up: PCP 3-5 days Cardiology 1-2 weeks Nephrology in 1-2 weeks General surgery at the wound care clinic in 1-2 weeks Urology in 1-2 weeks Diet: AHA Activity: Fall precautions Followup: NONE,NONE [Primary Care Provider] - Time spent managing pt's care (in minutes): 40
== END 2022-11-02 12:24 | disposition home health service (06) | DRG 698 ==
LOC: ER 11:33 → ERHOLD 17:03 → 3RD-ICU 19:46 → 2ND 10-14 16:00
PROVIDERS: ADMIT Hospitalist; ATTEND Internal Medicine
DX: T83.510A Infection and inflammatory reaction due to cystostomy catheter, initial encounter (principal); A41.9 Sepsis, unspecified organism; R65.20 Severe sepsis without septic shock; N17.0 Acute kidney failure with tubular necrosis; J18.9 Pneumonia, unspecified organism; I50.32 Chronic diastolic (congestive) heart failure; L03.115 Cellulitis of right lower limb; L03.116 Cellulitis of left lower limb; N17.9 Acute kidney failure, unspecified; N13.6 Pyonephrosis; E87.1 Hypo-osmolality and hyponatremia; Z68.43 Body mass index [BMI] 50.0-59.9, adult; J44.0 Chronic obstructive pulmonary disease with (acute) lower respiratory infection; E66.01 Morbid (severe) obesity due to excess calories; N18.2 Chronic kidney disease, stage 2 (mild); D63.1 Anemia in chronic kidney disease; G47.00 Insomnia, unspecified; E78.5 Hyperlipidemia, unspecified; G62.9 Polyneuropathy, unspecified; F90.9 Attention-deficit hyperactivity disorder, unspecified type; G47.33 Obstructive sleep apnea (adult) (pediatric); I89.0 Lymphedema, not elsewhere classified; E87.6 Hypokalemia; D50.9 Iron deficiency anemia, unspecified; M79.7 Fibromyalgia; E83.39 Other disorders of phosphorus metabolism; I48.91 Unspecified atrial fibrillation; I87.2 Venous insufficiency (chronic) (peripheral); R32 Unspecified urinary incontinence; R20.2 Paresthesia of skin; Z66 Do not resuscitate; Z88.1 Allergy status to other antibiotic agents; Z60.2 Problems related to living alone; Z88.5 Allergy status to narcotic agent; Z88.2 Allergy status to sulfonamides; Z88.8 Allergy status to other drugs, medicaments and biological substances; Z91.09 Other allergy status, other than to drugs and biological substances; Z74.01 Bed confinement status; Z98.84 Bariatric surgery status; Z79.899 Other long term (current) drug therapy; Z79.890 Hormone replacement therapy; Z86.711 Personal history of pulmonary embolism; Z91.048 Other nonmedicinal substance allergy status; Y84.8 Other medical procedures as the cause of abnormal reaction of the patient, or of later complication, without mention of misadventure at the time of the procedure
CPT/HCPCS: 36415; 70450; 71045; 74176; 76377; 80048; 80053; 80069; 80202; 81001; 81015; 82306; 82570; 82607; 82728; 83540; 83605; 83735; 83970; 84132; 84156; 84165; 84443; 84466; 84550; 85025; 85027; 85610; 85730; 86021; 86038; 86160; 86225; 86430; 87040; 87086; 87088; 93005; 93306; 96361; 96365; 96366; 96375; 97110; 97116; 97161; 97530; 99285; J1335; J1450; J1650; J1940; J2270; J2405; J2916; J3475; J3480; J7030; J7040; J7050; J7120

== ENCOUNTER 2022-11-03 18:13 | Emergency (ER) | payer OTHER ==
--- OUTSIDE RECORDS SUMMARY | 2022-11-03 18:37 | XMS REPORT | Continuity of Care Document ---
:1955 Author Organization [facility] [place] t Address [address] [place] [address] Care Team Providers Name Role Phone Castillo Wallace Primary Care Physician Judith Gutierrez Attending Clinician Unavailable Zach Avery MD Attending Clinician LUIS CARLOS PARKER Attending Clinician Unavailable MAICOL GOLDSMITH Attending Clinician Unavailable MAICOL GOLDSMITH Attending Clinician Unavailable Doctor Unassigned, Bourg Attending Clinician Unavailable ZACH AVERY Attending Clinician Unavailable Rivera RT, Crystal C Attending Clinician Unavailable EVI FOSTER Attending Clinician Unavailable Evert CHOU, Zachary Attending Clinician Janae Hammond MD Attending Clinician [phone] Evi Foster MD Attending Clinician JANAE HAMMOND Admitting Clinician Unavailable Janae Hammond MD Admitting Clinician [phone] Payers Payer Name Policy Type Policy Number Effective Date Expiration Date Aster benedict [employer] MEDICARE 53 [id number] Common Sp dre - [facility] Problems Condition Condition Condition Status Onset Resolution Last Treating Co mments Source Name Details Category Date Date Treatment Clinician Date Hyperlipid Hyperlipid Disease Active U nivers emia emia 6- ity of 00:00: [place] 00 Medical Branch Heart Heart Disease Active Univers failure failure 6-21 ity of 00:00: [place] [facility] Hydronephr Hydronephr Disease Active U [...] different from the original. ICD10 Diagnosis Term Outsole Skiver Utility Backache Backache Disease Active 2004-03 Overview: Un k[place]all 2-21 Formattin ity of 00:00: g of this [place] 00 note Medical might be Branch different from the original. ICD10 Diagnosis Term Outsole Skiver Utility Chest pain Chest pain Disease Active 2004-03 Overview : Univers 2-21 Formattin ity of 00:00: g of this [place] 00 note Medical might be Branch different from the original. ICD10 Diagnosis Term Outsole Skiver Utility [id number] Mixed Problem Common hyperlipid Spirit emia - [facility] Urinary Urinary Problem Common incontinen incontinen Sp dre ce ce, - [facility]I unspecifie [facility] [id number] Fibromyalg Problem Co mmon ia Spirit - [facility] [id number] Unsteady Problem Comm on gait [facility] Primary Primary Problem Common osteoarthr osteoarthr Sp dre itis itis - [facility]I involving [facility] [id number] Constipati Problem Com mon on, Spirit [facility]if[facility] [id number] Hx of Problem Common laparoscop Spirit ic gastric - [facility] banding [facility] [id number] Simple Problem Common chronic Spirit bronchitis [facility] [id number] Chronic Problem Commo n suprapubic Spirit catheter - [facility] [id number] Positive Problem Com mon [id number] depression Spirit screening [facility] Lymphedema Lymphedema Problem C ommon [facility] [id number] Urinary Problem Commo n tract Spirit infection, - [facility] site not [facility] [id number] Pressure Problem Comm on injury of Spirit right - [facility] upper St thigh, [facility] stage 1 Medical Center [id number] Encounter Problem Com mon for care Spirit or - [facility]I replacemen [facility] t [facility] suprapubic Medica l tube Center [id number] Recurrent Problem Com mon UTI [facility] [id number] Continuous Problem Co mmon leakage of Spirit urine [facility] [id number] Decreased Problem Commo n mobility [facility] [id number] Wheelchair Problem Co mmon dependence [facility] [id number] Pressure Problem Comm on injury of Spirit right - [facility] buttock, St stage 2 [facility] [id number] Essential Problem Comm on hypertensi Spirit on - [facility] Chronic Chronic Problem Common obstructiv obstructiv Sp dre e e - CHI pulmonary pulmonary [facility] Urostomy Encounter Problem Comm on management for Spirit and care attention - CHI to other [facility] Medical of urinary Center tract Osteoarthr Bilateral Problem Co mmon itis of primary Spirit knee osteoarthr - CHI itis of knee [facility] Chronic Chronic Problem Common venous venous Spirit hypertensi hypertensi - CHI on on St (idiopathi (idiopathi Sanna kes c) with c) with Medical ulcer and ulcer and Cent er inflammati inflammati on of on of bilateral bilateral lower lower extremity extremity Incontinen Incontinen Problem C ommon ce ce [facility] Dependence Dependent Problem Co mmon on on Spirit wheelchair wheelchair [facility] [id number] Acute on Problem Comm on 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 [id number] History of Problem Co mmon pulmonary [facility] embolism [facility] [id number] Nephrostom Problem Co mmon y status [facility] [id number] Bladder Problem Commo n spasms [facility] [id number] Right Problem Common nephrolith [facility] iasis [facility] Hypertensi Hypertensi Problem C ommon ve heart ve heart Spirit failure disease - [facility] with heart [facility] Allergies, Adverse Reactions, Alerts Allergy Allergy Status [...] Medical s Branch Fentanyl Propensi Active Anaphylaxis 2021-0 U nivers ty to 6-20 ity of adverse 00:00: [place] reaction 00 Medical s Branch Hydromor Propensi Active Anaphylaxis 2-0 U nivers phone ty to 6-20 ity of adverse 00:00: [place] reaction 00 Medical s Branch Iodine Propensi Active Anaphylaxis 0 Report Uni vers And ty to 6-20 [...] Branch TRIFLUOP DRUG Active Unknown-Cmnt 2004-03 Un ekndall ERAZINE INGREDI 2-21 ity of HCL 00:00: [...] lincomyc Active Unknown Commo n in in [facility] fentanyl fentanyl Active Unknown Commo n [facility] nitrofur nitrofur Active Unknown Commo n antoin, antoin, Spirit macrocry macrocry [facility] stals / stals / St nitrofur nitrofur [facility] antoin, antoin, Medical monohydr monohydr Center ate ate 2487 Drug Active Unknown Common allergy [facility] 8228 Drug Active Unknown Common allergy [facility] povidone povidone Active Unknown Commo n -iodine -iodine [facility] 5513 Drug Active Unknown Common allergy [facility] vancomyc vancomyc Active Unknown Commo n in in [facility] Social History Social Habit Start Date Stop Date Quantity Comments Source History of Current Smoker Common Spi rit - Tobacco Use [facility] Tobacco use and 2021-10-11 2021-10-11 Smokeless tobacco Un iversity of exposure 00:00:00 00:00:00 non-user [facility] Exposure to 2021-08-18 2021-08-28 Not sure [facility] SARS-CoV-2 00:00:00 01:36:00 [facility] (event) [place] Sex Assigned At [birth year] [facility] 00:00:00 00:00:00 [facility] Center Smoking Status Start Date Stop Date Source Current Smoker 2021-10-22 00:00:00 Common Spiri t [facility] Never smoked tobacco [facility] Medications Ordered Filled Start Stop Current Ordering [...] by mouth ity of tablet 13:28: daily. [place] [address] Medical Branch Mometasone- 0 Yes 2{puff} Inhale 2 Univers Formoterol 7-19 Puffs 2 ity of (DULERA) 13:28: (two) [place] 200-5 times Medical mcg/actuati daily as Bran ch on inhaler needed. foLIC acid 0 Yes 1mg Take 1 mg Un k[place] 1 mg tablet 7-19 by mouth ity of 13:28: daily. [place] [address] Medical Branch furosemide 0 Yes 40mg Take 40 mg U nivers 40 mg 7-19 by mouth 2 ity of tablet 13:28: (two) [place] [address] times Medical daily. Branch gabapentin 0 Yes 300mg Take 300 Un k[place]all 300 mg 7-19 mg by ity of capsule 13:28: mouth 3 [place] [address] (three) Medical times Branch daily as needed. lovastatin 0 Yes 20mg Take 20 mg U nivers 20 mg 7-19 by mouth ity of tablet 13:28: at [place] [address] bedtime. Medical Branch metoprolol 0 Yes 25mg Take 25 mg U nivers tartrate 25 7-19 by mouth 2 it y of mg tablet 13:28: (two) [place] [address] times Medical daily. Branch oxybutynin 0 Yes 5mg Take 5 mg Un [place] chloride 5 7-19 by mouth 2 ity of mg tablet 13:28: (two) [place] [address] times Medical daily. Branch aspirin 81 2021-0 Yes 81mg Take 81 mg U nivers mg chewable 7-19 by mouth ity of tablet 13:28: daily. [place] [address] Medical Branch Mometasone- 2021-0 Yes 2{puff} Inhale 2 Univers Formoterol 7-19 Puffs 2 ity of (DULERA) 13:28: (two) [place] 200-5 55 times Medical mcg/actuati daily as Bran ch on inhaler needed. foLIC acid 2021-0 Yes 1mg Take 1 mg Un [place] 1 mg tablet 7-19 by mouth ity of 13:28: daily. [place] [address] Medical Branch furosemide 2021-0 Yes 40mg Take 40 mg U nivers 40 mg 7-19 by mouth 2 ity of tablet 13:28: (two) [place] [address] times Medical daily. Branch gabapentin 2021-0 Yes 300mg Take 300 Un [place] 300 mg 7-19 mg by ity of capsule 13:28: mouth 3 [place] [address] (three) Medical times Branch daily as needed. lovastatin 2021-0 Yes 20mg Take 20 mg U nivers 20 mg 7-19 by mouth ity of tablet 13:28: at [place] [address] bedtime. Medical Branch metoprolol 2021-0 Yes 25mg Take 25 mg U nivers tartrate 25 7-19 by mouth 2 it y of mg tablet 13:28: (two) [place] [address] times Medical daily. Branch oxybutynin 2021-0 Yes 5mg Take 5 mg Un [place] chloride 5 7-19 by mouth 2 ity of mg tablet 13:28: (two) [place] [address] times Medical daily. Branch aspirin 81 2021-0 Yes 81mg Take 81 mg U nivers mg chewable 7-19 by mouth ity of tablet 13:28: daily. [place] [address] Medical Branch Mometasone- 2021-0 Yes 2{puff} Inhale 2 Univers Formoterol 7-19 Puffs 2 ity of (DULERA) 13:28: (two) [place] 200-5 55 times Medical mcg/actuati daily as Bran ch on inhaler needed. foLIC acid 2021-0 Yes 1mg Take 1 mg Un [place] 1 mg tablet 7-19 by mouth ity of 13:28: daily. [place] [address] Medical Branch furosemide 2021-0 Yes 40mg Take 40 mg U nivers 40 mg 7-19 by mouth 2 ity of tablet 13:28: (two) [place] [address] times Medical daily. Branch gabapentin 2021-0 Yes 300mg Take 300 Un [place] 300 mg 7-19 mg by ity of capsule 13:28: mouth 3 [place] [address] (three) Medical times [place] daily as needed. lovastatin 2-0 Yes 20mg Take 20 mg U nivers 20 mg 7-19 by mouth ity of tablet 13:28: at [place] [address] bedtime. Medical Branch metoprolol 2-0 Yes 25mg Take 25 mg U nivers tartrate 25 7-19 by mouth 2 it y of mg tablet 13:28: (two) [place] 55 times Medical daily. Branch oxybutynin 2021-0 Yes 5mg Take 5 mg Un [place] chloride 5 7-19 by mouth 2 ity of mg tablet 13:28: (two) [place] [address] times Medical daily. Branch aspirin 81 2021-0 Yes 81mg Take 81 mg U nivers mg chewable 7-19 by mouth ity of tablet 13:28: daily. [place] [address] Medical Branch Mometasone- 2021-0 Yes 2{puff} Inhale 2 Univers Formoterol 7-19 Puffs 2 ity of (DULERA) 13:28: (two) [place] 200-5 55 times Medical mcg/actuati daily as Bran ch on inhaler needed. foLIC acid 2021-0 Yes 1mg Take 1 mg Un [place] 1 mg tablet 7-19 by mouth ity of 13:28: daily. [place] [address] Medical Branch furosemide 2021-0 Yes 40mg Take 40 mg U nivers 40 mg 7-19 by mouth 2 ity of tablet 13:28: (two) [place] [address] times Medical daily. Branch gabapentin 2021-0 Yes 300mg Take 300 Un [place] 300 mg 7-19 mg by ity of capsule 13:28: mouth 3 [place] [address] (three) Medical times [place] daily as needed. lovastatin 2021-0 Yes 20mg Take 20 mg U nivers 20 mg 7-19 by mouth ity of tablet 13:28: at [place] [address] bedtime. Medical Branch metoprolol 2-0 Yes 25mg Take 25 mg U nivers tartrate 25 7-19 by mouth 2 it y of mg tablet 13:28: (two) [place] [address] times Medical daily. Branch oxybutynin 2-0 Yes 5mg Take 5 mg Un [place] chloride 5 7-19 by mouth 2 ity of mg tablet 13:28: (two) [place] [address] times Medical daily. Branch aspirin 81 2021-0 Yes 81mg Take 81 mg U nivers mg chewable 7-19 by mouth ity of tablet 13:28: daily. [place] 55 Medical Branch Mometasone- 2021-0 Yes 2{puff} Inhale 2 Univers Formoterol 7-19 Puffs 2 ity of (DULERA) 13:28: (two) [place] 200-5 55 times Medical mcg/actuati daily as Bran ch on inhaler needed. foLIC acid 2021-0 Yes 1mg Take 1 mg Un [place] 1 mg tablet 7-19 by mouth ity of 13:28: daily. [place] [address] Medical Branch furosemide 2021-0 Yes 40mg Take 40 mg U nivers 40 mg 7-19 by mouth 2 ity of tablet 13:28: (two) [place] [address] times Medical daily. Branch gabapentin 2021-0 Yes 300mg Take 300 Un [place] 300 mg 7-19 mg by ity of capsule 13:28: mouth 3 [place] [address] (three) Medical times [place] daily as needed. lovastatin 2021-0 Yes 20mg Take 20 mg U nivers 20 mg 7-19 by mouth ity of tablet 13:28: at [place] [address] bedtime. Medical Branch metoprolol 2021-0 Yes 25mg Take 25 mg U nivers tartrate 25 7-19 by mouth 2 it y of mg tablet 13:28: (two) [place] [address] times Medical daily. Branch oxybutynin 2021-0 Yes 5mg Take 5 mg Un [place] chloride 5 7-19 by mouth 2 ity of mg tablet 13:28: (two) [place] [address] times Medical daily. Branch aspirin 81 2021-0 Yes 81mg Take 81 mg U nivers mg chewable 6-30 by mouth ity of tablet 21:54: daily. [place] 10 Medical Branch Mometasone- 2-0 Yes 2{puff} Inhale 2 Univers Formoterol 6-30 Puffs 2 ity of (DULERA) 21:54: (two) [place] 200-5 10 times Medical mcg/actuati daily as Bran ch on inhaler needed. foLIC acid 2-0 Yes 1mg Take 1 mg Un [place] 1 mg tablet 6-30 by mouth ity of 21:54: daily. [place] [address] Medical Branch furosemide 2021-0 Yes 40mg Take [...] by mouth ity of tablet 21:54: at [place] 10 bedtime. Medical Branch metoprolol 2021-0 Yes [...] by mouth ity of tablet 21:54: daily. [place] [address] Medical Branch Mometasone- 2021-0 Yes 2{puff} Inhale 2 Univers Formoterol 6-30 Puffs 2 ity of (DULERA) 21:54: (two) [place] 200-5 10 times Medical mcg/actuati daily as Bran ch on inhaler needed. foLIC acid 2021-0 Yes 1mg Take 1 mg Un [place] 1 mg tablet 6-30 by mouth ity of 21:54: daily. [place] [address] Medical Branch furosemide 2021-0 Yes 40mg Take [...] by mouth ity of tablet 21:54: at [place] 10 bedtime. Medical Branch metoprolol 2021-0 Yes 25mg Take 25 mg U nivers tartrate 25 6-30 by mouth 2 it y of mg tablet 21:54: (two) [place] 10 times Medical daily. Branch oxybutynin 2021-0 Yes 5mg Take 5 mg Un [place] chloride 5 6-30 by mouth 2 ity of mg tablet 21:54: (two) [place] 10 times Medical daily. Branch aspirin 81 2021-0 Yes 81mg Take 81 mg U nivers mg chewable 6-30 by mouth ity of tablet 21:54: daily. [place] [address] Medical Branch Mometasone- 2021-0 Yes 2{puff} Inhale 2 Univers Formoterol 6-30 Puffs 2 ity of (DULERA) 21:54: (two) [place] 200-5 10 times Medical mcg/actuati daily as Bran ch on inhaler needed. foLIC acid 2021-0 Yes 1mg Take 1 mg Un [place] 1 mg tablet 6-30 by mouth ity of 21:54: daily. [place] [address] Medical Branch furosemide 2021-0 Yes 40mg Take 40 mg U nivers 40 mg 6-30 by mouth 2 ity of tablet 21:54: (two) [place] 10 times Medical daily. Branch gabapentin 2021-0 Yes 300mg Take 300 Un [place] 300 mg 6-30 mg by ity of capsule 21:54: mouth 3 [place] [address] (three) Medical times Branch daily as needed. lovastatin 2021-0 Yes 20mg Take 20 mg U nivers 20 mg 6-30 by mouth ity of tablet 21:54: at [place] [address] bedtime. Medical Branch metoprolol 2021-0 Yes 25mg Take 25 mg U nivers tartrate 25 6-30 by mouth 2 it y of mg tablet 21:54: (two) [place] 10 times Medical daily. Branch oxybutynin 2021-0 Yes 5mg Take 5 mg Un [place] chloride 5 6-30 by mouth 2 ity of mg tablet 21:54: (two) [place] 10 times Medical daily. Branch ipratropium 2021-0 Yes .5mg Inhale 2.5 Univers 0.02 % 6-30 mL 3 ity of nebulizer 00:00: (three) [place] solution 00 times Medical daily. Branch levalbutero 2021-0 Yes .31mg Inhale Uni vers l 0.31 mg/3 6-30 0.31 mg 3 ity of mL 00:00: (three) [place] nebulizer 00 times Medical solution daily. Branch ondansetron 2021-0 Yes 4mg Take 2 mL U nivers 4 mg/2 mL 6-30 by mouth ity of injection 00:00: every 6 [place] (six) Medical hours as Branch needed for [...] mouth ity of injection 00:00: every 6 [place] (six) Medical hours as Branch needed for [...] mouth ity of injection 00:00: every 6 [place] [address] (six) Medical hours as Branch needed for [...] mouth ity of injection 00:00: every 6 [place] (six) Medical hours as Branch needed for [...] mouth ity of injection 00:00: every 6 [place] (six) Medical hours as Branch needed for [...] mouth ity of injection 00:00: every 6 [place] [address] (six) Medical hours as Branch needed for Nausea and Vomiting (N/V). pantoprazol 2-0 Yes 40mg Take 1 Univ ers e 40 mg EC 6-30 tablet by ity of tablet 00:00: mouth 2 [place] (two) Medical times Branch daily. ipratropium 2-0 Yes .5mg Inhale 2.5 Univers 0.02 % 6-30 mL 3 ity of nebulizer 00:00: (three) [place] solution 00 times Medical daily. Branch levalbutero 2021-0 Yes .31mg Inhale Uni vers l 0.31 mg/3 6-30 0.31 mg 3 ity of mL 00:00: (three) [place] nebulizer 00 times Medical solution daily. Branch ondansetron 2021-0 Yes 4mg Take 2 mL U nivers 4 mg/2 mL 6-30 by mouth ity of injection 00:00: every 6 [place] [address] (six) Medical hours as Branch needed for Nausea and Vomiting (N/V). pantoprazol 2021-0 Yes 40mg Take 1 Univ ers e 40 mg EC 6-30 tablet by ity of tablet 00:00: mouth 2 [place] [address] (two) Medical times Branch daily. Enoxaparin Enoxaparin [...] 00 Nystatin Nystatin 2021- No QID Nystatin 278958 148023 07-19- 159742 UNIT/ML UNIT/ML 00:00: 00:00 UNIT/ML 00 :00 Nystatin Nystatin 2021- No QID Nystatin 481480 475378 07-19- 631651 UNIT/ML UNIT/ML 00:00: 00:00 UNIT/ML 00 :00 [...] with food Sp dre 00:00: - [facility] Doxycycline Doxycycline 2017-03 Yes Na Gutierrez 1 capsule Common Hyclate Hyclate 03-30 Spirit 00:00: - [facility] NAPROXEN 2004-03 Yes 1tab po q Univ ers 250 MG ORAL 2-22 6 hrs prn ity of TAB 00:00: pain Medical Branch FAMOTIDINE 2004- Yes 1 tab po Uni vers 20 MG ORAL 2-22 qd ity of TAB 00:00: [place] [facility] FUROSEMIDE 2004- Yes 1 tab po Uni vers 20 MG ORAL 2-22 bid ity of TAB 00:00: [place] [facility] NAPROXEN 2004- Yes 1tab po q Univ ers 250 MG ORAL 2-22 6 hrs prn ity of TAB 00:00: pain Medical Branch FAMOTIDINE 2004- Yes 1 tab po Uni vers 20 MG ORAL 2-22 qd ity of TAB 00:00: [place] [facility] FUROSEMIDE 2004- Yes 1 tab po Uni vers 20 MG ORAL 2-22 bid ity of TAB 00:00: [place] [facility] NAPROXEN 2004- Yes 1tab po q Univ ers 250 MG ORAL 2-22 6 hrs prn ity of TAB 00:00: pain Medical Branch FAMOTIDINE 2004- Yes 1 tab po Uni vers 20 MG ORAL 2-22 qd ity of TAB 00:00: [place] [facility] FUROSEMIDE 2004- Yes 1 tab po Uni vers 20 MG ORAL 2-22 bid ity of TAB 00:00: [place] [facility] NAPROXEN 2004- Yes 1tab po q Univ ers 250 MG ORAL 2-22 6 hrs prn ity of TAB 00:00: pain Medical Branch FAMOTIDINE 2004- Yes 1 tab po Uni vers 20 MG ORAL 2-22 qd ity of TAB 00:00: [place] [facility] FUROSEMIDE 2004- Yes 1 tab po Uni vers 20 MG ORAL 2-22 bid ity of TAB 00:00: [place] [facility] NAPROXEN 2004- Yes 1tab po q Univ ers 250 MG ORAL 2-22 6 hrs prn ity of TAB 00:00: pain Medical Branch FAMOTIDINE 2004- Yes 1 tab po Uni vers 20 MG ORAL 2-22 qd ity of TAB 00:00: [place] 00 Medical Branch FUROSEMIDE 2004- Yes 1 tab po Uni vers 20 MG ORAL 2-22 bid ity of TAB 00:00: [address] Branch Indomethaci Indomethaci No 1{capsu Indomethac n 50 [...] GM Nystatin Nystatin No 1{appli BID Nystatin 713540 841817 cation_ 798542 UNIT/GM UNIT/GM to_affe UNIT/GM cted_ar ea} Sennosides [...] r_milk} Nystatin Nystatin No 1{appli BID Nystatin 735129 467563 cation_ 956658 UNIT/GM UNIT/GM to_affe UNIT/GM cted_ar ea} Fluocinonid [...] MG Nystatin Nystatin No 1{appli BID Nystatin 614453 847698 cation_ 124307 UNIT/GM UNIT/GM to_affe UNIT/GM cted_ar ea} Furosemide [...] MCG/ACT Nystatin Nystatin No 1{appli BID Nystatin 287582 058372 cation_ 068628 UNIT/GM UNIT/GM to_affe UNIT/GM cted_ar ea} Indomethaci [...] tablet Common Tartrate Tartrate with food Sp [facility] Benadryl Benadryl No 1{table TID Benadryl Allergy [...] mg Nystatin Nystatin No 1{appli BID Nystatin 116467 939602 cation_ 230782 UNIT/GM UNIT/GM to_affe UNIT/GM cted_ar ea} Indomethaci [...] MG Nystatin Nystatin No 1{appli BID Nystatin 825852 532953 cation_ 212357 UNIT/GM UNIT/GM to_affe UNIT/GM cted_ar ea} Benadryl [...] MG Nystatin Nystatin No 1{appli BID Nystatin 780846 792884 cation_ 193013 UNIT/GM UNIT/GM to_affe UNIT/GM cted_ar ea} Benadryl [...] MG Nystatin Nystatin No 1{appli BID Nystatin 845375 346456 cation_ 076915 UNIT/GM UNIT/GM to_affe UNIT/GM cted_ar ea} Benadryl [...] MG Nystatin Nystatin No 1{appli BID Nystatin 554032 595911 cation_ 845912 UNIT/GM UNIT/GM to_affe UNIT/GM cted_ar ea} Benadryl [...] MG Nystatin Nystatin No 1{appli BID Nystatin 539267 832598 cation_ 835042 UNIT/GM UNIT/GM to_affe UNIT/GM cted_ar ea} Lovastatin [...] MG Nystatin Nystatin No 1{appli BID Nystatin 984357 364941 cation_ 139542 UNIT/GM UNIT/GM to_affe UNIT/GM cted_ar ea} Lovastatin [...] MG Nystatin Nystatin No 1{appli BID Nystatin 919619 399936 cation_ 051100 UNIT/GM UNIT/GM to_affe UNIT/GM cted_ar ea} Hydrocortis [...] mg Nystatin Nystatin No 1{appli BID Nystatin 126609 771407 cation_ 467236 UNIT/GM UNIT/GM to_affe UNIT/GM cted_ar ea} Furosemide [...] mg Nystatin Nystatin No 1{appli BID Nystatin 239975 437239 cation_ 464982 UNIT/GM UNIT/GM to_affe UNIT/GM cted_ar ea} Furosemide [...] MG Nystatin Nystatin No 1{appli BID Nystatin 083199 563462 cation_ 677191 UNIT/GM UNIT/GM to_affe UNIT/GM cted_ar ea} Furosemide [...] MG Nystatin Nystatin No 1{appli BID Nystatin 019060 756218 cation_ 621409 UNIT/GM UNIT/GM to_affe UNIT/GM cted_ar ea} Furosemide [...] ed} Nystatin Nystatin No 1{appli BID Nystatin 899865 916095 cation_ 772660 UNIT/GM UNIT/GM to_affe UNIT/GM cted_ar ea} Hydrocortis [...] ed} Nystatin Nystatin No 1{appli BID Nystatin 949474 491154 cation_ 621668 UNIT/GM UNIT/GM to_affe UNIT/GM cted_ar ea} Hydrocortis [...] ed} Nystatin Nystatin No 1{appli BID Nystatin 448766 862427 cation_ 954299 UNIT/GM UNIT/GM to_affe UNIT/GM cted_ar ea} Hydrocortis [...] eeded} Nystatin Nystatin No 1{appli BID Nystatin 621611 727035 cation_ 567229 UNIT/GM UNIT/GM to_affe UNIT/GM cted_ar ea} Spiriva [...] ea} Nystatin Nystatin No 1{appli BID Nystatin 663566 653367 cation_ 302807 UNIT/GM UNIT/GM to_affe UNIT/GM cted_ar ea} Potassium [...] ea} Nystatin Nystatin No 1{appli BID Nystatin 315700 102416 cation_ 757390 UNIT/GM UNIT/GM to_affe UNIT/GM cted_ar ea} Benzonatate [...] MCG/ACT Nystatin Nystatin No 1{appli BID Nystatin 901964 820826 cation_ 291011 UNIT/GM UNIT/GM to_affe UNIT/GM cted_ar ea} Furosemide [...] GM Nystatin Nystatin No 1{appli BID Nystatin 719045 376444 cation_ 807062 UNIT/GM UNIT/GM to_affe UNIT/GM cted_ar ea} Sennosides [...] GM Nystatin Nystatin No 1{appli BID Nystatin 919957 845822 cation_ 268824 UNIT/GM UNIT/GM to_affe UNIT/GM cted_ar ea} Sennosides Sennosides No 15{ml_a QD Sennosides 25 MG/15ML 25 MG/15ML t_bedti 25 MG/15ML me_as_n eeded} Vital Signs Vital Name Observation Time Observation Value Comments Source Systolic blood 2021-10-11 18:44:00 106 mm[Hg] [facility]iver [facility] Diastolic blood 2021-10-11 18:44:00 66 mm[Hg] Unive rsity [facility] Heart rate 2021-10-11 18:44:00 62 /min [facility] Body temperature 2021-10-11 18:44:00 [facility].78 [facility] 2021-10-11 18:44:00 16 /min [facility] Body height 2021-10-11 18:44:00 162.6 cm [facility] Body weight 2021-10-11 18:44:00 130.636 kg [facility] [facility] BMI 2021-10-11 18:44:00 49.44 kg/m2 [facility] Procedures Procedure Date / Time Performing Clinician Source Performed AUTHORIZATION FOR 2021-11-26 05:01:00 Doctor Unassigned, No [facility] Name [facility] EXTERNAL PROVIDER 2021-09-19 05:01:00 Doctor Unassigned, No [facility] Name [facility] Encounters Start End Encounter Admission Attending Care Care Encounter Source Date/Time Date/Time Type Type Clinicians Facility Department ID 2022-02-04 Outpatient Gutierrez, Na [facility] [id number] 2 Common 13:09:00 [facility] 2021-09-12 Outpatient Gutierrez, Na STLMLC [facility] [id number] 2 Common 10:05:00 [facility] 2021-07-13 Outpatient Gutierrez, Na STLMLC [facility] [id number] 2 Common 12:02:00 [facility] 2021-07-12 Outpatient Gutierrez, Na [facility]ML[facility] [id number] 2 Common 13:49:00 [facility] 2021-06-11 Outpatient Gutierrez, Na STLMLC STL[facility] [id number] 2 Common 08:32:00 [facility] 2021-06-05 Outpatient Gutierrez, Na STLMLC STLMLC [id number] 2 Common 11:00:01 [facility] 2021-05-31 Outpatient Gutierrez, Na STLMLC STLMLC [id number] 2 Common 09:00:01 [facility] 2021-05-14 Outpatient Gutierrez, Na STLMLC STLMLC [id number] 2 Common 09:20:01 [facility] 2021-04-26 Outpatient Gutierrez, Na STLMLC STL[facility]C [id number] 2 Common 15:13:00 [facility] 2021-04-04 Outpatient Gutierrez, Na STLMLC STL[facility]C [id number] 2 Common 13:37:41 [id number] [facility] 2021-04-04 Outpatient Gutierrez, Na STLMLC STLMLC [id number] 2 Common 13:27:35 [id number] [facility] 2021-04-04 Outpatient Gutierrez, Na STLMLC STLMLC [id number] 2 Common 13:10:57 [id number] [facility] 2021-04-04 Outpatient Gutierrez, Na STLMLC STLMLC [id number] 2 Common 12:33:38 [id number] [facility] 2021-04-04 Outpatient Gutierrez, Na STLMLC STLMLC [id number] 2 Common 12:33:09 [id number] [facility] 2021-04-04 Outpatient Gutierrez, Na STLMLC STLMLC [id number] 2 Common 11:19:52 [id number] [facility] 2021-04-04 Outpatient Gutierrez, Na STLMLC STLMLC [id number] 2 Common 11:19:18 [facility] 2022-02-12 2022-02-[address] [facility] [id number] Univers 00:00:00 00:00:00 [facility] [id number] i ty of [place] [facility] [phone] [facility] [address] 2021-12-25 2021-12-25 Outpatient Steve [facility] [id number] Univers 11:30:00 11:30:00 LUIS CARLOS itdylan o f [facility] 2021-12-18 2021-12-18 [facility], [facility] [id number] Univers 00:00:00 00:00:00 [facility] [id number] i ty of [facility] [id number] [place] [phone] [address] 2021-11-26 2021-11-26 Orders Doctor MARIJA 1.2.840.114 [id number] Univers 00:00:00 00:00:00 Only Unassigned, ELENI [id number] ity of [place] [facility] [id number] [place] [phone] [place] [address] [address] 2021-10-17 2021-10-17 OFFICE [facility] [id number] Co mmon 00:00:00 00:00:00 VISIT Spirit [facility] PT - CHI LEVEL 4 [facility] 2021-10-16 2021-10-16 (TEL) [facility] [id number] Co mmon 00:00:00 00:00:00 [facility] 2021-10-15 2021-10-15 [facility] [id number] Univers 00:00:00 00:00:00 [facility] [id number] i ty of [facility] [phone] [facility] [address] 2021-10-12 2021-10-12 Telephone Sreshta, [facility] 1.2.840.114 [id number] Univers 00:00:00 00:00:00 [facility] HEALTH [id number] i ty of [place] CLINICS [phone] [facility] [address] 2021-10-11 2021-10-11 Office GARRICK Avery 1.2.840.114 [id number] Univers 13:15:00 13:30:00 Visit Zach [facility] 350.1.13.10 i ty of [facility] [phone] [facility] [address] 2021-10-11 2021-10-11 [facility] [id number] Univers 13:15:00 13:15:00 [facility] 2021-10-11 2021-10-11 Outpatient [facility] [id number] Univers 13:15:00 13:15:00 [facility] 2021-09-19 2021-09-19 Orders Doctor MARIJA 1.2.840.114 [id number] Univers 00:00:00 00:00:00 Only Unassigned, ELENI [id number] ity of [place] [facility] [phone] [facility] [address] 2021-09-19 2021-09-19 Telephone Miguel [facility] [id number] Univers 00:00:00 00:00:00 Crystal BUTLER [id number] i ty [id number] PROFESS[place] [phone] La dical [facility] 296 [facility] 2021-09-13 2021-09-13 (TEL) [facility] [id number] Co mmon 00:00:00 00:00:00 [facility] 2021-08-27 2021-09-06 Inpatient U BIBIANAMITCHELL [facility] [id number] Univers 22:49:00 20:02:00 EVI ity [facility] 2021-08-27 2021-09-06 [facility] Zachary Loyd [id number] Univers 22:49:00 20:02:00 Encounter Janae Hammond 350.1 .13.10 ity of [facility] 4.2.7.2.[address] [place] [phone] [facility] [address] 2021-09-03 2021-09-03 Telephone Manish [facility] 1.2.840.114 [id number] [facility] 00:00:00 00:00:00 Janae MULTISPEC [id number] ity of [facility] [id number] [facility] [phone] [facility] AND MEHTA [address] [facility] 2021-08-10 2021-08-10 (TEL) STLMLC STLMLC [id number] Co mmon 00:00:00 00:00:00 [facility] 2021-08-09 2021-08-09 OFFICE STLMLC STLMLC [id number] Co mmon 00:00:00 00:00:00 VISIT [facility] PT - CHI LEVEL [address] [place] [address] 2021-08-09 2021-08-09 (TEL) STLMLC STLMLC [id number] Co mmon 00:00:00 00:00:00 [facility] 2021-07-19 2021-07-19 (TEL) STLMLC STLMLC [id number] Co mmon 00:00:00 00:00:00 Spirit [facility] 2021-07-13 2021-07-13 OFFICE STLMLC STLMLC [id number] Co mmon 00:00:00 00:00:00 VISIT Spirit ESTAB PT - CHI LEVEL 4 [facility] 2021-07-12 2021-07-12 (TEL) STLMLC STLMLC [id number] Co mmon 00:00:00 00:00:00 [facility] 2021-06-28 2021-06-28 (TEL) STLMLC STLMLC [id number] Co mmon 00:00:00 00:00:00 [facility] 2021-06-13 2021-06-13 OFFICE STLMLC STLMLC [id number] Co mmon 00:00:00 00:00:00 VISIT Spirit ESTAB PT - CHI LEVEL 4 [facility] 2021-06-12 2021-06-12 (TEL) STLMLC STLMLC [id number] Co mmon 00:00:00 00:00:00 [facility] 2021-06-04 2021-06-04 (TEL) STLMLC STLMLC [id number] Co mmon 00:00:00 00:00:00 [facility] 2021-05-28 2021-05-28 (TEL) STLMLC STLMLC [id number] Co mmon 00:00:00 00:00:00 [facility] 2021-05-14 2021-05-14 (TEL) STLMLC STLMLC [id number] Co mmon 00:00:00 00:00:00 [facility] 2021-04-26 2021-04-26 OFFICE STLMLC STLMLC [id number] Co mmon 00:00:00 00:00:00 VISIT [facility] 4 [facility] 2021-04-25 2021-04-25 (TEL) STLMLC STLMLC [id number] Co mmon 00:00:00 00:00:00 [facility] 2021-04-12 2021-04-12 (TEL) STLMLC STLMLC [id number] Co mmon 00:00:00 00:00:00 [facility] 2021-03-30 2021-03-30 (TEL) STLMLC STLMLC [id number] Co mmon 00:00:00 00:00:00 [facility] 2021-02-27 2021-02-27 (TEL) STLMLC STLMLC [id number] Co mmon 00:00:00 00:00:00 [facility] 2021-01-01 2021-01-01 (TEL) STLMLC STLMLC [id number] Co mmon 00:00:00 00:00:00 [facility] 2020-12-19 2020-12-19 (TEL) STLMLC STLMLC [id number] Co mmon 00:00:00 00:00:00 [facility] 2020-10-26 2020-10-26 (TEL) STLMLC STLMLC [id number] Co mmon 00:00:00 00:00:00 [facility] 2020-10-26 2020-10-26 (TEL) STLMLC STLMLC [id number] Co mmon 00:00:00 00:00:00 [facility] 2020-10-19 2020-10-19 (TEL) STLMLC STLMLC [id number] Co mmon 00:00:00 00:00:00 [facility] 2020-10-11 2020-10-11 Outpatient STLMLC STLMLC [id number] Common 00:00:00 00:00:00 [facility] 2020-09-27 2020-09-27 Outpatient STLMLC STLMLC [id number] Common 00:00:00 00:00:00 [facility] 2020-09-27 2020-09-27 Outpatient STLMLC STLMLC [id number] Common 00:00:00 00:00:00 [facility] 2020-09-22 2020-09-22 Outpatient STLMLC STLMLC [id number] Common 00:00:00 00:00:00 [facility] 2020-08-15 2020-08-15 Outpatient STLMLC STLMLC [id number] Common 00:00:00 00:00:00 [facility] 2020-07-21 2020-07-21 Outpatient STLMLC STLMLC [id number] Common 00:00:00 00:00:00 [facility] 2020-07-03 2020-07-03 Outpatient STLMLC STLMLC [id number] Common 00:00:00 00:00:00 [facility] 2020-06-30 2020-06-30 Outpatient STLMLC STLMLC [id number] Common 00:00:00 00:00:00 [facility] 2020-06-30 2020-06-30 Outpatient STLMLC STLMLC [id number] Common 00:00:00 00:00:00 [facility] 2020-06-27 2020-06-27 Outpatient STLMLC STLMLC [id number] Common 00:00:00 00:00:00 [facility] 2020-06-07 2020-06-07 Outpatient STLMLC STLMLC [id number] Common 00:00:00 00:00:00 [facility] 2020-05-29 2020-05-29 Outpatient STLMLC STLMLC [id number] Common 00:00:00 00:00:00 [facility] 2020-05-23 2020-05-23 Outpatient STLMLC STLMLC [id number] Common 00:00:00 00:00:00 [facility] 2020-05-11 2020-05-11 Outpatient STLMLC STLMLC [id number] Common 00:00:00 00:00:00 [facility] 2020-05-07 2020-05-07 Outpatient STLMLC STLMLC [id number] Common 00:00:00 00:00:00 [facility] 2020-05-04 2020-05-04 Outpatient STLMLC STLMLC [id number] Common 00:00:00 00:00:00 [facility] 2020-04-19 2020-04-19 Outpatient STLMLC STLMLC [id number] Common 00:00:00 00:00:00 [facility] 2020-04-04 2020-04-04 Outpatient STLMLC STLMLC [id number] Common 00:00:00 00:00:00 [facility] 2020-02-04 2020-02-04 Outpatient STLMLC STLMLC [id number] Common 00:00:00 00:00:00 [facility] 2020-02-01 2020-02-01 Outpatient STLMLC STLMLC [id number] Common 00:00:00 00:00:00 [facility] 2020-01-05 2020-01-05 Outpatient STLMLC STLMLC [id number] Common 00:00:00 00:00:00 [facility] 2019-12-20 2019-12-20 Outpatient STLMLC STLMLC [id number] Common 00:00:00 00:00:00 [facility] 2019-12-19 2019-12-19 Outpatient STLMLC STLMLC [id number] Common 00:00:00 00:00:00 [facility] 2019-12-17 2019-12-17 Outpatient STLMLC STLMLC [id number] Common 00:00:00 00:00:00 [facility] 2019-11-03 2019-11-03 [id number] Common 10:19:00 10:19:00 [facility] [employer] [address] [place] [address] [facility] 2019-10-06 2019-10-06 [facility] [id number] Common 16:47:00 16:47:00 [address] [employer] [address] [place] [address] [facility] 2019-09-30 2019-09-30 [facility] [id number] Common 14:56:00 14:56:00 [address] [employer] [address] [place] [address] [facility] 2019-09-14 2019-09-14 [facility] [id number] Common 13:55:00 13:55:00 [address] [employer] [address] [place] [address] [facility] 2019-08-12 2019-08-12 [facility] [id number] Common 11:39:00 11:39:00 [address] [employer] [address] [place] [address] [facility] 2019-07-09 2019-07-09 [facility] [id number] Common 11:26:00 11:26:00 [address] [employer] [address] [place] [address] [facility] 2019-07-06 2019-07-06 [facility] [id number] Common 14:00:00 14:00:00 [address] [employer] [address] [place] [address] [facility] 2019-06-11 2019-06-11 [facility] [id number] Common 10:29:00 10:29:00 [address] [employer] [address] [place] [address] [facility] 2019-06-08 2019-06-08 [facility] [id number] Common 10:57:00 10:57:00 [address] [employer] [address] [place] [address] [facility] 2019-05-24 2019-05-24 [facility] [id number] Common 14:44:00 14:44:00 [address] [employer] [address] [place] [address] [facility] 2019-04-12 2019-04-12 [facility] [id number] Common 10:58:00 10:58:00 [address] [employer] [address] [place] [address] [facility] 2019-04-08 2019-04-08 [facility] [id number] Common 17:13:00 17:13:00 [address] [employer] [address] [place] [address] [facility] 2019-03-26 2019-03-26 [facility] [id number] Common 07:58:00 07:58:00 [address] [employer] [address] [place] [address] [facility] 2019-02-01 2019-02-01 [facility] [id number] Common 10:49:00 10:49:00 [address] [employer] [address] [place] [address] [facility] 2019-01-21 2019-01-21 [facility] [id number] Common 12:09:00 12:09:00 [address] [employer] [address] [place] [address] [facility] 2018-12-31 2018-12-31 [facility] [id number] Common 13:40:00 13:40:00 [address] [employer] [address] [place] [address] [facility] 2018-12-24 2018-12-24 [facility] [id number] Common 16:51:00 16:51:00 [address] [employer] [address] [place] [address] [facility] 2018-12-22 2018-12-22 [facility] [id number] Common 10:09:00 10:09:00 [address] [employer] [address] [place] [address] [facility] 2018-12-16 2018-12-16 [facility] [id number] Common 13:32:00 13:32:00 [address] [employer] [address] [place] [address] [facility] 2018-12-09 2018-12-09 [facility] [id number] Common 15:07:00 15:07:00 [address] [employer] [address] [place] [address] [facility] 2018-12-08 2018-12-08 [facility] [id number] Common 09:21:00 09:21:00 [address] [employer] [address] [place] [address] [facility] 2018-12-07 2018-12-07 [facility] [id number] Common 15:10:00 15:10:00 [address] [employer] [address] [place] [address] [facility] 2018-10-29 2018-10-29 [facility] [id number] Common 11:00:00 11:00:00 [address] [employer] [address] [place] [address] [facility] 2018-10-20 2018-10-20 [facility] [id number] Common 13:23:00 13:23:00 [address] [employer] [address] [place] [address] [facility] 2018-10-05 2018-10-05 [facility] [id number] Common 16:27:00 16:27:00 [address] [employer] [address] [place] [address] [facility] 2018-09-25 2018-09-25 [facility] [id number] Common 16:15:00 16:15:00 [address] [employer] [address] [place] [address] [facility] 2018-09-23 2018-09-23 [facility] [id number] Common 15:54:00 15:54:00 [address] [employer] [address] [place] [address] [facility] 2018-08-27 2018-08-27 [facility] [id number] Common 16:00:00 16:00:00 [address] [employer] [address] [place] [address] [facility] 2018-08-25 2018-08-25 [facility] [id number] Common 15:20:00 15:20:00 [address] [employer] [address] [place] [address] [facility] Results This patient has no known results.
[2022-11-03] MEDS ORDERED: ONDANSETRON 4 MG/2 ML VIAL ONE (20:02)
[2022-11-03] MEDS ORDERED: MORPHINE 2 MG/ML SYR ONE ×2 (20:02→23:25)
--- NOTE | 2022-11-03 20:12 | RAD REPORT ---
EXAM DESCRIPTION: RAD - Humerus Right - 11/03/2022 8:01 pm CLINICAL HISTORY: PAIN COMPARISON: No comparisons TECHNIQUE: Right humerus, 3 views. FINDINGS: No fracture is identified. There is no dislocation or periosteal reaction noted. No foreig n body or other soft tissue abnormality. Moderate degenerative changes of the AC joint. IMPRESSION: Negative right humerus examination.
[2022-11-03 20:13] LABS: Absolute Lymphocytes (CBC) 1.5 K/uL (0.7-4.9); Hematocrit 29.4 % (36.0-45.0); Lymphocytes % 10.7 % (15.3-44.8); MCV 80.6 fL (80-100); MPV 8.1 fL (7.6-11.3); Platelets 395 thou/uL (152-406); RBC Red Blood Cell Count 3.65 M/uL (3.86-4.86)
--- NOTE | 2022-11-03 20:14 | RAD REPORT ---
EXAM DESCRIPTION: RAD - Elbow Right 3 View - 11/03/2022 8:01 pm CLINICAL HISTORY: PAIN COMPARISON: No comparisons TECHNIQUE: Right elbow, 3 views. FINDINGS: No fracture is identified. No elevated posterior fat pad to suggest an effusion. There is no dislocation or periosteal reaction noted. Mild enthesopathy at the triceps tendon attachm ent. No soft tissue gas. Small rounded ossific density along the dorsal proximal forearm may represen t a small phlebolith. Soft tissue swelling in that region. . IMPRESSION: No acute osseous abnormality. Soft tissue swelling as above.
[2022-11-03 20:28] LABS: Potassium 3.8 mEq/L (3.5-5.1)
--- NOTE | 2022-11-03 21:04 | RAD REPORT ---
EXAM DESCRIPTION: CT - CTFB CLINICAL HISTORY: TRAUMA COMPARISON: Head C Spine Cap Wo Con dated 11/03/2022 TECHNIQUE: Axial noncontrast thin CT images of the face were obtained with sagittal and coronal amara nstruction images. All CT scans are performed using dose optimization technique as appropriate and may include automated exposure control or mA/KV adjustment according to patient size. FINDINGS: Minimally displaced bilateral nasal bone fractures. No other acute facial bone fracture is seen.The mandible is intact. The globes and orbital contents are grossly unremarkable.Left maxillary sinus mucous retention cyst. Maxilla and mandible are edentulous. IMPRESSION: Minimally displaced bilateral nasal bone fractures.
--- NOTE | 2022-11-03 21:27 | EDPHYS ---
Physician Documentation [facility] Name: Jv Bryant Age: 67 yrs Sex: Female : 1955 Arrival Date: 11/03/2022 Time: 18:13 Bed 13 Private MD: ED Physician Pascual Wray HPI: 11/03 19:10 This 67 yrs old Female presents to ER via EMS with complaints of Fall Injury. cp 19:10 Details of fall: The patient fell from an upright position, while walking. Onset: The cp symptoms/episode began/occurred just prior to arrival. Associated injuries: The patient sustained injury to the head, pain, swelling, tenderness, right upper arm and right elbow, painful injury, left hip, painful injury. Historical: - Allergies: 18:21 aloe vera; ld1 18:21 Augmentin; ld1 18:21 Betadine; ld1 18:21 Dilaudid; ld1 18:21 Fentanyl; ld1 18:21 FLU VACCINE; ld1 18:21 Iodine; ld1 18:21 Macrolide Antibiotics; ld1 18:21 meropenem; ld1 18:21 pneumonia vaccine; ld1 18:21 Rocephin; ld1 18:21 Stelazine; ld1 18:21 Sulfa (Sulfonamide Antibiotics); ld1 18:21 Vancomycin; ld1 - PMHx: 18:21 ADD/ADHD; Hyperlipidemia; heart disease- unspecified; frequent UTI'S; Fibromyalgia; ld1 Chronic pain; insomnia; Arthritis; COPD; lymphedema; PERIPHERAL NEUROPATHY; unspecified kidney failure; Hypertension; - Immunization history:: Adult Immunizations up to date, Client reports receiving the 2nd dose of the Covid vaccine. - Social history:: Smoking status: Patient denies any tobacco usage or history of. Patient/guardian denies using alcohol. ROS: 19:15 Constitutional: Negative for body aches, chills, fever. cp 19:15 Cardiovascular: Negative for chest pain. cp 19:15 Neuro: Positive for loss of consciousness, Negative for altered mental status, syncope, weakness. 19:15 Respiratory: Negative for cough, shortness of breath, wheezing. cp 19:15 Abdomen/GI: Negative for abdominal pain, nausea, vomiting, and diarrhea. 19:15 MS/extremity: Positive for injury or acute deformity, pain, of the right arm, Negative for decreased range of motion, deformity. 19:15 All other systems are negative. Exam: 20:23 Constitutional: The patient appears in no acute distress, alert, awake, cp non-diaphoretic, well developed, well nourished, obese, uncomfortable. 20:23 Head/face: Noted is swelling, that is mild, of the nose, tenderness, that is moderate, of the nose. 20:23 Eyes: Pupils: equal, round, and reactive to light and accomodation, Extraocular movements: intact throughout, Conjunctiva: normal, no exudate, no injection, Sclera: no appreciated abnormality, Lids and lashes: appear normal, bilaterally. 20:23 ENT: External ear(s): are unremarkable, Nose: External nose: contusion is noted, bridge of nose and apex of the nose, bleeding, and is minimal, Mouth: Lips: moist, Oral mucosa: moist, Posterior pharynx: Airway: no evidence of obstruction, patent. 20:23 Neck: C-spine: vertebral tenderness, is not appreciated, crepitus, is not appreciated. 20:23 Chest/axilla: Inspection: normal, Palpation: is normal, no crepitus, no tenderness. 20:23 Cardiovascular: Rate: tachycardic. 20:23 Respiratory: the patient does not display signs of respiratory distress, Respirations: normal, no use of accessory muscles, no retractions, labored breathing, is not present, Breath sounds: are clear throughout, no decreased breath sounds, no stridor, no wheezing. 20:23 Abdomen/GI: Inspection: abdomen appears normal, Bowel sounds: active, all quadrants, Palpation: abdomen is soft and non-tender, in all quadrants. 20:23 Back: vertebral tenderness, is not appreciated. 20:23 Musculoskeletal/extremity: Extremities: grossly normal except: noted in the right upper arm: pain, tenderness, There is no evidence of decreased ROM, deformity, noted in the right elbow: pain, tenderness, noted in the left hip: pain, tenderness. 20:23 Neuro: Orientation: to person, place \T\ time. Mentation: is normal. Vital Signs: 18:20 BP 140 / 43; Pulse 105; Resp 18; Temp 98.3(O); Pulse Ox 96% on R/A; Weight 125 kg; ld1 Height 5 ft. 4 in. ; Pain 10/10; 19:30 BP 129 / 50; Pulse 89; Resp 17 S; Pulse Ox 96% on 2 lpm NC; ha1 20:03 BP 110 / 59; Pulse 91; Resp 16 S; Pulse Ox 97% on 2 lpm NC; ha1 21:20 BP 110 / 63; Pulse 90; Resp 16 S; Pulse Ox 96% on 2 lpm NC; ha1 21:45 BP 120 / 54; Pulse 87; Resp 16 S; Pulse Ox 96% on 2 lpm NC; ha1 22:15 BP 109 / 63; Pulse 79; Resp 15 S; Pulse Ox 96% on 2 lpm NC; ha1 23:00 BP 110 / 53; Pulse 82; Resp 17 S; Pulse Ox 96% on R/A; ha1 18:20 Body Mass Index 47.30 (125.00 kg, 162.56 cm) ld1 18:20 Pain Scale: Adult ld1 MDM: 18:43 Patient medically screened. cp 22:02 Differential diagnosis: abrasion, closed head injury, contusion, fracture. Data snw reviewed: vital signs, nurses notes. Management of patient was discussed with the following: Dr. Welch, Trauma surgery, at [facility]. Dr. Welch kindly accepts pt in transfer.. I considered the following discharge prescriptions or medication management in the emergency department Medications were administered in the Emergency Department. See MAR. Counseling: I had a detailed discussion with the patient and/or guardian regarding the historical points, exam findings, and any diagnostic results supporting the discharge/admit diagnosis, the need to transfer to another facility, for higher level of care, [facility] does not immediately have the required specialist. ED course: Took report from Paras Merino, PAc at shift change. Pt awaiting traumagram results. Dr. Randle phoned that pt has small volume subarachnoid. Went to assess pt. A\T\O x 3 with Son at bedside. Pt states she was transferring from the bathroom to the her lift chair but possibly tripped over her suprapubic cath and fell forward onto her face. Son states she hit the bedside table during fall and then fell over it. He states she had LOC x 15-30 seconds and then was brought per EMS to hospital. Pt relays that she has been in our hospital x 21 days for urosepsis and paroxysmal a. fib. Pt had reaction to xarelto and eliquis. Declined blood thinners and states she occasionally takes aspirin but not every day. Ms. Bryant is an obese woman with lymphedema and mobility obstacles. A\T\O x 3 with ecchymosis to bridge of nose, blood to bilateral nares. CT + for nasal fractures. At present her HR is 88-90, resp even and unlabored. Abdomen obese, nontender. Suprapubic cath patent to mariee bag. Lower extremities crusted and edematous. Feet and lower legs with compression bandages. Right arm with tenderness, Pulses present, x-ray reveals no fractures. . 11/03 19:05 Order name: Basic Metabolic Panel; Complete Time: 20:43 cp 11/03 19:05 Order name: CBC with Diff; Complete Time: 20:43 cp 11/03 19:05 Order name: XRAY Humerus RIGHT; Complete Time: 20:18 cp 11/03 20:18 Interpretation: Report reviewed. cp 11/03 19:05 Order name: XRAY Elbow RIGHT 3 view; Complete Time: 20:18 cp 11/03 19:05 Order name: CT Facial Bones W/O Con; Complete Time: 21:08 cp 11/03 19:05 Order name: CT Traumagram (Head C Spine CAP wo con); Complete Time: 21:34 cp 11/03 21:59 Order name: EKG; Complete Time: 21:59 snw 11/03 19:05 Order name: Labs collected and sent; Complete Time: 20:05 cp 11/03 19:05 Order name: IV; Complete Time: 19:45 cp 11/03 20:18 Order name: Sling; Complete Time: 22:12 cp 11/03 21:59 Order name: EKG - Nurse/Tech; Complete Time: 22:12 snw EC:12 Rate is 80 beats/min. Rhythm is regular. NV interval is normal. Clinical impression: snw NSR w/ Non-specific ST/T Changes. Administered Medications: 20:08 Drug: Ondansetron IVP 4 mg Route: IVP; Site: left antecubital; ha1 23:19 Follow up: Response: No adverse reaction ha1 20:20 Drug: morphine IVP or IV 2 mg Route: IVP; Infused Over: 4 mins; Site: left antecubital; ha1 20:50 Follow up: Response: No adverse reaction; Pain is decreased; RASS: Alert and Calm (0) ha1 21:50 Drug: Keppra IV 1000 mg Route: IV; Rate: calculated rate; Site: left antecubital; ha1 23:20 Follow up: Response: No adverse reaction; IV Status: Completed infusion; IV Intake: ha1 100ml 23:18 Drug: morphine IVP or IV 2 mg Route: IVP; Infused Over: 4 mins; Site: left antecubital; ha1 23:26 Follow up: Response: No adverse reaction; Pain is decreased; RASS: Alert and Calm (0) ha1 Disposition: 22:21 Chart complete. snw Disposition Summary: 11/03/22 21:26 Transfer Ordered Reason: Higher level of care ms3 Condition: Stable ms3 Problem: new ms3 Symptoms: are unchanged ms3 Transfer Location: Other Acute Care Facility(11/03/22 22:00) snw Accepting Physician: Aster Pavon(11/03/22 23:27) ha1 Diagnosis - Traumatic subarachnoid hemorrhage ms3 Forms: - Medication Reconciliation Form ms3 - SBAR form ms3 Signatures: Dispatcher [employer] EDLalita Cagle FNP-C POLE LIFT OPERATOR-Csnw Pascual Merino PA PA cp Sims, Marcus, DO DO ms3 Jaja Coleman RN RN 1 Celeste Ewing RN RN ha1 Corrections: (The following items were deleted from the chart) 22:00 21:26 Dr [email or web address] snw 22:00 21: [facility] ms3 snw 22:00 22:00 Aster Pavon snw snw 23: 22:00 Aster Pavon sn ha1
--- NOTE | 2022-11-03 21:27 | ER ---
Nurse's Notes [facility] Name: Jv Bryant Age: 67 yrs Sex: Female : 1955 Arrival Date: 11/03/2022 Time: 18:13 Bed 13 Private MD: Diagnosis: Traumatic subarachnoid hemorrhage Presentation: 11/03 18:20 Chief complaint: EMS states: toned out to patient home for fall. Pt fell from standing ld1 onto face. Denies blood thinners, negative LOC. Reports pain to face, right arm/shoulder. Coronavirus screen: At this time, the client does not indicate any symptoms associated with coronavirus-19. Ebola Screen: No symptoms or risks identified at this time. Initial Sepsis Screen: Does the patient meet any 2 criteria? No. Patient's initial sepsis screen is negative. Does the patient have a suspected source of infection? No. Patient's initial sepsis screen is negative. Risk Assessment: Do you want to hurt yourself or someone else? Patient reports no desire to harm self or others. Onset of symptoms was November 03, 2022. 18:20 Method Of Arrival: EMS: [facility] ld1 18:20 Acuity: SKYLER 3 ld1 Triage Assessment: 18:21 General: Appears in no apparent distress. uncomfortable, Behavior is cooperative, ld1 anxious. Pain: Complains of pain in face and right arm Pain does not radiate. Pain currently is 10 out of 10 on a pain scale. Quality of pain is described as throbbing, Pain began suddenly. EENT: Reports pain in nose. Neuro: Level of Consciousness is awake, alert, obeys commands, Oriented to person, place, time, situation. Cardiovascular: Capillary refill < 3 seconds Patient's skin is warm and dry. Rhythm is irregular. Respiratory: Airway is patent Respiratory effort is even, unlabored. GI: Abdomen is round non-distended. : suprapubic catheter in place. Derm: No signs and/or symptoms reported regarding the dermatologic system. Musculoskeletal: No signs and/or symptoms reported regarding the musculoskeletal system. Historical: - Allergies: 18:21 aloe vera; ld1 18:21 Augmentin; ld1 18:21 Betadine; ld1 18:21 Dilaudid; ld1 18:21 Fentanyl; ld1 18:21 FLU VACCINE; ld1 18:21 Iodine; ld1 18:21 Macrolide Antibiotics; ld1 18:21 meropenem; ld1 18:21 pneumonia vaccine; ld1 18:21 Rocephin; ld1 18:21 Stelazine; ld1 18:21 Sulfa (Sulfonamide Antibiotics); ld1 18:21 Vancomycin; ld1 - PMHx: 18:21 ADD/ADHD; Hyperlipidemia; heart disease- unspecified; frequent UTI'S; Fibromyalgia; ld1 Chronic pain; insomnia; Arthritis; COPD; lymphedema; PERIPHERAL NEUROPATHY; unspecified kidney failure; Hypertension; - Immunization history:: Adult Immunizations up to date, Client reports receiving the 2nd dose of the Covid vaccine. - Social history:: Smoking status: Patient denies any tobacco usage or history of. Patient/guardian denies using alcohol. Screenin:23 [facility] ED Fall Risk Assessment (Adult) History of falling in the last 3 months, ld1 including since admission Yes- single mechanical fall (1 pt) Confusion or Disorientation No (0 pts) Impaired Gait Yes (1 pt) Mobility Assist Device Used Yes (1 pt) Altered Elimination Yes (1 pt) Score/Fall Risk Level 3 or more points = High Risk. Abuse screen: Denies threats or abuse. Denies injuries from another. Nutritional screening: No deficits noted. Tuberculosis screening: No symptoms or risk factors identified. Assessment: 18:23 Reassessment: See triage assessment. ld1 19:05 General: Appears uncomfortable, Behavior is calm. ha1 19:05 Pain: Complains of pain in nose and right arm. Pain: Pain does not radiate. Pain ha1 currently is 8 out of 10 on a pain scale. Quality of pain is described as pressure. Neuro: Larson Agitation-Sedation Scale (RASS): 0 - Alert and Calm Level of Consciousness is awake, alert, obeys commands, Oriented to person, place, time, situation. Cardiovascular: Heart tones S1 S2 present. Respiratory: Airway is patent Respiratory effort is even, unlabored, Respiratory pattern is regular, symmetrical. GI: No signs and/or symptoms were reported involving the gastrointestinal system. Abdomen is round obese. : Pedroza in place to gravity drainage. Musculoskeletal: Range of motion: intact in right arm and bilateral legs. 20:00 Reassessment: Patient and/or family updated on plan of care and expected duration. Pain ha1 level reassessed. Patient is alert, oriented x 3, equal unlabored respirations, skin warm/dry/pink. 21:00 Reassessment: Patient and/or family updated on plan of care and expected duration. Pain ha1 level reassessed. Patient is alert, oriented x 3, equal unlabored respirations, skin warm/dry/pink. 22:00 Reassessment: Patient and/or family updated on plan of care and expected duration. Pain ha1 level reassessed. Patient is alert, oriented x 3, equal unlabored respirations, skin warm/dry/pink. 22:50 Reassessment: Report given to ALO Blunt. ha1 23:00 Reassessment: Patient and/or family updated on plan of care and expected duration. Pain ha1 level reassessed. Patient is alert, oriented x 3, equal unlabored respirations, skin warm/dry/pink. 23:24 Reassessment: Patient and/or family updated on plan of care and expected duration. Pain ha1 level reassessed. Patient is alert, oriented x 3, equal unlabored respirations, skin warm/dry/pink. Vital Signs: 18:20 BP 140 / 43; Pulse 105; Resp 18; Temp 98.3(O); Pulse Ox 96% on R/A; Weight 125 kg; ld1 Height 5 ft. 4 in. ; Pain 10/10; 19:30 BP 129 / 50; Pulse 89; Resp 17 S; Pulse Ox 96% on 2 lpm NC; ha1 20:03 BP 110 / 59; Pulse 91; Resp 16 S; Pulse Ox 97% on 2 lpm NC; ha1 21:20 BP 110 / 63; Pulse 90; Resp 16 S; Pulse Ox 96% on 2 lpm NC; ha1 21:45 BP 120 / 54; Pulse 87; Resp 16 S; Pulse Ox 96% on 2 lpm NC; ha1 22:15 BP 109 / 63; Pulse 79; Resp 15 S; Pulse Ox 96% on 2 lpm NC; ha1 23:00 BP 110 / 53; Pulse 82; Resp 17 S; Pulse Ox 96% on R/A; ha1 18:20 Body Mass Index 47.30 (125.00 kg, 162.56 cm) ld1 18:20 Pain Scale: Adult ld1 ED Course: 18:20 Patient arrived in ED. ld1 18:21 Triage completed. ld1 18:21 Arm band placed on right wrist. ld1 18:23 Patient has correct armband on for positive identification. Placed in gown. Bed in low ld1 position. Call light in reach. Side rails up X2. security monitor on. Pulse ox on. NIBP on. Door closed. Noise minimized. Warm blanket given. 18:23 No provider procedures requiring assistance completed. ld1 18:42 Pascual Merino PA is PHCP. cp 18:43 Pascual Wray MD is Attending Physician. cp 20:03 XRAY Humerus RIGHT In Process Unspecified. EDMS 20:03 XRAY Elbow RIGHT 3 view In Process Unspecified. EDMS 20:05 Inserted saline lock: 20 gauge in left antecubital area, using aseptic technique. Blood rv1 collected. 20:05 Basic Metabolic Panel Sent. rv1 20:05 CBC with Diff Sent. rv1 20:31 CT Facial Bones W/O Con In Process Unspecified. EDMS 20:34 CT Traumagram (Head C Spine CAP wo con) In Process Unspecified. EDMS 21:12 Celeste Ewing, RN is Primary Nurse. ha1 23:23 Patient transferred, IV remains in place. ha1 23:24 Provided Education on: need to transfer . ha1 Administered Medications: 20:08 Drug: Ondansetron IVP 4 mg Route: IVP; Site: left antecubital; ha1 23:19 Follow up: Response: No adverse reaction ha1 20:20 Drug: morphine IVP or IV 2 mg Route: IVP; Infused Over: 4 mins; Site: left antecubital; ha1 20:50 Follow up: Response: No adverse reaction; Pain is decreased; RASS: Alert and Calm (0) ha1 21:50 Drug: Keppra IV 1000 mg Route: IV; Rate: calculated rate; Site: left antecubital; ha1 23:20 Follow up: Response: No adverse reaction; IV Status: Completed infusion; IV Intake: ha1 100ml 23:18 Drug: morphine IVP or IV 2 mg Route: IVP; Infused Over: 4 mins; Site: left antecubital; ha1 23:26 Follow up: Response: No adverse reaction; Pain is decreased; RASS: Alert and Calm (0) [facility] Medication: 23:24 VIS not applicable for this client. ha1 Intake: 23:20 IV: 100ml; Total: 100ml. ha1 Outcome: 21:26 ER care complete, transfer ordered by . ms3 23:22 Transferred by ground EMS Note: transferred to [facility] ha1 23:22 Condition: stable 23:23 Discharge instructions given to patient, family, Instructed on the need for transfer, ha1 Demonstrated understanding of instructions. 23:27 Patient left the ED. ha1 Signatures: Dispatcher [employer] EDMS Pascual Merino PA PA cp Sims, Marcus, DO ms3 Jaja Coleman, RN RN 1 Celeste Ewing RN RN ha1 Eileen Blount rv1 Corrections: (The following items were deleted from the chart) 23:20 23:19 Response: No adverse reaction ha1 ha1 23:31 19:05 General: Appears uncomfortable, Behavior is calm, ha1 ha1
--- NOTE | 2022-11-03 21:29 | RAD REPORT ---
EXAM DESCRIPTION: CT - Head C Spine Cap Wo Con - 11/03/2022 8:32 pm CLINICAL HISTORY: fall COMPARISON: Head Brain Wo Cont dated 10/21/2022; Stone Protocol dated 10/11/2022 TECHNIQUE: Head and cervical spine CT images were obtained without IV contrast. Chest, abdomen, and pelvis CT images were obtained also without IV contrast. Multiplanar reformats were generated and rev iewed. All CT scans are performed using dose optimization technique as appropriate and may include automated exposure control or mA/KV adjustment according to patient size. FINDINGS: CT HEAD: Trace right central sulcus hyperdensity suggestive of small volume subarachnoid hemorrhage. No abnorm al extra-axial fluid collections, mass effect, or edema. No evidence of acute territorial infarct. No midline shift or abnormal fluid collection. The ventricles are normal in caliber and configuration f or age. Basal cisterns are patent. Mastoid aircells and paranasal sinuses are clear. No acute skull f racture. CT CERVICAL SPINE: No acute cervical spine fracture or subluxation. Vertebral body heights are well maintained. Facet ankit ints are normal in alignment. No hyperattenuating canal hematoma. Prevertebral and paraspinous soft t issues are unremarkable. CT CHEST: No pneumothorax, pulmonary contusion or pleural fluid collection. No mediastinal hematoma and the aor ta and pulmonary arteries are unremarkable. No chest will mass or abnormal axillary finding. No displ aced rib fracture or other significant bony finding. CT ABDOMEN/ PELVIS: No evidence of traumatic injury to solid abdominal viscera. Few gallstones near the neck. Multiple bi lateral renal calculi, the largest on the left is along the middle calyx and pelvis, measuring 0.2 cm , and on the right is along the lower calyx measuring 2.4 cm. Sequelae of gastric banding. No bowel i njury or significant finding. No free air, free fluid or abnormal fat stranding. Suprapubic catheter in place. Hyperdense 4 cm calculus seen within the urinary bladder. . No significant bony finding. IMPRESSION: Small volume subarachnoid hemorrhage along the right central sulcus. No other acute traumatic findings. Incidental findings as above, including bilateral sizable renal calculi, urinary bladder large calcul us, and small gallstones. A suprapubic catheter is present. The findings were communicated to Lalita Benedict on 11/03/2022 at 21:25 hours.
[2022-11-03] MEDS ORDERED: LEVETIRACETAM 500 MG/5 ML VIAL IV ONE (21:55)
[2022-11-03] MEDS ORDERED: NA CHLORIDE 0.9% 100 ML ONE (21:56)
[2022-11-04 01:06] VITALS: TEMP 98.3
[2022-11-04 01:11] VITALS: O2SAT 96
[2022-11-04 01:14] VITALS: BP 110/53
--- NOTE | 2022-11-04 12:13 | EKG ---
Test Date: 2022-11-03 Test Time: 22:05:02 Community Coordinator: MEASUREMENT RESULTS: Intervals: Rate: 80 ND: 180 QRSD: 74 QT: 316 QTc: 364 Louin: P: 70 ND: 180 QRS: -11 T: 28 INTERPRETIVE STATEMENTS: Normal sinus rhythm Low voltage QRS Junctional ST depression, probably normal Borderline ECG Compared to ECG 10/12/2022 17:46:00 ST (T wave) deviation now present Atrial fibrillation no longer present Ventricular premature complex(es) no longer present Electronically Signed On 11-04-22 12:11:57 CDT by Terry Ann
== END 2022-11-03 23:27 ==
LOC: ER 18:13
DX: S06.6X9A Traumatic subarachnoid hemorrhage with loss of consciousness of unspecified duration, initial encounter (principal); I12.9 Hypertensive chronic kidney disease with stage 1 through stage 4 chronic kidney disease, or unspecified chronic kidney disease; N18.9 Chronic kidney disease, unspecified; J44.9 Chronic obstructive pulmonary disease, unspecified; Z88.1 Allergy status to other antibiotic agents; Z88.2 Allergy status to sulfonamides; Z88.3 Allergy status to other anti-infective agents; Z88.5 Allergy status to narcotic agent; Z88.7 Allergy status to serum and vaccine; Z88.8 Allergy status to other drugs, medicaments and biological substances; Z91.048 Other nonmedicinal substance allergy status
CPT/HCPCS: 96365; 93005; 85025; 80048; 36415; 70450; 71250; 72125; 70486; 76377; 73080; 73060; 96375; 99285; J1953; J2270 ×2; J2405

== ENCOUNTER 2023-01-19 17:11 | Inpatient (IN) | payer OTHER ==
--- OUTSIDE RECORDS SUMMARY | 2023-01-19 17:26 | XMS REPORT | Continuity of Care Document ---
:1955 Author Organization [facility] t Address [address] [place] [address] Care Team Providers Name Role Phone Castillo Wallace Primary Care Physician Judith Gutierrez Attending Clinician Unavailable Doctor Unassigned, [place] Attending Clinician Unavailable Aneesh Welch Attending Clinician Unavailable Zach Avery MD Attending Clinician [phone] LUIS CARLOS PARKER Attending Clinician Unavailable MAICOL GOLDSMITH Attending Clinician Unavailable MAICOL GOLDSMITH Attending Clinician Unavailable ZACH AVERY Attending Clinician Unavailable Miguel RT, Crystal C Attending Clinician Unavailable EVI FOSTER Attending Clinician Unavailable Zachary Loyd MD Attending Clinician Janae Hammond MD Attending Clinician [phone] Evi Foster MD Attending Clinician Aneesh Welch Admitting Clinician Unavailable JANAE HAMMOND Admitting Clinician Unavailable Janae Hammond MD Admitting Clinician [phone] Payers Payer Name Policy Type Policy Number Effective Date Expiration Date Aster [employer]STELL[employer]O MEDICARE 53 [id number] Common Sp dre - [facility] Problems Condition Condition Condition Status Onset Resolution Last Treating Co mments Source Name Details Category Date Date Treatment Clinician Date Hyperlipid Hyperlipid Disease Active U nivers emia emia 6-21 ity of 00:00: [place] 00 Medical Branch Heart Heart Disease Active Univers failure failure 6-21 ity of 00:00: [place] 00 Medical Branch Hydronephr Hydronephr Disease Active U nivers osis with osis with 6-20 ity of urinary urinary 00:00: [place] obstructio obstructio 00 Me dical n due to n due to Branch renal renal calculus calculus Hydronephr Hydronephr Disease Active U nivers osis [...] different from the original. ICD10 Diagnosis Term Interactive Designer Utility Backache Backache Disease Active 2004-03 Overview: Un [place] 2-21 Formattin ity of 00:00: g of this [place] 00 note Medical might be Branch different from the original. ICD10 Diagnosis Term Interactive Designer Utility Chest pain Chest pain Disease Active 2005-1 Overview : Univers 2-21 Formattin ity of 00:00: g of this [place] 00 note Medical might be Branch different from the original. ICD10 Diagnosis Term Interactive Designer Utility [id number] Mixed Problem Common hyperlipid Spirit emia [facility] Urinary Urinary Problem Common incontinen incontinen Sp dre ce ce, - [facility] unspecifie [facility] [id number] Fibromyalg Problem Co mmon ia Spirit [facility] [id number] Unsteady Problem Comm on gait [facility] Primary Primary Problem Common osteoarthr osteoarthr Sp dre itis itis - [facility] involving [facility] [id number] Constipati Problem Com mon on, Spirit unspecifie - [facility] d constipati [facility] [id number] Hx of Problem Common laparoscop Spirit ic gastric - [facility] banding [facility] [id number] Simple Problem Common chronic [facility] bronchitis [facility] [id number] Chronic Problem Commo n suprapubic [facility] catheter [facility] [id number] Positive Problem Com mon [id number] depression Spirit screening [facility] Lymphedema Lymphedema Problem C ommon [facility] [id number] Urinary Problem Commo n tract Spirit infection, - [facility] site not [facility] [id number] Pressure Problem Comm on injury of Spirit right - [facility] upper St thigh, [facility] stage 1 [facility] Center [id number] Encounter Problem Com mon for care Spirit or - [facility]I replacemen [facility] suprapubic Medica l tube Center [id number] Recurrent Problem Com mon UTI [facility] [id number] Continuous Problem Co mmon leakage of Spirit urine [facility] [id number] Decreased Problem Commo n mobility [facility] [id number] Wheelchair Problem Co mmon dependence [facility] [id number] Pressure Problem Comm on injury of Spirit right - [facility] buttock, St stage [address] [facility] [id number] Essential Problem Comm on hypertensi Spirit on [facility] Chronic Chronic Problem Common obstructiv obstructiv Sp dre e e - [facility] pulmonary pulmonary [facility] Urostomy Encounter Problem Comm on management for Spirit and care attention - [facility]I to other [facility] of urinary Center tract Osteoarthr Bilateral Problem Co mmon itis of primary [facility] knee osteoarthr - [facility] itis of knee [facility] Chronic Chronic Problem Common venous venous Spirit hypertensi hypertensi - CHI on on St (idiopathi (idiopathi Sanna kes c) with c) with Medical ulcer and ulcer and Cent er inflammati inflammati on of on of bilateral bilateral lower lower extremity extremity Incontinen Incontinen Problem C ommon ce ce Spirit - [facility] Dependence Dependent Problem Co mmon on on Spirit wheelchair wheelchair - [facility] [id number] Acute on Problem Comm on chronic Spirit congestive - [facility] heart [facility] with left Medical ventricula Center r diastolic dysfunctio n [id number] History of Problem Co mmon pulmonary Spirit embolism [facility] [id number] Nephrostom Problem Co mmon y status Spirit [facility] [id number] Bladder Problem Commo n spasms Spirit [facility] [id number] Right Problem Common nephrolith Spirit iasis - [facility] Hypertensi Hypertensi Problem C ommon ve heart ve heart Spirit failure disease - [facility] with heart failure [facility] Allergies, Adverse Reactions, Alerts Allergy Allergy Status Severity Reaction(s) Onset Inactive Treating Comm ents Source Name Type Date Date Clinician Macrolid DA Active U UNKNOWN [facility] e 11-04 Clear Antibiot 00:00: [place] ics [facility] Sulfa DA Active U UNKNOWN [facility] (Sulfona 11-04 Clear mide 00:00: [place] Antibiot 00 [facility] trifluop DA Active U UNKNOWN 2022- [facility] erazine 11-04 Clear 00:00: [facility] ceftriax DA Active U UNKNOWN [facility] one 11-04 Clear 00:00: [facility] vancomyc DA Active U UNKNOWN [facility] in 11-04 Clear 00:00: [facility] meropene DA Active U UNKNOWN [facility] m 11-04 Clear 00:00: [facility] pepper FA Active U UNKNOWN [facility] (genus 11-04 Clear Capsicum 00:00: [place] ) 00 [facility] aloe FA Active U UNKNOW [facility] vera 828 Clear 00:00: [place] 00 [facility] hydromor DA Active U UNKNOWN [facility] phone 8 Clear 00:00: [place] 00 [facility] AMOXICIL DRUG Active High ITCHING Univers ALBA-POT 6-20 ity of CLAVULAN 00:00: [place] ATE 00 Medical Branch FENTANYL DRUG Active High Anaphylaxis Uni vers INGREDI 6-20 ity of 00:00: [place] 00 Medical Branch HYDROMOR DRUG Active High Anaphylaxis Uni vers PHONE INGREDI 6-20 ity of 00:00: [place] 00 Medical Branch IODINE Drug Active High Anaphylaxis Unive rs AND Class 6-20 ity of [...] Medical s Branch Amoxicil Propensi Active Itching 0 Unive rs alba-Pot ty to 6-20 ity [...] 00:00: [place] reaction 00 Medical s Branch amoxicil DA Active SV STOMACH 2014-0 [facility] alba UPSET 4-15 Clear trihydra 00:00: [place] te 00 [facility] iodine DA Active SV RASH AND 2014-0 [facility] SWELLING 4-15 Clear 00:00: [place] 00 [facility] potassiu DA Active SV STOMACH 2014-0 [facility] m UPSET 4-15 Clear clavulan 00:00: [place] ate 00 [facility] celery FA Active SV IRRITATES 2014-0 [facility] STOMACH 4-15 Clear 00:00: [place] 00 [facility] PEPPER DA Active [place] STOMACH 2008-0 [facility] UPSET 9-11 Clear 00:00: [place] 00 [facility] NALBUPHI DRUG Active Unknown-Cmnt 2004-03 Un [place] HCL INGREDI 2-21 ity of 00:00: [place] [facility] TRIFLUOP DRUG Active Unknown-Cmnt 2004-03 Un [place] ERAZINE INGREDI 2-21 ity of HCL 00:00: [place] [facility] TOLUENE DRUG Active Unknown-Cmnt 2004-03 [...] lincomyc Active Unknown Commo n in in [facility] fentanyl fentanyl Active Unknown Commo n [facility] nitrofur nitrofur Active Unknown Commo n antoin, antoin, Spirit macrocry macrocry - [facility] stals / stals / St nitrofur nitrofur [facility] antoin, antoin, Medical monohydr monohydr Center ate ate 2487 Drug Active Unknown Common allergy [facility] 8228 Drug Active Unknown Common allergy [facility] povidone povidone Active Unknown Commo n -iodine -iodine [facility] 5513 Drug Active Unknown Common allergy [facility] vancomyc vancomyc Active Unknown Commo n in in [facility] Social History Social Habit Start Date Stop Date Quantity Comments Source History of Tobacco Current Smoker Co mmon [facility] - Use [facility] Sexual orientation [facility] History of Social 2021-10-11 2021-10-11 Univers ity of function 00:00:00 00:00:00 [facility] Tobacco use and 2021-10-11 2021-10-11 Smokeless Universit y of exposure 00:00:00 00:00:[address] tobacco non-user [facility] Exposure to 2021-08-18 2021-08-28 Not sure University of SARS-CoV-2 (event) 00:00:00 01:36:00 [facility] Sex Assigned At [birth year] [facility] 00:00:00 00:00:00 Medical Center Smoking Status Start Date Stop Date Source Current Smoker 2021-10-22 00:00:00 Common Tayler santiago - REECE [facility] Never smoked tobacco [facility] Medications Ordered Filled Start Stop Current Ordering Indication Dosage Frequency Signature Comments Components Source Medication Medication Date Date Medication? Clinician (SIG) Name Name HYDROcodone HYDROcodone 2021- No QID HYDROcodon -Acetaminop -Acetaminop 8-10 10-24 e-Acetamin hen 5-325 hen 5-325 00:00: 00:00 ophen MG MG 00 :00 5-325 MG HYDROcodone HYDROcodone 2021- No QID HYDROcodon -Acetaminop -Acetaminop 8-10 - e-Acetamin hen 5-325 hen 5-325 00:00: 00:00 ophen MG MG 00 :00 5-325 MG aspirin 81 Yes 81mg Take 81 mg U nivers mg chewable 7-19 by mouth ity of tablet 13:28: daily. [place] [address] Medical Branch Mometasone- Yes 2{puff} Inhale 2 Univers Formoterol 7-19 Puffs 2 ity of (DULERA) 13:28: (two) [place] 200-5 55 times Medical mcg/actuati daily as Bran ch on inhaler needed. foLIC acid Yes 1mg Take 1 mg Un [place] 1 mg tablet 7-19 by mouth ity of 13:28: daily. [address] Branch furosemide 0 Yes 40mg Take 40 mg U nivers 40 mg 7-19 by mouth 2 ity of tablet 13:28: (two) [place] [address] times Medical daily. Branch gabapentin 0 Yes 300mg Take 300 Un [place] 300 mg 7-19 mg by ity of capsule 13:28: mouth 3 [place] [address] (three) Medical times [place] daily as needed. lovastatin 0 Yes 20mg Take 20 mg U nivers 20 mg 7-19 by mouth ity of tablet 13:28: at [place] [address] bedtime. Medical Branch metoprolol 0 Yes 25mg Take 25 mg U nivers tartrate 25 7-19 by mouth 2 it y of mg tablet 13:28: (two) [place] [address] times Medical daily. Branch oxybutynin 0 Yes 5mg Take 5 mg Un [place] chloride 5 7-19 by mouth 2 ity of mg tablet 13:28: (two) [place] [address] times Medical daily. Branch aspirin 81 2021-0 Yes 81mg Take 81 mg U nivers mg chewable 7-19 by mouth ity of tablet 13:28: daily. [place] [address] Medical Branch Mometasone- 2021-0 Yes 2{puff} Inhale 2 Univers Formoterol 7-19 Puffs 2 ity of (DULERA) 13:28: (two) [place] 200-5 55 times Medical mcg/actuati daily as Bran ch on inhaler needed. foLIC acid 2021-0 Yes 1mg Take 1 mg Un [place] 1 mg tablet 7-19 by mouth ity of 13:28: daily. [place] [address] Medical Branch furosemide 2021-0 Yes 40mg Take 40 mg U nivers 40 mg 7-19 by mouth 2 ity of tablet 13:28: (two) [place] [address] times Medical daily. Branch gabapentin 0 Yes 300mg Take 300 Un [place] 300 mg 7-19 mg by ity of capsule 13:28: mouth 3 [place] [address] (three) Medical times [place] daily as needed. lovastatin 2021-0 Yes 20mg Take 20 mg U nivers 20 mg 7-19 by mouth ity of tablet 13:28: at [place] [address] bedtime. Medical Branch metoprolol 2021-0 Yes 25mg Take 25 mg U nivers tartrate 25 7-19 by mouth 2 it y of mg tablet 13:28: (two) [place] [address] times Medical daily. Branch oxybutynin 2021-0 Yes 5mg Take 5 mg Un [place] chloride 5 7-19 by mouth 2 ity of mg tablet 13:28: (two) [place] [address] times Medical daily. Branch aspirin 81 2021-0 Yes 81mg Take 81 mg U nivers mg chewable 7-19 by mouth ity of tablet 13:28: daily. [place] [address] Medical Branch Mometasone- 2021-0 Yes 2{puff} Inhale 2 Univers Formoterol 7-19 Puffs 2 ity of (DULERA) 13:28: (two) [place] 200-5 55 times Medical mcg/actuati daily as Bran ch on inhaler needed. foLIC acid 2021-0 Yes 1mg Take 1 mg Un [place] 1 mg tablet 7-19 by mouth ity of 13:28: daily. [place] [address] Medical Branch furosemide 2021-0 Yes 40mg Take 40 mg U nivers 40 mg 7-19 by mouth 2 ity of tablet 13:28: (two) [place] 55 times Medical daily. Branch gabapentin 2021-0 Yes 300mg Take 300 Un [place] 300 mg 7-19 mg by ity of capsule 13:28: mouth 3 [place] [address] (three) Medical times [place] daily as needed. lovastatin 2021-0 Yes 20mg Take 20 mg U nivers 20 mg 7-19 by mouth ity of tablet 13:28: at [place] [address] bedtime. Medical Branch metoprolol 2021-0 Yes 25mg Take 25 mg U nivers tartrate 25 7-19 by mouth 2 it y of mg tablet 13:28: (two) [place] [address] times Medical daily. Branch oxybutynin 2021-0 Yes 5mg Take 5 mg Un [place] chloride 5 7-19 by mouth 2 ity of mg tablet 13:28: (two) [place] [address] times Medical daily. Branch aspirin 81 2021-0 Yes 81mg Take 81 mg U nivers mg chewable 7-19 by mouth ity of tablet 13:28: daily. [place] [address] Medical Branch Mometasone- 2021-0 Yes 2{puff} Inhale 2 Univers Formoterol 7-19 Puffs 2 ity of (DULERA) 13:28: (two) [place] 200-5 55 times Medical mcg/actuati daily as Bran ch on inhaler needed. foLIC acid 2021-0 Yes 1mg Take 1 mg Un [place] 1 mg tablet 7-19 by mouth ity of 13:28: daily. [place] [address] Medical Branch furosemide 2021-0 Yes 40mg Take 40 mg U nivers 40 mg 7-19 by mouth 2 ity of tablet 13:28: (two) [place] 55 times Medical daily. Branch gabapentin 2021-0 Yes 300mg Take 300 Un [place] 300 mg 7-19 mg by ity of capsule 13:28: mouth 3 [place] [address] (three) Medical [facility] daily as needed. lovastatin 2021-0 Yes 20mg Take 20 mg U nivers 20 mg 7-19 by mouth ity of tablet 13:28: at [place] [address] bedtime. Medical Branch metoprolol 2021-0 Yes 25mg Take 25 mg U nivers tartrate 25 7-19 by mouth 2 it y of mg tablet 13:28: (two) [place] [address] times Medical daily. Branch oxybutynin 2021-0 Yes 5mg Take 5 mg Un [place] chloride 5 7-19 by mouth 2 ity of mg tablet 13:28: (two) [place] [address] times Medical daily. Branch aspirin 81 2021-0 Yes 81mg Take 81 mg U nivers mg chewable 7-19 by mouth ity of tablet 13:28: daily. [place] [address] Medical Branch Mometasone- 2021-0 Yes 2{puff} Inhale 2 Univers Formoterol 7-19 Puffs 2 ity of (DULERA) 13:28: (two) [place] 200-5 55 times Medical mcg/actuati daily as Bran ch on inhaler needed. foLIC acid 2021-0 Yes 1mg Take 1 mg Un [place] 1 mg tablet 7-19 by mouth ity of 13:28: daily. [place] [address] Medical Branch furosemide 2021-0 Yes 40mg Take 40 mg U nivers 40 mg 7-19 by mouth 2 ity of tablet 13:28: (two) [place] [address] times Medical daily. Branch gabapentin 2021-0 Yes 300mg Take 300 Un [place] 300 mg 7-19 mg by ity of capsule 13:28: mouth 3 [place] [address] (three) Medical times [place] daily as needed. lovastatin 2021-0 Yes 20mg Take 20 mg U nivers 20 mg 7-19 by mouth ity of tablet 13:28: at [place] [address] bedtime. Medical Branch metoprolol 2021-0 Yes 25mg Take 25 mg U nivers tartrate 25 7-19 by mouth 2 it y of mg tablet 13:28: (two) [place] [address] times Medical daily. Branch oxybutynin 2021-0 Yes 5mg Take 5 mg Un [place] chloride 5 7-19 by mouth 2 ity of mg tablet 13:28: (two) [place] [address] times Medical daily. Branch aspirin 81 2021-0 Yes 81mg Take 81 mg U nivers mg chewable 7-19 by mouth ity of tablet 13:28: daily. [place] [address] Medical Branch Mometasone- 2021-0 Yes 2{puff} Inhale 2 Univers Formoterol 7-19 Puffs 2 ity of (DULERA) 13:28: (two) [place] 200-5 55 times Medical mcg/actuati daily as Bran ch on inhaler needed. foLIC acid 2021-0 Yes 1mg Take 1 mg Un [place] 1 mg tablet 7-19 by mouth ity of 13:28: daily. [place] 55 Medical Branch furosemide 2-0 Yes 40mg Take 40 mg U nivers 40 mg 7-19 by mouth 2 ity of tablet 13:28: (two) [place] 55 times Medical daily. Branch gabapentin 2-0 Yes 300mg Take 300 Un [place] 300 mg 7-19 mg by ity of capsule 13:28: mouth 3 [place] 55 (three) Medical times [place] daily as needed. lovastatin 2-0 Yes 20mg Take 20 mg U nivers 20 mg 7-19 by mouth ity of tablet 13:28: at [place] [address] bedtime. Medical Branch metoprolol 2021-0 Yes 25mg Take 25 mg U nivers tartrate 25 7-19 by mouth 2 it y of mg tablet 13:28: (two) [place] 55 times Medical daily. Branch oxybutynin 2021-0 Yes 5mg Take 5 mg Un [place] chloride 5 7-19 by mouth 2 ity of mg tablet 13:28: (two) [place] 55 times Medical daily. Branch furosemide 2021-0 Yes 40mg Take 40 mg U nivers 40 mg 6-30 by mouth 2 ity of tablet 21:54: (two) [place] 10 times Medical daily. Branch gabapentin 2021-0 Yes 300mg Take 300 Un [place] 300 mg 6-30 mg by ity of capsule 21:54: mouth 3 [place] 10 (three) Medical times [place] daily as needed. lovastatin 2-0 Yes 20mg Take 20 mg U nivers 20 mg 6-30 by mouth ity of tablet 21:54: at [place] 10 bedtime. Medical Branch metoprolol 2-0 Yes 25mg Take 25 mg U nivers tartrate 25 6-30 by mouth 2 it y of mg tablet 21:54: (two) [place] 10 times Medical daily. Branch oxybutynin 2-0 Yes 5mg Take 5 mg Un [place] chloride 5 6-30 by mouth 2 ity of mg tablet 21:54: (two) [place] 10 times Medical daily. Branch aspirin 81 2022-0 Yes 81mg Take 81 mg U nivers mg chewable 6-30 by mouth ity of tablet 21:54: daily. [place] 10 Medical Branch Mometasone- 2021-0 Yes 2{puff} Inhale 2 Univers Formoterol 6-30 Puffs 2 ity of (DULERA) 21:54: (two) [place] 200-5 10 times Medical mcg/actuati daily as Bran ch on inhaler needed. foLIC acid 2021-0 Yes 1mg Take 1 mg Un [place] 1 mg tablet 6-30 by mouth ity of 21:54: daily. [place] [address] Medical Branch furosemide 2021-0 Yes 40mg Take 40 mg U nivers 40 mg 6-30 by mouth 2 ity of tablet 21:54: (two) [place] 10 times Medical daily. Branch gabapentin 2021-0 Yes 300mg Take 300 Un [place] 300 mg 6-30 mg by ity of capsule 21:54: mouth 3 [place] [address] (three) Medical [facility] daily as needed. lovastatin 2021-0 Yes 20mg Take 20 mg U nivers 20 mg 6-30 by mouth ity of tablet 21:54: at [place] [address] bedtime. Medical Branch metoprolol 2021-0 Yes 25mg Take 25 mg U nivers tartrate 25 6-30 by mouth 2 it y of mg tablet 21:54: (two) [place] 10 times Medical daily. Branch oxybutynin 2021-0 Yes 5mg Take 5 mg Un [place] chloride 5 6-30 by mouth 2 ity of mg tablet 21:54: (two) [place] 10 times Medical daily. Branch aspirin 81 2021-0 Yes 81mg Take 81 mg U nivers mg chewable 6-30 by mouth ity of tablet 21:54: daily. [place] [address] Medical Branch Mometasone- 2021-0 Yes 2{puff} Inhale 2 Univers Formoterol 6-30 Puffs 2 ity of (DULERA) 21:54: (two) [place] 200-5 10 times Medical mcg/actuati daily as Bran ch on inhaler needed. foLIC acid 2021-0 Yes 1mg Take 1 mg Un [place] 1 mg tablet 6-30 by mouth ity of 21:54: daily. [place] [address] Medical Branch furosemide 2021-0 Yes 40mg Take 40 mg U nivers 40 mg 6-30 by mouth 2 ity of tablet 21:54: (two) [place] 10 times Medical daily. Branch gabapentin 2021-0 Yes 300mg Take 300 Un [place] 300 mg 6-30 mg by ity of capsule 21:54: mouth 3 [place] 10 (three) Medical times Branch daily as needed. lovastatin 2021-0 Yes 20mg Take 20 mg U nivers 20 mg 6-30 by mouth ity of tablet 21:54: at [place] 10 bedtime. Medical Branch metoprolol 2021-0 Yes 25mg Take 25 mg U nivers tartrate 25 6-30 by mouth 2 it y of mg tablet 21:54: (two) [place] 10 times Medical daily. Branch oxybutynin 2021-0 Yes 5mg Take 5 mg Un [place] chloride 5 6-30 by mouth 2 ity of mg tablet 21:54: (two) [place] 10 times Medical daily. Branch aspirin 81 2021-0 Yes 81mg Take 81 mg U nivers mg chewable 6-30 by mouth ity of tablet 21:54: daily. [place] [address] Medical Branch Mometasone- 2021-0 Yes 2{puff} Inhale 2 Univers Formoterol 6-30 Puffs 2 ity of (DULERA) 21:54: (two) [place] 200-5 10 times Medical mcg/actuati daily as Bran ch on inhaler needed. foLIC acid 2021-0 Yes 1mg Take 1 mg Un [place] 1 mg tablet 6-30 by mouth ity of 21:54: daily. [place] [address] Medical Branch ipratropium 2021-0 Yes .5mg Inhale 2.5 Univers 0.02 % 6-30 mL 3 ity of nebulizer 00:00: (three) [place] solution 00 times Medical daily. Branch levalbutero 2021-0 Yes .31mg Inhale Uni vers l 0.31 mg/3 6-30 0.31 mg 3 ity of mL 00:00: (three) [place] nebulizer 00 times Medical solution daily. Branch [...] mouth ity of injection 00:00: every 6 [place] (six) Medical hours as Branch needed for [...] mouth ity of injection 00:00: every 6 [place] (six) Medical hours as Branch needed for [...] mouth ity of injection 00:00: every 6 [place] 00 (six) Medical hours as Branch needed [...] mouth ity of injection 00:00: every 6 [place] (six) Medical hours as Branch needed for [...] mouth ity of injection 00:00: every 6 [place] (six) Medical hours as Branch needed for [...] mg 3 ity of mL 00:00: (three) [place] nebulizer 00 times Medical solution daily. Branch ondansetron 2022-0 Yes 4mg Take 2 mL U nivers 4 mg/2 mL 6-30 by mouth ity of injection 00:00: every 6 [place] 00 (six) Medical hours as Branch needed for Nausea and Vomiting (N/V). pantoprazol 2022-0 Yes 40mg Take 1 Univ ers e 40 mg EC 6-30 tablet by ity of tablet 00:00: mouth 2 [place] [address] (two) Medical times Branch daily. ipratropium 2022-0 Yes .5mg Inhale 2.5 Univers 0.02 % 6-30 mL 3 ity of nebulizer 00:00: (three) [place] solution 00 times Medical daily. Branch levalbutero 2022-0 Yes .31mg Inhale Uni vers l 0.31 mg/3 6-30 0.31 mg 3 ity of mL 00:00: (three) [place] nebulizer 00 times Medical solution daily. Branch ondansetron 2022-0 Yes 4mg Take 2 mL U nivers 4 mg/2 mL 6-30 by mouth ity of injection 00:00: every 6 [place] [address] (six) Medical hours as Branch needed for Nausea and Vomiting (N/V). pantoprazol 2022-0 Yes 40mg Take 1 Univ ers e 40 mg EC 6-30 tablet by ity of tablet 00:00: mouth 2 [place] (two) Medical times Branch daily. Enoxaparin Enoxaparin 2021-0 No QD Enoxaparin Sodium 150 Sodium 150 6-08 Sodium 150 MG/ML MG/ML 00:00: MG/ML 00 Enoxaparin Enoxaparin 2021-0 No QD Enoxaparin Sodium 150 Sodium 150 6-08 Sodium 150 MG/ML MG/ML 00:00: MG/ML 00 Enoxaparin Enoxaparin 2-0 No QD Enoxaparin Sodium 150 Sodium 150 [...] No 1{table Potassium Chloride ER Chloride ER -11-09 t} Chloride 20 MEQ 20 MEQ 00:00: 00:00 ER 20 MEQ 00 :00 Potassium Potassium 2021-0 2021- No 1{table Potassium Chloride ER Chloride ER -11-09 t} Chloride 20 MEQ 20 MEQ 00:00: 00:00 ER 20 MEQ 00 :00 Potassium Potassium 2021-0 2021- No 1{table Potassium Chloride ER Chloride ER -11-09 t} Chloride 20 MEQ 20 MEQ 00:00: 00:00 ER 20 MEQ 00 :00 Potassium Potassium 2021-0 2021- No 1{table Potassium Chloride ER Chloride ER 08-11 t} Chloride 20 MEQ 20 MEQ 00:00: 00:00 ER 20 MEQ 00 :00 Potassium Potassium 2021-0 2021- No 1{table Potassium Chloride ER Chloride ER -11-09 t} Chloride 20 MEQ 20 MEQ 00:00: [...] MG/0.4ML MG/0.4ML 00:00: MG/0.4ML 00 Enoxaparin Enoxaparin 2022-0 No .4{ml} BID Enoxaparin Sodium 40 Sodium [...] 00 Nystatin Nystatin 2021- No QID Nystatin [id number] 07-19- [id number] UNIT/ML UNIT/ML 00:00: 00:00 UNIT/ML 00 :00 Nystatin Nystatin 0 2021- No QID Nystatin [id number] 07-19- 210099 UNIT/ML UNIT/ML 00:00: 00:00 UNIT/ML 00 :00 Meropenem 1 Meropenem 1 2020-03- No QD Meropenem GM GM 0-26 11-05 1 GM 00:00: 00:00 00 :00 Cefpodoxime Cefpodoxime 2020-03- No 1{table BID Cefpodoxim Proxetil Proxetil 04-20 t_with_ e Proxetil 100 MG 100 MG 00:00: 00:00 food} 100 MG 00 :00 Cefpodoxime Cefpodoxime 2020-03- No 1{table BID Cefpodoxim Proxetil Proxetil - t_with_ e Proxetil 100 MG 100 MG 00:00: 00:00 food} 100 MG 00 :00 Azithromyci Azithromyci 2020- No QD Azithromyc n 250 MG n 250 MG 10-27 08-25 in 250 MG 00:00: 00:00 00 :00 Azithromyci Azithromyci 2021-0 2021- No QD Azithromyc n 250 MG n 250 MG 10-27-25 in 250 MG 00:00: 00:00 00 :00 Metoprolol Metoprolol 2019-0 Yes Na Gutierrez 1 tablet Common Tartrate Tartrate 11-02 with food Sp dre 00:00: - CHI [facility] Doxycycline Doxycycline 2017-03 Yes Na Gutierrez 1 capsule Common Hyclate Hyclate 03-30 Spirit 00:00: - [facility]I 00 [facility] NAPROXEN 2004-03 Yes 1tab po q Univ ers 250 MG ORAL 2-22 6 hrs prn ity of TAB 00:00: pain [facility] FAMOTIDINE 2004- Yes 1 tab po Uni vers 20 MG ORAL 2-22 qd ity of TAB 00:00: [facility] FUROSEMIDE 2004- Yes 1 tab po Uni vers 20 MG ORAL 2-22 bid ity of TAB 00:00: [facility] NAPROXEN 2004- Yes 1tab po q Univ ers 250 MG ORAL 2-22 6 hrs prn ity of TAB 00:00: [facility] FAMOTIDINE 2004- Yes 1 tab po Uni vers 20 MG ORAL 2-22 qd ity of TAB 00:00: [facility] FUROSEMIDE 2004- Yes 1 tab po Uni vers 20 MG ORAL 2-22 bid ity of TAB 00:00: [facility] NAPROXEN 2004- Yes 1tab po q Univ ers 250 MG ORAL 2-22 6 hrs prn ity of TAB 00:00: pain [facility] FAMOTIDINE 2004- Yes 1 tab po Uni vers 20 MG ORAL 2-22 qd ity of TAB 00:00: [facility] FUROSEMIDE 2004- Yes 1 tab po Uni vers 20 MG ORAL 2-22 bid ity of TAB 00:00: [facility] NAPROXEN 2004- Yes 1tab po q Univ ers 250 MG ORAL 2-22 6 hrs prn ity of TAB 00:00: [facility] FAMOTIDINE 2004- Yes 1 tab po Uni vers 20 MG ORAL 2-22 qd ity of TAB 00:00: [place] [address] [facility] Branch FUROSEMIDE 2004-03 Yes 1 tab po Uni vers 20 MG ORAL 2-22 bid ity of TAB 00:00: [facility] NAPROXEN 2004-03 Yes 1tab po q Univ ers 250 MG ORAL 2-22 6 hrs prn ity of TAB 00:00: pain [facility] FAMOTIDINE 2004-03 Yes 1 tab po Uni vers 20 MG ORAL 2-22 qd ity of TAB 00:00: [facility] FUROSEMIDE 2004-03 Yes 1 tab po Uni vers 20 MG ORAL 2-22 bid ity of TAB 00:00: [facility] NAPROXEN 2004-03 Yes 1tab po q Univ ers 250 MG ORAL 2-22 6 hrs prn ity of TAB 00:00: [facility] FAMOTIDINE 2004-03 Yes 1 tab po Uni vers 20 MG ORAL 2-22 qd ity of TAB 00:00: [facility] FUROSEMIDE 2004-03 Yes 1 tab po Uni vers 20 MG ORAL 2-22 bid ity of TAB 00:00: [facility] HYDROcodone HYDROcodone No 1{table QID HYDROcodon -Acetaminop -Acetaminop t_as_ne e-Acetamin hen 7.5-325 hen 7.5-325 eded} ophen MG MG 7.5-325 MG Fluocinonid Fluocinonid No 1{appli BID Fluocinoni e 0.05 % e 0.05 % cation_ de 0.05 % to_affe cted_ar ea} Nystatin Nystatin No 1{appli BID Nystatin 974825 771532 cation_ 623186 UNIT/GM UNIT/GM to_affe UNIT/GM cted_ar ea} Potassium [...] ea} Nystatin Nystatin No 1{appli BID Nystatin 653688 043425 cation_ 616001 UNIT/GM UNIT/GM to_affe UNIT/GM cted_ar ea} Benzonatate [...] MCG/ACT Nystatin Nystatin No 1{appli BID Nystatin 263271 036897 cation_ 606637 UNIT/GM UNIT/GM to_affe UNIT/GM cted_ar ea} Furosemide [...] GM Nystatin Nystatin No 1{appli BID Nystatin 695226 994537 cation_ 932567 UNIT/GM UNIT/GM to_affe UNIT/GM cted_ar ea} Sennosides [...] GM Nystatin Nystatin No 1{appli BID Nystatin 265938 403651 cation_ 078399 UNIT/GM UNIT/GM to_affe UNIT/GM cted_ar ea} Sennosides [...] GM Nystatin Nystatin No 1{appli BID Nystatin 273256 063270 cation_ 334201 UNIT/GM UNIT/GM to_affe UNIT/GM cted_ar ea} Sennosides [...] r_milk} Nystatin Nystatin No 1{appli BID Nystatin 378618 337459 cation_ 814914 UNIT/GM UNIT/GM to_affe UNIT/GM cted_ar ea} Fluocinonid [...] MG Nystatin Nystatin No 1{appli BID Nystatin 300531 941320 cation_ 198641 UNIT/GM UNIT/GM to_affe UNIT/GM cted_ar ea} Furosemide [...] MCG/ACT Nystatin Nystatin No 1{appli BID Nystatin 737505 320345 cation_ 638985 UNIT/GM UNIT/GM to_affe UNIT/GM cted_ar ea} Indomethaci [...] tablet Common Tartrate Tartrate with food Sp [facility] Benadryl Benadryl No 1{table TID [...] mg Nystatin Nystatin No 1{appli BID Nystatin 250899 341382 cation_ 222580 UNIT/GM UNIT/GM to_affe UNIT/GM cted_ar ea} Indomethaci [...] MG Nystatin Nystatin No 1{appli BID Nystatin 738484 905932 cation_ 712708 UNIT/GM UNIT/GM to_affe UNIT/GM cted_ar ea} Benadryl [...] MG Nystatin Nystatin No 1{appli BID Nystatin 974153 575418 cation_ 916495 UNIT/GM UNIT/GM to_affe UNIT/GM cted_ar ea} Benadryl [...] MG Nystatin Nystatin No 1{appli BID Nystatin 895623 167610 cation_ 544781 UNIT/GM UNIT/GM to_affe UNIT/GM cted_ar ea} Benadryl [...] MG Nystatin Nystatin No 1{appli BID Nystatin 555286 285999 cation_ 885548 UNIT/GM UNIT/GM to_affe UNIT/GM cted_ar ea} Benadryl [...] MG Nystatin Nystatin No 1{appli BID Nystatin 682687 706472 cation_ 472778 UNIT/GM UNIT/GM to_affe UNIT/GM cted_ar ea} Lovastatin [...] MG Nystatin Nystatin No 1{appli BID Nystatin 595549 721513 cation_ 575578 UNIT/GM UNIT/GM to_affe UNIT/GM cted_ar ea} Lovastatin [...] MG Nystatin Nystatin No 1{appli BID Nystatin 721264 559006 cation_ 651035 UNIT/GM UNIT/GM to_affe UNIT/GM cted_ar ea} Hydrocortis [...] mg Nystatin Nystatin No 1{appli BID Nystatin 017635 837739 cation_ 656519 UNIT/GM UNIT/GM to_affe UNIT/GM cted_ar ea} Furosemide [...] mg Nystatin Nystatin No 1{appli BID Nystatin 278926 032129 cation_ 600787 UNIT/GM UNIT/GM to_affe UNIT/GM cted_ar ea} Furosemide [...] MG Nystatin Nystatin No 1{appli BID Nystatin 595397 187495 cation_ 741130 UNIT/GM UNIT/GM to_affe UNIT/GM cted_ar ea} Furosemide [...] MG Nystatin Nystatin No 1{appli BID Nystatin 349120 574475 cation_ 515297 UNIT/GM UNIT/GM to_affe UNIT/GM cted_ar ea} Furosemide [...] ed} Nystatin Nystatin No 1{appli BID Nystatin 129664 551805 cation_ 173489 UNIT/GM UNIT/GM to_affe UNIT/GM cted_ar ea} Hydrocortis [...] ed} Nystatin Nystatin No 1{appli BID Nystatin 606461 820872 cation_ 636455 UNIT/GM UNIT/GM to_affe UNIT/GM cted_ar ea} Hydrocortis [...] ed} Nystatin Nystatin No 1{appli BID Nystatin 738098 511920 cation_ 292646 UNIT/GM UNIT/GM to_affe UNIT/GM cted_ar ea} Hydrocortis [...] eeded} Nystatin Nystatin No 1{appli BID Nystatin 362807 311909 cation_ 385082 UNIT/GM UNIT/GM to_affe UNIT/GM cted_ar ea} Spiriva [...] 400 No Motrin 400 mg mg mg Vital Signs Vital Name Observation Time Observation Value Comments Source Systolic blood 2021-10-11 18:44:00 106 mm[Hg] [facility] Diastolic blood 2021-10-11 18:44:00 66 mm[Hg] [facility] Heart rate 2021-10-11 18:44:00 62 /min [facility] Body temperature 2021-10-11 18:44:00 36.78 Jacquelin [facility] Respiratory rate 2021-10-11 18:44:00 16 /min [facility] Body height 2021-10-11 18:44:00 162.6 cm [facility] Body weight 2021-10-11 18:44:00 130.636 kg [facility] BMI 2021-10-11 18:44:00 49.44 kg/m2 [facility] Procedures Procedure Date / Time Performing Clinician Source Performed HOME HEALTH - OTHER 2022-12-02 05:01:00 [facility] 2021-11-26 05:01:00 [facility] Name [facility] Branch EXTERNAL PROVIDER 2021-09-19 05:01:00 Doctor Unassigned, No [facility] RECORDS Name Medical Branch Encounters Start End Encounter Admission Attending Care Care Encounter Source Date/Time Date/Time Type Type Clinicians Facility Department ID 2022-11-03 Inpatient [facility] FINESSE [id number] [facility] 22:09:00 [facility] 2022-02-04 Outpatient Gutierrez, Na STLMLC STLMLC [id number] Common 13:09:00 [facility] 2021-09-12 Outpatient Gutierrez, Na STLMLC STLMLC [id number] Common 10:05:00 [facility] 2021-07-13 Outpatient Gutierrez, Na STLMLC STLMLC [id number] Common 12:02:00 [facility] 2021-07-12 Outpatient Gutierrez, Na STLMLC STLMLC [id number] Common 13:49:00 [facility] 2021-06-11 Outpatient Gutierrez, Na STLMLC STLMLC [id number] 2 Common 08:32:00 [facility] 2021-06-05 Outpatient Gutierrez, Na STLMLC STLMLC [id number] Common 11:00:01 [facility] 2021-05-31 Outpatient Gutierrez, Na STLMLC STLMLC [id number] 2 Common 09:00:01 [facility] 2021-05-14 Outpatient Gutierrez, Na STLMLC STLMLC [id number] 2 Common 09:20:01 [facility] 2021-04-26 Outpatient Gutierrez, Na STLMLC STLMLC [id number] Common 15:13:00 [facility] 2021-04-04 Outpatient Gutierrez, Na STLMLC STLMLC [id number] Common 13:37:41 [facility] 2021-04-04 Outpatient Gutierrez, Na STLMLC STLMLC [id number] Common 13:27:35 [id number] [facility] 2021-04-04 Outpatient Gutierrez, Na STLMLC STLMLC [id number] Common 13:10:57 [id number] [facility] 2021-04-04 Outpatient Gutierrez, Na STLMLC STLMLC [id number] 2 Common 12:33:38 [id number] [facility] 2021-04-04 Outpatient Gutierrez, Na STLMLC STLMLC [id number] 2 Common 12:33:09 [id number] [facility] 2021-04-04 Outpatient Gutierrez, Na STLMLC STLMLC [id number] 2 Common 11:19:52 [id number] [facility] 2021-04-04 Outpatient Gutierrez, Na STLMLC STLMLC [id number] 2 Common 11:19:18 [id number] [facility] 2022-12-02 2022-12-02 Orders Doctor MARIJA [id number] Univers 00:00:00 00:00:00 Only Unassigned, ELENI [id number]y [address] [place] [facility] 4.2.7.2.[phone] [facility] 009 Branch 2022-11-04 2022-11-15 Inpatient TR Rebekah, KARTHIKCL INTE [id number] [facility] 01:26:00 14:49:[address] [place] [address] 2022-02-12 2022-02-12 Telephone GARRICK Avery .2.840.114 [id number] Univers 00:00:00 00:00:00 [facility] [id number] i ty of [facility] 4.2.7.2.[phone] [facility] 204 Branch 2021-12-25 2021-12-25 Outpatient Steve PARKER [facility] [id number] Univers 11:30:00 11:30:00 LUIS CARLOS jerry [facility] 2021-12-18 2021-12-18 Telephone GARRICK Avery .2.840.114 [id number] Univers 00:00:00 00:00:00 [facility] [id number] i ty of [place] [facility] 4.2.7.2.[phone] [facility] 204 Branch 2021-11-26 2021-11-26 Orders Doctor MARIJA 1.2.840.114 [id number] Univers 00:00:00 00:00:00 Only Unassigned, ELENI [id number] [place] [facility] 4.2.7.2.[id number] [facility] 009 Branch 2021-10-17 2021-10-17 OFFICE [facility] [id number] Co mmon 00:00:00 00:00:00 VISIT [facility] PT - CHI LEVEL 4 [facility] 2021-10-16 2021-10-16 [facility]EL[id number] Co mmon 00:00:00 00:00:00 Spirit [facility] 2021-10-15 2021-10-15 Telephone Merle, UNIVERSIT 1.2.840.114 [id number] Univers 00:00:00 00:00:00 [facility] [id number] i ty of [place] [facility] 4.2.7.2.[phone] [facility] 204 [place] 2021-10-12 2021-10-12 [facility] 1.2.840.114 [id number] Univers 00:00:00 00:00:00 [facility] 350.1.13.10 i ty of [place] [facility] 4.2.7.2.[id number] [facility] 204 Branch 2021-10-11 2021-10-11 Office Merleta, UNIVERSIT 1.2.840.114 [id number] Univers 13:15:00 13:30:00 Visit [facility] 350.1.13.10 i ty of [place] [facility] 4.2.7.2.[phone] [facility] [address] [place] 2021-10-11 2021-10-11 Outpatient R HUONG [facility] [id number] Univers 13:15:00 13:15:00 ZACH dylan [facility] 2021-10-11 2021-10-11 Outpatient R HUONG [facility] [id number] Univers 13:15:00 13:15:00 ZACH dylan [facility] 2021-09-19 2021-09-19 Orders Doctor MARIJA 1.2.840.114 [id number] Univers 00:00:00 00:00:00 Only Unassigned, ELENI 350.1.13.[address] [place] [facility] 4.2.7.2.[phone] [facility] 009 Branch 2021-09-19 2021-09-19 Telephone Miguel [facility] [id number] Univers 00:00:00 00:00:00 Crystal BUTLER 350.1.13.10 i ty of [place] 4.2.7.2.[address] [facility] [phone] Me dical NAL 296 Branch BUILDING 2021-09-13 2021-09-13 (TEL) [facility] [id number] Co mmon 00:00:00 00:00:00 [facility] 2021-08-27 2021-09-06 Inpatient U [facility] TERRIE [id number] Univers 22:49:00 20:02:00 [facility] ity [facility] 2021-08-27 2021-09-06 [facility] Evert Zachary NICHOLSNIE 1.2.840.1 [id number] Univers 22:49:00 20:02:00 Encounter Janae Hammond 350.1 .13.10 ity of [facility] 4.2.7.2.[address] [place] [id number] [facility] 094 Branch 2021-09-03 2021-09-03 Telephone Manish [facility] 1.2.840.114 [id number] Univers 00:00:00 00:00:00 Janae MULTISPEC 350.1.13.10 ity of [facility] 4.2.7.2.686 [facility] [id number] [facility] AND [address] [facility] 2021-08-10 2021-08-10 (TEL) STLMLC STLMLC [id number] Co mmon 00:00:00 00:00:00 [facility] 2021-08-09 2021-08-09 OFFICE STLMLC STLMLC [id number] Co mmon 00:00:00 00:00:00 VISIT [facility] PT - CHI LEVEL 4 [facility] 2021-08-09 2021-08-09 (TEL) STLMLC STLMLC [id number] Co mmon 00:00:00 00:00:00 [facility] 2021-07-19 2021-07-19 (TEL) STLMLC STLMLC [id number] Co mmon 00:00:00 00:00:00 [facility] 2021-07-13 2021-07-13 OFFICE STLMLC STLMLC [id number] Co mmon 00:00:00 00:00:00 VISIT [facility] PT [address] 2021-07-12 2021-07-12 (TEL) STLMLC STLMLC [id number] Co mmon 00:00:00 00:00:00 [facility] 2021-06-28 2021-06-28 (TEL) STLMLC STLMLC [id number] Co mmon 00:00:00 00:00:00 [facility] 2021-06-13 2021-06-13 OFFICE STLMLC STLMLC [id number] Co mmon 00:00:00 00:00:00 VISIT [facility] PT CHI [address] 2021-06-12 2021-06-12 (TEL) STLMLC STLMLC [id number] Co mmon 00:00:00 00:00:00 [facility] 2021-06-04 2021-06-04 (TEL) STLMLC STLMLC [id number] Co mmon 00:00:00 00:00:00 [facility] 2021-05-28 2021-05-28 (TEL) STLMLC STLMLC [id number] Co mmon 00:00:00 00:00:00 [facility] 2021-05-14 2021-05-14 (TEL) STLMLC STLMLC [id number] Co mmon 00:00:00 00:00:00 [facility] 2021-04-26 2021-04-26 OFFICE STLMLC STLMLC [id number] Co mmon 00:00:00 00:00:00 VISIT [facility] 4 [facility] 2021-04-25 2021-04-25 (TEL) STLMLC STLMLC [id number] Co mmon 00:00:00 00:00:00 [facility] 2021-04-12 2021-04-12 (TEL) STLMLC STLMLC [id number] Co mmon 00:00:00 00:00:00 [facility] 2021-03-30 2021-03-30 (TEL) STLMLC STLMLC [id number] Co mmon 00:00:00 00:00:00 [facility] 2021-02-27 2021-02-27 (TEL) STLMLC STLMLC [id number] Co mmon 00:00:00 00:00:00 [facility] 2021-01-01 2021-01-01 (TEL) STLMLC STLMLC [id number] Co mmon 00:00:00 00:00:00 [facility] 2020-12-19 2020-12-19 (TEL) STLMLC STLMLC [id number] Co mmon 00:00:00 00:00:00 [facility] 2020-10-26 2020-10-26 (TEL) STLMLC STLMLC [id number] Co mmon 00:00:00 00:00:00 [facility] 2020-10-26 2020-10-26 (TEL) STLMLC STLMLC [id number] Co mmon 00:00:00 00:00:00 [facility] 2020-10-19 2020-10-19 (TEL) STLMLC STLMLC [id number] Co mmon 00:00:00 00:00:00 [facility] 2020-10-11 2020-10-11 Outpatient STLMLC STLMLC [id number] Common 00:00:00 00:00:00 [facility] 2020-09-27 2020-09-27 Outpatient STLMLC STLMLC [id number] Common 00:00:00 00:00:00 [facility] 2020-09-27 2020-09-27 Outpatient STLMLC STLMLC [id number] Common 00:00:00 00:00:00 [facility] 2020-09-22 2020-09-22 Outpatient STLMLC STLMLC [id number] Common 00:00:00 00:00:00 [facility] 2020-08-15 2020-08-15 Outpatient STLMLC STLMLC [id number] Common 00:00:00 00:00:00 [facility] 2020-07-21 2020-07-21 Outpatient STLMLC STLMLC [id number] Common 00:00:00 00:00:00 [facility] 2020-07-03 2020-07-03 Outpatient STLMLC STLMLC [id number] Common 00:00:00 00:00:00 [facility] 2020-06-30 2020-06-30 Outpatient STLMLC STLMLC [id number] Common 00:00:00 00:00:00 [facility] 2020-06-30 2020-06-30 Outpatient STLMLC STLMLC [id number] Common 00:00:00 00:00:00 [facility] 2020-06-27 2020-06-27 Outpatient STLMLC STLMLC [id number] Common 00:00:00 00:00:00 [facility] 2020-06-07 2020-06-07 Outpatient STLMLC STLMLC [id number] Common 00:00:00 00:00:00 [facility] 2020-05-29 2020-05-29 Outpatient STLMLC STLMLC [id number] Common 00:00:00 00:00:00 [facility] 2020-05-23 2020-05-23 Outpatient STLMLC STLMLC [id number] Common 00:00:00 00:00:00 [facility] 2020-05-11 2020-05-11 Outpatient STLMLC STLMLC [id number] Common 00:00:00 00:00:00 [facility] 2020-05-07 2020-05-07 Outpatient STLMLC STLMLC [id number] Common 00:00:00 00:00:00 [facility] 2020-05-04 2020-05-04 Outpatient STLMLC STLMLC [id number] Common 00:00:00 00:00:00 [facility] 2020-04-19 2020-04-19 Outpatient STLMLC STLMLC [id number] Common 00:00:00 00:00:00 [facility] 2020-04-04 2020-04-04 Outpatient STLMLC STLMLC [id number] Common 00:00:00 00:00:00 [facility] 2020-02-04 2020-02-04 Outpatient STLMLC STLMLC [id number] Common 00:00:00 00:00:00 [facility] 2020-02-01 2020-02-01 Outpatient STLMLC STLMLC [id number] Common 00:00:00 00:00:00 [facility] 2020-01-05 2020-01-05 Outpatient STLMLC STLMLC [id number] Common 00:00:00 00:00:00 [facility] 2019-12-20 2019-12-20 Outpatient STLMLC STLMLC [id number] Common 00:00:00 00:00:00 [facility] 2019-12-19 2019-12-19 Outpatient STLMLC STLMLC [id number] Common 00:00:00 00:00:00 [facility] 2019-12-17 2019-12-17 Outpatient STLMLC STLMLC [id number] Common 00:00:00 00:00:00 [facility] 2019-11-03 2019-11-03 [id number] Common 10:19:00 10:19:[address] [facility] 2019-10-06 2019-10-06 [facility] [id number] Common 16:47:00 16:47:[address] [facility] 2019-09-30 2019-09-30 [facility] [id number] Common 14:56:00 14:56:[address] [facility] 2019-09-14 2019-09-14 [facility] [id number] Common 13:55:00 13:55:[address] [facility] 2019-08-12 2019-08-12 [facility] [id number] Common 11:39:00 11:39:[address] [facility] 2019-07-09 2019-07-09 [facility] [id number] Common 11:26:00 11:26:[address] [facility] 2019-07-06 2019-07-06 [facility] [id number] Common 14:00:00 14:00:[address] [facility] 2019-06-11 2019-06-11 [facility] [id number] Common 10:29:00 10:29:[address] [facility] 2019-06-08 2019-06-08 [facility] [id number] Common 10:57:00 10:57:[address] [facility] 2019-05-24 2019-05-24 [facility] [id number] Common 14:44:00 14:44:[address] [facility] 2019-04-12 2019-04-12 [facility] [id number] Common 10:58:00 10:58:[address] Family - [facility] 2019-04-08 2019-04-08 [facility] [id number] Common 17:13:00 17:13:[address] [facility] 2019-03-26 2019-03-26 [facility] [id number] Common 07:58:00 07:58:[address] [facility] 2019-02-01 2019-02-01 Out[facility] [id number] Common 10:49:00 10:49:[address] [facility] 2019-01-21 2019-01-21 [facility] [id number] Common 12:09:00 12:09:[address] [facility] 2018-12-31 2018-12-31 [facility] [id number] Common 13:40:00 13:40:[address] [facility] 2018-12-24 2018-12-24 [facility] [id number] Common 16:51:00 16:51:[address] [facility] 2018-12-22 2018-12-22 [facility] [id number] Common 10:09:00 10:09:[address] [facility] 2018-12-16 2018-12-16 [facility] [id number] Common 13:32:00 13:32:[address] [facility] 2018-12-09 2018-12-09 [facility] [id number] Common 15:07:00 15:07:[address] [facility] 2018-12-08 2018-12-08 [facility] [id number] Common 09:21:00 09:21:[address] [facility] 2018-12-07 2018-12-07 [facility] [id number] Common 15:10:00 15:10:[address] [facility] 2018-10-29 2018-10-29 [facility] [id number] Common 11:00:00 11:00:[address] [facility] 2018-10-20 2018-10-20 [facility] [id number] Common 13:23:00 13:23:[address] [facility] 2018-10-05 2018-10-05 [facility] [id number] Common 16:27:00 16:27:[address] [facility] 2018-09-25 2018-09-25 [facility] [id number] Common 16:15:00 16:15:[address] [facility] 2018-09-23 2018-09-23 [facility] [id number] Common 15:54:00 15:54:[address] [facility] 2018-08-27 2018-08-27 [id number] Common 16:00:00 16:00:[address] [facility] 2018-08-25 2018-08-25 [facility] [id number] Common 15:20:00 15:20:[address] [facility] Results Test Description Test Time Test Comments Results Result Comments Source CBC W/AUTO DIFF 2022-11-13 08:12:00 Test Item Value Reference Range Interpretation Comme nts WHITE BLOOD CELL (test code = WBC) 6.0 x10 3/uL 4.5-11.0 N RED BLOOD CELL (test code = RBC) 3.28 x10 6/uL 3.54-5.02 L HEMOGLOBIN (test code = HGB) 9.0 g/dL 11.0-15.0 L HEMATOCRIT (test code = HCT) 28.9 % 33.0-45.0 L MEAN CELL VOLUME (test code = MCV) 88.1 fL 81.0-99.0 N MEAN CELL HGB (test code = MCH) 27.4 pg 27.0-33.0 N MEAN CELL HGB CONCETRATION (test code = MCHC) 31.1 g/dL 33.0-37. 0 L RED CELL DISTRIBUTION WIDTH CV (test code = RDW) 19.2 % 11.5- 14.5 H RED CELL DISTRIBUTION WIDTH SD (test code = RDW-SD) 61.4 fL 37 .0-54.0 H PLATELET COUNT (test code = PLT) 280 x10 3/uL 150-400 N MEAN PLATELET VOLUME (test code = MPV) 11.0 fL 7.0-9.0 H NEUTROPHIL % (test code = NT%) 60.6 % 56.0-77.0 N IMMATURE GRANULOCYTE % (test code = IG%) 0.3 % 0.0-2.0 N LYMPHOCYTE % (test code = LY%) 22.3 % 14.0-32.0 N MONOCYTE % (test code = MO%) 8.5 % 4.8-9.0 N EOSINOPHIL % (test code = EO%) 7.5 % 0.3-3.7 H BASOPHIL % (test code = BA%) 0.8 % 0.0-2.0 N NUCLEATED RBC % (test code = NRBC%) 0.0 % 0-0 N NEUTROPHIL # (test code = NT#) 3.61 x10 3/uL 2.0-7.6 N IMMATURE GRANULOCYTE # (test code = IG#) 0.02 x10 3/uL 0.00-0.03 N LYMPHOCYTE # (test code = LY#) 1.33 x10 3/uL 1.0-3.8 N MONOCYTE # (test code = MO#) 0.51 x10 3/uL 0.1-0.8 N EOSINOPHIL # (test code = EO#) 0.45 x10 3/uL 0.0-0.2 H BASOPHIL # (test code = BA#) 0.05 x10 3/uL 0.0-0.2 N NUCLEATED RBC # (test code = NRBC#) 0.00 x10 3/uL 0.0-0.1 N MANUAL DIFF REQUIRED (test code = MDIFF) NO BASIC METABOLIC [id number] 07:25:00 Test Item Value Reference Range Interpretation Comments SODIUM (test code = 140 mEq/L 134-147 N NA) POTASSIUM (test code 3.9 mEq/L 3.4-5.0 N = K) CHLORIDE (test code 108 mEq/L 100-108 N = CL) CARBON DIOXIDE (test 26 mEq/l 21-33 N code = CO2) ANION GAP (test code 9 0-20 N = GAP) GLUCOSE (test code = 87 mg/dL 77-141 N NOTE: N EW NORMAL RANGE GLU) BLOOD UREA NITROGEN 32 mg/dL 7-25 H NOTE: NE W NORMAL RANGE (test code = BUN) GLOMERULAR 40.7 80-90 L The Glomerular FILTRATION RATE Filtration R ate is a (test code = GFR) calculated parameterbased on serum Creatinine, pat ient age and sex. GFR va luesless than 60 mL/min/ 1.73 square meters a re indicative ofCh ronic Kidney Disease. Values less than 15 mL/min/1.73squa re meters indicate Kidney failure. The calculation forGFR is based on the CKD-EPI (2020) calculat ion. This formulais race indifferent and is the recommended for pasquale for GFRby the Nat nal Kidney Foundati on for Adults.The GFR will not calculate if th e sex is unknown or if thepatient's ag e is <18 years. CREATININE (test 1.4 mg/dL 0.6-1.3 H code = CREAT) CALCIUM (test code = 8.3 mg/dL 8.0-10.5 N CA) URINALYSIS [id number] 17:53:00 Test Item Value Reference Range Interpretation Comments UA COLOR (test code = COLU) YELLOW YEL/STRAW UA APPEARANCE (test code = CLOUDY CLEAR A APPU) UA GLUCOSE DIPSTICK (test code NEGATIVE NEGATIVE = DGLUU) UA BILIRUBIN DIPSTICK (test NEGATIVE NEGATIVE code = BILU) UA KETONE DIPSTICK (test code NEGATIVE NEGATIVE = KETU) UA SPECIFIC GRAVITY (test code 1.011 1.005-1.030 N = SGU) UA BLOOD DIPSTICK (test code = 2+ NEGATIVE A KATE) UA PH DIPSTICK (test code = 6.0 5.0-7.0 N RAYO) UA PROTEIN DIPSTICK (test code 1+ NEGATIVE A = PROU) UA UROBILINIOGEN DIPSTICK 0.2 mg/dL 0.2-1.0 (test code = URO) UA NITRITE DIPSTICK (test code POSITIVE NEGATIVE A = LESLIE) UA LEUKOCYTE ESTERASE DIPSTICK 3+ NEGATIVE A (test code = LEUU) UA RBC (test code = RBCU) 21-50 RBC/HPF 0-3 UA WBC NO REFLEX (test code = >50 WBC/HPF 0-3 A WBCUCL) UA BACTERIA (test code = BACU) 4+ /HPF NONE SEEN A UA SQUAMOUS CELLS (test code = NONE SEEN /HPF NONE SEEN SQU) UA TRANSITIONAL CELLS (test 1+ /HPF NONE SEEN A code = TRANU) UA MUCUS (test code = MUCU) TRACE /LPF NONE SEEN - XR SHOULDER 2 + V [id number] 00:00[facility] 1955 Sex: F FAX: Catrachita Guzman APRN [place]: St: [facility] FAX: Aneesh Welch DO [phone] Name: ROASRIO- JEFFREYCLYDEKYLIE [facility] : 1955 Age/S: 67/F [address] [place] [address] Unit #: [id number] Loc: G.[address] [place] [address] Phys: Catrachita Guzman Acct: [id number] Dis Date: Status: ADM IN PHONE #: [phone] Date: 11/07/2022 1459 FAX #: [phone] Reason: pain s/p fall EXAMS: CPT CODE: [id number] XR SHOULDER 2 + V RT [id number] PROCEDURE INFORMATION: Exam: XR Right Shoulder Exam date and time: 11/07/2022 2:07 PM Age: 67 years old Clinical indication: Other: Pain S/P fall TECHNIQUE: Imaging protocol: Radiologic exam of the right shoulder. Views: 2 or more views. AP INT/ EXT ROTATION, SCAPULAR Y COMPARISON: DX (Humerus AP, Humerus, ) 11/03/2022 7:47 PM FINDINGS: Bones/joints: There is normal alignment at the glenohumeral joint. There are no fractures or dislocations. Moderate degenerative changes of the shoulder are visualized. Soft tissues: There are no radiopaque foreign bodies. Notes: If there is further concern, follow-up radiographs or MRI of the shoulder may be performed for complete assessment. IMPRESSION: No acute findings. at 5512 Reported and signed by: Ruben Doyle M.D. CC: Catrachita Welch DO Technologist:RT Jaqueline(R) Trnscrd Date/Time/By: 11/07/2022 (1549) : By: [email or web address] Orig Print D/T: S: 11/07/2022 (3832) PAGE 1 Signed Report- XR HUMERUS 2 + V [id number] 00:00[facility]00[facility] ROSARIO-SHORT, FRANCIES : 1955 Sex: F FAX: Catrachita Guzman APRN [place]: St: ADM FAX: Aneesh Welch DO [phone] Name: JV WEIR [facility] : 1955 Age/S: 67/F [address] [place] [address] Unit #: [id number] Loc: [facility] [id number] Phys: Catrachita Guzman Acct: [id number] Dis Date: Status: ADM IN PHONE #: [phone] Date: 11/07/2022 1459 FAX #: [phone] Reason: pain s/p fall EXAMS: CPT CODE: [id number] XR HUMERUS 2 + V RT [id number] PROCEDURE INFORMATION: Exam: XR Right Humerus Exam date and time: 11/07/2022 2:07 PM Age: 67 years old Clinical indication: Other: Pain S/P fall TECHNIQUE: Imaging protocol: Radiologic exam of the right humerus. Views: 2 or more views. AP and Lateral COMPARISON: DX (Humerus AP, Humerus, ) 11/03/2022 7:47 PM FINDINGS: Bones/joints: There is normal alignment of the humerus without fractures or dislocations. Soft tissues: No radiopaque foreign bodies. Notes: If there is further concern, recommend follow-up radiographs or bone scan for complete assessment. IMPRESSION: No acute findings. at 1542 Reported and signed by: Ruben Doyle M.D. CC: Catrachita Welch DO Technologist: RT Jaqueline(Steve) Trnsdoswald Date/Time/By: 11/07/2022 (0796) : By: [email or web address] Orig Print D/T: S: 11/07/2022 (8006) PAGE 1 Signed ReportCOMPREHENSIVE METABOLIC [id number] 06:33:00 Test Item Value Reference Range Interpretation Comments SODIUM (test code = 142 mEq/L 134-147 N NA) POTASSIUM (test code 4.1 mEq/L 3.4-5.0 N = K) CHLORIDE (test code 109 mEq/L 100-108 H = CL) CARBON DIOXIDE (test 24 mEq/l 21-33 N code = CO2) ANION GAP (test code 13 0-20 N = GAP) GLUCOSE (test code = 93 mg/dL 77-141 N NOTE: N EW NORMAL RANGE GLU) BLOOD UREA NITROGEN 26 mg/dL 7-25 H NOTE: NE W NORMAL RANGE (test code = BUN) GLOMERULAR 34.7 80-90 L The Glomerular FILTRATION RATE Filtration R ate is a (test code = GFR) calculated parameterbased on serum Creatinin e, patient age and sex. GFR valuesless than 60 mL/min/1.73 squ are meters are preston cative ofChronic Kidne y Disease. Values less than 15 mL/min/1.73squa re meters indicate Kidney failure. The calculation for GFR is based on the CK D-EPI (2020) calculat ion. This formulais race indifferent and is the recommended for [place] for GFRby the N ational Kidney Foundati on for Adults.The GFR will not calculate i f the sex is unknown or if thepatient's ag e is <18 years. CREATININE (test 1.6 mg/dL 0.6-1.3 H code = CREAT) TOTAL PROTEIN (test 6.8 g/dL 6.4-8.2 N code = PROT) ALBUMIN (test code = 2.70 g/dL 3.4-5.0 L ALB) CALCIUM (test code = 8.1 mg/dL 8.0-10.5 N CA) BILIRUBIN TOTAL 0.30 mg/dL 0.0-1.0 (test code = BILT) SGOT/AST (test code 11 IUnit/L 8-34 N NOTE: NE W NORMAL RANGE = AST) SGPT/ALT (test code < 7 IUnit/L 10-49 L NOTE: NE W NORMAL RANGE = ALT) ALKALINE PHOSPHATASE 58 IUnit/L 20-125 N TOTAL (test code = ALKP) [id number] 06:33:00 Test Item Value Reference Range Interpretation Comments PHOSPHOROUS (test code = PHOS) 5.3 MG/DL 2.5-4.9 H [id number] 06:33:00 Test Item Value Reference Range Interpretation Comments MAGNESIUM (test code = 1.99 mg/dL 1.6-2.6 N NOTE: NEW NORMAL MAG) RANGE CALCIUM [id number] 06:33:00 Test Item Value Reference Range Interpretation Comments CALCIUM IONIZED (test code = AUBREY) 1.12 MMOL/L 1.09-1.30 N CBC W/AUTO [id number] 06:15:00 Test Item Value Reference Range Interpretation Comments WHITE BLOOD CELL (test code = 6.8 x10 3/uL 4.5-11.0 N WBC) RED BLOOD CELL (test code = 3.02 x10 6/uL 3.54-5.02 L RBC) HEMOGLOBIN (test code = HGB) 8.1 g/dL 11.0-15.0 L HEMATOCRIT (test code = HCT) 26.3 % 33.0-45.0 L MEAN CELL VOLUME (test code = 87.1 fL 81.0-99.0 N MCV) MEAN CELL HGB (test code = MCH) 26.8 pg 27.0-33.0 L MEAN CELL HGB CONCETRATION 30.8 g/dL 33.0-37.0 L (test code = MCHC) RED CELL DISTRIBUTION WIDTH CV 16.6 % 11.5-14.5 H (test code = RDW) RED CELL DISTRIBUTION WIDTH SD 51.6 fL 37.0-54.0 N (test code = RDW-SD) PLATELET COUNT (test code = 297 x10 3/uL 150-400 N PLT) MEAN PLATELET VOLUME (test code 10.5 fL 7.0-9.0 H = MPV) NEUTROPHIL % (test code = NT%) 60.4 % 56.0-77.0 N IMMATURE GRANULOCYTE % (test 0.6 % 0.0-2.0 N code = IG%) LYMPHOCYTE % (test code = LY%) 21.7 % 14.0-32.0 N MONOCYTE % (test code = MO%) 8.8 % 4.8-9.0 N EOSINOPHIL % (test code = EO%) 7.3 % 0.3-3.7 H BASOPHIL % (test code = BA%) 1.2 % 0.0-2.0 N NUCLEATED RBC % (test code = 0.0 % 0-0 N NRBC%) NEUTROPHIL # (test code = NT#) 4.13 x10 3/uL 2.0-7.6 N IMMATURE GRANULOCYTE # (test 0.04 x10 3/uL 0.00-0.03 H code = IG#) LYMPHOCYTE # (test code = LY#) 1.48 x10 3/uL 1.0-3.8 N MONOCYTE # (test code = MO#) 0.60 x10 3/uL 0.1-0.8 N EOSINOPHIL # (test code = EO#) 0.50 x10 3/uL 0.0-0.2 H BASOPHIL # (test code = BA#) 0.08 x10 3/uL 0.0-0.2 N NUCLEATED RBC # (test code = 0.00 x10 3/uL 0.0-0.1 N NRBC#) MANUAL DIFF REQUIRED (test code NO = MDIFF) CBC W/AUTO [id number] 11:36:00 Test Item Value Reference Range Interpretation Comments WHITE BLOOD CELL 6.3 x10 3/uL 4.5-11.0 N (test code = WBC) RED BLOOD CELL (test 2.88 x10 6/uL 3.54-5.02 L code = RBC) HEMOGLOBIN (test code 7.8 g/dL 11.0-15.0 L = HGB) HEMATOCRIT (test code 25.0 % 33.0-45.0 L = HCT) MEAN CELL VOLUME 86.8 fL 81.0-99.0 N (test code = MCV) MEAN CELL HGB (test 27.1 pg 27.0-33.0 N code = MCH) MEAN CELL HGB 31.2 g/dL 33.0-37.0 L CONCETRATION (test code = MCHC) RED CELL DISTRIBUTION 16.4 % 11.5-14.5 H WIDTH CV (test code = RDW) RED CELL DISTRIBUTION 51.8 fL 37.0-54.0 N WIDTH SD (test code = RDW-SD) PLATELET COUNT (test 264 x10 3/uL 150-400 N code = PLT) MEAN PLATELET VOLUME 11.5 fL 7.0-9.0 H (test code = MPV) NEUTROPHIL % (test 57.6 % 56.0-77.0 N code = NT%) LYMPHOCYTE % (test 23.1 % 14.0-32.0 N code = LY%) NEUTROPHIL # (test 3.65 x10 3/uL 2.0-7.6 N code = NT#) LYMPHOCYTE # (test 1.46 x10 3/uL 1.0-3.8 N code = LY#) MANUAL DIFF REQUIRED NO SLIDE R EVIEWED, (test code = MDIFF) CONSISTE NT WITH AUTO DIFF. IMMATURE GRANULOCYTE 1.4 % 0.0-2.0 N % (test code = IG%) MONOCYTE % (test code 10.0 % 4.8-9.0 H = MO%) EOSINOPHIL % (test 7.1 % 0.3-3.7 H code = EO%) BASOPHIL % (test code 0.8 % 0.0-2.0 N = BA%) NUCLEATED RBC % (test 0.0 % 0-0 N code = NRBC%) IMMATURE GRANULOCYTE 0.09 x10 3/uL 0.00-0.03 H # (test code = IG#) MONOCYTE # (test code 0.63 x10 3/uL 0.1-0.8 N = MO#) EOSINOPHIL # (test 0.45 x10 3/uL 0.0-0.2 H code = EO#) BASOPHIL # (test code 0.05 x10 3/uL 0.0-0.2 N = BA#) NUCLEATED RBC # (test 0.00 x10 3/uL 0.0-0.1 N code = NRBC#) COMPREHENSIVE METABOLIC [id number] 07:41:00 Test Item Value Reference Range Interpretation Comments SODIUM (test code = 139 mEq/L 134-147 N NA) POTASSIUM (test code 4.2 mEq/L 3.4-5.0 N = K) CHLORIDE (test code 109 mEq/L 100-108 H = CL) CARBON DIOXIDE (test 23 mEq/l 21-33 N code = CO2) ANION GAP (test code 11 0-20 N = GAP) GLUCOSE (test code = 88 mg/dL 77-141 N NOTE: N EW NORMAL RANGE GLU) BLOOD UREA NITROGEN 20 mg/dL 7-25 N NOTE: NE W NORMAL RANGE (test code = BUN) GLOMERULAR 32.3 80-90 L The Glomerular FILTRATION RATE Filtration R ate is a (test code = GFR) calculated parameterbased on serum Creatinin e, patient age and sex. GFR valuesless than 60 mL/min/1.73 squ are meters are preston cative ofChronic Kidne y Disease. Values less than 15 mL/min/1.73squa re meters indicate Kidney failure. The calculation for GFR is based on the CK D-EPI (2020) calculat ion. This formulais race indifferent and is the recommended for [place] for GFRby the [facility] Kidney Foundati on for Adults.The GFR will not calculate i f the sex is unknown or if thepatient's ag e is <18 years. CREATININE (test 1.7 mg/dL 0.6-1.3 H code = CREAT) TOTAL PROTEIN (test 6.6 g/dL 6.4-8.2 code = PROT) ALBUMIN (test code = 2.50 g/dL 3.4-5.0 L ALB) CALCIUM (test code = 8.1 mg/dL 8.0-10.5 N CA) BILIRUBIN TOTAL 0.20 mg/dL 0.0-1.0 (test code = BILT) SGOT/AST (test code 14 IUnit/L 8-34 N NOTE: NE W NORMAL RANGE = AST) SGPT/ALT (test code < 7 IUnit/L 10-49 L NOTE: NE W NORMAL RANGE = ALT) ALKALINE PHOSPHATASE 57 IUnit/L 20-125 N TOTAL (test code = ALKP) [id number] 07:41:00 Test Item Value Reference Range Interpretation Comments PHOSPHOROUS (test code = PHOS) 4.1 MG/DL 2.5-4.9 N [id number] 07:41:00 Test Item Value Reference Range Interpretation Comments MAGNESIUM (test code = 2.11 mg/dL 1.6-2.6 N NOTE: NEW NORMAL MAG) RANGE CALCIUM [id number] 07:41:00 Test Item Value Reference Range Interpretation Comments CALCIUM IONIZED (test code = AUBREY) 1.06 MMOL/L 1.09-1.30 L COMPREHENSIVE METABOLIC [id number] 05:41:00 Test Item Value Reference Range Interpretation Comments SODIUM (test code = 137 mEq/L 134-147 N NA) POTASSIUM (test code 3.8 mEq/L 3.4-5.0 N = K) CHLORIDE (test code 104 mEq/L 100-108 N = CL) CARBON DIOXIDE (test 22 mEq/l 21-33 N code = CO2) ANION GAP (test code 15 0-20 N = GAP) GLUCOSE (test code = 96 mg/dL 77-141 N NOTE: N EW NORMAL RANGE GLU) BLOOD UREA NITROGEN 30 mg/dL 7-25 H NOTE: NE W NORMAL RANGE (test code = BUN) GLOMERULAR 26.5 80-90 L The Glomerular FILTRATION RATE Filtration R ate is a (test code = GFR) calculated parameterbased on serum Creatinine, pat ient age and sex. GFR va luesless than 60 mL/min/ 1.73 square meters a re indicative ofCh ronic Kidney Disease. Values less than 15 mL/min/1.73squa re meters indicate Kidney failure. The calculation for GFR is based on the CK D-EPI (2020) calculat ion. This formulais race indifferent and is the recommended for [place]qu[place] for GFRby the Natio nal Kidney Foundati on for Adults.The GFR will not calculate if th e sex is unknown or if thepatient's ag e is <18 years. CREATININE (test 2.0 mg/dL 0.6-1.3 H code = CREAT) TOTAL PROTEIN (test 7.8 g/dL 6.4-8.2 N code = PROT) ALBUMIN (test code = 3.00 g/dL 3.4-5.0 L ALB) CALCIUM (test code = 8.6 mg/dL 8.0-10.5 N CA) BILIRUBIN TOTAL 0.40 mg/dL 0.0-1.0 N (test code = BILT) SGOT/AST (test code 15 IUnit/L 8-34 N NOTE: NE W NORMAL RANGE = AST) SGPT/ALT (test code 8 IUnit/L 10-49 L NOTE: NE W NORMAL RANGE = ALT) ALKALINE PHOSPHATASE 65 IUnit/L 20-125 N TOTAL (test code = ALKP) [id number] 05:41:00 Test Item Value Reference Range Interpretation Comments PHOSPHOROUS (test code = PHOS) 5.1 MG/DL 2.5-4.9 H [id number] 05:41:00 Test Item Value Reference Range Interpretation Comments MAGNESIUM (test code = 2.15 mg/dL 1.6-2.6 N NOTE: NEW NORMAL MAG) RANGE CALCIUM [id number] 05:41:00 Test Item Value Reference Range Interpretation Comments CALCIUM IONIZED (test code = AUBREY) 1.08 MMOL/L 1.09-1.30 L CBC W/AUTO [id number] 05:15:00 Test Item Value Reference Range Interpretation Comments WHITE BLOOD CELL (test code = 8.2 x10 3/uL 4.5-11.0 N WBC) RED BLOOD CELL (test code = 3.35 x10 6/uL 3.54-5.02 L RBC) HEMOGLOBIN (test code = HGB) 9.0 g/dL 11.0-15.0 L HEMATOCRIT (test code = HCT) 29.3 % 33.0-45.0 L MEAN CELL VOLUME (test code = 87.5 fL 81.0-99.0 N MCV) MEAN CELL HGB (test code = MCH) 26.9 pg 27.0-33.0 L MEAN CELL HGB CONCETRATION 30.7 g/dL 33.0-37.0 L (test code = MCHC) RED CELL DISTRIBUTION WIDTH CV 16.3 % 11.5-14.5 H (test code = RDW) PLATELET COUNT (test code = 365 x10 3/uL 150-400 N PLT) NEUTROPHIL % (test code = NT%) 58.9 % 56.0-77.0 N LYMPHOCYTE % (test code = LY%) 23.0 % 14.0-32.0 N NEUTROPHIL # (test code = NT#) 4.83 x10 3/uL 2.0-7.6 N LYMPHOCYTE # (test code = LY#) 1.89 x10 3/uL 1.0-3.8 N MANUAL DIFF REQUIRED (test code NO = MDIFF) RED CELL DISTRIBUTION WIDTH SD 52.3 fL 37.0-54.0 N (test code = RDW-SD) MEAN PLATELET VOLUME (test code 11.0 fL 7.0-9.0 H = MPV) IMMATURE GRANULOCYTE % (test 0.5 % 0.0-2.0 N code = IG%) MONOCYTE % (test code = MO%) 10.1 % 4.8-9.0 H EOSINOPHIL % (test code = EO%) 6.6 % 0.3-3.7 H BASOPHIL % (test code = BA%) 0.9 % 0.0-2.0 N NUCLEATED RBC % (test code = 0.0 % 0-0 N NRBC%) IMMATURE GRANULOCYTE # (test 0.04 x10 3/uL 0.00-0.03 H code = IG#) MONOCYTE # (test code = MO#) 0.83 x10 3/uL 0.1-0.8 H EOSINOPHIL # (test code = EO#) 0.54 x10 3/uL 0.0-0.2 H BASOPHIL # (test code = BA#) 0.07 x10 3/uL 0.0-0.2 N NUCLEATED RBC # (test code = 0.00 x10 3/uL 0.0-0.1 N NRBC#) GLUCOSE [id number] 03:39:00 Test Item Value Reference Range Interpretation Comments GLUCOSE BEDSIDE (test 90 MG/DL 70-110 N Perfor med by certified code = GLUBED) 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 Testing can only be perform ed if patient sample values arewithin the f ollowing ranges: Hematoc rit 29-56%, PlateletCount > 92,000/uL. Patient values outside of these rangeswil l be rejected by our instrumentaton. - CT HEAD/BRAIN W/O [id number] 00:00:00 [facility] GHANSHYAM RODRIGUEZName: JV BUSTOS : 1955 Sex: F Name: JV WEIR [facility] Ghanshyam Rodriguez : 1955 Age/S: 67 / F [address] [place] [address] Blvd Unit #: [id number] Loc: [place] [address] Phys: Aneesh Welch DO Acct: [id number] Dis Date: Status: ADM IN PHONE #: [phone] Exam Date: 11/04/2022 0302 FAX #: [phone] Reason: TBI EXAMS: CPT CODE: [id number] CT HEAD/BRAIN W/O CONT [id number] PROCEDURE INFORMATION: Exam: CT Head Without Contrast Exam date and time: 11/04/2022 3:08 AM Age: 67 years old Clinical indication: Condition or disease; Other: Tbi TECHNIQUE: Imaging protocol: Computed tomography of the head without contrast. Radiation optimization: All CT scans at this facility use at least one of these dose optimization techniques: automated exposure control; mA and/or kV adjustment per patient size (includes targeted exams wheredose is matched to clinical indication); or iterative reconstruction. REPORTING DATA: Count of CT and Cardiac NM exams in prior 12 months: This patient has received 2 known CTs and 0 known cardiac nuclear medicine studies in the 12 months prior to the current study. COMPARISON: CT (FACIAL BONE, iDose ( 1), NOSE, HEAD/CSP/CAP W/O W/ FB /TRAUMA) 11/03/2022 8:22 PM FINDINGS: Brain: No evidence of acute large territorial infarct. No acute intracranial hemorrhage. No midline shift. Basal cisterns are patent. Cerebral ventricles: No ventriculomegaly. Pituitary gland and sella: Partially empty sella. Paranasal sinuses: Mucosal thickening in the inferior left maxillary sinus. Mastoid air cells: Visualized mastoid air cells are well aerated. Bones/joints: Unremarkable. No acute fracture. Soft tissues: Unremarkable. IMPRESSION: No acute intracranial pathology. at 0653 Reported and signed by: Surya Venegas M.D. CC: Alex Tiwari MD; Aneesh Welch DO Technologist:RT Elliot(R) CTDI: DLP: Trnscb Date/Time: 11/04/2022 (0653) [id number] Print D/T: S: 11/04/2022 (0641) PAGE 1 Signed Report
[2023-01-19] MEDS ORDERED: ACETAMINOPHEN 500 MG TAB ONE (17:56)
[2023-01-19] MEDS ORDERED: IBUPROFEN 400 MG TAB ONE (17:57)
[2023-01-19 18:13] LABS: Absolute Lymphocytes (CBC) 1.1 K/uL (0.7-4.9); Hematocrit 33.1 % (36.0-45.0); Lymphocytes % 11.8 % (15.3-44.8); MCV 89.1 fL (80-100); MPV 7.3 fL (7.6-11.3); Platelets 376 thou/uL (152-406); RBC Red Blood Cell Count 3.72 M/uL (3.86-4.86)
[2023-01-19 18:49] LABS: Potassium 2.4 mEq/L (3.5-5.1)
--- NOTE | 2023-01-19 19:02 | ER ---
Nurse's Notes [facility] [place] Name: Jv Bryant Age: 67 yrs Sex: Female : 1955 Arrival Date: 01/19/2023 Time: 17:11 Bed 2 Private MD: Diagnosis: Lymphedema, not elsewhere classified;Hypokalemia Presentation: 01/19 17:13 Chief complaint: Patient states: Leg pains with edema. No fever. Bilateral wounds to ll1 buttocks area with drainage. Coronavirus screen: Client denies travel out of the [place] in the last 14 days. At this time, the client does not indicate any symptoms associated with coronavirus-19. Ebola Screen: Patient denies travel to an Ebola-affected area in the 21 days before illness onset. Initial Sepsis Screen: Does the patient meet any 2 criteria? No. Patient's initial sepsis screen is negative. Does the patient have a suspected source of infection? Yes: Skin breakdown/wound. Risk Assessment: Do you want to hurt yourself or someone else? Patient reports no desire to harm self or others. Onset of symptoms was January 17, 2023. 17:13 Method Of Arrival: EMS ll1 17:13 Acuity: KSYLER 3 ll1 17:15 Chief complaint: EMS states: VSS. ll1 Historical: - Allergies: 17:13 aloe vera; ll1 17:13 Augmentin; ll1 17:13 Betadine; ll1 17:13 Dilaudid; ll1 17:13 Fentanyl; ll1 17:13 FLU VACCINE; ll1 17:13 Iodine; ll1 17:13 Macrolide Antibiotics; ll1 17:13 meropenem; ll1 17:13 pneumonia vaccine; ll1 17:13 Rocephin; ll1 17:13 Stelazine; ll1 17:13 Sulfa (Sulfonamide Antibiotics); ll1 17:13 Vancomycin; ll1 - PMHx: 17:13 ADD/ADHD; Arthritis; Chronic pain; COPD; Fibromyalgia; frequent UTI'S; heart disease- ll1 unspecified; Hyperlipidemia; Hypertension; insomnia; lymphedema; PERIPHERAL NEUROPATHY; unspecified kidney failure; - Immunization history:: Adult Immunizations up to date. - Social history:: Smoking status: Patient/guardian denies using tobacco. Screenin:33 [facility] ED Fall Risk Assessment (Adult) History of falling in the last 3 months, ph including since admission Yes- single mechanical fall (1 pt) Confusion or Disorientation No (0 pts) Intoxicated or Sedated No (0 pts) Impaired Gait Yes (1 pt) Mobility Assist Device Used Yes (1 pt) Altered Elimination Yes (1 pt) Score/Fall Risk Level 3 or more points = High Risk Oriented to surroundings, Maintained a safe environment, Provided non-skid footwear, Hourly rounding (assess needs \T\ fall precautionary measures) done. Abuse screen: Denies threats or abuse. Denies injuries from another. Nutritional screening: No deficits noted. Tuberculosis screening: No symptoms or risk factors identified. Assessment: 17:15 General: Appears in no apparent distress. uncomfortable, Behavior is cooperative, hb crying, restless. Pain: Pain currently is 10 out of 10 on a pain scale. Neuro: Level of Consciousness is awake, alert, obeys commands, Oriented to person, place, time, situation. Cardiovascular: Patient's skin is warm and dry. Respiratory: Respiratory effort is even, unlabored, Respiratory pattern is regular, symmetrical. GI: No signs and/or symptoms were reported involving the gastrointestinal system. : No signs and/or symptoms were reported regarding the genitourinary system. EENT: No signs and/or symptoms were reported regarding the EENT system. Derm: Skin is pink, warm \T\ dry. redness noted to bilateral legs. Musculoskeletal: Reports pain in bilateral lower legs. 18:15 Reassessment: Patient appears in no apparent distress at this time. No changes from hb previously documented assessment. Patient and/or family updated on plan of care and expected duration. Pain level reassessed. 19:27 Reassessment: Assumed care of patient at this time. Pt resting on stretcher. Dr. Pelayo cm10 at bedside speaking with patient. Pt's mariee bag emptied. Family at bedsdie. Pt and patient's family updated on plan of care. Care continues. Vital Signs: 17:13 BP 121 / 103; Pulse 50; Resp 18; Temp 98.2(O); Pulse Ox 99% on R/A; Weight 134 kg (M); hb Height 5 ft. 4 in. ; Pain 10/10; 19:32 BP 93 / 74; Pulse 53; Resp 18; Pulse Ox 100% ; cm10 17:13 Body Mass Index 50.71 (134.00 kg, 162.56 cm) hb 17:13 Pain Scale: Adult hb ED Course: 17:13 Patient arrived in ED. ll1 17:13 Arm band placed on Patient placed in an exam room, on a stretcher. ll1 17:15 Triage completed. ll1 17:16 Sanjeev Pelayo MD is Attending Physician. ec2 17:30 Provided Education on: tests, result maria esther. hb 17:33 Patient has correct armband on for positive identification. Bed in low position. Call ph light in reach. Side rails up X 1. Pulse ox on. NIBP on. 18:07 Inserted saline lock: 22 gauge in left antecubital area, using aseptic technique. Blood ss collected. 18:49 Notified ED physician of a critical lab result(s). K 2.4. ll1 19:15 No provider procedures requiring assistance completed. hb 19:17 Helena Lamb MD is Hospitalizing Provider. ec2 19:50 Evan Mercado, ALO is Primary Nurse. bp 23:26 Patient admitted, IV remains in place. cm10 Administered Medications: 17:58 Drug: Acetaminophen PO 1000 mg PO once Route: PO; hb 19:32 Follow up: Response: No adverse reaction cm10 17:58 Drug: Ibuprofen PO 800 mg PO once Route: PO; hb 19:32 Follow up: Response: No adverse reaction cm10 19:32 Drug: Potassium Chloride PO 40 mEq PO once Route: PO; cm10 23:28 Follow up: Response: No adverse reaction cm10 19:32 Drug: Magnesium Oxide PO 400 mg PO once; administer with meals Route: PO; cm10 23:28 Follow up: Response: No adverse reaction cm10 19:32 Drug: Doxycycline PO 100 mg PO once Route: PO; cm10 23:27 Follow up: Response: No adverse reaction cm10 Medication: 18:15 VIS not applicable for this client. hb Output: 19:25 Urine: 1500ml (Mariee); Total: 1500ml. cm10 Outcome: 19:02 Discharge ordered by . ec2 19:17 Decision to Hospitalize by Provider. ec2 23:25 Admitted to Med/surg accompanied by tech, via stretcher, room 406, cm10 23:25 Condition: good 23:25 Instructed on the need for admit, 23:48 Patient left the ED. bp Signatures: Carly Stratton, RN RN Angeles Ramirez RN RN ph Carole Daniels RN RN Evan Mercado RN RN bp Lynette Dumont RN RN 1 Dilma Tristan RN RN cm10 Sanjeev Pelayo MD MD ec2 Corrections: (The following items were deleted from the chart) 17:16 17:13 Chief complaint: Patient states: Leg pains with edema. No fever ll1 ll1 17:23 17:13 61.23 kg; Pain 10/10, Adult; ll1 hb 19:33 19:32 BP 93 / 74; Pulse 53bpm; Resp 28bpm; Pulse Ox 100%; cm10 cm10
--- NOTE | 2023-01-19 19:02 | EDPHYS ---
Physician Documentation [facility] Name: Jv Bryant Age: 67 yrs Sex: Female : 1955 Arrival Date: 01/19/2023 Time: 17:11 Bed 2 Private MD: ED Physician Sanjeev Pelayo HPI: 01/19 17:32 This 67 yrs old Female presents to ER via EMS with complaints of Leg Pain. ec2 17:32 Patient arrives today due to concern for bilateral leg pain. Patient has at home ec2 nursing, history of fibromyalgia is here for bilateral leg pain. States that her home nurse is concerned about infection as she has redness in her bilateral legs to her lower extremity lymphedema. No fevers or chills, no nausea or vomiting.. Historical: - Allergies: 17:13 aloe vera; ll1 17:13 Augmentin; ll1 17:13 Betadine; ll1 17:13 Dilaudid; ll1 17:13 Fentanyl; ll1 17:13 FLU VACCINE; ll1 17:13 Iodine; ll1 17:13 Macrolide Antibiotics; ll1 17:13 meropenem; ll1 17:13 pneumonia vaccine; ll1 17:13 Rocephin; ll1 17:13 Stelazine; ll1 17:13 Sulfa (Sulfonamide Antibiotics); ll1 17:13 Vancomycin; ll1 - PMHx: 17:13 ADD/ADHD; Arthritis; Chronic pain; COPD; Fibromyalgia; frequent UTI'S; heart disease- ll1 unspecified; Hyperlipidemia; Hypertension; insomnia; lymphedema; PERIPHERAL NEUROPATHY; unspecified kidney failure; - Immunization history:: Adult Immunizations up to date. - Social history:: Smoking status: Patient/guardian denies using tobacco. ROS: 17:32 Constitutional: as per hpi ec2 Exam: 17:32 Constitutional: GEN: NAD Head: atraumatic Eyes: EOMI Ears: External ears are ec2 normal. CV: regular rate LUNGS: no respiratory distress ABD: non-distended SKIN: no bilateral lower extremity lymphedema with chronic skin changes noted MSK: no evidence of trauma NEURO: moves all extremities equally Vital Signs: 17:13 BP 121 / 103; Pulse 50; Resp 18; Temp 98.2(O); Pulse Ox 99% on R/A; Weight 134 kg (M); hb Height 5 ft. 4 in. ; Pain 10/10; 19:32 BP 93 / 74; Pulse 53; Resp 18; Pulse Ox 100% ; cm10 17:13 Body Mass Index 50.71 (134.00 kg, 162.56 cm) hb 17:13 Pain Scale: Adult hb MDM: 17:16 Patient medically screened. ec2 17:32 Data reviewed: vital signs. ED course: Patient arrives today due to concern for ec2 bilateral lower extremity pain. Examination remarkable for bilateral lower extremity lymphedema with general redness. Otherwise patient with reassuring vital signs. Will obtain basic lab work to assess for organ dysfunction. Currently considering lymphedema with dependent rubor, cellulitis, low suspicion for bony infection.. 19:00 ED course: Metabolic profile pertinent for hypokalemia with potassium of 2.4. We will ec2 give the patient magnesium as well as potassium supplementation. I instructed the patient on potassium supplementation and potassium rich foods.. 19:14 ED course: Patient has some marked return to home, ultimately patient with significant ec2 lymphedema in the lower extremities and uncomfortable return to home due to her volume. We will give her Lasix and admit to the hospital for continued management of her hypokalemia and her volume overload. Additionally patient with some erythema in the bilateral lower extremities, ultimately I feel this is dependent rubor however will cover with antibiotics for possible cellulitis. I discussed case with hospitalist, pending admission.. 01/19 17:32 Order name: CBC with Diff; Complete Time: 18:26 ec2 01/19 17:32 Order name: BMP; Complete Time: 18:59 ec2 01/19 20:52 Order name: CBC with Automated Diff EDMS 01/19 20:52 Order name: CBC with Automated Diff EDMS 01/19 20:52 Order name: Comprehensive Metabolic Panel EDMS 01/19 20:52 Order name: Comprehensive Metabolic Panel EDMS 01/19 20:55 Order name: NT PRO-BNP EDGA 01/19 20:57 Order name: Iron EDMS 01/19 20:57 Order name: Magnesium EDMS 01/19 20:57 Order name: Protime (+INR) EDGA 01/19 20:57 Order name: PTT, Activated Partial Thromb EDMS 01/19 20:54 Order name: Case Management Consult EDGA 01/19 20:54 Order name: Physical Therapy Consult EDMS Administered Medications: 17:58 Drug: Acetaminophen PO 1000 mg PO once Route: PO; hb 19:32 Follow up: Response: No adverse reaction cm10 17:58 Drug: Ibuprofen PO 800 mg PO once Route: PO; hb 19:32 Follow up: Response: No adverse reaction cm10 19:32 Drug: Potassium Chloride PO 40 mEq PO once Route: PO; cm10 23:28 Follow up: Response: No adverse reaction cm10 19:32 Drug: Magnesium Oxide PO 400 mg PO once; administer with meals Route: PO; cm10 23:28 Follow up: Response: No adverse reaction cm10 19:32 Drug: Doxycycline PO 100 mg PO once Route: PO; cm10 23:27 Follow up: Response: No adverse reaction cm10 Disposition Summary: 01/19/23 19:17 Hospitalization Ordered Notes: Hospitalization Status: Inpatient Admission ec2 Provider: Helena Lamb ec2 Condition: Stable(01/19/23 19:17) ec2 Problem: an acute exacerbation ec2 Symptoms: are unchanged ec2 Bed/Room Type: Standard ec2 Location: Telemetry/MedSurg (Inpatient)(01/19/23 23:08) Room Assignment: [facility](01/19/23 23:08) cg Diagnosis - Lymphedema, not elsewhere classified(01/19/23 19:17) ec2 - Hypokalemia(01/19/23 19:20) ec2 Forms: - Medication Reconciliation Form ec2 - SBAR form ec2 - Leadership Thank You Letter ec2 Signatures: Dispatcher [employer] Joleen Hooks RN RN Carole Daniels RN RN Lynette Dumont RN RN ll1 Dilma Tristan RN RN cm10 Sanjeev Pelayo MD MD ec2 Corrections: (The following items were deleted from the chart) 19:16 19:02 Home ec2 ec2 19:16 19:02 Stable ec2 ec2 19:17 19:02 Lymphedema, not elsewhere classified ec2 ec2 19:17 19:02 Hypokalemia ec2 ec2 19:21 19:14 ED course: Patient has some marked return to home, ultimately patient with ec2 significant lymphedema in the lower extremities and uncomfortable return to home due to her volume. We will give her Lasix and admit to the hospital for continued management of her hypokalemia and her volume overload.. ec2 20:00 19:17 Telemetry/MedSurg (Inpatient) ec2 cg 20:00 19:17 ec2 cg : 20:00 [facility] ER HOLD cg cg : 20:00 ERHOLD- cg cg
[2023-01-19] MEDS ORDERED: DOXYCYCLINE 100 MG CAP PO ONE (19:26)
[2023-01-19] MEDS ORDERED: POTASSIUM CL SA 10 MEQ TAB PO ONE (19:26)
[2023-01-19] MEDS ORDERED: MAGNESIUM OXIDE 400 MG TAB ONE (19:26)
[2023-01-19] MEDS ORDERED: ACETAMINOPHEN 500 MG TAB PO PRN (20:46)
[2023-01-19] MEDS ORDERED: ONDANSETRON 4 MG/2 ML VIAL IV PRN (20:46)
[2023-01-19] MEDS ORDERED: ALBUMIN HUMAN 25% 50 ML IV ONE ×2 (20:50→23:00)
[2023-01-19] MEDS ORDERED: POTASSIUM 25 MEQ EFFERV TAB PO ONE (20:52)
[2023-01-19] MEDS: JUVEN PACKET PO SCH (21:00)
[2023-01-19] MEDS: ENSURE MAX PROTEIN 330 ML LIQUID PO SCH (21:00)
--- NOTE | 2023-01-19 21:01 | P.HP ---
Certification for Inpatient Patient admitted to: Inpatient With expected LOS: >2 Midnights Patient will require the following post-hospital care: Home Health Services Practitioner: I am a practitioner with admitting privileges, knowledge of patient current condition, hospital course, and medical plan of care. Services: Services provided to patient in accordance with Admission requirements found in Title 42 Section 412.3 of the Code of Federal Regulations Patient History Date of Service: 01/19/23 Reason for admission: Anasarca; extreme lower extremity edema; severe hypokalemia History of Present Illness: Patient is a 67-year-old female with a longstanding history of lymphedema who has had significant health issues over the last few years which is mainly related to her lymphedema. She has had a lot of medical issues over this last few months which are related to her having a significant fall. She suffered a nasal fracture and intracranial bleed. She was transferred to [facility] and she was in the intensive care unit for about a week. She was discharged to [facility] for physical therapy. She did well and recovered and was sent home about 10 days ago. She has been getting home health and they have been trying to get her a hospital bed. She uses a walker to get around and she has been doing fairly well with that as well. However, she did develop what she thought was a urine infection was given ciprofloxacin. She says she finished it a couple of days ago but she noticed that she was not really as strong as she had been and was feeling really weak after using the ciprofloxacin. She has noticed the swelling in her legs going up quite a bit. She has significant edema compared to her baseline. She said the swelling had gone down at the alf but since she has been at home she has noted significant edema. She came to the emergency room for evaluation. Her skin is significantly stretched to the point that it is erythematous and there is serosanguineous drainage from the legs. We will go ahead and start her on a Lasix drip. We will give her medication for her potassium being so low. Potassium is 2.4. We will also start on Aldactone. We will get social work evaluation as well. Patient will be admitted to the hospital for further evaluation. Allergies amoxicillin [From Augmentin] Allergy (Severe, Verified 09/16/19 23:49) diarrhea, nausea, vomiting ceftriaxone [From Rocephin] Allergy (Severe, Verified 09/16/19 23:49) Itching/Hives/Rash fentanyl Allergy (Severe, Verified 09/16/19 23:49) Itching/Hives/Rash iodine Allergy (Severe, Verified 09/16/19 23:49) Unknown lincomycin [From Lincocin] Allergy (Severe, Verified 09/16/19 23:49) rashes,headaches pneumococcal vaccine [From Pneumovax 23] Allergy (Severe, Verified 09/16/19 23:49) sick more than a week sulfamethoxazole [From Bactrim] Allergy (Severe, Verified 09/16/19 23:49) Anaphylaxis trifluoperazine [From Stelazine] Allergy (Severe, Verified 09/16/19 23:49) itching and rashes vancomycin Allergy (Severe, Verified 09/16/19 23:49) renal failure meropenem [From Merrem] Allergy (Mild, Verified 10/11/22 18:54) Shortness of breath soap [From Betadine] Allergy (Mild, Verified 09/16/19 23:49) Hives/Rash Sulfa (Sulfonamide Antibiotics) Allergy (Mild, Verified 09/16/19 23:49) Anaphylaxis aloe vera Allergy (Verified 09/16/19 23:49) Itching celery Allergy (Verified 09/16/19 23:49) Nausea/Vomiting Macrolide Antibiotics Allergy (Verified 09/16/19 23:49) Itching/Hives/Rash FLU VACCINE Allergy (Severe, Uncoded 09/16/19 23:49) sick for more than a week aloe vera Allergy (Uncoded 09/16/19 23:49) Unknown hall peppers Allergy (Uncoded 09/16/19 23:49) Nausea/Vomiting celery Allergy (Uncoded 09/16/19 23:49) Unknown FLU VAC Allergy (Uncoded 09/16/19 23:49) Unknown peppers Allergy (Uncoded 09/16/19 23:49) Unknown Home Medications: Benzonatate [Tessalon Perle*] 100 mg PO TID PRN 06/30/21 Lovastatin 20 mg PO BEDTIME 06/30/21 Metoprolol Tartrate 25 mg PO BID 06/30/21 oxyBUTYnin chloride [Oxybutynin Chloride] 5 mg PO BID 06/30/21 Benzonatate [Tessalon Perle*] 100 mg PO TID PRN #30 cap 11/02/22 Docusate [Colace Cap*] 100 mg PO DAILY PRN #30 cap 11/02/22 Ensure Max Protein 330 ml PO BID #60 can 11/02/22 Furosemide [Lasix*] 20 mg PO BID #60 tab 11/02/22 Hydrocodone 7.5/APAP 325 [[place] 7.5/325 mg] 1 tab PO Q4H PRN #20 tab 11/02/22 Iron Polysaccharide Complex [Polysaccharide Iron] 150 mg PO DAILY #30 cap 11/02/22 Potassium Chloride 20 meq PO DAILY #30 tab 11/02/22 - Past Medical/Surgical History Diabetic: No -: Lymphedema - bilateral leg -: Morbid obesity with Hx of Lap. Band -: Peripheral neuropathy -: Osteoarthritis -: mild COPD -: mild eczema -: Depression -: Sleep apnea -: CHF -: CRE -: hypertension -: frequent UTIs -: -: Lap band 2008 -: Tonsillectomy and adenoidectomy -: Intracranial hemorrhage Psychosocial/ Personal History: Patient is and lives by herself. She has home health. - Family History Father Medical History: Heart disease Mother Medical History: Hypertension, Stroke Notes: erin deirdre syndrome - Social History Smoking Status: Former smoker Alcohol use: No CD- Drugs: No Caffeine use: Yes Review of Systems 10-point ROS is otherwise unremarkable Physical Examination - Vital Signs Temperature: 98 F Blood Pressure: 100/60 Pulse: 80 Respirations: 18 Pulse Ox (%): 96 - Physical Exam General: Alert, In no apparent distress, Oriented x3 HEENT: Atraumatic, PERRLA, Mucous membr. moist/pink, EOMI, Sclerae nonicteric Neck: Supple, 2+ carotid pulse no bruit, No LAD, Without JVD or thyroid abnormality Respiratory: Diminished, Crackles/rales Cardiovascular: Regular rate/rhythm, Normal S1 S2, Systolic murmur Gastrointestinal: Normal bowel sounds, Soft and benign, Non-distended, No tenderness Musculoskeletal: No clubbing, No tenderness, Swelling Integumentary: No rashes Neurological: Sensation intact, Cranial nerves 3-12 intact, Normal affect, Abnormal gait, Abnormal speech, Abnormal strength Lymphatics: No axilla or inguinal lymphadenopathy - Studies Laboratory Data (last 24 hrs) 01/19/23 01/19/23 18:05 18:05 WBC 9.30 Hgb 11.2 L Hct 33.1 L Plt Count 376 Sodium 137 Potassium 2.4 L* BUN 11 Creatinine 1.23 H Glucose 117 H Assessment & Plan - Problems (Diagnosis) (1) Anasarca Current Visit: Yes Status: Acute (2) Lower extremity edema Current Visit: Yes Status: Acute (3) Erythema of lower extremity Current Visit: Yes Status: Acute (4) Iron deficiency anemia Current Visit: Yes Status: Acute (5) COPD (chronic obstructive pulmonary disease) Current Visit: No Status: Acute Qualifiers: (6) Hypokalemia Current Visit: No Status: Acute (7) Lymphedema of both lower extremities Onset Date: 12/12/16 Current Visit: No Status: Chronic (8) Morbid obesity Current Visit: No Status: Chronic - Plan Plan: 1. Patient with anasarca with significant lower extremity edema with significant erythema bilateral lower extremities related to the edema; patient with serosanguineous drainage. No purulent drainage. Legs are not significantly warm. She does need to be diuresed as she is having a hard time ambulating with her legs being so swollen. We will start her on a Lasix drip. We will go ahead and monitor her weight daily and strict I's and O's. She is also working on getting a hospital bed through home health which will get case management to assist us with trying to make sure that is arranged. We will go ahead and give her potassium supplementation. Patient be admitted to the hospital for further evaluation. 2. Debility which has improved after leaving country [facility]. Patient was [facility] for over 30 days. Her strength has improved and will continue encourage her her to get out of bed and ambulate. We will also get physical therapy evaluation while she is in the hospital here 3. Case management referral for hospital bed placement 4. GI DVT prophylax Discharge Plan: Home Plan to discharge in: Greater than 2 days - Advance Directives Does patient have a Living Will: Yes Does patient have a Durable POA for Healthcare: No - Code Status/Comfort Care Code Status Assessed: Yes Code Status: Full Code Critical Care: No Time Spent Managing PTS Care (In Minutes): 45
[2023-01-19 21:49] VITALS: BMI 50.7
[2023-01-19] MEDS ORDERED: POTASSIUM 25 MEQ EFFERV TAB ONE (23:00)
[2023-01-20] MEDS: HYDROCODONE/APAP 10/325 TAB PO PRN ×3 (00:38→22:34)
[2023-01-20] MEDS: dexAMETHasone 4 MG/ML VIAL IV SCH ×3 (00:39→17:21)
[2023-01-20 04:20] LABS: Absolute Lymphocytes (CBC) 0.6 K/uL (0.7-4.9); Lymphocytes % 6.6 % (15.3-44.8); MCV 89.8 fL (80-100); MPV 7.8 fL (7.6-11.3); Platelets 303 thou/uL (152-406); RBC Red Blood Cell Count 3.11 M/uL (3.86-4.86)
[2023-01-20 04:22] LABS: Protime INR 1.1
[2023-01-20 04:30] LABS: Albumin 2.3 g/dL (3.4-5.0); Alkaline Phosphatase 53 U/L (45-117); BUN Blood Urea Nitrogen 13 mg/dL (7-18); Bicarbonate 32 mEq/L (21-32); Bilirubin Total 0.3 mg/dL (0.2-1.0); Glomerular Filtration Rate 51 ml/min (=/>90); Glucose Level 140 mg/dL (74-106); Potassium 3.3 mEq/L (3.5-5.1); Protein, Total 6.5 g/dL (6.4-8.2); Sodium Level 140 mEq/L (136-145)
[2023-01-20 04:36] LABS: ALT/SGPT < 10 U/L (13-56); AST/SGOT < 4 U/L (15-37)
[2023-01-20 04:45] LABS: Magnesium 2.2 mg/dL (1.6-2.4)
[2023-01-20 04:51] LABS: Blood Morphology Comment NOT SEEN (NOT SEEN); Platelet Estimate ADEQ
[2023-01-20] MEDS: MIDODRINE HCL 5 MG TABLET PO SCH ×3 (08:00→16:02)
[2023-01-20] MEDS: ENSURE MAX PROTEIN 330 ML LIQUID PO SCH ×2 (08:18→20:52)
[2023-01-20] MEDS: JUVEN PACKET PO SCH ×2 (08:21→20:54)
[2023-01-20] MEDS ORDERED: SOD FERRIC GLUC COMPLX/SUCROSE 125 MG in NA CHLORIDE 0.9% 100 ML IV SCH (09:00)
[2023-01-20] MEDS: ALBUMIN HUMAN 25% 12.5 GM, FUROSEMIDE 100 MG in NA CHLORIDE 0.9% 40 ML IV SCH ×2 (10:12→15:59)
[2023-01-20] MEDS: BENZONATATE 100 MG CAP PO PRN (21:52)
[2023-01-21 00:36] VITALS: O2SAT 93
[2023-01-21] MEDS: dexAMETHasone 4 MG/ML VIAL IV SCH (00:55)
[2023-01-21] MEDS: MIDODRINE HCL 5 MG TABLET PO SCH ×3 (08:00→17:00)
[2023-01-21] MEDS: ENSURE MAX PROTEIN 330 ML LIQUID PO SCH ×2 (09:00→21:00)
[2023-01-21] MEDS: JUVEN PACKET PO SCH ×2 (09:00→21:00)
[2023-01-21] MEDS: BENZONATATE 100 MG CAP PO PRN ×2 (09:10→23:57)
[2023-01-21] MEDS: ALBUMIN HUMAN 25% 12.5 GM, FUROSEMIDE 100 MG in NA CHLORIDE 0.9% 40 ML IV SCH ×2 (09:11→13:46)
[2023-01-21] MEDS: HYDROCODONE/APAP 10/325 TAB PO PRN (11:35)
[2023-01-21 12:25] LABS: Absolute Lymphocytes (CBC) 1.3 K/uL (0.7-4.9); Hematocrit 30.1 % (36.0-45.0); Lymphocytes % 11.5 % (15.3-44.8); MCV 90.2 fL (80-100); MPV 7.9 fL (7.6-11.3); Platelets 337 thou/uL (152-406); RBC Red Blood Cell Count 3.34 M/uL (3.86-4.86)
[2023-01-21 12:44] LABS: ALT/SGPT < 10 U/L (13-56); AST/SGOT 5 U/L (15-37); Albumin 2.8 g/dL (3.4-5.0); Alkaline Phosphatase 51 U/L (45-117); BUN Blood Urea Nitrogen 31 mg/dL (7-18); Bicarbonate 34 mEq/L (21-32); Bilirubin Total 0.2 mg/dL (0.2-1.0); Glomerular Filtration Rate 43 ml/min (=/>90); Glucose Level 110 mg/dL (74-106); Potassium 3.3 mEq/L (3.5-5.1); Protein, Total 7.4 g/dL (6.4-8.2); Sodium Level 139 mEq/L (136-145)
[2023-01-21] MEDS ORDERED: POTASSIUM CL SA 10 MEQ TAB PO ONE (17:00)
[2023-01-22] MEDS ORDERED: hydrOXYzine HCL 25 MG TAB PO ONE (00:06)
[2023-01-22] MEDS: HYDROCODONE/APAP 10/325 TAB PO PRN (06:20)
--- NOTE | 2023-01-22 07:57 | P.PN ---
Subjective Date of Service: 01/22/23 Chief Complaint: Anasarca; extreme lower extremity edema; severe hypokalemia Review of Systems 10-point ROS is otherwise unremarkable Physical Examination - Vital Signs Temperature: 97.5 F Blood Pressure: 112/60 Pulse: 64 Respirations: 18 Pulse Ox (%): 96 - Physical Exam General: Alert, In no apparent distress, Oriented x3, Obese HEENT: Normocephalic, PERRLA Neck: Supple, 2+ carotid pulse no bruit Respiratory: Crackles/rales Cardiovascular: Normal pulses, Regular rate/rhythm, Other (BLE), Edema Capillary refill: <2 Seconds Gastrointestinal: Normal bowel sounds, Other (Obese) Integumentary: Erythema (Bilateral lower extremity), Other Lymphatics: Other (Bilateral lower extremity lymphedema) Assessment And Plan - Plan Assessment plan Anasarca-Acute Lymphedema of both lower extremities acute Lower extremity edema- Acute Erythema of lower extremity- Acute As needed analgesics, diuretics Patient with anasarca with significant lower extremity edema with significant erythema bilateral lower extremities related to the edema; patient with serosanguineous drainage. No purulent drainage. Legs are not significantly warm. She does need to be diuresed as she is having a hard time ambulating with her legs being so swollen. We will start her on a Lasix drip. We will go ahead and monitor her weight daily and strict I's and O's. She is also working on getting a hospital bed through home health which will get case management to assist us with trying to make sure that is arranged. Acute on chronic kidney injury likely secondary to diuretics unknown baseline Trend kidney function Hypokalemia-acute Trend electrolytes replace as needed Iron deficiency anemia-Acute Trend H&H COPD (chronic obstructive pulmonary disease) chronic Resume appropriate home meds Morbid obesity-Chronic Debility which has improved after leaving [facility]. Patient was at retirement for over 30 days. Her strength has improved and will continue encourage her her to get out of bed and ambulate. We will also get physical therapy evaluation while she is in the hospital hereCase management referral for hospital bed placement, PT GI cardiac diet DVT prophylax Full code Discharge Plan: Home Plan to discharge in: 48 Hours - Code Status/Comfort Care Code Status: Full Code Physician Review: Patient Assessed, Agree with Above Assessment and Plan Critical Care: No Time Spent Managing PTS Care (In Minutes): 35
[2023-01-22] MEDS: MIDODRINE HCL 5 MG TABLET PO SCH ×2 (08:00→11:44)
[2023-01-22] MEDS: JUVEN PACKET PO SCH (08:32)
[2023-01-22] MEDS: ENSURE MAX PROTEIN 330 ML LIQUID PO SCH (08:32)
[2023-01-22] MEDS ORDERED: SPIRONOLACTONE 25 MG TABLET PO SCH (08:33)
[2023-01-22] MEDS ORDERED: POTASSIUM CL SA 10 MEQ TAB PO ONE (09:00)
[2023-01-22 12:00] LABS: Potassium 3.4 mEq/L (3.5-5.1)
[2023-01-22 12:18] VITALS: BP 110/59; TEMP 97
--- NOTE | 2023-01-22 13:04 | P.DS ---
Admission Date: 01/19/23 Discharge Date: 01/22/23 Disposition: ROUTINE DISCHARGE Discharge Condition: GOOD Reason for Admission: Anasarca; extreme lower extremity edema; severe hypokalemia Brief History of Present Illness: 67-year-old female with a longstanding history of lymphedema who has had significant health issues over the last few years which is mainly related to her lymphedema. She has had a lot of medical issues over this last few months which are related to her having a significant fall. She suffered a nasal fracture and intracranial bleed. She was transferred to [facility] and she was in the intensive care unit for about a week. She was discharged to [facility] for physical therapy. She did well and recovered and was sent home about 10 days ago. She has been getting home health and they have been trying to get her a hospital bed. She uses a walker to get around and she has been doing fairly well with that as well. However, she did develop what she thought was a urine infection was given ciprofloxacin. She says she finished it a couple of days ago but she noticed that she was not really as strong as she had been and was feeling really weak after using the ciprofloxacin. She has noticed the swelling in her legs going up quite a bit. She has significant edema compared to her baseline. She said the swelling had gone down at the correction but since she has been at home she has noted significant edema. She came to the emergency room for evaluation. Her skin is significantly stretched to the point that it is erythematous and there is serosanguineous drainage from the legs. We will give her medication for her potassium being so low. Potassium is 2.4. We will also start on Aldactone. We will get social work evaluation as well. Admitted to the hospital for further evaluation. - Physical Exam General: Alert, In no apparent distress, Oriented x3, Obese HEENT: Normocephalic, PERRLA Neck: Supple, 2+ carotid pulse no bruit Respiratory: Crackles/rales Cardiovascular: Normal pulses, Regular rate/rhythm, Other (BLE), Edema Capillary refill: <2 Seconds Gastrointestinal: Normal bowel sounds, Other (Obese) Integumentary: Erythema (Bilateral lower extremity), Other Lymphatics: Other (Bilateral lower extremity lymphedema) Hospital Course: Assessment plan Anasarca-Acute Lymphedema of both lower extremities acute Lower extremity edema- Acute Erythema of lower extremity- Acute As needed analgesics, diuretics Patient with anasarca with significant lower extremity edema with significant erythema bilateral lower extremities related to the edema; patient with serosanguineous drainage. No purulent drainage. Legs are not significantly warm. monitor her weight daily and strict I's and O's. She is also working on getting a hospital bed through home health which will get case management to assist us with trying to make sure that is arranged. Acute on chronic kidney injury likely secondary to diuretics unknown baseline Trended kidney function while in hospital stay Hypokalemia-acute Trend electrolytes replace as needed Iron deficiency anemia-Acute COPD (chronic obstructive pulmonary disease) chronic Resume appropriate home meds Morbid obesity-Chronic Discharge plan Debility which has improved after leaving country [facility]. Patient was at assisted for over 30 days. Her strength has improved and will continue encourage her her to get out of bed and ambulate. We will also get physical therapy evaluation while she is in the hospital hereCase management referral for hospital bed placement Vital Signs/Physical Exam: Temp Pulse Resp BP Pulse Ox 97.0 F 78 16 110/59 L 91 01/22/23 12:00 01/22/23 12:00 01/22/23 12:00 01/22/23 12:00 01/22/23 12:00 Laboratory Data at Discharge: WBC 11.20 thou/uL (4.3-10.9) H 01/21/23 12:05 Hgb 10.2 g/dL (12.0-15.0) L 01/21/23 12:05 Hct 30.1 % (36.0-45.0) L 01/21/23 12:05 Plt Count 337 thou/uL (152-406) 01/21/23 12:05 PT 12.1 SECONDS (9.5-12.5) 01/20/23 03:47 INR 1.10 01/20/23 03:47 APTT 31.2 SECONDS (24.3-36.9) 01/20/23 03:47 Sodium 139 mEq/L (136-145) 01/22/23 11:36 Potassium 3.4 mEq/L (3.5-5.1) L 01/22/23 11:36 BUN 41 mg/dL (7-18) H 01/22/23 11:36 Creatinine 1.15 mg/dL (0.55-1.02) H 01/22/23 11:36 Glucose 105 mg/dL (74-106) 01/22/23 11:36 Magnesium 2.2 mg/dL (1.6-2.4) 01/20/23 03:47 Total Bilirubin 0.2 mg/dL (0.2-1.0) 01/21/23 12:05 AST 5 U/L (15-37) L 01/21/23 12:05 ALT < 10 U/L (13-56) L 01/21/23 12:05 Alkaline Phosphatase 51 U/L (45-117) 01/21/23 12:05 Home Medications: Lovastatin 20 mg PO BEDTIME 06/30/21 Metoprolol Tartrate 25 mg PO BID 06/30/21 oxyBUTYnin chloride [Oxybutynin Chloride] 5 mg PO BID PRN 06/30/21 Benzonatate [Tessalon Perle*] 100 mg PO TID PRN #30 cap 11/02/22 Furosemide [Lasix*] 20 mg PO BID #60 tab 11/02/22 Potassium Chloride 20 meq PO DAILY #30 tab 11/02/22 Ensure Max Protein 330 ml PO BID #60 can 01/22/23 Kevin [Kevin*] 1 pkt PO BID #60 packet 01/22/23 Midodrine HCl [Proamatine*] 5 mg PO TIDWM #90 tab 01/22/23 New Medications: Ensure Max Protein 330 ml PO BID #60 can Kevin [Kevin*] 1 pkt PO BID #60 packet Midodrine HCl [Proamatine*] 5 mg PO TIDWM #90 tab Physician Discharge Instructions: -DC IV and DC home -Follow-up with PCP in 1 to 2 weeks -Follow-up with Lymphedema clinic 1 to 2 weeks -Please call Dr. Lamb at [phone] if any questions regarding hospital stay -Please call nursing station at [phone] if any nursing or medication questions -Return to the emergency room if symptoms worsen Diet: Low sodium Activity: Fall precautions Followup: NONE,NONE [Primary Care Provider] -
== END 2023-01-22 15:10 | disposition home health service (06) | DRG 640 ==
LOC: ER 17:11 → ERHOLD 20:46 → 4TH 23:31
PROVIDERS: ADMIT Hospitalist; ATTEND Hospitalist
DX: E87.6 Hypokalemia (principal); I50.33 Acute on chronic diastolic (congestive) heart failure; I13.0 Hypertensive heart and chronic kidney disease with heart failure and stage 1 through stage 4 chronic kidney disease, or unspecified chronic kidney disease; Z68.43 Body mass index [BMI] 50.0-59.9, adult; N17.9 Acute kidney failure, unspecified; E66.01 Morbid (severe) obesity due to excess calories; N18.30 Chronic kidney disease, stage 3 unspecified; I89.0 Lymphedema, not elsewhere classified; M79.7 Fibromyalgia; E78.5 Hyperlipidemia, unspecified; G62.9 Polyneuropathy, unspecified; D50.9 Iron deficiency anemia, unspecified; F90.9 Attention-deficit hyperactivity disorder, unspecified type; M19.90 Unspecified osteoarthritis, unspecified site; J44.9 Chronic obstructive pulmonary disease, unspecified; Z60.2 Problems related to living alone; Z88.1 Allergy status to other antibiotic agents; Z88.2 Allergy status to sulfonamides; Z88.8 Allergy status to other drugs, medicaments and biological substances; Z88.7 Allergy status to serum and vaccine; Z98.84 Bariatric surgery status; Z91.048 Other nonmedicinal substance allergy status; Z79.899 Other long term (current) drug therapy; Z87.891 Personal history of nicotine dependence
CPT/HCPCS: 36415; 80048; 80053; 83540; 83735; 83880; 85025; 85610; 85730; 97112; 97116; 97161; 97530; 99285; J1100; J2916; P9047

== ENCOUNTER 2023-06-19 15:45 | Inpatient (IN) | payer OTHER ==
[2023-06-19] MEDS ORDERED: IBUPROFEN 200 MG TAB PO ONE (16:07)
--- NOTE | 2023-06-19 16:35 | RAD REPORT ---
EXAM DESCRIPTION: RAD - Chest Single View - 06/19/2023 4:27 pm CLINICAL HISTORY: DYSPNEA COMPARISON: Chest Single View dated 10/20/2022; Chest Single View dated 10/15/2022; Chest Single View d ated 10/11/2022; Chest Single View dated 09/18/2022 FINDINGS: Lines: None. Lungs: Mild diffuse prominence of the pulmonary interstitium. Pleural: No significant pleural effusions or pneumothorax. Cardiac: Similar size and configuration Mediastinum: Within normal limits. Bones: No acute fractures. Other: None IMPRESSION: Diffuse prominence of the pulmonary interstitium could reflect mild edema. No consolidat devin airspace disease.
[2023-06-19 16:42] LABS: Absolute Basophils 0.1 K/uL (0-0.5); Absolute Lymphocytes (CBC) 0.3 K/uL (0.7-4.9); Absolute Monocytes 0.5 K/uL (0.1-1.3); Absolute Neutrophil 19.8 K/uL (1.8-8.0); Basophils % 0.4 % (0-1.3); Eosinophils % 0.1 % (0-4.4); Hematocrit 32.8 % (36.0-45.0); Hemoglobin 10.5 g/dL (12.0-15.0); Lymphocytes % 1.6 % (15.3-44.8); MCHC 31.9 g/dL (32.0-36.0); MCV 81.4 fL (80-100); MPV 8.2 fL (7.6-11.3); Monocytes % 2.5 % (3.3-12.3); Neutrophils % 95.4 % (41.7-73.7); Platelets 322 thou/uL (152-406); RBC Red Blood Cell Count 4.02 M/uL (3.86-4.86)
[2023-06-19] MEDS ORDERED: ALBUMIN HUMAN 25% 100 ML IV ONE (16:45)
[2023-06-19 16:52] LABS: Specific Gravity 1.013 (1.005-1.030); Sqamous Epithelial <5 /HPF (None Seen); Urine Bacteria <20 /HPF (<20); Urine Bilirubin NEGATIVE (Negative); Urine Blood 3+ (Negative); Urine Clarity Extremely Turbid (Clear); Urine Color Light-Orange (Yellow); Urine Crystals Unidentified Few /HPF (None Seen); Urine Culture Reflex Order REFLEXED; Urine Glucose NEGATIVE (Negative); Urine Ketones NEGATIVE (Negative); Urine Microscopic Reflex YN ORDER UMIC; Urine Mucus 1+ /HPF (None Seen); Urine Nitrite 2+ (Negative); Urine Protein 2+ (Negative); Urine RBC >50 /HPF (None Seen); Urine Urobilinogen Normal (Normal); Urine WBC >50 /HPF (<5); Urine WBC Clump Many /HPF (None Seen)
[2023-06-19 16:57] LABS: ALT/SGPT < 10 U/L (13-56); AST/SGOT 5 U/L (15-37); Albumin 2.6 g/dL (3.4-5.0); Albumin/Globulin Ratio 0.5 (1.1-1.8); Alkaline Phosphatase 63 U/L (45-117); Anion Gap 10.7 mEq/L (5.0-15.0); BUN Blood Urea Nitrogen 10 mg/dL (7-18); Bicarbonate 24 mEq/L (21-32); Bilirubin Total 0.7 mg/dL (0.2-1.0); Glomerular Filtration Rate 45 ml/min (=/>90); Glucose Level 130 mg/dL (74-106); PT Prothrombin Time 13.7 SECONDS (9.5-12.5); PTT, Activated Partial Thromb 37.2 SECONDS (24.3-36.9); Potassium 3.7 mEq/L (3.5-5.1); Protein, Total 7.6 g/dL (6.4-8.2); Protime INR 1.25; Sodium Level 137 mEq/L (136-145)
[2023-06-19 17:59] LABS: INFLUENZA A NAA NEGATIVE (NEGATIVE); RESPIRATORY SYNCYTIAL VIR NAA NEGATIVE (NEGATIVE); SARS-COV-2 RT PCR NEGATIVE (NEGATIVE)
[2023-06-19] MEDS ORDERED: CEFEPIME 2 GM VIAL ONE (18:03)
[2023-06-19] MEDS ORDERED: DOXYCYCLINE 100 MG CAP PO ONE (18:03)
[2023-06-19] MEDS ORDERED: NA CHLORIDE 0.9% 100 ML ONE (18:03)
--- NOTE | 2023-06-19 18:13 | ER ---
Nurse's Notes [facility] Name: Jv Bryant Age: 68 yrs Sex: Female : 1955 Arrival Date: 06/19/2023 Time: 15:45 Bed 4 Private MD: Diagnosis: UTI/ Urinary tract infection, site not specified;Lymphedema, not elsewhere classified;Severe sepsis with septic shock Presentation: 06/18 15:59 Chief complaint: EMS states: "toned out for fever, chills, increased weakness, and mb9 being lethargic.". Coronavirus screen: Vaccine status: Patient reports receiving the 2nd dose of the covid vaccine. Ebola Screen: No symptoms or risks identified at this time. Initial Sepsis Screen: Does the patient meet any 2 criteria? Temp <36.0*C (96.8*F)) or > 38.3*C (100.9*F). HR > 90 bpm. Does the patient have a suspected source of infection? No. Patient's initial sepsis screen is negative. Risk Assessment: Do you want to hurt yourself or someone else? Patient reports no desire to harm self or others. Onset of symptoms was June 19, 2023. 15:59 Acuity: SKYLER 2 mb9 15:59 Method Of Arrival: EMS: [facility] mb9 Historical: - Allergies: 15:58 Rocephin; mb9 15:58 pneumonia vaccine; mb9 15:58 meropenem; mb9 15:58 Macrolide Antibiotics; mb9 15:58 Iodine; mb9 15:58 FLU VACCINE; mb9 15:58 Fentanyl; mb9 15:58 Dilaudid; mb9 15:58 Betadine; mb9 15:58 Augmentin; mb9 15:58 aloe vera; mb9 15:58 Stelazine; mb9 15:58 Sulfa (Sulfonamide Antibiotics); mb9 15:58 Vancomycin; mb9 - PMHx: 15:58 unspecified kidney failure; ADD/ADHD; Arthritis; Chronic pain; COPD; Fibromyalgia; mb9 frequent UTI'S; heart disease- unspecified; Hyperlipidemia; Hypertension; insomnia; lymphedema; PERIPHERAL NEUROPATHY; - Immunization history:: Adult Immunizations up to date. - Infectious Disease History:: Denies. - Social history:: Smoking status: Patient denies any tobacco usage or history of. Screenin:01 [facility] ED Fall Risk Assessment (Adult) History of falling in the last 3 months, mb9 including since admission No falls in past 3 months (0 pts) Confusion or Disorientation No (0 pts) Intoxicated or Sedated No (0 pts) Impaired Gait No (0 pts) Mobility Assist Device Used Yes (1 pt) Altered Elimination Yes (1 pt) Score/Fall Risk Level 3 or more points = High Risk Oriented to surroundings, Maintained a safe environment, Educated pt \\T\\ family on fall prevention, incl call for assistance when getting out of bed. Abuse screen: Denies threats or abuse. Nutritional screening: No deficits noted. Tuberculosis screening: No symptoms or risk factors identified. Assessment: 17:03 General: Appears ill, Behavior is cooperative. Pain: Complains of pain in right leg and tl4 left leg. Neuro: Level of Consciousness is awake, alert, obeys commands, Oriented to person, place, time, situation, Moves all extremities. Weakness Speech is normal, Facial symmetry appears normal. Cardiovascular: Capillary refill < 3 seconds Patient's skin is warm and dry. Respiratory: Airway is patent Respiratory effort is even, unlabored, Respiratory pattern is regular, symmetrical. GI: No deficits noted. No signs and/or symptoms were reported involving the gastrointestinal system. : No deficits noted. No signs and/or symptoms were reported regarding the genitourinary system. EENT: No signs and/or symptoms were reported regarding the EENT system. Derm: No signs and/or symptoms reported regarding the dermatologic system. 17:05 Reassessment: Pt has bandages over both lower extremities. Unable to visualize. Pt c/o tl4 pain in both legs. 18:19 Reassessment: Patient and/or family updated on plan of care and expected duration. Pain tl4 level reassessed. Patient is alert, oriented x 3, equal unlabored respirations, skin warm/dry/pink. Pt resting, denies any needs at this time. 19:14 Reassessment: No changes from previously documented assessment. Patient and/or family tl4 updated on plan of care and expected duration. Pain level reassessed. Patient is alert, oriented x 3, equal unlabored respirations, skin warm/dry/pink. 21:09 Reassessment: No changes from previously documented assessment. tm6 Vital Signs: 15:59 BP 132 / 78; Pulse 108; Resp 20; Temp 101.5; Pulse Ox 95% on R/A; Weight 181.44 kg; mb9 Height 5 ft. 8 in. ; 16:19 BP 89 / 51; mb9 16:30 BP 111 / 42; Pulse 97; Resp 21; Temp 99.9(O); Pulse Ox 95% ; Pain 8/10; tl4 17:00 BP 113 / 57; Pulse 96; Resp 19; Pulse Ox 93% on R/A; tl4 17:30 BP 110 / 43; Pulse 97; Resp 20; Pulse Ox 95% on 2 lpm NC; tl4 18:00 BP 128 / 50; Pulse 91; Resp 16; Temp 98.7(O); Pulse Ox 96% on 2 lpm NC; tl4 19:00 BP 122 / 54; Pulse 82; Resp 20; Pulse Ox 95% on 2 lpm NC; tl4 21:08 BP 118 / 59; Pulse 59; Resp 19; Temp 98.7(TE); Pulse Ox 98% on 2 lpm NC; tm6 15:59 Body Mass Index 60.82 (181.44 kg, 172.72 cm) mb9 16:30 Pain Scale: Adult tl4 ED Course: 15:51 Patient arrived in ED. sb4 15:52 Yolanda Boogie PA-C is PHCP. sb4 15:52 Pascual Wray MD is Attending Physician. sb4 15:58 Arm band placed on. mb9 16:00 Triage completed. mb9 16:01 Placed in gown. Bed in low position. Call light in reach. Side rails up X 1. Provided mb9 Education on: press call light if needing anything. Client placed on continuous cardiac and pulse oximetry monitoring. NIBP monitoring applied. ultrasound technol on. Door closed. Noise minimized. Warm blanket given. 16:15 EKG done, by ED staff. [email or web address] 16:29 Chest Single View XRAY In Process Unspecified. EDMS 16:30 Initial lab(s) drawn, by me, sent to lab. First set of blood cultures drawn by me, tl4 Second set of blood cultures drawn by me, Urine collected: Pedroza catheter specimen, cloudy, COVID swab sent to lab. Flu and/or RSV swab sent to lab. 16:34 CBC with Diff Sent. tl4 16:34 CMP Sent. tl4 16:34 Lactate w/ 2H reflex if indic. Sent. tl4 16:34 Protime (+inr) Sent. tl4 16:34 Ptt, Activated Sent. tl4 16:34 Urinalysis w/ reflexes Sent. tl4 16:34 Blood Culture Adult (2) Sent. tl4 17:55 COVID-19/FLU A+B/RSV Sent. tl4 17:56 Inserted saline lock: 22 gauge in right antecubital area, using aseptic technique. tl4 Blood collected. 17:56 Inserted saline lock: 22 gauge in right hand, using aseptic technique. tl4 18:10 Lori Shepard MD is Hospitalizing Provider. sb4 21:09 No provider procedures requiring assistance completed. Patient admitted, IV remains in tm6 place. Administered Medications: 16:15 Drug: Ibuprofen PO 600 mg PO once Route: PO; tl4 17:03 Follow up: Response: No adverse reaction; Temperature is decreased tl4 17:02 Drug: Albumin IVPB 25 grams 100 ml IVPB once; (Note: Albumin 25% concentration) Volume: tl4 100 ml; Route: IVPB; Infused Over: 30 mins; Site: left antecubital; Delivery: Primary tubing; 17:55 Follow up: Response: No adverse reaction; IV Status: Completed infusion; IV Intake: tl4 100ml 18:17 Drug: Cefepime IVPB 2 grams IVPB at 200 ml/hr once over 30 mins; (mix in NS 100 mL) tl4 Route: IVPB; Rate: 200 ml/hr; Infused Over: 30 mins; Site: right hand; 18:38 Follow up: Response: No adverse reaction; IV Status: Completed infusion; IV Intake: tl4 100ml 18:17 Drug: Doxycycline PO 100 mg PO once Route: PO; tl4 18:38 Follow up: Response: No adverse reaction tl4 Medication: 16:01 VIS not applicable for this client. mb9 Intake: 17:55 IV: 100ml; Total: 100ml. tl4 18:38 IV: 100ml; Total: 200ml. tl4 Outcome: 18:12 Decision to Hospitalize by Provider. sb4 21:09 Admitted to Med/surg accompanied by nurse, with oxygen, with chart, tm6 21:09 Condition: stable 21:09 Instructed on the need for admit, 21:09 Patient left the ED. tm6 Signatures: Dispatcher [employer] EDYolanda Huff PA-C PA-C sb4 Justine Ramsay RN RN mb9 Clifton Chaves RN RN tm6 Jame Mantilla RN RN tl4 Vincent Nunez [email or web address] Corrections: (The following items were deleted from the chart) 18:19 17:14 BP 113 / 57; Pulse 96bpm; Resp 19bpm; Pulse Ox 93% RA; tl4 tl4 18:19 17:48 BP 110 / 43; Pulse 85bpm; Resp 16bpm; Pulse Ox 95% RA; mb9 tl4 18:19 17:57 BP 110 / 43; Pulse 97bpm; Resp 20bpm; Pulse Ox 95% 2 lpm Nasal Cannula; tl4 tl4
--- NOTE | 2023-06-19 18:13 | EDPHYS ---
Physician Documentation [facility] Name: Jv Bryant Age: 68 yrs Sex: Female : 1955 Arrival Date: 06/19/2023 Time: 15:45 Bed 4 Private MD: ED Physician Pascual Wray HPI: 06/18 16:11 This 68 yrs old Female presents to ER via EMS with complaints of fever, edema. sb4 16:19 patient comes in with generalized weakness, fever, worsening bilateral lower extremity sb4 edema. home health nurse came today and called EMS with concerns for sepsis. patient has chronic lymphadema, is on lasix. states she recently decreased her lasix dose because it was causing her "bladder overload" although has an indwelling mariee catheter. Historical: - Allergies: 15:58 Rocephin; mb9 15:58 pneumonia vaccine; mb9 15:58 meropenem; mb9 15:58 Macrolide Antibiotics; mb9 15:58 Iodine; mb9 15:58 FLU VACCINE; mb9 15:58 Fentanyl; mb9 15:58 Dilaudid; mb9 15:58 Betadine; mb9 15:58 Augmentin; mb9 15:58 aloe vera; mb9 15:58 Stelazine; mb9 15:58 Sulfa (Sulfonamide Antibiotics); mb9 15:58 Vancomycin; mb9 - PMHx: 15:58 unspecified kidney failure; ADD/ADHD; Arthritis; Chronic pain; COPD; Fibromyalgia; mb9 frequent UTI'S; heart disease- unspecified; Hyperlipidemia; Hypertension; insomnia; lymphedema; PERIPHERAL NEUROPATHY; - Immunization history:: Adult Immunizations up to date. - Infectious Disease History:: Denies. - Social history:: Smoking status: Patient denies any tobacco usage or history of. ROS: 16:19 Constitutional: Positive for chills, fever, sb4 16:41 Abdomen/GI: Negative for abdominal pain, nausea, vomiting, diarrhea, and constipation, sb4 16:41 Cardiovascular: Positive for edema, 16:41 Respiratory: Positive for shortness of breath, 16:41 Neuro: Positive for weakness, 16:41 All other systems are negative, Exam: 16:41 Head/Face: Normocephalic, atraumatic. Eyes: Extra-ocular motions intact. Periorbital sb4 areas with no swelling, redness, or edema. Abdomen/GI: Soft, non-tender, no distension. 16:41 Constitutional: The patient appears alert, awake, obese, 16:41 ENT: Mouth: Oral mucosa: dry, 16:41 Cardiovascular: Edema: pedal edema, that is marked, ankle edema, that is marked, 16:41 Respiratory: the patient does not display signs of respiratory distress, Breath sounds: rhonchi, that are moderate, are scattered, 17:44 Skin: cellulitis, that is mild, right and left leone circumferentially, sb4 17:44 : a mariee is noted, sb4 Vital Signs: 15:59 BP 132 / 78; Pulse 108; Resp 20; Temp 101.5; Pulse Ox 95% on R/A; Weight 181.44 kg; mb9 Height 5 ft. 8 in. ; 16:19 BP 89 / 51; mb9 16:30 BP 111 / 42; Pulse 97; Resp 21; Temp 99.9(O); Pulse Ox 95% ; Pain 8/10; tl4 17:00 BP 113 / 57; Pulse 96; Resp 19; Pulse Ox 93% on R/A; tl4 17:30 BP 110 / 43; Pulse 97; Resp 20; Pulse Ox 95% on 2 lpm NC; tl4 18:00 BP 128 / 50; Pulse 91; Resp 16; Temp 98.7(O); Pulse Ox 96% on 2 lpm NC; tl4 19:00 BP 122 / 54; Pulse 82; Resp 20; Pulse Ox 95% on 2 lpm NC; tl4 21:08 BP 118 / 59; Pulse 59; Resp 19; Temp 98.7(TE); Pulse Ox 98% on 2 lpm NC; tm6 15:59 Body Mass Index 60.82 (181.44 kg, 172.72 cm) mb9 16:30 Pain Scale: Adult tl4 MDM: 16:02 Patient medically screened. sb4 17:45 Data reviewed: vital signs, nurses notes, EMS record, lab test result(s), EKG, sb4 radiologic studies, I have discussed the patient's presentation/case with the attending Emergency Department Physician; and as a result, I will admit patient. Consideration of Admission/Observation Patient was admitted/placed on observation. Care significantly affected by the following chronic conditions: Hypertension, Chronic Obstructive Pulmonary Disease, Obesity, Chronic Kidney Disease. Counseling: I had a detailed discussion with the patient and/or guardian regarding the historical points, exam findings, and any diagnostic results supporting the discharge/admit diagnosis, lab results, radiology results, the need for further work-up and treatment in the hospital. 18:00 Post IV fluid administration reassessment for Sepsis: Client not prescribed the 30 sb4 mL/kg IVF due to: concern for fluid overload. Amount of IVF prescribed: 250. 18:36 Post IV fluid administration reassessment for Sepsis: Sepsis focused reassessment 4 complete. 06/18 16:02 Order name: Blood Culture Adult (2) 4 06/18 16:02 Order name: CBC with Diff; Complete Time: 20:47 [facility] 06/18 16:02 Order name: CMP; Complete Time: 16:59 [facility] 06/18 16:02 Order name: Lactate w/ 2H reflex if indic.; Complete Time: 16:59 [facility] 06/18 16:02 Order name: Protime (+inr); Complete Time: 16:59 [facility] 06/18 16:02 Order name: Ptt, Activated; Complete Time: 16:59 4 06/18 16:02 Order name: Urinalysis w/ reflexes; Complete Time: 16:56 [facility] 06/18 16:23 Order name: Glucose, Ancillary Testing; Complete Time: 16:23 [facility] 06/18 16:46 Order name: COVID-19/FLU A+B/RSV; Complete Time: 18:01 sb4 06/18 16:56 Order name: Urine Culture [facility]MA 06/18 19:28 Order name: Thyroid Stimulating Hormone; Complete Time: 20:27 EDMS 06/18 19:28 Order name: CBC with Automated Diff EDMS 06/18 19:28 Order name: CBC with Automated Diff EDMS 06/18 19:28 Order name: Comprehensive Metabolic Panel EDMS 06/18 19:28 Order name: Comprehensive Metabolic Panel EDMS 06/18 19:28 Order name: Magnesium EDMS 06/18 19:28 Order name: Magnesium; Complete Time: 20:27 EDMS 06/18 19:28 Order name: Magnesium EDMS 06/18 19:28 Order name: Magnesium EDMS 06/18 19:28 Order name: Troponin High Sensitivity EDMS 06/18 19:28 Order name: Troponin High Sensitivity EDMS 06/18 20:45 Order name: CBC Smear Scan; Complete Time: 20:47 [facility]MA 06/18 16:02 Order name: Chest Single View XRAY; Complete Time: 16:36 sb4 06/18 19:28 Order name: Occupational Therapy Consult [facility] 06/18 19:28 Order name: Physical Therapy Consult [facility] 06/18 16:02 Order name: Accucheck; Complete Time: 16:15 sb4 06/18 16:02 Order name: Cardiac monitoring; Complete Time: 16:15 sb4 06/18 16:02 Order name: EKG - Nurse/Tech; Complete Time: 16:15 sb4 06/18 16:02 Order name: IV Saline Lock - Large Bore; Complete Time: 16:43 sb4 06/18 16:02 Order name: Labs collected and sent; Complete Time: 16:33 sb4 06/18 16:02 Order name: O2 Per Protocol; Complete Time: 16:15 sb4 06/18 16:02 Order name: O2 Sat Monitoring; Complete Time: 16:15 sb4 06/18 16:02 Order name: Vital Signs; Complete Time: 16:16 sb4 EC:17 Rate is 100 beats/min. Rhythm is regular, Sinus Rhythm. MT interval is normal at 148 sb4 msec. QRS interval is normal at 72 msec. QT interval is normal at 312 msec. No Q waves. T waves are Normal. No ST changes noted. Interpreted by me. Reviewed by me. Administered Medications: 16:15 Drug: Ibuprofen PO 600 mg PO once Route: PO; tl4 17:03 Follow up: Response: No adverse reaction; Temperature is decreased tl4 17:02 Drug: Albumin IVPB 25 grams 100 ml IVPB once; (Note: Albumin 25% concentration) Volume: tl4 100 ml; Route: IVPB; Infused Over: 30 mins; Site: left antecubital; Delivery: Primary tubing; 17:55 Follow up: Response: No adverse reaction; IV Status: Completed infusion; IV Intake: tl4 100ml 18:17 Drug: Cefepime IVPB 2 grams IVPB at 200 ml/hr once over 30 mins; (mix in NS 100 mL) tl4 Route: IVPB; Rate: 200 ml/hr; Infused Over: 30 mins; Site: right hand; 18:38 Follow up: Response: No adverse reaction; IV Status: Completed infusion; IV Intake: tl4 100ml 18:17 Drug: Doxycycline PO 100 mg PO once Route: PO; tl4 18:38 Follow up: Response: No adverse reaction tl4 Disposition Summary: 06/19/23 18:12 Hospitalization Ordered Notes: Hospitalization Status: Inpatient Admission sb4 Provider: Lori Shepard sb4 [facility] sb4 Condition: Fair sb4 Problem: new sb4 Symptoms: are unchanged sb4 Bed/Room Type: Standard sb4 Room Assignment: 201(06/19/23 19:37) cg Diagnosis - UTI/ Urinary tract infection, site not specified sb4 - Lymphedema, not elsewhere classified sb4 - Severe sepsis with septic shock sb4 Forms: - Medication Reconciliation Form sb4 - SBAR form sb4 - Leadership Thank You Letter sb4 Signatures: Dispatcher [employer] Joleen Hooks, RN RN Yolanda Jean PA-C PA-C sb4 Justine Ramsay RN RN mb9 Jame Mantilla RN RN tl4 Corrections: (The following items were deleted from the chart) 16:03 16:03 BLOOD CULTURE*+BA.LAB.BRZ ordered. EDMS EDMS 16:03 16:03 CBC+H.LAB.BRZ ordered. EDMS EDMS 16:03 16:03 COMPREHENSIVE METABOLIC PANEL+C.LAB.BRZ ordered. EDMS EDMS 16:03 16:03 LACTATE+C.LAB.BRZ ordered. EDMS EDMS 16:03 16:03 PROTIME (+INR)+COAG.LAB.BRZ ordered. EDMS EDMS 16:03 16:03 PTT, ACTIVATED+COAG.LAB.BRZ ordered. EDMS EDMS 16:03 16:03 Urinalysis+U.LAB.BRZ ordered. EDMS EDMS 16:03 16:03 Chest Single View+RAD.RAD.BRZ ordered. EDMS EDMS 19:37 18:12 sb4 cg
--- NOTE | 2023-06-19 19:13 | P.HP ---
Certification for Inpatient With expected LOS: >2 Midnights Practitioner: I am a practitioner with admitting privileges, knowledge of patient current condition, hospital course, and medical plan of care. Services: Services provided to patient in accordance with Admission requirements found in Title 42 Section 412.3 of the Code of Federal Regulations Patient History Date of Service: 06/19/23 Reason for admission: Weakness, fever and delirium History of Present Illness: 68-year-old female past medical history of hypertension, COPD supposed to be on home O2 but uses as needed, chronic lower extremity lymphedema, previously followed at wound clinic but stopped following, presented because of weakness and not been assessed since the last 1 day. Patient states she was reportedly delirious earlier today. She states she has been having fever and chills. She denies any nausea vomiting or cough. She admits to mild worsening shortness of breath with minimal activity. She states she continues to apply calamine wound wrap over lower extremities and feet her lymphedema is better than when she was following at the wound clinic. She states she gets library media assistant with [employer] who assist her with putting on the wraps. She states she was previously taking Lasix but stopped taking due to what she describes as bladder overloadhaving more incontinence. She denies worsening of her leg swelling. She denies any chest pain or palpitation. On arrival in the ED vital signs were stable, afebrile, WBC was 20.8 K with left shift, BMP was unremarkable except for creatinine of 1.29. Lactate was normal. Chest x-ray shows mild interstitial pulmonary edema with vascular prominence. EKG shows no ST segment changes. Echo from a 6 months ago shows A-fib with EF of 55% but is also noted mild mitral regurgitation. Allergies amoxicillin [From Augmentin] Allergy (Severe, Verified 09/16/19 23:49) diarrhea, nausea, vomiting ceftriaxone [From Rocephin] Allergy (Severe, Verified 09/16/19 23:49) Itching/Hives/Rash fentanyl Allergy (Severe, Verified 09/16/19 23:49) Itching/Hives/Rash iodine Allergy (Severe, Verified 09/16/19 23:49) Unknown lincomycin [From Lincocin] Allergy (Severe, Verified 09/16/19 23:49) rashes,headaches pneumococcal vaccine [From Pneumovax 23] Allergy (Severe, Verified 09/16/19 23:49) sick more than a week sulfamethoxazole [From Bactrim] Allergy (Severe, Verified 09/16/19 23:49) Anaphylaxis trifluoperazine [From Stelazine] Allergy (Severe, Verified 09/16/19 23:49) itching and rashes vancomycin Allergy (Severe, Verified 09/16/19 23:49) renal failure meropenem [From Merrem] Allergy (Mild, Verified 10/11/22 18:54) Shortness of breath soap [From Betadine] Allergy (Mild, Verified 09/16/19 23:49) Hives/Rash Sulfa (Sulfonamide Antibiotics) Allergy (Mild, Verified 09/16/19 23:49) Anaphylaxis aloe vera Allergy (Verified 09/16/19 23:49) Itching celery Allergy (Verified 09/16/19 23:49) Nausea/Vomiting Macrolide Antibiotics Allergy (Verified 09/16/19 23:49) Itching/Hives/Rash FLU VACCINE Allergy (Severe, Uncoded 09/16/19 23:49) sick for more than a week aloe vera Allergy (Uncoded 09/16/19 23:49) Unknown hall peppers Allergy (Uncoded 09/16/19 23:49) Nausea/Vomiting celery Allergy (Uncoded 09/16/19 23:49) Unknown FLU VAC Allergy (Uncoded 09/16/19 23:49) Unknown peppers Allergy (Uncoded 09/16/19 23:49) Unknown Home Medications: Lovastatin 20 mg PO BEDTIME 06/30/21 Metoprolol Tartrate 25 mg PO BID 06/30/21 oxyBUTYnin chloride [Oxybutynin Chloride] 5 mg PO BID PRN 06/30/21 Benzonatate [Tessalon Perle*] 100 mg PO TID PRN #30 cap 11/02/22 Furosemide [Lasix*] 20 mg PO BID #60 tab 11/02/22 Potassium Chloride 20 meq PO DAILY #30 tab 11/02/22 Ensure Max Protein 330 ml PO BID #60 can 01/22/23 Kevin [Kevin*] 1 pkt PO BID #60 packet 01/22/23 Midodrine HCl [Proamatine*] 5 mg PO TIDWM #90 tab 01/22/23 - Past Medical/Surgical History Diabetic: No -: Lymphedema - bilateral leg -: Morbid obesity with Hx of Lap. Band -: Peripheral neuropathy -: Osteoarthritis -: mild COPD -: mild eczema -: Depression -: Sleep apnea -: CHF -: CRE -: hypertension -: frequent UTIs -: -: Lap band 2008 -: Tonsillectomy and adenoidectomy -: Intracranial hemorrhage Psychosocial/ Personal History: Patient is and lives by herself. She has home health. - Family History Father -: Heart disease Mother -: Hypertension, Stroke Notes: erin deirdre syndrome - Social History Smoking Status: Light Tobacco smoker (1-9 cigarettes/day) Alcohol use: No CD- Drugs: No Caffeine use: Yes Place of Residence: Home Review of Systems Respiratory: Shortness of Breath, SOB with Excertion Musculoskeletal: Pedal edema Neurological: Weakness, Incoordination Physical Examination - Physical Exam General: Alert, Oriented x3 HEENT: Atraumatic, Normocephalic, PERRLA Neck: Supple, 2+ carotid pulse no bruit, JVD not distended Respiratory: Diminished, Crackles/rales Cardiovascular: Regular rate/rhythm, Normal S1 S2, No murmurs, Edema Gastrointestinal: Normal bowel sounds, Soft and benign, Non-distended, No ascites, No tenderness Musculoskeletal: Clubbing, Swelling, Other (Severe lymphedema of bilateral lower extremity, marked edema of foot digits) Neurological: Normal speech, Normal strength at 5/5 x4 extr, Normal tone, Sensation intact, Cranial nerves 3-12 intact External genitalia: Other (Suprapubic catheter in situ, clean exit site) - Studies Laboratory Data (last 24 hrs) 06/19/23 06/19/23 06/19/23 16:29 16:29 16:29 WBC 20.80 H Hgb 10.5 L Hct 32.8 L Plt Count 322 PT 13.7 H INR 1.25 APTT 37.2 H Sodium 137 Potassium 3.7 BUN 10 Creatinine 1.29 H Glucose 130 H Total Bilirubin 0.7 AST 5 L ALT < 10 L Alkaline Phosphatase 63 Assessment and Plan - Problems (Diagnosis) (1) Catheter-associated urinary tract infection Current Visit: No Status: Acute Qualifiers: Indwelling urinary catheter type: cystostomy catheter Encounter type: initial encounter Qualified Code(s): T83.510A - Infection and inflammatory zachary ction due to cystostomy catheter, initial encounter; N39.0 - Urinary tract infection, site not specified (2) Shortness of breath Current Visit: No Status: Acute (3) Chronic venous hypertension w/ulcer and inflammation involv right side Current Visit: No Status: Chronic (4) Morbid obesity Current Visit: No Status: Chronic - Plan Impression Metabolic encephalopathyresolved Catheter associated urinary tract infectionCAUTI with leukocytosis Suprapubic catheter status Acute pulmonary edema Presumed diastolic CHF with exacerbation Chronic bilateral lymphedemauncontrolled History of mild COPD Hypertension Plan Will admit to inpatient Start IV Lasix every 8 Monitor potassium and replete Start empirical antibiotics with Rocephin Follow urine culture Continue suprapubic Foleydraining well Follow WBC trend Follow repeat echo although likely diastolic dysfunction Serial sets of cardiac enzyme COPDDuoNebs as needed No acute exacerbation of suspected now Chronic pain syndromecontinue tramadol as needed DVT prophylaxissubcutaneous Lovenox Advance directivefull code Send dispositioncan DC home in a.m. if volume status improving since improved mental status and chronic lymphedema will need scheduled outpatient diuresis rather than the need for IV diuretics. Need for patient to continue home diuretic dosage discussed with patient in detail - Advance Directives Does patient have a Living Will: Yes Does patient have a Durable POA for Healthcare: No - Code Status/Comfort Care Code Status Assessed: Yes Code Status: Full Code Physician Review: Patient Assessed, Agree with Above Assessment and Plan
[2023-06-19] MEDS ORDERED: ALBUTEROL 2.5 MG/3 ML NEB SOL NEB PRN (19:21)
[2023-06-19] MEDS ORDERED: ONDANSETRON 4 MG/2 ML VIAL IV PRN (19:21)
[2023-06-19] MEDS ORDERED: HYDRALAZINE HCL 20 MG/ML VIAL IV PRN (19:27)
[2023-06-19] MEDS ORDERED: LORAZEPAM 0.5 MG TABLET PO PRN (19:27)
[2023-06-19] MEDS: NICOTINE 21 MG/PAT TD SCH (19:30)
[2023-06-19 20:26] LABS: Magnesium 1.7 mg/dL (1.6-2.4); Thyroid Stimulating Hormone 0.786 uIU/mL (0.358-3.740)
[2023-06-19] MEDS ORDERED: ACETAMINOPHEN 500 MG TAB ONE (20:40)
[2023-06-19 20:44] LABS: Blood Morphology Comment NOT SEEN (NOT SEEN); Platelet Estimate ADEQ; White Blood Cell Scan OK (OK)
[2023-06-19] MEDS: ACETAMINOPHEN 500 MG TAB PO PRN (20:45)
[2023-06-19] MEDS: FUROSEMIDE 40 MG/4 ML VIAL IV ONE (22:30)
[2023-06-19] MEDS: Levofloxacin500mg IV 500 MG/100 ML BAG IV SCH (22:51)
[2023-06-19] MEDS: MIDODRINE HCL 5 MG TABLET PO SCH (23:27)
[2023-06-20] MEDS: MORPHINE 2 MG/ML SYR IV PRN (02:42)
[2023-06-20 03:46] LABS: Absolute Eosinophils 0.1 K/uL (0-0.5); Absolute Lymphocytes (CBC) 0.8 K/uL (0.7-4.9); Absolute Monocytes 0.6 K/uL (0.1-1.3); Absolute Neutrophil 20.2 K/uL (1.8-8.0); Basophils % 0.1 % (0-1.3); Eosinophils % 0.2 % (0-4.4); Hematocrit 30.9 % (36.0-45.0); Hemoglobin 10.2 g/dL (12.0-15.0); Lymphocytes % 3.5 % (15.3-44.8); MCH 27.3 pg (27.0-35.0); MCV 82.6 fL (80-100); MPV 8.4 fL (7.6-11.3); Monocytes % 2.8 % (3.3-12.3); Neutrophils % 93.4 % (41.7-73.7); Platelets 303 thou/uL (152-406); RBC Red Blood Cell Count 3.75 M/uL (3.86-4.86)
[2023-06-20 04:06] LABS: AST/SGOT 11 U/L (15-37); Albumin 2.6 g/dL (3.4-5.0); Albumin/Globulin Ratio 0.5 (1.1-1.8); Alkaline Phosphatase 63 U/L (45-117); Anion Gap 7.8 mEq/L (5.0-15.0); BUN Blood Urea Nitrogen 12 mg/dL (7-18); Bicarbonate 25 mEq/L (21-32); Bilirubin Total 0.8 mg/dL (0.2-1.0); Globulin 4.9 g/dL (2.3-3.5); Glomerular Filtration Rate 43 ml/min (=/>90); Glucose Level 115 mg/dL (74-106); Potassium 3.8 mEq/L (3.5-5.1); Protein, Total 7.5 g/dL (6.4-8.2); Sodium Level 136 mEq/L (136-145); Troponin High Sensitivity 13.3 pg/mL (<58.9)
[2023-06-20 04:08] LABS: ALT/SGPT < 10 U/L (13-56)
[2023-06-20] MEDS: FUROSEMIDE 40 MG/4 ML VIAL IV SCH (06:00)
--- NOTE | 2023-06-20 07:02 | P.PN ---
Date of Service: 06/20/23 Subjective: reports subjective fever/chills prior to admission; +reports increased coughing unsure if patient decreased lasix dose on her own or just cut the pill and spread throughout the day states she decreased the amount of lasix she was taking but reports cutting the pill into 1/4ths and was taking it ~q3h catheter replaced 2 days ago per patient nausea/dry heaving this morning during rounds febrile this morning - 101 temp ROS: 10 point ROS as noted above, otherwise negative Physical Exam: GEN: Alert, oriented, NAD HEENT: Normal conjunctiva, sclera anicteric CV: Regular rate and rhythm, +b/l chronic lymphedema Pulm: Nonlabored respirations on room air, clear bilaterally ABD: Soft, nontender, nondistended Integumentary: chronic skin changes in lower legs Neuro: Normal speech, normal affect chronic suprapubic cath in place (last replaced ~06/17), no surrounding skin changes vitals reviewed Problem List: Catheter-associated UTI hx of frequent MDR UTIs Chronic diastolic CHF Chronic lymphedema Iron deficiency anemia COPD, chronic (O2 at home PRN) Paroxysmal a-fib Obstructive sleep apnea Fibromyalgia h/o PE (June 2021) Catheter-associated UTI hx of frequent MDR UTIs reports subjective fever/chills prior to admission; +reports increased coughing. possible weakness/confusion. patient with multiple MDR UTIs over past few years - recurrent proteus mirabilis hx of chronically "dirty" urine. has history of purple bag syndrome mariee last replaced ~2 days ago 06/18/23 per patient urinalysis in ED concerning for UTI with +LE, +RBC, +WBC given IV cefepime / PO doxy in ED Follow urine and blood cultures Start empiric levaquin (06/18-) PRN analgesics / antiemetics Chronic diastolic CHF Chronic lymphedema CXR (06/18): diffuse prominence of pulm interstitium could reflect mild edema. No consolidative airspace disease continue IV lasix 40 mg q8h unsure if patient decreased lasix dose on her own or just cut the pill and spread throughout the day Patient states she decreased the amount of lasix she was taking but reports cutting the pill into 1/4ths and was taking it ~q3h Iron deficiency anemia COPD, chronic (O2 at home PRN) Paroxysmal a-fib Obstructive sleep apnea Fibromyalgia h/o PE (June 2021) confirm home meds, restart as appropriate VTE: Lovenox Code: Full Dispo: Home, 2+ days Pending culture results
[2023-06-20] MEDS: ENOXAPARIN 40 MG/0.4 ML SQ SCH (08:21)
--- NOTE | 2023-06-20 13:38 | EKG ---
Test Date: 2023-06-19 Test Time: 16:10:55 Kitchenhand: LIZZ MEASUREMENT RESULTS: Intervals: Rate: 100 RI: 148 QRSD: 72 QT: 312 QTc: 402 [place]: P: 90 RI: 148 QRS: 44 T: 78 INTERPRETIVE STATEMENTS: Sinus rhythm Low voltage QRS Septal infarct, age undetermined Abnormal ECG Compared to ECG 11/03/2022 22:05:02 Myocardial infarct finding now present ST (T wave) deviation no longer present Electronically Signed On 06-20-23 13:36:22 CDT by Terry Ann
[2023-06-20] MEDS ORDERED: ALBUTEROL 2.5 MG/3 ML NEB SOL NEB PRN (14:21)
--- NOTE | 2023-06-20 14:22 | P.CNS ---
Date of Consult: 06/20/23 Reason for Consult: UTI, recurrent infections Chief Complaint: Weakness, fever and delirium History of Present Illness: Patient is a 68yo F with a past medical history as listed below who presented to the ED with complaints of weakness, "feeling delirious" WBC 20 with elevated neutrophils. Fever 101.5 F. Urinalysis suggestive of UTI. Blood and urine cultures obtained. Patient was started on empiric antibiotics. Due to extensive allergy list, limited options for antibiotic therapy. Of note, patient has history of multiple MDR urinary tract infections. Allergies amoxicillin [From Augmentin] Allergy (Severe, Verified 09/16/19 23:49) diarrhea, nausea, vomiting ceftriaxone [From Rocephin] Allergy (Severe, Verified 09/16/19 23:49) Itching/Hives/Rash fentanyl Allergy (Severe, Verified 09/16/19 23:49) Itching/Hives/Rash iodine Allergy (Severe, Verified 09/16/19 23:49) Unknown lincomycin [From Lincocin] Allergy (Severe, Verified 09/16/19 23:49) rashes,headaches pneumococcal vaccine [From Pneumovax 23] Allergy (Severe, Verified 09/16/19 23:49) sick more than a week sulfamethoxazole [From Bactrim] Allergy (Severe, Verified 09/16/19 23:49) Anaphylaxis trifluoperazine [From Stelazine] Allergy (Severe, Verified 09/16/19 23:49) itching and rashes vancomycin Allergy (Severe, Verified 09/16/19 23:49) renal failure meropenem [From Merrem] Allergy (Mild, Verified 10/11/22 18:54) Shortness of breath soap [From Betadine] Allergy (Mild, Verified 09/16/19 23:49) Hives/Rash Sulfa (Sulfonamide Antibiotics) Allergy (Mild, Verified 09/16/19 23:49) Anaphylaxis aloe vera Allergy (Verified 09/16/19 23:49) Itching celery Allergy (Verified 09/16/19 23:49) Nausea/Vomiting Macrolide Antibiotics Allergy (Verified 09/16/19 23:49) Itching/Hives/Rash FLU VACCINE Allergy (Severe, Uncoded 09/16/19 23:49) sick for more than a week aloe vera Allergy (Uncoded 09/16/19 23:49) Unknown hall peppers Allergy (Uncoded 09/16/19 23:49) Nausea/Vomiting celery Allergy (Uncoded 09/16/19 23:49) Unknown FLU VAC Allergy (Uncoded 09/16/19 23:49) Unknown peppers Allergy (Uncoded 09/16/19 23:49) Unknown Home medications list reviewed: Yes Home Medications: Lovastatin 20 mg PO BEDTIME 06/30/21 oxyBUTYnin chloride [Oxybutynin Chloride] 5 mg PO BID PRN 06/30/21 Benzonatate [Tessalon Perle*] 100 mg PO TID PRN #30 cap 11/02/22 Furosemide [Lasix*] 20 mg PO BID #60 tab 11/02/22 Diphenhydramine [Benadryl*] 25 mg PO BEDTIME 06/19/23 Hydrocodone/Acetaminophen [Hydrocodone-Acetamin 7.5-325] 1 tab PO Q6HP PRN 06/19/23 - Past Medical/Surgical History Diabetic: No -: Lymphedema - bilateral leg -: Morbid obesity with Hx of Lap. Band -: Peripheral neuropathy -: Osteoarthritis -: mild COPD -: mild eczema -: Depression -: Sleep apnea -: CHF -: CRE -: hypertension -: frequent UTIs -: -: Lap band 2008 -: Tonsillectomy and adenoidectomy -: Intracranial hemorrhage Psychosocial/ Personal History: Patient is and lives by herself. She has home health. - Family History Father Medical History: Heart disease Mother Medical History: Hypertension, Stroke Notes: erin deirdre syndrome - Social History Smoking Status: Unknown if ever smoked Alcohol use: No CD- Drugs: No Caffeine use: Yes Place of Residence: Home Review of Systems General: Weakness Respiratory: Shortness of Breath Physical Examination Temp Pulse Resp BP Pulse Ox 98.4 F 87 19 96/46 L 97 06/20/23 14:08 06/20/23 13:43 06/20/23 12:00 06/20/23 13:43 06/20/23 12:00 General: Oriented x3 HEENT: Atraumatic Cardiovascular: Regular rate/rhythm, Edema Integumentary: Skin breakdown (buttocks), Other (lymphedema BLE) Neurological: Normal speech Laboratory Data - Reviewed Microbiology Data - Reviewed Imagings Data: - Reviewed Conclusions/Impression: Problem List Catheter-Associated Urinary Tract Infection (CAUTI), POA Hx multi-drug resistant infections Lymphedema Chronic diastolic CHF COPD Atrial Fibraillation Fibromyalgia Catheter-Associated Urinary Tract Infection - POA - chronic suprapubic catheter -history of multi-drug resistant infections - Urine culture 06/18: pending - Blood cultures 06/18: pending - currently on levofloxacin (06/18-) - WBC 21.6. elevated neutrophils. - 24 Hour Tmax = 101.5 F Moisture-Associated skin breakdown vs Pressure Ulcers bilateral buttocks - Keep area clean and dry. Apply zinc-based barrier cream BID. - Pressure offloading measures Negative Flu/Covid/RSV Recommendations - Continue Levaquin for now. Follow up with blood and urine culture results. - extensive allergy list limiting antibiotic options. Consider switch to Ertapenem IV. Patient was safely administered ertapenem without allergic reaction during prior hospitalization. - monitor CBC, BMP and fever trends. - buttocks: Keep area clean and dry, apply zinc-based barrier cream BID. Pressure offloading measures. Case discussed with Sarah Killian
[2023-06-20] MEDS: JUVEN PACKET PO SCH (21:24)
[2023-06-21 02:58] LABS: Absolute Basophils 0.1 K/uL (0-0.5); Absolute Eosinophils 0.2 K/uL (0-0.5); Absolute Lymphocytes (CBC) 0.6 K/uL (0.7-4.9); Absolute Monocytes 0.4 K/uL (0.1-1.3); Absolute Neutrophil 7.7 K/uL (1.8-8.0); Basophils % 0.9 % (0-1.3); Eosinophils % 2.7 % (0-4.4); Hematocrit 27.2 % (36.0-45.0); Hemoglobin 9.1 g/dL (12.0-15.0); MCH 27.1 pg (27.0-35.0); MCHC 33.4 g/dL (32.0-36.0); MCV 81.1 fL (80-100); MPV 8.6 fL (7.6-11.3); Monocytes % 4.5 % (3.3-12.3); Neutrophils % 84.9 % (41.7-73.7); Platelets 249 thou/uL (152-406); RBC Red Blood Cell Count 3.35 M/uL (3.86-4.86); Red Cell Distribution Width 17.2 % (12.1-15.2)
[2023-06-21 03:39] LABS: Anion Gap 9.4 mEq/L (5.0-15.0); Magnesium 1.7 mg/dL (1.6-2.4); Potassium 3.4 mEq/L (3.5-5.1)
--- NOTE | 2023-06-21 10:49 | P.PN ---
Date of Service: 06/21/23 Subjective: Feeling a little better today hot and chills intermittently overnight no new/worsening symptoms lower extremities itchy no new rash/lesions PT came by this morning but she had just gotten up to bathroom and was too tired to work with them son brought her walker to bedside last night ROS: 10 point ROS as noted above, otherwise negative Physical Exam: GEN: Alert, oriented, appears tired HEENT: Normal conjunctiva, sclera anicteric CV: Regular rate and rhythm, +b/l chronic lymphedema Pulm: Nonlabored respirations on room air, bibasilar crackles ABD: Soft, nontender, nondistended Integumentary: chronic skin changes in lower legs Neuro: Normal speech, normal affect chronic suprapubic cath in place (last replaced ~06/17), no surrounding skin changes vitals reviewed Problem List: Catheter-associated UTI hx of frequent MDR UTIs Chronic diastolic CHF Chronic lymphedema Iron deficiency anemia COPD, chronic (O2 at home PRN) Paroxysmal a-fib Obstructive sleep apnea Fibromyalgia h/o PE (June 2021) Catheter-associated UTI hx of frequent MDR UTIs reports subjective fever/chills prior to admission; +reports increased coughing. possible weakness/confusion. patient with multiple MDR UTIs over past few years - recurrent proteus mirabilis hx of chronically "dirty" urine. has history of purple bag syndrome mariee last replaced ~2 days ago 06/18/23 per patient Blood cx (06/18): NGTD urine cx (06/18): prelim 4+ GNR given IV cefepime / PO doxy in ED continue empiric levaquin (06/18-) 100.1 this morning, leukocytosis resolved (06/20) Follow urine and blood cultures Chronic diastolic CHF Chronic lymphedema CXR (06/18): diffuse prominence of pulm interstitium could reflect mild edema. No consolidative airspace disease continue IV lasix; decreased to 40 mg BID from qh8 (06/20) unsure if patient decreased lasix dose on her own or just cut the pill and spread throughout the day Patient states she decreased the amount of lasix she was taking but reports cutting the pill into 1/4ths and was taking it ~q3h Iron deficiency anemia COPD, chronic (O2 at home PRN) Paroxysmal a-fib Obstructive sleep apnea Fibromyalgia h/o PE (June 2021) confirm home meds, restart as appropriate VTE: Lovenox Code: Full Dispo: Home, ~2 days Pending culture results PT
[2023-06-21] MEDS: MAGNESIUM SULFATE 1 gm IVPB 1 GM/100 ML BAG IV ONE (14:37)
[2023-06-21] MEDS: POTASSIUM 25 MEQ EFFERV TAB PO ONE (14:43)
[2023-06-21] MEDS ORDERED: POTASSIUM CL SA 10 MEQ TAB PO ONE (15:00)
[2023-06-21] MEDS: HYDROCODONE/APAP 5/325 MG TAB PO PRN (16:15)
[2023-06-21] MEDS: FUROSEMIDE 20 MG/ 2ML VIAL IV SCH (16:20)
[2023-06-21] MEDS ORDERED: FUROSEMIDE 40 MG/4 ML VIAL IV SCH (17:00)
[2023-06-22 03:56] LABS: Absolute Eosinophils 0.4 K/uL (0-0.5); Absolute Lymphocytes (CBC) 0.8 K/uL (0.7-4.9); Absolute Monocytes 0.4 K/uL (0.1-1.3); Absolute Neutrophil 5.2 K/uL (1.8-8.0); Basophils % 0.3 % (0-1.3); Eosinophils % 6.2 % (0-4.4); Hematocrit 28.2 % (36.0-45.0); Hemoglobin 9.3 g/dL (12.0-15.0); Lymphocytes % 11.2 % (15.3-44.8); MCV 81.7 fL (80-100); MPV 8.4 fL (7.6-11.3); Monocytes % 6.5 % (3.3-12.3); Neutrophils % 75.8 % (41.7-73.7); Platelets 249 thou/uL (152-406); RBC Red Blood Cell Count 3.45 M/uL (3.86-4.86)
[2023-06-22 04:15] LABS: Anion Gap 6.7 mEq/L (5.0-15.0); Magnesium 2.1 mg/dL (1.6-2.4); Potassium 3.7 mEq/L (3.5-5.1)
[2023-06-22] MEDS: FUROSEMIDE 20 MG TABLET PO SCH (09:25)
--- NOTE | 2023-06-22 10:24 | P.PN ---
Date of Service: 06/22/23 Subjective: no issues overnight afebrile ROS: 10 point ROS as noted above, otherwise negative Physical Exam: GEN: Alert, oriented, NAD HEENT: Normal conjunctiva, sclera anicteric CV: Regular rate and rhythm, +b/l chronic lymphedema Pulm: Nonlabored respirations on room air, diminished at bases bilaterally ABD: Soft, nontender, nondistended Integumentary: chronic skin changes in lower legs Neuro: Normal speech, normal affect chronic suprapubic cath in place (last replaced ~06/17), no surrounding skin changes vitals reviewed Problem List: Catheter-associated UTI hx of frequent MDR UTIs Chronic diastolic CHF Chronic lymphedema Iron deficiency anemia COPD, chronic (O2 at home PRN) Paroxysmal a-fib Obstructive sleep apnea Fibromyalgia h/o PE (June 2021) Catheter-associated (suprapubic cath) UTI hx of frequent MDR UTIs reports subjective fever/chills prior to admission; +reports increased coughing. possible weakness/confusion. patient with multiple MDR UTIs over past few years - recurrent proteus mirabilis hx of chronically "dirty" urine. has history of purple bag syndrome suprapubic cath last replaced ~2 days ago 06/18/23 per patient Blood cx (06/18): NGTD urine cx (06/18): prelim 4+ GNR given IV cefepime / PO doxy in ED continue empiric levaquin (06/18-) afebrile, leukocytosis resolved 06/20 Follow urine and blood cultures sent to [facility] labs; due to broken machine here Chronic diastolic CHF Chronic lymphedema CXR (06/18): diffuse prominence of pulm interstitium could reflect mild edema. No consolidative airspace disease unsure if patient decreased lasix dose on her own or just cut the pill and spread throughout the day Patient states she decreased the amount of lasix she was taking but reports cutting the pill into 1/4ths and was taking it ~q3h low-normal BP. Continue to monitor BP while on diuretics. transition to oral lasix given improvement and concern with her BP midodrine added overnight 2 days ago Iron deficiency anemia COPD, chronic (O2 at home PRN) Paroxysmal a-fib Obstructive sleep apnea Fibromyalgia h/o PE (June 2021) confirm home meds, restart as appropriate VTE: Lovenox Code: Full Dispo: Home, ~2 days Pending culture results for final abx choice PT
[2023-06-23 05:58] LABS: Absolute Eosinophils 0.5 K/uL (0-0.5); Absolute Monocytes 0.6 K/uL (0.1-1.3); Absolute Neutrophil 4.6 K/uL (1.8-8.0); Basophils % 0.5 % (0-1.3); Eosinophils % 6.9 % (0-4.4); Hematocrit 28.3 % (36.0-45.0); Hemoglobin 9.5 g/dL (12.0-15.0); Lymphocytes % 15.7 % (15.3-44.8); MCHC 33.5 g/dL (32.0-36.0); MCV 80.8 fL (80-100); MPV 8.2 fL (7.6-11.3); Monocytes % 8.5 % (3.3-12.3); Neutrophils % 68.4 % (41.7-73.7); Nucleated Red Blood Cells % 0.2 % (0-0); Platelets 301 thou/uL (152-406); Red Cell Distribution Width 17.1 % (12.1-15.2)
[2023-06-23 06:13] LABS: Anion Gap 6.7 mEq/L (5.0-15.0); Potassium 3.7 mEq/L (3.5-5.1)
--- NOTE | 2023-06-23 07:17 | P.PN ---
Date of Service: 06/23/23 Subjective: feeling better today, "don't feel great, but feeling better each day" encouraged to work with PT tolerating diet, afebrile x3 days, feels like if she can get up out of bed and stable on feet, could possibly go home tomorrow no new/worse issues overnight afebrile ROS: 10 point ROS as noted above, otherwise negative Physical Exam: GEN: Alert, oriented, NAD HEENT: Normal conjunctiva, sclera anicteric CV: Regular rate and rhythm, +b/l chronic lymphedema Pulm: Nonlabored respirations on room air, diminished at bases bilaterally ABD: Soft, nontender, nondistended Integumentary: chronic skin changes in lower legs Neuro: Normal speech, normal affect chronic suprapubic cath in place (last replaced ~06/17), no surrounding skin changes vitals reviewed Problem List: Catheter-associated (suprapubic cath) UTI, multiple MDR organisms hx of frequent MDR UTIs Chronic diastolic CHF Chronic lymphedema Iron deficiency anemia COPD, chronic (O2 at home PRN) Paroxysmal a-fib Obstructive sleep apnea Fibromyalgia h/o PE (June 2021) Catheter-associated (suprapubic cath) UTI, multiple MDR organisms hx of frequent MDR UTIs reports subjective fever/chills prior to admission; +reports increased coughing. possible weakness/confusion. patient with multiple MDR UTIs over past few years - recurrent proteus mirabilis hx of chronically "dirty" urine. has history of purple bag syndrome suprapubic cath last replaced ~2 days ago 06/18/23 per patient Blood cx (06/18): NGTD urine cx (06/18): resulted on 06/22 - Proteus mirabilis, pseudomonas aeruginosa, E. coli; susceptible to cefepime/merrem/zosyn given IV cefepime / PO doxy x1 in ED on 06/18 on levaquin (06/18-) afebrile since 06/19, leukocytosis resolved 06/20 uncertain how much these 3 organisms are contributing / causing infection all 3 are resistant to levaquin, yet she has been afebrile, no leukocytosis, and clinically improving each day she has grown all of these bacteria in the past, and has had chronic suprapubic cath; likely colonized will discuss further with ID - finish off levaquin, vs switching based on cultures. she did come in with some shortness of breath and cough as well, had held off / decreased her lasix at home due to urine leaking around suprapubic cath refusing to upsize her suprapubic cath leaking around cath seems to be secondary to tube size. tube is draining without issue, and only leaks when she is laying on back for extended period of time after discussion with her, concluded she likely wouldn't have any leaking if she repositioned herself every 2-3 hours to allow better drainage of tube breathing improved with short course of IV lasix and transitioned to PO Chronic diastolic CHF Chronic lymphedema CXR (06/18): diffuse prominence of pulm interstitium could reflect mild edema. No consolidative airspace disease unsure if patient decreased lasix dose on her own or just cut the pill and spread throughout the day Patient states she decreased the amount of lasix she was taking but reports cutting the pill into 1/4ths and was taking it ~q3h low-normal BP. Continue to monitor BP while on diuretics. IV lasix transitioned to PO lasix given improvement and concern with her BP 06/21 continue PO lasix 20 mg BID midodrine; added 06/18 pm due to low BP dc 06/22 Iron deficiency anemia COPD, chronic (O2 at home PRN) Paroxysmal a-fib Obstructive sleep apnea Fibromyalgia h/o PE (June 2021) continue home meds VTE: Lovenox Code: Full Dispo: Home, ~1-2 days PT
--- NOTE | 2023-06-23 09:43 | P.PN ---
Infectious Disease Progress Note Chief Complaint: Weakness, fever and delirium Subjective: No acute events over the weekend. Denies any new or worsening complaints at this time. In no apparent distress, breathing comfortably on room air. Physical Examination Temp Pulse Resp BP Pulse Ox 97.5 F 68 16 112/51 L 93 06/23/23 08:00 06/23/23 08:49 06/23/23 08:00 06/23/23 08:49 06/23/23 08:00 General: In no apparent distress, alert and Oriented x3 HEENT: Atraumatic, normocephalic. Cardiovascular: Regular rate/rhythm. BLE edema/lymphedema. Resp: Clear to auscultation bilaterally. unlabored respirations on room air. Integumentary: Moisture-associated Skin breakdown buttocks. BLE lymphedema. Neurological: Normal speech Laboratory Data - Reviewed Microbiology Data - Reviewed Imagings Data: - Reviewed Medications List: Reviewed Assessment and Plan Problem List Catheter-Associated Urinary Tract Infection (CAUTI), POA Hx multi-drug resistant infections Lymphedema Chronic diastolic CHF COPD Atrial Fibraillation Fibromyalgia Catheter-Associated Urinary Tract Infection - POA - chronic suprapubic catheter -history of multi-drug resistant infections - Urine culture 06/18: 4+ gram negative rods. updated 06/22* Escherichia coli, Pseudomonas aeruginosa, Proteus mirabilis. - Blood cultures 06/18: no growth to date - currently on levofloxacin (06/18-) - leukocytosis resolved [WBC 20.8 -> 21.6 -> 9.1 -> 6.8] - afebrile 48 hours. Moisture-Associated skin breakdown vs Pressure Ulcers bilateral buttocks - Keep area clean and dry. Apply zinc-based barrier cream BID. - Pressure offloading measures Negative Flu/Covid/RSV Recommendations - Urine culture resulting with E.coli, P.aeruginosa, and P.mirabilis: recommend starting on Cefepime 2g IV to complete 7 days of targeted antibiotic therapy. - buttocks: Keep area clean and dry, apply zinc-based barrier cream BID. Pressure offloading measures. - BLE lymphedema: wound care per wound care team. - monitor CBC, BMP and fever trends. Case discussed with Sarah Killian
[2023-06-23] MEDS: CEFEPIME 2 GM in NA CHLORIDE 0.9% 100 ML IV SCH (16:47)
[2023-06-24 03:46] LABS: Absolute Basophils 0.1 K/uL (0-0.5); Absolute Eosinophils 0.4 K/uL (0-0.5); Absolute Lymphocytes (CBC) 1.2 K/uL (0.7-4.9); Absolute Monocytes 0.9 K/uL (0.1-1.3); Absolute Neutrophil 6.5 K/uL (1.8-8.0); Basophils % 0.6 % (0-1.3); Eosinophils % 4.9 % (0-4.4); Hematocrit 28.8 % (36.0-45.0); Hemoglobin 9.6 g/dL (12.0-15.0); MCH 27.2 pg (27.0-35.0); MCHC 33.5 g/dL (32.0-36.0); MCV 81.2 fL (80-100); MPV 8.4 fL (7.6-11.3); Monocytes % 9.5 % (3.3-12.3); Nucleated Red Blood Cells % 0.2 % (0-0); Platelets 284 thou/uL (152-406); RBC Red Blood Cell Count 3.55 M/uL (3.86-4.86); Red Cell Distribution Width 17.1 % (12.1-15.2)
[2023-06-24 03:58] LABS: Anion Gap 7.4 mEq/L (5.0-15.0); Magnesium 1.9 mg/dL (1.6-2.4); Potassium 3.4 mEq/L (3.5-5.1)
--- NOTE | 2023-06-24 15:59 | P.PN ---
Infectious Disease Progress Note Chief Complaint: Weakness, fever and delirium Subjective: No acute events overnight ambulating with walker with physical therapy. no new or worsening complaints at this time. continue current plan of care. Physical Examination Temp Pulse Resp BP Pulse Ox 97.7 F 67 16 100/47 L 96 06/24/23 12:00 06/24/23 12:00 06/24/23 12:00 06/24/23 12:00 06/24/23 12:00 General: In no apparent distress, alert and Oriented x3 HEENT: Atraumatic, normocephalic. Cardiovascular: Regular rate/rhythm. BLE edema/lymphedema. Resp: Clear to auscultation bilaterally. unlabored respirations on room air. Integumentary: Moisture-associated Skin breakdown buttocks. BLE lymphedema. Neurological: Normal speech Laboratory Data - Reviewed Microbiology Data - Reviewed Imagings Data: - Reviewed Medications List: Reviewed Assessment and Plan Problem List Catheter-Associated Urinary Tract Infection (CAUTI), POA Hx multi-drug resistant infections Lymphedema Chronic diastolic CHF COPD Atrial Fibraillation Fibromyalgia Catheter-Associated Urinary Tract Infection - POA - chronic suprapubic catheter -history of multi-drug resistant infections - Urine culture 06/18: 4+ gram negative rods. updated 06/22* Escherichia coli, Pseudomonas aeruginosa, Proteus mirabilis. - Blood cultures 06/18: no growth to date - levofloxacin (06/18-06/22) switched to Cefepime 06/22 following culture results. - leukocytosis resolved [WBC 20.8 -> 21.6 -> 9.1 -> 6.8] - afebrile Moisture-Associated skin breakdown vs Pressure Ulcers bilateral buttocks - Keep area clean and dry. Apply zinc-based barrier cream BID. - Pressure offloading measures Negative Flu/Covid/RSV Recommendations - uti: continue cefepime IV x 7 days. - buttocks: Keep area clean and dry, apply zinc-based barrier cream BID. Pressure offloading measures. - BLE lymphedema: wound care per wound care team. - physical therapy - monitor CBC, BMP and fever trends. Case discussed with Sarah Killian
--- NOTE | 2023-06-24 18:31 | P.PN ---
Subjective Date of Service: 06/24/23 Chief Complaint: Weakness, fever and delirium Patient denies any complaint today. She ambulated with physical therapy today. Physical Examination - Vital Signs Temperature: 97.4 F Blood Pressure: 114/53 Pulse: 67 Respirations: 16 Pulse Ox (%): 98 - Studies Microbiology Data (last 24 hrs): 06/19/23 16:41 Blood - Blood Aerobic Blood Culture - Final No growth in 5 days. 06/19/23 16:41 Blood - Blood Anaerobic Blood Culture - Final No growth in 5 days. 06/19/23 16:29 Blood - Blood Aerobic Blood Culture - Final No growth in 5 days. 06/19/23 16:29 Blood - Blood Anaerobic Blood Culture - Final No growth in 5 days. 06/19/23 16:32 Clean Catch Urine [place] Count - Final >100,000 CFU/ML. 06/19/23 16:32 Clean Catch Urine - Final Escherichia Coli Pseudomonas Aeruginosa Proteus Mirabilis Assessment And Plan - Plan Physical Exam: GEN: Alert, oriented, NAD, obese. CV: Regular rate and rhythm, +b/l chronic lymphedema Pulm: Nonlabored respirations on room air, diminished at bases bilaterally ABD: Soft, nontender, nondistended Integumentary: Bilateral venous stasis dermatitis of lower extremities. Neuro: Normal speech, normal affect chronic suprapubic cath in place. vitals reviewed Problem List: Catheter-associated (suprapubic cath) UTI, multiple MDR organisms hx of frequent MDR UTIs Chronic diastolic CHF Chronic lymphedema Iron deficiency anemia COPD, chronic (O2 at home PRN) Paroxysmal a-fib Obstructive sleep apnea Fibromyalgia h/o PE (June 2021) Catheter-associated (suprapubic cath) UTI, multiple MDR organisms hx of frequent MDR UTIs Patient with multiple MDR UTIs over past few years - recurrent proteus mirabilis Hx of chronically "dirty" urine. suprapubic cath last replaced ~2 days ago 06/18/23 per patient Blood cx (06/18): NGTD urine cx (06/18): resulted on 06/22 - Proteus mirabilis, pseudomonas aeruginosa, E. coli; susceptible to cefepime/merrem/zosyn Given IV cefepime / PO doxy x1 in ED on 06/18 On levaquin (06/18-) Afebrile since 06/19, leukocytosis resolved 06/20 Infectious disease input appreciated. Dr. Hansen recommended 7 days of IV cefepime. Midline for outpatient IV antibiotics. Chronic diastolic CHF Chronic lymphedema CXR (06/18): diffuse prominence of pulm interstitium could reflect mild edema. No consolidative airspace disease It appears patient was not following her prescribed Lasix administration instruction and was cutting down on the Lasix dose on her own. low-normal BP. Continue to monitor BP while on diuretics. Status post IV lasix, transitioned to PO lasix. continue PO lasix 20 mg BID midodrine; added 06/18 pm due to low BP dc 06/22 Iron deficiency anemia COPD, chronic (O2 at home PRN) Paroxysmal a-fib Obstructive sleep apnea Fibromyalgia h/o PE (June 2021) continue home meds VTE: Lovenox Code: Full Dispo: Home with home health 1 day.
[2023-06-25 04:18] LABS: Anion Gap 6.9 mEq/L (5.0-15.0); Magnesium 1.9 mg/dL (1.6-2.4); Potassium 3.9 mEq/L (3.5-5.1)
[2023-06-25 04:19] LABS: Absolute Basophils 0.1 K/uL (0-0.5); Absolute Eosinophils 0.6 K/uL (0-0.5); Absolute Lymphocytes (CBC) 1.3 K/uL (0.7-4.9); Absolute Monocytes 0.8 K/uL (0.1-1.3); Absolute Neutrophil 7.1 K/uL (1.8-8.0); Basophils % 0.7 % (0-1.3); Eosinophils % 5.9 % (0-4.4); Hematocrit 29.9 % (36.0-45.0); Hemoglobin 9.6 g/dL (12.0-15.0); MCH 26.2 pg (27.0-35.0); MCHC 32.2 g/dL (32.0-36.0); MCV 81.4 fL (80-100); MPV 8.7 fL (7.6-11.3); Monocytes % 8.4 % (3.3-12.3); Platelets 312 thou/uL (152-406); RBC Red Blood Cell Count 3.67 M/uL (3.86-4.86)
--- NOTE | 2023-06-25 09:34 | P.PN ---
Infectious Disease Progress Note Chief Complaint: Weakness, fever and delirium Subjective: Improving. In no apparent distress. Denies any new or worsening complaints. Continue current plan of care with Cefepime IV x 7 days. Physical Examination Temp Pulse Resp BP Pulse Ox 98 F 77 17 109/46 L 97 06/25/23 08:00 06/25/23 08:28 06/25/23 08:00 06/25/23 08:28 06/25/23 08:00 General: In no apparent distress, alert and Oriented x3 HEENT: Atraumatic, normocephalic. Cardiovascular: Regular rate/rhythm. BLE edema/lymphedema. Resp: Clear to auscultation bilaterally. unlabored respirations on room air. Integumentary: Moisture-associated Skin breakdown buttocks. BLE lymphedema. Neurological: Normal speech : suprapubic catheter Laboratory Data - Reviewed Microbiology Data - Reviewed Imagings Data: - Reviewed Medications List: Reviewed Assessment and Plan Problem List Catheter-Associated Urinary Tract Infection (CAUTI), POA Hx multi-drug resistant infections Lymphedema Chronic diastolic CHF COPD Atrial Fibraillation Fibromyalgia Catheter-Associated Urinary Tract Infection - POA - chronic suprapubic catheter -history of multi-drug resistant infections - Urine culture 06/18: 4+ gram negative rods. updated 06/22* Escherichia coli, Pseudomonas aeruginosa, Proteus mirabilis. - Blood cultures 06/18: no growth to date - levofloxacin (06/18-06/22) switched to Cefepime 06/22 following culture results. - leukocytosis resolved - afebrile Moisture-Associated skin breakdown vs Pressure Ulcers bilateral buttocks - Keep area clean and dry. Apply zinc-based barrier cream BID. - Pressure offloading measures Negative Flu/Covid/RSV Recommendations - uti: continue cefepime IV x 7 days (06/22- 06/29) - buttocks: Keep area clean and dry, apply zinc-based barrier cream BID. - Pressure offloading measures. - BLE lymphedema: wound care per wound care team. - physical therapy Case discussed with Sarah Killian
--- NOTE | 2023-06-25 17:51 | P.PN ---
Subjective Date of Service: 06/25/23 Chief Complaint: Weakness, fever and delirium Patient patient has no new complaint. She denies any shortness of breath. Physical Examination - Vital Signs Temperature: 98.3 F Blood Pressure: 113/54 Pulse: 64 Respirations: 19 Pulse Ox (%): 94 - Studies Microbiology Data (last 24 hrs): 06/19/23 16:41 Blood - Blood Aerobic Blood Culture - Final No growth in 5 days. 06/19/23 16:41 Blood - Blood Anaerobic Blood Culture - Final No growth in 5 days. 06/19/23 16:29 Blood - Blood Aerobic Blood Culture - Final No growth in 5 days. 06/19/23 16:29 Blood - Blood Anaerobic Blood Culture - Final No growth in 5 days. Assessment And Plan - Plan Physical Exam: GEN: Alert, oriented, NAD. CV: Regular rate and rhythm, +b/l chronic lymphedema Pulm: Nonlabored breathing, diminished at bases bilaterally ABD: Soft, nontender, nondistended Integumentary: Bilateral venous stasis dermatitis of lower extremities. Neuro: Normal speech, normal affect chronic suprapubic cath in place. vitals reviewed Problem List: Catheter-associated (suprapubic cath) UTI, multiple MDR organisms hx of frequent MDR UTIs Chronic diastolic CHF Chronic lymphedema Iron deficiency anemia COPD, chronic (O2 at home PRN) Paroxysmal a-fib Obstructive sleep apnea Fibromyalgia h/o PE (June 2021) Catheter-associated (suprapubic cath) UTI, multiple MDR organisms hx of frequent MDR UTIs Patient with multiple MDR UTIs over past few years - recurrent proteus mirabilis suprapubic cath changed on 06/18/23 per patient Blood cx (06/18): NGTD urine cx (06/18): resulted on 06/22 - Proteus mirabilis, pseudomonas aeruginosa, E. coli; susceptible to cefepime/merrem/zosyn Given IV cefepime / PO doxy x1 in ED on 06/18 On levaquin (06/18-) Afebrile since 06/19, leukocytosis resolved 06/20 Infectious disease is following. Dr. Hansen recommended 7 days of IV cefepime. Antibiotic end date is 06/28. Midline for outpatient IV antibiotics. Chronic diastolic CHF Chronic lymphedema Patient appears compensated for CHF. It appears patient was not following her prescribed Lasix administration instruction and was cutting down on the Lasix dose on her own. low-normal BP. Continue to monitor BP while on diuretics. Status post IV lasix, transitioned to PO lasix. continue PO lasix 20 mg BID midodrine; added 06/18 pm due to low BP dc 06/22 Iron deficiency anemia COPD, chronic (O2 at home PRN) Paroxysmal a-fib Obstructive sleep apnea Fibromyalgia h/o PE (June 2021) continue home meds VTE: Lovenox Code: Full Dispo: Home with home health. SW/CM is arranging for home health with IV antibiotics.
--- NOTE | 2023-06-27 08:47 | P.PN ---
Infectious Disease Progress Note Subjective: Improving. No new changes. No new/worsening complaints. Continue current plan of care. On day 5/ of Cefepime IV. Physical Examination Temp Pulse Resp BP Pulse Ox 97.1 F 70 15 112/42 L 96 06/27/23 08:00 06/27/23 08:00 06/27/23 08:00 06/27/23 08:00 06/27/23 08:00 General: In no apparent distress, alert and Oriented x3 HEENT: Atraumatic, normocephalic. Cardiovascular: Regular rate/rhythm. BLE edema/lymphedema. Resp: Clear to auscultation bilaterally. unlabored respirations on room air. Integumentary: Moisture-associated Skin breakdown buttocks. BLE lymphedema. Neurological: Normal speech : suprapubic catheter Laboratory Data - Reviewed Microbiology Data - Reviewed Imagings Data: - Reviewed Medications List: Reviewed Assessment and Plan Problem List Catheter-Associated Urinary Tract Infection (CAUTI), POA Hx multi-drug resistant infections Lymphedema Chronic diastolic CHF COPD Atrial Fibraillation Fibromyalgia Catheter-Associated Urinary Tract Infection (POA) - chronic suprapubic catheter -history of multi-drug resistant infections - Urine culture 06/18: 4+ gram negative rods. updated 06/22* Escherichia coli, Pseudomonas aeruginosa, Proteus mirabilis. - Blood cultures 06/18: no growth to date - levofloxacin (06/18-06/22) switched to Cefepime 06/22 following culture results. - leukocytosis resolved - afebrile Moisture-Associated skin breakdown vs Pressure Ulcers bilateral buttocks - Keep area clean and dry. Apply zinc-based barrier cream BID. - Pressure offloading measures Negative Flu/Covid/RSV Recommendations - uti: continue cefepime IV x 7 days (06/22- 06/29) - buttocks: Keep area clean and dry, apply zinc-based barrier cream BID. - Pressure offloading measures. - BLE lymphedema: wound care per wound care team. - physical therapy Case discussed with Sarah Killian
[2023-06-27] MEDS: NYSTATIN 500,000 UNIT/5 ML UDC PO SCH (20:56)
[2023-06-27] MEDS: HYDROCODONE/APAP 5/325 MG TAB PO PRN (20:56)
--- NOTE | 2023-06-28 18:58 | P.PN ---
Subjective Date of Service: 06/26/23 Chief Complaint: Weakness, fever and delirium Patient has no new complain. No issues overnight. Physical Examination - Vital Signs Temperature: 97.6 F Blood Pressure: 117/47 Pulse: 86 Respirations: 15 Pulse Ox (%): 96 Assessment And Plan - Plan Physical Exam: GEN: Alert, oriented, NAD. CV: Regular rate and rhythm, +b/l chronic lymphedema Pulm: Nonlabored breathing, diminished at bases bilaterally ABD: Soft, nontender, nondistended Integumentary: Bilateral venous stasis dermatitis of lower extremities. Neuro: Normal speech, normal affect chronic suprapubic cath in place. vitals reviewed Problem List: Catheter-associated (suprapubic cath) UTI, multiple MDR organisms hx of frequent MDR UTIs Chronic diastolic CHF Chronic lymphedema Iron deficiency anemia COPD, chronic (O2 at home PRN) Paroxysmal a-fib Obstructive sleep apnea Fibromyalgia h/o PE (June 2021) Catheter-associated (suprapubic cath) UTI, multiple MDR organisms hx of frequent MDR UTIs Patient with multiple MDR UTIs over past few years - recurrent proteus mirabilis suprapubic cath changed on 06/18/23 per patient Blood cx (06/18): NGTD urine cx (06/18): resulted on 06/22 - Proteus mirabilis, pseudomonas aeruginosa, E. coli; susceptible to cefepime/merrem/zosyn Given IV cefepime / PO doxy x1 in ED on 06/18 On levaquin (06/18-) Afebrile since 06/19, leukocytosis resolved 06/20 Infectious disease is following. Dr. Hansen recommended 7 days of IV cefepime. Antibiotic end date is 06/28. Chronic diastolic CHF Chronic lymphedema Patient appears compensated for CHF. It appears patient was not following her prescribed Lasix administration instruction and was cutting down on the Lasix dose on her own. low-normal BP. Continue to monitor BP while on diuretics. Status post IV lasix, transitioned to PO lasix. continue PO lasix 20 mg BID midodrine; added 06/18 pm due to low BP dc 06/22 Iron deficiency anemia COPD, chronic (O2 at home PRN) Paroxysmal a-fib Obstructive sleep apnea Fibromyalgia h/o PE (June 2021) continue home meds VTE: Lovenox Code: Full Dispo: Home with home health.
--- NOTE | 2023-06-28 19:00 | P.PN ---
Subjective Date of Service: 06/27/23 Chief Complaint: Weakness, fever and delirium Patient denies any complaint. She is eating well. Physical Examination - Vital Signs Temperature: 97.6 F Blood Pressure: 117/47 Pulse: 86 Respirations: 15 Pulse Ox (%): 96 Assessment And Plan - Plan Physical Exam: GEN: Alert, oriented, NAD. CV: Regular rate and rhythm, +b/l chronic lymphedema Pulm: Nonlabored breathing, diminished at bases bilaterally ABD: Soft, nontender, nondistended Integumentary: Bilateral venous stasis dermatitis of lower extremities. Neuro: Normal speech, normal affect chronic suprapubic cath in place. vitals reviewed Problem List: Catheter-associated (suprapubic cath) UTI, multiple MDR organisms hx of frequent MDR UTIs Chronic diastolic CHF Chronic lymphedema Iron deficiency anemia COPD, chronic (O2 at home PRN) Paroxysmal a-fib Obstructive sleep apnea Fibromyalgia h/o PE (June 2021) Catheter-associated (suprapubic cath) UTI, multiple MDR organisms hx of frequent MDR UTIs Patient with multiple MDR UTIs over past few years - recurrent proteus mirabilis suprapubic cath changed on 06/18/23 per patient Blood cx (06/18): NGTD urine cx (06/18): resulted on 06/22 - Proteus mirabilis, pseudomonas aeruginosa, E. coli; susceptible to cefepime/merrem/zosyn Given IV cefepime / PO doxy x1 in ED on 06/18 On levaquin (06/18-) Afebrile since 06/19, leukocytosis resolved 06/20 Infectious disease is following. Dr. Hansen recommended 7 days of IV cefepime. Antibiotic end date is 06/28. Midline for outpatient IV antibiotics. Chronic diastolic CHF Chronic lymphedema Patient appears compensated for CHF. It appears patient was not following her prescribed Lasix administration instruction and was cutting down on the Lasix dose on her own. low-normal BP. Continue to monitor BP while on diuretics. Status post IV lasix, transitioned to PO lasix. continue PO lasix 20 mg BID Iron deficiency anemia COPD, chronic (O2 at home PRN) Paroxysmal a-fib Obstructive sleep apnea Fibromyalgia h/o PE (June 2021) continue home meds VTE: Lovenox Code: Full Dispo: Home with home health.
--- NOTE | 2023-06-28 19:02 | P.PN ---
Subjective Date of Service: 06/28/23 Chief Complaint: Weakness, fever and delirium Patient patient has no new complaint. No issues overnight. Physical Examination - Vital Signs Temperature: 97.6 F Blood Pressure: 117/47 Pulse: 86 Respirations: 15 Pulse Ox (%): 96 Assessment And Plan - Plan Physical Exam: GEN: Alert, oriented, NAD. CV: Regular rate and rhythm, +b/l chronic lymphedema Pulm: Nonlabored breathing, diminished at bases bilaterally ABD: Soft, nontender, nondistended Integumentary: Bilateral venous stasis dermatitis of lower extremities. Neuro: Normal speech, normal affect chronic suprapubic cath in place. vitals reviewed Problem List: Catheter-associated (suprapubic cath) UTI, multiple MDR organisms hx of frequent MDR UTIs Chronic diastolic CHF Chronic lymphedema Iron deficiency anemia COPD, chronic (O2 at home PRN) Paroxysmal a-fib Obstructive sleep apnea Fibromyalgia h/o PE Catheter-associated (suprapubic cath) UTI, multiple MDR organisms hx of frequent MDR UTIs Patient with multiple MDR UTIs over past few years - recurrent proteus mirabilis suprapubic cath changed on 06/18/23 per patient Blood cx (06/18): NGTD urine cx (06/18): resulted on 06/22 - Proteus mirabilis, pseudomonas aeruginosa, E. coli; susceptible to cefepime/merrem/zosyn Given IV cefepime / PO doxy x1 in ED on 06/18 On levaquin (06/18-) Afebrile since 06/19, leukocytosis resolved 06/20 Infectious disease is following. Dr. Hansen recommended 7 days of IV cefepime. Antibiotic end date is 06/28. Midline for outpatient IV antibiotics. Chronic diastolic CHF Chronic lymphedema Patient appears compensated for CHF. It appears patient was not following her prescribed Lasix administration instruction and was cutting down on the Lasix dose on her own. low-normal BP. Continue to monitor BP while on diuretics. Status post IV lasix, transitioned to PO lasix. continue PO lasix 20 mg BID Iron deficiency anemia COPD, chronic (O2 at home PRN) Paroxysmal a-fib Obstructive sleep apnea Fibromyalgia h/o PE (June 2021) continue home meds VTE: Lovenox Code: Full Dispo: Home with home health. SW/CM is arranging for home health with IV antibiotics.
[2023-06-29 17:18] VITALS: BMI 42.6
--- NOTE | 2023-06-29 18:10 | P.PN ---
Subjective Date of Service: 06/29/23 Chief Complaint: Weakness, fever and delirium Patient is complaining of bladder spasms. She denies any other complaint. Physical Examination - Vital Signs Temperature: 97.6 F Blood Pressure: 117/47 Pulse: 86 Respirations: 15 Pulse Ox (%): 96 Assessment And Plan - Plan Physical Exam: GEN: Alert, oriented, NAD. CV: Regular rate and rhythm, +b/l chronic lymphedema Pulm: Nonlabored breathing, diminished at bases bilaterally ABD: Soft, nontender, nondistended Integumentary: Bilateral venous stasis dermatitis of lower extremities. Neuro: Normal speech, normal affect Suprapubic cath in place. vitals reviewed Problem List: Catheter-associated (suprapubic cath) UTI, multiple MDR organisms hx of frequent MDR UTIs Chronic diastolic CHF Chronic lymphedema Iron deficiency anemia COPD, chronic (O2 at home PRN) Paroxysmal a-fib Obstructive sleep apnea Fibromyalgia h/o PE Catheter-associated (suprapubic cath) UTI, multiple MDR organisms hx of frequent MDR UTIs Patient with multiple MDR UTIs over past few years - recurrent proteus mirabilis suprapubic cath changed on 06/18/23 per patient Blood cx (06/18): NGTD urine cx (06/18): resulted on 06/22 - Proteus mirabilis, pseudomonas aeruginosa, E. coli; susceptible to cefepime/merrem/zosyn Given IV cefepime / PO doxy x1 in ED on 06/18 On levaquin (06/18-) Afebrile since 06/19, leukocytosis resolved 06/20 Infectious disease is following. Dr. Hansen recommended 7 days of IV cefepime. Patient completed antibiotics Chronic diastolic CHF Chronic lymphedema Patient appears compensated for CHF. It appears patient was not following her prescribed Lasix administration instruction and was cutting down on the Lasix dose on her own. low-normal BP. Continue to monitor BP while on diuretics. Status post IV lasix, transitioned to PO lasix. continue PO lasix 20 mg BID Iron deficiency anemia COPD, chronic (O2 at home PRN) Paroxysmal a-fib Obstructive sleep apnea Fibromyalgia h/o PE (June 2021) continue home meds VTE: Lovenox Code: Full Dispo: Discharge in a.m. to home with home health.
[2023-06-30 04:12] VITALS: O2SAT 94
[2023-06-30 06:04] LABS: Absolute Basophils 0.1 K/uL (0-0.5); Absolute Eosinophils 0.7 K/uL (0-0.5); Absolute Lymphocytes (CBC) 1.6 K/uL (0.7-4.9); Absolute Monocytes 0.9 K/uL (0.1-1.3); Absolute Neutrophil 7.9 K/uL (1.8-8.0); Basophils % 0.7 % (0-1.3); Eosinophils % 5.9 % (0-4.4); Hematocrit 31.6 % (36.0-45.0); Hemoglobin 10.1 g/dL (12.0-15.0); Lymphocytes % 14.6 % (15.3-44.8); MCH 26.1 pg (27.0-35.0); MCHC 31.9 g/dL (32.0-36.0); MCV 81.8 fL (80-100); MPV 8.3 fL (7.6-11.3); Monocytes % 8.4 % (3.3-12.3); Neutrophils % 70.4 % (41.7-73.7); Platelets 414 thou/uL (152-406); RBC Red Blood Cell Count 3.87 M/uL (3.86-4.86); Red Cell Distribution Width 18.1 % (12.1-15.2)
--- NOTE | 2023-06-30 08:56 | P.PN ---
Infectious Disease Progress Note Subjective: Improving. No acute events over the weekend. Denies any new/worsening complaints. Completed 7 days IV cefepime. Pending discharge home. Physical Examination Temp Pulse Resp BP Pulse Ox 98.5 F 69 18 113/59 L 94 06/30/23 04:00 06/30/23 08:23 06/30/23 04:00 06/30/23 08:23 06/30/23 04:00 General: In no apparent distress, alert and Oriented x3 HEENT: Atraumatic, normocephalic. Cardiovascular: Regular rate/rhythm. BLE edema/lymphedema. Resp: Clear to auscultation bilaterally. unlabored respirations on room air. Integumentary: Moisture-associated Skin breakdown buttocks. BLE lymphedema. Neurological: Normal speech : suprapubic catheter Laboratory Data - Reviewed Microbiology Data - Reviewed Imagings Data: - Reviewed Medications List: Reviewed Assessment and Plan Problem List Catheter-Associated Urinary Tract Infection (CAUTI), POA Hx multi-drug resistant infections Lymphedema Chronic diastolic CHF COPD Atrial Fibraillation Fibromyalgia Catheter-Associated Urinary Tract Infection (POA) - chronic suprapubic catheter -history of multi-drug resistant infections - Urine culture 06/18: Escherichia coli, Pseudomonas aeruginosa, Proteus mirabilis. - Blood cultures 06/18: no growth to date - levofloxacin (06/18-06/22) switched to Cefepime 06/22 following culture results. - leukocytosis resolved - afebrile - Completed 7 days Cefepime (06/22-06/29) Moisture-Associated skin breakdown vs Pressure Ulcers bilateral buttocks - Keep area clean and dry. Apply zinc-based barrier cream BID. - Pressure offloading measures Negative Flu/Covid/RSV Recommendations - uti: Completed 7 days Cefepime (06/22-06/29). - buttocks: Keep area clean and dry, apply zinc-based barrier cream BID. - Pressure offloading measures. - BLE lymphedema: wound care per wound care team. - physical therapy - follow up with PCP as outpatient Case discussed with Sarah Killian
--- NOTE | 2023-06-30 08:57 | P.DS ---
Admission Date: 06/19/23 Discharge Date: 06/30/23 Disposition: DC HOME/HOME HEALTH CARE Discharge Condition: FAIR Reason for Admission: Weakness, fever and delirium Brief History of Present Illness: 68-year-old female past medical history of hypertension, COPD supposed to be on home O2 but uses as needed, chronic lower extremity lymphedema, previously followed at wound clinic but stopped following, presented because of weakness. She reported she felt confused, and experienced fever and chills. She denies any nausea vomiting or cough. She states she was previously taking Lasix but stopped taking due to what she describes as bladder overloadhaving more incontinence. She denies worsening of her leg swelling. She denies any chest pain or palpitation. On arrival in the ED vital signs were stable, afebrile, WBC was 20.8 K with left shift, BMP was unremarkable except for creatinine of 1.29. Lactate was normal. Chest x-ray showed mild interstitial pulmonary edema with vascular prominence. EKG showed no ST segment changes. Echo from a 6 months ago shows A-fib with EF of 55% but is also noted mild mitral regurgitation. Patient was hospitalized for further management. Hospital Course: Diagnosis Catheter-associated (suprapubic cath) UTI, multiple MDR organisms hx of frequent MDR UTIs Chronic diastolic CHF Chronic lymphedema Iron deficiency anemia COPD, chronic (O2 at home PRN) Paroxysmal a-fib Obstructive sleep apnea Fibromyalgia h/o PE Catheter-associated (suprapubic cath) UTI, multiple MDR organisms hx of frequent MDR UTIs Patient with multiple MDR UTIs over past few years - recurrent proteus mirabilis suprapubic cath changed on 06/18/23 per patient Blood cx (06/18): NGTD urine cx (06/18): resulted on 06/22 - Proteus mirabilis, pseudomonas aeruginosa, E. coli; susceptible to cefepime/merrem/zosyn Given IV cefepime / PO doxy x1 in ED on 06/18 On levaquin (06/18-) Afebrile since 06/19, leukocytosis resolved 06/20 Infectious disease evaluated patient. Dr. Hansen recommended 7 days of IV cefepime. Patient completed antibiotics. Patient with stable vitals, overall clinically improved and deemed stable for discharge Chronic diastolic CHF Chronic lymphedema Patient appeared compensated for CHF. It appears patient was not following her prescribed Lasix administration instruction and was cutting down on the Lasix dose on her own. low-normal BP. Continue to monitor BP while on diuretics. Status post IV lasix, transitioned to PO lasix. continued PO lasix 20 mg BID Iron deficiency anemia COPD, chronic (O2 at home PRN) Paroxysmal a-fib Obstructive sleep apnea Fibromyalgia h/o PE (June 2021) continued home meds Vital Signs/Physical Exam: Temp Pulse Resp BP Pulse Ox 98.5 F 69 18 113/59 L 94 06/30/23 08:00 06/30/23 08:23 06/30/23 08:00 06/30/23 08:23 06/30/23 08:00 General: Alert, In no apparent distress, Oriented x3, Obese HEENT: Mucous membr. moist/pink Neck: Supple, JVD not distended Respiratory: Clear to auscultation bilaterally, Normal air movement Cardiovascular: Regular rate/rhythm, Normal S1 S2 Gastrointestinal: Soft and benign, Non-distended Musculoskeletal: Other (Bilateral lower extremity lymphedema) Integumentary: Other (Bilateral venous stasis dermatitis) Neurological: Normal speech, Normal strength at 5/5 x4 extr Laboratory Data at Discharge: WBC 11.20 thou/uL (4.3-10.9) H 06/30/23 05:34 Hgb 10.1 g/dL (12.0-15.0) L 06/30/23 05:34 Hct 31.6 % (36.0-45.0) L 06/30/23 05:34 Plt Count 414 thou/uL (152-406) H 06/30/23 05:34 PT 13.7 SECONDS (9.5-12.5) H 06/19/23 16:29 INR 1.25 06/19/23 16:29 APTT 37.2 SECONDS (24.3-36.9) H 06/19/23 16:29 Sodium 140 mEq/L (136-145) 06/30/23 05:34 Potassium 4.0 mEq/L (3.5-5.1) 06/30/23 05:34 BUN 29 mg/dL (7-18) H 06/30/23 05:34 Creatinine 1.08 mg/dL (0.55-1.02) H 06/30/23 05:34 Glucose 91 mg/dL (74-106) 06/30/23 05:34 Magnesium 1.9 mg/dL (1.6-2.4) 06/25/23 03:23 Total Bilirubin 0.8 mg/dL (0.2-1.0) 06/20/23 03:11 AST 11 U/L (15-37) L 06/20/23 03:11 ALT < 10 U/L (13-56) L 06/20/23 03:11 Alkaline Phosphatase 63 U/L (45-117) 06/20/23 03:11 Home Medications: Lovastatin 20 mg PO BEDTIME 06/30/21 oxyBUTYnin chloride [Oxybutynin Chloride] 5 mg PO BID PRN 06/30/21 Benzonatate [Tessalon Perle*] 100 mg PO TID PRN #30 cap 11/02/22 Furosemide [Lasix*] 20 mg PO BID #60 tab 11/02/22 Diphenhydramine [Benadryl*] 25 mg PO BEDTIME 06/19/23 Hydrocodone 7.5/APAP 325 [Bastrop 7.5/325 mg] 1 tab PO Q6H PRN #20 tab 06/30/23 Kevin [Kevin*] 1 pkt PO BID #30 packet 06/30/23 Nystatin 5 ml PO QID #237 ml 06/30/23 New Medications: Kevin [Kevin*] 1 pkt PO BID #30 packet Hydrocodone 7.5/APAP 325 [Bastrop 7.5/325 mg] 1 tab PO Q6H PRN #20 tab PRN Reason: Pain Nystatin 5 ml PO QID #237 ml Physician Discharge Instructions: Physician discharge instructions: Patient presented with generalized weakness, dyspnea, subjective fever/chills and was found to have a catheter-associated UTI POA growing multiple multi-drug resistant organisms Proteus mirabilis, pseudomonas aeruginosa, E. coli. Patient received a few days of empiric levaquin and felt some improvement of symptoms. Urine culture was noted to grow multiple MDR organisms resistant to levaquin. Patient completed 7 days of IV Cefepime based on organisms sensitivity. Infectious Disease specialist helped manage the UTI. CXR on admission noted some mild pulm edema. Patient received IV lasix as BP allowed and felt her breathing improved. Patient was also started on midodrine to improve BP / allow for further diuresis. Advised to check blood pressure around the same time each day. Advised to keep daily log to take to follow up appointments to help with adjustments of medications. Advise to continue lasix as prescribed on discharge. Medications: Follow up: PCP 3-5 days with diary of BP readings please call to schedule / confirm appointments Followup: Luna Saunders FNP [Primary Care Provider] - Time spent managing pt's care (in minutes): 38
[2023-06-30 20:57] VITALS: BP 110/73; TEMP 97.9
== END 2023-06-30 21:10 | disposition home health service (06) | DRG 698 ==
LOC: ER 15:45 → ERHOLD 19:21 → 2ND 20:39
PROVIDERS: ADMIT Internal Medicine; ATTEND Internal Medicine
DX: T83.510A Infection and inflammatory reaction due to cystostomy catheter, initial encounter (principal); G93.41 Metabolic encephalopathy; I50.32 Chronic diastolic (congestive) heart failure; I87.331 Chronic venous hypertension (idiopathic) with ulcer and inflammation of right lower extremity; N39.0 Urinary tract infection, site not specified; Z68.44 Body mass index [BMI] 60.0-69.9, adult; I13.0 Hypertensive heart and chronic kidney disease with heart failure and stage 1 through stage 4 chronic kidney disease, or unspecified chronic kidney disease; F05 Delirium due to known physiological condition; Z16.29 Resistance to other single specified antibiotic; E66.01 Morbid (severe) obesity due to excess calories; N18.9 Chronic kidney disease, unspecified; D63.1 Anemia in chronic kidney disease; M79.7 Fibromyalgia; E78.5 Hyperlipidemia, unspecified; G89.4 Chronic pain syndrome; I89.0 Lymphedema, not elsewhere classified; I48.0 Paroxysmal atrial fibrillation; I34.0 Nonrheumatic mitral (valve) insufficiency; D50.9 Iron deficiency anemia, unspecified; M19.90 Unspecified osteoarthritis, unspecified site; G47.33 Obstructive sleep apnea (adult) (pediatric); I87.2 Venous insufficiency (chronic) (peripheral); J44.9 Chronic obstructive pulmonary disease, unspecified; F17.210 Nicotine dependence, cigarettes, uncomplicated; B96.4 Proteus (mirabilis) (morganii) as the cause of diseases classified elsewhere; B96.20 Unspecified Escherichia coli [E. coli] as the cause of diseases classified elsewhere; B96.5 Pseudomonas (aeruginosa) (mallei) (pseudomallei) as the cause of diseases classified elsewhere; Z88.1 Allergy status to other antibiotic agents; Z88.7 Allergy status to serum and vaccine; Z88.5 Allergy status to narcotic agent; Z88.2 Allergy status to sulfonamides; Z60.2 Problems related to living alone; Z88.8 Allergy status to other drugs, medicaments and biological substances; Z98.84 Bariatric surgery status; Z79.899 Other long term (current) drug therapy; Z86.711 Personal history of pulmonary embolism
CPT/HCPCS: 0241U; 36415; 71045; 80048; 80053; 81001; 82947; 83605; 83735; 84443; 84484; 85025; 85610; 85730; 87040; 87077; 87086; 87088; 87186; 93005; 97110; 97116; 97161; 97165; 97530; 99285; J0692; J1650; J1940; J2270; J3475; P9047